=== PATIENT | female | born 1950 | race Caucasian/White ===

== ENCOUNTER → 2017-09-23 16:36 | Outpatient (CLI) | payer MEDICARE, SELFPAY ==
--- NOTE | 2017-09-23 16:39 | CT_ITS ---
STUDY: CT CHEST WITH CONTRAST REASON FOR EXAM: Female, 66 years old. RADIATION DOSAGE (If Supplied By Facility): CTDIvol = ( 15.06 ) mGy, DLP = ( 714.89 ) mGycm TECHNIQUE: Transaxial imaging was performed following intravenous administration of 100 ml of Isovue 300 contrast material. Individualized dose optimization techniques were used for this CT. COMPARISON: None. FINDINGS: : TRACHEA, THYROID, ESOPHAGUS: No tracheomalacia,stricture or wall thickening. Thyroid and esophagus are normal CARDIOVASCULAR SYSTEM:The thoracic aorta is normal with no aneurysm, dissection or developmental anomalies. The pulmonary trunk and the left and right pulmonary arteries and their lobar and segmental branches do not show any abnormal and persistent filling defects in them. There is therefore no evidence of pulmonary embolism. The heart is normal. There are no venous anomalies SONJA AND LYMPH NODES: No hilar masses and no mediastinal, hilar, axillary or supraclavicular adenopathy LUNGS, LOW-ATTENUATION: Centrilobular emphysematous changes in both upper. Paraseptal emphysematous changes in both apices. LUNGS, HIGH ATTENUATION: The 8 mm nodular density in the right middle lobe seen on the last examination of August 09, 2016 has increased in size to 1.5 cm. 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 The lesion has a slightly nodular contour. Two 4.7 and 5.2 mm nodules are in the right lower lobe. An 8.5 mm nodule is also seen in the right lower lobe. Two 4 mm nodules are in the right upper lobe a 6 mm subpleural nodule is in the left lower lobe. LUNGS, MOSAIC/CRAZY PAVING: Not evident PLEURA AND CHEST WALL: No plural effusions, pneumothoraces,rib fractures or any osteolytic/osteoblastic changes . The soft tissue chest wall including the breasts are normal UPPER ABDOMEN: Unremarkable . CT/Chest WITH Contrast IMPRESSION: An 8 mm nodule in the right middle lobe seen in the last examination of August 09, 2016 has doubled in size to 1.5 cm in today's study. 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 Other small subcentimeter nodules in both lungs also seen previously have not changed. N.B. : Tre Naidu, confirmed on 09/24/2017 22:27:32 (ET) that the referring physician received the results and did not require a verbal consultation. Electronically Signed: Vasu MooneyJayce, at 1:31 EDT Tel , Service support , N.B. : Tre Naidu, confirmed on 09/24/2017 22:27:32 (ET) that the referring physician received the results and did not require a verbal consultation.
[2017-09-23 16:55] LABS: CREATININE FINGERSTICK 0.9 mg/dL (0.55-1.02); EGFR FINGERSTICK > 60.0000 mL/min (>60)
== END ==
PROVIDERS: Family Provider Nurse Practitioner; PCP Nurse Practitioner; Visit Provider Nurse Practitioner
DX: R91.1 Solitary pulmonary nodule (principal)
CPT/HCPCS: 71260; Q9967

== ENCOUNTER → 2017-10-07 08:22 | Outpatient (CLI) | payer MEDICARE, SELFPAY ==
--- NOTE | 2017-10-07 07:00 | PET_ITS ---
EXAMINATION: FDG PET/CT INDICATIONS: A 66-year-old female with reported history of carcinoma of the breast presenting for restaging examination and evaluation of pulmonary nodularity. COMPARISON EXAMINATION: CT of the chest report dated 09/23/17 TECHNIQUE: Following the intravenous administration of 15.67 mCi of F-18 deoxyglucose via the right wrist, multiplanar image acquisitions of the neck, chest, abdomen and pelvis to level of mid thigh, obtained at one hour post radiopharmaceutical administration contemporaneously interpreted with the current CT of the neck, chest, abdomen and pelvis to level of mid thigh, dated 10/07/[address] of the chest report dated 09/23/17 reveal: SERUM GLUCOSE LEVEL: 93 mg/dl. HEIGHT: 63 inches. WEIGHT: 225 lbs. FINDINGS: 1. There is no quantitative scintigraphic evidence of abnormal increased glucose metabolism within the context of the right hemithorax pulmonary parenchyma to correlate with structural changes noted on review of CT of the thorax dated 09/23/2017. 2. Normal physiologic distribution of the radiopharmaceutical is apparent in the hepatic and splenic parenchyma, both renal units, bladder and visualized intestinal tract. The visualized portion of the cerebral cortex demonstrate symmetric and preserved glucose metabolism. Diffuse radiopharmaceutical concentration is noted in all four quadrants of the abdomen and pelvis. Prominent glucose concentration appears evident in the lower perineum which appears contiguous to apparent placement. Pertinent CT findings are as follows: CHEST: There is atherosclerotic calcification defined in the thoracic aorta without evidence of dilatation-aneurysm formation. Coronary arterial calcification is observed. Apparent postsurgical change is manifest within the left breast. Subcentimeter bilateral axillary soft tissue densities are non-glucose avid. Centrilobular emphysematous change is noted in the bilateral upper lung zones. ABDOMEN AND PELVIS: There is atherosclerotic calcification defined in the abdominal aorta without evidence of dilatation-aneurysm formation. Pelvic arterial calcification is observed. The uterus appears surgically absent. Right-left inguinal soft tissue densities with fatty hilus formation are ametabolic. SKELETAL: Degenerative changes are noted in the cervical, thoracic and lumbar spine. Diffuse demineralization is noted throughout the axial skeletal structures. PET/PET/CT Tumor Base -Thigh Init IMPRESSION: 1. NEGATIVE EXAMINATION. There is no definitive quantitative scintigraphic evidence of recurrent-metastatic/viable neoplasm. 2. There is no quantitative scintigraphic evidence of abnormal increased glucose metabolism within the context of the right lower anteromedial hemithorax pulmonary parenchyma, right middle lobe to correlate with a non-calcified approximately 14.5-mm density noted on review of CT of the thorax dated 10/07/17. 3. Anatomic stability may be ensured in the ametabolic right hemithorax pulmonary parenchymal density with repeat CT of the thorax in three months. (Alison, Seminars in Thoracic and Cardiovascular Surgery 14:292, 2002). Electronic Signature Hossein Oneill D.O. Electronically Signed: Hossein Oneill DO at 23:10 EDT Tel , Service support ,
== END ==
PROVIDERS: Family Provider Nurse Practitioner; PCP Nurse Practitioner; Visit Provider Nurse Practitioner
DX: R91.8 Other nonspecific abnormal finding of lung field (principal); Z85.3 Personal history of malignant neoplasm of breast
CPT/HCPCS: 78815; A9552

== ENCOUNTER → 2017-11-18 13:28 | Outpatient (CLI) | payer MEDICARE, SELFPAY | PROVIDERS: Family Provider Nurse Practitioner; PCP Nurse Practitioner; Referring Provider Internal Medicine Medical Oncology; Visit Provider Internal Medicine Medical Oncology | DX: Z12.31 Encounter for screening mammogram for malignant neoplasm of breast (principal) | CPT/HCPCS: 77063; 77067 ==

== ENCOUNTER → 2017-12-17 09:40 | Outpatient (CLI) | payer MEDICARE, SELFPAY ==
--- NOTE | 2017-12-17 09:42 | RAD_ITS ---
STUDY: X-RAY - RIGHT KNEE REASON FOR EXAM: Female, 67 years old. Pain TECHNIQUE: 4 view(s) of the knee. COMPARISON: 2014 FINDINGS: Normal visualized distal femur. Normal visualized proximal tibia and fibula. Normal proximal tibiofibular articulation. There is mild degenerative arthrosis of the medial femorotibial compartment. Normal lateral femorotibial compartment. There is mild degenerative arthrosis of the patellofemoral articulation. The soft tissue structures are unremarkable. RAD/Knee 4 or More Views IMPRESSION: Degenerative arthrosis. Electronically Signed: Abiodun Amos MD at 16:48 EDT , Service support ,
== END ==
PROVIDERS: Family Provider Nurse Practitioner; PCP Nurse Practitioner; Visit Provider Nurse Practitioner Gerontology
DX: M25.561 Pain in right knee (principal)
CPT/HCPCS: 73564

== ENCOUNTER → 2018-02-12 07:05 | Outpatient (CLI) | payer MEDICARE, SELFPAY ==
--- NOTE | 2018-02-12 07:09 | CT_ITS ---
STUDY: CT CHEST WITHOUT CONTRAST REASON FOR EXAM: Female, [address] of the chest. PET scan normal. Breast cancer 5 years ago with left lumpectomy. RADIATION DOSAGE (If Supplied By Facility): CTDIvol = ( 20.15 ) mGy, DLP = ( 770.34 ) mGycm TECHNIQUE: Transaxial imaging was performed without the administration of intravenous contrast material. Individualized dose optimization techniques were used for this CT. COMPARISON: CT chest August 09, 2016. CT chest September 23, 2017. CT chest December 16, 2012. PET CT scan October 07, 2017. FINDINGS: Noncalcified mildly lobulated right middle lobe lung nodule measuring 1.5 x 1.3 cm, using lung windows, on the present scan, 1.2 x 1.1 cm on the study of September 2017 and only 0.7 x 0.6 cm on the study of August 2016. A nodule was not present on the study of December 16, 2012. Diffuse emphysematous changes. The heart is not enlarged. Coronary artery calcifications. No pericardial effusion. Scattered subcentimeter mediastinal lymph nodes which are not pathologic by size criteria. Normal hilar regions. Normal unenhanced pulmonary arteries. There is atherosclerotic calcification of the thoracic aorta. Normal osseous structures. There is no demonstrated abnormality of the visualized upper abdomen. CT/Chest without Contrast IMPRESSION: Continued increase in the size of a noncalcified right middle lobe lung nodule. No evidence of malignancy on recent PET CT scan. Recommend pulmonary consult. Emphysematous changes. Coronary artery calcifications. Electronically Signed: Dayday Jurado MD at 2:50 EST , Service support ,
== END ==
PROVIDERS: Family Provider Nurse Practitioner; PCP Nurse Practitioner; Referring Provider Internal Medicine Medical Oncology; Visit Provider Internal Medicine Medical Oncology
DX: R91.8 Other nonspecific abnormal finding of lung field (principal)
CPT/HCPCS: 71250

== ENCOUNTER → 2018-04-30 08:32 | Outpatient (CLI) | payer MEDICARE, SELFPAY ==
[2018-04-24 13:56] VITALS: BMI 41.4
[2018-04-30] VITALS (10 sets, daily range): BP systolic 143–211; BP diastolic 65–94; PULSE 75–84; RESP 15–23; TEMP 36.5; O2SAT 98–100; BMI 41.3
--- NOTE | 2018-04-30 | LUNB_PTH ---
PATIENT: ZEINAB HULL LOC: [place] U#:[id number] AGE/SX: 74/F ROOM: RE04/30/[address]: Dr. Guido Hogue MD : 1950 BED: DIS: SPEC #: [id number] RECD: 04/30/18 11:00 STATUS: JIN MEET #: [id number] IAN: 04/30/18 00:[address]: Guido Hogue DEPT: SURGICAL PATHOLOGY RECD BY: Espinoza Hunt ENTERED: 04/30/18 11:01 SP TYPE: LUNG BX OTHR DR: Sandra Degroot, ELECTROCARDIOGRAPHIC TECHNICIAN-C Tissues: Lung, NOS Procedures: Pap Stain (control) Special Stain Group II Surgery Specimen Level IV Diff Quik Stain (control) HEADER OPERATION: CT-guided lung biopsy PRE-OP DIAGNOSIS: Right middle lobe lung nodule TISSUE SUBMITTED: Right middle lobe lung nodule MICROSCOPIC DIAGNOSIS CT-guided fine needle aspiration, right middle lobe lung nodule (smears): Abundant mucous material with atypical epithelioid cells. See comment. AM:negrito 05/05/18 COMMENT The specimen is evaluated at the time of lung biopsy by Dr. Chadwick. Immediate Evaluation: Pass #1 - Abundant mucinous material with atypical epithelioid cells. Pass #2 - Abundant mucinous material with atypical epithelioid cells. The cell block contains benign fibrous tissue, benign lung parenchyma and benign bronchial/respiratory epithelial cells. The smears contain abundant mucoid material with atypical epithelial cell suspicious for a malignant process. Reference is made to the patient's history of breast cancer, grade 1, from 2013. Clinical correlation is necessary. Case has been reviewed in consultation with Dr. Hernandez who concurs with the above diagnosis. IDC:CE MICROSCOPIC DESCRIPTION Slides are reviewed. GROSS DESCRIPTION Received in fixative is one container labeled with the patient's name and designated lung mass. The specimen consists of multiple minute fragments of reddish-martinez soft tissue that in aggregate measure 0.1 x 0.1 x <0.1 cm. The specimen is submitted for cell block preparation. / AM:negrito 04/30/18 TC:? CPT: 87524, 48854, 11461
--- NOTE | 2018-04-30 08:35 | CT_ITS ---
PROCEDURE: CT GUIDED CORE NEEDLE BIOPSY OF A right upper lobe LUNG LESION INDICATION: Female, 67 years old. Right upper lobe lung nodule. History of breast cancer. PHYSICIAN: Dr. Adams. CONSENT: Written informed consent was obtained having explained the risks, benefits and alternatives in detail with the patient who accepted the risks and agreed to proceed. Laboratory review and clinical assessment was performed. CONSCIOUS SEDATION PROTOCOL: The Drugs used were: 2 mg Versed, IV., and 50 mcg Fentanyl, IV. The sedation time was: 27 minutes. Conscious sedation was started at 9:39 AM and terminated at 10:06 AM The conscious sedation protocol was independently monitored. RADIATION DOSAGE (If Supplied By Facility): CTDIvol = ( 16.67 ) mGy, DLP = ( 550.68 ) mGycm Individualized dose optimization techniques were used for this CT. TECHNIQUE: The patient was placed in the supine position. A noncontrast CT was performed to localize the lesion in the right upper lobe . The skin surface was prepped and draped in a sterile fashion. 1% lidocaine was used for local anesthesia. Using CT guidance, a 19-gauge coaxial biopsy device was advanced to the periphery of the lesion. A total of 3 core specimens were obtained. The specimens were placed in a formalin solution. A post procedure CT demonstrated no adverse sequelae or pneumothorax. The patient tolerated the procedure well without adverse event. A negative biopsy does not exclude malignancy. Further imaging or clinical followup based on patient condition and degree of clinical suspicion for malignancy. Suggest rebiopsy, if biopsy results do not match with clinical scenario. CT/Biopsy/Inj or Needle Placement IMPRESSION: 1. CT directed core needle biopsy of the right upper lobe lung nodule using CT image guidance with image documentation as described. Pathology results are pending. 2. Conscious Sedation protocol utilized with independent monitoring. Electronically Signed: Xu Adams MD at 13:25 EST , Service support ,
[2018-04-30 09:00] LABS: Absolute Lymphocyte Count 1.94 X10^3/ul (0.83-4.51); Absolute Neutrophil Count 4.3 X10^3/uL (2.0-7.7); Basophil# 0.04 X10^3/uL; Basophil% 0.5 % (0-1); Eosinophil# 0.39 X10^3/uL; Eosinophils% 5.3 % (0-5); Hematocrit 44.3 % (37-47); Hemoglobin 14.9 g/dl (12.0-15.0); Lymphocyte # 1.94 X10^3/ul (4.0); Lymphocyte % 26.3 % (19-41); Mean Corp Hgb Conc 33.6 g/gl (32-36); Mean Corpuscular Hgb 32.8 pg (27.0-32.0); Mean Corpuscular Volume 97.6 fL (81-99); Mean Platelet Vol. 9.1 fl (6.2-12.0); Monocyte# 0.69 X10^3/uL; Monocyte% 9.4 % (0-10); Neutrophil # 4.31 X10^3/uL (2.7-7.7); Neutrophil % 58.5 % (47-70); Platelet Count 300 K/mm3 (150-450); RBC Distribution Width CV 12.9 % (11.6-14.6); RBC Distribution Width SD 45.8 fl (35.1-43.9); Red Blood Count 4.54 M/mm3 (4.2-5.4); White Blood Count 7.4 K/mm3 (4.4-11.0)
[2018-04-30 09:01] LABS: POSITIVE COUNT NO; POSITIVE DIFFERENTIAL NO; POSITIVE MORPHOLOGY NO
[2018-04-30 09:09] LABS: Partial Thromboplast Time 27.5 Seconds (24.1-36.2); Prothrombin Time (Protime)PT. 12.9 SECONDS (11.7-14.9)
[2018-04-30] MEDS: Midazolam 2 MG/2 ML Syringe IV (09:39)
[2018-04-30] MEDS: fentaNYL 100 MCG/2 ML Ampul IV (09:41)
--- NOTE | 2018-04-30 10:02 | RAD_ITS ---
STUDY: X-RAY CHEST REASON FOR EXAM: Female, 67 years old. 2 hour postright lung biopsy radiograph. TECHNIQUE: AP inspiration and expiration views. COMPARISON: Comparison is made with prior study done earlier in the day. FINDINGS: There is no evidence of pneumothorax on the 2 hour post right lung biopsy radiograph. RAD/Chest Insp/Exp 2 View IMPRESSION: No evidence of pneumothorax. The patient is asymptomatic. Electronically Signed: Xu Adams MD at 13:07 EST , Service support ,
--- NOTE | 2018-04-30 10:20 | RAD_ITS ---
STUDY: X-RAY CHEST REASON FOR EXAM: Female, 67 years old. Immediate postright lung biopsy radiograph. TECHNIQUE: AP inspiration and expiration views. COMPARISON: Comparison is made with prior study dated July 09, 2016. FINDINGS: There is no evidence of pneumothorax on the immediate post right lung biopsy radiographs. Nodular density is seen in the right midlung. Hyperinflation. RAD/Chest Insp/Exp 2 View IMPRESSION: No evidence of pneumothorax on the immediate post right lung biopsy radiographs. Electronically Signed: Xu Adams, at 11:26 EST , Service support ,
--- OUTSIDE RECORDS SUMMARY | 2018-07-02 03:35 | XMS RPT_ITS | Continuity of Care Document ---
:1950 Author Organization [facility] Address [address] [place] [address] Phone Care Team Providers Name Role Phone Zane SALLYSandra Unavailable Thomas Short Unavailable Derek Mcgee Unavailable Nancy Marcial Unavailable Unavailable Nai Trevizo LPN Unavailable Unavailable Christel Pantoja Unavailable Unavailable Unavailable Unavailable Problems Name Dates Details Abnormal CT of the chest (R93.8, 793.2) Status: Active Abnormal glucose tolerance test (GTT) (R73.02, 790.22) Status: Active Arthralgia (M25.50, 719.40) Comments: back and knees take tramadol Status: Active Back pain (Renamed from Back ache) (M54.9, 724.5) Comments: mild DDD,[facility] Status: Active BMI 40.0-44.9, adult (Z68.41, V85.41) Status: Active BMI 40.0-44.9, adult (Z68.41, V85.41) Status: Active BMI 40.0-44.9, adult (Z68.41, V85.41) Status: Active Breast cancer (C50.919, 174.9) Comments: lumpectomy and lymph node dissection seeing KENNEL KEEPER Farzaneh Medina on anastrazole, saw Scot in past, now seeing Mykel has lung nodule CT to be repeated Aug or Sept Status: Active Connective tissue disease (M35.9, 710.9) Status: Active COPD (chronic obstructive pulmonary disease) (J44.9, 496) Comments: with emphysemous changes not using spiriva, because insurance wont cover Status: Active Cough (R05, 786.2) Comments: chronic still smoking Status: Active E. 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) Comments: with blebs, not taking symbicort Bevespi helps giving samples for now, adding spirometry, Walk and overnight pulse ox Status: Active H/O lumpectomy (Z98.89, V45.89) Comments: left breast, radiation in 4 weeks, seeign Rickey Status: Active Hidradenitis suppurativa (L73.2, 705.83) Comments: groin, will treat with topicol clindamycin 1% bid Status: Active Hypercholesterolemia (E78.00, 272.0) Comments: stable on simvastatin Status: Active Hyperglycemia (R73.9, 790.29) Comments: prediabetes A1c 6.2, at one time, now 5.8, will have her modify diet less sugar and carbs and monitor Status: Active Hypertension (I10, 401.9) Comments: increase in BP 220/101, restarted propranolol on 12-17-17 Status: Active Hypertension, benign (I10, 401.1) Comments: she is monitoring at home, stable on hydrochlorathiazide, taking lasix with wt gainwas on lisinopril but K problem Status: Active Immunocompromised (D84.9, 279.3) Comments: on plaquenil Status: Active Knee pain, right (M25.561, 719.46) Comments: uses tramadol, refused PT now going for water aerobics on occation add knee brace for stablizaiton will send to [facility], going to [facility]. Status: Active Lower urinary tract infection (N39.0, 599.0) Comments: Klebsiella, 12-27 Status: Active Lung nodule < 6cm on CT (R91.1, 793.11) Comments: new rt lower 4.5mm lung nodule ordered by Dr. Lugo repeat in October of 2016 CT chest without contrast Status: Active Lung nodules (R91.8, 793.19) Comments: managed by Pra, to get biopsy which will be CT led per Pra Status: Active Lupus (L93.0, 695.4) Comments: was seeing rheum now not going Status: Active Need for prophylactic vaccination and inoculation against influenza (Z23, V04.81) Status: Active Need for prophylactic vaccination and inoculation against influenza (Renamed from Need for immunization against influenza) (Z23, V04.81) Status: Active Osteoarthritis (M19.90, 715.90) Comments: prolia q [address] 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) Comments: on plaquenil but not taking methotrexate regularly and folic acid and Vit C, and prednisone prn per Velenkiusing tramadol prn Status: Active Prediabetes (R73.03, 790.29) Status: Active Right leg swelling (M79.89, 729.81) Comments: short term lasix Status: Active Smoker (F17.200, 305.1) Comments: with emphysema Status: Active Smoking addiction (F17.200, 305.1) Status: Active SOB (shortness of breath) (R06.02, 786.05) Comments: has seen Loniilia in the past worsening of SOB Status: Active Swelling of right knee joint (M25.461, 719.06) Status: Active Tremor (R25.1, 781.0) Comments: essential vs other proproanolol 40mg bid continue decreased to once a day now will DC it since on [id number] ago started tremor,improvement with propraololwas using cane and gait disturbance now not, doing warm water exercises Status: Active UI (urinary incontinence) (R32, 788.30) Status: Active Unspecified Diagnosis Status: Active Urinary frequency (R35.0, 788.41) Status: Active Vaginal yeast infection (B37.3, 112.1) Status: Active Vitamin D deficiency (E55.9, 268.9) Comments: getting prolia per Dr. Linda recent Ca normal checking Vit D, on OTC calcium with D Status: Active Yeast infection of the vagina (B37.3, 112.1) Status: Active Medications Name Dates Details Anastrozole 1 MG Oral Tablet 1 (one) Tablet daily for 360 days Refills: 0 Ordered:01-Jan-2017 Mireyagilmerjamaal ZAVALA Sandra Tamayo SALLY Sandra Lockwood Start : 01-Jan-2017 Active Comments:Dr Dionna Osullivan Aerosphere 9-4.8 MCG/ACT Inhalation Aerosol 2 (two) Puff bid for 30 days Quantity: 2 {Inhaler} Refills: 3 Ordered:23-Sep-2017 Mireyagilmerjamaal ZAVALA Sandra Tamayo SALLY Sandra Lockwood Start : 23-Sep-2017 Active Comments:L Biotin 1000 MCG Oral Tablet 1 qd (1000 MCG) Active Calcium with Vitamin D 600 mg 1 tablet daily Active Carbidopa-Levodopa 25-100 MG Oral Tablet 3 (three) Tablet daily for 90 days Refills: 0 Ordered:14-May-2017 Zane SALLY Sandra Tamayo CNP Sandra Lockwood Start : 14-May-2017 Active Comments:Dr Ahumada but cant get to office, will give one month supply but need to see Zita Diflucan 150 MG Oral Tablet 1 (one) Tablet PO Daily Q 72 h x 2 doses for 0 days Quantity: 2 {Tablet} Refills: 1 Ordered:25-Dec-2017 Zane SALLY Sandra Tamayo CNP Sandra Lockwood Start : 25-Dec-2017 Active Furosemide 20 MG Oral Tablet 1 (one) Tablet daily x 2 days for 0 days Quantity: 15 {Tablet} Refills: 0 Ordered:10-Feb-2018 Zane SALLY Sandra Tamayo SALLY Sandra Lockwood Start : 10-Feb-2018 Active HydroCHLOROthiazide 12.5 MG Oral Tablet 2 (two) Tablet daily for 0 days Quantity: 60 {Tablet} Refills: 6 Ordered:25-Dec-2017 Zane ZAVALA, Sandra Munguia CNP Start : 25-Dec-2017 Active Lasix 20 MG Oral Tablet 1 (one) Tablet daily prn for 0 days Quantity: 30 {Tablet} Refills: 0 Ordered:01-Jan-2017 Zane ZAVALA, Sandra Munguia CNP Start : 01-Jan-2017 Active Plaquenil 200 MG Oral Tablet 2 (two) Tablet daily for 0 days Quantity: 60 {Tablet} Refills: 0 Ordered:01-Jan-2017 Zane ZAVALA, Sandra Munguia CNP Start : 01-Jan-2017 Active Probiotic Oral Capsule 1 (one) Capsule Capsule daily for 0 days Quantity: 30 {Capsule} Refills: 0 Ordered:10-Feb-2018 Nancy Marcial Start : 25-Dec-2017 Active VITAMIN C ER, 500MG (Oral Tablet Extended Release) 1 daily (500 MG) Active Vitamin D3 2000 UNIT Oral Capsule 1 (one) Capsule daily for 0 days Quantity: 30 {Capsule} Refills: 0 Ordered:01-Jan-2017 Zane ZAVALA, Sandra Munguia CNP Start : 01-Jan-2017 Active Amoxicillin-Pot Clavulanate 875-125 MG Oral Tablet 1 (one) Tablet bid for 7 days Quantity: 14 {Tablet} Refills: 0 Ordered:30-Dec-2017 Zane ZAVALA, Sandra Munguia CNP Start : 30-Dec-2017 End : 06-Jan-2018 Inactive AUGMENTIN, 875-125MG (Oral Tablet) 1 (one) Tablet bid for 7 days Quantity: 14 {Tablet} Refills: 0 Ordered:01-Mar-2014 Zane ZAVALA, Sandra Munguia CNP Start : 01-Mar-2014 End : 08-Mar-2014 Inactive BACTRIM DS, 800-160MG (Oral Tablet) 1 (one) Tablet Tablet bid for 10 days Quantity: 20 {Tablet} Refills: 0 Ordered:10-Sep-2015 CAPRI Manning Start : 06-Sep-2015 End : 10-Sep-2015 Inactive CEFADROXIL, 500MG (Oral Capsule) 1 (one) Capsule bid for 7 days Quantity: 14 {Capsule} Refills: 0 Ordered:24-Feb-2014 Zane ZAVALA, Sandra Munguia CNP Start : 24-Feb-2014 End : 03-Mar-2014 Inactive Cefdinir 300 MG Oral Capsule 1 (one) Capsule Capsule bid for 7 days Quantity: 14 {Capsule} Refills: 0 Ordered:13-Jul-2016 Sanrda Degroot CNP, CNP, Mary E Start : 13-Jul-2016 End : 20-Jul-2016 Inactive Cipro 500 MG Oral Tablet 1 (one) Tablet bid for 7 days Quantity: 14 {QS} Refills: 0 Ordered:14-May-2017 Sandra Degroot CNP, CNP, Mary E Start : 08-May-2017 End : 14-May-2017 Inactive Clindamycin Phosphate 1 % External Solution 1 (one) Application Application bid for 0 days Quantity: 1 {Bottle} Refills: 0 Ordered:17-Dec-2017 Irish Love LPN Start : 14-May-2017 End : 17-Dec-2017 Inactive PredniSONE 10 MG Oral Tablet 1 (one) Tablet one daiy prn for lupus flare for 30 days Quantity: 30 {Tablet} Refills: 0 Ordered:06-Sep-2017 Sandra Degroot CNP, CNP, Mary E Start : 06-Sep-2017 End : 06-Oct-2017 Inactive Symbicort 160-4.5 MCG/ACT Inhalation Aerosol 2 (two) Puff Puff bid for 0 days Quantity: 3 {Puff} Refills: 0 Ordered:04-Sep-2016 Sandra Degroot CNP, CNP, Mary E Start : 04-Sep-2016 End : 04-Sep-2016 Inactive Tamiflu 75 MG Oral Capsule 1 (one) Capsule Capsule bid for 5 days Quantity: 10 {Capsule} Refills: 0 Ordered:11-Jul-2016 Sandra Degroot CNP, CNP, Mary E Start : 09-Jul-2016 End : 14-Jul-2016 Inactive Tessalon Perles 100 MG Oral Capsule 1 (one) Capsule tid prn cough for 0 days Quantity: 30 {Capsule} Refills: 1 Ordered:17-Dec-2017 Irish Love LPN Start : 06-Sep-2017 End : 17-Dec-2017 Inactive TOPICORT, 0.25% (External Cream) 1 (one) Cream Cream bid for 0 days Quantity: 1 {Tube} Refills: 0 Ordered:10-Sep-2015 CAPRI Manning Start : 23-Aug-2015 End : 10-Sep-2015 Inactive Comments:Large tube twice daily x 2 weeks for body TraMADol HCl 50 MG Oral Tablet 1 Tablet three times daily, as needed for 30 days Quantity: 120 {Tablet} Refills: 0 Ordered:22-Jul-2017 Zane SALLY, Sandra NOÉmayra SALLY, Sandra Lockwood Start : 22-Jul-2017 End : 21-Aug-2017 Inactive Comments:Medication taken as needed. one hundred twenty Polyarthropathy M13.0Oarrs run ASPIR-81, 81MG (Oral Tablet Delayed Release) [address] daily for 0 days Quantity: 30 {Tablet_DR} Refills: 3 Ordered:23-Aug-2015 Nai Trevizo LPN Start : 21-Oct-2012 End : 23-Aug-2015 Discontinued CHLORHEXIDINE GLUCONATE, 4% (External Liquid) 1 (one) Liquid Liquid daily x 5 days then qwk x 4 weeks for 0 days Quantity: 1 {Bottle} Refills: 1 Ordered:20-Sep-2015 Nai Trevizo LPN Start : 06-Sep-2015 End : 20-Sep-2015 Discontinued Comments:Wash daily x 5 days leave on 2 min, then thoughly wash off, x 5 days then weekly x 4 weeks Dispense stock amount CYCLOBENZAPRINE HCL, 10MG (Oral Tablet) 1 Tablet daily for 0 days Quantity: 30 {Tablet} Refills: 3 Ordered:23-Aug-2015 Nai Trevizo LPN Start : 21-Oct-2012 End : 23-Aug-2015 Discontinued DETROL LA, 2MG (Oral Capsule Extended Release 24 Hour) 1 daily (2 MG) Start : 21-Oct-2012 End : 24-Feb-2014 Discontinued Ergocalciferol 86384 UNIT Oral Capsule 1 Capsule twice weekly for 0 days Quantity: 24 {Capsule} Refills: 0 Ordered:29-Nov-2015 Nai Trevizo LPN Start : 01-Mar-2015 End : 29-Nov-2015 Discontinued Fluconazole 150 MG Oral Tablet 1 (one) Tablet one today and repeat in 2 days if not better for 0 days Quantity: 2 {Tablet} Refills: 0 Ordered:14-May-2017 Christel Pantoja Start : 08-May-2017 End : 14-May-2017 Discontinued LISINOPRIL, 10MG (Oral Tablet) 1 two times daily (10 MG) Start : 21-Oct-2012 End : 24-Feb-2014 Discontinued MELOXICAM, 15MG (Oral Tablet) 1 Tablet daily for 0 days Quantity: 60 {Tablet} Refills: 3 Ordered:23-Aug-2015 Jose Guadaluperb ROSA Nai Start : 21-Oct-2012 End : 23-Aug-2015 Discontinued METHOTREXATE, 2.5MG (Oral Tablet) 1 (one) Tablet 8 tab once a week for 360 days Refills: 0 Ordered:24-May-2015 Jose Guadaluperb ROSA, Nai Start : 14-Jul-2014 End : 24-May-2015 Discontinued Comments:Dr epperson MUPIROCIN, 2% (External Ointment) 1 (one) Ointment Ointment daily for 0 days Quantity: 1 {Tube} Refills: 0 Ordered:03-Sep-2014 Yunier Trevizo LPNa Start : 25-Aug-2014 End : 03-Sep-2014 Discontinued Comments:Apply small amt to end of Qtip apply to each nares, umbilicus, and rectum daily x 5 days PredniSONE 10 MG Oral Tablet 1 Tablet 1bid x 3 days 1 daily x 3 days 1/2 x 3 days for 0 days Quantity: 12 {Tablet} Refills: 0 Ordered:01-Jan-2017 Santhosh LEE Nai Start : 29-Oct-2016 End : 01-Jan-2017 Discontinued Comments:with food PROLIA, 60MG/ML (Subcutaneous Solution) 1 injection q 6 months (60 MG/ML) End : 01-Jan-2017 Discontinued Propranolol HCl 40 MG Oral Tablet 1 Tablet two times daily for 0 days Quantity: 180 {Tablet} Refills: 3 Ordered:10-Feb-2018 Nancy Marcial Start : 25-Dec-2017 End : 10-Feb-2018 Discontinued ROPINIRole HCl 0.5 MG Oral Tablet 1 Tablet three times daily for 0 days Quantity: 120 {Tablet} Refills: 3 Ordered:01-Jun-2016 Slayadira LEE Nai Start : 30-Dec-2012 End : 01-Jun-2016 Discontinued Comments:Dr Ahumada Simvastatin 40 MG Oral Tablet 1 Tablet qod for 60 days Quantity: 30 {Tablet} Refills: 3 Ordered:14-May-2017 Christel Pantoja Start : 08-Feb-2017 End : 14-May-2017 Discontinued SPIRIVA HANDIHALER, 18MCG (Inhalation Capsule) 1 Capsule as needed for 0 days Quantity: 3 {Capsule} Refills: 3 Ordered:06-Sep-2015 Nai Trevizo LPN Start : 23-Aug-2015 End : 06-Sep-2015 Discontinued Comments:Medication taken as needed. VESIcare 5 MG Oral Tablet 1 Tablet daily for 0 days Quantity: 30 {Tablet} Refills: 3 Ordered:29-Feb-2016 Nai Trevizo LPN Start : 23-Nov-2014 End : 29-Feb-2016 Discontinued VITAMIN D3, 2000UNIT (Oral Tablet) 1 (one) Tablet Tablet daily for 0 days Quantity: 30 {Tablet} Refills: 0 Ordered:23-Aug-2015 Nai Trevizo LPN Start : 13-May-2015 End : 23-Aug-2015 Discontinued Allergies and Adverse Reactions Name Dates Details No Known Allergies (Allergy) Onset: 14-Jul-2014 Status: Active No Known Drug Allergies (Allergy) Onset: 21-Oct-2012 Status: Active Past Medical History Name Dates Details Abdominal swelling (R19.00, 789.30) Comments: has had complete hyst but increasing abdominal swellinghistory of 27 pound tumor in past abdomen Status: Inactive as of 10-Sep-2015 Abnormal urine (R82.90, 791.9) Status: Inactive as of 01-Jan-2017 BMI 39.0-39.9,adult (Z68.39, V85.39) Status: Inactive as of 01-Jan-2017 BMI 39.0-39.9,adult (Z68.39, V85.39) Status: Inactive as of 17-Dec-2017 BMI 40.0-44.9, adult (Z68.41, V85.41) Status: Inactive as of 01-Jan-2017 Breast cancer (174.9) Status: Inactive as of 10-Sep-2015 Cellulitis (L03.90, 682.9) Comments: history of MRSA of rt leg improved with vanc Status: Resolved as of 01-Jan-2017 Cellulitis of trunk, unspecified site of trunk (L03.319, 682.2) Comments: left flank area cellulitis, positive MRSA, recieved September 15, 7 days Status: Inactive as of 01-Jan-2017 Elevated sed rate (R70.0, 790.1) Comments: 50 with UTI, elevated complement C3 ? lupus flare? will reevaluate on Saturday via phone call and repeat if not better Status: Inactive as of 01-Jan-2017 Elevated WBC count (D72.829, 288.60) Comments: ? from UTI vs other Status: Inactive as of 01-Jan-2017 Encounter for Medicare annual wellness exam (Z00.00, V70.0) Status: Inactive as of 10-Sep-2015 Encounter for routine adult medical exam with abnormal findings (Z00.01, V70.0) Status: Inactive as of 10-Sep-2015 Flat foot (M21.40, 734) Status: Inactive as of 01-Jan-2017 H. influenzae infection (A49.2, 041.5) Status: Inactive as of 01-Jan-2017 Hyperkalemia (E87.5, 276.7) Comments: repeat in 3 months Status: Inactive as of 01-Jan-2017 MRSA (methicillin resistant Staphylococcus aureus) (A49.02, 041.12) Comments: Positive again wound left side and positive culture nares currently on bactrim, will send for vanco In [place] #3days of IV vanco for MRSA left inner thigh had bactrim and cefdinir then, around Feb 2015 Status: Inactive as of 10-Sep-2015 Osteoarthritis (M19.90, 715.90) Status: Inactive as of 10-Sep-2015 Positive MIMI (antinuclear antibody) (R76.8, 795.79) Comments: ezequiel Rivers plaquinelhas pos MIMI Status: Inactive as of 01-Jan-2017 Rash (R21, 782.1) Comments: try hydrocordone creamfrom shoulders down after being in pool that switched to bromine Status: Inactive as of 01-Jan-2017 Swelling (Renamed from Part of body swollen) (R60.9, 782.3) Comments: wt down 5 lbs with 5 days of lasix Status: Inactive as of 01-Jan-2017 Unspecified Diagnosis Status: Inactive as of 10-Sep-2015 Unspecified Diagnosis Status: Inactive as of 10-Sep-2015 Unspecified Diagnosis Status: Inactive as of 10-Sep-2015 Procedures Procedure Dates Details Breast Mass; Local Excision Completed Comments: 10/18- Dr Ellison Salpingectomy; Unilateral Completed Comments: 2010- medical biller/onc Date Value Details 23-Jan-2018 Oncology Visit Report Result: Comments: See Note; NOTES: [facility] [address] [place] [address] OFFICE VISIT Date of Service: 01/23/18 1611 MR#: [id number] Acct: [id number] Name: TISH MALAVE ep #: [id number] : 1950 From: Guido Hogue MD Age/Sex: 67/F Location: [facility] Status: Signed Subjective - Date of Service Date of Service:: 01/23/18 - Chief Complaint F/u for Left Breast cancer. - History of Present Illness Ms. Tish Malave is a 66-year-old woman with a past medical history positive for hypertension, COPD, inflammatory arthritis and Parkinson's disease who underwent a routine m ammogram on 09/23/2012. A grouping of calcifications in the upper left breast near the 12 o'clock position was identified. A stereotactic core biopsy of one of those areas returned positive for ductal ca rcinoma in situ with focal area of microinvasive carcinoma. Subsequently she underwent a left breast lumpectomy and sentinel lymph node biopsy under the care of Dr. Deandra Ellison on 11/12/2012. Pathology pro robby grade 1 invasive ductal carcinoma; DCIS was present. The tumor measured 0.4 cm and 3/3 lymph nodes were negative for metastatic disease and surgical margins were uninvolved. Biology proved ER positi ve (95%) WA positive (5%) and HER2-griffin nonamplified by FISH. She completed 28 fractions of radiation therapy to the left breast with an additional 8 fractions to scar from 12/23/2012 through 02/21/2013 u nder the care of Dr. Clarke. She began anastrozole 02/23/2013. Baseline DEXA scan is normal. However, scan in 10/2014 revealed osteopenia. She received Prolia from 10/28/2014 to 11/06/2016. CT chest on 2017 showed bilateral lung nodules. She remains on Anastrozole, comes in for follow up. She had CT on 2017 which showed increase in RML nodule, PET/CT on 10/07/2017 showed no hypermetabolic activi ty. - Past Medical/Social History Past Medical History Past Medical History: Arthritis,Asthma,COPD,Hypertension,Lupus, Osteopenia Other Past Medical History: MIXED CONNECTIVE TISSUE DISEASE INFLAMATO RY POLYARTHROPATHY PARKINSON'S Cancer: Breast cancer Past Surgical History Surgical: Cholecystectomy,Lumpectomy,Tubal ligation Other Surgical History: REMOVAL OF STOMACH TUMOR R ANKLE FRACTURE REPAIR X 2 Family History Paternal Past Medical History: Heart disease,Hyperlipidemia Maternal Past Medical History: Alzheimer's disease,Anemia,Hypertension,Thyroid disease Social History Smoking Status C urrent every day smoker Review of Systems Constitutional:: Denies: Fever, Sweats, Weight loss, Appetite change, Chills Cardiovascular:: Denies: Chest pain, Palpitations, Dyspnea on exertion, Orthopne a, PND, Shortness of breath Respiratory: Denies: Cough, Hemoptysis, Shortness of Breath, Wheezing Gastrointestinal:: Denies: Abdominal pain, Nausea, Vomiting, Diarrhea, Constipation, Hematochezia Genito urinary: Denies: Dysuria, Hematuria, 15, Flank pain Musculoskeletal:: Denies: Back pain, Myalgia, Arthralgia Skin: Denies: Rash, Skin Changes, Wounds Neurological:: Denies: Headache, Dizziness, Visual c hanges, Tinnitus, Hearing loss Psychiatric: Denies: Anxiety, Depression, Homicidal Ideations, Suicidal Ideations Vital Signs Height 5 ft 3 in Weight: 107.501 kg Weight in Pounds 237.0 lbs Pulse Ox 98 - Physical Exam General: Alert, Oriented x3, No apparent distress HEENT: Atraumatic, PERRLA, EOMI, Normocephalic Oropharynx:: Dry mucosa Neck:: Supple, Trachea midline. Negative for: JVD, bilateral C ardiac:: Regular rate, Regular rhythm, Normal S1, Normal S2. Negative for: Murmur Lungs: Clear to auscultation, Excusion symmetrical. Negative for: Rhonchi, Wheezes Abdomen:: Bowel sounds x 4, Soft, Non -tender, Non-distended. Negative for: Hepatosplenomegaly Extremities:: Negative for: Cyanosis, Edema Neurological: Neuro grossly intact Skin:: Negative for: Lesions, Rash, Petechiae, Ecchymosis Psychiat isela:: Appropriate affect, Euthymic Lymphatics:: Negative for: Cervical lymphadenopathy, Supraclavicular lymphadenopathy, Axillary lymphadenopathy Laboratory Data: Laboratory Tests WBC 10.3 (4.4-11.0) K /mm3 RBC 4.51 (4.2-5.4) M/mm3 Hgb 15.0 (12.0-15.0) g/dl Assessment and Plan Left breast cancer stage I on adjuvant Anastrozole. No evidence of disease. Lung nodules, no activity on PET/CT. Plan is to continue Anastrozole till end of February 2018. Obtain CT chest to assess lung nodules in 3 months. RTC [address] chest. Medications: Prescriptions This Visit Medication Instructions Recorded Primary Care Provider: Sandra Degroot Referring Provider: Deandra Ellison - Problem List (1) Pulmonary nodules/lesions, multiple Status: Chronic (2) History of left breast cancer Status: Chronic Code Visi t Office Visits / Consults: [id number] OV L4 Est 01/23/18 1620 <Electronically signed by Guido Hogue MD> Date Guido Hogue MD Cosigner Sig nature: Date (if applicable) CC: 17-Dec-2017 Knee 4 or More Views Result: Comments: See Note; NOTES: [facility] Services [address] [place] [address] Knee 4 or More Views MR#: [id number] Acct: [id number] Name: TISH MALAVE Rep #: [id number] : 1950 F 67 From: Fer Amos MD PCP: Sandra Degroot NP Status: REG CLI Study: Knee 4 or More Views Date of Exam: 12/17/17 Exam# [id number] Ordering Dr: Lynda Suazo STUDY: X-RAY - RIGHT KNEE REASON FOR EXAM: Female, 67 years old. Pain TECHNIQUE: 4 view(s) of the knee. COMPARISON: 2014 FINDINGS: Normal visualized distal femur. Normal visualized pr oximal tibia and fibula. Normal proximal tibiofibular articulation. There is mild degenerative arthrosis of the medial femorotibial compartment. Normal lateral femorotibial compartment. There is mild d egenerative arthrosis of the patellofemoral articulation. The soft tissue structures are unremarkable. RAD/Knee 4 or More Views IMPRESSION: Dege nerative arthrosis. Electronically Signed: Abiodun Amos MD at 16:48 EDT , Service support , CC: Sandra Degroot NP; VALENTE Suazo Tar Processing Technician: Signed 18-Nov-2017 SCREENING MAMM (CAD), BILAT Result: Comments: See Note; NOTES: [facility] Imaging Services [address] [facility] [place] [address] SCREENING MAMM (CAD), BILAT MR#: [id number] Acct: [id number] Name: TISH MALAVE Rep #: [id number] : 1950 F 67 From: Xu Adams MD PCP: Sandra Degroot NP Status: PRE CLI Study: SCREENING MAMM (CAD), BILAT Date of Exam: 11/18/17 Exam# [id number] Ordering Dr: Guido Hogue MD MAMM OGRAPHY - BILATERAL SCREENING REASON FOR EXAM: Female, 67 years old. Routine annual screening examination. PERTINENT HISTORY: Personal history of breast cancer. Sister with breast cancer. Prior left l umpectomy with post radiation therapy. TECHNIQUE: Digital bilateral breast debbie (3D mammographic acquisition) in the CC and MLO projections. 2-D mediolateral oblique (MLO) and craniocaudad (CC) views o f both breasts were obtained. CAD: Full Field Digital Mammography with Computer Added Detection was performed. COMPARISON: Comparison is made with prior study dated November 16, 2016 and June 07, 2016. _ FINDINGS: Breast Composition: There are scattered areas of fibroglandular density. The patient is status post lumpectomy of the superior deep portion of the left nelida ast with post operative scarring. This is unchanged. No other significant abnormalities are identified. There has been no significant change since the prior study. BI/SCREENING MAMM (CAD), BILAT IMPRESSION: Stable bilateral screening mammogram. Yearly follow-up mammogram recommended. (A) ASSESSMENT CATEGORY : BIRADS Category 2: Benign. A letter regarding these results will be sent to the patient by the facility within 30 days. Approximately 10% of breast cancers are not detected by mammography. A normal m ammogram should not delay biopsy of a clinically suspicious abnormality. [id number] Electronically Signed: Xu Adams MD at 15:22 EDT Tel [phone], Service support , Fa x [phone] CC: Sandra Degroot NP; Guido Hogue MD Tar Processing Technician: Signed 05-Oct-2017 PET/CT Tumor Base -Thigh Init Result: Comments: See Note; NOTES: [facility] Imaging Services [address] [place] [address] PET/CT Tumor Base -Thigh Init MR#: [id number] Acct: [id number] Name: TISH MALAVE Rep #: [id number] : 1950 F 66 From: Hossein Oneill DO PCP: Sandra Degroot NP Status: REG CLI Study: PET/CT Tumor Base -Thigh Init Date of Exam: 10/07/17 Exam# [id number] Ordering Dr: Sandra DegrootINA ON: FDG PET/CT INDICATIONS: A 66-year-old female with reported history of carcinoma of the breast presenting for restaging examination and evaluation of pulmonary nodularity. COMPARISON EXAMINATION: C T of the chest report dated 09/23/17 TECHNIQUE: Following the intravenous administration of 15.67 mCi of F-18 deoxyglucose via the right wrist, multiplanar image acquisitions of the neck, chest, abdome n and pelvis to level of mid thigh, obtained at one hour post radiopharmaceutical administration contemporaneously interpreted with the current CT of the neck, chest, abdomen and pelvis to level of mid thigh, dated 10/07/[address] of the chest report dated 09/23/17 reveal: SERUM GLUCOSE LEVEL: 93 mg/dl. HEIGHT: 63 inches. WEIGHT: 225 lbs. FINDINGS: 1. There is no quantitative scin tigraphic evidence of abnormal increased glucose metabolism within the context of the right hemithorax pulmonary parenchyma to correlate with structural changes noted on review of CT of the thorax dated 09/23/2017. 2. Normal physiologic distribution of the radiopharmaceutical is apparent in the hepatic and splenic parenchyma, both renal units, bladder and visualized intestinal tract. The visualized po rtion of the cerebral cortex demonstrate symmetric and preserved glucose metabolism. Diffuse radiopharmaceutical concentration is noted in all four quadrants of the abdomen and pelvis. Prominent glucose concentration appears evident in the lower perineum which appears contiguous to apparent placement. Pertinent CT findings are as follows: CHEST: There is atherosclerotic calcification defined in the t horacic aorta without evidence of dilatation-aneurysm formation. Coronary arterial calcification is observed. Apparent postsurgical change is manifest within the left breast. Subcentimeter bilateral axi llary soft tissue densities are non-glucose avid. Centrilobular emphysematous change is noted in the bilateral upper lung zones. ABDOMEN AND PELVIS: There is atherosclerotic calcification defined in the abdominal aorta without evidence of dilatation-aneurysm formation. Pelvic arterial calcification is observed. The uterus appears surgically absent. Right-left inguinal soft tissue densities with fatty hilus formation are ametabolic. SKELETAL: Degenerative changes are noted in the cervical, thoracic and lumbar spine. Diffuse demineralization is noted throughout the axial skeletal structures. ORDER # : [id number] PET/PET/CT Tumor Base -Thigh Init IMPRESSION: 1. NEGATIVE EXAMINATION. There is no definitive quantitative scintigraphic evidence of recurrent- metastatic/viable neoplasm. 2. There is no dc titative scintigraphic evidence of abnormal increased glucose metabolism within the context of the right lower anteromedial hemithorax pulmonary parenchyma, right middle lobe to correlate with a non-bella cified approximately 14.5-mm density noted on review of CT of the thorax dated 10/07/17. 3. Anatomic stability may be ensured in the ametabolic right hemithorax pulmonary parenchymal density with repeat CT of the thorax in three months. (Alison, Seminars in Thoracic and Cardiovascular Surgery 14:292, 2002). Electronic Signature Hossein Oneill D.O. Electronically Signed: Hossein Oneill DO at 23:10 EDT Tel , Service support , CC: Sandra Degroot NP Tar Processing Technician: Signed 23-Sep-2017 Chest WITH Contrast Result: Comments: See Note; NOTES: [facility] Imaging Services [address] [place] [address] Chest WITH Contrast MR#: [id number] Acct: [id number] Name: TISH MALAVE Rep #: [id number] OB: 1950 F 66 From: Vasu Wright MD PCP: Sandra Degroot NP Status: REG CLI Study: Chest WITH Contrast Date of Exam: 09/23/17 Exam# [id number] Ordering Dr: Sandra Degroot STUDY: CT CHEST WITH CONTRAST REASON FOR EXAM: Female, 66 years old. RADIATION DOSAGE (If Supplied By Facility): CTDIvol = ( 15.06 ) mGy, DLP = ( 714.89 ) mGycm TECHNIQUE: Transaxial imaging was performed following intr avenous administration of 100 ml of Isovue 300 contrast material. Individualized dose optimization techniques were used for this CT. COMPARISON: None. FINDINGS: : TRACHEA, THYROID, ESOPHAGUS: No tracheomalacia,stricture or wall thickening. Thyroid and esophagus are normal CARDIOVASCULAR SYSTEM:The thoracic aorta is normal with no aneurysm, dissection or develo pmental anomalies. The pulmonary trunk and the left and right pulmonary arteries and their lobar and segmental branches do not show any abnormal and persistent filling defects in them. There is therefor e no evidence of pulmonary embolism. The heart is normal. There are no venous anomalies RACHAEL AND LYMPH NODES: No hilar masses and no mediastinal, hilar, axillary or supraclavicular adenopathy LUNGS, L OW-ATTENUATION: Centrilobular emphysematous changes in both upper. Paraseptal emphysematous changes in both apices. LUNGS, HIGH ATTENUATION: The 8 mm nodular density in the right middle lobe seen on th e last examination of August 09, 2016 has increased in size to 1.5 cm. 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 The lesion has a slightly nodular contour. Two 4.7 and 5.2 mm nodules are in the right lower lobe. An 8.5 mm nodule is also seen in the right lower lobe. Two 4 mm nodules are in the right upper lobe a 6 mm subpleural nodule is in the left lower lobe. LUNGS, MOSAIC/CRAZY PAVING: Not evident PLEURA AND CHEST WALL: No plural effusions, pneumothoraces,rib fractures or any osteolytic/osteoblastic changes . The soft tissue chest wall including the breasts are normal UPPER ABDOMEN: Unremarkable . ___ CT/Chest WITH Contrast IMPRESSION: An 8 mm nodule in the right middle lobe seen in the last examination of August 09, 2016 has doubled in size to 1.5 cm in today's study. 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 Other small subcentimeter nodules in both lungs also seen previously have not changed. N.B. : Tre Naidu, confirmed on 09/24/2017 22:2 7:32 (ET) that the referring physician received the results and did not require a verbal consultation. Electronically Signed: Vasu Wright, at 1:31 EDT Tel , Service support , N.B. : Tre Naidu, confirmed on 09/24/2017 22:27:32 (ET) that the referring physician received the results and did not require a verbal consultatio n. CC: Sandra Degroot NP Tar Processing Technician: Signed 17-Jul-2017 Oncology Visit Report Result: Comments: See Note; NOTES: [facility] Oncology [facility] [place] [address] OFFICE VISIT Date of Service: 07/17/17 1446 MR#: [id number] Acct: [id number] Name: TISH MALAVE #: [id number] : 1950 From: Guido Hogue MD Age/Sex: 66/F Location: OMD Status: Signed Subjective - Chief Complaint F/u for Left Breast cancer. - History of Present Illness Ms. Tish Malave is a 66-year-old woman with a past medical history positive for hypertension, COPD, inflammatory arthritis and Parkinson's disease who underwent a routine mammogram on 09/23/2012. A grouping of calcifica tions in the upper left breast near the 12 o'clock position was identified. A stereotactic core biopsy of one of those areas returned positive for ductal carcinoma in situ with focal area of microinvasi ve carcinoma. Subsequently she underwent a left breast lumpectomy and sentinel lymph node biopsy under the care of Dr. Deandra Ellison on 11/12/2012. Pathology proved grade 1 invasive ductal carcinoma; DCIS wa s present. The tumor measured 0.4 cm and 3/3 lymph nodes were negative for metastatic disease and surgical margins were uninvolved. Biology proved ER positive (95%) WA positive (5%) and HER2-griffin nonampl ified by FISH. She completed 28 fractions of radiation therapy to the left breast with an additional 8 fractions to scar from 12/23/2012 through 02/21/2013 under the care of Dr. Clarke. She began anastro zole 02/23/2013. Baseline DEXA scan is normal. However, scan in 10/2014 revealed osteopenia. She received Prolia from 10/28/2014 to 11/06/2016. CT chest on 08/09/2017 showed bilateral lung nodules. She remain s on Anastrozole, comes in for follow up. - Past Medical/Social History Past Medical History Past Medical History: Arthritis,Asthma,COPD,Hypertension,Lupus, Osteopenia Other Past Medical History: MIX ED CONNECTIVE TISSUE DISEASE INFLAMATORY POLYARTHROPATHY PARKINSON'S Cancer: Breast cancer Past Surgical History Surgical: Cholecystectomy,Lumpectomy,Tubal ligation Other Surgical History: REMOVAL OF STOMACH TUMOR R ANKLE FRACTURE REPAIR X 2 Family History Paternal Past Medical History: Heart disease,Hyperlipidemia Maternal Past Medical History: Alzheimer's disease,Anemia,Hypertension,Thyroid dis ease Social History Smoking Status Current every day smoker Review of Systems Constitutional:: Reports: Weakness Cardiovascular:: Denies: Chest pain, Palpitations, Dyspnea on exertion, Orthopnea, P ND, Shortness of breath Respiratory: Denies: Cough, Hemoptysis, Shortness of Breath, Wheezing Gastrointestinal:: Denies: Abdominal pain, Nausea, Vomiting, Diarrhea, Constipation, Hematochezia Genitourin mel: Denies: Dysuria, Hematuria, 15, Flank pain Musculoskeletal:: Reports: Joint stiffness - L shoulder Skin: Denies: Rash, Skin Changes, Wounds Neurological:: Denies: Headache, Dizziness, Visual change s, Tinnitus, Hearing loss Psychiatric: Denies: Anxiety, Depression, Homicidal Ideations, Suicidal Ideations Vital Signs Height 5 ft 3 in Weight: 102.512 kg Weight in Pounds 226.0 lbs Pulse Ox 93 - Physical Exam General: Alert, Oriented x3, No apparent distress HEENT: Atraumatic, PERRLA, EOMI, Normocephalic Oropharynx:: Dry mucosa Neck:: Supple, Trachea midline. Negative for: JVD, bilateral Cardia c:: Regular rate, Regular rhythm, Normal S1, Normal S2. Negative for: Murmur Lungs: Clear to auscultation, Excusion symmetrical. Negative for: Rhonchi, Wheezes Extremities:: - - + diminished ROM L shoul suhail Neurological: Neuro grossly intact Skin:: - - Post Radiation changes L breast. Psychiatric:: Appropriate affect, Euthymic Lymphatics:: Negative for: Cervical lymphadenopathy, Supraclavicular lymphad enopathy, Axillary lymphadenopathy Laboratory Data: Laboratory Tests WBC 6.5 (4.4-11.0) K/mm3 RBC 4.54 (4.2-5.4) M/mm3 Hgb 14.8 (12.0-15.0) g/dl Assessment and Plan Left breast cancer stage I on ad juvant Anastrozole. No evidence of disease. Diminished ROM Left shoulder. Lung nodules. Plan is to continue Anastrozole till February 2018. Obtain CT chest to assess lung nodules. RTC 6 months with CBC , CMP. Medications: Prescriptions This Visit Medication Instructions Recorded Glycopyrrolate/Formoterol Fum 10.7 gm IH DAILY PRN 11/06/16 [Bevespi Aerosphere Inhaler] Anastrozole [Arimidex] 1 mg PO ANGELA LY #90 tab 07/17/17 Primary Care Provider: Sandra Degroot Referring Provider: Deandra Ellison - Problem List (1) Pulmonary nodules/lesions, multiple Status: Chronic (2) Malignant neoplasm of central portion of female breast Status: Resolved Qualifiers: Estrogen receptor status: positive Laterality: left Qualified Code(s): C50.112 - Malignant neoplasm of central portion of left female breast; Z17.0 - Estro gen receptor positive status [ER+] (3) History of left breast cancer Status: Chronic Code Visit Office Visits / Consults: [id number] OV L4 Est 07/17/17 1511 <Electronically signed by Guido Hurtado D> Date Guido Hogue MD Cosigner Signature: Date (if applicable) CC: 16-Nov-2016 Breast Limited Unilateral Result: Comments: See Note; NOTES: [facility] Imaging Services [address] [place] [address] Breast Limited Unilateral MR#: [id number] Acct: [id number] Name: TISH MALAVE Rep #: [id number] : 1950 F 66 From: Xu Adams MD PCP: Sandra Degroot Status: REG CLI Study: Breast Limited Unilateral Date of Exam: 11/16/16 Exam# [id number] Ordering Dr: Maeve Tarango STUDY: ULTR ASOUND BREAST - LEFT REASON FOR EXAM: Female, 66 years old. Pain in the left breast. TECHNIQUE: Axial and longitudinal images of the LEFT breast were performed with a high resolution ultrasound transd ucer. COMPARISON: Comparison is made with prior mammogram done earlier today as well as prior ultrasound of the left breast dated October 01, 2014. FINDINGS: LEFT Br east: The patient is status post lumpectomy. The scar is seen in the upper outer quadrant. No mass lesion or fluid collection is seen. US/Breast Limited Unilateral IMPRESSION: Status post left lumpectomy. No acute abnormality is seen. ASSESSMENT CATEGORY: BIRADS Category 2: Benign. A letter regarding these re sults will be sent to the patient by the facility within 30 days. Electronically Signed: Xu Adams MD at 15:16 EDT Tel [phone], Service support , CC: Sandra Degroot; Maeve Tarango Tar Processing Technician: Signed 16-Nov-2016 DIAG MAMM W/CAD, UNILAT Result: Comments: See Note; NOTES: [facility] Imaging Services [address] [place] [address] DIAG MAMM W/CAD, UNILAT MR#: [id number] Acct: [id number] Name: TISH MALAVE Rep #: [id number] : 1950 F 66 From: Xu Adams MD PCP: Sandra Degroot Status: REG CLI Study: DIAG MAMM W/CAD, UNILAT Date of Exam: 11/16/16 Exam# [id number] Ordering Dr: Maeve Tarango MAMMOGRAPHY - U NILATERAL DIAGNOSTIC: LEFT BREAST REASON FOR EXAM: Female, 66 years old. Pain and swelling of the left breast. PERTINENT HISTORY: Personal history of breast cancer. Prior left lumpectomy and radiation treatment. TECHNIQUE: Digital unilateral breast debbie (3D mammographic acquisition) in the CC and MLO projections. 2-D mediolateral oblique (MLO) and craniocaudad (CC) views of both breasts were obtain ed. CAD: Full Field Digital Mammography with Computer Added Detection was performed. COMPARISON: Comparison is made with prior study dated June 07, 2016 and May 26, 2015. FINDINGS: Breast Composition: There are scattered areas of fibroglandular density. There are no dominant masses or suspicious calcifications. Postoperative architectural distortion and scar ring is seen in the deep upper midportion of the left breast in keeping with prior lumpectomy. There is deformity of the left breast. No new mass lesion or cluster microcalcification is present. No oth er significant abnormalities are identified. There has been no significant change since the prior study. HPBI/DIAG MAMM W/CAD, UNILAT IMPRESSION: Stable unilateral diagnostic mammogram. With the patient's history of pain in the breast, correlation with ultrasound is recommended. ASSESSMENT CATEGORY: BIRADS C ategory 0: Incomplete. Need additional imaging evaluation. A letter regarding these results will be sent to the patient by the facility within 30 days. Approximately 10% of breast cancers are not detec gualberto by mammography. A normal mammogram should not delay biopsy of a clinically suspicious abnormality. Electronically Signed: Xu Adams MD at 15:24 EDT Tel [phone], Service supp ort , CC: Sandra Degroot; Maeve Tarango Tar Processing Technician: Signed 09-Aug-2016 Chest WITH Contrast Result: Comments: See Note; NOTES: [facility] Imaging Services [address] [place] [address] Verdana 4d Chest WITH Contrast MR#: [id number] Acct: [id number] Name: TISH MALAVE Rep #: [id number] : 1950 F 65 From: Mario Horton MD PCP: Sandra Degroot Status: REG CLI Study: Chest WITH Contrast Date of Exam: 08/09/16 Exam# [id number] Ordering Dr: Jean Carlos Clarke MD STUDY: CT CHEST WITH CONTRAST REASON FOR EXAM: Female, 65 years old. Breast cancer. Smoker. History emphysema. Previous pulmonary nodules are RADIATION DOSAGE (If Supplied By Facility): CTDIvol = ( 19.55 ) mGy , DLP = ( 680.3 ) mGycm TECHNIQUE: Transaxial imaging was performed following intravenous administration of 100 ml of Isovue 300 contrast material. Individualized dose optimization techniques were use d for this CT. COMPARISON: 04/30/2016. FINDINGS: Moderate hyperexpansion of the lungs. Again seen are changes of centrilobular emphysema. Extensive blebs in the upp er lobes. Stable 4.5 mm nodule in the right upper lobe, image 35. Stable 2 mm pleural-based nodule in the posterior upper right lung on image 38. Stable 5 mm nodule in the posterior right lower lobe on image 51. Stable 8 mm nodule near the center of the right middle lobe on image 65. Stable pleural-based 5 mm nodule in the lateral left lower lobe on image 73. No infiltrates. No effusions. Normal hear t and pericardium. Normal mediastinum. Normal hilar regions. Normal enhanced pulmonary arteries. Normal aorta arch and descending thoracic aorta. Normal osseous structures. There is no demonstrated a bnormality of the visualized upper abdomen. CT/Chest WITH Contrast IMPRESSION: Prominent centrilobular emphysema. Numerous nodules as specified a radha nieves. Recommend repeat CT in 6 months. Electronically Signed: Mario Horton MD at 14:22 EDT , Service support , CC: Sandra sims; Jean Carlos Clarke MD Tar Processing Technician: Signed 09-Jul-2016 Chest PA and Lateral Result: Comments: See Note; NOTES: [facility] Imaging Services [address] [place] [address] Verdana 4d Chest PA and Lateral MR#: [id number] Acct: [id number] Name: TISH MALAVE Rep #: [id number] : 1950 F 65 From: Xu Adams MD PCP: Sandra Degroot Status: REG CLI Study: Chest PA and Lateral Date of Exam: 07/09/16 Exam# [id number] Ordering Dr: Sandra Degroot STUDY: X-RAY C HEST REASON FOR EXAM: Female, 65 years old. COPD. Cough. TECHNIQUE: PA and lateral views of the chest. COMPARISON: Comparison is made with prior study dated August 31, 2012. FINDINGS: Hyperinflation. Scattered calcified granulomas. No acute abnormality is seen. There is no demonstrated pleural abnormality. Normal size heart. Normal mediastinum and rachael. Normal vi sualized pulmonary arteries. There is atherosclerotic calcification of the aortic arch with tortuosity. Normal visualized thoracic spine. Normal visualized ribs, clavicles, and shoulders. There is no demonstrated abnormality of the visualized soft tissue structures of the upper abdomen. RAD/Chest PA and Lateral IMPRESSION: No acute abnormality is seen. Electronically Signed: Xu Adams MD at 13:03 EDT Tel [phone], Service support [phone], CC: Sandra Degroot Tar Processing Technician: Signed 07-Jun-2016 SCREENING MAMM (CAD), BILAT Result: Comments: See Note; NOTES: [facility] Imaging Services [address] [place] [address] Verda 4d SCREENING MAMM (CAD), BILAT MR#: [id number] Acct: [id number] Name: TISH MALAVE Rep #: [id number] : 1950 F 65 From: Xu Adams MD PCP: Sandra Degroot Status: REG CLI Study: SCREENING MAMM (CAD), BILAT Date of Exam: 06/07/16 Exam# [id number] Ordering Dr: Rona Tarango MAMMOGRAPHY - BILATERAL SCREENING REASON FOR EXAM: Female, 65 years old. Routine annual screening examination. PERTINENT HISTORY: Personal history of breast cancer. Sister with breast cancer. JACINTA HNIQUE: Digital bilateral breast debbie (3D mammographic acquisition) in the CC and MLO projections. 2-D mediolateral oblique (MLO) and craniocaudad (CC) views of both breasts were obtained. CAD: Full Fie ld Digital Mammography with Computer Added Detection was performed. COMPARISON: Comparison is made with prior study dated May 26, 2015 and October 01, 2014. FINDI NGS: Breast Composition: There are scattered areas of fibroglandular density. The patient is status post left lumpectomy with resultant deformity of the left breast and postoperative scarring in the de ep mid superior portion of the breast. This is unchanged. No new mass lesion or cluster my calcification is present. No other significant abnormalities are identified. There has been no significant lisa nge since the prior study. 0031 HPBI/SCREENING MAMM (CAD), BILAT IMPRESSION: Stable bilateral screening mammogram. Yearly follow-up mammogram recommen ded. (A) ASSESSMENT CATEGORY: BIRADS Category 2: Benign. A letter regarding these results will be sent to the patient by the facility within 30 days. Approximately 10% of breast cancers are not detected by mammography. A normal mammogram should not delay biopsy of a clinically suspicious abnormality. [id number] Electronically Signed: Xu Adams MD at 8:17 EST Tel [phone], Service support [phone], CC: Sandra Degroot; Maeve Emelina Tar Processing Technician: Signed 30-Apr-2016 Chest without Contrast Result: Comments: See Note; NOTES: [facility] Imaging Services [address] [place] [address] Kattydana 4d Chest without Contrast MR#: [id number] Acct: [id number] Name: TISH MALAVE Rep #: [id number] : 1950 F 65 From: Lex Mosley MD PCP: Sandra Degroot Status: REG CLI Study: Chest without Contrast Date of Exam: 04/30/16 Exam# [id number] Ordering Dr: Jean Carlos Clarke MD [facility] DY: CT CHEST WITHOUT CONTRAST REASON FOR EXAM: Female, 65 years old. Cough. Smoker. History of breast cancer with lumpectomy and radiation therapy 2 years ago. RADIATION DOSAGE (If Supplied By Facilit y): CTDIvol = ( 19.53 ) mGy, DLP = ( 610.05 ) mGycm TECHNIQUE: Transaxial imaging was performed without the administration of intravenous contrast material. Individualized dose optimization techniques were used for this CT. COMPARISON: CT scan chest 12/16/2012. FINDINGS: There are emphysematous changes in the lungs, most prominent in the upper lung lópez. There are also areas of fibrosis and atelectasis. As no demonstrated acute pulmonary infiltrate. As seen on axial image 46, there is a 4.5 mm noncalcified right lower lobe lung nodule. This is not seen on p revious exam. As seen on axial image 30, there is a 5.5 mm noncalcified right upper lobe lung nodule. This is not seen on previous exam. As seen on axial image 67, there is a 5.6 x 4.3 mm left lower lob e lung nodule contiguous with the lateral pleural surface (average diameter 5 mm). This is not significantly different from previous exam. There is no demonstrated pleural abnormality. Normal heart an d pericardium. There are coronary artery calcifications. There are multiple small lymph nodes within the mediastinum, which are normal in size and morphology most compatible with reactive lymph hyperpl alf. The appearance is stable. Normal hilar regions. Normal unenhanced pulmonary arteries. There are atherosclerotic calcifications of the thoracic aorta and great vessels. There are multi-level degen erative changes of the thoracic spine. There is fatty infiltration of the liver. CT/Chest without Contrast IMPRESSION: New findings of a 4.5 mm right lower lobe lung nodule and a 5.5 mm right upper lobe lung nodule. Suggest an initial 6 month follow-up exam to assess stability. 5 mm pleural-based left lower lobe lung nodule is stable in size an d appearance. Emphysematous and fibrotic changes in the lungs. Atherosclerosis. Fatty liver. Electronically Signed: Lex Mosley MD at 7:24 EST , Service support [phone], CC: Sandra Degroot; Jean Carlos Clarke MD Tar Processing Technician: Signed 12-Oct-2015 Dexa Bone Density Study (HP) Result: Comments: See Note; NOTES: [facility] Imaging Services [address] [place] [address] Verdana 4d Dexa Bone Density Study () MR#: [id number] Acct: [id number] Name : TISH MALAVE Rep #: [id number] : 1950 F 64 From: Xu Adams MD PCP: Sandra Degroot Status: REG CL Study: Dexa Bone Density Study (HP) Date of Exam: 10/12/15 Exam# [id number] Ordering Dr: Trae Owen MD STUDY: DUAL ENERGY X-RAY ABSORPTIOMETRY / DXA REASON FOR EXAM: Female, 64 years old. The patient is postmenopausal. History of breast cancer. Loss of height. TECHNIQUE: Lalo ne Mineral Density (BMD) measurements of lumbar spine and bilateral hips were obtained. COMPARISON: Comparison is made with prior study dated September 19, 2010. FIN DINGS: Lumbar Spine (L1-L4): g/cm2 (0.953) / T-score (-1.9) / Z-score (-0.3) Findings are suggestive of osteopenia with a moderate fracture risk. Left Femur Total: g/cm2 (0.835) / T-score (-1.4) / Z-score (-0.2) Left Femoral Neck: g/cm2 (0.874) / T-score (-1.2) / Z-score (0.3) Right Femur Total: g/cm2 (0.840) / T-score (-1.3) / Z-score (-0.1) Right Femoral Neck: g/cm2 (0.819) / T-score (-1.6) / Z-score (-0.1) The T-Scores on the most recent prior examination were: Lumbar Spine (L1-L4): There has been worsening of bone density since the previous examination. Left Femur Total: which rep resents a worsening of 4.7%. Right Femur Total: which represents an improvement of 3.3%. IMPRESSION: The patient is considered osteopenic as outlined below accor ding to World Vincent Organization (WHO) criteria with a moderate fracture risk. There has been worsening of bone density since the previous examination. Referenc e Information: The T-score is the number of standard deviations above or below the standard which is normal for young adults at their peak bone mineral density. The World Health Organization (WHO) in terprets the T-scores as follows: Above -1 Normal bone density Between -1 and -2.5 Osteopenia Equal to / or below -2.5 Osteoporosis As a practical clinical guideline, osteopenia may be graded as follows: Mild -1 through -1.5 Moderate -1.6 through -2.0 Severe -2.1 through -2.4 The Z-score is the number of standard deviations above or below age- matched controls. A Z-score of less than -1.5 would be considered abnormal. References: 1. NIH Osteoporosis and Related Bone Diseases http://www.osteo.org 2. International Society for Clinical Densitometry http://www.iscd.org 3. National Osteo porosis Foundation http://www.nof.org Electronically Signed: Xu Adams MD at 13:05 EDT Tel [phone], Service support [phone], CC: Sandra Degroot; Trae Owen Tar Processing Technician: Signed 26-May-2015 Bilat Diag Digital AND CAD Result: Comments: See Note; NOTES: [facility] Imaging Services [address] [place] [address] Verdana 4d Bilat Diag Digital AND CAD MR#: [id number] Acct: [id number] Name: TISH MALAVE Rep #: [id number] : 1950 F 64 From: Xu Adams MD PCP: Sandra Degroot Status: REG CLI Study: Bilat Diag Digital AND CAD Date of Exam: 05/26/15 Exam# [id number] Ordering Dr: Deandra Ellison MD MAMMOGRAPHY - BILATERAL DIAGNOSTIC REASON FOR EXAM: Female, 64 years old. Increased firmness of the left breast. PERTINENT HISTORY: Personal history of breast cancer. TECHNIQU E: Digital examination. Mediolateral oblique (MLO) and craniocaudad (CC) views of both breasts were obtained. CAD: CAD was performed on this study. COMPARISON: Comparison is made with prior study da gualberto October 01, 2014 and May 24, 2014. FINDINGS: Breast Composition: There are scattered areas of fibroglandular density. There are no dominant masses or rudy picious calcifications. The patient is status post left lumpectomy with resultant architectural distortion and increased soft tissue density in the upper deep portion of the left breast. This is unch anged. No clustered microcalcification is seen. No other significant abnormalities are identified. There has been no significant change since the prior study. I MPRESSION: Stable bilateral diagnostic mammogram. One year follow-up recommended. (A) ASSESSMENT CATEGORY: BIRADS Category 2: Benign. A letter regarding these r esults will be sent to the patient by the facility within 30 days. Approximately 10% of breast cancers are not detected by mammography. A normal mammogram should not delay biopsy of a clinically rudy picious abnormality. Electronically Signed: Xu Adams MD at 9:06 EST Tel [phone], Service support [phone], CC: Sandra Degroot; Deandra Ellison MD Tar Processing Technician: Signed 17-May-2015 Abdomen Complete Result: Comments: See Note; NOTES: [facility] Imaging Services [address] [place] [id number] Verdana 4d Abdomen Complete MR#: [id number] Acct: [id number] Name: TISH MALAVE Rep #: [id number] : 1950 F 64 From: Jaclyn Rojas MD PCP: Sandra Degroot Status: REG CLI Study: Abdomen Complete Date of Exam: 05/17/15 Exam# [id number] Ordering Dr: Sandra Degroot STUDY: A BDOMINAL ULTRASOUND REASON FOR EXAM: Female, 64 years old. abd swelling TECHNIQUE: Transabdominal ultrasound was performed with real-time and static haas scale imaging. TECHNICAL QUALITY: Adequat e. COMPARISON: None. FINDINGS: Liver: The liver measures 16.8 cm. There is increased echogenicity consistent with fatty infiltration. The bile ducts are withi n normal limits. There is hepatic color flow. The direction of portal flow is hepatopetal. There is no demonstrated mass lesion. Gallbladder: Is not visualized. Common Bile Duct (C.B.D.): The comm on bile duct measures 2.6 mm. Pancreas: Normal size of the head, body and tail of the pancreas. There is normal echogenicity of the pancreas. There is no demonstrated pancreatic mass or cyst. Sple en: Normal size of the spleen. The spleen measures 9.5x3x3 cm. Right Kidney: Normal size of the right kidney. The right kidney measures 10.4x5x4 cm. Normal renal cortex. The right cortex measures 1.5 cm. There is no demonstrated renal mass or cyst. There is no right hydronephrosis. Left Kidney: Normal size of the left kidney. The left kidney measures 10x5x4 cm. Normal renal cortex. The left co rtex measures 1.5 cm. There is no demonstrated renal mass or cyst. There is no left hydronephrosis. Aorta: Measures 2.3x1.6 at its maximum transverse section. There is no evidence of aneurysmal dila tion. I.V.C.: The IVC is patent. There is no ascites. IMPRESSION: There is increased echogenicity consistent with fatty infiltration. Electronically Signed: Rosa Rojas MD at 14:26 EST Tel , Service support [phone], CC: Sandra Degroot Tar Processing Technician: Signed 14-Oct-2014 History and Physical Exam Result: Comments: See Note; NOTES: [facility] Medical Records Department [address] [place] [address] History and Physical 10/14/14 1021 MR#: [id number] Acct: [id number] Name: TISH MALAVE Rep #: [id number] : 1950 64 From: Deandra Ellison MD PCP: Sandra Degroot Status: REG CLI Y Location: [facility] History and Physical - Blank Date of Admission: 10/12/14 Primary Provid er: Dr. Myles History of Present Illness: 63 y/o WF with history of Stage I left breast cancer dx'd September 2012. S/P left breast lumpectomy and radiation therapy She notes distortion of left breast t issue with firmness/induration and asymmetry as compared to right since radiation. Denies pain. Denies nipple discharge. Left breast mammogram 6/26/15 - architectural distortion at the lumpectomy si te Left breast US - 10/01/14 - 2.1 cm x 1.8 cm solid cystic area at the 12:00 position 3 cm from the nipple, corresponds to operative site, margins are ill defined, HAO Leger Past Medical History: H /O stage I breast cancer - T1 (0.4 cm with DCIS comedo that is 1cm) N0 (3 SLN negative) ER 95% WA 5%, Her2-negative Hypertension Asthma/COPD Past Surgical History: Left breast lumpectomy and se ntinel lymph node biopsy November 12, 2012 Removal of stomach tumor? 2-3 years ago Right ankle fracture repair Cholecystetomy '80s Tubes tied Past injuries: denies history of head trauma, had ri ght ankle fracture, had left clavicular fracture Medications: METHOTREXATE 2.5 MG TABS (METHOTREXATE SODIUM) Take 8 tabs on Saturday PROCHLORPERAZINE MALEATE 5 MG TABS (PROCHLORPERAZINE MALEATE) as needed FOLIC ACID TABS (FOLIC ACID TABS) One tablet by mouth twice daily CARBIDOPA-LEVODOPA 25-100 MG TABS (CARBIDOPA-LEVODOPA) One tablet by mouth three times daily ANASTROZOLE 1 MG TABS (ANASTRO ZOLE) One tablet by mouth daily PROMETHAZINE HCL 25 MG TABS (PROMETHAZINE HCL) 1 tab every 4 hours as needed SPIRIVA HANDIHALER 18 MCG CAPS (TIOTROPIUM BROMIDE MONOHYDRATE) SIMVASTATIN 20 MG TABS (SI MVASTATIN) One tablet by mouth daily PROPRANOLOL HCL 40 MG TABS (PROPRANOLOL HCL) One tablet by mouth twice daily PLAQUENIL 200 MG TABS (HYDROXYCHLOROQUINE SULFATE) Two tablets daily PREDNISONE 10 MG TABS (PREDNISONE) as needed HYDROCHLOROTHIAZIDE 12.5 MG TABS (HYDROCHLOROTHIAZIDE) One tablet by mouth daily TRAMADOL HCL 50 MG TABS (TRAMADOL HCL) as needed VESICARE 5 MG TABS (SOLIFENACIN SUCCINAT E) One tablet by mouth daily Allergies: NO KNOWN ALLERGIES! Family History Summary: Sister (full) - Has FH Breast Cancer - Entered On: 04/21/2014 General Comments - FH: SIster had bilateral br east cancer in her 60s No uterine/ovarian cancer known in family Social History: Alcohol Use - no Drug Use - no aspirin use - yes ibuprofen use - no Regular Exercise - no Smoking Histor y: Patient is a former smoker quit Jan 2014 Review of Systems General Denies fever, anorexia and weight loss. GI Denies abdominal pain and hematochezia. Breast Denies bloody discharge from nippl e. CV Denies chest pains. Resp Denies hemoptysis. Heme Denies bleeding. Physical Exam Height: 63 inches Weight: 231 pounds BMI: 40.92 Temp: 97.6 degrees F tympanic Pulse rate: 55 / minute Re sp: 20 per minute BP sittin / 72 General: well developed, well nourished, in no acute distress Head: normocephalic and atraumatic Eyes: EOM intact sclera clear Neck: supple with no J VD or tracheal deviation no carotid bruits noted no thyroid enlargement or thyroid nodules palpated Breasts: left breast changes c/w raditaion with dense scarrin and less ptotic than righto nipple discharge and both nipples everted nodular breast tissue palpated bilaterally - dense breat tissue of left breast no suspicious lesions noted Lungs: good inspiration upon command with no difficult ies no labored breathing such as retractions noted clear breath sounds bilaterally no rales/rhonchi/wheezing noted Heart: nornal heart sounds regular rate no rubs/clicks/murmurs noted normal si ze and location by auscultation Abdomen: soft and benign no tenderness noted normal bowel sounds difficult to determine if any distention/masses/hepatosplenomegaly due to patient's body habitus Extremities: no calf tenderness or calf swelling noted no pitted edema noted no upper extremity lymphedema noted Cervical Nodes: no cervical or supraclavicular adenopathy palpated Axillary Nodes : no axillary adenopathy palpated Psych: calm and appropriate Impression AND Recommendations: Problem # 1: Hx of NEOPLASM, MALIGNANT, BREAST, CENTRAL (ICD-174.1) (KRI89-L80.119) See below. Problem # 2: Other (abnormal) findings on radiological examination of breast (ICD-793.89) ( RQW43-Y78.8) I have discussed above with the patient and her who is present with her. I have recomm ended ultrasound guided needle core breast biopsy with vacuum assistance. I have described the procedure to the patient. Patient has been counseled to the risks/benefits of the procedure. I have expla ined the risks of the surgery, including but not limited to: infection, bleeding, injury to any blood vessels /nerves, scar tissue, missing the lesion, further surgery, etc. - the patient understands an d agrees to proceed. I have answered all of the patient's questions to her satisfaction and she has no further questions. 10/14/14 1023 <Electronically signed by Deandra Ellison MD> Date Deandra Ellison MD CC: Sandra Degroot; Deandra Ellison MD Signed 12-Oct-2014 Operative Report Result: Comments: See Note; NOTES: [facility] Medical Records Department [address] [place] [address] Operative Report 10/12/14 1154 MR#: [id number] Acct: [id number] Name: TISH MALAVE Rep #: [id number] : 1950 63 From: Deandra Ellison MD PCP: Sandra Degroot Status: REG CLI Y Location: [facility] Report of Operation Date of Procedure: 10/12/14 Pre-Operative Diagnosis: ab normal lesion on left breast ultrasound Post-Operative Diagnosis: same Surgery/Procedure Performed:: ultrasound guided left needle core breast biopsy with vacuum assistance Type of Anesthesia:: Loca l - 1% xylocaine with epinephrine Specimen's removed: left breast tissue Estimated Blood Loss: < 5 cc Fluids Replaced: none Description of Procedure: After informed consent was given, the p atient was brought to the ultrasound suite, and placed in the supine position. Appropriate time out protocol was followed. Using the ultrasound transducer, the suspicious lesion was localized and then marked with a marking pen on the patient s left breast. The lesion appeared to be at the previous lumpectomy site. The skin at where the biopsy stylus would be entering into the patient s breast was t hen cleansed with alcohol and the skin and subcutaneous tissues at the biopsy site were infiltrated with 1% xylocaine. A small skin incision was made with an 11 blade scalpel. Holding the transducer i n my left hand, I guided the biopsy stylus to just beneath the lesion under direct ultrasound guidance. The biopsy trough was then opened and noted under ultrasound guidance, such that it was ensured that the lesion was able to be biopsied. Several core samples of breast tissue were then obtained and this was visualized under ultrasound guidance. A marker clip was then placed into the patient s br east at the biopsy site and this was visualized under ultrasound guidance. Hemostasis was achieved using pressure. The skin incision was then reapproximated using steristrips and a sterile dressing wa s applied. The patient tolerated the procedure well. She was discharged from the radiology suite in stable condition. - Complications none noted - Admit VTE Documentation VTE Present on Admission : No - low risk procedure VTE Mechan Device Prophylaxis: None VTE Pharm Prophylaxis ordered?: No Reason prophylaxis not ordered:: Surgical contraindication 10/12/14 1210 <Electronically si gned by Deandra Ellison MD> Date Deandra Ellison MD CC: Sandra Degroot; Deandra Ellison MD; Sandra Degroot Signed 12-Oct-2014 US Breast Biopsy 1st Lesion Result: Comments: See Note; NOTES: [facility] Imaging Services [address] [place] [address] Ultrasound Report MR#: [id number] Acct: [id number] Name: TISH MALAVE Rep #: [id number] : 1950 F 63 From: Xu Adams MD PCP: Sandra Degroot Status: [facility] Study: US Breast Biopsy 1st Lesion Date of Exam: 10/12/14 Exam# [id number] Ordering Dr: Deandra Ellison MD STUDY : ULTRASOUND-GUIDED BIOPSY OF THE IRREGULAR HYPOECHOIC MASS IN THE UPPER ASPECT OF THE LEFT BREAST. REASON FOR EXAM: Female, 63 years old. Left breast mass. Prior lumpectomy. TECHNIQUE: Under dire ct sonographic guidance, the surgeon performed multiple core biopsies of the abnormal breast nodule. COMPARISON: None. FINDINGS: The core biopsy needle is seen within the nodule. IMPRESSION: Successful ultrasound-guided breast biopsy. Electronically Signed: Xu Adams MD at 10:43 EDT Tel [phone], Service support [phone], CC: Sandra Degroot; Deandra Ellison MD Tar Processing Technician: Signed 01-Oct-2014 Breast Limited Unilateral Result: Comments: See Note; NOTES: [facility] Imaging Services [address] [place] [address] Ultrasound Report MR#: [id number] Acct: [id number] Name: TISH MALAVE Rep #: [id number] : 1950 F 63 From: Xu Adams MD PCP: Sandra Degroot Status: REG CLI Study: Breast Limited Unilateral Date of Exam: 10/01/14 Exam# [id number] Ordering Dr: Trae Owen MD STUDY : ULTRASOUND BREAST - LEFT REASON FOR EXAM: Female, 63 years old. Firmness of the left breast. TECHNIQUE: Axial and longitudinal images of the LEFT breast were performed with a high resolution ultr asound transducer. COMPARISON: Comparison is made with prior mammogram done earlier in the day. Comparison is made with prior ultrasound dated September 04, 2013. FIN DINGS: LEFT Breast: There is a 2.1 cm x 1.8 cm x 1.5 cm solid cystic area at the 12:00 position of the breast at 3 cm from the nipple. This corresponds to the operative site. The margins are ill-de fined. The previously seen cystic structure at the 1:00 position the breast at 2 cm from the nipple has resolved. IMPRESSION: 2.1 cm x 1.8 cm x 1.5 cm ill-define d solid and cystic density at the 12:00 position of the breast at 3 cm from the nipple. This most likely there is post lumpectomy changes elbow a biopsy may be indicated for further evaluation. ____ ASSESSMENT CATEGORY: BIRADS Category 4: Suspicious - Biopsy Should Be Considered. A letter regarding these results will be sent to the patient by the facility within 30 days. Electronically Signed: Xu Adams MD at 14:52 EDT Tel [phone], Service support [phone], CC: Sandra Degroot; Trae Owen Tar Processing Technician: Signed 01-Oct-2014 Unilat Lt Diag Digital AND CAD Result: Comments: See Note; NOTES: [facility] Imaging Services [address] [place] [address] Breast Imaging Report MR#: [id number] Acct: [id number] Name: TISH MALVAE Rep #: [id number] : 1950 F 63 From: Xu Adams MD PCP: Sandra Degroot Status: REG CLI Study: Unilat Lt Diag Digital AND CAD Date of Exam: 10/01/14 Exam# [id number] Ordering Dr: Trae Owen MD MAMMOGRAPHY - UNILATERAL DIAGNOSTIC: LEFT BREAST REASON FOR EXAM: Female, 63 years old. Fullness of the breast. PERTINENT HISTORY: Personal history of breast cancer. TECHNIQUE: Digital examina tion. Mediolateral oblique (MLO) and craniocaudad (CC) views of the breast were obtained. CAD: CAD was performed on this study. COMPARISON: Comparison is made with prior examination dated May 092014 and September 04, 2013. FINDINGS: Breast Composition: There are scattered areas of fibroglandular density. Again, the patient is status post left lumpectomy with radiation therapy. There is evidence of architectural distortion at the excisional biopsy site. This is unchanged. No other significant abnormalities are identified. IMPRESSION: Stable unilateral diagnostic mammogram. One year follow- up recommended. (A) ASSESSMENT CATEGORY: BIRADS Category 2: Benign. A letter re garding these results will be sent to the patient by the facility within 30 days. Approximately 10% of breast cancers are not detected by mammography. A normal mammogram should not delay biopsy of a clinically suspicious abnormality. Electronically Signed: Xu Adams MD at 14:29 EDT Tel [phone], Service support [phone], CC: Sandra Degroot; Trae Owen Tar Processing Technician: Signed 07-Sep-2014 PT Discharge Summary Result: Comments: See Note; NOTES: [facility] [address] [place] [address] Fax REHABILITATION SERVICES DISCHARGE SUMMARY MR#: [id number] Acct: [id number] Name: TISH MALAVE Rep #: [id number] : 1950 63 From: Ainsley Ingram Referring Dr.: Sandra Degroot Status: PRE RCR Eval Date: Discharge Da te: DATE OF SERVICE: Date of initial evaluation is July 20, 2014. The patient attended physical therapy for initial evaluation and has not returned since. PT feels it is appropriate she be dis charged from [facility]. Ainsley Ingram DPT T: CHAPIN JOB: [id number] <Electronically signed by Ainsley Ingram > 09/07/14 1459 CC: Signed 20-Jul-2014 Inital Evaluation - PT Result: Comments: See Note; NOTES: [facility] [address] [place] [address] Fax REHABILITATION SERVICES INITIAL EVALUATION MR#: [id number] Acct: [id number] Name: TISH MALAVE Rep #: [id number] : 1950 63 From: Ainsley Ingram Referring Dr.: Sandra Degroot Status: REG R Insurance: [employer] [place] [facility] Pham Date: DATE OF SERVICE: 07/20/2014 Tish Malave is a 63-year-old female referred to physical therapy by Sandra Degroot with medical diagnosis of right knee pain. SUBJECTIVE: The pat ient reports her knee has been swelling for approximately 4 weeks. She did not have any pain with it until she went and saw Sandra Degroot, who poked around on knee. She reports that she thinks it might be from an inflammatory arthritis. Pain at its worst is a 4/10, best is 0/10, currently is 2/10. The patient reports pain is dull and achy. No numbness and tingling. Aggravated by nothing, eases are elevation. X-rays were negative. She uses a cane for short distances. No cane or assistive device at home and a roller aider for long distances. She lives in a 2-story home with her , but prado s have a chair lift. She does drive. Her does all of the chores. PAST MEDICAL HISTORY AND MEDICATIONS: Listed in the chart. OBJECTIVE: POSTURE: Forward head, rounded shoulders, increased kyphosis. The patient is overweight. GAIT: Antalgic. She uses a roller aider walker with decreased stride length. PALPATION: Tender along medial and lateral joint line. RANGE OF MOTION: 0 degrees of extension to 95 degrees of flexion. SENSATION/REFLEXES: Intact. FLEXIBILITY: Hamstrings have a severe restriction. STRENGTH: Core strength/stabilization is poor. Hip strength is 4-/5 throughout. Kn ee flexion and extension 4/5, dorsiflexion and plantar flexion 5/5. Edema around the patella on the right is 48 cm, on the left is 42 cm. SPECIAL TESTS: Ascend and descend stairs nonreciprocally. BALANCE: The patient is able to weight shift; however, she is unable to single leg stance. INITIAL TREATMENT EVALUATION: Educated the patient on diagnosis and plan of care. The patient is agreeable to plan of care. Instructed the patient on home exercise program, which included aquatic orientation. ASSESSMENT: Tish is a 63-year-old female referred to physical therapy with a medical diagnos is of right knee pain. The patient presents with hypomobility. The patient has decreased lower extremity strength, flexibility, muscular endurance with an abnormal gait pattern. The patient's rehab ilitation potential is fair. The patient will benefit from skilled physical therapy to solve the following problems and meet the following goals. PROBLEM LIST: 1. Decreased knowledge of home exerci se program. 2. Decreased strength. 3. Abnormal gait pattern. 4. Increased pain with ADLs. GOALS: 1. The patient will be independent with home exercise program progression. 2. The patient will dem onstrate 5/5 strength in lower extremity where deficit to ease ADLs. 3. The patient will ambulate greater than 300 feet with a normalized gait pattern. 4. The patient will report 0/10 pain for 1 we ek. PLAN OF CARE: The patient will be seen 1-2 times a week for 4 weeks. The patient will be educated on diagnosis and plan of care. The patient will be educated in home exercise program progress ion. Interventions to include therapeutic exercise, therapeutic activity, neuromuscular education, gait, manual modalities in an aquatic setting. The patient's anticipated discharge plan is independ ent with home exercise program and return to normalized activities with decreased pain. Ainsley Ingram DPT T: CHAPIN JOB: [id number] <Electronically signed by Ainsley Ingram > 5 1632 CC: Signed For Medicare only, by signing this I certify the plan of care. Physicians Signature Date 14-Jul-2014 Knee 4 or More Views Result: Comments: See Note; NOTES: [facility] Imaging Services [address] [place] [address] Radiology Report MR#: [id number] Acct: [id number] Name: TISH MALAVE Rep #: [id number] : 1950 F 63 From: Nasir Rodriguez DO PCP: Sandra Degroot Status: REG CLI Study: Knee 4 or More Views Date of Exam: 07/14/14 Exam# [id number] Ordering Dr: Sandra Degroot STUDY: X-RAY - RIGHT KNE E REASON FOR EXAM: Female, 63 years old. Pain. TECHNIQUE: 4 view(s) of the knee. COMPARISON: None. FINDINGS: Normal visualized distal femur. Normal visualiz ed proximal tibia and fibula. Normal proximal tibiofibular articulation. There is no acute fracture, dislocation or destructive osseous pathology. Normal medial femorotibial compartment. Normal late ral femorotibial compartment. There is mild degenerative arthrosis of the patellofemoral articulation. There is no demonstrated joint effusion. The soft tissue structures are unremarkable. IMPRESSION: Degenerative arthrosis. Electronically Signed: Nasir Rodriguez DO at 15:14 EDT Tel [phone], Service support [phone], RAD/Knee 4 or More Views IMPRESSION: Degenerative arthrosis. Electronically Signed: Nasir Rodriguez DO at 15:14 EDT Tel [phone], Service support [phone], Fax CC: Sandra Degroot Tar Processing Technician: Signed 24-May-2014 Bilat Diag Digital AND CAD Result: Comments: See Note; NOTES: [facility] Imaging Services [address] [place] [id number] Breast Imaging Report MR#: [id number] Acct: [id number] Name: TISH MALAVE Rep #: [id number] : 1950 F 63 From: Xu Adams MD PCP: Sandra Degroot Status: REG CLI Study: Bilat Diag Digital AND CAD Date of Exam: 05/24/14 Exam# [id number] Ordering Dr: Trae Owen MD M AMMOGRAPHY - BILATERAL DIAGNOSTIC REASON FOR EXAM: Female, 63 years old. Status post left lumpectomy with radiation therapy. PERTINENT HISTORY: Personal history of breast cancer. Sister with breast cancer. TECHNIQUE: Digital examination. Mediolateral oblique (MLO) and craniocaudad (CC) views of both breasts were obtained. CAD: CAD was performed on this study. COMPARISON: Comparison is made with prior study dated September 04, 2013 and September 23, 2012. FINDINGS: Breast Composition: There are scattered areas of fibroglandular density. There are no dominan t masses or suspicious calcifications. The previously seen dominant mass lesion in the upper deep portion of the left breast has resolved. There is evidence of asymmetrical soft tissue density at the site of the left lumpectomy. This is indicative of postoperative change. There is evidence of overlying skin thickening. No other significant abnormalities are identified. IMPRESSION: The previously seen postoperative seroma as resolved. Residual post left lumpectomy changes are seen. One year follow-up recommended. (A) ASSESSMENT CATEGORY: BIRADS Category 2: Benign. A letter regarding these results will be sent to the patient by the facility within 30 days. Approximately 10% of breast cancers are not detected by mammography. A normal mammogram should not delay biopsy of a clinically suspicious abnormality. Electronically Signed: Xu Adams MD at 9:22 EST Tel [phone], Service suppo rt [phone], CC: Sandra Degroot; Trae Owen Tar Processing Technician: Signed 04-Sep-2013 Breast Unilateral Result: Comments: See Note; NOTES: [facility] Imaging Services [address] [place] [address] Ultrasound Report MR#: [id number] Acct: [id number] Name: TISH MALAVE Rep #: [id number] : 1950 F 62 From: Xu Adams MD PCP: Sandra Degroot Status: REG CLI Study: Breast Unilateral Date of Exam: 09/04/13 Exam# [id number] Ordering Dr: Trae Owen MD STUDY: ULTRASO UND BREAST(S) - LEFT REASON FOR EXAM: Female, 62 years old. Palpable lump left breast. TECHNIQUE: Axial and longitudinal images of the LEFT breast were performed [facility] COMPARISON: Comparison is made with prior mammogram done earlier in the day. FINDINGS: LEFT BREAST: There is a 4.7 cm x 4.5 cm right 2.9 cm anecho ic fluid collection at the 1:00 position of the breast at 2 cm from the nipple. This corresponds to the mammographic findings and the palpable area. This is at the lumpectomy site. This may represent a postoperative seroma. IMPRESSION: Large cystic collection in the upper outer quadrant of the left breast as described. This corresponds to the patient's palpa ble abnormality. This corresponds to the lumpectomy site. ASSESSMENT CATEGORY: BIRADS Category 2: Benign finding(s). Electronically Signed: Xu Adams MD at 14:14 EDT Tel [phone], Service support [phone], CC: Sandra Degroot; Trae Owen Tar Processing Technician: Signed 04-Sep-2013 Bilat Diag Digital & CAD Result: Comments: See Note; NOTES: [facility] Imaging Services [address] [place] [address] Breast Imaging Report MR#: [id number] Acct: [id number] Name: TISH MALAVE Rep #: [id number] : 1950 F 62 From: Xu Adams MD PCP: Sandra Degroot Status: REG CLI Exam# [id number] Ordering Dr: Trae Owen MD MAMMOGRAPHY - BILATERAL DIAGNOSTIC REASON FOR EXAM: Norah joy, 62 years old. Left breast lump. PERTINENT HISTORY: Personal history of breast cancer. TECHNIQUE: Digital examination. Mediolateral oblique (MLO) and craniocaudad (CC) views of both breasts were obtained. CAD: CAD was performed on this study. COMPARISON: Comparison is made with prior study dated September 23, 2012 and September 21, 2011. FINDINGS: The breast c omposition is composed of scattered areas of fibroglandular densities ranging from 25% to 50% of the total breast volume. Since prior study, the patient underwent a right sided lumpectomy. There now is evidence of a 4.5 cm x 4.9 cm nodular density at the surgical site. This may represent a postoperative seroma. Correlation with ultrasound is recommended. There is evidence of overlying skin thi ckening in the left breast. IMPRESSION: Nodular density in the left breast at the surgical site. Correlation with ultrasound is recommended. ASSESSMENT CATEGORY: BIRADS Category 0: Incomplete. Need additional imaging evaluation. A letter regarding these results will be sent to the patient by the facility within 30 days. Approximately 10% of breast cancers are not detected by mammography. A normal mammogram should not delay biopsy of a clinically suspicious abnormality. Electronically Signed: Xu Adams MD at 15:01 EDT Tel [phone], Service support [phone], CC: Sandra Zane; Trae Owen Tar Processing Technician: Signed 04-Sep-2013 Yesika Hernandez Digital & CAD Result: Comments: See Note; NOTES: [facility] Imaging Services [address] [place] [address] Breast Imaging Report MR#: [id number] Acct: [id number] Name: TISH MALAVE Rep #: [id number] : 1950 F 62 From: Xu Adams MD PCP: Sandra Degroot Status: REG CLI Exam# [id number] Ordering Dr: Trae Owen MD ADDENDUM by Xu Adams MD on 09/07/13 at 1603 === ADDENDUM This is an addendum report. The report is dictated for clarity of the laterality. The pa tient is status post left lumpectomy and not the right lumpectomy. Electronically Signed: Xu Adams MD at 16:03 EDT Tel [phone], Service support [phone], Fax 09/07/13 1612 Date cc: Sandra Degroot; Trae Owen * Signed MAMMOGRAPHY - BILATERAL DIAGNOSTIC REASON FOR EXAM: Female, 62 years old. Left breast lump. PERTINENT HISTORY : Personal history of breast cancer. TECHNIQUE: Digital examination. Mediolateral oblique (MLO) and craniocaudad (CC) views of both breasts were obtained. CAD: CAD was performed on this study. COM PARISON: Comparison is made with prior study dated September 23, 2012 and September 21, 2011. FINDINGS: The breast composition is composed of scattered areas of fibrogland ular densities ranging from 25% to 50% of the total breast volume. Since prior study, the patient underwent a right sided lumpectomy. There now is evidence of a 4.5 cm x 4.9 cm nodular density at th e surgical site. This may represent a postoperative seroma. Correlation with ultrasound is recommended. There is evidence of overlying skin thickening in the left breast. IMPRESSION: Nodular density in the left breast at the surgical site. Correlation with ultrasound is recommended. ASSESSMENT CATEGORY: BIRADS Categor y 0: Incomplete. Need additional imaging evaluation. A letter regarding these results will be sent to the patient by the facility within 30 days. Approximately 10% of breast cancers are not detected by mammography. A normal mammogram should not delay biopsy of a clinically suspicious abnormality. 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 Status: Active No Drug Use Status: Active Non Drinker/No Alcohol Use Status: Active Tobacco Use: Current every day smoker. Status: Active Smoking Status Name Dates Details Current every day smoker Vital Signs Date Test Result Details [id number] Temperature 96.7 f Comments: Method: Temporal Pulse 74 /min Comments: Pattern: Regular Respiration Rate 18 /min Comments: Pattern: Unlabored O2 SAT 95 % Comments: 3L O2 BP Systolic 148 mm[Hg] Comments: Patient Position: Sitting; Cuff Location: Left Arm; Cuff Size: Standard BP Diastolic 88 mm[Hg] Comments: Patient Position: Sitting; Cuff Location: Left Arm; Cuff Size: Standard Weight 238 lb Height 63 in Body Mass Index Calculated 42.16 kg/m2 Body Surface Area Calculated 2.08 m2 :21 Temperature 97.8 f Comments: Method: Temporal Pulse 57 /min Comments: Pattern: Regular Respiration Rate 18 /min Comments: Pattern: Unlabored O2 SAT 96 % Comments: Room air BP Systolic 132 mm[Hg] Comments: Patient Position: Sitting; Cuff Location: Left Arm; Cuff Size: Standard BP Diastolic 86 mm[Hg] Comments: Patient Position: Sitting; Cuff Location: Left Arm; Cuff Size: Standard Weight 238 lb Height 63 in Body Mass Index Calculated 42.16 kg/m2 Body Surface Area Calculated 2.08 m2 :41 Comments: Recheck BP 170/88 Temperature 97.5 f Comments: Method: Temporal Pulse 81 /min Comments: Pattern: Regular Respiration Rate 17 /min Comments: Pattern: Unlabored O2 SAT 98 % Comments: Room air BP Systolic 178 mm[Hg] Comments: Patient Position: Sitting; Cuff Location: Left Arm; Cuff Size: Standard BP Diastolic 92 mm[Hg] Comments: Patient Position: Sitting; Cuff Location: Left Arm; Cuff Size: Standard Weight 232 lb Height 63 in Body Mass Index Calculated 41.1 kg/m2 Body Surface Area Calculated 2.06 m2 :31 Temperature 96.5 f Comments: Method: Temporal Pulse 97 /min Comments: Pattern: Regular Respiration Rate 16 /min Comments: Pattern: Unlabored O2 SAT 97 % Comments: Room air BP Systolic 136 mm[Hg] Comments: Patient Position: Sitting; Cuff Location: Left Arm; Cuff Size: Standard BP Diastolic 82 mm[Hg] Comments: Patient Position: Sitting; Cuff Location: Left Arm; Cuff Size: Standard Weight 225 lb Height 63 in Body Mass Index Calculated 39.86 kg/m2 Body Surface Area Calculated 2.03 m2 :02 Temperature 97 f Pulse 74 /min Comments: Pattern: Regular Respiration Rate 17 /min Comments: Pattern: Unlabored O2 SAT 95 % Comments: Room air BP Systolic 140 mm[Hg] Comments: Patient Position: Sitting; Cuff Location: Left Arm; Cuff Size: Standard BP Diastolic 84 mm[Hg] Comments: Patient Position: Sitting; Cuff Location: Left Arm; Cuff Size: Standard Weight 220.375 lb Height 63 in Body Mass Index Calculated 39.04 kg/m2 Body Surface Area Calculated 2.02 m2 :15 Temperature 96.3 f Pulse 74 /min Comments: Pattern: Regular Respiration Rate 18 /min Comments: Pattern: Unlabored O2 SAT 95 % Comments: Room air BP Systolic 138 mm[Hg] Comments: Patient Position: Sitting; Cuff Location: Left Arm; Cuff Size: Standard BP Diastolic 88 mm[Hg] Comments: Patient Position: Sitting; Cuff Location: Left Arm; Cuff Size: Standard Weight 227 lb Height 63 in Body Mass Index Calculated 40.21 kg/m2 Body Surface Area Calculated 2.04 m2 :34 Temperature 97.8 f Pulse 74 /min Comments: Pattern: Regular Respiration Rate 17 /min Comments: Pattern: Unlabored O2 SAT 94 % Comments: Room air BP Systolic 134 mm[Hg] Comments: Patient Position: Sitting; Cuff Location: Left Arm; Cuff Size: Standard BP Diastolic 82 mm[Hg] Comments: Patient Position: Sitting; Cuff Location: Left Arm; Cuff Size: Standard Weight 224 lb Height 63 in Body Mass Index Calculated 39.68 kg/m2 Body Surface Area Calculated 2.03 m2 :19 Temperature 97.3 f Pulse 71 /min Comments: Pattern: Regular Respiration Rate 16 /min Comments: Pattern: Unlabored O2 SAT 91 % Comments: Room air BP Systolic 138 mm[Hg] Comments: Patient Position: Sitting; Cuff Location: Left Arm; Cuff Size: Standard BP Diastolic 84 mm[Hg] Comments: Patient Position: Sitting; Cuff Location: Left Arm; Cuff Size: Standard Weight 228.375 lb Height 63 in Body Mass Index Calculated 40.45 kg/m2 Body Surface Area Calculated 2.05 m2 :08 Temperature 97 f Pulse 66 /min Comments: Pattern: Regular Respiration Rate 18 /min Comments: Pattern: Unlabored O2 SAT 95 % Comments: Room air BP Systolic 124 mm[Hg] Comments: Patient Position: Sitting; Cuff Location: Left Arm; Cuff Size: Standard BP Diastolic 82 mm[Hg] Comments: Patient Position: Sitting; Cuff Location: Left Arm; Cuff Size: Standard Weight 231 lb Height 63 in Body Mass Index Calculated 40.92 kg/m2 Body Surface Area Calculated 2.06 m2 :26 Temperature 97.4 f Pulse 64 /min Comments: Pattern: Regular Respiration Rate 16 /min Comments: Pattern: Unlabored O2 SAT 95 % Comments: Room air BP Systolic 124 mm[Hg] Comments: Patient Position: Sitting; Cuff Location: Left Arm; Cuff Size: Standard BP Diastolic 82 mm[Hg] Comments: Patient Position: Sitting; Cuff Location: Left Arm; Cuff Size: Standard Weight 231 lb Height 63 in Body Mass Index Calculated 40.92 kg/m2 Body Surface Area Calculated 2.06 m2 :18 Temperature 97.8 f Pulse 77 /min Comments: Pattern: Regular Respiration Rate 18 /min Comments: Pattern: Unlabored O2 SAT 94 % Comments: Room air BP Systolic 124 mm[Hg] Comments: Patient Position: Sitting; Cuff Location: Left Arm; Cuff Size: Standard BP Diastolic 82 mm[Hg] Comments: Patient Position: Sitting; Cuff Location: Left Arm; Cuff Size: Standard Weight 231 lb Height 63 in Body Mass Index Calculated 40.92 kg/m2 Body Surface Area Calculated 2.06 m2 :09 Temperature 97.1 f Pulse 63 /min Comments: Pattern: Regular Respiration Rate 16 /min Comments: Pattern: Unlabored O2 SAT 97 % Comments: Room air BP Systolic 126 mm[Hg] Comments: Patient Position: Sitting; Cuff Location: Left Arm; Cuff Size: Standard BP Diastolic 84 mm[Hg] Comments: Patient Position: Sitting; Cuff Location: Left Arm; Cuff Size: Standard Weight 230 lb Height 63 in Body Mass Index Calculated 40.74 kg/m2 Body Surface Area Calculated 2.05 m2 :47 Temperature 97.3 f Pulse 58 /min Comments: Pattern: Regular Respiration Rate 17 /min Comments: Pattern: Unlabored O2 SAT 96 % Comments: Room air BP Systolic 118 mm[Hg] Comments: Patient Position: Sitting; Cuff Location: Left Arm; Cuff Size: Standard BP Diastolic 80 mm[Hg] Comments: Patient Position: Sitting; Cuff Location: Left Arm; Cuff Size: Standard Weight 231 lb Height 63 in Body Mass Index Calculated 40.92 kg/m2 Body Surface Area Calculated 2.06 m2 :04 Temperature 97.3 f Pulse 61 /min Comments: Pattern: Regular Respiration Rate 16 /min Comments: Pattern: Unlabored O2 SAT 95 % Comments: Room air BP Systolic 132 mm[Hg] Comments: Patient Position: Sitting; Cuff Location: Left Arm; Cuff Size: Standard BP Diastolic 84 mm[Hg] Comments: Patient Position: Sitting; Cuff Location: Left Arm; Cuff Size: Standard Weight 220.125 lb Height 63 in Body Mass Index Calculated 38.99 kg/m2 Body Surface Area Calculated 2.01 m2 :12 Temperature 97 f Pulse 58 /min Comments: Pattern: Regular Respiration Rate 17 /min Comments: Pattern: Unlabored O2 SAT 95 % Comments: Room air BP Systolic 128 mm[Hg] Comments: Patient Position: Sitting; Cuff Location: Left Arm; Cuff Size: Standard BP Diastolic 84 mm[Hg] Comments: Patient Position: Sitting; Cuff Location: Left Arm; Cuff Size: Standard Weight 220.125 lb Height 63 in Body Mass Index Calculated 38.99 kg/m2 Body Surface Area Calculated 2.01 m2 :12 Temperature 96.8 f Pulse 62 /min Comments: Pattern: Regular Respiration Rate 17 /min Comments: Pattern: Unlabored O2 SAT 96 % Comments: Room air BP Systolic 134 mm[Hg] Comments: Patient Position: Sitting; Cuff Location: Left Arm; Cuff Size: Standard BP Diastolic 82 mm[Hg] Comments: Patient Position: Sitting; Cuff Location: Left Arm; Cuff Size: Standard Weight 227.25 lb Height 63 in Body Mass Index Calculated 40.26 kg/m2 Body Surface Area Calculated 2.04 m2 :39 Comments: hearing and vision wnl. Glaucoma screening done 3 years ago Temperature 97.2 f Pulse 91 /min Comments: Pattern: Regular Respiration Rate 16 /min Comments: Pattern: Unlabored O2 SAT 96 % Comments: Room air BP Systolic 124 mm[Hg] Comments: Patient Position: Sitting; Cuff Location: Left Arm; Cuff Size: Standard BP Diastolic 78 mm[Hg] Comments: Patient Position: Sitting; Cuff Location: Left Arm; Cuff Size: Standard Weight 227.25 lb Height 63 in Body Mass Index Calculated 40.26 kg/m2 Body Surface Area Calculated 2.04 m2 :56 Temperature 97 f Respiration Rate 18 /min Comments: Pattern: Unlabored BP Systolic 132 mm[Hg] Comments: Patient Position: Sitting; Cuff Location: Left Arm; Cuff Size: Standard BP Diastolic 82 mm[Hg] Comments: Patient Position: Sitting; Cuff Location: Left Arm; Cuff Size: Standard Weight 232 lb Height 63 in Body Mass Index Calculated 41.1 kg/m2 Body Surface Area Calculated 2.06 m2 :37 Temperature 97.8 f Comments: Method: Oral Pulse 66 /min Comments: Pattern: Regular Respiration Rate 18 /min O2 SAT 97 % Comments: Room air BP Systolic 126 mm[Hg] Comments: Patient Position: Sitting; Cuff Location: Left Arm; Cuff Size: Standard BP Diastolic 78 mm[Hg] Comments: Patient Position: Sitting; Cuff Location: Left Arm; Cuff Size: Standard Weight 229.125 lb Height 63 in Body Mass Index Calculated 40.59 kg/m2 Body Surface Area Calculated 2.05 m2 :32 Temperature 97.6 f Pulse 76 /min Comments: Pattern: Regular Respiration Rate 18 /min Comments: Pattern: Unlabored O2 SAT 97 % Comments: Room air BP Systolic 142 mm[Hg] Comments: Patient Position: Sitting; Cuff Location: Left Arm; Cuff Size: Standard BP Diastolic 78 mm[Hg] Comments: Patient Position: Sitting; Cuff Location: Left Arm; Cuff Size: Standard Weight 228.125 lb Height 63 in Body Mass Index Calculated 40.41 kg/m2 Body Surface Area Calculated 2.05 m2 :13 Temperature 97.9 f Pulse 76 /min Comments: Pattern: Regular Respiration Rate 18 /min Comments: Pattern: Unlabored O2 SAT 96 % Comments: Room air BP Systolic 142 mm[Hg] Comments: Patient Position: Sitting; Cuff Location: Left Arm; Cuff Size: Standard BP Diastolic 86 mm[Hg] Comments: Patient Position: Sitting; Cuff Location: Left Arm; Cuff Size: Standard Weight 232.125 lb Height 63 in Body Mass Index Calculated 41.12 kg/m2 Body Surface Area Calculated 2.06 m2 :15 Temperature 97.3 f Pulse 71 /min Comments: Pattern: Regular Respiration Rate 18 /min Comments: Pattern: Unlabored O2 SAT 96 % Comments: Room air BP Systolic 122 mm[Hg] Comments: Patient Position: Sitting; Cuff Location: Left Arm; Cuff Size: Standard BP Diastolic 80 mm[Hg] Comments: Patient Position: Sitting; Cuff Location: Left Arm; Cuff Size: Standard Weight 226.5 lb Height 63 in Body Mass Index Calculated 40.12 kg/m2 Body Surface Area Calculated 2.04 m2 :00 Temperature 97.7 f Pulse 56 /min Comments: Pattern: Regular Respiration Rate 18 /min Comments: Pattern: Unlabored O2 SAT 96 % Comments: Room air BP Systolic 138 mm[Hg] Comments: Patient Position: Sitting; Cuff Location: Left Arm; Cuff Size: Standard BP Diastolic 84 mm[Hg] Comments: Patient Position: Sitting; Cuff Location: Left Arm; Cuff Size: Standard Weight 225.125 lb Height 63 in Body Mass Index Calculated 39.88 kg/m2 Body Surface Area Calculated 2.03 m2 :08 Temperature 97.5 f Pulse 58 /min Comments: Pattern: Regular Respiration Rate 16 /min Comments: Pattern: Unlabored O2 SAT 96 % Comments: Room air BP Systolic 126 mm[Hg] Comments: Patient Position: Sitting; Cuff Location: Left Arm; Cuff Size: Standard BP Diastolic 80 mm[Hg] Comments: Patient Position: Sitting; Cuff Location: Left Arm; Cuff Size: Standard Weight 225.125 lb Height 63 in Body Mass Index Calculated 39.88 kg/m2 Body Surface Area Calculated 2.03 m2 :49 Temperature 97.6 f Comments: Method: Oral Pulse 68 /min Comments: Pattern: Regular Respiration Rate 16 /min O2 SAT 95 % Comments: Room air BP Systolic 138 mm[Hg] Comments: Patient Position: Sitting; Cuff Location: Left Arm; Cuff Size: Standard BP Diastolic 82 mm[Hg] Comments: Patient Position: Sitting; Cuff Location: Left Arm; Cuff Size: Standard Weight 229.125 lb Height 63 in Body Mass Index Calculated 40.59 kg/m2 Body Surface Area Calculated 2.05 m2 :25 Pulse 72 /min Comments: Pattern: Regular Respiration Rate 16 /min Comments: Pattern: Unlabored O2 SAT 97 % Comments: Room air BP Systolic 172 mm[Hg] Comments: Patient Position: Sitting; Cuff Location: Left Arm; Cuff Size: Standard BP Diastolic 80 mm[Hg] Comments: Patient Position: Sitting; Cuff Location: Left Arm; Cuff Size: Standard Weight 200.375 lb :31 Temperature 98.6 f Comments: Method: Oral Pulse 60 /min Comments: Pattern: Regular Respiration Rate 18 /min O2 SAT 98 % Comments: Room air BP Systolic 144 mm[Hg] Comments: Patient Position: Sitting; Cuff Location: Left Arm; Cuff Size: Standard BP Diastolic 82 mm[Hg] Comments: Patient Position: Sitting; Cuff Location: Left Arm; Cuff Size: Standard Weight 200.375 lb :51 Temperature 96.5 f Comments: Method: Oral Pulse 72 /min Comments: Pattern: Regular Respiration Rate 18 /min O2 SAT 93 % Comments: Room air BP Systolic 142 mm[Hg] Comments: Patient Position: Sitting; Cuff Location: Left Arm; Cuff Size: Standard BP Diastolic 88 mm[Hg] Comments: Patient Position: Sitting; Cuff Location: Left Arm; Cuff Size: Standard Weight 177.5 lb Height 63 in Body Mass Index Calculated 31.44 kg/m2 Body Surface Area Calculated 1.84 m2 :18 Temperature 97.4 f Comments: Method: Oral Pulse 64 /min Comments: Pattern: Regular Respiration Rate 16 /min O2 SAT 98 % Comments: Room air BP Systolic 136 mm[Hg] Comments: Patient Position: Sitting; Cuff Location: Left Arm; Cuff Size: Standard BP Diastolic 80 mm[Hg] Comments: Patient Position: Sitting; Cuff Location: Left Arm; Cuff Size: Standard Weight 177.5 lb Height 63 in Body Mass Index Calculated 31.44 kg/m2 Body Surface Area Calculated 1.84 m2 :09 Temperature 98.6 f Comments: Method: Oral Pulse 62 /min Comments: Pattern: Regular Respiration Rate 17 /min O2 SAT 91 % Comments: Room air BP Systolic 158 mm[Hg] Comments: Patient Position: Sitting; Cuff Location: Left Arm; Cuff Size: Standard BP Diastolic 78 mm[Hg] Comments: Patient Position: Sitting; Cuff Location: Left Arm; Cuff Size: Standard Weight 177.5 lb Height 63 in Body Mass Index Calculated 31.44 kg/m2 Body Surface Area Calculated 1.84 m2 :52 Temperature 98.2 f Comments: Method: Oral Pulse 60 /min Comments: Pattern: Regular Respiration Rate 16 /min O2 SAT 96 % Comments: Room air BP Systolic 162 mm[Hg] Comments: Patient Position: Sitting; Cuff Location: Left Arm; Cuff Size: Standard BP Diastolic 82 mm[Hg] Comments: Patient Position: Sitting; Cuff Location: Left Arm; Cuff Size: Standard Weight 179.3125 lb Height 63 in Body Mass Index Calculated 31.76 kg/m2 Body Surface Area Calculated 1.85 m2 Results Date Description Value Details :36 CBC W/Diff, Automated Comments: Reason for Laboratory Test .[facility] [id number] [place], [place], [id number] Absolute Lymph 1.42 {X10_3/ul} (Normal) Range: 0.83-4.51 Absolute Neut 7.8 {X10_3/uL} (Abnormal) Range: 2.0-7.7 IM GRAN % 0.200 % (Normal) Range: 0.0-0.9 Comments: IG% - Immature Granulocytes (promyelocytes, myelocytes andmetamyelocytes) > 1% indicates that a LEFT SHIFT is Present. BASO% 0.3 % (Normal) Range: 0-1 EO% 4.4 % (Normal) Range: 0-5 MONO% 5.9 % (Normal) Range: 0-10 LY% 13.8 % (Abnormal) Range: 19-41 NEUT% 75.4 % (Abnormal) Range: 47-70 MPV 8.8 fL (Normal) Range: 6.2-12.0 PLT 348 K/mm3 (Normal) Range: 150-450 RDW SD 43.3 fL (Normal) Range: 35.1-43.9 RDW CV 12.7 % (Normal) Range: 11.6-14.6 MCHC 34.9 {g/gl} (Normal) Range: 32-36 MCH 33.3 pg (Abnormal) Range: 27.0-32.0 MCV 95.3 fL (Normal) Range: 81-99 HCT 43.0 % (Normal) Range: 37-47 HGB 15.0 g/dL (Normal) Range: 12.0-15.0 RBC 4.51 {M/mm3} (Normal) Range: 4.2-5.4 WBC 10.3 K/mm3 (Normal) Range: 4.4-11.0 45-Xmh-370063:36 Comprehensive Metabolic Profil Comments: Reason for Laboratory Test .[facility] [address] [place], [place], [id number] GAP 6 (Normal) Range: 5-15 CO2 27.0 mmol/L (Normal) Range: 21.0-32.0 CL 102 mmol/L (Normal) Range: 98-107 K 4.1 mmol/L (Normal) Range: 3.5-5.1 NA 135 mmol/L (Abnormal) Range: 136-145 T BILI 0.50 mg/dL (Normal) Range: 0.20-1.00 ALT 28 U/L (Normal) Range: 13-56 ALK P 124 U/L (Abnormal) Range: 45-117 AST 15 U/L (Normal) Range: 15-37 CA 8.9 mg/dL (Normal) Range: 8.5-10.1 A/G 0.8 {RATIO} (Abnormal) Range: 0.9-2.4 GLOB 4.2 g/dL (Normal) Range: 2.2-4.2 ALB 3.3 g/dL (Normal) Range: 3.2-5.0 T PROT 7.5 g/dL (Normal) Range: 6.4-8.2 BUN/CRE 10.3 {RATIO} (Normal) Range: 10-20 Estimated CRCL 51.32 ml/min (Normal) EST GFR - AA 83 mL/min (Normal) Comments: GFR Calc EST GFR 68 mL/min (Normal) Comments: Non- GFR Calc CREAT,SERUM 0.88 mg/dL (Normal) Range: 0.55-1.02 Comments: The validity of the calculated GFR AND GFRAA in patients over70 years has not been determined. Clinical correlation isessential. BUN 9 mg/dL (Normal) Range: 7-18 GLU 120 mg/dL (Abnormal) Range: 74-106 Comments: Fasting Glucose result from 100 to 125 mg/dLsuggests IMPAIRED HOMEOSTASIS per A.D.A. criteria.Please note revised GLUCOSE reference range qoirxywbu07/02/2018. 63-Cma-802374:45 URINE FABIAN CULTURE-IDENTIFICATN Comments: PATIENT NOT FASTINGPERFORMED BY: [facility] Ehoikt3342 [facility] [id number] Information: SRC:ALLA ([id number]) Antimicrobial MIHEAD (Normal) Comments: S = Susceptible; I = Intermediate; R = Resistant P = Positive; N = Negative MICS are expressed in micrograms per mL Antibiotic RSLT#1 RSLT#2 RS Susceptibility LT#3 RSLT#4Amoxicillin/Clavulanic Acid SAmpicillin RCefepime SCeftriaxone SCefuroxime SCiprofloxacin SErtapenem SGentamicin SImipenem SLevofloxacin SMeropenem SNitrofurantoin IPipera cillin/Tazobactam STetracycline STobramycin STrimethoprim/Sulfa S Result 1 Klebsiella Comments: Greater than 100,000 colony forming units per mLCefazolin <=4 ug/mLCefazolin with an LAWRENCE <=16 predicts susceptibility to the oral agentscefaclor, cefdinir, cefpodoxime, cefprozil, cefuroxime, ceph pneumoniae alexin,and loracarbef when used for therapy of uncomplicated urinary tractinfections due to E. coli, Klebsiella pneumoniae, and Proteusmirabilis. (Abnormal) Urine Final report Culture,Comprehensive (Abnormal) 44-Zvv-[id number]:24 Urinalysis, Office (98284) UA - LEUKOCYTE ESTERASE Trace (Normal) UA - NITRITE Negative (Normal) URINE UROBILINGN DC TIMED Normal mg/dL (Normal) UA - PROTEIN Negative mg/dL (Normal) UA - PH 7 (Normal) UA - BLOOD Hemolyzed Trace (Normal) UA - SPECIFIC GRAVITY 1.015 (Normal) UA - KETONES Negative mg/dL (Normal) UA - BILIRUBIN Negative (Normal) UA - GLUCOSE Negative (Normal) 07-Qus-839174:23 HgA1C , Office (83226) HgA1C , Office 5.8 % (Normal) Range: 4.6 - 7.1 53-Bpf-799048:23 Blood Glucose , Office (30556) Blood Glucose , Office 117 (Normal) 88-Btv-459208:47 CREATININE FINGERSTICK Comments: [facility]Point [facility] [address] [place] [address] EGFR WB > 60.0000 mL/min (Normal) CREATININE WB 0.9 mg/dL (Normal) Range: 0.55-1.02 :04 HgA1C , Office (27948) HgA1C , Office 5.7 % (Normal) Range: 4.6 - 7.1 :04 Blood Glucose , Office (21676) Blood Glucose , Office 108 (Normal) :50 CBC W/Diff, Automated Comments: Reason for Laboratory Test .[facility] [address] [place], [address] Absolute Lymph 1.83 {X10_3/ul} (Normal) Range: 0.83-4.51 Absolute Neut 3.7 {X10_3/uL} (Normal) Range: 2.0-7.7 IM GRAN % 0.200 % (Normal) Range: 0.0-0.9 Comments: IG% - Immature Granulocytes (promyelocytes, myelocytes andmetamyelocytes) > 1% indicates that a LEFT SHIFT is Present. BASO% 0.3 % (Normal) Range: 0-1 EO% 3.4 % (Normal) Range: 0-5 MONO% 11.2 % (Abnormal) Range: 0-10 LY% 28.4 % (Normal) Range: 19-41 NEUT% 56.5 % (Normal) Range: 47-70 MPV 9.0 fL (Normal) Range: 6.2-12.0 PLT 325 K/mm3 (Normal) Range: 150-450 RDW SD 45.1 fL (Abnormal) Range: 35.1-43.9 RDW CV 13.1 % (Normal) Range: 11.6-14.6 MCHC 34.7 {g/gl} (Normal) Range: 32-36 MCH 32.6 pg (Abnormal) Range: 27.0-32.0 MCV 94.1 fL (Normal) Range: 81-99 HCT 42.7 % (Normal) Range: 37-47 HGB 14.8 g/dL (Normal) Range: 12.0-15.0 RBC 4.54 {M/mm3} (Normal) Range: 4.2-5.4 WBC 6.5 K/mm3 (Normal) Range: 4.4-11.0 28-Eus-548765:50 Comprehensive Metabolic Profil Comments: Reason for Laboratory Test .[facility] [address] [place], [address] GAP 7 (Normal) Range: 5-15 CO2 31.0 mmol/L (Normal) Range: 21.0-32.0 CL 97 mmol/L (Abnormal) Range: 98-107 K 4.0 mmol/L (Normal) Range: 3.5-5.1 NA 135 mmol/L (Abnormal) Range: 136-145 T BILI 0.60 mg/dL (Normal) Range: 0.20-1.00 ALT 20 U/L (Normal) Range: 13-56 Comments: Please note revised ALT reference range jmfhiczyw29/28/2018. ALK P 135 U/L (Abnormal) Range: 45-117 AST 16 U/L (Normal) Range: 15-37 CA 9.0 mg/dL (Normal) Range: 8.5-10.1 A/G 0.8 {RATIO} (Abnormal) Range: 0.9-2.4 GLOB 4.3 g/dL (Abnormal) Range: 2.2-4.2 ALB 3.5 g/dL (Normal) Range: 3.2-5.0 T PROT 7.8 g/dL (Normal) Range: 6.4-8.2 BUN/CRE 14.3 {RATIO} (Normal) Range: 10-20 Estimated CRCL 46.71 ml/min (Normal) EST GFR - AA 73 mL/min (Normal) Comments: GFR Calc EST GFR 60 mL/min (Normal) Comments: Non- GFR Calc CREAT,SERUM 0.98 mg/dL (Normal) Range: 0.55-1.02 Comments: The validity of the calculated GFR AND GFRAA in patients over70 years has not been determined. Clinical correlation isessential. BUN 14 mg/dL (Normal) Range: 7-18 GLU 92 mg/dL (Normal) Range: 74-106 Comments: Please note revised GLUCOSE reference range kzpltsrly86/02/2018. :32 HgA1C , Office (33081) Comments: 5.7 HgA1C , Office 5.7 % (Normal) Range: 4.6 - 7.1 :32 Blood Glucose , Office (50085) Blood Glucose , Office 141 (Normal) Comments: fasting 36-Fwj-232293:04 Microscopic Examination Comments: PATIENT WAS FASTINGPERFORMED BY: Clear Standards [facility] [id number] Bacteria None seen (Normal) Mucus Threads Present (Normal) Epithelial Cells (non renal) 0-10 {/hpf} (Normal) Range: 0 - 10 RBC None seen {/hpf} (Normal) Range: 0 - 2 WBC 11-30 {/hpf} (Abnormal) Range: 0 - 5 77-Jkg-337279:04 URINALYSIS (06738) Comments: Mar or Apr 2017; PATIENT WAS FASTINGPERFORMED BY: Macrotek6370 [facility] [id number] Microscopic Examination See below: (Normal) Comments: Microscopic was indicated and was performed. Nitrite, Urine Negative (Normal) Urobilinogen,Semi-Qn 0.2 mg/dL (Normal) Range: 0.2-1.0 Bilirubin Negative (Normal) Occult Blood Trace (Abnormal) Ketones Negative (Normal) Glucose Negative (Normal) Protein Negative (Normal) WBC Esterase 2+ (Abnormal) Appearance Clear (Normal) Urine-Color Yellow (Normal) pH 7.5 (Normal) Range: 5.0-7.5 Specific Graham 1.012 (Normal) Range: 1.005-1.030 13-Llb-688774:04 MICROALBUMIN: CREATININE RATIO Comments: MarApr 2017; PATIENT WAS FASTINGPERFORMED BY: [facility] [employer] [facility] [id number] ([id number]) AND (31137) Alb/Creat Ratio 12.7 {mg/g_creat} (Normal) Range: 0.0-30.0 Albumin, Urine 6.3 ug/mL (Normal) Creatinine, Urine 49.6 mg/dL (Normal) 95-Ssh-367714:04 LIPID PANEL (74860) Comments: Fasting Mar or Apr 2017; PATIENT WAS FASTINGPERFORMED BY: TheraSim70 [facility] [id number] LDL/HDL Ratio 2.3 {ratio_units} (Normal) Range: 0.0-3.2 Comments: LDL/HDL Ratio Men Women 1/2 Avg.Risk 1.0 1.5 Av g.Risk 3.6 3.2 2X Avg.Risk 6.2 5.0 3X Avg.Risk 8.0 6.1 LDL Cholesterol Calc 91 mg/dL (Normal) Range: 0-99 VLDL Cholesterol Bella 14 mg/dL (Normal) Range: 5-40 HDL Cholesterol 39 mg/dL (Abnormal) Triglycerides 69 mg/dL (Normal) Range: 0-149 Cholesterol, Total 144 mg/dL (Normal) Range: 100-199 66-Wwl-835182:04 CALCIFEDIOL (26515) Comments: Mar or Apr 2017; PATIENT WAS FASTINGPERFORMED BY: LysandaThe Valley HospitalCiqolh1811 [facility] [id number]; OV 2/6 Vitamin D, 25-Hydroxy 48.9 ng/mL (Normal) Range: 30.0-100.0 Comments: Vitamin D deficiency has been defined by the [place] ofMedicine and an Endocrine Society practice guideline as alevel of serum 25-OH vitamin D less than 20 ng/mL (1,2).The Endocrine Society went on to further define vitamin Dinsufficiency as a level between 21 and 29 ng/mL (2).1. IOM ([place] of Medicine). 2010. Dietary reference intakes for calcium and D. [place]: The National Academies Press.2. Carlitos MF, Rene LAUREANO, Garth CARROLL, et al. Evaluation, treatment, and prevention of vitamin D deficiency: an Endocrine Society clinical practice guideline. JCEM. 2010; 96(7):1911-30. 07-Yoz-279816:04 TSH (05001) Comments: Mar or Apr 2017; PATIENT WAS FASTINGPERFORMED BY: LabContentlyThe Valley HospitalIlvkke7441 [facility] [id number] TSH 1.660 {uIU/mL} (Normal) Range: 0.450-4.500 61-Sdl-378045:04 Metabolic Panel, Comprehensive Comments: Mar or Apr 2017; PATIENT WAS FASTINGPERFORMED BY: LabCoThe Valley HospitalQtfgcj1362 [facility] [id number] (09206) ALT (SGPT) 16 [iU]/L (Normal) Range: 0-32 AST (SGOT) 17 [iU]/L (Normal) Range: 0-40 Alkaline Phosphatase, S 102 [iU]/L (Normal) Range: 39-117 Bilirubin, Total 0.3 mg/dL (Normal) Range: 0.0-1.2 A/G Ratio 1.3 (Normal) Range: 1.2-2.2 Globulin, Total 3.2 g/dL (Normal) Range: 1.5-4.5 Albumin, Serum 4.0 g/dL (Normal) Range: 3.6-4.8 Protein, Total, Serum 7.2 g/dL (Normal) Range: 6.0-8.5 Calcium, Serum 10.0 mg/dL (Normal) Range: 8.7-10.3 Carbon Dioxide, Total 27 mmol/L (Normal) Range: 18-29 Chloride, Serum 95 mmol/L (Abnormal) Range: 96-106 Potassium, Serum 4.6 mmol/L (Normal) Range: 3.5-5.2 Sodium, Serum 137 mmol/L (Normal) Range: 134-144 BUN/Creatinine Ratio 14 (Normal) Range: 12-28 eGFR If Africn Am 79 mL/min/1.73 (Normal) eGFR If NonAfricn Am 69 mL/min/1.73 (Normal) Creatinine, Serum 0.88 mg/dL (Normal) Range: 0.57-1.00 BUN 12 mg/dL (Normal) Range: 8-27 Glucose, Serum 100 mg/dL (Abnormal) Range: 65-99 89-Jkt-305007:04 CBC, Platelets & Auto Diff Comments: Mar or Apr 2017; PATIENT WAS FASTINGPERFORMED BY: [facility]6370 [facility] [id number] (12258) Immature Grans (Abs) 0.0 {x10E3/uL} (Normal) Range: 0.0-0.1 Immature Granulocytes 0 % (Normal) Baso (Absolute) 0.0 {x10E3/uL} (Normal) Range: 0.0-0.2 Eos (Absolute) 0.3 {x10E3/uL} (Normal) Range: 0.0-0.4 Monocytes(Absolute) 0.5 {x10E3/uL} (Normal) Range: 0.1-0.9 Lymphs (Absolute) 1.5 {x10E3/uL} (Normal) Range: 0.7-3.1 Neutrophils (Absolute) 3.8 {x10E3/uL} (Normal) Range: 1.4-7.0 Basos 1 % (Normal) Eos 5 % (Normal) Monocytes 9 % (Normal) Lymphs 25 % (Normal) Neutrophils 60 % (Normal) Platelets 358 {x10E3/uL} (Normal) Range: 150-379 RDW 13.0 % (Normal) Range: 12.3-15.4 MCHC 35.3 g/dL (Normal) Range: 31.5-35.7 MCH 32.5 pg (Normal) Range: 26.6-33.0 MCV 92 fL (Normal) Range: 79-97 Hematocrit 42.5 % (Normal) Range: 34.0-46.6 Hemoglobin 15.0 g/dL (Normal) Range: 11.1-15.9 RBC 4.61 {x10E6/uL} (Normal) Range: 3.77-5.28 WBC 6.2 {x10E3/uL} (Normal) Range: 3.4-10.8 :45 HgA1C , Office (53147) HgA1C , Office 5.8 % (Normal) Range: 4.6 - 7.1 :45 Blood Glucose , Office (41850) Blood Glucose , Office 110 (Normal) :33 CBC W/Diff, Auto - EPLAB Comments: Order Date: 05/10/16Order Info: [id number] - *CBC w/Diff - oncology ONLYAt [facility] Outpatient [facility] Medical Oncologypatients receive CBC w/auto Differential ONLY. Physicianwiozzie place an order fo Only r a manual differential or Pathologistreview at his discretion. [facility]. [address] [place] [address] [address] RADIO FREQUENCY ENGINEER: STEVIE COTA DO PH:[phone] Lady of [facility] [address]qta[address] [place], [place], [id number] Absolute Lymph 2.40 {X10_3/uL} (Normal) Range: 0.83-4.51 Absolute Neut 5.5 {X10_3/uL} (Normal) Range: 2.0-7.7 BASO% 0.6 % (Normal) Range: 0-1 EO% 3.5 % (Normal) Range: 0-5 MONO% 6.5 % (Normal) Range: 0-10 LY% 27.1 % (Normal) Range: 19-41 NEUT% 62.4 % (Normal) Range: 47-70 MPV 6.3 fL (Normal) Range: 6.2-12.0 PLT 353 K/mm3 (Normal) Range: 150-450 RDW 12.6 % (Normal) Range: 11.6-14.6 MCHC 36.5 g/dL (Abnormal) Range: 32-36 MCH 35.4 pg (Abnormal) Range: 27.0-32.0 MCV 96.8 fL (Normal) Range: 81-99 HCT 41.9 % (Normal) Range: 37-47 HGB 15.3 g/dL (Abnormal) Range: 12.0-15.0 RBC 4.33 {M/mm3} (Normal) Range: 4.2-5.4 WBC 8.9 K/mm3 (Normal) Range: 4.4-11.0 3-Tae-252797:33 Comprehensive Metabolic Profil Comments: Order Date: 05/10/16Order Info: [id number] - *CMP Complete Metabolic PanelWOur Lady of Mercy [facility] [address]zr[address] [place], [place], [id number] GAP 5 (Normal) Range: 5-15 CO2 33.0 mmol/L (Abnormal) Range: 21.0-32.0 CL 97 mmol/L (Abnormal) Range: 98-107 K 3.6 mmol/L (Normal) Range: 3.5-5.1 NA 135 mmol/L (Abnormal) Range: 136-145 T BILI 0.50 mg/dL (Normal) Range: 0.20-1.00 ALT 8 U/L (Abnormal) Range: 12-78 ALK P 92 U/L (Normal) Range: 45-117 AST 14 U/L (Abnormal) Range: 15-37 CA 9.8 mg/dL (Normal) Range: 8.5-10.1 A/G 0.9 {RATIO} (Normal) Range: 0.9-2.4 GLOB 4.1 g/dL (Abnormal) Range: 2.3-3.5 ALB 3.6 g/dL (Normal) Range: 3.4-5.0 T PROT 7.7 g/dL (Normal) Range: 6.4-8.2 BUN/CRE 10.5 {RATIO} (Normal) Range: 10-20 Estimated CRCL 48.19 ml/min (Normal) EST GFR - AA 75 mL/min (Normal) Comments: GFR Calc EST GFR 62 mL/min (Normal) Comments: Non- GFR Calc CREAT,SERUM 0.95 mg/dL (Normal) Range: 0.55-1.02 Comments: The validity of the calculated GFR AND GFRAA in patients over70 years has not been determined. Clinical correlation isessential. BUN 10 mg/dL (Normal) Range: 7-18 GLU 108 mg/dL (Normal) Range: 70-110 :33 Vitamin D,25 Hydroxy Comments: Order Date: 05/10/16Order Info: [id number] - *Vitamin D (Calciferol)[facility] [address] [place], [place], [id number] Vitamin D 25-OH 37.0 ng/mL (Normal) Comments: Vitamin D 25(OH) Status Range Deficiency <20 ng/mL (50nmol/L) Insuffciency 20 - 30 ng/mL (50 - 75 nmol/L) Sufficiency 30 - 100 ng/mL (75 - 250 nmol/L) Toxicity >100 ng/mL (>250 nmol/L) 11-Sep-20168:37 Metabolic Panel, Comprehensive Comments: September 11; PATIENT WAS FASTINGPERFORMED BY: LabCoThe Valley HospitalGzglpj5394 [facility] [id number] ([id number]) ALT (SGPT) 17 [iU]/L (Normal) Range: 0-32 AST (SGOT) 16 [iU]/L (Normal) Range: 0-40 Alkaline Phosphatase, S 74 [iU]/L (Normal) Range: 39-117 Bilirubin, Total 0.5 mg/dL (Normal) Range: 0.0-1.2 A/G Ratio 1.3 (Normal) Range: 1.2-2.2 Globulin, Total 2.9 g/dL (Normal) Range: 1.5-4.5 Albumin, Serum 3.9 g/dL (Normal) Range: 3.6-4.8 Protein, Total, Serum 6.8 g/dL (Normal) Range: 6.0-8.5 Calcium, Serum 9.1 mg/dL (Normal) Range: 8.7-10.3 Carbon Dioxide, Total 26 mmol/L (Normal) Range: 18-29 Chloride, Serum 93 mmol/L (Abnormal) Range: 96-106 Potassium, Serum 4.3 mmol/L (Normal) Range: 3.5-5.2 Sodium, Serum 138 mmol/L (Normal) Range: 134-144 BUN/Creatinine Ratio 15 (Normal) Range: 12-28 eGFR If Africn Am 82 mL/min/1.73 (Normal) eGFR If NonAfricn Am 71 mL/min/1.73 (Normal) Creatinine, Serum 0.86 mg/dL (Normal) Range: 0.57-1.00 BUN 13 mg/dL (Normal) Range: 8-27 Glucose, Serum 114 mg/dL (Abnormal) Range: 65-99 :57 HgA1C , Office (56177) HgA1C , Office 5.9 % (Normal) Range: 4.6 - 7.1 :57 Blood Glucose , Office (87735) Blood Glucose , Office 118 (Normal) :30 Serum Creatinine AND GFR Comments: [facility] [address] [place], [place], [address] EST GFR - AA 87 mL/min (Normal) Comments: GFR Calc EST GFR 72 mL/min (Normal) Comments: Non- GFR Calc CREAT,SERUM 0.84 mg/dL (Normal) Range: 0.55-1.02 Comments: The validity of the calculated GFR AND GFRAA in patients over70 years has not been determined. Clinical correlation isessential. :27 Culture, Blood (WB) Comments: [facility] [address] [place], [place], [address] CUB See Note (Normal) Comments: BCNo growth in 5 days. :27 Culture, Blood (WB) Comments: [facility] [address] [facility] [address] [place], [place], [address] CUB See Note (Normal) Comments: BCNo growth in 5 days. 2-Goa-541369:01 COMPLEMENT C4 (40371) Comments: PATIENT NOT FASTINGPERFORMED BY: Fanium Ojwenf3648 [facility] [id number] Complement C4, Serum 36 mg/dL (Normal) Range: 14-44 6-Hze-544180:01 COMPLEMENT C3 (68238) Comments: PATIENT NOT FASTINGPERFORMED BY: Fanium Ixafnu2036 [facility] [id number] Complement C3, Serum 185 mg/dL (Abnormal) Range: 82-167 3-Tqs-361892:01 COMPLEMENT, TOTAL (CH50) Comments: PATIENT NOT FASTINGPERFORMED BY: [facility]6370 [facility] [id number] (15543) Complement, Total (CH50) 56 U/mL (Normal) Range: 42-60 4-Owg-010626:01 Sed Rate Erythrocyte (99602) Comments: PATIENT NOT FASTINGPERFORMED BY: [facility]6370 [facility] [id number] Sedimentation Rate-Westergren 50 mm/h (Abnormal) Range: 0-40 4-Gan-767089:01 CBC, Platelets & Auto Diff Comments: PATIENT NOT FASTINGPERFORMED BY: LabCoThe Valley HospitalUlofdy2467 [facility] [id number] Information: [id number], [id number] SRC: ([id number]) Immature Grans (Abs) 0.0 {x10E3/uL} (Normal) Range: 0.0-0.1 Immature Granulocytes 0 % (Normal) Baso (Absolute) 0.0 {x10E3/uL} (Normal) Range: 0.0-0.2 Eos (Absolute) 0.1 {x10E3/uL} (Normal) Range: 0.0-0.4 Monocytes(Absolute) 1.2 {x10E3/uL} (Abnormal) Range: 0.1-0.9 Lymphs (Absolute) 1.9 {x10E3/uL} (Normal) Range: 0.7-3.1 Neutrophils (Absolute) 10.4 {x10E3/uL} (Abnormal) Range: 1.4-7.0 Basos 0 % (Normal) Eos 1 % (Normal) Monocytes 9 % (Normal) Lymphs 14 % (Normal) Neutrophils 76 % (Normal) Platelets 351 {x10E3/uL} (Normal) Range: 150-379 RDW 12.9 % (Normal) Range: 12.3-15.4 MCHC 34.1 g/dL (Normal) Range: 31.5-35.7 MCH 32.1 pg (Normal) Range: 26.6-33.0 MCV 94 fL (Normal) Range: 79-97 Hematocrit 41.4 % (Normal) Range: 34.0-46.6 Hemoglobin 14.1 g/dL (Normal) Range: 11.1-15.9 RBC 4.39 {x10E6/uL} (Normal) Range: 3.77-5.28 WBC 13.6 {x10E3/uL} (Abnormal) Range: 3.4-10.8 9-Loy-766734:49 Rapid Flu (07918 x 2) Comments: ? borderline Influenza A Ag neg a/b (Normal) : Influenza A&B Viral Culture Comments: PATIENT NOT FASTINGPERFORMED BY: Fanium TwoChop [facility] [id number] ([id number]) Viral Culture,Rapid,Influenza FLUABN (Normal) Comments: Negative:No Influenza A or B detected. :53 Urinalysis, Office (99655) UA - LEUKOCYTE ESTERASE Small (Normal) UA - NITRITE Negative (Normal) URINE UROBILINGN DC TIMED Normal mg/dL (Normal) UA - PROTEIN Negative mg/dL (Normal) UA - PH 8.0 (Normal) UA - BLOOD Non Hemolyzed Trace (Normal) UA - SPECIFIC GRAVITY 1.015 (Normal) UA - KETONES Negative mg/dL (Normal) UA - BILIRUBIN Small (Normal) UA - GLUCOSE Negative (Normal) : URINE FABIAN CULTURE-IDENTIFICATN Comments: PATIENT NOT FASTINGPERFORMED BY: Clear [employer] [facility] [id number] (70167) Antimicrobial MIHEAD (Normal) Comments: S = Susceptible; I = Intermediate; R = Resistant P = Positive; N = Negative MICS are expressed in micrograms per mL Antibiotic RSLT#1 RSLT#2 RS Susceptibility LT#3 RSLT#4Amoxicillin/Clavulanic Acid SAmpicillin RCefepime SCeftriaxone SCefuroxime SCephalothin SCiprofloxacin SErtapenem SGentamicin SImipenem SLevofloxacin SNitrofurantoin SPipera cillin STetracycline RTobramycin STrimethoprim/Sulfa R Result 1 Escherichia coli Comments: Greater than 100,000 colony forming units per mL (Abnormal) Urine Final report Culture,Comprehensive (Abnormal) :01 CULTURE, SPUTUM (09822) Comments: PATIENT NOT FASTINGPERFORMED BY: Fanium Zpqgnv4011 [facility] [id number] Result 1 HAEMIN (Abnormal) Comments: Haemophilus influenzaeModerate growthAmoxicillin- clavulanic acid, azithromycin, clarithromycin, cefaclor,cefprozil, loracarbef, cefdinir, cefixime, cefpodoxime, cefuroxime,and telithromycin are oral age nts that may be used as empiric therapyfor respiratory tract infections due to Haemophilus spp. The resultsof susceptibility tests with these antimicrobial agents are often notuseful for management of i ndividual patients. (CLSI) If susceptibilitytesting is desired please contact the laboratory within 3 days.Beta lactamase negative. Lower Respiratory Final report Culture (Abnormal) :28 Blood Glucose , Office (95257) Blood Glucose , Office 109 (Normal) :48 HgA1C , Office (80216) HgA1C , Office 6.0 % (Normal) Range: 4.6 - 7.1 :48 Blood Glucose , Office (25610) Blood Glucose , Office 152 (Normal) 18-Yld-670101:23 CBC W/Diff, Auto - EPLAB Comments: At [facility] Outpatient [facility] Medical Oncologypatients receive CBC w/auto Differential ONLY. Physicianwill place an order for a manual differential or Pathologistreview at his discretion. [facility] OUTPATIENT [facility]. [address] [place] [address] [address] RADIO FREQUENCY ENGINEER: STEVIE COTA DO PH:[phone] Health Oibgpshgya[address] [place], [place], [phone] ; another doc Absolute Lymph 2.39 {X10_3/uL} (Normal) Range: 0.83-4.51 Absolute Neut 4.4 {X10_3/uL} (Normal) Range: 2.0-7.7 BASO% 0.5 % (Normal) Range: 0-1 EO% 3.2 % (Normal) Range: 0-5 MONO% 6.8 % (Normal) Range: 0-10 LY% 31.3 % (Normal) Range: 19-41 NEUT% 58.2 % (Normal) Range: 47-70 MPV 6.0 fL (Abnormal) Range: 6.2-12.0 PLT 377 K/mm3 (Normal) Range: 150-450 RDW 11.7 % (Normal) Range: 11.6-14.6 MCHC 33.6 g/dL (Normal) Range: 32-36 MCH 32.9 pg (Abnormal) Range: 27.0-32.0 MCV 98.1 fL (Normal) Range: 81-99 HCT 44.1 % (Normal) Range: 37-47 HGB 14.8 g/dL (Normal) Range: 12.0-15.0 RBC 4.50 {M/mm3} (Normal) Range: 4.2-5.4 WBC 7.6 K/mm3 (Normal) Range: 4.4-11.0 14-Cbw-837661:23 Comprehensive Metabolic Profil Comments: Order Date: 11/03/15Interface Comments: STATOrder Date: 11/03/15WOur [facility] [address]ghqmne[address] [place], [place], [address] ; another doc GAP 8 (Normal) Range: 5-15 CO2 32.0 mmol/L (Normal) Range: 21.0-32.0 CL 92 mmol/L (Abnormal) Range: 98-107 K 4.0 mmol/L (Normal) Range: 3.5-5.1 NA 132 mmol/L (Abnormal) Range: 136-145 T BILI 0.60 mg/dL (Normal) Range: 0.20-1.00 ALT 8 U/L (Abnormal) Range: 12-78 ALK P 88 U/L (Normal) Range: 45-117 AST 12 U/L (Abnormal) Range: 15-37 CA 9.5 mg/dL (Normal) Range: 8.5-10.1 A/G 0.9 {RATIO} (Normal) Range: 0.9-2.4 GLOB 3.9 g/dL (Abnormal) Range: 2.3-3.5 ALB 3.7 g/dL (Normal) Range: 3.4-5.0 T PROT 7.6 g/dL (Normal) Range: 6.4-8.2 BUN/CRE 16.8 {RATIO} (Normal) Range: 10-20 EST GFR - AA 81 mL/min (Normal) Comments: GFR Calc EST GFR 67 mL/min (Normal) Comments: Non- GFR Calc CREAT,SERUM 0.89 mg/dL (Normal) Range: 0.55-1.02 Comments: The validity of the calculated GFR AND GFRAA in patients over70 years has not been determined. Clinical correlation isessential. BUN 15 mg/dL (Normal) Range: 7-18 GLU 101 mg/dL (Normal) Range: 70-110 [id number]-Mio-[id number]:23 Vitamin D 1,25-Dihydroxy Comments: Order Date: 11/03/15Order Date: 11/03/15Interface Comments: STATOrder Date: 11/03/15[facility] (refer to report for specific site)refer to report for address and phone number; another doc VITD [id number] 27.8 pg/mL (Normal) Range: 19.9-79.3 Comments: Performed at: [address] [id number] Director: Sascha Cedeno MD, Phone: [phone] [id number]-[id number] HgA1C , Office ([id number]) Comments: 5.8 HgA1C , Office 5.8 % (Normal) Range: 4.6 - 7.1 07-Feb-20169:43 Microscopic Examination Comments: PATIENT WAS FASTINGPERFORMED BY: [id number] [facility] [id number] Bacteria Few (Normal) Mucus Threads Present (Normal) Epithelial Cells (non renal) None seen {/hpf} (Normal) Range: 0 - 10 RBC None seen {/hpf} (Normal) Range: 0 - 2 WBC 0-5 {/hpf} (Normal) Range: 0 - 5 :43 Lipid Panel ([id number]) Comments: PATIENT WAS FASTINGPERFORMED BY: [email or web address] [facility] [id number] LDL/HDL Ratio 1.7 {ratio_units} (Normal) Range: 0.0-3.2 Comments: LDL/HDL Ratio Men Women 1/2 Avg.Risk 1.0 1.5 Av g.Risk 3.6 3.2 2X Avg.Risk 6.2 5.0 3X Avg.Risk 8.0 6.1 LDL Cholesterol Calc 63 mg/dL (Normal) Range: 0-99 VLDL Cholesterol Bella 16 mg/dL (Normal) Range: 5-40 HDL Cholesterol 37 mg/dL (Abnormal) Comments: According to ATP-III Guidelines, HDL-C >59 mg/dL is considered anegative risk factor for CHD. Triglycerides 82 mg/dL (Normal) Range: 0-149 Cholesterol, Total 116 mg/dL (Normal) Range: 100-199 :43 CALCIFEDIOL (66055) Comments: PATIENT WAS FASTINGPERFORMED BY: TheraSim70 [facility] [id number] Vitamin D, 25-Hydroxy 62.9 ng/mL (Normal) Range: 30.0-100.0 Comments: Vitamin D deficiency has been defined by the [place] ofMedicine and an Endocrine Society practice guideline as alevel of serum 25-OH vitamin D less than 20 ng/mL (1,2).The Endocrine Society went on to further define vitamin Dinsufficiency as a level between 21 and 29 ng/mL (2).1. IOM ([place] of Medicine). 2010. Dietary reference intakes for calcium and D. [place]: The National Academies Press.2. Carlitos MF, Rene LAUREANO, Garth CARROLL, et al. Evaluation, treatment, and prevention of vitamin D deficiency: an Endocrine Society clinical practice guideline. JCEM. 2010; 96(7):1911-30. :43 URINALYSIS, W/ MICRO (31024) Comments: PATIENT WAS FASTINGPERFORMED BY: Macrotek6370 [facility] [id number] Microscopic Examination See below: (Normal) Comments: Microscopic was indicated and was performed. Microscopic Examination MICRON (Normal) Comments: Microscopic follows if indicated. Nitrite, Urine Negative (Normal) Urobilinogen,Semi-Qn 1.0 mg/dL (Normal) Range: 0.2-1.0 Bilirubin Negative (Normal) Occult Blood Negative (Normal) Ketones Negative (Normal) Glucose Negative (Normal) Protein Negative (Normal) WBC Esterase Negative (Normal) Appearance Clear (Normal) Urine-Color Yellow (Normal) pH 6.5 (Normal) Range: 5.0-7.5 Specific Graham 1.007 (Normal) Range: 1.005-1.030 :43 MICROALBUMIN: CREATININE RATIO Comments: PATIENT WAS FASTINGPERFORMED BY: TheraSim70 [facility] [id number] (13026) AND (48041) Microalb/Creat Ratio <11.2 {mg/g_creat} (Normal) Range: 0.0-30.0 Microalbumin, Urine <3.0 ug/mL (Normal) Creatinine, Urine 26.8 mg/dL (Normal) :43 TSH (THYROID STIMULATING Comments: PATIENT WAS FASTINGPERFORMED BY: [facility]6370 [facility] [id number] HORMONE) (71003) TSH 0.992 {uIU/mL} (Normal) Range: 0.450-4.500 :43 Metabolic Panel, Comments: PATIENT WAS FASTINGPERFORMED BY: FaniumThe Valley HospitalPdvzyf5627 [facility] [id number] Information: HARD DRAW Comprehensive (07206) ALT (SGPT) 21 [iU]/L (Normal) Range: 0-32 AST (SGOT) 13 [iU]/L (Normal) Range: 0-40 Alkaline Phosphatase, S 79 [iU]/L (Normal) Range: 39-117 Bilirubin, Total 0.4 mg/dL (Normal) Range: 0.0-1.2 A/G Ratio 1.3 (Normal) Range: 1.1-2.5 Globulin, Total 2.9 g/dL (Normal) Range: 1.5-4.5 Albumin, Serum 3.9 g/dL (Normal) Range: 3.6-4.8 Protein, Total, Serum 6.8 g/dL (Normal) Range: 6.0-8.5 Calcium, Serum 9.1 mg/dL (Normal) Range: 8.7-10.3 Carbon Dioxide, Total 26 mmol/L (Normal) Range: 18-29 Chloride, Serum 91 mmol/L (Abnormal) Range: 97-106 Potassium, Serum 4.5 mmol/L (Normal) Range: 3.5-5.2 Sodium, Serum 136 mmol/L (Normal) Range: 136-144 BUN/Creatinine Ratio 11 (Normal) Range: 11-26 eGFR If Africn Am 102 mL/min/1.73 (Normal) eGFR If NonAfricn Am 88 mL/min/1.73 (Normal) Creatinine, Serum 0.72 mg/dL (Normal) Range: 0.57-1.00 BUN 8 mg/dL (Normal) Range: 8-27 Glucose, Serum 89 mg/dL (Normal) Range: 65-99 :09 HgA1C , Office (64714) Comments: 6.2 HgA1C , Office 6.2 % (Normal) Range: 4.6 - 7.1 :09 Blood Glucose , Office (54067) Blood Glucose , Office 123 (Normal) :36 CBC W/Diff, Auto - EPLAB Comments: At [facility] Outpatient [facility] Medical Oncologypatients receive CBC w/auto Differential ONLY. Physicianwill place an order for a manual differential or Pathologistreview at his discretion. [facility] OUTPATIENT [facility]. [address] [address] [address] RADIO FREQUENCY ENGINEER: STEVIE COTA DO PH:[phone] Health [address]urawrus[address] [place], [place], [id number] Absolute Lymph 2.15 {X10_3/uL} (Normal) Range: 0.83-4.51 Absolute Neut 5.0 {X10_3/uL} (Normal) Range: 2.0-7.7 BASO% 0.9 % (Normal) Range: 0-1 EO% 3.0 % (Normal) Range: 0-5 MONO% 6.4 % (Normal) Range: 0-10 LY% 27.1 % (Normal) Range: 19-41 NEUT% 62.5 % (Normal) Range: 47-70 MPV 5.7 fL (Abnormal) Range: 6.2-12.0 PLT 380 K/mm3 (Normal) Range: 150-450 RDW 11.9 % (Normal) Range: 11.6-14.6 MCHC 35.5 g/dL (Normal) Range: 32-36 MCH 34.1 pg (Abnormal) Range: 27.0-32.0 MCV 96.2 fL (Normal) Range: 81-99 HCT 39.2 % (Normal) Range: 37-47 HGB 13.9 g/dL (Normal) Range: 12.0-15.0 RBC 4.07 {M/mm3} (Abnormal) Range: 4.2-5.4 WBC 7.9 K/mm3 (Normal) Range: 4.4-11.0 :32 Comprehensive Metabolic Profil Comments: Order Date: 11/03/15OV Order #: [id number] Specimen #1, #2 or #3? 1 [id number] Lady of Mer[facility] [address]jum[address] [place], [place], [address] GAP 6 (Normal) Range: 5-15 CO2 31.0 mmol/L (Normal) Range: 21.0-32.0 CL 92 mmol/L (Abnormal) Range: 98-107 K 4.3 mmol/L (Normal) Range: 3.5-5.1 NA 129 mmol/L (Abnormal) Range: 136-145 T BILI 0.40 mg/dL (Normal) Range: 0.20-1.00 ALT 26 U/L (Normal) Range: 12-78 ALK P 75 U/L (Normal) Range: 50-136 AST 14 U/L (Abnormal) Range: 15-37 CA 9.1 mg/dL (Normal) Range: 8.5-10.1 A/G 1.0 {RATIO} (Normal) Range: 0.9-2.4 GLOB 3.7 g/dL (Abnormal) Range: 2.3-3.5 ALB 3.6 g/dL (Normal) Range: 3.4-5.0 T PROT 7.3 g/dL (Normal) Range: 6.4-8.2 BUN/CRE 10.5 {RATIO} (Normal) Range: 10-20 EST GFR - AA 76 mL/min (Normal) Comments: GFR Calc EST GFR 63 mL/min (Normal) Comments: Non- GFR Calc CREAT,SERUM 0.95 mg/dL (Normal) Range: 0.55-1.20 Comments: The validity of the calculated GFR AND GFRAA in patients over70 years has not been determined. Clinical correlation isessential. BUN 10 mg/dL (Normal) Range: 7-18 GLU 103 mg/dL (Normal) Range: 70-110 :32 LDH 164 U/L (Normal) Comments: Order Date: 11/03/15OV Order #: [id number] Specimen #1, #2 or #3? 1 [id number] Health [address] [place], [address] Range: 84-246 7-Jbe-403936:32 Uric Acid Comments: Order Date: 11/03/15OV Order #: [id number] Specimen #1, #2 or #3? 1 [id number] Health [address] [place], [address] URIC 5.4 mg/dL (Normal) Range: 2.6-6.0 Comments: The drugs N-Acetylcysteine and Metamizole may falsely deressthis assay. 8-Jqh-814731:00 Vancomycin, Trough Level Comments: Comments: FAX REPORT TO SANDRA PENDLETONJamaal BECK [phone] AND [facility] [address] [place], [address] VANCO, TROUGH 14.7 ug/mL (Normal) Range: 5.0-15.0 Comments: VANCOMYCIN STANDARED DRUG THERAPY TROUGH LEVEL: 5.0 - 15.0 mg/LVANCOMYCIN HIGH INTENSITY THERAPY TROUGH LEVEL: 15.0 - 20 .0 mg/LHigh Intensity therapy recommended for serious lifethreatening infections include:- Feicwtdenh-Nkxtbfexbeas-Iiwunkemj (Ventilator/Healtcare Associated)- SepsisPLEASE CONTACT PHARMACY SERVICES (#1244) FOR INTERPRETATIONOF RESULTS. 86-Rns-113473:21 M R Staph Aureus DNA by PCR Comments: Source: NASAL SWABParkview Health [address]qtjmh[address] [place], [place], [address] MRSA RESULT POSITIVE (Abnormal) 41-Dtc-738100:22 Aerobic Bacterial Culture Comments: send for MRSA left flank; PATIENT NOT FASTINGPERFORMED BY: [facility] Vkwekf36[address] [place] [id number] Information: SRC:MADDIE [id number] (37741) Result 1 MRSA (Abnormal) Comments: Methicillin - resistant Staphylococcus aureusHeavy growthBased on resistance to oxacillin this isolate would be resistant toall currently available beta-lactam antimicrobial agents, with theexception of the newer cephalosporins with anti-MRSA activity, such asCeftaroline S = Susceptible; I = Intermediate; R = Resistant P = Positive; N = Negative MICS are express ed in micrograms per mL Antibiotic RSLT#1 RSLT#2 RSLT#3 RSLT#4Ciprofloxacin SClindamycin SErythromycin RGentamicin SLevofloxacin SLinezolid SOxacillin RPenicillin RRifampin STetracycline STrimethoprim/Sulfa SVancomycin S Aerobic Bacterial Final report (Abnormal) Culture :03 HgA1C , Office (98964) Comments: 6.0 HgA1C , Office 6.0 % (Normal) Range: 4.6 - 7.1 :03 Blood Glucose , Office (26688) Blood Glucose , Office 120 (Normal) :01 POTASSIUM SERUM (47576) Comments: STAT; [facility] [address]drvqp3651 [place], [place], [address] K 4.8 mmol/L (Normal) Range: 3.5-5.1 :40 Metabolic Panel, Comments: PATIENT WAS FASTINGPERFORMED BY: LabCoThe Valley HospitalBehjco4278 [facility] [id number] Information: [id number] Comprehensive (22914) ALT (SGPT) 21 [iU]/L (Normal) Range: 0-32 AST (SGOT) 12 [iU]/L (Normal) Range: 0-40 Alkaline Phosphatase, S 83 [iU]/L (Normal) Range: 39-117 Bilirubin, Total 0.4 mg/dL (Normal) Range: 0.0-1.2 A/G Ratio 1.5 (Normal) Range: 1.1-2.5 Globulin, Total 2.9 g/dL (Normal) Range: 1.5-4.5 Albumin, Serum 4.3 g/dL (Normal) Range: 3.6-4.8 Protein, Total, Serum 7.2 g/dL (Normal) Range: 6.0-8.5 Calcium, Serum 10.0 mg/dL (Normal) Range: 8.7-10.3 Carbon Dioxide, Total 26 mmol/L (Normal) Range: 18-29 Chloride, Serum 93 mmol/L (Abnormal) Range: 97-108 Potassium, Serum 5.4 mmol/L (Abnormal) Range: 3.5-5.2 Sodium, Serum 140 mmol/L (Normal) Range: 134-144 BUN/Creatinine Ratio 13 (Normal) Range: 11-26 eGFR If Africn Am 63 mL/min/1.73 (Normal) eGFR If NonAfricn Am 55 mL/min/1.73 (Abnormal) Creatinine, Serum 1.07 mg/dL (Abnormal) Range: 0.57-1.00 BUN 14 mg/dL (Normal) Range: 8-27 Glucose, Serum 111 mg/dL (Abnormal) Range: 65-99 :40 HEPATIC FUNCTION PANEL (45173) Comments: PATIENT WAS FASTINGPERFORMED BY: TheraSim70 [facility] [id number] Bilirubin, Direct 0.17 mg/dL (Normal) Range: 0.00-0.40 :40 Lipid Panel (78565) Comments: PATIENT WAS FASTINGPERFORMED BY: Macrotek6370 [facility] [id number] LDL/HDL Ratio 1.6 {ratio_units} (Normal) Range: 0.0-3.2 Comments: LDL/HDL Ratio Men Women 1/2 Avg.Risk 1.0 1.5 Av g.Risk 3.6 3.2 2X Avg.Risk 6.2 5.0 3X Avg.Risk 8.0 6.1 LDL Cholesterol Calc 68 mg/dL (Normal) Range: 0-99 VLDL Cholesterol Bella 18 mg/dL (Normal) Range: 5-40 HDL Cholesterol 42 mg/dL (Normal) Comments: According to ATP-III Guidelines, HDL-C >59 mg/dL is considered anegative risk factor for CHD. Triglycerides 92 mg/dL (Normal) Range: 0-149 Cholesterol, Total 128 mg/dL (Normal) Range: 100-199 2-Avb-101775:36 TSH (83023) Comments: PATIENT WAS FASTINGPERFORMED BY: Lysanda Hsqniu4795 [facility] [id number] TSH 1.320 {uIU/mL} (Normal) Range: 0.450-4.500 5-Mvv-481591:36 MICROALBUMIN: CREATININE RATIO Comments: PATIENT WAS FASTINGPERFORMED BY: [employer] [facility] [id number] (45403) AND (92719) Microalb/Creat Ratio <4.6 {mg/g_creat} (Normal) Range: 0.0-30.0 Microalbumin, Urine <3.0 ug/mL (Normal) Range: 0.0-17.0 Creatinine, Urine 64.9 mg/dL (Normal) Range: 15.0-278.0 :36 LIPID PANEL (71248) Comments: PATIENT WAS FASTINGPERFORMED BY: [employer] [facility] [id number] Information: [id number] LDL/HDL Ratio 2.9 {ratio_units} (Normal) Range: 0.0-3.2 Comments: LDL/HDL Ratio Men Women 1/2 Avg.Risk 1.0 1.5 Av g.Risk 3.6 3.2 2X Avg.Risk 6.2 5.0 3X Avg.Risk 8.0 6.1 LDL Cholesterol Calc 130 mg/dL (Abnormal) Range: 0-99 VLDL Cholesterol Bella 25 mg/dL (Normal) Range: 5-40 HDL Cholesterol 45 mg/dL (Normal) Comments: According to ATP-III Guidelines, HDL-C >59 mg/dL is considered anegative risk factor for CHD. Triglycerides 123 mg/dL (Normal) Range: 0-149 Cholesterol, Total 200 mg/dL (Abnormal) Range: 100-199 :36 CALCIFEDIOL (10103) Comments: PATIENT WAS FASTINGPERFORMED BY: Fanium Xjcxtw0674 [facility] [id number] Vitamin D, 25-Hydroxy 35.2 ng/mL (Normal) Range: 30.0-100.0 Comments: Vitamin D deficiency has been defined by the [place] ofMedicine and an Endocrine Society practice guideline as alevel of serum 25-OH vitamin D less than 20 ng/mL (1,2).The Endocrine Society went on to further define vitamin Dinsufficiency as a level between 21 and 29 ng/mL (2).1. IOM ([place] of Medicine). 2010. Dietary reference intakes for calcium and D. [place]: The National Academies Press.2. Carlitos MF, Rene LAUREANO, Garth CARROLL, et al. Evaluation, treatment, and prevention of vitamin D deficiency: an Endocrine Society clinical practice guideline. JCEM. 2010; 96(7):1911-30. 17-Lyy-720371:16 CBC W/Diff, Auto - EPLAB Comments: At [facility] Outpatient [facility] Medical Oncologypatients receive CBC w/auto Differential ONLY. Physicianwill place an order for a manual differential or Pathologistreview at his discretion. [facility]. [address] [place] [address] [address] RADIO FREQUENCY ENGINEER: STEVIE COTA DO PH:[phone] Health [address]grzpmhqyi[address] [place], [place], [address] Absolute Lymph 2.05 {X10_3/uL} (Normal) Range: 0.83-4.51 Absolute Neut 3.8 {X10_3/uL} (Normal) Range: 2.0-7.7 BASO% 0.8 % (Normal) Range: 0-1 EO% 2.4 % (Normal) Range: 0-5 MONO% 4.5 % (Normal) Range: 0-10 LY% 32.3 % (Normal) Range: 19-41 NEUT% 60.0 % (Normal) Range: 47-70 MPV 5.7 fL (Abnormal) Range: 6.2-12.0 PLT 344 K/mm3 (Normal) Range: 150-450 RDW 11.4 % (Abnormal) Range: 11.6-14.6 MCHC 35.0 g/dL (Normal) Range: 32-36 MCH 31.1 pg (Normal) Range: 27.0-32.0 MCV 89.0 fL (Normal) Range: 81-99 HCT 41.0 % (Normal) Range: 37-47 HGB 14.3 g/dL (Normal) Range: 12.0-15.0 RBC 4.61 {M/mm3} (Normal) Range: 4.2-5.4 WBC 6.4 K/mm3 (Normal) Range: 4.4-11.0 16-Gdh-512652:14 Comprehensive Metabolic Profil Comments: Serial Specimen #1, #2 or #3? [address] [place] [address] [address] [place], [place], [address] GAP 8 (Normal) Range: 5-15 CO2 30.0 mmol/L (Normal) Range: 21.0-32.0 CL 100 mmol/L (Normal) Range: 98-107 K 4.7 mmol/L (Normal) Range: 3.5-5.1 NA 138 mmol/L (Normal) Range: 136-145 T BILI 0.40 mg/dL (Normal) Range: 0.20-1.00 ALT 37 U/L (Normal) Range: 12-78 ALK P 104 U/L (Normal) Range: 50-136 AST 18 U/L (Normal) Range: 15-37 CA 9.4 mg/dL (Normal) Range: 8.5-10.1 A/G 1.0 {RATIO} (Normal) Range: 0.9-2.4 GLOB 3.8 g/dL (Abnormal) Range: 2.3-3.5 ALB 3.8 g/dL (Normal) Range: 3.4-5.0 T PROT 7.6 g/dL (Normal) Range: 6.4-8.2 BUN/CRE 13.2 {RATIO} (Normal) Range: 10-20 EST GFR - AA 73 mL/min (Normal) Comments: GFR Calc EST GFR 60 mL/min (Normal) Comments: Non- GFR Calc CREAT,SERUM 0.99 mg/dL (Normal) Range: 0.55-1.20 Comments: The validity of the calculated GFR AND GFRAA in patients over70 years has not been determined. Clinical correlation isessential. BUN 13 mg/dL (Normal) Range: 7-18 GLU 94 mg/dL (Normal) Range: 70-110 28-Fyq-486549:14 LDH 176 U/L (Normal) Comments: Serial Specimen #1, #2 or #3? [address] [place] [address] [address]trzt[address] [place], [place], [address] Range: 84-246 91-Rgy-098683:14 Uric Acid Comments: Serial Specimen #1, #2 or #3? 1[facility] [address]qecv[address] [place], [address] URIC 6.1 mg/dL (Abnormal) Range: 2.6-6.0 78-Irq-467907:14 Vitamin D 1,25-Dihydroxy Comments: [facility] (refer to report for specific site)refer to report for address and phone number; ordered by another doctor VITD 1,25 10771 69.0 pg/mL (Normal) Range: 19.9-79.3 Comments: Performed at: [facility] Lab[address] [id number] Director: Sascha Cedeno MD, Phone: [phone] 52-Xoy-515323:20 HgA1C , Office (79513) HgA1C , Office 6.1 % (Normal) Range: 4.6 - 7.1 03-Mbj-996773:20 Blood Glucose , Office (92162) Blood Glucose , Office 89 (Normal) 36-Bfp-796498:53 CALCIFEDIOL (20072) Comments: PATIENT WAS FASTINGPERFORMED BY: Fanium Lgssuu6050 [facility] [id number] Vitamin D, 25-Hydroxy 23.0 ng/mL (Abnormal) Range: 30.0-100.0 Comments: Vitamin D deficiency has been defined by the [place] ofMedicine and an Endocrine Society practice guideline as alevel of serum 25-OH vitamin D less than 20 ng/mL (1,2).The Endocrine Society went on to further define vitamin Dinsufficiency as a level between 21 and 29 ng/mL (2).1. IOM ([place] of Medicine). 2010. Dietary reference intakes for calcium and D. [place]: The National Academies Press.2. Carlitos MF, Rene NC, Garth CARROLL, et al. Evaluation, treatment, and prevention of vitamin D deficiency: an Endocrine Society clinical practice guideline. JCEM. 2010; 96(7):1911-30. :53 Lipid Panel (64737) Comments: PATIENT WAS FASTINGPERFORMED BY: [facility] Ggcqnx4519 [facility] [id number] Information: [id number] LDL/HDL Ratio 2.8 {ratio_units} Range: 0.0-3.2 (Normal) Comments: LDL/HDL Ratio Men Women 1/2 Avg.Risk 1.0 1.5 Av g.Risk 3.6 3.2 2X Avg.Risk 6.2 5.0 3X Avg.Risk 8.0 6.1 LDL Cholesterol Calc 121 mg/dL (Abnormal) Range: 0-99 VLDL Cholesterol Bella 16 mg/dL (Normal) Range: 5-40 HDL Cholesterol 43 mg/dL (Normal) Comments: According to ATP-III Guidelines, HDL-C >59 mg/dL is considered anegative risk factor for CHD. Triglycerides 80 mg/dL (Normal) Range: 0-149 Cholesterol, Total 180 mg/dL (Normal) Range: 100-199 BREAST BIOPSY (CHOOSE See Note (Normal) Comments: Test performed at:[facility] [address] [place] [address] :00 SITE) Comments: Patient: TISH MALAVE : 1950 (64/F) Acct Num: [id number] Phys: Scot REAGAN,Deandra Unit Num: [id number] Loc: [facility] Specimen: [id number] Received: 10/12/14 1126 Spec Type: BREAST BX TISSUES TISSUES: COMMENT Please see previous specimen ([id number]) left breast tissue, stereotactic core biopsy with diagnosis of ductal carcinoma in situ. GROSS DESCRIPTION Received is one container labeled with the patient name and designated left breast. The specimen consists of multiple elongated fragments of martinez-yellow fibroadipose tissue measuring in aggregate 2.5 x 0.5 x 0.1 cm. The specimen is totally submitted in one cassette. / MARISSA:laura 10/12/14 TC:3 CPT: 59168 HEADER OPERATION: U/S guided left breast biopsy PRE-OP DIAGNOSIS: Abnormal left breast U/S lesion TISSUE SUBMITTED: Left breast tissue MICROSCOPIC DIAGNOSIS Left breast tissue, ultrasound-guided core biopsy: Fragments of fibroadipose and fibroconnective tissue with chronic inflam mation, calcifications and foreign body giant cell reaction. Negative for atypia or malignancy in the submitted specimen. Breast tissue is not identified in the submitted specimen. SJ:rox 10/13/14 Signed Shayan Ching 10/13/14 <signature on file> 8-Wys-858225:16 Comprehensive Metabolic Profil Comments: Serial Specimen #1, #2 or #3? 1Test performed at:[facility] [address]yazddkxz3440 [facility] [address] GAP 6 (Normal) Range: 5-15 CO2 28.0 mmol/L (Normal) Range: 21.0-32.0 CL 103 mmol/L (Normal) Range: 98-107 K 4.5 mmol/L (Normal) Range: 3.5-5.1 NA 137 mmol/L (Normal) Range: 136-145 T BILI 0.40 mg/dL (Normal) Range: 0.20-1.00 ALT 50 U/L (Normal) Range: 12-78 ALK P 125 U/L (Normal) Range: 50-136 AST 30 U/L (Normal) Range: 15-37 CA 9.4 mg/dL (Normal) Range: 8.5-10.1 A/G 0.9 {RATIO} (Normal) Range: 0.9-2.4 GLOB 3.8 g/dL (Normal) Range: 2.7-4.2 ALB 3.6 g/dL (Normal) Range: 3.4-5.0 T PROT 7.4 g/dL (Normal) Range: 6.4-8.2 BUN/CRE 12.0 {RATIO} (Normal) Range: 10-20 EST GFR - AA 73 mL/min (Normal) EST GFR 60 mL/min (Normal) CREAT,SERUM 1.0 mg/dL (Normal) Range: 0.6-1.0 BUN 12 mg/dL (Normal) Range: 7-18 GLU 97 mg/dL (Normal) Range: 70-110 5-Qga-748933:16 LDH 189 U/L (Normal) Comments: Serial Specimen #1, #2 or #3? 1Test performed at:[facility] [address]vhw[address] [facility] [address] Range: 87-241 7-Lyg-104451:16 Uric Acid Comments: Serial Specimen #1, #2 or #3? 1Test performed at:[facility] [address] [place] [address] URIC 5.5 mg/dL (Normal) Range: 2.6-6.0 0-Jyq-712267:05 CBC W/Diff, Auto - EPLAB Only Comments: At [facility] Outpatient [facility] Medical Oncologypatients receive CBC w/auto Differential ONLY. Physicianwill place an order for a manual differential or Pathologistreview at his discretion. [facility] OUTPATIENT [facility]. [address] [place] [address] [address] RADIO FREQUENCY ENGINEER: STEVIE COTA DO PH:[phone] performed at:[facility] Laborato [address] [place], [place] [id number] Absolute Neut 2.7 {X10_3/uL} (Normal) Range: 2.0-7.7 BASO% 1.2 % (Abnormal) Range: 0-1 EO% 3.6 % (Normal) Range: 0-5 MONO% 8.5 % (Normal) Range: 0-10 LY% 30.8 % (Normal) Range: 19-41 NEUT% 55.8 % (Normal) Range: 47-70 MPV 5.4 fL (Abnormal) Range: 6.2-12.0 PLT 332 K/mm3 (Normal) Range: 150-450 RDW 11.0 % (Abnormal) Range: 11.6-14.6 MCHC 34.8 g/dL (Normal) Range: 32-36 MCH 31.7 pg (Normal) Range: 27.0-32.0 MCV 91.0 fL (Normal) Range: 81-99 HCT 37.9 % (Normal) Range: 37-47 HGB 13.2 g/dL (Normal) Range: 12.0-15.0 RBC 4.17 {M/mm3} (Abnormal) Range: 4.2-5.4 WBC 4.8 K/mm3 (Normal) Range: 4.4-11.0 :00 Culture, Wound Comments: Test performed at:[facility] [address] [place] [address] CUW See Note (Normal) Comments: Comments: RIGHT THIGH, CELLILITISGram StainGram Stain No White Blood Cells 1+ Gram positive cocci Wound CultureORGANISM 1: Meth. resistant Staph. aureusAmount Growth 2+ Meth. resista nt Staph. aureus: REACTION Benzylpenicillin NF >=0.5 R Cefoxitin *NF + Clindamycin $$ <=0.25 S Inducable Clindamycin Resistan - Erythromycin $ >=8 R Gentamicin $ <=0.5 S Levofloxacin $ 0.25 S Linezolid $$$$ 1 S Oxacillin NF >=4 R Tigecycline $$$$ <=0.12 S Rifampin $$ <=0.5 S Tetracycline NF <=1 S Trimethoprim/Sulfametho $ <=10 S Vancomycin $ 1 S(NF) in dicates non-formulary drug at [facility]. Approval by Infectious Disease Specialist required before non-formulary drugs may be ordered and/or dispensed. * CLSI guidelines does not recommend testing of cephalosporins. This interpretation is deduced from Beta-lactam/penicillin results. 38-Swp-984208:16 Anaerobic & Aerobic Comments: R leg; PATIENT NOT FASTINGPERFORMED BY: [facility]Sur[facility]6370 [facility] [id number] Information: SRC:WND [id number] RIGHT LEG Culture (24941) Result 1 MRSA (Abnormal) Comments: Methicillin - resistant Staphylococcus aureusModerate growthBased on resistance to oxacillin this isolate would be resistant toall currently available beta-lactam antimicrobial agents, with theexception of the newer cephalosporins with anti-MRSA activity, such asCeftaroline S = Susceptible; I = Intermediate; R = Resistant P = Positive; N = Negative MICS are e xpressed in micrograms per mL Antibiotic RSLT#1 RSLT#2 RSLT#3 RSLT#4Ciprofloxacin SClindamycin SErythromycin RGentamicin SLevofloxacin SLinezolid SOxacillin RPenicillin RRifampin STetracycline STrimethoprim/Sulfa SVancomycin S Aerobic Culture Final report (Abnormal) Result 1 NANG72 (Normal) Comments: No anaerobic growth in 72 hours. Anaerobic Culture Final report (Normal) K 4.5 mmol/L (Normal) Range: 3.5-5.1 :12 :13 CALCIFEDIOL (22428) Comments: PATIENT NOT FASTINGPERFORMED BY: LabCoThe [facility] [id number] [facility] [id number] Information: [id number] Vitamin D, 25-Hydroxy 23.8 ng/mL (Abnormal) Range: 30.0-100.0 Comments: Vitamin D deficiency has been defined by the [place] [employer] and an Endocrine Society practice guideline as alevel of serum 25-OH vitamin D less than 20 ng/mL (1,2).The Endocrine Society went on to further define vitamin Dinsufficiency as a level between 21 and 29 ng/mL (2).1. IOM ([place] [employer]). 2010. Dietary reference intakes for calcium and D. [place]: The National Academies Press.2. Carlitos MF, Rene NC, Garth CARROLL, et al. Evaluation, treatment, and prevention of vitamin D deficiency: an Endocrine Society clinical practice guideline. JCEM. 2010; 96(7):1911-30. [id number] CBC, Platelets & Auto Comments: pls send copy to Dr epperson; Test(s) Potassium, Serum called to Dr Felix on 12/21/2013 at 23:26 ESTPATIENT NOT FASTINGPERFORMED BY: [facility]CoThe [facility] [id number] [facility] [id number] Information: [id number] Diff (29613) Immature Grans (Abs) 0.0 {x10E3/uL} (Normal) Range: 0.0-0.1 Immature Granulocytes 0 % (Normal) Baso (Absolute) 0.0 {x10E3/uL} (Normal) Range: 0.0-0.2 Eos (Absolute) 0.2 {x10E3/uL} (Normal) Range: 0.0-0.4 Monocytes(Absolute) 0.6 {x10E3/uL} (Normal) Range: 0.1-0.9 Lymphs (Absolute) 1.6 {x10E3/uL} (Normal) Range: 0.7-3.1 Neutrophils (Absolute) 2.8 {x10E3/uL} (Normal) Range: 1.4-7.0 Basos 1 % (Normal) Eos 3 % (Normal) Monocytes 12 % (Normal) Lymphs 30 % (Normal) Neutrophils 54 % (Normal) Platelets 291 {x10E3/uL} (Normal) Range: 150-379 RDW 13.6 % (Normal) Range: 12.3-15.4 MCHC 34.0 g/dL (Normal) Range: 31.5-35.7 MCH 32.6 pg (Normal) Range: 26.6-33.0 MCV 96 fL (Normal) Range: 79-97 Hematocrit 40.0 % (Normal) Range: 34.0-46.6 Hemoglobin 13.6 g/dL (Normal) Range: 11.1-15.9 RBC 4.17 {x10E6/uL} (Normal) Range: 3.77-5.28 WBC 5.2 {x10E3/uL} (Normal) Range: 3.4-10.8 59-Rzm-846938:04 Metabolic Panel, Comprehensive Comments: pls send copy to dr epperson; Test(s) Potassium, Serum called to Dr Felix on 12/21/2013 at 23:26 ESTPATIENT NOT FASTINGPERFORMED BY: LabCoThe Valley HospitalDrjgev3774 [facility] [id number] ([id number]) ALT (SGPT) 15 [iU]/L (Normal) Range: 0-32 AST (SGOT) 16 [iU]/L (Normal) Range: 0-40 Alkaline Phosphatase, S 103 [iU]/L (Normal) Range: 39-117 Bilirubin, Total 0.2 mg/dL (Normal) Range: 0.0-1.2 A/G Ratio 1.7 (Normal) Range: 1.1-2.5 Globulin, Total 2.6 g/dL (Normal) Range: 1.5-4.5 Albumin, Serum 4.4 g/dL (Normal) Range: 3.6-4.8 Protein, Total, Serum 7.0 g/dL (Normal) Range: 6.0-8.5 Calcium, Serum 9.7 mg/dL (Normal) Range: 8.6-10.2 Carbon Dioxide, Total 25 mmol/L (Normal) Range: 18-29 Chloride, Serum 100 mmol/L (Normal) Range: 97-108 Potassium, Serum 5.7 mmol/L (Abnormal) Range: 3.5-5.2 Comments: Client Requested Flag Sodium, Serum 141 mmol/L (Normal) Range: 134-144 BUN/Creatinine Ratio 15 (Normal) Range: 11-26 eGFR If Africn Am 81 mL/min/1.73 (Normal) eGFR If NonAfricn Am 70 mL/min/1.73 (Normal) Creatinine, Serum 0.88 mg/dL (Normal) Range: 0.57-1.00 BUN 13 mg/dL (Normal) Range: 8-27 Glucose, Serum 79 mg/dL (Normal) Range: 65-99 79-Zso-497242:04 HEPATIC FUNCTION PANEL Comments: pls send copy to Dr Epperson; Test(s) Potassium, Serum called to Dr Felix on 12/21/2013 at 23:26 ESTPATIENT NOT FASTINGPERFORMED BY: LabCoThe [facility] HospitalUolqcu3919 [facility] [id number] ([id number]) Bilirubin, Direct 0.09 mg/dL (Normal) Range: 0.00-0.40 08-Pah-66275:55 CMP Comments: Serial Specimen #1, #2 or #3? 1 GAP 3 (Abnormal) Range: 5-15 CO2 30.0 mmol/L (Normal) Range: 21.0-32.0 CL 103 mmol/L (Normal) Range: 98-107 K 4.4 mmol/L (Normal) Range: 3.5-5.1 NA 136 mmol/L (Normal) Range: 136-145 BIT 0.40 mg/dL (Normal) Range: 0.00-1.00 ALT 39 U/L (Normal) Range: 12-78 ALK 110 U/L (Normal) Range: 45-117 AST 20 U/L (Normal) Range: 15-37 CA 9.9 mg/dL (Normal) Range: 8.5-10.1 AG 1.2 {RATIO} (Normal) Range: 0.9-2.4 GLOB 3.3 g/dL (Normal) Range: 2.7-4.2 ALB 3.9 g/dL (Normal) Range: 3.4-5.0 BC 12.5 {RATIO} (Normal) Range: 10-20 TPROT 7.2 g/dL (Normal) Range: 6.4-8.2 GFRAA 93 mL/min (Normal) GFR 77 mL/min (Normal) CREAT 0.8 mg/dL (Normal) Range: 0.6-1.0 BUN 10 mg/dL (Normal) Range: 7-18 GLU 94 mg/dL (Normal) Range: 70-110 :55 ECBCD Comments: At [facility] Outpatient [facility], Dr Lang patients receiveCBC w/auto Differential ONLY. He will place an order for amanual differential or Pathologist review at his discretion.[facility].[address] [place], [place] [address]MFM DIRECTOR: STEVIE COTA DO PH:[phone] ANC 5.3 {X10_3/uL} (Normal) Range: 2.0-7.7 B% 0.8 % (Normal) Range: 0-1 E% 2.1 % (Normal) Range: 0-5 M% 4.0 % (Normal) Range: 0-10 L% 23.7 % (Normal) Range: 19-41 MPV 5.2 fL (Abnormal) Range: 6.2-12.0 N% 69.5 % (Normal) Range: 47-70 PLT 271 K/mm3 (Normal) Range: 150-450 RDW 11.7 % (Normal) Range: 11.6-14.6 MCH 33.2 pg (Abnormal) Range: 27.0-32.0 MCHC 34.4 g/dL (Normal) Range: 32-36 MCV 96.7 fL (Normal) Range: 81-99 HCT 41.5 % (Normal) Range: 37-47 HGB 14.3 g/dL (Normal) Range: 12.0-15.0 RBC 4.29 {M/mm3} (Normal) Range: 4.2-5.4 WBC 7.7 K/mm3 (Normal) Range: 4.4-11.0 :55 LDH 170 U/L (Normal) Comments: Serial Specimen #1, #2 or #3? 1 Range: 87-241 :55 URIC 4.7 mg/dL (Normal) Comments: Serial Specimen #1, #2 or #3? 1 Range: 2.6-6.0 :46 CBC with manual diff Comments: pls also fax to Dr epperson- [phone]; PATIENT NOT FASTINGPERFORMED BY: JJ [facility] Qfhyas9267 [facility] [id number] Information: [id number] CC:[id number] ([id number]) Immature Grans (Abs) 0.0 {x10E3/uL} (Normal) Range: 0.0-0.1 Immature Granulocytes 0 % (Normal) Range: 0-2 Baso (Absolute) 0.0 {x10E3/uL} (Normal) Range: 0.0-0.2 Eos (Absolute) 0.2 {x10E3/uL} (Normal) Range: 0.0-0.4 Monocytes(Absolute) 0.6 {x10E3/uL} (Normal) Range: 0.1-0.9 Lymphs (Absolute) 1.5 {x10E3/uL} (Normal) Range: 0.7-3.1 Neutrophils (Absolute) 4.6 {x10E3/uL} (Normal) Range: 1.4-7.0 Basos 0 % (Normal) Range: 0-3 Eos 3 % (Normal) Range: 0-5 Monocytes 8 % (Normal) Range: 4-12 Lymphs 21 % (Normal) Range: 14-46 Neutrophils 68 % (Normal) Range: 40-74 Platelets 335 {x10E3/uL} (Normal) Range: 155-379 RDW 13.6 % (Normal) Range: 12.3-15.4 MCHC 33.3 g/dL (Normal) Range: 31.5-35.7 MCH 32.2 pg (Normal) Range: 26.6-33.0 MCV 97 fL (Normal) Range: 79-97 Hematocrit 39.3 % (Normal) Range: 34.0-46.6 Hemoglobin 13.1 g/dL (Normal) Range: 11.1-15.9 RBC 4.07 {x10E6/uL} (Normal) Range: 3.77-5.28 WBC 6.8 {x10E3/uL} (Normal) Range: 3.4-10.8 :46 Metabolic Panel, Comprehensive Comments: pls also fax results to Dr epperson- [phone]; PATIENT NOT FASTINGPERFORMED BY: Fanium Bccysg7576 [facility] [id number] ([id number]) ALT (SGPT) 17 [iU]/L (Normal) Range: 0-32 AST (SGOT) 18 [iU]/L (Normal) Range: 0-40 Alkaline Phosphatase, S 92 [iU]/L (Normal) Range: 39-117 Bilirubin, Total 0.3 mg/dL (Normal) Range: 0.0-1.2 A/G Ratio 1.3 (Normal) Range: 1.1-2.5 Globulin, Total 2.9 g/dL (Normal) Range: 1.5-4.5 Albumin, Serum 3.9 g/dL (Normal) Range: 3.6-4.8 Protein, Total, Serum 6.8 g/dL (Normal) Range: 6.0-8.5 Calcium, Serum 9.8 mg/dL (Normal) Range: 8.6-10.2 Carbon Dioxide, Total 26 mmol/L (Normal) Range: 19-28 Chloride, Serum 101 mmol/L (Normal) Range: 97-108 Potassium, Serum 4.4 mmol/L (Normal) Range: 3.5-5.2 Sodium, Serum 140 mmol/L (Normal) Range: 134-144 BUN/Creatinine Ratio 13 (Normal) Range: 11-26 eGFR If Africn Am 83 mL/min/1.73 (Normal) Creatinine, Serum 0.87 mg/dL (Normal) Range: 0.57-1.00 eGFR If NonAfricn Am 72 mL/min/1.73 (Normal) BUN 11 mg/dL (Normal) Range: 8-27 Glucose, Serum 100 mg/dL (Abnormal) Range: 65-99 :46 TSH (THYROID STIMULATING Comments: PATIENT NOT FASTINGPERFORMED BY: FaniumThe Valley HospitalQkaraw1322 [facility] [id number] HORMONE) (66988) TSH 1.350 {uIU/mL} (Normal) Range: 0.450-4.500 :46 CALCIFEDIOL (64081) Comments: PATIENT NOT FASTINGPERFORMED BY: [facility] SystemCo Hlsqae3635 [facility] [id number] Vitamin D, 25-Hydroxy 30.9 ng/mL (Normal) Range: 30.0-100.0 Comments: Vitamin D deficiency has been defined by the [place] ofMedicine and an Endocrine Society practice guideline as alevel of serum 25-OH vitamin D less than 20 ng/mL (1,2).The Endocrine Society went on to further define vitamin Dinsufficiency as a level between 21 and 29 ng/mL (2).1. IOM ([place] of Medicine). 2010. Dietary reference intakes for calcium and D. [place]: The National Academies Press.2. Carlitos MF, Rene LAUREANO, Garth CARROLL, et al. Evaluation, treatment, and prevention of vitamin D deficiency: an Endocrine Society clinical practice guideline. JCEM. 2010; 96(7):1911-30. 55-Hfu-286921:28 HgA1C , Office (89818) HgA1C , Office 5.3 % (Normal) Range: 4.6 - 7.1 23-Vtz-892944:36 Renal function Panel Comments: PATIENT NOT FASTINGPERFORMED BY: Fanium Rvzfrx2048 [facility] [id number] Information: ADD [id number] AND DRAW FEE 99 0542 (38107) Albumin, Serum 4.2 g/dL (Normal) Range: 3.6-4.8 Phosphorus, Serum 3.8 mg/dL (Normal) Range: 2.5-4.5 Calcium, Serum 9.7 mg/dL (Normal) Range: 8.6-10.2 Carbon Dioxide, Total 23 mmol/L (Normal) Range: 19-28 Chloride, Serum 105 mmol/L (Normal) Range: 97-108 Potassium, Serum 4.6 mmol/L (Normal) Range: 3.5-5.2 Sodium, Serum 141 mmol/L (Normal) Range: 134-144 BUN/Creatinine Ratio 14 (Normal) Range: 11-26 eGFR If Africn Am 75 mL/min/1.73 (Normal) eGFR If NonAfricn Am 65 mL/min/1.73 (Normal) Creatinine, Serum 0.94 mg/dL (Normal) Range: 0.57-1.00 BUN 13 mg/dL (Normal) Range: 8-27 Glucose, Serum 114 mg/dL (Abnormal) Range: 65-99 19-Bns-506280:36 CALCIFEDIOL (87245) Comments: PATIENT NOT FASTINGPERFORMED BY: FaniumThe Valley HospitalMzrfyl7269 [facility] [id number] Vitamin D, 25-Hydroxy 29.9 ng/mL (Abnormal) Range: 30.0-100.0 Comments: Vitamin D deficiency has been defined by the [place] ofMedicine and an Endocrine Society practice guideline as alevel of serum 25-OH vitamin D less than 20 ng/mL (1,2).The Endocrine Society went on to further define vitamin Dinsufficiency as a level between 21 and 29 ng/mL (2).1. IOM ([place] of Medicine). 2010. Dietary reference intakes for calcium and D. [place]: The National Academies Press.2. Carlitos MF, Rene LAUREANO, Garth CARROLL, et al. Evaluation, treatment, and prevention of vitamin D deficiency: an Endocrine Society clinical practice guideline. JCEM. 2010; 96(7):1911-30. 66-Yqm-944985:36 HEPATIC FUNCTION PANEL Comments: PATIENT NOT FASTINGPERFORMED BY: [facility] SystemCoThe Valley HospitalUltnkk0945 [facility] [id number] (88919) ALT (SGPT) 25 [iU]/L (Normal) Range: 0-32 AST (SGOT) 17 [iU]/L (Normal) Range: 0-40 Alkaline Phosphatase, S 86 [iU]/L (Normal) Range: 47-112 Comments: Please note reference interval change Bilirubin, Direct 0.11 mg/dL (Normal) Range: 0.00-0.40 Bilirubin, Total 0.3 mg/dL (Normal) Range: 0.0-1.2 Protein, Total, Serum 6.6 g/dL (Normal) Range: 6.0-8.5 Plan of Care Name Dates Details Instructions BMI 40.0-44.9, adult : Follow up in 2 months Indication: BMI 40.0-44.9, adult COPD (chronic obstructive pulmonary disease) : Reviewed Diagnostic Tests Indication: COPD (chronic obstructive pulmonary disease) BMI 40.0-44.9, adult : Eprescribed prescriptions (G8553) Indication: BMI 40.0-44.9, adult Need for prophylactic vaccination and inoculation against influenza (Renamed from Need for immunization against influenza) : Follow up in 6 weeks Indication: Need for prophylactic vaccination and inoculation against influenza (Renamed from Need for immunization against influenza) Smoker : Eprescribed prescriptions (G8553) Indication: Smoker Smoker : Smoking: Ways to Quit: smoking cessation Indication: Smoker Elevated blood pressure reading : High Blood Pressure (Essential Hypertension) *: blood pressure Indication: Elevated blood pressure reading Elevated blood pressure reading : Diet, Exercise, and Wt loss Indication: Elevated blood pressure reading Elevated blood pressure reading : HTN/CAD Red Flags Indication: Elevated blood pressure reading BMI 40.0-44.9, adult : Eprescribed prescriptions (G8553) Indication: BMI 40.0-44.9, adult Smoker : Follow up in 3 months Indication: Smoker BMI 39.0-39.9,adult : Eprescribed prescriptions (G8553) Indication: BMI 39.0-39.9,adult Breast cancer : Follow up in 3 months for Gen med Indication: Breast cancer Abnormal glucose tolerance test (GTT) : Eprescribed prescriptions (G8553) Indication: Abnormal glucose tolerance test (GTT) Breast cancer : Follow up in 4 months Indication: Breast cancer Smoker : Eprescribed prescriptions (G8553) Indication: Smoker Hypercholesterolemia : Follow up in 3-4 months Indication: Hypercholesterolemia Hyperglycemia : Eprescribed prescriptions (G8553) Indication: Hyperglycemia BMI 39.0-39.9,adult : Follow up in 3 months Indication: BMI 39.0-39.9,adult Swelling (Renamed from Part of body swollen) : Eprescribed prescriptions (G8553) Indication: Swelling (Renamed from Part of body swollen) Swelling (Renamed from Part of body swollen) : Follow up in 2 weeks Indication: Swelling (Renamed from Part of body swollen) Hypertension, benign : Eprescribed prescriptions (G8553) Indication: Hypertension, benign Arthralgia : Follow up in 2 days Indication: Arthralgia BMI 40.0-44.9, adult : Follow up in 3 months Indication: BMI 40.0-44.9, adult Abnormal glucose tolerance test (GTT) : Eprescribed prescriptions (G8553) Indication: Abnormal glucose tolerance test (GTT) Hypercholesterolemia : Reviewed Lab Indication: Hypercholesterolemia Parkinson disease, symptomatic : Reviewed Lab Indication: Parkinson disease, symptomatic Immunocompromised : Reviewed Lab Indication: Immunocompromised Hypertension, benign : Reviewed Lab Indication: Hypertension, benign Hyperglycemia : Reviewed Diagnostic Tests Indication: Hyperglycemia Knee pain, right : Follow up in 3 months Indication: Knee pain, right Connective tissue disease : Follow up in 3 months Indication: Connective tissue disease Hypertension, benign : HTN/CAD Red Flags Indication: Hypertension, benign Hyperglycemia : Eprescribed prescriptions (G8553) Indication: Hyperglycemia Cellulitis of trunk, unspecified site of trunk : Follow up if no improvement or if symptoms worsen Indication: Cellulitis of trunk, unspecified site of trunk Cellulitis of trunk, unspecified site of trunk : Eprescribed prescriptions (G8553) Indication: Cellulitis of trunk, unspecified site of trunk Immunocompromised : Follow up in 1 week Indication: Immunocompromised Cellulitis of trunk, unspecified site of trunk : I/D Cyst/Abscess Indication: Cellulitis of trunk, unspecified site of trunk Smoking addiction : Follow up in 3 months 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 Indication: Smoking addiction Hypertension, benign : Reviewed Lab Indication: Hypertension, benign Hyperkalemia : Reviewed Lab Indication: Hyperkalemia Hypercholesterolemia : Reviewed Lab Indication: Hypercholesterolemia Hypercholesterolemia : Diet, Exercise, and Wt loss Indication: Hypercholesterolemia Hyperkalemia : Eprescribed prescriptions (G8553) Indication: Hyperkalemia Hypercholesterolemia : Follow up in 3 months Indication: Hypercholesterolemia Hypertension, benign : Reviewed Diagnostic Tests Indication: Hypertension, benign Polyarthropathy (Renamed from Inflammation of multiple joints) : Reviewed Diagnostic Tests Indication: Polyarthropathy (Renamed from Inflammation of multiple joints) Right leg swelling : Reviewed Diagnostic Tests Indication: Right leg swelling Prediabetes : Reviewed Diagnostic Tests Indication: Prediabetes Abdominal swelling : Follow up in 1 week Indication: Abdominal swelling Abdominal swelling : Follow up in 3 months Indication: Abdominal swelling Hyperglycemia : Follow up in 3 months Indication: Hyperglycemia Vitamin D deficiency : Follow up in 3 months Indication: Vitamin D deficiency MRSA (methicillin resistant Staphylococcus aureus) : Follow up if no improvement or if symptoms worsen Indication: MRSA (methicillin resistant Staphylococcus aureus) MRSA (methicillin resistant Staphylococcus aureus) : Reviewed Diagnostic Tests Indication: MRSA (methicillin resistant Staphylococcus aureus) MRSA (methicillin resistant Staphylococcus aureus) : Follow up in 1 week Indication: MRSA (methicillin resistant Staphylococcus aureus) MRSA (methicillin resistant Staphylococcus aureus) : Reviewed Lab Indication: MRSA (methicillin resistant Staphylococcus aureus) Hypercholesterolemia : Reviewed Diagnostic Tests Indication: Hypercholesterolemia Polyarthropathy (Renamed from Inflammation of multiple joints) : Reviewed Lab Indication: Polyarthropathy (Renamed from Inflammation of multiple joints) Positive MIMI (antinuclear antibody) : Reviewed Diagnostic Tests Indication: Positive MIMI (antinuclear antibody) Hypertension, benign : Reviewed Lab Indication: Hypertension, benign COPD (chronic obstructive pulmonary disease) : Follow up in 3 months for GEn med and make an appt for this saturday am with [facility] Indication: COPD (chronic obstructive pulmonary disease) Knee pain, right : Follow up in 1 month with [facility] for Gen Med Indication: Knee pain, right Knee pain, right : Follow up if no improvement or if symptoms worsen Indication: Knee pain, right Knee pain, right : Reviewed Shipping And Receiving Letter Indication: Knee pain, right Knee pain, right : Reviewed Diagnostic Tests Indication: Knee pain, right Knee pain, right : Follow up in 2 weeks Indication: Knee pain, right Knee pain, right : Arthritis Overview *: swelling Indication: Knee pain, right Knee pain, right : Eprescribed prescriptions (G8553) Indication: Knee pain, right Hyperkalemia : Follow up if no improvement or if symptoms worsen Indication: Hyperkalemia Polyarthropathy (Renamed from Inflammation of multiple joints) : Follow up in 6 weeks Indication: Polyarthropathy (Renamed from Inflammation of multiple joints) Positive MIMI (antinuclear antibody) : Follow up in 4 weeks Indication: Positive MIMI (antinuclear antibody) Planned Observations MICROALBUMIN: CREATININE RATIO (67400) AND (62764)Indication: SOB (shortness of breath) On: 06-Sep-20179:47 Request TSH (36103)Indication: SOB (shortness of breath) On: 06-Sep-20179:47 Request FABIAN CULTURE-BLOOD (94910)Indication: Elevated WBC count On: 6-Ftz-190129:29 Request FABIAN CULTURE-BLOOD (53713)Indication: Elevated WBC count On: 3-Cgr-622787:29 Request MRSA Culture (85604)Indication: Cellulitis of trunk, unspecified site of trunk On: 69-Duy-163474:04 Request Comments: nose HgA1C , Office (26758)Indication: Prediabetes On: 2-Cqz-920817:02 Request MRSA Culture ([id number])Indication: Cellulitis On: 38-Dvq-73897:40 Request FABIAN CULTURE-OTHER (76832)Indication: Cellulitis On: 27-Hff-65808:39 Request POTASSIUM SERUM (09315)Indication: Hyperkalemia On: 92-Wuy-98822:14 Request Comments: pls call results to [phone] Planned Encounters Medical; 2 Month FU - On: 14-Apr-2018 9:30 [facility] Sandra Degroot CNP, CNP Pili Planned Procedures Flu Vaccine (Quadrivalent) 67702Ri: On: 25-Dec-2017 Intent Sandra Degroot CNP, CNP Pili PHYSICAL THERAPY (56952)By: Gabriele, On: 17-Dec-2017 Intent [facility] - Knee - RightBy: Gabriele On: 17-Dec-[address] THORAX W CONTRAST (03534)By: On: 11-Oct-2017 Intent Sandra Degroot CNP, CNP Pili Comments: new rt lower 4.5mm lung nodule ordered by Dr. Brittney shrestha in October of 2016 CT chest without contrast PET-CT ENTIRE BODY (50944)By: Zane On: 24-Sep-2017 Intent Sandra ZAVALA CNP Pili CONTINUOUS OVERNIGHT PULSE OXIMETRY On: 06-Sep-2017 Intent (33084)By: Sandra Degroot CNP, CNP Pili CT - Chest (IV Contrast Needed)By: On: 06-Sep-2017 Intent Sandra Degroot CNP, CNP Pili CONTINUOUS OVERNIGHT PULSE OXIMETRY On: 06-Sep-2017 Intent (86983)By: Sandra Degroot CNP, CNP, Mary E Spirometry (05216)By: Zane ZAVALA, On: 06-Sep-2017 Intent Sandra Muhammad CNP Six Minute Walk Assessment On: 06-Sep-2017 Intent (45987)By: Sandra Degroot CNP, CNP Pili Flu Vaccine (Quadrivalent) 80178Ew: On: 01-Jan-2017 Intent Nai Trevizo LPN Comments: InfluenzaLot #[id number]-09/23/18Site-R dltd, IMDose prefilled syringeVIS and ABN signedgiven by:ROSA gallardo Spirometry (57594)By: Zane ZAVALA, On: 04-Sep-2016 Intent Sandra Degroot [employer], Sandra Lockwood Comments: severe airway obstruction with low vital capacity Aerosol Treatment (61363)By: Zane On: 04-Sep-2016 Intent Sandra ZAVALA Zane ZAVALA Sandra Lockwood Aerosol Treatment (95431)By: Zane On: 11-Jul-2016 Intent SALLY Sandra Lockwood Zane ZAVALA Pili Radiology - ChestBy: Zane ZAVALASandra On: 09-Jul-2016 Intent Mandie Zane ZAVALASandra Aerosol Treatment (18166)By: Zane On: 09-Jul-2016 Intent Sandra ZAVALA Zane ZAVALA Sandra Lockwood Flu Vaccine (Quadrivalent) 04638Sn: On: 07-Feb-2016 Intent Zane ZAVALA Sandra Lockwood Zane ZAVALA Pili Comments: Lot:[id number]:10/05/16Dose:0.5mLRoute:IMSite:r DltdGiven By:Emely signed Rocephin Injection, 2 Gram On: 06-Sep-2015 Intent (J0696)By: Zane ZAVALA PiliMandie Degroot CNP Pili Ultrasound - Abdomen CompleteBy: On: 13-May-2015 Intent Zane ZAVALA PiliMandie Degroot CNP Pili Venous Doppler - RightBy: Zane ZAVALA, On: 13-May-2015 Intent PiliMandie Degroot CNP Pili PHYSICAL THERAPY EVALUATION On: 14-Jul-2014 Intent (32830)By: Sandra Degroot CNP, CNP Pili Radiology - Knee - RightBy: Zane On: 14-Jul-2014 Intent SALLY Sandra Lockwood Zane ZAVALA Pili IV Needle placement (56413)By: On: 24-Feb-2014 Intent Zane ZAVALA PiliMandie Degroot CNP Pili Comments: 22G insyte initiated in R medial wrist, no s/s infiltration, redness, swelling, dsg dry intact, infusing on gravity pole at 48gtts/min- catheter removed intact, tolerated well- 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 Rocephin Injection, 2 Gram On: 24-Feb-2014 Intent (J0696)By: Sandra Degroot CNP Comments: lot # [id number]- 09/06/16site-R medial wrist route-IVdose- 2GCTyler Sandra LEE CNP ELECTROCARDIOGRAM, COMPLETE (ECG) On: 22-Dec-2013 Intent (56967)By: Sandra Degroot CNP, CNP, Mary E FLU VAC, SPLIT, >3 YEARS, INTRAMUSC On: 30-Dec-2012 Intent (49598)By: Leslie Roberts LPN Comments: Lot:[id number]:Dose:0.5mLRoute:IMSite:L DltdGiven By:DELILAH signed IMMUNIZ ADMNIN, 1 VAC, SNGL/COMBO On: 30-Dec-2012 Intent (33323)By: Leslie Roberts LPN Planned Medications INJECTION, CEFTRIAXONE SODIUM, PER 250 MG Ordered: 24-Feb-2014 Pending Sandra Degroot CNP, CNP, Mary E INJECTION, CEFTRIAXONE SODIUM, PER 250 MG Ordered: 06-Sep-2015 Pending Sandra Degroot CNP, CNP, Mary E Instructions Name Dates Details BMI 40.0-44.9, adult : How to access health information online Indication: BMI 40.0-44.9, adult BMI 40.0-44.9, adult : How to access health information online - Detail Indication: BMI 40.0-44.9, adult BMI 40.0-44.9, adult : Patient Instructions Indication: BMI 40.0-44.9, adult Smoker : How to access health information online Indication: Smoker Smoker : How to access health information online - Detail Indication: Smoker Smoker : Patient Instructions Indication: Smoker BMI 40.0-44.9, adult : How to access health information online Indication: BMI 40.0-44.9, adult BMI 40.0-44.9, adult : How to access health information online - Detail Indication: BMI 40.0-44.9, adult Knee pain, right : Patient Instructions Indication: Knee pain, right BMI 39.0-39.9,adult : How to access health information online Indication: BMI 39.0-39.9,adult BMI 39.0-39.9,adult : How to access health information online - Detail Indication: BMI 39.0-39.9,adult BMI 39.0-39.9,adult : Patient Instructions Indication: BMI 39.0-39.9,adult Breast cancer : Patient Instructions Indication: Breast cancer Abnormal glucose tolerance test (GTT) : How to access health information online Indication: Abnormal glucose tolerance test (GTT) Abnormal glucose tolerance test (GTT) : How to access health information online - Detail Indication: Abnormal glucose tolerance test (GTT) Abnormal glucose tolerance test (GTT) : Patient Instructions Indication: Abnormal glucose tolerance test (GTT) Smoker : How to access health information online Indication: Smoker Smoker : How to access health information online - Detail Indication: Smoker Smoker : Patient Instructions Indication: Smoker Hypercholesterolemia : Patient Instructions Indication: Hypercholesterolemia Hyperglycemia : How to access health information online Indication: Hyperglycemia Hyperglycemia : How to access health information online - Detail Indication: Hyperglycemia Hyperglycemia : Patient Instructions Indication: Hyperglycemia Swelling (Renamed from Part of body swollen) : How to access health information online Indication: Swelling (Renamed from Part of body swollen) Swelling (Renamed from Part of body swollen) : How to access health information online - Detail Indication: Swelling (Renamed from Part of body swollen) Swelling (Renamed from Part of body swollen) : Patient Instructions Indication: Swelling (Renamed from Part of body swollen) Hypertension, benign : How to access health information online Indication: Hypertension, benign Hypertension, benign : How to access health information online - Detail Indication: Hypertension, benign Hypertension, benign : Patient Instructions Indication: Hypertension, benign Smoker : Patient Instructions Indication: Smoker Abnormal glucose tolerance test (GTT) : How to access health information online Indication: Abnormal glucose tolerance test (GTT) Abnormal glucose tolerance test (GTT) : How to access health information online - Detail Indication: Abnormal glucose tolerance test (GTT) Abnormal glucose tolerance test (GTT) : Patient Instructions Indication: Abnormal glucose tolerance test (GTT) Hypertension, benign : DISCONTINUED - METABOLIC PANEL, COMPREHENSIVE (88832) Indication: Hypertension, benign Hypertension, benign : DISCONTINUED - CBC with auto diff ([id number]) Indication: Hypertension, benign Hyperglycemia : How to access health information online Indication: Hyperglycemia Hyperglycemia : How to access health information online - Detail Indication: Hyperglycemia Hyperglycemia : Patient Instructions Indication: Hyperglycemia Cellulitis of trunk, unspecified site of trunk : How to access health information online Indication: Cellulitis of trunk, unspecified site of trunk Cellulitis of trunk, unspecified site of trunk : How to access health information online - Detail Indication: Cellulitis of trunk, unspecified site of trunk Cellulitis of trunk, unspecified site of trunk : Patient Instructions Indication: Cellulitis of trunk, unspecified site of trunk Cellulitis of trunk, unspecified site of trunk : Patient Instructions Indication: Cellulitis of trunk, unspecified site of trunk Immunocompromised : Patient Instructions Indication: Immunocompromised Hyperkalemia : How to access health information online Indication: Hyperkalemia Hyperkalemia : How to access health information online - Detail Indication: Hyperkalemia Hyperkalemia : Patient Instructions Indication: Hyperkalemia Vitamin D deficiency : Patient Instructions Indication: Vitamin D deficiency Hyperglycemia : Patient Instructions Indication: Hyperglycemia Knee pain, right : Patient Instructions Indication: Knee pain, right Knee pain, right : How to access health information online Indication: Knee pain, right Knee pain, right : How to access health information online - Detail Indication: Knee pain, right Knee pain, right : Patient Instructions Indication: Knee pain, right Parkinson disease, symptomatic : Patient Instructions Indication: Parkinson disease, symptomatic Positive MIMI (antinuclear antibody) : Patient Instructions Indication: Positive MIMI (antinuclear antibody) Advance Directives Name Dates Details Immunization Registry [facility] - Effective on Effective: 01-Jan-201801/01/2018. Expiration date unspecified Encounters Office Visit On: 10-Feb-2018 10:26 Encounter Reason: Follow up acute care visit - The patient feeling better since last seen. Note for Follow up acute care visit: Has had follow up with oncology and will be needing CT and biopsyEncounter Diagnosis: Smoker, BMI 40.0- 44.9, adult, End: 10-Feb-2018 11:37 Oxygen dependent, Breast cancer (174.9), COPD (chronic obstructive pulmonary disease), Lung nodules, Right leg swelling [facility] Annotation/Addendum On: 30-Dec-2017 6:09 Encounter Diagnosis: Lower urinary tract infection End: 30-Dec-2017 6:15 [facility] Annotation/Addendum On: 25-Dec-2017 12:30 Encounter Diagnosis: Urinary frequency End: 25-Dec-2017 12:35 [facility] Office Visit On: 25-Dec-2017 10:19 Encounter Reason: Follow up for chronic medical issues - The patient feels well with minor complaints, has decreased energy level and is sleeping poorly (broken). Patient has been compliant with instructions. Current med End: 25-Dec-2017 11:48 ication use: experiencing side effects (propranolol-- not diarrhea, but i have a bm several times a day), compliant with dosing regimen and considered effective by patient. Patient sleeps 5 (broken) geena rs per night. Nutrition: balanced diet. The medical issues the patient is following up for include All identified problems below, blood sugar issues, COPD, high blood pressure, high cholesterol, osteoarthritis and other (Br CA, MCTD, LUPUS). Encounter Diagnosis: BMI 40.0-44.9, adult, Smoker, Abnormal glucose tolerance test (GTT), Urinary frequency, Knee pain, right, Yeast infection of the vagina, Oxygen dependent, Need for prophylactic vaccination and inoculation against influenza (Renamed from Need for immunization against influenza), Hypertension [facility] Phone Encounter On: 19-Dec-2017 7:10 Encounter Diagnosis: Yeast infection of the vagina End: 19-Dec-2017 7:13 [facility] Office Visit On: 17-Dec-2017 8:36 Encounter Reason: Knee Pain - The injury involved the right knee (injured YEARS ago and has bothered me since.). Note for Knee pain: Symptoms started about 6- 7 years with right knee pain ago when fell at work. Went to End: 17-Dec-2017 9:37 [facility] for injury. They said the patella was dislocated and put me in a brace Did not follow up with Ortho. Ever since knee has been more swollen the left knee and painful. Painful when getting up. No t much pain with walking. No redness to right knee. Was given an order for a knee brace a few years ago but did not get it.Encounter Diagnosis: Smoker, BMI 40.0- 44.9, adult, Knee pain, right, Swelling of right knee joint, Elevated blood pressure reading [facility] Annotation/Addendum On: 11-Oct-2017 8:57 Encounter Diagnosis: Lung nodule < 6cm on CT End: 11-Oct-2017 9:00 [facility] Phone Encounter On: 24-Sep-2017 16:32 Encounter Diagnosis: Abnormal CT of the chest End: 24-Sep-2017 16:46 [facility] Office Visit On: 23-Sep-2017 13:31 Encounter Reason: Follow up acute care visit - The patient improving (walking better with o2 and have cut back on smoking). Note for Follow up acute care visit: Feeling better with oxygen.Encounter Diagnosis: BMI 39.0-39.9,adult, Smoker, End: 23-Sep-2017 14:08 COPD (chronic obstructive pulmonary disease), Oxygen dependent [facility] Annotation/Addendum On: 06-Sep-2017 11:52 Encounter Diagnosis: SOB (shortness of breath) End: 06-Sep-2017 11:53 [facility] Annotation/Addendum On: 06-Sep-2017 8:16 [facility] End: 06-Sep-2017 9:20 Office Visit On: 06-Sep-2017 7:00 Encounter Reason: Follow up for chronic medical issues - The patient feels well with no complaints, has good energy level and is sleeping poorly. Patient has been compliant with instructions. Current medication use: no s End: 06-Sep-2017 10:33 nito effects (dry mouth), compliant with dosing regimen and considered effective by patient. Patient sleeps 6 (broken) hours per night. Nutrition: balanced diet (attempted). The medical issues the patien t is following up for include All identified problems below, blood sugar issues, COPD, high blood pressure, high cholesterol, osteoarthritis and other (Br CA, MCTD, LUPUS). Note for Follow up for chron ic medical issues: Diabetes and respiratory issues tp be reviewed, [ADDITIONAL REASON] Shortness of Breath - Symptoms include dyspnea and cough (not worse). The sympto ms occur constantly. The patient describes this as worsening. Associated symptoms include edema (leg). Note for Shortness of breath: Daughter reports SOB of mom and Sob, over last 1 yr. has worsening SOB Encounter Diagnosis: Abnormal glucose tolerance test (GTT), Smoker, Cough, Lupus, BMI 39.0-39.9,adult, SOB (shortness of breath), Emphysema/COPD, Breast cancer (174.9), Lung nodule < 6cm on CT [facility] Office Visit On: 14-May-2017 9:29 Encounter Reason: Follow up for chronic medical issues - The patient feels well with no complaints, has good energy level and is sleeping poorly. Patient has been compliant with instructions. Current medication use: no s End: 14-May-2017 10:51 nito effects (dry mouth), compliant with dosing regimen and considered effective by patient. Patient sleeps 6 (broken) hours per night. Nutrition: balanced diet (attempted). The medical issues the patitobi t is following up for include All identified problems below, blood sugar issues, COPD, high blood pressure, high cholesterol, osteoarthritis and other (Br CA, MCTD, LUPUS). Note for Follow up for chronic medical issues: feels excellent. has no pain , [ADDITIONAL REASON] Follow up tests - Diagnostic tests include other (labs). Date: (05/07/17). Encounter Diagnosis: Emphysema/COPD, Hypertension, benign, BMI 40.0-44.9, adult, Smoker, Abnormal glucose tolerance test (GTT), Polyarthropathy (Renamed from Inflammation of multiple joints), Osteoarthritis, Lupus, Hidradenitis suppurativa, Parkinsons, Breast cancer (174.9) [facility] Annotation/Addendum On: 08-May-2017 16:17 Encounter Diagnosis: Vaginal yeast infection End: 08-May-2017 16:18 [facility] Office Visit On: 01-Jan-2017 7:40 Encounter Reason: Follow up for chronic medical issues - The patient feels well with minor complaints and is sleeping poorly (wake up to pee). Patient has been compliant with instructions. Current medication use: no side End: 01-Jan-2017 10:06 effects (dry mouth), compliant with dosing regimen and considered effective by patient. Patient sleeps 6 (broken) hours per night. Nutrition: balanced diet (attempted). The medical issues the patient i s following up for include All identified problems below, blood sugar issues, COPD, high blood pressure, high cholesterol, osteoarthritis and other (Br CA, MCTD, LUPUS). Note for Follow up for chronic medical issues: Still cough, Encounter Diagnosis: Cough, BMI 40.0-44.9, adult, Smoker, Need for prophylactic vaccination and inoculation against influenza (Renamed from Need for immunization against influenza), Hyperglycemia, Emphysema/COPD, Hypertension, benign, Breast cancer (174.9), Vitamin D deficiency, Parkinson disease, symptomatic, Arthralgia, Polyarthropathy (Renamed from Inflammation of multiple joints), Osteoporosis, Hypercholesterolemia [facility] Office Visit On: 18-Sep-2016 14:26 Encounter Reason: Follow up tests - Diagnostic tests include other (labs). Note for Discuss procedure results: Has done lasix with improvement of swelling Encounter Diagnosis: Smoker, Emphysema/COPD, Swelling (Renamed from Part of body swollen), End: 18-Sep-2016 15:21 BMI 39.0-39.9,adult, Hypertension, benign, Cellulitis [facility] Office Visit On: 04-Sep-2016 7:56 Encounter Reason: Follow up for chronic medical issues - The patient feels well with minor complaints (still having cough and SOB, headaches, leg swelling) and is sleeping poorly. Patient has been compliant with instruct End: 04-Sep-2016 11:47 ions. Current medication use: no side effects, compliant with dosing regimen and considered effective by patient. Patient sleeps 6 hours per night. Nutrition: balanced diet (attempted). The medical issu es the patient is following up for include All identified problems below, blood sugar issues, COPD, high blood pressure, high cholesterol, osteoarthritis and other (Br CA, MCTD, LUPUS). Note for Follow up for chronic medical issues: Still cough, , [ADDITIONAL REASON] Edema - Symptoms include edema. Onset was 3 week(s) ago. The patient describes this as unchanged. Previous presentation included bilateral lower extremity edema. Encounter Diagnosis: Abnormal glucose tolerance test (GTT), Hypertension, benign, Smoker, BMI 40.0-44.9, adult, Emphysema/COPD, Lung nodule < 6cm on CT, Breast cancer (174.9), Tremor, Swelling (Renamed from Part of body swollen) [facility] Annotation/Addendum On: 13-Jul-2016 12:57 Encounter Diagnosis: H. influenzae infection End: 13-Jul-2016 12:59 [facility] Office Visit On: 11-Jul-2016 11:00 Encounter Reason: Follow up tests - Diagnostic tests include chest X-ray. Note for Discuss procedure results: Not hurting as much as before but still weak. Today able to eat but not much Encounter Diagnosis: BMI 40.0-44.9, adult, Smoker, End: 11-Jul-2016 11:59 E. coli UTI, Elevated WBC count, Elevated sed rate, Emphysema/COPD [facility] Office Visit On: 09-Jul-2016 11:23 Encounter Reason: Arthralgias - The symptoms are located in the neck, upper back, mid back, lower back, left shoulder, left elbow, left wrist, left hand, left finger(s), left hip, left knee, left ankle, right shoulder, r End: 09-Jul-2016 12:15 ight elbow, right wrist, right hand, right finger(s), right hip, right knee and right ankle. The pain is described as aching. Onset was 4 day(s) ago. The symptoms occur constantly. The patient describes this as worsening. Associated symptoms include fatigue and anorexia. Previous presentation included joint pain, fatigue and weakness. Note for Arthralgias: all joints and bones ache, , [ADDITIONAL REASON] Cough - Symptoms include cough, dyspnea and myalgias. The cough is described as wheezy. Encounter Diagnosis: BMI 40.0-44.9, adult, Abnormal glucose tolerance test (GTT), Smoker, Arthralgia, Cough, Abnormal urine, Lung nodule < 6cm on CT [facility] Office Visit On: 01-Jun-2016 13:43 Encounter Reason: Follow up for chronic medical issues - The patient feels well with minor complaints and is sleeping poorly. Patient has been compliant with instructions. Current medication use: no side effects, complia End: 01-Jun-2016 15:07 nt with dosing regimen and considered effective by patient. Patient sleeps 6 hours per night. Nutrition: balanced diet (attempted). The medical issues the patient is following up for include All identif ied problems below, blood sugar issues, COPD, high blood pressure, high cholesterol, osteoarthritis and other (Br CA, MCTD, LUPUS).Encounter Diagnosis: Abnormal glucose tolerance test (GTT), Hypercholesterolemia, Hypertension, benign, Vitamin D deficiency, Osteoarthritis, BMI 40.0-44.9, adult, Cough, COPD (chronic obstructive pulmonary disease) [facility] Office Visit On: 29-Feb-2016 12:54 Encounter Reason: Follow up for chronic medical issues - The patient feels well with minor complaints (right knee swelling) and is sleeping poorly. Patient has been compliant with instructions. Current medication use: no End: 29-Feb-2016 15:01 side effects, compliant with dosing regimen and considered effective by patient. Patient sleeps 6 hours per night. Nutrition: balanced diet (attempted). The medical issues the patient is following up f or include All identified problems below, blood sugar issues, COPD, high blood pressure, high cholesterol, osteoarthritis and other (Br CA, MCTD, LUPUS)., [ADDITIONAL REASON] Follow up tests - Diagnostic tests include other (labs). Encounter Diagnosis: BMI 40.0-44.9, adult, Hyperglycemia, Smoking addiction (305.1), Hypertension, benign, Immunocompromised, Parkinson disease, symptomatic, Breast cancer (174.9), Hypercholesterolemia, Knee pain, right [facility] Nurse Visit On: 07-Feb-2016 9:00 Encounter Reason: Injections - The medication the patient is here to receive is other (flu).Encounter Diagnosis: Need for prophylactic vaccination and inoculation against influenza End: 07-Feb-2016 10:51 [facility] Office Visit On: 29-Nov-2015 7:28 Encounter Reason: Follow up for chronic medical issues - The patient feels well with no complaints and is sleeping poorly. Patient has been compliant with instructions. Current medication use: no side effects, compliant End: 29-Nov-2015 9:36 with dosing regimen and considered effective by patient. Patient sleeps 6 hours per night. Nutrition: balanced diet (attempted). The medical issues the patient is following up for include All identified problems below, blood sugar issues, COPD, high blood pressure, high cholesterol, osteoarthritis and other (Br CA, MCTD, LUPUS).Encounter Diagnosis: Vitamin D deficiency, Osteoarthritis, Parkinson disease, symptomatic, COPD (chronic obstructive pulmonary disease), Hypercholesterolemia, Hyperglycemia, Connective tissue disease, Hypertension, benign [facility] Phone Encounter On: 03-Oct-2015 11:27 Encounter Diagnosis: Unspecified Diagnosis End: 03-Oct-2015 11:36 [facility] Office Visit On: 20-Sep-2015 9:59 Encounter Reason: Follow up acute care visit - The patient feeling better since last seen. Patient has been compliant with instructions. Current medication use: no side effects. The medical issues the patient is following up for include other (MRSA). End: 20-Sep-2015 10:33 Encounter Diagnosis: Cellulitis of trunk, unspecified site of trunk [facility] Annotation/Addendum On: 16-Sep-2015 10:03 Encounter Diagnosis: Cellulitis End: 16-Sep-2015 10:04 [facility] Office Visit On: 09-Sep-2015 7:05 Encounter Reason: Skin Lesions - The last clinic visit was 3 day(s) ago. Management changes made at the last visit include adding MRSA scrub/ointment. Symptoms include single skin lesion. Lesion(s) are located on the lef End: 09-Sep-2015 10:53 t trunk area. The patient describes the lesion(s) as painful and pink. Onset was sudden 1 week(s) ago. The symptoms occur constantly. The patient describes this as worsening. Symptoms are exacerbated by fatigue. Associated symptoms do not include chills, fever, joint pain, nausea, bleeding, numbness, shortness of breath, vomiting or wheezing. Presentation included erythema and pain., [ADDITIONAL REASON] Follow up tests - Diagnostic tests include other (labs, cultures). Encounter Diagnosis: MRSA (methicillin resistant Staphylococcus aureus), Cellulitis of trunk, unspecified site of trunk [facility] Office Visit On: 06-Sep-2015 10:09 Encounter Reason: Skin Lesions - Symptoms include single skin lesion. Lesion(s) are located on the left trunk area. The patient describes the lesion(s) as painful and pink. Onset was sudden 1 week(s) ago. The symptoms oc End: 06-Sep-2015 11:11 cur constantly. The patient describes this as worsening. Symptoms are exacerbated by fatigue. Associated symptoms do not include chills, fever, joint pain, nausea, bleeding, numbness, shortness of breat h, vomiting or wheezing. Presentation included erythema and pain.Encounter Diagnosis: Cellulitis of trunk, unspecified site of trunk, Immunocompromised [facility] Office Visit On: 23-Aug-2015 7:51 Encounter Reason: Annual Medicare Exam - The patient had reviewed and updated the family history, medication/s, past medical history and social history. Yes the patient did have a mini mental status exam done today. The End: 24-Aug-2015 9:13 activities of daily living the patient needs help with are none. The patient has had urinary incontinence, but the patient has not had fecal incontinence, missed or ran out of medications to soon, drive n in past 6 months, fallen in the past 6 months, gotten lost, has a medalert necklace or bracelet, put area rugs through house or put handrails in bathroom. The patient has completed the following preve ntative measures: PAP smear (Not since hysterectomy) and mammography (April 2015). The patient does not have durable power of assistant prosecuting attorney or 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 Dr. Ahumada neurology. )., [ADDITIONAL REASON] Follow up for chronic medical issues - The patient feels well with minor complai nts (rash from pool), has decreased energy level and is sleeping poorly. Patient has been compliant with instructions. Current medication use: no side effects, compliant with dosing regimen and consider ed effective by patient. Patient sleeps 6 hours per night. Nutrition: balanced diet (attempted). The medical issues the patient is following up for include All identified problems below, COPD, high bloo d pressure, high cholesterol, osteoarthritis and other (Br CA, MCTD, LUPUS). Encounter Diagnosis: Hyperkalemia, Hypercholesterolemia, Hypertension, benign, COPD (chronic obstructive pulmonary disease), Prediabetes, Vitamin D deficiency (268.9), Parkinson disease, symptomatic, Lupus, BMI 40.0-44.9, adult, Smoking addiction (305.1), Rash, Encounter for routine adult medical exam with abnormal findings [facility] Phone Encounter On: 11-Aug-2015 8:26 Encounter Diagnosis: Hyperkalemia End: 11-Aug-2015 8:31 [facility] Office Visit On: 24-May-2015 8:33 Encounter Reason: Edema - The onset of the edema has been sudden and has been occurring in a persistent pattern for 2 weeks. The course has been constant. The edema is described as being located in the right lower extrem End: 24-May-2015 9:15 ity and the abdomen. The symptoms have been associated with ascites and fatigue.Encounter Diagnosis: Swelling (Renamed from Part of body swollen), Hypercholesterolemia [facility] Office Visit On: 13-May-2015 7:13 Encounter Reason: Edema - The onset of the edema has been sudden and has been occurring in a persistent pattern for 2 days. The course has been constant. The edema is described as being located in the right lower extremi End: 13-May-2015 15:01 ty and the abdomen. The symptoms have been associated with ascites and fatigue.Encounter Diagnosis: Vitamin D deficiency (268.9), Right leg swelling, Prediabetes, Parkinson disease (332.0), Polyarthropathy (Renamed from Inflammation of multiple joints), Breast cancer (174.9), Tremor (781.0), Smoking addiction (305.1), Osteoarthritis, Hypertension, benign, Abdominal swelling [facility] Office Visit On: 01-Mar-2015 10:19 Encounter Reason: Follow up for chronic medical issues - The patient feels well with no complaints, has decreased energy level and is sleeping poorly. Patient has been compliant with instructions. Current medication use: End: 01-Mar-2015 11:03 no side effects, compliant with dosing regimen and considered effective by patient. Patient sleeps 6 hours per night. Nutrition: balanced diet (attempted). The medical issues the patient is following u p for include All identified problems below, COPD, high blood pressure, high cholesterol, osteoarthritis and other (Br CA, MCTD, LUPUS).Encounter Diagnosis: Hyperglycemia (790.29), Hypertension, benign, Breast cancer (174.9), Parkinson disease (332.0), Polyarthropathy (Renamed from Inflammation of multiple joints), Osteoarthritis, Tremor (781.0), Hypercholesterolemia, Vitamin D deficiency (268.9) [facility] Annotation/Addendum On: 24-Nov-2014 12:23 Encounter Diagnosis: Vitamin D deficiency (268.9) End: 24-Nov-2014 12:40 [facility] Office Visit On: 23-Nov-2014 9:59 Encounter Reason: Follow up for chronic medical issues - The patient feels well with minor complaints, has decreased energy level and is sleeping poorly. Patient has been compliant with instructions. Current medication u End: 23-Nov-2014 10:50 se: no side effects, compliant with dosing regimen and considered effective by patient. Patient sleeps 6 hours per night. Nutrition: balanced diet (attempted). The medical issues the patient is followin g up for include All identified problems below, COPD, high blood pressure, high cholesterol, osteoarthritis and other (Br CA, MCTD, LUPUS).Encounter Diagnosis: Knee pain, right, COPD (chronic obstructive pulmonary disease) (496), Polyarthropathy (Renamed from Inflammation of multiple joints), Urinary incontinence (788.30), Hypertension,benign(401.1), Hypercholesterolemia (272.0), Tremor (781.0), Breast cancer (174.9), Parkinson disease (332.0), Vitamin D deficiency (268.9) [facility] Office Visit On: 03-Sep-2014 7:41 Encounter Reason: Skin Lesions - The last clinic visit was 7 day(s) ago (7). Lesion(s) are located on the left leg. The patient describes the lesion(s) as draining, painful, pink and red. Onset was sudden 4 day(s) ago. T End: 03-Sep-2014 9:52 he symptoms occur constantly. The patient describes this as improving. Symptoms are exacerbated by friction. Past evaluation has included bacterial culture and viral culture. Past treatment has included topical antibiotics (IV atb vanc). Encounter Diagnosis: MRSA (methicillin resistant Staphylococcus aureus) [facility] Office Visit On: 27-Aug-2014 8:36 Encounter Reason: Skin Lesions - The last clinic visit was 7 day(s) ago (7). Symptoms include single skin lesion. Lesion(s) are located on the left leg. The patient describes the lesion(s) as draining, painful, pink and End: 27-Aug-2014 9:29 red. Onset was sudden 4 day(s) ago. The symptoms occur constantly. The patient describes this as improving. Symptoms are exacerbated by friction. Past evaluation has included bacterial culture and viral culture. Past treatment has included topical antibiotics (IV atb vanc).Encounter Diagnosis: MRSA (methicillin resistant Staphylococcus aureus) [facility] Annotation/Addendum On: 25-Aug-2014 9:20 Encounter Diagnosis: MRSA (methicillin resistant Staphylococcus aureus) End: 25-Aug-2014 11:03 [facility] Office Visit On: 24-Aug-2014 9:02 Encounter Reason: Follow up Meds - The patient feels well with minor complaints (spot on left leg wants looked at). Patient has been compliant with instructions. Current medication use: no side effects. Patient sleeps 6 End: 24-Aug-2014 9:49 (broken sleep) hours per night. Impact of disease: no overall impact. Nutrition: inappropriate diet., [ADDITIONAL REASON] Skin Lesions - The last clinic visit was 4 day(s) ago. Symptoms include single s kin lesion. Lesion(s) are located on the left leg. The patient describes the lesion(s) as draining, painful, pink and red. Onset was sudden 4 day(s) ago. The symptoms occur constantly. The patient descr ibes this as unchanged. Symptoms are exacerbated by friction. Presentation included erythema and pain. Encounter Diagnosis: Cellulitis, Hypertension,benign(401.1), Lupus (710.0), Polyarthropathy (Renamed from Inflammation of multiple joints), Hypercholesterolemia (272.0), COPD (chronic obstructive pulmonary disease) (496) [facility] Office Visit On: 27-Jul-2014 8:18 Encounter Reason: Follow up acute care visit - The patient feels the same. The medical issues the patient is following up for include All identified problems below and other (knee pain ).Encounter Diagnosis: Knee pain, right End: 27-Jul-2014 9:07 [facility] Office Visit On: 14-Jul-2014 9:22 Encounter Reason: Knee Pain - This condition occurred without any known injury. Symptoms include knee pain and swelling, while symptoms do not include stiffness, decreased range of motion, locking, instability or difficu End: 14-Jul-2014 10:32 lty bearing weight. Symptoms are located in the right knee. Onset was month(s) ago. The symptoms occur constantly. The patient is not currently being treated for this problem.Encounter Diagnosis: Knee pain, right [facility] Annotation/Addendum On: 01-Mar-2014 8:43 Encounter Diagnosis: MRSA (methicillin resistant Staphylococcus aureus) End: 01-Mar-2014 17:27 [facility] Office Visit On: 24-Feb-2014 8:23 Encounter Reason: Skin Problems - The onset of the skin problems has been sudden and they have been occurring in a persistent pattern for 5 days. The course has been increasing. The problem is characterized as infection End: 24-Feb-2014 14:26 and a change in skin color. Lesions are described as red. There has been associated pain.Encounter Diagnosis: Cellulitis, Lupus (710.0), Parkinson disease (332.0), Breast cancer (174.9) [facility] Office Visit On: 22-Dec-2013 9:11 Encounter Reason: hyperkalemiaEncounter Diagnosis: Hyperkalemia End: 22-Dec-2013 10:18 [facility] Lab Order On: 21-Dec-2013 9:58 Encounter Diagnosis: Connective tissue disease (710.9) End: 21-Dec-2013 10:01 [facility] Annotation/Addendum On: 20-Jul-2013 11:34 Encounter Diagnosis: Unspecified Diagnosis End: 20-Jul-2013 11:52 [facility] Lab Order On: 17-Jul-2013 8:59 Encounter Diagnosis: Hypertension,benign(401.1), Lupus (710.0), Vitamin D deficiency (268.9), Tremor (781.0) End: 17-Jul-2013 9:14 [facility] Phone Encounter On: 03-Feb-2013 11:03 Encounter Diagnosis: Unspecified Diagnosis End: 03-Feb-2013 11:43 [facility] Office Visit On: 30-Dec-2012 10:05 Encounter Reason: Follow up Hypertension - The symptoms have been associated with anxiety (D/T Br Ca, and Lupus ), family history of hypertension and use of steroids (prednisone- PRN). blood pressure range : (146/98, ).Encounter Diagnosis: End: 24-Sep-2013 10:45 Parkinson disease (332.0), Lupus (710.0), NEED FOR PROPHYLACTIC VACCINATION AND INOCULATION AGAINST INFLUENZA (V04.81) [facility] Office Visit On: 18-Nov-2012 10:51 Encounter Reason: Follow up Hypertension - The symptoms have been associated with anxiety, family history of hypertension, obesity and use of steroids. blood pressure range : (182/70, 174/83, 151/74, 150/77, 147/71, 128/72).Encounter Diagnosis: End: 18-Nov-2012 11:51 Polyarthropathy (716.50), Flat foot (734), Osteoarthritis (715.90), Vitamin D deficiency (268.9), H/O lumpectomy (V45.89), Hyperglycemia (790.29), Hypertension,benign(401.1), Swelling (782.3), Smoking addiction (305.1) [facility] Office Visit On: 21-Oct-2012 8:52 Encounter Reason: Follow up for chronic medical issues - The patient feels well with minor complaints, has decreased energy level and is sleeping poorly. Patient has been compliant with instructions. Current medication u End: 21-Oct-2012 10:33 se: no side effects, compliant with dosing regimen and considered effective by patient. Patient sleeps 6 hours per night. Nutrition: balanced diet (attempted). The medical issues the patient is followin g up for include All identified problems below, COPD, high blood pressure, high cholesterol, osteoarthritis and other (Br CA, MCTD, LUPUS).Encounter Diagnosis: UTI (lower urinary tract infection) (599.0), Breast cancer (174.9), Tremor (781.0), Vitamin D deficiency (268.9), Back pain (724.5), Hypercholesterolemia (272.0), Osteoarthritis (715.96), Hypertension,benign(401.1), Urinary incontinence (788.30), COPD (chronic obstructive pulmonary disease) (496), Lupus (710.0) [facility] Payers Kelton Malave; a guarantor
--- OUTSIDE RECORDS SUMMARY | 2018-07-02 03:36 | XMS RPT_ITS | Continuity of Care Document ---
:1950 Author Organization [facility] Address [facility] [place] [address] Phone Care Team Providers Name Role Phone Zane SALLYSandra E Unavailable Thomas Short Unavailable Derek Mcgee Unavailable Dr. Bing Cheung MD Unavailable Nancy Marcial Unavailable Unavailable Nai Trevizo LPN Unavailable Unavailable Christel Pantoja Unavailable Unavailable Unavailable Unavailable Problems Name Dates Details Abnormal CT of the chest (R93.89, 793.2) Status: Active Abnormal glucose tolerance test (GTT) (R73.09, 790.22) Status: Active Arthralgia (M25.50, 719.40) Comments: back and knees take tramadol Status: Active Back pain (Renamed from Back ache) (M54.9, 724.5) Comments: mild DDD,[facility] Status: Active BMI 40.0-44.9, adult (Z68.41, V85.41) Status: Active BMI 40.0-44.9, adult (Z68.41, V85.41) Status: Active BMI 40.0-44.9, adult (Z68.41, V85.41) Status: Active Breast cancer (C50.919, 174.9) Comments: lumpectomy and lymph node dissection seeing OPERATION AGENT Farzaneh Medina on anastrazole, saw Scot in past, now seeing Mykel has lung nodule CT to be repeated Aug or Sept Status: Active 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, 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) Comments: sees Mykel , will get his note Status: Active Connective tissue disease (M35.9, 710.9) Status: Active COPD (chronic obstructive pulmonary disease) (J44.9, 496) Comments: uncontrolledwith emphysemous changes not using spiriva, because insurance wont cover, on Besvepi Status: Active Cough (R05, 786.2) Comments: chronic [...] Comments: left breast, radiation in 4 weeks, seealbert Lang Status: Active Hidradenitis suppurativa (L73.2, 705.83) Comments: groin, will treat with topicol clindamycin 1% bid Status: Active Hypercholesterolemia (E78.00, 272.0) Comments: stable on simvastatin Status: Active Hyperglycemia (R73.9, 790.29) Comments: prediabetes A1c 6.2, at one time, now 5.8, will have her modify diet less sugar and carbs and monitor Status: Active Hypertension (I10, 401.9) Comments: increase in BP 220/101, restarted propranolol on 12-17-17 on hctz now adding amlodipine Status: Active Hypertension, benign (I10, 401.1) Comments: she is monitoring at home, stable on hydrochlorathiazide, taking lasix with wt gainwas on lisinopril but K problem Status: Active Immunocompromised (D84.9, 279.3) Comments: on plaquenil Status: Active Knee pain, right (M25.561, 719.46) Comments: uses tramadol, refused PT now going for water aerobics on occation add knee brace for stablizaiton will send to [facility], going to [facility]. 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 Bing Cheung Status: Active Prediabetes (R73.03, 790.29) Status: Active Right leg swelling (M79.89, 729.81) Comments: short term lasix Status: Active Smoker (F17.200, 305.1) Comments: with emphysema Status: Active Smoking addiction (F17.200, 305.1) Status: Active SOB (shortness of breath) (R06.02, 786.05) Comments: has seen Sibilia in the past worsening of SOB Status: Active Swelling of right knee joint (M25.461, 719.06) Status: Active Tremor (R25.1, 781.0) Comments: essential vs other proproanolol 40mg bid continue decreased to once a day now will DC it since on [id number] ago started tremor,improvement with propraololwas using cane [...] 112.1) Status: Active Medications Name Dates Details AmLODIPine Besylate 2.5 MG Oral Tablet 1 (one) Tablet daily as directed for 0 days Quantity: 90 {Tablet} Refills: 3 Ordered:14-Apr-2018 Mireyagilmerpadmaja ZAVALA, Sandra Tamayo CNP Sandra Lockwood Start : 14-Apr-2018 Active Bevespi Aerosphere 9-4.8 MCG/ACT Inhalation Aerosol 2 (two) Puff bid for 30 days Quantity: 2 {Inhaler} Refills: 3 Ordered:23-Sep-2017 Zane ZAVALA, Sandra Tamayo CNP Sandra Lockwood Start : 23-Sep-2017 Active Comments:L Biotin 1000 MCG Oral Tablet 1 qd (1000 MCG) Active Calcium with Vitamin D 600 mg 1 tablet daily Active Carbidopa-Levodopa 25-100 MG Oral Tablet 3 (three) Tablet daily for 90 days Refills: 0 Ordered:14-May-2017 Zane [employer], Sandra Tamayo CNP, Sandra Lockwood Start : 14-May-2017 Active Comments:Dr Ahumada but cant get to office, will give one month supply but need to see Zita HydroCHLOROthiazide 12.5 MG Oral Tablet 2 (two) Tablet daily for 0 days Quantity: 60 {Tablet} Refills: 6 Ordered:25-Dec-2017 Zane [employer], Sandra Tamayo CNP Sandra Lockwood Start : 25-Dec-2017 Active Lasix 20 MG [...] Quantity: 14 {Tablet} Refills: 0 Ordered:01-Mar-2014 Zane ZAVAAL, Sandra Munguia CNP Start : 01-Mar-2014 End [...] days Quantity: 14 {Capsule} Refills: 0 Ordered:13-Jul-2016 Sandra Mark CNP, CNP, Mary E Start : 13-Jul-2016 End : 20-Jul-2016 Inactive Cipro 500 MG Oral Tablet 1 (one) Tablet bid for 7 days Quantity: 14 {QS} Refills: 0 Ordered:14-May-2017 Sandra Mark CNP, CNP, Mary E Start : 08-May-2017 End : 14-May-2017 Inactive Clindamycin Phosphate 1 % External Solution 1 (one) Application Application bid for 0 days Quantity: 1 {Bottle} Refills: 0 Ordered:17-Dec-2017 Irish Love LPN Start : 14-May-2017 End : 17-Dec-2017 Inactive Diflucan 150 MG Oral Tablet 1 (one) Tablet PO Daily Q 72 h x 2 doses for 0 days Quantity: 2 {Tablet} Refills: 1 Ordered:14-Apr-2018 Sandra Mark CNP, CNP, Mary E Start : 25-Dec-2017 End : 14-Apr-2018 Inactive Furosemide 20 MG Oral Tablet 1 (one) Tablet daily x 2 days for 0 days Quantity: 15 {Tablet} Refills: 0 Ordered:14-Apr-2018 Sandra Mark CNP, CNP, Mary E Start : 10-Feb-2018 End : 14-Apr-2018 Inactive PredniSONE 10 MG Oral Tablet 1 (one) Tablet one daiy prn for lupus flare for 30 days Quantity: 30 {Tablet} Refills: 0 Ordered:06-Sep-2017 Sandra Mark CNP, CNP, Mary E Start : 06-Sep-2017 End : 06-Oct-2017 Inactive Symbicort 160-4.5 MCG/ACT Inhalation Aerosol 2 (two) Puff Puff bid for 0 days Quantity: 3 {Puff} Refills: 0 Ordered:04-Sep-2016 Sandra Mark CNP, CNP, Mary E Start : 04-Sep-2016 End : 04-Sep-2016 Inactive Tamiflu 75 MG Oral Capsule 1 (one) Capsule Capsule bid for 5 days Quantity: 10 {Capsule} Refills: 0 Ordered:11-Jul-2016 Sandra Mark CNP, CNP, Mary E Start : 09-Jul-2016 End : 14-Jul-2016 Inactive Tessalon Perles 100 MG Oral Capsule 1 (one) Capsule tid prn cough for 10 days Quantity: 30 {Capsule} Refills: 0 Ordered:10-Mar-2018 Zane ZAVALA, Sandra Tamayo CNP, Sandra Lockwood Start : 10-Mar-2018 End : 20-Mar-2018 Inactive TOPICORT, 0.25% (External Cream) 1 (one) Cream Cream bid for 0 days Quantity: 1 {Tube} Refills: 0 Ordered:10-Sep-2015 CAPRI Manning Start : 23-Aug-2015 End : 10-Sep-2015 Inactive Comments:Large tube twice daily x 2 weeks for body TraMADol HCl 50 MG Oral Tablet 1 Tablet three times daily, as needed for 30 days Quantity: 120 {Tablet} Refills: 0 Ordered:22-Jul-2017 Zane ZAVALA, Sandra Tamayo CNP, Sandra Lockwood Start : 22-Jul-2017 End : 21-Aug-2017 Inactive Comments:Medication taken as needed. one hundred twenty Polyarthropathy M13.0Oarrs run Anastrozole 1 MG Oral Tablet 1 (one) Tablet daily for 360 days Refills: 0 Ordered:14-Apr-2018 Nancy Marcial Start : 01-Jan-2017 End : 14-Apr-2018 Discontinued Comments:Dr Villareal ASPIR-81, 81MG (Oral Tablet Delayed Release) 1 [...] : 21-Oct-2012 End : 24-Feb-2014 Discontinued Ergocalciferol 27506 UNIT Oral Capsule 1 Capsule twice weekly [...] days Quantity: 60 {Tablet} Refills: 3 Ordered:23-Aug-2015 Nai Trevizo LPN Start : 21-Oct-2012 End : 23-Aug-2015 Discontinued METHOTREXATE, 2.5MG (Oral Tablet) 1 (one) Tablet 8 tab once a week for 360 days Refills: 0 Ordered:24-May-2015 Nai Trevizo LPN Start : 14-Jul-2014 End : 24-May-2015 Discontinued Comments:Dr epperson MUPIROCIN, 2% (External Ointment) 1 (one) Ointment Ointment daily for 0 days Quantity: 1 {Tube} Refills: 0 Ordered:03-Sep-2014 Nai Trevizo LPN Start : 25-Aug-2014 End : 03-Sep-2014 Discontinued Comments:Apply small amt to end of Qtip apply to each nares, umbilicus, and rectum daily x 5 days PredniSONE 10 MG Oral Tablet 1 Tablet 1bid x 3 days 1 daily x 3 days 1/2 x 3 days for 0 days Quantity: 12 {Tablet} Refills: 0 Ordered:01-Jan-2017 Nai Trevizo LPN Start : 29-Oct-2016 End : 01-Jan-2017 Discontinued [...] days Quantity: 120 {Tablet} Refills: 3 Ordered:01-Jun-2016 Nai Trevizo LPN Start : 30-Dec-2012 End : 01-Jun-2016 Discontinued [...] on bactrim[facility] left inner thigh had bactrim and cefdinir then, around Feb 2015 Status: Inactive as of 10-Sep-2015 Osteoarthritis (M19.90, 715.90) Status: Inactive as of 10-Sep-2015 Positive MIMI (antinuclear antibody) (R76.8, 795.79) Comments: dana Paul on plaquinelhas pos MIMI Status: Inactive as of [...] Dr Ellison Salpingectomy; Unilateral 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 of the chest. PET scan normal. Breast cancer 5 years ago with left lumpectomy. RADIATION DOSAGE (If Supplied By Facility): CTDIvol = ( 20.15 ) mGy, DLP = ( 770.34 ) mGycm TECHNIQUE: Transaxial imaging was performed without the administration of intravenous contrast material. Individualized dose optimization techniques were used for this C T. COMPARISON: CT chest August 09, 2016. CT chest September 23, 2017. CT chest December 16, 2012. PET CT scan October 07, 2017. FINDINGS: Noncalcified mildly lobulated right mi ddle lobe lung nodule measuring 1.5 x 1.3 cm, using lung windows, on the present scan, 1.2 x 1.1 cm on the study of September 2017 and only 0.7 x 0.6 cm on the study of August 2016. A nodule was not present on the study of December 16, 2012. Diffuse emphysematous changes. The heart is not enlarged. Coronary artery calcifications. No pericardial effusion. Scattered subcentimeter mediastinal lymph nodes whi ch are not pathologic by size criteria. Normal hilar regions. Normal unenhanced pulmonary arteries. There is atherosclerotic calcification of the thoracic aorta. Normal osseous structures. There is no demonstrated abnormality of the visualized upper abdomen. CT/Chest without Contrast IMPRESSION: Continued increase in the size of a noncalcified right middle lobe lung nodule. No evidence of malignancy on recent PET CT scan. Recommend pulmonary consult. Emphysematous changes. Coronary artery calcifications. Electronically Signed: Dayday baron MD at 2:50 EST , Service support , CC: Sandra Mark NP; Guido Hogue MD Ecclesiastical Worker: Signed 23-Jan-2018 Oncology Visit Report Result: Comments: See Note; NOTES: [facility] Oncology [address] [place] [address] OFFICE VISIT Date of Service: 01/23/18 1611 MR#: [id number] Acct: [id number] Name: TISH HULL #: [id number] : 1950 From: Guido Hogue MD Age/Sex: 67/F Location: OMD Status: Signed Subjective - Date of Service Date of Service:: 01/23/18 - Chief Complaint F/u for Left Breast cancer. - History of Present Illness Ms. Tish Hull is a 66-year-old woman with a past [...] uninvolved. Biology proved ER positi ve (95%) MS positive (5%) and HER2-griffin nonamplified by FISH. [...] Medication Instructions Recorded Primary Care Provider: Sandra Mark Referring Provider: Deandra Ellison - Problem List (1) Pulmonary nodules/lesions, multiple Status: Chronic (2) History of left breast cancer Status: Chronic Code Visi t Office Visits / Consults: 64431 OV L4 Est 01/23/18 1620 <Electronically signed by Guido Hogue MD> Date Guido Hogue MD Cosigner Sig nature: Date (if applicable) CC: 17-Dec-2017 Knee 4 or More Views Result: Comments: See Note; NOTES: [facility] Imaging Services [address] [place] [address] Knee 4 or More Views MR#: [id number] Acct: [id number] Name: TISH HULL Rep #: [id number] : 1950 F 67 From: Fer Amos MD PCP: Sandra Mark NP Status: REG CLI Study: Knee 4 or More Views Date of Exam: 12/17/17 Exam# [id number] Ordering Dr: Lynda Suazo STUDY: X-RAY - [...] EDT , Service support , CC: Sandra Mark NP; OPERATION AGENT-C Lynda Suazo Ecclesiastical Worker: Signed 18-Nov-2017 SCREENING MAMM (CAD), BILAT Result: Comments: See Note; NOTES: [facility] Imaging Services [address] [place] [address] SCREENING MAMM (CAD), BILAT MR#: [id number] Acct: [id number] Name: TISH HULL Rep #: [id number] : 1950 F 67 From: Xu Adams MD PCP: Sandra Mark NP Status: PRE CLI Study: SCREENING MAMM (CAD), BILAT Date of Exam: 11/18/17 Exam# [id number] Ordering Dr: Guido Hogue MD MAMM OGRAPHY [...] delay biopsy of a clinically suspicious abnormality. [id number] Electronically Signed: Xu Adams MD at 15:22 EDT Tel [phone], Service support , Fa x [phone] CC: Sandra Mark NP; Guido Hogue MD Ecclesiastical Worker: Signed 05-Oct-2017 PET/CT Tumor Base -Thigh Init Result: Comments: See Note; NOTES: [facility] Imaging Services [address] [place] [address] PET/CT Tumor Base -Thigh Init MR#: [id number] Acct: [id number] Name: TISH HULL Rep #: [id number] : 1950 F 66 From: Hossein Oneill DO PCP: Sandra Mark NP Status: REG CLI Study: PET/CT Tumor Base -Thigh Init Date of Exam: 10/07/17 Exam# [id number] Ordering Dr: Sandra Mark EXAMINATI ON: FDG PET/CT INDICATIONS: A 66-year-old female [...] the axial skeletal structures. ORDER # : [id number] PET/PET/CT Tumor Base -Thigh Init IMPRESSION: 1. [...] Tel , Service support , CC: Sandra Mark NP Ecclesiastical Worker: Signed 23-Sep-2017 Chest WITH Contrast Result: Comments: See Note; NOTES: [facility] Imaging Services [address] [place] [address] Chest WITH Contrast MR#: [id number] Acct: [id number] Name: TISH HULL Rep #: [id number] D OB: 1950 F 66 From: Vasu Wright MD PCP: Sandra Mark NP Status: REG CLI Study: Chest WITH Contrast Date of Exam: 09/23/17 Exam# [id number] Ordering Dr: Sandra Mark STUDY: CT CHEST WITH CONTRAST REASON FOR [...] not require a verbal consultation. Electronically Signed: Vasuzayra Wright, at 1:31 EDT Tel , Service support , N.B. : Tre Naidu, confirmed on 09/24/2017 22:27:32 (ET) that the referring physician received the results and did not require a verbal consultatio n. CC: Sandra Mark NP Ecclesiastical Worker: Signed 17-Jul-2017 Oncology Visit Report Result: Comments: See Note; NOTES: [facility] Oncology [address] [place] [address]. [place] [address] OFFICE VISIT Date of Service: 07/17/17 1446 MR#: [id number] Acct: [id number] Name: TISH HULL ep #: [id number] : 1950 From: Guido Hogue MD Age/Sex: 66/F Location: OMD Status: Signed Subjective - Chief Complaint F/u for Left Breast cancer. - History of Present Illness Ms. Tish Hull is a 66-year-old woman with a past [...] were uninvolved. Biology proved ER positive (95%) MS positive (5%) and HER2-griffin nonampl ified by [...] #90 tab 07/17/17 Primary Care Provider: Sandra Mark Referring Provider: Deandra Ellison - Problem List [...] Chronic Code Visit Office Visits / Consults: 65038 OV L4 Est 07/17/17 1511 <Electronically signed by Guido Hurtado D> Date Guido Hogue MD Cosigner Signature: Date (if applicable) CC: 16-Nov-2016 Breast Limited Unilateral Result: Comments: See Note; NOTES: [facility] Imaging Services [address] [place] [address] Breast Limited Unilateral MR#: [id number] Acct: [id number] Name: TISH HULL Rep #: [id number] : 1950 F 66 From: Xu Adams MD PCP: Sandra Mark Status: REG CLI Study: Breast Limited Unilateral Date of Exam: 11/16/16 Exam# [id number] Ordering Dr: Maeve Tarango STUDY: ULTR ASOUND [...] Xu Adams MD at 15:16 EDT Tel [phone], Service support , CC: Sandra Mark; Maeve Tarango Ecclesiastical Worker: Signed 16-Nov-2016 DIAG MAMM W/CAD, UNILAT Result: Comments: See Note; NOTES: [facility] Imaging Services [address] [place] [address] DIAG MAMM W/CAD, UNILAT MR#: [id number] Acct: [id number] Name: TISH HULL Rep #: [id number] : 1950 F 66 From: Xu Adams MD PCP: Sandra Mark Status: REG CLI Study: DIAG MAMM W/CAD, UNILAT Date of Exam: 11/16/16 Exam# [id number] Ordering Dr: Maeve Tarango MAMMOGRAPHY - U [...] no significant change since the prior study. BI/DIAG MAMM W/CAD, UNILAT IMPRESSION: Stable unilateral diagnostic [...] Xu Adams MD at 15:24 EDT Tel [phone], Service supp ort , CC: Sandra Mark; Maeve Tarango Ecclesiastical Worker: Signed 09-Aug-2016 Chest WITH Contrast Result: Comments: See Note; NOTES: [facility] Imaging Services [address] [place] [address] [facility] 4d Chest WITH Contrast MR#: [id number] Acct: [id number] Name: TISH HULL Rep #: [id number] : 1950 F 65 From: Mario Horton MD PCP: Sandra Mark Status: REG CLI Study: Chest WITH Contrast Date of Exam: 08/09/16 Exam# [id number] Ordering Dr: Jean Carlos Clarke MD STUDY: [...] centrilobular emphysema. Numerous nodules as specified a ezequiel, stable. Recommend repeat CT in 6 months. Electronically Signed: Mario Horton MD at 14:22 EDT , Service support , CC: Sandra sims; Jean Carlos Clarke MD Ecclesiastical Worker: Signed 09-Jul-2016 Chest PA and Lateral Result: Comments: See Note; NOTES: [facility] Imaging Services [address] [place] [address] [facility] 4d Chest PA and Lateral MR#: [id number] Acct: [id number] Name: TISH HULL Rep #: [id number] : 1950 F 65 From: Xu Adams MD PCP: Sandra Mark Status: REG CLI Study: Chest PA and Lateral Date of Exam: 07/09/16 Exam# [id number] Ordering Dr: Sandra Mark STUDY: X-RAY C HEST REASON FOR EXAM: [...] Xu Adams MD at 13:03 EDT Tel [phone], Service support [phone], CC: Sandra Mark Ecclesiastical Worker: Signed 07-Jun-2016 SCREENING MAMM (CAD), BILAT Result: Comments: See Note; NOTES: [facility] Imaging Services [address] [place] [address] [facility] 4d SCREENING MAMM (CAD), BILAT MR#: [id number] Acct: [id number] Name: TISH HULL Rep #: [id number] : 1950 F 65 From: Xu Adams MD PCP: Sandra Mark Status: REG CLI Study: SCREENING MAMM (CAD), BILAT Date of Exam: 06/07/16 Exam# [id number] Ordering Dr: Rona Tarango MAMMOGRAPHY - BILATERAL [...] delay biopsy of a clinically suspicious abnormality. [id number] Electronically Signed: Xu Adams MD at 8:17 EST Tel [phone], Service support [phone], CC: Sandra Mark; Maeve Tarango Ecclesiastical Worker: Signed 30-Apr-2016 Chest without Contrast Result: Comments: See Note; NOTES: [facility] Imaging Services [address] [place] [address] [facility] 4d Chest without Contrast MR#: [id number] Acct: [id number] Name: TISH HULL Rep #: [id number] : 1950 F 65 From: Lex Mosley MD PCP: Sandra Mark Status: REG CLI Study: Chest without Contrast Date of Exam: 04/30/16 Exam# [id number] Ordering Dr: Jean Carlos Clarke MD [facility] DY: CT CHEST WITHOUT CONTRAST REASON FOR [...] at 7:24 EST , Service support [phone], CC: Sandra Mark; Jean Carlos Clarke MD Ecclesiastical Worker: Signed 12-Oct-2015 Dexa Bone Density Study (HP) Result: Comments: See Note; NOTES: [facility] Imaging [address] [address] [facility] 4d Dexa Bone Density Study () MR#: [id number] Acct: [id number] Name : TISH HULL Rep #: [id number] : 1950 F 64 From: Xu Adams MD PCP: Sandra Mark Status: REG CLI Study: Dexa Bone Density Study () Date of Exam: 10/12/15 Exam# [id number] Ordering Dr: Trae Owen MD STUDY: DUAL [...] Xu Adams MD at 13:05 EDT Tel [phone], Service support [phone], CC: Sandra Mark; Trae Owen Ecclesiastical Worker: Signed 26-May-2015 Bilat Diag Digital AND CAD Result: Comments: See Note; NOTES: [facility] Imaging Services [address] [place] [address] [facility] 4d Bilat Diag Digital AND CAD MR#: [id number] Acct: [id number] Name: TISH HULL Rep #: [id number] : 1950 F 64 From: Xu Adams MD PCP: Sandra Mark Status: REG CLI Study: Bilat Diag Digital AND CAD Date of Exam: 05/26/15 Exam# [id number] Ordering Dr: Deandra Ellison MD MAMMOGRAPHY - [...] Xu Adams MD at 9:06 EST Tel [phone], Service support [phone], CC: Sandra Mark; Deandra Ellison MD Ecclesiastical Worker: Signed 17-May-2015 Abdomen Complete Result: Comments: See Note; NOTES: [facility] Imaging Services [address] [place] [address] [facility] 4d Abdomen Complete MR#: [id number] Acct: [id number] Name: HULLTISH L Rep #: [id number] : 1950 F 64 From: Jaclyn Rojas MD PCP: Sandra Mark Status: REG CLI Study: Abdomen Complete Date of Exam: 05/17/15 Exam# [id number] Ordering Dr: Sandra Mark STUDY: A BDOMINAL ULTRASOUND REASON FOR EXAM: [...] at 14:26 EST Tel , Service support [phone], CC: Sandra Mark Ecclesiastical Worker: Signed 14-Oct-2014 History and Physical Exam Result: Comments: See Note; NOTES: [facility] Medical Records Department [address] [place] [address] History and Physical 10/14/14 1021 MR#: [id number] Acct: [id number] Name: TISH HULL Rep #: [id number] : 1950 64 From: Deandra Ellison MD PCP: Sandra Mark Status: REG CLI Y Location: [facility] History and Physical - Blank Date of [...] pain. Denies nipple discharge. Left breast mammogram 10/01/14 - architectural distortion at the lumpectomy si te Left breast US - 10/01/14 - 2.1 cm x 1.8 cm solid cystic area at the 12:00 position 3 cm from the nipple, corresponds to operative site, margins are ill defined, BRADRonny 4 Past Medical History: H /O stage I breast cancer - T1 (0.4 cm with DCIS comedo that is 1cm) N0 (3 SLN negative) ER 95% MS 5%, Her2-negative Hypertension Asthma/COPD Past Surgical History: Left breast lumpectomy and se ntinel lymph node biopsy November 12, 2012 Removal of stomach tumor? 2-3 years ago Right ankle fracture repair Cholecystetomy 's Tubes tied Past injuries: denies history of [...] Hx of NEOPLASM, MALIGNANT, BREAST, CENTRAL (ICD-174.1) (KGH09-T53.119) See below. Problem # 2: Other (abnormal) findings on radiological examination of breast (ICD-793.89) ( DAL64-W64.8) I have discussed above with the patient [...] MD> Date Deandra Ellison MD CC: Sandra Mark; Deandra Ellison MD Signed 12-Oct-2014 Operative Report Result: Comments: See Note; NOTES: [facility] Medical Records Department [address] [place] [address] Operative Report 10/12/14 1154 MR#: [id number] Acct: [id number] Name: TISH HULL Rep #: [id number] : 1950 63 From: Deandra Ellison MD PCP: Sandra Mark Status: REG CLI Y Location: [facility] Report of Operation Date of Procedure: 10/12/14 [...] MD> Date Deandra Ellison MD CC: Sandra Mark; Deandra Ellison MD; Sandra Mark Signed 12-Oct-2014 US Breast Biopsy 1st Lesion Result: Comments: See Note; NOTES: [facility] Imaging Services [address] [place] [address] Ultrasound Report MR#: [id number] Acct: [id number] Name: TISH HULL Rep #: [id number] : 1950 F 63 From: Xu Adams MD PCP: Sandra Mark Status: REG CLI Study: US Breast Biopsy 1st Lesion Date of Exam: 10/12/14 Exam# [id number] Ordering Dr: Deandra Ellison MD STUDY : [...] Xu Adams MD at 10:43 EDT Tel [phone], Service support [phone], CC: Sandra Mark; Deandra Ellison MD Ecclesiastical Worker: Signed 01-Oct-2014 Breast Limited Unilateral Result: Comments: See Note; NOTES: [facility] Imaging Services [address] [place] [address] Ultrasound Report MR#: [id number] Acct: [id number] Name: TISH HULL Rep #: [id number] : 1950 F 63 From: Xu Adams MD PCP: Sandra Mark Status: REG CLI Study: Breast Limited Unilateral Date of Exam: 10/01/14 Exam# [id number] Ordering Dr: Trae Owen MD STUDY : [...] Xu Adams MD at 14:52 EDT Tel [phone], Service support [phone], CC: Sandra Owen Ecclesiastical Worker: Signed 01-Oct-2014 Unilat Lt Diag Digital AND CAD Result: Comments: See Note; NOTES: [facility] Imaging Services [address] [place] [address] Breast Imaging Report MR#: [id number] Acct: [id number] Name: TISH HULL Rep #: [id number] : 1950 F 63 From: Xu Adams MD PCP: Sandra Mark Status: REG CLI Study: Unilat Lt Diag Digital AND CAD Date of Exam: 10/01/14 Exam# [id number] Ordering Dr: Trae Owen MD MAMMOGRAPHY - [...] Xu Adams MD at 14:29 EDT Tel [phone], Service support [phone], CC: Sandra Mark; Trae Owen Ecclesiastical Worker: Signed 07-Sep-2014 PT Discharge Summary Result: Comments: See Note; NOTES: [facility] [address] [place] [address]. [address] [place], [place] [address] Fax REHABILITATION SERVICES DISCHARGE SUMMARY MR#: [id number] Acct: [id number] Name: TISH HULL Rep #: [id number] : 1950 63 From: Ainsley Ingram Referring DrJanet: Sandra Mark Status: PRE RCR Eval Date: Discharge Da te: DATE OF SERVICE: Date of initial evaluation is July 20, 2014. The patient attended physical therapy for initial evaluation and has not returned since. PT feels it is appropriate she be dis charged from [facility] Physical Therapy. Ainsley Ingram DPT T: CHAPIN JOB: [id number] <Electronically signed by Ainsley Ingram > 09/07/14 1459 CC: Signed 20-Jul-2014 Inital Evaluation - PT Result: Comments: See Note; NOTES: [facility] Physical Therapy [facility] [address] [facility] [place], [place] [address] Fax REHABILITATION SERVICES INITIAL EVALUATION MR#: [id number] Acct: [id number] Name: TISH HULL Rep #: [id number] : 1950 63 From: Ainsley Ingram Referring DrJanet: Sandra Mark Status: REG RCR Insurance: [employer] [place] Eval Date: DATE OF SERVICE: 07/20/2014 Tish Hull is a 63-year-old female referred to physical therapy by Sandra Mark with medical diagnosis of right knee pain. SUBJECTIVE: The pat ient reports her knee has been swelling for approximately 4 weeks. She did not have any pain with it until she went and saw Sandra Mark, who poked around on knee. She reports [...] pain. Ainsley Ingram DPT T: CHAPIN JOB: [id number] <Electronically signed by Ainsley Ingram > 5 1632 CC: Signed For Medicare only, by signing this I certify the plan of care. Physicians Signature Date 14-Jul-2014 Knee 4 or More Views Result: Comments: See Note; NOTES: [facility] Imaging Services [address] [facility] [place] [address] Radiology Report MR#: [id number] Acct: [id number] Name: TISH HULL Joshua Rep #: [id number] : 1950 F 63 From: Nasir Rodriguez DO PCP: Sandra Mark Status: REG CLI Study: Knee 4 or More Views Date of Exam: 07/14/14 Exam# [id number] Ordering Dr: Sandra Mark STUDY: X-RAY - RIGHT KNE E REASON [...] Nasir Rodriguez DO at 15:14 EDT Tel [phone], Service support [phone], RAD/Knee 4 or More Views IMPRESSION: Degenerative arthrosis. Electronically Signed: Nasir Rodriguez DO at 15:14 EDT Tel [phone], Service support [phone], Fax CC: Sandra Mark Ecclesiastical Worker: Signed 24-May-2014 Bilat Diag Digital AND CAD Result: Comments: See Note; NOTES: [facility] Imaging Services [address] [place] [address] Breast Imaging Report MR#: [id number] Acct: [id number] Name: TISH HULL Rep #: [id number] : 1950 F 63 From: Xu Adams MD PCP: Sandra Mark Status: REG CLI Study: Bilat Diag Digital AND CAD Date of Exam: 05/24/14 Exam# [id number] Ordering Dr: Trae Owen MD AMMOGRAPHY - BILATERAL DIAGNOSTIC REASON FOR EXAM: [...] Xu Adams MD at 9:22 EST Tel [phone], Service suppo rt [phone], CC: Sandra Mark; Trae Owen Ecclesiastical Worker: Signed 04-Sep-2013 Breast Unilateral Result: Comments: See Note; NOTES: [facility] Imaging Services [address] [place] [address] Ultrasound Report MR#: [id number] Acct: [id number] Name: TISH HULL Rep #: [id number] : 1950 F 62 From: Xu Adams MD PCP: Sandra Mark Status: REG CLI Study: Breast Unilateral Date of Exam: 09/04/13 Exam# [id number] Ordering Dr: Trae Owen MD STUDY: ULTRASO UND BREAST(S) - LEFT REASON FOR EXAM: Female, 62 years old. Palpable lump left breast. TECHNIQUE: Axial and longitudinal images of the LEFT breast were performed with a high resolution ultrasound t r [facility]. COMPARISON: Comparison is made with prior mammogram [...] Xu Adams MD at 14:14 EDT Tel [phone], Service support [phone], CC: Sandra Mark; Trae Owen Ecclesiastical Worker: Signed 04-Sep-2013 Bilat Diag Digital & CAD Result: Comments: See Note; NOTES: [facility] Imaging Services [address] [facility] [place] [address] Breast Imaging Report MR#: [id number] Acct: [id number] Name: TISH HULL Rep #: [id number] : 1950 F 62 From: Xu Adams MD PCP: Sandra Mark Status: REG CLI Exam# [id number] Ordering Dr: Trae Owen MD MAMMOGRAPHY - [...] Xu Adams MD at 15:01 EDT Tel [phone], Service support [phone], CC: Sandra Mark; Trae Owen Ecclesiastical Worker: Signed 04-Sep-2013 Bilat Diag Digital & CAD Result: Comments: See Note; NOTES: [facility] Imaging Services [address] [place] [address] Breast Imaging Report MR#: [id number] Acct: [id number] Name: TISH HULL Rep #: [id number] : 1950 F 62 From: Xu Adams MD PCP: Sandra Mark Status: REG CLI Exam# [id number] Ordering Dr: Trae Owen MD ADDENDUM by Xu Adams MD on 09/07/13 at 1603 === ADDENDUM This is an addendum report. The report is dictated for clarity of the laterality. The pa tient is status post left lumpectomy and not the right lumpectomy. Electronically Signed: Xu Adams MD at 16:03 EDT Tel [phone], Service support [phone], Fax 09/07/13 1612 Date cc: Sandra Owen * Signed MAMMOGRAPHY - BILATERAL DIAGNOSTIC [...] Xu Adams MD at 15:01 EDT Tel [phone], Service s upport [phone], CC: Sandra Ciesa; Trae Alam Ecclesiastical Worker: Signed Family History Unknown Family Member Name Dates Details Daughter 1 Comments: fibromyalgia, stiff man syndrome, lupus Status: Active Daughter 2 Comments: ET, MCTD ( lupus, RA) Status: Active Father Comments: CHF, tremor, HTN, ID Status: Active Sister 1 Comments: Br Ca Status: Active Sister 2 Comments: lupus Status: Active Son 1 Comments: DM Status: Active Social History Name Dates Details Caffeine Use Status: Active 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 Status: Active No Drug Use Status: Active Non Drinker/No Alcohol Use Status: Active Tobacco Use: Current every day smoker. Status: Active Smoking Status Name Dates Details Current every day smoker Vital Signs Date Test Result Details :36 Temperature 97.1 f Comments: Method: Temporal Pulse 75 /min Comments: Pattern: Regular Respiration Rate 20 /min Comments: Pattern: Unlabored O2 SAT 94 % Comments: Room air BP Systolic 180 mm[Hg] Comments: Patient Position: Sitting; Cuff Location: Left Arm; Cuff Size: Standard BP Diastolic 90 mm[Hg] Comments: Patient Position: Sitting; Cuff Location: Left Arm; Cuff Size: Standard Weight 233.125 lb Height 63 in Body Mass Index Calculated 41.3 kg/m2 Body Surface Area Calculated 2.06 m2 :29 Temperature 96.7 f Comments: Method: Temporal Pulse [...] kg/m2 Body Surface Area Calculated 2.08 m2 54-Uum-975694:21 Temperature 97.8 f Comments: Method: Temporal Pulse [...] W/Diff, Automated Comments: Reason for Laboratory Test .[facility] [address] [place], [address] Absolute Lymph 1.42 {X10_3/ul} (Normal) Range: 0.83-4.51 [...] 4.2-5.4 WBC 10.3 K/mm3 (Normal) Range: 4.4-11.0 22-Qkv-762416:36 Comprehensive Metabolic Profil Comments: Reason for Laboratory Test .[facility] [address] [place], [place], [address] GAP 6 (Normal) Range: 5-15 CO2 27.0 [...] A.D.A. criteria.Please note revised GLUCOSE reference range /02/2018. 17-Xwx-130044:45 URINE FABIAN CULTURE-IDENTIFICATN Comments: PATIENT NOT FASTINGPERFORMED BY: [facility] Oohpkm3433 [facility] [id number] Information: SRC: ([id number]) Antimicrobial MIHEAD (Normal) Comments: S = Susceptible; [...] Proteusmirabilis. (Abnormal) Urine Final report Culture,Comprehensive (Abnormal) 60-Sll-038776:24 Urinalysis, Office (89684) UA - LEUKOCYTE ESTERASE Trace (Normal) UA - NITRITE Negative (Normal) URINE UROBILINGN DC TIMED Normal mg/dL (Normal) UA - PROTEIN Negative mg/dL (Normal) UA - PH 7 (Normal) UA - BLOOD Hemolyzed Trace (Normal) UA - SPECIFIC GRAVITY 1.015 (Normal) UA - KETONES Negative mg/dL (Normal) UA - BILIRUBIN Negative (Normal) UA - GLUCOSE Negative (Normal) :23 HgA1C , Office (65177) HgA1C , Office 5.8 % (Normal) Range: 4.6 - 7.1 :23 Blood Glucose , Office (53029) Blood Glucose , Office 117 (Normal) :47 CREATININE FINGERSTICK Comments: [facility] [address] [place] [address] EGFR WB > 60.0000 mL/min (Normal) CREATININE WB 0.9 mg/dL (Normal) Range: 0.55-1.02 :04 HgA1C , Office (95653) HgA1C , Office 5.7 % (Normal) Range: 4.6 - 7.1 :04 Blood Glucose , Office (26810) Blood Glucose , Office 108 (Normal) :50 CBC W/Diff, Automated Comments: Reason for Laboratory Test .[facility] [address] [place], [address] Absolute Lymph 1.83 {X10_3/ul} (Normal) [...] 4.2-5.4 WBC 6.5 K/mm3 (Normal) Range: 4.4-11.0 19-Ewr-934931:50 Comprehensive Metabolic Profil Comments: Reason for Laboratory Test .[facility] [address] [place], [address] GAP 7 (Normal) Range: 5-15 CO2 31.0 mmol/L (Normal) Range: 21.0-32.0 CL 97 mmol/L (Abnormal) Range: 98-107 K 4.0 mmol/L (Normal) Range: 3.5-5.1 NA 135 mmol/L (Abnormal) Range: 136-145 T BILI 0.60 mg/dL (Normal) Range: 0.20-1.00 ALT 20 U/L (Normal) Range: 13-56 Comments: Please note revised ALT reference range uhrtqgvhk67/28/2018. ALK P 135 U/L (Abnormal) Range: 45-117 [...] Comments: Please note revised GLUCOSE reference range pajjijrcd13/02/2018. :32 HgA1C , Office (21482) Comments: 5.7 HgA1C , Office 5.7 % (Normal) Range: 4.6 - 7.1 :32 Blood Glucose , Office (07545) Blood Glucose , Office 141 (Normal) Comments: fasting 25-Uua-427911:04 Microscopic Examination Comments: PATIENT WAS FASTINGPERFORMED BY: [employer]70 [facility] [id number] Bacteria None seen (Normal) Mucus Threads Present (Normal) Epithelial Cells (non renal) 0-10 {/hpf} (Normal) Range: 0 - 10 RBC None seen {/hpf} (Normal) Range: 0 - 2 WBC 11-30 {/hpf} (Abnormal) Range: 0 - 5 44-Qfo-371618:04 URINALYSIS (54644) Comments: Mar or Apr 2017; PATIENT WAS FASTINGPERFORMED BY: PostedIn6370 [facility] [id number] Microscopic Examination See below: (Normal) Comments: Microscopic was indicated and was performed. Nitrite, Urine Negative (Normal) Urobilinogen,Semi-Qn 0.2 mg/dL (Normal) Range: 0.2-1.0 Bilirubin Negative (Normal) Occult Blood Trace (Abnormal) Ketones Negative (Normal) Glucose Negative (Normal) Protein Negative (Normal) WBC Esterase 2+ (Abnormal) Appearance Clear (Normal) Urine-Color Yellow (Normal) pH 7.5 (Normal) Range: 5.0-7.5 Specific [place] 1.012 (Normal) Range: 1.005-1.030 29-Rqh-011555:04 MICROALBUMIN: CREATININE RATIO Comments: MarApr 2017; PATIENT WAS FASTINGPERFORMED BY: [facility]6370 [facility] [id number] (25783) AND (59741) Alb/Creat Ratio 12.7 {mg/g_creat} (Normal) Range: 0.0-30.0 Albumin, Urine 6.3 ug/mL (Normal) Creatinine, Urine 49.6 mg/dL (Normal) 82-Ozl-808720:04 LIPID PANEL (36789) Comments: Fasting Mar or Apr 2017; PATIENT WAS FASTINGPERFORMED BY: [facility]6370 [facility] [id number] LDL/HDL Ratio 2.3 {ratio_units} (Normal) Range: 0.0-3.2 Comments: LDL/HDL Ratio Men Women 1/2 Avg.Risk 1.0 1.5 Av g.Risk 3.6 3.2 2X Avg.Risk 6.2 5.0 3X Avg.Risk 8.0 6.1 LDL Cholesterol Calc 91 mg/dL (Normal) Range: 0-99 VLDL Cholesterol Bella 14 mg/dL (Normal) Range: 5-40 HDL Cholesterol 39 mg/dL (Abnormal) Triglycerides 69 mg/dL (Normal) Range: 0-149 Cholesterol, Total 144 mg/dL (Normal) Range: 100-199 12-Fme-542319:04 CALCIFEDIOL (01023) Comments: Mar or Apr 2017; PATIENT WAS FASTINGPERFORMED BY: [facility]6370 [facility] [id number]; OV 2/6 Vitamin D, 25-Hydroxy 48.9 ng/mL (Normal) Range: 30.0-100.0 Comments: Vitamin D deficiency has been defined by the [place] of[place] and an Endocrine Society practice guideline as alevel of serum 25-OH vitamin D less than 20 ng/mL (1,2).The Endocrine Society went on to further define vitamin Dinsufficiency as a level between 21 and 29 ng/mL (2).1. IOM ([place] of [place]). 2010. Dietary reference intakes for calcium and D. [place]: The National Academies Press.2. Carlitos MF, Rene NC, Garth CARROLL, et al. Evaluation, treatment, and prevention of vitamin D deficiency: an Endocrine Society clinical practice guideline. JCEM. 2010; 96(7):1911-30. 52-Pbi-862528:04 TSH (58997) Comments: Mar or Apr 2017; PATIENT WAS FASTINGPERFORMED BY: [facility]6370 [facility] [id number] TSH 1.660 {uIU/mL} (Normal) Range: 0.450-4.500 01-Cmx-019286:04 Metabolic Panel, Comprehensive Comments: Mar or Apr 2017; PATIENT WAS FASTINGPERFORMED BY: [facility]6370 [facility] [id number] (31970) ALT (SGPT) 16 [iU]/L (Normal) Range: 0-32 [...] Glucose, Serum 100 mg/dL (Abnormal) Range: 65-99 04-Gbs-245790:04 CBC, Platelets & Auto Diff Comments: Mar or Apr 2017; PATIENT WAS FASTINGPERFORMED BY: LabCoSaint Barnabas Behavioral Health CenterKmvqdq7497 [facility] [id number] (66579) Immature Grans (Abs) 0.0 {x10E3/uL} (Normal) Range: [...] (Normal) Range: 3.4-10.8 :45 HgA1C , Office (06057) HgA1C , Office 5.8 % (Normal) Range: 4.6 - 7.1 :45 Blood Glucose , Office (35956) Blood Glucose , Office 110 (Normal) 3-Npa-058949:33 CBC W/Diff, Auto - EPLAB Comments: Order Date: 05/10/16Order Info: [id number] - *CBC w/Diff - oncology ONLYAt [facility] Medical Oncologypatients receive CBC w/auto Differential ONLY. Physiciankathia place an order fo Only r a manual differential or Pathologistreview at his discretion. [facility]. [address] [address] COMPUTER MECHANIC: STEVIE COTA DO PH:[phone] Grant Medical Center [address] [place], [address] Absolute Lymph 2.40 {X10_3/uL} (Normal) Range: 0.83-4.51 [...] 4.2-5.4 WBC 8.9 K/mm3 (Normal) Range: 4.4-11.0 9-Hbv-799728:33 Comprehensive Metabolic Profil Comments: Order Date: 05/10/16Order Info: [id number] - *CMP Complete Metabolic PanelWOhioHealth Grant Medical Center [address] [place], [place], [phone] GAP 5 (Normal) Range: 5-15 CO2 33.0 [...] 7-18 GLU 108 mg/dL (Normal) Range: 70-110 1-Fqg-424417:33 Vitamin D,25 Hydroxy Comments: Order Date: 05/10/16Order Info: [id number] - *Vitamin D (Calciferol)[facility] [address] [place], [address] Vitamin D 25-OH 37.0 ng/mL (Normal) Comments: Vitamin D 25(OH) Status Range Deficiency <20 ng/mL (50nmol/L) Insuffciency 20 - 30 ng/mL (50 - 75 nmol/L) Sufficiency 30 - 100 ng/mL (75 - 250 nmol/L) Toxicity >100 ng/mL (>250 nmol/L) :37 Metabolic Panel, Comprehensive Comments: September 11; PATIENT WAS FASTINGPERFORMED BY: [facility] Bjbgky9185 [facility] [id number] (20137) ALT (SGPT) 17 [iU]/L (Normal) Range: 0-32 [...] (Abnormal) Range: 65-99 :57 HgA1C , Office (61902) HgA1C , Office 5.9 % (Normal) Range: 4.6 - 7.1 :57 Blood Glucose , Office (92513) Blood Glucose , Office 118 (Normal) :30 Serum Creatinine AND GFR Comments: [facility] [address] [place], [place], [address] EST GFR - AA 87 mL/min (Normal) Comments: GFR Calc EST GFR 72 mL/min (Normal) Comments: Non- GFR Calc CREAT,SERUM 0.84 mg/dL (Normal) Range: 0.55-1.02 Comments: The validity of the calculated GFR AND GFRAA in patients over70 years has not been determined. Clinical correlation isessential. :27 Culture, Blood (WB) Comments: [facility] [address] [place], [address] CUB See Note (Normal) Comments: BCNo growth in 5 days. :27 Culture, Blood (WB) Comments: [facility] [address] [place], [address] CUB See Note (Normal) Comments: BCNo growth in 5 days. 1-Ult-684560:01 COMPLEMENT C4 (98737) Comments: PATIENT NOT FASTINGPERFORMED BY: Twitchrp Asfkgz2081 [facility]quareFormer[facility], [facility] [id number] Complement C4, Serum 36 mg/dL (Normal) Range: 14-44 6-Tpv-898041:01 COMPLEMENT C3 (64370) Comments: PATIENT NOT FASTINGPERFORMED BY: Twitchrp [employer] 4 Systems CorporationFormerly [facility], [facility] [id number] Complement C3, Serum 185 mg/dL (Abnormal) Range: 82-167 6-Pnd-062247:01 COMPLEMENT, TOTAL (CH50) Comments: PATIENT NOT FASTINGPERFORMED BY: [employer] Mlhadi4440 [facility]Former[facility], [facility] [id number] (95889) Complement, Total (CH50) 56 U/mL (Normal) Range: 42-60 0-Hwy-239992:01 Sed Rate Erythrocyte (25507) Comments: PATIENT NOT FASTINGPERFORMED BY: [employer] [facility] Mfulmc2329 [facility]Former[facility], [facility] [id number] Sedimentation Rate-Westergren 50 mm/h (Abnormal) Range: 0-40 3-Era-342088:01 CBC, Platelets & Auto Diff Comments: PATIENT NOT FASTINGPERFORMED BY: [employer] [facility] Umedju8814 [employer] [facility] InformaticsFormerly [facility], [facility] [id number] Information: [id number], 999015 SRC: (43054) Immature Grans (Abs) 0.0 {x10E3/uL} (Normal) Range: [...] 3.77-5.28 WBC 13.6 {x10E3/uL} (Abnormal) Range: 3.4-10.8 5-Zmn-740458:49 Rapid Flu (85510 x 2) Comments: ? borderline Influenza A Ag neg a/b (Normal) 2-Pot-510268:01 Influenza A&B Viral Culture Comments: PATIENT NOT FASTINGPERFORMED BY: LabCoSaint Barnabas Behavioral Health CenterJhnojp9443 [facility] [id number] (54892) Viral Culture,Rapid,Influenza FLUABN (Normal) Comments: Negative:No Influenza A or B detected. :53 Urinalysis, Office (66083) UA - LEUKOCYTE ESTERASE Small (Normal) UA - NITRITE Negative (Normal) URINE UROBILINGN DC TIMED Normal mg/dL (Normal) UA - PROTEIN Negative mg/dL (Normal) UA - PH 8.0 (Normal) UA - BLOOD Non Hemolyzed Trace (Normal) UA - SPECIFIC GRAVITY 1.015 (Normal) UA - KETONES Negative mg/dL (Normal) UA - BILIRUBIN Small (Normal) UA - GLUCOSE Negative (Normal) 0-Qox-251559:01 URINE FABIAN CULTURE-IDENTIFICATN Comments: PATIENT NOT FASTINGPERFORMED BY: GroupFlierSaint Barnabas Behavioral Health CenterGqinuy2151 [facility] [id number] (48591) Antimicrobial MIHEAD (Normal) Comments: S = Susceptible; [...] mL (Abnormal) Urine Final report Culture,Comprehensive (Abnormal) 7-Gkf-003351:01 CULTURE, SPUTUM (49171) Comments: PATIENT NOT FASTINGPERFORMED BY: [facility]2usFre[facility] Institute Cotkxy8462 [facility] [id number] Result 1 HAEMIN (Abnormal) Comments: Haemophilus influenzaeModerate [...] negative. Lower Respiratory Final report Culture (Abnormal) 9-Fxc-761285:28 Blood Glucose , Office (92578) Blood Glucose , Office 109 (Normal) :48 HgA1C , Office (22967) HgA1C , Office 6.0 % (Normal) Range: 4.6 - 7.1 :48 Blood Glucose , Office (64537) Blood Glucose , Office 152 (Normal) 00-Arg-902102:23 CBC W/Diff, Auto - EPLAB Comments: [facility] Medical Oncologypatients receive CBC w/auto Differential ONLY. Physicianwill place an order for a manual differential or Pathologistreview at his discretion. [facility]. [address] [place] [address] [place] [address] COMPUTER MECHANIC: STEVIE COTA DO PH:[phone] Grant Medical Center [address] [place], [place], [phone] ; another doc Absolute Lymph 2.39 {X10_3/uL} [...] 4.2-5.4 WBC 7.6 K/mm3 (Normal) Range: 4.4-11.0 70-Nmy-948248:23 Comprehensive Metabolic Profil Comments: Order Date: 11/03/15Interface Comments: STATOrder Date: 11/03/15[facility] [address] [place], [place], [address] ; another doc GAP 8 (Normal) Range: [...] 7-18 GLU 101 mg/dL (Normal) Range: 70-110 37-Trz-772162:23 Vitamin D 1,25-Dihydroxy Comments: Order Date: 11/03/15Order Date: 11/03/15Interface Comments: STATOrder Date: 11/03/15[facility] (refer to report for specific site)refer to report for address and phone number; another doc VITD 1,25 73112 27.8 pg/mL (Normal) Range: 19.9-79.3 Comments: Performed at: [address] [id number] Director: Sascha Cedeno MD, Phone: [phone] 88-Lep-139069:01 HgA1C , Office (95051) Comments: 5.8 HgA1C , Office 5.8 % (Normal) Range: 4.6 - 7.1 :43 Microscopic Examination Comments: PATIENT WAS FASTINGPERFORMED BY: GroupFlierAlta Vista Regional HospitalGhdxmw5201 [facility] [id number] Bacteria Few (Normal) Mucus Threads Present (Normal) Epithelial Cells (non renal) None seen {/hpf} (Normal) Range: 0 - 10 RBC None seen {/hpf} (Normal) Range: 0 - 2 WBC 0-5 {/hpf} (Normal) Range: 0 - 5 :43 Lipid Panel (30921) Comments: PATIENT WAS FASTINGPERFORMED BY: [employer] Apliiq [facility] [id number] LDL/HDL Ratio 1.7 {ratio_units} (Normal) Range: 0.0-3.2 [...] 116 mg/dL (Normal) Range: 100-199 :43 CALCIFEDIOL (14593) Comments: PATIENT WAS FASTINGPERFORMED BY: GroupFlierSaint Barnabas Behavioral Health CenterZoyhfi7244 [facility] [id number] Vitamin D, 25-Hydroxy 62.9 ng/mL (Normal) Range: 30.0-100.0 Comments: Vitamin D deficiency has been defined by the [place] of[place]icine and an Endocrine Society practice guideline as alevel of serum 25-OH vitamin D less than 20 ng/mL (1,2).The Endocrine Society went on to further define vitamin Dinsufficiency as a level between 21 and 29 ng/mL (2).1. IOM ([place]). 2010. Dietary reference intakes for calcium and D. [place]: The National Academies Press.2. Carlitos MF, Rene LAUREANO, Garth CARROLL, et al. Evaluation, treatment, and prevention of vitamin D deficiency: an Endocrine Society clinical practice guideline. JCEM. 2010; 96(7):1911-30. :43 URINALYSIS, W/ MICRO (71061) Comments: PATIENT WAS FASTINGPERFORMED BY: [facility]Common[facility] [id number] Microscopic Examination See below: (Normal) Comments: Microscopic was indicated and was performed. Microscopic Examination MICRON (Normal) Comments: Microscopic follows if indicated. Nitrite, Urine Negative (Normal) Urobilinogen,Semi-Qn 1.0 mg/dL (Normal) Range: 0.2-1.0 Bilirubin Negative (Normal) Occult Blood Negative (Normal) Ketones Negative (Normal) Glucose Negative (Normal) Protein Negative (Normal) WBC Esterase Negative (Normal) Appearance Clear (Normal) Urine-Color Yellow (Normal) pH 6.5 (Normal) Range: 5.0-7.5 Specific [place] 1.007 (Normal) Range: 1.005-1.030 :43 MICROALBUMIN: CREATININE RATIO Comments: PATIENT WAS FASTINGPERFORMED BY: [facility], [facility] [id number] (25826) AND (71247) Microalb/Creat Ratio <11.2 {mg/g_creat} (Normal) Range: 0.0-30.0 Microalbumin, Urine <3.0 ug/mL (Normal) Creatinine, Urine 26.8 mg/dL (Normal) :43 TSH (THYROID STIMULATING Comments: PATIENT WAS FASTINGPERFORMED BY: [facility] [id number] HORMONE) (55264) TSH 0.992 {uIU/mL} (Normal) Range: 0.450-4.500 :43 Metabolic Panel, Comments: PATIENT WAS FASTINGPERFORMED BY: LabCoSaint Barnabas Behavioral Health CenterByaafg2886 Girish Harden [place] [id number] Information: HARD DRAW Comprehensive (18385) ALT (SGPT) 21 [iU]/L (Normal) Range: 0-32 [...] (Normal) Range: 65-99 :09 HgA1C , Office (35754) Comments: 6.2 HgA1C , Office 6.2 % (Normal) Range: 4.6 - 7.1 :09 Blood Glucose , Office (20072) Blood Glucose , Office 123 (Normal) :36 CBC W/Diff, Auto - EPLAB Comments: At [facility] Medical Oncologypatients receive CBC w/auto Differential ONLY. Physicianwill place an order for a manual differential or Pathologistreview at his discretion. [facility]. [address] [place] [address] [address] COMPUTER MECHANIC: STEVIE COTA DO PH:[phone] Va Medical Center [address] [place], [address] Absolute Lymph 2.15 {X10_3/uL} (Normal) Range: 0.83-4.51 [...] Profil Comments: Order Date: 11/03/15OV Order #: [id number] Specimen #1, #2 or #3? 1 [id number] [facility] [address] [place], [address] GAP 6 (Normal) Range: 5-15 CO2 31.0 [...] 7-18 GLU 103 mg/dL (Normal) Range: 70-110 4-Etl-013026:32 LDH 164 U/L (Normal) Comments: Order Date: 11/03/15OV Order #: [id number] Specimen #1, #2 or #3? [id number] [place] [address] [place], [place], [address] Range: 84-246 0-Rag-868564:32 Uric Acid Comments: Order Date: 11/03/15OV Order #: [id number] Specimen #1, #2 or #3? [id number] [place] [address] [place], [place], [address] URIC 5.4 mg/dL (Normal) Range: 2.6-6.0 Comments: The drugs N-Acetylcysteine and Metamizole may falsely deressthis assay. 8-Ict-934698:00 Vancomycin, Trough Level Comments: Comments: FAX REPORT TO SANDRA MARK EBONY [phone] AND [facility] RXChillicothe Va Medical Center [address] [place], [address] VANCO, TROUGH 14.7 ug/mL (Normal) Range: 5.0-15.0 Comments: VANCOMYCIN STANDARED DRUG THERAPY TROUGH LEVEL: 5.0 - 15.0 mg/LVANCOMYCIN HIGH INTENSITY THERAPY TROUGH LEVEL: 15.0 - 20 .0 mg/LHigh Intensity therapy recommended for serious lifethreatening infections include:- Jmaovjizsg-Qqghziazosbj-Osytuooyc (Ventilator/Healtcare Associated)- SepsisPLEASE CONTACT PHARMACY SERVICES (#8043) FOR INTERPRETATIONOF RESULTS. 10-Tqw-390133:21 M R Staph Aureus DNA by PCR Comments: Source: NASAL SWABChillicothe Va Medical Center [address] [place], [address] MRSA RESULT POSITIVE (Abnormal) 32-Rcq-724852:22 Aerobic Bacterial Culture Comments: send for MRSA left flank; PATIENT NOT FASTINGPERFORMED BY: [facility]Co Vkuzkd9154 [facility] [id number] Information: SRC:WND [id number] (23717) Result 1 MRSA (Abnormal) Comments: Methicillin - [...] S Aerobic Bacterial Final report (Abnormal) Culture 90-Tvp-95618:03 HgA1C , Office (40444) Comments: 6.0 HgA1C , Office 6.0 % (Normal) Range: 4.6 - 7.1 :03 Blood Glucose , Office (23481) Blood Glucose , Office 120 (Normal) :01 POTASSIUM SERUM (33864) Comments: STAT; [facility] [address] [place], [place], [address] K 4.8 mmol/L (Normal) Range: 3.5-5.1 :40 Metabolic Panel, Comments: PATIENT WAS FASTINGPERFORMED BY: LabCoSaint Barnabas Behavioral Health CenterAufxfm0075 [facility] [id number] Information: [id number] Comprehensive (82054) ALT (SGPT) 21 [iU]/L (Normal) Range: 0-32 [...] (Abnormal) Range: 65-99 :40 HEPATIC FUNCTION PANEL (74171) Comments: PATIENT WAS FASTINGPERFORMED BY: [facility]6370 [facility] [id number] Bilirubin, Direct 0.17 mg/dL (Normal) Range: 0.00-0.40 :40 Lipid Panel (41511) Comments: PATIENT WAS FASTINGPERFORMED BY: [facility]6370 [facility] [id number] LDL/HDL Ratio 1.6 {ratio_units} (Normal) Range: 0.0-3.2 [...] Cholesterol, Total 128 mg/dL (Normal) Range: 100-199 :36 TSH (18147) Comments: PATIENT WAS FASTINGPERFORMED BY: [facility]6370 [facility] [id number] TSH 1.320 {uIU/mL} (Normal) Range: 0.450-4.500 1-Esl-147400:36 MICROALBUMIN: CREATININE RATIO Comments: PATIENT WAS FASTINGPERFORMED BY: [place] 6586570 [facility] [id number] (50042) AND (96665) Microalb/Creat Ratio <4.6 {mg/g_creat} (Normal) Range: 0.0-30.0 Microalbumin, Urine <3.0 ug/mL (Normal) Range: 0.0-17.0 Creatinine, Urine 64.9 mg/dL (Normal) Range: 15.0-278.0 2-Zbb-060913:36 LIPID PANEL (34713) Comments: PATIENT WAS FASTINGPERFORMED BY: GroupFlierSaint Barnabas Behavioral Health CenterKxtzxl9995 [facility] [id number] Information: [id number] LDL/HDL Ratio 2.9 {ratio_units} (Normal) Range: 0.0-3.2 [...] 200 mg/dL (Abnormal) Range: 100-199 :36 CALCIFEDIOL (74367) Comments: PATIENT WAS FASTINGPERFORMED BY: GroupFlierSaint Barnabas Behavioral Health CenterIwqnue2378 [facility] [id number] Vitamin D, 25-Hydroxy 35.2 ng/mL (Normal) Range: 30.0-100.0 Comments: Vitamin D deficiency has been defined by the [place] of[place]icine and an Endocrine Society practice guideline as alevel of serum 25-OH vitamin D less than 20 ng/mL (1,2).The Endocrine Society went on to further define vitamin Dinsufficiency as a level between 21 and 29 ng/mL (2).1. IOM ([place] of [place]). 2010. Dietary reference intakes for calcium and D. [place]: The National Academies Press.2. Carlitos MF, Rene NC, Garth CARROLL, et al. Evaluation, treatment, and prevention of vitamin D deficiency: an Endocrine Society clinical practice guideline. JCEM. 2010; 96(7):1911-30. 77-Nrs-122407:16 CBC W/Diff, Auto - EPLAB Comments: At [facility], [place] Medical Oncologypatients receive CBC w/auto Differential ONLY. Physicianwill place an order for a manual differential or Pathologistreview at his discretion. [facility]. [address] [place] [address] [address] COMPUTER MECHANIC: STEVIE COTA DO PH:[phone] Va Medical Center [address] [place], [address] Absolute Lymph 2.05 {X10_3/uL} (Normal) Range: 0.83-4.51 [...] 4.2-5.4 WBC 6.4 K/mm3 (Normal) Range: 4.4-11.0 64-Wao-714978:14 Comprehensive Metabolic Profil Comments: Serial Specimen #1, #2 or #3? 1[facility] [address] [place], [address] GAP 8 (Normal) Range: 5-15 CO2 30.0 [...] 7-18 GLU 94 mg/dL (Normal) Range: 70-110 46-Pfi-868851:14 LDH 176 U/L (Normal) Comments: Serial Specimen #1, #2 or #3? [address] [place] [address] [address] [place], [place], [address] Range: 84-246 08-Rtg-819709:14 Uric Acid Comments: Serial Specimen #1, #2 or #3? [address] [place] [address] [address] [place], [place], [address] URIC 6.1 mg/dL (Abnormal) Range: 2.6-6.0 48-Kov-571664:14 Vitamin D 1,25-Dihydroxy Comments: [facility] (refer to report for specific site)refer to report for address and phone number; ordered by another doctor VITD 1,25 58243 69.0 pg/mL (Normal) Range: 19.9-79.3 Comments: Performed at: - [address] [id number] Director: Sascha eCdeno MD, Phone: [phone] 46-Cfs-473984:20 HgA1C , Office (13942) HgA1C , Office 6.1 % (Normal) Range: 4.6 - 7.1 39-Gor-252243:20 Blood Glucose , Office (82560) Blood Glucose , Office 89 (Normal) 89-Lje-188954:53 CALCIFEDIOL (69392) Comments: PATIENT WAS FASTINGPERFORMED BY: GroupFlierSaint Barnabas Behavioral Health CenterNbocqd5724 [facility] [id number] Vitamin D, 25-Hydroxy 23.0 ng/mL (Abnormal) Range: 30.0-100.0 Comments: Vitamin D deficiency has been defined by the [place] of[place] and an Endocrine Society practice guideline as alevel of serum 25-OH vitamin D less than 20 ng/mL (1,2).The Endocrine Society went on to further define vitamin Dinsufficiency as a level between 21 and 29 ng/mL (2).1. IOM ([place]). 2010. Dietary reference intakes for calcium and D. [place]: The National Academies Press.2. Carlitos MF, Rene NC, Garth CARROLL, et al. Evaluation, treatment, and prevention of vitamin D deficiency: an Endocrine Society clinical practice guideline. JCEM. 2010; 96(7):1911-30. 52-Nhy-158748:53 Lipid Panel (98197) Comments: PATIENT WAS FASTINGPERFORMED BY: [facility]6370 [facility] [id number] Information: [id number] LDL/HDL Ratio 2.8 {ratio_units} Range: 0.0-3.2 (Normal) [...] (CHOOSE See Note (Normal) Comments: Test performed at:[facility] [address] [facility] [address] [place], [place] [address] :00 SITE) Comments: Patient: TISH HULL : 1950 (64/F) Acct Num: [id number] Phys: Scot REAAGN,Deandra Unit Num: [id number] Loc: [facility] Specimen: [id number] Received: 10/12/141125 Spec Type: BREAST BX TISSUES TISSUES: COMMENT Please see previous specimen ([id number]) left breast tissue, stereotactic core biopsy with diagnosis of ductal carcinoma in situ. GROSS DESCRIPTION Received is one container labeled with the patient name and designated left breast. The specimen consists of multiple elongated fragments of martinez-yellow fibroadipose tissue measuring in aggregate 2.5 x 0.5 x 0.1 cm. The specimen is totally submitted in one cassette. / Sheila 10/12/14 TC:3 CPT: 07764 HEADER OPERATION: U/S guided left breast biopsy PRE-OP DIAGNOSIS: Abnormal left breast U/S lesion TISSUE SUBMITTED: Left breast tissue MICROSCOPIC DIAGNOSIS Left breast tissue, ultrasound-guided core biopsy: Fragments of fibroadipose and fibroconnective tissue with chronic inflam mation, calcifications and foreign body giant cell reaction. Negative for atypia or malignancy in the submitted specimen. Breast tissue is not identified in the submitted specimen. MARISSA:rox 10/13/14 Signed Shayan Ching 10/13/14 <signature on file> 5-Nmo-375279:16 Comprehensive Metabolic Profil Comments: Serial Specimen #1, #2 or #3? 1Test performed at:[facility] [address] [facility] [place] [address] GAP 6 (Normal) Range: 5-15 CO2 28.0 [...] 7-18 GLU 97 mg/dL (Normal) Range: 70-110 8-Sxw-462447:16 LDH 189 U/L (Normal) Comments: Serial Specimen #1, #2 or #3? 1Test performed at:[facility] [address] [place] [address] Range: 87-241 3-Van-699096:16 Uric Acid Comments: Serial Specimen #1, #2 or #3? 1Test performed at:[facility] [address] [place] [address] URIC 5.5 mg/dL (Normal) Range: 2.6-6.0 4-Vra-871116:05 CBC W/Diff, Auto - EPLAB Only Comments: At [facility] Medical Oncologypatients receive CBC w/auto Differential ONLY. Physicianwill place an order for a manual differential or Pathologistreview at his discretion. [facility]. [address] [place] [address] [place] [address] COMPUTER MECHANIC: STEVIE COTA DO PH:[phone] performed at:[facility] Laborato [address] [place], [place] [address] Absolute Neut 2.7 {X10_3/uL} (Normal) Range: 2.0-7.7 [...] 4.2-5.4 WBC 4.8 K/mm3 (Normal) Range: 4.4-11.0 25-Wlq-35733:00 Culture, Wound Comments: Test performed at:[facility] [address] [place], [place] [address] CUW See Note (Normal) Comments: Comments: RIGHT [...] 1 S(NF) in dicates non-formulary drug at [facility]. Approval by Infectious Disease Specialist required before non-formulary drugs may be ordered and/or dispensed. * CLSI guidelines does not recommend testing of cephalosporins. This interpretation is deduced from Beta-lactam/penicillin results. 22-Xjm-354574:16 Anaerobic & Aerobic Comments: R leg; PATIENT NOT FASTINGPERFORMED BY: Twitch Qcwfvm8364 [facility] [id number] Information: SRC:MADDIE [id number] RIGHT LEG Culture (30603) Result 1 MRSA (Abnormal) Comments: Methicillin - [...] mmol/L (Normal) Range: 3.5-5.1 :12 :13 CALCIFEDIOL (67933) Comments: PATIENT NOT FASTINGPERFORMED BY: [facility] Center6370 [facility] [id number] Information: [id number] Vitamin D, 25-Hydroxy 23.8 ng/mL (Abnormal) Range: 30.0-100.0 Comments: Vitamin D deficiency has been defined by the [place] of[place]icine and an Endocrine Society practice guideline as alevel of serum 25-OH vitamin D less than 20 ng/mL (1,2).The Endocrine Society went on to further define vitamin Dinsufficiency as a level between 21 and 29 ng/mL (2).1. IOM ([place]). 2010. Dietary reference intakes for calcium and D. [place]: The National Academies Press.2. Carlitos MF, Rene NC, Garth CARROLL, et al. Evaluation, treatment, and prevention of vitamin D deficiency: an Endocrine Society clinical practice guideline. JCEM. 2010; 96(7):1911-30. 65-Kru-110349:04 CBC, Platelets & Auto Comments: pls send copy to Dr epperson; Test(s) Potassium, Serum called to Dr Felix on 12/21/2013 at 23:26 ESTPATIENT NOT FASTINGPERFORMED BY: LabCoSaint Barnabas Behavioral Health CenterCjaxji2240 [facility] [id number] Information: [id number] Diff (22837) Immature Grans (Abs) 0.0 {x10E3/uL} (Normal) Range: [...] 3.77-5.28 WBC 5.2 {x10E3/uL} (Normal) Range: 3.4-10.8 89-Kuo-604765:04 Metabolic Panel, Comprehensive Comments: pls send copy to dr epperson; Test(s) Potassium, Serum called to Dr Felix on 12/21/2013 at 23:26 ESTPATIENT NOT FASTINGPERFORMED BY: LabCoSaint Barnabas Behavioral Health CenterZbusqq6048 [facility] [id number] (41678) ALT (SGPT) 15 [iU]/L (Normal) Range: 0-32 [...] Glucose, Serum 79 mg/dL (Normal) Range: 65-99 01-Zet-149140:04 HEPATIC FUNCTION PANEL Comments: pls send copy to Dr Epperson; Test(s) Potassium, Serum called to Dr Felix on 12/21/2013 at 23:26 ESTPATIENT NOT FASTINGPERFORMED BY: LabCoSaint Barnabas Behavioral Health CenterRaxzyw7446 [facility] [id number] (30370) Bilirubin, Direct 0.09 mg/dL (Normal) Range: 0.00-0.40 99-Yoq-99359:55 CMP Comments: Serial Specimen #1, #2 or [...] (Normal) Range: 70-110 :55 ECBCD Comments: At [facility], Dr Lang patients receiveCBC w/auto Differential ONLY. He will place an order for amanual differential or Pathologist review at his discretion.[facility].[address] [place], [place] [address]KRF DIRECTOR: STEVIE COTA DO PH:[phone] ANC 5.3 {X10_3/uL} (Normal) Range: 2.0-7.7 B% [...] Comments: pls also fax to Dr epperson- [phone]; PATIENT NOT FASTINGPERFORMED BY: [facility] Lqqodh1453 [facility] [id number] Information: [id number] CC:[id number] (10651) Immature Grans (Abs) 0.0 {x10E3/uL} (Normal) Range: [...] pls also fax results to Dr epperson- [phone]; PATIENT NOT FASTINGPERFORMED BY: LabCoSaint Barnabas Behavioral Health CenterFdjbaq9524 [facility] [id number] (78321) ALT (SGPT) 17 [iU]/L (Normal) Range: 0-32 [...] (THYROID STIMULATING Comments: PATIENT NOT FASTINGPERFORMED BY: TwitchSaint Barnabas Behavioral Health CenterEvvsna5965 [facility] [id number] HORMONE) (51797) TSH 1.350 {uIU/mL} (Normal) Range: 0.450-4.500 :46 CALCIFEDIOL (86176) Comments: PATIENT NOT FASTINGPERFORMED BY: LabCoSaint Barnabas Behavioral Health CenterBleeut5616 [facility] [id number] Vitamin D, 25-Hydroxy 30.9 ng/mL (Normal) Range: 30.0-100.0 Comments: Vitamin D deficiency has been defined by the [place] of[place]icine and an Endocrine Society practice guideline as alevel of serum 25-OH vitamin D less than 20 ng/mL (1,2).The Endocrine Society went on to further define vitamin Dinsufficiency as a level between 21 and 29 ng/mL (2).1. IOM ([place]). 2010. Dietary reference intakes for calcium and D. [place]: The National Academies Press.2. Carlitos MF, Rene LAUREANO, Garth CARROLL, et al. Evaluation, treatment, and prevention of vitamin D deficiency: an Endocrine Society clinical practice guideline. JCEM. 2010; 96(7):1911-30. 54-Xnv-404995:28 HgA1C , Office (14738) HgA1C , Office 5.3 % (Normal) Range: 4.6 - 7.1 80-Jlm-650074:36 Renal function Panel Comments: PATIENT NOT FASTINGPERFORMED BY: [employer] [place] [id number] Information: ADD [id number] AND DRAW FEE 99 8164 (93393) Albumin, Serum 4.2 g/dL (Normal) Range: 3.6-4.8 [...] Glucose, Serum 114 mg/dL (Abnormal) Range: 65-99 03-Aax-031929:36 CALCIFEDIOL (85130) Comments: PATIENT NOT FASTINGPERFORMED BY: PostedIn6370 CodeSquareFormerly [facility], [facility] [id number] Vitamin D, 25-Hydroxy 29.9 ng/mL (Abnormal) Range: 30.0-100.0 Comments: Vitamin D deficiency has been defined by the [place] of[place] and an Endocrine Society practice guideline as alevel of serum 25-OH vitamin D less than 20 ng/mL (1,2).The Endocrine Society went on to further define vitamin Dinsufficiency as a level between 21 and 29 ng/mL (2).1. IOM ([place]). 2010. Dietary reference intakes for calcium and D. [place]: The National Academies Press.2. Carlitos MF, Rene NC, Garth CARROLL, et al. Evaluation, treatment, and prevention of vitamin D deficiency: an Endocrine Society clinical practice guideline. JCEM. 2010; 96(7):1911-30. 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 Smoker : Eprescribed prescriptions (G8553) Indication: Smoker BMI 40.0-44.9, adult : Follow up in [...] 3 months except 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 Indication: Smoking addiction Hypertension, benign : [...] antibody) : Reviewed Diagnostic Tests Indication: Positive MMII (antinuclear antibody) Hypertension, benign : Reviewed Lab Indication: Hypertension, benign COPD (chronic obstructive pulmonary disease) : Follow up in 3 months for GEn med and make an appt for this Darrius am with [facility] Indication: COPD (chronic obstructive pulmonary disease) Knee pain, right : Follow up in 1 month with [facility] for Gen Med Indication: Knee pain, right Knee pain, right : Follow up if no improvement or if symptoms worsen Indication: Knee pain, right Knee pain, right : Reviewed [employer] Letter Indication: Knee pain, right Knee pain, [...] Indication: Positive MIMI (antinuclear antibody) Planned Observations Blood Glucose , Office (87913)Indication: Abnormal glucose tolerance test (GTT) On: :37 Request HgA1C , Office (17852)Indication: Abnormal glucose tolerance test (GTT) On: 14-Apr-20189:37 Request MICROALBUMIN: CREATININE RATIO (00963) AND (30228)Indication: SOB (shortness of breath) On: :47 Request TSH (94755)Indication: SOB (shortness of breath) On: 06-Sep-20179:47 Request FABIAN CULTURE-BLOOD (72372)Indication: Elevated WBC count On: 6-Scf-811083:29 Request FABIAN CULTURE-BLOOD (76176)Indication: Elevated WBC count On: 7-Jce-281367:29 Request MRSA Culture (29039)Indication: Cellulitis of trunk, unspecified site of trunk On: 56-Pqw-664519:04 Request Comments: nose HgA1C , Office (49866)Indication: Prediabetes On: 1-Esi-043223:02 Request MRSA Culture (42575)Indication: Cellulitis On: 52-Kiy-12030:40 Request FABIAN CULTURE-OTHER (08508)Indication: Cellulitis On: :39 Request POTASSIUM SERUM (07907)Indication: Hyperkalemia On: 10-Irf-72801:14 Request Comments: pls call results to [phone] Planned Encounters Medical; 3 Month FU - On: 14-Jul-2018 9:30 [facility] Zane ZAVALA PiliMandie Mark CNP Pili Planned Procedures Flu Vaccine (Quadrivalent) 70679Mi: On: 25-Dec-2017 Intent Zane ZAVALA PiliMandie Mark CNP Pili PHYSICAL THERAPY (27618)By: Gabriele, On: 17-Dec-2017 Intent Lynda Radiology - Knee - RightBy: Gabriele, On: 17-Dec-[address] THORAX W CONTRAST (79318)By: On: 11-Oct-2017 Intent Zane ZAVALA PiliMandie Mark CNP Pili Comments: new rt lower 4.5mm lung nodule ordered by Dr. Brittney shrestha in October of 2016 CT chest without contrast PET-CT ENTIRE BODY (96989)By: Zane On: 24-Sep-2017 Intent Sandra ZAVALA CNP Pili CONTINUOUS OVERNIGHT PULSE OXIMETRY On: 06-Sep-2017 Intent (59312)By: Sandra Mark CNP, CNP Pili CT - Chest (IV Contrast Needed)By: On: 06-Sep-2017 Intent Zane ZAVALA PiliMandie Mark CNP Pili CONTINUOUS OVERNIGHT PULSE OXIMETRY On: 06-Sep-2017 Intent (51589)By: Sandra Mark CNP, CNP Pili Spirometry (00758)By: Zane ZAVALA, On: 06-Sep-2017 Intent Sandra Mark CNP Pili Six Minute Walk Assessment On: 06-Sep-2017 Intent (12647)By: Sandra Mark CNP, CNP Pili Flu Vaccine (Quadrivalent) 27030Pk: On: 01-Jan-2017 Intent Nai Trevizo LPN Comments: InfluenzaLot #[id number]-09/23/18Site-R dltd, IMDose prefilled syringeVIS and ABN signedgiven by:ROSA gallardo Spirometry (70922)By: Zane ZAVALA, On: 04-Sep-2016 Intent Sandra Muhammad CNP Comments: severe airway obstruction with low vital capacity Aerosol Treatment (36689)By: Zane On: 04-Sep-2016 Intent Sandra ZAVALA Mireyalevi SALLYSandra Aerosol Treatment (99700)By: Zane On: 11-Jul-2016 Intent SALLYSandra Zane ZAVALA Pili Radiology - ChestBy: Zane ZAVALA Sandra On: 09-Jul-2016 Intent Mandie Zane ZAVALASandra Aerosol Treatment (56734)By: Zane On: 09-Jul-2016 Intent SALLYSandra Zane ZAVALA Sandra Lockwood Flu Vaccine (Quadrivalent) 55899Aa: On: 07-Feb-2016 Intent Zane ZAVALA Sandra Lockwood Zane ZAVALA Pili Comments: Lot:[id number]:10/05/16Dose:0.5mLRoute:IMSite:r DltdGiven By:Emely signed Rocephin Injection, 2 Gram On: 06-Sep-2015 Intent (J0696)By: Sandra Mark CNP, CNP Pili Ultrasound - Abdomen CompleteBy: On: 13-May-2015 Intent Sandra Mark CNP, CNP Pili Venous Doppler - RightBy: Zane ZAVALA, On: 13-May-2015 Intent Sandra Mark CNP Pili PHYSICAL THERAPY EVALUATION On: 14-Jul-2014 Intent (74250)By: Sandra Mark CNP, CNP, Mary E Radiology - Knee - RightBy: Zane On: 14-Jul-2014 Intent SALLY Sandra Lockwood Zane ZAVALA Pili IV Needle placement (07016)By: On: 24-Feb-2014 Intent Sandra Mark CNP, CNP Pili Comments: 22G insyte initiated in R medial wrist, no s/s infiltration, redness, swelling, dsg dry intact, infusing on gravity pole at 48gtts/min- catheter removed intact, tolerated well- CTyler MANAGER OF PHOTOGRAPHY Rocephin Injection, 2 Gram On: 24-Feb-2014 Intent (J0696)By: Sandra Mark CNP Comments: lot # [id number]- 09/06/16site-R medial wrist route-IVdose- 2GCTyler MANAGER OF PHOTOGRAPHY Sandra ZAVALA ELECTROCARDIOGRAM, COMPLETE (ECG) On: 22-Dec-2013 Intent (03441)By: Sandra Mark CNP, CNP, Sandra Lockwood FLU VAC, SPLIT, >3 YEARS, INTRAMUSC On: 30-Dec-2012 Intent (85893)By: Leslie Roberts LPN Comments: Lot:[id number]:Dose:0.5mLRoute:IMSite:L DltdGiven By:DELILAH signed IMMUNIZ ADMNIN, 1 VAC, SNGL/COMBO On: 30-Dec-2012 Intent (62724)By: Leslie Roberts LPN Planned Medications INJECTION, CEFTRIAXONE SODIUM, PER 250 MG Ordered: 24-Feb-2014 Pending Sandra Mark CNPa SALLY, Sandra Lockwood INJECTION, CEFTRIAXONE SODIUM, PER 250 MG Ordered: 06-Sep-2015 Pending Sandra Mark CNP, CNP, Sandra Lockwood Instructions Name Dates Details Smoker : How to access health information [...] benign : DISCONTINUED - METABOLIC PANEL, COMPREHENSIVE (98835) Indication: Hypertension, benign Hypertension, benign : DISCONTINUED - CBC with auto diff (90632) Indication: Hypertension, benign Hyperglycemia : How to [...] Advance Directives Name Dates Details Immunization Registry Ambia - Effective on Effective: 01-Jan-201801/01/2018. Expiration date unspecified Encounters Annotation/Addendum On: 14-Apr-2018 16:23 Encounter Diagnosis: Polyarthropathy (Renamed from Inflammation of multiple joints) End: 14-Apr-2018 16:30 [facility] Office Visit On: 14-Apr-2018 9:33 Encounter Reason: Follow up for chronic medical issues - The patient feels well with minor complaints (bumps, pains in leg), has decreased energy level and is sleeping well. Patient has been compliant with instructions. End: 14-Apr-2018 10:27 Current medication use: no side effects, compliant with dosing regimen and considered effective by patient. Patient sleeps 7 (7-8 broken) hours per night. Nutrition: balanced diet. The medical issues e patient is following up for include All identified problems below, blood sugar issues, COPD, high blood pressure, high cholesterol, osteoarthritis and other (Br CA, MCTD, LUPUS). blood pressure range :. Note for Follow up for chronic medical issues: Feeling ok,, [ADDITIONAL REASON] Tingling - Note for Tingling: Feels like a bee sting feeling in legs, arms hands elbow. 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 Other providers contributing to the patient's car e are day haul youth supervisor (Merlyn) and other: (Lexie, Dr owen, Restaurant Manager. Dr. Ahumada neurology. )., [ADDITIONAL REASON] Follow [...] pressure range : (146/98, ).Encounter Diagnosis: End: 30-Dec-2012 10:45 Parkinson disease (332.0), Lupus (710.0), NEED [...] Lupus (710.0) [facility] Payers Kelton Hull; a guarantor
--- OUTSIDE RECORDS SUMMARY | 2018-07-02 03:37 | XMS RPT_ITS | Continuity of Care Document ---
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 Status: Active Lower urinary [...] V46.2) Comments: gets it from Julianne saw Sibilia in past Status: Active Parkinson [...] day now will DC it since on zncoxuj8raxcst ago started tremor,improvement with propraololwas using cane [...] days Quantity: 90 {Tablet} Refills: 3 Ordered:14-Apr-2018 Sandra Mark CNP, CNP Pili Start : 14-Apr-2018 Active Bevespi Aerosphere 9-4.8 MCG/ACT Inhalation Aerosol 2 (two) Puff bid for 30 days Quantity: 2 {Inhaler} Refills: 3 Ordered:23-Sep-2017 Zane ZAVALA Sandra Roni ZAVALA Sandra Lockwood Start : 23-Sep-2017 Active Comments:L Biotin 1000 MCG Oral Tablet 1 qd (1000 MCG) Active Calcium with Vitamin D 600 mg 1 tablet daily Active Carbidopa-Levodopa 25-100 MG Oral Tablet 3 (three) Tablet daily for 90 days Refills: 0 Ordered:14-May-2017 Sandra Mark CNP, CNP Sandra Lockwood Start : 14-May-2017 Active Comments:Dr Ahumada but cant get to office, will give one month supply but need to see Zita HydroCHLOROthiazide 12.5 MG Oral Tablet 2 (two) Tablet daily for 0 days Quantity: 60 {Tablet} Refills: 6 Ordered:25-Dec-2017 Sandra Mark CNP, CNP Pili Start : 25-Dec-2017 Active Lasix 20 MG Oral Tablet 1 (one) Tablet daily prn for 0 days Quantity: 30 {Tablet} Refills: 0 Ordered:01-Jan-2017 Sandra Mark CNP, CNP Sandra Lockwood Start : 01-Jan-2017 Active Plaquenil 200 MG Oral Tablet 2 (two) Tablet daily for 0 days Quantity: 60 {Tablet} Refills: 0 Ordered:01-Jan-2017 Zane ZAVALA Sandra Munguia CNP Start : 01-Jan-2017 Active Probiotic Oral Capsule 1 (one) Capsule Capsule daily for 0 days Quantity: 30 {Capsule} Refills: 0 Ordered:10-Feb-2018 AniketNancy Start : 25-Dec-2017 Active VITAMIN C ER, 500MG (Oral Tablet Extended Release) 1 daily (500 MG) Active Vitamin D3 2000 UNIT Oral Capsule 1 (one) Capsule daily for 0 days Quantity: 30 {Capsule} Refills: 0 Ordered:01-Jan-2017 Zane SALLY Sandra Tamayo SALLY Sandra Lockwood Start : 01-Jan-2017 Active Amoxicillin-Pot Clavulanate 875-125 MG Oral Tablet 1 (one) Tablet bid for 7 days Quantity: 14 {Tablet} Refills: 0 Ordered:30-Dec-2017 Zane SALLY Sandra Tamayo SALLYSandra Start : 30-Dec-2017 End : 06-Jan-2018 Inactive AUGMENTIN, 875-125MG (Oral Tablet) 1 (one) Tablet bid for 7 days Quantity: 14 {Tablet} Refills: 0 Ordered:01-Mar-2014 Zane SALLY Sandra Tamayo SALLY Sandra Lockwood Start : 01-Mar-2014 End : 08-Mar-2014 Inactive BACTRIM DS, 800-160MG (Oral Tablet) 1 (one) Tablet Tablet bid for 10 days Quantity: 20 {Tablet} Refills: 0 Ordered:10-Sep-2015 CAPRI Manning Start : 06-Sep-2015 End : 10-Sep-2015 Inactive CEFADROXIL, 500MG (Oral Capsule) 1 (one) Capsule bid for 7 days Quantity: 14 {Capsule} Refills: 0 Ordered:24-Feb-2014 Zane SALLY Sandra Tamayo SALLYSandra Start : 24-Feb-2014 End : 03-Mar-2014 Inactive Cefdinir 300 MG Oral Capsule 1 (one) Capsule Capsule bid for 7 days Quantity: 14 {Capsule} Refills: 0 Ordered:13-Jul-2016 Zane SALLY Sandra Tamaoy SALLYSandra Start : 13-Jul-2016 End : 20-Jul-2016 Inactive Cipro 500 MG Oral Tablet 1 (one) Tablet bid for 7 days Quantity: 14 {QS} Refills: 0 Ordered:14-May-2017 Mireyagilmerpadmaja ZAVALA Sandra Crowepadmaja ZAVALA Sandra Lockwood Start : 08-May-2017 End : 14-May-2017 Inactive Clindamycin Phosphate 1 % External Solution 1 (one) Application Application bid for 0 days Quantity: 1 {Bottle} Refills: 0 Ordered:17-Dec-2017 Long GROUND WATER CONTRACTORIrish Start : 14-May-2017 End : 17-Dec-2017 Inactive Diflucan 150 MG Oral Tablet 1 (one) Tablet PO Daily Q 72 h x 2 doses for 0 days Quantity: 2 {Tablet} Refills: 1 Ordered:14-Apr-2018 Mireyagilmerpadmaja ZAVALA Sandra Roni ZAVALA Sandra Lockwood Start : 25-Dec-2017 End : 14-Apr-2018 Inactive Furosemide 20 MG Oral Tablet 1 (one) Tablet daily x 2 days for 0 days Quantity: 15 {Tablet} Refills: 0 Ordered:14-Apr-2018 Zane ZAVALA Sandra Roni ZAVALA Sandra Lockwood Start : 10-Feb-2018 End : 14-Apr-2018 Inactive PredniSONE 10 MG Oral Tablet 1 (one) Tablet one daiy prn for lupus flare for 30 days Quantity: 30 {Tablet} Refills: 0 Ordered:06-Sep-2017 Zane ZAVALA Sandra Roni ZAVALA Sandra Lockwood Start : 06-Sep-2017 End : 06-Oct-2017 Inactive Symbicort 160-4.5 MCG/ACT Inhalation Aerosol 2 (two) Puff Puff bid for 0 days Quantity: 3 {Puff} Refills: 0 Ordered:04-Sep-2016 Zane ZAVALA Sandra Roni ZAVALA Sandra Lockwood Start : 04-Sep-2016 End : 04-Sep-2016 Inactive Tamiflu 75 MG Oral Capsule 1 (one) Capsule Capsule bid for 5 days Quantity: 10 {Capsule} Refills: 0 Ordered:11-Jul-2016 Zane ZAVALA Sandra Roni ZAVALA Sandra Lockwood Start : 09-Jul-2016 End : 14-Jul-2016 Inactive Tessalon Perles 100 MG Oral Capsule 1 (one) Capsule tid prn cough for 10 days Quantity: 30 {Capsule} Refills: 0 Ordered:10-Mar-2018 Zane ZAVALA Sandra Roni ZAVALA Sandra Lockwood Start : 10-Mar-2018 End : [...] Quantity: 120 {Tablet} Refills: 0 Ordered:22-Jul-2017 Zane RCIS, Sandra NOÉmayra RCIS, Pili Start : 22-Jul-2017 End : 21-Aug-2017 Inactive [...] : 21-Oct-2012 End : 24-Feb-2014 Discontinued Ergocalciferol 51812 UNIT Oral Capsule 1 Capsule twice weekly [...] days Quantity: 120 {Tablet} Refills: 3 Ordered:01-Jun-2016 Slarb GROUND WATER CONTRACTORYuniera Start : 30-Dec-2012 End : 01-Jun-2016 Discontinued Comments:Dr Ahumada Simvastatin 40 MG Oral Tablet 1 Tablet qod for 60 days Quantity: 30 {Tablet} Refills: 3 Ordered:14-May-2017 Christel Pantoja Start : 08-Feb-2017 End : 14-May-2017 Discontinued SPIRIVA HANDIHALER, 18MCG (Inhalation Capsule) 1 Capsule as needed for 0 days Quantity: 3 {Capsule} Refills: 3 Ordered:06-Sep-2015 Slarb ROSA, Nai Start : 23-Aug-2015 End : 06-Sep-2015 Discontinued Comments:Medication taken as needed. 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 Date Value Details 12-Feb-2018 Chest without Contrast Result: Comments: See Note; NOTES: [facility] Imaging Services [address] [place] [address] Chest without Contrast MR#: [id number] Acct: [id number] Name: TISH HULL Rep #: [id number] : 1950 F 67 From: Dayday Jurado PCP: Sandra Mark NP Status: REG CLI Study: Chest without Contrast Date of Exam: 02/12/18 Exam# [id number] Ordering Dr: Guido Hogue MD STUDY: CT [...] CC: Sandra Mark NP; Guido Hogue MD Pricing Manager: Signed 23-Jan-2018 Oncology Visit Report Result: Comments: See Note; NOTES: [facility] [address] [place], [place] [address]evelyn [place] [address] OFFICE VISIT Date of Service: 01/23/18 1611 MR#: [id number] Acct: [id number] Name: TISH HULL ep #: [id number] : 1950 From: Guido Hogue MD Age/Sex: [...] Code Visi t Office Visits / Consults: [id number] OV L4 Est 01/23/18 1620 <Electronically signed by Guido Hogue MD> Date Guido Hogue MD Cosigner Sig nature: Date (if applicable) CC: 17-Dec-2017 Knee 4 or More Views Result: Comments: See Note; NOTES: [facility] Imaging Services [address] [place] [address] Knee 4 or More Views MR#: [id number] Acct: [id number] Name: TISH HULL Rep #: [id number] : 1950 67 From: Fer Amos MD PCP: Sandra Mark NP Status: REG CLI Study: Knee 4 or More Views Date of Exam: 12/17/17 Exam# [id number] Ordering Dr: Lynda Suazo STUDY: X-RAY - [...] Service support , CC: Sandra Mark NP; HIDE EXAMINER-C Lynda Suazo Pricing Manager: Signed 18-Nov-2017 SCREENING MAMM (CAD), BILAT Result: Comments: See Note; NOTES: [facility] Imaging Services [address] [place] [address] SCREENING MAMM (CAD), BILAT MR#: [id number] Acct: [id number] Name: TISH HULL Rep #: [id number] : 1950 F 67 From: Xu Adams MD PCP: Sandra Mark NP Status: PRE CLI Study: SCREENING MAMM (CAD), BILAT Date of Exam: 11/18/17 Exam# [id number] Ordering Dr: Guido Hogue MD MAMM OGRAPHY [...] delay biopsy of a clinically suspicious abnormality. [id number] Electronically Signed: Xu Adams MD at 15:22 EDT Tel [phone], Service support , Fa x [phone] CC: Sandra Mark HIDE EXAMINER; Guido Hogue MD Pricing Manager: Signed 05-Oct-2017 PET/CT Tumor Base -Thigh Init Result: Comments: See Note; NOTES: [facility] Imaging [facility] [address] [place] [address] PET/CT Tumor Base -Thigh Init MR#: [id number] Acct: [id number] Name: TISH HULL Rep #: [id number] : 1950 F 66 From: Hossein Oneill DO PCP: Sandra Mark NP Status: REG CLI Study: PET/CT Tumor Base -Thigh Init Date of Exam: 10/07/17 Exam# [id number] Ordering Dr: Sandra Mark EXAMINATI ON: FDG [...] the axial skeletal structures. ORDER # : [id number] PET/PET/CT Tumor Base -Thigh Init IMPRESSION: 1. [...] Service support , CC: Sandra Mark NP Pricing Manager: Signed 23-Sep-2017 Chest WITH Contrast Result: Comments: See Note; NOTES: [facility] Imaging Services [address] [place] [address] Chest WITH Contrast MR#: [id number] Acct: [id number] Name: TISH HULL Rep #: [id number] OB: 1950 F 66 From: Vasu Wright MD PCP: Sandra Mark NP Status: REG CLI Study: Chest WITH Contrast Date of Exam: 09/23/17 Exam# [id number] Ordering Dr: Sandra Mark STUDY: CT CHEST [...] seen previously have not changed. N.B. : EBONY Guzman , Other, confirmed on 09/24/2017 22:2 7:32 (ET) that the referring physician received the results and did not require a verbal consultation. Electronically Signed: Vasu Wright, at 1:31 EDT Tel , Service support , N.B. : EBONY Guzman , Other, confirmed on 09/24/2017 22:27:32 (ET) that the referring physician received the results and did not require a verbal consultatio n. CC: Sandra Mark NP Pricing Manager: Signed 17-Jul-2017 Oncology Visit Report Result: Comments: See Note; NOTES: [facility] [address] [place] [address]. [place] [address] OFFICE VISIT Date of Service: 07/17/17 1446 MR#: [id number] Acct: [id number] Name: TISH HULL ep #: [id number] : 1950 From: Guido Hogue MD Age/Sex: [...] Chronic Code Visit Office Visits / Consults: 63451 OV L4 Est 07/17/17 1511 <Electronically signed by Guido Finn> Date Guido Hogue MD Cosigner Signature: Date (if applicable) CC: 16-Nov-2016 Breast Limited Unilateral Result: Comments: See Note; NOTES: [facility] Imaging Services [address] [place] [address] Breast Limited Unilateral MR#: [id number] Acct: [id number] Name: TISH HULL Rep #: [id number] : 1950 F 66 From: Xu Adams MD PCP: Sandra Mark Status: REG CLI Study: Breast Limited Unilateral Date of Exam: 11/16/16 Exam# [id number] Ordering Dr: Maeve Tarango STUDY: ULTR ASOUND [...] Xu Adams MD at 15:16 EDT Tel [phone], Service support , CC: Sandra Mark; Maeve Tarango Pricing Manager: Signed 16-Nov-2016 DIAG MAMM W/CAD, UNILAT Result: Comments: See Note; NOTES: [facility] Imaging Services [address] [place] [address] DIAG MAMM W/CAD, UNILAT MR#: [id number] Acct: [id number] Name: TISH HULL Rep #: [id number] : 1950 F 66 From: Xu Adams MD PCP: Sandra Mark Status: REG CLI Study: DIAG MAMM W/CAD, UNILAT Date of Exam: 11/16/16 Exam# [id number] Ordering Dr: Maeve Tarango MAMMOGRAPHY - U [...] Xu Adams MD at 15:24 EDT Tel [phone], Service supp ort , CC: Sandra Mark; Maeve Tarango Pricing Manager: Signed 09-Aug-2016 Chest WITH Contrast Result: Comments: See Note; NOTES: [facility] Imaging Services [address] [place] [address] Verdana 4d Chest WITH Contrast MR#: [id number] Acct: [id number] Name: TISH HULL Rep #: [id number] : 1950 F 65 From: Mario Horton MD PCP: Sandra Mark Status: REG CLI Study: Chest WITH Contrast Date of Exam: 08/09/16 Exam# [id number] Ordering Dr: Jean Carlos Clarke MD STUDY: [...] CC: Sandra sims; Jean Carlos Clarke MD Pricing Manager: Signed 09-Jul-2016 Chest PA and Lateral Result: Comments: See Note; NOTES: [facility] Imaging Services [address] [place] [address] Verdana 4d Chest PA and Lateral MR#: [id number] Acct: [id number] Name: TISH HULL Rep #: [id number] : 1950 F 65 From: Xu Adams MD PCP: Sandra Mark Status: REG CLI Study: Chest PA and Lateral Date of Exam: 07/09/16 Exam# [id number] Ordering Dr: Sandra Mark STUDY: X-RAY C [...] Xu Adams MD at 13:03 EDT Tel [phone], Service support [phone], CC: Sandra Mark Pricing Manager: Signed 07-Jun-2016 SCREENING MAMM (CAD), BILAT Result: Comments: See Note; NOTES: [facility] Imaging Services [address] [place] [address] Verdana 4d SCREENING MAMM (CAD), BILAT MR#: [id number] Acct: [id number] Name: TISH HULL Rep #: [id number] : 1950 F 65 From: Xu Adams MD PCP: Sandra Mark Status: REG CLI Study: SCREENING MAMM (CAD), BILAT Date of Exam: 06/07/16 Exam# [id number] Ordering Dr: Rona Tarango MAMMOGRAPHY - BILATERAL [...] delay biopsy of a clinically suspicious abnormality. [id number] Electronically Signed: Xu Adams MD at 8:17 EST Tel [phone], Service support [phone], CC: Sandra Mark; Maeve Tarango Pricing Manager: Signed 30-Apr-2016 Chest without Contrast Result: Comments: See Note; NOTES: [facility] Imaging Services [address] [place] [address] Verdana 4d Chest without Contrast MR#: [id number] Acct: [id number] Name: TISH HULL Rep #: [id number] : 1950 F 65 From: Lex Mosley MD PCP: Sandra Mark Status: REG CLI Study: Chest without Contrast Date of Exam: 04/30/16 Exam# [id number] Ordering Dr: Jean Carlos Clarke MD [facility] DY: CT CHEST WITHOUT CONTRAST REASON [...] at 7:24 EST , Service support [phone], CC: Sandra Mark; Jean Carlos Clarke MD Pricing Manager: Signed 12-Oct-2015 Dexa Bone Density Study (HP) Result: Comments: See Note; NOTES: [facility] Imaging Services [address] [place] [address] Verdana 4d Dexa Bone Density Study (HP) MR#: [id number] Acct: [id number] Name : TISH HULL Rep #: [id number] : 1950 F 64 From: Xu Adams MD PCP: Sandra Mark Status: REG CLI Study: Dexa Bone Density Study (HP) Date of Exam: 10/12/15 Exam# [id number] Ordering Dr: Trae Owen MD STUDY: DUAL [...] Xu Adams MD at 13:05 EDT Tel [phone], Service support [phone], CC: Sandra Owne Pricing Manager: Signed 26-May-2015 Bilat Diag Digital AND CAD Result: Comments: See Note; NOTES: [facility] Imaging Services [address] [place] [address] Verdana 4d Bilat Diag Digital AND CAD MR#: [id number] Acct: [id number] Name: TISH HULL Rep #: [id number] : 1950 F 64 From: Xu Adams MD PCP: Sandra Mark Status: REG CLI Study: Bilat Diag Digital AND CAD Date of Exam: 05/26/15 Exam# [id number] Ordering Dr: Deandra Ellison MD MAMMOGRAPHY - [...] Xu Adams MD at 9:06 EST Tel [phone], Service support [phone], CC: Sandra Mark; Deandra Ellison MD Pricing Manager: Signed 17-May-2015 Abdomen Complete Result: Comments: See Note; NOTES: [facility] Imaging Services [address] [place] [address] Verdana 4d Abdomen Complete MR#: [id number] Acct: [id number] Name: TISH HULL Rep #: [id number] : 1950 F 64 From: Jaclyn Rojas MD PCP: Sandra Mark Status: REG CLI Study: Abdomen Complete Date of Exam: 05/17/15 Exam# [id number] Ordering Dr: Sandra Mark STUDY: A BDOMINAL [...] at 14:26 EST Tel , Service support [phone], CC: Sandra Mark Pricing Manager: Signed 14-Oct-2014 History and Physical Exam Result: Comments: See Note; NOTES: [facility] Medical Records Department [address] [place] [address] History and Physical 10/14/14 1021 MR#: [id number] Acct: [id number] Name: TISH HULL Rep #: [id number] : 1950 64 From: Deandra Ellison MD PCP: Sandra Mark Status: REG CLI Y Location: [facility] History and Physical - Blank Date [...] to operative site, margins are ill defined, BRADMarlon 4 Past Medical History: H /O stage [...] Hx of NEOPLASM, MALIGNANT, BREAST, CENTRAL (ICD-174.1) (MKN22-R77.119) See below. Problem # 2: Other (abnormal) findings on radiological examination of breast (ICD-793.89) ( SML39-S69.8) I have discussed above with the patient [...] Operative Report Result: Comments: See Note; NOTES: [facility] Medical Records Department [address] [place] [address] Operative Report 10/12/14 1154 MR#: [id number] Acct: [id number] Name: TISH HULL Rep #: [id number] : 1950 63 From: Deandra Ellison MD PCP: Sandra Mark Status: REG CLI Y Location: [facility] Report of Operation Date of Procedure: [...] Procedure: After informed consent was given, the lorna estrada was brought to the ultrasound suite, and [...] 1st Lesion Result: Comments: See Note; NOTES: [facility] Imaging Services [address] [place] [address] Ultrasound Report MR#: [id number] Acct: [id number] Name: TISH HULL Rep #: [id number] : 1950 F 63 From: Xu Adams MD PCP: Sandra Mark Status: REG CLI Study: US Breast Biopsy 1st Lesion Date of Exam: 10/12/14 Exam# [id number] Ordering Dr: Deandra Ellison MD STUDY : [...] Xu Adams MD at 10:43 EDT Tel [phone], Service support [phone], CC: Sandra Mark; Deandra Ellison MD Pricing Manager: Signed 01-Oct-2014 Breast Limited Unilateral Result: Comments: See Note; NOTES: [facility] Imaging Services [address] [place] [address] Ultrasound Report MR#: [id number] Acct: [id number] Name: TISH HULL Rep #: [id number] : 1950 F 63 From: Xu Adams MD PCP: Sandra Mark Status: REG CLI Study: Breast Limited Unilateral Date of Exam: 10/01/14 Exam# [id number] Ordering Dr: Trae Owen MD STUDY : [...] Xu Adams MD at 14:52 EDT Tel [phone], Service support [phone], CC: Sandra Mark; Trae Owen Pricing Manager: Signed 01-Oct-2014 Unilat Lt Diag Digital AND CAD Result: Comments: See Note; NOTES: [facility] Imaging Services [address] [place] [address] Breast Imaging Report MR#: [id number] Acct: [id number] Name: TISH HULL Rep #: : 1950 F 63 From: Xu Adams MD PCP: Sandra Mark Status: REG CLI Study: Unilat Lt Diag Digital AND CAD Date of Exam: 10/01/14 Exam# [id number] Ordering Dr: Trae Owen MD MAMMOGRAPHY - [...] Xu Adams MD at 14:29 EDT Tel [phone], Service support [phone], CC: Sandra Owen Pricing Manager: Signed 07-Sep-2014 PT Discharge Summary Result: Comments: See Note; NOTES: [facility] [address] [place] [address]. [address] [place] [address] Fax REHABILITATION SERVICES DISCHARGE SUMMARY MR#: [id number] Acct: [id number] Name: TISH HULL Rep #: [id number] : 1950 63 From: Ainsley Ingram Referring Dr.: Sandra Mark Status: PRE RCR Eval Date: Discharge Da te: DATE OF SERVICE: Date of initial evaluation is July 20, 2014. The patient attended physical therapy for initial evaluation and has not returned since. PT feels it is appropriate she be dis charged from [facility]. Ainsley Ingram DPT T: CHAPIN JOB: [id number] <Electronically signed by Ainsley Ingram > 09/07/14 1459 CC: Signed 20-Jul-2014 Inital Evaluation - PT Result: Comments: See Note; NOTES: [facility] [address] [place] [address] Fax REHABILITATION SERVICES INITIAL EVALUATION MR#: [id number] Acct: [id number] Name: TISH HULL Rep #: [id number] : 1950 63 From: Ainsley Ingram Referring Dr.: Sandra Mark Status: REG RCR Insurance: [employer] [facility] Eval Date: DATE OF SERVICE: 07/20/2014 Tish [...] pain. Ainsley Ingram DPT T: CHAPIN JOB: [id number] <Electronically signed by Ainsley Ingram > 5 2828 CC: Signed For Medicare only, by signing this I certify the plan of care. Physicians Signature Date 14-Jul-2014 Knee 4 or More Views Result: Comments: See Note; NOTES: [facility] Imaging Services [address] [facility] [place] [address] Radiology Report MR#: [id number] Acct: [id number] Name: TISH HULL Rep #: [id number] : 1950 F 63 From: Nasir Rodriguez DO PCP: Sandra Mark Status: REG CLI Study: Knee 4 or More Views Date of Exam: 07/14/14 Exam# [id number] Ordering Dr: Sandra Mark STUDY: X-RAY - [...] Nasir Rodriguez DO at 15:14 EDT Tel [phone], Service support [phone], RAD/Knee 4 or More Views IMPRESSION: Degenerative arthrosis. Electronically Signed: Nasir Rodriguez DO at 15:14 EDT Tel [phone], Service support [phone], Fax CC: Sandra Mark Pricing Manager: Signed 24-May-2014 Bilat Diag Digital AND CAD Result: Comments: See Note; NOTES: [facility] Imaging Services [address] [address] Breast Imaging Report MR#: [id number] Acct: [id number] Name: TISH HULL Rep #: [id number] : 1950 F 63 From: Xu dAams MD PCP: Sandra Mark Status: REG CLI Study: Bilat Diag Digital AND CAD Date of Exam: 05/24/14 Exam# [id number] Ordering Dr: Trae Owen MD M AMMOGRAPHY [...] Xu Adams MD at 9:22 EST Tel [phone], Service suppo rt [phone], CC: Sandra Mark; Trae Owen Pricing Manager: Signed 04-Sep-2013 Breast Unilateral Result: Comments: See Note; NOTES: [facility] Imaging Services [address] [place] [address] Ultrasound Report MR#: [id number] Acct: [id number] Name: TISH HULL Rep #: [id number] : 1950 F 62 From: Xu Adams MD PCP: Sandra Mark Status: REG CLI Study: Breast Unilateral Date of Exam: 09/04/13 Exam# [id number] Ordering Dr: Trae Owen MD STUDY: ULTRASO UND BREAST(S) - LEFT REASON FOR EXAM: Female, 62 years old. Palpable lump left breast. TECHNIQUE: Axial and longitudinal images of the LEFT breast were performed with a high resolution ultrasound t [facility]. COMPARISON: Comparison is made with prior mammogram [...] Xu Adams MD at 14:14 EDT Tel [phone], Service support [phone], CC: Sandra Mark; Trae Owen Pricing Manager: Signed 04-Sep-2013 Bilat Dianeil Digital & CAD Result: Comments: See Note; NOTES: [facility] Imaging Services [address] [place] [address] Breast Imaging Report MR#: [id number] Acct: [id number] Name: TISH HULL Rep #: [id number] : 1950 F 62 From: Xu Adams MD PCP: Sandra Mark Status: REG CLI Exam# [id number] Ordering Dr: Trae Owen MD MAMMOGRAPHY - BILATERAL DIAGNOSTIC REASON FOR EXAM: Fempadmaja joy, 62 years old. Left breast lump. [...] Xu Adams MD at 15:01 EDT Tel [phone], Service support [phone], CC: Sandra Mark; Trae Owen Pricing Manager: Signed 04-Sep-2013 Bilat Diag Digital & CAD Result: Comments: See Note; NOTES: [facility] Imaging Services [address] [place] [address] Breast Imaging Report MR#: [id number] Acct: [id number] Name: TISH HULL Rep #: [id number] : 1950 F 62 From: Xu Adams MD PCP: Sandra Mark Status: REG CLI Exam# [id number] Ordering Dr: Trae Owen MD ADDENDUM by Xu Adams MD on 09/07/13 at 1603 === ADDENDUM This is an addendum report. The report is dictated for clarity of the laterality. The pa tient is status post left lumpectomy and not the right lumpectomy. Electronically Signed: Xu Adams MD at 16:03 EDT Tel [phone], Service support [phone], Fax 09/07/13 1612 Date cc: Sandra Owen [...] Xu Adams MD at 15:01 EDT Tel [phone], Service s upport [phone], CC: Sandra Owen Pricing Manager: Signed Family History Unknown Family Member Name Dates Details Daughter 1 Comments: fibromyalgia, stiff man syndrome, lupus Status: Active Daughter 2 Comments: ET, MCTD ( lupus, RA) Status: Active Father Comments: CHF, tremor, HTN, [place] Status: Active Sister 1 Comments: Br Ca Status: Active Sister 2 Comments: lupus Status: Active Son 1 Comments: DM Status: Active Social History Name Dates Details Caffeine Use Status: Active 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 [...] 1.85 m2 Results Date Description Value Details 38-Qim-351012:36 CBC W/Diff, Automated Comments: Reason for Laboratory Test .[facility] [address] [place], [place], [id number] Absolute Lymph 1.42 {X10_3/ul} (Normal) Range: 0.83-4.51 [...] 4.2-5.4 WBC 10.3 K/mm3 (Normal) Range: 4.4-11.0 15-Nyc-757418:36 Comprehensive Metabolic Profil Comments: Reason for Laboratory Test .[facility] [address]dg[address] [place], [address] GAP 6 (Normal) Range: 5-15 CO2 27.0 [...] A.D.A. criteria.Please note revised GLUCOSE reference range lliktdxaw54/02/2018. 00-Lsm-720755:45 URINE FABIAN CULTURE-IDENTIFICATN Comments: PATIENT NOT FASTINGPERFORMED BY: [facility] Tzrlpt2534 [facility] [id number] Information: SRC:ALLA (53299) Antimicrobial MIHEAD (Normal) Comments: S = Susceptible; [...] Proteusmirabilis. (Abnormal) Urine Final report Culture,Comprehensive (Abnormal) 26-Mgq-839789:24 Urinalysis, Office (05579) UA - LEUKOCYTE ESTERASE Trace (Normal) UA - NITRITE Negative (Normal) URINE UROBILINGN DC TIMED Normal mg/dL (Normal) UA - PROTEIN Negative mg/dL (Normal) UA - PH 7 (Normal) UA - BLOOD Hemolyzed Trace (Normal) UA - SPECIFIC GRAVITY 1.015 (Normal) UA - KETONES Negative mg/dL (Normal) UA - BILIRUBIN Negative (Normal) UA - GLUCOSE Negative (Normal) 22-Mij-761706:23 HgA1C , Office (15740) HgA1C , Office 5.8 % (Normal) Range: 4.6 - 7.1 07-Ssa-477067:23 Blood Glucose , Office (28010) Blood Glucose , Office 117 (Normal) 80-Aiq-432433:47 CREATININE FINGERSTICK Comments: [facility] LaboratoryPoint of [address] [place], [place] [address] EGFR WB > 60.0000 mL/min (Normal) CREATININE WB 0.9 mg/dL (Normal) Range: 0.55-1.02 :04 HgA1C , Office (48782) HgA1C , Office 5.7 % (Normal) Range: 4.6 - 7.1 :04 Blood Glucose , Office (83093) Blood Glucose , Office 108 (Normal) 71-Rvo-584937:50 CBC W/Diff, Automated Comments: Reason for Laboratory Test .[facility] [address] [place], [address] Absolute Lymph 1.83 {X10_3/ul} (Normal) [...] 4.2-5.4 WBC 6.5 K/mm3 (Normal) Range: 4.4-11.0 77-Cud-685746:50 Comprehensive Metabolic Profil Comments: Reason for Laboratory Test .[facility] [address] [place], [place], [address] GAP 7 (Normal) Range: 5-15 CO2 31.0 mmol/L (Normal) Range: 21.0-32.0 CL 97 mmol/L (Abnormal) Range: 98-107 K 4.0 mmol/L (Normal) Range: 3.5-5.1 NA 135 mmol/L (Abnormal) Range: 136-145 T BILI 0.60 mg/dL (Normal) Range: 0.20-1.00 ALT 20 U/L (Normal) Range: 13-56 Comments: Please note revised ALT reference range /28/2018. ALK P 135 U/L (Abnormal) Range: 45-117 [...] Comments: Please note revised GLUCOSE reference range jublmzfxi38/02/2018. :32 HgA1C , Office (83061) Comments: 5.7 HgA1C , Office 5.7 % (Normal) Range: 4.6 - 7.1 :32 Blood Glucose , Office (73262) Blood Glucose , Office 141 (Normal) Comments: fasting 68-One-384663:04 Microscopic Examination Comments: PATIENT WAS FASTINGPERFORMED BY: [facility] [id number] Bacteria None seen (Normal) Mucus Threads Present (Normal) Epithelial Cells (non renal) 0-10 {/hpf} (Normal) Range: 0 - 10 RBC None seen {/hpf} (Normal) Range: 0 - 2 WBC 11-30 {/hpf} (Abnormal) Range: 0 - 5 04-Bxe-898694:04 URINALYSIS (06130) Comments: Mar or Apr 2017; PATIENT WAS FASTINGPERFORMED BY: [facility] [id number] Microscopic Examination See below: (Normal) Comments: Microscopic was indicated and was performed. Nitrite, Urine Negative (Normal) Urobilinogen,Semi-Qn 0.2 mg/dL (Normal) Range: 0.2-1.0 Bilirubin Negative (Normal) Occult Blood Trace (Abnormal) Ketones Negative (Normal) Glucose Negative (Normal) Protein Negative (Normal) WBC Esterase 2+ (Abnormal) Appearance Clear (Normal) Urine-Color Yellow (Normal) pH 7.5 (Normal) Range: 5.0-7.5 Specific [place]hall 1.012 (Normal) Range: 1.005-1.030 79-Wue-287339:04 MICROALBUMIN: CREATININE RATIO Comments: MarApr 2017; PATIENT WAS FASTINGPERFORMED BY: [facility] [id number] (46362) AND (56287) Alb/Creat Ratio 12.7 {mg/g_creat} (Normal) Range: 0.0-30.0 Albumin, Urine 6.3 ug/mL (Normal) Creatinine, Urine 49.6 mg/dL (Normal) 06-Bwu-849650:04 LIPID PANEL (84936) Comments: Fasting Mar or Apr 2017; PATIENT WAS FASTINGPERFORMED BY: [facility]Etkufr4354 [facility] [id number] LDL/HDL Ratio 2.3 {ratio_units} (Normal) Range: 0.0-3.2 Comments: LDL/HDL Ratio Men Women 1/2 Avg.Risk 1.0 1.5 Av g.Risk 3.6 3.2 2X Avg.Risk 6.2 5.0 3X Avg.Risk 8.0 6.1 LDL Cholesterol Calc 91 mg/dL (Normal) Range: 0-99 VLDL Cholesterol Bella 14 mg/dL (Normal) Range: 5-40 HDL Cholesterol 39 mg/dL (Abnormal) Triglycerides 69 mg/dL (Normal) Range: 0-149 Cholesterol, Total 144 mg/dL (Normal) Range: 100-199 29-Htk-549080:04 CALCIFEDIOL (47141) Comments: Mar or Apr 2017; PATIENT WAS FASTINGPERFORMED BY: [facility] Mxnutp4389 [facility] [id number]; OV 2/6 Vitamin D, 25-Hydroxy 48.9 ng/mL (Normal) Range: 30.0-100.0 Comments: Vitamin D deficiency has been defined by the [place] ofMedicine and an Endocrine Society practice guideline as alevel of serum 25-OH vitamin D less than 20 ng/mL (1,2).The Endocrine Society went on to further define vitamin Dinsufficiency as a level between 21 and 29 ng/mL (2).1. IOM ([place] of Medicine). 2010. Dietary reference intakes for calcium and D. [place]: The National Academies Press.2. Carlitos MF, Rene LAUREANO, Garth CARROLL, et al. Evaluation, treatment, and prevention of vitamin D deficiency: an Endocrine Society clinical practice guideline. JCEM. 2010; 96(7):1911-30. 07-Zfj-120826:04 TSH (39932) Comments: Mar or Apr 2017; PATIENT WAS FASTINGPERFORMED BY: 51eduPlains Regional Medical CenterJqrlfa9103 [facility] [id number] TSH 1.660 {uIU/mL} (Normal) Range: 0.450-4.500 42-Zed-683437:04 Metabolic Panel, Comprehensive Comments: Mar or Apr 2017; PATIENT WAS FASTINGPERFORMED BY: 51edu Ltgvwp8004 [facility] [id number] (84898) ALT (SGPT) 16 [iU]/L (Normal) Range: 0-32 [...] Glucose, Serum 100 mg/dL (Abnormal) Range: 65-99 86-Mdp-019653:04 CBC, Platelets & Auto Diff Comments: Mar or Apr 2017; PATIENT WAS FASTINGPERFORMED BY: 51edu Xclhcj4320 [facility] [id number] (69674) Immature Grans (Abs) 0.0 {x10E3/uL} (Normal) Range: [...] (Normal) Range: 3.4-10.8 :45 HgA1C , Office (01906) HgA1C , Office 5.8 % (Normal) Range: 4.6 - 7.1 :45 Blood Glucose , Office (26997) Blood Glucose , Office 110 (Normal) 5-Fyi-492466:33 CBC W/Diff, Auto - EPLAB Comments: Order Date: 05/10/16Order Info: [id number] - *CBC w/Diff - oncology ONLYAt [facility] Outpatient [facility] Oncologypatients receive CBC w/auto Differential ONLY. Physicianwill place an order fo Only r a manual differential or Pathologistreview at his discretion. [facility]. [address] [place] [address] LABELLING MACHINE OPERATOR: STEVIE COTA DO PH:[phone] [facility] [address]uft[address] [place], [address] Absolute Lymph 2.40 {X10_3/uL} (Normal) [...] 4.2-5.4 WBC 8.9 K/mm3 (Normal) Range: 4.4-11.0 3-Rxf-064566:33 Comprehensive Metabolic Profil Comments: Order Date: 05/10/16Order Info: [id number] - *CMP Complete Metabolic PanelWCincinnati Shriners Hospital [address]qdhjkwenn7[address] [place], [place], [address] GAP 5 (Normal) Range: 5-15 CO2 33.0 [...] 7-18 GLU 108 mg/dL (Normal) Range: 70-110 5-Bbs-819902:33 Vitamin D,25 Hydroxy Comments: Order Date: 05/10/16Order Info: [id number] - *Vitamin D (Calciferol)[facility] [address]su[address] [place], [place], [address] Vitamin D 25-OH 37.0 ng/mL (Normal) Comments: Vitamin D 25(OH) Status Range Deficiency <20 ng/mL (50nmol/L) Insuffciency 20 - 30 ng/mL (50 - 75 nmol/L) Sufficiency 30 - 100 ng/mL (75 - 250 nmol/L) Toxicity >100 ng/mL (>250 nmol/L) 11-Sep-20168:37 Metabolic Panel, Comprehensive Comments: September 11; PATIENT WAS FASTINGPERFORMED BY: LabBonnie [place] 0251970 [facility] [id number] (57625) ALT (SGPT) 17 [iU]/L (Normal) Range: 0-32 [...] (Abnormal) Range: 65-99 :57 HgA1C , Office (85944) HgA1C , Office 5.9 % (Normal) Range: 4.6 - 7.1 :57 Blood Glucose , Office (09835) Blood Glucose , Office 118 (Normal) :30 Serum Creatinine AND GFR Comments: [facility] [address] [place], [place], [address] EST GFR - AA 87 mL/min (Normal) Comments: GFR Calc EST GFR 72 mL/min (Normal) Comments: Non- GFR Calc CREAT,SERUM 0.84 mg/dL (Normal) Range: 0.55-1.02 Comments: The validity of the calculated GFR AND GFRAA in patients over70 years has not been determined. Clinical correlation isessential. : Culture, Blood (WB) Comments: [facility] [address] [place], [place], [address] CUB See Note (Normal) Comments: BCNo growth in 5 days. :27 Culture, Blood (WB) Comments: [facility] [address] [place], [address] CUB See Note (Normal) Comments: BCNo growth in 5 days. 8-Bvr-145488: COMPLEMENT C4 (14626) Comments: PATIENT NOT FASTINGPERFORMED BY: [facility] [id number] Complement C4, Serum 36 mg/dL (Normal) Range: 14-44 3-Hbb-412164:01 COMPLEMENT C3 (99919) Comments: PATIENT NOT FASTINGPERFORMED BY: Mashalotrp Adcpxo2245 [facility] [id number] Complement C3, Serum 185 mg/dL (Abnormal) Range: 82-167 6-Zpn-829400:01 COMPLEMENT, TOTAL (CH50) Comments: PATIENT NOT FASTINGPERFORMED BY: Mashalotrp Qfdlgx2509 [facility] [id number] (93554) Complement, Total (CH50) 56 U/mL (Normal) Range: 42-60 1-Gzt-786042:01 Sed Rate Erythrocyte (44569) Comments: PATIENT NOT FASTINGPERFORMED BY: [facility] LabImpland[facility] Productsrp Ksdzmy4953 [facility] [id number] Sedimentation Rate-Westergren 50 mm/h (Abnormal) Range: 0-40 4-Hcs-170192:01 CBC, Platelets & Auto Diff Comments: PATIENT NOT FASTINGPERFORMED BY: Mashalotrp Sjdplg9926 [facility] [id number] Information: [id number], [id number] SRC:TH (92625) Immature Grans (Abs) 0.0 {x10E3/uL} (Normal) Range: [...] 3.77-5.28 WBC 13.6 {x10E3/uL} (Abnormal) Range: 3.4-10.8 3-Cat-069263:49 Rapid Flu (24182 x 2) Comments: ? borderline Influenza A Ag neg a/b (Normal) :01 Influenza A&B Viral Culture Comments: PATIENT NOT FASTINGPERFORMED BY: [facility])Csosld5323 [facility] [id number] (88533) Viral Culture,Rapid,Influenza FLUABN (Normal) Comments: Negative:No Influenza A or B detected. :53 Urinalysis, Office (45710) UA - LEUKOCYTE ESTERASE Small (Normal) UA - NITRITE Negative (Normal) URINE UROBILINGN DC TIMED Normal mg/dL (Normal) UA - PROTEIN Negative mg/dL (Normal) UA - PH 8.0 (Normal) UA - BLOOD Non Hemolyzed Trace (Normal) UA - SPECIFIC GRAVITY 1.015 (Normal) UA - KETONES Negative mg/dL (Normal) UA - BILIRUBIN Small (Normal) UA - GLUCOSE Negative (Normal) 1-Efs-635435:01 URINE FABIAN CULTURE-IDENTIFICATN Comments: PATIENT NOT FASTINGPERFORMED BY: [facility] [id number] (51866) Antimicrobial MIHEAD (Normal) Comments: S = Susceptible; [...] mL (Abnormal) Urine Final report Culture,Comprehensive (Abnormal) 2-Fmc-262334:01 CULTURE, SPUTUM (66447) Comments: PATIENT NOT FASTINGPERFORMED BY: [facility]6370 [facility] [id number] Result 1 HAEMIN (Abnormal) Comments: Haemophilus influenzaeModerate [...] negative. Lower Respiratory Final report Culture (Abnormal) 5-Buc-318743:28 Blood Glucose , Office (16667) Blood Glucose , Office 109 (Normal) 53-Xnk-984436:48 HgA1C , Office (88450) HgA1C , Office 6.0 % (Normal) Range: 4.6 - 7.1 80-Bxm-823806:48 Blood Glucose , Office (07475) Blood Glucose , Office 152 (Normal) 53-Vft-668077:23 CBC W/Diff, Auto - EPLAB Comments: At [facility] Oncologypatients receive CBC w/auto Differential ONLY. Physicianwill place an order for a manual differential or Pathologistreview at his discretion. [facility]. [address] [place] [place] [address] LABELLING MACHINE OPERATOR: STEVIE COTA DO PH:[phone] State East Hospital [address]rfnjc[address] [place], [place], [address] ; another doc Absolute Lymph 2.39 {X10_3/uL} [...] 4.2-5.4 WBC 7.6 K/mm3 (Normal) Range: 4.4-11.0 07-Fdo-264597:23 Comprehensive Metabolic Profil Comments: Order Date: 11/03/15Interface Comments: STATOrder Date: 11/03/15[facility] [address] [place], [address] ; another doc GAP 8 (Normal) Range: [...] 7-18 GLU 101 mg/dL (Normal) Range: 70-110 14-Pew-434943:23 Vitamin D 1,25-Dihydroxy Comments: Order Date: 11/03/15Order Date: 11/03/15Interface Comments: STATOrder Date: 11/03/15[facility] (refer to report for specific site)refer to report for address and phone number; another doc VITD 1,25 94510 27.8 pg/mL (Normal) Range: 19.9-79.3 Comments: Performed at: [address] [id number] Director: Sascha Cedeno MD, Phone: [phone] 13-Gwe-314854:01 HgA1C , Office (88874) Comments: 5.8 HgA1C , Office 5.8 % (Normal) Range: 4.6 - 7.1 :43 Microscopic Examination Comments: PATIENT WAS FASTINGPERFORMED BY: [facility] Wzkhag0316 [address] [place] [id number] Bacteria Few (Normal) Mucus Threads Present (Normal) Epithelial Cells (non renal) None seen {/hpf} (Normal) Range: 0 - 10 RBC None seen {/hpf} (Normal) Range: 0 - 2 WBC 0-5 {/hpf} (Normal) Range: 0 - 5 :43 Lipid Panel (28212) Comments: PATIENT WAS FASTINGPERFORMED BY: [facility]Impl[facility] Qcxspw6682 [facility] [id number] LDL/HDL Ratio 1.7 {ratio_units} (Normal) Range: 0.0-3.2 [...] 116 mg/dL (Normal) Range: 100-199 :43 CALCIFEDIOL (00474) Comments: PATIENT WAS FASTINGPERFORMED BY: [facility] Bzackq4078 [facility] [id number] Vitamin D, 25-Hydroxy 62.9 ng/mL (Normal) Range: 30.0-100.0 Comments: Vitamin D deficiency has been defined by the [place] ofMedicine and an Endocrine Society practice guideline as alevel of serum 25-OH vitamin D less than 20 ng/mL (1,2).The Endocrine Society went on to further define vitamin Dinsufficiency as a level between 21 and 29 ng/mL (2).1. IOM ([place] of Medicine). 2010. Dietary reference intakes for calcium and D. [place]: The National Academies Press.2. Carlitos MF, Rene LAUREANO, Garth CARROLL, et al. Evaluation, treatment, and prevention of vitamin D deficiency: an Endocrine Society clinical practice guideline. JCEM. 2010; 96(7):1911-30. :43 URINALYSIS, W/ MICRO (71806) Comments: PATIENT WAS FASTINGPERFORMED BY: [facility] [id number] Microscopic Examination See below: (Normal) Comments: Microscopic was indicated and was performed. Microscopic Examination MICRON (Normal) Comments: Microscopic follows if indicated. Nitrite, Urine Negative (Normal) Urobilinogen,Semi-Qn 1.0 mg/dL (Normal) Range: 0.2-1.0 Bilirubin Negative (Normal) Occult Blood Negative (Normal) Ketones Negative (Normal) Glucose Negative (Normal) Protein Negative (Normal) WBC Esterase Negative (Normal) Appearance Clear (Normal) Urine-Color Yellow (Normal) pH 6.5 (Normal) Range: 5.0-7.5 Specific [place]hall 1.007 (Normal) Range: 1.005-1.030 :43 MICROALBUMIN: CREATININE RATIO Comments: PATIENT WAS FASTINGPERFORMED BY: [facility] [id number] (04667) AND (98299) Microalb/Creat Ratio <11.2 {mg/g_creat} (Normal) Range: 0.0-30.0 Microalbumin, Urine <3.0 ug/mL (Normal) Creatinine, Urine 26.8 mg/dL (Normal) :43 TSH (THYROID STIMULATING Comments: PATIENT WAS FASTINGPERFORMED BY: [facility] [id number] HORMONE) (14122) TSH 0.992 {uIU/mL} (Normal) Range: 0.450-4.500 :43 Metabolic Panel, Comments: PATIENT WAS FASTINGPERFORMED BY: JJ [facility] Vucfhu7948 [facility] [id number] Information: HARD DRAW Comprehensive (95064) ALT (SGPT) 21 [iU]/L (Normal) Range: 0-32 [...] (Normal) Range: 65-99 :09 HgA1C , Office (49169) Comments: 6.2 HgA1C , Office 6.2 % (Normal) Range: 4.6 - 7.1 :09 Blood Glucose , Office (62699) Blood Glucose , Office 123 (Normal) :36 CBC W/Diff, Auto - EPLAB Comments: At [facility] Outpatient Center [facility] Oncologypatients receive CBC w/auto Differential ONLY. Physicianwill place an order for a manual differential or Pathologistreview at his discretion. [facility]. [address] [place] [address] [address] LABELLING MACHINE OPERATOR: STEVIE COTA DO PH:[phone] State East Hospital [address]dcykusata[address] [place], [address] Absolute Lymph 2.15 {X10_3/uL} (Normal) [...] 4.2-5.4 WBC 7.9 K/mm3 (Normal) Range: 4.4-11.0 9-Qtm-163753:32 Comprehensive Metabolic Profil Comments: Order Date: 11/03/15OV Order #: [id number] Specimen #1, #2 or #3? 1 [id number] State East Hospital Glypvttxsq14[address] [place], [id number] GAP 6 (Normal) Range: 5-15 CO2 31.0 [...] (Normal) Comments: Order Date: 11/03/15OV Order #: [id number] Specimen #1, #2 or #3? [id number] [place] [address] [place], [place], [address] Range: 84-246 :32 Uric Acid Comments: Order Date: 11/03/15OV Order #: [id number] Specimen #1, #2 or #3? [id number] [place] [address] [place], [place], [phone] URIC 5.4 mg/dL (Normal) Range: 2.6-6.0 Comments: The drugs N-Acetylcysteine and Metamizole may falsely deressthis assay. 4-Uim-373483:00 Vancomycin, Trough Level Comments: Comments: FAX REPORT TO SANDRA MARK HIDE EXAMINER [phone] AND [facility] RXOhio [facility] Hospital [address]vfyeqpy[address] [place], [place], [address] VANCO, TROUGH 14.7 ug/mL (Normal) Range: 5.0-15.0 Comments: VANCOMYCIN STANDARED DRUG THERAPY TROUGH LEVEL: 5.0 - 15.0 mg/LVANCOMYCIN HIGH INTENSITY THERAPY TROUGH LEVEL: 15.0 - 20 .0 mg/LHigh Intensity therapy recommended for serious lifethreatening infections include:- Dkbuogkeud-Hgdhgycwhkjq-Pqlgwysmw (Ventilator/Healtcare Associated)- SepsisPLEASE CONTACT PHARMACY SERVICES (#1273) FOR INTERPRETATIONOF RESULTS. 94-Cwb-446764:21 M R Staph Aureus DNA by PCR Comments: Source: NASAL SWABOhio State East Hospital Ehsoeikirf[address] [place], [address] MRSA RESULT POSITIVE (Abnormal) 86-Rea-669912:22 Aerobic Bacterial Culture Comments: send for MRSA left flank; PATIENT NOT FASTINGPERFORMED BY: [facility]Pyrucv5753 [facility] [id number] Information: SRC:MADDIE [id number] (55037) Result 1 MRSA (Abnormal) Comments: Methicillin - [...] S Aerobic Bacterial Final report (Abnormal) Culture 28-Tyn-23648:03 HgA1C , Office (00273) Comments: 6.0 HgA1C , Office 6.0 % (Normal) Range: 4.6 - 7.1 :03 Blood Glucose , Office (24440) Blood Glucose , Office 120 (Normal) :01 POTASSIUM SERUM (75536) Comments: STAT; [facility] [address] [place], [address] K 4.8 mmol/L (Normal) Range: 3.5-5.1 :40 Metabolic Panel, Comments: PATIENT WAS FASTINGPERFORMED BY: [facility] Esiubs5366 [facility] [id number] Information: [id number] Comprehensive (08905) ALT (SGPT) 21 [iU]/L (Normal) Range: 0-32 [...] (Abnormal) Range: 65-99 :40 HEPATIC FUNCTION PANEL (61497) Comments: PATIENT WAS FASTINGPERFORMED BY: [facility] [id number] Bilirubin, Direct 0.17 mg/dL (Normal) Range: 0.00-0.40 :40 Lipid Panel (08667) Comments: PATIENT WAS FASTINGPERFORMED BY: [place] 9491170 [facility] [id number] LDL/HDL Ratio 1.6 {ratio_units} (Normal) Range: 0.0-3.2 [...] 128 mg/dL (Normal) Range: 100-199 :36 TSH (71621) Comments: PATIENT WAS FASTINGPERFORMED BY: [facility]6370 [facility] [id number] TSH 1.320 {uIU/mL} (Normal) Range: 0.450-4.500 9-Pwm-237037:36 MICROALBUMIN: CREATININE RATIO Comments: PATIENT WAS FASTINGPERFORMED BY: [place] 9491170 [facility] [id number] (70212) AND (03799) Microalb/Creat Ratio <4.6 {mg/g_creat} (Normal) Range: 0.0-30.0 Microalbumin, Urine <3.0 ug/mL (Normal) Range: 0.0-17.0 Creatinine, Urine 64.9 mg/dL (Normal) Range: 15.0-278.0 :36 LIPID PANEL (45236) Comments: PATIENT WAS FASTINGPERFORMED BY: [facility] [id number] Information: [id number] LDL/HDL Ratio 2.9 {ratio_units} (Normal) Range: 0.0-3.2 [...] Cholesterol, Total 200 mg/dL (Abnormal) Range: 100-199 7-Wrn-646978:36 CALCIFEDIOL (45310) Comments: PATIENT WAS FASTINGPERFORMED BY: [facility]6370 [facility] [id number] Vitamin D, 25-Hydroxy 35.2 ng/mL (Normal) Range: 30.0-100.0 Comments: Vitamin D deficiency has been defined by the [place] ofMedicine and an Endocrine Society practice guideline as alevel of serum 25-OH vitamin D less than 20 ng/mL (1,2).The Endocrine Society went on to further define vitamin Dinsufficiency as a level between 21 and 29 ng/mL (2).1. IOM ([place] of Medicine). 2010. Dietary reference intakes for calcium and D. [place]: The National Academies Press.2. Carlitos MF, Rene NC, Peter-Jimmy CARROLL, et al. Evaluation, treatment, and prevention of vitamin D deficiency: an Endocrine Society clinical practice guideline. JCEM. 2010; 96(7):1911-30. 69-Khj-672645:16 CBC W/Diff, Auto - EPLAB Comments: At [facility] Outpatient [facility] Medical Oncologypatients receive CBC w/auto Differential ONLY. Physicianwill place an order for a manual differential or Pathologistreview at his discretion. [facility]. [address] [place] [address] LABELLING MACHINE OPERATOR: STEVIE COTA DO PH:[phone] State East Hospital [address]bjptahyd[address] [place], [address] Absolute Lymph 2.05 {X10_3/uL} (Normal) [...] 4.2-5.4 WBC 6.4 K/mm3 (Normal) Range: 4.4-11.0 98-Rii-505525:14 Comprehensive Metabolic Profil Comments: Serial Specimen #1, #2 or #3? 1[facility] [address]wyxfe[address] [place], [place], [address] GAP 8 (Normal) Range: 5-15 CO2 30.0 [...] 7-18 GLU 94 mg/dL (Normal) Range: 70-110 64-Dhj-236301:14 LDH 176 U/L (Normal) Comments: Serial Specimen #1, #2 or #3? [address] [place] [address] Dbijovyrdx5508 [facility] CampusmnadieUnion Hall, [place], [address] Range: 84-246 47-Sim-525950:14 Uric Acid Comments: Serial Specimen #1, #2 or #3? [address] [place] [address] Sfpvcgzlbr3349 [place], [place], [address] URIC 6.1 mg/dL (Abnormal) Range: 2.6-6.0 25-Yfm-949394:14 Vitamin D 1,25-Dihydroxy Comments: [facility] (refer to report for specific site)refer to report for address and phone number; ordered by another doctor VITD 1,25 40755 69.0 pg/mL (Normal) Range: 19.9-79.3 Comments: Performed at: [address] [id number] Director: Sascha Cedeno MD, Phone: [id number] 90-Zzj-290612:20 HgA1C , Office (10879) HgA1C , Office 6.1 % (Normal) Range: 4.6 - 7.1 40-Qvj-284913:20 Blood Glucose , Office (49559) Blood Glucose , Office 89 (Normal) 07-Orf-791002:53 CALCIFEDIOL (88311) Comments: PATIENT WAS FASTINGPERFORMED BY: [facility][id number] [facility] [id number] Vitamin D, 25-Hydroxy 23.0 ng/mL (Abnormal) Range: 30.0-100.0 Comments: Vitamin D deficiency has been defined by the [place] of[place]icine and an Endocrine Society practice guideline as alevel of serum 25-OH vitamin D less than 20 ng/mL (1,2).The Endocrine Society went on to further define vitamin Dinsufficiency as a level between 21 and 29 ng/mL (2).1. IOM ([place] of Medicine). 2010. Dietary reference intakes for calcium and D. [place]: The National Academies Press.2. Carlitos MF, Rene NC, Garth CARROLL, et al. Evaluation, treatment, and prevention of vitamin D deficiency: an Endocrine Society clinical practice guideline. JCEM. 2010; 96(7):1911-30. 57-Uxv-521028:53 Lipid Panel (85478) Comments: PATIENT WAS FASTINGPERFORMED BY: [facility][id number] [facility] [id number] Information: [id number] LDL/HDL Ratio 2.8 {ratio_units} Range: 0.0-3.2 (Normal) [...] (CHOOSE See Note (Normal) Comments: Test performed at:[facility] [address] [facility] [address] 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 GROSS DESCRIPTION Received is one container labeled with the patient name and designated left breast. The specimen consists of multiple elongated fragments of martinez-yellow fibroadipose tissue measuring in aggregate 2.5 x 0.5 x 0.1 cm. The specimen is totally submitted in one cassette. / MARISSA:laura 10/12/14 TC:3 CPT: 67132 HEADER OPERATION: U/S guided left breast biopsy [...] Signed Shayan Ching 10/13/14 <signature on file> 7-Yqa-613144:16 Comprehensive Metabolic Profil Comments: Serial Specimen #1, #2 or #3? 1Test performed at:[facility] [address] [place], [place] [address] GAP 6 (Normal) Range: 5-15 CO2 28.0 [...] 7-18 GLU 97 mg/dL (Normal) Range: 70-110 :16 LDH 189 U/L (Normal) Comments: Serial Specimen #1, #2 or #3? 1Test performed at:[facility] [address] [facility] [place] [address] Range: 87-241 3-Xdy-278830:16 Uric Acid Comments: Serial Specimen #1, #2 or #3? 1Test performed at:[facility] [address] [facility] [place] [address] URIC 5.5 mg/dL (Normal) Range: 2.6-6.0 :05 CBC W/Diff, Auto - EPLAB Only Comments: At [facility]patient [facility] Medical Oncologypatients receive CBC w/auto Differential ONLY. Physicianwill place an order for a manual differential or Pathologistreview at his discretion. [facility]. [address] [place] [place] [address] LABELLING MACHINE OPERATOR: STEVIE COTA DO PH:[phone] performed at:[facility] [address]ato [address] [place] [address] Absolute Neut 2.7 {X10_3/uL} (Normal) Range: 2.0-7.7 [...] 4.2-5.4 WBC 4.8 K/mm3 (Normal) Range: 4.4-11.0 75-Lgu-46048:00 Culture, Wound Comments: Test performed at:[facility] [address] [place] [address] CUW See Note (Normal) Comments: Comments: RIGHT [...] 1 S(NF) in dicates non-formulary drug at [facility]. Approval by Infectious Disease Specialist required before non-formulary drugs may be ordered and/or dispensed. * CLSI guidelines does not recommend testing of cephalosporins. This interpretation is deduced from Beta-lactam/penicillin results. 76-Qki-048398:16 Anaerobic & Aerobic Comments: R leg; PATIENT NOT FASTINGPERFORMED BY: [facility] Sfxzcg1732 [facility] [id number] Information: SRC:MADDIE [id number] RIGHT LEG Culture (67969) Result 1 MRSA (Abnormal) Comments: Methicillin - [...] mmol/L (Normal) Range: 3.5-5.1 :12 :13 CALCIFEDIOL (63419) Comments: PATIENT NOT FASTINGPERFORMED BY: [facility]6370 [facility] [id number] Information: [id number] Vitamin D, 25-Hydroxy 23.8 ng/mL (Abnormal) Range: 30.0-100.0 Comments: Vitamin D deficiency has been defined by the [place] of[place]icine and an Endocrine Society practice guideline as alevel of serum 25-OH vitamin D less than 20 ng/mL (1,2).The Endocrine Society went on to further define vitamin Dinsufficiency as a level between 21 and 29 ng/mL (2).1. IOM ([place] of [employer]). 2010. Dietary reference intakes for calcium and D. [place]: The National Academies Press.2. Carlitos MF, Rene LAUREANO, Garth CARROLL, et al. Evaluation, treatment, and prevention of vitamin D deficiency: an Endocrine Society clinical practice guideline. JCEM. 2010; 96(7):1911-30. 82-Cry-966476:04 CBC, Platelets & Auto Comments: pls send copy to Dr epperson; Test(s) Potassium, Serum called to Dr Felix on 12/21/2013 at 23:26 ESTPATIENT NOT FASTINGPERFORMED BY: [facility]Aesbaq0136 [facility] [id number] Information: [id number] Diff (95823) Immature Grans (Abs) 0.0 {x10E3/uL} (Normal) Range: [...] 3.77-5.28 WBC 5.2 {x10E3/uL} (Normal) Range: 3.4-10.8 93-Rit-433024:04 Metabolic Panel, Comprehensive Comments: pls send copy to dr epperson; Test(s) Potassium, Serum called to Dr Felix on 12/21/2013 at 23:26 ESTPATIENT NOT FASTINGPERFORMED BY: [facility]Ldcgjy8659 [facility] [id number] (12743) ALT (SGPT) 15 [iU]/L (Normal) Range: 0-32 [...] Glucose, Serum 79 mg/dL (Normal) Range: 65-99 98-Uvk-328732:04 HEPATIC FUNCTION PANEL Comments: pls send copy to Dr Epperson; Test(s) Potassium, Serum called to Dr Felix on 12/21/2013 at 23:26 ESTPATIENT NOT FASTINGPERFORMED BY: [facility] Lovexu4420 [facility] [id number] (96299) Bilirubin, Direct 0.09 mg/dL (Normal) Range: 0.00-0.40 54-Baa-30140:55 CMP Comments: Serial Specimen #1, #2 or [...] (Normal) Range: 70-110 :55 ECBCD Comments: At [facility] Outpatient [facility], Dr Lang patients receiveCBC w/auto Differential ONLY. He will place an order for amanual differential or Pathologist review at his discretion.[facility].[address] [place], [place] [address]RHK DIRECTOR: STEVIE COTA PH:[phone] ANC 5.3 {X10_3/uL} (Normal) Range: 2.0-7.7 B% [...] Comments: pls also fax to Dr epperson- [phone]; PATIENT NOT FASTINGPERFORMED BY: [facility]Xpqtyq4319 [facility] [id number] Information: [id number] CC:[id number] (64859) Immature Grans (Abs) 0.0 {x10E3/uL} (Normal) Range: [...] pls also fax results to Dr epperson- [phone]; PATIENT NOT FASTINGPERFORMED BY: [facility]Eudzbv0454 [facility] [id number] (91613) ALT (SGPT) 17 [iU]/L (Normal) Range: 0-32 [...] (THYROID STIMULATING Comments: PATIENT NOT FASTINGPERFORMED BY: [employer] Oynrff9083 [facility] [id number] HORMONE) (21779) TSH 1.350 {uIU/mL} (Normal) Range: 0.450-4.500 :46 CALCIFEDIOL (35840) Comments: PATIENT NOT FASTINGPERFORMED BY: [facility]edu[facility] CenterOobeow8976 [facility] [id number] Vitamin D, 25-Hydroxy 30.9 ng/mL (Normal) Range: 30.0-100.0 Comments: Vitamin D deficiency has been defined by the [place] of[place] and an Endocrine Society practice guideline as alevel of serum 25-OH vitamin D less than 20 ng/mL (1,2).The Endocrine Society went on to further define vitamin Dinsufficiency as a level between 21 and 29 ng/mL (2).1. IOM ([place] of [place]). 2010. Dietary reference intakes for calcium and D. [place]: The National Academies Press.2. Carlitos JULIAN, Rene LAUREANO, Garth CARROLL, et al. Evaluation, treatment, and prevention of vitamin D deficiency: an Endocrine Society clinical practice guideline. JCEM. 2010; 96(7):1911-30. 39-Mox-905425:28 HgA1C , Office (96216) HgA1C , Office 5.3 % (Normal) Range: 4.6 - 7.1 :36 Renal function Panel Comments: PATIENT NOT FASTINGPERFORMED BY: [employer] [id number] Information: ADD [id number] AND DRAW FEE 99 2285 (04658) Albumin, Serum 4.2 g/dL (Normal) Range: 3.6-4.8 [...] Glucose, Serum 114 mg/dL (Abnormal) Range: 65-99 99-Hnf-129798:36 CALCIFEDIOL (38900) Comments: PATIENT NOT FASTINGPERFORMED BY: [employer]6370 [facility] [id number] Vitamin D, 25-Hydroxy 29.9 ng/mL (Abnormal) Range: 30.0-100.0 Comments: Vitamin D deficiency has been defined by the [place] of[place] and an Endocrine Society practice guideline as alevel of serum 25-OH vitamin D less than 20 ng/mL (1,2).The Endocrine Society went on to further define vitamin Dinsufficiency as a level between 21 and 29 ng/mL (2).1. IOM ([place]). 2010. Dietary reference intakes for calcium and D. [place]: The National Academies Press.2. Carlitos JULIAN, Rene LAUREANO, Garth CARROLL, et al. Evaluation, treatment, and prevention of vitamin D deficiency: an Endocrine Society clinical practice guideline. JCEM. 2010; 96(7):1911-30. 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 Indication: Smoking addiction Hypertension, benign : [...] an appt for this saturday am with [facility] Indication: COPD (chronic obstructive pulmonary disease) Knee pain, right : Follow up in 1 month with [facility] for Gen Med Indication: Knee pain, right Knee pain, right : Follow up if no improvement or if symptoms worsen Indication: Knee pain, right Knee pain, right : Reviewed [employer] Letter Indication: Knee pain, right Knee pain, [...] antibody) Planned Observations Blood Glucose , Office (01831)Indication: Abnormal glucose tolerance test (GTT) On: 14-Apr-20189:37 Request HgA1C , Office (71406)Indication: Abnormal glucose tolerance test (GTT) On: 14-Apr-20189:37 Request MICROALBUMIN: CREATININE RATIO (93006) AND (51116)Indication: SOB (shortness of breath) On: 06-Sep-20179:47 Request TSH (91864)Indication: SOB (shortness of breath) On: 06-Sep-20179:47 Request FABIAN CULTURE-BLOOD (60827)Indication: Elevated WBC count On: 9-Fuj-489279:29 Request FABIAN CULTURE-BLOOD (09850)Indication: Elevated WBC count On: 5-Dql-370421:29 Request MRSA Culture (08969)Indication: Cellulitis of trunk, unspecified site of trunk On: 86-Bzv-287613:04 Request Comments: nose HgA1C , Office (17642)Indication: Prediabetes On: 1-Zcl-919324:02 Request MRSA Culture (04708)Indication: Cellulitis On: 22-Ued-90651:40 Request FABIAN CULTURE-OTHER (36966)Indication: Cellulitis On: 69-Veu-44859:39 Request POTASSIUM SERUM (78653)Indication: Hyperkalemia On: 49-Kkc-60298:14 Request Comments: pls call results to [phone] Planned Encounters Medical; 3 Month FU - On: 14-Jul-2018 9:30 Comprehensive Internal Medicine Ciesa RCIS, PiliMandie Mark CNP Pili Planned Procedures Flu Vaccine (Quadrivalent) 43346Ig: On: 25-Dec-2017 Intent Zane ZAVALA PiliSandra Baltazar CNP PHYSICAL THERAPY (02870)By: Gabriele, On: 17-Dec-2017 Intent Lynda Radiology - Knee - RightBy: Gabriele, On: 17-Dec-[address] THORAX W CONTRAST (63856)By: On: 11-Oct-2017 Intent Sandra Mark CNP, CNP, Mary E Comments: new rt lower 4.5mm lung nodule ordered by Dr. Brittney shrestha in October of 2016 CT chest without contrast PET-CT ENTIRE BODY (11897)By: Zane On: 24-Sep-2017 Intent SALLY PiliMandie Mark CNP Pili CONTINUOUS OVERNIGHT PULSE OXIMETRY On: 06-Sep-2017 Intent (91631)By: Sandra Mark CNP, CNP, Mary E CT - Chest (IV Contrast Needed)By: On: 06-Sep-2017 Intent Sandra Mark CNP, CNP Pili CONTINUOUS OVERNIGHT PULSE OXIMETRY On: 06-Sep-2017 Intent (01177)By: Sandra Mark CNP, CNP Pili Spirometry (10056)By: Zane ZAVALA On: 06-Sep-2017 Intent Sandra Mark CNP Pili Six Minute Walk Assessment On: 06-Sep-2017 Intent (74567)By: Sandra Mark CNP, CNP, Mary E Flu Vaccine (Quadrivalent) 21477Ff: On: 01-Jan-2017 Intent Nai Trevizo LPN Comments: InfluenzaLot #[id number]-09/23/18Site-R dltd, IMDose prefilled syringeVIS and ABN signedgiven by:ROSA gallardo Spirometry (07644)By: Zane ZAVALA, On: 04-Sep-2016 Intent Sandra Muhammad CNP Comments: severe airway obstruction with low vital capacity Aerosol Treatment (07724)By: Zane On: 04-Sep-2016 Intent Sandra ZAVALA CNP, Mary E Aerosol Treatment (46843)By: Zane On: 11-Jul-2016 Intent RCIS, PiliSandra Baltazar CNP Radiology - ChestBy: Zane ZAVALA Sandra On: 09-Jul-2016 Intent E Zane ZAVALA Pili Aerosol Treatment (18165)By: Zane On: 09-Jul-2016 Intent SALLY PiliMandie Mark CNP Pili Flu Vaccine (Quadrivalent) 91960Dy: On: 07-Feb-2016 Intent Sandra Mark CNP, CNP Pili Comments: Lot:[id number]:10/05/16Dose:0.5mLRoute:IMSite:r DltdGiven By:Emely signed Rocephin Injection, 2 Gram On: 06-Sep-2015 Intent (J0696)By: Sandra Mark CNP, CNP, Mary E Ultrasound - Abdomen CompleteBy: On: 13-May-2015 Intent Sandra Mark CNP, CNP, Mary E Venous Doppler - RightBy: Znae ZAVALA, On: 13-May-2015 Intent Sandra Muhammad CNP PHYSICAL THERAPY EVALUATION On: 14-Jul-2014 Intent (09896)By: Sandra Mark CNP, CNP, Mary E Radiology - Knee - RightBy: Zane On: 14-Jul-2014 Intent Sandra ZAVALA CNP, Mary E IV Needle placement (73698)By: On: 24-Feb-2014 Intent Sandra Mark CNP, CNP, Mary E Comments: 22G insyte initiated in R medial wrist, no s/s infiltration, redness, swelling, dsg dry intact, infusing on gravity pole at 48gtts/min- catheter removed intact, tolerated well- 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 Injection, 2 Gram On: 24-Feb-2014 Intent (J0696)By: Sandra Mark CNP Comments: lot # [id number]- 09/06/16site-R medial wrist route-IVdose- 2G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 Sandra ZAVALA ELECTROCARDIOGRAM, COMPLETE (ECG) On: 22-Dec-2013 Intent (57135)By: Sandra Mark CNP, CNP, Mary E FLU VAC, SPLIT, >3 YEARS, INTRAMUSC On: 30-Dec-2012 Intent (66091)By: Leslie Roberts LPN Comments: Lot:[id number]:Dose:0.5mLRoute:IMSite:L DltdGiven By:DELILAH signed IMMUNIZ ADMNIN, 1 VAC, SNGL/COMBO On: 30-Dec-2012 Intent (60579)By: Leslie Roberts LPN Planned Medications INJECTION, CEFTRIAXONE SODIUM, PER 250 MG Ordered: 24-Feb-2014 Pending Ciesa RCIS, Pili Ciesa RCIS, Pili INJECTION, CEFTRIAXONE SODIUM, PER 250 MG Ordered: 06-Sep-2015 Pending Ciesa RCIS, Pili Ciesa RCIS, Pili Instructions Name Dates Details Smoker : How [...] benign : DISCONTINUED - METABOLIC PANEL, COMPREHENSIVE (13102) Indication: Hypertension, benign Hypertension, benign : DISCONTINUED - CBC with auto diff (74297) Indication: Hypertension, benign Hyperglycemia : How to [...] Advance Directives Name Dates Details Immunization Registry [place] - Effective on Effective: 01-Jan-201801/01/2018. Expiration date unspecified Encounters Office Visit On: 14-Apr-2018 9:33 Encounter Reason: [...] night. Nutrition: balanced diet. The medical issues th e patient is following up for include [...] patient does not have durable power of city attorney or 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 Other providers contributing to the patient's car e are bushwalking guide (Merlyn) and other: (Lexie, Dr owen, Family Life Counselor. Dr. Ahumada neurology. )., [ADDITIONAL REASON] Follow [...]
--- OUTSIDE RECORDS SUMMARY | 2018-07-02 03:38 | XMS RPT_ITS | Continuity of Care Document ---
:1950 Author Organization [facility] Address [address] [place] [address] Phone Care Team Providers Name Role Phone [...] Comments: lumpectomy and lymph node dissection seeing NET DEVELOPER Farzaneh Median on anastrazole, saw Scot in past, now [...] left breast, radiation in 4 weeks, seeign [place] Status: Active Hidradenitis suppurativa (L73.2, 705.83) Comments: [...] knee brace for stablizaiton will send to [facility], going to [facility]. Status: Active Lower urinary [...] day now will DC it since on [id number] ago started tremor,improvement with propraololwas using cane [...] daily for 360 days Refills: 0 Ordered:01-Jan-2017 Mireyaozzyjamaal ZAVALA Sandra Tamayo SALLY Sandra Lockwood Start : 01-Jan-2017 Active Comments:Dr Dionna Osullivan Aerosphere 9-4.8 MCG/ACT Inhalation Aerosol 2 (two) Puff bid for 30 days Quantity: 2 {Inhaler} Refills: 3 Ordered:23-Sep-2017 Mireyaozzyjamaal ZAVALA Sandra Tamayo SALLY Sandra Lockwood Start [...] Quantity: 60 {Tablet} Refills: 6 Ordered:25-Dec-2017 Sandra Degroot CNP, CNP, Mary E Start : 25-Dec-2017 Active Lasix 20 MG [...] Ordered:10-Feb-2018 Nancy Marcial Start : 25-Dec-2017 Active Tessalon Perles 100 MG Oral Capsule 1 (one) Capsule tid prn cough for 10 days Quantity: 30 {Capsule} Refills: 0 Ordered:10-Mar-2018 Zane ZAVALA, Sandra Munguia CNP Start : 10-Mar-2018 Active VITAMIN C ER, 500MG (Oral Tablet Extended Release) 1 daily (500 MG) Active Vitamin D3 2000 UNIT Oral Capsule 1 (one) Capsule daily for 0 days Quantity: 30 {Capsule} Refills: 0 Ordered:01-Jan-2017 Sandra Degroot CNP, CNP, Mary E Start : 01-Jan-2017 Active Amoxicillin-Pot Clavulanate 875-125 MG Oral Tablet 1 (one) Tablet bid for 7 days Quantity: 14 {Tablet} Refills: 0 Ordered:30-Dec-2017 Sandra Degroot CNP, CNP, Mary E Start : 30-Dec-2017 End : 06-Jan-2018 Inactive AUGMENTIN, 875-125MG (Oral Tablet) 1 (one) Tablet bid for 7 days Quantity: 14 {Tablet} Refills: 0 Ordered:01-Mar-2014 Sandra Degroot CNP, CNP, Mary E Start : 01-Mar-2014 End : 08-Mar-2014 Inactive BACTRIM DS, 800-160MG (Oral Tablet) 1 (one) Tablet Tablet bid for 10 days Quantity: 20 {Tablet} Refills: 0 Ordered:10-Sep-2015 CAPRI Manning Start : 06-Sep-2015 End : 10-Sep-2015 Inactive CEFADROXIL, 500MG (Oral Capsule) 1 (one) Capsule bid for 7 days Quantity: 14 {Capsule} Refills: 0 Ordered:24-Feb-2014 Sandra Degroot CNP, CNP, Mary E Start : 24-Feb-2014 End : 03-Mar-2014 Inactive Cefdinir 300 MG Oral Capsule 1 (one) Capsule Capsule bid for 7 days Quantity: 14 {Capsule} Refills: 0 Ordered:13-Jul-2016 Sandra Degroot CNP, CNP, Mary E Start [...] Quantity: 1 {Bottle} Refills: 0 Ordered:17-Dec-2017 Long Irish LEE Start : 14-May-2017 End : 17-Dec-2017 Inactive [...] Start : 09-Jul-2016 End : 14-Jul-2016 Inactive TOPICORT, 0.25% (External Cream) 1 (one) Cream Cream bid for 0 days Quantity: 1 {Tube} Refills: 0 Ordered:10-Sep-2015 CAPRI Manning Start : 23-Aug-2015 End : 10-Sep-2015 Inactive Comments:Large tube twice daily x 2 weeks for body TraMADol HCl 50 MG Oral Tablet 1 Tablet three times daily, as needed for 30 days Quantity: 120 {Tablet} Refills: 0 Ordered:22-Jul-2017 Zane SALLY, Sandra Tamayo SALLY, Sandra Lockwood Start : 22-Jul-2017 End [...] : 21-Oct-2012 End : 24-Feb-2014 Discontinued Ergocalciferol 35886 UNIT Oral Capsule 1 Capsule twice weekly [...] 60 {Tablet} Refills: 3 Ordered:23-Aug-2015 Jose Guadaluperb ROSA, Nai Start : 21-Oct-2012 End : 23-Aug-2015 Discontinued METHOTREXATE, 2.5MG (Oral Tablet) 1 (one) Tablet 8 tab once a week for 360 days Refills: 0 Ordered:24-May-2015 Slarb LEAD GAME DESIGNER, Nai Start : 14-Jul-2014 End : 24-May-2015 Discontinued Comments:Dr epperson MUPIROCIN, 2% (External Ointment) 1 (one) Ointment Ointment daily for 0 days Quantity: 1 {Tube} Refills: 0 Ordered:03-Sep-2014 Santhosh LEE Nai Start : 25-Aug-2014 End : 03-Sep-2014 Discontinued Comments:Apply small amt to end of Qtip apply to each nares, umbilicus, and rectum daily x 5 days PredniSONE 10 MG Oral Tablet 1 Tablet 1bid x 3 days 1 daily x 3 days 1/2 x 3 days for 0 days Quantity: 12 {Tablet} Refills: 0 Ordered:01-Jan-2017 Santhosh LEE, Nai Start : 29-Oct-2016 End : 01-Jan-2017 [...] Quantity: 120 {Tablet} Refills: 3 Ordered:01-Jun-2016 Slarb LEAD GAME DESIGNER, Nai Start : 30-Dec-2012 End : 01-Jun-2016 [...] flank area cellulitis, positive MRSA, recieved September 10, 7 days Status: Inactive as of 01-Jan-2017 [...] on bactrim[facility] left inner thigh had bactrim and cefdinir then, around Feb 2015 Status: Inactive as of 10-Sep-2015 Osteoarthritis (M19.90, 715.90) Status: Inactive as of 10-Sep-2015 Positive MIMI (antinuclear antibody) (R76.8, 795.79) Comments: ezequiel Rivers pos MIMI Status: Inactive as of 01-Jan-2017 [...] Dr Ellison Salpingectomy; Unilateral 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 Date Value Details 12-Feb-2018 Chest without Contrast Result: Comments: See Note; NOTES: [facility] Imaging Services [address] [place] [address] Chest without Contrast MR#: [id number] Acct: [id number] Name: TISH MALAVE Rep #: [id number] : 1950 F 67 From: Dayday Jurado PCP: Sandra Degroot NP Status: REG CLI Study: Chest without Contrast Date of Exam: 02/12/18 Exam# [id number] Ordering Dr: Guido Hogue MD STUDY: CT [...] EST , Service support , CC: Sandra Degroot NET DEVELOPER; Guido Hogue MD Business Objects Analyst: Signed 23-Jan-2018 Oncology Visit Report Result: Comments: See Note; NOTES: [facility] [address] [place] [address] OFFICE VISIT Date of Service: 01/23/18 1611 MR#: [id number] Acct: [id number] Name: TISH MALAVE ep #: [id number] : 1950 From: Guido Hogue MD Age/Sex: [...] uninvolved. Biology proved ER positi ve (95%) ND positive (5%) and HER2-griffin nonamplified by FISH. [...] Code Visi t Office Visits / Consults: [id number] OV L4 Est 01/23/18 1620 <Electronically signed by Guido Hogue MD> Date Guido Hogue MD Cosigner Sig nature: Date (if applicable) CC: 17-Dec-2017 Knee 4 or More Views Result: Comments: See Note; NOTES: [facility] Imaging Services [address] [place] [address] Knee 4 or More Views MR#: [id number] Acct: [id number] Name: TISH MALAVE Rep #: [id number] : 1950 F 67 From: Fer Amos MD PCP: Sandra Degroot NP Status: REG CLI Study: Knee 4 or More Views Date of Exam: 12/17/17 Exam# [id number] Ordering Dr: Lynda Suazo NET DEVELOPER-C STUDY: X-RAY - RIGHT KNEE REASON FOR [...] , CC: Sandra Degroot NP; VALENTE Suazo Business Objects Analyst: Signed 18-Nov-2017 SCREENING MAMM (CAD), BILAT Result: Comments: See Note; NOTES: [facility] Imaging Services [address] [place] [address] SCREENING MAMM (CAD), BILAT MR#: [id number] Acct: [id number] Name: TISH MALAVE Rep #: [id number] : 1950 F 67 From: Xu Adams MD PCP: Sandra Degroot NP Status: PRE CLI Study: SCREENING MAMM (CAD), BILAT Date of Exam: 11/18/17 Exam# [id number] Ordering Dr: Guido Hogue MD MAMM OGRAPHY [...] delay biopsy of a clinically suspicious abnormality. [id number] Electronically Signed: Xu Adams MD at 15:22 EDT Tel [phone], Service support , Fa x [phone] CC: Sandra Degroot NP; Guido Hogue MD Business Objects Analyst: Signed 05-Oct-2017 PET/CT Tumor Base -Thigh Init Result: Comments: See Note; NOTES: [facility] Imaging Services [address] [place] [address] PET/CT Tumor Base -Thigh Init MR#: [id number] Acct: [id number] Name: TISH MALAVE Rep #: [id number] : 1950 F 66 From: Hossein Oneill DO PCP: Sandra Degroot NP Status: REG CLI Study: PET/CT Tumor Base -Thigh Init Date of Exam: 10/07/17 Exam# [id number] Ordering Dr: Sandra Degroot ON: FDG PET/CT INDICATIONS: A 66-year-old female [...] the axial skeletal structures. ORDER # : [id number] PET/PET/CT Tumor Base -Thigh Init IMPRESSION: 1. [...] Service support , CC: Sandra Degroot NP Business Objects Analyst: Signed 23-Sep-2017 Chest WITH Contrast Result: Comments: See Note; NOTES: [facility] Imaging Services [address] [place] [address] Chest WITH Contrast MR#: [id number] Acct: [id number] Name: TISH MALAVE Joshua Rep #: [id number] OB: 1950 F 66 From: Vasu Wright MD PCP: Sandra Degroot NP Status: REG CLI Study: Chest WITH Contrast Date of Exam: 09/23/17 Exam# [id number] Ordering Dr: Sandra Degroot STUDY: CT CHEST [...] not changed. N.B. : EBONY Guzman , Tre, confirmed on 09/24/2017 22:2 7:32 (ET) that the referring physician received the results and did not require a verbal consultation. Electronically Signed: Liztonzayra MooneyJayce, at 1:31 EDT Tel , Service support , N.B. : EBONY Guzman , Other, confirmed on 09/24/2017 22:27:32 (ET) that the referring physician received the results and did not require a verbal consultatio n. CC: Sandra Degroot NP Business Objects Analyst: Signed 17-Jul-2017 Oncology Visit Report Result: Comments: See Note; NOTES: [facility] [address] [place] [address] OFFICE VISIT Date of Service: 07/17/17 1446 MR#: [id number] Acct: [id number] Name: TISH MALAVE ep #: [id number] : 1950 From: Guido Hogue MD Age/Sex: [...] were uninvolved. Biology proved ER positive (95%) ND positive (5%) and HER2-griffin nonampl ified by [...] Chronic Code Visit Office Visits / Consults: [id number] OV L4 Est 07/17/17 1511 <Electronically signed by Guido Finn> Date Gu[facility]ogue [facility] Signature: Date (if applicable) CC: 16-Nov-2016 Breast Limited Unilateral Result: Comments: See Note; NOTES: [facility] Imaging Services [address] [place] [address] Breast Limited Unilateral MR#: [id number] Acct: [id number] Name: TISH MALAVE Rep #: [id number] : 1950 F 66 From: Xu Adams MD PCP: Sandra Degroot Status: REG CLI Study: Breast Limited Unilateral Date of Exam: 11/16/16 Exam# [id number] Ordering Dr: Maeve Tarango STUDY: ULTR ASOUND [...] Xu Adams MD at 15:16 EDT Tel [phone], Service support , CC: Sandra Degroot; Maeve Tarango Business Objects Analyst: Signed 16-Nov-2016 DIAG MAMM W/CAD, UNILAT Result: Comments: See Note; NOTES: [facility] Imaging Services [address] [place] [address] DIAG MAMM W/CAD, UNILAT MR#: [id number] Acct: [id number] Name: TISH MALAVE Rep #: [id number] : 1950 F 66 From: Xu Adams MD PCP: Sandra Degroot Status: REG CLI Study: DIAG MAMM W/CAD, UNILAT Date of Exam: 11/16/16 Exam# [id number] Ordering Dr: Maeve Tarango MAMMOGRAPHY - U [...] Xu Adams MD at 15:24 EDT Tel [phone], Service supp ort , CC: Sandra Degroot; Maeve Tarango Business Objects Analyst: Signed 09-Aug-2016 Chest WITH Contrast Result: Comments: See Note; NOTES: [facility] Imaging Services [address] [place] [address] Verdana 4d Chest WITH Contrast MR#: [id number] Acct: [id number] Name: TISH MALAVE Rep #: [id number] : 1950 F 65 From: Mario Horton MD PCP: Sandra Degroot Status: REG CLI Study: Chest WITH Contrast Date of Exam: 08/09/16 Exam# [id number] Ordering Dr: Jean Carlos Clarke MD STUDY: [...] EDT , Service support , CC: Sandra Clarke MD Business Objects Analyst: Signed 09-Jul-2016 Chest PA and Lateral Result: Comments: See Note; NOTES: [facility] Imaging Services [address] [place] [address] Verdana 4d Chest PA and Lateral MR#: [id number] Acct: [id number] Name: TISH MALAVE Rep #: [id number] : 1950 F 65 From: Xu Adams MD PCP: Sandra Degroot Status: REG CLI Study: Chest PA and Lateral Date of Exam: 07/09/16 Exam# [id number] Ordering Dr: Sandra Degroot STUDY: X-RAY C [...] Xu Adams MD at 13:03 EDT Tel [phone], Service support [phone], CC: Sandra Degroot Business Objects Analyst: Signed 07-Jun-2016 SCREENING MAMM (CAD), BILAT Result: Comments: See Note; NOTES: [facility] Imaging Services [address] [place] [address] Verdana 4d SCREENING MAMM (CAD), BILAT MR#: [id number] Acct: [id number] Name: TISH MALAVE Rep #: [id number] : 1950 F 65 From: Xu Adams MD PCP: Sandra Degroot Status: REG CLI Study: SCREENING MAMM (CAD), BILAT Date of Exam: 06/07/16 Exam# [id number] Ordering Dr: Rona Tarango MAMMOGRAPHY - BILATERAL [...] delay biopsy of a clinically suspicious abnormality. [id number] Electronically Signed: Xu Adams MD at 8:17 EST Tel [phone], Service support [phone], CC: Sandra Degroot; Maeve Tarango Business Objects Analyst: Signed 30-Apr-2016 Chest without Contrast Result: Comments: See Note; NOTES: [facility] Imaging Services [address] [place] [address] Verdana 4d Chest without Contrast MR#: [id number] Acct: [id number] Name: TISH MALAVE Rep #: [id number] : 1950 F 65 From: Lex oMsley MD PCP: Sandra Degroot Status: REG CLI Study: Chest without Contrast Date of Exam: 04/30/16 Exam# [id number] Ordering Dr: Jean Carlos Clarke MD SANTA [...] MD at 7:24 EST , Service support , CC: Sandra Degroot; Jean Carlos Clarke MD Business Objects Analyst: Signed 12-Oct-2015 Dexa Bone Density Study (HP) Result: Comments: See Note; NOTES: [facility] Imaging Services [address] [place] [address] Verdana 4d Dexa Bone Density Study (HP) MR#: [id number] Acct: [id number] Name : TISH MALAVE Rep #: [id number] : 1950 F 64 From: Xu Adams MD PCP: Sandra Degroot Status: REG CLI Study: Dexa Bone Density Study (HP) Date of Exam: 10/12/15 Exam# [id number] Ordering Dr: Trae Owen MD STUDY: DUAL [...] Xu Adams MD at 13:05 EDT Tel [phone], Service support [phone], CC: Sandra Degroot; Trae Owen Business Objects Analyst: Signed 26-May-2015 Bilat Diag Digital AND CAD Result: Comments: See Note; NOTES: [facility] Imaging Services [address] [place] [address] Verdana 4d Bilat Diag Digital AND CAD MR#: [id number] Acct: [id number] Name: TISH MALAVE Rep #: [id number] : 1950 F 64 From: Xu Adams MD PCP: Sandra Degroot Status: REG CLI Study: Bilat Diag Digital AND CAD Date of Exam: 05/26/15 Exam# [id number] Ordering Dr: Deandra Ellison MD MAMMOGRAPHY - [...] Xu Adams MD at 9:06 EST Tel [phone], Service support [phone], CC: Sandra Degroot; Deandra Ellison MD Business Objects Analyst: Signed 17-May-2015 Abdomen Complete Result: Comments: See Note; NOTES: [facility] Imaging Services [address] [place] [address] Verdana 4d Abdomen Complete MR#: [id number] Acct: [id number] Name: TISH MALAVE Rep #: [id number] : 1950 F 64 From: Jaclyn Rojas MD PCP: Sandra Dergoot Status: REG CLI Study: Abdomen Complete Date of Exam: 05/17/15 Exam# [id number] Ordering Dr: Sandra Degroot STUDY: A BDOMINAL [...] at 14:26 EST Tel , Service support [phone], CC: Sandra Degroot Business Objects Analyst: Signed 14-Oct-2014 History and Physical Exam Result: Comments: See Note; NOTES: [facility] Medical Records Department [address] [place] [address] History and Physical 10/14/14 1021 MR#: [id number] Acct: [id number] Name: TISH MALAVE Rep #: [id number] : 1950 64 From: Deandra Ellison MD PCP: Sandra Degroot Status: REG CLI Y Location: [facility] History and Physical - Blank Date of [...] 1cm) N0 (3 SLN negative) ER 95% ND 5%, Her2-negative Hypertension Asthma/COPD Past Surgical History: [...] Hx of NEOPLASM, MALIGNANT, BREAST, CENTRAL (ICD-174.1) (TKR73-J71.119) See below. Problem # 2: Other (abnormal) findings on radiological examination of breast (ICD-793.89) ( EZM59-N19.8) I have discussed above with the patient [...] Operative Report Result: Comments: See Note; NOTES: [facility] Medical Records Department [address] [place] [address] Operative Report 10/12/14 1154 MR#: [id number] Acct: [id number] Name: TISH MALAVE Rep #: [id number] : 1950 63 From: Deandra Ellison MD PCP: Sandra Degroot Status: REG CLI Y Location: [facility] Report of Operation Date of Procedure: 10/12/14 [...] 1st Lesion Result: Comments: See Note; NOTES: [facility] Imaging Services [address] [place] [address] Ultrasound Report MR#: [id number] Acct: [id number] Name: TISH MALAVE Rep #: [id number] : 1950 F 63 From: Xu Adams MD PCP: Sandra Degroot Status: REG CLI Study: US Breast Biopsy 1st Lesion Date of Exam: 10/12/14 Exam# [id number] Ordering Dr: Deandra Ellison MD STUDY : [...] Xu Adams MD at 10:43 EDT Tel [phone], Service support [phone], CC: Sandra Degroot; Deandra Ellison MD Business Objects Analyst: Signed 01-Oct-2014 Breast Limited Unilateral Result: Comments: See Note; NOTES: [facility] Imaging Services [address] [place] [address] Ultrasound Report MR#: [id number] Acct: [id number] Name: TISH MALAVE Rep #: [id number] : 1950 F 63 From: Xu Adams MD PCP: Sandra Degroot Status: REG CLI Study: Breast Limited Unilateral Date of Exam: 10/01/14 Exam# [id number] Ordering Dr: Trae Owen MD STUDY : [...] Xu Adams MD at 14:52 EDT Tel [phone], Service support [phone], CC: Sandra Degroot; Trae Owen Business Objects Analyst: Signed 01-Oct-2014 Unilat Lt Diag Digital AND CAD Result: Comments: See Note; NOTES: [facility] Imaging Services [address] [place] [address] Breast Imaging Report MR#: [id number] Acct: [id number] Name: TISH MALAVE Rep #: [id number] : 1950 F 63 From: Xu Adams MD PCP: Sandra Degroot Status: REG CLI Study: Unilat Lt Diag Digital AND CAD Date of Exam: 10/01/14 Exam# [id number] Ordering Dr: Trae Owen MD MAMMOGRAPHY - [...] Xu Adams MD at 14:29 EDT Tel [phone], Service support [phone], CC: Sandra Degroot; Trae Owen Business Objects Analyst: Signed 07-Sep-2014 PT Discharge Summary Result: Comments: See Note; NOTES: [facility] Physical Therapy [facility] [address] [place] [address]. [address] [place], [place] [address] Fax REHABILITATION SERVICES DISCHARGE SUMMARY MR#: [id number] Acct: [id number] Name: TISH MALAVE Joshua Rep #: [id number] : 1950 63 From: Ainsley Ingram Referring Dr.: Sandra Degroot Status: PRE RCR Eval Date: Discharge Da te: DATE OF SERVICE: Date of initial evaluation is July 20, 2014. The patient attended physical therapy for initial evaluation and has not returned since. PT feels it is appropriate she be dis charged from [facility]. Ainsley Ingram DPT T: CHAPIN JOB: [id number] <Electronically signed by Ainsley Ingram > 09/07/14 1459 CC: Signed 20-Jul-2014 Inital Evaluation - PT Result: Comments: See Note; NOTES: [facility] Physical [facility] [address] [place], [place] [address] Fax REHABILITATION SERVICES INITIAL EVALUATION MR#: [id number] Acct: [id number] Name: TISH MALAVE Rep #: [id number] : 1950 63 From: Ainsley Ingram Referring Dr.: Sandra Degroot Status: REG RCR Insurance: [employer] [place] Eval Date: DATE OF SERVICE: 07/20/2014 Tish Malave [...] pain. Ainsley Ingram DPT T: CHAPIN JOB: [id number] <Electronically signed by Ainsley Ingram > 5 1632 CC: Signed For Medicare only, by signing this I certify the plan of care. Physicians Signature Date 14-Jul-2014 Knee 4 or More Views Result: Comments: See Note; NOTES: [facility] Imaging Services [address] [place] [address] Radiology Report MR#: [id number] Acct: [id number] Name: TISH MALAVE Rep #: [id number] : 1950 F 63 From: Nasir Rodriguez DO PCP: Sandra Degroot Status: REG CLI Study: Knee 4 or More Views Date of Exam: 07/14/14 Exam# [id number] Ordering Dr: Sandra Degroot STUDY: X-RAY - [...] Nasir Rodriguez DO at 15:14 EDT Tel [phone], Service support [phone], RAD/Knee 4 or More Views IMPRESSION: Degenerative arthrosis. Electronically Signed: Nasir Rodriguez DO at 15:14 EDT Tel [phone], Service support [phone], Fax CC: Sandra Degroot Business Objects Analyst: Signed 24-May-2014 Yesika Hernandez Digital AND CAD Result: Comments: See Note; NOTES: [facility] Imaging Services [address] [place] [address] Breast Imaging Report MR#: [id number] Acct: [id number] Name: TISH MALAVE Rep #: [id number] : 1950 F 63 From: Xu Adams MD PCP: Sandra Degroot Status: REG CLI Study: Yesika Hernandez Digital AND CAD Date of Exam: 05/24/14 Exam# [id number] Ordering Dr: Trae Owen MD AMMOGRAPHY - [...] Xu Adams MD at 9:22 EST Tel [phone], Service suppo rt [phone], CC: Sandra Degroot; Trae Owen Business Objects Analyst: Signed 04-Sep-2013 Breast Unilateral Result: Comments: See Note; NOTES: [facility] Imaging Services [address] [place] [address] Ultrasound Report MR#: [id number] Acct: [id number] Name: TISH MALAVE Rep #: [id number] : 1950 F 62 From: Xu Adams MD PCP: Sandra Degroot Status: REG CLI Study: Breast Unilateral Date of Exam: 09/04/13 Exam# [id number] Ordering Dr: Trae Owen MD STUDY: ULTRASO UND BREAST(S) - LEFT REASON FOR EXAM: Female, 62 years old. Palpable lump left breast. TECHNIQUE: Axial and longitudinal images of the LEFT breast were performed with a high resolution ultrasound t ransducer. COMPARISON: Comparison is made with prior mammogram [...] Xu Adams MD at 14:14 EDT Tel [phone], Service support [phone], CC: Sandra Degroot; Trae Owen Business Objects Analyst: Signed 04-Sep-2013 Bilat Diag Digital & CAD Result: Comments: See Note; NOTES: [facility] Imaging Services [address] [place] [address] Breast Imaging Report MR#: [id number] Acct: [id number] Name: TISH MALAVE Rep #: [id number] : 1950 F 62 From: Xu Adams MD PCP: Sandra Degroot Status: REG CLI Exam# [id number] Ordering Dr: Trae Owen MD MAMMOGRAPHY - BILATERAL DIAGNOSTIC REASON FOR EXAM: Femjamaal le, 62 years old. Left breast lump. PERTINENT [...] Xu Adams MD at 15:01 EDT Tel [phone], Service support [phone], CC: Sandra Degroot; Trae Owen Business Objects Analyst: Signed 04-Sep-2013 Yesika Hernandez Digital & CAD Result: Comments: See Note; NOTES: [facility] Imaging Services [address] [place] [address] Breast Imaging Report MR#: [id number] Acct: [id number] Name: TISH MALAVE Rep #: [id number] : 1950 F 62 From: Xu Adams MD PCP: Sandra Degroot Status: REG CLI Exam# [id number] Ordering Dr: Trae Owen MD ADDENDUM by Xu Adams MD on 09/07/13 at 1603 === ADDENDUM This is an addendum report. The report is dictated for clarity of the laterality. The pa tient is status post left lumpectomy and not the right lumpectomy. Electronically Signed: Xu Adams MD at 16:03 EDT Tel [phone], Service support [phone], Fax 09/07/13 1612 Date cc: Sandra Degroot; [...] Xu Adams MD at 15:01 EDT Tel [phone], Service s upport [phone], CC: Sandra Degroot; Trae Owen Business Objects Analyst: Signed Family History Unknown Family Member Name Dates Details Daughter 1 Comments: fibromyalgia, stiff man syndrome, lupus Status: Active Daughter 2 Comments: ET, MCTD ( lupus, RA) Status: Active Father Comments: CHF, tremor, HTN, CT Status: Active Sister 1 Comments: Br Ca Status: Active Sister 2 Comments: lupus Status: Active Son 1 Comments: DM Status: Active Social History Name Dates Details Caffeine Use Status: Active 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 Status: Active No Drug Use Status: Active Non Drinker/No Alcohol Use Status: Active Tobacco Use: Current every day smoker. Status: Active Smoking Status Name Dates Details Current every day smoker Vital Signs Date Test Result Details :29 Temperature 96.7 f Comments: Method: Temporal [...] 1.85 m2 Results Date Description Value Details 10-Vic-433488:36 CBC W/Diff, Automated Comments: Reason for Laboratory Test .[facility] [id number] [place], [place], [id number] Absolute Lymph 1.42 {X10_3/ul} (Normal) Range: 0.83-4.51 [...] 4.2-5.4 WBC 10.3 K/mm3 (Normal) Range: 4.4-11.0 45-Fns-001816:36 Comprehensive Metabolic Profil Comments: Reason for Laboratory Test .[facility] [id number] [place], [id number] GAP 6 (Normal) Range: 5-15 CO2 27.0 [...] A.D.A. criteria.Please note revised GLUCOSE reference range prgfpozeo58/02/2018. 51-Ziv-296844:45 URINE FABIAN CULTURE-IDENTIFICATN Comments: PATIENT NOT FASTINGPERFORMED BY: LabCoEssex County HospitalFgagns2805 [facility] [id number] Information: SRC:ALLA ([id number]) Antimicrobial MIHEAD (Normal) Comments: S = Susceptible; [...] Proteusmirabilis. (Abnormal) Urine Final report Culture,Comprehensive (Abnormal) 63-Aog-720407:24 Urinalysis, Office (36582) UA - LEUKOCYTE ESTERASE Trace (Normal) UA - NITRITE Negative (Normal) URINE UROBILINGN DC TIMED Normal mg/dL (Normal) UA - PROTEIN Negative mg/dL (Normal) UA - PH 7 (Normal) UA - BLOOD Hemolyzed Trace (Normal) UA - SPECIFIC GRAVITY 1.015 (Normal) UA - KETONES Negative mg/dL (Normal) UA - BILIRUBIN Negative (Normal) UA - GLUCOSE Negative (Normal) 43-Mvj-920755:23 HgA1C , Office (32611) HgA1C , Office 5.8 % (Normal) Range: 4.6 - 7.1 23-Mpa-668519:23 Blood Glucose , Office (35095) Blood Glucose , Office 117 (Normal) 90-Bkd-663378:47 CREATININE FINGERSTICK Comments: [facility] LaboratoryPoint of [address] [place] [address] [id number] EGFR WB > 60.0000 mL/min (Normal) CREATININE WB 0.9 mg/dL (Normal) Range: 0.55-1.02 :04 HgA1C , Office (01556) HgA1C , Office 5.7 % (Normal) Range: 4.6 - 7.1 :04 Blood Glucose , Office (10480) Blood Glucose , Office 108 (Normal) 38-Ndh-073579:50 CBC W/Diff, Automated Comments: Reason for Laboratory Test .[facility] [address] [place], [place], [id number] Absolute Lymph 1.83 {X10_3/ul} (Normal) Range: 0.83-4.51 [...] 4.2-5.4 WBC 6.5 K/mm3 (Normal) Range: 4.4-11.0 43-Nrp-847415:50 Comprehensive Metabolic Profil Comments: Reason for Laboratory Test .[facility] [address] [place], [place], [address] GAP 7 (Normal) Range: 5-15 CO2 31.0 mmol/L (Normal) Range: 21.0-32.0 CL 97 mmol/L (Abnormal) Range: 98-107 K 4.0 mmol/L (Normal) Range: 3.5-5.1 NA 135 mmol/L (Abnormal) Range: 136-145 T BILI 0.60 mg/dL (Normal) Range: 0.20-1.00 ALT 20 U/L (Normal) Range: 13-56 Comments: Please note revised ALT reference range iziaifxtm01/28/2018. ALK P 135 U/L (Abnormal) Range: 45-117 [...] Comments: Please note revised GLUCOSE reference range cbyfpphhb45/02/2018. :32 HgA1C , Office (37616) Comments: 5.7 HgA1C , Office 5.7 % (Normal) Range: 4.6 - 7.1 :32 Blood Glucose , Office (34768) Blood Glucose , Office 141 (Normal) Comments: fasting 09-Tkf-723415:04 Microscopic Examination Comments: PATIENT WAS FASTINGPERFORMED BY: [facility] Drzkap8775 [facility] [id number] Bacteria None seen (Normal) Mucus Threads Present (Normal) Epithelial Cells (non renal) 0-10 {/hpf} (Normal) Range: 0 - 10 RBC None seen {/hpf} (Normal) Range: 0 - 2 WBC 11-30 {/hpf} (Abnormal) Range: 0 - 5 61-Ndo-622258:04 URINALYSIS (98191) Comments: Mar or Apr 2017; PATIENT WAS FASTINGPERFORMED BY: [employer]70 [facility] [id number] Microscopic Examination See below: (Normal) Comments: Microscopic was indicated and was performed. Nitrite, Urine Negative (Normal) Urobilinogen,Semi-Qn 0.2 mg/dL (Normal) Range: 0.2-1.0 Bilirubin Negative (Normal) Occult Blood Trace (Abnormal) Ketones Negative (Normal) Glucose Negative (Normal) Protein Negative (Normal) WBC Esterase 2+ (Abnormal) Appearance Clear (Normal) Urine-Color Yellow (Normal) pH 7.5 (Normal) Range: 5.0-7.5 Specific [place] 1.012 (Normal) Range: 1.005-1.030 29-Zhi-776167:04 MICROALBUMIN: CREATININE RATIO Comments: MarApr 2017; PATIENT WAS FASTINGPERFORMED BY: [employer]6370 [facility] [id number] (54215) AND (48685) Alb/Creat Ratio 12.7 {mg/g_creat} (Normal) Range: 0.0-30.0 Albumin, Urine 6.3 ug/mL (Normal) Creatinine, Urine 49.6 mg/dL (Normal) 57-Dvc-690383:04 LIPID PANEL (82143) Comments: Fasting Mar or Apr 2017; PATIENT WAS FASTINGPERFORMED BY: [employer]Tap6370 [facility] [id number] LDL/HDL Ratio 2.3 {ratio_units} (Normal) Range: 0.0-3.2 Comments: LDL/HDL Ratio Men Women 1/2 Avg.Risk 1.0 1.5 Av g.Risk 3.6 3.2 2X Avg.Risk 6.2 5.0 3X Avg.Risk 8.0 6.1 LDL Cholesterol Calc 91 mg/dL (Normal) Range: 0-99 VLDL Cholesterol Bella 14 mg/dL (Normal) Range: 5-40 HDL Cholesterol 39 mg/dL (Abnormal) Triglycerides 69 mg/dL (Normal) Range: 0-149 Cholesterol, Total 144 mg/dL (Normal) Range: 100-199 47-Riq-154313:04 CALCIFEDIOL (52760) Comments: Mar or Apr 2017; PATIENT WAS FASTINGPERFORMED BY: [employer] Hsnwag5332 [facility] [id number]; OV 05/14 Vitamin D, 25-Hydroxy 48.9 ng/mL (Normal) Range: 30.0-100.0 Comments: Vitamin D deficiency has been defined by the Anderson ofHolzer Health Systemcine and an Endocrine Society practice guideline as alevel of serum 25-OH vitamin D less than 20 ng/mL (1,2).The Endocrine Society went on to further define vitamin Dinsufficiency as a level between 21 and 29 ng/mL (2).1. IOM (Anderson of Medicine). 2010. Dietary reference intakes for calcium and D. [place]: The National Academies Press.2. Carlitos JULIAN, Rene LAUREANO, Garth CARROLL, et al. Evaluation, treatment, and prevention of vitamin D deficiency: an Endocrine Society clinical practice guideline. JCEM. 2010; 96(7):1911-30. 34-Izf-992164:04 TSH (38021) Comments: Mar or Apr 2017; PATIENT WAS FASTINGPERFORMED BY: [employer]6370 [facility] [id number] TSH 1.660 {uIU/mL} (Normal) Range: 0.450-4.500 00-Cyw-614323:04 Metabolic Panel, Comprehensive Comments: Mar or Apr 2017; PATIENT WAS FASTINGPERFORMED BY: [employer]6370 [facility] [id number] (52408) ALT (SGPT) 16 [iU]/L (Normal) Range: 0-32 [...] Glucose, Serum 100 mg/dL (Abnormal) Range: 65-99 07-Iik-067667:04 CBC, Platelets & Auto Diff Comments: Mar or Apr 2017; PATIENT WAS FASTINGPERFORMED BY: LabCoEssex County HospitalPgqttj4430 [facility] [id number] (47301) Immature Grans (Abs) 0.0 {x10E3/uL} (Normal) Range: [...] (Normal) Range: 3.4-10.8 :45 HgA1C , Office (14931) HgA1C , Office 5.8 % (Normal) Range: 4.6 - 7.1 :45 Blood Glucose , Office (75298) Blood Glucose , Office 110 (Normal) 0-Qpv-807238:33 CBC W/Diff, Auto - EPLAB Comments: Order Date: 05/10/16Order Info: [id number] - *CBC w/Diff - oncology ONLYAt [facility] Outpatient [facility], [place] [facility] Oncologypatients receive CBC w/auto Differential ONLY. Physicianwill place an order fo Only r a manual differential or Pathologistreview at his discretion. [facility] OUTPATIENT [facility]. [address] [place] [address] [address] WAGE AND HOUR INVESTIGATOR: STEVIE COTA DO PH:[phone] State Health System [address]qcwg[address] [place], [address] Absolute Lymph 2.40 {X10_3/uL} (Normal) [...] 4.2-5.4 WBC 8.9 K/mm3 (Normal) Range: 4.4-11.0 1-Jvu-925823:33 Comprehensive Metabolic Profil Comments: Order Date: 05/10/16Order Info: [id number] - *CMP Complete Metabolic PanelWOhio State Health System [address]nysf[address] [place], [address] GAP 5 (Normal) Range: 5-15 CO2 33.0 [...] 7-18 GLU 108 mg/dL (Normal) Range: 70-110 6-Eiq-706694:33 Vitamin D,25 Hydroxy Comments: Order Date: 05/10/16Order Info: [id number] - *Vitamin D (Calciferol)[facility] [address] [place], [address] Vitamin D 25-OH 37.0 ng/mL (Normal) Comments: Vitamin D 25(OH) Status Range Deficiency <20 ng/mL (50nmol/L) Insuffciency 20 - 30 ng/mL (50 - 75 nmol/L) Sufficiency 30 - 100 ng/mL (75 - 250 nmol/L) Toxicity >100 ng/mL (>250 nmol/L) 11-Sep-20168:37 Metabolic Panel, Comprehensive Comments: September 11; PATIENT WAS FASTINGPERFORMED BY: LabCoEssex County HospitalBnerho2086 [facility] [id number] (65385) ALT (SGPT) 17 [iU]/L (Normal) Range: 0-32 [...] (Abnormal) Range: 65-99 :57 HgA1C , Office (95222) HgA1C , Office 5.9 % (Normal) Range: 4.6 - 7.1 :57 Blood Glucose , Office (98409) Blood Glucose , Office 118 (Normal) :30 Serum Creatinine AND GFR Comments: [facility] [address] [place], [place], [address] EST GFR - AA 87 mL/min (Normal) Comments: GFR Calc EST GFR 72 mL/min (Normal) Comments: Non- GFR Calc CREAT,SERUM 0.84 mg/dL (Normal) Range: 0.55-1.02 Comments: The validity of the calculated GFR AND GFRAA in patients over70 years has not been determined. Clinical correlation isessential. :27 Culture, Blood (WB) Comments: [facility] [address] [place], [place], [address] CUB See Note (Normal) Comments: BCNo growth in 5 days. :27 Culture, Blood (WB) Comments: [facility] [address] [place], [place], [id number] CUB See Note (Normal) Comments: BCNo growth in 5 days. 5-Dtq-680793:01 COMPLEMENT C4 (10156) Comments: PATIENT NOT FASTINGPERFORMED BY: LabCoEssex County HospitalSdhpmb4012 [facility] [id number] Complement C4, Serum 36 mg/dL (Normal) Range: 14-44 4-Vuh-708011:01 COMPLEMENT C3 (10289) Comments: PATIENT NOT FASTINGPERFORMED BY: JJ LabCo Vyybbc3411 [facility] [id number] Complement C3, Serum 185 mg/dL (Abnormal) Range: 82-167 6-Xok-681676:01 COMPLEMENT, TOTAL (CH50) Comments: PATIENT NOT FASTINGPERFORMED BY: LabCoEssex County HospitalHlhncl3496 [facility] [id number] (43187) Complement, Total (CH50) 56 U/mL (Normal) Range: 42-60 5-Cqv-186119:01 Sed Rate Erythrocyte (13554) Comments: PATIENT NOT FASTINGPERFORMED BY: LabCoEssex County HospitalXbojuq9840 [facility] [id number] Sedimentation Rate-Westergren 50 mm/h (Abnormal) Range: 0-40 5-Ikq-830530:01 CBC, Platelets & Auto Diff Comments: PATIENT NOT FASTINGPERFORMED BY: LabAscension Providence Hospital6370 [facility] [id number] Information: [id number], [id number] SRC: (79254) Immature Grans (Abs) 0.0 {x10E3/uL} (Normal) Range: [...] 3.77-5.28 WBC 13.6 {x10E3/uL} (Abnormal) Range: 3.4-10.8 :49 Rapid Flu (58043 x 2) Comments: ? borderline Influenza A Ag neg a/b (Normal) 3-Tdv-720362:01 Influenza A&B Viral Culture Comments: PATIENT NOT FASTINGPERFORMED BY: [employer] Jxewhq5854 [facility] [id number] (17870) Viral Culture,Rapid,Influenza FLUABN (Normal) Comments: Negative:No Influenza A or B detected. :53 Urinalysis, Office (32315) UA - LEUKOCYTE ESTERASE Small (Normal) UA - NITRITE Negative (Normal) URINE UROBILINGN DC TIMED Normal mg/dL (Normal) UA - PROTEIN Negative mg/dL (Normal) UA - PH 8.0 (Normal) UA - BLOOD Non Hemolyzed Trace (Normal) UA - SPECIFIC GRAVITY 1.015 (Normal) UA - KETONES Negative mg/dL (Normal) UA - BILIRUBIN Small (Normal) UA - GLUCOSE Negative (Normal) :01 URINE FABIAN CULTURE-IDENTIFICATN Comments: PATIENT NOT FASTINGPERFORMED BY: LabCoEssex County HospitalUjfywb1255 [facility] [id number] (39536) Antimicrobial MIHEAD (Normal) Comments: S = Susceptible; [...] mL (Abnormal) Urine Final report Culture,Comprehensive (Abnormal) 9-Prr-323110:01 CULTURE, SPUTUM (19326) Comments: PATIENT NOT FASTINGPERFORMED BY: [facility] Hwasjg7828 [address] [place] [id number] Result 1 HAEMIN (Abnormal) Comments: Haemophilus influenzaeModerate [...] negative. Lower Respiratory Final report Culture (Abnormal) 9-Nhr-181811:28 Blood Glucose , Office (78230) Blood Glucose , Office 109 (Normal) 01-Zax-715267:48 HgA1C , Office (89934) HgA1C , Office 6.0 % (Normal) Range: 4.6 - 7.1 :48 Blood Glucose , Office (00508) Blood Glucose , Office 152 (Normal) 01-Egp-794256:23 CBC W/Diff, Auto - EPLAB Comments: At [facility] Outpatient [facility], [place] Medical Oncologypatients receive CBC w/auto Differential ONLY. Physicianwill place an order for a manual differential or Pathologistreview at his discretion. [facility] OUTPATIENT [facility]. [address] [place] [address] [address] WAGE AND HOUR INVESTIGATOR: STEVIE COTA DO PH:[phone] Hospitals Portage Medical Center [address] [place], [address] ; another doc Absolute Lymph 2.39 {X10_3/uL} [...] 4.2-5.4 WBC 7.6 K/mm3 (Normal) Range: 4.4-11.0 74-Dqz-205900:23 Comprehensive Metabolic Profil Comments: Order Date: 11/03/15Interface Comments: STATOrder Date: 11/03/15[facility] [address] [place], [address] ; another doc GAP 8 (Normal) Range: [...] 7-18 GLU 101 mg/dL (Normal) Range: 70-110 14-Dik-351837:23 Vitamin D 1,25-Dihydroxy Comments: Order Date: 11/03/15Order Date: 11/03/15Interface Comments: STATOrder Date: 11/03/15[facility] (refer to report for specific site)refer to report for address and phone number; another doc VITD 52106 27.8 pg/mL (Normal) Range: 19.9-79.3 Comments: Performed at: [facility] [address] [id number] Director: Sascha Cedeno MD, Phone: [phone] 61-Lai-289871:01 HgA1C , Office (74811) Comments: 5.8 HgA1C , Office 5.8 % (Normal) Range: 4.6 - 7.1 :43 Microscopic Examination Comments: PATIENT WAS FASTINGPERFORMED BY: [facility] [id number] Bacteria Few (Normal) Mucus Threads Present (Normal) Epithelial Cells (non renal) None seen {/hpf} (Normal) Range: 0 - 10 RBC None seen {/hpf} (Normal) Range: 0 - 2 WBC 0-5 {/hpf} (Normal) Range: 0 - 5 :43 Lipid Panel (84481) Comments: PATIENT WAS FASTINGPERFORMED BY: [facility] [id number] LDL/HDL Ratio 1.7 {ratio_units} (Normal) Range: 0.0-3.2 [...] 116 mg/dL (Normal) Range: 100-199 :43 CALCIFEDIOL (52036) Comments: PATIENT WAS FASTINGPERFORMED BY: [employer]6370 [facility] [id number] Vitamin D, 25-Hydroxy 62.9 ng/mL (Normal) Range: 30.0-100.0 Comments: Vitamin D deficiency has been defined by the Anderson ofMedicine and an Endocrine Society practice guideline as alevel of serum 25-OH vitamin D less than 20 ng/mL (1,2).The Endocrine Society went on to further define vitamin Dinsufficiency as a level between 21 and 29 ng/mL (2).1. IOM (Anderson of Medicine). 2010. Dietary reference intakes for calcium and D. [place]: The National Academies Press.2. Carlitos MF, Rene NC, Garth CARROLL, et al. Evaluation, treatment, and prevention of vitamin D deficiency: an Endocrine Society clinical practice guideline. JCEM. 2010; 96(7):1911-30. :43 URINALYSIS, W/ MICRO (86404) Comments: PATIENT WAS FASTINGPERFORMED BY: First InsightEssex County HospitalTcdnwq6246 [facility] [id number] Microscopic Examination See below: (Normal) Comments: Microscopic was indicated and was performed. Microscopic Examination MICRON (Normal) Comments: Microscopic follows if indicated. Nitrite, Urine Negative (Normal) Urobilinogen,Semi-Qn 1.0 mg/dL (Normal) Range: 0.2-1.0 Bilirubin Negative (Normal) Occult Blood Negative (Normal) Ketones Negative (Normal) Glucose Negative (Normal) Protein Negative (Normal) WBC Esterase Negative (Normal) Appearance Clear (Normal) Urine-Color Yellow (Normal) pH 6.5 (Normal) Range: 5.0-7.5 Specific [place]kin 1.007 (Normal) Range: 1.005-1.030 :43 MICROALBUMIN: CREATININE RATIO Comments: PATIENT WAS FASTINGPERFORMED BY: [employer] [facility] [facility] [id number] (77807) AND (23210) Microalb/Creat Ratio <11.2 {mg/g_creat} (Normal) Range: 0.0-30.0 Microalbumin, Urine <3.0 ug/mL (Normal) Creatinine, Urine 26.8 mg/dL (Normal) :43 TSH (THYROID STIMULATING Comments: PATIENT WAS FASTINGPERFORMED BY: [employer]70 [facility] [id number] HORMONE) (34399) TSH 0.992 {uIU/mL} (Normal) Range: 0.450-4.500 :43 Metabolic Panel, Comments: PATIENT WAS FASTINGPERFORMED BY: [employer] Laradl0308 [facility] [id number] Information: HARD DRAW Comprehensive (80556) ALT (SGPT) 21 [iU]/L (Normal) Range: 0-32 [...] (Normal) Range: 65-99 :09 HgA1C , Office (04620) Comments: 6.2 HgA1C , Office 6.2 % (Normal) Range: 4.6 - 7.1 :09 Blood Glucose , Office (83495) Blood Glucose , Office 123 (Normal) :36 CBC W/Diff, Auto - EPLAB Comments: At [facility] Outpatient [facility], [place] Medical Oncologypatients receive CBC w/auto Differential ONLY. Physicianwill place an order for a manual differential or Pathologistreview at his discretion. [facility] OUTPATIENT [facility]. [address] [place] [address] [address] WAGE AND HOUR INVESTIGATOR: STEVIE COTA DO PH:[phone] Hospitals Portage Medical Center [address] [place], [place], [address] Absolute Lymph 2.15 {X10_3/uL} (Normal) Range: 0.83-4.51 [...] 4.2-5.4 WBC 7.9 K/mm3 (Normal) Range: 4.4-11.0 5-Ugm-890357:32 Comprehensive Metabolic Profil Comments: Order Date: 11/03/15OV Order #: [id number] Specimen #1, #2 or #3? 1 [id number] State Health System [address] [place], [address] GAP 6 (Normal) Range: 5-15 CO2 31.0 [...] 7-18 GLU 103 mg/dL (Normal) Range: 70-110 1-Imd-714254:32 LDH 164 U/L (Normal) Comments: Order Date: 11/03/15OV Order #: [id number] Specimen #1, #2 or #3? [id number] [place] [address] [place], [address] Range: 84-246 6-Dge-360709:32 Uric Acid Comments: Order Date: 11/03/15OV Order #: [id number] Specimen #1, #2 or #3? [id number] [place] [address] [place], [address] URIC 5.4 mg/dL (Normal) Range: 2.6-6.0 Comments: The drugs N-Acetylcysteine and Metamizole may falsely deressthis assay. 6-Gol-902805:00 Vancomycin, Trough Level Comments: Comments: FAX REPORT TO SANDRA SANCHEZOZZYJamaal BECK [phone] AND [facility] [address] [place], [address] VANCO, TROUGH 14.7 ug/mL (Normal) Range: 5.0-15.0 Comments: VANCOMYCIN STANDARED DRUG THERAPY TROUGH LEVEL: 5.0 - 15.0 mg/LVANCOMYCIN HIGH INTENSITY THERAPY TROUGH LEVEL: 15.0 - 20 .0 mg/LHigh Intensity therapy recommended for serious lifethreatening infections include:- Vipshemban-Nszbdnhjfyuy-Lelrupcdi (Ventilator/Healtcare Associated)- SepsisPLEASE CONTACT PHARMACY SERVICES (#6404) FOR INTERPRETATIONOF RESULTS. 24-Gjq-848501:21 M R Staph Aureus DNA by PCR Comments: Source: NASAL SWABUniversity Hospitals Portage Medical Center [address] [place], [address] MRSA RESULT POSITIVE (Abnormal) 16-Zsv-643350:22 Aerobic Bacterial Culture Comments: send for MRSA left flank; PATIENT NOT FASTINGPERFORMED BY: LabCoEssex County HospitalQzrnav2200 [facility] [id number] Information: SRC:MADDIE [id number] (66937) Result 1 MRSA (Abnormal) Comments: Methicillin - [...] report (Abnormal) Culture :03 HgA1C , Office (07075) Comments: 6.0 HgA1C , Office 6.0 % (Normal) Range: 4.6 - 7.1 :03 Blood Glucose , Office (30022) Blood Glucose , Office 120 (Normal) :01 POTASSIUM SERUM (38186) Comments: STAT; [facility] [address] [place], [address] K 4.8 mmol/L (Normal) Range: 3.5-5.1 :40 Metabolic Panel, Comments: PATIENT WAS FASTINGPERFORMED BY: LabCoEssex County HospitalLeerde6041 [facility] [id number] Information: [id number] Comprehensive (45175) ALT (SGPT) 21 [iU]/L (Normal) Range: 0-32 [...] (Abnormal) Range: 65-99 :40 HEPATIC FUNCTION PANEL (30895) Comments: PATIENT WAS FASTINGPERFORMED BY: [employer]70 [facility] [id number] Bilirubin, Direct 0.17 mg/dL (Normal) Range: 0.00-0.40 :40 Lipid Panel (97991) Comments: PATIENT WAS FASTINGPERFORMED BY: [employer] Logiclin6370 [facility] [id number] LDL/HDL Ratio 1.6 {ratio_units} (Normal) Range: 0.0-3.2 [...] Cholesterol, Total 128 mg/dL (Normal) Range: 100-199 1-Txl-026468:36 TSH (93973) Comments: PATIENT WAS FASTINGPERFORMED BY: [facility] InsightZuni Comprehensive Health CenterUinjss9625 [facility] [id number] TSH 1.320 {uIU/mL} (Normal) Range: 0.450-4.500 4-Liq-354339:36 MICROALBUMIN: CREATININE RATIO Comments: PATIENT WAS FASTINGPERFORMED BY: [facility] InsightEssex County HospitalKryfgq3069 [facility] [id number] (79321) AND (82608) Microalb/Creat Ratio <4.6 {mg/g_creat} (Normal) Range: 0.0-30.0 Microalbumin, Urine <3.0 ug/mL (Normal) Range: 0.0-17.0 Creatinine, Urine 64.9 mg/dL (Normal) Range: 15.0-278.0 :36 LIPID PANEL (78921) Comments: PATIENT WAS FASTINGPERFORMED BY: [facility] InsightEssex County HospitalHiehqj5469 [facility] [id number] Information: [id number] LDL/HDL Ratio 2.9 {ratio_units} (Normal) Range: 0.0-3.2 [...] 200 mg/dL (Abnormal) Range: 100-199 :36 CALCIFEDIOL (14680) Comments: PATIENT WAS FASTINGPERFORMED BY: LabCoEssex County HospitalHgmqar7294 [facility] [id number] Vitamin D, 25-Hydroxy 35.2 ng/mL (Normal) Range: 30.0-100.0 Comments: Vitamin D deficiency has been defined by the Anderson ofMedicine and an Endocrine Society practice guideline as alevel of serum 25-OH vitamin D less than 20 ng/mL (1,2).The Endocrine Society went on to further define vitamin Dinsufficiency as a level between 21 and 29 ng/mL (2).1. IOM (Anderson of Medicine). 2010. Dietary reference intakes for calcium and D. [place]: The National Academies Press.2. Carlitos MF, Rene NC, Garth CARROLL, et al. Evaluation, treatment, and prevention of vitamin D deficiency: an Endocrine Society clinical practice guideline. JCEM. 2010; 96(7):1911-30. 62-Mok-749039:16 CBC W/Diff, Auto - EPLAB Comments: At [facility] Outpatient [facility], [place] Medical Oncologypatients receive CBC w/auto Differential ONLY. Physicianwill place an order for a manual differential or Pathologistreview at his discretion. [facility] OUTPATIENT [facility]. [address] [place] [address] [address] WAGE AND HOUR INVESTIGATOR: STEVIE COTA DO PH:[phone] Hospitals Portage Medical Center [address] [place], [address] Absolute Lymph 2.05 {X10_3/uL} (Normal) Range: 0.83-4.51 [...] 4.2-5.4 WBC 6.4 K/mm3 (Normal) Range: 4.4-11.0 59-Acr-131923:14 Comprehensive Metabolic Profil Comments: Serial Specimen #1, #2 or #3? 1[facility] [address] [place], [place], [address] GAP 8 (Normal) Range: 5-15 CO2 30.0 [...] 7-18 GLU 94 mg/dL (Normal) Range: 70-110 49-Zog-764520:14 LDH 176 U/L (Normal) Comments: Serial Specimen #1, #2 or #3? [address] [place] [address] [address] [place], [address] Range: 84-246 74-Fqc-830734:14 Uric Acid Comments: Serial Specimen #1, #2 or #3? [address] [place] [address] [address] [place], [address] URIC 6.1 mg/dL (Abnormal) Range: 2.6-6.0 99-Bey-992357:14 Vitamin D 1,25-Dihydroxy Comments: [facility] (refer to report for specific site)refer to report for address and phone number; ordered by another doctor VITD 1,25 06569 69.0 pg/mL (Normal) Range: 19.9-79.3 Comments: Performed at: [facility] [address] [id number] Director: Sascha Cedeno MD, Phone: [phone] 79-Fkk-770559:20 HgA1C , Office (26402) HgA1C , Office 6.1 % (Normal) Range: 4.6 - 7.1 17-Cvq-967033:20 Blood Glucose , Office (96073) Blood Glucose , Office 89 (Normal) 40-Wyb-395288:53 CALCIFEDIOL (64719) Comments: PATIENT WAS FASTINGPERFORMED BY: LabCoEssex County HospitalQxybmj3977 [facility] [id number] Vitamin D, 25-Hydroxy 23.0 ng/mL (Abnormal) Range: 30.0-100.0 Comments: Vitamin D deficiency has been defined by the Anderson ofMedicine and an Endocrine Society practice guideline as alevel of serum 25-OH vitamin D less than 20 ng/mL (1,2).The Endocrine Society went on to further define vitamin Dinsufficiency as a level between 21 and 29 ng/mL (2).1. IOM (Anderson of Medicine). 2010. Dietary reference intakes for calcium and D. [place]: The National Academies Press.2. Carlitos MF, Rene NC, Garth CARROLL, et al. Evaluation, treatment, and prevention of vitamin D deficiency: an Endocrine Society clinical practice guideline. JCEM. 2010; 96(7):1911-30. 67-Hju-516391:53 Lipid Panel (31363) Comments: PATIENT WAS FASTINGPERFORMED BY: [facility] Jknnxy3788 [facility] [id number] Information: [id number] LDL/HDL Ratio 2.8 {ratio_units} Range: 0.0-3.2 (Normal) [...] (CHOOSE See Note (Normal) Comments: Test performed at:[facility] [address] [place] [address] :00 SITE) Comments: Patient: TISH MALAVE : 1950 (64/F) Acct Num: [id number] Phys: Deandra Ellison MD Unit Num: [id number] Loc: [facility] Specimen: [id number] Received: 10/12/14 112 Spec Type: BREAST BX TISSUES TISSUES: COMMENT Please see previous specimen ([id number]) left breast tissue, stereotactic core biopsy with diagnosis of ductal carcinoma in situ. GROSS DESCRIPTION Received is one container labeled with the patient name and designated left breast. The specimen consists of multiple elongated fragments of martinez-yellow fibroadipose tissue measuring in aggregate 2.5 x 0.5 x 0.1 cm. The specimen is totally submitted in one cassette. / SJ:laura 10/12/14 TC:3 CPT: 13208 HEADER OPERATION: U/S guided left breast biopsy [...] Signed Shayan Ching 10/13/14 <signature on file> 5-Wbq-454090:16 Comprehensive Metabolic Profil Comments: Serial Specimen #1, #2 or #3? 1Test performed at:[facility] [address] [place] [address] [id number] GAP 6 (Normal) Range: 5-15 CO2 28.0 [...] 7-18 GLU 97 mg/dL (Normal) Range: 70-110 3-Rap-299336:16 LDH 189 U/L (Normal) Comments: Serial Specimen #1, #2 or #3? 1Test performed at:[facility] [address] [place], [place] [address] Range: 87-241 6-Qlu-078905:16 Uric Acid Comments: Serial Specimen #1, #2 or #3? 1Test performed at:[facility] [address] [place] [address] URIC 5.5 mg/dL (Normal) Range: 2.6-6.0 :05 CBC W/Diff, Auto - EPLAB Only Comments: At [facility] Outpatient [facility], [place] Medical Oncologypatients receive CBC w/auto Differential ONLY. Physicianwill place an order for a manual differential or Pathologistreview at his discretion. [facility] OUTPATIENT [facility]. [address] [place] [address] [address] WAGE AND HOUR INVESTIGATOR: STEVIE COTA DO PH:[phone] performed at:[facility] [address] [place], [place] [address] Absolute Neut 2.7 {X10_3/uL} (Normal) Range: 2.0-7.7 [...] 4.2-5.4 WBC 4.8 K/mm3 (Normal) Range: 4.4-11.0 89-Omf-64985:00 Culture, Wound Comments: Test performed at:[facility] [address] [place] [address] CUW See Note (Normal) Comments: Comments: RIGHT [...] 1 S(NF) in dicates non-formulary drug at [facility]. Approval by Infectious Disease Specialist required before non-formulary drugs may be ordered and/or dispensed. * CLSI guidelines does not recommend testing of cephalosporins. This interpretation is deduced from Beta-lactam/penicillin results. 34-Iej-024791:16 Anaerobic & Aerobic Comments: R leg; PATIENT NOT FASTINGPERFORMED BY: [facility] Bjvpxl1520 [facility] [id number] Information: SRC:WND [id number] RIGHT LEG Culture (39741) Result 1 MRSA (Abnormal) Comments: Methicillin - [...] K 4.5 mmol/L (Normal) Range: 3.5-5.1 :12 12-Tkc-267181:13 CALCIFEDIOL (88002) Comments: PATIENT NOT FASTINGPERFORMED BY: [employer] St[facility]eticsSelect [facility] [id number] Information: [id number] Vitamin D, 25-Hydroxy 23.8 ng/mL (Abnormal) Range: 30.0-100.0 Comments: Vitamin D deficiency has been defined by the Anderson ofMedicine and an Endocrine Society practice guideline as alevel of serum 25-OH vitamin D less than 20 ng/mL (1,2).The Endocrine Society went on to further define vitamin Dinsufficiency as a level between 21 and 29 ng/mL (2).1. IOM (Anderson of Medicine). 2010. Dietary reference intakes for calcium and D. [place]: The National Academies Press.2. Carlitos MF, Rene NC, Peter-Jimmy CARROLL, et al. Evaluation, treatment, and prevention of vitamin D deficiency: an Endocrine Society clinical practice guideline. JCEM. 2010; 96(7):1911-30. 87-Lba-344954:04 CBC, Platelets & Auto Comments: pls send copy to Dr epperson; Test(s) Potassium, Serum called to Dr Felix on 12/21/2013 at 23:26 ESTPATIENT NOT FASTINGPERFORMED BY: [facility] Zwjrfo5282 [facility] [id number] Information: [id number] Diff (29578) Immature Grans (Abs) 0.0 {x10E3/uL} (Normal) Range: [...] 3.77-5.28 WBC 5.2 {x10E3/uL} (Normal) Range: 3.4-10.8 94-Zyc-429331:04 Metabolic Panel, Comprehensive Comments: pls send copy to dr epperson; Test(s) Potassium, Serum called to Dr Felix on 12/21/2013 at 23:26 ESTPATIENT NOT FASTINGPERFORMED BY: [facility]Oalwoh4776 [facility] [id number] (87983) ALT (SGPT) 15 [iU]/L (Normal) Range: 0-32 [...] Glucose, Serum 79 mg/dL (Normal) Range: 65-99 31-Evu-811251:04 HEPATIC FUNCTION PANEL Comments: pls send copy to Dr Epperson; Test(s) Potassium, Serum called to Dr Felix on 12/21/2013 at 23:26 ESTPATIENT NOT FASTINGPERFORMED BY: [facility] HospitalYtbvpy7991 [facility] [id number] (25163) Bilirubin, Direct 0.09 mg/dL (Normal) Range: 0.00-0.40 15-Ctz-01992:55 CMP Comments: Serial Specimen #1, #2 or [...] 7-18 GLU 94 mg/dL (Normal) Range: 70-110 82-Aef-88288:55 ECBCD Comments: At [facility] Outpatient [facility], Dr Lang patients receiveCBC w/auto Differential ONLY. He will place an order for amanual differential or Pathologist review at his discretion.[facility] OUTPATIENT [facility].[address] [place], [place] [address]GZE DIRECTOR: STEVIE COTA DO PH:[phone] ANC 5.3 {X10_3/uL} (Normal) Range: 2.0-7.7 B% [...] Comments: pls also fax to Dr epperson- [phone]; PATIENT NOT FASTINGPERFORMED BY: [facility] HospitalMrzzkr9747 [facility] [id number] Information: [id number] CC:[id number] [phone] (08956) Immature Grans (Abs) 0.0 {x10E3/uL} (Normal) Range: [...] pls also fax results to Dr epperson- [phone]; PATIENT NOT FASTINGPERFORMED BY: [facility] Supxov0363 [facility] [id number] (74046) ALT (SGPT) 17 [iU]/L (Normal) Range: 0-32 [...] (THYROID STIMULATING Comments: PATIENT NOT FASTINGPERFORMED BY: [facility]6370 [facility] [id number] HORMONE) (38529) TSH 1.350 {uIU/mL} (Normal) Range: 0.450-4.500 :46 CALCIFEDIOL (86691) Comments: PATIENT NOT FASTINGPERFORMED BY: [facility]6370 [facility] [id number] Vitamin D, 25-Hydroxy 30.9 ng/mL (Normal) Range: 30.0-100.0 Comments: Vitamin D deficiency has been defined by the Anderson ofHolzer Health Systemcine and an Endocrine Society practice guideline as alevel of serum 25-OH vitamin D less than 20 ng/mL (1,2).The Endocrine Society went on to further define vitamin Dinsufficiency as a level between 21 and 29 ng/mL (2).1. IOM (Anderson of Medicine). 2010. Dietary reference intakes for calcium and D. [place]: The National Academies Press.2. Carlitos MF, Rene NC, Garth CARROLL, et al. Evaluation, treatment, and prevention of vitamin D deficiency: an Endocrine Society clinical practice guideline. JCEM. 2010; 96(7):1911-30. 92-Nxm-684428:28 HgA1C , Office (34264) HgA1C , Office 5.3 % (Normal) Range: 4.6 - 7.1 18-Oju-500257:36 Renal function Panel Comments: PATIENT NOT FASTINGPERFORMED BY: [facility]6370 [facility] [id number] Information: ADD [id number] AND DRAW FEE 99 0089 (21148) Albumin, Serum 4.2 g/dL (Normal) Range: 3.6-4.8 [...] Glucose, Serum 114 mg/dL (Abnormal) Range: 65-99 :36 CALCIFEDIOL (91019) Comments: PATIENT NOT FASTINGPERFORMED BY: [employer] [id number] Vitamin D, 25-Hydroxy 29.9 ng/mL (Abnormal) Range: 30.0-100.0 Comments: Vitamin D deficiency has been defined by the Anderson ofHolzer Health Systemcine and an Endocrine Society practice guideline as alevel of serum 25-OH vitamin D less than 20 ng/mL (1,2).The Endocrine Society went on to further define vitamin Dinsufficiency as a level between 21 and 29 ng/mL (2).1. IOM (Anderson of Medicine). 2010. Dietary reference intakes for calcium and D. [place]: The National Academies Press.2. Carlitos MF, Rene LAUREANO, Garth CARROLL, et al. Evaluation, treatment, and prevention of vitamin D deficiency: an Endocrine Society clinical practice guideline. JCEM. 2010; 96(7):1911-30. 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 Indication: COPD (chronic obstructive pulmonary disease) Knee pain, right : Follow up in 1 month with [facility] for Gen Med Indication: Knee pain, right Knee pain, right : Follow up if no improvement or if symptoms worsen Indication: Knee pain, right Knee pain, right : Reviewed [employer] Finishing Hand Letter Indication: Knee pain, right Knee pain, [...] (antinuclear antibody) Planned Observations MICROALBUMIN: CREATININE RATIO (90631) AND (59977)Indication: SOB (shortness of breath) On: :47 Request TSH (84984)Indication: SOB (shortness of breath) On: 06-Sep-20179:47 Request FABIAN CULTURE-BLOOD (46713)Indication: Elevated WBC count On: 9-Uds-310219:29 Request FABIAN CULTURE-BLOOD (41038)Indication: Elevated WBC count On: 2-Jsj-324274:29 Request MRSA Culture (98250)Indication: Cellulitis of trunk, unspecified site of trunk On: 58-Ija-853697:04 Request Comments: nose HgA1C , Office (39723)Indication: Prediabetes On: 7-Ipa-672240:02 Request MRSA Culture ([id number])Indication: Cellulitis On: 63-Mof-01491:40 Request FABIAN CULTURE-OTHER (48517)Indication: Cellulitis On: :39 Request POTASSIUM SERUM (63607)Indication: Hyperkalemia On: 70-Hzm-75039:14 Request Comments: pls call results to [phone] Planned Encounters Medical; 2 Month FU - On: 14-Apr-2018 9:30 [facility] Sandra Degroot CNP, CNP, Mary E Planned Procedures Flu Vaccine (Quadrivalent) 96787Qf: On: 25-Dec-2017 Intent Sandra Degroot CNP, CNP, Mary E PHYSICAL THERAPY (50672)By: Gabriele On: 17-Dec-2017 Intent Lynda Radiology - Knee - RightBy: Gabriele On: 17-Dec-[address] THORAX W CONTRAST (34831)By: On: 11-Oct-2017 Intent Sandra Degroot CNP, CNP, Mary E Comments: new rt lower 4.5mm lung nodule ordered by Dr. Brittney shrestha in October of 2016 CT chest without contrast PET-CT ENTIRE BODY (76643)By: Zane On: 24-Sep-2017 Intent Sandra ZAVALA CNP, Mary E CONTINUOUS OVERNIGHT PULSE OXIMETRY On: 06-Sep-2017 Intent (66319)By: Sandra Degroot CNP, CNP, Mary E CT - Chest (IV Contrast Needed)By: On: 06-Sep-2017 Intent Sandra Degroot CNP, CNP, Mary E CONTINUOUS OVERNIGHT PULSE OXIMETRY On: 06-Sep-2017 Intent (33165)By: Sandra Degroot CNP, CNP, Mary E Spirometry (15224)By: Zane ZAVALA, On: 06-Sep-2017 Intent Sandra Muhammad CNP Six Minute Walk Assessment On: 06-Sep-2017 Intent (12785)By: Sandra Degroot CNPesa ARCHAEOLOGIST, Pili Flu Vaccine (Quadrivalent) 05087Ld: On: 01-Jan-2017 Intent Nai Trevizo LPN Comments: InfluenzaLot #[id number]-09/23/18Site-R dltd, IMDose prefilled syringeVIS and ABN signedgiven by:ROSA gallardo Spirometry (79914)By: Zane ZAVALA, On: 04-Sep-2016 Intent PiliMandie Degroot CNP Pili Comments: severe airway obstruction with low vital capacity Aerosol Treatment (10346)By: Zane On: 04-Sep-2016 Intent SALLY PiliMandie Degroot CNP Pili Aerosol Treatment (94492)By: Zane On: 11-Jul-2016 Intent SALLY PiliSandra Baltazar CNP Radiology - ChestBy: Sandra Degroot CNP On: 09-Jul-2016 Anthony Degroot CNP Pili Aerosol Treatment (82250)By: Zane On: 09-Jul-2016 Intent SALLY PiliMandie Degroot CNP Pili Flu Vaccine (Quadrivalent) 09255Yz: On: 07-Feb-2016 Intent Zane ZAVALA PiliMandie Degroot CNP Pili Comments: Lot:[id number]:10/05/16Dose:0.5mLRoute:IMSite:r DltdGiven By:Emely signed Rocephin Injection, 2 Gram On: 06-Sep-2015 Intent (J0696)By: Sandra Degroot CNP, CNP, Mary E Ultrasound - Abdomen CompleteBy: On: 13-May-2015 Intent Sandra Degroot CNP, CNP, Mary E Venous Doppler - RightBy: Zane ZAVALA, On: 13-May-2015 Intent Sandra Muhammad CNP PHYSICAL THERAPY EVALUATION On: 14-Jul-2014 Intent (66396)By: Sandra Degroot CNP, CNP, Mary E Radiology - Knee - RightBy: Zane On: 14-Jul-2014 Intent Sandra ZAVALA CNP, Mary E IV Needle placement (15983)By: On: 24-Feb-2014 Intent Sandra Degroot CNP, CNP, Mary E Comments: 22G insyte initiated in R medial wrist, no s/s infiltration, redness, swelling, dsg dry intact, infusing on gravity pole at 48gtts/min- catheter removed intact, tolerated well- 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 Rocephin Injection, 2 Gram On: 24-Feb-2014 Intent (J0696)By: Sandra Degroot CNP Comments: lot # [id number]- 09/06/16site-R medial wrist route-IVdose- 2GCTyler Sandra LEE CNP ELECTROCARDIOGRAM, COMPLETE (ECG) On: 22-Dec-2013 Intent (37582)By: Sandra Degroot CNP, CNP, Mary E FLU VAC, SPLIT, >3 YEARS, INTRAMUSC On: 30-Dec-2012 Intent (02373)By: Leslie Roberts LPN Comments: Lot:[id number]:Dose:0.5mLRoute:IMSite:L DltdGiven By:DELILAH signed IMMUNIZ ADMNIN, 1 VAC, SNGL/COMBO On: 30-Dec-2012 Intent (48468)By: Leslie Roberts LPN Planned Medications INJECTION, CEFTRIAXONE [...] benign : DISCONTINUED - METABOLIC PANEL, COMPREHENSIVE (89911) Indication: Hypertension, benign Hypertension, benign : DISCONTINUED - CBC with auto diff (70002) Indication: Hypertension, benign Hyperglycemia : How to [...] Advance Directives Name Dates Details Immunization Registry [place] - Effective on Effective: 01-Jan-201801/01/2018. 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 Dr. Ahumada neurology. )., [ADDITIONAL REASON] Follow [...] (chronic obstructive pulmonary disease) (496), Lupus (710.0) [facility] Internal Medicine Payers Kelton Malave; jamaal guarantor
--- OUTSIDE RECORDS SUMMARY | 2018-07-02 03:39 | XMS RPT_ITS | Continuity of Care Document ---
:1950 Author Organization [facility] Address [address] [place] [address] Phone Care Team Providers Name Role Phone [...] Comments: lumpectomy and lymph node dissection seeing [employer] Farzaneh Medina on anastrazole, saw Scot in [...] knee brace for stablizaiton will send to [employer], going to [facility]. Status: Active Lower urinary [...] day now will DC it since on cpuddmq9ucghbl ago started tremor,improvement with propraololwas using cane [...] : 21-Oct-2012 End : 24-Feb-2014 Discontinued Ergocalciferol 81736 UNIT Oral Capsule 1 Capsule twice weekly [...] Dr Ellison Salpingectomy; Unilateral Completed Comments: 2010- director plans/onc Date Value Details 23-Jan-2018 Oncology Visit Report Result: Comments: See Note; NOTES: [facility] [address] [place] [address] OFFICE VISIT Date of Service: 01/23/18 1611 MR#: [id number] Acct: [id number] Name: TISH MALAVE ep #: [id number] : 1950 From: Guido Hogue MD Age/Sex: 67/F Location: OMD Status: Signed Subjective - Date of Service Date of Service:: 01/23/18 - Chief Complaint F/u for Left Breast cancer. - History of Present Illness Ms. Tsih Malave is a 66-year-old woman with a [...] uninvolved. Biology proved ER positi ve (95%) NE positive (5%) and HER2-griffin nonamplified by FISH. [...] Code Visi t Office Visits / Consults: 30680 OV L4 Est 01/23/18 1620 <Electronically signed by Guido Hogue MD> Date Guido Hogue MD Cosigner Sig nature: Date (if applicable) CC: 17-Dec-2017 Knee 4 or More Views Result: Comments: See Note; NOTES: [facility] Imaging Services [address] [place] [address] Knee 4 or More Views MR#: [id number] Acct: [id number] Name: TISH MALAVE Rep #: [id number] : 1950 F 67 From: Fer Amos MD PCP: Sandra Degroot NP Status: REG CLI Study: Knee 4 or More Views Date of Exam: 12/17/17 Exam# [id number] Ordering Dr: Lynda Suazo STUDY: X-RAY - [...] , CC: Sandra Degroot NP; VALENTE Suazo Reading Teacher: Signed 18-Nov-2017 SCREENING MAMM (CAD), BILAT Result: Comments: See Note; NOTES: [facility] Imaging Services [address] [facility] [address] SCREENING MAMM (CAD), BILAT MR#: [id number] Acct: [id number] Name: TISH MALAVE Rep #: [id number] : 1950 F 67 From: Xu Adams MD PCP: Sandra Degroot NP Status: PRE CLI Study: SCREENING MAMM (CAD), BILAT Date of Exam: 11/18/17 Exam# [id number] Ordering Dr: Guido Hogue MD MAMM OGRAPHY [...] delay biopsy of a clinically suspicious abnormality. [id number] Electronically Signed: Xu Adams MD at 15:22 EDT Tel [phone], Service support , Fa x [phone] CC: Sandra Degroot NP; Guido Hogue MD Reading Teacher: Signed 05-Oct-2017 PET/CT Tumor Base -Thigh Init Result: Comments: See Note; NOTES: [facility] Imaging Services [address] [place] [address] PET/CT Tumor Base -Thigh Init MR#: [id number] Acct: [id number] Name: TISH MALAVE Rep #: [id number] : 1950 F 66 From: Hossein Oneill DO PCP: Sandra Degroot NP Status: REG CLI Study: PET/CT Tumor Base -Thigh Init Date of Exam: 10/07/17 Exam# [id number] Ordering Dr: Sandra DegrootINA ON: FDG PET/CT [...] the axial skeletal structures. ORDER # : [id number] PET/PET/CT Tumor Base -Thigh Init IMPRESSION: 1. [...] Service support , CC: Sandra Degroot NP Reading Teacher: Signed 23-Sep-2017 Chest WITH Contrast Result: Comments: See Note; NOTES: [facility] Imaging Services [address] [place] [address] Chest WITH Contrast MR#: [id number] Acct: [id number] Name: TISH MALAVE Rep #: [id number] OB: 1950 F 66 From: Vasu Wright MD PCP: Sandra Degroot NP Status: REG CLI Study: Chest WITH Contrast Date of Exam: 09/23/17 Exam# [id number] Ordering Dr: Sandra Degroot STUDY: CT CHEST [...] verbal consultatio n. CC: Sandra Degroot NP Reading Teacher: Signed 17-Jul-2017 Oncology Visit Report Result: Comments: See Note; NOTES: [facility] [place] [address] OFFICE VISIT Date of Service: 07/17/17 1446 MR#: [id number] Acct: [id number] Name: TISH MALAVE #: [id number] : 1950 From: Guido Hogue MD Age/Sex: [...] were uninvolved. Biology proved ER positive (95%) NE positive (5%) and HER2-griffin nonampl ified by [...] Chronic Code Visit Office Visits / Consults: 38572 OV L4 Est 07/17/17 1511 <Electronically signed by Guido Hurtado D> Date Guido Hogue MD Cosigner Signature: Date (if applicable) CC: 16-Nov-2016 Breast Limited Unilateral Result: Comments: See Note; NOTES: [facility] Imaging Services [address] [place] [address] Breast Limited Unilateral MR#: [id number] Acct: [id number] Name: TISH MALAVE Rep #: [id number] : 1950 F 66 From: Xu Adams MD PCP: Sandra Degroot Status: REG CLI Study: Breast Limited Unilateral Date of Exam: 11/16/16 Exam# [id number] Ordering Dr: Maeve Tarango STUDY: ULTR ASOUND [...] Xu Adams MD at 15:16 EDT Tel [phone], Service support , CC: Sandra Degroot; Maeve Tarango Reading Teacher: Signed 16-Nov-2016 DIAG MAMM W/CAD, UNILAT Result: Comments: See Note; NOTES: [facility] Imaging Services [address] [place] [address] DIAG MAMM W/CAD, UNILAT MR#: [id number] Acct: [id number] Name: TISH MALAVE Rep #: [id number] : 1950 F 66 From: Xu Adams MD PCP: Sandra Degroot Status: REG CLI Study: DIAG MAMM W/CAD, UNILAT Date of Exam: 11/16/16 Exam# [id number] Ordering Dr: Maeve Tarango MAMMOGRAPHY - U [...] Xu Adams MD at 15:24 EDT Tel [phone], Service supp ort , CC: Sandra Degroot; Maeve Tarango Reading Teacher: Signed 09-Aug-2016 Chest WITH Contrast Result: Comments: See Note; NOTES: [facility] Imaging Services [address] [place] [address] Verdana 4d Chest WITH Contrast MR#: [id number] Acct: [id number] Name: TISH MALAVE Rep #: [id number] : 1950 F 65 From: Mario Horton MD PCP: Sandra Degroot Status: REG CLI Study: Chest WITH Contrast Date of Exam: 08/09/16 Exam# [id number] Ordering Dr: Jean Carlos Clarke MD STUDY: [...] CC: Sandra sims; Jean Carlos Clarke MD Reading Teacher: Signed 09-Jul-2016 Chest PA and Lateral Result: Comments: See Note; NOTES: [facility] Imaging Services [address] [place] [address] Verdana 4d Chest PA and Lateral MR#: [id number] Acct: [id number] Name: TISH MALAVE Rep #: [id number] : 1950 F 65 From: Xu Adams MD PCP: Sandra Degroot Status: REG CLI Study: Chest PA and Lateral Date of Exam: 07/09/16 Exam# [id number] Ordering Dr: Sandra Degroot STUDY: X-RAY C [...] Xu Adams MD at 13:03 EDT Tel [phone], Service support [phone], CC: Sandra Degroot Reading Teacher: Signed 07-Jun-2016 SCREENING MAMM (CAD), BILAT Result: Comments: See Note; NOTES: [facility] Imaging Services [address] [place] [address] Verda 4d SCREENING MAMM (CAD), BILAT MR#: [id number] Acct: [id number] Name: TISH MALAVE Rep #: [id number] : 1950 F 65 From: Xu Adams MD PCP: Sandra Degroot Status: REG CLI Study: SCREENING MAMM (CAD), BILAT Date of Exam: 06/07/16 Exam# [id number] Ordering Dr: Rona Tarango MAMMOGRAPHY - BILATERAL [...] delay biopsy of a clinically suspicious abnormality. [id number] Electronically Signed: Xu Adams MD at 8:17 EST Tel [phone], Service support [phone], CC: Sandra Degroot; Maeve Emelina Reading Teacher: Signed 30-Apr-2016 Chest without Contrast Result: Comments: See Note; NOTES: [facility] Imaging Services [address] [place] [address] Kattydana 4d Chest without Contrast MR#: [id number] Acct: [id number] Name: TISH MALAVE Rep #: [id number] : 1950 F 65 From: Lex Mosley MD PCP: Sanrda Degroot Status: REG CLI Study: Chest without Contrast Date of Exam: 04/30/16 Exam# [id number] Ordering Dr: Jean Carlos Clarke MD [facility] [...] at 7:24 EST , Service support [phone], CC: Sandra Degroot; Jean Carlos Clarke MD Reading Teacher: Signed 12-Oct-2015 Dexa Bone Density Study (HP) Result: Comments: See Note; NOTES: [facility] Imaging Services [address] [place] [address] Verdana 4d Dexa Bone Density Study () MR#: [id number] Acct: [id number] Name : TISH MALAVE Rep #: [id number] : 1950 F 64 From: Xu Adams MD PCP: Sandra Degroot Status: REG CL Study: Dexa Bone Density Study (HP) Date of Exam: 10/12/15 Exam# [id number] Ordering Dr: Trae Owen MD STUDY: DUAL [...] Xu Adams MD at 13:05 EDT Tel [phone], Service support [phone], CC: Sandra Degroot; Trae Owen Reading Teacher: Signed 26-May-2015 Bilat Diag Digital AND CAD Result: Comments: See Note; NOTES: [facility] Imaging Services [address] [place] [address] Verdana 4d Bilat Diag Digital AND CAD MR#: [id number] Acct: [id number] Name: TISH MALAVE Rep #: [id number] : 1950 F 64 From: Xu Adams MD PCP: Sandra Degroot Status: REG CLI Study: Bilat Diag Digital AND CAD Date of Exam: 05/26/15 Exam# [id number] Ordering Dr: Deandra Ellison MD MAMMOGRAPHY - [...] Xu Adams MD at 9:06 EST Tel [phone], Service support [phone], CC: Sandra Degroot; Deandra Ellison MD Reading Teacher: Signed 17-May-2015 Abdomen Complete Result: Comments: See Note; NOTES: [facility] Imaging Services [address] [place] [address] Verdana 4d Abdomen Complete MR#: [id number] Acct: [id number] Name: TISH MALAVE Rep #: [id number] : 1950 F 64 From: Jaclyn Rojas MD PCP: Sandra Degroot Status: REG CLI Study: Abdomen Complete Date of Exam: 05/17/15 Exam# [id number] Ordering Dr: Sandra Degroot STUDY: A BDOMINAL [...] at 14:26 EST Tel , Service support [phone], CC: Sandra Degroot Reading Teacher: Signed 14-Oct-2014 History and Physical Exam Result: Comments: See Note; NOTES: [facility] Medical Records Department [address] [place] [address] History and Physical 10/14/14 1021 MR#: [id number] Acct: [id number] Name: TISH MALAVE Rep #: [id number] : 1950 64 From: Deandra Ellison MD PCP: Sandra Degroot Status: REG CLI Y Location: [facility] History and Physical - Blank Date of [...] 1cm) N0 (3 SLN negative) ER 95% NE 5%, Her2-negative Hypertension Asthma/COPD Past Surgical History: [...] Hx of NEOPLASM, MALIGNANT, BREAST, CENTRAL (ICD-174.1) (NBU37-F87.119) See below. Problem # 2: Other (abnormal) findings on radiological examination of breast (ICD-793.89) ( CCM36-R35.8) I have discussed above with the patient [...] Operative Report Result: Comments: See Note; NOTES: [facility] Medical Records Department [address] [place] [address] Operative Report 10/12/14 1154 MR#: [id number] Acct: [id number] Name: TISH MALAVE Rep #: [id number] : 1950 63 From: Deandra Ellison MD PCP: Sandra Degroot Status: REG CLI Y Location: [facility] Report of Operation Date of Procedure: 10/12/14 [...] si gned by Deandra Ellison MD> Date Deadnra Ellison MD CC: Sandra Degroot; Deandra Ellison MD; Sandra Degroot Signed 12-Oct-2014 US Breast Biopsy 1st Lesion Result: Comments: See Note; NOTES: [facility] Imaging Services [address] [place] [address] Ultrasound Report MR#: [id number] Acct: [id number] Name: TISH MALAVE Rep #: [id number] : 1950 F 63 From: Xu Adams MD PCP: Sandra Degroot Status: [facility] CL Study: US Breast Biopsy 1st Lesion Date of Exam: 10/12/14 Exam# [id number] Ordering Dr: Deandra Ellison MD STUDY : [...] Xu Adams MD at 10:43 EDT Tel [phone], Service support [phone], CC: Sandra Degroot; Deandra Ellison MD Reading Teacher: Signed 01-Oct-2014 Breast Limited Unilateral Result: Comments: See Note; NOTES: [facility] Imaging Services [address] [place] [address] Ultrasound Report MR#: [id number] Acct: [id number] Name: TISH MALAVE Rep #: [id number] : 1950 F 63 From: Xu Adams MD PCP: Sandra Degroot Status: REG CLI Study: Breast Limited Unilateral Date of Exam: 10/01/14 Exam# [id number] Ordering Dr: Trae Owen MD STUDY : [...] Xu Adams MD at 14:52 EDT Tel [phone], Service support [phone], CC: Sandra Degroot; Trae Owen Reading Teacher: Signed 01-Oct-2014 Unilat Lt Diag Digital AND CAD Result: Comments: See Note; NOTES: [facility] Imaging Services [address] [place] [address] Breast Imaging Report MR#: [id number] Acct: [id number] Name: TISH MALAVE Rep #: [id number] : 1950 F 63 From: Xu Adams MD PCP: Sandra Degroot Status: REG CLI Study: Unilat Lt Diag Digital AND CAD Date of Exam: 10/01/14 Exam# [id number] Ordering Dr: Trae Owen MD MAMMOGRAPHY - [...] Xu Adams MD at 14:29 EDT Tel [phone], Service support [phone], CC: Sandra Degroot; Trae Owen Reading Teacher: Signed 07-Sep-2014 PT Discharge Summary Result: Comments: See Note; NOTES: [facility] Physical Therapy [address] [place] [address] Fax REHABILITATION SERVICES DISCHARGE SUMMARY MR#: [id number] Acct: [id number] Name: TISH MALAVE Rep #: [id number] : 1950 63 From: Ainsley Ingram Referring Dr.: Sandra Degroot Status: PRE RCR Eval Date: Discharge Da te: DATE OF SERVICE: Date of initial evaluation is July 20, 2014. The patient attended physical therapy for initial evaluation and has not returned since. PT feels it is appropriate she be dis charged from [facility]. Ainsley Ingram DPT T: CHAPIN JOB: [id number] <Electronically signed by Ainsley Ingram > 09/07/14 1459 CC: Signed 20-Jul-2014 Inital Evaluation - PT Result: Comments: See Note; NOTES: [facility] Physical Therapy [address] [place] [address] Fax REHABILITATION SERVICES INITIAL EVALUATION MR#: [id number] Acct: [id number] Name: TISH MALAVE Rep #: [id number] : 1950 63 From: Ainsley Ingram Referring Dr.: Sandra Degroot Status: REG R Insurance: [facility] Pham Date: DATE OF SERVICE: [...] pain. Ainsley Ingram DPT T: CHAPIN JOB: [id number] <Electronically signed by Ainsley Ingram > 5 1632 CC: Signed For Medicare only, by signing this I certify the plan of care. Physicians Signature Date 14-Jul-2014 Knee 4 or More Views Result: Comments: See Note; NOTES: [facility] Imaging Services [address] [place] [address] Radiology Report MR#: [id number] Acct: [id number] Name: TISH MALAVE Rep #: [id number] : 1950 F 63 From: Nasir Rodriguez DO PCP: Sandra Degroot Status: REG CLI Study: Knee 4 or More Views Date of Exam: 07/14/14 Exam# [id number] Ordering Dr: Sandra Degroot STUDY: X-RAY - [...] Nasir Rodriguez DO at 15:14 EDT Tel [phone], Service support [phone], RAD/Knee 4 or More Views IMPRESSION: Degenerative arthrosis. Electronically Signed: Nasir Rodriguez DO at 15:14 EDT Tel [phone], Service support [phone], Fax CC: Sandra Degroot Reading Teacher: Signed 24-May-2014 Bilat Diag Digital AND CAD Result: Comments: See Note; NOTES: [facility] Imaging Services [address] [place] [address] Breast Imaging Report MR#: [id number] Acct: [id number] Name: TISH MALAVE Rep #: [id number] : 1950 F 63 From: Xu Adams MD PCP: Sandra Degroot Status: REG CLI Study: Bilat Diag Digital AND CAD Date of Exam: 05/24/14 Exam# [id number] Ordering Dr: Trae Owen MD M AMMOGRAPHY [...] Xu Adams MD at 9:22 EST Tel [phone], Service suppo rt [phone], CC: Sandra Degroot; Trae Owen Reading Teacher: Signed 04-Sep-2013 Breast Unilateral Result: Comments: See Note; NOTES: [facility] Imaging Services [address] [place] [address] Ultrasound Report MR#: [id number] Acct: [id number] Name: TISH MALAVE Rep #: [id number] : 1950 F 62 From: Xu Adams MD PCP: Sandra Degroot Status: REG CLI Study: Breast Unilateral Date of Exam: 09/04/13 Exam# [id number] Ordering Dr: Trae Owen MD STUDY: ULTRASO UND BREAST(S) - LEFT REASON FOR EXAM: Female, 62 years old. Palpable lump left breast. TECHNIQUE: Axial and longitudinal images of the LEFT breast were performed [facility] COMPARISON: Comparison is made with prior [...] Xu Adams MD at 14:14 EDT Tel [phone], Service support [phone], CC: Sandra Degroot; Trae Owen Reading Teacher: Signed 04-Sep-2013 Bilat Diag Digital & CAD Result: Comments: See Note; NOTES: [facility] Imaging Services [address] [place] [address] Breast Imaging Report MR#: [id number] Acct: [id number] Name: TISH MALAVE Rep #: [id number] : 1950 F 62 From: Xu Adams MD PCP: Sandra Degroot Status: REG CLI Exam# [id number] Ordering Dr: Trae Owen MD MAMMOGRAPHY - [...] Xu Adams MD at 15:01 EDT Tel [phone], Service support [phone], CC: Sandra Zane; Trae Owen Reading Teacher: Signed 04-Sep-2013 Yesika Hernandez Digital & CAD Result: Comments: See Note; NOTES: [facility] Imaging Services [address] [place] [address] Breast Imaging Report MR#: [id number] Acct: [id number] Name: TISH MALAVE Rep #: [id number] : 1950 F 62 From: Xu Adams MD PCP: Sandra Degroot Status: REG CLI Exam# [id number] Ordering Dr: Trae Owen MD ADDENDUM by Xu Adams MD on 09/07/13 at 1603 === ADDENDUM This is an addendum report. The report is dictated for clarity of the laterality. The pa tient is status post left lumpectomy and not the right lumpectomy. Electronically Signed: Xu Adams MD at 16:03 EDT Tel [phone], Service support [phone], Fax 09/07/13 1612 Date cc: Sandra Degroot; [...] Xu Adams MD at 15:01 EDT Tel [phone], Service s upport [phone], CC: Sandra Degroot; Trae Owen Reading Teacher: Signed Family History Unknown Family Member Name Dates Details Daughter 1 Comments: fibromyalgia, stiff man syndrome, lupus Status: Active Daughter 2 Comments: ET, MCTD ( lupus, RA) Status: Active Father Comments: CHF, tremor, HTN, DC Status: Active Sister 1 Comments: Br Ca Status: Active Sister 2 Comments: lupus Status: Active Son 1 Comments: DM Status: Active Social History Name Dates Details Caffeine Use Status: Active 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 Status: Active No Drug Use Status: Active Non Drinker/No Alcohol Use Status: Active Tobacco Use: Current every day smoker. Status: Active Smoking Status Name Dates Details Current every day smoker Vital Signs Date Test Result Details 7-Ybd-657665:29 Temperature 96.7 f Comments: Method: Temporal Pulse [...] W/Diff, Automated Comments: Reason for Laboratory Test .[facility] [address] [place], [place], [address] Absolute Lymph 1.42 {X10_3/ul} (Normal) Range: 0.83-4.51 [...] 4.2-5.4 WBC 10.3 K/mm3 (Normal) Range: 4.4-11.0 04-Gcs-148113:36 Comprehensive Metabolic Profil Comments: Reason for Laboratory Test .[facility] [address] [place], [place], [address] GAP 6 (Normal) Range: 5-15 CO2 27.0 [...] criteria.Please note revised GLUCOSE reference range /02/2018. 84-Slz-142777:45 URINE FABIAN CULTURE-IDENTIFICATN Comments: PATIENT NOT FASTINGPERFORMED BY: [facility] Ujbrst4393 [facility] [id number] Information: SRC:ALLA (88210) Antimicrobial MIHEAD (Normal) Comments: S = Susceptible; [...] Proteusmirabilis. (Abnormal) Urine Final report Culture,Comprehensive (Abnormal) 73-Fjo-493778:24 Urinalysis, Office (56562) UA - LEUKOCYTE ESTERASE Trace (Normal) UA - NITRITE Negative (Normal) URINE UROBILINGN DC TIMED Normal mg/dL (Normal) UA - PROTEIN Negative mg/dL (Normal) UA - PH 7 (Normal) UA - BLOOD Hemolyzed Trace (Normal) UA - SPECIFIC GRAVITY 1.015 (Normal) UA - KETONES Negative mg/dL (Normal) UA - BILIRUBIN Negative (Normal) UA - GLUCOSE Negative (Normal) 87-Bsp-319113:23 HgA1C , Office (39483) HgA1C , Office 5.8 % (Normal) Range: 4.6 - 7.1 17-You-141074:23 Blood Glucose , Office (54270) Blood Glucose , Office 117 (Normal) 29-Ebh-814267:47 CREATININE FINGERSTICK Comments: [facility] [address] [place] [address] EGFR WB > 60.0000 mL/min (Normal) CREATININE WB 0.9 mg/dL (Normal) Range: 0.55-1.02 :04 HgA1C , Office (05614) HgA1C , Office 5.7 % (Normal) Range: 4.6 - 7.1 :04 Blood Glucose , Office (83367) Blood Glucose , Office 108 (Normal) :50 CBC W/Diff, Automated Comments: Reason for Laboratory Test .[facility] [address] [place], [address] Absolute Lymph 1.83 {X10_3/ul} (Normal) [...] 4.2-5.4 WBC 6.5 K/mm3 (Normal) Range: 4.4-11.0 18-Lad-850157:50 Comprehensive Metabolic Profil Comments: Reason for Laboratory Test .[facility] [address] [place], [address] GAP 7 (Normal) Range: 5-15 CO2 31.0 mmol/L (Normal) Range: 21.0-32.0 CL 97 mmol/L (Abnormal) Range: 98-107 K 4.0 mmol/L (Normal) Range: 3.5-5.1 NA 135 mmol/L (Abnormal) Range: 136-145 T BILI 0.60 mg/dL (Normal) Range: 0.20-1.00 ALT 20 U/L (Normal) Range: 13-56 Comments: Please note revised ALT reference range vrscgyvad92/28/2018. ALK P 135 U/L (Abnormal) Range: 45-117 [...] Comments: Please note revised GLUCOSE reference range heahifhbl87/02/2018. :32 HgA1C , Office (44637) Comments: 5.7 HgA1C , Office 5.7 % (Normal) Range: 4.6 - 7.1 :32 Blood Glucose , Office (98691) Blood Glucose , Office 141 (Normal) Comments: fasting 97-Xwg-175235:04 Microscopic Examination Comments: PATIENT WAS FASTINGPERFORMED BY: [employer] [facility] [id number] Bacteria None seen (Normal) Mucus Threads Present (Normal) Epithelial Cells (non renal) 0-10 {/hpf} (Normal) Range: 0 - 10 RBC None seen {/hpf} (Normal) Range: 0 - 2 WBC 11-30 {/hpf} (Abnormal) Range: 0 - 5 70-Lir-703712:04 URINALYSIS (07651) Comments: Mar or Apr 2017; PATIENT WAS FASTINGPERFORMED BY: RealtyAPX6370 [facility] [id number] Microscopic Examination See below: (Normal) Comments: Microscopic was indicated and was performed. Nitrite, Urine Negative (Normal) Urobilinogen,Semi-Qn 0.2 mg/dL (Normal) Range: 0.2-1.0 Bilirubin Negative (Normal) Occult Blood Trace (Abnormal) Ketones Negative (Normal) Glucose Negative (Normal) Protein Negative (Normal) WBC Esterase 2+ (Abnormal) Appearance Clear (Normal) Urine-Color Yellow (Normal) pH 7.5 (Normal) Range: 5.0-7.5 Specific [place] 1.012 (Normal) Range: 1.005-1.030 16-Oxo-763949:04 MICROALBUMIN: CREATININE RATIO Comments: MarApr 2017; PATIENT WAS FASTINGPERFORMED BY: [employer] [facility] [facility] [id number] (32106) AND (23481) Alb/Creat Ratio 12.7 {mg/g_creat} (Normal) Range: 0.0-30.0 Albumin, Urine 6.3 ug/mL (Normal) Creatinine, Urine 49.6 mg/dL (Normal) 78-Gdy-422626:04 LIPID PANEL (96016) Comments: Fasting Mar or Apr 2017; PATIENT WAS FASTINGPERFORMED BY: [employer] [facility] [id number] LDL/HDL Ratio 2.3 {ratio_units} (Normal) Range: 0.0-3.2 Comments: LDL/HDL Ratio Men Women 1/2 Avg.Risk 1.0 1.5 Av g.Risk 3.6 3.2 2X Avg.Risk 6.2 5.0 3X Avg.Risk 8.0 6.1 LDL Cholesterol Calc 91 mg/dL (Normal) Range: 0-99 VLDL Cholesterol Bella 14 mg/dL (Normal) Range: 5-40 HDL Cholesterol 39 mg/dL (Abnormal) Triglycerides 69 mg/dL (Normal) Range: 0-149 Cholesterol, Total 144 mg/dL (Normal) Range: 100-199 34-Eeu-072208:04 CALCIFEDIOL (69381) Comments: Mar or Apr 2017; PATIENT WAS FASTINGPERFORMED BY: [facility]assKind[facility] at RahwayAxmyfi7979 [facility] [id number]; OV 2/6 Vitamin D, 25-Hydroxy 48.9 ng/mL (Normal) Range: 30.0-100.0 Comments: Vitamin D deficiency has been defined by the [place] ofMedicine and an Endocrine Society practice guideline as alevel of serum 25-OH vitamin D less than 20 ng/mL (1,2).The Endocrine Society went on to further define vitamin Dinsufficiency as a level between 21 and 29 ng/mL (2).1. IOM ([place] of Medicine). 2010. Dietary reference intakes for calcium and D. [place]: The National Academies Press.2. Carl[place] MF, Rene LAUREANO, Garth CARROLL, et al. Evaluation, treatment, and prevention of vitamin D deficiency: an Endocrine Society clinical practice guideline. JCEM. 2010; 96(7):1911-30. 56-Hdc-178873:04 TSH (94062) Comments: Mar or Apr 2017; PATIENT WAS FASTINGPERFORMED BY: LabOur Security TeamKindred Hospital at RahwayEqkuwk2806 [facility] [id number] TSH 1.660 {uIU/mL} (Normal) Range: 0.450-4.500 08-Lnj-707078:04 Metabolic Panel, Comprehensive Comments: Mar or Apr 2017; PATIENT WAS FASTINGPERFORMED BY: LabCoKindred Hospital at RahwayZhwvog0266 [facility] [id number] (36423) ALT (SGPT) 16 [iU]/L (Normal) Range: 0-32 [...] Glucose, Serum 100 mg/dL (Abnormal) Range: 65-99 37-Pyc-001839:04 CBC, Platelets & Auto Diff Comments: Mar or Apr 2017; PATIENT WAS FASTINGPERFORMED BY: [facility]6370 [facility] [id number] (19163) Immature Grans (Abs) 0.0 {x10E3/uL} (Normal) Range: [...] (Normal) Range: 3.4-10.8 :45 HgA1C , Office (72262) HgA1C , Office 5.8 % (Normal) Range: 4.6 - 7.1 :45 Blood Glucose , Office (02209) Blood Glucose , Office 110 (Normal) :33 CBC W/Diff, Auto - EPLAB Comments: Order Date: 05/10/16Order Info: [id number] - *CBC w/Diff - oncology ONLYAt [facility], [place], [facility] Oncologypatients receive CBC w/auto Differential ONLY. Physicianwiozzie place an order fo Only r a manual differential or Pathologistreview at his discretion. [facility]. [address] [address] [address] ARMATURE CONNECTOR: STEVIE COTA DO PH:[phone]'s Daughters Medical Center [place] Hrgxamiuqs5[address] [place], [place], [id number] Absolute Lymph 2.40 {X10_3/uL} (Normal) Range: 0.83-4.51 [...] 4.2-5.4 WBC 8.9 K/mm3 (Normal) Range: 4.4-11.0 6-Jtf-534346:33 Comprehensive Metabolic Profil Comments: Order Date: 05/10/16Order Info: [id number] - *CMP Complete Metabolic PanelWKing's Daughters Medical Center [place] Ptjfdlsilp[address] [place], [place], [address] GAP 5 (Normal) Range: 5-15 CO2 33.0 [...] D,25 Hydroxy Comments: Order Date: 05/10/16Order Info: [id number] - *Vitamin D (Calciferol)[facility] Nagdnokaxz[address] [place], [place], [address] Vitamin D 25-OH 37.0 ng/mL (Normal) Comments: Vitamin D 25(OH) Status Range Deficiency <20 ng/mL (50nmol/L) Insuffciency 20 - 30 ng/mL (50 - 75 nmol/L) Sufficiency 30 - 100 ng/mL (75 - 250 nmol/L) Toxicity >100 ng/mL (>250 nmol/L) 11-Sep-20168:37 Metabolic Panel, Comprehensive Comments: September 11; PATIENT WAS FASTINGPERFORMED BY: LabCoKindred Hospital at RahwayHlltrz0687 [facility] [id number] (74689) ALT (SGPT) 17 [iU]/L (Normal) Range: 0-32 [...] (Abnormal) Range: 65-99 :57 HgA1C , Office (49029) HgA1C , Office 5.9 % (Normal) Range: 4.6 - 7.1 :57 Blood Glucose , Office (66776) Blood Glucose , Office 118 (Normal) :30 Serum Creatinine AND GFR Comments: [facility] [address] [place], [place], [address] EST GFR - AA 87 mL/min (Normal) Comments: GFR Calc EST GFR 72 mL/min (Normal) Comments: Non- GFR Calc CREAT,SERUM 0.84 mg/dL (Normal) Range: 0.55-1.02 Comments: The validity of the calculated GFR AND GFRAA in patients over70 years has not been determined. Clinical correlation isessential. :27 Culture, Blood (WB) Comments: [facility] Ihhglosygi[address] [place], [place], [address] CUB See Note (Normal) Comments: BCNo growth in 5 days. :27 Culture, Blood (WB) Comments: [facility] Oghplnsobw8457 [facility] [address]. [place], [place], [address] CUB See Note (Normal) Comments: BCNo growth in 5 days. 9-Nhc-266206:01 COMPLEMENT C4 (78159) Comments: PATIENT NOT FASTINGPERFORMED BY: WeSpire Ffdmcw2135 [facility] [id number] Complement C4, Serum 36 mg/dL (Normal) Range: 14-44 1-Huq-758869:01 COMPLEMENT C3 (60912) Comments: PATIENT NOT FASTINGPERFORMED BY: [employer] Xzblfe9494 [facility] [id number] Complement C3, Serum 185 mg/dL (Abnormal) Range: 82-167 0-Awv-294899:01 COMPLEMENT, TOTAL (CH50) Comments: PATIENT NOT FASTINGPERFORMED BY: [facility]6370 [facility] [id number] (38274) Complement, Total (CH50) 56 U/mL (Normal) Range: 42-60 4-Zyd-578185:01 Sed Rate Erythrocyte (34368) Comments: PATIENT NOT FASTINGPERFORMED BY: [facility]6370 [facility] [id number] Sedimentation Rate-Westergren 50 mm/h (Abnormal) Range: 0-40 6-Szz-801781:01 CBC, Platelets & Auto Diff Comments: PATIENT NOT FASTINGPERFORMED BY: LabCoKindred Hospital at RahwayAadbub6387 [facility] [id number] Information: [id number], [id number] SRC: (30119) Immature Grans (Abs) 0.0 {x10E3/uL} (Normal) Range: [...] 3.77-5.28 WBC 13.6 {x10E3/uL} (Abnormal) Range: 3.4-10.8 2-Sfb-740338:49 Rapid Flu (65709 x 2) Comments: ? borderline Influenza A Ag neg a/b (Normal) : Influenza A&B Viral Culture Comments: PATIENT NOT FASTINGPERFORMED BY: WeSpire AlaMarka [facility] [id number] (13901) Viral Culture,Rapid,Influenza FLUABN (Normal) Comments: Negative:No Influenza A or B detected. :53 Urinalysis, Office (78786) UA - LEUKOCYTE ESTERASE Small (Normal) UA [...] FABIAN CULTURE-IDENTIFICATN Comments: PATIENT NOT FASTINGPERFORMED BY: SemiNex [facility] [id number] (64523) Antimicrobial MIHEAD (Normal) Comments: S = Susceptible; [...] Final report Culture,Comprehensive (Abnormal) :01 CULTURE, SPUTUM (66651) Comments: PATIENT NOT FASTINGPERFORMED BY: [employer] Ltprck5578 [facility] [id number] Result 1 HAEMIN (Abnormal) Comments: Haemophilus influenzaeModerate [...] Culture (Abnormal) :28 Blood Glucose , Office (09952) Blood Glucose , Office 109 (Normal) :48 HgA1C , Office (57223) HgA1C , Office 6.0 % (Normal) Range: 4.6 - 7.1 :48 Blood Glucose , Office (67143) Blood Glucose , Office 152 (Normal) 31-Dhr-086815:23 CBC W/Diff, Auto - EPLAB Comments: At [facility] [place], [facility] By [facility] Medical Oncologypatients receive CBC w/auto Differential ONLY. Physicianwill place an order for a manual differential or Pathologistreview at his discretion. [facility] OUTPATIENT [facility]. [address] [address] [place] [address] ARMATURE CONNECTOR: STEVIE COTA DO PH:[phone] [facility] Ioanbrxvfs[address] [place], [place], [address] ; another doc Absolute Lymph 2.39 {X10_3/uL} [...] 4.2-5.4 WBC 7.6 K/mm3 (Normal) Range: 4.4-11.0 48-Qxs-087480:23 Comprehensive Metabolic Profil Comments: Order Date: 11/03/15Interface Comments: STATOrder Date: 11/03/15WKing's Daughters Medical Center [facility] Cxortdnrfc[address] [place], [place], [address] ; another doc GAP 8 (Normal) Range: [...] 7-18 GLU 101 mg/dL (Normal) Range: 70-110 87-Xkn-386063:23 Vitamin D 1,25-Dihydroxy Comments: Order Date: 11/03/15Order Date: 11/03/15Interface Comments: STATOrder Date: 11/03/15[facility] (refer to report for specific site)refer to report for address and phone number; another doc VITD 21446 27.8 pg/mL (Normal) Range: 19.9-79.3 Comments: Performed at: [address] [id number] Director: Sascha Cedeno MD, Phone: [phone] 58-Isz-641407:01 HgA1C , Office (51484) Comments: 5.8 HgA1C , Office 5.8 % (Normal) Range: 4.6 - 7.1 07-Feb-20169:43 Microscopic Examination Comments: PATIENT WAS FASTINGPERFORMED BY: RealtyAPX6370 [place] [facility] [id number] Bacteria Few (Normal) Mucus Threads Present (Normal) Epithelial Cells (non renal) None seen {/hpf} (Normal) Range: 0 - 10 RBC None seen {/hpf} (Normal) Range: 0 - 2 WBC 0-5 {/hpf} (Normal) Range: 0 - 5 :43 Lipid Panel (12201) Comments: PATIENT WAS FASTINGPERFORMED BY: [employer]70 [facility]abora [facility] CenterLytx, Inc.[facility] [id number] LDL/HDL Ratio 1.7 {ratio_units} (Normal) Range: 0.0-3.2 [...] 116 mg/dL (Normal) Range: 100-199 :43 CALCIFEDIOL (85524) Comments: PATIENT WAS FASTINGPERFORMED BY: [employer]70 [facility] [id number] Vitamin D, 25-Hydroxy 62.9 ng/mL (Normal) Range: 30.0-100.0 Comments: Vitamin D deficiency has been defined by the [place] ofMedicine and an Endocrine Society practice guideline as alevel of serum 25-OH vitamin D less than 20 ng/mL (1,2).The Endocrine Society went on to further define vitamin Dinsufficiency as a level between 21 and 29 ng/mL (2).1. IOM ([place] of Medicine). 2010. Dietary reference intakes for calcium and D. [place]: The National Academies Press.2. Carlitos MF, Rene LAUREANO, Garth CARROLL, et al. Evaluation, treatment, and prevention of vitamin D deficiency: an Endocrine Society clinical practice guideline. JCEM. 2010; 96(7):1911-30. :43 URINALYSIS, W/ MICRO (38342) Comments: PATIENT WAS FASTINGPERFORMED BY: RealtyAPX6370 [facility] [id number] Microscopic Examination See below: (Normal) Comments: Microscopic was indicated and was performed. Microscopic Examination MICRON (Normal) Comments: Microscopic follows if indicated. Nitrite, Urine Negative (Normal) Urobilinogen,Semi-Qn 1.0 mg/dL (Normal) Range: 0.2-1.0 Bilirubin Negative (Normal) Occult Blood Negative (Normal) Ketones Negative (Normal) Glucose Negative (Normal) Protein Negative (Normal) WBC Esterase Negative (Normal) Appearance Clear (Normal) Urine-Color Yellow (Normal) pH 6.5 (Normal) Range: 5.0-7.5 Specific [place] 1.007 (Normal) Range: 1.005-1.030 :43 MICROALBUMIN: CREATININE RATIO Comments: PATIENT WAS FASTINGPERFORMED BY: [employer]70 [facility] [id number] (66149) AND (50657) Microalb/Creat Ratio <11.2 {mg/g_creat} (Normal) Range: 0.0-30.0 Microalbumin, Urine <3.0 ug/mL (Normal) Creatinine, Urine 26.8 mg/dL (Normal) :43 TSH (THYROID STIMULATING Comments: PATIENT WAS FASTINGPERFORMED BY: [facility]6370 [facility] [id number] HORMONE) (97199) TSH 0.992 {uIU/mL} (Normal) Range: 0.450-4.500 :43 Metabolic Panel, Comments: PATIENT WAS FASTINGPERFORMED BY: WeSpireKindred Hospital at RahwayCchktv5133 [facility] [id number] Information: HARD DRAW Comprehensive (17529) ALT (SGPT) 21 [iU]/L (Normal) Range: 0-32 [...] (Normal) Range: 65-99 :09 HgA1C , Office (03474) Comments: 6.2 HgA1C , Office 6.2 % (Normal) Range: 4.6 - 7.1 :09 Blood Glucose , Office (12734) Blood Glucose , Office 123 (Normal) :36 CBC W/Diff, Auto - EPLAB Comments: At [facility] Out[facility] [place], [facility] Medical Oncologypatients receive CBC w/auto Differential ONLY. Physicianwill place an order for a manual differential or Pathologistreview at his discretion. [facility] OUTPATIENT [facility]. [address] [address] [place] [address] ARMATURE CONNECTOR: STEVIE COTA DO PH:[phone] Medical [facility]ty [facility] Pekemdhvbr[address] [place], [place], [address] Absolute Lymph 2.15 {X10_3/uL} (Normal) Range: 0.83-4.51 [...] Profil Comments: Order Date: 11/03/15OV Order #: [id number] Specimen #1, #2 or #3? 1 [id number]'s Daughters Medical Center [facility] Ubobjbhdog[address] [place], [place], [address] GAP 6 (Normal) Range: 5-15 CO2 31.0 [...] (Normal) Comments: Order Date: 11/03/15OV Order #: [id number] Specimen #1, #2 or #3? 1 [id number] [facility] Ipdhbudcdq[address] [place], [address] Range: 84-246 8-Sow-129381:32 Uric Acid Comments: Order Date: 11/03/15OV Order #: [id number] Specimen #1, #2 or #3? 1 [id number] Medical Specialty Hospital [facility] Zhmyiswsry7[address] [place], [address] URIC 5.4 mg/dL (Normal) Range: 2.6-6.0 Comments: The drugs N-Acetylcysteine and Metamizole may falsely deressthis assay. 2-Ljr-936491:00 Vancomycin, Trough Level Comments: Comments: FAX REPORT TO SANDRA PENDLETONJamaal BECK [phone] AND [facility] Vtxucumglj[address] [place], [address] VANCO, TROUGH 14.7 ug/mL (Normal) Range: 5.0-15.0 Comments: VANCOMYCIN STANDARED DRUG THERAPY TROUGH LEVEL: 5.0 - 15.0 mg/LVANCOMYCIN HIGH INTENSITY THERAPY TROUGH LEVEL: 15.0 - 20 .0 mg/LHigh Intensity therapy recommended for serious lifethreatening infections include:- Wtvqvmorry-Aqaqxljvravn-Mnwgvrnds (Ventilator/Healtcare Associated)- SepsisPLEASE CONTACT PHARMACY SERVICES (#3257) FOR INTERPRETATIONOF RESULTS. 78-Jia-057912:21 M R Staph Aureus DNA by PCR Comments: Source: NASAL SWABSelect Medical Specialty Hospital [facility] Mvafymmeyu[address] [place], [place], [address] MRSA RESULT POSITIVE (Abnormal) 93-Wka-696942:22 Aerobic Bacterial Culture Comments: send for MRSA left flank; PATIENT NOT FASTINGPERFORMED BY: LabCo Sefzfu2904 Girish Harden [place] [id number] Information: SRC:MADDIE [id number] (94692) Result 1 MRSA (Abnormal) Comments: Methicillin - [...] report (Abnormal) Culture :03 HgA1C , Office (03971) Comments: 6.0 HgA1C , Office 6.0 % (Normal) Range: 4.6 - 7.1 :03 Blood Glucose , Office (35869) Blood Glucose , Office 120 (Normal) :01 POTASSIUM SERUM (90514) Comments: STAT; [facility] Bnmjikvuvy7210 [place], [place], [address] K 4.8 mmol/L (Normal) Range: 3.5-5.1 :40 Metabolic Panel, Comments: PATIENT WAS FASTINGPERFORMED BY: LabCoKindred Hospital at RahwayAgjdff8361 [facility] [id number] Information: [id number] Comprehensive (47424) ALT (SGPT) 21 [iU]/L (Normal) Range: 0-32 [...] (Abnormal) Range: 65-99 :40 HEPATIC FUNCTION PANEL (04418) Comments: PATIENT WAS FASTINGPERFORMED BY: K[employer]oupe70 [facility] [id number] Bilirubin, Direct 0.17 mg/dL (Normal) Range: 0.00-0.40 :40 Lipid Panel (12614) Comments: PATIENT WAS FASTINGPERFORMED BY: RealtyAPX6370 [facility] [id number] LDL/HDL Ratio 1.6 {ratio_units} (Normal) Range: 0.0-3.2 [...] Cholesterol, Total 128 mg/dL (Normal) Range: 100-199 4-Nww-596987:36 TSH (97799) Comments: PATIENT WAS FASTINGPERFORMED BY: weipass Ryqkxf7101 [facility] [id number] TSH 1.320 {uIU/mL} (Normal) Range: 0.450-4.500 9-Yya-836549:36 MICROALBUMIN: CREATININE RATIO Comments: PATIENT WAS FASTINGPERFORMED BY: SemiNex [facility] [id number] (71821) AND (61562) Microalb/Creat Ratio <4.6 {mg/g_creat} (Normal) Range: 0.0-30.0 Microalbumin, Urine <3.0 ug/mL (Normal) Range: 0.0-17.0 Creatinine, Urine 64.9 mg/dL (Normal) Range: 15.0-278.0 :36 LIPID PANEL (61566) Comments: PATIENT WAS FASTINGPERFORMED BY: SemiNex [facility] [id number] Information: [id number] LDL/HDL Ratio 2.9 {ratio_units} (Normal) Range: 0.0-3.2 [...] 200 mg/dL (Abnormal) Range: 100-199 :36 CALCIFEDIOL (15924) Comments: PATIENT WAS FASTINGPERFORMED BY: WeSp[employer] Ptudpu0594 [facility] [id number] Vitamin D, 25-Hydroxy 35.2 ng/mL (Normal) Range: 30.0-100.0 Comments: Vitamin D deficiency has been defined by the [place] ofMedicine and an Endocrine Society practice guideline as alevel of serum 25-OH vitamin D less than 20 ng/mL (1,2).The Endocrine Society went on to further define vitamin Dinsufficiency as a level between 21 and 29 ng/mL (2).1. IOM ([place] of Medicine). 2010. Dietary reference intakes for calcium and D. [place]: The National Academies Press.2. Carlitos MF, Rene LAUREANO, Garth CARROLL, et al. Evaluation, treatment, and prevention of vitamin D deficiency: an Endocrine Society clinical practice guideline. JCEM. 2010; 96(7):1911-30. 22-Xqb-021010:16 CBC W/Diff, Auto - EPLAB Comments: At [facility] Out[facility] [place], [facility] Medical Oncologypatients receive CBC w/auto Differential ONLY. Physicianwill place an order for a manual differential or Pathologistreview at his discretion. [facility]. [address] [address] [place] [address] ARMATURE CONNECTOR: STEVIE COTA DO PH:[phone] Medical Specialty Hospital [facility] Zdrpgvxafb16[address] [place], [place], [address] Absolute Lymph 2.05 {X10_3/uL} (Normal) Range: 0.83-4.51 [...] 4.2-5.4 WBC 6.4 K/mm3 (Normal) Range: 4.4-11.0 87-Gfn-915785:14 Comprehensive Metabolic Profil Comments: Serial Specimen #1, #2 or #3? [address] [place] [address] [address]izkpc2417 [address] [place], [place], [address] GAP 8 (Normal) Range: 5-15 CO2 30.0 [...] 7-18 GLU 94 mg/dL (Normal) Range: 70-110 40-Upk-786834:14 LDH 176 U/L (Normal) Comments: Serial Specimen #1, #2 or #3? [address] [place] [address] Zjstuwmhqr1304 [address] [place], [place], [address] Range: 84-246 83-Kdx-250011:14 Uric Acid Comments: Serial Specimen #1, #2 or #3? 1[facility] Jsdgbcffzw9[address] [place], [address] URIC 6.1 mg/dL (Abnormal) Range: 2.6-6.0 24-Lyo-992062:14 Vitamin D 1,25-Dihydroxy Comments: [facility] (refer to report for specific site)refer to report for address and phone number; ordered by another doctor VITD 1,25 85844 69.0 pg/mL (Normal) Range: 19.9-79.3 Comments: Performed at: [facility] [address] [id number] Director: Sascha Cedeno MD, Phone: [phone] 64-Xne-022718:20 HgA1C , Office (16871) HgA1C , Office 6.1 % (Normal) Range: 4.6 - 7.1 46-Ori-255957:20 Blood Glucose , Office (24242) Blood Glucose , Office 89 (Normal) 33-Rlc-892857:53 CALCIFEDIOL (45243) Comments: PATIENT WAS FASTINGPERFORMED BY: WeSpire Txyupn9084 iFlexMeDuke Raleigh Hospital [id number] Vitamin D, 25-Hydroxy 23.0 ng/mL (Abnormal) Range: 30.0-100.0 Comments: Vitamin D deficiency has been defined by the [place] ofMedicine and an Endocrine Society practice guideline as alevel of serum 25-OH vitamin D less than 20 ng/mL (1,2).The Endocrine Society went on to further define vitamin Dinsufficiency as a level between 21 and 29 ng/mL (2).1. IOM ([place] of Medicine). 2010. Dietary reference intakes for calcium and D. [place]: The National Academies Press.2. Carlitos MF, Rene NC, Garth CARROLL, et al. Evaluation, treatment, and prevention of vitamin D deficiency: an Endocrine Society clinical practice guideline. JCEM. 2010; 96(7):1911-30. :53 Lipid Panel (87646) Comments: PATIENT WAS FASTINGPERFORMED BY: LabOur Security Team Wazlcd4152 iFlexMeDuke Raleigh Hospital [id number] Information: [id number] LDL/HDL Ratio 2.8 {ratio_units} Range: 0.0-3.2 (Normal) [...] (CHOOSE See Note (Normal) Comments: Test performed at:[facility] [address]yzfcr[address] [place] [address] :00 SITE) Comments: Patient: TISH MALAVE : 1950 (64/F) Acct Num: [id number] Phys: Scot REAGAN,Deandra Unit Num: [id number] Loc: [facility] Specimen: [id number] Received: 10/12/14 1126 Spec Type: BREAST BX TISSUES TISSUES: COMMENT Please see previous specimen ([id number]) left breast tissue, stereotactic core biopsy with diagnosis of ductal carcinoma in situ. GROSS DESCRIPTION Received is one container labeled with the patient name and designated left breast. The specimen consists of multiple elongated fragments of martinez-yellow fibroadipose tissue measuring in aggregate 2.5 x 0.5 x 0.1 cm. The specimen is totally submitted in one cassette. / MARISSA:laura 10/12/14 TC:3 CPT: 51659 HEADER OPERATION: U/S guided left breast biopsy [...] Signed Shayan Ching 10/13/14 <signature on file> 0-Hpm-839026:16 Comprehensive Metabolic Profil Comments: Serial Specimen #1, #2 or #3? 1Test performed at:[facility] Lkizutzkcj8122 [facility] [place] [address] GAP 6 (Normal) Range: 5-15 [...] 7-18 GLU 97 mg/dL (Normal) Range: 70-110 7-Dib-829823:16 LDH 189 U/L (Normal) Comments: Serial Specimen #1, #2 or #3? 1Test performed at:[facility] Gqqfwxuuuv0695 [facility] [place] [address] Range: 87-241 2-Zpg-283972:16 Uric Acid Comments: Serial Specimen #1, #2 or #3? 1Test performed at:[facility] Lzgicvfepw43[address] [place] [address] URIC 5.5 mg/dL (Normal) Range: 2.6-6.0 2-Iad-627403:05 CBC W/Diff, Auto - EPLAB Only Comments: At [facility] Out[facility] [place], [facility] Medical Oncologypatients receive CBC w/auto Differential ONLY. Physicianwill place an order for a manual differential or Pathologistreview at his discretion. [facility] OUTPATIENT [facility]. [address] [place] [address] [place] [address] ARMATURE CONNECTOR: STEVIE COTA DO PH:[phone] performed at:[facility] Laborato dr[address] [place], [place] [address] Absolute Neut 2.7 {X10_3/uL} (Normal) Range: 2.0-7.7 [...] 4.4-11.0 :00 Culture, Wound Comments: Test performed at:[facility] Bxibovavpn[address] [place] [address] CUW See Note (Normal) Comments: Comments: RIGHT [...] 1 S(NF) in dicates non-formulary drug at [facility]. Approval by Infectious Disease Specialist required before non-formulary drugs may be ordered and/or dispensed. * CLSI guidelines does not recommend testing of cephalosporins. This interpretation is deduced from Beta-lactam/penicillin results. 18-Lqm-794221:16 Anaerobic & Aerobic Comments: R leg; PATIENT NOT FASTINGPERFORMED BY: LabSelect Specialty Hospital-Saginaw6370 [facility] [id number] Information: SRC:WND [id number] RIGHT LEG Culture (87053) Result 1 MRSA (Abnormal) Comments: Methicillin - [...] mmol/L (Normal) Range: 3.5-5.1 :12 :13 CALCIFEDIOL (57868) Comments: PATIENT NOT FASTINGPERFORMED BY: LabCoKindred Hospital at RahwayXlkpmd1529 [facility] [id number] Information: [id number] Vitamin D, 25-Hydroxy 23.8 ng/mL (Abnormal) Range: 30.0-100.0 Comments: Vitamin D deficiency has been defined by the [place] ofMedicine and an Endocrine Society practice guideline as alevel of serum 25-OH vitamin D less than 20 ng/mL (1,2).The Endocrine Society went on to further define vitamin Dinsufficiency as a level between 21 and 29 ng/mL (2).1. IOM ([place] of Medicine). 2010. Dietary reference intakes for calcium and D. [place]: The National Academies Press.2. Carlitos MF, Rene NC, Garth CARROLL, et al. Evaluation, treatment, and prevention of vitamin D deficiency: an Endocrine Society clinical practice guideline. JCEM. 2010; 96(7):1911-30. 16-Mth-568955:04 CBC, Platelets & Auto Comments: pls send copy to Dr epperson; Test(s) Potassium, Serum called to Dr Felix on 12/21/2013 at 23:26 ESTPATIENT NOT FASTINGPERFORMED BY: LabCoKindred Hospital at RahwayEzswyy1628 [facility] [id number] Information: [id number] Diff (81796) Immature Grans (Abs) 0.0 {x10E3/uL} (Normal) Range: [...] 3.77-5.28 WBC 5.2 {x10E3/uL} (Normal) Range: 3.4-10.8 39-Pji-949007:04 Metabolic Panel, Comprehensive Comments: pls send copy to dr epperson; Test(s) Potassium, Serum called to Dr Felix on 12/21/2013 at 23:26 ESTPATIENT NOT FASTINGPERFORMED BY: LabCoKindred Hospital at RahwayShsbzv3023 [facility] [id number] (82224) ALT (SGPT) 15 [iU]/L (Normal) Range: 0-32 [...] Glucose, Serum 79 mg/dL (Normal) Range: 65-99 42-Ejh-272409:04 HEPATIC FUNCTION PANEL Comments: pls send copy to Dr Epperson; Test(s) Potassium, Serum called to Dr Felix on 12/21/2013 at 23:26 ESTPATIENT NOT FASTINGPERFORMED BY: LabCoKindred Hospital at RahwayWlsxwo7189 [facility] [id number] (57025) Bilirubin, Direct 0.09 mg/dL (Normal) Range: 0.00-0.40 59-Ibx-66417:55 CMP Comments: Serial Specimen #1, #2 or [...] (Normal) Range: 70-110 :55 ECBCD Comments: At [facility] [facility], Dr Lang patients receiveCBC w/auto Differential ONLY. He will place an order for amanual differential or Pathologist review at his discretion.[facility].[address] [place], [place] [address]SMZ DIRECTOR: STEVIE COTA DO PH:[phone] ANC 5.3 {X10_3/uL} (Normal) Range: 2.0-7.7 B% [...] Comments: pls also fax to Dr epperson- [phone]; PATIENT NOT FASTINGPERFORMED BY: JJ [facility] Ebmjop9241 Girish ChildsDuke Raleigh Hospital [id number] Information: [id number] CC:[id number] ([id number]) Immature Grans (Abs) 0.0 {x10E3/uL} (Normal) Range: [...] pls also fax results to Dr epperson- [phone]; PATIENT NOT FASTINGPERFORMED BY: [employer] Yurzjx6414 [facility] [id number] ([id number]) ALT (SGPT) 17 [iU]/L (Normal) Range: 0-32 [...] (THYROID STIMULATING Comments: PATIENT NOT FASTINGPERFORMED BY: WeSpireKindred Hospital at RahwayTrrdic8146 [facility] [id number] HORMONE) ([id number]) TSH 1.350 {uIU/mL} (Normal) Range: 0.450-4.500 :46 CALCIFEDIOL (06979) Comments: PATIENT NOT FASTINGPERFORMED BY: [employer] Syqohn3050 [facility] [id number] Vitamin D, 25-Hydroxy 30.9 ng/mL (Normal) Range: 30.0-100.0 Comments: Vitamin D deficiency has been defined by the [place] ofMedicine and an Endocrine Society practice guideline as alevel of serum 25-OH vitamin D less than 20 ng/mL (1,2).The Endocrine Society went on to further define vitamin Dinsufficiency as a level between 21 and 29 ng/mL (2).1. IOM ([place] of Medicine). 2010. Dietary reference intakes for calcium and D. [place]: The National Academies Press.2. Carlitos MF, Rene LAUREANO, Garth CARROLL, et al. Evaluation, treatment, and prevention of vitamin D deficiency: an Endocrine Society clinical practice guideline. JCEM. 2010; 96(7):1911-30. 88-Fip-974208:28 HgA1C , Office (06732) HgA1C , Office 5.3 % (Normal) Range: 4.6 - 7.1 18-Vwi-752089:36 Renal function Panel Comments: PATIENT NOT FASTINGPERFORMED BY: [employer] Rpftxx3110 [facility] [id number] Information: ADD [id number] AND DRAW FEE [phone] ([id number]) Albumin, Serum 4.2 g/dL (Normal) Range: 3.6-4.8 [...] Glucose, Serum 114 mg/dL (Abnormal) Range: 65-99 26-Jvy-914272:36 CALCIFEDIOL (31047) Comments: PATIENT NOT FASTINGPERFORMED BY: WeSpireKindred Hospital at RahwayDxfflo3489 [facility] [id number] Vitamin D, 25-Hydroxy 29.9 ng/mL (Abnormal) Range: 30.0-100.0 Comments: Vitamin D deficiency has been defined by the [place] of[employer]icine and an Endocrine Society practice guideline as alevel of serum 25-OH vitamin D less than 20 ng/mL (1,2).The Endocrine Society went on to further define vitamin Dinsufficiency as a level between 21 and 29 ng/mL (2).1. IOM ([place] of [employer]). 2010. Dietary reference intakes for calcium and D. [place]: The National Academies Press.2. Carlitos MF, Rene LAUREANO, Garth CARROLL, et al. Evaluation, treatment, and prevention of vitamin D deficiency: an Endocrine Society clinical practice guideline. JCEM. 2010; 96(7):1911-30. 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 Letter Indication: Knee pain, right Knee pain, [...] (antinuclear antibody) Planned Observations MICROALBUMIN: CREATININE RATIO (86983) AND (52381)Indication: SOB (shortness of breath) On: 06-Sep-20179:47 Request TSH ([id number])Indication: SOB (shortness of breath) On: 06-Sep-20179:47 Request FABIAN CULTURE-BLOOD (53293)Indication: Elevated WBC count On: 0-Het-208159:29 Request FABIAN CULTURE-BLOOD ([id number])Indication: Elevated WBC count On: 1-Lkp-816918:29 Request MRSA Culture ([id number])Indication: Cellulitis of trunk, unspecified site of trunk On: 16-Xer-918803:04 Request Comments: nose HgA1C , Office (16712)Indication: Prediabetes On: 0-Ekn-847006:02 Request MRSA Culture ([id number])Indication: Cellulitis On: 80-Dsj-95589:40 Request FABIAN CULTURE-OTHER (84620)Indication: Cellulitis On: 71-Fpr-65225:39 Request POTASSIUM SERUM ([id number])Indication: Hyperkalemia On: 33-Xoz-59173:14 Request Comments: pls call results to [phone] Planned Encounters Medical; 2 Month FU - On: 14-Apr-2018 9:30 [facility] Sandra Degroot CNP, CNP Pili Planned Procedures Flu Vaccine (Quadrivalent) 16212Px: On: 25-Dec-2017 Intent Sandra Degroot CNP, CNP Pili PHYSICAL THERAPY ([id number])By: Gabriele, On: 17-Dec-2017 Intent [facility] - Knee - RightBy: Gabriele On: 17-Dec-[address] THORAX W CONTRAST (86158)By: On: 11-Oct-2017 Intent Sandra Degroot CNP, CNP Pili Comments: new rt lower 4.5mm lung nodule ordered by Dr. Brittney shrestha in October of 2016 CT chest without contrast PET-CT ENTIRE BODY ([id number])By: Zane On: 24-Sep-2017 Intent Sandra ZAVALA CNP Pili CONTINUOUS OVERNIGHT PULSE OXIMETRY On: 06-Sep-2017 Intent (06497)By: Sandra Degroot CNP, CNP Pili CT - Chest (IV Contrast Needed)By: On: 06-Sep-2017 Intent Sandra Degroot CNP, CNP Pili CONTINUOUS OVERNIGHT PULSE OXIMETRY On: 06-Sep-2017 Intent (23775)By: Sandra Degroot CNP, CNP, Mary E Spirometry (37549)By: Zane ZAVALA, On: 06-Sep-2017 Intent Sandra Muhammad CNP Six Minute Walk Assessment On: 06-Sep-2017 Intent (69274)By: Sandra Degroot CNP, CNP Pili Flu Vaccine (Quadrivalent) 74945Wx: On: 01-Jan-2017 Intent Nai Trevizo LPN Comments: InfluenzaLot #[id number]-09/23/18Site-R dltd, IMDose prefilled syringeVIS and ABN signedgiven by:ROSA gallardo Spirometry ([id number])By: Zane ZAVALA, On: 04-Sep-2016 Intent Sandra Degroot SHIPPING AND RECEIVING SPECIALIST, Sandra Lockwood Comments: severe airway obstruction with low vital capacity Aerosol Treatment (03523)By: Zane On: 04-Sep-2016 Intent Sandra ZAVALA Zane ZAVALA Sandra Lockwood Aerosol Treatment (04098)By: Zane On: 11-Jul-2016 Intent SALLY Sandra Lockwood Zane ZAVALA Pili Radiology - ChestBy: Zane ZAVALASandra On: 09-Jul-2016 Intent Mandie Zane ZAVALASandra Aerosol Treatment (41349)By: Zane On: 09-Jul-2016 Intent Sandra ZAVALA Zane ZAVALA Sandra Lockwood Flu Vaccine (Quadrivalent) 37631Ws: On: 07-Feb-2016 Intent Zane ZAVALA Sandra Lockwood Zane ZAVALA Pili Comments: Lot:[id number]:10/05/16Dose:0.5mLRoute:IMSite:r DltdGiven By:Emely signed Rocephin Injection, 2 Gram On: 06-Sep-2015 Intent ([id number])By: Zane ZAVALA PiliMandie Degroot CNP Pili Ultrasound - Abdomen CompleteBy: On: 13-May-2015 Intent Zane ZAVALA PiliMandie Degroot CNP Pili Venous Doppler - RightBy: Zane ZAVALA, On: 13-May-2015 Intent PiliMandie Degroot CNP Pili PHYSICAL THERAPY EVALUATION On: 14-Jul-2014 Intent (05601)By: Sandra Degroot CNP, CNP Pili Radiology - Knee - RightBy: Zane On: 14-Jul-2014 Intent SALLY Sandra Lockwood Zane ZAVALA Pili IV Needle placement (40667)By: On: 24-Feb-2014 Intent Zane ZAVALA PiilMandie Degroot CNP Pili Comments: 22G insyte initiated in R medial wrist, no s/s infiltration, redness, swelling, dsg dry intact, infusing on gravity pole at 48gtts/min- catheter removed intact, tolerated well- 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 Rocephin Injection, 2 Gram On: 24-Feb-2014 Intent (J0696)By: Sandra Degroot CNP Comments: lot # [id number]- 09/06/16site-R medial wrist route-IVdose- 2GCTyler Sandra LEE CNP ELECTROCARDIOGRAM, COMPLETE (ECG) On: 22-Dec-2013 Intent ([id number])By: Sandra Degroot CNP, CNP, Mary E FLU VAC, SPLIT, >3 YEARS, INTRAMUSC On: 30-Dec-2012 Intent (13519)By: Leslie Roberts LPN Comments: Lot:[id number]:Dose:0.5mLRoute:IMSite:L DltdGiven By:DELILAH signed IMMUNIZ ADMNIN, 1 VAC, SNGL/COMBO On: 30-Dec-2012 Intent (06460)By: Leslie Roberts LPN Planned Medications INJECTION, CEFTRIAXONE [...] benign : DISCONTINUED - METABOLIC PANEL, COMPREHENSIVE (08255) Indication: Hypertension, benign Hypertension, benign : DISCONTINUED - CBC with auto diff (45913) Indication: Hypertension, benign Hyperglycemia : How to [...] Advance Directives Name Dates Details Immunization Registry [place] - Effective on Effective: 01-Jan-201801/01/2018. Expiration date [...] patient does not have durable power of prosecuting attorney or 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 Other providers contributing to the patient's car e are set off blocker ([place]) and other: (Dr keke Owen, [place] [place]. Dr. Ahumada neurology. )., [ADDITIONAL REASON] Follow [...]
--- OUTSIDE RECORDS SUMMARY | 2018-07-02 03:40 | XMS RPT_ITS | Continuity of Care Document ---
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 [address] OFFICE VISIT Date of Service: 01/23/18 1611 MR#: [id number] Acct: [id number] Name: TISH MALAVE ep #: [id number] : 1950 From: Guido Hogue MD Age/Sex: [...] uninvolved. Biology proved ER positi ve (95%) WV positive (5%) and HER2-griffin nonamplified by FISH. [...] Code Visi t Office Visits / Consults: 66567 OV L4 Est 01/23/18 1620 <Electronically signed by Guido Hogue MD> Date Guido Hogue MD Cosigner Sig nature: Date (if applicable) CC: 17-Dec-2017 Knee 4 or More Views Result: Comments: See Note; NOTES: [facility] Imaging Services [address] [place] [address] Knee 4 or More Views MR#: [id number] Acct: [id number] Name: TISH MALAVE Rep #: [id number] : 1950 F 67 From: Fer Amos MD PCP: Sandra Degroot NP Status: REG CLI Study: Knee 4 or More Views Date of Exam: 12/17/17 Exam# [id number] Ordering Dr: Lynda Suazo STUDY: X-RAY - [...] , CC: Sandra Degroot NP; VALENTE Suazo Doll Maker: Signed 18-Nov-2017 SCREENING MAMM (CAD), BILAT Result: Comments: See Note; NOTES: [facility] [address] [facility] [facility] [place] [address] SCREENING MAMM (CAD), BILAT MR#: [id number] Acct: [id number] Name: TISH MALAVE Rep #: [id number] : 1950 F 67 From: Xu Adams MD PCP: Sandra Degroot NP Status: PRE CLI Study: SCREENING MAMM (CAD), BILAT Date of Exam: 11/18/17 Exam# [id number] Ordering Dr: Guido Hogue MD MAMM OGRAPHY [...] delay biopsy of a clinically suspicious abnormality. [id number] Electronically Signed: Xu Adams MD at 15:22 EDT Tel [phone], Service support , Fa x [phone] CC: Sandra Degroot NP; Guido Hogue MD Doll Maker: Signed 05-Oct-2017 PET/CT Tumor Base -Thigh Init Result: Comments: See Note; NOTES: [facility] Services [address] [place] [address] PET/CT Tumor Base -Thigh Init MR#: [id number] Acct: [id number] Name: TISH MALAVE Rep #: [id number] : 1950 F 66 From: Hossein Oneill DO PCP: Sandra Degroot NP Status: REG CLI Study: PET/CT Tumor Base -Thigh Init Date of Exam: 10/07/17 Exam# [id number] Ordering Dr: Sandra DegrootINA ON: FDG PET/CT [...] the axial skeletal structures. ORDER # : [id number] PET/PET/CT Tumor Base -Thigh Init IMPRESSION: 1. [...] Service support , CC: Sandra Degroot NP Doll Maker: Signed 23-Sep-2017 Chest WITH Contrast Result: Comments: See Note; NOTES: [facility] Services [address] [place] [address] Chest WITH Contrast MR#: [id number] Acct: [id number] Name: TISH MALAVE Rep #: [id number] OB: 1950 F 66 From: Vasu Wright MD PCP: Sandra Degroot NP Status: REG CLI Study: Chest WITH Contrast Date of Exam: 09/23/17 Exam# [id number] Ordering Dr: Sandra Degroot STUDY: CT CHEST [...] is normal. There are no venous anomalies ARCHAEL AND LYMPH NODES: No hilar masses and [...] verbal consultatio n. CC: Sandra Degroot NP Doll Maker: Signed 17-Jul-2017 Oncology Visit Report Result: Comments: See Note; NOTES: [facility] [place] [address] OFFICE VISIT Date of Service: 07/17/17 1446 MR#: [id number] Acct: [id number] Name: TISH MALAVE #: [id number] : 1950 From: Guido Hogue MD Age/Sex: [...] were uninvolved. Biology proved ER positive (95%) WV positive (5%) and HER2-griffin nonampl ified by [...] Chronic Code Visit Office Visits / Consults: 39263 OV L4 Est 07/17/17 1511 <Electronically signed by Guido Hurtado D> Date Guido Hogue MD Cosigner Signature: Date (if applicable) CC: 16-Nov-2016 Breast Limited Unilateral Result: Comments: See Note; NOTES: [facility] Services [address] [place] [address] Breast Limited Unilateral MR#: [id number] Acct: [id number] Name: TISH MALAVE Rep #: [id number] : 1950 F 66 From: Xu Adams MD PCP: Snadra Degroot Status: REG CLI Study: Breast Limited Unilateral Date of Exam: 11/16/16 Exam# [id number] Ordering Dr: Maeve Tarango STUDY: ULTR ASOUND [...] Xu Adams MD at 15:16 EDT Tel [phone], Service support , CC: Sandra Degroot; Maeve Tarango Doll Maker: Signed 16-Nov-2016 DIAG MAMM W/CAD, UNILAT Result: Comments: See Note; NOTES: [facility] Imaging Services [address] [place] [address] DIAG MAMM W/CAD, UNILAT MR#: [id number] Acct: [id number] Name: TISH MALAVE Rep #: [id number] : 1950 F 66 From: Xu Adams MD PCP: Sandra Degroot Status: REG CLI Study: DIAG MAMM W/CAD, UNILAT Date of Exam: 11/16/16 Exam# [id number] Ordering Dr: Maeve Tarango MAMMOGRAPHY - U [...] Xu Adams MD at 15:24 EDT Tel [phone], Service supp ort , CC: Sandra Degroot; Maeve Tarango Doll Maker: Signed 09-Aug-2016 Chest WITH Contrast Result: Comments: See Note; NOTES: [facility] Services [address] [place] [address] Verdana 4d Chest WITH Contrast MR#: [id number] Acct: [id number] Name: TISH MALAVE Rep #: [id number] : 1950 F 65 From: Mario Horton MD PCP: Sandra Degroot Status: REG CLI Study: Chest WITH Contrast Date of Exam: 08/09/16 Exam# [id number] Ordering Dr: Jean Carlos Clarke MD STUDY: [...] CC: Sandra sims; Jean Carlos Clarke MD Doll Maker: Signed 09-Jul-2016 Chest PA and Lateral Result: Comments: See Note; NOTES: [facility] Imaging Services [address] [place] [address] Verdana 4d Chest PA and Lateral MR#: [id number] Acct: [id number] Name: TISH MALAVE Rep #: [id number] : 1950 F 65 From: Xu Adams MD PCP: Sandra Degroot Status: REG CLI Study: Chest PA and Lateral Date of Exam: 07/09/16 Exam# [id number] Ordering Dr: Sandra Degroot STUDY: X-RAY C [...] Xu Adams MD at 13:03 EDT Tel [phone], Service support [phone], CC: Sandra Degroot Doll Maker: Signed 07-Jun-2016 SCREENING MAMM (CAD), BILAT Result: Comments: See Note; NOTES: [facility] Services [address] [place] [address] Verda 4d SCREENING MAMM (CAD), BILAT MR#: [id number] Acct: [id number] Name: TISH MALAVE Rep #: [id number] : 1950 F 65 From: Xu Adams MD PCP: Sandra Degroot Status: REG CLI Study: SCREENING MAMM (CAD), BILAT Date of Exam: 06/07/16 Exam# [id number] Ordering Dr: Rona Taranog MAMMOGRAPHY - BILATERAL SCREENING REASON FOR EXAM: [...] delay biopsy of a clinically suspicious abnormality. [id number] Electronically Signed: Xu Adams MD at 8:17 EST Tel [phone], Service support [phone], CC: Sandra Degroot; Maeve Emelina Doll Maker: Signed 30-Apr-2016 Chest without Contrast Result: Comments: See Note; NOTES: [facility] Services [address] [place] [address] Kattydana 4d Chest without Contrast MR#: [id number] Acct: [id number] Name: TISH MALAVE Rep #: [id number] : 1950 F 65 From: Lex Mosley MD PCP: Sandra Degroot Status: REG CLI Study: Chest without Contrast Date of Exam: 04/30/16 Exam# [id number] Ordering Dr: Jean Carlos Clarke MD [facility] DY: CT CHEST WITHOUT CONTRAST [...] CC: Sandra Degroot; Jean Carlos Clarke MD Doll Maker: Signed 12-Oct-2015 Dexa Bone Density Study (HP) Result: Comments: See Note; NOTES: [facility] Imaging Services [address] [place] [address] Verdana 4d Dexa Bone Density Study () MR#: [id number] Acct: [id number] Name : TISH MALAVE Rep #: [id number] : 1950 F 64 From: Xu Adams MD PCP: Sandra Degroot Status: REG CL Study: Dexa Bone Density Study (HP) Date of Exam: 10/12/15 Exam# [id number] Ordering Dr: Trae Owen MD STUDY: DUAL [...] Xu Adams MD at 13:05 EDT Tel [phone], Service support [phone], CC: Sandra Degroot; Trae Oewn Doll Maker: Signed 26-May-2015 Bilat Diag Digital AND CAD Result: Comments: See Note; NOTES: [facility] Imaging Services [address] [place] [address] Verdana 4d Bilat Diag Digital AND CAD MR#: [id number] Acct: [id number] Name: TISH MALAVE Rep #: [id number] : 1950 F 64 From: Xu Adams MD PCP: Sandra Degroot Status: REG CLI Study: Bilat Diag Digital AND CAD Date of Exam: 05/26/15 Exam# [id number] Ordering Dr: Deandra Ellison MD MAMMOGRAPHY - [...] Xu Adams MD at 9:06 EST Tel [phone], Service support [phone], CC: Sandra Degroot; Deandra Ellison MD Doll Maker: Signed 17-May-2015 Abdomen Complete Result: Comments: See Note; NOTES: [facility] Services [address] [place] [address] Verdana 4d Abdomen Complete MR#: [id number] Acct: [id number] Name: TISH MALAVE Rep #: [id number] : 1950 F 64 From: Jaclyn Rojas MD PCP: Sandra Degroot Status: REG CLI Study: Abdomen Complete Date of Exam: 05/17/15 Exam# [id number] Ordering Dr: Sandra Degroot STUDY: A BDOMINAL [...] at 14:26 EST Tel , Service support [phone], CC: Sandra Degroot Doll Maker: Signed 14-Oct-2014 History and Physical Exam Result: Comments: See Note; NOTES: [facility] Medical Records Department [address] [place] [address] History and Physical 10/14/14 1021 MR#: [id number] Acct: [id number] Name: TISH MALAVE Rep #: [id number] : 1950 64 From: Deandra Ellison MD PCP: Sandra Degroot Status: REG CLI Y Location: [facility] History and Physical - Blank Date [...] 1cm) N0 (3 SLN negative) ER 95% WV 5%, Her2-negative Hypertension Asthma/COPD Past Surgical History: [...] Hx of NEOPLASM, MALIGNANT, BREAST, CENTRAL (ICD-174.1) (ZYY03-W77.119) See below. Problem # 2: Other (abnormal) findings on radiological examination of breast (ICD-793.89) ( EFL53-A96.8) I have discussed above with the patient [...] Operative Report Result: Comments: See Note; NOTES: [facility] Medical Records Department [address] [place] [address] Operative Report 10/12/14 1154 MR#: [id number] Acct: [id number] Name: TISH MALAVE Rep #: [id number] : 1950 63 From: Deandra Ellison MD PCP: Sandra Degroot Status: REG CLI Y Location: [facility] Report of Operation Date of Procedure: [...] 1st Lesion Result: Comments: See Note; NOTES: [facility] Imaging Services [address] [place] [address] Ultrasound Report MR#: [id number] Acct: [id number] Name: TISH MALAVE Rep #: [id number] : 1950 F 63 From: Xu Adams MD PCP: Sandra Degroot Status: [facility] CL Study: US Breast Biopsy 1st Lesion Date of Exam: 10/12/14 Exam# [id number] Ordering Dr: Deandra Ellison MD STUDY : [...] Xu Adams MD at 10:43 EDT Tel [phone], Service support [phone], CC: Sandra Degroot; Deandra Ellison MD Doll Maker: Signed 01-Oct-2014 Breast Limited Unilateral Result: Comments: See Note; NOTES: [facility] Imaging Services [address] [place] [address] Ultrasound Report MR#: [id number] Acct: [id number] Name: TISH MALAVE Rep #: [id number] : 1950 F 63 From: Xu Adams MD PCP: Sandra Degroot Status: REG CLI Study: Breast Limited Unilateral Date of Exam: 10/01/14 Exam# [id number] Ordering Dr: Trae Owen MD STUDY : [...] Xu Adams MD at 14:52 EDT Tel [phone], Service support [phone], CC: Sandra Degroot; Trae Owen Doll Maker: Signed 01-Oct-2014 Unilat Lt Diag Digital AND CAD Result: Comments: See Note; NOTES: [facility] Imaging Services [address] [place] [address] Breast Imaging Report MR#: [id number] Acct: [id number] Name: TISH MALAVE Rep #: [id number] : 1950 F 63 From: Xu Adams MD PCP: Sandra Degroot Status: REG CLI Study: Unilat Lt Diag Digital AND CAD Date of Exam: 10/01/14 Exam# [id number] Ordering Dr: Trae Owen MD MAMMOGRAPHY - [...] Xu Adams MD at 14:29 EDT Tel [phone], Service support [phone], CC: Sandra Degroot; Trae Owen Doll Maker: Signed 07-Sep-2014 PT Discharge Summary Result: Comments: See Note; NOTES: [facility] [address] [place] [address] Fax REHABILITATION SERVICES DISCHARGE SUMMARY MR#: [id number] Acct: [id number] Name: TISH MALAVE Rep #: [id number] : 1950 63 From: Ainsley Ingram Referring Dr.: Sandra Degroot Status: PRE RCR Eval Date: Discharge Da te: DATE OF SERVICE: Date of initial evaluation is July 20, 2014. The patient attended physical therapy for initial evaluation and has not returned since. PT feels it is appropriate she be dis charged from [facility]. Ainsley Ingram DPT T: CHAPIN JOB: [id number] <Electronically signed by Ainsley Ingram > 09/07/14 1459 CC: Signed 20-Jul-2014 Inital Evaluation - PT Result: Comments: See Note; NOTES: [facility] [address] [place] [address] Fax REHABILITATION SERVICES INITIAL EVALUATION MR#: [id number] Acct: [id number] Name: TISH MALAVE Rep #: [id number] : 1950 63 From: Ainsley Ingram Referring Dr.: Sandra Degroot Status: REG R Insurance: ARTHUR Francisco [facility] FOR [facility] Pham Date: DATE [...] pain. Ainsley Ingram DPT T: CHAPIN JOB: [id number] <Electronically signed by Ainsley Ingram > 5 1632 CC: Signed For Medicare only, by signing this I certify the plan of care. Physicians Signature Date 14-Jul-2014 Knee 4 or More Views Result: Comments: See Note; NOTES: [facility] Imaging Services [address] [place] [address] Radiology Report MR#: [id number] Acct: [id number] Name: TISH MALAVE Rep #: [id number] : 1950 F 63 From: Nasir Rodriguez DO PCP: Sandra Degroot Status: REG CLI Study: Knee 4 or More Views Date of Exam: 07/14/14 Exam# [id number] Ordering Dr: Sandra Degroot STUDY: X-RAY - [...] Nasir Rodriguez DO at 15:14 EDT Tel [phone], Service support [phone], RAD/Knee 4 or More Views IMPRESSION: Degenerative arthrosis. Electronically Signed: Nasir Rodriguez DO at 15:14 EDT Tel [phone], Service support [phone], Fax CC: Sandra Degroot Doll Maker: Signed 24-May-2014 Bilat Diag Digital AND CAD Result: Comments: See Note; NOTES: [facility] Imaging Services [address] [place] [address] Breast Imaging Report MR#: [id number] Acct: [id number] Name: TISH MALAVE Rep #: [id number] : 1950 F 63 From: Xu Adams MD PCP: Sandra Degroot Status: REG CLI Study: Bilat Diag Digital AND CAD Date of Exam: 05/24/14 Exam# [id number] Ordering Dr: Trae Owen MD M AMMOGRAPHY [...] Xu Adams MD at 9:22 EST Tel [phone], Service suppo rt [phone], CC: Sandra Degroot; Trae Owen Doll Maker: Signed 04-Sep-2013 Breast Unilateral Result: Comments: See Note; NOTES: [facility] Imaging Services [address] [place] [address] Ultrasound Report MR#: [id number] Acct: [id number] Name: TISH MALAVE Rep #: [id number] : 1950 F 62 From: Xu Adams MD PCP: Sandra Degroot Status: REG CLI Study: Breast Unilateral Date of Exam: 09/04/13 Exam# [id number] Ordering Dr: Trae Owen MD STUDY: ULTRASO [...] Xu Adams MD at 14:14 EDT Tel [phone], Service support [phone], CC: Sandra Degroot; Trae Owen Doll Maker: Signed 04-Sep-2013 Bilat Diag Digital & CAD Result: Comments: See Note; NOTES: [facility] Imaging Services [address] [place] [address] Breast Imaging Report MR#: [id number] Acct: [id number] Name: TISH MALAVE Rep #: [id number] : 1950 F 62 From: Xu Adams MD PCP: Sandra Degroot Status: REG CLI Exam# [id number] Ordering Dr: Trae Owen MD MAMMOGRAPHY - [...] Xu Adams MD at 15:01 EDT Tel [phone], Service support [phone], CC: Sandra Zane; Trae Owen Doll Maker: Signed 04-Sep-2013 Yesika Hernandez Digital & CAD Result: Comments: See Note; NOTES: [facility] Imaging Services [address] [place] [address] Breast Imaging Report MR#: [id number] Acct: [id number] Name: TISH MALAVE Rep #: [id number] : 1950 F 62 From: Xu Adams MD PCP: Sandra Degroot Status: REG CLI Exam# [id number] Ordering Dr: Trae Owen MD ADDENDUM by Xu Adams MD on 09/07/13 at 1603 === ADDENDUM This is an addendum report. The report is dictated for clarity of the laterality. The pa tient is status post left lumpectomy and not the right lumpectomy. Electronically Signed: Xu Adams MD at 16:03 EDT Tel [phone], Service support [phone], Fax 09/07/13 1612 Date cc: Sandra Degroot; [...] Xu Adams MD at 15:01 EDT Tel [phone], Service s upport [phone], CC: Sandra Degroot; Trae Owen Doll Maker: Signed Family History Unknown Family Member Name Dates Details Daughter 1 Comments: fibromyalgia, stiff man syndrome, lupus Status: Active Daughter 2 Comments: ET, MCTD ( lupus, RA) Status: Active Father Comments: CHF, tremor, HTN, MS Status: Active Sister 1 Comments: Br Ca Status: Active Sister 2 Comments: lupus Status: Active Son 1 Comments: DM Status: Active Social History Name Dates Details Caffeine Use Status: Active 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 Status: Active No Drug Use Status: Active Non Drinker/No Alcohol Use Status: Active Tobacco Use: Current every day smoker. Status: Active Smoking Status Name Dates Details Current every day smoker Vital Signs Date Test Result Details 5-Yfl-766883:29 Temperature 96.7 f Comments: Method: Temporal Pulse [...] W/Diff, Automated Comments: Reason for Laboratory Test .[facility] [address] [place], [place], [address] Absolute Lymph 1.42 {X10_3/ul} (Normal) Range: 0.83-4.51 [...] 4.2-5.4 WBC 10.3 K/mm3 (Normal) Range: 4.4-11.0 45-Emj-848307:36 Comprehensive Metabolic Profil Comments: Reason for Laboratory Test .[facility] [address] [place], [place], [address] GAP 6 (Normal) Range: 5-15 CO2 27.0 [...] A.D.A. criteria.Please note revised GLUCOSE reference range kraewfcsz30/02/2018. 46-Haj-341156:45 URINE FABIAN CULTURE-IDENTIFICATN Comments: PATIENT NOT FASTINGPERFORMED BY: [facility] Pmkvdb8189 [facility] [id number] Information: SRC:ALLA (44553) Antimicrobial MIHEAD (Normal) Comments: S = Susceptible; [...] Proteusmirabilis. (Abnormal) Urine Final report Culture,Comprehensive (Abnormal) 07-Llc-920113:24 Urinalysis, Office (29284) UA - LEUKOCYTE ESTERASE Trace (Normal) UA - NITRITE Negative (Normal) URINE UROBILINGN DC TIMED Normal mg/dL (Normal) UA - PROTEIN Negative mg/dL (Normal) UA - PH 7 (Normal) UA - BLOOD Hemolyzed Trace (Normal) UA - SPECIFIC GRAVITY 1.015 (Normal) UA - KETONES Negative mg/dL (Normal) UA - BILIRUBIN Negative (Normal) UA - GLUCOSE Negative (Normal) 63-Ghc-319648:23 HgA1C , Office (60729) HgA1C , Office 5.8 % (Normal) Range: 4.6 - 7.1 45-Rbs-490416:23 Blood Glucose , Office (77826) Blood Glucose , Office 117 (Normal) 18-Ppg-657891:47 CREATININE FINGERSTICK Comments: [facility] [address] [place] [address] EGFR WB > 60.0000 mL/min (Normal) CREATININE WB 0.9 mg/dL (Normal) Range: 0.55-1.02 :04 HgA1C , Office (36026) HgA1C , Office 5.7 % (Normal) Range: 4.6 - 7.1 :04 Blood Glucose , Office (30617) Blood Glucose , Office 108 (Normal) :50 CBC W/Diff, Automated Comments: Reason for Laboratory Test .[facility] [address] [place], [address] Absolute Lymph 1.83 {X10_3/ul} (Normal) [...] 4.2-5.4 WBC 6.5 K/mm3 (Normal) Range: 4.4-11.0 79-Bnd-144189:50 Comprehensive Metabolic Profil Comments: Reason for Laboratory Test .[facility] [address] [place], [address] GAP 7 (Normal) Range: 5-15 CO2 31.0 mmol/L (Normal) Range: 21.0-32.0 CL 97 mmol/L (Abnormal) Range: 98-107 K 4.0 mmol/L (Normal) Range: 3.5-5.1 NA 135 mmol/L (Abnormal) Range: 136-145 T BILI 0.60 mg/dL (Normal) Range: 0.20-1.00 ALT 20 U/L (Normal) Range: 13-56 Comments: Please note revised ALT reference range kihhngvrx29/28/2018. ALK P 135 U/L (Abnormal) Range: 45-117 [...] Comments: Please note revised GLUCOSE reference range fubtbtpxv13/02/2018. :32 HgA1C , Office (26672) Comments: 5.7 HgA1C , Office 5.7 % (Normal) Range: 4.6 - 7.1 :32 Blood Glucose , Office (70671) Blood Glucose , Office 141 (Normal) Comments: fasting 21-Kjd-652700:04 Microscopic Examination Comments: PATIENT WAS FASTINGPERFORMED BY: [facility] [facility] [id number] Bacteria None seen (Normal) Mucus Threads Present (Normal) Epithelial Cells (non renal) 0-10 {/hpf} (Normal) Range: 0 - 10 RBC None seen {/hpf} (Normal) Range: 0 - 2 WBC 11-30 {/hpf} (Abnormal) Range: 0 - 5 34-Toi-808312:04 URINALYSIS (90065) Comments: Mar or Apr 2017; PATIENT WAS FASTINGPERFORMED BY: [employer] [facility] [id number] Microscopic Examination See below: (Normal) Comments: Microscopic was indicated and was performed. Nitrite, Urine Negative (Normal) Urobilinogen,Semi-Qn 0.2 mg/dL (Normal) Range: 0.2-1.0 Bilirubin Negative (Normal) Occult Blood Trace (Abnormal) Ketones Negative (Normal) Glucose Negative (Normal) Protein Negative (Normal) WBC Esterase 2+ (Abnormal) Appearance Clear (Normal) Urine-Color Yellow (Normal) pH 7.5 (Normal) Range: 5.0-7.5 Specific [place] 1.012 (Normal) Range: 1.005-1.030 31-Jcj-728002:04 MICROALBUMIN: CREATININE RATIO Comments: MarApr 2017; PATIENT WAS FASTINGPERFORMED BY: [employer] [facility] [id number] (10720) AND (25874) Alb/Creat Ratio 12.7 {mg/g_creat} (Normal) Range: 0.0-30.0 Albumin, Urine 6.3 ug/mL (Normal) Creatinine, Urine 49.6 mg/dL (Normal) 19-Oto-353480:04 LIPID PANEL (09506) Comments: Fasting Mar or Apr 2017; PATIENT WAS FASTINGPERFORMED BY: [employer] [address] [facility] [id number] LDL/HDL Ratio 2.3 {ratio_units} (Normal) Range: 0.0-3.2 Comments: LDL/HDL Ratio Men Women 1/2 Avg.Risk 1.0 1.5 Av g.Risk 3.6 3.2 2X Avg.Risk 6.2 5.0 3X Avg.Risk 8.0 6.1 LDL Cholesterol Calc 91 mg/dL (Normal) Range: 0-99 VLDL Cholesterol Bella 14 mg/dL (Normal) Range: 5-40 HDL Cholesterol 39 mg/dL (Abnormal) Triglycerides 69 mg/dL (Normal) Range: 0-149 Cholesterol, Total 144 mg/dL (Normal) Range: 100-199 86-Ajc-122406:04 CALCIFEDIOL (30314) Comments: Mar or Apr 2017; PATIENT WAS FASTINGPERFORMED BY: [employer] [facility] HospitalKenavi99[address] [facility] [id number]; OV 2/6 Vitamin D, 25-Hydroxy 48.9 ng/mL (Normal) Range: 30.0-100.0 Comments: Vitamin D deficiency has been defined by the [place] ofMedicine and an Endocrine Society practice guideline as alevel of serum 25-OH vitamin D less than 20 ng/mL (1,2).The Endocrine Society went on to further define vitamin Dinsufficiency as a level between 21 and 29 ng/mL (2).1. IOM ([place] of Medicine). 2010. Dietary reference intakes for calcium and D. [place]: The National Academies Press.2. [place] MF, Rene LAUREANO, Garth CARROLL, et al. Evaluation, treatment, and prevention of vitamin D deficiency: an Endocrine Society clinical practice guideline. JCEM. 2010; 96(7):1911-30. 55-Dnm-795968:04 TSH (77175) Comments: Mar or Apr 2017; PATIENT WAS FASTINGPERFORMED BY: LabImagryMarlton Rehabilitation HospitalHrpstr3854 [facility] [id number] TSH 1.660 {uIU/mL} (Normal) Range: 0.450-4.500 47-Qen-216029:04 Metabolic Panel, Comprehensive Comments: Mar or Apr 2017; PATIENT WAS FASTINGPERFORMED BY: LabCoMarlton Rehabilitation HospitalRobqqo8450 [facility] [id number] (87294) ALT (SGPT) 16 [iU]/L (Normal) Range: 0-32 [...] Glucose, Serum 100 mg/dL (Abnormal) Range: 65-99 59-Aqu-882022:04 CBC, Platelets & Auto Diff Comments: Mar or Apr 2017; PATIENT WAS FASTINGPERFORMED BY: [facility]6[address] [facility] [id number] (81664) Immature Grans (Abs) 0.0 {x10E3/uL} (Normal) Range: [...] (Normal) Range: 3.4-10.8 :45 HgA1C , Office (03496) HgA1C , Office 5.8 % (Normal) Range: 4.6 - 7.1 :45 Blood Glucose , Office (53738) Blood Glucose , Office 110 (Normal) :33 CBC W/Diff, Auto - EPLAB Comments: Order Date: 05/10/16Order Info: [id number] - *CBC w/Diff - oncology ONLYAt [facility] Medical Oncologypatients receive CBC w/auto Differential ONLY. Physicianwiozzie place an order fo Only r a manual differential or Pathologistreview at his discretion. [facility]. [address] [place] [address] [place] [address] FUNERAL PROFESSIONAL: STEVIE COTA DO PH:[phone] Hospital [facility] Jgslvknrpw5[address]. [place], [place], [address] Absolute Lymph 2.40 {X10_3/uL} (Normal) Range: 0.83-4.51 [...] 4.2-5.4 WBC 8.9 K/mm3 (Normal) Range: 4.4-11.0 4-Vzp-149655:33 Comprehensive Metabolic Profil Comments: Order Date: 05/10/16Order Info: [id number] - *CMP Complete Metabolic PanelWSCCI Hospital [facility]ima Ohqodtaefm38[address] [place], [place], [address] GAP 5 (Normal) Range: 5-15 CO2 33.0 [...] D,25 Hydroxy Comments: Order Date: 05/10/16Order Info: [id number] - *Vitamin D (Calciferol)[facility] Rocgtrfooo45[address] [place], [place], [address] Vitamin D 25-OH 37.0 ng/mL (Normal) Comments: Vitamin D 25(OH) Status Range Deficiency <20 ng/mL (50nmol/L) Insuffciency 20 - 30 ng/mL (50 - 75 nmol/L) Sufficiency 30 - 100 ng/mL (75 - 250 nmol/L) Toxicity >100 ng/mL (>250 nmol/L) 11-Sep-20168:37 Metabolic Panel, Comprehensive Comments: September 11; PATIENT WAS FASTINGPERFORMED BY: LabCoMarlton Rehabilitation HospitalGprvgy8738 [facility] [id number] (57885) ALT (SGPT) 17 [iU]/L (Normal) Range: 0-32 [...] (Abnormal) Range: 65-99 :57 HgA1C , Office (67792) HgA1C , Office 5.9 % (Normal) Range: 4.6 - 7.1 :57 Blood Glucose , Office (07546) Blood Glucose , Office 118 (Normal) :30 Serum Creatinine AND GFR Comments: [facility] [address] [place], [place], [address] EST GFR - AA 87 mL/min (Normal) Comments: GFR Calc EST GFR 72 mL/min (Normal) Comments: Non- GFR Calc CREAT,SERUM 0.84 mg/dL (Normal) Range: 0.55-1.02 Comments: The validity of the calculated GFR AND GFRAA in patients over70 years has not been determined. Clinical correlation isessential. :27 Culture, Blood (WB) Comments: [facility] Wwgaakivvp[address] [place], [place], [address] CUB See Note (Normal) Comments: BCNo growth in 5 days. :27 Culture, Blood (WB) Comments: [facility] Lhhttxwxcn8293 [facility] [place], [place], [address] CUB See Note (Normal) Comments: BCNo growth in 5 days. 1-Mjh-086389:01 COMPLEMENT C4 (60183) Comments: PATIENT NOT FASTINGPERFORMED BY: [employer] Affvra5097 [facility] [id number] Complement C4, Serum 36 mg/dL (Normal) Range: 14-44 8-Sla-783294:01 COMPLEMENT C3 (90415) Comments: PATIENT NOT FASTINGPERFORMED BY: [employer] Smvogh0625 [facility] [id number] Complement C3, Serum 185 mg/dL (Abnormal) Range: 82-167 5-Enm-922082:01 COMPLEMENT, TOTAL (CH50) Comments: PATIENT NOT FASTINGPERFORMED BY: [facility]6370 [facility] [id number] (06481) Complement, Total (CH50) 56 U/mL (Normal) Range: 42-60 6-Pgz-946853:01 Sed Rate Erythrocyte (16880) Comments: PATIENT NOT FASTINGPERFORMED BY: [facility]6370 [facility] [id number] Sedimentation Rate-Westergren 50 mm/h (Abnormal) Range: 0-40 1-Spb-148003:01 CBC, Platelets & Auto Diff Comments: PATIENT NOT FASTINGPERFORMED BY: LabCoMarlton Rehabilitation HospitalRglyou3279 [facility] [id number] Information: [id number], [id number] SRC: (03371) Immature Grans (Abs) 0.0 {x10E3/uL} (Normal) Range: [...] 3.77-5.28 WBC 13.6 {x10E3/uL} (Abnormal) Range: 3.4-10.8 7-Ivw-942282:49 Rapid Flu (46522 x 2) Comments: ? borderline Influenza A Ag neg a/b (Normal) : Influenza A&B Viral Culture Comments: PATIENT NOT FASTINGPERFORMED BY: [employer] PLAYD8 [facility] [id number] (83704) Viral Culture,Rapid,Influenza FLUABN (Normal) Comments: Negative:No Influenza A or B detected. :53 Urinalysis, Office (20592) UA - LEUKOCYTE ESTERASE Small (Normal) UA [...] FABIAN CULTURE-IDENTIFICATN Comments: PATIENT NOT FASTINGPERFORMED BY: QualySense [facility] [id number] (19939) Antimicrobial MIHEAD (Normal) Comments: S = Susceptible; [...] Final report Culture,Comprehensive (Abnormal) :01 CULTURE, SPUTUM (18570) Comments: PATIENT NOT FASTINGPERFORMED BY: [employer] Frvhsc0233 [facility] [id number] Result 1 HAEMIN (Abnormal) Comments: Haemophilus influenzaeModerate [...] Culture (Abnormal) :28 Blood Glucose , Office (16793) Blood Glucose , Office 109 (Normal) :48 HgA1C , Office (12764) HgA1C , Office 6.0 % (Normal) Range: 4.6 - 7.1 :48 Blood Glucose , Office (09261) Blood Glucose , Office 152 (Normal) 06-Swn-392634:23 CBC W/Diff, Auto - EPLAB Comments: At [facility] Medical Oncologypatients receive CBC w/auto Differential ONLY. Physicianwill place an order for a manual differential or Pathologistreview at his discretion. [facility]. [address] [place] [address] [place] [address] FUNERAL PROFESSIONAL: STEVIE COTA DO PH:[phone] Deaconess Hospital F[address]brzleaa[address] [place], [place], [address] ; another doc Absolute Lymph 2.39 {X10_3/uL} [...] 4.2-5.4 WBC 7.6 K/mm3 (Normal) Range: 4.4-11.0 70-Mdq-701157:23 Comprehensive Metabolic Profil Comments: Order Date: 11/03/15Interface Comments: STATOrder Date: 11/03/15WSCCI [facility] Oewwfoligm[address] [place], [place], [address] ; another doc GAP 8 (Normal) Range: [...] 7-18 GLU 101 mg/dL (Normal) Range: 70-110 42-Ija-054912:23 Vitamin D 1,25-Dihydroxy Comments: Order Date: 11/03/15Order Date: 11/03/15Interface Comments: STATOrder Date: 11/03/15[facility] (refer to report for specific site)refer to report for address and phone number; another doc VITD 09864 27.8 pg/mL (Normal) Range: 19.9-79.3 Comments: Performed at: [address] [id number] Director: Sascha Cedeno MD, Phone: [phone] 36-Uul-195252:01 HgA1C , Office (48107) Comments: 5.8 HgA1C , Office 5.8 % (Normal) Range: 4.6 - 7.1 07-Feb-20169:43 Microscopic Examination Comments: PATIENT WAS FASTINGPERFORMED BY: [employer]6370 [facility] [id number] Bacteria Few (Normal) Mucus Threads Present (Normal) Epithelial Cells (non renal) None seen {/hpf} (Normal) Range: 0 - 10 RBC None seen {/hpf} (Normal) Range: 0 - 2 WBC 0-5 {/hpf} (Normal) Range: 0 - 5 :43 Lipid Panel (97488) Comments: PATIENT WAS FASTINGPERFORMED BY: ClinicalBox70 AcEmpire [facility] Hospital [facility] SurgeryTellApartFormerly [facility] [id number] LDL/HDL Ratio 1.7 {ratio_units} (Normal) Range: 0.0-3.2 [...] 116 mg/dL (Normal) Range: 100-199 :43 CALCIFEDIOL (82586) Comments: PATIENT WAS FASTINGPERFORMED BY: [facility]70 [facility] [id number] Vitamin D, 25-Hydroxy 62.9 ng/mL (Normal) Range: 30.0-100.0 Comments: Vitamin D deficiency has been defined by the [place] ofMedicine and an Endocrine Society practice guideline as alevel of serum 25-OH vitamin D less than 20 ng/mL (1,2).The Endocrine Society went on to further define vitamin Dinsufficiency as a level between 21 and 29 ng/mL (2).1. IOM ([place] of Medicine). 2010. Dietary reference intakes for calcium and D. [place]: The National Academies Press.2. Cariltos MF, Rene LAUREANO, Garth CARROLL, et al. Evaluation, treatment, and prevention of vitamin D deficiency: an Endocrine Society clinical practice guideline. JCEM. 2010; 96(7):1911-30. :43 URINALYSIS, W/ MICRO (41365) Comments: PATIENT WAS FASTINGPERFORMED BY: [employer]6370 [facility] [id number] Microscopic Examination See below: (Normal) Comments: Microscopic was indicated and was performed. Microscopic Examination MICRON (Normal) Comments: Microscopic follows if indicated. Nitrite, Urine Negative (Normal) Urobilinogen,Semi-Qn 1.0 mg/dL (Normal) Range: 0.2-1.0 Bilirubin Negative (Normal) Occult Blood Negative (Normal) Ketones Negative (Normal) Glucose Negative (Normal) Protein Negative (Normal) WBC Esterase Negative (Normal) Appearance Clear (Normal) Urine-Color Yellow (Normal) pH 6.5 (Normal) Range: 5.0-7.5 Specific [place] 1.007 (Normal) Range: 1.005-1.030 :43 MICROALBUMIN: CREATININE RATIO Comments: PATIENT WAS FASTINGPERFORMED BY: [facility]70 [facility] [id number] (44805) AND (02494) Microalb/Creat Ratio <11.2 {mg/g_creat} (Normal) Range: 0.0-30.0 Microalbumin, Urine <3.0 ug/mL (Normal) Creatinine, Urine 26.8 mg/dL (Normal) :43 TSH (THYROID STIMULATING Comments: PATIENT WAS FASTINGPERFORMED BY: [facility]6370 [facility] [id number] HORMONE) (97703) TSH 0.992 {uIU/mL} (Normal) Range: 0.450-4.500 :43 Metabolic Panel, Comments: PATIENT WAS FASTINGPERFORMED BY: IntelligenceBankMarlton Rehabilitation HospitalDpifbi2169 [facility] [id number] Information: HARD DRAW Comprehensive (72507) ALT (SGPT) 21 [iU]/L (Normal) Range: 0-32 [...] (Normal) Range: 65-99 :09 HgA1C , Office (90721) Comments: 6.2 HgA1C , Office 6.2 % (Normal) Range: 4.6 - 7.1 :09 Blood Glucose , Office (54562) Blood Glucose , Office 123 (Normal) :36 CBC W/Diff, Auto - EPLAB Comments: At [facility] Medical Oncologypatients receive CBC w/auto Differential ONLY. Physicianwill place an order for a manual differential or Pathologistreview at his discretion. [facility]. [address] [place] [address] [place] [address] FUNERAL PROFESSIONAL: STEVIE COTA DO PH:[phone] Deaconess Hospital Voqvaesucj[address] [place], [place], [address] Absolute Lymph 2.15 {X10_3/uL} (Normal) Range: 0.83-4.51 [...] Profil Comments: Order Date: 11/03/15OV Order #: [id number] Specimen #1, #2 or #3? 1 [id number] Hospital [facility] Oxfjvvxgqb[address] [place], [place], [address] GAP 6 (Normal) Range: 5-15 CO2 31.0 [...] (Normal) Comments: Order Date: 11/03/15OV Order #: [id number] Specimen #1, #2 or #3? 1 [id number] Deaconess Hospital Dentcgiqwk[address] [place], [address] Range: 84-246 1-Gua-273469:32 Uric Acid Comments: Order Date: 11/03/15OV Order #: [id number] Specimen #1, #2 or #3? 1 [id number] Deaconess Hospital Yeyaqodiph[address] [place], [address] URIC 5.4 mg/dL (Normal) Range: 2.6-6.0 Comments: The drugs N-Acetylcysteine and Metamizole may falsely deressthis assay. 5-Uyj-131253:00 Vancomycin, Trough Level Comments: Comments: FAX REPORT TO SANDRA PENDLETONJamaal BECK [phone] AND [facility] Icrjncujmh[address] [place] [place], [address] VANCO, TROUGH 14.7 ug/mL (Normal) Range: 5.0-15.0 Comments: VANCOMYCIN STANDARED DRUG THERAPY TROUGH LEVEL: 5.0 - 15.0 mg/LVANCOMYCIN HIGH INTENSITY THERAPY TROUGH LEVEL: 15.0 - 20 .0 mg/LHigh Intensity therapy recommended for serious lifethreatening infections include:- Tqnotxaybg-Fltefuyzgmct-Hzcpwycgw (Ventilator/Healtcare Associated)- SepsisPLEASE CONTACT PHARMACY SERVICES (#1739) FOR INTERPRETATIONOF RESULTS. 85-Voo-449069:21 M R Staph Aureus DNA by PCR Comments: Source: NASAL SWABProtestant Deaconess Hospital Qkabtsxdty39[address] [place], [place], [address] MRSA RESULT POSITIVE (Abnormal) 55-Lfg-989072:22 Aerobic Bacterial Culture Comments: send for MRSA left flank; PATIENT NOT FASTINGPERFORMED BY: [facility] Uokmoh1781 Girish Harden [place] [id number] Information: SRC:MADDIE [id number] (10497) Result 1 MRSA (Abnormal) Comments: Methicillin - [...] report (Abnormal) Culture :03 HgA1C , Office (54409) Comments: 6.0 HgA1C , Office 6.0 % (Normal) Range: 4.6 - 7.1 :03 Blood Glucose , Office (51729) Blood Glucose , Office 120 (Normal) :01 POTASSIUM SERUM (13753) Comments: STAT; [facility] Oquckfqpdx0300 [place], [place], [address] K 4.8 mmol/L (Normal) Range: 3.5-5.1 :40 Metabolic Panel, Comments: PATIENT WAS FASTINGPERFORMED BY: LabCoMarlton Rehabilitation HospitalYlerka3914 [facility] [id number] Information: [id number] Comprehensive (92235) ALT (SGPT) 21 [iU]/L (Normal) Range: 0-32 [...] (Abnormal) Range: 65-99 :40 HEPATIC FUNCTION PANEL (78863) Comments: PATIENT WAS FASTINGPERFORMED BY: [facility]Box70 [facility] [id number] Bilirubin, Direct 0.17 mg/dL (Normal) Range: 0.00-0.40 :40 Lipid Panel (73491) Comments: PATIENT WAS FASTINGPERFORMED BY: [employer]6370 [facility] [id number] LDL/HDL Ratio 1.6 {ratio_units} (Normal) Range: 0.0-3.2 [...] Cholesterol, Total 128 mg/dL (Normal) Range: 100-199 3-Cru-966990:36 TSH (57563) Comments: PATIENT WAS FASTINGPERFORMED BY: [employer] Cmhcpy0185 [facility] [id number] TSH 1.320 {uIU/mL} (Normal) Range: 0.450-4.500 6-Dgb-238964:36 MICROALBUMIN: CREATININE RATIO Comments: PATIENT WAS FASTINGPERFORMED BY: QualySense [facility] [id number] (38820) AND (68944) Microalb/Creat Ratio <4.6 {mg/g_creat} (Normal) Range: 0.0-30.0 Microalbumin, Urine <3.0 ug/mL (Normal) Range: 0.0-17.0 Creatinine, Urine 64.9 mg/dL (Normal) Range: 15.0-278.0 :36 LIPID PANEL (70563) Comments: PATIENT WAS FASTINGPERFORMED BY: QualySense [facility] [id number] Information: [id number] LDL/HDL Ratio 2.9 {ratio_units} (Normal) Range: 0.0-3.2 [...] 200 mg/dL (Abnormal) Range: 100-199 :36 CALCIFEDIOL (83139) Comments: PATIENT WAS FASTINGPERFORMED BY: [employer] Kyiafv3513 [facility] [id number] Vitamin D, 25-Hydroxy 35.2 ng/mL (Normal) Range: 30.0-100.0 Comments: Vitamin D deficiency has been defined by the [place] of[place]icine and an Endocrine Society practice guideline as alevel of serum 25-OH vitamin D less than 20 ng/mL (1,2).The Endocrine Society went on to further define vitamin Dinsufficiency as a level between 21 and 29 ng/mL (2).1. IOM ([place] of Medicine). 2010. Dietary reference intakes for calcium and D. [place]: The National Academies Press.2. Carlitos MF, Rene LAUREANO, Garth CARROLL, et al. Evaluation, treatment, and prevention of vitamin D deficiency: an Endocrine Society clinical practice guideline. JCEM. 2010; 96(7):1911-30. 10-Jug-341879:16 CBC W/Diff, Auto - EPLAB Comments: At [facility] Medical Oncologypatients receive CBC w/auto Differential ONLY. Physicianwill place an order for a manual differential or Pathologistreview at his discretion. [facility]. [address] [place] [address] [address] FUNERAL PROFESSIONAL: STEVIE COTA DO PH:[phone] Deaconess Hospital Ttsuodzocc[address] [place], [place], [address] Absolute Lymph 2.05 {X10_3/uL} (Normal) Range: 0.83-4.51 [...] 4.2-5.4 WBC 6.4 K/mm3 (Normal) Range: 4.4-11.0 80-Mqt-232444:14 Comprehensive Metabolic Profil Comments: Serial Specimen #1, #2 or #3? [address] [place] [address] Munfwsfkov07[address] Rachel [place], [place], [address] GAP 8 (Normal) Range: 5-15 CO2 30.0 [...] 7-18 GLU 94 mg/dL (Normal) Range: 70-110 82-Sqf-318146:14 LDH 176 U/L (Normal) Comments: Serial Specimen #1, #2 or #3? [address] [place] [address] Zypvmvakhq5537 Rachel [place], [place], [address] Range: 84-246 33-Sns-739257:14 Uric Acid Comments: Serial Specimen #1, #2 or #3? 1[facility] Vaqubowmjv27[address] [place], [address] URIC 6.1 mg/dL (Abnormal) Range: 2.6-6.0 04-Wig-263778:14 Vitamin D 1,25-Dihydroxy Comments: [facility] (refer to report for specific site)refer to report for address and phone number; ordered by another doctor VITD 1,25 79479 69.0 pg/mL (Normal) Range: 19.9-79.3 Comments: Performed at: [facility] Lab[address] [id number] Director: Sascha Cedeno MD, Phone: [phone] 94-Dcc-133393:20 HgA1C , Office (60144) HgA1C , Office 6.1 % (Normal) Range: 4.6 - 7.1 31-Sjd-980643:20 Blood Glucose , Office (68153) Blood Glucose , Office 89 (Normal) 27-Yvv-951361:53 CALCIFEDIOL (85468) Comments: PATIENT WAS FASTINGPERFORMED BY: [employer] Orczjr4981 [employer] [facility] LaosFormerly [facility] [id number] Vitamin D, 25-Hydroxy 23.0 ng/mL (Abnormal) Range: 30.0-100.0 Comments: Vitamin D deficiency has been defined by the [place] of[place]icine and an Endocrine Society practice guideline as alevel of serum 25-OH vitamin D less than 20 ng/mL (1,2).The Endocrine Society went on to further define vitamin Dinsufficiency as a level between 21 and 29 ng/mL (2).1. IOM ([place] of Medicine). 2010. Dietary reference intakes for calcium and D. [place]: The National Academies Press.2. Carlitos MF, Rene NC, Garth CARROLL, et al. Evaluation, treatment, and prevention of vitamin D deficiency: an Endocrine Society clinical practice guideline. JCEM. 2010; 96(7):1911-30. :53 Lipid Panel (89037) Comments: PATIENT WAS FASTINGPERFORMED BY: [employer]Imag[employer] Upegdc3425 [employer] [facility] LaosFormerly [facility] [id number] Information: [id number] LDL/HDL Ratio 2.8 {ratio_units} Range: 0.0-3.2 (Normal) [...] (CHOOSE See Note (Normal) Comments: Test performed at:[facility] Fmwrkbbxbg40[address] [place] [address] :00 SITE) Comments: Patient: TISH MALAVE : 1950 (64/F) Acct Num: [id number] Phys: Scot REAGAN,Deandra Unit Num: [id number] Loc: [facility] Specimen: [id number] Received: 10/12/14 1126 Spec Type: BREAST BX TISSUES TISSUES: COMMENT Please see previous specimen ([id number]) left breast tissue, stereotactic core biopsy with diagnosis of ductal carcinoma in situ. GROSS DESCRIPTION Received is one container labeled with the patient name and designated left breast. The specimen consists of multiple elongated fragments of martinez-yellow fibroadipose tissue measuring in aggregate 2.5 x 0.5 x 0.1 cm. The specimen is totally submitted in one cassette. / MARISSA:laura 10/12/14 TC:3 CPT: 91939 HEADER OPERATION: U/S guided left breast biopsy [...] Signed Shayan Ching 10/13/14 <signature on file> 7-Hlh-264729:16 Comprehensive Metabolic Profil Comments: Serial Specimen #1, #2 or #3? 1Test performed at:[facility] Wsiogoqvwh2793 [place] [address] GAP 6 (Normal) Range: 5-15 [...] 7-18 GLU 97 mg/dL (Normal) Range: 70-110 9-Sdj-410826:16 LDH 189 U/L (Normal) Comments: Serial Specimen #1, #2 or #3? 1Test performed at:[facility] Jzjzcvjrpu7721 [facility] [address] Range: 87-241 7-Pfh-022185:16 Uric Acid Comments: Serial Specimen #1, #2 or #3? 1Test performed at:[facility] Kirbgbezeq50[address] [place] [address] URIC 5.5 mg/dL (Normal) Range: 2.6-6.0 0-Any-296193:05 CBC W/Diff, Auto - EPLAB Only Comments: At [facility] Medical Oncologypatients receive CBC w/auto Differential ONLY. Physicianwill place an order for a manual differential or Pathologistreview at his discretion. [facility]. [address] [place] [address] [place] [address] FUNERAL PROFESSIONAL: STEVIE COTA DO PH:[phone] performed at:[facility] Laborato cw[address] [place], [place] [address] Absolute Neut 2.7 {X10_3/uL} (Normal) Range: 2.0-7.7 [...] 4.4-11.0 :00 Culture, Wound Comments: Test performed at:[facility] Pdseyfmlgq1525 [place] [address] CUW See Note (Normal) Comments: Comments: RIGHT [...] 1 S(NF) in dicates non-formulary drug at [facility]. Approval by Infectious Disease Specialist required before non-formulary drugs may be ordered and/or dispensed. * CLSI guidelines does not recommend testing of cephalosporins. This interpretation is deduced from Beta-lactam/penicillin results. 81-Hua-570599:16 Anaerobic & Aerobic Comments: R leg; PATIENT NOT FASTINGPERFORMED BY: [facility]6370 [facility] [id number] Information: SRC:WND [id number] RIGHT LEG Culture (59798) Result 1 MRSA (Abnormal) Comments: Methicillin - [...] mmol/L (Normal) Range: 3.5-5.1 :12 :13 CALCIFEDIOL (74451) Comments: PATIENT NOT FASTINGPERFORMED BY: LabCoMarlton Rehabilitation HospitalZnchij2478 [facility] [id number] Information: [id number] Vitamin D, 25-Hydroxy 23.8 ng/mL (Abnormal) Range: 30.0-100.0 Comments: Vitamin D deficiency has been defined by the [place] of[place]icine and an Endocrine Society practice guideline as alevel of serum 25-OH vitamin D less than 20 ng/mL (1,2).The Endocrine Society went on to further define vitamin Dinsufficiency as a level between 21 and 29 ng/mL (2).1. IOM ([place] of Medicine). 2010. Dietary reference intakes for calcium and D. [place]: The National Academies Press.2. Carlitos MF, Rene NC, Garth CARROLL, et al. Evaluation, treatment, and prevention of vitamin D deficiency: an Endocrine Society clinical practice guideline. JCEM. 2010; 96(7):1911-30. 95-Hsm-172364:04 CBC, Platelets & Auto Comments: pls send copy to Dr epperson; Test(s) Potassium, Serum called to Dr Felix on 12/21/2013 at 23:26 ESTPATIENT NOT FASTINGPERFORMED BY: LabCoMarlton Rehabilitation HospitalTzkkjw2229 [facility] [id number] Information: [id number] Diff (15892) Immature Grans (Abs) 0.0 {x10E3/uL} (Normal) Range: [...] 3.77-5.28 WBC 5.2 {x10E3/uL} (Normal) Range: 3.4-10.8 58-Lim-029437:04 Metabolic Panel, Comprehensive Comments: pls send copy to dr epperson; Test(s) Potassium, Serum called to Dr Felix on 12/21/2013 at 23:26 ESTPATIENT NOT FASTINGPERFORMED BY: LabCoMarlton Rehabilitation HospitalXtswds3579 [facility] [id number] (61283) ALT (SGPT) 15 [iU]/L (Normal) Range: 0-32 [...] Glucose, Serum 79 mg/dL (Normal) Range: 65-99 24-Jzn-902691:04 HEPATIC FUNCTION PANEL Comments: pls send copy to Dr Epperson; Test(s) Potassium, Serum called to Dr Felix on 12/21/2013 at 23:26 ESTPATIENT NOT FASTINGPERFORMED BY: LabCoMarlton Rehabilitation HospitalEexran0413 [facility] [id number] (93864) Bilirubin, Direct 0.09 mg/dL (Normal) Range: 0.00-0.40 79-Ksf-08475:55 CMP Comments: Serial Specimen #1, #2 or [...] (Normal) Range: 70-110 :55 ECBCD Comments: At [facility], Dr Lang patients receiveCBC w/auto Differential ONLY. He will place an order for amanual differential or Pathologist review at his discretion.[facility].[address] [place], [place] [address]MIL DIRECTOR: STEVIE COTA DO PH:[phone] ANC 5.3 {X10_3/uL} (Normal) Range: 2.0-7.7 B% [...] Comments: pls also fax to Dr epperson- [phone]; PATIENT NOT FASTINGPERFORMED BY: JJ [facility] Njqxsg5347 Girish ChildsFormerly [facility] [id number] Information: [id number] CC:[id number] (83961) Immature Grans (Abs) 0.0 {x10E3/uL} (Normal) Range: [...] pls also fax results to Dr epperson- [phone]; PATIENT NOT FASTINGPERFORMED BY: [employer] Uhswvj5862 [facility] [id number] (64442) ALT (SGPT) 17 [iU]/L (Normal) Range: 0-32 [...] (THYROID STIMULATING Comments: PATIENT NOT FASTINGPERFORMED BY: IntelligenceBankMarlton Rehabilitation HospitalFcvdgt6191 [facility] [id number] HORMONE) (21850) TSH 1.350 {uIU/mL} (Normal) Range: 0.450-4.500 :46 CALCIFEDIOL (78508) Comments: PATIENT NOT FASTINGPERFORMED BY: [employer] Otvqhf9341 [facility] [id number] Vitamin D, 25-Hydroxy 30.9 ng/mL (Normal) Range: 30.0-100.0 Comments: Vitamin D deficiency has been defined by the [place] ofMedicine and an Endocrine Society practice guideline as alevel of serum 25-OH vitamin D less than 20 ng/mL (1,2).The Endocrine Society went on to further define vitamin Dinsufficiency as a level between 21 and 29 ng/mL (2).1. IOM ([place] of Medicine). 2010. Dietary reference intakes for calcium and D. [place]: The National Academies Press.2. Carlitos MF, Rene LAUREANO, Garth CARROLL, et al. Evaluation, treatment, and prevention of vitamin D deficiency: an Endocrine Society clinical practice guideline. JCEM. 2010; 96(7):1911-30. 56-Dlr-145639:28 HgA1C , Office (58021) HgA1C , Office 5.3 % (Normal) Range: 4.6 - 7.1 06-Ybm-221989:36 Renal function Panel Comments: PATIENT NOT FASTINGPERFORMED BY: [employer] Fiwukq2022 [facility] [id number] Information: ADD [id number] AND DRAW FEE [id number] [phone] ([id number]) Albumin, Serum 4.2 g/dL (Normal) Range: 3.6-4.8 [...] Glucose, Serum 114 mg/dL (Abnormal) Range: 65-99 25-Ztg-573148:36 CALCIFEDIOL (07448) Comments: PATIENT NOT FASTINGPERFORMED BY: IntelligenceBankMarlton Rehabilitation HospitalZcaqom8300 [facility] [id number] Vitamin D, 25-Hydroxy 29.9 ng/mL (Abnormal) Range: 30.0-100.0 Comments: Vitamin D deficiency has been defined by the [place] of[employer]icine and an Endocrine Society practice guideline as alevel of serum 25-OH vitamin D less than 20 ng/mL (1,2).The Endocrine Society went on to further define vitamin Dinsufficiency as a level between 21 and 29 ng/mL (2).1. IOM ([place] of Medicine). 2010. Dietary reference intakes for calcium and D. [place]: The National Academies Press.2. Carlitos MF, Rene LAUREANO, Garth CARROLL, et al. Evaluation, treatment, and prevention of vitamin D deficiency: an Endocrine Society clinical practice guideline. JCEM. 2010; 96(7):1911-30. 44-Qwf-030512:36 HEPATIC FUNCTION PANEL Comments: PATIENT NOT FASTINGPERFORMED BY: EcopolCoMarlton Rehabilitation HospitalUwleey1518 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 Indication: Smoking addiction Hypertension, benign : Reviewed [...] an appt for this saturday am with [facility] Indication: COPD (chronic obstructive pulmonary disease) Knee pain, right : Follow up in 1 month with [facility] for Gen Med Indication: Knee pain, right Knee pain, right : Follow up if no improvement or if symptoms worsen Indication: Knee pain, right Knee pain, right : Reviewed [facility] Director Letter Indication: Knee pain, right Knee pain, [...] (antinuclear antibody) Planned Observations MICROALBUMIN: CREATININE RATIO (67547) AND (76029)Indication: SOB (shortness of breath) On: 06-Sep-20179:47 Request TSH ([id number])Indication: SOB (shortness of breath) On: 06-Sep-20179:47 Request FABIAN CULTURE-BLOOD ([id number])Indication: Elevated WBC count On: 9-Eab-304053:29 Request FABIAN CULTURE-BLOOD ([id number])Indication: Elevated WBC count On: 5-Hfq-762177:29 Request MRSA Culture ([id number])Indication: Cellulitis of trunk, unspecified site of trunk On: 07-Leo-590966:04 Request Comments: nose HgA1C , Office (92333)Indication: Prediabetes On: 7-Cga-099256:02 Request MRSA Culture ([id number])Indication: Cellulitis On: 96-Ttd-20639:40 Request FABIAN CULTURE-OTHER ([id number])Indication: Cellulitis On: 14-Maj-94345:39 Request POTASSIUM SERUM ([id number])Indication: Hyperkalemia On: 31-Szd-23506:14 Request Comments: pls call results to [phone] Planned Encounters Medical; 2 Month FU - On: 14-Apr-2018 9:30 [facility] Sandra Degroot CNP, CNP Pili Planned Procedures Flu Vaccine (Quadrivalent) 61855Yf: On: 25-Dec-2017 Intent Sandra Degroot CNP, CNP Pili PHYSICAL THERAPY ([id number])By: Gabriele, On: 17-Dec-2017 Intent [facility] - Knee - RightBy: Gabriele On: 17-Dec-[address] THORAX W CONTRAST ([id number])By: On: 11-Oct-2017 Intent Sandra Degroot CNP, CNP Pili Comments: new rt lower 4.5mm lung nodule ordered by Dr. Brittney shrestha in October of 2016 CT chest without contrast PET-CT ENTIRE BODY ([id number])By: Zane On: 24-Sep-2017 Intent Sandra ZAVALA CNP Pili CONTINUOUS OVERNIGHT PULSE OXIMETRY On: 06-Sep-2017 Intent ([id number])By: Sandra Degroot CNP, CNP Pili CT - Chest (IV Contrast Needed)By: On: 06-Sep-2017 Intent Sandra Degroot CNP, CNP Pili CONTINUOUS OVERNIGHT PULSE OXIMETRY On: 06-Sep-2017 Intent ([id number])By: Sandra Degroot CNP, CNP, Mary E Spirometry ([id number])By: Zane ZAVALA, On: 06-Sep-2017 Intent Sandra Muhammad CNP Six Minute Walk Assessment On: 06-Sep-2017 Intent ([id number])By: Sandra Degroot CNP, CNP Pili Flu Vaccine (Quadrivalent) 68905Dn: On: 01-Jan-2017 Intent Nai Trevizo LPN Comments: InfluenzaLot #[id number]/23/18Site-R dltd, IMDose prefilled syringeVIS and ABN signedgiven by:ROSA gallardo Spirometry ([id number])By: Zane ZAVALA, On: 04-Sep-2016 Intent Sandra Degroot [employer], Sandra Lockwood Comments: severe airway obstruction with low vital capacity Aerosol Treatment ([id number])By: Zane On: 04-Sep-2016 Intent Sandra ZAVALA Zane ZAVALA Sandra Lockwood Aerosol Treatment ([id number])By: Zane On: 11-Jul-2016 Intent SALLY Sandra Lockwood Zane ZAVALA Pili Radiology - ChestBy: Zane ZAVALASandra On: 09-Jul-2016 Intent Mandie Zane ZAVALASandra Aerosol Treatment (56788)By: Zane On: 09-Jul-2016 Intent Sandra ZAVALA Zane ZAVALA Sandra Lockwood Flu Vaccine (Quadrivalent) 12798Mt: On: 07-Feb-2016 Intent Zane ZAVALA Sandra Lockwood Zane ZAVALA Pili Comments: Lot:[id number]:10/05/16Dose:0.5mLRoute:IMSite:r DltdGiven By:Emely signed Rocephin Injection, 2 Gram On: 06-Sep-2015 Intent ([id number])By: Zane ZAVALA PiliMandie Degroot CNP Pili Ultrasound - Abdomen CompleteBy: On: 13-May-2015 Intent Zane ZAVALA PiliMandie Degroot CNP Pili Venous Doppler - RightBy: Zane ZAVALA, On: 13-May-2015 Intent PiliMandie Degroot CNP Pili PHYSICAL THERAPY EVALUATION On: 14-Jul-2014 Intent ([id number])By: Sandra Degroot CNP, CNP Pili Radiology - Knee - RightBy: Zane On: 14-Jul-2014 Intent SALLY Sandra Lockwood Zane ZAVALA Pili IV Needle placement ([id number])By: On: 24-Feb-2014 Intent Zane ZAVALA PiliMandie Degroot CNP Pili Comments: 22G insyte initiated in R medial wrist, no s/s infiltration, redness, swelling, dsg dry intact, infusing on gravity pole at 48gtts/min- catheter removed intact, tolerated well- CTyler MERCHANDISER SEASONAL Rocephin Injection, 2 Gram On: 24-Feb-2014 Intent ([id number])By: Sandra Degroot CNP Comments: lot # [id number]- 09/06/16site-R medial wrist route-IVdose- 2GCTyler Sandra LEE CNP ELECTROCARDIOGRAM, COMPLETE (ECG) On: 22-Dec-2013 Intent ([id number])By: Sandra Degroot CNP, CNP, Mary E FLU VAC, SPLIT, >3 YEARS, INTRAMUSC On: 30-Dec-2012 Intent ([id number])By: Leslie Roberts LPN Comments: Lot:[id number]:Dose:0.5mLRoute:IMSite:L DltdGiven By:DELILAH signed IMMUNIZ ADMNIN, 1 VAC, SNGL/COMBO On: 30-Dec-2012 Intent (31449)By: Leslie Roberts LPN Planned Medications INJECTION, CEFTRIAXONE [...] benign : DISCONTINUED - METABOLIC PANEL, COMPREHENSIVE (51543) Indication: Hypertension, benign Hypertension, benign : DISCONTINUED - CBC with auto diff (41576) Indication: Hypertension, benign Hyperglycemia : How to [...] Advance Directives Name Dates Details Immunization Registry [place] - Effective on Effective: 01-Jan-201801/01/2018. Expiration date [...] patient does not have durable power of barrel drainer or 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 Other providers contributing to the patient's car e are digital media manager ([place]) and other: (Dr keke Owen, Archeology Faculty Member. Dr. Ahumada neurology. )., [ADDITIONAL REASON] Follow [...]
--- OUTSIDE RECORDS SUMMARY | 2018-07-02 03:41 | XMS RPT_ITS | Continuity of Care Document ---
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 [address] OFFICE VISIT Date of Service: 01/23/18 1611 MR#: [id number] Acct: [id number] Name: TISH MALAVE ep #: [id number] : 1950 From: Guido Hogue MD Age/Sex: [...] Code Visi t Office Visits / Consults: [id number] OV L4 Est 01/23/18 1620 <Electronically signed by Guido Hogue MD> Date Guido Hogue MD Cosigner Sig nature: Date (if applicable) CC: 17-Dec-2017 Knee 4 or More Views Result: Comments: See Note; NOTES: [facility] Imaging Services [address] [place] [address] Knee 4 or More Views MR#: [id number] Acct: [id number] Name: TISH MALAVE Rep #: [id number] : 1950 F 67 From: Fer Amos MD PCP: Sandra Degroot NP Status: REG CLI Study: Knee 4 or More Views Date of Exam: 12/17/17 Exam# [id number] Ordering Dr: Lynda Suazo STUDY: X-RAY - [...] , CC: Sandra Degroot NP; VALENTE Suazo Veneer Gluer: Signed 18-Nov-2017 SCREENING MAMM (CAD), BILAT Result: Comments: See Note; NOTES: [facility] Imaging Services [address] [address] SCREENING MAMM (CAD), BILAT MR#: [id number] Acct: [id number] Name: TISH MALAVE Rep #: [id number] : 1950 F 67 From: Xu Adams MD PCP: Sandra Degroot NP Status: PRE CLI Study: SCREENING MAMM (CAD), BILAT Date of Exam: 11/18/17 Exam# [id number] Ordering Dr: Guido Hogue MD MAMM OGRAPHY [...] delay biopsy of a clinically suspicious abnormality. [id number] Electronically Signed: Xu Adams MD at 15:22 EDT Tel [phone], Service support , Fa x [phone] CC: Sandra Degroot NP; Guido Hogue MD Veneer Gluer: Signed 05-Oct-2017 PET/CT Tumor Base -Thigh Init Result: Comments: See Note; NOTES: [facility] Imaging Services [address] [place] [address] PET/CT Tumor Base -Thigh Init MR#: [id number] Acct: [id number] Name: TISH MALAVE Rep #: [id number] : 1950 F 66 From: Hossein Oneill DO PCP: Sandra Degroot NP Status: REG CLI Study: PET/CT Tumor Base -Thigh Init Date of Exam: 10/07/17 Exam# [id number] Ordering Dr: Sandra DegrootINA ON: FDG PET/CT [...] the axial skeletal structures. ORDER # : [id number] PET/PET/CT Tumor Base -Thigh Init IMPRESSION: 1. [...] Service support , CC: Sandra Degroot NP Veneer Gluer: Signed 23-Sep-2017 Chest WITH Contrast Result: Comments: See Note; NOTES: [facility] Imaging Services [address] [place] [address] Chest WITH Contrast MR#: [id number] Acct: [id number] Name: TISH MALAVE Rep #: [id number] OB: 1950 F 66 From: Vasu Wright MD PCP: Sandra Degroot NP Status: REG CLI Study: Chest WITH Contrast Date of Exam: 09/23/17 Exam# [id number] Ordering Dr: Sadnra Degroot STUDY: CT CHEST WITH CONTRAST REASON [...] verbal consultatio n. CC: Sandra Degroot NP Veneer Gluer: Signed 17-Jul-2017 Oncology Visit Report Result: Comments: See Note; NOTES: [facility] [place] [address] OFFICE VISIT Date of Service: 07/17/17 1446 MR#: [id number] Acct: [id number] Name: TISH MALAVE #: [id number] : 1950 From: Guido Hogue MD Age/Sex: [...] Chronic Code Visit Office Visits / Consults: 20093 OV L4 Est 07/17/17 1511 <Electronically signed by Guido Hurtado D> Date Guido Hogue MD Cosigner Signature: Date (if applicable) CC: 16-Nov-2016 Breast Limited Unilateral Result: Comments: See Note; NOTES: [facility] Imaging Services [address] [place] [address] Breast Limited Unilateral MR#: [id number] Acct: [id number] Name: TISH MALAVE Rep #: [id number] : 1950 F 66 From: Xu Adams MD PCP: Sandra Degroot Status: REG CLI Study: Breast Limited Unilateral Date of Exam: 11/16/16 Exam# [id number] Ordering Dr: Maeve Tarango STUDY: ULTR ASOUND [...] Xu Adams MD at 15:16 EDT Tel [phone], Service support , CC: Sandra Degroot; Maeve Tarango Veneer Gluer: Signed 16-Nov-2016 DIAG MAMM W/CAD, UNILAT Result: Comments: See Note; NOTES: [facility] Imaging Services [address] [place] [address] DIAG MAMM W/CAD, UNILAT MR#: [id number] Acct: [id number] Name: TISH MALAVE Rep #: [id number] : 1950 F 66 From: Xu Adams MD PCP: Sandra Degroot Status: REG CLI Study: DIAG MAMM W/CAD, UNILAT Date of Exam: 11/16/16 Exam# [id number] Ordering Dr: Maeve Tarango MAMMOGRAPHY - U [...] Xu Adams MD at 15:24 EDT Tel [phone], Service supp ort , CC: Sandra Degroot; Maeve Tarango Veneer Gluer: Signed 09-Aug-2016 Chest WITH Contrast Result: Comments: See Note; NOTES: [facility] Imaging Services [address] [place] [address] Verdana 4d Chest WITH Contrast MR#: [id number] Acct: [id number] Name: TISH MALAVE Rep #: [id number] : 1950 F 65 From: Mario Horton MD PCP: Sandra Degroot Status: REG CLI Study: Chest WITH Contrast Date of Exam: 08/09/16 Exam# [id number] Ordering Dr: Jean Carlos Clarke MD STUDY: [...] CC: Sandra sims; Jean Carlos Clarke MD Veneer Gluer: Signed 09-Jul-2016 Chest PA and Lateral Result: Comments: See Note; NOTES: [facility] Imaging Services [address] [place] [address] Verdana 4d Chest PA and Lateral MR#: [id number] Acct: [id number] Name: TISH MALAVE Rep #: [id number] : 1950 F 65 From: Xu Adams MD PCP: Sandra Degroot Status: REG CLI Study: Chest PA and Lateral Date of Exam: 07/09/16 Exam# [id number] Ordering Dr: Sandra Degroot STUDY: X-RAY C [...] Xu Adams MD at 13:03 EDT Tel [phone], Service support [phone], CC: Sandra Degroot Veneer Gluer: Signed 07-Jun-2016 SCREENING MAMM (CAD), BILAT Result: Comments: See Note; NOTES: [facility] Imaging Services [address] [place] [address] Verda 4d SCREENING MAMM (CAD), BILAT MR#: [id number] Acct: [id number] Name: TISH MALAVE Rep #: [id number] : 1950 F 65 From: Xu Adasm MD PCP: Sandra Degroot Status: REG CLI Study: SCREENING MAMM (CAD), BILAT Date of Exam: 06/07/16 Exam# [id number] Ordering Dr: Rona Tarango MAMMOGRAPHY - BILATERAL [...] delay biopsy of a clinically suspicious abnormality. [id number] Electronically Signed: Xu Adams MD at 8:17 EST Tel [phone], Service support [phone], CC: Sandra Degroot; Maeve Emelina Veneer Gluer: Signed 30-Apr-2016 Chest without Contrast Result: Comments: See Note; NOTES: [facility] Imaging Services [address] [place] [address] Kattydana 4d Chest without Contrast MR#: [id number] Acct: [id number] Name: TISH MALAVE Rep #: [id number] : 1950 F 65 From: Lex Mosley MD PCP: Sandra Degroot Status: REG CLI Study: Chest without Contrast Date of Exam: 04/30/16 Exam# [id number] Ordering Dr: Jean Carlos Clarke MD [facility] DY: CT CHEST WITHOUT CONTRAST REASON [...] CC: Sandra Degroot; Jean Carlos Clarke MD Veneer Gluer: Signed 12-Oct-2015 Dexa Bone Density Study (HP) Result: Comments: See Note; NOTES: [facility] Imaging Services [address] [place] [address] Verdana 4d Dexa Bone Density Study () MR#: [id number] Acct: [id number] Name : TISH MALAVE Rep #: [id number] : 1950 F 64 From: Xu Adams MD PCP: Sandra Degroot Status: REG CL Study: Dexa Bone Density Study (HP) Date of Exam: 10/12/15 Exam# [id number] Ordering Dr: Trae Owen MD STUDY: DUAL [...] Xu Adams MD at 13:05 EDT Tel [phone], Service support [phone], CC: Sandra Degroot; Trae Owen Veneer Gluer: Signed 26-May-2015 Bilat Diag Digital AND CAD Result: Comments: See Note; NOTES: [facility] Imaging Services [address] [place] [address] Verdana 4d Bilat Diag Digital AND CAD MR#: [id number] Acct: [id number] Name: TISH MALAVE Rep #: [id number] : 1950 F 64 From: Xu Adams MD PCP: Sandra Degroot Status: REG CLI Study: Bilat Diag Digital AND CAD Date of Exam: 05/26/15 Exam# [id number] Ordering Dr: Deandra Ellison MD MAMMOGRAPHY - [...] Xu Adams MD at 9:06 EST Tel [phone], Service support [phone], CC: Sandra Degroot; Deandra Ellison MD Veneer Gluer: Signed 17-May-2015 Abdomen Complete Result: Comments: See Note; NOTES: [facility] Imaging Services [address] [place] [address] Verdana 4d Abdomen Complete MR#: [id number] Acct: [id number] Name: TISH MALAVE Rep #: [id number] : 1950 F 64 From: Jaclyn Rojas MD PCP: Sandra Degroot Status: REG CLI Study: Abdomen Complete Date of Exam: 05/17/15 Exam# [id number] Ordering Dr: Sandra Degroot STUDY: A BDOMINAL [...] at 14:26 EST Tel , Service support [phone], CC: Sandra Degroot Veneer Gluer: Signed 14-Oct-2014 History and Physical Exam Result: Comments: See Note; NOTES: [facility] Medical Records Department [address] [place] [address] History and Physical 10/14/14 1021 MR#: [id number] Acct: [id number] Name: TISH MALAVE Rep #: [id number] : 1950 64 From: Denadra Ellison MD PCP: Sandra Degroot Status: REG CLI Y Location: [facility] History and Physical - Blank Date [...] Hx of NEOPLASM, MALIGNANT, BREAST, CENTRAL (ICD-174.1) (QMF44-N12.119) See below. Problem # 2: Other (abnormal) findings on radiological examination of breast (ICD-793.89) ( QKH53-M73.8) I have discussed above with the patient [...] Operative Report Result: Comments: See Note; NOTES: [facility] Medical Records Department [address] [place] [address] Operative Report 10/12/14 1154 MR#: [id number] Acct: [id number] Name: TISH MALAVE Rep #: [id number] : 1950 63 From: Deandra Ellison MD PCP: Sandra Degroot Status: REG CLI Y Location: [facility] Report of Operation Date of Procedure: [...] 1st Lesion Result: Comments: See Note; NOTES: [facility] Imaging Services [address] [place] [address] Ultrasound Report MR#: [id number] Acct: [id number] Name: TISH MALAVE Rep #: [id number] : 1950 F 63 From: Xu Adams MD PCP: Sandra Degroot Status: [facility] CL Study: US Breast Biopsy 1st Lesion Date of Exam: 10/12/14 Exam# [id number] Ordering Dr: Deandra Ellison MD STUDY : [...] Xu Adams MD at 10:43 EDT Tel [phone], Service support [phone], CC: Sandra Degroot; Deandra Ellison MD Veneer Gluer: Signed 01-Oct-2014 Breast Limited Unilateral Result: Comments: See Note; NOTES: [facility] Imaging Services [address] [place] [address] Ultrasound Report MR#: [id number] Acct: [id number] Name: TISH MALAVE Rep #: [id number] : 1950 F 63 From: Xu Aadms MD PCP: Sandra Degroot Status: REG CLI Study: Breast Limited Unilateral Date of Exam: 10/01/14 Exam# [id number] Ordering Dr: Trae Owen MD STUDY : [...] Xu Adams MD at 14:52 EDT Tel [phone], Service support [phone], CC: Sandra Degroot; Trae Owen Veneer Gluer: Signed 01-Oct-2014 Unilat Lt Diag Digital AND CAD Result: Comments: See Note; NOTES: [facility] Imaging Services [address] [place] [address] Breast Imaging Report MR#: [id number] Acct: [id number] Name: TISH MALAVE Rep #: [id number] : 1950 F 63 From: Xu Adams MD PCP: Sandra Degroot Status: REG CLI Study: Unilat Lt Diag Digital AND CAD Date of Exam: 10/01/14 Exam# [id number] Ordering Dr: Trae Owen MD MAMMOGRAPHY - [...] Xu Adams MD at 14:29 EDT Tel [phone], Service support [phone], CC: Sandra Degroot; Trae Owen Veneer Gluer: Signed 07-Sep-2014 PT Discharge Summary Result: Comments: See Note; NOTES: [facility] Physical Therapy [address] [place] [address] Fax REHABILITATION SERVICES DISCHARGE SUMMARY MR#: [id number] Acct: [id number] Name: TISH MALAVE Rep #: [id number] : 1950 63 From: Ainsley Ingram Referring Dr.: Sandra Degroot Status: PRE RCR Eval Date: Discharge Da te: DATE OF SERVICE: Date of initial evaluation is July 20, 2014. The patient attended physical therapy for initial evaluation and has not returned since. PT feels it is appropriate she be dis charged from [facility]. Ainsley Ingram DPT T: CHAPIN JOB: [id number] <Electronically signed by Ainsley Ingram > 09/07/14 1459 CC: Signed 20-Jul-2014 Inital Evaluation - PT Result: Comments: See Note; NOTES: [facility] Physical Therapy [address] [place] [address] Fax REHABILITATION SERVICES INITIAL EVALUATION MR#: [id number] Acct: [id number] Name: TISH MALAVE Rep #: [id number] : 1950 63 From: Ainsley Ingram Referring Dr.: Sandra Degroot Status: REG R Insurance: [facility] Pham Date: DATE OF [...] pain. Ainsley Ingram DPT T: CHAPIN JOB: [id number] <Electronically signed by Ainsley Ingram > 5 1632 CC: Signed For Medicare only, by signing this I certify the plan of care. Physicians Signature Date 14-Jul-2014 Knee 4 or More Views Result: Comments: See Note; NOTES: [facility] Imaging Services [address] [place] [address] Radiology Report MR#: [id number] Acct: [id number] Name: TISH MALAVE Rep #: [id number] : 1950 F 63 From: Nasir Rodriguez DO PCP: Sandra Degroot Status: REG CLI Study: Knee 4 or More Views Date of Exam: 07/14/14 Exam# [id number] Ordering Dr: Sandra Degroot STUDY: X-RAY - [...] Nasir Rodriguez DO at 15:14 EDT Tel [phone], Service support [phone], RAD/Knee 4 or More Views IMPRESSION: Degenerative arthrosis. Electronically Signed: Nasir Rodriguez DO at 15:14 EDT Tel [phone], Service support [phone], Fax CC: Sandra Degroot Veneer Gluer: Signed 24-May-2014 Bilat Diag Digital AND CAD Result: Comments: See Note; NOTES: [facility] Imaging Services [address] [place] [address] Breast Imaging Report MR#: [id number] Acct: [id number] Name: TISH MALAVE Rep #: [id number] : 1950 F 63 From: Xu Adams MD PCP: Sandra Degroot Status: REG CLI Study: Bilat Diag Digital AND CAD Date of Exam: 05/24/14 Exam# [id number] Ordering Dr: Trae Owen MD M AMMOGRAPHY [...] Xu Adams MD at 9:22 EST Tel [phone], Service suppo rt [phone], CC: Sandra Degroot; Trae Owen Veneer Gluer: Signed 04-Sep-2013 Breast Unilateral Result: Comments: See Note; NOTES: [facility] Imaging Services [address] [place] [address] Ultrasound Report MR#: [id number] Acct: [id number] Name: TISH MALAVE Rep #: [id number] : 1950 F 62 From: Xu Adams MD PCP: Sandra Degroot Status: REG CLI Study: Breast Unilateral Date of Exam: 09/04/13 Exam# [id number] Ordering Dr: Trae Owen MD STUDY: ULTRASO UND BREAST(S) - LEFT REASON FOR EXAM: Female, 62 years old. Palpable lump left breast. TECHNIQUE: Axial and longitudinal images of the LEFT breast were performed with a high resolution [facility] t [facility]. COMPARISON: Comparison is made with [...] Xu Adams MD at 14:14 EDT Tel [phone], Service support [phone], CC: Sandra Degroot; Trae Owen Veneer Gluer: Signed 04-Sep-2013 Bilat Diag Digital & CAD Result: Comments: See Note; NOTES: [facility] Imaging Services [address] [place] [address] Breast Imaging Report MR#: [id number] Acct: [id number] Name: TISH MALAVE Rep #: [id number] : 1950 F 62 From: Xu Adams MD PCP: Sandra Degroot Status: REG CLI Exam# [id number] Ordering Dr: Trae Owen MD MAMMOGRAPHY - [...] Xu Adams MD at 15:01 EDT Tel [phone], Service support [phone], CC: Sandra Zane; Trae Owen Veneer Gluer: Signed 04-Sep-2013 Yesika Hernandez Digital & CAD Result: Comments: See Note; NOTES: [facility] Imaging Services [address] [place] [address] Breast Imaging Report MR#: [id number] Acct: [id number] Name: TISH MALAVE Rep #: [id number] : 1950 F 62 From: Xu Adams MD PCP: Sandra Degroot Status: REG CLI Exam# [id number] Ordering Dr: Trae Owen MD ADDENDUM by Xu Adams MD on 09/07/13 at 1603 === ADDENDUM This is an addendum report. The report is dictated for clarity of the laterality. The pa tient is status post left lumpectomy and not the right lumpectomy. Electronically Signed: Xu Adams MD at 16:03 EDT Tel [phone], Service support [phone], Fax 09/07/13 1612 Date cc: Sandra Degroot; [...] Xu Adams MD at 15:01 EDT Tel [phone], Service s upport [phone], CC: Sandra Degroot; Trae Owen Veneer Gluer: Signed Family History Unknown Family Member Name Dates Details Daughter 1 Comments: fibromyalgia, stiff man syndrome, lupus Status: Active Daughter 2 Comments: ET, MCTD ( lupus, RA) Status: Active Father Comments: CHF, tremor, HTN, PA Status: Active Sister 1 Comments: Br Ca Status: Active Sister 2 Comments: lupus Status: Active Son 1 Comments: DM Status: Active Social History Name Dates Details Caffeine Use Status: Active 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 Status: Active No Drug Use Status: Active Non Drinker/No Alcohol Use Status: Active Tobacco Use: Current every day smoker. Status: Active Smoking Status Name Dates Details Current every day smoker Vital Signs Date Test Result Details 1-Mdx-231504:29 Temperature 96.7 f Comments: Method: Temporal Pulse [...] W/Diff, Automated Comments: Reason for Laboratory Test .[facility] [address] [place], [place], [id number] Absolute Lymph 1.42 {X10_3/ul} (Normal) Range: 0.83-4.51 [...] 4.2-5.4 WBC 10.3 K/mm3 (Normal) Range: 4.4-11.0 79-Ecp-794744:36 Comprehensive Metabolic Profil Comments: Reason for Laboratory Test .[facility] [address] [place], [place], [address] GAP 6 (Normal) Range: 5-15 CO2 27.0 [...] A.D.A. criteria.Please note revised GLUCOSE reference range fejkncygh40/02/2018. 02-Wyh-280244:45 URINE FABAIN CULTURE-IDENTIFICATN Comments: PATIENT NOT FASTINGPERFORMED BY: [facility] Lscqcr8583 [facility] [id number] Information: SRC:ALLA (44742) Antimicrobial MIHEAD (Normal) Comments: S = Susceptible; [...] Proteusmirabilis. (Abnormal) Urine Final report Culture,Comprehensive (Abnormal) 87-Eqc-366044:24 Urinalysis, Office (22048) UA - LEUKOCYTE ESTERASE Trace (Normal) UA - NITRITE Negative (Normal) URINE UROBILINGN DC TIMED Normal mg/dL (Normal) UA - PROTEIN Negative mg/dL (Normal) UA - PH 7 (Normal) UA - BLOOD Hemolyzed Trace (Normal) UA - SPECIFIC GRAVITY 1.015 (Normal) UA - KETONES Negative mg/dL (Normal) UA - BILIRUBIN Negative (Normal) UA - GLUCOSE Negative (Normal) 37-Avm-616339:23 HgA1C , Office (39774) HgA1C , Office 5.8 % (Normal) Range: 4.6 - 7.1 96-Cwy-305175:23 Blood Glucose , Office (77383) Blood Glucose , Office 117 (Normal) 11-Mbg-835098:47 CREATININE FINGERSTICK Comments: [facility] [address] [place] [address] EGFR WB > 60.0000 mL/min (Normal) CREATININE WB 0.9 mg/dL (Normal) Range: 0.55-1.02 :04 HgA1C , Office (40957) HgA1C , Office 5.7 % (Normal) Range: 4.6 - 7.1 :04 Blood Glucose , Office (61503) Blood Glucose , Office 108 (Normal) :50 CBC W/Diff, Automated Comments: Reason for Laboratory Test .[facility] [address] [place], [address] Absolute Lymph 1.83 {X10_3/ul} (Normal) [...] 4.2-5.4 WBC 6.5 K/mm3 (Normal) Range: 4.4-11.0 65-Jvi-040617:50 Comprehensive Metabolic Profil Comments: Reason for Laboratory Test .[facility] [address] [place], [address] GAP 7 (Normal) Range: 5-15 CO2 31.0 mmol/L (Normal) Range: 21.0-32.0 CL 97 mmol/L (Abnormal) Range: 98-107 K 4.0 mmol/L (Normal) Range: 3.5-5.1 NA 135 mmol/L (Abnormal) Range: 136-145 T BILI 0.60 mg/dL (Normal) Range: 0.20-1.00 ALT 20 U/L (Normal) Range: 13-56 Comments: Please note revised ALT reference range mqipfvbwu72/28/2018. ALK P 135 U/L (Abnormal) Range: 45-117 [...] Comments: Please note revised GLUCOSE reference range kikuqrvgg65/02/2018. :32 HgA1C , Office (28786) Comments: 5.7 HgA1C , Office 5.7 % (Normal) Range: 4.6 - 7.1 :32 Blood Glucose , Office (24898) Blood Glucose , Office 141 (Normal) Comments: fasting 19-Unw-918744:04 Microscopic Examination Comments: PATIENT WAS FASTINGPERFORMED BY: [employer] [facility] [id number] Bacteria None seen (Normal) Mucus Threads Present (Normal) Epithelial Cells (non renal) 0-10 {/hpf} (Normal) Range: 0 - 10 RBC None seen {/hpf} (Normal) Range: 0 - 2 WBC 11-30 {/hpf} (Abnormal) Range: 0 - 5 00-Bvp-159586:04 URINALYSIS (48914) Comments: Mar or Apr 2017; PATIENT WAS FASTINGPERFORMED BY: [employer] [facility] [id number] Microscopic Examination See below: (Normal) Comments: Microscopic was indicated and was performed. Nitrite, Urine Negative (Normal) Urobilinogen,Semi-Qn 0.2 mg/dL (Normal) Range: 0.2-1.0 Bilirubin Negative (Normal) Occult Blood Trace (Abnormal) Ketones Negative (Normal) Glucose Negative (Normal) Protein Negative (Normal) WBC Esterase 2+ (Abnormal) Appearance Clear (Normal) Urine-Color Yellow (Normal) pH 7.5 (Normal) Range: 5.0-7.5 Specific [place] 1.012 (Normal) Range: 1.005-1.030 98-Pfh-976513:04 MICROALBUMIN: CREATININE RATIO Comments: MarApr 2017; PATIENT WAS FASTINGPERFORMED BY: [employer] [facility] [id number] (76338) AND (08894) Alb/Creat Ratio 12.7 {mg/g_creat} (Normal) Range: 0.0-30.0 Albumin, Urine 6.3 ug/mL (Normal) Creatinine, Urine 49.6 mg/dL (Normal) 46-Ysh-787364:04 LIPID PANEL (48583) Comments: Fasting Mar or Apr 2017; PATIENT WAS FASTINGPERFORMED BY: [employer] [facility] [id number] LDL/HDL Ratio 2.3 {ratio_units} (Normal) Range: 0.0-3.2 Comments: LDL/HDL Ratio Men Women 1/2 Avg.Risk 1.0 1.5 Av g.Risk 3.6 3.2 2X Avg.Risk 6.2 5.0 3X Avg.Risk 8.0 6.1 LDL Cholesterol Calc 91 mg/dL (Normal) Range: 0-99 VLDL Cholesterol Bella 14 mg/dL (Normal) Range: 5-40 HDL Cholesterol 39 mg/dL (Abnormal) Triglycerides 69 mg/dL (Normal) Range: 0-149 Cholesterol, Total 144 mg/dL (Normal) Range: 100-199 40-Ier-474860:04 CALCIFEDIOL (84448) Comments: Mar or Apr 2017; PATIENT WAS FASTINGPERFORMED BY: [employer] VenturesSt. Joseph[facility] Medical CenterMuadrv7721 [place] [facility] [id number]; OV 2/6 Vitamin D, 25-Hydroxy 48.9 ng/mL (Normal) Range: 30.0-100.0 Comments: Vitamin D deficiency has been defined by the [employer] of[employer] and an Endocrine Society practice guideline as alevel of serum 25-OH vitamin D less than 20 ng/mL (1,2).The Endocrine Society went on to further define vitamin Dinsufficiency as a level between 21 and 29 ng/mL (2).1. IOM ([employer]). 2010. Dietary reference intakes for calcium and D. [place]: The National Academies Press.2. Carlitos MF, Rene LAUREANO, Garth CARROLL, et al. Evaluation, treatment, and prevention of vitamin D deficiency: an Endocrine Society clinical practice guideline. JCEM. 2010; 96(7):1911-30. 45-Jbz-672142:04 TSH (17881) Comments: Mar or Apr 2017; PATIENT WAS FASTINGPERFORMED BY: LabMesa Air GroupSt. Joseph's Regional Medical CenterSzflga5827 [facility] [id number] TSH 1.660 {uIU/mL} (Normal) Range: 0.450-4.500 49-Uuh-596044:04 Metabolic Panel, Comprehensive Comments: Mar or Apr 2017; PATIENT WAS FASTINGPERFORMED BY: LabCoSt. Joseph's Regional Medical CenterJjadsx0603 [facility] [id number] ([id number]) ALT (SGPT) 16 [iU]/L (Normal) Range: 0-32 [...] Glucose, Serum 100 mg/dL (Abnormal) Range: 65-99 87-Iaf-834906:04 CBC, Platelets & Auto Diff Comments: Mar or Apr 2017; PATIENT WAS FASTINGPERFORMED BY: [facility]6370 [facility] [id number] (87238) Immature Grans (Abs) 0.0 {x10E3/uL} (Normal) Range: [...] (Normal) Range: 3.4-10.8 :45 HgA1C , Office (13522) HgA1C , Office 5.8 % (Normal) Range: 4.6 - 7.1 :45 Blood Glucose , Office (24622) Blood Glucose , Office 110 (Normal) :33 CBC W/Diff, Auto - EPLAB Comments: Order Date: 05/10/16Order Info: [id number] - *CBC w/Diff - oncology ONLYAt [facility] Outpatient [facility] Medical Oncologypatients receive CBC w/auto Differential ONLY. Physicianwiozzie place an order fo Only r a manual differential or Pathologistreview at his discretion. [facility]. [address] [place] [address] [address] BOOM PUMP OPERATOR: STEVIE COTA DO PH:[phone] [facility] [address] [place], [place], [address] Absolute Lymph 2.40 {X10_3/uL} (Normal) Range: 0.83-4.51 [...] 4.2-5.4 WBC 8.9 K/mm3 (Normal) Range: 4.4-11.0 0-Bhc-391003:33 Comprehensive Metabolic Profil Comments: Order Date: 05/10/16Order Info: [id number] - *CMP Complete Metabolic PanelWOhioHealth [facility] Ttkymgumzt[address] [place], [place], [address] GAP 5 (Normal) Range: 5-15 CO2 33.0 [...] D,25 Hydroxy Comments: Order Date: 05/10/16Order Info: [id number] - *Vitamin D (Calciferol)[facility] Tmaqiwdujc[address] [place], [place], [address] Vitamin D 25-OH 37.0 ng/mL (Normal) Comments: Vitamin D 25(OH) Status Range Deficiency <20 ng/mL (50nmol/L) Insuffciency 20 - 30 ng/mL (50 - 75 nmol/L) Sufficiency 30 - 100 ng/mL (75 - 250 nmol/L) Toxicity >100 ng/mL (>250 nmol/L) 11-Sep-20168:37 Metabolic Panel, Comprehensive Comments: September 11; PATIENT WAS FASTINGPERFORMED BY: LabCoSt. Joseph's Regional Medical CenterSlslyi6554 [facility] [id number] (10278) ALT (SGPT) 17 [iU]/L (Normal) Range: 0-32 [...] (Abnormal) Range: 65-99 :57 HgA1C , Office (14534) HgA1C , Office 5.9 % (Normal) Range: 4.6 - 7.1 :57 Blood Glucose , Office (26654) Blood Glucose , Office 118 (Normal) :30 Serum Creatinine AND GFR Comments: [facility] [address] [place], [place], [address] EST GFR - AA 87 mL/min (Normal) Comments: GFR Calc EST GFR 72 mL/min (Normal) Comments: Non- GFR Calc CREAT,SERUM 0.84 mg/dL (Normal) Range: 0.55-1.02 Comments: The validity of the calculated GFR AND GFRAA in patients over70 years has not been determined. Clinical correlation isessential. :27 Culture, Blood (WB) Comments: [facility] [address] [place], [place], [address] CUB See Note (Normal) Comments: BCNo growth in 5 days. :27 Culture, Blood (WB) Comments: [facility] Hitzfzdcgo9719 [facility] [address]. [place], [place], [address] CUB See Note (Normal) Comments: BCNo growth in 5 days. 6-Qcj-490500:01 COMPLEMENT C4 (83478) Comments: PATIENT NOT FASTINGPERFORMED BY: Wayna Hbmofv3624 [facility] [id number] Complement C4, Serum 36 mg/dL (Normal) Range: 14-44 0-Feg-362702:01 COMPLEMENT C3 (07005) Comments: PATIENT NOT FASTINGPERFORMED BY: Wayna Mznkxs7440 [facility] [id number] Complement C3, Serum 185 mg/dL (Abnormal) Range: 82-167 4-Vzr-249254:01 COMPLEMENT, TOTAL (CH50) Comments: PATIENT NOT FASTINGPERFORMED BY: Connectivity Data SystemsUniversity Of Michigan Health6370 [facility] [id number] (55911) Complement, Total (CH50) 56 U/mL (Normal) Range: 42-60 9-Rou-712868:01 Sed Rate Erythrocyte (87815) Comments: PATIENT NOT FASTINGPERFORMED BY: [facility]6370 [facility] [id number] Sedimentation Rate-Westergren 50 mm/h (Abnormal) Range: 0-40 9-Fqe-715946:01 CBC, Platelets & Auto Diff Comments: PATIENT NOT FASTINGPERFORMED BY: LabCoSt. Joseph's Regional Medical CenterZcxmbq0572 [facility] [id number] Information: [id number], [id number] SRC: (83944) Immature Grans (Abs) 0.0 {x10E3/uL} (Normal) Range: [...] 3.77-5.28 WBC 13.6 {x10E3/uL} (Abnormal) Range: 3.4-10.8 1-Kgv-401463:49 Rapid Flu (26598 x 2) Comments: ? borderline Influenza A Ag neg a/b (Normal) : Influenza A&B Viral Culture Comments: PATIENT NOT FASTINGPERFORMED BY: Wayna [employer] [facility] [id number] (69830) Viral Culture,Rapid,Influenza FLUABN (Normal) Comments: Negative:No Influenza A or B detected. :53 Urinalysis, Office (64518) UA - LEUKOCYTE ESTERASE Small (Normal) UA [...] FABIAN CULTURE-IDENTIFICATN Comments: PATIENT NOT FASTINGPERFORMED BY: TribaLearning [facility] [id number] (96548) Antimicrobial MIHEAD (Normal) Comments: S = Susceptible; [...] Final report Culture,Comprehensive (Abnormal) :01 CULTURE, SPUTUM (14595) Comments: PATIENT NOT FASTINGPERFORMED BY: Wayna Inzovl0947 [facility] [id number] Result 1 HAEMIN (Abnormal) Comments: Haemophilus influenzaeModerate [...] Culture (Abnormal) :28 Blood Glucose , Office (48042) Blood Glucose , Office 109 (Normal) :48 HgA1C , Office (03973) HgA1C , Office 6.0 % (Normal) Range: 4.6 - 7.1 :48 Blood Glucose , Office (98668) Blood Glucose , Office 152 (Normal) 01-Ehl-852147:23 CBC W/Diff, Auto - EPLAB Comments: At [facility] Outpatient [facility] Medical Oncologypatients receive CBC w/auto Differential ONLY. Physicianwill place an order for a manual differential or Pathologistreview at his discretion. [facility]. [address] [place] [address] [place] [address] BOOM PUMP OPERATOR: STEVIE COTA DO PH:[phone] Health St. [facility] [address]wns[address] [place], [place], [phone] ; another doc Absolute Lymph 2.39 {X10_3/uL} [...] 4.2-5.4 WBC 7.6 K/mm3 (Normal) Range: 4.4-11.0 45-Vwu-231971:23 Comprehensive Metabolic Profil Comments: Order Date: 11/03/15Interface Comments: STATOrder Date: 11/03/15WOhioHealth [facility] [address]wfmynfo[address] [place], [place], [address] ; another doc GAP 8 (Normal) Range: [...] 7-18 GLU 101 mg/dL (Normal) Range: 70-110 47-Ojo-336147:23 Vitamin D 1,25-Dihydroxy Comments: Order Date: 11/03/15Order Date: 11/03/15Interface Comments: STATOrder Date: 11/03/15[facility] (refer to report for specific site)refer to report for address and phone number; another doc VITD 98995 27.8 pg/mL (Normal) Range: 19.9-79.3 Comments: Performed at: [address] [id number] Director: Sascha Cedeno MD, Phone: [phone] 19-Tih-245817:01 HgA1C , Office (27751) Comments: 5.8 HgA1C , Office 5.8 % (Normal) Range: 4.6 - 7.1 07-Feb-20169:43 Microscopic Examination Comments: PATIENT WAS FASTINGPERFORMED BY: Syscor6370 DrivenBI [facility] [id number] Bacteria Few (Normal) Mucus Threads Present (Normal) Epithelial Cells (non renal) None seen {/hpf} (Normal) Range: 0 - 10 RBC None seen {/hpf} (Normal) Range: 0 - 2 WBC 0-5 {/hpf} (Normal) Range: 0 - 5 :43 Lipid Panel (29177) Comments: PATIENT WAS FASTINGPERFORMED BY: Tytanium Ideas70 DrivenBI [facility] HospitalAudioMicroAtrium Health [facility] [id number] LDL/HDL Ratio 1.7 {ratio_units} (Normal) Range: 0.0-3.2 [...] 116 mg/dL (Normal) Range: 100-199 :43 CALCIFEDIOL (07401) Comments: PATIENT WAS FASTINGPERFORMED BY: [employer]70 [facility] [id number] Vitamin D, 25-Hydroxy 62.9 ng/mL (Normal) Range: 30.0-100.0 Comments: Vitamin D deficiency has been defined by the [place] ofMedicine and an Endocrine Society practice guideline as alevel of serum 25-OH vitamin D less than 20 ng/mL (1,2).The Endocrine Society went on to further define vitamin Dinsufficiency as a level between 21 and 29 ng/mL (2).1. IOM (Providence of Medicine). 2010. Dietary reference intakes for calcium and D. [place]: The National Academies Press.2. Carlitos MF, Rene LAUREANO, Garth CARROLL, et al. Evaluation, treatment, and prevention of vitamin D deficiency: an Endocrine Society clinical practice guideline. JCEM. 2010; 96(7):1911-30. :43 URINALYSIS, W/ MICRO (03672) Comments: PATIENT WAS FASTINGPERFORMED BY: [employer]6370 [facility] [id number] Microscopic Examination See below: (Normal) Comments: Microscopic was indicated and was performed. Microscopic Examination MICRON (Normal) Comments: Microscopic follows if indicated. Nitrite, Urine Negative (Normal) Urobilinogen,Semi-Qn 1.0 mg/dL (Normal) Range: 0.2-1.0 Bilirubin Negative (Normal) Occult Blood Negative (Normal) Ketones Negative (Normal) Glucose Negative (Normal) Protein Negative (Normal) WBC Esterase Negative (Normal) Appearance Clear (Normal) Urine-Color Yellow (Normal) pH 6.5 (Normal) Range: 5.0-7.5 Specific [place] 1.007 (Normal) Range: 1.005-1.030 :43 MICROALBUMIN: CREATININE RATIO Comments: PATIENT WAS FASTINGPERFORMED BY: [employer]70 [facility] [id number] (32933) AND (42190) Microalb/Creat Ratio <11.2 {mg/g_creat} (Normal) Range: 0.0-30.0 Microalbumin, Urine <3.0 ug/mL (Normal) Creatinine, Urine 26.8 mg/dL (Normal) :43 TSH (THYROID STIMULATING Comments: PATIENT WAS FASTINGPERFORMED BY: Connectivity Data SystemsUniversity Of Michigan Health6370 [facility] [id number] HORMONE) (31416) TSH 0.992 {uIU/mL} (Normal) Range: 0.450-4.500 :43 Metabolic Panel, Comments: PATIENT WAS FASTINGPERFORMED BY: WaynaSt. Joseph's Regional Medical CenterKksmww9254 [facility] [id number] Information: HARD DRAW Comprehensive (72432) ALT (SGPT) 21 [iU]/L (Normal) Range: 0-32 [...] (Normal) Range: 65-99 :09 HgA1C , Office (70473) Comments: 6.2 HgA1C , Office 6.2 % (Normal) Range: 4.6 - 7.1 :09 Blood Glucose , Office (84317) Blood Glucose , Office 123 (Normal) :36 CBC W/Diff, Auto - EPLAB Comments: At [facility] Outpatient [facility] Medical Oncologypatients receive CBC w/auto Differential ONLY. Physicianwill place an order for a manual differential or Pathologistreview at his discretion. [facility]. [address] [place] [address] [place] [address] BOOM PUMP OPERATOR: STEVIE COTA DO PH:[phone] Health St[facility] [address]azxwbz[address] [place], [place], [id number] Absolute Lymph 2.15 {X10_3/uL} (Normal) Range: 0.83-4.51 [...] Profil Comments: Order Date: 11/03/15OV Order #: [id number] Specimen #1, #2 or #3? 1 [id number] [facility] Sp[address]rcwcee[address] [place], [place], [address] GAP 6 (Normal) Range: 5-15 CO2 31.0 [...] (Normal) Comments: Order Date: 11/03/15OV Order #: [id number] Specimen #1, #2 or #3? [id number] [facility] [address] [place], [address] Range: 84-246 8-Dag-562877:32 Uric Acid Comments: Order Date: 11/03/15OV Order #: [id number] Specimen #1, #2 or #3? [id number] [facility] [address] F[address]ec[address] [place], [address] URIC 5.4 mg/dL (Normal) Range: 2.6-6.0 Comments: The drugs N-Acetylcysteine and Metamizole may falsely deressthis assay. 6-Gud-574088:00 Vancomycin, Trough Level Comments: Comments: FAX REPORT TO SANDRA PENDLETONJamaal BECK [phone] AND [facility] [address] [place], [address] VANCO, TROUGH 14.7 ug/mL (Normal) Range: 5.0-15.0 Comments: VANCOMYCIN STANDARED DRUG THERAPY TROUGH LEVEL: 5.0 - 15.0 mg/LVANCOMYCIN HIGH INTENSITY THERAPY TROUGH LEVEL: 15.0 - 20 .0 mg/LHigh Intensity therapy recommended for serious lifethreatening infections include:- Rsnptxotmn-Gzimwtczfknm-Tnldwdjcs (Ventilator/Healtcare Associated)- SepsisPLEASE CONTACT PHARMACY SERVICES (#5791) FOR INTERPRETATIONOF RESULTS. 61-Jkh-157220:21 M R Staph Aureus DNA by PCR Comments: Source: NASAL SWABMercy Health St. [facility] [address]kqno[address] [place], [place], [address] MRSA RESULT POSITIVE (Abnormal) 25-Jrz-420887:22 Aerobic Bacterial Culture Comments: send for MRSA left flank; PATIENT NOT FASTINGPERFORMED BY: LabCo Qrzcji7604 [place] [place] [id number] Information: SRC:MADDIE [id number] (77094) Result 1 MRSA (Abnormal) Comments: Methicillin - [...] report (Abnormal) Culture :03 HgA1C , Office (50661) Comments: 6.0 HgA1C , Office 6.0 % (Normal) Range: 4.6 - 7.1 :03 Blood Glucose , Office (92027) Blood Glucose , Office 120 (Normal) :01 POTASSIUM SERUM (65859) Comments: STAT; [facility] Srswfuxpbf4[address] [place], [place], [address] K 4.8 mmol/L (Normal) Range: 3.5-5.1 :40 Metabolic Panel, Comments: PATIENT WAS FASTINGPERFORMED BY: LabCoSt. Joseph's Regional Medical CenterZxazyy0498 [facility] [id number] Information: [id number] Comprehensive (08577) ALT (SGPT) 21 [iU]/L (Normal) Range: 0-32 [...] (Abnormal) Range: 65-99 :40 HEPATIC FUNCTION PANEL (93795) Comments: PATIENT WAS FASTINGPERFORMED BY: Tytanium Ideas70 [facility] [id number] Bilirubin, Direct 0.17 mg/dL (Normal) Range: 0.00-0.40 :40 Lipid Panel (78532) Comments: PATIENT WAS FASTINGPERFORMED BY: Syscor6370 [facility] [id number] LDL/HDL Ratio 1.6 {ratio_units} (Normal) Range: 0.0-3.2 [...] Cholesterol, Total 128 mg/dL (Normal) Range: 100-199 5-Hgn-961345:36 TSH (04480) Comments: PATIENT WAS FASTINGPERFORMED BY: [employer] Elzvff0231 [facility] [id number] TSH 1.320 {uIU/mL} (Normal) Range: 0.450-4.500 6-Bqe-472085:36 MICROALBUMIN: CREATININE RATIO Comments: PATIENT WAS FASTINGPERFORMED BY: TribaLearning [facility] [id number] (53994) AND (11402) Microalb/Creat Ratio <4.6 {mg/g_creat} (Normal) Range: 0.0-30.0 Microalbumin, Urine <3.0 ug/mL (Normal) Range: 0.0-17.0 Creatinine, Urine 64.9 mg/dL (Normal) Range: 15.0-278.0 :36 LIPID PANEL (64791) Comments: PATIENT WAS FASTINGPERFORMED BY: TribaLearning [facility] [id number] Information: [id number] LDL/HDL Ratio 2.9 {ratio_units} (Normal) Range: 0.0-3.2 [...] 200 mg/dL (Abnormal) Range: 100-199 :36 CALCIFEDIOL (96986) Comments: PATIENT WAS FASTINGPERFORMED BY: Wayna Kzrmmp3348 [facility] [id number] Vitamin D, 25-Hydroxy 35.2 ng/mL (Normal) Range: 30.0-100.0 Comments: Vitamin D deficiency has been defined by the [place] ofMedicine and an Endocrine Society practice guideline as alevel of serum 25-OH vitamin D less than 20 ng/mL (1,2).The Endocrine Society went on to further define vitamin Dinsufficiency as a level between 21 and 29 ng/mL (2).1. IOM (Providence of Medicine). 2010. Dietary reference intakes for calcium and D. [place]: The National Academies Press.2. Carlitos MF, Rene LAUREANO, Garth CARROLL, et al. Evaluation, treatment, and prevention of vitamin D deficiency: an Endocrine Society clinical practice guideline. JCEM. 2010; 96(7):1911-30. 53-Mxn-251267:16 CBC W/Diff, Auto - EPLAB Comments: At [facility] Outpatient [facility] Medical Oncologypatients receive CBC w/auto Differential ONLY. Physicianwill place an order for a manual differential or Pathologistreview at his discretion. [facility]. [address] [place] [address] [place] [address] BOOM PUMP OPERATOR: STEVIE COTA DO PH:[phone] Health St. [facility] [address]vqxctnnho[address] [place], [place], [address] Absolute Lymph 2.05 {X10_3/uL} (Normal) Range: 0.83-4.51 [...] 4.2-5.4 WBC 6.4 K/mm3 (Normal) Range: 4.4-11.0 53-Zlc-817498:14 Comprehensive Metabolic Profil Comments: Serial Specimen #1, #2 or #3? [address] [place] [address] Hgurts[address]aj[address] [place], [place], [address] GAP 8 (Normal) Range: 5-15 CO2 30.0 [...] 7-18 GLU 94 mg/dL (Normal) Range: 70-110 76-Bry-975299:14 LDH 176 U/L (Normal) Comments: Serial Specimen #1, #2 or #3? [address] [place] [address] Glogazufyl6448 [address] [place], [place], [address] Range: 84-246 80-Vyy-539207:14 Uric Acid Comments: Serial Specimen #1, #2 or #3? 1[facility] Iouymvozdz[address] [place], [address] URIC 6.1 mg/dL (Abnormal) Range: 2.6-6.0 70-Ksh-280365:14 Vitamin D 1,25-Dihydroxy Comments: [facility] (refer to report for specific site)refer to report for address and phone number; ordered by another doctor VITD 1,25 65200 69.0 pg/mL (Normal) Range: 19.9-79.3 Comments: Performed at: [facility] [address] [id number] Director: Sascha Cedeno MD, Phone: [phone] 69-Ktx-189506:20 HgA1C , Office (64915) HgA1C , Office 6.1 % (Normal) Range: 4.6 - 7.1 05-Rzv-674753:20 Blood Glucose , Office (27867) Blood Glucose , Office 89 (Normal) 16-Vps-157086:53 CALCIFEDIOL (11448) Comments: PATIENT WAS FASTINGPERFORMED BY: Wayna Pogmck1739 Axigen MessagingAtrium Health [facility] [id number] Vitamin D, 25-Hydroxy 23.0 ng/mL (Abnormal) Range: 30.0-100.0 Comments: Vitamin D deficiency has been defined by the Providence ofMedicine and an Endocrine Society practice guideline as alevel of serum 25-OH vitamin D less than 20 ng/mL (1,2).The Endocrine Society went on to further define vitamin Dinsufficiency as a level between 21 and 29 ng/mL (2).1. IOM (Providence of Medicine). 2010. Dietary reference intakes for calcium and D. [place]: The National Academies Press.2. Carlitos MF, Rene NC, Garth CARROLL, et al. Evaluation, treatment, and prevention of vitamin D deficiency: an Endocrine Society clinical practice guideline. JCEM. 2010; 96(7):1911-30. :53 Lipid Panel (23949) Comments: PATIENT WAS FASTINGPERFORMED BY: LabMesa [employer] Pogzua2713 Axigen MessagingAtrium Health [facility] [id number] Information: [id number] LDL/HDL Ratio 2.8 {ratio_units} Range: 0.0-3.2 (Normal) [...] (CHOOSE See Note (Normal) Comments: Test performed at:[facility] Awro[address]zsla[address] [place] [address] :00 SITE) Comments: Patient: TISH MALAVE : 1950 (64/F) Acct Num: [id number] Phys: Scot REAGAN,Deandra Unit Num: [id number] Loc: [facility] Specimen: [id number] Received: 10/12/14 1126 Spec Type: BREAST BX TISSUES TISSUES: COMMENT Please see previous specimen ([id number]) left breast tissue, stereotactic core biopsy with diagnosis of ductal carcinoma in situ. GROSS DESCRIPTION Received is one container labeled with the patient name and designated left breast. The specimen consists of multiple elongated fragments of martinez-yellow fibroadipose tissue measuring in aggregate 2.5 x 0.5 x 0.1 cm. The specimen is totally submitted in one cassette. / MARISSA:laura 10/12/14 TC:3 CPT: 41695 HEADER OPERATION: U/S guided left breast biopsy [...] Signed Shayan Ching 10/13/14 <signature on file> 9-Egq-113642:16 Comprehensive Metabolic Profil Comments: Serial Specimen #1, #2 or #3? 1Test performed at:[facility] Arlqritvri[address] [facility] [place] [address] GAP 6 (Normal) Range: 5-15 [...] 7-18 GLU 97 mg/dL (Normal) Range: 70-110 6-Ycl-481482:16 LDH 189 U/L (Normal) Comments: Serial Specimen #1, #2 or #3? 1Test performed at:[facility] Lzszglsegt47[address] [facility] [place] [address] Range: 87-241 6-Uul-491946:16 Uric Acid Comments: Serial Specimen #1, #2 or #3? 1Test performed at:[facility] Xdaoyuaoug5[address] [place] [address] URIC 5.5 mg/dL (Normal) Range: 2.6-6.0 2-Yne-743183:05 CBC W/Diff, Auto - EPLAB Only Comments: At [facility] Outpatient [facility] Medical Oncologypatients receive CBC w/auto Differential ONLY. Physicianwill place an order for a manual differential or Pathologistreview at his discretion. [facility]. [address] [place] [address] [place] [address] BOOM PUMP OPERATOR: STEVIE COTA DO PH:[phone] performed at:[facility] Laborato [address] [place], [place] [address] Absolute Neut 2.7 {X10_3/uL} (Normal) Range: 2.0-7.7 [...] 4.4-11.0 :00 Culture, Wound Comments: Test performed at:[facility] Pqaxcbysdx[address] [place] [address] CUW See Note (Normal) Comments: Comments: RIGHT [...] 1 S(NF) in dicates non-formulary drug at [facility]. Approval by Infectious Disease Specialist required before non-formulary drugs may be ordered and/or dispensed. * CLSI guidelines does not recommend testing of cephalosporins. This interpretation is deduced from Beta-lactam/penicillin results. 82-Nht-321018:16 Anaerobic & Aerobic Comments: R leg; PATIENT NOT FASTINGPERFORMED BY: LabUniversity Of Michigan Health6370 [facility] [id number] Information: SRC:WND [id number] RIGHT LEG Culture (82143) Result 1 MRSA (Abnormal) Comments: Methicillin - [...] mmol/L (Normal) Range: 3.5-5.1 :12 :13 CALCIFEDIOL (21898) Comments: PATIENT NOT FASTINGPERFORMED BY: LabCoSt. Joseph's Regional Medical CenterUzdnhd5222 [facility] [id number] Information: [id number] Vitamin D, 25-Hydroxy 23.8 ng/mL (Abnormal) Range: 30.0-100.0 Comments: Vitamin D deficiency has been defined by the Providence ofMedicine and an Endocrine Society practice guideline as alevel of serum 25-OH vitamin D less than 20 ng/mL (1,2).The Endocrine Society went on to further define vitamin Dinsufficiency as a level between 21 and 29 ng/mL (2).1. IOM (Providence of Medicine). 2010. Dietary reference intakes for calcium and D. [place]: The National Academies Press.2. Carlitos MF, Rene NC, Garth CARROLL, et al. Evaluation, treatment, and prevention of vitamin D deficiency: an Endocrine Society clinical practice guideline. JCEM. 2010; 96(7):1911-30. 32-Quf-381954:04 CBC, Platelets & Auto Comments: pls send copy to Dr epperson; Test(s) Potassium, Serum called to Dr Felix on 12/21/2013 at 23:26 ESTPATIENT NOT FASTINGPERFORMED BY: LabCoSt. Joseph's Regional Medical CenterOnfacf2872 [facility] [id number] Information: [id number] Diff (66432) Immature Grans (Abs) 0.0 {x10E3/uL} (Normal) Range: [...] 3.77-5.28 WBC 5.2 {x10E3/uL} (Normal) Range: 3.4-10.8 09-Mic-578764:04 Metabolic Panel, Comprehensive Comments: pls send copy to dr epperson; Test(s) Potassium, Serum called to Dr Felix on 12/21/2013 at 23:26 ESTPATIENT NOT FASTINGPERFORMED BY: LabCoSt. Joseph's Regional Medical CenterGwzjyh8006 [facility] [id number] (49752) ALT (SGPT) 15 [iU]/L (Normal) Range: 0-32 [...] Glucose, Serum 79 mg/dL (Normal) Range: 65-99 95-Gkv-578832:04 HEPATIC FUNCTION PANEL Comments: pls send copy to Dr Epperson; Test(s) Potassium, Serum called to Dr Felix on 12/21/2013 at 23:26 ESTPATIENT NOT FASTINGPERFORMED BY: LabCoSt. Joseph's Regional Medical CenterHzktdk0693 [facility] [id number] (85614) Bilirubin, Direct 0.09 mg/dL (Normal) Range: 0.00-0.40 80-Kel-13472:55 CMP Comments: Serial Specimen #1, #2 or [...] (Normal) Range: 70-110 :55 ECBCD Comments: At [facility] Outpatient [facility], Dr Lang patients receiveCBC w/auto Differential ONLY. He will place an order for amanual differential or Pathologist review at his discretion.[facility].[address] [place], [place] [address]QNJ DIRECTOR: STEVIE COTA DO PH:[phone] ANC 5.3 {X10_3/uL} (Normal) Range: 2.0-7.7 B% [...] Comments: pls also fax to Dr epperson- [phone]; PATIENT NOT FASTINGPERFORMED BY: JJ [facility] [id number] Girish ChildsAt[facility] Health [facility] [id number] Information: [id number] CC:[id number] ([id number]) Immature Grans (Abs) 0.0 {x10E3/uL} (Normal) Range: [...] pls also fax results to Dr epperson- [phone]; PATIENT NOT FASTINGPERFORMED BY: Wayna Elwhbr7803 [facility] [id number] ([id number]) ALT (SGPT) 17 [iU]/L (Normal) Range: 0-32 [...] (THYROID STIMULATING Comments: PATIENT NOT FASTINGPERFORMED BY: WaynaSt. Joseph's Regional Medical CenterTalcvl9381 [facility] [id number] HORMONE) ([id number]) TSH 1.350 {uIU/mL} (Normal) Range: 0.450-4.500 :46 CALCIFEDIOL (48780) Comments: PATIENT NOT FASTINGPERFORMED BY: [employer] Zexffy8878 [facility] [id number] Vitamin D, 25-Hydroxy 30.9 ng/mL (Normal) Range: 30.0-100.0 Comments: Vitamin D deficiency has been defined by the [place] of[employer] and an Endocrine Society practice guideline as alevel of serum 25-OH vitamin D less than 20 ng/mL (1,2).The Endocrine Society went on to further define vitamin Dinsufficiency as a level between 21 and 29 ng/mL (2).1. IOM ([employer]). 2010. Dietary reference intakes for calcium and D. [place]: The National Academies Press.2. Carlitos MF, Rene LAUREANO, Garth CARROLL, et al. Evaluation, treatment, and prevention of vitamin D deficiency: an Endocrine Society clinical practice guideline. JCEM. 2010; 96(7):1911-30. 59-Qxd-294126:28 HgA1C , Office (96440) HgA1C , Office 5.3 % (Normal) Range: 4.6 - 7.1 22-Cip-389254:36 Renal function Panel Comments: PATIENT NOT FASTINGPERFORMED BY: Wayna Jdxovd5115 [facility] [id number] Information: ADD [id number] AND DRAW FEE 99 [id number] (88693) Albumin, Serum 4.2 g/dL (Normal) Range: 3.6-4.8 [...] Glucose, Serum 114 mg/dL (Abnormal) Range: 65-99 05-Daf-663244:36 CALCIFEDIOL (59157) Comments: PATIENT NOT FASTINGPERFORMED BY: WaynaSt. Joseph's Regional Medical CenterMihppt4694 [facility] [id number] Vitamin D, 25-Hydroxy 29.9 ng/mL (Abnormal) Range: 30.0-100.0 Comments: Vitamin D deficiency has been defined by the [place] [employer] and an Endocrine Society practice guideline as alevel of serum 25-OH vitamin D less than 20 ng/mL (1,2).The Endocrine Society went on to further define vitamin Dinsufficiency as a level between 21 and 29 ng/mL (2).1. IOM ([employer]). 2010. Dietary reference intakes for calcium and D. [place]: The National Academies Press.2. Carlitos MF, Rene LAUREANO, Garth CARROLL, et al. Evaluation, treatment, and prevention of vitamin D deficiency: an Endocrine Society clinical practice guideline. JCEM. 2010; 96(7):1911-30. 10-Qpg-893815:36 HEPATIC FUNCTION PANEL Comments: PATIENT NOT FASTINGPERFORMED BY: Connectivity Data SystemsCoSt. 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 Indication: Smoking addiction Hypertension, benign : Reviewed [...] an appt for this saturday am with [facility] Indication: COPD (chronic obstructive pulmonary disease) Knee pain, right : Follow up in 1 month with [facility] for Gen Med Indication: Knee pain, right Knee pain, right : Follow up if no improvement or if symptoms worsen Indication: Knee pain, right Knee pain, right : Reviewed Stock Turner Letter Indication: Knee pain, right Knee pain, [...] (antinuclear antibody) Planned Observations MICROALBUMIN: CREATININE RATIO (18403) AND (63265)Indication: SOB (shortness of breath) On: 06-Sep-20179:47 Request TSH ([id number])Indication: SOB (shortness of breath) On: 06-Sep-20179:47 Request FABIAN CULTURE-BLOOD ([id number])Indication: Elevated WBC count On: 1-Axt-289879:29 Request FABIAN CULTURE-BLOOD (57400)Indication: Elevated WBC count On: 4-Cud-193337:29 Request MRSA Culture ([id number])Indication: Cellulitis of trunk, unspecified site of trunk On: 10-Kam-773297:04 Request Comments: nose HgA1C , Office (04238)Indication: Prediabetes On: 4-Pvr-904387:02 Request MRSA Culture ([id number])Indication: Cellulitis On: 26-Ztt-94705:40 Request FABIAN CULTURE-OTHER (03523)Indication: Cellulitis On: 98-Hwf-91203:39 Request POTASSIUM SERUM ([id number])Indication: Hyperkalemia On: 51-Vjc-22338:14 Request Comments: pls call results to [phone] Planned Encounters Medical; 2 Month FU - On: 14-Apr-2018 9:30 [facility] Sandra Degroot CNP, CNP Pili Planned Procedures Flu Vaccine (Quadrivalent) 64865Pn: On: 25-Dec-2017 Intent Sandra Degroot CNP, CNP Pili PHYSICAL THERAPY (81476)By: Gabriele, On: 17-Dec-2017 Intent Lynda [facility]iology - Knee - RightBy: Gabriele On: 17-Dec-[address] THORAX W CONTRAST (19640)By: On: 11-Oct-2017 Intent Sandra Degroot CNP, CNP Pili Comments: new rt lower 4.5mm lung nodule ordered by Dr. Brittney shrestah in October of 2016 CT chest without contrast PET-CT ENTIRE BODY (48571)By: Zane On: 24-Sep-2017 Intent Sandra ZAVALA CNP Pili CONTINUOUS OVERNIGHT PULSE OXIMETRY On: 06-Sep-2017 Intent ([id number])By: Sandra Degroot CNP, CNP Pili CT - Chest (IV Contrast Needed)By: On: 06-Sep-2017 Intent Sandra Degroot CNP, CNP Pili CONTINUOUS OVERNIGHT PULSE OXIMETRY On: 06-Sep-2017 Intent (59024)By: Sandra Degroot CNP, CNP, Mary E Spirometry (06857)By: Zane ZAVALA, On: 06-Sep-2017 Intent Sandra Muhammad CNP Six Minute Walk Assessment On: 06-Sep-2017 Intent (93082)By: Sandra Degroot CNP, CNP Pili Flu Vaccine (Quadrivalent) 64321Dw: On: 01-Jan-2017 Intent Nai Trevizo LPN Comments: InfluenzaLot #[id number]-09/23/18Site-R dltd, IMDose prefilled syringeVIS and ABN signedgiven by:ROSA gallardo Spirometry ([id number])By: Zane ZAVALA, On: 04-Sep-2016 Intent Sandra Degroot MOLD INSPECTOR, Sandra Lockwood Comments: severe airway obstruction with low vital capacity Aerosol Treatment (33229)By: Zane On: 04-Sep-2016 Intent Sandra ZAVALA Zane ZAVALA Sandra Lockwood Aerosol Treatment ([id number])By: Zane On: 11-Jul-2016 Intent SALLY Sandra Lockwood Zane ZAVALA Pili Radiology - ChestBy: Zane ZAVALASandra On: 09-Jul-2016 Intent Mandie Zane ZAVALASandra Aerosol Treatment (30274)By: Zane On: 09-Jul-2016 Intent Sandra ZAVALA Zane ZAVALA Sandra Lockwood Flu Vaccine (Quadrivalent) 22814Bi: On: 07-Feb-2016 Intent Zane ZAVALA Sandra Lockwood Zane ZAVALA Pili Comments: Lot:[id number]:10/05/16Dose:0.5mLRoute:IMSite:r DltdGiven By:Emely signed Rocephin Injection, 2 Gram On: 06-Sep-2015 Intent ([id number])By: Zane ZAVALA PiliMandie Degroot CNP Pili Ultrasound - Abdomen CompleteBy: On: 13-May-2015 Intent Zane ZAVALA PiliMandie Degroot CNP Pili Venous Doppler - RightBy: Zane ZAVALA, On: 13-May-2015 Intent PiliMandie Degroot CNP Pili PHYSICAL THERAPY EVALUATION On: 14-Jul-2014 Intent ([id number])By: Sandra Degroot CNP, CNP Pili Radiology - Knee - RightBy: Zane On: 14-Jul-2014 Intent SALLY Sandra Lockwood Zane ZAVALA Pili IV Needle placement (99400)By: On: 24-Feb-2014 Intent Zane ZAVALA PiliMandie Degroot CNP Pili Comments: 22G insyte initiated in R medial wrist, no s/s infiltration, redness, swelling, dsg dry intact, infusing on gravity pole at 48gtts/min- catheter removed intact, tolerated well- 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 METAL 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 Rocephin Injection, 2 Gram On: 24-Feb-2014 Intent ([id number])By: Sandra Degroot CNP Comments: lot # [id number]- 09/06/16site-R medial wrist route-IVdose- 2GCTyler Sandra LEE CNP ELECTROCARDIOGRAM, COMPLETE (ECG) On: 22-Dec-2013 Intent ([id number])By: Sandra Degroot CNP, CNP, Mary E FLU VAC, SPLIT, >3 YEARS, INTRAMUSC On: 30-Dec-2012 Intent (13677)By: Leslie Roberts LPN Comments: Lot:[id number]:Dose:0.5mLRoute:IMSite:L DltdGiven By:DELILAH signed IMMUNIZ ADMNIN, 1 VAC, SNGL/COMBO On: 30-Dec-2012 Intent (00373)By: Leslie Roberts LPN Planned Medications INJECTION, CEFTRIAXONE [...] benign : DISCONTINUED - METABOLIC PANEL, COMPREHENSIVE (31810) Indication: Hypertension, benign Hypertension, benign : DISCONTINUED - CBC with auto diff (02725) Indication: Hypertension, benign Hyperglycemia : How to [...] Advance Directives Name Dates Details Immunization Registry [place] - Effective on Effective: 01-Jan-201801/01/2018. Expiration date [...] medication use: no s End: 06-Sep-2017 10:33 niot effects (dry mouth), compliant with dosing regimen [...] patient does not have durable power of transactional attorney or 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 Dr. Ahumada neurology. )., [ADDITIONAL REASON] Follow [...]
--- OUTSIDE RECORDS SUMMARY | 2018-07-02 03:42 | XMS RPT_ITS | Continuity of Care Document ---
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 [address] OFFICE VISIT Date of Service: 01/23/18 1611 MR#: [id number] Acct: [id number] Name: TISH MALAVE ep #: [id number] : 1950 From: Guido Hogue MD Age/Sex: [...] uninvolved. Biology proved ER positi ve (95%) CO positive (5%) and HER2-griffin nonamplified by FISH. [...] Code Visi t Office Visits / Consults: 27626 OV L4 Est 01/23/18 1620 <Electronically signed by Guido Hogue MD> Date Guido Hogue MD Cosigner Sig nature: Date (if applicable) CC: 17-Dec-2017 Knee 4 or More Views Result: Comments: See Note; NOTES: [facility] Imaging Services [address] [place] [address] Knee 4 or More Views MR#: [id number] Acct: [id number] Name: TISH MALAVE Rep #: [id number] : 1950 F 67 From: Fer Amos MD PCP: Sandra Degroot NP Status: REG CLI Study: Knee 4 or More Views Date of Exam: 12/17/17 Exam# [id number] Ordering Dr: Lynda Suazo STUDY: X-RAY - [...] , CC: Sandra Degroot NP; VALENTE Suazo Net Developer Programmer: Signed 18-Nov-2017 SCREENING MAMM (CAD), BILAT Result: Comments: See Note; NOTES: [facility] Imaging Services [address] [place] [address] SCREENING MAMM (CAD), BILAT MR#: [id number] Acct: [id number] Name: TISH MALAVE Rep #: [id number] : 1950 F 67 From: Xu Adams MD PCP: Sandra Degroot NP Status: PRE CLI Study: SCREENING MAMM (CAD), BILAT Date of Exam: 11/18/17 Exam# [id number] Ordering Dr: Guido Hogue MD MAMM OGRAPHY [...] delay biopsy of a clinically suspicious abnormality. [id number] Electronically Signed: Xu Adams MD at 15:22 EDT Tel [phone], Service support , Fa x [phone] CC: Sandra Degroot NP; Guido Hogue MD Net Developer Programmer: Signed 05-Oct-2017 PET/CT Tumor Base -Thigh Init Result: Comments: See Note; NOTES: [facility] Imaging Services [address] [place] [address] PET/CT Tumor Base -Thigh Init MR#: [id number] Acct: [id number] Name: TISH MALAVE Rep #: [id number] : 1950 F 66 From: Hossein Oneill DO PCP: Sandra Degroot NP Status: REG CLI Study: PET/CT Tumor Base -Thigh Init Date of Exam: 10/07/17 Exam# [id number] Ordering Dr: Sandra DegrootINA ON: FDG PET/CT [...] the axial skeletal structures. ORDER # : [id number] PET/PET/CT Tumor Base -Thigh Init IMPRESSION: 1. [...] Service support , CC: Sandra Degroot NP Net Developer Programmer: Signed 23-Sep-2017 Chest WITH Contrast Result: Comments: See Note; NOTES: [facility] Imaging Services [address] [place] [address] Chest WITH Contrast MR#: [id number] Acct: [id number] Name: TISH MALAVE Rep #: [id number] OB: 1950 F 66 From: Vasu Wright MD PCP: Sandra Degroot NP Status: REG CLI Study: Chest WITH Contrast Date of Exam: 09/23/17 Exam# [id number] Ordering Dr: Sandra Degroot STUDY: CT CHEST [...] verbal consultatio n. CC: Sandra Degroot NP Net Developer Programmer: Signed 17-Jul-2017 Oncology Visit Report Result: Comments: See Note; NOTES: [facility] [place] [address] OFFICE VISIT Date of Service: 07/17/17 1446 MR#: [id number] Acct: [id number] Name: TISH MALAVE #: [id number] : 1950 From: Guido Hogue MD Age/Sex: [...] were uninvolved. Biology proved ER positive (95%) CO positive (5%) and HER2-griffin nonampl ified by [...] Chronic Code Visit Office Visits / Consults: 43569 OV L4 Est 07/17/17 1511 <Electronically signed by Guido Hurtado D> Date Guido Hogue MD Cosigner Signature: Date (if applicable) CC: 16-Nov-2016 Breast Limited Unilateral Result: Comments: See Note; NOTES: [facility] Imaging Services [address] [place] [address] Breast Limited Unilateral MR#: [id number] Acct: [id number] Name: TISH MALAVE Rep #: [id number] : 1950 F 66 From: Xu Adams MD PCP: Sandra Degroot Status: REG CLI Study: Breast Limited Unilateral Date of Exam: 11/16/16 Exam# [id number] Ordering Dr: Maeve Tarango STUDY: ULTR ASOUND [...] Xu Adams MD at 15:16 EDT Tel [phone], Service support , CC: Sandra Degroot; Maeve Tarango Net Developer Programmer: Signed 16-Nov-2016 DIAG MAMM W/CAD, UNILAT Result: Comments: See Note; NOTES: [facility] Imaging Services [address] [place] [address] DIAG MAMM W/CAD, UNILAT MR#: [id number] Acct: [id number] Name: TISH MALAVE Rep #: [id number] : 1950 F 66 From: Xu Adams MD PCP: Sandra Degroot Status: REG CLI Study: DIAG MAMM W/CAD, UNILAT Date of Exam: 11/16/16 Exam# [id number] Ordering Dr: Maeve Tarango MAMMOGRAPHY - U [...] Xu Adams MD at 15:24 EDT Tel [phone], Service supp ort , CC: Sandra Degroot; Maeve Tarango Net Developer Programmer: Signed 09-Aug-2016 Chest WITH Contrast Result: Comments: See Note; NOTES: [facility] Imaging Services [address] [place] [address] Verdana 4d Chest WITH Contrast MR#: [id number] Acct: [id number] Name: TISH MALAVE Rep #: [id number] : 1950 F 65 From: Mario Horton MD PCP: Sandra Degroot Status: REG CLI Study: Chest WITH Contrast Date of Exam: 08/09/16 Exam# [id number] Ordering Dr: Jean Carlos Clarke MD STUDY: [...] CC: Sandra sims; Jean Carlos Clarke MD Net Developer Programmer: Signed 09-Jul-2016 Chest PA and Lateral Result: Comments: See Note; NOTES: [facility] Imaging Services [address] [place] [address] Verdana 4d Chest PA and Lateral MR#: [id number] Acct: [id number] Name: TISH MALAVE Rep #: [id number] : 1950 F 65 From: Xu Adams MD PCP: Sandra Degroot Status: REG CLI Study: Chest PA and Lateral Date of Exam: 07/09/16 Exam# [id number] Ordering Dr: Sandra Degroot STUDY: X-RAY C [...] Xu Adams MD at 13:03 EDT Tel [phone], Service support [phone], CC: Sandra Degroot Net Developer Programmer: Signed 07-Jun-2016 SCREENING MAMM (CAD), BILAT Result: Comments: See Note; NOTES: [facility] Imaging Services [address] [place] [address] Verda 4d SCREENING MAMM (CAD), BILAT MR#: [id number] Acct: [id number] Name: TISH MALAVE Rep #: [id number] : 1950 F 65 From: Xu Adams MD PCP: Sandra Degroot Status: REG CLI Study: SCREENING MAMM (CAD), BILAT Date of Exam: 06/07/16 Exam# [id number] Ordering Dr: Rona Tarango MAMMOGRAPHY - BILATERAL [...] delay biopsy of a clinically suspicious abnormality. [id number] Electronically Signed: Xu Adams MD at 8:17 EST Tel [phone], Service support [phone], CC: Sandra Degroot; Maeve Emelina Net Developer Programmer: Signed 30-Apr-2016 Chest without Contrast Result: Comments: See Note; NOTES: [facility] Imaging Services [address] [place] [address] Kattydana 4d Chest without Contrast MR#: [id number] Acct: [id number] Name: TISH MALAVE Rep #: [id number] : 1950 F 65 From: Lex Mosley MD PCP: Sandra Degroot Status: REG CLI Study: Chest without Contrast Date of Exam: 04/30/16 Exam# [id number] Ordering Dr: Jean Carlos Clarke MD [facility] DY: CT CHEST WITHOUT CONTRAST REASON [...] CC: Sandra Degroot; Jean Carlos Clarke MD Net Developer Programmer: Signed 12-Oct-2015 Dexa Bone Density Study (HP) Result: Comments: See Note; NOTES: [facility] Imaging Services [address] [place] [address] Verdana 4d Dexa Bone Density Study () MR#: [id number] Acct: [id number] Name : TISH MALAVE Rep #: [id number] : 1950 F 64 From: Xu Adams MD PCP: Sandra Degroot Status: REG CL Study: Dexa Bone Density Study (HP) Date of Exam: 10/12/15 Exam# [id number] Ordering Dr: Trae Owen MD STUDY: DUAL [...] Xu Adams MD at 13:05 EDT Tel [phone], Service support [phone], CC: Sandra Degroot; Trae Owen Net Developer Programmer: Signed 26-May-2015 Bilat Diag Digital AND CAD Result: Comments: See Note; NOTES: [facility] Imaging Services [address] [place] [address] Verdana 4d Bilat Diag Digital AND CAD MR#: [id number] Acct: [id number] Name: TISH MALAVE Rep #: [id number] : 1950 F 64 From: Xu Adams MD PCP: Sandra Degroot Status: REG CLI Study: Bilat Diag Digital AND CAD Date of Exam: 05/26/15 Exam# [id number] Ordering Dr: Deandra Ellison MD MAMMOGRAPHY - [...] Xu Adams MD at 9:06 EST Tel [phone], Service support [phone], CC: Sandra Degroot; Deandra Ellison MD Net Developer Programmer: Signed 17-May-2015 Abdomen Complete Result: Comments: See Note; NOTES: [facility] Imaging Services [address] [place] [address] Verdana 4d Abdomen Complete MR#: [id number] Acct: [id number] Name: TISH MALAVE Rep #: [id number] : 1950 F 64 From: Jaclyn Rojas MD PCP: Sandra Degroot Status: REG CLI Study: Abdomen Complete Date of Exam: 05/17/15 Exam# [id number] Ordering Dr: Sandra Degroot STUDY: A BDOMINAL [...] at 14:26 EST Tel , Service support [phone], CC: Sandra Degorot Net Developer Programmer: Signed 14-Oct-2014 History and Physical Exam Result: Comments: See Note; NOTES: [facility] Medical Records Department [address] [place] [address] History and Physical 10/14/14 1021 MR#: [id number] Acct: [id number] Name: TISH MALAVE Rep #: [id number] : 1950 64 From: Deandra Ellison MD PCP: Sandra Degroot Status: REG CLI Y Location: [facility] History and Physical - Blank [...] 1cm) N0 (3 SLN negative) ER 95% CO 5%, Her2-negative Hypertension Asthma/COPD Past Surgical History: [...] Hx of NEOPLASM, MALIGNANT, BREAST, CENTRAL (ICD-174.1) (AOG88-S75.119) See below. Problem # 2: Other (abnormal) findings on radiological examination of breast (ICD-793.89) ( XNO10-I76.8) I have discussed above with the patient [...] Operative Report Result: Comments: See Note; NOTES: [facility] Medical Records Department [address] [place] [address] Operative Report 10/12/14 1154 MR#: [id number] Acct: [id number] Name: TISH MALAVE Rep #: [id number] : 1950 63 From: Deandra Ellison MD PCP: Sandra Degroot Status: REG CLI Y Location: [facility] Report of Operation Date of [...] 1st Lesion Result: Comments: See Note; NOTES: [facility] Imaging Services [address] [place] [address] Ultrasound Report MR#: [id number] Acct: [id number] Name: TISH MALAVE Rep #: [id number] : 1950 F 63 From: Xu Adams MD PCP: Sandra Degroot Status: [facility] CL Study: US Breast Biopsy 1st Lesion Date of Exam: 10/12/14 Exam# [id number] Ordering Dr: Deandra Ellison MD STUDY : [...] Xu Adams MD at 10:43 EDT Tel [phone], Service support [phone], CC: Sandra Degroot; Deandra Ellison MD Net Developer Programmer: Signed 01-Oct-2014 Breast Limited Unilateral Result: Comments: See Note; NOTES: [facility] Imaging Services [address] [place] [address] Ultrasound Report MR#: [id number] Acct: [id number] Name: TISH MALAVE Rep #: [id number] : 1950 F 63 From: Xu Adams MD PCP: Sandra Degroot Status: REG CLI Study: Breast Limited Unilateral Date of Exam: 10/01/14 Exam# [id number] Ordering Dr: Trae Owen MD STUDY : [...] Xu Adams MD at 14:52 EDT Tel [phone], Service support [phone], CC: Sandra Degroot; Trae Owen Net Developer Programmer: Signed 01-Oct-2014 Unilat Lt Diag Digital AND CAD Result: Comments: See Note; NOTES: [facility] Imaging Services [address] [place] [address] Breast Imaging Report MR#: [id number] Acct: [id number] Name: TISH MALAVE Rep #: [id number] : 1950 F 63 From: Xu Adams MD PCP: Sandra Degroot Status: REG CLI Study: Unilat Lt Diag Digital AND CAD Date of Exam: 10/01/14 Exam# [id number] Ordering Dr: Trae Owen MD MAMMOGRAPHY - [...] Xu Adams MD at 14:29 EDT Tel [phone], Service support [phone], CC: Sandra Degroot; Trae Owen Net Developer Programmer: Signed 07-Sep-2014 PT Discharge Summary Result: Comments: See Note; NOTES: [facility] [address] [place] [address] Fax REHABILITATION SERVICES DISCHARGE SUMMARY MR#: [id number] Acct: [id number] Name: TISH MALAVE Rep #: [id number] : 1950 63 From: Ainsley Ingram Referring Dr.: Sandra Degroot Status: PRE RCR Eval Date: Discharge Da te: DATE OF SERVICE: Date of initial evaluation is July 20, 2014. The patient attended physical therapy for initial evaluation and has not returned since. PT feels it is appropriate she be dis charged from [facility]. Ainsley Ingram DPT T: CHAPIN JOB: [id number] <Electronically signed by Ainsley Ingram > 09/07/14 1459 CC: Signed 20-Jul-2014 Inital Evaluation - PT Result: Comments: See Note; NOTES: [facility] [address] [place] [address] Fax REHABILITATION SERVICES INITIAL EVALUATION MR#: [id number] Acct: [id number] Name: TISH MALAVE Rep #: [id number] : 1950 63 From: Ainsley Ingram Referring Dr.: Sandra Degroot Status: REG R Insurance: [facility] Pham Date: DATE OF SERVICE: [...] pain. Ainsley Ingram DPT T: CHAPIN JOB: [id number] <Electronically signed by Ainsley Ingram > 5 1632 CC: Signed For Medicare only, by signing this I certify the plan of care. Physicians Signature Date 14-Jul-2014 Knee 4 or More Views Result: Comments: See Note; NOTES: [facility] Imaging Services [address] [place] [address] Radiology Report MR#: [id number] Acct: [id number] Name: TISH MALAVE Rep #: [id number] : 1950 F 63 From: Nasir Rodriguez DO PCP: Sandra Degroot Status: REG CLI Study: Knee 4 or More Views Date of Exam: 07/14/14 Exam# [id number] Ordering Dr: Sandra Degroot STUDY: X-RAY - [...] Nasir Rodriguez DO at 15:14 EDT Tel [phone], Service support [phone], RAD/Knee 4 or More Views IMPRESSION: Degenerative arthrosis. Electronically Signed: Nasir Rodriguez DO at 15:14 EDT Tel [phone], Service support [phone], Fax CC: Sandra Degroot Net Developer Programmer: Signed 24-May-2014 Bilat Diag Digital AND CAD Result: Comments: See Note; NOTES: [facility] Imaging Services [address] [place] [address] Breast Imaging Report MR#: [id number] Acct: [id number] Name: TISH MALAVE Rep #: [id number] : 1950 F 63 From: Xu Adams MD PCP: Sandra Degroot Status: REG CLI Study: Bilat Diag Digital AND CAD Date of Exam: 05/24/14 Exam# [id number] Ordering Dr: Trae Owen MD M AMMOGRAPHY [...] Xu Adams MD at 9:22 EST Tel [phone], Service suppo rt [phone], CC: Sandra Degroot; Trae Owen Net Developer Programmer: Signed 04-Sep-2013 Breast Unilateral Result: Comments: See Note; NOTES: [facility] Imaging Services [address] [place] [address] Ultrasound Report MR#: [id number] Acct: [id number] Name: TISH MALAVE Rep #: [id number] : 1950 F 62 From: Xu Adams MD PCP: Sandra Degroot Status: REG CLI Study: Breast Unilateral Date of Exam: 09/04/13 Exam# [id number] Ordering Dr: Trae Owen MD STUDY: ULTRASO UND BREAST(S) - LEFT REASON FOR EXAM: Female, 62 years old. Palpable lump left breast. TECHNIQUE: Axial and longitudinal images of the LEFT breast were performed with a high resolution [facility] t [facility]. COMPARISON: Comparison is made with prior mammogram [...] Xu Adams MD at 14:14 EDT Tel [phone], Service support [phone], CC: Sandra Degroot; Trae Owen Net Developer Programmer: Signed 04-Sep-2013 Bilat Diag Digital & CAD Result: Comments: See Note; NOTES: [facility] Imaging Services [address] [place] [address] Breast Imaging Report MR#: [id number] Acct: [id number] Name: TISH MALAVE Rep #: [id number] : 1950 F 62 From: Xu Adams MD PCP: Sandra Degroot Status: REG CLI Exam# [id number] Ordering Dr: Trae Owen MD MAMMOGRAPHY - [...] Xu Adams MD at 15:01 EDT Tel [phone], Service support [phone], CC: Sandra Zane; Trae Owen Net Developer Programmer: Signed 04-Sep-2013 Yesika Hernandez Digital & CAD Result: Comments: See Note; NOTES: [facility] Imaging Services [address] [place] [address] Breast Imaging Report MR#: [id number] Acct: [id number] Name: TISH MALAVE Rep #: [id number] : 1950 F 62 From: Xu Adams MD PCP: Sandra Degroot Status: REG CLI Exam# [id number] Ordering Dr: Trae Owen MD ADDENDUM by Xu Adams MD on 09/07/13 at 1603 === ADDENDUM This is an addendum report. The report is dictated for clarity of the laterality. The pa tient is status post left lumpectomy and not the right lumpectomy. Electronically Signed: Xu Adams MD at 16:03 EDT Tel [phone], Service support [phone], Fax 09/07/13 1612 Date cc: Sandra Degroot; [...] Xu Adams MD at 15:01 EDT Tel [phone], Service s upport [phone], CC: Sandra Degroot; Trae Owen Net Developer Programmer: Signed Family History Unknown Family Member Name Dates Details Daughter 1 Comments: fibromyalgia, stiff man syndrome, lupus Status: Active Daughter 2 Comments: ET, MCTD ( lupus, RA) Status: Active Father Comments: CHF, tremor, HTN, [place] Status: Active Sister 1 Comments: Br Ca Status: Active Sister 2 Comments: lupus Status: Active Son 1 Comments: DM Status: Active Social History Name Dates Details Caffeine Use Status: Active Current Work/Study Status Comments: [employer] Status: Active Exercise History: Does not exercise. Status: Active No Drug Use Status: Active Non Drinker/No Alcohol Use Status: Active Tobacco Use: Current every day smoker. Status: Active Smoking Status Name Dates Details Current every day smoker Vital Signs Date Test Result Details 7-Kwp-904661:29 Temperature 96.7 f Comments: Method: Temporal Pulse [...] W/Diff, Automated Comments: Reason for Laboratory Test .[facility] [address] [place], [place], [address] Absolute Lymph 1.42 {X10_3/ul} (Normal) Range: 0.83-4.51 [...] 4.2-5.4 WBC 10.3 K/mm3 (Normal) Range: 4.4-11.0 36-Qky-113825:36 Comprehensive Metabolic Profil Comments: Reason for Laboratory Test .[facility] [address] [place], [place], [address] GAP 6 (Normal) Range: 5-15 CO2 27.0 [...] A.D.A. criteria.Please note revised GLUCOSE reference range dyyzixchg48/02/2018. 87-Zsf-188747:45 URINE FABIAN CULTURE-IDENTIFICATN Comments: PATIENT NOT FASTINGPERFORMED BY: [facility] Nzwghc1648 [facility] [id number] Information: SRC:ALLA (35361) Antimicrobial MIHEAD (Normal) Comments: S = Susceptible; [...] Proteusmirabilis. (Abnormal) Urine Final report Culture,Comprehensive (Abnormal) 70-Haj-079968:24 Urinalysis, Office (80532) UA - LEUKOCYTE ESTERASE Trace (Normal) UA - NITRITE Negative (Normal) URINE UROBILINGN DC TIMED Normal mg/dL (Normal) UA - PROTEIN Negative mg/dL (Normal) UA - PH 7 (Normal) UA - BLOOD Hemolyzed Trace (Normal) UA - SPECIFIC GRAVITY 1.015 (Normal) UA - KETONES Negative mg/dL (Normal) UA - BILIRUBIN Negative (Normal) UA - GLUCOSE Negative (Normal) 66-Cyz-616934:23 HgA1C , Office (31332) HgA1C , Office 5.8 % (Normal) Range: 4.6 - 7.1 46-Vtp-055680:23 Blood Glucose , Office (71549) Blood Glucose , Office 117 (Normal) 42-Uzl-854205:47 CREATININE FINGERSTICK Comments: [facility] [address] [place] [address] EGFR WB > 60.0000 mL/min (Normal) CREATININE WB 0.9 mg/dL (Normal) Range: 0.55-1.02 :04 HgA1C , Office (16138) HgA1C , Office 5.7 % (Normal) Range: 4.6 - 7.1 :04 Blood Glucose , Office (82266) Blood Glucose , Office 108 (Normal) :50 CBC W/Diff, Automated Comments: Reason for Laboratory Test .[facility] [address] [place], [address] Absolute Lymph 1.83 {X10_3/ul} (Normal) [...] 4.2-5.4 WBC 6.5 K/mm3 (Normal) Range: 4.4-11.0 46-Cte-229931:50 Comprehensive Metabolic Profil Comments: Reason for Laboratory Test .[facility] [address] [place], [address] GAP 7 (Normal) Range: 5-15 CO2 31.0 mmol/L (Normal) Range: 21.0-32.0 CL 97 mmol/L (Abnormal) Range: 98-107 K 4.0 mmol/L (Normal) Range: 3.5-5.1 NA 135 mmol/L (Abnormal) Range: 136-145 T BILI 0.60 mg/dL (Normal) Range: 0.20-1.00 ALT 20 U/L (Normal) Range: 13-56 Comments: Please note revised ALT reference range yizvlbfpx88/28/2018. ALK P 135 U/L (Abnormal) Range: 45-117 [...] Comments: Please note revised GLUCOSE reference range njhayhzce83/02/2018. :32 HgA1C , Office (74618) Comments: 5.7 HgA1C , Office 5.7 % (Normal) Range: 4.6 - 7.1 :32 Blood Glucose , Office (13542) Blood Glucose , Office 141 (Normal) Comments: fasting 21-Rel-205213:04 Microscopic Examination Comments: PATIENT WAS FASTINGPERFORMED BY: [employer] [facility] [id number] Bacteria None seen (Normal) Mucus Threads Present (Normal) Epithelial Cells (non renal) 0-10 {/hpf} (Normal) Range: 0 - 10 RBC None seen {/hpf} (Normal) Range: 0 - 2 WBC 11-30 {/hpf} (Abnormal) Range: 0 - 5 33-Hjn-951457:04 URINALYSIS (83094) Comments: Mar or Apr 2017; PATIENT WAS FASTINGPERFORMED BY: [employer]6370 [employer] [facility] [id number] Microscopic Examination See below: (Normal) Comments: Microscopic was indicated and was performed. Nitrite, Urine Negative (Normal) Urobilinogen,Semi-Qn 0.2 mg/dL (Normal) Range: 0.2-1.0 Bilirubin Negative (Normal) Occult Blood Trace (Abnormal) Ketones Negative (Normal) Glucose Negative (Normal) Protein Negative (Normal) WBC Esterase 2+ (Abnormal) Appearance Clear (Normal) Urine-Color Yellow (Normal) pH 7.5 (Normal) Range: 5.0-7.5 Specific [place] 1.012 (Normal) Range: 1.005-1.030 23-Abl-510643:04 MICROALBUMIN: CREATININE RATIO Comments: MarApr 2017; PATIENT WAS FASTINGPERFORMED BY: [employer] [facility] [id number] (68958) AND (62019) Alb/Creat Ratio 12.7 {mg/g_creat} (Normal) Range: 0.0-30.0 Albumin, Urine 6.3 ug/mL (Normal) Creatinine, Urine 49.6 mg/dL (Normal) 56-Ksh-556231:04 LIPID PANEL (01958) Comments: Fasting Mar or Apr 2017; PATIENT WAS FASTINGPERFORMED BY: [employer] [facility] [id number] LDL/HDL Ratio 2.3 {ratio_units} (Normal) Range: 0.0-3.2 Comments: LDL/HDL Ratio Men Women 1/2 Avg.Risk 1.0 1.5 Av g.Risk 3.6 3.2 2X Avg.Risk 6.2 5.0 3X Avg.Risk 8.0 6.1 LDL Cholesterol Calc 91 mg/dL (Normal) Range: 0-99 VLDL Cholesterol Bella 14 mg/dL (Normal) Range: 5-40 HDL Cholesterol 39 mg/dL (Abnormal) Triglycerides 69 mg/dL (Normal) Range: 0-149 Cholesterol, Total 144 mg/dL (Normal) Range: 100-199 48-Gqo-329728:04 CALCIFEDIOL (22928) Comments: Mar or Apr 2017; PATIENT WAS FASTINGPERFORMED BY: [facility]outCo[facility] HospitalJoputu3241 [facility] [id number]; OV 2/6 Vitamin D, 25-Hydroxy 48.9 ng/mL (Normal) Range: 30.0-100.0 Comments: Vitamin D deficiency has been defined by the [place] of[employer] and an Endocrine Society practice guideline as alevel of serum 25-OH vitamin D less than 20 ng/mL (1,2).The Endocrine Society went on to further define vitamin Dinsufficiency as a level between 21 and 29 ng/mL (2).1. IOM ([place] [employer]). 2010. Dietary reference intakes for calcium and D. [place]: The National Academies Press.2. Carlitso MF, Rene LAUREANO, Garth CARROLL, et al. Evaluation, treatment, and prevention of vitamin D deficiency: an Endocrine Society clinical practice guideline. JCEM. 2010; 96(7):1911-30. 31-Whp-237088:04 TSH (29867) Comments: Mar or Apr 2017; PATIENT WAS FASTINGPERFORMED BY: [employer] ([employer])[facility] HospitalEabyrs9756 [facility] [facility] [id number] TSH 1.660 {uIU/mL} (Normal) Range: 0.450-4.500 07-Dfr-782018:04 Metabolic Panel, Comprehensive Comments: Mar or Apr 2017; PATIENT WAS FASTINGPERFORMED BY: LabCoCooper University HospitalWsmbgn2491 [facility] [id number] (02787) ALT (SGPT) 16 [iU]/L (Normal) Range: 0-32 [...] Glucose, Serum 100 mg/dL (Abnormal) Range: 65-99 10-Ghf-343033:04 CBC, Platelets & Auto Diff Comments: Mar or Apr 2017; PATIENT WAS FASTINGPERFORMED BY: [facility]6370 [facility] [id number] (05056) Immature Grans (Abs) 0.0 {x10E3/uL} (Normal) Range: [...] (Normal) Range: 3.4-10.8 :45 HgA1C , Office (75991) HgA1C , Office 5.8 % (Normal) Range: 4.6 - 7.1 :45 Blood Glucose , Office (37638) Blood Glucose , Office 110 (Normal) :33 CBC W/Diff, Auto - EPLAB Comments: Order Date: 05/10/16Order Info: [id number] - *CBC w/Diff - oncology ONLYAt [facility] [place] Medical Oncologypatients receive CBC w/auto Differential ONLY. Physicianwiozzie place an order fo Only r a manual differential or Pathologistreview at his discretion. [facility]. [address] [place] [address] [address] MIXED CROP FARMER: STEVIE COTA DO PH:[phone] Clinic Marymount Hospital Bqwqglgxyk[address] [place], [place], [id number] Absolute Lymph 2.40 {X10_3/uL} (Normal) Range: 0.83-4.51 [...] 4.2-5.4 WBC 8.9 K/mm3 (Normal) Range: 4.4-11.0 7-Vkb-111855:33 Comprehensive Metabolic Profil Comments: Order Date: 05/10/16Order Info: [id number] - *CMP Complete Metabolic PanelWCleveland Clinic Marymount Hospital Gknnghoxyx[address] [place], [place], [address] GAP 5 (Normal) Range: 5-15 CO2 33.0 [...] D,25 Hydroxy Comments: Order Date: 05/10/16Order Info: [id number] - *Vitamin D (Calciferol)[facility] Izywurbffj[address] [place], [place], [address] Vitamin D 25-OH 37.0 ng/mL (Normal) Comments: Vitamin D 25(OH) Status Range Deficiency <20 ng/mL (50nmol/L) Insuffciency 20 - 30 ng/mL (50 - 75 nmol/L) Sufficiency 30 - 100 ng/mL (75 - 250 nmol/L) Toxicity >100 ng/mL (>250 nmol/L) 11-Sep-20168:37 Metabolic Panel, Comprehensive Comments: September 11; PATIENT WAS FASTINGPERFORMED BY: LabCoCooper University HospitalHycaaf6675 [facility] [id number] (27400) ALT (SGPT) 17 [iU]/L (Normal) Range: 0-32 [...] (Abnormal) Range: 65-99 :57 HgA1C , Office (32459) HgA1C , Office 5.9 % (Normal) Range: 4.6 - 7.1 :57 Blood Glucose , Office (90393) Blood Glucose , Office 118 (Normal) :30 Serum Creatinine AND GFR Comments: [facility] [address] [place], [place], [address] EST GFR - AA 87 mL/min (Normal) Comments: GFR Calc EST GFR 72 mL/min (Normal) Comments: Non- GFR Calc CREAT,SERUM 0.84 mg/dL (Normal) Range: 0.55-1.02 Comments: The validity of the calculated GFR AND GFRAA in patients over70 years has not been determined. Clinical correlation isessential. :27 Culture, Blood (WB) Comments: [facility] Nkcmoltvdi[address] [place], [place], [address] CUB See Note (Normal) Comments: BCNo growth in 5 days. :27 Culture, Blood (WB) Comments: [facility] Sqtagxqdkt5775 [facility] [address]. [place], [place], [address] CUB See Note (Normal) Comments: BCNo growth in 5 days. 3-Dub-764355:01 COMPLEMENT C4 (90893) Comments: PATIENT NOT FASTINGPERFORMED BY: [employer] Kenshv2717 [facility] [id number] Complement C4, Serum 36 mg/dL (Normal) Range: 14-44 8-Zcw-418332:01 COMPLEMENT C3 (15628) Comments: PATIENT NOT FASTINGPERFORMED BY: [employer] Jtkauw3417 [facility] [id number] Complement C3, Serum 185 mg/dL (Abnormal) Range: 82-167 6-Cuo-537470:01 COMPLEMENT, TOTAL (CH50) Comments: PATIENT NOT FASTINGPERFORMED BY: [facility]6370 [facility] [id number] (88783) Complement, Total (CH50) 56 U/mL (Normal) Range: 42-60 9-Ffn-197937:01 Sed Rate Erythrocyte (11215) Comments: PATIENT NOT FASTINGPERFORMED BY: [facility]6370 [facility] [id number] Sedimentation Rate-Westergren 50 mm/h (Abnormal) Range: 0-40 8-Hnt-628889:01 CBC, Platelets & Auto Diff Comments: PATIENT NOT FASTINGPERFORMED BY: LabCoCooper University HospitalItirqn8683 [facility] [id number] Information: [id number], [id number] SRC: (88401) Immature Grans (Abs) 0.0 {x10E3/uL} (Normal) Range: [...] 3.77-5.28 WBC 13.6 {x10E3/uL} (Abnormal) Range: 3.4-10.8 1-Oxl-183807:49 Rapid Flu (66730 x 2) Comments: ? borderline Influenza A Ag neg a/b (Normal) : Influenza A&B Viral Culture Comments: PATIENT NOT FASTINGPERFORMED BY: [employer] SocialRadar [facility] [id number] (37926) Viral Culture,Rapid,Influenza FLUABN (Normal) Comments: Negative:No Influenza A or B detected. :53 Urinalysis, Office (09190) UA - LEUKOCYTE ESTERASE Small (Normal) UA [...] FABIAN CULTURE-IDENTIFICATN Comments: PATIENT NOT FASTINGPERFORMED BY: TapBookAuthor [facility] [id number] (80602) Antimicrobial MIHEAD (Normal) Comments: S = Susceptible; [...] Final report Culture,Comprehensive (Abnormal) :01 CULTURE, SPUTUM (22690) Comments: PATIENT NOT FASTINGPERFORMED BY: [employer] Nglchv7068 [facility] [id number] Result 1 HAEMIN (Abnormal) Comments: Haemophilus influenzaeModerate [...] Culture (Abnormal) :28 Blood Glucose , Office (19960) Blood Glucose , Office 109 (Normal) :48 HgA1C , Office (97863) HgA1C , Office 6.0 % (Normal) Range: 4.6 - 7.1 :48 Blood Glucose , Office (46968) Blood Glucose , Office 152 (Normal) 02-Bjm-319303:23 CBC W/Diff, Auto - EPLAB Comments: At [facility] [place] Medical Oncologypatients receive CBC w/auto Differential ONLY. Physicianwill place an order for a manual differential or Pathologistreview at his discretion. [facility] OUTPATIENT [facility]. [address] [place] [address] [address] MIXED CROP FARMER: STEVIE COTA DO PH:[phone] Medical Center Sdrgvxtldf[address] [place], [place], [address] ; another doc Absolute Lymph 2.39 {X10_3/uL} [...] 4.2-5.4 WBC 7.6 K/mm3 (Normal) Range: 4.4-11.0 13-Spe-534869:23 Comprehensive Metabolic Profil Comments: Order Date: 11/03/15Interface Comments: STATOrder Date: 11/03/15WCleveland Clinic [facility] Hospital [address]jtxrkw[address] [place], [place], [address] ; another doc GAP 8 (Normal) Range: [...] 7-18 GLU 101 mg/dL (Normal) Range: 70-110 84-Gax-963954:23 Vitamin D 1,25-Dihydroxy Comments: Order Date: 11/03/15Order Date: 11/03/15Interface Comments: STATOrder Date: 11/03/15[facility] (refer to report for specific site)refer to report for address and phone number; another doc VITD 81659 27.8 pg/mL (Normal) Range: 19.9-79.3 Comments: Performed at: [address] [id number] Director: Sascha Cedeno MD, Phone: [phone] 25-Thx-598835:01 HgA1C , Office (97695) Comments: 5.8 HgA1C , Office 5.8 % (Normal) Range: 4.6 - 7.1 07-Feb-20169:43 Microscopic Examination Comments: PATIENT WAS FASTINGPERFORMED BY: [employer]6370 [employer] [facility] [id number] Bacteria Few (Normal) Mucus Threads Present (Normal) Epithelial Cells (non renal) None seen {/hpf} (Normal) Range: 0 - 10 RBC None seen {/hpf} (Normal) Range: 0 - 2 WBC 0-5 {/hpf} (Normal) Range: 0 - 5 :43 Lipid Panel (46356) Comments: PATIENT WAS FASTINGPERFORMED BY: [employer]70 [employer] [facility] HospitalTriplAtrium Health [id number] LDL/HDL Ratio 1.7 {ratio_units} (Normal) Range: 0.0-3.2 [...] 116 mg/dL (Normal) Range: 100-199 :43 CALCIFEDIOL (47041) Comments: PATIENT WAS FASTINGPERFORMED BY: [employer]70 [facility] [id number] Vitamin D, 25-Hydroxy 62.9 ng/mL (Normal) Range: 30.0-100.0 Comments: Vitamin D deficiency has been defined by the [place] of[place]icine and an Endocrine Society practice guideline as alevel of serum 25-OH vitamin D less than 20 ng/mL (1,2).The Endocrine Society went on to further define vitamin Dinsufficiency as a level between 21 and 29 ng/mL (2).1. IOM ([place] of Medicine). 2010. Dietary reference intakes for calcium and D. [place]: The National Academies Press.2. Carlitos MF, Rene LAUREANO, Garth CARROLL, et al. Evaluation, treatment, and prevention of vitamin D deficiency: an Endocrine Society clinical practice guideline. JCEM. 2010; 96(7):1911-30. :43 URINALYSIS, W/ MICRO (95115) Comments: PATIENT WAS FASTINGPERFORMED BY: [employer]6370 [facility] [id number] Microscopic Examination See below: (Normal) Comments: Microscopic was indicated and was performed. Microscopic Examination MICRON (Normal) Comments: Microscopic follows if indicated. Nitrite, Urine Negative (Normal) Urobilinogen,Semi-Qn 1.0 mg/dL (Normal) Range: 0.2-1.0 Bilirubin Negative (Normal) Occult Blood Negative (Normal) Ketones Negative (Normal) Glucose Negative (Normal) Protein Negative (Normal) WBC Esterase Negative (Normal) Appearance Clear (Normal) Urine-Color Yellow (Normal) pH 6.5 (Normal) Range: 5.0-7.5 Specific [place] 1.007 (Normal) Range: 1.005-1.030 :43 MICROALBUMIN: CREATININE RATIO Comments: PATIENT WAS FASTINGPERFORMED BY: [employer]70 [facility] [id number] (51207) AND (83248) Microalb/Creat Ratio <11.2 {mg/g_creat} (Normal) Range: 0.0-30.0 Microalbumin, Urine <3.0 ug/mL (Normal) Creatinine, Urine 26.8 mg/dL (Normal) :43 TSH (THYROID STIMULATING Comments: PATIENT WAS FASTINGPERFORMED BY: [facility]6370 [facility] [id number] HORMONE) (60463) TSH 0.992 {uIU/mL} (Normal) Range: 0.450-4.500 :43 Metabolic Panel, Comments: PATIENT WAS FASTINGPERFORMED BY: Simple EnergyCooper University HospitalTigcbq4219 [facility] [id number] Information: HARD DRAW Comprehensive (11958) ALT (SGPT) 21 [iU]/L (Normal) Range: 0-32 [...] (Normal) Range: 65-99 :09 HgA1C , Office (98784) Comments: 6.2 HgA1C , Office 6.2 % (Normal) Range: 4.6 - 7.1 :09 Blood Glucose , Office (75063) Blood Glucose , Office 123 (Normal) :36 CBC W/Diff, Auto - EPLAB Comments: At [facility] [place] Oncologypatients receive CBC w/auto Differential ONLY. Physicianwill place an order for a manual differential or Pathologistreview at his discretion. [facility] OUTPATIENT [facility]. [address] [place] [address] [address] MIXED CROP FARMER: STEVIE COTA DO PH:[phone] Medical Center Rutuuiqvqc[address] [place], [place], [address] Absolute Lymph 2.15 {X10_3/uL} (Normal) Range: 0.83-4.51 [...] Profil Comments: Order Date: 11/03/15OV Order #: [id number] Specimen #1, #2 or #3? 1 [id number] Clinic Marymount Hospital Sfpgcnbcqs[address] [place], [place], [address] GAP 6 (Normal) Range: 5-15 CO2 31.0 [...] (Normal) Comments: Order Date: 11/03/15OV Order #: [id number] Specimen #1, #2 or #3? 1 [id number] Medical Center Ulnpnabzqd2[address] [place], [address] Range: 84-246 7-Rkd-823363:32 Uric Acid Comments: Order Date: 11/03/15OV Order #: [id number] Specimen #1, #2 or #3? 1 [id number] Medical Center Ummhhqmsnh[address] [place], [address] URIC 5.4 mg/dL (Normal) Range: 2.6-6.0 Comments: The drugs N-Acetylcysteine and Metamizole may falsely deressthis assay. 0-Zcf-045257:00 Vancomycin, Trough Level Comments: Comments: FAX REPORT TO SANDRA PENDLETONJamaal BECK [phone] [facility] Mphlialluc4[address] [place], [address] VANCO, TROUGH 14.7 ug/mL (Normal) Range: 5.0-15.0 Comments: VANCOMYCIN STANDARED DRUG THERAPY TROUGH LEVEL: 5.0 - 15.0 mg/LVANCOMYCIN HIGH INTENSITY THERAPY TROUGH LEVEL: 15.0 - 20 .0 mg/LHigh Intensity therapy recommended for serious lifethreatening infections include:- Imodtenhpg-Cyxpavrlenvd-Zuwouopis (Ventilator/Healtcare Associated)- SepsisPLEASE CONTACT PHARMACY SERVICES (#8491) FOR INTERPRETATIONOF RESULTS. 59-Ltd-508193:21 M R Staph Aureus DNA by PCR Comments: Source: NASAL SWABWexner Medical Center Xvwbvqdobb7[address] [place], [place], [address] MRSA RESULT POSITIVE (Abnormal) 69-Amf-043593:22 Aerobic Bacterial Culture Comments: send for MRSA left flank; PATIENT NOT FASTINGPERFORMED BY: [facility] Odhlhv8306 [address] [place] [id number] Information: SRC:MADDIE [id number] (54844) Result 1 MRSA (Abnormal) Comments: Methicillin - [...] report (Abnormal) Culture :03 HgA1C , Office (32473) Comments: 6.0 HgA1C , Office 6.0 % (Normal) Range: 4.6 - 7.1 :03 Blood Glucose , Office (96480) Blood Glucose , Office 120 (Normal) :01 POTASSIUM SERUM (72094) Comments: STAT; [facility] Abxysywgxg9996 [place], [place], [address] K 4.8 mmol/L (Normal) Range: 3.5-5.1 :40 Metabolic Panel, Comments: PATIENT WAS FASTINGPERFORMED BY: LabCoCooper University HospitalGciues8339 [facility] [id number] Information: [id number] Comprehensive (43549) ALT (SGPT) 21 [iU]/L (Normal) Range: 0-32 [...] (Abnormal) Range: 65-99 :40 HEPATIC FUNCTION PANEL (18046) Comments: PATIENT WAS FASTINGPERFORMED BY: [employer]70 [facility] [id number] Bilirubin, Direct 0.17 mg/dL (Normal) Range: 0.00-0.40 :40 Lipid Panel (23216) Comments: PATIENT WAS FASTINGPERFORMED BY: [employer]6370 [facility] [id number] LDL/HDL Ratio 1.6 {ratio_units} (Normal) Range: 0.0-3.2 [...] Cholesterol, Total 128 mg/dL (Normal) Range: 100-199 4-Ktm-943969:36 TSH (88011) Comments: PATIENT WAS FASTINGPERFORMED BY: [employer] Dnjpeh6543 [facility] [id number] TSH 1.320 {uIU/mL} (Normal) Range: 0.450-4.500 6-Oez-684294:36 MICROALBUMIN: CREATININE RATIO Comments: PATIENT WAS FASTINGPERFORMED BY: TapBookAuthor [facility] [id number] (40933) AND (42703) Microalb/Creat Ratio <4.6 {mg/g_creat} (Normal) Range: 0.0-30.0 Microalbumin, Urine <3.0 ug/mL (Normal) Range: 0.0-17.0 Creatinine, Urine 64.9 mg/dL (Normal) Range: 15.0-278.0 :36 LIPID PANEL (33711) Comments: PATIENT WAS FASTINGPERFORMED BY: [employer]BookAuthor [facility] [id number] Information: [id number] LDL/HDL Ratio 2.9 {ratio_units} (Normal) Range: 0.0-3.2 [...] 200 mg/dL (Abnormal) Range: 100-199 :36 CALCIFEDIOL (38391) Comments: PATIENT WAS FASTINGPERFORMED BY: [employer] Curfli2365 [facility] [id number] Vitamin D, 25-Hydroxy 35.2 ng/mL (Normal) Range: 30.0-100.0 Comments: Vitamin D deficiency has been defined by the [place] of[place]icine and an Endocrine Society practice guideline as alevel of serum 25-OH vitamin D less than 20 ng/mL (1,2).The Endocrine Society went on to further define vitamin Dinsufficiency as a level between 21 and 29 ng/mL (2).1. IOM ([place] of Medicine). 2010. Dietary reference intakes for calcium and D. [place]: The National Academies Press.2. Carlitos MF, Rene LAUREANO, Garth CARROLL, et al. Evaluation, treatment, and prevention of vitamin D deficiency: an Endocrine Society clinical practice guideline. JCEM. 2010; 96(7):1911-30. 34-Vjr-003828:16 CBC W/Diff, Auto - EPLAB Comments: At [facility] [place] Medical Oncologypatients receive CBC w/auto Differential ONLY. Physicianwill place an order for a manual differential or Pathologistreview at his discretion. [facility]. [address] [place] [address] [address] MIXED CROP FARMER: STEVIE COTA DO PH:[phone] Medical Center Poohubtcjx7[address] [place], [place], [address] Absolute Lymph 2.05 {X10_3/uL} (Normal) Range: 0.83-4.51 [...] 4.2-5.4 WBC 6.4 K/mm3 (Normal) Range: 4.4-11.0 86-Toq-653310:14 Comprehensive Metabolic Profil Comments: Serial Specimen #1, #2 or #3? [address] [place] [address] [address]ov[address]gnjf5685 [address] [place], [place], [address] GAP 8 (Normal) Range: 5-15 CO2 30.0 [...] 7-18 GLU 94 mg/dL (Normal) Range: 70-110 38-Ayl-016409:14 LDH 176 U/L (Normal) Comments: Serial Specimen #1, #2 or #3? [address] [place] [address] Mskijezrda4912 [place], [place], [address] Range: 84-246 29-Hkx-068733:14 Uric Acid Comments: Serial Specimen #1, #2 or #3? 1[facility] Hzdljmbmjo7000 [address] [place], [address] URIC 6.1 mg/dL (Abnormal) Range: 2.6-6.0 06-Ish-448221:14 Vitamin D 1,25-Dihydroxy Comments: [facility] (refer to report for specific site)refer to report for address and phone number; ordered by another doctor VITD 1,25 31707 69.0 pg/mL (Normal) Range: 19.9-79.3 Comments: Performed at: [facility] Lab[address] [id number] Director: Sascha Cedeno MD, Phone: [phone] 71-Ihc-245388:20 HgA1C , Office (37618) HgA1C , Office 6.1 % (Normal) Range: 4.6 - 7.1 89-Yzm-184220:20 Blood Glucose , Office (37610) Blood Glucose , Office 89 (Normal) 02-Ksz-408816:53 CALCIFEDIOL (63594) Comments: PATIENT WAS FASTINGPERFORMED BY: [employer] Ubfhbe9405 [facility] [id number] Vitamin D, 25-Hydroxy 23.0 ng/mL (Abnormal) Range: 30.0-100.0 Comments: Vitamin D deficiency has been defined by the [place] of[place]icine and an Endocrine Society practice guideline as alevel of serum 25-OH vitamin D less than 20 ng/mL (1,2).The Endocrine Society went on to further define vitamin Dinsufficiency as a level between 21 and 29 ng/mL (2).1. IOM ([place] of Medicine). 2010. Dietary reference intakes for calcium and D. [place]: The National Academies Press.2. Carlitos MF, Rene NC, Garth CARROLL, et al. Evaluation, treatment, and prevention of vitamin D deficiency: an Endocrine Society clinical practice guideline. JCEM. 2010; 96(7):1911-30. :53 Lipid Panel (99710) Comments: PATIENT WAS FASTINGPERFORMED BY: LabRPI ([employer]) Ukziby5629 [facility]andsAt[facility] Health [id number] Information: [id number] LDL/HDL Ratio 2.8 {ratio_units} Range: 0.0-3.2 (Normal) [...] (CHOOSE See Note (Normal) Comments: Test performed at:[facility] Qosudhifvv[address] [place] [address] :00 SITE) Comments: Patient: TISH MALAVE : 1950 (64/F) Acct Num: [id number] Phys: Scot REAGAN,Deandra Unit Num: [id number] Loc: [facility] Specimen: [id number] Received: 10/12/14 1126 Spec Type: BREAST BX TISSUES TISSUES: COMMENT Please see previous specimen ([id number]) left breast tissue, stereotactic core biopsy with diagnosis of ductal carcinoma in situ. GROSS DESCRIPTION Received is one container labeled with the patient name and designated left breast. The specimen consists of multiple elongated fragments of martinez-yellow fibroadipose tissue measuring in aggregate 2.5 x 0.5 x 0.1 cm. The specimen is totally submitted in one cassette. / MARISSA:laura 10/12/14 TC:3 CPT: 32535 HEADER OPERATION: U/S guided left breast biopsy [...] Signed Shayan Ching 10/13/14 <signature on file> 0-Hma-334733:16 Comprehensive Metabolic Profil Comments: Serial Specimen #1, #2 or #3? 1Test performed at:[facility] Nkiofzqjxj0555 [facility] [place] [address] GAP 6 (Normal) Range: 5-15 [...] 7-18 GLU 97 mg/dL (Normal) Range: 70-110 6-Lww-001311:16 LDH 189 U/L (Normal) Comments: Serial Specimen #1, #2 or #3? 1Test performed at:[facility] Cpjthqfbek6183 [facility] [place] [address] Range: 87-241 5-Iwu-154601:16 Uric Acid Comments: Serial Specimen #1, #2 or #3? 1Test performed at:[facility] Kxlbxkvcan[address] [place] [address] URIC 5.5 mg/dL (Normal) Range: 2.6-6.0 5-Ivm-398605:05 CBC W/Diff, Auto - EPLAB Only Comments: At [facility] [place] Medical Oncologypatients receive CBC w/auto Differential ONLY. Physicianwill place an order for a manual differential or Pathologistreview at his discretion. [facility] OUTPATIENT [facility]. [address] [place] [address] [address] MIXED CROP FARMER: STEVIE COTA DO PH:[phone] performed at:[facility] Laborato zz[address] [place], [place] [address] Absolute Neut 2.7 {X10_3/uL} (Normal) Range: 2.0-7.7 [...] 4.4-11.0 :00 Culture, Wound Comments: Test performed at:[facility] Qtywearnlg4082 [place] [address] CUW See Note (Normal) Comments: Comments: RIGHT [...] 1 S(NF) in dicates non-formulary drug at [facility]. Approval by Infectious Disease Specialist required before non-formulary drugs may be ordered and/or dispensed. * CLSI guidelines does not recommend testing of cephalosporins. This interpretation is deduced from Beta-lactam/penicillin results. 37-Bvf-955775:16 Anaerobic & Aerobic Comments: R leg; PATIENT NOT FASTINGPERFORMED BY: [facility]6370 [facility] [id number] Information: SRC:WND [id number] RIGHT LEG Culture (33737) Result 1 MRSA (Abnormal) Comments: Methicillin - [...] mmol/L (Normal) Range: 3.5-5.1 :12 :13 CALCIFEDIOL (99932) Comments: PATIENT NOT FASTINGPERFORMED BY: LabCoCooper University HospitalWhywdn3069 [facility] [id number] Information: [id number] Vitamin D, 25-Hydroxy 23.8 ng/mL (Abnormal) Range: 30.0-100.0 Comments: Vitamin D deficiency has been defined by the [place] of[place]icine and an Endocrine Society practice guideline as alevel of serum 25-OH vitamin D less than 20 ng/mL (1,2).The Endocrine Society went on to further define vitamin Dinsufficiency as a level between 21 and 29 ng/mL (2).1. IOM ([place] of Medicine). 2010. Dietary reference intakes for calcium and D. [place]: The National Academies Press.2. Carlitos MF, Rene NC, Garth CARROLL, et al. Evaluation, treatment, and prevention of vitamin D deficiency: an Endocrine Society clinical practice guideline. JCEM. 2010; 96(7):1911-30. 44-Pix-791443:04 CBC, Platelets & Auto Comments: pls send copy to Dr epperson; Test(s) Potassium, Serum called to Dr Felix on 12/21/2013 at 23:26 ESTPATIENT NOT FASTINGPERFORMED BY: LabCoCooper University HospitalDtpfdx1072 [facility] [id number] Information: [id number] Diff (72010) Immature Grans (Abs) 0.0 {x10E3/uL} (Normal) Range: [...] 3.77-5.28 WBC 5.2 {x10E3/uL} (Normal) Range: 3.4-10.8 70-Oeb-743316:04 Metabolic Panel, Comprehensive Comments: pls send copy to dr epperson; Test(s) Potassium, Serum called to Dr Felix on 12/21/2013 at 23:26 ESTPATIENT NOT FASTINGPERFORMED BY: LabCoCooper University HospitalChowtr5407 [facility] [id number] (18601) ALT (SGPT) 15 [iU]/L (Normal) Range: 0-32 [...] Glucose, Serum 79 mg/dL (Normal) Range: 65-99 98-Hwg-965320:04 HEPATIC FUNCTION PANEL Comments: pls send copy to Dr Epperson; Test(s) Potassium, Serum called to Dr Felix on 12/21/2013 at 23:26 ESTPATIENT NOT FASTINGPERFORMED BY: LabCoCooper University HospitalGxjjne2192 [facility] [id number] (50612) Bilirubin, Direct 0.09 mg/dL (Normal) Range: 0.00-0.40 43-Jig-22641:55 CMP Comments: Serial Specimen #1, #2 or [...] (Normal) Range: 70-110 :55 ECBCD Comments: At [facility], Dr Lang patients receiveCBC w/auto Differential ONLY. He will place an order for amanual differential or Pathologist review at his discretion.[facility].[address] [place], [place] [address]PUJ DIRECTOR: STEVIE COTA DO PH:[phone] ANC 5.3 {X10_3/uL} (Normal) Range: 2.0-7.7 B% [...] Comments: pls also fax to Dr epperson- [phone]; PATIENT NOT FASTINGPERFORMED BY: JJ [facility] Ffafaa1291 Girish ChildsAtrium Health [id number] Information: [id number] CC:[id number] (55948) Immature Grans (Abs) 0.0 {x10E3/uL} (Normal) Range: [...] pls also fax results to Dr epperson- [phone]; PATIENT NOT FASTINGPERFORMED BY: [employer] [id number] [facility] [id number] ([id number]) ALT (SGPT) 17 [iU]/L (Normal) Range: 0-32 [...] (THYROID STIMULATING Comments: PATIENT NOT FASTINGPERFORMED BY: Simple EnergyCooper University HospitalKtcpqq7691 [facility] [id number] HORMONE) ([id number]) TSH 1.350 {uIU/mL} (Normal) Range: 0.450-4.500 :46 CALCIFEDIOL (00265) Comments: PATIENT NOT FASTINGPERFORMED BY: [employer] Gshiyt1067 [facility] [id number] Vitamin D, 25-Hydroxy 30.9 ng/mL (Normal) Range: 30.0-100.0 Comments: Vitamin D deficiency has been defined by the [place] [employer] and an Endocrine Society practice guideline as alevel of serum 25-OH vitamin D less than 20 ng/mL (1,2).The Endocrine Society went on to further define vitamin Dinsufficiency as a level between 21 and 29 ng/mL (2).1. IOM ([place] [employer]). 2010. Dietary reference intakes for calcium and D. [place]: The National Academies Press.2. Carlitos MF, Rene LAUREANO, Garth CARROLL, et al. Evaluation, treatment, and prevention of vitamin D deficiency: an Endocrine Society clinical practice guideline. JCEM. 2010; 96(7):1911-30. 69-Xkc-904454:28 HgA1C , Office (99722) HgA1C , Office 5.3 % (Normal) Range: 4.6 - 7.1 78-Dpw-956788:36 Renal function Panel Comments: PATIENT NOT FASTINGPERFORMED BY: [employer] Sewrmr1968 [facility] [id number] Information: ADD [id number] AND DRAW FEE 99 1361 (73281) Albumin, Serum 4.2 g/dL (Normal) Range: 3.6-4.8 [...] Glucose, Serum 114 mg/dL (Abnormal) Range: 65-99 68-Uiv-572830:36 CALCIFEDIOL (18314) Comments: PATIENT NOT FASTINGPERFORMED BY: [facility] EnergyCooper University HospitalVgiqil1121 [facility] [id number] Vitamin D, 25-Hydroxy 29.9 ng/mL (Abnormal) Range: 30.0-100.0 Comments: Vitamin D deficiency has been defined by the [place] [employer] and an Endocrine Society practice guideline as alevel of serum 25-OH vitamin D less than 20 ng/mL (1,2).The Endocrine Society went on to further define vitamin Dinsufficiency as a level between 21 and 29 ng/mL (2).1. IOM ([place] [employer]). 2010. Dietary reference intakes for calcium and D. [place]: The National Academies Press.2. Carlitos MF, Rene LAUREANO, Garth CARROLL, et al. Evaluation, treatment, and prevention of vitamin D deficiency: an Endocrine Society clinical practice guideline. JCEM. 2010; 96(7):1911-30. 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 Indication: Smoking addiction Hypertension, benign : [...] appt for this saturday am with [facility] Indication: COPD (chronic obstructive pulmonary disease) Knee pain, right : Follow up in 1 month with [facility] for Gen Med Indication: Knee pain, right Knee pain, right : Follow up if no improvement or if symptoms worsen Indication: Knee pain, right Knee pain, right : Reviewed Drill Foreman Letter Indication: Knee pain, right Knee pain, [...] (antinuclear antibody) Planned Observations MICROALBUMIN: CREATININE RATIO ([id number]) AND (15665)Indication: SOB (shortness of breath) On: 06-Sep-20179:47 Request TSH ([id number])Indication: SOB (shortness of breath) On: 06-Sep-20179:47 Request FABIAN CULTURE-BLOOD ([id number])Indication: Elevated WBC count On: 1-Uks-375786:29 Request FABIAN CULTURE-BLOOD ([id number])Indication: Elevated WBC count On: 6-Hkh-278064:29 Request MRSA Culture ([id number])Indication: Cellulitis of trunk, unspecified site of trunk On: 37-Hhf-786806:04 Request Comments: nose HgA1C , Office ([id number])Indication: Prediabetes On: 6-Gna-124722:02 Request MRSA Culture ([id number])Indication: Cellulitis On: 74-Hrx-08227:40 Request FABIAN CULTURE-OTHER ([id number])Indication: Cellulitis On: 02-Eje-46775:39 Request POTASSIUM SERUM ([id number])Indication: Hyperkalemia On: 78-Uaf-87850:14 Request Comments: pls call results to [phone] Planned Encounters Medical; 2 Month FU - On: 14-Apr-2018 9:30 [facility] Sandra Degroot CNP, CNP Pili Planned Procedures Flu Vaccine (Quadrivalent) [id number]: On: 25-Dec-2017 Intent Sandra Degroot CNP, CNP Pili PHYSICAL THERAPY ([id number])By: Gabriele, On: 17-Dec-2017 Intent [facility] - Knee - RightBy: Gabriele On: 17-Dec-[address] THORAX W CONTRAST ([id number])By: On: 11-Oct-2017 Intent Sandra Degroot CNP, CNP Pili Comments: new rt lower 4.5mm lung nodule ordered by Dr. Brittney shrestha in October of 2016 CT chest without contrast PET-CT ENTIRE BODY ([id number])By: Zane On: 24-Sep-2017 Intent Sandra ZAVALA CNP Pili CONTINUOUS OVERNIGHT PULSE OXIMETRY On: 06-Sep-2017 Intent ([id number])By: Sandra Degroot CNP, CNP Pili CT - Chest (IV Contrast Needed)By: On: 06-Sep-2017 Intent Sandra Degroot CNP, CNP Pili CONTINUOUS OVERNIGHT PULSE OXIMETRY On: 06-Sep-2017 Intent ([id number])By: Sandra Degroot CNP, CNP, Mary E Spirometry ([id number])By: Zane ZAVALA, On: 06-Sep-2017 Intent Sandra Muhammad CNP Six Minute Walk Assessment On: 06-Sep-2017 Intent ([id number])By: Sandra Degroot CNP, CNP Pili Flu Vaccine (Quadrivalent) [id number]: On: 01-Jan-2017 Intent Nai Trevizo LPN Comments: InfluenzaLot #[id number]-09/23/18Site-R dltd, IMDose prefilled syringeVIS and ABN signedgiven by:ROSA gallardo Spirometry ([id number])By: Zane ZAVALA, On: 04-Sep-2016 Intent Sandra Degroot EMBEDDED PROCESSOR, Sandra Lockwood Comments: severe airway obstruction with low vital capacity Aerosol Treatment ([id number])By: Zane On: 04-Sep-2016 Intent Sandra ZAVALA Zane ZAVALA Sandra Lockwood Aerosol Treatment ([id number])By: Zane On: 11-Jul-2016 Intent SALLY Sandra Lockwood Zane ZAVALA Pili Radiology - ChestBy: Zane ZAVALASanrda On: 09-Jul-2016 Intent Mandie Zane ZAVALASandra Aerosol Treatment ([id number])By: Zane On: 09-Jul-2016 Intent Sandra ZAVALA Zane ZAVALA Sandra Lockwood Flu Vaccine (Quadrivalent) [id number]: On: 07-Feb-2016 Intent Zane ZAVALA Sandra Lockwood Zane ZAVALA Pili Comments: Lot:[id number]:10/05/16Dose:0.5mLRoute:IMSite:r DltdGiven By:Emely signed Rocephin Injection, 2 Gram On: 06-Sep-2015 Intent ([id number])By: Zane ZAVALA PiliMandie Degroot CNP Pili Ultrasound - Abdomen CompleteBy: On: 13-May-2015 Intent Zane ZAVALA PiliMandie Degroot CNP Pili Venous Doppler - RightBy: Zane ZAVALA, On: 13-May-2015 Intent PiliMandie Degroot CNP Pili PHYSICAL THERAPY EVALUATION On: 14-Jul-2014 Intent ([id number])By: Sandra Degroot CNP, CNP Pili Radiology - Knee - RightBy: Zane On: 14-Jul-2014 Intent SALLY Sandra Lockwood Zane ZAVALA Pili IV Needle placement ([id number])By: On: 24-Feb-2014 Intent Zane ZAVALA PiliMandie Degroot CNP Pili Comments: 22G insyte initiated in R medial wrist, no s/s infiltration, redness, swelling, dsg dry intact, infusing on gravity pole at 48gtts/min- catheter removed intact, tolerated well- 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 Rocephin Injection, 2 Gram On: 24-Feb-2014 Intent ([id number])By: Sandra Degroot CNP Comments: lot # [id number]- 09/06/16site-R medial wrist route-IVdose- 2GCTyler Sandra LEE CNP ELECTROCARDIOGRAM, COMPLETE (ECG) On: 22-Dec-2013 Intent (08514)By: Sandra Degroot CNP, CNP, Mary E FLU VAC, SPLIT, >3 YEARS, INTRAMUSC On: 30-Dec-2012 Intent (86011)By: Leslie Roberts LPN Comments: Lot:[id number]:Dose:0.5mLRoute:IMSite:L DltdGiven By:DELILAH signed IMMUNIZ ADMNIN, 1 VAC, SNGL/COMBO On: 30-Dec-2012 Intent (96466)By: Leslie Roberts LPN Planned Medications INJECTION, CEFTRIAXONE [...] benign : DISCONTINUED - METABOLIC PANEL, COMPREHENSIVE ([id number]) Indication: Hypertension, benign Hypertension, benign : DISCONTINUED - CBC with auto diff (58305) Indication: Hypertension, benign Hyperglycemia : How to [...] Advance Directives Name Dates Details Immunization Registry [place] - Effective on Effective: 01-Jan-201801/01/2018. Expiration date [...] patient does not have durable power of tax attorney or 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 Dr. Ahumada neurology. )., [ADDITIONAL REASON] Follow [...]
--- OUTSIDE RECORDS SUMMARY | 2018-07-02 03:42 | XMS RPT_ITS ---
:1950 Author Organization OHIP Support Name Relationship Address Phone R Unavailable Unavailable Unavailable JESSICA HULL Unavailable [address] + [place] [address] STEVO MOBLEY Unavailable Unavailable + [place] [address] R Unavailable Unavailable Unavailable JESSICA HULL Unavailable [address] + [place] [address] STEVO MOBLEY Unavailable Unavailable + [place] [address] R Unavailable Unavailable Unavailable JESSICA HULL Unavailable [address] + [place] [address] STEVO MOBLEY Unavailable Unavailable + R Unavailable Unavailable Unavailable JESSICA HULL Unavailable [address] + [place] [address] R Unavailable Unavailable Unavailable JESSICA HULL Unavailable [address] + [place] [address] R Unavailable Unavailable Unavailable JESSICA HULL Unavailable [address] + [place] [address] R Unavailable Unavailable Unavailable JESSICA HULL Unavailable [address] + [place] [address] R Unavailable Unavailable Unavailable JESSICA HULL Unavailable [address] + [place] [address] R Unavailable Unavailable Unavailable JESSICA HULL Unavailable [address] + [place] [address] R Unavailable Unavailable Unavailable JESSICA HULL Unavailable [address] + [place] [address] Care Team Providers Name Role Phone Sandra Degroot Attending Unavailable Sandra Degroot Referring Unavailable Sandra Degroot Consulting Unavailable Guido Hogue Attending Unavailable Guido Hogue Referring Unavailable Sandra Degroot Primary Care Unavailable Guido Hogue Attending Unavailable Deandra Ellison Referring Unavailable Sandra Degroot Primary Care Unavailable Emelina, Maeve Consulting Unavailable Emelina, Maeve Attending Unavailable Sandra Degroot Primary Care Unavailable Deandra Ellison Referring Unavailable Guido Hogue Attending Unavailable Ellison, Deandra Referring Unavailable MireyaesaSandra Primary Care Unavailable Emelina, Maeve Consulting Unavailable Cilevi Sandra Attending Unavailable CiSandra sims Referring Unavailable Sandra Degroot Primary Care Unavailable Ciespadmaja Sandra Attending Unavailable CiesSandra giang Primary Care Unavailable Guido Hogue Attending Unavailable CiesaSandra Primary Care Unavailable Praabel, Guido Referring Unavailable Lynda Suazo AGRICULTURAL CHEMICALS INSPECTOR-C Attending Unavailable Lynda Suazo AGRICULTURAL CHEMICALS INSPECTOR-C Referring Unavailable Sandra Degroot Primary Care Unavailable Mykel, Guido Attending Unavailable Ellison Deandra Referring Unavailable CiesSandra giang Primary Care Unavailable Emelina, Maeve Consulting Unavailable Guido Hogue Attending Unavailable Praabel, Guido Referring Unavailable Sandra Degroot Primary Care Unavailable PROBLEMS PROBLEMS DATE TYPE CONDITION / CODE ATTENDING STATUS SOURCE 04/30/2018 Unknown Z79.01 - group home Mykel Guido Active [place] (current) use of Community anticoagulants / Hospital Z79.01(ICD-10) Repository 05/01/2018 Unknown R91.1 - Solitary RuthGuido roman Active [place] pulmonary nodule / Community R91.1(ICD-10) Hospital Repository 05/01/2018 Unknown Z85.3 - Personal MykelGuido Active [place] history of malignant Community neoplasm of breast / Hospital Z85.3(ICD-10) Repository 05/01/2018 Unknown C50.911 - Malignant Mykel Guido Active [place] neoplasm of Community unspecified site of Hospital right female breast Repository / C50.911(ICD-10) 05/01/2018 Unknown Z01.818 - Encounter Ruthabel Guido Active [place] for other Community preprocedural Hospital examination / Repository Z01.818(ICD-10) 01/23/2018 Unknown C50.119 - Malignant Mykel, Guido Active [place] neoplasm of central Community portion of Hospital unspecified female Repository breast / C50.119(ICD-10) 01/02/2018 Unknown Z12.31 - Encounter Guido Hogue Active [place] for screening Community mammogram for Hospital malignant neoplasm Repository of breast / Z12.31(ICD-10) 07/17/2017 Unknown Z79.899 - Other long Ruthabel Guido Active [place] term (current) drug Community therapy / Hospital Z79.899(ICD-10) Repository PROCEDURES PROCEDURES No Procedure Records FoundRESULTS RESULTS ONCOLOGY VISIT REPORT Observed: 05/01/2018 Status: F Source: [place] 2:40 PM [facility] REPOSITORY [facility] [address] [address] OFFICE VISIT Date of Service: 04/24/18 1410 MR#: [id number] Acct: [id number] Name: TISH HULL Rep #: [id number] : 1950 From: Guido Hogue MD Age/Sex: 67/F Location: OMD Status: Signed Subjective - Date of Service Date of Service:: 04/24/18 - Chief Complaint F/u for Left Breast cancer. - History of Present Illness Ms. Tish Hull is a 67-year-old woman with a past medical history positive for hypertension, COPD, inflammatory arthritis and Parkinson's disease who underwent a routine mammogram on 09/23/2012. A grouping of calcifications in the upper left breast near the 12 o'clock position was identified. A stereotactic core biopsy of one of those areas returned positive for ductal carcinoma in situ with focal area of microinvasive carcinoma. Subsequently she underwent a left breast lumpectomy and sentinel lymph node biopsy under the care of Dr. Deandra Ellison on 11/12/2012. 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 The tumor measured 0.4 cm and 3/3 lymph nodes were negative for metastatic disease and surgical margins were uninvolved. Biology proved ER positive (95%) IA positive (5%) and HER2- griffin nonamplified by FISH. She completed 28 fractions of radiation therapy to the left breast with an additional 8 fractions to scar from 12/23/2012 through 02/21/2013 under the care of Dr. Clarke. She began anastrozole 02/23/2013. Baseline DEXA scan is normal. However, scan in 10/2014 revealed osteopenia. She received Prolia from 10/28/2014 to 11/06/2016. CT chest on 08/09/2017 showed bilateral lung nodules. She had CT on 2017 which showed increase in RML nodule, PET/CT on 10/07/2017 showed no hypermetabolic activity. Finished adjuvant Anastrozole in February 2018. Had CT chest in February 2018 and comes for follow up. - Past Medical/Social History Past Medical History Past Medical History: Arthritis,Asthma,COPD,Hypertension,Lupus, Osteopenia Other Past Medical History: MIXED CONNECTIVE TISSUE DISEASE INFLAMATORY POLYARTHROPATHY PARKINSON'S Cancer: Breast cancer Past Surgical History Surgical: Cholecystectomy,Lumpectomy,Tubal ligation Other Surgical History: REMOVAL OF STOMACH TUMOR R ANKLE FRACTURE REPAIR X 2 Family History Paternal Past Medical History: Heart disease,Hyperlipidemia Maternal Past Medical History: Alzheimer's disease,Anemia,Hypertension,Thyroid disease Social History Smoking Status Current every day smoker Review of Systems Constitutional:: Denies: Fever, Sweats, Weight loss, Appetite change, Chills Cardiovascular:: Denies: Chest pain, Palpitations, Dyspnea on exertion, Orthopnea, PND, Shortness of breath Respiratory: Denies: Cough, Hemoptysis, Shortness of Breath, Wheezing Gastrointestinal:: Denies: Abdominal pain, Nausea, Vomiting, Diarrhea, Constipation, Hematochezia Genitourinary: Denies: Dysuria, Hematuria, 15, Flank pain Musculoskeletal:: Denies: Back pain, Myalgia, Arthralgia Skin: Denies: Rash, Skin Changes, Wounds Neurological:: Denies: Headache, Dizziness, Visual changes, Tinnitus, Hearing loss Psychiatric: Denies: Anxiety, Depression, Homicidal Ideations, Suicidal Ideations Vital Signs Height 5 ft 3 in Weight: 106.141 kg Weight in Pounds 234.0 lbs Pulse Ox 94 - Physical Exam General: Alert, Oriented x3, No apparent distress HEENT: Atraumatic, PERRLA, EOMI, Normocephalic Oropharynx:: Dry mucosa Neck:: Supple, Trachea midline. Negative for: JVD, bilateral Cardiac:: Regular rate, Regular rhythm, Normal S1, Normal S2. Negative for: Murmur Lungs: Clear to auscultation, Excusion symmetrical. Negative for: Rhonchi, Wheezes Lymphatics:: Negative for: Cervical lymphadenopathy, Supraclavicular lymphadenopathy, Axillary lymphadenopathy Diagnostic Data: 02/12/[address]/Chest without Contrast IMPRESSION: Continued increase in the size of a noncalcified right middle lobe lung nodule. No evidence of malignancy on recent PET CT scan. Recommend pulmonary consult. Emphysematous changes. Coronary artery calcifications. Electronically Signed: Dayday Jurado MD at 2:50 EST Assessment and Plan Left breast cancer stage I, finished adjuvant Anastrozole in February 2018. Lung nodules, no activity on PET/CT. The one in RML increasing in size. Discussed differential diagnosis and need for biopsy, Pt agreed to proceed. Plan is to obtain CT guided biopsy. RTC 1 month. Medications: Prescriptions This Visit Medication Instructions Recorded Glycopyrrolate/Formoterol Fum 10.7 gm IH DAILY PRN 11/06/16 [Bevespi Aerosphere Inhaler] Propranolol HCl 40 mg PO BID 01/23/18 Primary Care Provider: Sandra Degroot Referring Provider: Deandra Ellison - Problem List (1) Pulmonary nodules/lesions, multiple Status: Chronic (2) History of left breast cancer Status: Chronic Code Visit Office Visits / Consults: 10420 OV L4 Est 05/01/18 1440 <Electronically signed by Guido Hogue MD> Date Guido Hogue MD Cosign Signature: Date (if applicable) CC: CHEST INSP/EXP 2 VIEW Observed: 04/30/2018 Status: F Source: [place] 10:02 AM [facility] REPOSITORY [facility] Imaging Services [address] [place] [address] Chest Insp/Exp 2 View MR#: [id number] Acct: [id number] Name: TISH HULL Rep #: [id number] : 1950 F 67 From: Xu Adams MD PCP: Sandra Degroot NP Status: REG CLI Study: Chest Insp/Exp 2 View Date of Exam: 04/30/18 Exam# [id number] Ordering Dr: Guido Hogue MD STUDY: X-RAY CHEST REASON FOR EXAM: Female, 67 years old. 2 hour postright lung biopsy radiograph. TECHNIQUE: AP inspiration and expiration views. COMPARISON: Comparison is made with prior study done earlier in the day. FINDINGS: There is no evidence of pneumothorax on the 2 hour post right lung biopsy radiograph. RAD/Chest Insp/Exp 2 View IMPRESSION: No evidence of pneumothorax. The patient is asymptomatic. Electronically Signed: Xu Adams MD at 13:07 EST , Service support , CC: Sandra Degroot NP; Guido Hogue MD Real Estate Photographer: Signed CHEST INSP/EXP 2 VIEW Observed: 04/30/2018 Status: F Source: [place] 10:01 AM [facility] REPOSITORY [facility] Services [address] [place] [address] Chest Insp/Exp 2 View MR#: [id number] Acct: [id number] Name: TISH HULL Rep #: [id number] : 1950 F 67 From: Xu Adams MD PCP: Sandra Degroot NP Status: REG CLI Study: Chest Insp/Exp 2 View Date of Exam: 04/30/18 Exam# [id number] Ordering Dr: Guido Hogue MD STUDY: X-RAY CHEST REASON FOR EXAM: Female, 67 years old. Immediate postright lung biopsy radiograph. TECHNIQUE: AP inspiration and expiration views. COMPARISON: Comparison is made with prior study dated July 09, 2016. FINDINGS: There is no evidence of pneumothorax on the immediate post right lung biopsy radiographs. Nodular density is seen in the right midlung. Hyperinflation. RAD/Chest Insp/Exp 2 View IMPRESSION: No evidence of pneumothorax on the immediate post right lung biopsy radiographs. Electronically Signed: Xu Adams, at 11:26 EST , Service support , CC: Sandra Degroot AGRICULTURAL CHEMICALS INSPECTOR; Guido Hogue MD Real Estate Photographer: Signed PROTHROMBIN TIME W/INR Collected: 04/30/2018 Status: F Source: [place] 8:40 AM [facility] REPOSITORY Order Comment: Comments: If not completed within the last 30 days TYPE CODE TESTS RESULT OUT OF RANGE REFERENCE UNITS LAB L300.4150 11.7-14.9 SECONDS Normal PROTIME 12.9 LAB L300.4200 Normal INR 1.0 Performed By: #### L300.3900, L300.4310 #### [facility] [address] [place], [place], [id number] PARTIAL THROMBOPLAST Collected: 04/30/2018 Status: F Source: [place] TIME 8:40 AM [facility] REPOSITORY Order Comment: Comments: If not completed within the last 30 days TYPE CODE TESTS RESULT OUT OF RANGE REFERENCE UNITS LAB L300.4310 24.1-36.2 Seconds Normal PTT 27.5 Performed By: #### L300.3900, L300.4310 #### [facility] [address] [place], [place], [address] CBC W/DIFF, AUTOMATED Collected: 04/30/2018 Status: F Source: [place] 8:39 AM [facility] REPOSITORY Order Comment: Comments: If not completed within the last 30 days Reason for Laboratory Test . TYPE CODE TESTS RESULT OUT OF RANGE REFERENCE UNITS LAB L100.1000 4.4-11.0 K/mm3 Normal WBC 7.4 LAB L100.1200 4.2-5.4 M/mm3 Normal RBC 4.54 LAB L100.1300 12.0-15.0 g/dl Normal HGB 14.9 LAB L100.1400 37-47 % Normal HCT 44.3 LAB L100.1500 81-99 fL Normal MCV 97.6 LAB L100.1600 27.0-32.0 pg High MCH 32.8 LAB L100.1700 32-36 g/gl Normal MCHC 33.6 LAB L100.1810 11.6-14.6 % Normal RDW CV 12.9 LAB L100.1820 35.1-43.9 fl High RDW SD 45.8 LAB L100.1900 150-450 K/mm3 Normal PLT 300 LAB L100.2000 6.2-12.0 fl Normal MPV 9.1 LAB L100.2100 47-70 % Normal NEUT% 58.5 LAB L100.2200 19-41 % Normal LY% 26.3 LAB L100.2300 0-10 % Normal MONO% 9.4 LAB L100.2400 0-5 % High EO% 5.3 LAB L100.2500 0-1 % Normal BASO% 0.5 LAB L100.2550 0.0-0.9 % Normal IM GRAN % 0.000 Result Comment: IG% - Immature Granulocytes (promyelocytes, myelocytes and metamyelocytes) > 1% indicates that a LEFT SHIFT is Present. LAB L100.2620 2.0-7.7 X10 3/uL Normal Absolute Neut 4.3 LAB L100.2720 0.83-4.51 X10 3/ul Normal Absolute Lymph 1.94 Performed By: #### L100.0100 #### [facility] [address] [place], [address] BIOPSY/INJ OR NEEDLE Observed: 04/30/2018 Status: F Source: [place] PLACEMENT 8:35 AM [facility] REPOSITORY [facility] Imaging Services [address] [place] [address] Biopsy/Inj or Needle Placement MR#: [id number] Acct: [id number] Name: TISH HULL Rep #: [id number] : 1950 F 67 From: Xu Adams MD PCP: aSndra Degroot NP Status: REG CLI Study: Biopsy/Inj or Needle Placement Date of Exam: 04/30/18 Exam# [id number] Ordering Dr: Guido Hogue MD PROCEDURE: CT GUIDED CORE NEEDLE BIOPSY OF A right upper lobe LUNG LESION INDICATION: Female, 67 years old. Right upper lobe lung nodule. History of breast cancer. PHYSICIAN: Dr. Adams. CONSENT: Written informed consent was obtained having explained the risks, benefits and alternatives in detail with the patient who accepted the risks and agreed to proceed. Laboratory review and clinical assessment was performed. CONSCIOUS SEDATION PROTOCOL: The Drugs used were: 2 mg Versed, IV., and 50 mcg Fentanyl, IV. The sedation time was: 27 minutes. Conscious sedation was started at 9:39 AM and terminated at 10:06 AM The conscious sedation protocol was independently monitored. RADIATION DOSAGE (If Supplied By Facility): CTDIvol = ( 16.67 ) mGy, DLP = ( 550.68 ) mGycm Individualized dose optimization techniques were used for this CT. TECHNIQUE: The patient was placed in the supine position. A noncontrast CT was performed to localize the lesion in the right upper lobe . The skin surface was prepped and draped in a sterile fashion. 1% lidocaine was used for local anesthesia. Using CT guidance, a 19-gauge coaxial biopsy device was advanced to the periphery of the lesion. A total of 3 core specimens were obtained. The specimens were placed in a formalin solution. A post procedure CT demonstrated no adverse sequelae or pneumothorax. The patient tolerated the procedure well without adverse event. A negative biopsy does not exclude malignancy. Further imaging or clinical followup based on patient condition and degree of clinical suspicion for malignancy. Suggest rebiopsy, if biopsy results do not match with clinical scenario. CT/Biopsy/Inj or Needle Placement IMPRESSION: 1. CT directed core needle biopsy of the right upper lobe lung nodule using CT image guidance with image documentation as described. Pathology results are pending. 2. Conscious Sedation protocol utilized with independent monitoring. Electronically Signed: Xu Adams MD at 13:25 EST , Service support , CC: Sandra Degroot AGRICULTURAL CHEMICALS INSPECTOR; Guido Hogue MD Real Estate Photographer: Signed CHEST WITHOUT Observed: 02/12/2018 Status: F Source: [place] CONTRAST 7:10 AM [facility] REPOSITORY [facility] Imaging Services [address] [address] Chest without Contrast MR#: [id number] Acct: [id number] Name: TISH HULL Rep #: [id number] : 1950 F 67 From: Dayday Jurado PCP: Sandra Degroot NP Status: REG CLI Study: Chest without Contrast Date of Exam: 02/12/18 Exam# [id number] Ordering Dr: Guido Hogue MD STUDY: CT CHEST WITHOUT CONTRAST REASON FOR EXAM: Female, 67 years [...] were used for this CT. COMPARISON: CT chest August 09, 2016. CT chest September 23, 2017. CT chest December 16, 2012. PET CT scan October 07, 2017. FINDINGS: Noncalcified mildly lobulated right middle lobe lung nodule measuring 1.5 x 1.3 [...] pericardial effusion. Scattered subcentimeter mediastinal lymph nodes which are not pathologic by size criteria. Normal [...] changes. Coronary artery calcifications. Electronically Signed: Dayday Jurado MD at 2:50 EST , Service support , CC: Sandra Degroot AGRICULTURAL CHEMICALS INSPECTOR; Guido Hogue MD Real Estate Photographer: Signed ONCOLOGY VISIT REPORT Observed: 01/23/2018 Status: F Source: [place] 4:20 PM [facility] REPOSITORY [place] [facility] [address] [place] [address] OFFICE VISIT Date of Service: 01/23/18 1611 MR#: [id number] Acct: [id number] Name: TISH HULL Rep #: [id number] : 1950 From: Guido Hogue MD Age/Sex: [...] routine mammogram on 09/23/2012. A grouping of calcifications in the upper left breast near the 12 o'clock position was identified. A stereotactic core biopsy of one of those areas returned positive for ductal carcinoma in situ with focal area of microinvasive carcinoma. Subsequently she underwent a left breast lumpectomy and sentinel lymph node biopsy under the care of Dr. Deandra Ellison on 11/12/2012. 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 The tumor measured 0.4 cm and 3/3 lymph nodes were negative for metastatic disease and surgical margins were uninvolved. Biology proved ER positive (95%) IA positive (5%) and HER2- griffin nonamplified by FISH. She completed 28 fractions of radiation therapy to the left breast with an additional 8 fractions to scar from 12/23/2012 through 02/21/2013 under the care of Dr. Clarke. She began anastrozole 02/23/2013. Baseline DEXA scan is normal. However, scan in 10/2014 revealed osteopenia. She received Prolia from 10/28/2014 to 11/06/2016. CT chest on 08/09/2017 showed bilateral lung nodules. She remains on Anastrozole, comes in for follow up. She had CT on 2017 which showed increase in RML nodule, PET/CT on 10/07/2017 showed no hypermetabolic activity. - Past Medical/Social History Past Medical History Past Medical History: Arthritis,Asthma,COPD,Hypertension,Lupus, Osteopenia Other Past Medical History: MIXED CONNECTIVE TISSUE DISEASE INFLAMATORY POLYARTHROPATHY PARKINSON'S Cancer: Breast cancer Past Surgical History Surgical: Cholecystectomy,Lumpectomy,Tubal ligation Other Surgical History: REMOVAL OF STOMACH TUMOR R ANKLE FRACTURE REPAIR X 2 Family History Paternal Past Medical History: Heart disease,Hyperlipidemia Maternal Past Medical History: Alzheimer's disease,Anemia,Hypertension,Thyroid disease Social History Smoking Status Current every day smoker Review of Systems Constitutional:: Denies: Fever, Sweats, Weight loss, Appetite change, Chills Cardiovascular:: Denies: Chest pain, Palpitations, Dyspnea on exertion, Orthopnea, PND, Shortness of breath Respiratory: Denies: Cough, Hemoptysis, Shortness of Breath, Wheezing Gastrointestinal:: Denies: Abdominal pain, Nausea, Vomiting, Diarrhea, Constipation, Hematochezia Genitourinary: Denies: Dysuria, Hematuria, 15, Flank pain Musculoskeletal:: Denies: Back pain, Myalgia, Arthralgia Skin: Denies: Rash, Skin Changes, Wounds Neurological:: Denies: Headache, Dizziness, Visual changes, Tinnitus, Hearing loss Psychiatric: Denies: Anxiety, Depression, Homicidal Ideations, Suicidal Ideations Vital Signs Height 5 ft 3 in Weight: 107.501 kg Weight in Pounds 237.0 lbs Pulse Ox 98 - Physical Exam General: Alert, Oriented x3, No apparent distress HEENT: Atraumatic, PERRLA, EOMI, Normocephalic Oropharynx:: Dry mucosa Neck:: Supple, Trachea midline. Negative for: JVD, bilateral Cardiac:: Regular rate, Regular rhythm, Normal S1, Normal S2. Negative for: Murmur Lungs: Clear to auscultation, Excusion symmetrical. Negative for: Rhonchi, Wheezes Abdomen:: Bowel sounds x 4, Soft, Non-tender, Non-distended. Negative for: Hepatosplenomegaly Extremities:: Negative for: Cyanosis, Edema Neurological: Neuro grossly intact Skin:: Negative for: Lesions, Rash, Petechiae, Ecchymosis Psychiatric:: Appropriate affect, Euthymic Lymphatics:: Negative for: Cervical lymphadenopathy, Supraclavicular lymphadenopathy, Axillary lymphadenopathy Laboratory Data: Laboratory Tests WBC 10.3 (4.4-11.0) K/mm3 RBC 4.51 (4.2-5.4) M/mm3 Hgb 15.0 (12.0-15.0) [...] Chronic Code Visit Office Visits / Consults: 62423 OV L4 Est 01/23/18 1620 <Electronically signed by Guido Hogue MD> Date Guido Hogue MD Cosigner Signature: Date (if applicable) CC: CBC W/DIFF, AUTOMATED Collected: 01/23/2018 Status: F Source: [place] 10:36 AM [facility] REPOSITORY Order Comment: Reason for Laboratory Test . TYPE CODE TESTS RESULT OUT OF RANGE REFERENCE UNITS LAB L100.1000 4.4-11.0 K/mm3 Normal WBC 10.3 LAB L100.1200 4.2-5.4 M/mm3 Normal RBC 4.51 LAB L100.1300 12.0-15.0 g/dl Normal HGB 15.0 LAB L100.1400 37-47 % Normal HCT 43.0 LAB L100.1500 81-99 fL Normal MCV 95.3 LAB L100.1600 27.0-32.0 pg High MCH 33.3 LAB L100.1700 32-36 g/gl Normal MCHC 34.9 LAB L100.1810 11.6-14.6 % Normal RDW CV 12.7 LAB L100.1820 35.1-43.9 fl Normal RDW SD 43.3 LAB L100.1900 150-450 K/mm3 Normal PLT 348 LAB L100.2000 6.2-12.0 fl Normal MPV 8.8 LAB L100.2100 47-70 % High NEUT% 75.4 LAB L100.2200 19-41 % Low LY% 13.8 LAB L100.2300 0-10 % Normal MONO% 5.9 LAB L100.2400 0-5 % Normal EO% 4.4 LAB L100.2500 0-1 % Normal BASO% 0.3 LAB L100.2550 0.0-0.9 % Normal IM GRAN % 0.200 Result Comment: IG% - Immature Granulocytes (promyelocytes, myelocytes and metamyelocytes) > 1% indicates that a LEFT SHIFT is Present. LAB L100.2620 2.0-7.7 X10 3/uL High Absolute Neut 7.8 LAB L100.2720 0.83-4.51 X10 3/ul Normal Absolute Lymph 1.42 Performed By: #### L100.0100 #### [facility] [address] [place], [address] COMPREHENSIVE METABOLIC Collected: 01/23/2018 Status: F Source: [facility] 10:36 AM [facility] REPOSITORY Order Comment: Reason for Laboratory Test . TYPE CODE TESTS RESULT OUT OF RANGE REFERENCE UNITS LAB L501.0100 74-106 mg/dL High GLU 120 Result Comment: Fasting Glucose result from 100 to 125 mg/dL suggests IMPAIRED HOMEOSTASIS per A.D.A. criteria. Please note revised GLUCOSE reference range effective 2017. LAB L501.1000 7-18 mg/dL Normal BUN 9 LAB L501.1100 0.55-1.02 mg/dL Normal CREAT,SERUM 0.88 Result Comment: The validity of the calculated GFR AND GFRAA in patients over 70 years has not been determined. Clinical correlation is essential. LAB L501.1110 >60 mL/min Normal EST GFR 68 Result Comment: Non- GFR Calc LAB L501.1115 >60 mL/min Normal EST GFR - AA 83 Result Comment: GFR Calc LAB L501.1255 ml/min Normal Estimated CRCL 51.32 LAB L501.1300 10-20 RATIO Normal BUN/CRE 10.3 LAB L501.1500 6.4-8. g/dL Normal 2 T PROT 7.5 LAB L501.1800 3.2-5. g/dL Normal 0 ALB 3.3 LAB L501.1950 2.2-4. g/dL Normal 2 GLOB 4.2 LAB L501.2000 0.9-2. RATIO Low 4 A/G 0.8 LAB L501.2200 8.5-10 mg/dL Normal .1 CA 8.9 LAB L501.4100 15-37 U/L Normal AST 15 LAB L501.4305 45-117 U/L High ALK P 124 LAB L501.4405 13-56 U/L Normal ALT 28 LAB L501.4600 0.20-1 mg/dL Normal .00 T BILI 0.50 LAB L501.5300 136-14 mmol/L Low 5 NA 135 LAB L501.5600 3.5-5. mmol/L Normal 1 K 4.1 LAB L501.5900 98-107 mmol/L Normal CL 102 LAB L501.6100 21.0-3 mmol/L Normal 2.0 CO2 27.0 LAB L501.6200 5-15 Normal GAP 6 Performed By: #### L500.4050 #### [facility] [address] [facility] [place], [address] KNEE 4 OR MORE Observed: 12/17/2017 Status: F Source: [facility] 9:42 AM [facility] REPOSITORY [facility] Imaging Services [address] [place] [address] Knee 4 or More Views MR#: [id number] Acct: [id number] Name: TISH HULL Rep #: [id number] : 1950 F 67 From: Fer Amos MD PCP: Sandra Degroot NP Status: REG CLI Study: Knee 4 or More Views Date of Exam: 12/17/17 Exam# [id number] Ordering Dr: Lynda Suazo STUDY: X-RAY - RIGHT KNEE REASON FOR EXAM: Female, 67 years old. Pain TECHNIQUE: 4 view(s) of the knee. COMPARISON: 2014 FINDINGS: Normal visualized distal femur. Normal visualized proximal tibia and fibula. Normal proximal tibiofibular articulation. There is mild degenerative arthrosis of the medial femorotibial compartment. Normal lateral femorotibial compartment. There is mild degenerative arthrosis of the patellofemoral articulation. The soft tissue structures are unremarkable. RAD/Knee 4 or More Views IMPRESSION: Degenerative arthrosis. Electronically Signed: Abiodun Amos MD at 16:48 EDT , Service support , CC: Sandra Degroot NP; AGRICULT[employer] CHEMICALS INSPECTOREsteban Suazo Real Estate Photographer: Signed SCREENING MAMM (CAD), Observed: 11/18/2017 Status: F Source: [place] 7:06 AM [facility] REPOSITORY [facility] Imaging Services [address] [place] [address] SCREENING MAMM (CAD), BILAT MR#: [id number] Acct: [id number] Name: TISH HULL Rep #: [id number] : 1950 F 67 From: Xu Adams MD PCP: Sandra Degroot NP Status: PRE CLI Study: SCREENING MAMM (CAD), BILAT Date of Exam: 11/18/17 Exam# [id number] Ordering Dr: Guido Hogue MD MAMMOGRAPHY - BILATERAL SCREENING REASON FOR EXAM: Female, 67 years old. Routine annual screening examination. PERTINENT HISTORY: Personal history of breast cancer. Sister with breast cancer. Prior left lumpectomy with post radiation therapy. TECHNIQUE: Digital bilateral breast debbie (3D mammographic acquisition) in the CC and MLO projections. 2-D mediolateral oblique (MLO) and craniocaudad (CC) views of both breasts were obtained. CAD: Full Field Digital Mammography with Computer Added Detection was performed. COMPARISON: Comparison is made with prior study dated November 16, 2016 and June 07, 2016. FINDINGS: Breast Composition: There are scattered areas of fibroglandular density. The patient is status post lumpectomy of the superior deep portion of the left breast with post operative scarring. This is unchanged. No other significant abnormalities are identified. There has been no significant change since the prior study. BI/SCREENING MAMM (CAD), BILAT IMPRESSION: Stable bilateral screening mammogram. Yearly follow-up mammogram recommended. (A) ASSESSMENT CATEGORY: BIRADS Category 2: Benign. A letter regarding these results will be sent to the patient by the facility within 30 days. Approximately 10% of breast cancers are not detected by mammography. A normal mammogram should not delay biopsy of a clinically suspicious abnormality. [id number] Electronically Signed: Xu Adams MD at 15:22 EDT Tel [phone], Service support , CC: Sandra Degroot NP; Guido Hogue MD Real Estate Photographer: Signed PET/CT TUMOR BASE Observed: 10/05/2017 Status: F Source: [place] 7:46 AM [facility] REPOSITORY [facility] Imaging Services [facility] [place] [address] PET/CT Tumor Base -Thigh Init MR#: [id number] Acct: [id number] Name: TISH HULL Rep #: [id number] : 1950 F 66 From: Hossein Oneill DO PCP: Sandra Degroot NP Status: REG CLI Study: PET/CT Tumor Base -Thigh Init Date of Exam: 10/07/17 Exam# [id number] Ordering Dr: Sandra Degroot EXAMINATION: FDG PET/CT INDICATIONS: A 66-year-old female with reported history of carcinoma of the breast presenting for restaging examination and evaluation of pulmonary nodularity. COMPARISON EXAMINATION: CT of the chest report dated 09/23/17 TECHNIQUE: Following the intravenous administration of 15.67 mCi of F-18 deoxyglucose via the right wrist, multiplanar image acquisitions of the neck, chest, abdomen and pelvis [...] lbs. FINDINGS: 1. There is no quantitative scintigraphic evidence of abnormal increased glucose metabolism within the context of the right hemithorax pulmonary parenchyma to correlate with structural changes noted on review of CT of the thorax dated 09/23/2017. 2. Normal physiologic distribution of the radiopharmaceutical is apparent in the hepatic and splenic parenchyma, both renal units, bladder and visualized intestinal tract. The visualized portion of the cerebral cortex demonstrate symmetric and preserved glucose metabolism. Diffuse radiopharmaceutical concentration is noted in all four quadrants of the abdomen and pelvis. Prominent glucose concentration appears evident in the lower perineum which appears contiguous to apparent placement. Pertinent CT findings are as follows: CHEST: There is atherosclerotic calcification defined in the thoracic aorta without evidence of dilatation-aneurysm formation. Coronary arterial calcification is observed. Apparent postsurgical change is manifest within the left breast. Subcentimeter bilateral axillary soft tissue densities are non-glucose avid. Centrilobular [...] is noted throughout the axial skeletal structures. PET/PET/CT Tumor Base -Thigh Init IMPRESSION: 1. NEGATIVE EXAMINATION. There is no definitive quantitative scintigraphic evidence of recurrent-metastatic/viable neoplasm. 2. There is no quantitative scintigraphic evidence of abnormal increased glucose metabolism within the context of the right lower anteromedial hemithorax pulmonary parenchyma, right middle lobe to correlate with a non-calcified approximately 14.5-mm density noted on review of [...] Service support , CC: Sandra Degroot NP Real Estate Photographer: Signed CREATININE FINGERSTICK Collected: 09/23/2017 Status: F Source: [place] 4:47 PM [facility] REPOSITORY TYPE CODE TESTS RESULT OUT OF RANGE REFERENCE UNITS LAB L9100.0210 0.55-1.02 mg/dL Normal CREATININE WB 0.9 LAB L9100.0220 >60 mL/min EGFR WB Normal > 60.0000 Performed By: #### L9100.0200 #### [facility] Point of Care [address] [facility] [place] [address] CHEST WITH CONTRAST Observed: 09/23/2017 Status: F Source: [place] 4:39 PM [facility] REPOSITORY [facility] Imaging Services [address] [place] [address] Chest WITH Contrast MR#: [id number] Acct: [id number] Name: TISH HULL Joshua Rep #: [id number] : 1950 F 66 From: Vasu Wright MD PCP: Sandra Degroot NP Status: REG CLI Study: Chest WITH Contrast Date of Exam: 09/23/17 Exam# [id number] Ordering Dr: Sandra Degroot STUDY: CT CHEST [...] is normal with no aneurysm, dissection or developmental anomalies. The pulmonary trunk and the left and right pulmonary arteries and their lobar and segmental branches do not show any abnormal and persistent filling defects in them. There is therefore no evidence of pulmonary embolism. The heart is normal. There are no venous anomalies SONJA AND LYMPH NODES: No hilar masses and no mediastinal, hilar, axillary or supraclavicular adenopathy LUNGS, LOW-ATTENUATION: Centrilobular emphysematous changes in both upper. Paraseptal emphysematous changes in both apices. LUNGS, HIGH ATTENUATION: The 8 mm nodular density in the right middle lobe seen on the last examination of August 09, 2016 [...] breasts are normal UPPER ABDOMEN: Unremarkable . CT/Chest WITH Contrast IMPRESSION: An 8 mm nodule in the right middle lobe seen in the last examination of August 09, 2016 has doubled in size to 1.5 cm in today's study. 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 Other small subcentimeter nodules in both lungs also seen previously have not changed. N.B. : EBONY Guzman , Tre, confirmed on 09/24/2017 22:27:32 (ET) that the referring physician received the results and did not require a verbal consultation. Electronically Signed: Vasu Wright, at 1:31 EDT Tel , Service support , N.B. : EBONY Guzman , Other, confirmed on 09/24/2017 22:27:32 (ET) that the referring physician received the results and did not require a verbal consultation. CC: Sandra Degroot NP Real Estate Photographer: Signed ONCOLOGY VISIT REPORT Observed: 07/17/2017 Status: F Source: [place] 3:11 PM [facility] REPOSITORY [facility] Oncology [address] [place] [address] OFFICE VISIT Date of Service: 07/17/17 1446 MR#: [id number] Acct: [id number] Name: TISH HULL Rep #: [id number] : 1950 From: Guido Hogue MD Age/Sex: 66/F Location: [facility] Status: Signed Subjective - Chief Complaint F/u for Left Breast cancer. - History of Present Illness Ms. Tish Hull is a 66-year-old woman with a past medical history positive for hypertension, COPD, inflammatory arthritis and Parkinson's disease who underwent a routine mammogram on 09/23/2012. A grouping of calcifications in the upper left breast near the 12 o'clock position was identified. A stereotactic core biopsy of one of those areas returned positive for ductal carcinoma in situ with focal area of microinvasive carcinoma. Subsequently she underwent a left breast lumpectomy and sentinel lymph node biopsy under the care of Dr. Deandra Ellison on 11/12/2012. 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 The tumor measured 0.4 cm and 3/3 lymph nodes were negative for metastatic disease and surgical margins were uninvolved. Biology proved ER positive (95%) IA positive (5%) and HER2- griffin nonamplified by FISH. She completed 28 fractions of radiation therapy to the left breast with an additional 8 fractions to scar from 12/23/2012 through 02/21/2013 under the care of Dr. Clarke. She began anastrozole 02/23/2013. Baseline DEXA scan is normal. However, scan in 10/2014 revealed osteopenia. She received Prolia from 10/28/2014 to 11/06/2016. CT chest on 08/09/2017 showed bilateral lung nodules. She remains on Anastrozole, comes in for follow up. - Past Medical/Social History Past Medical History Past Medical History: Arthritis,Asthma,COPD,Hypertension,Lupus, Osteopenia Other Past Medical History: MIXED CONNECTIVE TISSUE DISEASE INFLAMATORY POLYARTHROPATHY PARKINSON'S Cancer: Breast cancer Past Surgical History Surgical: Cholecystectomy,Lumpectomy,Tubal ligation Other Surgical History: REMOVAL OF STOMACH TUMOR R ANKLE FRACTURE REPAIR X 2 Family History Paternal Past Medical History: Heart disease,Hyperlipidemia Maternal Past Medical History: Alzheimer's disease,Anemia,Hypertension,Thyroid disease Social History Smoking Status Current every day smoker Review of Systems Constitutional:: Reports: Weakness Cardiovascular:: Denies: Chest pain, Palpitations, Dyspnea on exertion, Orthopnea, PND, Shortness of breath Respiratory: Denies: Cough, Hemoptysis, Shortness of Breath, Wheezing Gastrointestinal:: Denies: Abdominal pain, Nausea, Vomiting, Diarrhea, Constipation, Hematochezia Genitourinary: Denies: Dysuria, Hematuria, 15, Flank pain Musculoskeletal:: Reports: Joint stiffness - L shoulder Skin: Denies: Rash, Skin Changes, Wounds Neurological:: Denies: Headache, Dizziness, Visual changes, Tinnitus, Hearing loss Psychiatric: Denies: Anxiety, Depression, Homicidal Ideations, Suicidal Ideations Vital Signs Height 5 ft 3 in Weight: 102.512 kg Weight in Pounds 226.0 lbs Pulse Ox 93 - Physical Exam General: Alert, Oriented x3, No apparent distress HEENT: Atraumatic, PERRLA, EOMI, Normocephalic Oropharynx:: Dry mucosa Neck:: Supple, Trachea midline. Negative for: JVD, bilateral Cardiac:: Regular rate, Regular rhythm, Normal S1, Normal S2. Negative for: Murmur Lungs: Clear to auscultation, Excusion symmetrical. Negative for: Rhonchi, Wheezes Extremities:: - - + diminished ROM L shoulder Neurological: Neuro grossly intact Skin:: - - Post Radiation changes L breast. Psychiatric:: Appropriate affect, Euthymic Lymphatics:: Negative for: Cervical lymphadenopathy, Supraclavicular lymphadenopathy, Axillary lymphadenopathy Laboratory Data: Laboratory Tests WBC 6.5 (4.4-11.0) K/mm3 RBC 4.54 (4.2-5.4) M/mm3 Hgb 14.8 (12.0-15.0) g/dl Assessment and Plan Left breast cancer stage I on adjuvant Anastrozole. No evidence of disease. Diminished ROM Left shoulder. Lung nodules. Plan is to continue Anastrozole till February 2018. Obtain CT chest to assess lung nodules. RTC 6 months with CBC, CMP. Medications: Prescriptions This Visit Medication Instructions Recorded Glycopyrrolate/Formoterol Fum 10.7 gm IH DAILY PRN 11/06/16 [Bevespi Aerosphere Inhaler] Anastrozole [Arimidex] 1 mg PO DAILY #90 tab 07/17/17 Primary Care Provider: Sandra Degroot Referring Provider: Deandra Ellison - Problem List (1) Pulmonary nodules/lesions, multiple Status: Chronic (2) Malignant neoplasm of central portion of female breast Status: Resolved Qualifiers: Estrogen receptor status: positive Laterality: left Qualified Code(s): C50.112 - Malignant neoplasm of central portion of left female breast; Z17.0 - Estrogen receptor positive status [ER+] (3) History of left breast cancer Status: Chronic Code Visit Office Visits / Consults: 97708 OV L4 Est 07/17/17 1511 <Electronically signed by Guido Hogue MD> Date Guido Hogue MD Cosigner Signature: Date (if applicable) CC: CBC W/DIFF, AUTOMATED Collected: 07/17/2017 Status: F Source: [place] 1:50 PM [facility] REPOSITORY Order Comment: Reason for Laboratory Test . TYPE CODE TESTS RESULT OUT OF RANGE REFERENCE UNITS LAB L100.1000 4.4-11.0 K/mm3 Normal WBC 6.5 LAB L100.1200 4.2-5.4 M/mm3 Normal RBC 4.54 LAB L100.1300 12.0-15.0 g/dl Normal HGB 14.8 LAB L100.1400 37-47 % Normal HCT 42.7 LAB L100.1500 81-99 fL Normal MCV 94.1 LAB L100.1600 27.0-32.0 pg High MCH 32.6 LAB L100.1700 32-36 g/gl Normal MCHC 34.7 LAB L100.1810 11.6-14.6 % Normal RDW CV 13.1 LAB L100.1820 35.1-43.9 fl High RDW SD 45.1 LAB L100.1900 150-450 K/mm3 Normal PLT 325 LAB L100.2000 6.2-12.0 fl Normal MPV 9.0 LAB L100.2100 47-70 % Normal NEUT% 56.5 LAB L100.2200 19-41 % Normal LY% 28.4 LAB L100.2300 0-10 % High MONO% 11.2 LAB L100.2400 0-5 % Normal EO% 3.4 LAB L100.2500 0-1 % Normal BASO% 0.3 LAB L100.2550 0.0-0.9 % Normal IM GRAN % 0.200 Result Comment: IG% - Immature Granulocytes (promyelocytes, myelocytes and metamyelocytes) > 1% indicates that a LEFT SHIFT is Present. LAB L100.2620 2.0-7.7 X10 3/uL Normal Absolute Neut 3.7 LAB L100.2720 0.83-4.51 X10 3/ul Normal Absolute Lymph 1.83 Performed By: #### L100.0100 #### [facility] [address] [place], [address] COMPREHENSIVE METABOLIC Collected: 07/17/2017 Status: F Source: [facility] 1:50 PM [facility] REPOSITORY Order Comment: Reason for Laboratory Test . TYPE CODE TESTS RESULT OUT OF RANGE REFERENCE UNITS LAB L501.0100 74-106 mg/dL Normal GLU 92 Result Comment: Please note revised GLUCOSE reference range effective 2017. LAB L501.1000 7-18 mg/dL Normal BUN 14 LAB L501.1100 0.55-1.02 mg/dL Normal CREAT,SERUM 0.98 Result Comment: The validity of the calculated GFR AND GFRAA in patients over 70 years has not been determined. Clinical correlation is essential. LAB L501.1110 >60 mL/min Normal EST GFR 60 Result Comment: Non- GFR Calc LAB L501.1115 >60 mL/min Normal EST GFR - AA 73 Result Comment: GFR Calc LAB L501.1255 ml/min Normal Estimated CRCL 46.71 LAB L501.1300 10-20 RATIO Normal BUN/CRE 14.3 LAB L501.1500 6.4-8. g/dL Normal 2 T PROT 7.8 LAB L501.1800 3.2-5. g/dL Normal 0 ALB 3.5 LAB L501.1950 2.2-4. g/dL High 2 GLOB 4.3 LAB L501.2000 0.9-2. RATIO Low 4 A/G 0.8 LAB L501.2200 8.5-10 mg/dL Normal .1 CA 9.0 LAB L501.4100 15-37 U/L Normal AST 16 LAB L501.4305 45-117 U/L High ALK P 135 LAB L501.4405 13-56 U/L Normal ALT 20 Result Comment: Please note revised ALT reference range effective 2017. LAB L501.4600 0.20-1.00 mg/dL Normal T BILI 0.60 LAB L501.5300 136-145 mmol/L Low NA 135 LAB L501.5600 3.5-5.1 mmol/L Normal K 4.0 LAB L501.5900 98-107 mmol/L Low CL 97 LAB L501.6100 21.0-32.0 mmol/L Normal CO2 31.0 LAB L501.6200 5-15 Normal GAP 7 Performed By: #### L500.4050 #### [facility] [address] [place], [place], [id number] ALLERGIES ALLERGIES DATE TYPE / CODE NAME / CODE REACTION SEVERITY SOURCE 04/24/2018 Drug bromide Hives Unknown [facility] Allergy/4160 salts/[id number] [facility] 54323(SNOMED 26(RXNORM) Repository CT) 04/24/2018 Drug strawberry/F00 Hives Unknown [facility] Allergy/4160 2040483([facility] 57963(SNOMED ) Repository CT) ENCOUNTERS ENCOUNTERS ADMIT/DISCHARGE ACCOUNT ADMITTING ENCOUNTER LOCATION SOURCE NUMBER CLASS 04/30/2018 [id number] Ambulatory [place] [facility] Hospital ing:CT Repository 04/24/2018 [id number] Ambulatory BMSBuilding:B [place] 6 [facility] Repository 04/24/2018 [id number] Ambulatory [place] [facility] Hospital ing:OMD Repository 04/14/2018 [id number] Ambulatory Building:[facility] OHIP Practices Repository 02/12/2018 [id number] Ambulatory [place] [facility] Hospital ing:CT Repository 01/23/2018 [id number] Ambulatory BMSBuilding:B [place] 1 [facility] Hospital Repository 12/17/2017 [id number] Ambulatory [place] [facility] Hospital ing:HPRAD Repository 11/18/2017 [id number] Ambulatory [place] [facility] Hospital ing:OPBI Repository 10/07/2017 [id number] Ambulatory [place] [facility] Hospital ing:ONC Repository 09/23/2017 [id number] Ambulatory [place] [facility] Hospital ing:CT Repository 07/17/2017 [id number] Ambulatory BMSBuilding:B [place] 6 [facility] Repository PAYERS PAYERS ENCOUNTER GUARANTOR PAYER SUBSCRIBER SOURCE 04/30/2018 TISH HULL755 Primary TISH GAINESOB: [place] Insurance:MIKEY [id number] [address]Jmv: (720) HMOPolicy Number: Repository [phone] HP) [id number] e Date:2024-89-91Eq [address] [place] [address]JZ: 04/30/2018 Secondary NOT GIVENUNK [place] Insurance:SELF PAY [facility] Number: Effective Repository Date:2018-04-24 04/24/2018 TISH MATAMOROS5 Primary TISH GAINESOB: [place] Insurance:MIKEY [id number]. Charles Hospital [address]Itj: (330) OPolicy Number: Repository [phone] () [id number] e Date:7916-56-90Si [address] [place] [address]EV: 04/24/2018 Secondary NOT GIVENUNK [place] Insurance:SELF PAY [facility] Number: Effective Repository Date:2018-04-24 04/24/2018 TISH VALIENTEE755 Primary TISH VALIENTEEDOB: [place] Insurance:MARVIN [id number]. Charles Hospital [address]Yxu: (330) [facility] [phone] () [id number] e Date:9303-72-01Ne [address] [address]RM: 04/24/2018 Secondary NOT GIVENUNK [place] Insurance:SELF PAY [facility] Number: Effective Repository Date:2016-06-27 04/14/2018 Tish ValienteeDOB: Primary Tish ValienteeDOB: [place]IP Practices Insurance:PrimetimePo [id number] Repository [facility] Number: [place] [id number] [place] [address]Wgy: (330) e Date:4106-03-57Kqwq [address]Tid: () Name:[facility] [phone] () [address] [address]JV: 04/14/2018 Secondary Tish GainesOB: [place]IP Practices Insurance:Medical [id number] Repository [facility] Number: [place] [id number] [address]Lgt: Date: - ~(3 [id number] 30 () Name:[facility] [address], [place] [id number]: 04/14/2018 Tertiary Tish GainesOB: [place]IP Practices Insurance:[place] [id number] Repository [facility] Number: [place] [id number] [place], [place] Date: [address]Fot: [id number] ~(3 Name:[address] () [address], [place] [address]XF: 02/12/2018 TISH MATAMOROS5 Primary TISH GAINESOB: [place] Insurance:MIKEY [id number] [place] [id number]: (330) OPolicy Number: Repository [phone] () [id number] e Date:7989-53-76Ml [address] [address]SH: 02/12/2018 Secondary NOT GIVENUNK [place] Insurance:SELF PAY [facility] Number: Effective Repository Date:2017-10-25 01/23/2018 TISH MATAMOROS5 Primary TISH GAINESOB: [place] Insurance:MIKEY [id number] Ville [id number]: (330) OPolicy Number: Repository [phone] () [id number] e Date:4120-47-97Kj [address] [address]QY: 01/23/2018 Secondary NOT GIVENUNK [place] Insurance:SELF PAY [facility] Number: Effective Repository Date:2018-01-23 12/17/2017 Tish Matamoros5 Primary Tish GainesOB: [place] Insurance:MIKEY [id number] Ville [id number]: (954) OPolicy Number: Repository [phone] () [id number] e Date:1954-36-05Ok [address] [address]MM: 12/17/2017 Secondary NOT GIVENUNK [place] Insurance:SELF PAY [facility] Number: Effective Repository Date:2017-12-17 11/18/2017 TISH HULL755 Primary TISH GAINESOB: [place] Insurance:MIKEY [id number] Ville [address]Tel: (330) OPolicy Number: Repository [phone] () [id number] e Date:6975-15-72Ds [address] [address]VM: 11/18/2017 Secondary NOT GIVENUNK [place] Insurance:SELF PAY [facility] Number: Effective Repository Date:2017-10-25 10/07/2017 Tish Hull755 Primary Tish GainesOB: [place] Insurance:MIKEY [id number] [place]ille [address]Tel: (330) [facility] Repository [phone] () [id number] e Date:5778-45-19Tb [address] [place] [address]HK: 10/07/2017 Secondary NOT GIVENUNK [place] Insurance:SELF PAY [facility] Number: Effective Repository Date:2017-10-04 09/23/2017 Tish Hull755 Primary Tish GainesOB: [place] Insurance:MIKEY [id number] [place]ille [address]Tel: (009) [facility] Repository [phone] () [id number] e Date:7625-16-22Df [address] [address]CJ: 09/23/2017 Secondary NOT GIVENUNK [place] Insurance:SELF PAY [facility] Number: Effective Repository Date:2017-09-12 07/17/2017 Tish Hlul755 Primary Tish GainesOB: [place] Insurance:MIKEY [id number] [facility] [address]Ips: (351) HMOPolicy Number: Repository [phone] (HP) [id number] e Date:5639-96-06Ds [address] [address]PW: 07/17/2017 Secondary NOT GIVENUNK [place] Insurance:SELF PAY [facility] Number: Effective Repository Date:2017-07-17
== END ==
PROVIDERS: Radiology Diagnostic Radiology; Family Provider Nurse Practitioner; PCP Nurse Practitioner; Referring Provider Internal Medicine Medical Oncology; Visit Provider Internal Medicine Medical Oncology
DX: R91.1 Solitary pulmonary nodule (principal); Z79.01 Long term (current) use of anticoagulants; Z85.3 Personal history of malignant neoplasm of breast
CPT/HCPCS: 32405; 36415; 71046; 77012; 85025; 85610; 85730; 88305; 88313; 99153; 99156; 99157; J7030; J7040; A4216

== ENCOUNTER → 2018-05-27 07:46 | Outpatient (CLI) | payer MEDICARE, SELFPAY ==
[2018-04-30 08:58] VITALS: BMI 41.3
--- NOTE | 2018-05-26 | ASPIGT_PTH ---
PATIENT: ZEINAB HULL LOC: CT U#:[id number] AGE/SX: 74/F ROOM: RE05/27/[address]: Dr. Guido Hogue MD : 1950 BED: DIS: SPEC #: [id number] RECD: 05/27/18 12:22 STATUS: JIN MEET #: [id number] IAN: 05/26/18 00:[address]: Guido Hogue DEPT: SURGICAL PATHOLOGY RECD BY: Espinoza Hunt ENTERED: 05/27/18 12:23 SP TYPE: ASP RAD OTHR DR: Sandra Degroot, COMMUNICATIONS ENGINEERING TECHNICIAN-Hemanth Tissues: Right lung, NOS Procedures: FNA Specimen Adequacy Special Stain Group II Surgery Specimen Level IV Surgery Specimen Level V Imprint (control) HEADER OPERATION: CT-guided right lung biopsy PRE-OP DIAGNOSIS: Right mid lung nodule TISSUE SUBMITTED: Right lung 20 gauge core x5 MICROSCOPIC DIAGNOSIS Right lung, CT-guided needle core biopsy: Organizing blood clot with fragments of benign lung parenchyma. No evidence of malignancy. AM:negrito 05/28/18 COMMENT The specimen is evaluated at the time of biopsy by Dr. Ching. Immediate Evaluation = Mildly atypical cells noted. Immunohistochemistry ([id number]) supports the above diagnosis. Case has been reviewed in consultation with Dr. Ching who concurs with the above diagnosis. IDC:MARISSA MICROSCOPIC DESCRIPTION Sections show fragments of benign lung parenchyma. Focally, there is organizing blood clot of recent origin and associated benign histiocytes with reactive changes. GROSS DESCRIPTION Received in fixative is one container labeled with the patient's name and designated right lung, CTguided core biopsy. The specimen consists of multiple irregular fragments of martinez soft tissue that in aggregate measure 0.5 x 0.1 x <0.1 cm. The specimen is totally submitted in one cassette. Two touch imprints are prepared at the time of core biopsy. / MARISSA:negrito 05/27/18 TC:5 CPT: 93795, 40590, 99499
--- NOTE | 2018-05-26 | IMM_PTH ---
PATIENT: ZEINAB HULL LOC: CT U#:[id number] AGE/SX: 74/F ROOM: RE05/27/[address]: Dr. Guido Hogue MD : 1950 BED: DIS: SPEC #: [id number] RECD: 05/28/18 11:51 STATUS: JIN RELaura #: [id number] IAN: 05/26/18 00:[address]: Guido Hogue DEPT: IMMUNOHISTOCHEMISTRY RECD BY: Jannie Roberts ENTERED: 05/28/18 11:53 SP TYPE: IMMUNO OTHR DR: Sandra Degroot, EXPERIMENTAL AIRCRAFT MECHANIC-C Tissues: Lung, NOS Procedures: NAPSIN A (add) CK20 (add) CK7 (add) CK8 (add) P53 (add) TTF1 (add) Vimentin (add) 34BE12 (add) Pankeratin (initial) PHYSICIAN & INSTITUTION [place] [id number] SPECIMEN INFORMATION: Tissue Source: Right lung Clinical Info: Right mid lung nodule Specimen Number: [id number] CPT code: 75688, 08624 x8 METHODOLOGY: Deparaffinized sections of prefer/formalin-fixed tissue or PAP/DQ stained slides are incubated with monoclonal/polyclonal antibodies/oligonucleotide probes. Localization is made via biotin free immunoperoxidase method. Appropriate controls are performed and reacted as expected. Results on target cell population are indicated in the following table: RESULTS: ANTIBODY / CLONE RESULT AE1-3 (AE1/AE3/PCK26) negative CK7 (OV-TL12/30) negative CK8 (91nfcmB09) negative CK20 (KS20.8) negative 34BE12 (34BE12) negative Vimentin (V9) positive TTF-1 (8G7G3/1) negative Napsin A (Rabbit Polyclonal) negative P53 (DO-7) negative These tests were developed and their performance characteristics determined by [facility]. They may not have been cleared or approved by the U.S. Food and Drug Administration. The FDA has determined that such clearance or approval is not necessary. INTERPRETATION: Right lung, CT-guided core biopsy: No evidence of malignancy. AM:negrito 05/29/18
[2018-05-27] VITALS (12 sets, daily range): BP systolic 168–207; BP diastolic 61–98; PULSE 71–82; RESP 16–26; TEMP 36.6; O2SAT 93–100; BMI 41.3
--- NOTE | 2018-05-27 07:47 | CT_ITS ---
PROCEDURE: CT GUIDED CORE NEEDLE BIOPSY OF A right upper lobe LUNG LESION INDICATION: Female, 67 years old. Right upper lobe lung nodule. PHYSICIAN: Dr. Angie REAGAN CONSENT: Written informed consent was obtained having explained the risks, benefits and alternatives in detail with the patient who accepted the risks and agreed to proceed. Laboratory review and clinical assessment was performed. CONSCIOUS SEDATION PROTOCOL: The Drugs used were: 2 mg Versed, IV., and 50 mcg Fentanyl, IV. The sedation time was: 27 minutes. Conscious sedation was started at 9:04 AM and terminated at 9:31 AM. The conscious sedation protocol was independently monitored. RADIATION DOSAGE (If Supplied By Facility): CTDIvol = ( 16.67 ) mGy, DLP = ( 409.76 ) mGycm Individualized dose optimization techniques were used for this CT. TECHNIQUE: The patient was placed in the super position. A noncontrast CT was performed to localize the lesion in the right upper lobe . The skin surface was prepped and draped in a sterile fashion. 1% lidocaine was used for local anesthesia. Using CT guidance, a 20 coaxial biopsy device was advanced to the periphery of the lesion. A total of 5 core specimens were obtained. The specimens were placed in a formalin solution. A post procedure CT demonstrated no adverse sequelae or pneumothorax. The patient tolerated the procedure well without adverse event. A negative biopsy does not exclude malignancy. Further imaging or clinical followup based on patient condition and degree of clinical suspicion for malignancy. Suggest rebiopsy, if biopsy results do not match with clinical scenario. CT/Biopsy/Inj or Needle Placement IMPRESSION: 1. CT directed core needle biopsy of the right upper lobe nodule using CT image guidance with image documentation as described. Pathology results are pending. 2. Conscious Sedation protocol utilized with independent monitoring. Electronically Signed: Xu Adams MD at 11:07 EST , Service support ,
[2018-05-27 07:59] LABS: Absolute Lymphocyte Count 1.77 X10^3/ul (0.83-4.51); Absolute Neutrophil Count 4.5 X10^3/uL (2.0-7.7); Basophil# 0.04 X10^3/uL; Basophil% 0.5 % (0-1); Eosinophil# 0.26 X10^3/uL; Eosinophils% 3.6 % (0-5); Hematocrit 45.2 % (37-47); Hemoglobin 14.9 g/dl (12.0-15.0); Lymphocyte # 1.77 X10^3/ul (4.0); Lymphocyte % 24.3 % (19-41); Mean Corpuscular Hgb 32.1 pg (27.0-32.0); Mean Corpuscular Volume 97.4 fL (81-99); Mean Platelet Vol. 8.9 fl (6.2-12.0); Monocyte# 0.69 X10^3/uL; Monocyte% 9.5 % (0-10); Neutrophil # 4.52 X10^3/uL (2.7-7.7); Platelet Count 295 K/mm3 (150-450); RBC Distribution Width CV 13.1 % (11.6-14.6); RBC Distribution Width SD 46.6 fl (35.1-43.9); Red Blood Count 4.64 M/mm3 (4.2-5.4); White Blood Count 7.3 K/mm3 (4.4-11.0)
[2018-05-27 08:01] LABS: POSITIVE COUNT NO; POSITIVE DIFFERENTIAL NO; POSITIVE MORPHOLOGY NO
--- NOTE | 2018-05-27 08:08 | RAD_ITS ---
STUDY: X-RAY CHEST REASON FOR EXAM: Female, 67 years old. 2 hours post lung biopsy TECHNIQUE: 2 AP views, one in expiration, one in inspiration COMPARISON: 04/30/2018 FINDINGS: No demonstrated pneumothorax or mediastinal shift after recent lung biopsy. Chronic interstitial changes, no organized infiltrate or effusion. There is no demonstrated pleural abnormality. Normal size heart. Normal mediastinum and rachael. Normal visualized pulmonary arteries. There is atherosclerotic calcification of the aortic arch with tortuosity. There are diffuse degenerative changes of the visualized thoracic spine. Normal visualized ribs, clavicles, and shoulders. There is no demonstrated abnormality of the visualized soft tissue structures of the upper abdomen. RAD/Chest Insp/Exp 2 View IMPRESSION: No postbiopsy pneumothorax Chronic interstitial changes, no superimposed acute pulmonary process Electronically Signed: Abiodun Amos MD at 12:33 EST , Service support ,
--- NOTE | 2018-05-27 08:10 | RAD_ITS ---
STUDY: X-RAY CHEST REASON FOR EXAM: Female, 67 years old. Immediate postright lung biopsy radiograph. TECHNIQUE: Inspiration expiration views were obtained. COMPARISON: Comparison is made with prior study dated April 29, 2018. FINDINGS: The patient is status post right lung biopsy. There is no evidence of pneumothorax. Right middle lobe lung nodule is seen. RAD/Chest Insp/Exp 2 View IMPRESSION: Status post right lung biopsy. There is no evidence of pneumothorax. Electronically Signed: Xu Adams MD at 14:18 EST , Service support ,
[2018-05-27 08:39] LABS: Prothrombin Time (Protime)PT. 12.9 SECONDS (11.7-14.9)
[2018-05-27 08:40] LABS: Partial Thromboplast Time 28.3 Seconds (24.1-36.2)
[2018-05-27] MEDS: Midazolam 2 MG/2 ML Syringe IV (09:04)
[2018-05-27] MEDS: fentaNYL 100 MCG/2 ML Ampul IV (09:10)
== END ==
PROVIDERS: Family Provider Nurse Practitioner; PCP Nurse Practitioner; Referring Provider Internal Medicine Medical Oncology; Visit Provider Internal Medicine Medical Oncology
DX: R91.8 Other nonspecific abnormal finding of lung field (principal); Z01.818 Encounter for other preprocedural examination; J44.9 Chronic obstructive pulmonary disease, unspecified; I10 Essential (primary) hypertension; G20 Parkinson's disease; M19.90 Unspecified osteoarthritis, unspecified site; M85.80 Other specified disorders of bone density and structure, unspecified site; Z85.3 Personal history of malignant neoplasm of breast; Z79.52 Long term (current) use of systemic steroids; Z79.899 Other long term (current) drug therapy
CPT/HCPCS: 32405; 36415; 71046; 77012; 85025; 85610; 85730; 88172; 88305; 88307; 88313; 88341; 88342; 99156; 99157; J7040; A4216

== ENCOUNTER → 2018-12-15 08:08 | Outpatient (CLI) | payer MEDICARE, SELFPAY ==
[2018-05-27 08:21] VITALS: BMI 41.3
--- NOTE | 2018-12-15 08:12 | CT_ITS ---
STUDY: CT CHEST WITH CONTRAST REASON FOR EXAM: Female, 68 years old. Follow-up for pulmonary nodule. History of breast cancer with prior left lumpectomy and radiation treatment. RADIATION DOSAGE (If Supplied By Facility): CTDIvol = ( 20.01 ) mGy, DLP = ( 712.44 ) mGycm TECHNIQUE: Transaxial imaging was performed following intravenous administration of 100 IV Isovue 300. Multiplanar coronal and sagittal images were reformatted. Individualized dose optimization techniques were used for this CT. COMPARISON: Comparison is made with prior study dated February 12, 2018. FINDINGS: A clip is seen within the slightly spiculated nodule in the posterior aspect of the left breast. The nodule measures 1.4 cm x 0.8 cm. With again, there is a noncalcified lobulated nodule in the right middle lobe. It has increased in size. It presently measures 1.9 cm x 2.2 cm. Stable emphysematous changes in the lung apices as well as in the upper lobes. No new nodule is seen at this time. There is no demonstrated pleural abnormality. There are calcifications of the coronary arteries. Normal mediastinum. Normal hilar regions. Normal enhanced pulmonary arteries. There is atherosclerotic calcification of the aortic arch with tortuosity and elongation of the aortic arch and descending thoracic aorta. There are degenerative changes of the thoracic spine. Fatty infiltration of the liver. CT/Chest WITH Contrast IMPRESSION: Progressive increase in size of the right middle lobe nodule. It presently measures 1.9 cm x 2.2 cm. The remainder of the examination is unchanged. Electronically Signed: Xu Adams, at 14:14 EDT , Service support ,
[2018-12-15 08:31] LABS: CREATININE FINGERSTICK 0.8 mg/dL (0.55-1.02)
== END ==
PROVIDERS: Family Provider Nurse Practitioner; PCP Nurse Practitioner; Referring Provider Internal Medicine Medical Oncology; Visit Provider Internal Medicine Medical Oncology
DX: Z01.812 Encounter for preprocedural laboratory examination (principal); R91.1 Solitary pulmonary nodule; Z85.3 Personal history of malignant neoplasm of breast
CPT/HCPCS: 71260; Q9967; A4216

== ENCOUNTER → 2019-01-19 08:49 | Outpatient (CLI) | payer MEDICARE, SELFPAY ==
[2018-12-18 10:43] VITALS: BMI 43.4
[2019-01-19] VITALS (11 sets, daily range): BP systolic 134–176; BP diastolic 63–111; PULSE 58–70; RESP 18–28; TEMP 36.6; O2SAT 95–100; BMI 41.1
--- NOTE | 2019-01-19 | LUNB_PTH ---
PATIENT: ZEINAB HULL LOC: CT U#:[id number] AGE/SX: 74/F ROOM: RE01/19/[address]: Dr. Guido Hogue MD : 1950 BED: DIS: SPEC #: [id number] RECD: 01/19/19 10:50 STATUS: JIN MEET #: [id number] IAN: 01/19/19 00:[address]: Guido Hogue DEPT: SURGICAL PATHOLOGY RECD BY: Kimberlee Sahu ENTERED: 01/19/19 11:19 SP TYPE: LUNG BX OTHR DR: Sandra Degroot, BOARD MACHINE SET UP OPERATOR-Hemanth Tissues: Lung, NOS Procedures: Special Stain Group II Surgery Specimen Level IV Imprint (control) HEADER OPERATION: CT guided right lung biopsy PRE-OP DIAGNOSIS: Right lung mass TISSUE SUBMITTED: Right lung, core biopsy MICROSCOPIC DIAGNOSIS Right lung mass, CT-guided core biopsy: Fragments of benign lung parenchymal tissue. Negative for malignancy. SJ:negrito 01/20/19 COMMENT The specimen is evaluated at the time of CT by Dr. Ching. Immediate Evaluation = Negative for malignant cells. Correlation with clinical, radiologic findings and appropriate follow up are necessary. Please make reference to previous specimen ([id number]) CT-guided fine needle aspiration, right middle lobe lung nodule with diagnosis of abundant mucoid material with atypical epithelioid cells and ([id number]) right lung, CT-guided core biopsy with diagnosis of organizing blood clot with fragments of benign lung parenchyma and no evidence of malignancy. Case has been reviewed in consultation with Dr. Chadwick who concurs with the above diagnosis. IDC:AM MICROSCOPIC DESCRIPTION Slides are reviewed. GROSS DESCRIPTION Received in fixative is one container labeled with the patient's name and designated right lung biopsy. The specimen consists of multiple irregular fragments of martinez soft tissue that in aggregate measure 1 x 0.1 x <0.1 cm. The specimen is totally submitted in one cassette. / MARISSA:negrito 01/19/19 TC:5 CPT: 21476, 50994
--- NOTE | 2019-01-19 09:09 | CT_ITS ---
PROCEDURE: CT GUIDED CORE NEEDLE BIOPSY OF A right middle lobe LUNG LESION INDICATION: Female, 68 years old. Right middle lobe nodule. PHYSICIAN: Dr. Angie Boggs CONSENT: Written informed consent was obtained having explained the risks, benefits and alternatives in detail with the patient who accepted the risks and agreed to proceed. Laboratory review and clinical assessment was performed. CONSCIOUS SEDATION PROTOCOL: The Drugs used were: 2 mg Versed, IV., and 50 mcg Fentanyl, IV. The sedation time was: 16 minutes. Conscious sedation was started 10:24 AM and terminated at 10:40 AM. The conscious sedation protocol was independently monitored. RADIATION DOSAGE (If Supplied By Facility): CTDIvol = ( 16.67 ) mGy, DLP = ( 547.16 ) mGycm Individualized dose optimization techniques were used for this CT. TECHNIQUE: The patient was placed in the supine position. A noncontrast CT was performed to localize the lesion in the right middle lobe . The skin surface was prepped and draped in a sterile fashion. 1% lidocaine was used for local anesthesia. Using CT guidance, a 20-gauge coaxial biopsy device was advanced to the periphery of the lesion. A total of 3 core specimens were obtained. The specimens were placed in a formalin solution. A post procedure CT demonstrated no adverse sequelae or pneumothorax. The patient tolerated the procedure well without adverse event. A negative biopsy does not exclude malignancy. Further imaging or clinical followup based on patient condition and degree of clinical suspicion for malignancy. Suggest rebiopsy, if biopsy results do not match with clinical scenario. CT/Biopsy/Inj or Needle Placement IMPRESSION: 1. CT directed core needle biopsy of the right middle lobe lung nodule using CT image guidance with image documentation as described. Pathology results are pending. 2. Conscious Sedation protocol utilized with independent monitoring. Electronically Signed: Xu Adams, at 11:30 EDT , Service support ,
[2019-01-19 09:23] LABS: Absolute Lymphocyte Count 1.54 X10^3/uL (0.83-4.51); Absolute Neutrophil Count 4.4 X10^3/uL (2.0-7.7); Basophil# 0.06 X10^3/uL; Basophil% 0.9 % (0-1); Eosinophil# 0.29 X10^3/uL; Eosinophils% 4.2 % (0-5); Hematocrit 43.9 % (37-47); Lymphocyte # 1.54 X10^3/ul (4.0); Lymphocyte % 22.2 % (19-41); Mean Corp Hgb Conc 34.2 g/dL (32-36); Mean Corpuscular Hgb 32.8 pg (27.0-32.0); Mean Corpuscular Volume 96.1 fL (81-99); Mean Platelet Vol. 9.2 fl (6.2-12.0); Monocyte# 0.65 X10^3/uL; Monocyte% 9.4 % (0-10); NRBC Flagged by Analyzer 0 % (0-5); Neutrophil # 4.37 X10^3/uL (2.7-7.7); Neutrophil % 62.7 % (47-70); Platelet Count 336 K/mm3 (150-450); RBC Distribution Width CV 12.3 % (11.6-14.6); RBC Distribution Width SD 43.8 fl (35.1-43.9); Red Blood Count 4.57 M/mm3 (4.2-5.4)
[2019-01-19 09:27] LABS: Prothrombin Time (Protime)PT. 12.8 SECONDS (11.7-14.9)
[2019-01-19 09:28] LABS: Partial Thromboplast Time 29.7 Seconds (24.1-36.2)
[2019-01-19] MEDS: Midazolam 2 MG/2 ML Syringe IV (10:24)
[2019-01-19] MEDS: fentaNYL 100 MCG/2 ML Ampul IV (10:25)
--- NOTE | 2019-01-19 10:44 | RAD_ITS ---
STUDY: X-RAY CHEST REASON FOR EXAM: Female, 68 years old. Immediate postright lung biopsy radiograph. TECHNIQUE: AP inspiration and expiration views. COMPARISON: Comparison is made with prior study dated May 27, 2018. FINDINGS: EKG electrodes are seen. No evidence of pneumothorax on the post right lung biopsy radiograph. Persistent right lower lobe nodular density. RAD/Chest Insp/Exp 2 View IMPRESSION: No evidence of pneumothorax on the immediate post right lung biopsy radiograph. Electronically Signed: Xu Adams, at 11:22 EDT , Service support ,
[2019-01-19] MEDS: traMADol 50 MG Tablet PO (12:07)
--- NOTE | 2019-01-19 12:36 | RAD_ITS ---
STUDY: X-RAY CHEST REASON FOR EXAM: Female, 68 years old. 2 hour post right lung biopsy radiograph. TECHNIQUE: AP inspiration and expiration views. COMPARISON: Comparison is made with prior study done earlier in the day. FINDINGS: There is no evidence of pneumothorax on the 2 hour post right lung biopsy radiograph.. RAD/Chest Insp/Exp 2 View IMPRESSION: No evidence of pneumothorax on the 2 hour post right lung biopsy radiograph. Electronically Signed: Xu Adams, at 14:26 EDT , Service support ,
== END ==
PROVIDERS: Family Provider Nurse Practitioner; PCP Nurse Practitioner; Referring Provider Internal Medicine Medical Oncology; Visit Provider Internal Medicine Medical Oncology
DX: Z01.818 Encounter for other preprocedural examination (principal); R91.8 Other nonspecific abnormal finding of lung field; G20 Parkinson's disease; J44.9 Chronic obstructive pulmonary disease, unspecified; I10 Essential (primary) hypertension; M19.90 Unspecified osteoarthritis, unspecified site; M85.80 Other specified disorders of bone density and structure, unspecified site; Z79.52 Long term (current) use of systemic steroids; Z79.899 Other long term (current) drug therapy; Z85.3 Personal history of malignant neoplasm of breast
CPT/HCPCS: 32405; 36415; 71046; 77012; 85025; 85610; 85730; 88305; 88313; 99156; 99157; J7040

== ENCOUNTER → 2019-06-09 10:05 | Outpatient (CLI) | payer MEDICARE, SELFPAY ==
[2019-02-02 11:06] VITALS: BMI 41.8
--- NOTE | 2019-06-09 10:09 | BI_ITS ---
MAMMOGRAPHY - BILATERAL SCREENING REASON FOR EXAM: Female, 68 years old. Routine annual screening examination. PERTINENT HISTORY: Personal history of breast cancer. Prior left lumpectomy and radiation treatment. Sister with breast cancer. TECHNIQUE: Digital bilateral breast parker (3D mammographic acquisition) in the CC and MLO projections. 2-D mediolateral oblique (MLO) and craniocaudad (CC) views of both breasts were obtained. CAD: Full Field Digital Mammography with Computer Added Detection was performed. COMPARISON: Comparison is made with prior study dated November 18, 2017 and November 16, 2016. FINDINGS: Breast Composition: There are scattered areas of fibroglandular density. There are no dominant masses or suspicious calcifications. Stable deformity and the architectural distortion following lumpectomy in the superior deep portion of the left breast. No other significant abnormalities are identified. There has been no significant change since the prior study. BI/SCREEN MAMM (CAD) W/PARKER BILAT IMPRESSION: Stable bilateral screening mammogram. Yearly follow-up mammogram recommended. (A) ASSESSMENT CATEGORY: BIRADS Category 2: Benign. A letter regarding these results will be sent to the patient by the facility within 30 days. Approximately 10% of breast cancers are not detected by mammography. A normal mammogram should not delay biopsy of a clinically suspicious abnormality. [id number] Electronically Signed: Xu Adams, at 12:04 EST , Service support ,
== END ==
PROVIDERS: PCP Nurse Practitioner; Referring Provider Nurse Practitioner; Visit Provider Nurse Practitioner
DX: Z12.31 Encounter for screening mammogram for malignant neoplasm of breast (principal); C50.919 Malignant neoplasm of unspecified site of unspecified female breast; Z85.3 Personal history of malignant neoplasm of breast; Z92.3 Personal history of irradiation; Z80.3 Family history of malignant neoplasm of breast
CPT/HCPCS: 77063; 77067

== ENCOUNTER → 2020-01-21 12:17 | Outpatient (CLI) | payer MEDICARE, SELFPAY ==
[2019-02-02 11:06] VITALS: BMI 41.8
--- NOTE | 2020-01-21 12:17 | CT_ITS ---
STUDY: CT CHEST WITH CONTRAST REASON FOR EXAM: Female, 69 years old. MONITORING LUNG NODULES -- HX- BREAST CA W/ LUMPECTOMY and amp;amp; RAD TX -- +DIAB,HTN, EMPHYSEMA,COPD -- SURG-GB RADIATION DOSAGE (If Supplied By Facility): CTDIvol = ( 14.77 ) mGy, DLP = ( 685.21 ) mGycm TECHNIQUE: Transaxial imaging was performed following intravenous administration of IV 100mL Isovue-300. Individualized dose optimization techniques were used for this CT. COMPARISON: 12/15/2018 FINDINGS: Moderate emphysematous changes. Mild bilateral apical scarring. Interval increase in size of the nodule the right middle lobe from 1.9 x 2.2 cm to 3.0 x 3.0 cm consistent with worsening bronchial carcinoma or metastatic disease. No change in a 4 mm noncalcified nodule in the superior segment the right lower lobe the lungs on image 48 which may represent a noncalcified granuloma. There is no demonstrated pleural abnormality. Normal heart and pericardium. Normal mediastinum. Normal hilar regions. Normal enhanced pulmonary arteries. Normal aorta arch and descending thoracic aorta. Normal osseous structures. There is no demonstrated abnormality of the visualized upper abdomen. CT/Chest WITH Contrast IMPRESSION: Enlarging right middle lobe nodule worrisome for the worsening bronchogenic carcinoma or solitary metastasis. Electronically Signed: Hossein Woodard MD at 15:59 EDT Tel , Service support ,
[2020-01-21 12:46] LABS: CREATININE FINGERSTICK 1.1 mg/dL (0.55-1.02)
== END ==
PROVIDERS: PCP Nurse Practitioner; Referring Provider Internal Medicine Medical Oncology; Visit Provider Internal Medicine Medical Oncology
DX: R91.8 Other nonspecific abnormal finding of lung field (principal); Z85.3 Personal history of malignant neoplasm of breast
CPT/HCPCS: 71260; Q9967; A4216

== ENCOUNTER → 2020-05-18 12:41 | Outpatient (CLI) | payer MEDICARE, SELFPAY ==
[2019-02-02 11:06] VITALS: BMI 41.8
--- NOTE | 2020-05-18 12:43 | VDLE_ITS ---
Reason For Study: Edema RIGHT GSV is normal. CFV is compressible, spontaneous, phasic, competent and demonstrates normal augmentation. FV is compressible, spontaneous, phasic, competent and demonstrates normal augmentation. POP V is compressible, spontaneous, phasic, competent and demonstrates normal augmentation. T/P Trunk is compressible. PTV is compressible. RT PerV is compressible. Procedure This is a venous duplex using B-mode, color flow and spectral Doppler. Exam performed in department. A preliminary report was called and/or faxed to [facility]. Interpretation Summary Deep veins of the right lower extremity are patent and compressible segmentally. There is no evidence of right lower extremity deep vein thrombosis. Valvular competence appears intact within the proximal deep venous system on the right . The right great saphenous vein appears patent and compressible segmentally. Ordering Physician: Sandra Degroot Referring Physician: Sandra Degroot Performed By: Susy Hanna RVT
== END ==
PROVIDERS: PCP Nurse Practitioner; Referring Provider Nurse Practitioner; Visit Provider Nurse Practitioner
DX: R60.0 Localized edema (principal)
CPT/HCPCS: 93971

== ENCOUNTER → 2020-07-19 13:31 | Outpatient (CLI) | payer MEDICARE, SELFPAY ==
[2019-02-02 11:06] VITALS: BMI 41.8
--- NOTE | 2020-07-19 13:40 | CT_ITS ---
STUDY: CT CHEST WITH CONTRAST REASON FOR EXAM: Female, 69 years old. PULMONARY NODULES RADIATION DOSAGE (If Supplied By Facility): CTDIvol = ( 16.37 ) mGy, DLP = ( 758.23 ) mGycm TECHNIQUE: Transaxial imaging was performed following intravenous administration of IV 100mL Isovue-300. Individualized dose optimization techniques were used for this CT. COMPARISON: 12/15/2018. FINDINGS: The lungs demonstrate emphysematous changes. There is a lobulated right middle lobe mass measuring 3.4 x 3.2 x 3 cm. There is a questionable intraluminal 2 mm nodule in the right middle lobe bronchus, image 63 series 4. There is a 4 mm peripheral nodule in the left lower lobe, image 70 series 4. Normal heart and pericardium. Normal mediastinum. Normal hilar regions. Normal enhanced pulmonary arteries. Calcified aorta arch and descending thoracic aorta. Normal osseous structures. There is no demonstrated abnormality of the visualized upper abdomen. CT/Chest WITH Contrast IMPRESSION: Right lobulated right middle lobe mass, larger than on previous study. Questionable intraluminal nodule of the right middle lobe bronchus. Left lower lobe stable peripheral nodule. Emphysematous changes. Electronically Signed: Frank Vicente DO at 17:18 EDT Tel [phone], Service support ,
[2020-07-19 13:55] LABS: CREATININE FINGERSTICK 1.3 mg/dL (0.55-1.02)
== END ==
PROVIDERS: PCP Nurse Practitioner; Referring Provider Internal Medicine Medical Oncology; Visit Provider Internal Medicine Medical Oncology
DX: R91.8 Other nonspecific abnormal finding of lung field (principal); Z85.3 Personal history of malignant neoplasm of breast
CPT/HCPCS: 71260; Q9967

== ENCOUNTER → 2020-08-17 10:09 | Outpatient (CLI) | payer MEDICARE, SELFPAY ==
[2019-02-02 11:06] VITALS: BMI 41.8
[2020-07-27 14:21] VITALS: BMI 43.0
--- NOTE | 2020-08-17 10:12 | BI_ITS ---
MAMMOGRAPHY - BILATERAL SCREENING REASON FOR EXAM: Female, 69 years old. Routine annual screening examination. PERTINENT HISTORY: Personal history of breast cancer. Prior left lumpectomy. Sister with breast cancer. TECHNIQUE: Digital bilateral breast parker (3D mammographic acquisition) in the CC and MLO projections. 2-D mediolateral oblique (MLO) and craniocaudad (CC) views of both breasts were obtained. CAD: Full Field Digital Mammography with Computer Added Detection was performed. COMPARISON: Comparison is made with prior study dated 06/09/2019 and 11/18/2017. FINDINGS: Breast Composition: There are scattered areas of fibroglandular density. There are no dominant masses or suspicious calcifications. The left breast is smaller than the right. Stable deformity of the left breast secondary to postoperative changes and architectural distortion at the biopsy site in the deep upper lateral portion of the breast. Overlying skin thickening. No other significant abnormalities are identified. There has been no significant change since the prior study. BI/SCRN MAMM (CAD)W/PARKER BILAT IMPRESSION: Stable bilateral screening mammogram. Yearly follow-up mammogram recommended. (A) ASSESSMENT CATEGORY: BIRADS Category 2: Benign. A letter regarding these results will be sent to the patient by the facility within 30 days. Approximately 10% of breast cancers are not detected by mammography. A normal mammogram should not delay biopsy of a clinically suspicious abnormality. [id number] Electronically Signed: Xu Adams MD at 12:18 EDT , Service support ,
== END ==
PROVIDERS: PCP Nurse Practitioner; Referring Provider Nurse Practitioner; Visit Provider Nurse Practitioner
DX: Z12.31 Encounter for screening mammogram for malignant neoplasm of breast (principal)
CPT/HCPCS: 77063; 77067

== ENCOUNTER → 2021-01-23 12:19 | Outpatient (CLI) | payer MEDICARE, SELFPAY ==
[2020-07-27 14:21] VITALS: BMI 43.0
--- NOTE | 2021-01-23 12:23 | CT_ITS ---
EXAM: CT CHEST WITH INTRAVENOUS CONTRAST : 1950 CLINICAL INDICATION: MONITOR LUNG NODULES TECHNIQUE: Helically acquired images were obtained of the chest with intravenous contrast. This CT exam was performed using one or more of the following dose reduction techniques: automated exposure control, adjustment of the mA and/or kV according to patient size, and/or use of iterative reconstruction technique. This report was created using [employer] report generation technology. CONTRAST: IV 100mL Isovue-370 COMPARISON: 07/19/2020 FINDINGS: LUNGS AND PLEURAL SPACES: There are emphysematous changes in the upper lobes. There is a low-density mass in the right middle lobe that measures 3.8 x 2.8 x 2.8 cm on today's examination there is consolidation extending from the lesion to the lung periphery possibly represent atelectasis. There is a stable pleural-based 4 mm nodule in the left lower lobe. No pneumothorax. HEART: Unremarkable. Heart size is normal. No pericardial effusion. MEDIASTINUM: Unremarkable. No mediastinal or hilar adenopathy. Esophagus is unremarkable. No hiatal hernia. THYROID: Unremarkable. No thyroid lesions. BONES/JOINTS: Unremarkable. No suspicious lytic or blastic abnormality. VASCULATURE: Unremarkable. Thoracic aorta is non-dilated. No thoracic aortic dissection. No obvious central pulmonary embolism although this study was not performed with the pulmonary embolism protocol. CT/Chest WITH Contrast IMPRESSION: 1. Stable lobular mass in the right middle lobe however there is surrounding consolidation on today's examination extending to the lung periphery. This may represent atelectasis or pneumonia. 2. Stable emphysematous changes in the lung apices. Individualized dose optimization techniques were used for this CT. at 0305 Reported and signed by: Josh Leslie MD Electronically Signed: Josh Leslie MD at 3:04 EDT Tel , Service support ,
[2021-01-23 12:41] LABS: CREATININE FINGERSTICK 0.8 mg/dL (0.55-1.02); EGFR FINGERSTICK > 60.0000 mL/min (>60)
== END ==
PROVIDERS: PCP Nurse Practitioner; Referring Provider Internal Medicine Medical Oncology; Visit Provider Internal Medicine Medical Oncology
DX: R91.8 Other nonspecific abnormal finding of lung field (principal); Z85.3 Personal history of malignant neoplasm of breast
CPT/HCPCS: 71260; Q9967

== ENCOUNTER 2021-04-18 07:44 | Outpatient (CLI) | payer MEDICARE, SELFPAY ==
--- NOTE | 2021-04-18 07:47 | CT_ITS ---
STUDY: CT CHEST WITHOUT CONTRAST REASON FOR EXAM: Female, 70 years old. LUNG MASS-MONITOR. Prior left lumpectomy. History of breast cancer. RADIATION DOSAGE (If Supplied By Facility): CTDIvol = ( 18.84 ) mGy, DLP = ( 612.08 ) mGycm TECHNIQUE: Transaxial imaging was performed without the administration of intravenous contrast material. Multiplanar coronal and sagittal images were reformatted. Individualized dose optimization techniques were used for this CT. COMPARISON: Comparison is made with prior examination dated 01/23/2021. FINDINGS: Hyperinflation. Emphysematous changes with bullous formation in the upper lobes more prominent in the left lung apex. There is evidence of a scarring along the posterior lateral aspect of the left lung apex. The previously seen mass lesion in the right middle lobe has decreased in size. It presently measures 3.1 cm by 1.6 cm. It is heterogeneous in appearance with partial cavitation along its lateral wall. There is evidence of a linear density extending from the nodule to the overlying pleural surface. No new nodule is seen. Stable 4 mm noncalcified nodule in the peripheral lateral aspect of the left lower lobe as seen on axial image #75. There are calcifications of the coronary arteries. There are multiple small lymph nodes within the mediastinum, which are normal in size and morphology most compatible with reactive lymph hyperplasia. Normal hilar regions. Normal unenhanced pulmonary arteries. There is atherosclerotic calcification of the aortic arch with tortuosity and elongation of the aortic arch and descending thoracic aorta. There are multi-level degenerative changes of the thoracic spine. There is no demonstrated abnormality of the visualized upper abdomen. CT/Chest without Contrast IMPRESSION: Interval decrease in size of the previously seen solid nodule in the right middle lobe. It presently measures 3.1 cm x 1.6 cm. It is partially cavitated. The remainder of the examination is unchanged. Electronically Signed: Xu Adams MD at 10:08 EST , Service support ,
== END 2021-04-18 23:59 | disposition short-term general hospital (02) ==
LOC: CT 07:46
PROVIDERS: PCP Nurse Practitioner; Referring Provider Internal Medicine Medical Oncology; Visit Provider Internal Medicine Medical Oncology
DX: R91.8 Other nonspecific abnormal finding of lung field (principal); Z85.3 Personal history of malignant neoplasm of breast
CPT/HCPCS: 71250

== ENCOUNTER 2021-05-18 11:38 | Outpatient (CLI) | payer MEDICARE, SELFPAY ==
--- NOTE | 2021-05-18 | LES_PTH ---
PATIENT: ZEINAB HULL LOC: [facility]#:[id number] AGE/SX: 70/F ROOM: RE05/18/[address]: Dr. Thomas Charlton MD : 1950 BED: DIS: 05/18/2021 SPEC #: [id number] RECD: 05/18/21 10:32 STATUS: JIN RELaura #: [id number] IAN: 05/18/21 00:[address]: Thomas Charlton DEPT: SURGICAL PATHOLOGY RECD BY: Herve Gore ENTERED: 05/18/21 14:06 SP TYPE: Lesion OTHR DR: Sandra Degroot, TUCK POINTER-Hemanth Tissues: A - Skin of lip, NOS B - Skin of neck, NOS Procedures: Surgery Specimen Level IV HEADER OPERATION: Ablation left neck lesions, excision left lower lip lesion PRE-OP DIAGNOSIS: Neoplasm lip and neck TISSUE SUBMITTED: A ? Left lower lip, B ? Left neck MICROSCOPIC DIAGNOSIS A. Left lower lip lesion, biopsy: Squamous mucosa with subepithelial fibrosis consistent with irritation fibroma. Mild acanthosis. Negative for malignancy. B. Left neck lesion, biopsy: Seborrheic keratosis. MARISSA:negrito 05/19/2021 MICROSCOPIC DESCRIPTION Slides are reviewed. GROSS DESCRIPTION A - Received in fixative is one container labeled with the patient's name and designated left lower lip. The specimen consists of a piece of martinez-white skin measuring 1 x 0.6 x 0.5 cm. The specimen is inked, serially sectioned and submitted entirely in one cassette. B - Received in fixative is one container labeled with the patient's name and designated left neck. The specimen consists of three pieces of uuf-[id number]-hexuv skin measuring in aggregate 0.5 x 0.2 x 0.1 cm. The specimen is totally submitted in one cassette. / MARISSA:negrito 05/18/2021 TC:1 CPT: 08261 x2
== END 2021-05-18 23:59 | disposition home or self-care (01) ==
LOC: LABSPEC 11:39
PROVIDERS: PCP Nurse Practitioner; Visit Provider Surgery
DX: D37.01 Neoplasm of uncertain behavior of lip (principal); D48.7 Neoplasm of uncertain behavior of other specified sites; L83 Acanthosis nigricans; L82.1 Other seborrheic keratosis
CPT/HCPCS: 88305

== ENCOUNTER → 2021-08-22 | Outpatient (CLI) | payer MEDICARE, SELFPAY ==
--- NOTE | 2021-08-22 14:11 | BI_ITS ---
MAMMOGRAPHY - BILATERAL SCREENING REASON FOR EXAM: Female, 70 years old. Routine annual screening examination. PERTINENT HISTORY: Personal history of breast cancer. Prior left lumpectomy and radiation therapy. Sister with breast cancer. TECHNIQUE: Digital bilateral breast parker (3D mammographic acquisition) in the CC and MLO projections. 2-D mediolateral oblique (MLO) and craniocaudad (CC) views of both breasts were obtained. CAD: Full Field Digital Mammography with Computer Added Detection was performed. COMPARISON: Comparison is made with prior study dated 08/17/2020 and 06/09/2019. FINDINGS: Breast Composition: There are scattered areas of fibroglandular density. There are no dominant masses or suspicious calcifications. The patient is status post lumpectomy in the deep upper central portion of the left breast with resultant deformity of the left breast and overlying skin thickening. No other significant abnormalities are identified. There has been no significant change since the prior study. BI/SCRN MAMM (CAD)W/PARKER BILAT IMPRESSION: Stable bilateral screening mammogram. Yearly follow-up mammogram recommended. (A) ASSESSMENT CATEGORY: BIRADS Category 2: Benign. A letter regarding these results will be sent to the patient by the facility within 30 days. Approximately 10% of breast cancers are not detected by mammography. A normal mammogram should not delay biopsy of a clinically suspicious abnormality. [id number] Electronically Signed: Xu Adams MD at 15:09 EDT ,
== END | disposition home or self-care (01) ==
LOC: OPBI 14:08
PROVIDERS: PCP Nurse Practitioner; Visit Provider Internal Medicine
DX: Z12.31 Encounter for screening mammogram for malignant neoplasm of breast (principal); Z85.3 Personal history of malignant neoplasm of breast; Z80.3 Family history of malignant neoplasm of breast
CPT/HCPCS: 77063; 77067

== ENCOUNTER → 2021-10-16 | Outpatient (CLI) | payer MEDICARE, SELFPAY ==
--- NOTE | 2021-10-16 12:51 | CT_ITS ---
STUDY: CT CHEST WITHOUT CONTRAST REASON FOR EXAM: Female, 71 years old. LUNG NODULES- HX OF BREAST CA RADIATION DOSAGE (If Supplied By Facility): CTDIvol = ( 20.35 ) mGy, DLP = ( 728.12 ) mGycm TECHNIQUE: Transaxial imaging was performed without the administration of intravenous contrast material. Multiplanar coronal and sagittal images were reformatted. Individualized dose optimization techniques were used for this CT. COMPARISON: Comparison is made with prior study dated 04/18/2021. FINDINGS: CHEST Hyperinflation. Diffuse emphysematous changes with bullous formation worse in the upper lobes more prominent on the left side. Stable pleural parenchymal scarring along the posterior aspect of the left upper lobe. The previously seen rounded mass lesion in the right middle lobe has decreased in size. Residual linear increased markings with bronchiectasis persist. No significant nodule is seen at this time. There is no demonstrated pleural abnormality. There are calcifications of the coronary arteries. There are multiple small lymph nodes within the mediastinum, which are normal in size and morphology most compatible with reactive lymph hyperplasia. Normal hilar regions. Normal unenhanced pulmonary arteries. There is atherosclerotic calcification of the aortic arch with tortuosity and elongation of the aortic arch and descending thoracic aorta. There are multi-level degenerative changes of the thoracic spine. The patient is status post cholecystectomy. CT/Chest without Contrast IMPRESSION: Interval resolution of the nodular density seen in the right middle lobe. Persistent scarring and bronchiectasis seen at that site. The remainder of the examination is unchanged with evidence of emphysema and bullous formation with scarring in the posterior aspect of the left upper lobe. Electronically Signed: Xu Adams MD at 14:53 EDT ,
== END | disposition home or self-care (01) ==
PROVIDERS: PCP Internal Medicine; Referring Provider Internal Medicine Medical Oncology; Visit Provider Internal Medicine Medical Oncology
DX: R91.8 Other nonspecific abnormal finding of lung field (principal); Z85.3 Personal history of malignant neoplasm of breast
CPT/HCPCS: 71250

== ENCOUNTER 2022-03-16 16:49 | Emergency (ER) | payer OTHER, MEDICARE, SELFPAY ==
[2022-03-16 16:50] VITALS: BP 214/85; PULSE 89; RESP 20; TEMP 35.6; O2SAT 99; BMI 42.0
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
[2022-03-16] MEDS: oxyCODONE 5 MG Tablet PO (17:31)
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
[2022-03-16 18:58] VITALS: BP 157/101
== END 2022-03-16 18:58 | disposition home or self-care (01) ==
PROVIDERS: Emergency Provider Emergency Medicine; PCP Nurse Practitioner Family; Visit Provider Emergency Medicine
DX: S39.012A Strain of muscle, fascia and tendon of lower back, initial encounter (principal); M35.1 Other overlap syndromes; J44.9 Chronic obstructive pulmonary disease, unspecified; I10 Essential (primary) hypertension; M19.90 Unspecified osteoarthritis, unspecified site; L93.2 Other local lupus erythematosus; F17.210 Nicotine dependence, cigarettes, uncomplicated; V43.62XA Car passenger injured in collision with other type car in traffic accident, initial encounter; Z79.899 Other long term (current) drug therapy; Z79.82 Long term (current) use of aspirin; Z79.84 Long term (current) use of oral hypoglycemic drugs
CPT/HCPCS: 71046; 72100; 99283

== ENCOUNTER → 2022-08-23 | Outpatient (CLI) | payer MEDICARE, SELFPAY ==
--- NOTE | 2022-08-23 12:30 | BI_ITS ---
MAMMOGRAPHY - BILATERAL SCREENING REASON FOR EXAM: Female, 71 years old. Routine annual screening examination. PERTINENT HISTORY: Personal history of breast cancer. Prior left lumpectomy and radiation therapy. Sister with breast cancer. TECHNIQUE: Digital bilateral breast parker (3D mammographic acquisition) in the CC and MLO projections. 2-D mediolateral oblique (MLO) and craniocaudad (CC) views of both breasts were obtained. CAD: Full Field Digital Mammography with Computer Added Detection was performed. COMPARISON: Comparison is made with prior study August 22, 2021 and August 17, 2020. FINDINGS: Breast Composition: There are scattered areas of fibroglandular density. There are no dominant masses or suspicious calcifications. Once again, the patient is status post thickening in the deep upper central portion of the left breast with resultant postoperative scarring and breast deformity No other significant abnormalities are identified. There has been no significant change since the prior study. BI/SCRN MAMM (CAD)W/PARKER BILAT IMPRESSION: Stable bilateral screening mammogram. Yearly follow-up mammogram recommended. (A) ASSESSMENT CATEGORY: BIRADS Category 2: Benign. A letter regarding these results will be sent to the patient by the facility within 30 days. Approximately 10% of breast cancers are not detected by mammography. A normal mammogram should not delay biopsy of a clinically suspicious abnormality. [id number] Electronically Signed: Xu Adams MD at 14:27 EDT ,
--- NOTE | 2022-08-23 12:38 | BD_ITS ---
STUDY: DUAL ENERGY X-RAY ABSORPTIOMETRY / DXA REASON FOR EXAM: Female, 71 years old. [id number] TECHNIQUE: Bone Mineral Density (BMD) measurements of lumbar spine and bilateral hips were obtained. COMPARISON: Comparison is made with prior study dated October 12, 2015. FINDINGS: Lumbar Spine (L1-L4): g/cm2 (0.742) / T-score (-2.7) / Z-score (-0.5) Findings are suggestive of osteoporosis with a high fracture risk. Left Femur Total: g/cm2 (0.760) / T-score (-1.5) / Z-score (0.1) Left Femoral Neck: g/cm2 (0.631) / T-score (-2.0) / Z-score (-0.1) Right Femur Total: g/cm2 (0.697) / T-score (-2.0) / Z-score (-0.4) Right Femoral Neck: g/cm2 (0.440) / T-score (-3.7) / Z-score (-1.8) The T-Scores on the most recent prior examination were: Lumbar Spine (L1-L4): There has been worsening of bone density since the previous examination. Left Femur Total: which represents a worsening of 1.8%. Right Femur Total: which represents a worsening of 10.4%. BD/Dexa Bone Density Study IMPRESSION: The patient is considered osteoporotic as outlined below according to World Vincent Organization (WHO) criteria with a high fracture risk. There has been worsening of bone density since the previous examination. Reference Information: The T-score is the number of standard deviations above or below the standard which is normal for young adults at their peak bone mineral density. The World Health Organization (WHO) interprets the T-scores as follows: Above -1 Normal bone density Between -1 and -2.5 Osteopenia Equal to / or below -2.5 Osteoporosis As a practical clinical guideline, osteopenia may be graded as follows: Mild -1 through -1.5 Moderate -1.6 through -2.0 Severe -2.1 through -2.4 The Z-score is the number of standard deviations above or below age-matched controls. A Z-score of less than -1.5 would be considered abnormal. References: 1. NIH Osteoporosis and Related Bone Diseases www osteo.org 2. International Society for Clinical Densitometry www iscd.org 3. National Osteoporosis Foundation www nof.org Electronically Signed: Xu Adams MD at 12:13 EDT ,
== END | disposition home or self-care (01) ==
LOC: OPBD 12:27
PROVIDERS: PCP Nurse Practitioner Family; Referring Provider Nurse Practitioner Family; Visit Provider Nurse Practitioner Family
DX: Z12.31 Encounter for screening mammogram for malignant neoplasm of breast (principal); Z85.3 Personal history of malignant neoplasm of breast; Z78.0 Asymptomatic menopausal state
CPT/HCPCS: 77063; 77067; 77080

== ENCOUNTER → 2022-10-16 | Outpatient (CLI) | payer MEDICARE, SELFPAY ==
--- NOTE | 2022-10-16 13:02 | CT_ITS ---
INDICATION: LUNG NODULES EXAMINATION: - CT Chest W/ Contrast Injection A radiation dose optimization technique was used for this scan. Radiation CTDIvol 14.63 Radiation DLP 675.14 COMPARISON: 04/18/2021 and 01/23/[address] FINDINGS: Contrast enhanced serial CT axial images through the chest with coronal and sagittal reformatted series. IV Contrast dosage and agent: 100 cc Isovue-300 IV. MEDIASTINUM: No acute thoracic aortic abnormality. No pulmonary artery filling defects. Mediastinum is otherwise unremarkable. LUNG PARENCHYMA: Dominant pulmonary nodules: Again is noted lateral left upper lobe scarring with new 22 mm spiculated pulmonary nodule on axial image 22 of series 4. Diffuse emphysematous lung changes. Stable 6 mm subpleural left lower lobe pulmonary nodule. New 8mm lateral right upper lobe pulmonary nodule. PLEURA: No pleural effusion. No pneumothorax. CHEST WALL: Stable appearance of left breast. BONES: Osseous structures are unremarkable for age. UPPER ABDOMEN: Fatty liver. CT/Chest WITH Contrast IMPRESSION: Pulmonary nodules with new 22 mm spiculated pulmonary as above, likely recurrent disease. Electronically Signed: Alexx Gutierrez MD at 6:28 EDT ,
== END | disposition home or self-care (01) ==
LOC: CT 12:59
PROVIDERS: PCP Nurse Practitioner Family; Referring Provider Internal Medicine Medical Oncology; Visit Provider Internal Medicine Medical Oncology
DX: R91.1 Solitary pulmonary nodule (principal)
CPT/HCPCS: 71260; Q9967; A4216

== ENCOUNTER → 2023-01-14 | Outpatient (CLI) | payer MEDICARE, SELFPAY ==
--- NOTE | 2023-01-14 13:25 | CT_ITS ---
EXAM: CT CHEST WITH INTRAVENOUS CONTRAST CLINICAL INDICATION: LUNG NODULES/HX OF BREAST CA TECHNIQUE: Helically acquired images were obtained of the chest with intravenous contrast. This CT exam was performed using one or more of the following dose reduction techniques: automated exposure control, adjustment of the mA and/or kV according to patient size, and/or use of iterative reconstruction technique. CONTRAST: IV 100mL Isovue-300 COMPARISON: 10/16/2022, 10/16/2021, 04/18/2021. FINDINGS: LUNGS AND PLEURAL SPACES: Cystic focus in the right middle lobe in region of previously demonstrated nodule, likely secondary to remote infection or treated malignancy. Diffuse centrilobular emphysematous changes. Apical pleural-parenchymal thickening on the left with spiculated margins spanning a region up to 4.5 cm in maximal diameter. Right upper lobe solitary pulmonary nodule measuring up to approximately 7 mm. This has increased in size since 10/16/2021 (3 mm). Left lower lobe pleural nodule measuring approximately 5 mm is unchanged. Unchanged 5 mm right upper lobe pulmonary nodule. No pneumothorax. HEART: No significant abnormality. Heart size is normal. No pericardial effusion. MEDIASTINUM: No significant abnormality. No mediastinal or hilar adenopathy. Esophagus is unremarkable. No hiatal hernia. THYROID: No significant abnormality. No thyroid lesions. BONES/JOINTS: Degenerative changes of the visualized axial and appendicular skeleton. No lytic or blastic osseous lesions. SOFT TISSUES: Scarring in the left breast. VASCULATURE: Diffuse atherosclerosis of the aorta without evidence of a dissection or aneurysm. No obvious central pulmonary embolism although this study was not performed with the pulmonary embolism protocol. CT/Chest WITH Contrast IMPRESSION: 1. Diffuse centrilobular emphysematous changes. 2. Apical pleural-parenchymal thickening on the left with spiculated margins spanning a region up to 4.5 cm in maximal diameter. This appears similar to the most recent prior examination although has progressed since 04/18/2021. Consider PET/CT and/or tissue sampling. 3. Right upper lobe solitary pulmonary nodule measuring up to approximately 7 mm. This has increased in size since 10/16/2021 (3 mm). Other unchanged nodule. Electronically Signed: Edi Salcedo DO at 19:14 EDT ,
== END | disposition home or self-care (01) ==
LOC: CT 12:41
PROVIDERS: PCP Nurse Practitioner Family; Referring Provider Internal Medicine Medical Oncology; Visit Provider Internal Medicine Medical Oncology
DX: R91.8 Other nonspecific abnormal finding of lung field (principal); Z85.3 Personal history of malignant neoplasm of breast
CPT/HCPCS: 71260; Q9967

== ENCOUNTER → 2023-04-30 | Outpatient (CLI) | payer MEDICARE, SELFPAY ==
--- NOTE | 2023-04-30 14:07 | VDLE_ITS ---
Reason For Study: pain RIGHT LEFT GSV is normal. CFV is compressible, spontaneous, phasic, CFV is compressible, spontaneous, phasic, competent, and demonstrates normal competent and demonstrates normal augmentation. augmentation. FV is compressible, spontaneous, phasic, competent and demonstrates normal augmentation. POP V is compressible, spontaneous, phasic, competent and demonstrates normal augmentation. T/P Trunk is compressible. PTV is compressible. RT PerV is compressible. Procedure This is a venous duplex using B-mode, color flow and spectral Doppler. Exam performed in department. The exam was diagnostic. A preliminary report was called and/or faxed to Haritha Alonso. VL/Venous Duplex US, Unilateral Interpretation Summary Deep veins of the right lower extremity are patent and compressible segmentally . There is no evidence of right lower extremity deep vein thrombosis. Valvular competence henrique ears intact within the proximal deep venous system on the right . The right great saphenous vein a ppears patent and compressible segmentally. The left common femoral vein is patent and compressib le . Ordering Physician: Haritha Alonso Performed By: Tre Sanchez, RVT
== END | disposition home or self-care (01) ==
LOC: CVS 13:55
PROVIDERS: PCP Nurse Practitioner Family; Referring Provider Nurse Practitioner Family; Visit Provider Nurse Practitioner Family
DX: M79.604 Pain in right leg (principal)
CPT/HCPCS: 93971

== ENCOUNTER 2023-05-29 11:33 | Inpatient (IN) | payer MEDICARE, SELFPAY ==
[2023-05-29] VITALS (17 sets, daily range): BP systolic 87–151; BP diastolic 52–73; PULSE 76–114; RESP 17–32; TEMP 35.5–38.8; O2SAT 90–94; BMI 39.6; BMI 37.1
--- NOTE | 2023-05-29 12:16 | EKG12_ITS ---
Test Reason : Blood Pressure : / mmHG Vent. Rate : 099 BPM Atrial Rate : 099 BPM P-R Int : 134 ms QRS Dur : 070 ms QT Int : 316 ms P-R-T Axes : 035 052 059 degrees QTc Int : 405 ms Sinus rhythm with occasional Premature ventricular complexes and Premature atrial complexes Septal infarct , age undetermined Abnormal ECG Confirmed by MICHELLE REAGAN, TEMITOPE ([id number]), deputy editor in chief GERALD BENTLEY ([id number]) on 05/30/2023 8:23:56 AM Referred By: Adi Steele Confirmed By:TEMITOPE MARTINEZ MD
--- NOTE | 2023-05-29 12:18 | EDS_ITS ---
HPI HPI - URI History of Present Illness Chief Complaint: Weakness Informant: patient Onset/Context/Timing Onset: Days Timing: Continuous Current Severity: Mild Maximum Severity: Moderate Associated Symptoms Associated Symptoms: Positive for Shortness of Breath and Nonproductive cough; Negative for Nausea, Vomiting or Diarrhea Narrative Narrative: 72-year-old female history of COPD on 3 L oxygen at home, hypertension, lupus and Parkinson's disease. She has not felt well since this past weekend. She has had generalized weakness and intermittent wheezing. She has had increased sleep and decreased p.o. intake. Denies nausea, vomiting or diarrhea. Had a fever today in triage. Nonproductive cough. No dysuria. Prior similar symptoms: Yes Recent Illness/Hospitalization: No ROS ROS ED ROS Narrative Cough. Wheezing. Generalized weakness. Review of Systems ROS Unobtainable: Denies due to encephalopathy Constitutional Constitutional ED: Reports fever(s) Eyes Eyes: Denies blurry vision ENT ENT ED: Denies ear pain Cardiovascular Cardiovascular: Denies chest pain Respiratory/Chest Respiratory/Chest: Reports cough and dyspnea; Denies sputum Gastrointestinal Gastrointestinal: Denies abdominal pain, diarrhea, nausea or vomiting Genitourinary Genitourinary ED: Denies dysuria or hematuria Musculoskeletal Musculoskeletal: Denies arthralgias or back pain Integumentary Denies abscess or Abrasions Neurologic Neurologic: Denies headache(s) Psychiatric Psychiatric: Denies anxiety Endocrine Endocrinology: Denies cold intolerance Hematologic/Lymphatic Hematologic/Lymphatic: Denies easy bleeding Allergic/Immunologic Allergic/Immunologic ED: Denies mouth swelling, tongue swelling or urticaria PFSH [facility] Medical History Arthritis Asthma COPD (chronic obstructive pulmonary disease) EXCISION STOMACH TUMOR Hypertension Lupus Mixed connective tissue disease Parkinson disease Polyarthropathy RIGHT ANKLE FRACTURE REPAIR Home Medications carbidopa 25 mg-levodopa 100 mg tablet 1 tab PO TID 03/02/14 [History Last Taken 04/29/18 17:00] hydrochlorothiazide 12.5 mg capsule 25 mg PO DAILY 03/02/14 [History Last Taken 04/29/18] tramadol 50 mg tablet 50 mg PO DAILY PRN Pain Score 1-10 03/02/14 [History Last Taken Unknown] glycopyrrolate 9 mcg-formoterol 4.8 mcg HFA aerosol inhaler (Bevespi Aerosphere) 10.7 g IH BID 11/06/16 [History Last Taken Unknown] amlodipine 2.5 mg tablet 5 mg PO DAILY 04/30/18 [History Last Taken 04/29/18] oxybutynin chloride 5 mg tablet 5 - 10 mg PO DAILY 01/25/20 [History Last Taken Unknown] cholecalciferol (vitamin D3) 50 mcg (2,000 unit) capsule 2,000 unit PO DAILY 07/27/20 [History Last Taken Unknown] furosemide 20 mg tablet 20 mg PO DAILY PRN Swelling 07/27/20 [History Last Taken Unknown] hydroxychloroquine 200 mg tablet 200 mg PO BIDCM 07/27/20 [History Last Taken Unknown] potassium chloride 10 mEq tablet,extended release 10 meq PO DAILY PRN when taking Lasix 07/27/20 [History Last Taken Unknown] prednisone 5 mg tablet 5 - 10 mg PO DAILY PRN Lupus flare 07/27/20 [History Last Taken Unknown] tiotropium bromide 2.5 mcg/actuation mist for inhalation 2.5 mcg IH DAILY 07/27/20 [History Last Taken Unknown] Allergy/AdvReac Type Severity Reaction Status Date / Time bromide salts [bromide] AdvReac Hives Verified 05/29/23 11:35 strawberry AdvReac Hives Verified 05/29/23 11:35 Family History Mother Arthritis Diabetes Hypertension Osteoporosis Father Arthritis Heart disease Sister Arthritis Breast cancer Diabetes Hypertension Son Diabetes Other Alzheimer disease Anemia Hyperlipidemia Thyroid disorder Surgical History History of lumpectomy History of lung biopsy History of tubal ligation Hx of cholecystectomy Social History Smoking Status: Current every day smoker tobacco type: cigarettes EXAM Physical Exam Narrative Exam Narrative: 72-year-old female vital signs are stable she does have a fever one 1.8. Does not septic or toxic. Does look mildly dehydrated. H EENT exam dry mucous membranes. Neck nontender. Lungs clear to auscultation bilaterally. Currently no rales rhonchi or wheezing. Equal symmetrical. Dry cough. Heart rate about 100. No murmur. Abdomen soft nontender normal bowel sounds no peritoneal signs. Moving all 4 extremities. Nontender no edema. No rashes. Neurologically she is awake and alert answer questions following commands. Skin unremarkable. Back nontender. Const Vital Signs: 05/29/23 11:35 05/29/23 11:40 05/29/23 11:43 Temperature 101.8 F H 101.8 F H Temperature Source Oral Oral Pulse Rate 114 H 111 H Respiratory Rate 25 H 25 H Respiratory Pattern Tachypnea Blood Pressure 151/59 H 151/59 H Blood Pressure Mean 89 89 Pulse Ox 91 91 Oxygen Delivery Method Nasal Cannula Nasal Cannula Oxygen Flow Rate (L/min) 3 3 05/29/23 11:45 05/29/23 12:13 05/29/23 12:28 Temperature Temperature Source Pulse Rate 100 100 Respiratory Rate 30 H 24 H Respiratory Pattern Tachypnea Blood Pressure 151/59 H Blood Pressure Mean 89 Pulse Ox 91 Oxygen Delivery Method Nasal Cannula Nasal Cannula Oxygen Flow Rate (L/min) 3 3 05/29/23 12:46 05/29/23 13:34 Temperature 98.7 F Temperature Source Oral Pulse Rate 99 88 Respiratory Rate 32 H 26 H Respiratory Pattern Blood Pressure 130/73 H 87/61 L Blood Pressure Mean 92 69 Pulse Ox 92 92 Oxygen Delivery Method Nasal Cannula Nasal Cannula Oxygen Flow Rate (L/min) 3 3 Positive well nourished and well developed; Negative for cachectic or contractures General Appearance ED: well developed and NAD; Negative for cachectic, contractures, cyanotic, diaphoretic or pallor Nutritional Appearance: Negative for cachectic HEENT Reports dry mucous membranes; Denies moist mucous membranes normocephalic and atraumatic Face and Sinus: Negative for sinus tenderness or maxillary instability Mouth ED: Yes dry mucous membranes Mouth: dry mucous membranes Throat: posterior oropharynx normal; Negative for tonsils abnormal or posterior oropharynx abnormal Eyes PERRL and EOMs intact bilaterally General Eye ED: Negative for pale conjunctiva or scleral icterus Neck no lymphadenopathy, supple and no meningeal signs General: Negative for anterior neck swelling or lymphadenopathy Resp normal respiratory effort and clear to auscultation bilaterally Effort and Inspection: Negative for retractions Auscultation: Negative for rales, rhonchi or wheezes Cardio S1 normal heart sound, S2 normal heart sound and no murmurs Rate: regular rate Rhythm: regular rhythm GI non-tender, non-distended and no masses Inspection: Negative for abdominal distention Auscultation: normoactive bowel sounds Palpation: soft; Negative for tender or guarding Back/Spine no CVA tenderness and normal ROM General Back: Negative for CVA tenderness Cervical Spine: Negative for cervical spine tenderness Thoracic Spine / Upper Back: Negative for thoracic spinal tenderness Lumbar Spine / Lower Back: Negative for lumbar spinal tenderness Sacrum: Negative for tenderness Extremity normal to inspection and full ROM General Extremety ED: Negative for cyanosis or tenderness General Extremity: Negative for cyanosis Neuro oriented x3 and CN's II-XII intact bilaterally Sensorium / Orientation: alert, oriented to person, oriented to place and oriented to time; Negative for orientation impaired, lethargic or stuporous Motor Exam: strength 5/5 throughout Psych mental status grossly normal Appearance: Negative for other Attitude: No agitated Mood & Affect: Negative for depressed, anxious or tearful Skin General Skin Exam: Negative for jaundice or pallor Lesions: no lesions Rashes: no rashes Trauma: Negative for abrasion or laceration MDM MDM MDM Narrative Medical decision making narrative: 72-year-old female with COPD, lupus and Parkinson's with fever, cough and generalized weakness. Screening labs. IV fluids, Tylenol for fever. COVID and flu testing. Clinically looks dehydrated. DuoNeb aerosol for her COPD. Repeat exam patient is doing well at 2 PM. She will be started on Rocephin and Zithromax for her pneumonia and UTI. Urine culture will be sent. She will be admitted to the hospital. I have the hospitalist on page. She did have transient hypotension of 87/61. She will be given a second liter of normal saline. Blood cultures will be obtained. Current blood pressure is 115/52. She will be given a second liter of fluid. Hospitalist on page. History & Record Review Discussion w/independent historian: Patient Additional record(s) reviewed:: Prior inpatient record, Prior outpatient record, Prior ED visit and Prior labs Lab Data Attestation: I reviewed the patient's lab results. Lab results narrative: CBC elevated at 35,000. H&H of 12 and 36. Platelets 345. Electrolytes show sodium 125. Gap of 6. BUN of 30 creatinine 1.25 consistent with dehydration. Glucose 186. Lactic acid is elevated 2.9. Urinalysis is positive for nitrites 10-25 red cells. 5-10 white cells. 3+ bacteria so she might have a UTI also. A culture will be sent. Also blood cultures. Labs: Laboratory Results - last 24 hr 05/29/23 05/29/23 05/29/23 12:00 12:20 13:30 WBC 35.8 H* RBC 3.96 L Hgb 12.8 Hct 36.8 L MCV 92.9 MCH 32.3 H MCHC 34.8 RDW Std Deviation 43.8 RDW Coeff of Nasir 12.9 Plt Count 345 MPV 10.3 Immature Gran % (Auto) 2.100 H Neut % (Auto) 92.0 H Lymph % (Auto) 2.3 L [place] % (Auto) 2.9 Eos % (Auto) 0.2 Baso % (Auto) 0.5 Absolute Neuts (auto) 32.9 H Absolute Lymphs (auto) 0.82 L Nucleated RBC % 0 Diff Path Review May foll Sodium 125 L Potassium 3.9 Chloride 90 L Carbon Dioxide 29.0 Anion Gap 6 BUN 30 H Creatinine 1.25 H Estim Creat Clear Calc 47.97 Est GFR (MDRD) Af Amer 54 L Est GFR (MDRD) Non-Af 45 L BUN/Creatinine Ratio 24.0 H Glucose 186 H Lactic Acid 2.9 H* Calcium 9.7 Urine Color Yellow Urine Clarity Cloudy Urine pH 7.0 Ur Specific [place] 1.010 Urine Protein 100 H Urine Glucose (UA) Normal Urine Ketones 15 H Urine Occult Blood 250 H Urine Nitrite Positive H Urine Bilirubin Negative Urine Urobilinogen 4 H Ur Leukocyte Esterase 500 H Urine RBC 10-25 SEEN Urine WBC 5-10 SEEN Ur Squamous Epith Cells 0-5 SEEN Urine Bacteria 3+ Urine Mucus 1+ Radiography Chest X-Ray - ED: 1 View and Read by ED Physician Diagnostic Testing: Clinical Impression(s) from Imaging Studies Chest X-Ray 05/29/23 12:48 IMPRESSION: Heterogeneous consolidation in the right lower lobe with blunting of the right costophrenic angle. Radiographic follow-up recommended. Electronically Signed: Xu Adams MD at 13:01 EST , Rhythm Strip Rhythm Strip: Sinus Rhythm Rate: 99 Ectopy: PVC(s) EKG Initial EKG: Attestation: I personally reviewed and interpreted this EKG as follows: Interpretation: Sinus Rhythm and No Acute Injury Pattern Comments: Normal sinus rhythm rate of 99 no acute signs of MN or ischemia. Occasional PVCs. Critical Care Time Critical Care Time: Yes Critical care time (excluding procedures): 30-74 minutes, Including time spent:, Discussing w/Patient &/or Family/Social Worker, Discussing w/Consultants, Arranging Admission or Transfer, Performing Direct Patient Care at Bedside and - (Critical care time 35 minutes.) Discharge Plan Dx/Rx/DC Orders Clinical Impression: Acute dehydration, Leukocytosis, Sepsis, Acute UTI, Right lower lobe pneumonia, Acute hyponatremia, Transient hypotension Disposition Disposition: Acute Care [facility]
[2023-05-29] MEDS: Ipratropium/Albuterol Sulfate 3 ML AMPUL.NEB INHALATION ×3 (12:28→22:40)
[2023-05-29 12:43] LABS: Absolute Lymphocyte Count 0.82 X10^3/uL (0.83-4.51); Absolute Neutrophil Count 32.9 X10^3/uL (2.0-7.7); Basophil# 0.18 X10^3/uL; Basophil% 0.5 % (0-1); Eosinophil# 0.08 X10^3/uL; Eosinophils% 0.2 % (0-5); Hematocrit 36.8 % (37-47); Hemoglobin 12.8 g/dL (12.0-15.0); Lymphocyte # 0.82 X10^3/ul (0.83-4.51); Lymphocyte % 2.3 % (19-41); Mean Corp Hgb Conc 34.8 g/dL (32-36); Mean Corpuscular Hgb 32.3 pg (27.0-32.0); Mean Corpuscular Volume 92.9 fL (81-99); Mean Platelet Vol. 10.3 fl (6.2-12.0); Monocyte# 1.03 X10^3/uL; Monocyte% 2.9 % (0-10); NRBC Flagged by Analyzer 0 % (0-5); Neutrophil # 32.88 X10^3/uL (2.7-7.7); POSITIVE COUNT YES; POSITIVE DIFFERENTIAL YES; Platelet Count 345 K/mm3 (150-450); RBC Distribution Width CV 12.9 % (11.6-14.6); RBC Distribution Width SD 43.8 fl (35.1-43.9); Red Blood Count 3.96 M/mm3 (4.2-5.4)
[2023-05-29] MEDS: Acetaminophen 500 MG Tablet 1000 MG PO (12:43)
[2023-05-29] MEDS: 0.9% Normal Saline (1000mL) 1,000 ML 1000 ML IV (12:43)
--- NOTE | 2023-05-29 12:48 | RAD_ITS ---
STUDY: X-RAY CHEST REASON FOR EXAM: Female, 72 years old. Cough TECHNIQUE: Single AP portable view of the chest. COMPARISON: Comparison is made with prior study March 16, 2022. FINDINGS: EKG electrodes are seen. Heterogeneous consolidation is seen in the right lower lobe. Radiographic follow-up is recommended. There is blunting of the right costophrenic angle. Increased linear markings at the left lung apex suggestive of scarring. Normal size heart. Normal mediastinum and rachael. Normal visualized pulmonary arteries. Normal visualized aortic arch and descending thoracic aorta. Normal visualized thoracic spine. Normal visualized ribs, clavicles, and shoulders. There is no demonstrated abnormality of the visualized soft tissue structures of the upper abdomen. RAD/Chest 1 View (Portable) IMPRESSION: Heterogeneous consolidation in the right lower lobe with blunting of the right costophrenic angle. Radiographic follow-up recommended. Electronically Signed: Xu Adams MD at 13:01 EST ,
[2023-05-29 12:51] LABS: Differential Indicated SCAN CRITERIA MET; White Blood Count 35.8 K/mm3 (4.4-11.0)
[2023-05-29 12:57] LABS: Anion Gap 6 (5-15); BUN 30 mg/dL (7-18); Calcium,Total 9.7 mg/dL (8.5-10.1); Chloride 90 mmol/L (98-107); Creatinine, Serum 1.25 mg/dL (0.55-1.02); EST Glomerular Filtration Rate 45 mL/min (>60); Est Glom Filt Rate - Afr Amer 54 mL/min (>60); Estimated Creatinine Clearance 47.97 ml/min; Glucose 186 mg/dL (74-106); Potassium 3.9 mmol/L (3.5-5.1); Sodium Level 125 mmol/L (136-145)
[2023-05-29 13:11] LABS: Lactic Acid 2.9 mmol/L (0.4-1.9)
[2023-05-29 13:41] LABS: Color, Urine Yellow (Yellow); Glucose, Dipstick Normal (Normal); Ketone-Dipstick 15 mg/dl (Negative); Leukocyte Esterase-Dipstick 500 /ul (Negative); Nitrite-Dipstick Positive (Negative); Occult Blood-Urine 250 /ul (Negative); Protein-Dipstick 100 mg/dl (Negative); Urine Bilirubin Dipstick Negative (Negative); Urine Clarity Cloudy (Clear); Urine Urobilinogen 4 mg/dl (Normal)
[2023-05-29 13:46] LABS: Red Blood Cells-Urine 10-25 SEEN /hpf (0-5); Squamous Epithelial Cells - UA 0-5 SEEN /hpf (5-10); White Blood Cells 5-10 SEEN /hpf (0-5)
[2023-05-29 13:47] LABS: Bacteria 3+ /hpf (None Seen); Mucous, Urine 1+ /hpf (<or=2+)
[2023-05-29] MEDS: Ceftriaxone 1 GM/50 ML BAG IV (14:28)
[2023-05-29] MEDS: Azithromycin 500 MG in Dextrose 5%-Water (250mL Bag) 250 ML 250 MG IV (14:30)
--- NOTE | 2023-05-29 14:52 | HP.PCM.HOS_ITS ---
HPI - General General Date of Admission: 05/29/23 Date of Service: 05/29/23 Chief Complaint: Weakness and cough and SOB HPI Narrative ZEINAB HULL, is a 72-year-old female history of COPD on 3 L oxygen at home, hypertension, lupus, HTN and Parkinson's disease here 05/29/2023 with intermittent wheezing and generalized weakness worse since this past weekend. Some increased shortness of breath and nonproductive cough as well as feeling more tired and had decreased p.o. intake. Pt appeared clinically dehydrated and had Cr/BUN elevated from baseline at 1.35/30 respectively and Na of 125 which is down from baseline, patient also febrile with temperature of 101.8 with heart rate initially low 1 teens and patient tachypneic with respiratory rate 20s to 30s, pulse ox 91% on her home 3 L. Patient also with white count of 35.8 with left shift and right lower lobe consolidation. Lactic acid 2.9. UA also suggestive of UTI. Patient given a liter of IV fluids and Rocephin and azithromycin and hospitalist contacted for admission. Patient evaluated with family members at bedside, reportedly had been in her usual health but had a busy day on Saturday and then slept most of the day Saturday and has been increasingly weak with cough, increased wheezing and shortness of breath and decreased p.o. intake. Had not noted a fever at home, has had a headache and has some right sided lower chest wall pain over the past couple of days that is new. No swelling in her legs, had a slight itchy rash on the left side of her back it has been improving with supportive measures, no other complaints at this time. [facility] Medical History (Updated 05/29/23 @ 14:[address] Claudine Eason MD) Arthritis Asthma COPD (chronic obstructive pulmonary disease) EXCISION STOMACH TUMOR Hypertension Lupus Mixed connective tissue disease Parkinson disease Polyarthropathy RIGHT ANKLE FRACTURE REPAIR Home Medications carbidopa 25 mg-levodopa 100 mg tablet 1 tab PO TID 03/02/14 [History Last Taken 04/29/18 17:00] hydrochlorothiazide 12.5 mg capsule 25 mg PO DAILY 03/02/14 [History Last Taken 04/29/18] tramadol 50 mg tablet 50 mg PO DAILY PRN Pain Score 1-10 03/02/14 [History Last Taken Unknown] glycopyrrolate 9 mcg-formoterol 4.8 mcg HFA aerosol inhaler (Bevespi Aerosphere) 10.7 g IH BID 11/06/16 [History Last Taken Unknown] amlodipine 2.5 mg tablet 5 mg PO DAILY 04/30/18 [History Last Taken 04/29/18] oxybutynin chloride 5 mg tablet 5 - 10 mg PO DAILY 01/25/20 [History Last Taken Unknown] cholecalciferol (vitamin D3) 50 mcg (2,000 unit) capsule 2,000 unit PO DAILY 07/27/20 [History Last Taken Unknown] furosemide 20 mg tablet 20 mg PO DAILY PRN Swelling 07/27/20 [History Last Taken Unknown] hydroxychloroquine 200 mg tablet 200 mg PO BIDCM 07/27/20 [History Last Taken Unknown] potassium chloride 10 mEq tablet,extended release 10 meq PO DAILY PRN when taking Lasix 07/27/20 [History Last Taken Unknown] prednisone 5 mg tablet 5 - 10 mg PO DAILY PRN Lupus flare 07/27/20 [History Last Taken Unknown] tiotropium bromide 2.5 mcg/actuation mist for inhalation 2.5 mcg IH DAILY 07/27/20 [History Last Taken Unknown] Allergy/AdvReac Type Severity Reaction Status Date / Time bromide salts [bromide] AdvReac Hives Verified 05/29/23 11:35 strawberry AdvReac Hives Verified 05/29/23 11:35 Family History Mother Arthritis Diabetes Hypertension Osteoporosis Father Arthritis Heart disease Sister Arthritis Breast cancer Diabetes Hypertension Son Diabetes Other Alzheimer disease Anemia Hyperlipidemia Thyroid disorder Surgical History History of lumpectomy History of lung biopsy History of tubal ligation Hx of cholecystectomy Social History Smoking Status: Current every day smoker tobacco type: cigarettes ROS ROS Narrative General: Denies fever/chills at home but was febrile here HENT: Has had a headache, denies stuffy nose, denies sore throat EYES: Denies changes in vision Resp: Has had increased cough and shortness of breath Cardiac: Right-sided chest wall pain GI: Denies abdominal pain, denies changes in bowel, denies nausea/vomiting, poor p.o. intake : Denies changes in urination Extremity: Denies swelling MSK: Denies weakness Neuro: Denies any numbness/tingling Heme: Denies any bleeding or bruising Skin: Has had a slight itchy rash on left side of her back that is improving with supportive care Psychiatric: No complaints voiced Vital Signs Vital Signs Vital Signs: 05/29/23 11:35 05/29/23 11:40 05/29/23 11:43 Temperature 101.8 F H 101.8 F H Temperature Source Oral Oral Pulse Rate 114 H 111 H Respiratory Rate 25 H 25 H Respiratory Pattern Tachypnea Blood Pressure 151/59 H 151/59 H Blood Pressure Mean 89 89 Pulse Ox 91 91 Oxygen Delivery Method Nasal Cannula Nasal Cannula Oxygen Flow Rate (L/min) 3 3 05/29/23 11:45 05/29/23 12:13 05/29/23 12:28 Temperature Temperature Source Pulse Rate 100 100 Respiratory Rate 30 H 24 H Respiratory Pattern Tachypnea Blood Pressure 151/59 H Blood Pressure Mean 89 Pulse Ox 91 Oxygen Delivery Method Nasal Cannula Nasal Cannula Oxygen Flow Rate (L/min) 3 3 05/29/23 12:46 05/29/23 13:34 05/29/23 14:29 Temperature 98.7 F 98.7 F Temperature Source Oral Pulse Rate 99 88 87 Respiratory Rate 32 H 26 H 30 H Respiratory Pattern Blood Pressure 130/73 H 87/61 L 115/52 L Blood Pressure Mean 92 69 73 Pulse Ox 92 92 90 Oxygen Delivery Method Nasal Cannula Nasal Cannula Oxygen Flow Rate (L/min) 3 3 Weight Weight: 104.7 kg Body Mass Index (BMI) 39.6 Physical Exam Narrative General: Alert, oriented HEENT: Atraumatic, normocephalic Eyes: Anicteric, normal conjunctiva, extraocular movements grossly intact Neck: Supple Respiratory: Diminished bilaterally and somewhat coarse at right lung base with increased respiratory effort and tachypnea Cardiovascular: Regular rate GI: Soft, nontender, nondistended Extremities: No edema Musculoskeletal: Moving all extremities Neuro: No overt focal neurological deficits Skin: Has faded rash on left side of back and some chronic skin changes in bilateral lower extremities Psych: Cooperative Results Lab / Micro Data 05/29/23 12:20 05/29/23 12:20 Labs: Laboratory Results - last 24 hr 05/29/23 12:00: Lactic Acid 2.9 H* 05/29/23 12:20: WBC 35.8 H*, RBC 3.96 L, Hgb 12.8, Hct 36.8 L, MCV 92.9, MCH 32.3 H, MCHC 34.8, RDW Std Deviation 43.8, RDW Coeff of Nasir 12.9, Plt Count 345, MPV 10.3, Immature Gran % (Auto) 2.100 H, Neut % (Auto) 92.0 H, Lymph % (Auto) 2.3 L, [place] % (Auto) 2.9, Eos % (Auto) 0.2, Baso % (Auto) 0.5, Absolute Neuts (auto) 32.9 H, Absolute Lymphs (auto) 0.82 L, Nucleated RBC % 0, Diff Path Review August, Sodium 125 L, Potassium 3.9, Chloride 90 L, Carbon Dioxide 29.0, Anion Gap 6, BUN 30 H, Creatinine 1.25 H, Estim Creat Clear Calc 47.97, Est GFR (MDRD) Af Amer 54 L, Est GFR (MDRD) Non-Af 45 L, BUN/Creatinine Ratio 24.0 H, Glucose 186 H, Calcium 9.7 05/29/23 13:30: Urine Color Yellow, Urine Clarity Cloudy, Urine pH 7.0, Ur Specific [place] 1.010, Urine Protein 100 H, Urine Glucose (UA) Normal, Urine Ketones 15 H, Urine Occult Blood 250 H, Urine Nitrite Positive H, Urine Bilirubin Negative, Urine Urobilinogen 4 H, Ur Leukocyte Esterase 500 H, Urine RBC 10-25 SEEN, Urine WBC 5-10 SEEN, Ur Squamous Epith Cells 0-5 SEEN, Urine Bacteria 3+, Urine Mucus 1+ Micro: Microbiology 05/29/23 12:20 Mucosa - Nose SARS-CoV-2, Influenza & RSV (PCR) - Final Rhythm Strip Rhythm Strip: Sinus Rhythm Rate: 99 Ectopy: PVC(s) Imaging Radiology Impression Chest X-Ray 05/29/23 12:48 IMPRESSION: Heterogeneous consolidation in the right lower lobe with blunting of the right costophrenic angle. Radiographic follow-up recommended. Electronically Signed: Xu Adams MD at 13:01 EST , Assessment & Plan Assessment/Plan (1) Sepsis: (2) Right lower lobe pneumonia: (3) Tobacco use disorder: (4) Leukocytosis: (5) Acute UTI: (6) Acute hyponatremia: (7) COPD (chronic obstructive pulmonary disease): (8) Lupus: (9) Parkinson disease: PLAN: Plan #CAP w/ concerns for sepsis -Imaging: Chest x-ray with right lower lobe consolidation -Patient with white count of 35.8 with left shift, febrile with temp 101.8, in addition to [place] and respiratory distress with tachypnea and only saturating 91% at rest on home 3 L. Additionally lactic acid elevated 2.9 -DuoNebs and as needed albuterol -Sputum culture, COVID and flu negative, respiratory panel ordered -Urine antigens -Mucinex, I/S -Given severity of presentation will start on Vanco and Zosyn and doxy to cover for atypicals d/t qtc interaction w/ hydroxychloroquin and can de-escalate as applicable, will check MRSA screen -Will obtain blood cultures -Will give IV fluids at 30 cc/kg, received 1 L in ED so will give another 2.5L #Concern for UTI -Given UA -Urine culture sent -Fluids as above -Broad-spectrum antibiotics #Chronic hypoxic resp failure on 3L home O2 -With tachypnea and sats 91% at rest -Nebs -I/s -See #1 #Generalized weakness -Likely 2/2 #1 -Treat underlying condition -PT/OT #[place] -Pt w/ poor PO intake and underlying infxn -IVF -avoid nephrotoxic agents # Acute on chronic hyponatremia -May be due to dehydration, stays chronically low it appears but is 125 today and is usually between 132 and 135 -Patient being hydrated -Will trend BMPs, if not improving or worsening will obtain further workup -Will also hold hydrochlorothiazide #Elevated lactic acid -Likely 2/2 underlying infection -Treat ifxn, trend -IVF #Hypertension -Hold home medications at this time while treating underlying infection and giving IV fluids # Overactive bladder -Continue oxybutynin # Lupus -Continue hydroxychloroquine # Parkinson's disease -Continue home Sinemet #Tobacco use -Advise cessation -Nicotine replacement available if desired #DVT ppx: Heparin subcu Sepsis Attestation Sepsis Alert: Yes Sepsis Attestation: Agree w/Sepsis Possible Source of Sepsis: Pulmonary Sepsis Organ Dysfunction Criteria Present: Lactic Acid > 2 mmol/L Supportive Findings: Febrile, leukocytosis, lactic acid 2.9, [place], resp distress, source of PNA Fluid Resuscitation Fluid resuscitation indicated?: Yes Fluid Resuscitation ordered: 30 ml/kg fluid bolus ordered Sepsis Note Date exam was performed: 05/29/23 Time exam was performed: 15:07 Charges/Coding Visit Charges Inpatient E&M: 69336 Init Hosp L2
--- NOTE | 2023-05-29 14:52 | ED.RN ---
called lab to inquire they received both sets of BC and yes they have
[2023-05-29 16:35] LABS: Reflex Lactate? Y
[2023-05-29] MEDS: 0.9% Normal Saline (1000mL) 1,000 ML 999 ML IV (16:36)
[2023-05-29] MEDS: Piperacil/Tazobactam 3.375 GM in 0.9% Normal Saline (50mL MB+) 50 ML IV ×2 (16:36→21:11)
[2023-05-29] MEDS: 0.9% Normal Saline (1000mL) 1,000 ML 100 ML IV (17:00)
[2023-05-29 17:30] LABS: International Normalized Ratio 1.2; Prothrombin Time (Protime)PT. 15.3 SECONDS (11.7-14.9)
[2023-05-29 17:55] LABS: ALB/GLOB Ratio 0.5 RATIO (0.9-2.4); AST(SGOT) 16 U/L (15-37); Alanine Aminotransfer ALT/SGPT 14 U/L (13-56); Alkaline Phosphatase 114 U/L (45-117); Anion Gap 4 (5-15); BUN 28 mg/dL (7-18); BUN/Creat Ratio 26.2 RATIO (10-20); Calcium,Total 9.1 mg/dL (8.5-10.1); Chloride 94 mmol/L (98-107); Creatinine, Serum 1.07 mg/dL (0.55-1.02); EST Glomerular Filtration Rate 54 mL/min (>60); Est Glom Filt Rate - Afr Amer 65 mL/min (>60); Estimated Creatinine Clearance 54.84 ml/min; Globulin 4.3 g/dL (2.2-4.2); Glucose 211 mg/dL (74-106); Potassium 3.9 mmol/L (3.5-5.1); Protein, Total 6.3 g/dL (6.4-8.2); Sodium Level 128 mmol/L (136-145)
[2023-05-29] MEDS: Vancomycin HCl 2,000 MG in 0.9% Normal Saline (500mL Bag) 500 ML 250 MG IV (18:03)
[2023-05-29] MEDS: Hydroxychloroquine 200 MG Tablet PO (18:04)
--- NOTE | 2023-05-29 20:39 | PCM.RX.CS ---
Consult Antibiotic Management Pharmacy has been consulted to manage selected antibiotic: Vancomycin Type of Intervention Type of Consult: New start Suspected Infection Suspected Infection: Pneumonia Labs Labs: Sodium 128 mmol/L (136-145) L 05/29/23 17:10 Potassium 3.9 mmol/L (3.5-5.1) 05/29/23 17:10 Chloride 94 mmol/L (98-107) L 05/29/23 17:10 Carbon Dioxide 30.0 mmol/L (21.0-32.0) 05/29/23 17:10 Anion Gap 4 (5-15) L 05/29/23 17:10 BUN 28 mg/dL (7-18) H 05/29/23 17:10 Creatinine 1.07 mg/dL (0.55-1.02) H 05/29/23 17:10 Est GFR (MDRD) Af Amer 65 mL/min (>60) 05/29/23 17:10 Est GFR (MDRD) Non-Af 54 mL/min (>60) L 05/29/23 17:10 BUN/Creatinine Ratio 26.2 RATIO (10-20) H 05/29/23 17:10 Glucose 211 mg/dL (74-106) H 05/29/23 17:10 Microbiology Microbiology: Microbiology 05/29/23 12:20 Mucosa - Nose SARS-CoV-2, Influenza & RSV (PCR) - Final Goal Trough Goal Trough: 15-20 mcg/mL Pharmacy Plan for Drug Dosing Pharmacy Plan for Drug Dosing: NEW START IV VANCOMYCIN Consulting Physician: Dr. Eason Indication: RLL pneumonia, UTI Goal Trough: 15-20 SrCr: 1.07 CrCl: 54 mL/min Comments: patient ordered a 2000mg IV x1. administered 05/29 @1803 Vancomycin Dose: Vancomycin 1000mg IV Q12hr to start 05/30/23 @0600 Pending Level: 05/31/23 @0530, prior to 4th total dose of vancomycin Pharmacy Service will continue to monitor and adjust dosing as required.
[2023-05-29] MEDS: Doxycycline 100 MG CAPSULE PO (20:54)
[2023-05-29] MEDS: guaiFENesin 1,200 MG Tablet 1200 MG PO (20:54)
[2023-05-29] MEDS: Heparin Injection (Vial) 5,000 UNIT/ML VIAL 5000 UNIT SC (20:54)
[2023-05-29 23:11] LABS: ALB/GLOB Ratio 0.5 RATIO (0.9-2.4); AST(SGOT) 14 U/L (15-37); Alanine Aminotransfer ALT/SGPT 13 U/L (13-56); Alkaline Phosphatase 133 U/L (45-117); Anion Gap 3 (5-15); BUN 26 mg/dL (7-18); BUN/Creat Ratio 27.1 RATIO (10-20); Calcium,Total 9.1 mg/dL (8.5-10.1); Chloride 97 mmol/L (98-107); Creatinine, Serum 0.96 mg/dL (0.55-1.02); EST Glomerular Filtration Rate 61 mL/min (>60); Est Glom Filt Rate - Afr Amer 74 mL/min (>60); Estimated Creatinine Clearance 61.13 ml/min; Glucose 173 mg/dL (74-106); Potassium 3.6 mmol/L (3.5-5.1); Sodium Level 129 mmol/L (136-145)
[2023-05-30] VITALS (16 sets, daily range): BP systolic 115–151; BP diastolic 57–88; PULSE 77–94; RESP 16–26; TEMP 36.4–37.7; O2SAT 87–95
[2023-05-30] MEDS: Ipratropium/Albuterol Sulfate 3 ML AMPUL.NEB INHALATION ×6 (02:30→23:10)
[2023-05-30 03:11] LABS: Absolute Lymphocyte Count 1.42 X10^3/uL (0.83-4.51); Absolute Neutrophil Count 26.8 X10^3/uL (2.0-7.7); Basophil# 0.15 X10^3/uL; Basophil% 0.5 % (0-1); Eosinophil# 0.02 X10^3/uL; Eosinophils% 0.1 % (0-5); Hematocrit 33.5 % (37-47); Hemoglobin 11.2 g/dL (12.0-15.0); Lymphocyte # 1.42 X10^3/ul (0.83-4.51); Lymphocyte % 4.8 % (19-41); Mean Corp Hgb Conc 33.4 g/dL (32-36); Mean Corpuscular Hgb 31.6 pg (27.0-32.0); Mean Corpuscular Volume 94.6 fL (81-99); Mean Platelet Vol. 9.6 fl (6.2-12.0); Monocyte# 0.91 X10^3/uL; Monocyte% 3.1 % (0-10); NRBC Flagged by Analyzer 0 % (0-5); Neutrophil # 26.82 X10^3/uL (2.7-7.7); Neutrophil % 90.6 % (47-70); POSITIVE DIFFERENTIAL YES; Platelet Count 300 K/mm3 (150-450); RBC Distribution Width CV 12.8 % (11.6-14.6); RBC Distribution Width SD 44.7 fl (35.1-43.9); Red Blood Count 3.54 M/mm3 (4.2-5.4); White Blood Count 29.6 K/mm3 (4.4-11.0)
[2023-05-30 03:17] LABS: Differential Indicated SCAN CRITERIA MET
[2023-05-30 03:37] LABS: ALB/GLOB Ratio 0.4 RATIO (0.9-2.4); AST(SGOT) 14 U/L (15-37); Alanine Aminotransfer ALT/SGPT 14 U/L (13-56); Albumin, Serum 1.9 g/dL (3.2-5.0); Alkaline Phosphatase 123 U/L (45-117); Anion Gap 4 (5-15); BUN 26 mg/dL (7-18); BUN/Creat Ratio 25.5 RATIO (10-20); Calcium,Total 9.4 mg/dL (8.5-10.1); Chloride 96 mmol/L (98-107); Creatinine, Serum 1.02 mg/dL (0.55-1.02); EST Glomerular Filtration Rate 57 mL/min (>60); Est Glom Filt Rate - Afr Amer 68 mL/min (>60); Estimated Creatinine Clearance 57.53 ml/min; Globulin 4.4 g/dL (2.2-4.2); Glucose 137 mg/dL (74-106); Potassium 3.5 mmol/L (3.5-5.1); Protein, Total 6.3 g/dL (6.4-8.2); Sodium Level 130 mmol/L (136-145)
[2023-05-30 04:19] LABS: Magnesium 2.1 mg/dL (1.6-2.6); Thyroid Stim Hormone (TSH) 1.49 uIU/mL (0.358-3.74)
[2023-05-30 04:21] LABS: Differential Comment SCANNED
[2023-05-30] MEDS: Vancomycin IV 1,000 MG/200 ML BAG 200 MG IV ×2 (05:16→17:22)
[2023-05-30] MEDS: Piperacil/Tazobactam 3.375 GM in 0.9% Normal Saline (50mL MB+) 50 ML IV ×3 (05:16→21:19)
[2023-05-30] MEDS: 0.9% Saline Lock 10 ML Syringe IV ×2 (05:17→21:20)
[2023-05-30] MEDS: Heparin Injection (Vial) 5,000 UNIT/ML VIAL 5000 UNIT SC ×3 (05:25→21:12)
[2023-05-30] MEDS: Hydroxychloroquine 200 MG Tablet PO ×2 (09:03→17:22)
[2023-05-30] MEDS: guaiFENesin 1,200 MG Tablet 1200 MG PO ×2 (09:03→21:12)
[2023-05-30] MEDS: Tolterodine Tartrate 2 MG CAP.SA PO (09:03)
--- NOTE | 2023-05-30 10:08 | CASEMGMT ---
GUY MAURO Assessment Face to Face with patient for initial transition planning/care coordination assessment. GUY MAURO introduced self and role at [facility], pt voices understanding. Pt is A&Ox4 and is resting comfortably in bed and is calm. Care providers, pharmacy, and demographics verified. Admitting dx: Sepsis, RRL Pneumonia, UTI LACE Strata: 2 PCP: Hairtha Alonso Specialists: Mykel (Oncology), Zita (for Parkinson's), Zeenat (Senior Electrical Project Manager), Eulogio (Primer Expeditor And Drier), Arely (Ortho) Preferred Pharmacy: [facility] Insurance: MIKEY PRIMETIME Prescription Benefit: Yes LNOK: Eliezer Malave (H), Helen Turpin (APRIL). Pt states that she does not want her other daughter (Manisha Roberts) and her 2 kids (Misti Calles and Donna Rubalcava) notified of pt admission here and wants them blocked from receiving any information regarding the pt. The charge nurse and printer floor covering assistant notified on PCU at this time and they notified registration. Pt updated that nobody will be able to call in and find out information about the pt and that if she wants anyone (like her ) updated then she will need to contact him/them personally. Living Arrangements: Pt lives with her in a single story home with a BM with a chair lift. Pt states there are 3 steps to enter the home but she does not use these. Pt states that she uses the BM entryway that has a flat entrance. ADLs/IADLs: Ind with ADLs, helps with IADLs Transportation: Pt and pt drive DME: Pt states that she wears 3L of Oxygen at night via NC through [employer]. TC to Robert from [email or web address] at this time and she states the pt current order is 2-3L continuous NC. Pt states that she has a pulse ox at home, as well as portable tanks and a concentrator. Pt states that her will bring in the portable tank prior to DC. Pt states that she is a diabetic and has enough supplies to check her BS at home. Pt has a cane that she uses occasionally. Pt states she uses a walker more for in the home. Pt states that she uses a WC when out in the community. Pt states her shower has a GB and chair, and that they are working on making it a walk-in style shower. Pt states they are getting a new toilet soon with a raised seat and GB. HHC/SNF: Denies history or needs. Pt?s goal: Home by tomorrow at the latest. Plan: 6 click is 16. Therapy eval pending. Pt states that she wants to DC today or tomorrow at the latest. Pt refuses SNF, OP therapy, or HHC at this time. Pt states that her daughter, GD, and can help her at home. CM to follow for additional O2 needs. Darshan Aguilar RN CM
--- NOTE | 2023-05-30 11:20 | PN_ITS ---
Subjective Subjective Patient seen and examined. She had no active complaints. She said she felt much better. She denied any fever, chills, cough, chest pain, nausea, vomiting or any other symptoms. Review of systems is otherwise negative. Objective Data Objective Data Vital Signs: Vital Signs Temp Pulse Resp BP Pulse Ox O2 Del Method O2 Flow Rate 98.7 F 93 16 115/63 95 Nasal Cannula 5 05/30/23 10:45 05/30/23 10:45 05/30/23 10:45 05/30/23 10:45 05/30/23 10:45 05/30/23 10:45 05/30/23 10:45 Oxygen Flow Rate (L/min) 5 Oxygen Delivery Method Nasal Cannula Weight: 222 lb 0.017 oz Body Mass Index (BMI) 37.1 Intake & Output: Intake and Output for Last 24 Hours 05/28/23 05/29/23 05/30/23 23:59 23:59 23:59 Intake Total 2895 / 3295 2200 / 2200 Balance 2895 / 3295 2200 / 2200 Lab / Micro Data 05/30/23 03:02 05/30/23 03:02 Labs: Laboratory Results - last 24 hr 05/29/23 12:00: Lactic Acid 2.9 H* 05/29/23 12:20: WBC 35.8 H*, RBC 3.96 L, Hgb 12.8, Hct 36.8 L, MCV 92.9, MCH 32.3 H, MCHC 34.8, RDW Std Deviation 43.8, RDW Coeff of Nasir 12.9, Plt Count 345, MPV 10.3, Immature Gran % (Auto) 2.100 H, Neut % (Auto) 92.0 H, Lymph % (Auto) 2.3 L, [place] % (Auto) 2.9, Eos % (Auto) 0.2, Baso % (Auto) 0.5, Absolute Neuts (auto) 32.9 H, Absolute Lymphs (auto) 0.82 L, Nucleated RBC % 0, Diff Path Review May foll, Sodium 125 L, Potassium 3.9, Chloride 90 L, Carbon Dioxide 29.0, Anion Gap 6, BUN 30 H, Creatinine 1.25 H, Estim Creat Clear Calc 47.97, Est GFR (MDRD) Af Amer 54 L, Est GFR (MDRD) Non-Af 45 L, BUN/Creatinine Ratio 24.0 H, Glucose 186 H, Calcium 9.7 05/29/23 13:30: Urine Color Yellow, Urine Clarity Cloudy, Urine pH 7.0, Ur Specific [place] 1.010, Urine Protein 100 H, Urine Glucose (UA) Normal, Urine Ketones 15 H, Urine Occult Blood 250 H, Urine Nitrite Positive H, Urine Bilir ubin Negative, Urine Urobilinogen 4 H, Ur Leukocyte Esterase 500 H, Urine RBC 10-25 SEEN, Urine WBC 5-10 SEEN, Ur Squamous Epith Cells 0-5 SEEN, Urine Trice teria 3+, Urine Mucus 1+ 05/29/23 17:10: PT 15.3 H, INR 1.2, Sodium 128 L, Potassium 3.9, Chloride 94 L, Carbon Dioxide 30.0, Anion Gap 4 L, BUN 28 H, Creatinine 1.07 H, Estim Creat Clear Calc 54.84, Est GFR (MDRD) Af Amer 65, Est GFR (MDRD) Non-Af 54 L, BUN/Creatinine Ratio 26.2 H, Glucose 211 H, Lactic Acid 2.0, Calcium 9.1, Total Bilirubin 0.90, AST 16, ALT 14, Alkaline Phosphatase 114, Total Protein 6.3 L, Albumin 2.0 L, Globulin 4.3 H, Albumin/Globulin Ratio 0.5 L 05/29/23 22:30: Sodium 129 L, Potassium 3.6, Chloride 97 L, Carbon Dioxide 29.0, Anion Gap 3 L, BUN 26 H, Creatinine 0.96, Estim Creat Clear Calc 61.13, Est GFR (MDRD) Af Amer 74, Est GFR (MDRD) Non-Af 61, BUN/Creatinine Ratio 27.1 H, Glucose 173 H, Calcium 9.1, Total Bilirubin 0.80, AST 14 L, ALT 13, Alkaline Phosphatase 133 H, Total Protein 6.0 L, Albumin 2.0 L, Globulin 4.0, Albumin/Globulin Ratio 0.5 L 05/30/23 03:02: WBC 29.6 H, RBC 3.54 L, Hgb 11.2 L, Hct 33.5 L, MCV 94.6, MCH 31.6, MCHC 33.4, RDW Std Deviation 44.7 H, RDW Coeff of Nasir 12.8, Plt Count 300, MPV 9.6, Immature Gran % (Auto) 0.900, Neut % (Auto) 90.6 H, Lymph % (Auto) 4.8 L, [place] % (Auto) 3.1, Eos % (Auto) 0.1, Baso % (Auto) 0.5, Absolute Neuts (auto) 26.8 H, Absolute Lymphs (auto) 1.42, Nucleated RBC % 0, Differential Comment SCANNED, Sodium 130 L, Potassium 3.5, Chloride 96 L, Carbon Dioxide 30.0, Anion Gap 4 L, BUN 26 H, Creatinine 1.02, Estim Creat Clear Calc 57.53, Est GFR (MDRD) Af Amer 68, Est GFR (MDRD) Non-Af 57 L, BUN/Creatinine Ratio 25.5 H, Glucose 137 H, Calcium 9.4, Magnesium 2.1, Total Bilirubin 0.70, AST 14 L, ALT 14, Alkaline Phosphatase 123 H, Total Protein 6.3 L, Albumin 1.9 L, Globulin 4.4 H, Albumin/Globulin Ratio 0.4 L, TSH 1.49 Micro: Microbiology 05/29/23 13:30 Urine, Catheterized Urine Culture - Preliminary Gram negative stacey 05/29/23 12:00 Blood Culture (Wb) - Right Wrist Bacteria Detection (PCR) - Final Streptococcus pneumo 05/29/23 12:00 Blood Culture (Wb) - Right Wrist Blood Culture - Preliminary 05/29/23 20:35 Mucosa - Nose Respiratory Panel (PCR) - Final 05/29/23 12:20 Mucosa - Nose SARS-CoV-2, Influenza & RSV (PCR) - Final Radiography Diagnostic Testing: Radiology Impression Chest X-Ray 05/29/23 12:48 IMPRESSION: Heterogeneous consolidation in the right lower lobe with blunting of the right costophrenic angle. Radiographic follow-up recommended. Electronically Signed: Xu Adams MD at 13:01 EST , Rhythm Strip Rhythm Strip: Sinus Rhythm Rate: 99 Ectopy: PVC(s) Physical Exam Const alert, oriented x3 and no apparent distress Constitutional Narrative: frail General Appearance: cooperative and well developed HEENT normocephalic, head/scalp atraumatic, moist oral mucous membranes and oropharynx normal Eyes PERRL Neck no lymphadenopathy, supple and no JVD Lymph Lymphatic: no lymphadenopathy noted and no lymphedema noted Resp Resp Narrative: diminished breath sounds bibasally, no wheezes or crackles. On 5L of oxygen. Cardio regular rate, regular rhythm, S1 normal heart sound, S2 normal heart sound and no murmurs GI normal to inspection, nondistended, normoactive bowel sounds, soft to palpation, non-tender and non-distended Extremity normal capillary refill, no clubbing, cyanosis or edema and no calf tenderness General Extremity: no tenderness to palpation of joints or extremities Skin General Skin Exam: no breakdown Neuro CN's II-XII intact bilaterally, no focal motor deficits, no sensory deficits noted and deep tendon reflexes 2+ bilaterally Motor Exam: strength 5/5 throughout and general weakness Psych thought process normal, cooperative and affect normal Appearance: appropriate Assessment & Plan Assessment/Plan (1) Right lower lobe pneumonia: (2) Acute hyponatremia: (3) Acute UTI: PLAN: Plan #Sepsis due to community acquired pneumonia and UTI * CXR showed right lower lobe consolidation. wbc was also elevated at 35. * wbc down to 29 today * on IV vancomycin, zosyn and doxycycline. * blood cultures positive for Strep pneumoniae. Urine culture positive for gram negative rods * will dc vancomycin and doxycycline * #UTI: as above #Chronic hypoxic respiratory failure * on 3L of oxygen at home. * Breathing treatment with bronchodilators. * titrate oxygen to maintain sats >90% * #Debility and weakness * likely due to acute medical condition * PT/OT on board. * fall precautions * #[place]:resovle. Cr is down to 1. #Elevated lactic acid:resolved. Likely due to hypotension. #Hyponatremia:sodium is 130. Hydrate gently with IVF and trend. #Hypertension;BP meds held o/a of hypotension on admission. #History of overactive bladder: on oxybutinin #History of lupus: on hydroxychloroquine #Parkinson's disease: on sinemet #Nicotine dependence: counseled to quit. Nicotine patch 21mg daily DVT prophylaxis: heparin Charges/Coding Visit Charges Inpatient E&M: 22442 Subs Hosp L2
--- NOTE | 2023-05-30 15:15 | CHAPLAIN ---
Type of Pastoral Visit _x__ Initial Visit ___ Follow-up Visit ___ On-call Visit ___ General Patient Visit ___ Spiritual Assessment ___ Family Conference ___ Bereavement ___ Rapid Response ___ Code Blue ___ Other (describe below) Pastoral Care Referral From _x__ Patient ___ Family ___ Nurse ___ Physician ___ Crop Scout ___ Blueprint Clerk ___ Other (describe below) Sacrament/Intervention _x__ Active listening ___ Anointing ___ Christianity ___ Bereavement ___ Communion ___ Charity exploration ___ _x__ Life review _x__ Prayer ___ Reconciliation ___ Sacrament of Sick ___ Supportive presence ___ Wedding ___ Other (describe below) Pastoral Comments patient is welcoming and describes her situation; pt is quite focused on getting out at least by tomorrow morning because she has a hair appointment and a baby shower; pt is family focused and this is a family event; pt reports excellent support from family; pt is member of the [employer] charity and welcomes prayer and presence of nuclear physicist to talk with during this visit
[2023-05-30] MEDS: Carbidopa/Levodopa 25/100 Tablet PO (17:22)
[2023-05-30] MEDS: Budesonide Respules 0.5 MG/2 ML AMPUL.NEB. INHALATION (21:30)
[2023-05-31] VITALS (16 sets, daily range): BP systolic 125–186; BP diastolic 52–87; PULSE 76–98; RESP 16–26; TEMP 35.9–36.9; O2SAT 89–93
[2023-05-31] MEDS: Ipratropium/Albuterol Sulfate 3 ML AMPUL.NEB INHALATION ×6 (03:27→23:04)
[2023-05-31 05:52] LABS: Absolute Lymphocyte Count 1.32 X10^3/uL (0.83-4.51); Absolute Neutrophil Count 9.3 X10^3/uL (2.0-7.7); Basophil# 0.05 X10^3/uL; Basophil% 0.4 % (0-1); Eosinophil# 0.17 X10^3/uL; Eosinophils% 1.4 % (0-5); Hematocrit 32.2 % (37-47); Hemoglobin 10.9 g/dL (12.0-15.0); Lymphocyte # 1.32 X10^3/ul (0.83-4.51); Mean Corp Hgb Conc 33.9 g/dL (32-36); Mean Corpuscular Hgb 31.6 pg (27.0-32.0); Mean Corpuscular Volume 93.3 fL (81-99); Mean Platelet Vol. 9.3 fl (6.2-12.0); Monocyte# 1.06 X10^3/uL; Monocyte% 8.8 % (0-10); NRBC Flagged by Analyzer 0 % (0-5); Neutrophil # 9.29 X10^3/uL (2.7-7.7); Neutrophil % 77.5 % (47-70); Platelet Count 340 K/mm3 (150-450); RBC Distribution Width CV 12.9 % (11.6-14.6); RBC Distribution Width SD 44.3 fl (35.1-43.9); Red Blood Count 3.45 M/mm3 (4.2-5.4)
[2023-05-31] MEDS: Heparin Injection (Vial) 5,000 UNIT/ML VIAL 5000 UNIT SC ×3 (06:01→22:19)
[2023-05-31] MEDS: Piperacil/Tazobactam 3.375 GM in 0.9% Normal Saline (50mL MB+) 50 ML IV ×3 (06:01→22:20)
[2023-05-31] MEDS: Carbidopa/Levodopa 25/100 Tablet PO ×3 (06:02→15:32)
[2023-05-31 06:21] LABS: Anion Gap 5 (5-15); BUN 15 mg/dL (7-18); BUN/Creat Ratio 19.1 RATIO (10-20); Calcium,Total 8.8 mg/dL (8.5-10.1); Chloride 98 mmol/L (98-107); Creatinine, Serum 0.79 mg/dL (0.55-1.02); EST Glomerular Filtration Rate 76 mL/min (>60); Est Glom Filt Rate - Afr Amer 92 mL/min (>60); Estimated Creatinine Clearance 73.35 ml/min; Glucose 150 mg/dL (74-106); Potassium 3.5 mmol/L (3.5-5.1); Sodium Level 132 mmol/L (136-145)
[2023-05-31 06:38] LABS: Vancomycin, Trough Level 14.4 ug/mL (5.0-15.0)
[2023-05-31] MEDS: Vancomycin IV 1,000 MG/200 ML BAG 200 MG IV (06:55)
--- NOTE | 2023-05-31 06:55 | PCM.RX.CS ---
Consult Antibiotic Management Pharmacy has been consulted to manage selected antibiotic: Vancomycin Type of Intervention Type of Consult: Follow-up Prior Doses of Antibiotics Prior Doses of Antibiotics Received/Current Regimen: current dose is vanc 1000mg IV q12h Labs Labs: Sodium 132 mmol/L (136-145) L 05/31/23 05:30 Potassium 3.5 mmol/L (3.5-5.1) 05/31/23 05:30 Chloride 98 mmol/L (98-107) 05/31/23 05:30 Carbon Dioxide 29.0 mmol/L (21.0-32.0) 05/31/23 05:30 Anion Gap 5 (5-15) 05/31/23 05:30 BUN 15 mg/dL (7-18) 05/31/23 05:30 Creatinine 0.79 mg/dL (0.55-1.02) 05/31/23 05:30 Est GFR (MDRD) Af Amer 92 mL/min (>60) 05/31/23 05:30 Est GFR (MDRD) Non-Af 76 mL/min (>60) 05/31/23 05:30 BUN/Creatinine Ratio 19.1 RATIO (10-20) 05/31/23 05:30 Glucose 150 mg/dL (74-106) H 05/31/23 05:30 Vancomycin Trough 14.4 ug/mL (5.0-15.0) 05/31/23 05:30 Microbiology Microbiology: Microbiology 05/30/23 11:00 Urine, Random Legionella Antigen - Final 05/30/23 11:00 Urine, Random Streptococcus pneumoniae Antigen (M - Final 05/30/23 09:05 Sputum, Expectorated/Coughed Gram Stain - Final 05/29/23 13:30 Urine, Catheterized Urine Culture - Preliminary Gram negative stacey 05/29/23 12:00 Blood Culture (Wb) - Right Wrist Bacteria Detection (PCR) - Final Streptococcus pneumo 05/29/23 12:00 Blood Culture (Wb) - Right Wrist Blood Culture - Preliminary 05/29/23 20:35 Mucosa - Nose Respiratory Panel (PCR) - Final 05/29/23 12:20 Mucosa - Nose SARS-CoV-2, Influenza & RSV (PCR) - Final Dosing Weight Weight used for dosin.7 kg Estimated Creatinine Clearance Estimated Creatinine Clearance: 73 ml/min Goal Trough Goal Trough: 15-20 mcg/mL Pharmacy Plan for Drug Dosing Pharmacy Plan for Drug Dosing: The vanc trough drawn at 05:30 today (approximately 12 hours after the previous dose) was 14.4. This is only slightly below goal so recommend to leave patient on the same dose at this time, anticipating that the level will rise into goal range. Will repeat another trough in 2 days per protocol. Pharmacy Service will continue to monitor and adjust dosing as required. Follow-Up Labs Follow-Up Labs: Trough: Vancomycin Date/Time Labs Ordered Labs to be done on [date and time ordered]: 06/02/23 05:30
[2023-05-31] MEDS: 0.9% Saline Lock 10 ML Syringe IV ×2 (06:56→20:24)
[2023-05-31] MEDS: Budesonide Respules 0.5 MG/2 ML AMPUL.NEB. INHALATION ×2 (07:32→19:55)
[2023-05-31 09:14] LABS: Pathologist Review Reviewed
[2023-05-31] MEDS: Tolterodine Tartrate 2 MG CAP.SA PO (09:32)
[2023-05-31] MEDS: guaiFENesin 1,200 MG Tablet 1200 MG PO ×2 (09:32→22:19)
[2023-05-31] MEDS: Hydroxychloroquine 200 MG Tablet PO ×2 (09:32→17:41)
--- NOTE | 2023-05-31 11:28 | PN_ITS ---
Subjective Subjective Patient seen and examined. She said she felt much better today. She denied any fever, chills, cough, chest pain, palpitations, dizziness, nausea, vomiting or any other symptoms. She is now up to 6L of oxygen. Objective Data Objective Data Vital Signs: Vital Signs Temp Pulse Resp BP Pulse Ox O2 Del Method O2 Flow Rate 97.7 F L 79 22 H 135/72 H 92 Nasal Cannula 6 05/31/23 09:27 05/31/23 09:27 05/31/23 09:27 05/31/23 09:27 05/31/23 09:27 05/31/23 09:27 05/31/23 09:27 Oxygen Flow Rate (L/min) 6 Oxygen Delivery Method Nasal Cannula Weight: 222 lb 0.017 oz Body Mass Index (BMI) 37.1 Intake & Output: Intake and Output for Last 24 Hours 05/29/23 05/30/23 05/31/23 23:59 23:59 23:59 Intake Total 2895 / 3295 3040 / 3040 700 / 700 Output Total 200 / 200 Balance 2895 / 3295 2840 / 2840 700 / 700 Lab / Micro Data 05/31/23 05:30 05/31/23 05:30 Labs: Laboratory Results - last 24 hr 05/29/23 12:20: Diff Path Review Reviewed 05/31/23 05:30: WBC 12.0 H, RBC 3.45 L, Hgb 10.9 L, Hct 32.2 L, MCV 93.3, MCH 31.6, MCHC 33.9, RDW Std Deviation 44.3 H, RDW Coeff of Nasir 12.9, Plt Count 340, MPV 9.3, Immature Gran % (Auto) 0.900, Neut % (Auto) 77.5 H, Lymph % (Auto) 11.0 L, [place] % (Auto) 8.8, Eos % (Auto) 1.4, Baso % (Auto) 0.4, Absolute Neuts (auto) 9.3 H, Absolute Lymphs (auto) 1.32, Nucleated RBC % 0, Sodium 132 L, Potassium 3.5, Chloride 98, Carbon Dioxide 29.0, Anion Gap 5, BUN 15, Creatinine 0.79, Estim Creat Clear Calc 73.35, Est GFR (MDRD) Af Amer 92, Est GFR (MDRD) Non-Af 76, BUN/Creatinine Ratio 19.1, Glucose 150 H, Calcium 8.8, Vancomycin Trough 14.4 Micro: Microbiology 05/30/23 09:05 Sputum, Expectorated/Coughed Gram Stain - Final 05/30/23 09:05 Sputum, Expectorated/Coughed Respiratory Culture - Preliminary Presumptive C albicans 05/29/23 13:30 Urine, Catheterized Urine Culture - Final Proteus mirabilis 05/29/23 12:00 Blood Culture (Wb) - Right Wrist Bacteria Detection (PCR) - Final Streptococcus pneumo 05/29/23 12:00 Blood Culture (Wb) - Right Wrist Blood Culture - Preliminary Streptococcus pneumoniae 05/30/23 11:00 Urine, Random Legionella Antigen - Final 05/30/23 11:00 Urine, Random Streptococcus pneumoniae Antigen (M - Final 05/29/23 20:35 Mucosa - Nose Respiratory Panel (PCR) - Final 05/29/23 12:20 Mucosa - Nose SARS-CoV-2, Influenza & RSV (PCR) - Final Rhythm Strip Rhythm Strip: Sinus Rhythm Rate: 99 Ectopy: PVC(s) Physical Exam Const alert, oriented x3 and no apparent distress Constitutional Narrative: frail General Appearance: cooperative and well developed HEENT normocephalic, head/scalp atraumatic, moist oral mucous membranes and oropharynx normal Eyes PERRL Neck no lymphadenopathy, supple and no JVD Lymph Lymphatic: no lymphadenopathy noted and no lymphedema noted Resp Resp Narrative: diminished breath sounds bibasally, no wheezes or crackles. On 6 L of oxygen. Cardio regular rate, regular rhythm, S1 normal heart sound, S2 normal heart sound and no murmurs GI normal to inspection, nondistended, normoactive bowel sounds, soft to palpation, non-tender and non-distended Extremity normal capillary refill, no clubbing, cyanosis or edema and no calf tenderness General Extremity: no tenderness to palpation of joints or extremities Skin General Skin Exam: no breakdown Neuro CN's II-XII intact bilaterally, no focal motor deficits, no sensory deficits noted and deep tendon reflexes 2+ bilaterally Motor Exam: strength 5/5 throughout and general weakness Psych thought process normal, cooperative and affect normal Appearance: appropriate Assessment & Plan Assessment/Plan (1) Right lower lobe pneumonia: (2) Acute hyponatremia: (3) Acute UTI: PLAN: Plan #Sepsis due to community acquired pneumonia and UTI * CXR showed right lower lobe consolidation. wbc was also elevated at 35. * wbc down to 12 today, down from 29. * blood cultures positive for Strep pneumoniae. Urine cultures grew Proteus mirabilis * sputum cultures grew Irma albicans; start on PO fluconazole * #UTI: as above. Urine cultures Proteus mirabilis, sensitive to ceftriaxone. #Hypoxia in the setting of Chronic hypoxic respiratory failure * on 6L of oxygen at home; up from 3L of oxygen. * Breathing treatment with bronchodilators. * titrate oxygen to maintain sats >90% * #Debility and weakness * likely due to acute medical condition * PT/OT on board. * fall precautions * #[place]:resolved. #Elevated lactic acid: resolved. Likely due to hypotension. #Hyponatremia:sodium is up 132. #Hypertension;BP meds held o/a of hypotension on admission. #History of overactive bladder: on oxybutinin #History of lupus: on hydroxychloroquine #Parkinson's disease: on sinemet #Nicotine dependence: counseled to quit. Nicotine patch 21mg daily DVT prophylaxis: heparin Disposition: DC over the next 24-48 hours. Charges/Coding Visit Charges Inpatient E&M: 61910 Subs Hosp L2
[2023-05-31] MEDS: Acetaminophen 325 MG Tablet 650 MG PO (13:46)
[2023-06-01] VITALS (16 sets, daily range): BP systolic 143–174; BP diastolic 63–71; PULSE 82–99; RESP 18–24; TEMP 35.6–36.8; O2SAT 82–97
[2023-06-01] MEDS: Mag Hydrox/Al Hydrox/Simeth 30 ML UDC PO (02:13)
[2023-06-01] MEDS: Benzonatate 100 MG Capsule PO ×2 (02:14→17:05)
[2023-06-01] MEDS: Ipratropium/Albuterol Sulfate 3 ML AMPUL.NEB INHALATION ×6 (03:17→23:11)
[2023-06-01] MEDS: Piperacil/Tazobactam 3.375 GM in 0.9% Normal Saline (50mL MB+) 50 ML IV ×2 (05:55→14:24)
[2023-06-01] MEDS: Heparin Injection (Vial) 5,000 UNIT/ML VIAL 5000 UNIT SC ×3 (05:57→20:30)
[2023-06-01] MEDS: Carbidopa/Levodopa 25/100 Tablet PO ×3 (05:57→16:22)
[2023-06-01 06:03] LABS: Absolute Lymphocyte Count 1.08 X10^3/uL (0.83-4.51); Absolute Neutrophil Count 6.7 X10^3/uL (2.0-7.7); Basophil# 0.06 X10^3/uL; Basophil% 0.7 % (0-1); Eosinophil# 0.23 X10^3/uL; Eosinophils% 2.5 % (0-5); Hemoglobin 11.2 g/dL (12.0-15.0); Lymphocyte # 1.08 X10^3/ul (0.83-4.51); Mean Corp Hgb Conc 32.9 g/dL (32-36); Mean Corpuscular Hgb 31.3 pg (27.0-32.0); Mean Platelet Vol. 9.3 fl (6.2-12.0); Monocyte% 8.9 % (0-10); NRBC Flagged by Analyzer 0 % (0-5); Neutrophil # 6.73 X10^3/uL (2.7-7.7); Neutrophil % 74.5 % (47-70); Platelet Count 372 K/mm3 (150-450); RBC Distribution Width CV 13.1 % (11.6-14.6); RBC Distribution Width SD 46.3 fl (35.1-43.9); Red Blood Count 3.58 M/mm3 (4.2-5.4)
[2023-06-01 06:45] LABS: Anion Gap 3 (5-15); BUN 12 mg/dL (7-18); BUN/Creat Ratio 14.9 RATIO (10-20); Calcium,Total 9.1 mg/dL (8.5-10.1); Chloride 98 mmol/L (98-107); Creatinine, Serum 0.81 mg/dL (0.55-1.02); EST Glomerular Filtration Rate 74 mL/min (>60); Est Glom Filt Rate - Afr Amer 90 mL/min (>60); Estimated Creatinine Clearance 72.45 ml/min; Glucose 148 mg/dL (74-106); Potassium 3.4 mmol/L (3.5-5.1); Sodium Level 134 mmol/L (136-145)
[2023-06-01] MEDS: Budesonide Respules 0.5 MG/2 ML AMPUL.NEB. INHALATION ×2 (07:34→19:50)
[2023-06-01] MEDS: guaiFENesin 1,200 MG Tablet 1200 MG PO ×2 (08:39→20:30)
[2023-06-01] MEDS: Tolterodine Tartrate 2 MG CAP.SA PO (08:39)
[2023-06-01] MEDS: Hydroxychloroquine 200 MG Tablet PO ×2 (08:39→16:22)
[2023-06-01] MEDS: Potassium Chloride Oral Tablet 20 MEQ 40 MEQ PO (08:40)
--- NOTE | 2023-06-01 12:52 | DCINST_ITS ---
Discharge Instructions Diet Discharge Diet: Low fat / Low cholesterol Activity Discharge Activity: Return to Normal Activity Weight Bearing Status: Weight bearing as tolerated Dressing / Incision Call your doctor if you observe: Fever of 101 or Higher, Shortness of breath, Dizziness, Swelling in the ankles, Chest pain and Increased palpitations (irregular heartbeat) Follow Up Care Test Results: Test results from this visit will be discussed in further detail at your follow- up appointment, if applicable. Discharge Plan Admission Admit Date/Time: 05/29/23 14:52 Primary Reason for Your Visit: pneumonia Attending Provider: Val Rowe Primary Care Provider: Haritha Alonso Consulting Providers: Claudine Eason Instructions Patient Instructions: ED Pneumonia (Adult) Discharge Orders/Prescriptions Prescriptions: New amoxicillin-pot clavulanate 875-125 mg tablet 1 tab PO BID Qty: 14 0RF Continued tramadol 50 MG tablet 50 mg PO DAILY PRN (Reason: Pain Score 1-10) hydrochlorothiazide 12.5 MG capsule 25 mg PO DAILY carbidopa-levodopa 1 TABLET tablet 1 tab PO TID Bevespi Aerosphere 10.7 GM HFA aerosol inhaler 10.7 g IH BID oxybutynin chloride 5 MG tablet 5 - 10 mg PO DAILY tiotropium bromide 4 GM mist 2.5 mcg IH DAILY prednisone 5 MG tablet 5 - 10 mg PO DAILY PRN (Reason: Lupus flare) potassium chloride 10 MEQ tablet extended release 10 meq PO DAILY PRN (Reason: when taking Lasix) furosemide 20 MG tablet 20 mg PO DAILY PRN (Reason: Swelling) hydroxychloroquine 200 MG tablet 200 mg PO BIDCM cholecalciferol (vitamin D3) 2,000 UNIT capsule 2,000 unit PO DAILY amlodipine 2.5 MG tablet 5 mg PO DAILY benzonatate 100 mg capsule 100 mg PO TID PRN Patient Comments: TAKE 1 CAPSULE BY MOUTH 2 TO 3 TIMES DAILY NEEDED FOR COUGH plaqenil 200 mg PO BID Referrals / Follow Up: Haritha Alonso, EBONY-C [Primary Care Provider] - Within 2 Weeks Disposition Disposition (needs filled in before D/C Order can be placed): Home, Self Care
--- NOTE | 2023-06-01 12:53 | DS.PCM_ITS ---
Providers Date of Admission: 05/29/23 Date of Discharge: 06/12/23 Primary Care Physician: Haritha Alonso, SURGICAL INSTRUMENT TECHNICIAN-C Reason For Visit: SEPSIS,RRL PNEUMONIA,UTI Diagnosis Discharge Diagnosis (1) Right lower lobe pneumonia: Status: Acute Code(s): J18.9 - Pneumonia, unspecified organism (2) Acute hyponatremia: Status: Acute Code(s): E87.1 - Hypo-osmolality and hyponatremia (3) Acute UTI: Status: Acute Code(s): N39.0 - Urinary tract infection, site not specified Plan #Sepsis due to community acquired pneumonia and UTI * CXR showed right lower lobe consolidation. wbc was also elevated at 35. * wbc down to 12 today, down from 29. * blood cultures positive for Strep pneumoniae. Urine cultures grew Proteus mirabilis * sputum cultures grew Irma albicans; start on PO fluconazole * #UTI: as above. Urine cultures Proteus mirabilis, sensitive to ceftriaxone. #Hypoxia in the setting of Chronic hypoxic respiratory failure * on 6L of oxygen at home; up from 3L of oxygen. * Breathing treatment with bronchodilators. * titrate oxygen to maintain sats >90% * #Debility and weakness * likely due to acute medical condition * PT/OT on board. * fall precautions * #[place]:resolved. #Elevated lactic acid: resolved. Likely due to hypotension. #Hyponatremia:sodium is up 132. #Hypertension;BP meds held o/a of hypotension on admission. #History of overactive bladder: on oxybutinin #History of lupus: on hydroxychloroquine #Parkinson's disease: on sinemet #Nicotine dependence: counseled to quit. Nicotine patch 21mg daily DVT prophylaxis: heparin Disposition: DC over the next 24-48 hours. Medications at Discharge Home Medications carbidopa 25 mg-levodopa 100 mg tablet 1 tab PO TID parkinsons 03/02/14 hydrochlorothiazide 12.5 mg capsule 25 mg PO DAILY 03/02/14 tramadol 50 mg tablet 50 mg PO DAILY PRN Pain Score 1-10 03/02/14 glycopyrrolate 9 mcg-formoterol 4.8 mcg HFA aerosol inhaler (Bevespi Aerosphere) 10.7 g IH BID 11/06/16 amlodipine 2.5 mg tablet 5 mg PO DAILY hypertension 04/30/18 oxybutynin chloride 5 mg tablet 5 - 10 mg PO DAILY pain 01/25/20 cholecalciferol (vitamin D3) 50 mcg (2,000 unit) capsule 2,000 unit PO DAILY deficiency 07/27/20 furosemide 20 mg tablet 20 mg PO DAILY PRN Swelling 07/27/20 hydroxychloroquine 200 mg tablet 200 mg PO BIDCM arthritis 07/27/20 potassium chloride 10 mEq tablet,extended release 10 meq PO DAILY PRN when sofía ing Lasix 07/27/20 prednisone 5 mg tablet 5 - 10 mg PO DAILY PRN Lupus flare 07/27/20 tiotropium bromide 2.5 mcg/actuation mist for inhalation 2.5 mcg IH DAILY 07/27/20 benzonatate 100 mg capsule 100 mg PO TID PRN cough 05/29/23 plaqenil 200 mg PO BID arthritis 05/29/23 amoxicillin 875 mg-potassium clavulanate 125 mg tablet 1 tab PO BID #14 tabs 06/01/23 fluconazole 100 mg tablet 100 mg PO DAILY #5 tabs 06/02/23 Hospital Course Operations None Procedures None Summary of Care Provided Minutes Spent on Discharge: 55 Hospital Course: Patient is a 72 y/o male with a PMH as outlined who was admitted via ED on 05/29/2023 with a complaint of weakness, cough and shortness of breath which had been going on for ~ 3-4 days prior to admission. She had a cough which was nonproductive. Cr was also elevated. Sodium was 125. She was febrile with temperature 108. She was also tachypneic and was hypoxic. Lactic acid was elevated. Her wbc was elevated at 3 and CXR showed right lower lobe consolidation. She was admitted and managed for sepsis due to right lower lobe pneumonia. She was started on IV ceftriaxone and azithromycin. She was hydrated with IVF normal saline. Hyponatremia resolved and lactic acidosis also resolved. Her white cell count trended down. Blood cultures was positive for strep pneumonia. Urine cultures grew Proteus mirabilis. Patient's breathing improved and she was weaned down to 3 L of oxygen. However with ambulation she required up to 6 L of oxygen. She says she usually wore 3 to 4 L of oxygen at home. Urine cultures were also positive for Proteus mirabilis which was also sensitive to amoxicillin. Patient was discharged on 06/02/2023. She was discharged with a prescription for Augmentin for 1 week. Patient required 6 L of oxygen. She is follow-up with her primary care doctor within 1 to 2 weeks. Of note, sputum cultures were also positive for Irma. She was therefore discharged on PO fluconazole 100mg daily x 5 days. Patient seen and examined prior to discharge. She felt well and had no complaints. She had an uneventful night. Review of systems otherwise negative. Labs and vitals reviewed. Home medication reviewed and reconciled. Physical Exam Const alert, oriented x3 and no apparent distress Constitutional Narrative: frail General Appearance: cooperative, comfortable, well kempt and well developed HEENT normocephalic, head/scalp atraumatic, hearing grossly normal bilaterally, moist oral mucous membranes and oropharynx normal Mouth: oral and palatal mucosa normal Eyes PERRL and EOMs intact bilaterally Neck no lymphadenopathy, supple and no JVD Lymph Lymphatic: no lymphadenopathy noted and no lymphedema noted Resp Resp Narrative: diminished breath sounds bibasally, no wheezes or crackles. On 3 L of oxygen. Cardio regular rate, regular rhythm, S1 normal heart sound, S2 normal heart sound and no murmurs GI normal to inspection, nondistended, normoactive bowel sounds, soft to palpation, non-tender and non-distended Extremity normal capillary refill, no clubbing, cyanosis or edema and no calf tenderness General Extremity: no tenderness to palpation of joints or extremities Skin General Skin Exam: no breakdown Neuro CN's II-XII intact bilaterally, no focal motor deficits, no sensory deficits noted and deep tendon reflexes 2+ bilaterally Motor Exam: strength 5/5 throughout and general weakness Psych thought process normal, cooperative and affect normal Appearance: appropriate Weight / BMI Weight Weight: 222 lb 0.017 oz Body Mass Index (BMI) 37.1 ABG / Lab / Microbiology Data 06/02/23 05:34 06/02/23 05:34 Laboratory: Laboratory Results - last 24 hr 06/01/23 04:46: WBC 9.0, RBC 3.58 L, Hgb 11.2 L, Hct 34.0 L, MCV 95.0, MCH 31.3, MCHC 32.9, RDW Std Deviation 46.3 H, RDW Coeff of Nasir 13.1, Plt Count 372, MPV 9.3, Immature Gran % (Auto) 1.400 H, Neut % (Auto) 74.5 H, Lymph % (Auto) 12.0 L , [place] % (Auto) 8.9, Eos % (Auto) 2.5, Baso % (Auto) 0.7, Absolute Neuts (auto) 6.7, Absolute Lymphs (auto) 1.08, Nucleated RBC % 0, Sodium 134 L, Potassium 3.4 L, Chloride 98, Carbon Dioxide 33.0 H, Anion Gap 3 L, BUN 12, Creatinine 0.81, Estim Creat Clear Calc 72.45, Est GFR (MDRD) Af Amer 90, Est GFR (MDRD) Non-Af 74, BUN/Creatinine Ratio 14.9, Glucose 148 H, Calcium 9.1 Microbiology: Microbiology 05/30/23 09:05 Sputum, Expectorated/Coughed Gram Stain - Final 05/30/23 09:05 Sputum, Expectorated/Coughed Respiratory Culture - Final Presumptive C albicans 05/29/23 12:00 Blood Culture (Wb) - Right Wrist Bacteria Detection (PCR) - Final Streptococcus pneumo 05/29/23 12:00 Blood Culture (Wb) - Right Wrist Blood Culture - Final Streptococcus pneumoniae 05/29/23 13:30 Urine, Catheterized Urine Culture - Final Proteus mirabilis 05/30/23 11:00 Urine, Random Legionella Antigen - Final 05/30/23 11:00 Urine, Random Streptococcus pneumoniae Antigen (M - Final 05/29/23 20:35 Mucosa - Nose Respiratory Panel (PCR) - Final 05/29/23 12:20 Mucosa - Nose SARS-CoV-2, Influenza & RSV (PCR) - Final D/C Instructions Discharge Diet: Low fat / Low cholesterol Discharge Activity: Return to Normal Activity Weight Bearing Status: Weight bearing as tolerated Call your doctor if you observe: Fever of 101 or Higher, Shortness of breath, Dizziness, Swelling in the ankles, Chest pain and Increased palpitations (irregular heartbeat) Meaningful Use Info Meaningful Use Diagnoses (Choose all that apply): None applicable Discharge Plan Admission Admit Date/Time: 05/29/23 14:52 Primary Reason for Your Visit: pneumonia Attending Provider: Val Rowe Primary Care Provider: Haritha Alonso Consulting Providers: Claudine Eason Instructions Patient Instructions: ED Pneumonia (Adult) Additional Instructions / Restrictions: use oxygen 6L for shortness of breath as needed with ambulation Discharge Orders/Prescriptions Prescriptions: New amoxicillin-pot clavulanate 875-125 mg tablet 1 tab PO BID Qty: 14 0RF fluconazole 100 mg tablet 100 mg PO DAILY Qty: 5 0RF Continued tramadol 50 MG tablet 50 mg PO DAILY PRN (Reason: Pain Score 1-10) hydrochlorothiazide 12.5 MG capsule 25 mg PO DAILY carbidopa-levodopa 1 TABLET tablet 1 tab PO TID Bevespi Aerosphere 10.7 GM HFA aerosol inhaler 10.7 g IH BID oxybutynin chloride 5 MG tablet 5 - 10 mg PO DAILY tiotropium bromide 4 GM mist 2.5 mcg IH DAILY prednisone 5 MG tablet 5 - 10 mg PO DAILY PRN (Reason: Lupus flare) potassium chloride 10 MEQ tablet extended release 10 meq PO DAILY PRN (Reason: when taking Lasix) furosemide 20 MG tablet 20 mg PO DAILY PRN (Reason: Swelling) hydroxychloroquine 200 MG tablet 200 mg PO BIDCM cholecalciferol (vitamin D3) 2,000 UNIT capsule 2,000 unit PO DAILY amlodipine 2.5 MG tablet 5 mg PO DAILY benzonatate 100 mg capsule 100 mg PO TID PRN Patient Comments: TAKE 1 CAPSULE BY MOUTH 2 TO 3 TIMES DAILY NEEDED FOR COUGH plaqenil 200 mg PO BID Referrals / Follow Up: Haritha Alonso SURGICAL INSTRUMENT TECHNICIAN-C [Primary Care Provider] - Within 2 Weeks Disposition Disposition (needs filled in before D/C Order can be placed): Home, Self Care Charges/Coding Visit Charges Inpatient E&M: 66321 Disch Hosp >30min
[2023-06-01] MEDS: 0.9% Saline Lock 10 ML Syringe IV (14:24)
--- NOTE | 2023-06-01 14:28 | PN_ITS ---
Subjective Subjective Patieint seen and examined. She had no active complaints. She is on 3L oxygen. Review of systems otherwise negative. She had walking pulse ox which showed that she required 6 L of oxygen show discharge canceled. She has otherwise remained hemodynamically stable. Objective Data Objective Data Vital Signs: Vital Signs Temp Pulse Resp BP Pulse Ox O2 Del Method O2 Flow Rate 98.0 F 88 20 H 160/63 H 89 Nasal Cannula 3 06/01/23 08:00 06/01/23 10:44 06/01/23 10:44 06/01/23 08:00 06/01/23 10:27 06/01/23 10:00 06/01/23 10:27 Oxygen Flow Rate (L/min) [ 6 AMBULATING with Oxygen #3] Oxygen Flow Rate (L/min) [ 4 AMBULATING with Oxygen #2] Oxygen Flow Rate (L/min) [ 3 AMBULATING with Oxygen #1] Oxygen Flow Rate (L/min) [At 3 REST with Oxygen] Oxygen Flow Rate (L/min) 3 Oxygen Delivery Method Nasal Cannula Weight: 222 lb 0.017 oz Body Mass Index (BMI) 37.1 Intake & Output: Intake and Output for Last 24 Hours 05/30/23 05/31/23 06/01/23 23:59 23:59 23:59 Intake Total 3040 / 3040 1450 / 1650 660 / 660 Output Total 200 / 200 200 / 200 Balance 2840 / 2840 1450 / 1450 460 / 460 Lab / Micro Data 06/01/23 04:46 06/01/23 04:46 Labs: Laboratory Results - last 24 hr 06/01/23 04:46: WBC 9.0, RBC 3.58 L, Hgb 11.2 L, Hct 34.0 L, MCV 95.0, MCH 31.3, MCHC 32.9, RDW Std Deviation 46.3 H, RDW Coeff of Nasir 13.1, Plt Count 372, MPV 9.3, Immature Gran % (Auto) 1.400 H, Neut % (Auto) 74.5 H, Lymph % (Auto) 12.0 L , [place] % (Auto) 8.9, Eos % (Auto) 2.5, Baso % (Auto) 0.7, Absolute Neuts (auto) 6.7, Absolute Lymphs (auto) 1.08, Nucleated RBC % 0, Sodium 134 L, Potassium 3.4 L, Chloride 98, Carbon Dioxide 33.0 H, Anion Gap 3 L, BUN 12, Creatinine 0.81, Estim Creat Clear Calc 72.45, Est GFR (MDRD) Af Amer 90, Est GFR (MDRD) Non-Af 74, BUN/Creatinine Ratio 14.9, Glucose 148 H, Calcium 9.1 Micro: Microbiology 05/30/23 09:05 Sputum, Expectorated/Coughed Gram Stain - Final 05/30/23 09:05 Sputum, Expectorated/Coughed Respiratory Culture - Final Presumptive C albicans 05/29/23 12:00 Blood Culture (Wb) - Right Wrist Bacteria Detection (PCR) - Final Streptococcus pneumo 05/29/23 12:00 Blood Culture (Wb) - Right Wrist Blood Culture - Final Streptococcus pneumoniae 05/29/23 13:30 Urine, Catheterized Urine Culture - Final Proteus mirabilis 05/30/23 11:00 Urine, Random Legionella Antigen - Final 05/30/23 11:00 Urine, Random Streptococcus pneumoniae Antigen (M - Final 05/29/23 20:35 Mucosa - Nose Respiratory Panel (PCR) - Final 05/29/23 12:20 Mucosa - Nose SARS-CoV-2, Influenza & RSV (PCR) - Final Rhythm Strip Rhythm Strip: Sinus Rhythm Rate: 99 Ectopy: PVC(s) Physical Exam Const alert, oriented x3 and no apparent distress Constitutional Narrative: frail General Appearance: cooperative and well developed HEENT normocephalic, head/scalp atraumatic, moist oral mucous membranes and oropharynx normal Eyes PERRL and EOMs intact bilaterally Neck no lymphadenopathy, supple and no JVD Lymph Lymphatic: no lymphadenopathy noted and no lymphedema noted Resp Resp Narrative: diminished breath sounds bibasally, no wheezes or crackles. On 3 L of oxygen. Cardio regular rate, regular rhythm, S1 normal heart sound, S2 normal heart sound and no murmurs GI normal to inspection, nondistended, normoactive bowel sounds, soft to palpation, non-tender and non-distended Extremity normal capillary refill, no clubbing, cyanosis or edema and no calf tenderness General Extremity: no tenderness to palpation of joints or extremities Skin General Skin Exam: no breakdown Neuro CN's II-XII intact bilaterally, no focal motor deficits, no sensory deficits noted and deep tendon reflexes 2+ bilaterally Motor Exam: strength 5/5 throughout and general weakness Psych thought process normal, cooperative and affect normal Appearance: appropriate Assessment & Plan Assessment/Plan (1) Right lower lobe pneumonia: (2) Acute hyponatremia: (3) Acute UTI: PLAN: Plan #Sepsis due to community acquired pneumonia and UTI * CXR showed right lower lobe consolidation. wbc was also elevated at 35. * wbc is down to 9. * blood cultures positive for Strep pneumoniae. Urine cultures grew Proteus mirabilis * sputum cultures grew Irma albicans; start on PO fluconazole * #UTI: as above. Urine cultures Proteus mirabilis, sensitive to ceftriaxone. #Hypoxia in the setting of Chronic hypoxic respiratory failure * on 3L of oxygen by nasal canula at home; however she required 6L of oxygen with walking pulse today * Breathing treatment with bronchodilators. * titrate oxygen to maintain sats >90% * #Debility and weakness * likely due to acute medical condition * PT/OT on board. * fall precautions * #[place]:resolved. #Elevated lactic acid: resolved. Likely due to hypotension. #Hyponatremia:resolving. Sodium is up to 134. #Hypertension;BP meds held o/a of hypotension on admission. Will resume BP meds as BP is up. #History of overactive bladder: on oxybutinin #History of lupus: on hydroxychloroquine #Parkinson's disease: on sinemet #Nicotine dependence: counseled to quit. Nicotine patch 21mg daily DVT prophylaxis: heparin Disposition: DC over the next 24-48 hours once oxygen requirements improve Charges/Coding Visit Charges Inpatient E&M: 64635 Subs Hosp L2
[2023-06-01] MEDS: Amox/Clavulanate 875 MG Tablet PO (20:30)
[2023-06-02] VITALS (14 sets, daily range): BP systolic 155–174; BP diastolic 66–81; PULSE 87–93; RESP 20–24; TEMP 36.7–37.1; O2SAT 86–95
[2023-06-02] MEDS: traMADol 50 MG Tablet PO (01:43)
[2023-06-02] MEDS: Albuterol 2.5 MG/3 ML VIAL.NEB. INHALATION (01:49)
[2023-06-02] MEDS: Ipratropium/Albuterol Sulfate 3 ML AMPUL.NEB INHALATION ×3 (04:03→10:52)
[2023-06-02] MEDS: Heparin Injection (Vial) 5,000 UNIT/ML VIAL 5000 UNIT SC (06:11)
[2023-06-02] MEDS: Carbidopa/Levodopa 25/100 Tablet PO ×2 (06:11→11:48)
[2023-06-02 06:21] LABS: Absolute Lymphocyte Count 0.99 X10^3/uL (0.83-4.51); Absolute Neutrophil Count 8.7 X10^3/uL (2.0-7.7); Basophil# 0.07 X10^3/uL; Basophil% 0.6 % (0-1); Eosinophil# 0.22 X10^3/uL; Hematocrit 35.9 % (37-47); Hemoglobin 11.6 g/dL (12.0-15.0); Lymphocyte # 0.99 X10^3/ul (0.83-4.51); Mean Corp Hgb Conc 32.3 g/dL (32-36); Mean Corpuscular Hgb 31.1 pg (27.0-32.0); Mean Corpuscular Volume 96.2 fL (81-99); Mean Platelet Vol. 9.1 fl (6.2-12.0); Monocyte# 0.86 X10^3/uL; Monocyte% 7.8 % (0-10); NRBC Flagged by Analyzer 0 % (0-5); Neutrophil # 8.68 X10^3/uL (2.7-7.7); Neutrophil % 79.1 % (47-70); Platelet Count 432 K/mm3 (150-450); RBC Distribution Width CV 13.3 % (11.6-14.6); RBC Distribution Width SD 47.5 fl (35.1-43.9); Red Blood Count 3.73 M/mm3 (4.2-5.4)
[2023-06-02] MEDS: Budesonide Respules 0.5 MG/2 ML AMPUL.NEB. INHALATION (06:51)
[2023-06-02 07:00] LABS: Anion Gap 3 (5-15); BUN 13 mg/dL (7-18); BUN/Creat Ratio 16.2 RATIO (10-20); Chloride 100 mmol/L (98-107); EST Glomerular Filtration Rate 75 mL/min (>60); Est Glom Filt Rate - Afr Amer 91 mL/min (>60); Estimated Creatinine Clearance 73.35 ml/min; Glucose 127 mg/dL (74-106); Potassium 4.3 mmol/L (3.5-5.1); Sodium Level 131 mmol/L (136-145)
[2023-06-02] MEDS: Amox/Clavulanate 875 MG Tablet PO (08:38)
[2023-06-02] MEDS: Fluconazole 100 MG Tablet PO (08:38)
[2023-06-02] MEDS: guaiFENesin 1,200 MG Tablet 1200 MG PO (08:38)
[2023-06-02] MEDS: Hydroxychloroquine 200 MG Tablet PO (08:39)
[2023-06-02] MEDS: Tolterodine Tartrate 2 MG CAP.SA PO (08:39)
[2023-06-02] MEDS: Metoprolol Tartrate 25 MG Tablet PO (08:42)
[2023-06-02] MEDS: amLODIPine 5 MG Tablet PO (08:42)
[2023-06-02] MEDS: Potassium Chloride Oral Tablet 10 MEQ PO (08:42)
== END 2023-06-02 14:34 | disposition skilled nursing facility (03) | DRG 871 ==
LOC: ED 14:42 → PCU 15:18
PROVIDERS: Admitting Provider Internal Medicine; Emergency Provider Emergency Medicine; PCP Nurse Practitioner Family; Visit Provider Student in an Organized Health Care Education/Training Program
DX: A41.9 Sepsis, unspecified organism (principal); J18.9 Pneumonia, unspecified organism; J96.11 Chronic respiratory failure with hypoxia; J44.0 Chronic obstructive pulmonary disease with (acute) lower respiratory infection; E87.1 Hypo-osmolality and hyponatremia; N17.9 Acute kidney failure, unspecified; N39.0 Urinary tract infection, site not specified; G20.A1 Parkinson's disease without dyskinesia, without mention of fluctuations; Z99.81 Dependence on supplemental oxygen; I10 Essential (primary) hypertension; E86.0 Dehydration; F17.210 Nicotine dependence, cigarettes, uncomplicated; N32.81 Overactive bladder; R03.1 Nonspecific low blood-pressure reading; R53.81 Other malaise; B96.4 Proteus (mirabilis) (morganii) as the cause of diseases classified elsewhere
CPT/HCPCS: 36415; 71045; 80048; 80053; 80202; 81001; 83605; 83735; 84443; 85025; 85610; 87040; 87070; 87077; 87081; 87086; 87088; 87149; 87186; 87205; 87449; 87631; 87633; 87641; 93005; 94640; 94668; 94762; 97116; 97162; 97166; 97530; 97535; 99252; 99285; 99406; J7030; J7040; P9612; A4216; G0463

== ENCOUNTER 2023-06-03 22:54 | Inpatient (IN) | payer MEDICARE, SELFPAY ==
[2023-06-03 22:55] VITALS: BP 145/60; PULSE 89; RESP 32; TEMP 36.6; O2SAT 95
[2023-06-03 22:57] VITALS: BP 157/53; PULSE 90; RESP 35; TEMP 36.1; O2SAT 93; O2SAT 95; BMI 37.3
[2023-06-03 23:05] VITALS: BP 145/60; PULSE 87; RESP 16; TEMP 36.6; O2SAT 94
--- NOTE | 2023-06-03 23:14 | EKG12_ITS ---
Test Reason : SOB Blood Pressure : / mmHG Vent. Rate : 088 BPM Atrial Rate : 088 BPM P-R Int : 158 ms QRS Dur : 072 ms QT Int : 354 ms P-R-T Axes : 046 052 062 degrees QTc Int : 428 ms Sinus rhythm with Premature supraventricular complexes Low voltage QRS Borderline ECG Confirmed by RADHA REAGAN, ANOOP ([id number]), associate editor GERALD BENTLEY ([id number]) on 06/10/2023 9:58:53 AM Referred By: Confirmed By:VIANNEY GARCIA MD
--- NOTE | 2023-06-03 23:23 | EX.ED.DYSGE1 ---
HPI History of Present Illness Chief Complaint: Fatigue Informant: patient and spouse/S.O. Narrative Narrative: Patient is 72-year-old female with history of COPD (on 3 to 4 L at baseline), lupus, proximal disease and recent admission for bacteremia, hyponatremia, right lower lobe pneumonia and urinary tract infection was discharged yesterday. Patient was discharged on 6 L of oxygen, Augmentin and fluconazole based on culture reports. States has been weak since she has been home but couple hours prior to arrival she started to have a hard time breathing and became acutely short of breath. also notes she has not eating or drinking much today at all. When EMS arrived patient was placed on a nonrebreather. And also notes that she has been intermittently confused but patient denies this. When asked patient why she is here she states if that was given diet home . No report of any recent fevers. Patient have an episode of diarrhea today however spouse contributes that to one of her Parkinson's medicine she received in the hospital which causes this for her. Patient denies any chest pain, abdominal pain or increased leg swelling. No other complaints or concerns reported at this time. [facility] Medical History Arthritis Asthma COPD (chronic obstructive pulmonary disease) EXCISION STOMACH TUMOR Hypertension Lupus Mixed connective tissue disease Parkinson disease Polyarthropathy RIGHT ANKLE FRACTURE REPAIR Home Medications carbidopa 25 mg-levodopa 100 mg tablet 1 tab PO TID parkinsons 03/02/14 [History Last Taken 05/29/23] hydrochlorothiazide 12.5 mg capsule 25 mg PO DAILY 03/02/14 [History Last Taken 04/29/18] tramadol 50 mg tablet 50 mg PO DAILY PRN Pain Score 1-10 03/02/14 [History Last Taken 06/03/23] glycopyrrolate 9 mcg-formoterol 4.8 mcg HFA aerosol inhaler (Bevespi Aerosphere) 10.7 g IH BID 11/06/16 [History Last Taken 06/02/23] amlodipine 2.5 mg tablet 5 mg PO DAILY hypertension 04/30/18 [History Last Taken 05/29/23] oxybutynin chloride 5 mg tablet 5 - 10 mg PO DAILY pain 01/25/20 [History Last Taken 06/03/23] cholecalciferol (vitamin D3) 50 mcg (2,000 unit) capsule 2,000 unit PO DAILY deficiency 07/27/20 [History Last Taken 05/29/23] furosemide 20 mg tablet 20 mg PO DAILY PRN Swelling 07/27/20 [History Last Taken Unknown] hydroxychloroquine 200 mg tablet 200 mg PO BIDCM arthritis 07/27/20 [History Last Taken 06/03/23] potassium chloride 10 mEq tablet,extended release 10 meq PO DAILY PRN when taking Lasix 07/27/20 [History Last Taken Unknown] prednisone 5 mg tablet 5 - 10 mg PO DAILY PRN Lupus flare 07/27/20 [History Last Taken 06/03/23] tiotropium bromide 2.5 mcg/actuation mist for inhalation 2.5 mcg IH DAILY 07/27/20 [History Last Taken Unknown] benzonatate 100 mg capsule 100 mg PO TID PRN cough 05/29/23 [History Last Taken 06/02/23] plaqenil 200 mg PO BID arthritis 05/29/23 [History Last Taken Unknown] amoxicillin 875 mg-potassium clavulanate 125 mg tablet 1 tab PO BID #14 tabs 06/01/23 [Rx Last Taken 06/02/23] fluconazole 100 mg tablet 100 mg PO DAILY #5 tabs 06/02/23 [Rx Last Taken Unknown] Allergy/AdvReac Type Severity Reaction Status Date / Time bromide salts [bromide] AdvReac Hives Verified 05/29/23 11:35 strawberry AdvReac Hives Verified 05/29/23 11:35 Family History Mother Arthritis Diabetes Hypertension Osteoporosis Father Arthritis Heart disease Sister Arthritis Breast cancer Diabetes Hypertension Son Diabetes Other Alzheimer disease Anemia Hyperlipidemia Thyroid disorder Surgical History History of lumpectomy History of lung biopsy History of tubal ligation Hx of cholecystectomy Social History Smoking Status: Former smoker ROS ROS ED Constitutional Constitutional ED: Denies chills or fever(s) Eyes Eyes: Denies change in vision Cardiovascular Cardiovascular: Denies chest pain Respiratory/Chest Respiratory/Chest: Reports cough and dyspnea; Denies sputum Gastrointestinal Gastrointestinal: Reports diarrhea; Denies abdominal pain, nausea or vomiting Genitourinary Genitourinary ED: Denies dysuria or hematuria Musculoskeletal Musculoskeletal: Denies arthralgias or myalgias Integumentary Denies rash Neurologic Neurologic: Reports weakness; Denies headache(s) Psychiatric Psychiatric: Denies anxiety Hematologic/Lymphatic Hematologic/Lymphatic: Denies easy bleeding or easy bruising EXAM Physical Exam Const Vital Signs: 06/03/23 22:57 06/03/23 22:57 06/03/23 22:57 Temperature 96.9 F L Temperature Source Temporal Pulse Rate 90 Respiratory Rate 35 H Respiratory Effort Short of Breath Labored Short of Breath Labored Respiratory Depth Shallow Respiratory Pattern Tachypnea Tachypnea Blood Pressure 157/53 H Blood Pressure Mean 87 Pulse Ox 95 Oxygen Delivery Method Nasal Cannula Nasal Cannula Oxygen Flow Rate (L/min) 3 3 Fraction of Inspired Oxygen (FIO2) 06/03/23 22:55 06/03/23 23:25 06/03/23 23:05 Temperature 97.9 F 97.8 F Temperature Source Oral Oral Pulse Rate 89 88 87 Respiratory Rate 32 H 20 H 16 Respiratory Effort Respiratory Depth Respiratory Pattern Blood Pressure 145/60 H 145/60 H Blood Pressure Mean 88 88 Pulse Ox 95 94 Oxygen Delivery Method Nasal Cannula Nasal Cannula Oxygen Flow Rate (L/min) 3 3 Fraction of Inspired Oxygen (FIO2) 06/03/23 23:14 06/03/23 23:40 06/03/23 23:57 Temperature 98.1 F Temperature Source Temporal Pulse Rate 84 90 Respiratory Rate 21 H 25 H Respiratory Effort Respiratory Depth Respiratory Pattern Blood Pressure 149/74 H Blood Pressure Mean 99 Pulse Ox 95 96 Oxygen Delivery Method Nasal Cannula Bi-pap Oxygen Flow Rate (L/min) 3 Fraction of Inspired Oxygen (FIO2) 35 06/04/23 00:32 06/04/23 01:19 Temperature 99.4 F H Temperature Source Pulse Rate 83 Respiratory Rate 16 26 H Respiratory Effort Respiratory Depth Respiratory Pattern Blood Pressure 149/74 H Blood Pressure Mean 99 Pulse Ox 93 Oxygen Delivery Method Oxygen Flow Rate (L/min) Fraction of Inspired Oxygen (FIO2) 35 Positive well nourished and well developed Constitutional Narrative: Patient in moderate respiratory distress General Appearance ED: well developed HEENT Reports dry mucous membranes Mouth ED: Yes dry mucous membranes Mouth: dry mucous membranes Eyes PERRL and EOMs intact bilaterally Neck supple and no JVD Chest Wall inspection of chest normal and palpation of chest normal Resp Resp Narrative: Tachypnea with increased work of breathing. Very little air movement appreciated. Effort and Inspection: Negative for retractions Auscultation: diminished lung sounds; Negative for rhonchi or wheezes Cardio regular rate and regular rhythm GI normal to inspection, nondistended, normoactive bowel sounds and non-tender Extremity normal to inspection General Extremety ED: Negative for edema or tenderness General Extremity: Negative for edema Neuro oriented x3 Sensorium / Orientation: alert Motor Exam: general weakness Psych mental status grossly normal Skin no rashes or lesions noted and no wounds MDM MDM MDM Narrative Medical decision making narrative: Patient evaluated for increased weakness and difficulty breathing in the setting of recent pneumonia and hospitalization for bacteremia. Patient is ill-appearing upon arrival with significantly increased work of breathing. ABG, aerosols and septic workup started. Differential includes COPD exacerbation, pneumonia, septicemia, influenza/viral illness and pulmonary emboli. ABG is concerning for decompensated hypercapnic respiratory failure and patient is placed on BiPAP. She is given bleeding breathing treatment and I did order her Solu-Medrol as well. High since he troponin is mildly elevated 98 I suspect this is more strain related secondary to her respiratory distress. Chest x-ray 1 view reviewed by myself shows improvement of her right lower lobe pneumonia. Patient is found to be positive for influenza A which is likely the cause of her acute respiratory decompensation. Will defer further antibiotics at this time. Patient will be admitted to the ICU. Case discussed with Dr. Gomes. Family at the bedside agreeable with this plan of care. Patient ultimately does have an elevated D-dimer. This is discussed with physician as patient is already on the floor with this result. He will order CT of the chest. Lab Data Labs: Laboratory Results - last 24 hr 06/03/23 06/04/23 23:39 00:05 WBC 9.4 RBC 4.17 L Hgb 13.1 Hct 40.8 MCV 97.8 MCH 31.4 MCHC 32.1 RDW Std Deviation 48.2 H RDW Coeff of Nasir 13.3 Plt Count 501 H MPV 8.6 Immature Gran % (Auto) 1.800 H Neut % (Auto) 85.5 H Lymph % (Auto) 7.2 L [place] % (Auto) 4.8 Eos % (Auto) 0.0 Baso % (Auto) 0.7 Absolute Neuts (auto) 8.1 H Absolute Lymphs (auto) 0.68 L Nucleated RBC % 0 PT 12.7 INR 1.0 APTT 29.3 D-Dimer Quant (PE/DVT) 5.26 H* Sodium 132 L Potassium 5.1 Chloride 95 L Carbon Dioxide 36.0 H Anion Gap 1 L BUN 22 H Creatinine 0.94 Estim Creat Clear Calc 61.75 Est GFR (MDRD) Af Amer 75 Est GFR (MDRD) Non-Af 62 BUN/Creatinine Ratio 23.3 H Glucose 142 H Lactic Acid 1.0 Calcium 9.6 Total Bilirubin 0.40 AST 40 H ALT 48 Alkaline Phosphatase 146 H Troponin I High Sens 98 H Total Protein 7.9 Albumin 2.5 L Globulin 5.4 H Albumin/Globulin Ratio 0.5 L Urine Color Yellow Urine Clarity Clear Urine pH 5.0 Ur Specific [place] 1.025 Urine Protein 30 H Urine Glucose (UA) Normal Urine Ketones 5 H Urine Occult Blood 250 H Urine Nitrite Negative Urine Bilirubin Negative Urine Urobilinogen Normal Ur Leukocyte Esterase Negative Urine RBC 25-50 SEEN Urine WBC 0 SEEN Ur Squamous Epith Cells 5-10 SEEN Urine Bacteria 0 SEEN Hyaline Casts 0-5 SEEN Fine Granular Casts 0-5 SEEN Urine Mucus 0 SEEN ABG Data ABG results: ABG 06/03/23 23:37 Specimen Type ART Sample Site R Radial pH 7.23 L Bicarbonate Actual 33.3 H Total CO2 36 Base Excess 6 H O2 Saturation 93 L O2 % 3.5 ABG pCO2 79.9 H* ABG pO2 84 Ismael Test Positive O2 Delivery Device Cannula Vent Mode Not entered Crit Call To/Read Back Yes Radiography Chest X-Ray - ED: 1 View, Read by ED Physician and Right Infiltrate (improving ) Diagnostic Testing: Clinical Impression(s) from Imaging Studies Chest X-Ray 06/04/23 00:00 IMPRESSION: 1. Overall improved aeration involving the right middle to lower lung with associated persisting airspace disease concerning for persisting pneumonia/aspiration in the appropriate clinical setting. 2. No new or worsening cardiopulmonary disease. 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
[2023-06-03] MEDS: Albuterol 2.5 MG/3 ML VIAL.NEB. INHALATION ×2 (23:24)
[2023-06-03] MEDS: Ipratropium/Albuterol Sulfate 3 ML AMPUL.NEB INHALATION (23:24)
[2023-06-03 23:25] VITALS: PULSE 88; RESP 20
[2023-06-03] MEDS: 0.9% Normal Saline (1000mL) 1,000 ML 150 ML IV (23:35)
[2023-06-03 23:40] VITALS: BP 149/74; PULSE 84; RESP 21; TEMP 36.7; O2SAT 95
[2023-06-03 23:40] LABS: Allen Test Positive; Base Excess 6 mmol/L (-2 to +2); Bicarbonate 33.3 mmol/L (22-26); Blood Gas Specimen Type ART; FI02 3.5; Mode Not entered; O2 Delivery Device Cannula; PO2 84 mmHG (75-100); SITE R Radial; SO2 93 % (95-99); Total Carbon Dioxide 36 mmol/L; pCO2 79.9 mmHg (35-45); pH 7.23 (7.35-7.45)
--- NOTE | 2023-06-03 23:40 | CPS ---
critical abg results handed to dr darling
[2023-06-03 23:44] LABS: Absolute Lymphocyte Count 0.68 X10^3/uL (0.83-4.51); Absolute Neutrophil Count 8.1 X10^3/uL (2.0-7.7); Basophil# 0.07 X10^3/uL; Basophil% 0.7 % (0-1); Hematocrit 40.8 % (37-47); Hemoglobin 13.1 g/dL (12.0-15.0); Lymphocyte # 0.68 X10^3/ul (0.83-4.51); Lymphocyte % 7.2 % (19-41); Mean Corp Hgb Conc 32.1 g/dL (32-36); Mean Corpuscular Hgb 31.4 pg (27.0-32.0); Mean Corpuscular Volume 97.8 fL (81-99); Mean Platelet Vol. 8.6 fl (6.2-12.0); Monocyte# 0.45 X10^3/uL; Monocyte% 4.8 % (0-10); NRBC Flagged by Analyzer 0 % (0-5); Neutrophil # 8.06 X10^3/uL (2.7-7.7); Neutrophil % 85.5 % (47-70); Platelet Count 501 K/mm3 (150-450); RBC Distribution Width CV 13.3 % (11.6-14.6); RBC Distribution Width SD 48.2 fl (35.1-43.9); Red Blood Count 4.17 M/mm3 (4.2-5.4); White Blood Count 9.4 K/mm3 (4.4-11.0)
[2023-06-03 23:57] VITALS: PULSE 90; RESP 12; RESP 25; O2SAT 96
[2023-06-04] VITALS (35 sets, daily range): BP systolic 124–164; BP diastolic 64–87; PULSE 68–94; RESP 12–27; TEMP 36.6–37.7; O2SAT 87–100; BMI 36.6
--- NOTE | 2023-06-04 | RAD_ITS ---
EXAM: XR CHEST, 1 VIEW CLINICAL INDICATION: sob TECHNIQUE: Frontal view of the chest. COMPARISON: May 29, 2023 FINDINGS: LUNGS AND PLEURAL SPACES: Heterogeneous airspace disease involving the right middle lower lobe concerning for pneumonia/aspiration in the appropriate clinical setting. Biapical pleural parenchymal scarring, left worse than right. At least a small right pleural effusion is present. No pneumothorax. HEART: Unremarkable. Cardiac silhouette not enlarged. MEDIASTINUM: Fullness of the cardiac silhouette as before. No mediastinal or hilar enlargement. BONES/JOINTS: Degenerative changes of the spine. No acute fracture. SOFT TISSUES: Unremarkable. VASCULATURE: Nonenlarged thoracic aortic arch containing atherosclerotic calcifications. RAD/Chest 1 View (Portable) IMPRESSION: 1. Overall improved aeration involving the right middle to lower lung with associated persisting airspace disease concerning for persisting pneumonia/aspiration in the appropriate clinical setting. 2. No new or worsening cardiopulmonary disease. Electronically Signed: Gurmeet Wong MD at 1:17 EST ,
[2023-06-04 00:04] LABS: ALB/GLOB Ratio 0.5 RATIO (0.9-2.4); AST(SGOT) 40 U/L (15-37); Alanine Aminotransfer ALT/SGPT 48 U/L (13-56); Albumin, Serum 2.5 g/dL (3.2-5.0); Alkaline Phosphatase 146 U/L (45-117); Anion Gap 1 (5-15); BUN 22 mg/dL (7-18); BUN/Creat Ratio 23.3 RATIO (10-20); Calcium,Total 9.6 mg/dL (8.5-10.1); Chloride 95 mmol/L (98-107); Creatinine, Serum 0.94 mg/dL (0.55-1.02); EST Glomerular Filtration Rate 62 mL/min (>60); Est Glom Filt Rate - Afr Amer 75 mL/min (>60); Estimated Creatinine Clearance 61.75 ml/min; Globulin 5.4 g/dL (2.2-4.2); Glucose 142 mg/dL (74-106); Potassium 5.1 mmol/L (3.5-5.1); Protein, Total 7.9 g/dL (6.4-8.2); Sodium Level 132 mmol/L (136-145); Troponin-I HS 98 pg/mL (3.0-54.0)
[2023-06-04 00:16] LABS: Bacteria 0 SEEN /hpf (None Seen); Mucous, Urine 0 SEEN /hpf (<or=2+); White Blood Cells 0 SEEN /hpf (0-5)
[2023-06-04 00:17] LABS: Glucose, Dipstick Normal (Normal); Ketone-Dipstick 5 mg/dl (Negative); Leukocyte Esterase-Dipstick Negative /ul (Negative); Nitrite-Dipstick Negative (Negative); Occult Blood-Urine 250 /ul (Negative); Protein-Dipstick 30 mg/dl (Negative); Specific Gravity, Urine 1.025 (1.002-1.030); Urine Bilirubin Dipstick Negative (Negative); Urine Urobilinogen Normal (Normal)
[2023-06-04 00:19] LABS: Prothrombin Time (Protime)PT. 12.7 SECONDS (11.7-14.9)
[2023-06-04 00:20] LABS: Partial Thromboplast Time 29.3 Seconds (24.1-36.2)
--- NOTE | 2023-06-04 00:31 | PCM.HP.STD ---
[facility] - General General Date of Admission: 06/04/23 Date of Service: 06/04/23 Chief Complaint: SOB. [facility] Narrative ZEINAB HULL, is a 72 F with a past medical history of essential hypertension, obesity; with BMI of 37.3 this admission, Parkinson's disease, systemic lupus erythematosus, MCTD; with polyarthropathy, history of tobacco abuse; with subsequent asthma/COPD, chronic hypoxic respiratory failure on 3 to 4 L nasal cannula continuously at baseline, osteoarthritis and recent admission here from May 29, 2023 to June 01, 2023 for treatment of Right lower lobe pneumonia and urinary tract infection with bacteremia and hyponatremia with patient discharged on 6 L nasal cannula, Augmentin and fluconazole based on culture results who re-presents to [facility] ER complaining of shortness of breath. Mrs. Hull reports her symptoms began since she arrived back at home approximately 2 days ago with the patient claiming to be short of breath at rest. Her also noted that she was not eating or drinking very much with increasing confusion over the past 24 hours so he activated EMS. She also admits to an episode of diarrhea earlier today that was nonbloody and has previously been attributed to a side effect of her Parkinson's therapy. There is no report of associated fever, chills, nausea, vomiting, abdominal pain or lower extremity swelling. In the ER she was diagnosed with acute exacerbation of asthma/COPD causing acute hypoxic respiratory failure requiring BiPAP with viral assay positive for acute influenza A complicated by and she was then admitted to the ICU for ongoing care for stay that is expected to be greater than 48 hours. [facility], [facility] Medical History Arthritis Asthma COPD (chronic obstructive pulmonary disease) EXCISION STOMACH TUMOR Hypertension Lupus Mixed connective tissue disease Parkinson disease Polyarthropathy RIGHT ANKLE FRACTURE REPAIR Home Medications carbidopa 25 mg-levodopa 100 mg tablet 1 tab PO TID parkinsons 03/02/14 [History Last Taken 05/29/23] hydrochlorothiazide 12.5 mg capsule 25 mg PO DAILY 03/02/14 [History Last Taken 04/29/18] tramadol 50 mg tablet 50 mg PO DAILY PRN Pain Score 1-10 03/02/14 [History Last Taken 06/03/23] glycopyrrolate 9 mcg-formoterol 4.8 mcg HFA aerosol inhaler (Bevespi Aerosphere) 10.7 g IH BID 11/06/16 [History Last Taken 06/02/23] amlodipine 2.5 mg tablet 5 mg PO DAILY hypertension 04/30/18 [History Last Taken 05/29/23] oxybutynin chloride 5 mg tablet 5 - 10 mg PO DAILY pain 01/25/20 [History Last Taken 06/03/23] cholecalciferol (vitamin D3) 50 mcg (2,000 unit) capsule 2,000 unit PO DAILY deficiency 07/27/20 [History Last Taken 05/29/23] furosemide 20 mg tablet 20 mg PO DAILY PRN Swelling 07/27/20 [History Last Taken Unknown] hydroxychloroquine 200 mg tablet 200 mg PO BIDCM arthritis 07/27/20 [History Last Taken 06/03/23] potassium chloride 10 mEq tablet,extended release 10 meq PO DAILY PRN when taking Lasix 07/27/20 [History Last Taken Unknown] prednisone 5 mg tablet 5 - 10 mg PO DAILY PRN Lupus flare 07/27/20 [History Last Taken 06/03/23] tiotropium bromide 2.5 mcg/actuation mist for inhalation 2.5 mcg IH DAILY 07/27/20 [History Last Taken Unknown] benzonatate 100 mg capsule 100 mg PO TID PRN cough 05/29/23 [History Last Taken 06/02/23] plaqenil 200 mg PO BID arthritis 05/29/23 [History Last Taken Unknown] amoxicillin 875 mg-potassium clavulanate 125 mg tablet 1 tab PO BID #14 tabs 06/01/23 [Rx Last Taken 06/02/23] fluconazole 100 mg tablet 100 mg PO DAILY #5 tabs 06/02/23 [Rx Last Taken Unknown] Allergy/AdvReac Type Severity Reaction Status Date / Time bromide salts [bromide] AdvReac Hives Verified 05/29/23 11:35 strawberry AdvReac Hives Verified 05/29/23 11:35 Family History Mother Arthritis Diabetes Hypertension Osteoporosis Father Arthritis Heart disease Sister Arthritis Breast cancer Diabetes Hypertension Son Diabetes Other Alzheimer disease Anemia Hyperlipidemia Thyroid disorder Surgical History History of lumpectomy History of lung biopsy History of tubal ligation Hx of cholecystectomy Social History Smoking Status: Former smoker ROS ROS Narrative Review of systems: General: Patient denies fevers or chills. HENT: Denies headache, denies stuffy nose, denies sore throat EYES: Denies changes in vision or discharge from eyes. Resp: Patient admits to cough and shortness of breath but denies sputum. Cardiac: Denies chest pain or palpitations. GI: Denies abdominal pain, denies changes in bowel, denies nausea or vomit : Denies changes in urination Extremity: Denies swelling Musculoskeletal: Feels somewhat generally weak and unwell Neuro: Denies any numbness/tingling Heme: Denies any bleeding or bruising Skin: Denies rashes Psychiatric: No complaints voiced related to uncontrolled depression or anxiety Endocrine: No polyuria, polydipsia or polyphagia The rest of the 14 point ROS was negative except for positives in HPI. Vital Signs Vital Signs Vital Signs: 06/03/23 22:57 06/03/23 22:57 06/03/23 22:57 Temperature 96.9 F L Temperature Source Temporal Pulse Rate 90 Respiratory Rate 35 H Respiratory Effort Short of Breath Labored Short of Breath Labored Respiratory Depth Shallow Respiratory Pattern Tachypnea Tachypnea Blood Pressure 157/53 H Blood Pressure Mean 87 Pulse Ox 95 Oxygen Delivery Method Nasal Cannula Nasal Cannula Oxygen Flow Rate (L/min) 3 3 Fraction of Inspired Oxygen (FIO2) 06/03/23 22:55 06/03/23 23:25 06/03/23 23:05 Temperature 97.9 F 97.8 F Temperature Source Oral Oral Pulse Rate 89 88 87 Respiratory Rate 32 H 20 H 16 Respiratory Effort Respiratory Depth Respiratory Pattern Blood Pressure 145/60 H 145/60 H Blood Pressure Mean 88 88 Pulse Ox 95 94 Oxygen Delivery Method Nasal Cannula Nasal Cannula Oxygen Flow Rate (L/min) 3 3 Fraction of Inspired Oxygen (FIO2) 06/03/23 23:14 06/03/23 23:40 06/03/23 23:57 Temperature 98.1 F Temperature Source Temporal Pulse Rate 84 90 Respiratory Rate 21 H 25 H Respiratory Effort Respiratory Depth Respiratory Pattern Blood Pressure 149/74 H Blood Pressure Mean 99 Pulse Ox 95 96 Oxygen Delivery Method Nasal Cannula Bi-pap Oxygen Flow Rate (L/min) 3 Fraction of Inspired Oxygen (FIO2) 35 Weight Weight: 217 lb 9.54 oz Body Mass Index (BMI) 37.3 Physical Exam Const alert and oriented x3 Constitutional Narrative: Patient obese and noted to have labored respirations on BiPAP. General Appearance: cooperative HEENT normocephalic, head/scalp atraumatic, hearing grossly normal bilaterally and moist oral mucous membranes Eyes PERRL and EOMs intact bilaterally Neck no lymphadenopathy and supple Resp Resp Narrative: Decreased breath sounds throughout. Cardio regular rate and regular rhythm GI normal to inspection, nondistended, normoactive bowel sounds, soft to palpation, non-tender and non-distended Extremity normal to inspection and full ROM Skin Skin Narrative: Patient has no evidence of rash or abscess at this time. Neuro oriented x3, CN's II-XII intact bilaterally, moves all extremities and no focal motor deficits Sensorium / Orientation: awake, alert, oriented to person, oriented to place and oriented to time Speech: speech normal Motor Exam: strength 5/5 throughout Psych affect normal Results Medical Records Data Attestation: I reviewed the patient's medical records Lab / Micro Data Attestation: I reviewed the patient's lab results. Lab results narrative: [facility] Imaging Services [address] [place] [address] CTA Chest W/WO Contrast MR#: [id number] Acct: [id number] Name: ZEINAB HULL Rep #: [id number] : 1950 F 72 From: Gurmeet Wong MD PCP: Haritha Alonso, WEBBING SUPERVISOR-C Status: ADM IN Study: CTA Chest W/WO Contrast Date of Exam: 06/04/23 Exam# [id number] Ordering Dr: Darwin Tarango DO EXAM: CT ANGIOGRAPHY CHEST WITHOUT AND WITH INTRAVENOUS CONTRAST CLINICAL INDICATION: elevated d-dimer TECHNIQUE: Helically acquired angiography images were obtained of the chest without and with intravenous contrast. CTDIvol = ( 12.63 ) mGy, DLP = ( 538.86 ) mGycm This CT exam was performed using one or more of the following dose reduction techniques: automated exposure control, adjustment of the mA and/or kV according to patient size, and/or use of iterative reconstruction technique. MIP reconstructed images were created and reviewed. CONTRAST: IV 100mL Isovue-370 COMPARISON: January 14, 2023 CT chest FINDINGS: PULMONARY ARTERIES: Unremarkable. Normal in caliber. No evidence of pulmonary embolism. AORTA: Unremarkable. Normal in caliber. No evidence of dissection. GREAT VESSELS OF AORTIC ARCH: Unremarkable. Normal in caliber. No evidence of dissection. LUNGS AND PLEURAL SPACES: New ssgac-iw-wtagqbwt right pleural effusion posteriorly with adjacent passive atelectasis. New airspace disease involving the right middle lobe with mixed interstitial/alveolar disease involving the posterior aspect of the right upper lobe may be infectious/inflammatory. Severe diffuse centrilobular emphysematous changes. Increased fullness of apical pleural-parenchymal thickening on the left with spiculated margins concerning for enlarging pathology. Consider PET/CT and/or tissue sampling if not recently performed. Increasing fullness of upper lobe solitary pulmonary nodule measuring up to approximately 7 mm. No other changes. HEART: Unremarkable. No significant coronary artery calcifications. No cardiomegaly or pericardial effusion. No fever. MEDIASTINUM: Unremarkable. No mediastinal or hilar adenopathy. Esophagus is unremarkable. No hiatal hernia. THYROID: Unremarkable. No thyroid lesions. BONES/JOINTS: No unusual lytic or sclerotic lesions of bone. Degenerative changes spine. LYMPH NODES: Right hilar/infrahilar probably reactive adenopathy. LIVER: Hepatic steatosis suggests. CT/CTA Chest W/WO Contrast IMPRESSION: 1. Increased fullness of apical pleural-parenchymal thickening on the left with spiculated margins concerning for enlarging pathology. Consider PET/CT and/or tissue sampling if not recently performed. 2. New right ldjud-az-aqaiompp pleural effusion. 3. Airspace disease involving the right lower lobe posteriorly and right middle lobe may represent aspiration/pneumonia in the appropriate clinical setting with a component of partial atelectasis also likely present. 4. Increasing fullness of upper lobe solitary pulmonary nodule measuring up to approximately 7 mm. Given increasing fullness/size, recommend PET/CT or tissue diagnosis. 5. Suspect reactive right hilar/mediastinal adenopathy. Electronically Signed: Gurmeet Wong MD at 4:13 EST , 06/04/23 03:53 06/04/23 04:45 Labs: Laboratory Results - last 24 hr 06/03/23 23:39: WBC 9.4, RBC 4.17 L, Hgb 13.1, Hct 40.8, MCV 97.8, MCH 31.4, MCHC 32.1, RDW Std Deviation 48.2 H, RDW Coeff of Nasir 13.3, Plt Count 501 H, MPV 8.6, Immature Gran % (Auto) 1.800 H, Neut % (Auto) 85.5 H, Lymph % (Auto) 7.2 L, Phelps % (Auto) 4.8, Eos % (Auto) 0.0, Baso % (Auto) 0.7, Absolute Neuts (auto) 8.1 H, Absolute Lymphs (auto) 0.68 L, Nucleated RBC % 0, Sodium 132 L, Potassium 5.1, Chloride 95 L, Carbon Dioxide 36.0 H, Anion Gap 1 L, BUN 22 H, Creatinine 0.94, Estim Creat Clear Calc 61.75, Est GFR (MDRD) Af Amer 75, Est GFR (MDRD) Non-Af 62, BUN/Creatinine Ratio 23.3 H, Glucose 142 H, Lactic Acid 1.0, Calcium 9.6, Total Bilirubin 0.40, AST 40 H, ALT 48, Alkaline Phosphatase 146 H, Troponin I High Sens 98 H, Total Protein 7.9, Albumin 2.5 L, Globulin 5.4 H, Albumin/Globulin Ratio 0.5 L Micro: UN DATE: 06/04/23 [facility], DEPARTMENT OF LABORATORIES PAGE 1 RUN TIME: 415 Specimen In[facility] [address] [place], [place], [id number] PATIENT: ZEINAB HULL LOC: ICU U #: [id number] : 1950 AGE/SX: 72/F FACILITY: [facility] ROOM: ICU03 RE06/04/[address]: Huma Spann STATUS:ADM IN ED: 1 DIS: ~ SPEC #: [id number] __ IAN: 06/03/23-2339 STATUS: COMP REQ #: [id number] SOURCE: Mucosa RECD: 06/03/23-[address]: [facility] Jenny Piper, [facility] Nose ENTR: 06/03/23-[address]: Haritha Alonso, WEBBING SUPERVISOR-Hemanth ~ ORDERED: COV+FLU+RSV PCR Procedure Result Verified COV + FLU + RSV PCR Final 06/04/23-45 SARS-CoV-2 (COVID 19) Negative INFLUENZA A Positive INFLUENZA B Negative RSV PCR Negative Organism 1 INFLUENZAE A Normal Reference Range = Negative GeneXpert Instrument, PCR method RESULTS CALLED TO [employer] 06/04/23 0045 Jeny Giles. REPORT READ BACK BY [employer]. Copy of report sent to Infection Control Printer [id number] 06/04/23 0046 [employer]. ABG Data ABG results: ABG 06/03/23 23:37 Specimen Type ART Sample Site R Radial pH 7.23 L Bicarbonate Actual 33.3 H Total CO2 36 Base Excess 6 H O2 Saturation 93 L O2 % 3.5 ABG pCO2 79.9 H* ABG pO2 84 Ismael Test Positive O2 Delivery Device Cannula Vent Mode Not entered Crit Call To/Read Back Yes Assessment & Plan Assessment/Plan (1) Right lower lobe pneumonia: QUALIFIERS: Pneumonia type: due to unspecified organism Qualified Code(s): J18.9 - Pneumonia, unspecified organism (2) Influenza A: (3) COPD exacerbation: (4) Acute and chronic respiratory failure with hypercapnia: (5) Elevated troponin: PLAN: Plan 1. Right lower lobe pneumonia - Admit to ICU. Continue broad-spectrum antibiotics and await culture and sensitivity data. Abnormal spiculated Left apical margins noted on CT of chest this admission with pending pulmonology consult pending in the AM with help appreciated in advance. 2. Acute influenza A complicating #1 - Place on contact and droplet precautions plus give vitamin D3, vitamin C and zinc to help boost immunity and speed recovery. 3. Acute exacerbation of asthma/COPD due to #1 & #2 - Continue IV Solu-Medrol twice daily plus scheduled and prn nebulizers. Give Tylenol as needed pain or fever. 4. Thmva-go-Cmuomxj hypoxic/hypercapnic respiratory failure requiring BiPAP arising from #1 - #3 - Wean BiPAP and supplemental oxygen as tolerated. 5. Parkinson's disease; with presumed adverse drug reaction to treatment regimen causing loose stools complicating #1 - #4 - Continue home regimen as previous at this time. Check stool studies and consider starting alternative therapy if problem persists. 6. Recent admission here from May 29, 2023 to June 01, 2023 for treatment of Right lower lobe pneumonia and urinary tract infection with bacteremia and hyponatremia with patient discharged on 6 L nasal cannula, Augmentin and fluconazole based on culture results - Noted. 7. Essential hypertension - Resume home medications as previous plus give as needed IV hydralazine for systolic blood pressure greater than 160 mmHg. 8. Obesity; with BMI of 37.3 this admission - Weight loss will be recommended. Check TSH. 9. Systemic lupus erythematosus + MCTD; with polyarthropathy - Continue current regimen and monitor for improvement. 10. Osteoarthritis - Stable. Give Tylenol as needed. 11. DVT prophylaxis - Lovenox 40 mg sq daily. Total time: Approximately 55 minutes. Charges/Coding Visit Charges Inpatient E&M: 90314 Init Hosp L2
[2023-06-04] MEDS: MethylPREDNISolone 125 MG/2 ML Vial IV (00:40)
[2023-06-04 01:19] LABS: Color, Urine Yellow (Yellow); Urine Clarity Clear (Clear)
[2023-06-04 01:52] LABS: D-Dimer Quantitative (DVT/PE) 5.26 FEU/ug/m (0.27-0.49)
[2023-06-04 01:54] LABS: Fine Granular Cast- Urine 0-5 SEEN /lpf (0-5); Hyaline Cast 0-5 SEEN /lpf (0-5); Red Blood Cells-Urine 25-50 SEEN /hpf (0-5); Squamous Epithelial Cells - UA 5-10 SEEN /hpf (5-10)
--- NOTE | 2023-06-04 02:01 | CT_ITS ---
EXAM: CT ANGIOGRAPHY CHEST WITHOUT AND WITH INTRAVENOUS CONTRAST CLINICAL INDICATION: elevated d-dimer TECHNIQUE: Helically acquired angiography images were obtained of the chest without and with intravenous contrast. CTDIvol = ( 12.63 ) mGy, DLP = ( 538.86 ) mGycm This CT exam was performed using one or more of the following dose reduction techniques: automated exposure control, adjustment of the mA and/or kV according to patient size, and/or use of iterative reconstruction technique. MIP reconstructed images were created and reviewed. CONTRAST: IV 100mL Isovue-370 COMPARISON: January 14, 2023 CT chest FINDINGS: PULMONARY ARTERIES: Unremarkable. Normal in caliber. No evidence of pulmonary embolism. AORTA: Unremarkable. Normal in caliber. No evidence of dissection. GREAT VESSELS OF AORTIC ARCH: Unremarkable. Normal in caliber. No evidence of dissection. LUNGS AND PLEURAL SPACES: New bvcgn-cy-xqulrugv right pleural effusion posteriorly with adjacent passive atelectasis. New airspace disease involving the right middle lobe with mixed interstitial/alveolar disease involving the posterior aspect of the right upper lobe may be infectious/inflammatory. Severe diffuse centrilobular emphysematous changes. Increased fullness of apical pleural-parenchymal thickening on the left with spiculated margins concerning for enlarging pathology. Consider PET/CT and/or tissue sampling if not recently performed. Increasing fullness of upper lobe solitary pulmonary nodule measuring up to approximately 7 mm. No other changes. HEART: Unremarkable. No significant coronary artery calcifications. No cardiomegaly or pericardial effusion. No fever. MEDIASTINUM: Unremarkable. No mediastinal or hilar adenopathy. Esophagus is unremarkable. No hiatal hernia. THYROID: Unremarkable. No thyroid lesions. BONES/JOINTS: No unusual lytic or sclerotic lesions of bone. Degenerative changes spine. LYMPH NODES: Right hilar/infrahilar probably reactive adenopathy. LIVER: Hepatic steatosis suggests. CT/CTA Chest W/WO Contrast IMPRESSION: 1. Increased fullness of apical pleural-parenchymal thickening on the left with spiculated margins concerning for enlarging pathology. Consider PET/CT and/or tissue sampling if not recently performed. 2. New right htpra-md-jimtabto pleural effusion. 3. Airspace disease involving the right lower lobe posteriorly and right middle lobe may represent aspiration/pneumonia in the appropriate clinical setting with a component of partial atelectasis also likely present. 4. Increasing fullness of upper lobe solitary pulmonary nodule measuring up to approximately 7 mm. Given increasing fullness/size, recommend PET/CT or tissue diagnosis. 5. Suspect reactive right hilar/mediastinal adenopathy. Electronically Signed: Gurmeet Wong MD at 4:13 EST ,
[2023-06-04 04:05] LABS: Absolute Lymphocyte Count 0.56 X10^3/uL (0.83-4.51); Absolute Neutrophil Count 7.4 X10^3/uL (2.0-7.7); Basophil# 0.03 X10^3/uL; Basophil% 0.4 % (0-1); Hematocrit 36.7 % (37-47); Lymphocyte # 0.56 X10^3/ul (0.83-4.51); Lymphocyte % 6.8 % (19-41); Mean Corp Hgb Conc 32.7 g/dL (32-36); Mean Corpuscular Hgb 31.7 pg (27.0-32.0); Mean Corpuscular Volume 96.8 fL (81-99); Mean Platelet Vol. 9.4 fl (6.2-12.0); Monocyte# 0.18 X10^3/uL; Monocyte% 2.2 % (0-10); NRBC Flagged by Analyzer 0 % (0-5); Neutrophil # 7.36 X10^3/uL (2.7-7.7); Neutrophil % 89.1 % (47-70); POSITIVE DIFFERENTIAL YES; Platelet Count 514 K/mm3 (150-450); RBC Distribution Width CV 13.6 % (11.6-14.6); RBC Distribution Width SD 48.5 fl (35.1-43.9); Red Blood Count 3.79 M/mm3 (4.2-5.4); White Blood Count 8.3 K/mm3 (4.4-11.0)
--- NOTE | 2023-06-04 04:14 | VDLE_ITS ---
Reason For Study: Elevated D Dimer RIGHT LEFT GSV is normal. GSV is normal. CFV is compressible, spontaneous, phasic, CFV is compressible, spontaneous, phasic, competent and demonstrates normal competent, and demonstrates normal augmentation. augmentation. FV is compressible, spontaneous, phasic, FV is compressible, spontaneous, phasic, competent and demonstrates normal competent and demonstrates normal augmentation. augmentation. POP V is compressible, spontaneous, phasic, POP V is compressible, spontaneous, phasic, competent and demonstrates normal competent and demonstrates normal augmentation. augmentation. T/P Trunk is compressible. T/P Trunk is compressible. PTV is compressible. PTV is compressible. RT PerV is compressible. LT PerV is compressible. Procedure This is a venous duplex using B-mode, color flow and spectral Doppler. Exam performed portable in ICU/CCU. The exam was diagnostic. A preliminary report was called and/or faxed to FRONT OFFICE MANAGERGUY Osborne. VL/Venous Duplex US - Harish Extrem Interpretation Summary Deep veins of the bilateral lower extremities are patent and compressible segme ntally. There is no evidence of bilateral lower extremity deep vein thrombosis. The bilateral great saphenous veins appear patent and compressible segmentally. Ordering Physician: Darwin Tarango Referring Physician: Haritha Alonso Performed By: Billy Choi RVT
[2023-06-04] MEDS: Piperacil/Tazobactam 3.375 GM in 0.9% Normal Saline (50mL MB+) 50 ML IV ×3 (05:03→20:10)
[2023-06-04] MEDS: 0.9% Saline Lock 10 ML Syringe IV ×2 (05:03→08:05)
[2023-06-04] MEDS: Enoxaparin 100 MG/ML Syringe SC (05:03)
[2023-06-04 05:09] LABS: Troponin-I HS 87 pg/mL (3.0-54.0)
[2023-06-04 05:55] LABS: Anion Gap 7 (5-15); BUN 22 mg/dL (7-18); BUN/Creat Ratio 31.2 RATIO (10-20); Calcium,Total 9.3 mg/dL (8.5-10.1); Chloride 96 mmol/L (98-107); EST Glomerular Filtration Rate 87 mL/min (>60); Est Glom Filt Rate - Afr Amer 105 mL/min (>60); Estimated Creatinine Clearance 71.79 ml/min; Glucose 142 mg/dL (74-106); Sodium Level 131 mmol/L (136-145)
--- NOTE | 2023-06-04 06:36 | CON.PCM.CC_ITS ---
Assessment & Plan Assessment/Plan (1) Acute and chronic respiratory failure with hypercapnia: (2) Influenza A: (3) COPD exacerbation: PLAN: Plan RECOMMENDATIONS: 1. Continue BiPAP nightly and as needed. Breaks as tolerated during the day 2. Add Tamiflu 3. Continue antibiotics pending cultures 4. Transition to Solu-Medrol 40 IV every 8 5. Keep saturations between 90 and 94% 6. Repeat CT scan as an outpatient in 4 to 6 weeks to evaluate lung nodule IMPRESSIONS: 1. Acute on chronic combined respiratory failure secondary to COPD exacerbation secondary to influenza A Patient will be initiated on Tamiflu given recent diagnosis of influenza A. Cannot exclude MDRO, so okay with broad-spectrum antibiotics pending cultures. However, patient has recently had a protracted antibiotic course. Patient will continue with BiPAP with sleep and as needed. Likely okay to give breaks during the day. 2. Lung nodule Patient does have some spiculated features of a lung nodule at the left apical margins. Patient likely will need a repeat imaging study once the acute phase is completed. Cannot exclude the need for a PET scan as an outpatient. Patient also has some lower sodium levels, so paraneoplastic SIADH would also be a consideration. 3. Parkinson's disease Likely okay to continue patient's baseline medications at this time. Patient's movements appear to be okay at this time. Will attempt BiPAP breaks to allow administration of p.o. meds and nutrition 4. Obesity/advanced age/hypertension/SLE/osteoarthritis/recent hospita lization/tobacco abuse Complicates care, management, recovery and prognosis. Blood pressure is up a little bit this morning, but this may be secondary to the need for BiPAP therapy. Will continue to monitor. Patient does have as needed hydralazine if necessary. Patient has been confirmed a full code at this time. HPI Consult Data Date of Consult: 06/04/23 HPI Narrative HPI Narrative: ZEINAB HULL is a 72 F, with past medical history listed below, who presents to [facility] on 06/03/2023 secondary to progressive weakness. Patient was recently discharged secondary to admission for bacteremia, hyponatremia and a right lower lobe with UTI. Patient was discharged on 6 L/min, but after going home was noted to not have much p.o. intake. Patient also was intermittently confused, but had not reported any fevers. Patient did have an episode of diarrhea, but this is not uncommon for her secondary to her Parkinson medications. Patient denying chest pain, abdominal pain or lower extremity edema. In the ER, patient was afebrile, but tachypneic at 35 breaths/min. Patient initially was saturating well on 3 L/min, but ultimately was placed on BiPAP secondary to CO2 retention. Laboratory workup showed a white blood cell count of 9.4, hemoglobin of 13.1 and platelets of 501. Patient's INR was within normal limits, but D-dimer was elevated at 5.26. Chemistries were significant for a sodium of 132, bicarbonate of 36 and creatinine of 0.94. Glucose was elevated at 142. Will LFTs were relatively unremarkable except for a mildly elevated alkaline phosphatase at 146. UA was unremarkable. An ABG completed on nasal cannula showed a pH of 7.23, pCO2 of 80, pO2 of 84 with a saturation of 93%. These findings are consistent with an acute on chronic respiratory acidosis with partial compensation. Chest x-ray was relatively unremarkable, but his CTA of the chest did show a possible spiculated mass. Given patient's need for BiPAP, patient was given steroids, bronchodilators, empiric antibiotics admitted to the intensive care unit. Since being in the intensive care unit, patient has done relatively well. Patient has been BiPAP dependent, but is requiring very little FiO2. Patient has come back positive for influenza A. Patient is reporting a cough intermittently, but no production. Patient is not reporting any nausea or vomiting. Patient is having difficulty giving a full review of systems secondary to BiPAP requirements. No family is at the bedside. [facility] Medical History Arthritis Asthma COPD (chronic obstructive pulmonary disease) EXCISION STOMACH TUMOR Hypertension Lupus Mixed connective tissue disease Parkinson disease Polyarthropathy RIGHT ANKLE FRACTURE REPAIR Home Medications carbidopa 25 mg-levodopa 100 mg tablet 1 tab PO TID parkinsons 03/02/14 [History Last Taken 05/29/23] hydrochlorothiazide 12.5 mg capsule 25 mg PO DAILY 03/02/14 [History Last Taken 04/29/18] tramadol 50 mg tablet 50 mg PO DAILY PRN Pain Score 1-10 03/02/14 [History Last Taken 06/03/23] glycopyrrolate 9 mcg-formoterol 4.8 mcg HFA aerosol inhaler (Bevespi Aerosphere) 10.7 g IH BID 11/06/16 [History Last Taken 06/02/23] amlodipine 2.5 mg tablet 5 mg PO DAILY hypertension 04/30/18 [History Last Taken 05/29/23] oxybutynin chloride 5 mg tablet 5 - 10 mg PO DAILY pain 01/25/20 [History Last Taken 06/03/23] cholecalciferol (vitamin D3) 50 mcg (2,000 unit) capsule 2,000 unit PO DAILY deficiency 07/27/20 [History Last Taken 05/29/23] furosemide 20 mg tablet 20 mg PO DAILY PRN Swelling 07/27/20 [History Last Taken Unknown] hydroxychloroquine 200 mg tablet 200 mg PO BIDCM arthritis 07/27/20 [History Last Taken 06/03/23] potassium chloride 10 mEq tablet,extended release 10 meq PO DAILY PRN when taking Lasix 07/27/20 [History Last Taken Unknown] prednisone 5 mg tablet 5 - 10 mg PO DAILY PRN Lupus flare 07/27/20 [History Last Taken 06/03/23] tiotropium bromide 2.5 mcg/actuation mist for inhalation 2.5 mcg IH DAILY 07/27/20 [History Last Taken Unknown] benzonatate 100 mg capsule 100 mg PO TID PRN cough 05/29/23 [History Last Taken 06/02/23] plaqenil 200 mg PO BID arthritis 05/29/23 [History Last Taken Unknown] amoxicillin 875 mg-potassium clavulanate 125 mg tablet 1 tab PO BID #14 tabs 06/01/23 [Rx Last Taken 06/02/23] fluconazole 100 mg tablet 100 mg PO DAILY #5 tabs 06/02/23 [Rx Last Taken Unknown] Allergy/AdvReac Type Severity Reaction Status Date / Time bromide salts [bromide] AdvReac Hives Verified 05/29/23 11:35 strawberry AdvReac Hives Verified 05/29/23 11:35 Family History Mother Arthritis Diabetes Hypertension Osteoporosis Father Arthritis Heart disease Sister Arthritis Breast cancer Diabetes Hypertension Son Diabetes Other Alzheimer disease Anemia Hyperlipidemia Thyroid disorder Surgical History History of lumpectomy History of lung biopsy History of tubal ligation Hx of cholecystectomy Social History Smoking Status: Former smoker ROS ROS Narrative Unable to obtain a full review of systems. See HPI Physical Exam Const alert and oriented x3 Constitutional Narrative: Good BiPAP synchrony. RASS -1. General Appearance: cooperative and in distress Positive for mild HEENT normocephalic, head/scalp atraumatic, hearing grossly normal bilaterally and moist oral mucous membranes Eyes PERRL and EOMs intact bilaterally Neck no lymphadenopathy and supple Chest Chest Narrative: Increased AP diameter Resp Effort and Inspection: actively coughing Auscultation: diminished lung sounds; Negative for rales, rhonchi or wheezes Cardio regular rate, regular rhythm, S1 normal heart sound, S2 normal heart sound, no murmurs, no rub and no gallops GI normal to inspection, nondistended, normoactive bowel sounds, soft to palpation, non-tender and non-distended Extremity normal to inspection and full ROM General Extremity: Negative for clubbing or edema Skin no rashes or lesions noted Neuro oriented x3, CN's II-XII intact bilaterally, moves all extremities and no focal motor deficits Psych cooperative Mood & Affect: flat affect Medical Records Data Attestation: I reviewed the patient's medical records Medical records narrative: No pulmonary function tests are available for review. Per discharge summary, patient was discharged on 6 L/min recently following positive blood cultures for pneumococcus and Proteus. Patient does have a history of a PET scan several years ago, but none recently. 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 Willis in the past. Lab / Micro Data Attestation: I reviewed the patient's lab results. 06/04/23 03:53 06/04/23 04:45 Labs: Laboratory Results - last 24 hr 06/03/23 23:39: WBC 9.4, RBC 4.17 L, Hgb 13.1, Hct 40.8, MCV 97.8, MCH 31.4, MCHC 32.1, RDW Std Deviation 48.2 H, RDW Coeff of Nasir 13.3, Plt Count 501 H, MPV 8.6, Immature Gran % (Auto) 1.800 H, Neut % (Auto) 85.5 H, Lymph % (Auto) 7.2 L , Grady % (Auto) 4.8, Eos % (Auto) 0.0, Baso % (Auto) 0.7, Absolute Neuts (auto) 8.1 H, Absolute Lymphs (auto) 0.68 L, Nucleated RBC % 0, PT 12.7, INR 1.0, APTT 29.3, D-Dimer Quant (PE/DVT) 5.26 H*, Sodium 132 L, Potassium 5.1, Chloride 95 L , Carbon Dioxide 36.0 H, Anion Gap 1 L, BUN 22 H, Creatinine 0.94, Estim Creat Clear Calc 61.75, Est GFR (MDRD) Af Amer 75, Est GFR (MDRD) Non-Af 62, BUN/Creatinine Ratio 23.3 H, Glucose 142 H, Lactic Acid 1.0, Calcium 9.6, Total Bilirubin 0.40, AST 40 H, ALT 48, Alkaline Phosphatase 146 H, Troponin I High Sens 98 H, Total Protein 7.9, Albumin 2.5 L, Globulin 5.4 H, Albumin/Globulin Ratio 0.5 L 06/04/23 00:05: Urine Color Yellow, Urine Clarity Clear, Urine pH 5.0, Ur Specific [place] 1.025, Urine Protein 30 H, Urine Glucose (UA) Normal, Urine Ketones 5 H, Urine Occult Blood 250 H, Urine Nitrite Negative, Urine Bilirubin Negative, Urine Urobilinogen Normal, Ur Leukocyte Esterase Negative, Urine RBC 25-50 SEEN, Urine WBC 0 SEEN, Ur Squamous Epith Cells 5-10 SEEN, Urine Bacteria 0 SEEN, Hyaline Casts 0-5 SEEN, Fine Granular Casts 0-5 SEEN, Urine Mucus 0 SEEN 06/04/23 03:10: Troponin I High Sens Cancelled 06/04/23 03:53: WBC 8.3, RBC 3.79 L, Hgb 12.0, Hct 36.7 L, MCV 96.8, MCH 31.7, MCHC 32.7, RDW Std Deviation 48.5 H, RDW Coeff of Nasir 13.6, Plt Count 514 H, MPV 9.4, Immature Gran % (Auto) 1.500 H, Neut % (Auto) 89.1 H, Lymph % (Auto) 6.8 L , Grady % (Auto) 2.2, Eos % (Auto) 0.0, Baso % (Auto) 0.4, Absolute Neuts (auto) 7.4, Absolute Lymphs (auto) 0.56 L, Nucleated RBC % 0, Sodium Cancelled, Potassium Cancelled, Chloride Cancelled, Carbon Dioxide Cancelled, Anion Gap Cancelled, BUN Cancelled, Creatinine Cancelled, Estim Creat Clear Calc Cancelled, Est GFR (MDRD) Af Amer Cancelled, Est GFR (MDRD) Non-Af Cancelled, BUN/Creatinine Ratio Cancelled, Glucose Cancelled, Calcium Cancelled 06/04/23 04:45: Sodium 131 L, Potassium 5.0, Chloride 96 L, Carbon Dioxide 28.0, Anion Gap 7, BUN 22 H, Creatinine 0.70, Estim Creat Clear Calc 71.79, Est GFR (MDRD) Af Amer 105, Est GFR (MDRD) Non-Af 87, BUN/Creatinine Ratio 31.2 H, Glucose 142 H, Calcium 9.3, Troponin I High Sens 87 H Micro: Microbiology 06/03/23 23:40 Mucosa - Nose SARS-CoV-2, Influenza & RSV (PCR) - Final Influenzae A ABG Data ABG results: ABG 06/03/23 23:37 Specimen Type ART Sample Site R Radial pH 7.23 L Bicarbonate Actual 33.3 H Total CO2 36 Base Excess 6 H O2 Saturation 93 L O2 % 3.5 ABG pCO2 79.9 H* ABG pO2 84 Ismael Test Positive O2 Delivery Device Cannula Vent Mode Not entered Crit Call To/Read Back Yes Rhythm Strip Rhythm Strip: Sinus Rhythm Rate: 88 Ectopy: None Imaging Radiology Impression Chest X-Ray 06/04/23 00:00 IMPRESSION: 1. Overall improved aeration involving the right middle to lower lung with associated persisting airspace disease concerning for persisting pneumonia/aspiration in the appropriate clinical setting. 2. No new or worsening cardiopulmonary disease. Electronically Signed: Gurmeet Wong MD at 1:17 EST , Chest CTA 06/04/23 02:01 IMPRESSION: 1. Increased fullness of apical pleural-parenchymal thickening on the left with spiculated margins concerning for enlarging pathology. Consider PET/CT and/or tissue sampling if not recently performed. 2. New right [id number]-ly-[id number] pleural effusion. 3. Airspace disease involving the right lower lobe posteriorly and right middle lobe may represent aspiration/pneumonia in the appropriate clinical setting with a component of partial atelectasis also likely present. 4. Increasing fullness of upper lobe solitary pulmonary nodule measuring up to approximately 7 mm. Given increasing fullness/size, recommend PET/CT or tissue diagnosis. 5. Suspect reactive right hilar/mediastinal adenopathy. Electronically Signed: Gurmeet Wong MD at 4:13 EST , Charges/Coding Visit Charges Inpatient E&M: 95005 Init Hosp L3
--- NOTE | 2023-06-04 06:45 | PCM.PN.HOSP ---
Subjective Subjective Breathing better, weaned down to 3l/nc Objective Data Objective Data Vital Signs: Vital Signs Temp Pulse Resp BP Pulse Ox O2 Del Method O2 Flow Rate 37.2 C 84 22 H 164/75 H 91 Bi-pap 3 06/04/23 06:00 06/04/23 06:00 06/04/23 06:00 06/04/23 06:00 06/04/23 06:00 06/04/23 06:00 06/03/23 23:14 FiO2 35 06/04/23 06:00 Oxygen Flow Rate (L/min) 3 Oxygen Delivery Method Bi-pap Weight: 96.8 kg Body Mass Index (BMI) 36.6 Intake & Output: Intake and Output for Last 24 Hours 06/02/23 06/03/23 06/04/23 23:59 23:59 23:59 Intake Total 677.5 / 677.5 Output Total 450 / 450 Balance 227.5 / 227.5 Lab / Micro Data 06/04/23 03:53 06/04/23 04:45 Labs: Laboratory Results - last 24 hr 06/03/23 23:39: WBC 9.4, RBC 4.17 L, Hgb 13.1, Hct 40.8, MCV 97.8, MCH 31.4, MCHC 32.1, RDW Std Deviation 48.2 H, RDW Coeff of Nasir 13.3, Plt Count 501 H, MPV 8.6, Immature Gran % (Auto) 1.800 H, Neut % (Auto) 85.5 H, Lymph % (Auto) 7.2 L, [place] % (Auto) 4.8, Eos % (Auto) 0.0, Baso % (Auto) 0.7, Absolute Neuts (auto) 8.1 H, Absolute Lymphs (auto) 0.68 L, Nucleated RBC % 0, PT 12.7, INR 1.0, APTT 29.3, D-Dimer Quant (PE/DVT) 5.26 H*, Sodium 132 L, Potassium 5.1, Chloride 95 L, Carbon Dioxide 36.0 H, Anion Gap 1 L, BUN 22 H, Creatinine 0.94, Estim Creat Clear Calc 61.75, Est GFR (MDRD) Af Amer 75, Est GFR (MDRD) Non-Af 62, BUN/Creatinine Ratio 23.3 H, Glucose 142 H, Lactic Acid 1.0, Calcium 9.6, Total Bilirubin 0.40, AST 40 H, ALT 48, Alkaline Phosphatase 146 H, Troponin I High Sens 98 H, Total Protein 7.9, Albumin 2.5 L, Globulin 5.4 H, Albumin/Globulin Ratio 0.5 L 06/04/23 00:05: Urine Color Yellow, Urine Clarity Clear, Urine pH 5.0, Ur Specific [place] 1.025, Urine Protein 30 H, Urine Glucose (UA) Normal, Urine Ketones 5 H, Urine Occult Blood 250 H, Urine Nitrite Negative, Urine Bilirubin Negative, Urine Urobilinogen Normal, Ur Leukocyte Esterase Negative, Urine RBC 25-50 SEEN, Urine WBC 0 SEEN, Ur Squamous Epith Cells 5-10 SEEN, Urine Bacteria 0 SEEN, Hyaline Casts 0-5 SEEN, Fine Granular Casts 0-5 SEEN, Urine Mucus 0 SEEN 06/04/23 03:10: Troponin I High Sens Cancelled 06/04/23 03:53: WBC 8.3, RBC 3.79 L, Hgb 12.0, Hct 36.7 L, MCV 96.8, MCH 31.7, MCHC 32.7, RDW Std Deviation 48.5 H, RDW Coeff of Nasir 13.6, Plt Count 514 H, MPV 9.4, Immature Gran % (Auto) 1.500 H, Neut % (Auto) 89.1 H, Lymph % (Auto) 6.8 L, [place] % (Auto) 2.2, Eos % (Auto) 0.0, Baso % (Auto) 0.4, Absolute Neuts (auto) 7.4, Absolute Lymphs (auto) 0.56 L, Nucleated RBC % 0, Sodium Cancelled, Potassium Cancelled, Chloride Cancelled, Carbon Dioxide Cancelled, Anion Gap Cancelled, BUN Cancelled, Creatinine Cancelled, Estim Creat Clear Calc Cancelled, Est GFR (MDRD) Af Amer Cancelled, Est GFR (MDRD) Non-Af Cancelled, BUN/Creatinine Ratio Cancelled, Glucose Cancelled, Calcium Cancelled 06/04/23 04:45: Sodium 131 L, Potassium 5.0, Chloride 96 L, Carbon Dioxide 28.0, Anion Gap 7, BUN 22 H, Creatinine 0.70, Estim Creat Clear Calc 71.79, Est GFR (MDRD) Af Amer 105, Est GFR (MDRD) Non-Af 87, BUN/Creatinine Ratio 31.2 H, Glucose 142 H, Calcium 9.3, Troponin I High Sens 87 H Micro: Microbiology 06/03/23 23:40 Mucosa - Nose SARS-CoV-2, Influenza & RSV (PCR) - Final Influenzae A ABG Data ABG results: ABG 06/03/23 23:37 Specimen Type ART Sample Site R Radial pH 7.23 L Bicarbonate Actual 33.3 H Total CO2 36 Base Excess 6 H O2 Saturation 93 L O2 % 3.5 ABG pCO2 79.9 H* ABG pO2 84 Ismael Test Positive O2 Delivery Device Cannula Vent Mode Not entered Crit Call To/Read Back Yes Radiography Diagnostic Testing: Radiology Impression Chest X-Ray 06/04/23 00:00 IMPRESSION: 1. Overall improved aeration involving the right middle to lower lung with associated persisting airspace disease concerning for persisting pneumonia/aspiration in the appropriate clinical setting. 2. No new or worsening cardiopulmonary disease. Electronically Signed: Gurmeet Wong MD at 1:17 EST , Chest CTA 06/04/23 02:01 IMPRESSION: 1. Increased fullness of apical pleural-parenchymal thickening on the left with spiculated margins concerning for enlarging pathology. Consider PET/CT and/or tissue sampling if not recently performed. 2. New right kyota-pa-clmrmdrb pleural effusion. 3. Airspace disease involving the right lower lobe posteriorly and right middle lobe may represent aspiration/pneumonia in the appropriate clinical setting with a component of partial atelectasis also likely present. 4. Increasing fullness of upper lobe solitary pulmonary nodule measuring up to approximately 7 mm. Given increasing fullness/size, recommend PET/CT or tissue diagnosis. 5. Suspect reactive right hilar/mediastinal adenopathy. Electronically Signed: Gurmeet Wong MD at 4:13 EST , Rhythm Strip Rhythm Strip: Sinus Rhythm Rate: 88 Ectopy: None Physical Exam Const alert and no apparent distress HEENT head/scalp atraumatic and moist oral mucous membranes Resp normal respiratory effort and no retractions Auscultation: wheezes Cardio regular rate, regular rhythm, S1 normal heart sound and S2 normal heart sound GI normal to inspection, nondistended, normoactive bowel sounds Neuro Sensorium / Orientation: awake and alert Assessment & Plan Assessment/Plan (1) Right lower lobe pneumonia: QUALIFIERS: Pneumonia type: due to unspecified organism Qualified Code(s): J18.9 - Pneumonia, unspecified organism (2) Influenza A: (3) COPD exacerbation: (4) Acute and chronic respiratory failure with hypercapnia: (5) Elevated troponin: PLAN: Plan Acute hypoxic and hypercapnic respiratory failure improving 2/2 pneumonia, Influenza A, COPD exacerbation on BiPAP. Wean oxygen as able. pulm consult Suspected pneumococcal pneumonia RLL infiltrate on CTA on pip/tazo. check urine studies, sputum culture. Acute influenza A on oseltamivir Acute COPD exacerbation on BDs and methylprednisone Elevated troponin likely due to respiratory failure check echo on ASA Lung nodule Follow up CT as outpt. Chronic conditions: Parkinson's disease; with presumed adverse drug reaction to treatment regimen causing loose stools complicating Recent admission here from May 29, 2023 to June 01, 2023 for treatment of Right lower lobe pneumonia and urinary tract infection with bacteremia and hyponatremia with patient discharged on 6 L nasal cannula, Augmentin and fluconazole based on culture results Essential hypertension - Resume home medications as previous plus give as needed IV hydralazine for systolic blood pressure greater than 160 mmHg. Obesity; with BMI of 37.3 this admission - Weight loss will be recommended. Check TSH. Systemic lupus erythematosus + MCTD; with polyarthropathy - Continue current regimen and monitor for improvement. Osteoarthritis - Stable. Give Tylenol as needed. DVT prophylaxis - Lovenox 40 mg sq daily. Charges/Coding Visit Charges Inpatient E&M: 13357 Subs Hosp L2
--- NOTE | 2023-06-04 06:55 | ECHOD_ITS ---
Reason For Study: Elevated troponin Procedure This was a 2D Doppler, Color Flow transthoracic echocardiogram. Exam performed portable in ICU/CCU. Left Ventricle Normal LV size. The estimated ejection fraction is 65 %. No evidence for diastolic dysfunction. No regional wall motion abnormalities noted. Right Ventricle Normal RV size. Normal systolic function. Atria Normal left atrium. Normal right atrium. No doppler evidence for ASD. Mitral Valve There is no mitral valve stenosis. No mitral valve insufficiency. Tricuspid Valve There is no tricuspid stenosis. No tricuspid valve insufficiency. Unable to estimate RV systolic pressure due to inadequate jet, pulmonary artery pressure probably normal. Aortic Valve The aortic valve is not well visualized. There is no aortic stenosis. No aortic valve insufficiency. Pulmonic Valve There is no pulmonic valvular stenosis. No pulmonic valve insufficiency. Great Vessels Normal aortic root. Pericardium/Pleural No pericardial effusion. MMode/2D Measurements & Calculations LVIDd: 3.4 cm IVSd: 1.4 cm Ao root diam: 2.6 cm LVIDs: 1.9 cm LVPWd: 1.5 cm RVDd: 3.5 cm FS: 43.6 % LAV(MOD-bp): 54.5 ml LVAd ap4: 22.5 cm2 LVAd ap2: 25.4 cm2 LAV(MOD-bp) Indexed: 27.1 ml/m2 LVLd ap4: 7.2 cm LVLd ap2: 7.2 cm LAV(MOD-sp2): 40.8 ml EDV(MOD-sp4): 59.1 ml EDV(MOD-sp2): 74.7 ml LAV(MOD-sp4): 66.2 ml EDV(sp4-el): 59.6 ml EDV(sp2-el): 75.9 ml LVAs ap4: 9.9 cm2 LVAs ap2: 14.0 cm2 LVLs ap4: 5.9 cm LVLs ap2: 7.0 cm ESV(MOD-sp4): 15.5 ml ESV(MOD-sp2): 24.4 ml ESV(sp4-el): 14.1 ml ESV(sp2-el): 23.6 ml EF(MOD-sp4): 73.8 % EF(MOD-sp2): 67.3 % EF(sp4-el): 76.4 % SV(MOD-sp4): 43.7 ml SV(MOD-sp2): 50.3 ml SV(sp4-el): 45.5 ml LA dimension(2D): 4.5 cm LA A4 area: 22.0 cm2 RA A4 area: 15.9 cm2 TAPSE: 2.1 cm Doppler Measurements & Calculations MV E max forest: 81.1 cm/sec Lat Peak E' Forest: 4.8 cm/sec Med Peak E' Forest: 4.4 cm/sec MV A max forest: 115.3 cm/sec E/E' lat: 17.0 E/E' med: 18.5 MV E/A: 0.70 Ao V2 max: 219.2 cm/sec LV V1 max: 133.9 cm/sec PA V2 max: 98.5 cm/sec Ao max P.2 mmHg LV V1 max P.2 mmHg Ao V2 mean: 140.7 cm/sec LV V1 mean P.8 mmHg Ao mean P.0 mmHg LV V1 mean: 92.5 cm/sec Ao V2 VTI: 41.5 cm LV V1 VTI: 28.6 cm AV (velocity ratio): 0.69 TR max forest: 234.2 cm/sec TR max P.9 mmHg ECHO/Echo Complete Interpretation Summary The estimated ejection fraction is 65 %. No evidence for diastolic dysfunction. Ordering Physician: Saad Edwards Referring Physician: Haritha Alonso Performed By: Lisa Lopez RDCS
[2023-06-04] MEDS: Ipratropium 0.5 MG/2.5 ML SOLUTION INHALATION (07:14)
[2023-06-04] MEDS: Ipratropium/Albuterol Sulfate 3 ML AMPUL.NEB INHALATION ×3 (07:14→19:06)
[2023-06-04] MEDS: Oseltamivir Phosphate 75 MG Capsule PO ×2 (08:06→20:10)
[2023-06-04] MEDS: Aspirin 81 MG TAB.CHEW PO (08:07)
[2023-06-04] MEDS: Clopidogrel Bisulfate 75 MG Tablet PO (08:07)
[2023-06-04] MEDS: Cholecalciferol (VIT D3) 25 MCG TABLET (1,000 UNITS) 50 MCG PO (08:07)
[2023-06-04] MEDS: amLODIPine 5 MG Tablet PO (08:07)
[2023-06-04] MEDS: Hydroxychloroquine 200 MG Tablet PO ×2 (08:07→16:19)
[2023-06-04] MEDS: Fluconazole 100 MG Tablet PO (08:07)
[2023-06-04] MEDS: Oxybutynin 5 MG Tablet PO (08:08)
[2023-06-04] MEDS: Pantoprazole Sodium 40 MG in 0.9% Normal Saline (100mL MB+) 100 ML 330 MG IV (09:34)
--- NOTE | 2023-06-04 10:25 | CASEMGMT ---
GUY MAURO readmission note: Index admission: Admitted 05/29 w/Sepsis and RLL pna, UTI. Discharged home w/her on 06/02 w/rx for augmentin and fluconazole. Pt declined SNF, HHC, or OP therapy. Current admission: Admitted 06/04 w/weakness, SOB, lowered to floor. Found to have Influenza A. GUY MAURO spoke w/pt's daughter, Helen, and GD, Mandy, initially, and then spoke w/pt and discussed discharge plan. Pt did get her new rx's from [facility] @ discharge and started taking them as prescribed. Per Helen, pt was extremely weak when @ home and her was unable to care for her and they returned to the ED. Helen states she had to assist her w/her bath yesterday. Discussed options of SNF vs HHC and questions answered. PCP: Helen had scheduled an appt for pt w/GLOBAL ACCOUNT DIRECTOR Haritha Alonso for tomorrow and states she will call to cancel this today. Pulmonology: Pt was seeing Dr Short in the past, but per Helen, pt will not go back to him. Pt voices the same. They were made aware of several pulmonologists in the area. Pt and Helen both prefer for pt to go to see Dr Loi Parker and Cindy Boyle/GLOBAL ACCOUNT DIRECTOR. Family provided w/contact info. Helen states she will call to schedule an appt. Palliative: Pt meets criteria for Palliative referral per [facility] screening tool. Discussed palliative w/Helen and pt and they are interested in a referral. Dr Edwards made aware and order received. Referral sent to [facility] via e-mail. Oxygen: Pt was discharged home on 06/02 w/4 l/m O2 @ rest and 6 l/m w/exertion. Helen states someone can bring in portable o2 tank for pt to discharge home on, if she is able to return home. They confirm pt does have a pulse ox @ home. She denies having other DME needs. Plan: TBD by progress w/therapy. Pt prefers to discharge home, if able and is agreeable to HHC. Helen prefers [facility] HHC, but pt would like a list to review before deciding. Pt and Helen amenable to SNF, if therapy recommends. If so, they would like list of SNF's to review. Both pt and Helen state pt does not want to go to [facility]. PT/OT evals pending. Luzmaria GAON RN CM
[2023-06-04] MEDS: Ensure Clear 120 ML Liquid PO ×3 (13:08→20:09)
[2023-06-05] VITALS (21 sets, daily range): BP systolic 135–160; BP diastolic 61–76; PULSE 61–82; RESP 12–28; TEMP 36.1–36.8; O2SAT 87–100; BMI 36.5
[2023-06-05 03:57] LABS: Absolute Lymphocyte Count 0.69 X10^3/uL (0.83-4.51); Absolute Neutrophil Count 5.3 X10^3/uL (2.0-7.7); Basophil# 0.02 X10^3/uL; Basophil% 0.3 % (0-1); Hematocrit 37.9 % (37-47); Hemoglobin 12.2 g/dL (12.0-15.0); Lymphocyte # 0.69 X10^3/ul (0.83-4.51); Lymphocyte % 10.4 % (19-41); Mean Corp Hgb Conc 32.2 g/dL (32-36); Mean Corpuscular Volume 96.2 fL (81-99); Mean Platelet Vol. 8.8 fl (6.2-12.0); Monocyte# 0.48 X10^3/uL; Monocyte% 7.2 % (0-10); NRBC Flagged by Analyzer 0 % (0-5); Neutrophil # 5.34 X10^3/uL (2.7-7.7); Neutrophil % 80.6 % (47-70); Platelet Count 469 K/mm3 (150-450); RBC Distribution Width SD 46.1 fl (35.1-43.9); Red Blood Count 3.94 M/mm3 (4.2-5.4); White Blood Count 6.6 K/mm3 (4.4-11.0)
[2023-06-05 04:23] LABS: Anion Gap 2 (5-15); BUN 23 mg/dL (7-18); BUN/Creat Ratio 24.3 RATIO (10-20); Calcium,Total 9.6 mg/dL (8.5-10.1); Chloride 95 mmol/L (98-107); Creatinine, Serum 0.95 mg/dL (0.55-1.02); EST Glomerular Filtration Rate 62 mL/min (>60); Est Glom Filt Rate - Afr Amer 75 mL/min (>60); Estimated Creatinine Clearance 60.35 ml/min; Glucose 232 mg/dL (74-106); Potassium 4.3 mmol/L (3.5-5.1); Sodium Level 132 mmol/L (136-145)
[2023-06-05] MEDS: Piperacil/Tazobactam 3.375 GM in 0.9% Normal Saline (50mL MB+) 50 ML IV ×3 (04:30→20:27)
[2023-06-05] MEDS: traMADol 50 MG Tablet PO (04:30)
--- NOTE | 2023-06-05 06:54 | PN.HOSP_ITS ---
Subjective Subjective Feeling better. Objective Data Objective Data Vital Signs: Vital Signs Temp Pulse Resp BP Pulse Ox O2 Del Method O2 Flow Rate 36.3 C L 70 20 H 151/73 H 91 Room Air 4 06/05/23 06:00 06/05/23 06:00 06/05/23 06:00 06/05/23 06:00 06/05/23 06:00 06/05/23 06:00 06/05/23 06:00 FiO2 40 06/05/23 04:00 Oxygen Flow Rate (L/min) 4 Oxygen Delivery Method Room Air Weight: 96.5 kg Body Mass Index (BMI) 36.5 Intake & Output: Intake and Output for Last 24 Hours 06/03/23 06/04/23 06/05/23 23:59 23:59 23:59 Intake Total 1617.5 / 1617.5 300 / 300 Output Total 1050 / 1350 750 / 750 Balance 567.5 / 267.5 -450 / -450 Lab / Micro Data 06/05/23 03:38 06/05/23 03:38 Labs: Laboratory Results - last 24 hr 06/05/23 03:38: WBC 6.6, RBC 3.94 L, Hgb 12.2, Hct 37.9, MCV 96.2, MCH 31.0, MCHC 32.2, RDW Std Deviation 46.1 H, RDW Coeff of Nasir 13.0, Plt Count 469 H, MPV 8.8, Immature Gran % (Auto) 1.500 H, Neut % (Auto) 80.6 H, Lymph % (Auto) 10.4 L , [place] % (Auto) 7.2, Eos % (Auto) 0.0, Baso % (Auto) 0.3, Absolute Neuts (auto) 5.3, Absolute Lymphs (auto) 0.69 L, Nucleated RBC % 0, Sodium 132 L, Potassium 4.3, Chloride 95 L, Carbon Dioxide 35.0 H, Anion Gap 2 L, BUN 23 H, Creatinine 0.95, Estim Creat Clear Calc 60.35, Est GFR (MDRD) Af Amer 75, Est GFR (MDRD) Non-Af 62, BUN/Creatinine Ratio 24.3 H, Glucose 232 H, Calcium 9.6 Micro: Microbiology 06/04/23 10:10 Stool Stool Lactoferrin - Final 06/04/23 10:10 Stool Enteric Bacteriology - Final 06/04/23 00:05 Urine Catheter - Catheter Legionella Antigen - Final 06/04/23 00:05 Urine Catheter - Catheter Streptococcus pneumoniae Antigen (M - Final 06/03/23 23:40 Mucosa - Nose SARS-CoV-2, Influenza & RSV (PCR) - Final Influenzae A Radiography Diagnostic Testing: Radiology Impression Venous Doppler Study 06/04/23 04:14 Interpretation Summary Deep veins of the bilateral lower extremities are patent and compressible segmentally. There is no evidence of bilateral lower extremity deep vein thrombosis. The bilateral great saphenous veins appear patent and compressible segmentally. Ordering Physician: Darwin Tarango Referring Physician: Haritha Alonso Performed By: Billy Choi RVT Echocardiogram 06/04/23 06:55 Interpretation Summary The estimated ejection fraction is 65 %. No evidence for diastolic dysfunction. Ordering Physician: Saad Edwards Referring Physician: Haritha Alonso Performed By: Lisa Lopez RDCS Rhythm Strip Rhythm Strip: Sinus Rhythm Rate: 88 Ectopy: None Physical Exam Const alert and no apparent distress HEENT head/scalp atraumatic and moist oral mucous membranes Resp normal respiratory effort, no retractions, no use of accessory muscles and clear to auscultation bilaterally Cardio regular rate, regular rhythm, S1 normal heart sound and S2 normal heart sound GI normal to inspection, nondistended, normoactive bowel sounds, soft to palpation, non-tender and non-distended Neuro Sensorium / Orientation: awake and alert Assessment & Plan Assessment/Plan (1) Right lower lobe pneumonia: QUALIFIERS: Pneumonia type: due to unspecified organism Qualified Code(s): J18.9 - Pneumonia, unspecified organism (2) Influenza A: (3) COPD exacerbation: (4) Acute and chronic respiratory failure with hypercapnia: (5) Elevated troponin: PLAN: Plan Acute hypoxic and hypercapnic respiratory failure * improving * 2/2 pneumonia, Influenza A, COPD exacerbation * weaned down to [place]. * pulm consult Suspected pneumococcal pneumonia * RLL infiltrate on CTA, though this may be resolving from the pneumonia she had earlier this month as CXR appeared improved. * on pip/tazo. * sputum culture pending. Strep and legionella antigens pending * If infectious work up negative, then would dc antibiotics as she just completed a course. Acute influenza A * on oseltamivir Acute COPD exacerbation * on BDs and methylprednisone Elevated troponin * likely due to respiratory failure, as high as 98. * suspect due to demand ischemia from respiratory failure. * Echo shows an EF of 65% * on ASA * no additional work up at this time. Lung nodule * Follow up CT as outpt. Hyponatremia * chronic. * takes HCTZ chronically, which is currently being held. Follow up BMP as outpt, if has ongoing hyponatremia, consider SIADH work up. Chronic conditions: * Parkinson's disease; * Essential hypertension -fair control. on amlodipine. Hold HCTZ given hyponatremia. * Obesity; with BMI of 37.3 this admission - Weight loss will be recommended. Check TSH. * Systemic lupus erythematosus + MCTD; with polyarthropathy - Continue current regimen and monitor for improvement. * Osteoarthritis - Stable. Give Tylenol as needed. DVT prophylaxis - Lovenox 40 mg sq daily. Charges/Coding Visit Charges Inpatient E&M: 53865 Subs Hosp L2
[2023-06-05] MEDS: Ipratropium/Albuterol Sulfate 3 ML AMPUL.NEB INHALATION ×3 (07:07→19:02)
--- NOTE | 2023-06-05 07:09 | PCM.PN.INT ---
Assessment & Plan Assessment/Plan (1) Acute and chronic respiratory failure with hypercapnia: (2) Influenza A: (3) COPD exacerbation: PLAN: Plan RECOMMENDATIONS: 1. Continue BiPAP nightly and as needed. Could evaluate for BiPAP as an outpatient 2. Complete Tamiflu course 3. Possibly discontinue antibiotics if culture negative at 48 hours 4. Wean Solu-Medrol 5. Keep saturations between 90 and 94% 6. Repeat CT scan as an outpatient in 4 to 6 weeks to evaluate lung nodule 7. Okay to leave the intensive care unit from my perspective IMPRESSIONS: 1. Acute on chronic combined respiratory failure secondary to COPD exacerbation secondary to influenza A Patient will be initiated on Tamiflu given recent diagnosis of influenza A. Cannot exclude MDRO, so okay with broad-spectrum antibiotics pending cultures. However, patient has recently had a protracted antibiotic course. Patient does not typically use any CPAP/BiPAP with sleep. Patient will continue with BiPAP with sleep and as needed while hospitalized. Potentially evaluate as an outpatient with a sleep study for BiPAP 2. Lung nodule Patient does have some spiculated features of a lung nodule at the left apical margins. Patient likely will need a repeat imaging study once the acute phase is completed. Cannot exclude the need for a PET scan as an outpatient. Patient also has some lower sodium levels, so paraneoplastic SIADH would also be a consideration. 3. Parkinson's disease Patient reportedly has not been able to tolerate Sinemet as an outpatient 4. Obesity/advanced age/hypertension/SLE/osteoarthritis/recent hospitalization/tobacco abuse Complicates care, management, recovery and prognosis. Blood pressure is up a little bit this morning. Will increase Norvasc. Will continue to monitor. Patient does have as needed hydralazine if necessary. Patient has been confirmed a full code at this time. Subjective Subjective Patient did well overnight. Patient has been able to take extended breaks off of BiPAP. Patient did wear BiPAP with sleep and feels this has been helpful. Patient is still requiring supplemental oxygen to maintain saturations at approximately 4 L/min. Objective Data Objective Data Vital Signs: Vital Signs Temp Pulse Resp BP Pulse Ox O2 Del Method O2 Flow Rate 36.3 C L 70 20 H 151/73 H 91 Room Air 4 06/05/23 06:00 06/05/23 06:00 06/05/23 06:00 06/05/23 06:00 06/05/23 06:00 06/05/23 06:00 06/05/23 06:00 FiO2 40 06/05/23 04:00 Oxygen Flow Rate (L/min) 4 Oxygen Delivery Method Room Air Weight: 96.5 kg Body Mass Index (BMI) 36.5 Intake & Output: Intake and Output for Last 24 Hours 06/03/23 06/04/23 06/05/23 23:59 23:59 23:59 Intake Total 1617.5 / 1617.5 300 / 300 Output Total 1050 / 1350 750 / 750 Balance 567.5 / 267.5 -450 / -450 Lab / Micro Data Attestation: I reviewed the patient's lab results. 06/05/23 03:38 06/05/23 03:38 Labs: Laboratory Results - last 24 hr 06/05/23 03:38: WBC 6.6, RBC 3.94 L, Hgb 12.2, Hct 37.9, MCV 96.2, MCH 31.0, MCHC 32.2, RDW Std Deviation 46.1 H, RDW Coeff of Nasir 13.0, Plt Count 469 H, MPV 8.8, Immature Gran % (Auto) 1.500 H, Neut % (Auto) 80.6 H, Lymph % (Auto) 10.4 L, [place] % (Auto) 7.2, Eos % (Auto) 0.0, Baso % (Auto) 0.3, Absolute Neuts (auto) 5.3, Absolute Lymphs (auto) 0.69 L, Nucleated RBC % 0, Sodium 132 L, Potassium 4.3, Chloride 95 L, Carbon Dioxide 35.0 H, Anion Gap 2 L, BUN 23 H, Creatinine 0.95, Estim Creat Clear Calc 60.35, Est GFR (MDRD) Af Amer 75, Est GFR (MDRD) Non-Af 62, BUN/Creatinine Ratio 24.3 H, Glucose 232 H, Calcium 9.6 Micro: Microbiology 06/04/23 10:10 Stool Stool Lactoferrin - Final 06/04/23 10:10 Stool Enteric Bacteriology - Final 06/04/23 00:05 Urine Catheter - Catheter Legionella Antigen - Final 06/04/23 00:05 Urine Catheter - Catheter Streptococcus pneumoniae Antigen (M - Final 06/03/23 23:40 Mucosa - Nose SARS-CoV-2, Influenza & RSV (PCR) - Final Influenzae A Radiography Diagnostic Testing: Radiology Impression Venous Doppler Study 06/04/23 04:14 Interpretation Summary Deep veins of the bilateral lower extremities are patent and compressible segmentally. There is no evidence of bilateral lower extremity deep vein thrombosis. The bilateral great saphenous veins appear patent and compressible segmentally. Ordering Physician: Darwin Tarango Referring Physician: Haritha Alonso Performed By: Billy Choi Thierry Echocardiogram 06/04/23 06:55 Interpretation Summary The estimated ejection fraction is 65 %. No evidence for diastolic dysfunction. Ordering Physician: Saad Edwards Referring Physician: Haritha Alonso Performed By: Lisa Lopez [facility] Rhythm Strip Rhythm Strip: Sinus Rhythm Rate: 70 Ectopy: None Physical Exam Const alert, oriented x3 and no apparent distress Constitutional Narrative: Off BiPAP during my evaluation. RASS 0. General Appearance: cooperative HEENT normocephalic, head/scalp atraumatic, hearing grossly normal bilaterally and moist oral mucous membranes Eyes PERRL and EOMs intact bilaterally Eyes Narrative: Glasses in place Neck no lymphadenopathy and supple Chest Chest Narrative: Increased AP diameter Resp Effort and Inspection: Negative for actively coughing Auscultation: diminished lung sounds; Negative for rales, rhonchi or wheezes Cardio regular rate, regular rhythm, S1 normal heart sound, S2 normal heart sound, no murmurs, no rub and no gallops GI normal to inspection, nondistended, normoactive bowel sounds, soft to palpation, non-tender and non-distended Extremity normal to inspection and full ROM General Extremity: Negative for clubbing or edema Skin no rashes or lesions noted Neuro oriented x3, CN's II-XII intact bilaterally, moves all extremities and no focal motor deficits Psych cooperative Mood & Affect: flat affect Charges/Coding Visit Charges Inpatient E&M: 16682 Subs Hosp L2
[2023-06-05] MEDS: 0.9% Saline Lock 10 ML Syringe IV ×2 (07:56→14:14)
[2023-06-05] MEDS: Cholecalciferol (VIT D3) 25 MCG TABLET (1,000 UNITS) 50 MCG PO (08:07)
[2023-06-05] MEDS: Ensure Clear 120 ML Liquid PO ×4 (08:07→20:27)
[2023-06-05] MEDS: amLODIPine 10 MG Tablet PO (08:08)
[2023-06-05] MEDS: Aspirin 81 MG TAB.CHEW PO (08:08)
[2023-06-05] MEDS: Hydroxychloroquine 200 MG Tablet PO ×2 (08:08→16:06)
[2023-06-05] MEDS: Fluconazole 100 MG Tablet PO (08:08)
[2023-06-05] MEDS: Enoxaparin 40 MG/0.4 ML Syringe SC (08:08)
[2023-06-05] MEDS: Oseltamivir Phosphate 75 MG Capsule PO ×2 (08:08→20:27)
[2023-06-05] MEDS: Oxybutynin 5 MG Tablet PO (08:08)
--- NOTE | 2023-06-05 09:54 | CASEMGMT ---
Addendum entered by Truong Lee 06/05/23 10:17: GUY MAURO spoke w/dtr, Helen. She was made aware Dr Bryson would like pt to be seen by manufacturing engineer automotive w/in a couple weeks of discharge. She states she has not scheduled an appt yet w/Dr Parker or Cindy Boyle/[facility], but plans to do so today. GUY MAURO offered to call and schedule it for her, but dtr states she prefers to schedule it, as she plans to take her to the appt. Helen also made aware pt is wanting to go to SNF now and that a list will be provided for them to review. She was made aware for them to give top 3 SNF preferences. She voices appreciation. eHlen and pt both reiterated to this RN [place] that they do not want SW. Original Note: GUY MAURO NOTE: Reviewed therapy notes from yesterday. RN [place] to room. Pt resting in bed. Discussed discharge planning and asked pt how she felt after working w/therapy yesterday. She states, I think it would be best if I go somewhere to get stronger before I go back home. I have to be stronger in order for my to be able to take care of me at home . She was made aware a SNF list will be provided for her and her family to review. She voices appreciation. Luzmaria CRUZ RN, CM
--- NOTE | 2023-06-05 10:29 | CASEMGMT ---
Discharge Planning A list of?SNF providers including quality and resource use data and consistent with the patient's preferred geographic region, medical needs, and insurance network was created in [employer] Guide.? This list was provided to the SW. Jacque Arce Discharge Planning Asst.
--- NOTE | 2023-06-05 13:16 | CASEMGMT ---
SW was informed patient would like to go to a [facility] for rehab. SW met with patient. Introduced self and role at [facility]. SW mentioned to patient that SW was informed she would like to go to a detention facility for rehab. Patient said she is not sure what she is doing yet. Patient would like to talk with her family first. SW did leave a list of detention facility providers including quality and resource use data and consistent with patient?s preferred geographic region, medical needs, and insurance network were provided from the [employer] Guide. SARAH told patient SARAH can check back. Plan: possibly SNF, but patient wants to talk with her family first. Bekah Hines INSULATION BATTING MACHINE OPERATOR [employer]CH[employer]?
[2023-06-05] MEDS: hydroCHLOROthiazide 25 MG Tablet PO (16:06)
[2023-06-06 03:00] VITALS: BP 134/93; PULSE 62; RESP 15; TEMP 36.4; O2SAT 95
[2023-06-06] MEDS: Piperacil/Tazobactam 3.375 GM in 0.9% Normal Saline (50mL MB+) 50 ML IV (05:05)
[2023-06-06 06:00] VITALS: BMI 36.8
[2023-06-06] MEDS: traMADol 50 MG Tablet PO (06:30)
[2023-06-06 06:49] LABS: Absolute Lymphocyte Count 0.72 X10^3/uL (0.83-4.51); Absolute Neutrophil Count 7.3 X10^3/uL (2.0-7.7); Basophil# 0.02 X10^3/uL; Basophil% 0.2 % (0-1); Hematocrit 36.9 % (37-47); Hemoglobin 11.9 g/dL (12.0-15.0); Lymphocyte # 0.72 X10^3/ul (0.83-4.51); Lymphocyte % 8.5 % (19-41); Mean Corp Hgb Conc 32.2 g/dL (32-36); Mean Corpuscular Hgb 31.3 pg (27.0-32.0); Mean Corpuscular Volume 97.1 fL (81-99); Monocyte# 0.37 X10^3/uL; Monocyte% 4.3 % (0-10); NRBC Flagged by Analyzer 0 % (0-5); Neutrophil % 85.8 % (47-70); Platelet Count 467 K/mm3 (150-450); RBC Distribution Width CV 13.1 % (11.6-14.6); RBC Distribution Width SD 46.6 fl (35.1-43.9); White Blood Count 8.5 K/mm3 (4.4-11.0)
--- NOTE | 2023-06-06 06:49 | PN.HOSP_ITS ---
Subjective Subjective Breathing better. Objective Data Objective Data Vital Signs: Vital Signs Temp Pulse Resp BP Pulse Ox O2 Del Method O2 Flow Rate 36.4 C L 62 15 134/93 H 95 Nasal Cannula 4 06/06/23 03:00 06/06/23 03:00 06/06/23 03:00 06/06/23 03:00 06/06/23 03:00 06/06/23 03:30 06/06/23 03:30 FiO2 35 06/05/23 23:09 Oxygen Flow Rate (L/min) 4 Oxygen Delivery Method Nasal Cannula Weight: 97.5 kg Body Mass Index (BMI) 36.8 Intake & Output: Intake and Output for Last 24 Hours 06/04/23 06/05/23 06/06/23 23:59 23:59 23:59 Intake Total 1617.5 / 1617.5 1360 / 1360 150 / 150 Output Total 1050 / 1350 1325 / 1325 500 / 500 Balance 567.5 / 267.5 35 / 35 -350 / -350 Lab / Micro Data 06/06/23 03:10 06/06/23 03:10 Micro: Microbiology 06/03/23 23:40 Mucosa - Nose SARS-CoV-2, Influenza & RSV (PCR) - Final Influenzae A 06/04/23 17:25 Sputum, Expectorated/Coughed Gram Stain - Final 06/04/23 10:10 Stool Stool Lactoferrin - Final 06/04/23 10:10 Stool Enteric Bacteriology - Final 06/04/23 00:05 Urine Catheter - Catheter Legionella Antigen - Final 06/04/23 00:05 Urine Catheter - Catheter Streptococcus pneumoniae Antigen (M - Final Rhythm Strip Rhythm Strip: Sinus Rhythm Rate: 70 Ectopy: None Physical Exam Const alert and no apparent distress HEENT head/scalp atraumatic and moist oral mucous membranes Resp normal respiratory effort, no retractions, no use of accessory muscles and clear to auscultation bilaterally Cardio regular rate, regular rhythm, S1 normal heart sound and S2 normal heart sound GI normal to inspection, nondistended, normoactive bowel sounds, soft to palpation, non-tender and non-distended Extremity normal to inspection Assessment & Plan Assessment/Plan (1) Right lower lobe pneumonia: QUALIFIERS: Pneumonia type: due to unspecified organism Qualified Code(s): J18.9 - Pneumonia, unspecified organism (2) Influenza A: (3) COPD exacerbation: (4) Elevated troponin: PLAN: Plan Acute hypoxic and hypercapnic respiratory failure * improving * 2/2 pneumonia, Influenza A, COPD exacerbation * weaned down to [place]. * pulm consult Suspected pneumococcal pneumonia * RLL infiltrate on CTA, though this may be resolving from the pneumonia she had earlier this month as CXR appeared improved. * on pip/tazo. * sputum culture pending. Strep and legionella antigens pending * If infectious work up negative, then would dc antibiotics as she just completed a course. Acute influenza A * on oseltamivir Acute COPD exacerbation * on BDs and prednisone taper Elevated troponin * likely due to respiratory failure, as high as 98. * suspect due to demand ischemia from respiratory failure. * Echo shows an EF of 65% * on ASA * no additional work up at this time. Lung nodule * Follow up with pulm as outpt. Outpt CT in 4-6 weeks. Hyponatremia * chronic. * takes HCTZ chronically, which is currently being held. Follow up BMP as outpt, if has ongoing hyponatremia, consider SIADH work up. Chronic conditions: * Parkinson's disease; * Essential hypertension -fair control. on amlodipine. Hold HCTZ given hyponatremia. * Obesity; with BMI of 37.3 this admission - Weight loss will be recommended. Check TSH. * Systemic lupus erythematosus + MCTD; with polyarthropathy - Continue current regimen and monitor for improvement. * Osteoarthritis - Stable. Give Tylenol as needed. DVT prophylaxis - Lovenox 40 mg sq daily. Dispo: plan for SNF. Charges/Coding Visit Charges Inpatient E&M: 66385 Subs Hosp L2
[2023-06-06 06:59] LABS: Anion Gap 4 (5-15); BUN 26 mg/dL (7-18); BUN/Creat Ratio 27.3 RATIO (10-20); Calcium,Total 9.4 mg/dL (8.5-10.1); Chloride 93 mmol/L (98-107); Creatinine, Serum 0.95 mg/dL (0.55-1.02); EST Glomerular Filtration Rate 61 mL/min (>60); Est Glom Filt Rate - Afr Amer 74 mL/min (>60); Estimated Creatinine Clearance 60.69 ml/min; Glucose 251 mg/dL (74-106); Potassium 4.1 mmol/L (3.5-5.1); Sodium Level 132 mmol/L (136-145)
[2023-06-06 07:24] VITALS: PULSE 72; RESP 24; O2SAT 93
[2023-06-06] MEDS: Ipratropium/Albuterol Sulfate 3 ML AMPUL.NEB INHALATION ×2 (07:24→13:51)
--- NOTE | 2023-06-06 08:17 | PCM.PN.INT ---
Assessment & Plan Assessment/Plan (1) Acute and chronic respiratory failure with hypercapnia: (2) Influenza A: (3) COPD exacerbation: PLAN: Plan RECOMMENDATIONS: 1. Continue BiPAP with sleep. Could evaluate for BiPAP as an outpatient 2. Complete Tamiflu course 3. Would continue BiPAP at TCU 4. Okay to transition to prednisone and wean over 12 to 14 days 5. Keep saturations between 90 and 94% 6. Repeat CT scan as an outpatient in 4 to 6 weeks to evaluate lung nodule 7. Okay to go to TCU from a pulmonary perspective IMPRESSIONS: 1. Acute on chronic combined respiratory failure secondary to COPD exacerbation secondary to influenza A Patient was initiated on Tamiflu given recent diagnosis of influenza A. Patient can likely complete antibiotics per previous culture recommendations. Patient does not typically use any CPAP/BiPAP with sleep. Patient will continue with BiPAP with sleep and as needed while hospitalized. Would continue this in the TCU during rehab. Unfortunately, qualification for BiPAP therapy will require a sleep study as an outpatient 2. Lung nodule Patient does have some spiculated features of a lung nodule at the left apical margins. Patient likely will need a repeat imaging study once the acute phase is completed. Cannot exclude the need for a PET scan as an outpatient. Patient also has some lower sodium levels, so paraneoplastic SIADH would also be a consideration. 3. Parkinson's disease Patient reportedly has not been able to tolerate Sinemet as an outpatient. Patient does not appear to have significant cogwheeling or stiffness at this time. 4. Obesity/advanced age/hypertension/SLE/osteoarthritis/recent hospitalization/tobacco abuse Complicates care, management, recovery and prognosis. Blood pressure is up a little bit this morning. Will continue Norvasc. Hydrochlorothiazide was added yesterday. Will continue to monitor. Patient does have as needed hydralazine if necessary. Patient has been confirmed a full code at this time. Subjective Subjective Patient feels significantly improved compared to previous. Patient states her respiratory status is much improved, but she still feels significantly weak. Patient states cough is improving. Patient tolerating 3 L/min to maintain saturations. Patient does admit the BiPAP does make her feel more awake during the day. Objective Data Objective Data Vital Signs: Vital Signs Temp Pulse Resp BP Pulse Ox O2 Del Method O2 Flow Rate 36.4 C L 72 24 H 134/93 H 93 Nasal Cannula 3 06/06/23 03:00 06/06/23 07:24 06/06/23 07:24 06/06/23 03:00 06/06/23 07:24 06/06/23 07:24 06/06/23 07:24 FiO2 35 06/05/23 23:09 Oxygen Flow Rate (L/min) 3 Oxygen Delivery Method Nasal Cannula Weight: 97.5 kg Body Mass Index (BMI) 36.8 Intake & Output: Intake and Output for Last 24 Hours 06/04/23 06/05/23 06/06/23 23:59 23:59 23:59 Intake Total 1617.5 / 1617.5 1360 / 1360 150 / 150 Output Total 1050 / 1350 1325 / 1325 500 / 500 Balance 567.5 / 267.5 35 / 35 -350 / -350 Medical Nutrition Assessment Dietitian: Malnutrition Criteria Met Start: 06/04/23 09:48 Freq: Status: Active Protocol: Document 06/06/23 08:12 AG (Rec: 06/06/23 08:12 [id number]) Nutrition Malnutrition Evidence of Malnutrition Exists Yes Malnutrition (moderate): Acute Illness/Injury Evidenced By Suboptimal Energy Intake ( Moderate),Weight Loss ( Moderate) Clinical Problem Acute Disease or Injury Related Malnutrition Etiology moderate, acute malnutrition related to inadequate energy intake during acute illness Signs/Symptoms as evidenced by estimated energy intake meeting < 75% of estimated energy needs > 1 week, unintentional 3% wt loss x 1 week Status Active Problem Recommendation Dietitian Recommendations/Changes recommend advance diet as tolerated to regular; ensure w / medpass given evidence of acute malnutrition. Lab / Micro Data Attestation: I reviewed the patient's lab results. 06/06/23 03:10 06/06/23 03:10 Labs: Laboratory Results - last 24 hr 06/06/23 03:10: WBC 8.5, RBC 3.80 L, Hgb 11.9 L, Hct 36.9 L, MCV 97.1, MCH 31.3, MCHC 32.2, RDW Std Deviation 46.6 H, RDW Coeff of Nasir 13.1, Plt Count 467 H, MPV 9.0, Immature Gran % (Auto) 1.200 H, Neut % (Auto) 85.8 H, Lymph % (Auto) 8.5 L, [place] % (Auto) 4.3, Eos % (Auto) 0.0, Baso % (Auto) 0.2, Absolute Neuts (auto) 7.3, Absolute Lymphs (auto) 0.72 L, Nucleated RBC % 0, Sodium 132 L, Potassium 4.1, Chloride 93 L, Carbon Dioxide 35.0 H, Anion Gap 4 L, BUN 26 H, Creatinine 0.95, Estim Creat Clear Calc 60.69, Est GFR (MDRD) Af Amer 74, Est GFR (MDRD) Non-Af 61, BUN/Creatinine Ratio 27.3 H, Glucose 251 H, Calcium 9.4 Micro: Microbiology 06/03/23 23:40 Mucosa - Nose SARS-CoV-2, Influenza & RSV (PCR) - Final Influenzae A 06/04/23 17:25 Sputum, Expectorated/Coughed Gram Stain - Final 06/04/23 10:10 Stool Stool Lactoferrin - Final 06/04/23 10:10 Stool Enteric Bacteriology - Final 06/04/23 00:05 Urine Catheter - Catheter Legionella Antigen - Final 06/04/23 00:05 Urine Catheter - Catheter Streptococcus pneumoniae Antigen (M - Final Rhythm Strip Rhythm Strip: Sinus Rhythm Rate: 62 Ectopy: None Physical Exam Const alert, oriented x3 and no apparent distress Constitutional Narrative: Off BiPAP during my evaluation. RASS 0. HEENT normocephalic, head/scalp atraumatic, hearing grossly normal bilaterally and moist oral mucous membranes Eyes PERRL and EOMs intact bilaterally Eyes Narrative: Glasses in place Neck no lymphadenopathy and supple Chest Chest Narrative: Increased AP diameter Resp Effort and Inspection: Negative for actively coughing Auscultation: diminished lung sounds; Negative for rales, rhonchi or wheezes Cardio regular rate, regular rhythm, S1 normal heart sound, S2 normal heart sound, no murmurs, no rub and no gallops GI normal to inspection, nondistended, normoactive bowel sounds, soft to palpation, non-tender and non-distended Extremity normal to inspection and full ROM General Extremity: Negative for clubbing or edema Skin no rashes or lesions noted Neuro oriented x3, CN's II-XII intact bilaterally, moves all extremities and no focal motor deficits Psych cooperative and affect normal Charges/Coding Visit Charges Inpatient E&M: 82772 Subs Hosp L2
[2023-06-06 08:35] VITALS: BP 175/86; PULSE 80; RESP 20; TEMP 36.1; O2SAT 94
[2023-06-06] MEDS: Oseltamivir Phosphate 75 MG Capsule PO (08:46)
[2023-06-06] MEDS: Oxybutynin 5 MG Tablet PO (08:46)
[2023-06-06] MEDS: hydroCHLOROthiazide 25 MG Tablet PO (08:46)
[2023-06-06] MEDS: Hydroxychloroquine 200 MG Tablet PO (08:46)
[2023-06-06] MEDS: Ensure Clear 120 ML Liquid PO (08:46)
[2023-06-06] MEDS: Cholecalciferol (VIT D3) 25 MCG TABLET (1,000 UNITS) 50 MCG PO (08:46)
[2023-06-06] MEDS: Fluconazole 100 MG Tablet PO (08:47)
[2023-06-06] MEDS: Enoxaparin 40 MG/0.4 ML Syringe SC (08:47)
[2023-06-06] MEDS: Aspirin 81 MG TAB.CHEW PO (08:47)
[2023-06-06] MEDS: amLODIPine 10 MG Tablet PO (08:47)
[2023-06-06] MEDS: 0.9% Saline Lock 10 ML Syringe IV (08:47)
--- NOTE | 2023-06-06 09:41 | CASEMGMT ---
SW met with patient again to discuss her decision on d/c. Patient said she would like to go to [facility]. SW asked patient if she picked any other facilities in case TCU cannot take her. Patient did not have any other choices, but said definitely not [facility]. SW will make a referral and get back to patient. SW made a referral to [facility] in TCU. Bekah ALANIS
--- NOTE | 2023-06-06 11:04 | CASEMGMT ---
TCU can take patient and [facility] will start process to obtain insurance authorization. SARAH met with patient and her daughter Helen. SARAH let them know TCU can take patient. SARAH explained how the process works. SARAH will let them know when SARAH hears something. Helen was going to get clothes together for patient. Bekah Hines CRUISE GUIDE ANNABELLE
--- NOTE | 2023-06-06 11:57 | TREXTCAR_ITS ---
Diet Diet Order/Speech Therapy: 06/04/23 14:53 Diet: Cardiac - Heart Healthy Is pt able to select menu?: Yes Diet Comments: advance as tolerated Routine Orders/Code Status O2 Liters per Minute: 3 O2 Frequency: Continuous Routine Lab Work: CBC (weekly) and BMP (weekly) Code Status: Full Code Therapies Physical Therapy: Eval and Treat Occupational Therapy: Eval and Treat Problem/Diagnosis (1) Right lower lobe pneumonia: Status: Acute Code(s): J18.9 - Pneumonia, unspecified organism (2) Influenza A: Status: Acute Code(s): J10.1 - Influenza due to other identified influenza virus with other respiratory manifestations (3) COPD exacerbation: Status: Chronic Code(s): J44.1 - Chronic obstructive pulmonary disease with (acute) exacerbation (4) Elevated troponin: Status: Acute Code(s): R79.89 - Other specified abnormal findings of blood chemistry Plan Acute hypoxic and hypercapnic respiratory failure * improving * 2/2 pneumonia, Influenza A, COPD exacerbation * weaned down to NC. * pulm consult Suspected pneumococcal pneumonia * RLL infiltrate on CTA, though this may be resolving from the pneumonia she had earlier this month as CXR appeared improved. * on pip/tazo. * sputum culture pending. Strep and legionella antigens pending * If infectious work up negative, then would dc antibiotics as she just co mpleted a course. Acute influenza A * on oseltamivir Acute COPD exacerbation * on BDs and prednisone taper Elevated troponin * likely due to respiratory failure, as high as 98. * suspect due to demand ischemia from respiratory failure. * Echo shows an EF of 65% * on ASA * no additional work up at this time. Lung nodule * Follow up with pulm as outpt. Outpt CT in 4-6 weeks. Hyponatremia * chronic. * takes HCTZ chronically, which is currently being held. Follow up BMP as outpt, if has ongoing hyponatremia, consider SIADH work up. Chronic conditions: * Parkinson's disease; * Essential hypertension -fair control. on amlodipine. Hold HCTZ given hyponatremia. * Obesity; with BMI of 37.3 this admission - Weight loss will be recommended. Check TSH. * Systemic lupus erythematosus + MCTD; with polyarthropathy - Continue current regimen and monitor for improvement. * Osteoarthritis - Stable. Give Tylenol as needed. DVT prophylaxis - Lovenox 40 mg sq daily. Dispo: plan for SNF. Allergies/Procedures Done in Hospital Allergies bromide salts [bromide] Adverse Reaction (Verified 05/29/23 11:35) Hives strawberry Adverse Reaction (Verified 05/29/23 11:35) Hives frozen strawberries Procedures: None Type of Care/Length of Stay Estimated LOS: Convalescent Care Less Than 30 days Type of Care Needed: Skilled Rehab Potential: Fair Prognosis: Good Additional Orders/Day of Discharge Day of Discharge: 06/06/23 Dietary and Speech Recommendations Dietitian Recommendations/Changes: recommend advance diet as tolerated to regular; ensure w/ medpass given evidence of acute malnutrition. Discharge Plan Admission Admit Date/Time: 06/04/23 01:43 Primary Reason for Your Visit: COPD exacerbation. Attending Provider: Saad Edwards Primary Care Provider: Haritha Alonso Consulting Providers: Darwin Tarango; Robbin Carvajal; Ari Bryson; Loi Parker; Richie Caldera; Lara Soni; Alex Hurd; Coral Elise; Calderon Huffman; Dominic Joaquin; Juan Miguel Hickey; Mickey Fink; Sascha Day Discharge Orders/Prescriptions Prescriptions: New aspirin 81 mg Tablet,Chewable 81 mg PO DAILYCM Qty: 0 0RF Ensure Clear Liquid 120 ml PO 4X/DAY Qty: 0 0RF oseltamivir 75 mg Capsule 75 mg PO BID Qty: 0 0RF Rx Instructions: through 06/08/2023 prednisone 10 mg tablet 10 mg PO DAILY Qty: 30 0RF Rx Instructions: 4 tabs daily for 3 days, then 3 tabs daily for 3 days, then 2 tabs daily for 3 days, then 1 tab daily for 3 days Continued tramadol 50 MG tablet 50 mg PO DAILY PRN (Reason: Pain Score 1-10) hydrochlorothiazide 12.5 MG capsule 25 mg PO DAILY Bevespi Aerosphere 10.7 GM HFA aerosol inhaler 10.7 g IH BID oxybutynin chloride 5 MG tablet 5 - 10 mg PO DAILY tiotropium bromide 4 GM mist 2.5 mcg IH DAILY potassium chloride 10 MEQ tablet extended release 10 meq PO DAILY PRN (Reason: when taking Lasix) hydroxychloroquine 200 MG tablet 200 mg PO BIDCM cholecalciferol (vitamin D3) 2,000 UNIT capsule 2,000 unit PO DAILY amoxicillin-pot clavulanate 875-125 mg tablet 1 tab PO BID Qty: 14 0RF Rx Instructions: through 06/08/2023 benzonatate 100 mg capsule 100 mg PO TID PRN Patient Comments: TAKE 1 CAPSULE BY MOUTH 2 TO 3 TIMES DAILY NEEDED FOR COUGH plaqenil 200 mg PO BID fluconazole 100 mg tablet 100 mg PO DAILY Qty: 5 0RF Changed amlodipine 2.5 MG tablet 10 mg PO DAILY Qty: 30 0RF Held prednisone 5 MG tablet 5 - 10 mg PO DAILY PRN (Reason: Lupus flare) Hold Instructions: resume when you have completed the prednisone taper. 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
--- NOTE | 2023-06-06 12:10 | DS.PCM_ITS ---
Providers Date of Admission: 06/04/23 Primary Care Physician: VALENTE Boyle Consultations 06/04/23 03:43 Consult: Marketing Planner / Pulmonary Medicine Routine Consulting Provider: Intensivists/Pulmonary Med Reason for Consult: Respiratory Failure, COPD exacerbation EMERGENT Consult: No MD Notified: Yes Date Notified: 06/04/23 Time Notified: 03:43 Method of Notification: Text Reason For Visit: ACUTE EXACERBATION OF COPD WITH ACUTE HYPOXIC RESP Diagnosis Discharge Diagnosis (1) Right lower lobe pneumonia: Status: Acute Code(s): J18.9 - Pneumonia, unspecified organism Qualifiers: Pneumonia type: due to unspecified organism Qualified Code(s): J18.9 - Pneumonia, unspecified organism (2) Influenza A: Status: Acute Code(s): J10.1 - Influenza due to other identified influenza virus with other respiratory manifestations (3) COPD exacerbation: Status: Chronic Code(s): J44.1 - Chronic obstructive pulmonary disease with (acute) exacerbation (4) Elevated troponin: Status: Acute Code(s): R79.89 - Other specified abnormal findings of blood chemistry Plan Acute hypoxic and hypercapnic respiratory failure * improving * 2/2 pneumonia, Influenza A, COPD exacerbation * weaned down to [place]. * pulm consult Suspected pneumococcal pneumonia * RLL infiltrate on CTA, though this may be resolving from the pneumonia she had earlier this month as CXR appeared improved. * on pip/tazo. * sputum culture pending. Strep and legionella antigens pending * Infectious workup has been negative patient was already being treated for pneumonia with Augmentin. Imaging shows improvement of the infiltrates we will have the patient resume the Augmentin with completion date that she was originally supposed to complete. Acute influenza A * on oseltamivir Acute COPD exacerbation * on BDs and prednisone taper Elevated troponin * likely due to respiratory failure, as high as 98. * suspect due to demand ischemia from respiratory failure. * Echo shows an EF of 65% * on ASA * no additional work up at this time. Lung nodule * Follow up with pulm as outpt. Outpt CT in 4-6 weeks. Hyponatremia * chronic. * takes HCTZ chronically, which is currently being held. Follow up BMP as outpt, if has ongoing hyponatremia, consider SIADH work up. Chronic conditions: * Parkinson's disease; * Essential hypertension -fair control. on amlodipine. Hold HCTZ given hyponatremia. * Obesity; with BMI of 37.3 this admission - Weight loss will be recommended. Check TSH. * Systemic lupus erythematosus + MCTD; with polyarthropathy - Continue current regimen and monitor for improvement. * Osteoarthritis - Stable. Give Tylenol as needed. DVT prophylaxis - Lovenox 40 mg sq daily. Dispo: Discharged to transitional care unit. Medications at Discharge Home Medications hydrochlorothiazide 12.5 mg capsule 25 mg PO DAILY 03/02/14 tramadol 50 mg tablet 50 mg PO DAILY PRN Pain Score 1-10 03/02/14 glycopyrrolate 9 mcg-formoterol 4.8 mcg HFA aerosol inhaler (Bevespi Aerosphere) 10.7 g IH BID 11/06/16 oxybutynin chloride 5 mg tablet 5 - 10 mg PO DAILY pain 01/25/20 cholecalciferol (vitamin D3) 50 mcg (2,000 unit) capsule 2,000 unit PO DAILY deficiency 07/27/20 hydroxychloroquine 200 mg tablet 200 mg PO BIDCM arthritis 07/27/20 potassium chloride 10 mEq tablet,extended release 10 meq PO DAILY PRN when taking Lasix 07/27/20 prednisone 5 mg tablet 5 - 10 mg PO DAILY PRN Lupus flare 07/27/20 tiotropium bromide 2.5 mcg/actuation mist for inhalation 2.5 mcg IH DAILY benzonatate 100 mg capsule 100 mg PO TID PRN cough 05/29/23 plaqenil 200 mg PO BID arthritis 05/29/23 fluconazole 100 mg tablet 100 mg PO DAILY #5 tabs 06/02/23 amlodipine 2.5 mg tablet 10 mg (4 x 2.5 mg) PO DAILY hypertension #30 tabs 06/06/23 amoxicillin 875 mg-potassium clavulanate 125 mg tablet 1 tab PO BID #14 tabs 06/06/23 aspirin 81 mg chewable tablet 81 mg PO DAILYCM #0 tabs 06/06/23 food supplemt, lactose-reduced (Ensure Clear oral liquid) 120 ml PO 4X/DAY #0 mL 06/06/23 oseltamivir 75 mg capsule 75 mg PO BID #0 caps 06/06/23 prednisone 10 mg tablet 10 mg PO DAILY #30 tabs 06/06/23 Hospital Course Summary of Care Provided Minutes Spent on Discharge: 40 Hospital Course: Patient presents with shortness of breath. Patient was treated for COPD exacerbation, influenza A as well as pneumonia. Patient had pneumonia recently and was on area on Augmentin. CAT scan showed improvement of the infiltrates but symptoms seem more associated with COPD exacerbation. Also noted the patient had spiculated pulmonary mass. Unclear if this is related with a pneumonia or if it is possibly malignancy. This will need further follow-up with further imaging. Recommend the patient follow-up pulmonary in the next month. Medical Records Data Medical Nutrition Assessment Dietitian: Malnutrition Criteria Met Start: 06/04/23 09:48 Freq: Status: Active Protocol: Document 06/06/23 08:12 AG (Rec: 06/06/23 08:12 [id number]) Nutrition Malnutrition Evidence of Malnutrition Exists Yes Malnutrition (moderate): Acute Illness/Injury Evidenced By Suboptimal Energy Intake ( Moderate),Weight Loss ( Moderate) Clinical Problem Acute Disease or Injury Related Malnutrition Etiology moderate, acute malnutrition related to inadequate energy intake during acute illness Signs/Symptoms as evidenced by estimated energy intake meeting < 75% of estimated energy needs > 1 week, unintentional 3% wt loss x 1 week Status Active Problem Recommendation Dietitian Recommendations/Changes recommend advance diet as tolerated to regular; ensure w / medpass given evidence of acute malnutrition. Weight / BMI Weight Weight: 97.5 kg Body Mass Index (BMI) 36.8 ABG / Lab / Microbiology Data 06/06/23 03:10 06/06/23 03:10 Laboratory: Laboratory Results - last 24 hr 06/06/23 03:10: WBC 8.5, RBC 3.80 L, Hgb 11.9 L, Hct 36.9 L, MCV 97.1, MCH 31.3, MCHC 32.2, RDW Std Deviation 46.6 H, RDW Coeff of Nasir 13.1, Plt Count 467 H, MPV 9.0, Immature Gran % (Auto) 1.200 H, Neut % (Auto) 85.8 H, Lymph % (Auto) 8.5 L, Patrick % (Auto) 4.3, Eos % (Auto) 0.0, Baso % (Auto) 0.2, Absolute Neuts (auto) 7.3, Absolute Lymphs (auto) 0.72 L, Nucleated RBC % 0, Sodium 132 L, Potassium 4.1, Chloride 93 L, Carbon Dioxide 35.0 H, Anion Gap 4 L, BUN 26 H, Creatinine 0.95, Estim Creat Clear Calc 60.69, Est GFR (MDRD) Af Amer 74, Est GFR (MDRD) Non-Af 61, BUN/Creatinine Ratio 27.3 H, Glucose 251 H, Calcium 9.4 Microbiology: Microbiology 06/04/23 17:25 Sputum, Expectorated/Coughed Gram Stain - Final 06/04/23 17:25 Sputum, Expectorated/Coughed Respiratory Culture - Final Presumptive C albicans 06/04/23 00:05 Urine, Catheterized Urine Culture - Final Culture exhibits no growth. 06/03/23 23:40 Mucosa - Nose SARS-CoV-2, Influenza & RSV (PCR) - Final Influenzae A 06/04/23 10:10 Stool Stool Lactoferrin - Final 06/04/23 10:10 Stool Enteric Bacteriology - Final 06/04/23 00:05 Urine Catheter - Catheter Legionella Antigen - Final 06/04/23 00:05 Urine Catheter - Catheter Streptococcus pneumoniae Antigen (M - Final Meaningful Use Info Meaningful Use Diagnoses (Choose all that apply): None applicable Discharge Plan Admission Admit Date/Time: 06/04/23 01:43 Primary Reason for Your Visit: COPD exacerbation. Attending Provider: Saad Edwards Primary Care Provider: Haritha Alonso Consulting Providers: Darwin Tarango; Robbin Carvajal; Ari Bryson; Loi Navarro; Richie Caldera; Lara Soni; Alex Hurd; Coral Elise; Calderon Huffman; Dominic Joaquin; Juan Miguel Hickey; Mickey Fink; Sascha Day Discharge Orders/Prescriptions Prescriptions: New aspirin 81 mg Tablet,Chewable 81 mg PO DAILYCM Qty: 0 0RF Ensure Clear Liquid 120 ml PO 4X/DAY Qty: 0 0RF oseltamivir 75 mg Capsule 75 mg PO BID Qty: 0 0RF Rx Instructions: through 06/08/2023 prednisone 10 mg tablet 10 mg PO DAILY Qty: 30 0RF Rx Instructions: 4 tabs daily for 3 days, then 3 tabs daily for 3 days, then 2 tabs daily for 3 days, then 1 tab daily for 3 days Continued tramadol 50 MG tablet 50 mg PO DAILY PRN (Reason: Pain Score 1-10) hydrochlorothiazide 12.5 MG capsule 25 mg PO DAILY Bevespi Aerosphere 10.7 GM HFA aerosol inhaler 10.7 g IH BID oxybutynin chloride 5 MG tablet 5 - 10 mg PO DAILY tiotropium bromide 4 GM mist 2.5 mcg IH DAILY potassium chloride 10 MEQ tablet extended release 10 meq PO DAILY PRN (Reason: when taking Lasix) hydroxychloroquine 200 MG tablet 200 mg PO BIDCM cholecalciferol (vitamin D3) 2,000 UNIT capsule 2,000 unit PO DAILY amoxicillin-pot clavulanate 875-125 mg tablet 1 tab PO BID Qty: 14 0RF Rx Instructions: through 06/08/2023 benzonatate 100 mg capsule 100 mg PO TID PRN Patient Comments: TAKE 1 CAPSULE BY MOUTH 2 TO 3 TIMES DAILY NEEDED FOR COUGH plaqenil 200 mg PO BID fluconazole 100 mg tablet 100 mg PO DAILY Qty: 5 0RF Changed amlodipine 2.5 MG tablet 10 mg PO DAILY Qty: 30 0RF Held prednisone 5 MG tablet 5 - 10 mg PO DAILY PRN (Reason: Lupus flare) Hold Instructions: resume when you have completed the prednisone taper. Discontinued carbidopa-levodopa 1 TABLET tablet 1 tab PO TID Hold Instructions: Pt has been DC'd furosemide 20 MG tablet 20 mg PO DAILY PRN (Reason: Swelling) Referrals / Follow Up: [facility] [Provider Group] - Within 1 Month Haritha Alonso NP-C [Primary Care Provider] - Within 2 Weeks Disposition Disposition (needs filled in before D/C Order can be placed): [facility] Charges/Coding Visit Charges Inpatient E&M: 67618 Disch Hosp >30min
--- NOTE | 2023-06-06 12:16 | CASEMGMT ---
Patient was approved for TCU and physician will send her today. SW notified patient, RN, and receptionist secretary. Plan: d/c to [facility] TCU under skilled level of care. Bekah ALANIS
[2023-06-06 12:51] VITALS: BP 141/82; PULSE 77; RESP 22; TEMP 36.2; O2SAT 91
[2023-06-06 13:49] VITALS: PULSE 72; RESP 20; O2SAT 92
--- NOTE | 2023-06-06 13:58 | NURSING ---
Report called to [facility] on TCU. Requested patient be sent over at 3pm d/t just receiving 2 other admissions. Will update patient on time of transfer.
== END 2023-06-06 14:15 | disposition skilled nursing facility (03) | DRG 189 ==
LOC: ED 23:29 → ICU 06-04 02:00
PROVIDERS: Admitting Provider Internal Medicine; Emergency Provider Emergency Medicine; PCP Nurse Practitioner Family
DX: J96.21 Acute and chronic respiratory failure with hypoxia (principal); J10.08 Influenza due to other identified influenza virus with other specified pneumonia; J13 Pneumonia due to Streptococcus pneumoniae; G93.40 Encephalopathy, unspecified; E44.0 Moderate protein-calorie malnutrition; I24.89 Other forms of acute ischemic heart disease; J44.0 Chronic obstructive pulmonary disease with (acute) lower respiratory infection; E87.1 Hypo-osmolality and hyponatremia; J44.1 Chronic obstructive pulmonary disease with (acute) exacerbation; M32.9 Systemic lupus erythematosus, unspecified; J96.22 Acute and chronic respiratory failure with hypercapnia; I10 Essential (primary) hypertension; M19.90 Unspecified osteoarthritis, unspecified site; E66.9 Obesity, unspecified; R91.1 Solitary pulmonary nodule; G20.A1 Parkinson's disease without dyskinesia, without mention of fluctuations; R73.9 Hyperglycemia, unspecified; Z68.37 Body mass index [BMI] 37.0-37.9, adult; Z79.52 Long term (current) use of systemic steroids; Z79.891 Long term (current) use of opiate analgesic; Z99.81 Dependence on supplemental oxygen; Z87.891 Personal history of nicotine dependence
CPT/HCPCS: 36415; 36600; 51702; 71045; 71275; 80048; 80053; 81001; 82803; 83605; 83630; 84484; 85025; 85379; 85610; 85730; 87040; 87070; 87086; 87177; 87205; 87209; 87449; 87506; 87631; 93005; 93306; 93970; 94002; 94003; 94640; 94762; 97110; 97116; 97162; 97166; 97530; 99285; J7030; Q9967; A4216

== ENCOUNTER 2023-06-06 14:36 | Inpatient (IN) | payer MEDICARE, SELFPAY ==
[2023-06-06 14:52] VITALS: BP 141/82; PULSE 80; RESP 16; TEMP 35.6; O2SAT 94; BMI 33.5
[2023-06-06 16:08] VITALS: PULSE 71
[2023-06-06] MEDS: traMADol 50 MG Tablet PO (16:33)
[2023-06-06] MEDS: Ensure Clear 120 ML Liquid PO ×2 (16:36→21:37)
[2023-06-06] MEDS: Hydroxychloroquine 200 MG Tablet PO (16:38)
--- NOTE | 2023-06-06 20:47 | HP.PCM_ITS ---
HPI - General General Date of Admission: 06/06/23 Date of Service: 06/06/23 Chief Complaint: Here for rehabilitation. HPI Narrative 06/03/2023 ZEINAB HULL, is a 72 Female who presents to [facility] ED with fatigue. COPD baseline oxygen 3-4 liters. Recent hospitalization for bacteremia, hyponatremia, RLL pneumonia, UTI. Acute SOB, not eating or drinking. EMS placed NRB, confused. BiPAP started, aerosol, Solu-medrol given. Chest X-ray improved pneumonia. +influenza A. CTA chest negative PE, showed right pneumonia, left lung mass, concerning for cancer. 06/04/2023 Admit to [facility]. IV ATB's for pneumonia. Pulmonary for lung masses. Aerosols, Solu-medrol IV for COPD exacerbation. Tamiflu for influenza A. 06/04/2023 Breathing better, oxygen 3 liters. BiPAP, wean oxygen. Zosyn for RLL pneumonia. Tamiflu for influenza A. Elevated Troponin 2/2 acute respiratory failure. 06/05/2023 Feels better. Oxygen per NC. Sputum pending, Urinary Antigens pending, consider stopping ATB's. Tamiflu for influenza A. 06/06/2023 Breathing better. Stop ATB's. Sputum C. Albicans, urinary antigens negative for strep pneumo, legionella. 06/06/2023 Admit to TCU with debility, here for rehabilitation, strengthening, prior to discharge home with . [facility] Medical History (Updated 06/06/23 @ 20:[address] Sampson Myles MD) Arthritis Asthma COPD (chronic obstructive pulmonary disease) EXCISION STOMACH TUMOR Hypertension Lupus Mixed connective tissue disease Parkinson disease Polyarthropathy RIGHT ANKLE FRACTURE REPAIR Home Medications hydrochlorothiazide 12.5 mg capsule 25 mg PO DAILY Heart 03/02/14 [History Last Taken 06/06/23 08:45] tramadol 50 mg tablet 50 mg PO DAILY PRN Pain Score 1-10 03/02/14 [History Last Taken 06/06/23 06:30] glycopyrrolate 9 mcg-formoterol 4.8 mcg HFA aerosol inhaler (Bevespi [employer]) 10.7 g IH BID breathing 11/06/16 [History Last Taken 06/06/23 07:25] oxybutynin chloride 5 mg tablet 5 - 10 mg PO DAILY pain 01/25/20 [History Last Taken 06/06/23 08:45] cholecalciferol (vitamin D3) 50 mcg (2,000 unit) capsule 2,000 unit PO DAILY deficiency 07/27/20 [History Last Taken 06/06/23 08:45] hydroxychloroquine 200 mg tablet 200 mg PO BIDCM arthritis 07/27/20 [History Last Taken 06/06/23 08:45] potassium chloride 10 mEq tablet,extended release 10 meq PO DAILY PRN when taking Lasix 07/27/20 [History Last Taken Unknown] prednisone 5 mg tablet 5 - 10 mg PO DAILY PRN Lupus flare 07/27/20 [History Last Taken 06/03/23] tiotropium bromide 2.5 mcg/actuation mist for inhalation 2.5 mcg IH DAILY breathing 07/27/20 [History Last Taken 06/06/23 08:45] benzonatate 100 mg capsule 100 mg PO TID PRN cough 05/29/23 [History Last Taken 06/02/23] plaqenil 200 mg PO BID arthritis 05/29/23 [History Last Taken Unknown] fluconazole 100 mg tablet 100 mg PO DAILY yeast #5 tabs 06/02/23 [Rx Last Taken 06/06/23 08:45] amlodipine 2.5 mg tablet 10 mg (4 x 2.5 mg) PO DAILY hypertension #30 tabs 06/06/23 [Rx Last Taken 06/06/23 08:45] amoxicillin 875 mg-potassium clavulanate 125 mg tablet 1 tab PO BID UTI #14 tabs 06/06/23 [Rx Last Taken 06/02/23] aspirin 81 mg chewable tablet 81 mg PO DAILYCM Heart #0 tabs 06/06/23 [Rx Last Taken 06/06/23 08:45] food supplemt, lactose-reduced (Ensure Clear oral liquid) 120 ml PO 4X/DAY Health #0 mL 06/06/23 [Rx Last Taken 06/06/23 08:45] oseltamivir 75 mg capsule 75 mg PO BID Influenza #0 caps 06/06/23 [Rx Last Taken 06/06/23 08:45] prednisone 10 mg tablet 10 mg PO DAILY breathing #30 tabs 06/06/23 [Rx Last Taken Unknown] Allergy/AdvReac Type Severity Reaction Status Date / Time bromide salts [bromide] AdvReac Hives Verified 05/29/23 11:35 strawberry AdvReac Hives Verified 05/29/23 11:35 Family History Mother Arthritis Diabetes Hypertension Osteoporosis Father Arthritis Heart disease Sister Arthritis Breast cancer Diabetes Hypertension Son Diabetes Other Alzheimer disease Anemia Hyperlipidemia Thyroid disorder Surgical History History of lumpectomy History of lung biopsy History of tubal ligation Hx of cholecystectomy Social History (Updated 06/06/23 @ 20:[address] Sampson Myles MD) household members: spouse Smoking Status: Former smoker alcohol intake: never substance use type: does not use ROS Constitutional Constitutional: Denies chills, fever(s) or weight gain ENT HEENT: Denies headache(s), nasal congestion or nasal discharge Cardiovascular Cardiovascular: Denies chest pain or palpitations Respiratory/Chest Respiratory/Chest: Denies cough, excessive phlegm production or shortness of breath with exertion Gastrointestinal Gastrointestinal: Denies abdominal pain, nausea or vomiting Genitourinary Genitourinary: Denies dysuria Musculoskeletal Musculoskeletal: Denies joint pain or joint swelling Integumentary Integumentary: Denies rash or wounds Neurologic Neurologic: Denies focal weakness, numbness or tingling Psychiatric Psychiatric: Denies anxiety, auditory hallucinations, depression, homicidal ideation or suicidal ideation Vital Signs Vital Signs Vital Signs: 06/06/23 14:52 06/06/23 16:08 Temperature 96.1 F L Temperature Source Temporal Pulse Rate 80 71 Pulse Rhythm Irregular Pulse Strength Normal (2+) Respiratory Rate 16 Respiratory Effort Normal Non-Labored Respiratory Depth Normal Respiratory Pattern Normal Blood Pressure 141/82 H Blood Pressure Mean 101 Blood Pressure Source Monitor Blood Pressure Position Sitting Blood Pressure Location Right Arm Pulse Ox 94 Oxygen Delivery Method Nasal Cannula Nasal Cannula Oxygen Flow Rate (L/min) 3 3 Weight Weight: 88.768 kg Body Mass Index (BMI) 33.5 Physical Exam Const alert General Appearance: cooperative HEENT normocephalic Eyes PERRL and EOMs intact bilaterally Neck supple, no JVD and no carotid bruits Resp normal respiratory effort, normal air movement and clear to auscultation bilaterally Cardio regular rate and regular rhythm GI normal to inspection, nondistended, normoactive bowel sounds, non-tender and non-distended Extremity normal capillary refill General Extremity: Negative for edema Skin no rashes or lesions noted General Skin Exam: no breakdown Psych affect normal Appearance: appropriate Assessment & Plan Assessment/Plan (1) Debility: (2) Acute and chronic respiratory failure with hypercapnia: (3) COPD exacerbation: (4) Elevated troponin: (5) Influenza A: (6) Right lower lobe pneumonia: QUALIFIERS: Pneumonia type: due to unspecified organism Qualified Code(s): J18.9 - Pneumonia, unspecified organism (7) COPD (chronic obstructive pulmonary disease): (8) Lupus: (9) Parkinson disease: (10) Hypertension: (11) Overactive bladder: (12) Hypokalemia: (13) Pulmonary nodules/lesions, multiple: PLAN: Plan 72 year old female with below past medical history hospitalized for acute respiratory failure with hypoxia secondary to influenza A/COPD exacerbation/pneumonia, complicated by delirium, lung masses concerning for cancer, admitted to TCU with debility, here for rehabilitation, strengthening, prior to discharge home with . * Debility - PT/OT. * Pain - Tylenol 1000mg q6 prn pain (1-5), Tramadol 50mg daily prn pain (6-10). * Bowel - senna/colace 1 tablet bid, Magnesium citrate 300ml daily prn. * Adult immunization - Administer pneumonia vaccine, covid vaccine, flu vaccine as appropriate. * DVT prophylaxis - Lovenox 40mg sc daily. * Hypertension - HCTZ 25mg daily, Amlodipine 10mg daily. * Pneumonia - Augmentin 875mg bid thru 06/07/2023. * CV prophylaxis - Aspirin 81mg daily. * Cough - Tessalon perles 100mg tid prn. * Vitamin D deficiency - D3 50mcg daily. * Nutrition - Ensure Clear 120ml 4x/day. * C. Albicans sputum - Fluconazole 100mg daily thru 06/12/2023. * Lupus - Plaquenil 200mg bidcm. * Skin irritation - Calmoseptine topical bid. * Tinea Corporis - Nystatin powder topical bid. * Influenza A - Tamiflu 75mg bid thru 06/08/2023. * Overactive bladder - Oxybutynin 10mg daily. * Hypokalemia - KCL 10meq daily. * COPD - Anoro 1 puff daily, Prednisone 40mg daily taper. * Lung mass - Pulmonary recommended f/u CT chest in 4-6 weeks.
[2023-06-06] MEDS: Amox/Clavulanate 875 MG Tablet PO (21:37)
[2023-06-06] MEDS: Oseltamivir Phosphate 75 MG Capsule PO (21:37)
[2023-06-06] MEDS: Menthol/Lanolin/Calamine/Znox 113 GM Tube 1 APPLIC TOPICAL (21:41)
[2023-06-06] MEDS: Nystatin Powder 15gm Bottle 1 APPLIC TOPICAL (21:41)
[2023-06-07] MEDS: Enoxaparin 40 MG/0.4 ML Syringe SC (05:38)
[2023-06-07] MEDS: Ensure Clear 120 ML Liquid PO ×2 (05:39→12:03)
[2023-06-07 05:45] VITALS: PULSE 74; RESP 20
[2023-06-07 07:59] LABS: Absolute Lymphocyte Count 1.74 X10^3/uL (0.83-4.51); Absolute Neutrophil Count 7.4 X10^3/uL (2.0-7.7); Basophil# 0.02 X10^3/uL; Basophil% 0.2 % (0-1); Hematocrit 37.7 % (37-47); Hemoglobin 12.5 g/dL (12.0-15.0); Lymphocyte # 1.74 X10^3/ul (0.83-4.51); Lymphocyte % 17.5 % (19-41); Mean Corp Hgb Conc 33.2 g/dL (32-36); Mean Corpuscular Hgb 31.4 pg (27.0-32.0); Mean Corpuscular Volume 94.7 fL (81-99); Mean Platelet Vol. 8.7 fl (6.2-12.0); Monocyte# 0.73 X10^3/uL; Monocyte% 7.3 % (0-10); NRBC Flagged by Analyzer 0 % (0-5); Neutrophil # 7.35 X10^3/uL (2.7-7.7); Neutrophil % 73.7 % (47-70); POSITIVE MORPHOLOGY YES; Platelet Count 439 K/mm3 (150-450); RBC Distribution Width CV 12.9 % (11.6-14.6); RBC Distribution Width SD 45.2 fl (35.1-43.9); Red Blood Count 3.98 M/mm3 (4.2-5.4)
[2023-06-07 08:04] LABS: Differential Indicated SCAN CRITERIA MET
[2023-06-07 08:32] LABS: Differential Comment SCANNED
[2023-06-07 08:53] LABS: Anion Gap 3 (5-15); BUN 30 mg/dL (7-18); Calcium,Total 9.8 mg/dL (8.5-10.1); Chloride 94 mmol/L (98-107); Creatinine, Serum 0.81 mg/dL (0.55-1.02); EST Glomerular Filtration Rate 74 mL/min (>60); Est Glom Filt Rate - Afr Amer 89 mL/min (>60); Estimated Creatinine Clearance 67.72 ml/min; Glucose 188 mg/dL (74-106); Potassium 3.3 mmol/L (3.5-5.1); Sodium Level 132 mmol/L (136-145)
[2023-06-07] MEDS: Aspirin 81 MG TAB.CHEW PO (09:02)
[2023-06-07] MEDS: predniSONE 10 MG Tablet PO (09:02)
[2023-06-07] MEDS: Amox/Clavulanate 875 MG Tablet PO ×2 (09:03→21:58)
[2023-06-07] MEDS: Fluconazole 100 MG Tablet PO (09:03)
[2023-06-07] MEDS: hydroCHLOROthiazide 25 MG Tablet PO (09:03)
[2023-06-07] MEDS: amLODIPine 10 MG Tablet PO (09:03)
[2023-06-07] MEDS: Oxybutynin 5 MG Tablet 10 MG PO (09:03)
[2023-06-07] MEDS: Cholecalciferol (VIT D3) 25 MCG TABLET (1,000 UNITS) 50 MCG PO (09:04)
[2023-06-07] MEDS: Oseltamivir Phosphate 75 MG Capsule PO ×2 (09:04→21:58)
[2023-06-07] MEDS: traMADol 50 MG Tablet PO (09:04)
[2023-06-07] MEDS: Nystatin Powder 15gm Bottle 1 APPLIC TOPICAL ×2 (09:05→22:04)
[2023-06-07] MEDS: Hydroxychloroquine 200 MG Tablet PO ×2 (09:05→18:16)
[2023-06-07] MEDS: Umeclidinium Brm/Vilanterol 62.5-25 mcg Inh 10.6999999999999993 PUFF INHALATION (09:05)
[2023-06-07] MEDS: Menthol/Lanolin/Calamine/Znox 113 GM Tube 1 APPLIC TOPICAL ×2 (09:05→22:04)
[2023-06-07] MEDS: Tuberculin,Purif.prot.deriv. 50 TU/ML Vial 0.100000000000000006 ML ID (10:16)
[2023-06-07 13:31] VITALS: BP 166/79; PULSE 66; RESP 18; TEMP 36.3; O2SAT 90
--- NOTE | 2023-06-07 13:58 | NURSING ---
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 While on TCU she will watch tv, read, work on word puzzles visit w/family, friends and welcomes visits with the teletype mechanic and therapy dog. She has a smartphone she uses for texting, talking and games. Staff will remind her of weekly activities and respect her right to say no.
--- NOTE | 2023-06-07 16:10 | CHAPLAIN ---
Type of Pastoral Visit ___ Initial Visit ___ Follow-up Visit ___ On-call Visit ___ General Patient Visit ___ Spiritual Assessment ___ Family Conference ___ Bereavement ___ Rapid Response ___ Code Blue ___ Other (describe below) Pastoral Care Referral From ___ Patient ___ Family ___ Nurse ___ Physician ___ Jr. Java Developer ___ Label Coder ___ Other (describe below) Sacrament/Intervention ___ Active listening ___ Anointing ___ Gnosticist ___ Bereavement ___ Communion ___ Charity exploration ___ ___ Life review ___ Prayer ___ Reconciliation ___ Sacrament of Sick ___ Supportive presence ___ Wedding ___ Other (describe below) Pastoral Comments therapy was working with this patient at time of attempted visit
[2023-06-07 16:14] VITALS: O2SAT 92
--- NOTE | 2023-06-07 16:47 | CASEMGMT ---
Social Work Met with patient to complete initial assessment. Introduced self and role. Verified contacts. Pt confirmed code status as full code. SW requested pt have family provide copies of advanced directives. Educated to [facility] insurance with NRD 06/12 and continued stay is not guaranteed with each review. Pt's goal is to return home with at [facility]. SW will continue to follow for DC planning. ESTEBAN BaileyW
[2023-06-07] MEDS: Ensure Plus High Protein 120 ML LIQUID PO (18:16)
[2023-06-08] MEDS: Enoxaparin 40 MG/0.4 ML Syringe SC (05:57)
[2023-06-08] MEDS: Cholecalciferol (VIT D3) 25 MCG TABLET (1,000 UNITS) 50 MCG PO (07:44)
[2023-06-08] MEDS: Amox/Clavulanate 875 MG Tablet PO ×2 (07:45→21:05)
[2023-06-08] MEDS: Oxybutynin 5 MG Tablet 10 MG PO (07:45)
[2023-06-08] MEDS: predniSONE 10 MG Tablet PO (07:45)
[2023-06-08] MEDS: hydroCHLOROthiazide 25 MG Tablet PO (07:45)
[2023-06-08] MEDS: traMADol 50 MG Tablet PO (07:47)
[2023-06-08] MEDS: Hydroxychloroquine 200 MG Tablet PO ×2 (07:47→16:53)
[2023-06-08] MEDS: Aspirin 81 MG TAB.CHEW PO (07:47)
[2023-06-08] MEDS: amLODIPine 10 MG Tablet PO (07:49)
[2023-06-08] MEDS: Fluconazole 100 MG Tablet PO (07:49)
[2023-06-08] MEDS: Oseltamivir Phosphate 75 MG Capsule PO ×2 (07:49→21:05)
[2023-06-08] MEDS: Menthol/Lanolin/Calamine/Znox 113 GM Tube 1 APPLIC TOPICAL ×2 (07:50→21:09)
[2023-06-08] MEDS: Nystatin Powder 15gm Bottle 1 APPLIC TOPICAL ×2 (07:50→21:09)
[2023-06-08] MEDS: Umeclidinium Brm/Vilanterol 62.5-25 mcg Inh 10.6999999999999993 PUFF INHALATION (07:51)
[2023-06-08 07:56] VITALS: BP 147/67; PULSE 59
[2023-06-08] MEDS: Potassium Chloride Oral Tablet 20 MEQ 40 MEQ PO (11:53)
[2023-06-08 13:08] VITALS: O2SAT 91
[2023-06-08] MEDS: Ensure Clear 120 ML Liquid PO ×2 (13:09→16:54)
[2023-06-08 14:24] VITALS: BP 149/65; PULSE 64; RESP 16; TEMP 36.5; O2SAT 91
--- NOTE | 2023-06-08 15:18 | NS ---
MST score = 1
[2023-06-09] MEDS: Enoxaparin 40 MG/0.4 ML Syringe SC (05:18)
[2023-06-09 07:14] LABS: Anion Gap 4 (5-15); BUN 31 mg/dL (7-18); BUN/Creat Ratio 40.4 RATIO (10-20); Calcium,Total 9.3 mg/dL (8.5-10.1); Chloride 96 mmol/L (98-107); Creatinine, Serum 0.77 mg/dL (0.55-1.02); EST Glomerular Filtration Rate 78 mL/min (>60); Est Glom Filt Rate - Afr Amer 95 mL/min (>60); Estimated Creatinine Clearance 68.56 ml/min; Glucose 153 mg/dL (74-106); Sodium Level 134 mmol/L (136-145)
[2023-06-09] MEDS: Potassium Chloride Oral Tablet 20 MEQ PO (09:35)
[2023-06-09] MEDS: Ensure Clear 120 ML Liquid PO ×3 (09:35→17:45)
[2023-06-09] MEDS: Cholecalciferol (VIT D3) 25 MCG TABLET (1,000 UNITS) 50 MCG PO (09:36)
[2023-06-09] MEDS: predniSONE 10 MG Tablet PO (09:36)
[2023-06-09] MEDS: amLODIPine 10 MG Tablet PO (09:37)
[2023-06-09] MEDS: Fluconazole 100 MG Tablet PO (09:37)
[2023-06-09] MEDS: hydroCHLOROthiazide 25 MG Tablet PO (09:37)
[2023-06-09] MEDS: Aspirin 81 MG TAB.CHEW PO (09:37)
[2023-06-09] MEDS: Hydroxychloroquine 200 MG Tablet PO ×2 (09:38→17:45)
[2023-06-09] MEDS: Oxybutynin 5 MG Tablet 10 MG PO (09:38)
[2023-06-09] MEDS: Umeclidinium Brm/Vilanterol 62.5-25 mcg Inh 10.6999999999999993 PUFF INHALATION (09:39)
[2023-06-09] MEDS: Menthol/Lanolin/Calamine/Znox 113 GM Tube 1 APPLIC TOPICAL ×2 (09:39→21:14)
[2023-06-09] MEDS: Nystatin Powder 15gm Bottle 1 APPLIC TOPICAL ×2 (09:40→21:14)
[2023-06-09 09:46] VITALS: BP 157/67; PULSE 89
[2023-06-09 13:53] VITALS: BP 143/72; PULSE 70; RESP 16; TEMP 35.6; O2SAT 93
[2023-06-09] MEDS: traMADol 50 MG Tablet PO (17:45)
[2023-06-10] MEDS: Enoxaparin 40 MG/0.4 ML Syringe SC (05:20)
[2023-06-10 07:37] LABS: Anion Gap 3 (5-15); BUN 26 mg/dL (7-18); BUN/Creat Ratio 37.4 RATIO (10-20); Calcium,Total 9.5 mg/dL (8.5-10.1); Chloride 98 mmol/L (98-107); EST Glomerular Filtration Rate 88 mL/min (>60); Est Glom Filt Rate - Afr Amer 106 mL/min (>60); Estimated Creatinine Clearance 68.56 ml/min; Glucose 151 mg/dL (74-106); Potassium 4.1 mmol/L (3.5-5.1); Sodium Level 134 mmol/L (136-145)
[2023-06-10 07:47] VITALS: O2SAT 90
[2023-06-10] MEDS: Ensure Clear 120 ML Liquid PO ×3 (10:00→16:48)
[2023-06-10] MEDS: Cholecalciferol (VIT D3) 25 MCG TABLET (1,000 UNITS) 50 MCG PO (10:00)
[2023-06-10] MEDS: hydroCHLOROthiazide 25 MG Tablet PO (10:01)
[2023-06-10] MEDS: traMADol 50 MG Tablet PO (10:01)
[2023-06-10] MEDS: Hydroxychloroquine 200 MG Tablet PO ×2 (10:01→16:50)
[2023-06-10] MEDS: Senna/Docusate Sodium 1 Tablet PO (10:01)
[2023-06-10] MEDS: Aspirin 81 MG TAB.CHEW PO (10:02)
[2023-06-10] MEDS: amLODIPine 10 MG Tablet PO (10:02)
[2023-06-10] MEDS: Oxybutynin 5 MG Tablet 10 MG PO (10:02)
[2023-06-10] MEDS: Fluconazole 100 MG Tablet PO (10:02)
[2023-06-10] MEDS: Menthol/Lanolin/Calamine/Znox 113 GM Tube 1 APPLIC TOPICAL ×2 (10:03→20:46)
[2023-06-10] MEDS: predniSONE 10 MG Tablet PO (10:03)
[2023-06-10] MEDS: Nystatin Powder 15gm Bottle 1 APPLIC TOPICAL ×2 (10:04→20:46)
[2023-06-10] MEDS: Potassium Chloride Oral Tablet 20 MEQ PO (10:07)
[2023-06-10] MEDS: Umeclidinium Brm/Vilanterol 62.5-25 mcg Inh 10.6999999999999993 PUFF INHALATION (10:18)
[2023-06-10 10:35] VITALS: BP 146/67; PULSE 76; RESP 18; O2SAT 3
--- NOTE | 2023-06-10 10:45 | NURSING ---
Offered Covid vaccine, VIS provided. Patient refuses at this time.
[2023-06-10 11:52] VITALS: O2SAT 90
[2023-06-10 14:40] VITALS: BP 173/74; PULSE 69; RESP 18; TEMP 35.7; O2SAT 92
[2023-06-10 21:45] VITALS: PULSE 72; RESP 16; O2SAT 96
[2023-06-11 05:30] VITALS: PULSE 70; RESP 20; O2SAT 94
[2023-06-11] MEDS: Enoxaparin 40 MG/0.4 ML Syringe SC (05:31)
[2023-06-11] MEDS: Hydroxychloroquine 200 MG Tablet PO ×2 (09:00→18:11)
[2023-06-11] MEDS: Umeclidinium Brm/Vilanterol 62.5-25 mcg Inh 10.6999999999999993 PUFF INHALATION (09:00)
[2023-06-11] MEDS: Oxybutynin 5 MG Tablet 10 MG PO (09:06)
[2023-06-11] MEDS: predniSONE 10 MG Tablet PO (09:06)
[2023-06-11] MEDS: hydroCHLOROthiazide 25 MG Tablet PO (09:06)
[2023-06-11] MEDS: Fluconazole 100 MG Tablet PO (09:06)
[2023-06-11] MEDS: Potassium Chloride Oral Tablet 20 MEQ PO (09:06)
[2023-06-11] MEDS: Aspirin 81 MG TAB.CHEW PO (09:06)
[2023-06-11] MEDS: Cholecalciferol (VIT D3) 25 MCG TABLET (1,000 UNITS) 50 MCG PO (09:07)
[2023-06-11] MEDS: amLODIPine 10 MG Tablet PO (09:07)
[2023-06-11 12:13] VITALS: BMI 34.9
[2023-06-11] MEDS: Nystatin Powder 15gm Bottle 1 APPLIC TOPICAL ×2 (13:02→21:31)
[2023-06-11] MEDS: Menthol/Lanolin/Calamine/Znox 113 GM Tube 1 APPLIC TOPICAL ×2 (13:02→21:31)
[2023-06-11] MEDS: traMADol 50 MG Tablet PO (13:49)
--- NOTE | 2023-06-11 15:02 | PCM.PN.DRR ---
TCU RX Drug Regimen Review Subjective/Objective Subjective/Objective: Subjective: 72 YOF admitted to TCU s/p hospitalization at [facility] for (+) flu, pneumonia, COPD exacerbation. Hospitalization complicated by possible lung mass concerning for cancer, which will be followed on an outpatient basis. Admitted to TCU on for strengthening and rehabilitation prior to discharge home where she resides with her . Objective: Allergies bromide salts [bromide] Adverse Reaction (Verified 05/29/23 11:35) Hives strawberry Adverse Reaction (Verified 05/29/23 11:35) Hives frozen strawberries Current Medications Generic Name Dose Route Start Last Admin Trade Name Freq PRN Reason Stop Dose Admin Acetaminophen 1,000 mg 06/06/23 21:07 Acetaminophen 500 Mg Tablet PO Q6H PRN PRN Pain Score 1-5 Amlodipine Besylate 10 mg 06/07/23 10:00 06/11/23 09:07 Amlodipine 10 Mg Tablet PO 10 mg DAILY KERRI Administration Protocol Aspirin 81 mg 06/07/23 08:00 06/11/23 09:06 Aspirin 81 Mg Tab.Chew PO 81 mg DAILYCM KERRI Administration Benzonatate 100 mg 06/06/23 15:15 Benzonatate 100 Mg Capsule PO TID PRN COUGH Calamine/Phenol 1 applic 06/06/23 22:00 06/11/23 13:02 Menthol/Lanolin/Calamine/Znox 113 Gm Tube TOPICAL 1 applic BID KERRI Administration Protocol Cholecalciferol 50 mcg 06/07/23 10:00 06/11/23 09:07 Cholecalciferol (Vit D3) 25 Mcg Tablet (1,000 Units) PO 50 mcg DAILY KERRI Administration Enoxaparin Sodium 40 mg 06/07/23 06:00 06/11/23 05:31 Enoxaparin 40 Mg/0.4 Ml Syringe SC 40 mg DAILY@0600 KERRI Administration Fluconazole 100 mg 06/07/23 10:00 06/11/23 09:06 Fluconazole 100 Mg Tablet PO 06/12/23 10:01 100 mg DAILY KERRI Administration Hydrochlorothiazide 25 mg 06/07/23 10:00 06/11/23 09:06 Hydrochlorothiazide 25 Mg Tablet PO 25 mg DAILY KERRI Administration Protocol Hydroxychloroquine Sulfate 200 mg 06/06/23 17:00 06/11/23 09:00 Hydroxychloroquine 200 Mg Tablet PO 200 mg BIDCM KERRI Administration Sodium Chloride 250 mls @ 15 mls/hr 06/06/23 15:07 IV .[id number] PRN Saline Flush Magnesium Citrate 300 ml 06/06/23 21:07 Magnesium Citrate 300 Ml PO DAILY PRN CONSTIPATION Nutritional Formula (Lactose Free) 120 ml 06/08/23 12:45 06/11/23 14:58 Ensure Clear 120 Ml Liquid PO Not Given TIDCM KERRI Nystatin 1 applic 06/06/23 22:00 06/11/23 13:02 Nystatin Powder 15gm Bottle TOPICAL 1 applic BID KERRI Administration Protocol Oxybutynin Chloride 10 mg 06/07/23 10:00 06/11/23 09:06 Oxybutynin 5 Mg Tablet PO 10 mg DAILY KERRI Administration Potassium Chloride 20 meq 06/09/23 08:00 06/11/23 09:06 Potassium Chloride Oral Tablet 20 Meq PO 20 meq DAILYCM KERRI Administration Prednisone 30 mg 06/07/23 08:00 06/11/23 09:06 Prednisone 10 Mg Tablet PO 06/19/23 07:59 30 mg DAILYCM KERRI Administration Taper Senna/Docusate Sodium 1 tablet 06/06/23 22:00 06/11/23 09:07 Senna/Docusate Sodium 1 Tablet PO Not Given BID KERRI Sodium Chloride 10 - 40 ml 06/06/23 15:07 0.9% Saline Lock 10 Ml Syringe IV UD PRN SALINE FLUSH Tramadol HCl 50 mg 06/06/23 21:00 06/11/23 13:49 Tramadol 50 Mg Tablet PO 50 mg DAILY PRN PRN Administration Pain Score 6-10 Tuberculin PPD 0.1 ml 06/14/23 10:00 Tuberculin,Purif.Prot.Deriv. 50 Tu/Ml Vial ID 06/14/23 10:01 X1 ONE Umeclidinium/Vilanterol 10.7 puff 06/07/23 10:00 06/11/23 09:00 Umeclidinium Brm/Vilanterol 62.5-25 Mcg Inh INHALATION 10.7 puff DAILY KERRI Administration Problem List (Updated 06/10/23 @ 00:01 by Background Daemon) Hypokalemia (Acute) Overactive bladder (Acute) Hypertension (Chronic) Debility (Acute) Vital Signs Temp Pulse Resp BP Pulse Ox O2 Del Method O2 Flow Rate 96.2 F L 70 20 H 173/74 H 94 Nasal Cannula 3 06/10/23 14:40 06/11/23 05:30 06/11/23 05:30 06/10/23 14:40 06/11/23 05:30 06/11/23 09:12 06/11/23 10:14 Oxygen Flow Rate (L/min) 3 Oxygen Delivery Method Nasal Cannula Weight: 92.896 kg Body Mass Index (BMI) 34.9 Sodium 134 mmol/L (136-145) L 06/10/23 07:14 Potassium 4.1 mmol/L (3.5-5.1) 06/10/23 07:14 Chloride 98 mmol/L (98-107) 06/10/23 07:14 Carbon Dioxide 33.0 mmol/L (21.0-32.0) H 06/10/23 07:14 Anion Gap 3 (5-15) L 06/10/23 07:14 BUN 26 mg/dL (7-18) H 06/10/23 07:14 Creatinine 0.70 mg/dL (0.55-1.02) 06/10/23 07:14 Est GFR (MDRD) Af Amer 106 mL/min (>60) 06/10/23 07:14 Est GFR (MDRD) Non-Af 88 mL/min (>60) 06/10/23 07:14 BUN/Creatinine Ratio 37.4 RATIO (10-20) H 06/10/23 07:14 Glucose 151 mg/dL (74-106) H 06/10/23 07:14 Assessment/Plan: 1. Pain: Tylenol 1000mg PO Q6h PRN Pain 1-5, Tramadol 50mg PO Daily PRN Pain 6-10. Please continue to monitor for increased/decreased S/S pain, PRN medication usage, oversedation/constipation with tramadol use. - Since admission, the patient has used 5 doses of Tramadol (1 dose/day) with pain rated 5-8/10, post-med pain rated 0-2. The patient has not used any PRN medication doses of Tylenol since admission. Patient's pain appears managed at this time. IF the patient is continuously using 1 dose/day, can consider scheduling administration. 2. COPD w/ recent exacerbation/ cough: Prednisone Taper thru 06/19/23, Anoro Ellipta 1 puff INH daily, Tessalon Perles 100mg PO TID PRN. Please continue to monitor for fluid retention, insomnia, agitation, PRN medication usage, HR (range 59-80). Please encourage patient to rinse mouth out after inhaler use to prevent thrush. 3. C. albicans pneumonia/ (+) SCx: Fluconazole 100mg PO Daily thru 06/12/23, pt already completed a course of Augmentin on 06/06. Please continue to monitor for resolution of infection, culture data as applicable, diarrhea. 4. HTN/ CV prophylaxis: Norvasc 10mg PO Daily, Aspirin 81mg PO Daily, HCTZ 25mg PO Daily. Please continue to monitor for S/S bleeding/bruising, BP (last 144/67), swelling, renal function, electrolytes. 5. Lupus: Plaquenil 200mg PO BID. Please continue to monitor for myopathy, liver function (LFT completed on 06/03/23, unremarkable), skin reactions. 6. OAB: Ditropan 10mg PO Daily. Please continue to monitor for urinary retention, s/s urinary tract infection, BP. 7. Hypokalemia: KCl 20mEq PO Daily. Please continue to monitor potassium levels (last 4.1 on 06/09), stomach upset, nausea. 8. General Wellness: Vitamin D 50mcg PO Daily. 9. DVT Prophylaxis: Lovenox 40mg SC Daily. Please continue to monitor for S/S bleeding/bruising, H/H (Hgb 12.5, Hct 37.7% on 06/06), CrCl (last 68 mL/min on 06/09). 10. Skin Integrity: Calmoseptine topically BID, Nystatin powder topically BID. Please continue to monitor for s/s skin infection, irritation, redness, ulcer formation. 11. Bowel: Senna/Docusate 1 tab PO BID, magnesium Citrate 300mL PO Daily PRN. Please continue to monitor for increased/decreased constipation and/or diarrhea. - The patient's last BM was on 06/08/23. Assessment/Plan for indications treated with psychotropic medications: - The patient is not currently on any psychotropic medications at time of medication review. Medical chart and medication regimen reviewed. The following medication irregularities or issues were identified: - No irregularities were identified at time of medication review. Date Date of Note:: 06/11/23
[2023-06-11 15:41] VITALS: BP 144/67; PULSE 66; RESP 18; TEMP 36.2; O2SAT 93
--- NOTE | 2023-06-11 15:50 | CHAPLAIN ---
Type of Pastoral Visit _x__ Initial Visit ___ Follow-up Visit ___ On-call Visit ___ General Patient Visit ___ Spiritual Assessment ___ Family Conference ___ Bereavement ___ Rapid Response ___ Code Blue ___ Other (describe below) Pastoral Care Referral From _x__ Patient ___ Family ___ Nurse ___ Physician ___ Dental Equipment Repairer ___ Manager Customs ___ Other (describe below) Sacrament/Intervention _x__ Active listening ___ Anointing ___ Evangelical ___ Bereavement ___ Communion ___ Charity exploration ___ _x__ Life review _x__ Prayer ___ Reconciliation ___ Sacrament of Sick ___ Supportive presence ___ Wedding ___ Other (describe below) Pastoral Comments patient had been seen in a previous visit; update and current situation is reported by the patient; pt states that she is handling things much better and feels much better; pt missed out on a family gathering but saw it by facetime; pt is welcoming of visit and a prayer; pt does not have other worries or concerns at this time
[2023-06-11] MEDS: Ensure Clear 120 ML Liquid PO (18:11)
[2023-06-11] MEDS: Benzonatate 100 MG Capsule PO (21:32)
[2023-06-12] MEDS: Enoxaparin 40 MG/0.4 ML Syringe SC (05:08)
[2023-06-12 07:04] VITALS: O2SAT 94
[2023-06-12] MEDS: Aspirin 81 MG TAB.CHEW PO (09:34)
[2023-06-12] MEDS: Potassium Chloride Oral Tablet 20 MEQ PO (09:34)
[2023-06-12] MEDS: Umeclidinium Brm/Vilanterol 62.5-25 mcg Inh 10.6999999999999993 PUFF INHALATION (09:35)
[2023-06-12] MEDS: Ensure Clear 120 ML Liquid PO ×2 (09:36→11:41)
[2023-06-12] MEDS: Cholecalciferol (VIT D3) 25 MCG TABLET (1,000 UNITS) 50 MCG PO (09:37)
[2023-06-12] MEDS: Fluconazole 100 MG Tablet PO (09:38)
[2023-06-12] MEDS: hydroCHLOROthiazide 25 MG Tablet PO (09:38)
[2023-06-12] MEDS: Oxybutynin 5 MG Tablet 10 MG PO (09:38)
[2023-06-12] MEDS: Hydroxychloroquine 200 MG Tablet PO ×2 (09:39→17:14)
[2023-06-12] MEDS: predniSONE 10 MG Tablet PO (09:39)
[2023-06-12] MEDS: Menthol/Lanolin/Calamine/Znox 113 GM Tube 1 APPLIC TOPICAL ×2 (09:42→20:40)
[2023-06-12] MEDS: amLODIPine 10 MG Tablet PO (09:43)
[2023-06-12] MEDS: Nystatin Powder 15gm Bottle 1 APPLIC TOPICAL ×2 (09:44→20:40)
[2023-06-12 09:46] VITALS: BP 154/56; PULSE 67
[2023-06-12] MEDS: traMADol 50 MG Tablet PO (10:31)
--- NOTE | 2023-06-12 13:35 | CASEMGMT ---
Social Work IDT met with patient, and dtr for care plan meeting. Discussed patient's progress in PT/OT/SN. Educated to [facility] insurance with NRD 06/12 and continued stay is not guaranteed with each review. Pt needs to be Seven to DC home. SW to coordinate DC needs. Will continue to follow. Lyndsay Dorantes, DIRECTOR LIFE SCIENCES PRODUCT DEVELOPMENT CARPENTER
[2023-06-12 15:28] VITALS: BP 136/84; PULSE 84; RESP 16; TEMP 36.2; O2SAT 94
[2023-06-12 16:26] VITALS: O2SAT 94
[2023-06-12 20:42] VITALS: PULSE 72; RESP 18; O2SAT 94
[2023-06-13] MEDS: Enoxaparin 40 MG/0.4 ML Syringe SC (04:19)
[2023-06-13 04:24] VITALS: PULSE 76; RESP 20; O2SAT 95
[2023-06-13 08:35] VITALS: BP 157/47; PULSE 68; RESP 16; O2SAT 98
[2023-06-13] MEDS: Senna/Docusate Sodium 1 Tablet PO (08:36)
[2023-06-13] MEDS: predniSONE 10 MG Tablet PO (08:36)
[2023-06-13] MEDS: Potassium Chloride Oral Tablet 20 MEQ PO (08:36)
[2023-06-13] MEDS: Oxybutynin 5 MG Tablet 10 MG PO (08:36)
[2023-06-13] MEDS: amLODIPine 10 MG Tablet PO (08:37)
[2023-06-13] MEDS: Aspirin 81 MG TAB.CHEW PO (08:37)
[2023-06-13] MEDS: Hydroxychloroquine 200 MG Tablet PO ×2 (08:37→16:58)
[2023-06-13] MEDS: hydroCHLOROthiazide 25 MG Tablet PO (08:37)
[2023-06-13] MEDS: Cholecalciferol (VIT D3) 25 MCG TABLET (1,000 UNITS) 50 MCG PO (08:37)
[2023-06-13] MEDS: Umeclidinium Brm/Vilanterol 62.5-25 mcg Inh 10.6999999999999993 PUFF INHALATION (08:38)
[2023-06-13] MEDS: Nystatin Powder 15gm Bottle 1 APPLIC TOPICAL ×2 (08:38→21:32)
[2023-06-13] MEDS: Menthol/Lanolin/Calamine/Znox 113 GM Tube 1 APPLIC TOPICAL ×2 (08:40→21:31)
[2023-06-13 09:56] VITALS: TEMP 36.2
--- NOTE | 2023-06-13 12:22 | CASEMGMT ---
Social Work BIMS () and PHQ-2 () completed for MDS assessment. Lyndsay Dorantes MSW CODING FILE CLERK
[2023-06-13] MEDS: traMADol 50 MG Tablet PO (13:10)
[2023-06-13 18:08] VITALS: O2SAT 93
[2023-06-13 19:20] VITALS: O2SAT 94
[2023-06-14] MEDS: Enoxaparin 40 MG/0.4 ML Syringe SC (05:27)
[2023-06-14 06:08] LABS: Absolute Lymphocyte Count 3.43 X10^3/uL (0.83-4.51); Absolute Neutrophil Count 10.3 X10^3/uL (2.0-7.7); Basophil# 0.05 X10^3/uL; Basophil% 0.3 % (0-1); Eosinophil# 0.13 X10^3/uL; Eosinophils% 0.8 % (0-5); Hematocrit 38.7 % (37-47); Hemoglobin 12.7 g/dL (12.0-15.0); Lymphocyte # 3.43 X10^3/ul (0.83-4.51); Lymphocyte % 22.4 % (19-41); Mean Corp Hgb Conc 32.8 g/dL (32-36); Mean Corpuscular Hgb 31.1 pg (27.0-32.0); Mean Corpuscular Volume 94.9 fL (81-99); Mean Platelet Vol. 9.7 fl (6.2-12.0); Monocyte# 1.32 X10^3/uL; Monocyte% 8.6 % (0-10); NRBC Flagged by Analyzer 0 % (0-5); Neutrophil # 10.28 X10^3/uL (2.7-7.7); Neutrophil % 67.2 % (47-70); Platelet Count 420 K/mm3 (150-450); RBC Distribution Width CV 13.5 % (11.6-14.6); Red Blood Count 4.08 M/mm3 (4.2-5.4); White Blood Count 15.3 K/mm3 (4.4-11.0)
[2023-06-14 06:52] LABS: Anion Gap 5 (5-15); BUN 30 mg/dL (7-18); Calcium,Total 9.4 mg/dL (8.5-10.1); Chloride 97 mmol/L (98-107); Creatinine, Serum 0.86 mg/dL (0.55-1.02); EST Glomerular Filtration Rate 69 mL/min (>60); Est Glom Filt Rate - Afr Amer 84 mL/min (>60); Estimated Creatinine Clearance 65.32 ml/min; Glucose 136 mg/dL (74-106); Potassium 4.4 mmol/L (3.5-5.1); Sodium Level 132 mmol/L (136-145)
[2023-06-14 08:00] VITALS: O2SAT 90
[2023-06-14] MEDS: Umeclidinium Brm/Vilanterol 62.5-25 mcg Inh 10.6999999999999993 PUFF INHALATION (08:05)
[2023-06-14] MEDS: Potassium Chloride Oral Tablet 20 MEQ PO (08:07)
[2023-06-14] MEDS: Aspirin 81 MG TAB.CHEW PO (08:07)
[2023-06-14] MEDS: hydroCHLOROthiazide 25 MG Tablet PO (08:08)
[2023-06-14] MEDS: predniSONE 10 MG Tablet PO (08:08)
[2023-06-14] MEDS: Oxybutynin 5 MG Tablet 10 MG PO (08:08)
[2023-06-14] MEDS: Hydroxychloroquine 200 MG Tablet PO ×2 (08:08→17:18)
[2023-06-14] MEDS: amLODIPine 10 MG Tablet PO (08:09)
[2023-06-14] MEDS: Cholecalciferol (VIT D3) 25 MCG TABLET (1,000 UNITS) 50 MCG PO (08:09)
[2023-06-14] MEDS: Menthol/Lanolin/Calamine/Znox 113 GM Tube 1 APPLIC TOPICAL ×2 (08:10→21:37)
[2023-06-14] MEDS: Nystatin Powder 15gm Bottle 1 APPLIC TOPICAL ×2 (08:10→21:37)
[2023-06-14] MEDS: Benzonatate 100 MG Capsule PO (08:15)
[2023-06-14 08:17] VITALS: BP 111/60; PULSE 65
--- NOTE | 2023-06-14 08:33 | NURSING ---
[employer] Net Developer Note; MDS for 06/13/2023 Complete
[2023-06-14] MEDS: Tuberculin,Purif.prot.deriv. 50 TU/ML Vial 0.100000000000000006 ML ID (10:43)
--- NOTE | 2023-06-14 13:36 | CASEMGMT ---
Social Work Received notification from [facility] that pt was referred on 06/04 from acute and they are following up. SW spoke with pt and pt agreeable to services, but wants dtr notified. SW updated Palliative to contact dtr. Lyndsay Dorantes, SANITARY PLUMBER REFLESHER
[2023-06-14] MEDS: Arthritis Pain Compound 60 CLICK TUBE TOPICAL ×2 (14:03→21:35)
[2023-06-14 15:15] VITALS: BP 153/67; PULSE 78; RESP 19; TEMP 35.5; O2SAT 91
[2023-06-15] MEDS: Enoxaparin 40 MG/0.4 ML Syringe SC (05:47)
[2023-06-15 06:45] LABS: Absolute Lymphocyte Count 2.95 X10^3/uL (0.83-4.51); Absolute Neutrophil Count 13.8 X10^3/uL (2.0-7.7); Basophil# 0.04 X10^3/uL; Basophil% 0.2 % (0-1); Eosinophils% 0.5 % (0-5); Hematocrit 40.8 % (37-47); Hemoglobin 13.4 g/dL (12.0-15.0); Lymphocyte # 2.95 X10^3/ul (0.83-4.51); Lymphocyte % 16.1 % (19-41); Mean Corp Hgb Conc 32.8 g/dL (32-36); Mean Corpuscular Hgb 31.4 pg (27.0-32.0); Mean Corpuscular Volume 95.6 fL (81-99); Monocyte# 1.37 X10^3/uL; Monocyte% 7.5 % (0-10); NRBC Flagged by Analyzer 0 % (0-5); Neutrophil # 13.78 X10^3/uL (2.7-7.7); Neutrophil % 75.1 % (47-70); Platelet Count 327 K/mm3 (150-450); RBC Distribution Width CV 14.1 % (11.6-14.6); RBC Distribution Width SD 48.8 fl (35.1-43.9); Red Blood Count 4.27 M/mm3 (4.2-5.4); White Blood Count 18.4 K/mm3 (4.4-11.0)
[2023-06-15] MEDS: Aspirin 81 MG TAB.CHEW PO (08:22)
[2023-06-15] MEDS: Arthritis Pain Compound 60 CLICK TUBE TOPICAL ×2 (08:23→20:47)
[2023-06-15] MEDS: Potassium Chloride Oral Tablet 20 MEQ PO (08:23)
[2023-06-15] MEDS: predniSONE 10 MG Tablet PO (08:23)
[2023-06-15] MEDS: Umeclidinium Brm/Vilanterol 62.5-25 mcg Inh 10.6999999999999993 PUFF INHALATION (08:23)
[2023-06-15] MEDS: Hydroxychloroquine 200 MG Tablet PO ×2 (08:23→17:44)
[2023-06-15] MEDS: Oxybutynin 5 MG Tablet 10 MG PO (08:24)
[2023-06-15] MEDS: hydroCHLOROthiazide 25 MG Tablet PO (08:24)
[2023-06-15] MEDS: amLODIPine 10 MG Tablet PO (08:25)
[2023-06-15] MEDS: Cholecalciferol (VIT D3) 25 MCG TABLET (1,000 UNITS) 50 MCG PO (08:25)
[2023-06-15] MEDS: Menthol/Lanolin/Calamine/Znox 113 GM Tube 1 APPLIC TOPICAL ×2 (08:33→20:50)
[2023-06-15] MEDS: Nystatin Powder 15gm Bottle 1 APPLIC TOPICAL ×2 (08:33→20:51)
[2023-06-15 08:41] VITALS: O2SAT 94
[2023-06-15 14:28] VITALS: BP 145/61; PULSE 72; RESP 24; TEMP 36.6; O2SAT 92
[2023-06-16] MEDS: Enoxaparin 40 MG/0.4 ML Syringe SC (05:25)
[2023-06-16 07:18] LABS: Anion Gap 6 (5-15); BUN 31 mg/dL (7-18); BUN/Creat Ratio 31.6 RATIO (10-20); Calcium,Total 9.8 mg/dL (8.5-10.1); Chloride 98 mmol/L (98-107); Creatinine, Serum 0.98 mg/dL (0.55-1.02); EST Glomerular Filtration Rate 59 mL/min (>60); Est Glom Filt Rate - Afr Amer 72 mL/min (>60); Estimated Creatinine Clearance 57.32 ml/min; Glucose 159 mg/dL (74-106); Potassium 4.2 mmol/L (3.5-5.1); Sodium Level 134 mmol/L (136-145)
[2023-06-16 07:47] VITALS: O2SAT 92
[2023-06-16 08:16] VITALS: BP 147/69; PULSE 69; RESP 18; TEMP 36; O2SAT 97
[2023-06-16] MEDS: Aspirin 81 MG TAB.CHEW PO (08:20)
[2023-06-16] MEDS: Potassium Chloride Oral Tablet 20 MEQ PO (08:20)
[2023-06-16] MEDS: hydroCHLOROthiazide 25 MG Tablet PO (08:20)
[2023-06-16] MEDS: Hydroxychloroquine 200 MG Tablet PO ×2 (08:21→17:19)
[2023-06-16] MEDS: Umeclidinium Brm/Vilanterol 62.5-25 mcg Inh 10.6999999999999993 PUFF INHALATION (08:21)
[2023-06-16] MEDS: predniSONE 10 MG Tablet PO (08:21)
[2023-06-16] MEDS: Arthritis Pain Compound 60 CLICK TUBE TOPICAL ×2 (08:21→20:24)
[2023-06-16] MEDS: Oxybutynin 5 MG Tablet 10 MG PO (08:22)
[2023-06-16] MEDS: amLODIPine 10 MG Tablet PO (08:23)
[2023-06-16] MEDS: Nystatin Powder 15gm Bottle 1 APPLIC TOPICAL ×2 (08:23→20:27)
[2023-06-16] MEDS: Cholecalciferol (VIT D3) 25 MCG TABLET (1,000 UNITS) 50 MCG PO (08:24)
--- NOTE | 2023-06-16 13:57 | NURSING ---
Pt refusing Senna. Dr. Myles updated N.O. to change to PRN for constipation. Order read back.
[2023-06-17] MEDS: Enoxaparin 40 MG/0.4 ML Syringe SC (05:32)
[2023-06-17 08:06] VITALS: O2SAT 94
[2023-06-17] MEDS: Umeclidinium Brm/Vilanterol 62.5-25 mcg Inh 10.6999999999999993 PUFF INHALATION (08:26)
[2023-06-17] MEDS: Arthritis Pain Compound 60 CLICK TUBE TOPICAL ×2 (08:26→21:56)
[2023-06-17] MEDS: Hydroxychloroquine 200 MG Tablet PO ×2 (08:27→16:43)
[2023-06-17] MEDS: Oxybutynin 5 MG Tablet 10 MG PO (08:27)
[2023-06-17] MEDS: Aspirin 81 MG TAB.CHEW PO (08:27)
[2023-06-17] MEDS: Cholecalciferol (VIT D3) 25 MCG TABLET (1,000 UNITS) 50 MCG PO (08:28)
[2023-06-17] MEDS: Potassium Chloride Oral Tablet 20 MEQ PO (08:28)
[2023-06-17] MEDS: hydroCHLOROthiazide 25 MG Tablet PO (08:28)
[2023-06-17] MEDS: amLODIPine 10 MG Tablet PO (08:28)
[2023-06-17] MEDS: predniSONE 10 MG Tablet PO (08:28)
[2023-06-17] MEDS: Nystatin Powder 15gm Bottle 1 APPLIC TOPICAL (08:30)
[2023-06-17 08:35] VITALS: BP 100/67; PULSE 75
[2023-06-17 10:20] VITALS: PULSE 88; RESP 18; O2SAT 97
[2023-06-17 10:21] VITALS: O2SAT 98
[2023-06-17 13:27] VITALS: BP 148/71; PULSE 84; RESP 18; TEMP 36.3; O2SAT 95
--- NOTE | 2023-06-17 16:48 | DS.PCM_ITS ---
Providers Date of Admission: 06/06/23 Primary Care Physician: Haritha Alonso REMOTELY PILOTED VEHICLE CONTROLLER-C Reason For Visit: COPD/EXAC Diagnosis Discharge Diagnosis (1) Debility: Status: Acute Code(s): R53.81 - Other malaise (2) Acute and chronic respiratory failure with hypercapnia: Status: Resolved Code(s): J96.22 - Acute and chronic respiratory failure with hypercapnia (3) COPD exacerbation: Status: Resolved Code(s): J44.1 - Chronic obstructive pulmonary disease with (acute) exacerbation (4) Elevated troponin: Status: Resolved Code(s): R79.89 - Other specified abnormal findings of blood chemistry (5) Influenza A: Status: Resolved Code(s): J10.1 - Influenza due to other identified influenza virus with other respiratory manifestations (6) Right lower lobe pneumonia: Status: Resolved Code(s): J18.9 - Pneumonia, unspecified organism Qualifiers: Pneumonia type: due to unspecified organism Qualified Code(s): J18.9 - Pneumonia, unspecified organism (7) COPD (chronic obstructive pulmonary disease): Status: Inactive Code(s): J44.9 - Chronic obstructive pulmonary disease, unspecified (8) Lupus: Status: Inactive Code(s): L93.0 - Discoid lupus erythematosus (9) Parkinson disease: Status: Inactive Code(s): G20 - Parkinson's disease (10) Hypertension: Status: Chronic Code(s): I10 - Essential (primary) hypertension (11) Overactive bladder: Status: Acute Code(s): N32.81 - Overactive bladder (12) Hypokalemia: Status: Acute Code(s): E87.6 - Hypokalemia (13) Pulmonary nodules/lesions, multiple: Status: Inactive Plan 72 year old female with below past medical history hospitalized for acute respiratory failure with hypoxia secondary to influenza A/COPD exacerbation/pneumonia, complicated by delirium, lung masses concerning for cancer, admitted to TCU with debility, here for rehabilitation, strengthening, prior to discharge home with . * Debility - PT/OT. * Pain - Tylenol 1000mg q6 prn pain (1-5), Tramadol 50mg daily prn pain (6-10). * Bowel - senna/colace 1 tablet bid, Magnesium citrate 300ml daily prn. * Adult immunization - Administer pneumonia vaccine, covid vaccine, flu vaccine as appropriate. * DVT prophylaxis - Lovenox 40mg sc daily. * Hypertension - HCTZ 25mg daily, Amlodipine 10mg daily. * Pneumonia - Augmentin 875mg bid thru 06/07/2023. * CV prophylaxis - Aspirin 81mg daily. * Cough - Tessalon perles 100mg tid prn. * Vitamin D deficiency - D3 50mcg daily. * Nutrition - Ensure Clear 120ml 4x/day. * C. Albicans sputum - Fluconazole 100mg daily thru 06/12/2023. * Lupus - Plaquenil 200mg bidcm. * Skin irritation - Calmoseptine topical bid. * Tinea Corporis - Nystatin powder topical bid. * Influenza A - Tamiflu 75mg bid thru 06/08/2023. * Overactive bladder - Oxybutynin 10mg daily. * Hypokalemia - KCL 10meq daily. * COPD - Anoro 1 puff daily, Prednisone 40mg daily taper. * Lung mass - Pulmonary recommended f/u CT chest in 4-6 weeks. Medications at Discharge Home Medications hydrochlorothiazide 12.5 mg capsule 25 mg PO DAILY Heart 03/02/14 tramadol 50 mg tablet 50 mg PO DAILY PRN Pain Score 1-10 03/02/14 glycopyrrolate 9 mcg-formoterol 4.8 mcg HFA aerosol inhaler (Bevespi Aerosphere) 10.7 g IH BID breathing 11/06/16 oxybutynin chloride 5 mg tablet 5 - 10 mg PO DAILY pain 01/25/20 cholecalciferol (vitamin D3) 50 mcg (2,000 unit) capsule 2,000 unit PO DAILY deficiency 07/27/20 hydroxychloroquine 200 mg tablet 200 mg PO BIDCM arthritis 07/27/20 aspirin 81 mg chewable tablet 81 mg PO DAILYCM Heart #0 tabs 06/06/23 prednisone 10 mg tablet 10 mg PO DAILY breathing #30 tabs 06/06/23 amlodipine 10 mg tablet 10 mg PO DAILY 30 days #30 tabs 06/17/23 potassium chloride 20 mEq tablet,extended release(part/cryst) 20 meq PO DAILYCM 30 days #30 tabs 06/17/23 Hospital Course Operations None Procedures None Summary of Care Provided Minutes Spent on Discharge: 35 Hospital Course: 72 year old female with below past medical history hospitalized for acute respiratory failure with hypoxia secondary to influenza A/COPD exacerbation/pneumonia, complicated by delirium, lung masses concerning for cancer, admitted to TCU with debility, here for rehabilitation, strengthening, prior to discharge home with . Discharge home with 06/14/2023, [facility] PT/OT. Physical Exam Const alert General Appearance: cooperative HEENT normocephalic Eyes PERRL and EOMs intact bilaterally Neck supple, no JVD and no carotid bruits Resp normal respiratory effort, normal air movement and clear to auscultation bilater ally Cardio regular rate and regular rhythm GI normal to inspection, nondistended, normoactive bowel sounds, non-tender and non-distended Extremity normal capillary refill General Extremity: Negative for edema Skin no rashes or lesions noted General Skin Exam: no breakdown Psych affect normal Appearance: appropriate Weight / BMI Weight Weight: 92.896 kg Body Mass Index (BMI) 34.9 ABG / Lab / Microbiology Data 06/15/23 06:20 06/16/23 06:36 D/C Instructions Discharge Diet: No restrictions Discharge Activity: Return to Normal Activity, May Shower and Use Walker Call your doctor if you observe: Fever of 101 or Higher, Inability to urinate, Inability to have a bowel movement, Shortness of breath, Dizziness, Fainting spells, Swelling in the ankles, Chest pain and Uncontrolled pain Additional Instructions: Discharge home with 06/14/2023, [facility] PT/OT. Please Follow Up With: Pulmonary Medicine [facility] When: As scheduled. Meaningful Use Info Meaningful Use Diagnoses (Choose all that apply): None applicable Discharge Plan Admission Admit Date/Time: 06/06/23 14:36 Primary Reason for Your Visit: Debility. Attending Provider: Sampson Myles Chi Primary Care Provider: Haritha Alonso Instructions Additional Instructions / Restrictions: Discharge home with 06/14/2023, [facility] PT/OT. Discharge Orders/Prescriptions Prescriptions: New potassium chloride 20 mEq Tablet,Er Particles/Crystals 20 meq PO DAILYCM 30 Days Qty: 30 0RF amlodipine 10 mg Tablet 10 mg PO DAILY 30 Days Qty: 30 0RF Continued tramadol 50 MG tablet 50 mg PO DAILY PRN (Reason: Pain Score 1-10) hydrochlorothiazide 12.5 MG capsule 25 mg PO DAILY Bevespi Aerosphere 10.7 GM HFA aerosol inhaler 10.7 g IH BID oxybutynin chloride 5 MG tablet 5 - 10 mg PO DAILY hydroxychloroquine 200 MG tablet 200 mg PO BIDCM cholecalciferol (vitamin D3) 2,000 UNIT capsule 2,000 unit PO DAILY aspirin 81 mg Tablet,Chewable 81 mg PO DAILYCM Qty: 0 0RF prednisone 10 mg tablet 10 mg PO DAILY Qty: 30 0RF Rx Instructions: 4 tabs daily for 3 days, then 3 tabs daily for 3 days, then 2 tabs daily for 3 days, then 1 tab daily for 3 days Discontinued tiotropium bromide 4 GM mist 2.5 mcg IH DAILY prednisone 5 MG tablet 5 - 10 mg PO DAILY PRN (Reason: Lupus flare) Hold Instructions: resume when you have completed the prednisone taper. potassium chloride 10 MEQ tablet extended release 10 meq PO DAILY PRN (Reason: when taking Lasix) Ensure Clear Liquid 120 ml PO 4X/DAY Qty: 0 0RF oseltamivir 75 mg Capsule 75 mg PO BID Qty: 0 0RF Rx Instructions: through 06/08/2023 amlodipine 2.5 MG tablet 10 mg PO DAILY Qty: 30 0RF amoxicillin-pot clavulanate 875-125 mg tablet 1 tab PO BID Qty: 14 0RF Rx Instructions: through 06/08/2023 benzonatate 100 mg capsule 100 mg PO TID PRN Patient Comments: TAKE 1 CAPSULE BY MOUTH 2 TO 3 TIMES DAILY NEEDED FOR COUGH plaqenil 200 mg PO BID fluconazole 100 mg tablet 100 mg PO DAILY Qty: 5 0RF Referrals / Follow Up: Haritha Alonso NP-C [Primary Care Provider] - Disposition Disposition (needs filled in before D/C Order can be placed): Home Health Service
--- NOTE | 2023-06-17 19:25 | CASEMGMT ---
Addendum entered by Lyndsay Dorantes 06/17/23 21:32: SW updated [facility] of pt's DC date via email. Original Note: Social Work SW met with pt to discuss DC plans. Pt is requesting to DC home with on 06/18. IDT agreeable. Pt requesting skilled HHC and w/c. SW offered to provide list of skilled HHC agencies with quality and resource data via [employer], but denied and agreeable to [facility]. Dtr and to transport. SW phoned referral to [facility] for [place] [facility] [place] [facility] [place] 20 [place]/c. Plan: DC home with 06/18, [facility] PT/OT/SN, w/c ESTEBAN BaileyW
[2023-06-18] MEDS: Enoxaparin 40 MG/0.4 ML Syringe SC (06:05)
--- NOTE | 2023-06-18 06:41 | MDS.RN ---
Information for the mds was obtained from review of the clinical record, interview of resident, staff, and direct observation of resident's care.
[2023-06-18 07:40] VITALS: O2SAT 93
[2023-06-18] MEDS: Aspirin 81 MG TAB.CHEW PO (08:15)
[2023-06-18] MEDS: Oxybutynin 5 MG Tablet 10 MG PO (08:15)
[2023-06-18] MEDS: Potassium Chloride Oral Tablet 20 MEQ PO (08:15)
[2023-06-18] MEDS: Arthritis Pain Compound 60 CLICK TUBE TOPICAL ×2 (08:16→21:44)
[2023-06-18] MEDS: predniSONE 10 MG Tablet PO (08:16)
[2023-06-18] MEDS: Hydroxychloroquine 200 MG Tablet PO ×2 (08:16→17:11)
[2023-06-18] MEDS: amLODIPine 10 MG Tablet PO (08:17)
[2023-06-18] MEDS: Cholecalciferol (VIT D3) 25 MCG TABLET (1,000 UNITS) 50 MCG PO (08:17)
[2023-06-18] MEDS: hydroCHLOROthiazide 25 MG Tablet PO (08:17)
[2023-06-18] MEDS: Umeclidinium Brm/Vilanterol 62.5-25 mcg Inh 10.6999999999999993 PUFF INHALATION (08:18)
[2023-06-18 09:49] VITALS: BP 125/62; PULSE 74; RESP 24; TEMP 36.8; O2SAT 99
[2023-06-18 11:15] VITALS: BMI 34.9
[2023-06-18] MEDS: traMADol 50 MG Tablet PO (11:57)
[2023-06-18 14:30] VITALS: O2SAT 97
[2023-06-19] MEDS: Enoxaparin 40 MG/0.4 ML Syringe SC (05:18)
[2023-06-19 08:45] VITALS: BP 149/66; PULSE 76; RESP 22; TEMP 36.3; O2SAT 99
[2023-06-19] MEDS: traMADol 50 MG Tablet PO (09:08)
[2023-06-19] MEDS: Potassium Chloride Oral Tablet 20 MEQ PO (09:09)
[2023-06-19] MEDS: Aspirin 81 MG TAB.CHEW PO (09:09)
[2023-06-19] MEDS: Umeclidinium Brm/Vilanterol 62.5-25 mcg Inh 10.6999999999999993 PUFF INHALATION (09:09)
[2023-06-19] MEDS: Hydroxychloroquine 200 MG Tablet PO (09:09)
[2023-06-19] MEDS: Arthritis Pain Compound 60 CLICK TUBE TOPICAL (09:10)
[2023-06-19] MEDS: amLODIPine 10 MG Tablet PO (09:14)
[2023-06-19] MEDS: hydroCHLOROthiazide 25 MG Tablet PO (09:14)
[2023-06-19] MEDS: Oxybutynin 5 MG Tablet 10 MG PO (09:14)
[2023-06-19] MEDS: Cholecalciferol (VIT D3) 25 MCG TABLET (1,000 UNITS) 50 MCG PO (09:14)
[2023-06-19] MEDS: Nystatin Powder 15gm Bottle 1 APPLIC TOPICAL (09:16)
[2023-06-19 09:21] VITALS: RESP 20
[2023-06-19 15:31] VITALS: BP 159/68; PULSE 78; RESP 24; TEMP 36.4; O2SAT 96
[2023-06-19 16:00] VITALS: BP 159/68; PULSE 82; RESP 20; TEMP 36.4; O2SAT 96
== END 2023-06-19 16:15 | disposition home health service (06) | DRG 194 ==
PROVIDERS: Admitting Provider Family Medicine Geriatric Medicine; PCP Nurse Practitioner Family; Visit Provider Family Medicine Geriatric Medicine
DX: J10.00 Influenza due to other identified influenza virus with unspecified type of pneumonia (principal); J44.0 Chronic obstructive pulmonary disease with (acute) lower respiratory infection; J96.12 Chronic respiratory failure with hypercapnia; J44.1 Chronic obstructive pulmonary disease with (acute) exacerbation; J96.11 Chronic respiratory failure with hypoxia; G20.A1 Parkinson's disease without dyskinesia, without mention of fluctuations; E55.9 Vitamin D deficiency, unspecified; B35.4 Tinea corporis; M32.9 Systemic lupus erythematosus, unspecified; I10 Essential (primary) hypertension; E87.6 Hypokalemia; Z79.82 Long term (current) use of aspirin; Z87.891 Personal history of nicotine dependence; R77.8 Other specified abnormalities of plasma proteins; Z79.52 Long term (current) use of systemic steroids; N32.81 Overactive bladder; Z79.899 Other long term (current) drug therapy; R91.8 Other nonspecific abnormal finding of lung field
CPT/HCPCS: 36415; 80048; 85025; 94668; 97110; 97112; 97116; 97162; 97166; 97530; 97535

== ENCOUNTER → 2023-07-09 | Outpatient (CLI) | payer MEDICARE, SELFPAY ==
--- NOTE | 2023-07-09 12:32 | CT_ITS ---
INDICATION: pneumonia resolution, lung mass eval EXAMINATION: CT CHEST WITHOUT CONTRAST - CT Chest W/O Contrast Injection TECHNIQUE: Helically acquired images were obtained of the chest. A radiation dose optimization technique was used for this scan. IV Contrast dosage and agent: None. RADIATION DOSAGE (If Supplied By Facility): CTDIvol = ( 17.77 ) mGy, DLP = ( 635.76 ) mGycm COMPARISON: Prior study dated: 06/04/2023 FINDINGS: LUNGS, PLEURA AND LARGE AIRWAYS: Spiculated lobulated pleural-based left upper lobe mass unchanged the prior exam concerning for malignancy. Right middle lobe infiltrate markedly improved since the previous examination but not completely resolved. Centrilobular emphysema is again seen. No evidence of pleural effusions. No pneumothorax. THYROID: No thyroid lesions. HEART AND PERICARDIUM: Heart size is normal. No pericardial effusion. CORONARY ARTERIES: Coronary artery calcification is not seen. VESSELS: Thoracic aorta is not dilated. MEDIASTINUM AND SONJA: Few mediastinal nodes could be reactive. No new adenopathy. Esophagus is unremarkable. No hiatal hernia. 1.5 cm irregular nodule in the left breast with adjacent calcifications. Correlation with mammography is recommended. UPPER ABDOMEN: No acute pathology. BONES: No suspicious lytic or blastic abnormality. CT/Chest without Contrast IMPRESSION: 1. Right middle lobe infiltrate markedly improves the previous examination concerning for pneumonia. 2. Persistent spiculated irregular pleural-based left upper lobe mass concerning for malignancy unchanged. 3. Emphysematous changes unchanged. 4. Irregular 1.5 cm left breast nodule. Correlation with mammography is recommended.. Electronically Signed: Ferny Ahn MD at 14:41 EDT ,
== END | disposition home or self-care (01) ==
PROVIDERS: PCP Nurse Practitioner Family; Referring Provider Nurse Practitioner Acute Care; Visit Provider Nurse Practitioner Acute Care
DX: J18.9 Pneumonia, unspecified organism (principal)
CPT/HCPCS: 71250

== ENCOUNTER → 2023-09-10 | Outpatient (CLI) | payer MEDICARE, SELFPAY ==
--- NOTE | 2023-09-10 10:34 | BI_ITS ---
MAMMOGRAPHY - BILATERAL SCREENING REASON FOR EXAM: Female, 72 years old. Routine annual screening examination. PERTINENT HISTORY: Personal history of breast cancer. Prior left lumpectomy and radiation treatment. Sister with breast cancer. TECHNIQUE: Digital bilateral breast parker (3D mammographic acquisition) in the CC and MLO projections. 2-D mediolateral oblique (MLO) and craniocaudad (CC) views of both breasts were obtained. CAD: Full Field Digital Mammography with Computer Added Detection was performed. COMPARISON: Comparison is made with prior study August 23, 2022 and August 22, 2021. FINDINGS: Breast Composition: There are scattered areas of fibroglandular density. There are no dominant masses or suspicious calcifications. The patient is status post lumpectomy in the deep upper central portion of the left breast with resultant postoperative scarring and calcification. Stable deformity of the breast. No other significant abnormalities are identified. There has been no significant change since the prior study. BI/SCRN MAMM (CAD)W/PARKER BILAT IMPRESSION: Stable bilateral screening mammogram. Yearly follow-up mammogram recommended. (A) ASSESSMENT CATEGORY: BIRADS Category 2: Benign. A letter regarding these results will be sent to the patient by the facility within 30 days. Approximately 10% of breast cancers are not detected by mammography. A normal mammogram should not delay biopsy of a clinically suspicious abnormality. [id number] Electronically Signed: Xu Adams MD at 12:12 EDT ,
== END | disposition home or self-care (01) ==
LOC: OPBI 10:34
PROVIDERS: PCP Nurse Practitioner Family; Referring Provider Nurse Practitioner Family; Visit Provider Nurse Practitioner Family
DX: Z12.31 Encounter for screening mammogram for malignant neoplasm of breast (principal); Z85.3 Personal history of malignant neoplasm of breast
CPT/HCPCS: 77063; 77067

== ENCOUNTER 2024-01-01 19:44 | Emergency (ER) | payer MEDICARE, SELFPAY ==
[2024-01-01 19:45] VITALS: BP 157/105; PULSE 96; RESP 18; TEMP 36.3; O2SAT 98
[2024-01-01 19:58] VITALS: BMI 29.1
--- NOTE | 2024-01-01 20:31 | EKG12_ITS ---
Test Reason : DYSRHYTHMIA Blood Pressure : / mmHG Vent. Rate : 090 BPM Atrial Rate : 090 BPM P-R Int : 136 ms QRS Dur : 066 ms QT Int : 314 ms P-R-T Axes : 055 061 067 degrees QTc Int : 384 ms Sinus rhythm with Premature supraventricular complexes CAN NOT RULE OUT Septal infarct , age undetermined Abnormal ECG Reconfirmed by Jean Carlos Hernandez ([id number]), graphic editor GERALD BENTLEY ([id number]) on 01/03/2024 9:27:06 AM Referred By: Confirmed By:Jean Carlos Hernandez
--- NOTE | 2024-01-01 20:31 | CT_ITS ---
The STUDY: CT BRAIN WITHOUT CONTRAST REASON FOR EXAM: Female, 73 years old. headaches RADIATION DOSAGE (If Supplied By Facility): CTDIvol = ( 44.99 ) mGy, DLP = ( 779.24 ) mGycm TECHNIQUE: Transaxial CT imaging of the brain was performed without administration of intravenous contrast material. Individualized dose optimization techniques were used for this CT. COMPARISON: No relevant priors. FINDINGS: Normal soft tissue structures. Normal calvarium. Normal size ventricles and extra-axial spaces for the patient''s age. There are areas of decreased attenuation within the white matter tracts of the supratentorial brain, consistent with microvascular disease changes. Normal basal ganglia and thalami. Normal brainstem. Normal cerebellum. There is no intracranial hemorrhage. There are no findings of an acute ischemic infarction. Normal visualized paranasal sinuses. CT/Brain/Head without Contrast IMPRESSION: Chronic involutional changes of the brain. No acute abnormalities. Electronically Signed: Mario Horton MD at 21:42 EDT ,
--- NOTE | 2024-01-01 20:33 | EDS_ITS ---
HPI History of Present Illness Chief Complaint: Weakness Informant: patient and spouse/S.O. Narrative Narrative: 73-year-old female presenting to the emergency room chief complaint of generalized weakness. Patient states that 6 months ago she was admitted in the hospital for pneumonia and weakness and dehydration. States that she is never fully recovered and continues to be very weak. She was treated for a bladder infection with an unknown medicine. She states that she saw her doctor last week and was told she had a UTI that she should drink some Ensure. She states that this weakness has been cumulative over weeks to months. She denies any fever. She notes she is chronically on 4 L nasal cannula due to COPD. She notes no change in her breathing patterns or chronic cough. She denies any diarrhea or vomiting. She notes frequent headaches. She has had prior breast cancer surgery of the left breast. [facility] Medical History Acute dehydration Skin tag History of left breast cancer RIGHT ANKLE FRACTURE REPAIR EXCISION STOMACH TUMOR Parkinson disease Mixed connective tissue disease Polyarthropathy Lupus Hypertension COPD (chronic obstructive pulmonary disease) Asthma Arthritis Pulmonary nodules/lesions, multiple Tobacco use disorder Breast pain Osteopenia Malignant neoplasm of central portion of female breast Low bone density Home Medications ?Medication ?Instructions ?Recorded ?Last Taken ?Type hydrochlorothiazide 12.5 mg capsule 25 mg PO DAILY Heart 03/02/14 06/06/23 08:45 History tramadol 50 mg tablet 50 mg PO DAILY PRN Pain Score 1-10 03/02/14 06/06/23 06:30 History oxybutynin chloride 5 mg tablet 5 - 10 mg PO DAILY pain 01/25/20 06/06/23 08:45 History cholecalciferol (vitamin D3) 50 2,000 unit PO DAILY deficiency 07/27/20 06/06/23 08:45 History mcg (2,000 unit) capsule hydroxychloroquine 200 mg tablet 200 mg PO BIDCM arthritis 07/27/20 06/06/23 08:45 History aspirin 81 mg chewable tablet 81 mg PO DAILYCM Heart #0 tabs 06/06/23 06/06/23 08:45 Rx amlodipine 10 mg tablet 10 mg PO DAILY 30 days #30 tabs 06/17/23 Unknown Rx potassium chloride 20 mEq 20 meq PO DAILYCM 30 days #30 tabs 03/11/24 Unknown Rx tablet,extended release(part/cryst) budesonide 160 mcg-glycopyr 9 2 inh inhalation BID #10.7 grams 07/05/23 Unknown Rx mcg-formot 4.8 mcg/actuation HFA inhaler (Breztri Aerosphere) prednisone 10 mg tablet 10 mg PO DAILY PRN breathing 07/05/23 Unknown History Allergy/AdvReac Type Severity Reaction Status Date / Time bromide salts (bromide) AdvReac Hives Verified 01/01/24 19:45 strawberry AdvReac Hives Verified 01/01/24 19:45 Family History Mother Arthritis Diabetes Hypertension Osteoporosis Father Arthritis Heart disease Sister Arthritis Breast cancer Diabetes Hypertension Son Diabetes Other Alzheimer disease Anemia Hyperlipidemia Thyroid disorder Surgical History History of lung biopsy History of tubal ligation History of lumpectomy Hx of cholecystectomy Social History household members: spouse Smoking Status: Former smoker alcohol intake: never substance use type: does not use ROS ROS ED ROS Narrative Generalized weakness fatigue occasional confusion Constitutional Constitutional ED: Denies chills, fever(s) or weight loss Eyes Eyes: Denies change in vision or diplopia ENT ENT ED: Denies ear pain, rhinorrhea or sore throat Cardiovascular Cardiovascular: Denies chest pain, orthopnea, palpitations or racing heartbeat Respiratory/Chest Respiratory/Chest: Reports cough and other Details: no change in chronic dyspnea cough ; Denies orthopnea Gastrointestinal Gastrointestinal: Denies abdominal pain, diarrhea, nausea or vomiting Genitourinary Genitourinary ED: Denies dysuria, hematuria or urinary frequency Musculoskeletal Musculoskeletal: Denies arthralgias or myalgias Integumentary Denies abscess or rash Neurologic Neurologic: Reports headache(s); Denies weakness Psychiatric Psychiatric: Denies anxiety, depression, suicidal ideation or suicidal thoughts Endocrine Endocrinology: Denies polydipsia, polyphagia or polyuria Allergic/Immunologic Allergic/Immunologic ED: Denies mouth swelling, tongue swelling or urticaria EXAM Physical Exam Const Vital Signs: 01/01/24 19:45 01/01/24 20:02 01/01/24 20:47 Temperature 97.4 F L 97 F L Temperature Source Oral Temporal Pulse Rate 96 88 Respiratory Rate 18 38 H Respiratory Effort Short of Breath Respiratory Pattern Tachypnea Blood Pressure 157/105 H 150/71 H Blood Pressure Mean 122 97 Pulse Ox 98 99 Oxygen Delivery Method Nasal Cannula Nasal Cannula Oxygen Flow Rate (L/min) 4 4 01/01/24 21:00 01/01/24 22:00 01/01/24 22:25 Temperature 98.2 F 98.6 F 98.6 F Temperature Source Oral Oral Pulse Rate 92 89 87 Respiratory Rate 32 H 27 H 28 H Respiratory Effort Respiratory Pattern Blood Pressure 145/100 H 176/132 H 176/132 H Blood Pressure Mean 115 146 146 Pulse Ox 99 99 100 Oxygen Delivery Method Nasal Cannula Nasal Cannula Oxygen Flow Rate (L/min) 4 4 Positive well nourished, well developed and obese General Appearance ED: well developed Nutritional Appearance: obese HEENT Reports normocephalic, head/scalp atraumatic and moist mucous membranes Eyes PERRL and EOMs intact bilaterally Neck no lymphadenopathy, supple and no JVD Resp clear to auscultation bilaterally Resp Narrative: Patient appears tachypneic but maintains that that is not abnormal for her. Cough nonproductive Cardio regular rate, regular rhythm and no murmurs GI normal to inspection, nondistended, normoactive bowel sounds and non-tender Palpation: soft Back/Spine no CVA tenderness and normal ROM Extremity normal to inspection General Extremety ED: Negative for edema General Extremity: Negative for edema Neuro oriented x3 and CN's II-XII intact bilaterally Sensorium / Orientation: alert Motor Exam: strength 5/5 throughout Psych mental status grossly normal Mood & Affect: Negative for depressed or tearful Skin no rashes or lesions noted and no wounds MDM MDM MDM Narrative Medical decision making narrative: Differential diagnosis includes but not limited to pneumonia COPD exacerbation viral syndrome anemia electrolyte abnormalities dehydration renal or liver disease intracranial hemorrhage/hematoma stroke CT the brain shows no acute findings my independent interpretation of the chest x-ray is no acute process. Please see radiologist read for full details white count 16.7 but remains afebrile. Hemoglobin 12.5 platelet electrolytes are fairly unremarkable BUN of 21 creatinine 0.91 glucose of 150 alcohols negative AST of 85 COVID test is positive. Patient currently on antibiotics for urinary tract infection. Spoke with the patient regarding the above results. She would like to go home. She is happy that her labs do not show any significant dehydration. The exact etiology of the white count is questionable at this point this could be chronic versus reactive. She is on antibiotic currently for UTI. I discussed with her and her regarding admission and whether or not they felt safe for her to be at home. would like her to be at home and she feels that she would be better at home. will monitor her and return if any concerns or worsening History & Record Review Discussion w/independent historian: Patient and Family Lab Data Attestation: I reviewed the patient's lab results. Labs: Laboratory Results - last 24 hr 01/01/24 20:40 WBC 16.7 H RBC 4.17 L Hgb 12.5 Hct 37.9 MCV 90.9 MCH 30.0 MCHC 33.0 RDW Std Deviation 45.0 H RDW Coeff of Nasir 13.5 Plt Count TNP MPV 10.3 Immature Gran % (Auto) 0.600 Neut % (Auto) 80.2 H Lymph % (Auto) 9.5 L [place] % (Auto) 7.6 Eos % (Auto) 1.7 Baso % (Auto) 0.4 Absolute Neuts (auto) 13.4 H Absolute Lymphs (auto) 1.58 Nucleated RBC % 0 Differential Comment SCANNED Platelet Estimate ADEQUATE PT 15.0 H INR 1.2 APTT 27.4 Sodium 131 L Potassium 5.1 Chloride 96 L Carbon Dioxide 26.0 Anion Gap 9 BUN 21 H Creatinine 0.91 Estim Creat Clear Calc 55.30 Est GFR (MDRD) Af Amer 78 Est GFR (MDRD) Non-Af 65 BUN/Creatinine Ratio 23.2 H Glucose 150 H Calcium 9.7 Total Bilirubin 0.70 Direct Bilirubin 0.12 AST 85 H ALT 24 Alkaline Phosphatase 113 Total Protein 7.6 Albumin 3.4 Globulin 4.2 Ethyl Alcohol < 3.0 Radiography Diagnostic Testing: Clinical Impression(s) from Imaging Studies Brain CT 01/01/24 20:31 IMPRESSION: Chronic involutional changes of the brain. No acute abnormalities. Electronically Signed: Mario Horton MD at 21:42 EDT , Chest X-Ray 01/01/24 21:26 IMPRESSION: Stable irregular density of the left apex soft tissue density in the left apex which could be scarring or active process including neoplasm. Lungs otherwise clear. Electronically Signed: Mario Horton MD at 21:51 EDT , EKG Initial EKG: Attestation: I personally reviewed and interpreted this EKG as follows: Comments: Sinus rhythm ventricular rate 90 bpm Discharge Plan Triage Chief Complaint: Weakness ED Provider: Bill Urbina Dx/Rx/DC Orders Clinical Impression: COVID-19, COPD (chronic obstructive pulmonary disease), Weakness Instructions: Coronavirus Disease 2019 (COVID-19): Overview Prescriptions: No Action prednisone 10 mg tablet 10 mg PO DAILY PRN (Reason: breathing) Rx Instructions: 4 tabs daily for 3 days, then 3 tabs daily for 3 days, then 2 tabs daily for 3 days, then 1 tab daily for 3 days Breztri Aerosphere 160-9-4.8 mcg/actuation HFA aerosol inhaler 2 inh inhalation BID Qty: 10.7 6RF tramadol 50 MG tablet 50 mg PO DAILY PRN (Reason: Pain Score 1-10) hydrochlorothiazide 12.5 MG capsule 25 mg PO DAILY oxybutynin chloride 5 MG tablet 5 - 10 mg PO DAILY hydroxychloroquine 200 MG tablet 200 mg PO BIDCM cholecalciferol (vitamin D3) 2,000 UNIT capsule 2,000 unit PO DAILY aspirin 81 mg Tablet,Chewable 81 mg PO DAILYCM Qty: 0 0RF potassium chloride 20 mEq Tablet,Er Particles/Crystals 20 meq PO DAILYCM 30 Days Qty: 30 0RF amlodipine 10 mg Tablet 10 mg PO DAILY 30 Days Qty: 30 0RF Primary Care Provider: Haritha Alonso Referrals: Haritha Alonso, COMMERCIAL CONSTRUCTION ESTIMATOR-C [Primary Care Provider] - As Needed Print Language: Botswan[place] Disposition Disposition: Home, Self Care Discharge Date/Time: 01/01/24 22:37
[2024-01-01 20:47] VITALS: BP 150/71; PULSE 88; RESP 38; TEMP 36.1; O2SAT 99
[2024-01-01 21:00] VITALS: BP 145/100; PULSE 92; RESP 32; TEMP 36.8; O2SAT 99
[2024-01-01 21:01] LABS: Absolute Lymphocyte Count 1.58 X10^3/uL (0.83-4.51); Absolute Neutrophil Count 13.4 X10^3/uL (2.0-7.7); Basophil# 0.06 X10^3/uL; Basophil% 0.4 % (0-1); Eosinophil# 0.29 X10^3/uL; Eosinophils% 1.7 % (0-5); Hematocrit 37.9 % (37-47); Hemoglobin 12.5 g/dL (12.0-15.0); Lymphocyte # 1.58 X10^3/ul (0.83-4.51); Lymphocyte % 9.5 % (19-41); Mean Corpuscular Volume 90.9 fL (81-99); Mean Platelet Vol. 10.3 fl (6.2-12.0); Monocyte# 1.26 X10^3/uL; Monocyte% 7.6 % (0-10); NRBC Flagged by Analyzer 0 % (0-5); Neutrophil # 13.36 X10^3/uL (2.7-7.7); Neutrophil % 80.2 % (47-70); POSITIVE COUNT YES; RBC Distribution Width CV 13.5 % (11.6-14.6); Red Blood Count 4.17 M/mm3 (4.2-5.4); White Blood Count 16.7 K/mm3 (4.4-11.0)
[2024-01-01 21:09] LABS: International Normalized Ratio 1.2
[2024-01-01 21:10] LABS: Partial Thromboplast Time 27.4 Seconds (24.1-36.2)
[2024-01-01 21:12] LABS: Alcohol, Blood (Medical)-Serum < 3.0 mg/dL
[2024-01-01 21:21] LABS: AST(SGOT) 85 U/L (15-37); Alanine Aminotransfer ALT/SGPT 24 U/L (13-56); Albumin, Serum 3.4 g/dL (3.2-5.0); Alkaline Phosphatase 113 U/L (45-117); Anion Gap 9 (5-15); BUN 21 mg/dL (7-18); BUN/Creat Ratio 23.2 RATIO (10-20); Bilirubin, Direct 0.12 mg/dL (0.00-0.30); Calcium,Total 9.7 mg/dL (8.5-10.1); Chloride 96 mmol/L (98-107); Creatinine, Serum 0.91 mg/dL (0.55-1.02); EST Glomerular Filtration Rate 65 mL/min (>60); Est Glom Filt Rate - Afr Amer 78 mL/min (>60); Globulin 4.2 g/dL (2.2-4.2); Glucose 150 mg/dL (74-106); Potassium 5.1 mmol/L (3.5-5.1); Protein, Total 7.6 g/dL (6.4-8.2); Sodium Level 131 mmol/L (136-145)
--- NOTE | 2024-01-01 21:26 | RAD_ITS ---
STUDY: X-RAY CHEST REASON FOR EXAM: Female, 73 years old. copd cough TECHNIQUE: Single AP portable view of the chest. COMPARISON: CT scan 07/09/2023, chest x-ray 06/04/2023. FINDINGS: Normal lung volumes. Stable irregular density of the left apex soft tissue density in the left apex which could be scarring or active process including neoplasm. Lungs otherwise clear. No effusions. Normal size heart. Normal mediastinum and rachael. Normal visualized pulmonary arteries. There is atherosclerotic calcification of the aortic arch with tortuosity. Normal visualized thoracic spine. Normal visualized ribs, clavicles, and shoulders. There is no demonstrated abnormality of the visualized soft tissue structures of the upper abdomen. RAD/Chest 1 View (Portable) IMPRESSION: Stable irregular density of the left apex soft tissue density in the left apex which could be scarring or active process including neoplasm. Lungs otherwise clear. Electronically Signed: Mario Horton MD at 21:51 EDT ,
[2024-01-01 21:45] LABS: Differential Indicated SCAN CRITERIA MET
[2024-01-01] MEDS: 0.9% Normal Saline (1000mL) 1,000 ML 1000 ML IV (21:48)
[2024-01-01 22:00] VITALS: BP 176/132; PULSE 89; RESP 27; TEMP 37; O2SAT 99
[2024-01-01 22:05] LABS: Differential Comment SCANNED; Platelet Estimate ADEQUATE (ADEQ)
[2024-01-01 22:25] VITALS: BP 176/132; PULSE 87; RESP 28; TEMP 37; O2SAT 100
--- NOTE | 2024-01-01 22:25 | ED.RN ---
Pt refusing to have BP checked. States it hurts too much. RN offered education on importance of knowing BP for sepsis, pt still denied.
== END 2024-01-01 22:37 | disposition home or self-care (01) ==
PROVIDERS: Emergency Provider Emergency Medicine; PCP Nurse Practitioner Family; Visit Provider Emergency Medicine
DX: U07.1 COVID-19 (principal); G20.A1 Parkinson's disease without dyskinesia, without mention of fluctuations; J44.9 Chronic obstructive pulmonary disease, unspecified; N39.0 Urinary tract infection, site not specified; R53.1 Weakness; I10 Essential (primary) hypertension; Z99.81 Dependence on supplemental oxygen; Z79.82 Long term (current) use of aspirin; Z79.52 Long term (current) use of systemic steroids; Z79.899 Other long term (current) drug therapy; Z87.891 Personal history of nicotine dependence; Z85.3 Personal history of malignant neoplasm of breast
CPT/HCPCS: 70450; 71045; 80048; 80076; 82077; 85025; 85610; 85730; 87631; 93005; 96360; 99284; J7030; A4216

== ENCOUNTER 2024-01-06 12:31 | Inpatient (IN) | payer MEDICARE, SELFPAY ==
[2024-01-06] VITALS (14 sets, daily range): BP systolic 147–193; BP diastolic 71–163; PULSE 72–97; RESP 16–28; TEMP 35.9–36.7; O2SAT 98–100; BMI 32.1; BMI 30.7
--- NOTE | 2024-01-06 13:02 | EKG12_ITS ---
Test Reason : RYTHM CHANGE Blood Pressure : / mmHG Vent. Rate : 076 BPM Atrial Rate : 076 BPM P-R Int : 094 ms QRS Dur : 074 ms QT Int : 378 ms P-R-T Axes : 000 045 067 degrees QTc Int : 425 ms Sinus rhythm with short ND ST ELEVATION CONSIDER ANTERIOR INJURY Abnormal ECG Confirmed by MICHELLE REAGAN, TEMITOPE ([id number]), video editor GERALD BENTLEY ([id number]) on 01/07/2024 8:59:31 AM Referred By: Confirmed By:TEMITOPE MARTINEZ MD
--- NOTE | 2024-01-06 13:19 | ED.RN ---
this rn and medic note that pt has elevation in ST segment on athletic monitor. this rn calls for an EKG and finds Jeana RT to complete. This rn also finds Dr. Bradley and lets him know that there was ST elevation noted on athletic monitor and EKG was obtained. Dr. Bradley stated that he was waiting for troponin to come back.
[2024-01-06 13:56] LABS: Absolute Lymphocyte Count 2.22 X10^3/uL (0.83-4.51); Basophil# 0.03 X10^3/uL; Basophil% 0.2 % (0-1); Eosinophil# 0.48 X10^3/uL; Hematocrit 38.3 % (37-47); Hemoglobin 12.5 g/dL (12.0-15.0); Lymphocyte # 2.22 X10^3/ul (0.83-4.51); Lymphocyte % 18.4 % (19-41); Mean Corp Hgb Conc 32.6 g/dL (32-36); Mean Corpuscular Volume 92.1 fL (81-99); Mean Platelet Vol. 10.2 fl (6.2-12.0); Monocyte# 1.32 X10^3/uL; Monocyte% 10.9 % (0-10); NRBC Flagged by Analyzer 0 % (0-5); Neutrophil # 7.99 X10^3/uL (2.7-7.7); Neutrophil % 66.2 % (47-70); Platelet Count 180 K/mm3 (150-450); RBC Distribution Width CV 13.5 % (11.6-14.6); RBC Distribution Width SD 45.3 fl (35.1-43.9); Red Blood Count 4.16 M/mm3 (4.2-5.4); White Blood Count 12.1 K/mm3 (4.4-11.0)
[2024-01-06] MEDS: 0.9% Normal Saline (1000mL) 1,000 ML 999 ML IV (14:04)
[2024-01-06 14:05] LABS: International Normalized Ratio 1.4; Partial Thromboplast Time 28.4 Seconds (24.1-36.2); Prothrombin Time (Protime)PT. 16.6 SECONDS (11.7-14.9)
--- NOTE | 2024-01-06 14:06 | RAD_ITS ---
HISTORY: cough sob. TECHNIQUE: XR Chest 2 Views. COMPARISON: 01/01/2024. FINDINGS: CARDIOMEDIASTINAL BORDERS: Cardiac silhouette within normal limits in size. Mediastinal contour also unchanged with calcification of the aortic knob. LUNGS: Unchanged left apical opacity. PLEURA: No pleural effusion or pneumothorax seen. OSSEOUS STRUCTURES: Degenerative change. RAD/Chest PA and Lateral IMPRESSION: No significant interval change. Left apical opacity which may be secondary to tumor or infection. Electronically Signed: Rayne Herbert MD at 14:26 EDT ,
--- NOTE | 2024-01-06 14:13 | EDS_ITS ---
HPI History of Present Illness Chief Complaint: Shortness of Breath Narrative Narrative: Patient is a 73-year-old female past medical history of COPD chronically on 4 L nasal cannula, Parkinson's disease, lupus, hypertension who presented to the emergency department the chief complaint of cough, not feeling any better. States that she was recently here at the hospital was diagnosed with COVID-19 and she was sent home. Patient denies any recent steroid use. States that for the past several days she has been feeling worse and coughing more prompting her to come here further evaluation management. States that she remains on her chronic 4 L. PFSH [facility] Medical History Acute dehydration Skin tag History of left breast cancer RIGHT ANKLE FRACTURE REPAIR EXCISION STOMACH TUMOR Parkinson disease Mixed connective tissue disease Polyarthropathy Lupus Hypertension COPD (chronic obstructive pulmonary disease) Asthma Arthritis Pulmonary nodules/lesions, multiple Tobacco use disorder Breast pain Osteopenia Malignant neoplasm of central portion of female breast Low bone density Home Medications ?Medication ?Instructions ?Recorded ?Last Taken ?Type hydrochlorothiazide 12.5 mg capsule 25 mg PO DAILY Heart 03/02/14 06/06/23 08:45 History tramadol 50 mg tablet 50 mg PO DAILY PRN Pain Score 1-10 03/02/14 06/06/23 06:30 History oxybutynin chloride 5 mg tablet 5 - 10 mg PO DAILY pain 01/25/20 06/06/23 08:45 History cholecalciferol (vitamin D3) 50 2,000 unit PO DAILY deficiency 07/27/20 06/06/23 08:45 History mcg (2,000 unit) capsule hydroxychloroquine 200 mg tablet 200 mg PO BIDCM arthritis 07/27/20 06/06/23 08:45 History aspirin 81 mg chewable tablet 81 mg PO DAILYCM Heart #0 tabs 06/06/23 06/06/23 08:45 Rx amlodipine 10 mg tablet 10 mg PO DAILY 30 days #30 tabs 06/17/23 Unknown Rx potassium chloride 20 mEq 20 meq PO DAILYCM 30 days #30 tabs 06/17/23 Unknown Rx tablet,extended release(part/cryst) budesonide 160 mcg-glycopyr 9 2 inh inhalation BID #10.7 grams 07/05/23 Unknown Rx mcg-formot 4.8 mcg/actuation HFA inhaler (Breztri Aerosphere) prednisone 10 mg tablet 10 mg PO DAILY PRN breathing 07/05/23 Unknown History Allergy/AdvReac Type Severity Reaction Status Date / Time bromide salts (bromide) AdvReac Hives Verified 01/06/24 12:35 strawberry AdvReac Hives Verified 01/06/24 12:35 Family History Mother Arthritis Diabetes Hypertension Osteoporosis Father Arthritis Heart disease Sister Arthritis Breast cancer Diabetes Hypertension Son Diabetes Other Alzheimer disease Anemia Hyperlipidemia Thyroid disorder Surgical History History of lung biopsy History of tubal ligation History of lumpectomy Hx of cholecystectomy Social History household members: spouse Smoking Status: Former smoker alcohol intake: never substance use type: does not use ROS ROS ED ROS Narrative Constitutional: Complains of chills denies any fevers, lightheadedness, dizziness, headaches Eyes: Denies change in vision double vision blurry vision Cardiovascular: Denies chest pain or palpitations Respiratory: Complains of coughing and shortness of breath as noted above Abdomen: Complains of diarrhea denies abdominal pain nausea vomiting : Denies any urinary symptoms Neurological: Denies numbness, knees, tingling Skin: Denies rashes or lesions EXAM Physical Exam Narrative Exam Narrative: General: Patient lying in bed rest comfortably did not appear to be in acute distress Head: Atraumatic, normocephalic Eyes: PERRL bilateral, EOMI bilateral, no conjunctival injection noted Neck: Soft, supple, trach midline Cardiovascular: Regular rate and rhythm no murmurs gallops rubs noted Respiratory: Coarse breath sounds bilaterally no rales rhonchi or wheezes noted Abdomen: Soft, nondistended, nontender to palpation, bowel sounds present x 4 Extremities: +5/5 strength noted in the bilateral lower extremities, no pedal edema no exam Neurological: Patient following commands knew that she was at [facility] years 2023 Skin: Warm, dry, intact Const Vital Signs: 01/06/24 12:32 01/06/24 12:34 01/06/24 12:51 Temperature 97.4 F L 97.4 F L Temperature Source Temporal Oral Pulse Rate 78 78 Respiratory Rate 18 18 Respiratory Effort Short of Breath Labored Respiratory Pattern Tachypnea Blood Pressure 159/74 H 159/74 H Blood Pressure Mean 102 102 Pulse Ox 100 100 Oxygen Delivery Method Nasal Cannula Nasal Cannula Nasal Cannula Oxygen Flow Rate (L/min) 4 4 4 01/06/24 13:02 01/06/24 13:34 01/06/24 15:24 Temperature 97.7 F L Temperature Source Oral Pulse Rate 72 Respiratory Rate 28 H 28 H Respiratory Effort Respiratory Pattern Blood Pressure 166/79 H 191/86 H Blood Pressure Mean 108 Pulse Ox 99 Oxygen Delivery Method Nasal Cannula Nasal Cannula Oxygen Flow Rate (L/min) 4 01/06/24 15:27 Temperature 98.1 F Temperature Source Pulse Rate 97 Respiratory Rate 28 H Respiratory Effort Respiratory Pattern Blood Pressure 191/86 H Blood Pressure Mean 121 Pulse Ox 98 Oxygen Delivery Method Oxygen Flow Rate (L/min) MDM MDM MDM Narrative Medical decision making narrative: Patient is a 73-year-old female who presents to the emergency department with a chief complaint of cough and not feeling any better from her recent diagnosis of COVID-19. Patient will have workup performed here on the differential diagnose includes but limited to COVID-19, pneumonia, COPD exacerbation secondary to other viral etiology, ACS. Once workup is obtained reviewed she will be reevaluated. Patient given IV fluids, DuoNeb and Solu-Medrol. General: Patient CBC was reviewed and was significant for leukocytosis of 12,0 00, hemoglobin 12.5 was stable, platelet count normal at 180. Patient INR was notably 1.4, PT of 16.6, sodium was noted be 135, potassium 3.9, creatinine was noted be 1.11. Patient lactic acid normal at 1.1, AST and ALT were 20 and 18 respectively. Patient's EKG was reviewed originally which showed nonspecific ST changes in the inferior leads with no reciprocal changes noted with a rate of 76 bpm. Patient's troponin came back to 19,584 I repeated the patient's EKG and sent this to dry house operator Dr. Werner who reviewed the images and came to evaluate the patient at bedside. I did bedside echocardiogram that showed hyperdynamic right ventricle, no RV dilation no pericardial effusion. Patient's repeat EKG was reviewed as well which showed the similar ST changes noted from the previous EKG. Patient Chest x-ray was reviewed and showed no significant interval change left apical opacity which may be secondary to tumor infection. After discussion with the patient with interventional cardiology was decided to place the patient on heparin, aspirin, Brilinta and taken to the [facility] she will be diagnosed with NSTEMI. Once again the patient did not have any chest pain she was chronically on her 4 L nasal cannula came in for generalized not feeling well increased cough with her recent COVID-19 infection. Patient will require admission to the hospitalist service patient was taken to [facility] first and [facility] team was unable to place orders therefore I placed the admission order under Dr. Werner and will discuss case with hospitalist for ultimate admission. Did discuss case with Dr. José who will accept patient for admission. Patient and significant other at bedside agreeable to this plan all question concerns were answered bedside. Lab Data Labs: Laboratory Results - last 24 hr 01/06/24 01/06/24 13:36 13:50 WBC 12.1 H RBC 4.16 L Hgb 12.5 Hct 38.3 MCV 92.1 MCH 30.0 MCHC 32.6 RDW Std Deviation 45.3 H RDW Coeff of Nasir 13.5 Plt Count 180 MPV 10.2 Immature Gran % (Auto) 0.300 Neut % (Auto) 66.2 Lymph % (Auto) 18.4 L [place] % (Auto) 10.9 H Eos % (Auto) 4.0 Baso % (Auto) 0.2 Absolute Neuts (auto) 8.0 H Absolute Lymphs (auto) 2.22 Nucleated RBC % 0 PT 16.6 H INR 1.4 APTT 28.4 Sodium 135 L Potassium 3.9 Chloride 100 Carbon Dioxide 26.0 Anion Gap 9 BUN 25 H Creatinine 1.11 H Est GFR (MDRD) Af Amer 62 Est GFR (MDRD) Non-Af 51 L BUN/Creatinine Ratio 22.5 H Glucose 107 H Lactic Acid 1.1 Calcium 9.5 Total Bilirubin 0.60 AST 20 ALT 18 Alkaline Phosphatase 103 Troponin I High Sens 84038 H* Total Protein 7.5 Albumin 3.1 L Globulin 4.4 H Albumin/Globulin Ratio 0.7 L Radiography Diagnostic Testing: Clinical Impression(s) from Imaging Studies Chest X-Ray 01/06/24 14:06 IMPRESSION: No significant interval change. Left apical opacity which may be secondary to tumor or infection. Electronically Signed: Rayne Herbert MD at 14:26 EDT , Discharge Plan Dx/Rx/DC Orders Clinical Impression: COVID-19, Chronic hypoxic respiratory failure, COPD (chronic obstructive pulmonary disease), Non-ST elevation [place] (NSTEMI) Disposition Disposition: Acute Care Hospital [facility] Discharge Date/Time: 01/06/24 15:27
[2024-01-06 14:23] LABS: Lactic Acid 1.1 mmol/L (0.4-1.9)
[2024-01-06 14:25] LABS: ALB/GLOB Ratio 0.7 RATIO (0.9-2.4); AST(SGOT) 20 U/L (15-37); Alanine Aminotransfer ALT/SGPT 18 U/L (13-56); Albumin, Serum 3.1 g/dL (3.2-5.0); Alkaline Phosphatase 103 U/L (45-117); Anion Gap 9 (5-15); BUN 25 mg/dL (7-18); BUN/Creat Ratio 22.5 RATIO (10-20); Calcium,Total 9.5 mg/dL (8.5-10.1); Chloride 100 mmol/L (98-107); Creatinine, Serum 1.11 mg/dL (0.55-1.02); EST Glomerular Filtration Rate 51 mL/min (>60); Est Glom Filt Rate - Afr Amer 62 mL/min (>60); Globulin 4.4 g/dL (2.2-4.2); Glucose 107 mg/dL (74-106); Potassium 3.9 mmol/L (3.5-5.1); Protein, Total 7.5 g/dL (6.4-8.2); Sodium Level 135 mmol/L (136-145); Troponin-I HS 19584 pg/mL (3.0-54.0)
--- NOTE | 2024-01-06 14:25 | EKG12_ITS ---
Test Reason : Blood Pressure : / mmHG Vent. Rate : 082 BPM Atrial Rate : 082 BPM P-R Int : 136 ms QRS Dur : 070 ms QT Int : 380 ms P-R-T Axes : 049 046 074 degrees QTc Int : 443 ms Critical Test Result: STEMI Sinus rhythm with Premature atrial complexes ST elevation consider inferolateral injury or acute infarct Confirmed by MICHELLE REAGAN, TEMITOPE ([id number]), news copy editor GERALD BENTLEY ([id number]) on 01/07/2024 8:46:52 AM Referred By: NEAL Confirmed By:TEMITOPE MARTINEZ MD
--- NOTE | 2024-01-06 14:42 | ED.RN ---
this RN takes new EKG from [facility] and takes in to . EKG looks to be a STEMI from interpretation of machine. Dr. Bradley takes a picture for Dr. Werner, mat sewer. Dr. Bradley explains to this rn that there is more artifact in the lead that looks to be more elevated and there would be a form of depression in a different lead and Dr. Werner to make the call. This RN obtains STEMI box and crash cart to bedside.
--- NOTE | 2024-01-06 14:47 | ED.RN ---
Dr. Bradley comes back to tell this rn that Dr. Werner will be coming down to ED and will take patient to yard labor supervisor
[2024-01-06] MEDS: TICAGRELOR 90 MG TABLET 180 MG PO (14:56)
[2024-01-06] MEDS: Aspirin 81 MG TAB.CHEW 324 MG PO (14:56)
[2024-01-06] MEDS: Heparin Injection (Vial) 5,000 UNIT/ML VIAL 4000 UNIT IV (14:57)
--- NOTE | 2024-01-06 15:10 | PCM.CONS.C ---
Assessment & Plan Assessment/Plan (1) Acute SC: QUALIFIERS: Myocardial infarction type: non-ST elevation myocardial infarction Qualified Code(s): I21.4 - Non-ST elevation (NSTEMI) myocardial infarction PLAN: We will proceed with coronary angiography. Rest of the management will be based on coronary angiography findings. Patient will also be on aspirin, Brilinta, statin, beta-bianca. Will get a 2D echo as well. HPI Consult Data Date of Consult: 01/06/24 HPI Narrative Reason for Consultation: Shortness of breath, elevated troponin HPI Narrative: ZEINAB HULL, is a 73 F who presents with shortness of breath. Patient is chronically on 4 L/min of oxygen at home. She was recently in the ER and was diagnosed with COVID-19 pneumonia. She has been having worse shortness of breath than her baseline and was not getting better and decided to come to the emergency room. Currently her shortness of breath is improved and is at baseline according to patient. She denies any chest pain. However her troponin came back elevated at around 19,000. Her EKG shows changes that are concerning as well. These findings were discussed with the patient in detail. Patient was hesitant initially but later agreed to proceed with coronary angiography. Risks and benefits explained in detail to the patient. [facility] Medical History Acute dehydration Skin tag History of left breast cancer RIGHT ANKLE FRACTURE REPAIR EXCISION STOMACH TUMOR Parkinson disease Mixed connective tissue disease Polyarthropathy Lupus Hypertension COPD (chronic obstructive pulmonary disease) Asthma Arthritis Pulmonary nodules/lesions, multiple Tobacco use disorder Breast pain Osteopenia Malignant neoplasm of central portion of female breast Low bone density Home Medications ?Medication ?Instructions ?Recorded ?Last Taken ?Type hydrochlorothiazide 12.5 mg capsule 25 mg PO DAILY Heart 03/02/14 06/06/23 08:45 History tramadol 50 mg tablet 50 mg PO DAILY PRN Pain Score 1-10 03/02/14 06/06/23 06:30 History oxybutynin chloride 5 mg tablet 5 - 10 mg PO DAILY pain 01/25/20 06/06/23 08:45 History cholecalciferol (vitamin D3) 50 2,000 unit PO DAILY deficiency 07/27/20 06/06/23 08:45 History mcg (2,000 unit) capsule hydroxychloroquine 200 mg tablet 200 mg PO BIDCM arthritis 07/27/20 06/06/23 08:45 History aspirin 81 mg chewable tablet 81 mg PO DAILYCM Heart #0 tabs 06/06/23 06/06/23 08:45 Rx amlodipine 10 mg tablet 10 mg PO DAILY 30 days #30 tabs 06/17/23 Unknown Rx potassium chloride 20 mEq 20 meq PO DAILYCM 30 days #30 tabs 06/17/23 Unknown Rx tablet,extended release(part/cryst) budesonide 160 mcg-glycopyr 9 2 inh inhalation BID #10.7 grams 07/05/23 Unknown Rx mcg-formot 4.8 mcg/actuation HFA inhaler (Breztri Aerosphere) prednisone 10 mg tablet 10 mg PO DAILY PRN breathing 07/05/23 Unknown History Allergy/AdvReac Type Severity Reaction Status Date / Time bromide salts (bromide) AdvReac Hives Verified 01/06/24 12:35 strawberry AdvReac Hives Verified 01/06/24 12:35 Family History Mother Arthritis Diabetes Hypertension Osteoporosis Father Arthritis Heart disease Sister Arthritis Breast cancer Diabetes Hypertension Son Diabetes Other Alzheimer disease Anemia Hyperlipidemia Thyroid disorder Surgical History History of lung biopsy History of tubal ligation History of lumpectomy Hx of cholecystectomy Social History household members: spouse Smoking Status: Former smoker alcohol intake: never substance use type: does not use Physical Exam Const alert HEENT normocephalic Eyes no scleral icterus Resp normal respiratory effort Cardio regular rate Risk Stratification Risk Stratification Applicable: No Charges/Coding Visit Charges Inpatient E&M: 10431 Init Hosp L2 Objective Data Vital Signs: Vital Signs Temp Pulse Resp BP Pulse Ox O2 Del Method O2 Flow Rate 97.7 F L 72 28 H 166/79 H 99 Nasal Cannula 4 01/06/24 13:34 01/06/24 13:34 01/06/24 13:34 01/06/24 13:34 01/06/24 13:34 01/06/24 13:34 01/06/24 13:34 Oxygen Flow Rate (L/min) 4 Oxygen Delivery Method Nasal Cannula Weight: 187 lb 13.341 oz Body Mass Index (BMI) 32.1 Lab / Micro Data 01/06/24 13:36 01/06/24 13:36 Labs: Laboratory Results - last 24 hr 01/06/24 13:36: WBC 12.1 H, RBC 4.16 L, Hgb 12.5, Hct 38.3, MCV 92.1, MCH 30.0, MCHC 32.6, RDW Std Deviation 45.3 H, RDW Coeff of Nasir 13.5, Plt Count 180, MPV 10.2, Immature Gran % (Auto) 0.300, Neut % (Auto) 66.2, Lymph % (Auto) 18.4 L, [place] % (Auto) 10.9 H, Eos % (Auto) 4.0, Baso % (Auto) 0.2, Absolute Neuts (auto) 8.0 H, Absolute Lymphs (auto) 2.22, Nucleated RBC % 0, PT 16.6 H, INR 1.4, APTT 28.4, Sodium 135 L, Potassium 3.9, Chloride 100, Carbon Dioxide 26.0, Anion Gap 9, BUN 25 H, Creatinine 1.11 H, Est GFR (MDRD) Af Amer 62, Est GFR (MDRD) Non-Af 51 L, BUN/Creatinine Ratio 22.5 H, Glucose 107 H, Calcium 9.5, Total Bilirubin 0.60, AST 20, ALT 18, Alkaline Phosphatase 103, Troponin I High Sens 70268 H*, Total Protein 7.5, Albumin 3.1 L, Globulin 4.4 H, Albumin/Globulin Ratio 0.7 L 01/06/24 13:50: Lactic Acid 1.1 Cardiology Labs/Tests 01/06/24 13:36: WBC 12.1 H, RBC 4.16 L, Hgb 12.5, Hct 38.3, MCV 92.1, MCH 30.0, MCHC 32.6, Plt Count 180, MPV 10.2, Immature Gran % (Auto) 0.300, Neut % (Auto) 66.2, Lymph % (Auto) 18.4 L, [place]atte % (Auto) 10.9 H, Eos % (Auto) 4.0, Baso % (Auto) 0.2, Absolute Neuts (auto) 8.0 H, Nucleated RBC % 0, PT 16.6 H, INR 1.4, APTT 28.4, Sodium 135 L, Potassium 3.9, Chloride 100, Carbon Dioxide 26.0, Anion Gap 9, BUN 25 H, Creatinine 1.11 H, Est GFR (MDRD) Af Amer 62, Est GFR (MDRD) Non-Af 51 L, BUN/Creatinine Ratio 22.5 H, Glucose 107 H, Calcium 9.5, Total Bilirubin 0.60 01/06/24 13:50: Lactic Acid 1.1 Rhythm: EKG: ECHO: Stress Test: Cardiac Cath: PCI: CT Surgery: Holter monitor: EPS: PPM: CXR: Chest CT Scan: Radiography Diagnostic Testing: Radiology Impression Chest X-Ray 01/06/24 14:06 IMPRESSION: No significant interval change. Left apical opacity which may be secondary to tumor or infection. Electronically Signed: Rayne Herbert MD at 14:26 EDT ,
--- NOTE | 2024-01-06 15:17 | HP.PCM.HOS_ITS ---
HPI - General General Date of Admission: 01/06/24 Date of Service: 01/06/24 Chief Complaint: Recent COVID diagnosis with worsening cough and fatigue HPI Narrative ZEINAB HULL, is a 73 F who presented to [facility] ED on 01/06/2024 with worsening cough and fatigue. Patient came to the ED on 12/31 for similar symptoms and was diagnosed with COVID. She has COPD and is chronically on 4 L nasal cannula at baseline. She was on her home level of oxygen and chest x-ray was unremarkable. She did have a WBC count of 16 but her workup was otherwise benign. She notably was on an antibiotic for UTI at that time. Patient expressed to ED physician then that she wanted to be discharged home. Was given a short prednisone taper on discharge. She returned today stating she was not feeling any better. She is more fatigued than previous and had developed some shortness of breath with exertion. In the ED she was found to have a troponin of 19,000. She did have some ischemic changes noted on EKG as well. She was taken urgently to the [facility] with Dr. Werner. Was found to have an 80% lesion in her left circumflex that was stented. Was also found to have apical hypokinesis and Dr. Werner suspected she may have some degree of Takotsubo cardiomyopathy. She was hemodynamically stable post cath. She notably did have a bowel movement with some blood noted shortly after the heart cath. She denies history of GI bleed in this was the most blood she has ever noted with a stool. She remained hemodynamically stable and was moved over to the PCU. I saw her shortly after she arrived in the PCU. She was sitting up comfortably in bed, conversing normally, in no acute distress. She was breathing comfortably on her home 4 L nasal cannula. She had not had any further bowel movement since arriving to the PCU. She denied any chest pain or shortness of breath at rest. Denied any lower extremity swelling or discomfort. Stated she still felt weaker than her normal but similar to this morning. She lives at home with her and generally has a good functional status at baseline. No other acute concerns at this time. [facility], [facility] Medical History Acute dehydration Skin tag History of left breast cancer RIGHT ANKLE FRACTURE REPAIR EXCISION STOMACH TUMOR Parkinson disease Mixed connective tissue disease Polyarthropathy Lupus Hypertension COPD (chronic obstructive pulmonary disease) Asthma Arthritis Pulmonary nodules/lesions, multiple Tobacco use disorder Breast pain Osteopenia Malignant neoplasm of central portion of female breast Low bone density Home Medications ?Medication ?Instructions ?Recorded ?Last Taken ?Type hydrochlorothiazide 12.5 mg capsule 25 mg PO DAILY Heart 03/02/14 06/06/23 08:45 History tramadol 50 mg tablet 50 mg PO DAILY PRN Pain Score 1-10 03/02/14 06/06/23 06:30 History oxybutynin chloride 5 mg tablet 5 - 10 mg PO DAILY pain 01/25/20 06/06/23 08:45 History cholecalciferol (vitamin D3) 50 2,000 unit PO DAILY deficiency 07/27/20 06/06/23 08:45 History mcg (2,000 unit) capsule hydroxychloroquine 200 mg tablet 200 mg PO BIDCM arthritis 07/27/20 06/06/23 08:45 History aspirin 81 mg chewable tablet 81 mg PO DAILYCM Heart #0 tabs 06/06/23 06/06/23 08:45 Rx amlodipine 10 mg tablet 10 mg PO DAILY 30 days #30 tabs 06/17/23 Unknown Rx budesonide 160 mcg-glycopyr 9 2 inh inhalation BID #10.7 grams 07/05/23 Unknown Rx mcg-formot 4.8 mcg/actuation HFA inhaler (Breztri Aerosphere) prednisone 10 mg tablet 10 mg PO DAILY PRN breathing 07/05/23 Unknown History Allergy/AdvReac Type Severity Reaction Status Date / Time bromide salts (bromide) AdvReac Hives Verified 01/06/24 12:35 strawberry AdvReac Hives Verified 01/06/24 12:35 Family History Mother Arthritis Diabetes Hypertension Osteoporosis Father Arthritis Heart disease Sister Arthritis Breast cancer Diabetes Hypertension Son Diabetes Other Alzheimer disease Anemia Hyperlipidemia Thyroid disorder Surgical History History of lung biopsy History of tubal ligation History of lumpectomy Hx of cholecystectomy Social History household members: spouse Smoking Status: Current some day smoker tobacco type: cigarettes alcohol intake: never substance use type: does not use ROS Constitutional Constitutional: Reports fatigue; Denies chills, fever(s) or weakness Eyes Eyes: Denies change in vision Cardiovascular Cardiovascular: Reports dyspnea on exertion; Denies chest pain, edema, lightheadedness, palpitations or rapid heart rate Respiratory/Chest Respiratory/Chest: Reports cough and shortness of breath with exertion; Denies productive cough, shortness of breath at rest or wheezing Gastrointestinal Gastrointestinal: Reports hematochezia and loose stools; Denies abdominal pain, constipation, diarrhea, nausea or vomiting Genitourinary Genitourinary: Denies dysuria Musculoskeletal Musculoskeletal: Denies arthralgias or myalgias Neurologic Neurologic: Denies dizziness, focal weakness or headache(s) Vital Signs Vital Signs Vital Signs: 01/06/24 12:32 01/06/24 12:34 01/06/24 12:51 Temperature 97.4 F L 97.4 F L Temperature Source Temporal Oral Pulse Rate 78 78 Respiratory Rate 18 18 Respiratory Effort Short of Breath Labored Respiratory Pattern Tachypnea Blood Pressure 159/74 H 159/74 H Blood Pressure Mean 102 102 Pulse Ox 100 100 Oxygen Delivery Method Nasal Cannula Nasal Cannula Nasal Cannula Oxygen Flow Rate (L/min) 4 4 4 01/06/24 13:02 01/06/24 13:34 Temperature 97.7 F L Temperature Source Oral Pulse Rate 72 Respiratory Rate 28 H Respiratory Effort Respiratory Pattern Blood Pressure 166/79 H Blood Pressure Mean 108 Pulse Ox 99 Oxygen Delivery Method Nasal Cannula Nasal Cannula Oxygen Flow Rate (L/min) 4 Weight Weight: 85.2 kg Body Mass Index (BMI) 32.1 Physical Exam Const alert, oriented x3 and no apparent distress Constitutional Narrative: Elderly female, obese, mildly fatigued appearing, otherwise sitting up comfortably in bed, conversing normally, in no acute distress. General Appearance: cooperative and comfortable HEENT normocephalic, head/scalp atraumatic, hearing grossly normal bilaterally, nasal mucous membranes and turbinates normal and moist oral mucous membranes Eyes PERRL, EOMs intact bilaterally and conjunctivae normal Neck full ROM Chest inspection of chest normal Resp normal respiratory effort and no use of accessory muscles Resp Narrative: Breathing comfortably on home 4 L nasal cannula at rest. Mild to moderately decreased breath sounds throughout bilaterally but no wheezing or crackles noted. Cardio regular rate, regular rhythm, no murmurs and peripheral pulses 2+ throughout GI normal to inspection, nondistended, normoactive bowel sounds, soft to palpation, non-tender and non-distended Back/Spine normal ROM Extremity normal to inspection, full ROM and no pedal edema Skin no rashes or lesions noted Neuro moves all extremities and no focal motor deficits Speech: speech normal Psych mental status grossly normal Results Lab / Micro Data 01/06/24 18:56 01/06/24 13:36 Labs: Laboratory Results - last 24 hr 01/06/24 13:36: WBC 12.1 H, RBC 4.16 L, Hgb 12.5, Hct 38.3, MCV 92.1, MCH 30.0, MCHC 32.6, RDW Std Deviation 45.3 H, RDW Coeff of Nasir 13.5, Plt Count 180, MPV 10.2, Immature Gran % (Auto) 0.300, Neut % (Auto) 66.2, Lymph % (Auto) 18.4 L, M nir % (Auto) 10.9 H, Eos % (Auto) 4.0, Baso % (Auto) 0.2, Absolute Neuts (auto) 8.0 H, Absolute Lymphs (auto) 2.22, Nucleated RBC % 0, PT 16.6 H, INR 1.4, APTT 28.4, Sodium 135 L, Potassium 3.9, Chloride 100, Carbon Dioxide 26.0, Anion Gap 9, BUN 25 H, Creatinine 1.11 H, Est GFR (MDRD) Af Amer 62, Est GFR (MDRD) Non-Af 51 L, BUN/Creatinine Ratio 22.5 H, Glucose 107 H, Calcium 9.5, Total Bilirubin 0.60, AST 20, ALT 18, Alkaline Phosphatase 103, Troponin I High Sens 13040 H*, Total Protein 7.5, Albumin 3.1 L, Globulin 4.4 H, Albumin/Globulin Ratio 0.7 L 01/06/24 13:50: Lactic Acid 1.1 Imaging Radiology Impression Chest X-Ray 01/06/24 14:06 IMPRESSION: No significant interval change. Left apical opacity which may be secondary to tumor or infection. Electronically Signed: Rayne Herbert MD at 14:26 EDT , Assessment & Plan Assessment/Plan (1) Non-ST elevation PA (NSTEMI): (2) GI bleed: (3) COVID-19: (4) Chronic hypoxic respiratory failure: PLAN: Plan Patient is a 73-year-old female who presented to [facility] ED on 01/06/2024 with worsening fatigue and shortness of breath. 1. NSTEMI ? Admit under inpatient status to PCU. Cardiology following. Troponin 19,000 in ED with ischemic EKG changes. Urgent left heart cath on 01/05 showed an 80% lesion in the LCx s/p drug-eluting stent placement x 1; also showed apical hypokinesis concerning for Takotsubo cardiomyopathy. Echo ordered. Will treat with aspirin, Brilinta, statin, Coreg and lisinopril. Holding home amlodipine and hydrochlorothiazide. Lipid panel, A1c and TSH ordered. Continue cardiac monitoring. 2. GI bleed with mild acute on chronic anemia ? GI consulted. Patient had significant bloody bowel movement shortly post cath. No prior history of GI bleed. Denies recent GERD symptoms. Hemoglobin 12.5 in the ED, dropped to 11.5 on evening of 01/05 after bloody BM. Higher suspicion for lower GI bleed in setting of heavy anticoagulation therapy on admit for NSTEMI but cannot rule out upper GI bleed. Will start IV PPI twice daily for now and keep n.p.o. at midnight. Monitor hemodynamics overnight and follow-up a.m. CBC. Need to continue aspirin and Brilinta but will utilize SCDs for DVT prophylaxis. 3. COVID-19 infection in setting of COPD with chronic hypoxic respiratory failure ? COVID-positive on 12/31. Has been stable on home 4 L nasal cannula since admission and breathing comfortably with no wheezing, no concern for COPD exacerbation. Given concern for GI bleed, will hold on steroid therapy at this time. Contact precautions in place. Continue home inhalers. 4. Mild creatinine elevation ? Creatinine 1.11 on admit, baseline 0.8-0.9. Suspected prerenal due to recent poor p.o. intake in setting of COVID infection. Follow-up a.m. BMP and monitor urine output. 5. Hypertension ? Holding home amlodipine and hydrochlorothiazide and treating with Coreg and lisinopril as noted above. Chronic medical conditions: ? Obesity: BMI 30 on admit. Complicates hospital course, care and prognosis. ? Overactive bladder: Stable. Continue home oxybutynin. ? Chronic pain: Continue home tramadol twice daily as needed. ? Rheumatoid arthritis: Continue home with hydroxychloroquine. DVT prophylaxis: SCDs CODE STATUS: Full code, verified Expected disposition: Home, 2 to 3 days Total clinical time spent by myself addressing the patient's medical issues, reviewing all the data, and collaborating with patient's care team: 75 minutes. Charges/Coding Visit Charges Inpatient E&M: 50464 Init Hosp L3
--- NOTE | 2024-01-06 16:26 | ECHOD_ITS ---
Reason For Study: S/P ID Procedure This was a limited 2D transthoracic echocardiogram. The study was technically difficult. The exam was abbreviated due to the COVID 19 protocol. Exam performed portable in patient room. Left Ventricle Normal LV size. The estimated ejection fraction is 45-50 %. No evidence for diastolic dysfunction. Rocky : Hypokinetic. Right Ventricle Normal RV size. Normal systolic function. Atria The left and right atria are normal. No doppler evidence for ASD. Mitral Valve There is no mitral valve stenosis. No mitral valve insufficiency. Tricuspid Valve There is no tricuspid stenosis. Mild tricuspid valve insufficiency. Pulmonary artery systolic pressure is 40-45 mmHg. Aortic Valve The aortic valve is not well visualized. Great Vessels Normal aortic root. Pericardium/Pleural No pericardial effusion. MMode/2D Measurements & Calculations LVAd ap4: 26.3 cm2 SV(MOD-sp4): 40.4 ml SV(sp4-el): 41.0 ml LVLd ap4: 6.8 cm EDV(MOD-sp4): 82.8 ml EDV(sp4-el): 85.8 ml LVAs ap4: 18.5 cm2 LVLs ap4: 6.5 cm ESV(MOD-sp4): 42.4 ml ESV(sp4-el): 44.8 ml EF(MOD-sp4): 48.8 % EF(sp4-el): 47.8 % Doppler Measurements & Calculations TR max omer: 310.4 cm/sec TR max P.5 mmHg ECHO/Echo Complete Interpretation Summary The estimated ejection fraction is 45-50 %. No evidence for diastolic dysfunction. Rocky : Hypokinetic. Ordering Physician: Philippe José Referring Physician: RON RAJAN Performed By: Naya Gannon RDCS
--- NOTE | 2024-01-06 16:40 | NURSING ---
SPOKE WITH DR. RIVERA ON CONCERN FOR GI BLEED. PHYSICIAN AWARE AND WILL FOLLOW UP WITH THE PATIENT ON THE FLOOR
--- NOTE | 2024-01-06 17:07 | NURSING ---
POST PCI EKG COMPLETED. EKG IS READING ACUTE SD. RESULTS SEN TO DR. GARCIA WHO AGREES WITH READINGS BEING POST PCI NO CONCERN AT THIS TIME PHYSICIAN IS AWARE
--- NOTE | 2024-01-06 17:09 | CRPHASE1_ITS ---
Patient Communication Patient Information Former Patient:: Phase I PHII Cardiac Rehab Discussed with Patient:: Yes Guide to Cardiac Rehab Given to Patient:: Yes Communication to Cardiac Rehab Choice Program [facility] CR PHII:: Communication Given to CR Twine Winder:: Kristen Werner Refer Phase II Cardiac Rehab:: Yes Cardiac Rehabilitation Info Program Information Cardiac Rehabilitation Program Information: Cardiac Rehab The cardiac rehab team at [facility] consists of highly skilled exercise physiologists, nurses, respiratory therapists and physicians working together with you. Our purpose is to help you have a full recovery and achieve the goals you set for yourself. Over the years many of our patients have returned to activities they assumed they would never do again! We can help restore your confidence and motivation to make lifestyle changes that can have a significant impact on your health and quality of life! We can help answer questions and concerns you may have about exercise, lifestyle, medications, diet, stress and anxiety which are common following a hospitalization. WE monitor ECG and vital signs during exercise and discuss your progress with you and report to your physician(s). Cardiac Rehab is proven to help reduce readmissions, improve functional capacity and lower recurrence of problems with your heart. Our Cardiac Rehab program is Certified by the [place] [employer]monary [employer] (AACVPR) and Accredited by the [place] [employer] through our [facility]. You can contact us at . We invite you to call us with your quest ions or to get started in our program. If you have other questions or concerns be sure to ask your physician/provider during your follow-up visit. WE look forward to seeing you!
--- NOTE | 2024-01-06 17:09 | CRPH1.INSTRU ---
General Education Discussed with Patient CAD and cardiac anatomy and function:: Patient communicates acknowledgment Explanation of diagnoses and procedures:: Patient communicates acknowledgment Sign/Symptoms of IN:: Patient communicates acknowledgment Antiplatelet therapy: Patient communicates acknowledgment Proper use of NTG-SL: Patient communicates acknowledgment Emergency procedures and activation of EMS: Patient communicates acknowledgment Compliance of all prescribed medications: Patient communicates acknowledgment Smoking Risk Factors Patient Nicotine/Smoking Risk Factors Are:: Non-smoker Recommendations Recommendations Include:: Second-hand smoke recommendation Response Code Nicotine/Smoking Response Code:: Patient communicates acknowledgment Dyslipidemia Recommendations Recommendations Include:: Lipid profile not available Response Code Dyslipidemia Response Code:: Patient communicates acknowledgment Overweight/Obesity Risk Factors Patient Overweight/Obesity Risk Factors Are:: Obesity - > or = 30 Recommendations Recommendations Include:: Weight loss of 5-10%, Reduced calorie diet and Exercise 5-7 times/week Response Code Overweight/Obesity:: Patient communicates acknowledgment Hypertension Recommendations Recommendations Include:: Maintain BP <130/85 Response Code Hypertension:: Patient communicates acknowledgment Heart Disease Recommendations Recommendations Include:: Educated family members of their risk Response Code Heart Disease Response Code:: Patient communicates acknowledgment Diabetes Risk Factors Patient Diabetes Risk Factors Are:: No documented hx of diabetes Response Code Diabetes:: Patient communicates acknowledgment Metabolic Syndrome Recommendations Recommendations Include:: Does not meet criteria Sedentary Risk Factors Patient Sedentary Risk Factors Are:: Lack of regular exercise Recommendations Recommendations Include:: Aerobic exercise 5-7 times/week for 20-30 minutes continuously, Benefits of regular exercise, Discussed home walking program and Monitored Outpatient Cardiac Rehab Response Code Sedentary Response Code:: Patient communicates acknowledgment Stress Recommendations Recommendations Include:: Identification of stressors, and assessment of coping skills and Stress management techniques Response Code Stress Response Code:: Patient communicates acknowledgment
--- NOTE | 2024-01-06 17:46 | NURSING ---
PATIENT AMBULATED TO BATHROOM. PATIENT INCONTINENT OF URINE. RED IN COLOR. PATIENT HAS KNOWN UTI. PER FAMILY ATX TREATMENT FINISHING UP. WHEN GETTING PATIENT CLEANED UP LUMP WITH HEMATOMA NOTED TO RIGHT UPPER FLANK AND RIGHT UPPER BACK. PER PATIENT NO RECENT FALLS NOTED. PT WAS UNAWARE OF THEM. FAMILY ALSO UNSURE OF THESE INJURIES. PHYSICIAN MADE AWARE
[2024-01-06 19:18] LABS: Hemoglobin 11.5 g/dL (12.0-15.0); Mean Corp Hgb Conc 33.8 g/dL (32-36); Mean Corpuscular Hgb 30.3 pg (27.0-32.0); Mean Corpuscular Volume 89.7 fL (81-99); Mean Platelet Vol. 10.5 fl (6.2-12.0); Platelet Count 192 K/mm3 (150-450); RBC Distribution Width CV 13.5 % (11.6-14.6); RBC Distribution Width SD 43.8 fl (35.1-43.9); Red Blood Count 3.79 M/mm3 (4.2-5.4); White Blood Count 13.9 K/mm3 (4.4-11.0)
[2024-01-06] MEDS: 0.9% Normal Saline (1000mL) 1,000 ML 60 ML IV (20:25)
[2024-01-06] MEDS: 0.9% Saline Lock 10 ML Syringe IV (20:25)
[2024-01-06] MEDS: Budesonide Respules 0.5 MG/2 ML AMPUL.NEB. INHALATION (20:33)
[2024-01-06] MEDS: Ipratropium/Albuterol Sulfate 3 ML AMPUL.NEB INHALATION (20:33)
[2024-01-06 20:39] LABS: Hemoglobin A1c 5.4 % (3.8-5.6)
[2024-01-06 20:51] LABS: Bacteria 0 SEEN /hpf (None Seen); Mucous, Urine 0 SEEN /hpf (<or=2+); Squamous Epithelial Cells - UA 0 SEEN /hpf (5-10)
[2024-01-06 20:54] LABS: Color, Urine Red (Yellow); Glucose, Dipstick Normal (Normal); Ketone-Dipstick 15 mg/dl (Negative); Leukocyte Esterase-Dipstick 100 /ul (Negative); Nitrite-Dipstick Negative (Negative); Occult Blood-Urine 250 /ul (Negative); Protein-Dipstick 100 mg/dl (Negative); Urine Bilirubin Dipstick Negative (Negative); Urine Clarity Turbid (Clear); Urine Urobilinogen Normal (Normal); Urine pH 6.5 (5.0 - 8.0)
[2024-01-06 21:02] LABS: Red Blood Cells-Urine 50-100 SEEN /hpf (0-5); White Blood Cells 25-50 SEEN /hpf (0-5)
[2024-01-06] MEDS: Pantoprazole Sodium 40 MG in 0.9% Normal Saline (100mL MB+) 100 ML 330 MG IV (21:18)
[2024-01-06] MEDS: Carvedilol 6.25 MG Tablet PO (21:53)
[2024-01-06] MEDS: Acetaminophen 325 MG Tablet 650 MG PO (21:53)
[2024-01-06] MEDS: Atorvastatin Calcium 40 MG Tablet PO (21:53)
[2024-01-06] MEDS: TICAGRELOR 90 MG TABLET PO (21:53)
[2024-01-06] MEDS: MELATONIN 3 MG TABLET PO (21:54)
--- NOTE | 2024-01-06 23:10 | CON.PCM.GI_ITS ---
HPI Consult Data Date of Consult: 01/06/24 HPI Narrative HPI Narrative: ZEINAB HULL, is a 73 F who presented to [facility] ED on 01/06/2024 with worsening cough and fatigue. Patient came to the ED on 12/31 for similar symptoms and was diagnosed with COVID. She has COPD and is chronically on 4 L nasal cannula at baseline. She was on her home level of oxygen and chest x-ray was unremarkable. She did have a WBC count of 16 but her workup was otherwise benign. She notably was on an antibiotic for UTI at that time. Patient expressed to ED physician then that she wanted to be discharged home. She was given a short prednisone taper on discharge. She returned today stating she was not feeling any better. She is more fatigued than previous and had developed some shortness of breath with exertion. In the ED she was found to have a troponin of 19,000. She did have some ischemic changes noted on EKG as well. She was taken urgently to the Bed Laborer with Dr. Werner. She was found to have an 80% lesion in her left circumflex that was stented. Was also found to have apical hypokinesis and Dr. Werner suspected she may have some degree of Takotsubo cardiomyopathy. She was hemodynamically stable post cath. She notably did have a bowel movement with some blood noted shortly after the heart cath. She denies history of GI bleed in this was the most blood she has ever noted with a stool. She remained hemodynamically stable and was moved over to the PCU. She denied any chest pain or shortness of breath at rest. Denied any lower extremity swelling or discomfort. Stated she still felt weaker than her normal but similar to this morning. She lives at home with her and generally has a good functional status at baseline. No other acute concerns at this time. I was asked to see her because of GI bleed. [facility] Medical History Acute dehydration Skin tag History of left breast cancer RIGHT ANKLE FRACTURE REPAIR EXCISION STOMACH TUMOR Parkinson disease Mixed connective tissue disease Polyarthropathy Lupus Hypertension COPD (chronic obstructive pulmonary disease) Asthma Arthritis Pulmonary nodules/lesions, multiple Tobacco use disorder Breast pain Osteopenia Malignant neoplasm of central portion of female breast Low bone density Home Medications ?Medication ?Instructions ?Recorded ?Last Taken ?Type hydrochlorothiazide 12.5 mg capsule 25 mg PO DAILY Heart 03/02/14 06/06/23 08:45 History tramadol 50 mg tablet 50 mg PO DAILY PRN Pain Score 1-10 03/02/14 06/06/23 06:30 History oxybutynin chloride 5 mg tablet 5 - 10 mg PO DAILY pain 01/25/20 06/06/23 08:45 History cholecalciferol (vitamin D3) 50 2,000 unit PO DAILY deficiency 07/27/20 06/06/23 08:45 History mcg (2,000 unit) capsule hydroxychloroquine 200 mg tablet 200 mg PO BIDCM arthritis 07/27/20 06/06/23 08:45 History aspirin 81 mg chewable tablet 81 mg PO DAILYCM Heart #0 tabs 06/06/23 06/06/23 08:45 Rx amlodipine 10 mg tablet 10 mg PO DAILY 30 days #30 tabs 06/17/23 Unknown Rx budesonide 160 mcg-glycopyr 9 2 inh inhalation BID #10.7 grams 07/05/23 Unknown Rx mcg-formot 4.8 mcg/actuation HFA inhaler (Breztri Aerosphere) prednisone 10 mg tablet 10 mg PO DAILY PRN breathing 07/05/23 Unknown History Allergy/AdvReac Type Severity Reaction Status Date / Time bromide salts (bromide) AdvReac Hives Verified 01/06/24 12:35 strawberry AdvReac Hives Verified 01/06/24 12:35 Family History Mother Arthritis Diabetes Hypertension Osteoporosis Father Arthritis Heart disease Sister Arthritis Breast cancer Diabetes Hypertension Son Diabetes Other Alzheimer disease Anemia Hyperlipidemia Thyroid disorder Surgical History History of lung biopsy History of tubal ligation History of lumpectomy Hx of cholecystectomy Social History household members: spouse Smoking Status: Current some day smoker tobacco type: cigarettes alcohol intake: never substance use type: does not use ROS Constitutional Constitutional: Reports fatigue; Denies chills, fever(s) or weakness Eyes Eyes: Denies change in vision Cardiovascular Cardiovascular: Reports dyspnea on exertion; Denies chest pain, edema, lightheadedness, palpitations or rapid heart rate Respiratory/Chest Respiratory/Chest: Reports cough and shortness of breath with exertion; Denies productive cough, shortness of breath at rest or wheezing Gastrointestinal Gastrointestinal: Reports hematochezia and loose stools; Denies abdominal pain, constipation, diarrhea, nausea or vomiting Genitourinary Genitourinary: Denies dysuria Musculoskeletal Musculoskeletal: Denies arthralgias or myalgias Neurologic Neurologic: Denies dizziness, focal weakness or headache(s) Physical Exam Const alert, oriented x3 and no apparent distress Constitutional Narrative: Elderly female, obese, mildly fatigued appearing, otherwise sitting up comfortably in bed, conversing normally, in no acute distress. General Appearance: cooperative and comfortable HEENT normocephalic, head/scalp atraumatic, hearing grossly normal bilaterally, nasal mucous membranes and turbinates normal and moist oral mucous membranes Eyes PERRL, EOMs intact bilaterally and conjunctivae normal Neck full ROM Chest inspection of chest normal Resp normal respiratory effort and no use of accessory muscles Resp Narrative: Breathing comfortably on home 4 L nasal cannula at rest. Mild to moderately decreased breath sounds throughout bilaterally but no wheezing or crackles noted. Cardio regular rate, regular rhythm, no murmurs and peripheral pulses 2+ throughout GI normal to inspection, nondistended, normoactive bowel sounds, soft to palpation, non-tender and non-distended Back/Spine normal ROM Extremity normal to inspection, full ROM and no pedal edema Skin no rashes or lesions noted Neuro moves all extremities and no focal motor deficits Speech: speech normal Psych mental status grossly normal Lab / Micro Data 01/07/24 05:21 01/07/24 05:21 Labs: Laboratory Results - last 24 hr 01/06/24 13:33: Hemoglobin A1c 5.4, TSH 1.390 01/06/24 13:36: Sodium 135 L, Potassium 3.9, Chloride 100, Carbon Dioxide 26.0, Anion Gap 9, BUN 25 H, Creatinine 1.11 H, Est GFR (MDRD) Af Amer 62, Est GFR (MDRD) Non-Af 51 L, BUN/Creatinine Ratio 22.5 H, Glucose 107 H, Calcium 9.5, Total Bilirubin 0.60, AST 20, ALT 18, Alkaline Phosphatase 103, Troponin I High Sens 53621 H*, Total Protein 7.5, Albumin 3.1 L, Globulin 4.4 H, A lbumin/Globulin Ratio 0.7 L 01/06/24 13:50: Lactic Acid 1.1 01/06/24 18:56: WBC 13.9 H, RBC 3.79 L, Hgb 11.5 L, Hct 34.0 L, MCV 89.7, MCH 30.3, MCHC 33.8, RDW Std Deviation 43.8, RDW Coeff of Nasir 13.5, Plt Count 192, MPV 10.5 01/06/24 20:44: Urine Color Red, Urine Clarity Turbid, Urine pH 6.5, Ur Specific [place] 1.010, Urine Protein 100 H, Urine Glucose (UA) Normal, Urine Ketones 15 H, Urine Occult Blood 250 H, Urine Nitrite Negative, Urine Bilirubin Negative, Urine Urobilinogen Normal, Ur Leukocyte Esterase 100 H, Urine RBC 50-100 SEEN, Urine WBC 25-50 SEEN, Ur Squamous Epith Cells 0 SEEN, Urine Bacteria 0 SEEN, Urine Mucus 0 SEEN 01/07/24 05:21: WBC 9.6, RBC 3.35 L, Hgb 10.1 L, Hct 31.1 L, MCV 92.8, MCH 30.1, MCHC 32.5, RDW Std Deviation 45.7 H, RDW Coeff of Nasir 13.4, Plt Count 176, MPV 10.1, Immature Gran % (Auto) 0.500, Neut % (Auto) 70.7 H, Lymph % (Auto) 14.5 L, [place] % (Auto) 8.9, Eos % (Auto) 5.2 H, Baso % (Auto) 0.2, Absolute Neuts (auto) 6.8, Absolute Lymphs (auto) 1.39, Nucleated RBC % 0, Sodium 136, Potassium 3.8, Chloride 104, Carbon Dioxide 25.0, Anion Gap 6, BUN 20 H, Creatinine 0.78, Estim Creat Clear Calc 30.55, Est GFR (MDRD) Af Amer 94, Est GFR (MDRD) Non-Af 77, B UN/Creatinine Ratio 25.8 H, Glucose 103, Calcium 9.0, Total Bilirubin 0.70, AST 21, ALT 17, Alkaline Phosphatase 82, Total Protein 6.3 L, Albumin 2.6 L, Globulin 3.7, Albumin/Globulin Ratio 0.7 L, Triglycerides 102, Cholesterol 113, LDL Cholesterol 60, VLDL Cholesterol 20, HDL Cholesterol 33 L Micro: Microbiology 01/06/24 20:44 Urine, Clean Catch Urine Culture - Preliminary GNR lactose 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 Left apical opacity which may be secondary to tumor or infection. Electronically Signed: Rayne Herbert MD at 14:26 EDT , Assessment & Plan Assessment/Plan (1) Non-ST elevation NV (NSTEMI): (2) GI bleed: (3) COVID-19: (4) Chronic hypoxic respiratory failure: PLAN: Plan Patient is a 73-year-old female who presented to [facility] ED on 01/06/2024 with worsening fatigue and shortness of breath. GI bleed with mild acute on chronic anemia ? GI consulted. Patient had significant bloody bowel movement shortly post cath. No prior history of GI bleed. Denies recent GERD symptoms. Hemoglobin 12.5 in the ED, dropped to 10.5 on evening of 01/05 after bloody BM. Higher suspicion for lower GI bleed in setting of heavy anticoagulation therapy on admit for NSTEMI but cannot rule out upper GI bleed. She will need an upper endoscopy and possible colonoscopy to evaluate upper GI tract due to recent history of prednisone, Brilinta, heparin, aspirin. She was explained alternatives, risk, benefits including outstanding bleeding, infection, sepsis, perforation, need emergent and . She have an ASA of 3. Charges/Coding Visit Charges Inpatient E&M: 77673 Init Hosp L3
[2024-01-07] VITALS (15 sets, daily range): BP systolic 95–154; BP diastolic 52–84; PULSE 62–75; RESP 14–22; TEMP 35.8–36.6; O2SAT 98–100; BMI 30.9; BMI 11.7
[2024-01-07 06:28] LABS: Absolute Lymphocyte Count 1.39 X10^3/uL (0.83-4.51); Absolute Neutrophil Count 6.8 X10^3/uL (2.0-7.7); Basophil# 0.02 X10^3/uL; Basophil% 0.2 % (0-1); Eosinophils% 5.2 % (0-5); Hematocrit 31.1 % (37-47); Hemoglobin 10.1 g/dL (12.0-15.0); Lymphocyte # 1.39 X10^3/ul (0.83-4.51); Lymphocyte % 14.5 % (19-41); Mean Corp Hgb Conc 32.5 g/dL (32-36); Mean Corpuscular Hgb 30.1 pg (27.0-32.0); Mean Corpuscular Volume 92.8 fL (81-99); Mean Platelet Vol. 10.1 fl (6.2-12.0); Monocyte# 0.86 X10^3/uL; Monocyte% 8.9 % (0-10); NRBC Flagged by Analyzer 0 % (0-5); Neutrophil # 6.79 X10^3/uL (2.7-7.7); Neutrophil % 70.7 % (47-70); Platelet Count 176 K/mm3 (150-450); RBC Distribution Width CV 13.4 % (11.6-14.6); RBC Distribution Width SD 45.7 fl (35.1-43.9); Red Blood Count 3.35 M/mm3 (4.2-5.4); White Blood Count 9.6 K/mm3 (4.4-11.0)
[2024-01-07 06:41] LABS: ALB/GLOB Ratio 0.7 RATIO (0.9-2.4); AST(SGOT) 21 U/L (15-37); Alanine Aminotransfer ALT/SGPT 17 U/L (13-56); Albumin, Serum 2.6 g/dL (3.2-5.0); Alkaline Phosphatase 82 U/L (45-117); Anion Gap 6 (5-15); BUN 20 mg/dL (7-18); BUN/Creat Ratio 25.8 RATIO (10-20); Chloride 104 mmol/L (98-107); Cholesterol 113 mg/dL (200); Creatinine, Serum 0.78 mg/dL (0.55-1.02); EST Glomerular Filtration Rate 77 mL/min (>60); Est Glom Filt Rate - Afr Amer 94 mL/min (>60); Estimated Creatinine Clearance 30.55 ml/min; Globulin 3.7 g/dL (2.2-4.2); Glucose 103 mg/dL (74-106); High Density Lipoprotein 33 mg/dL; Potassium 3.8 mmol/L (3.5-5.1); Protein, Total 6.3 g/dL (6.4-8.2); Sodium Level 136 mmol/L (136-145); Triglycerides 102 mg/dL; Very Low Density Lipoprotein 20 mg/dL (5-40)
[2024-01-07] MEDS: Budesonide Respules 0.5 MG/2 ML AMPUL.NEB. INHALATION ×2 (07:09→20:30)
[2024-01-07] MEDS: Ipratropium/Albuterol Sulfate 3 ML AMPUL.NEB INHALATION ×3 (07:09→20:30)
[2024-01-07] MEDS: Cholecalciferol (VIT D3) 25 MCG TABLET (1,000 UNITS) 50 MCG PO (09:34)
[2024-01-07] MEDS: Hydroxychloroquine 200 MG Tablet PO ×2 (09:34→16:33)
[2024-01-07] MEDS: Pantoprazole Sodium 40 MG in 0.9% Normal Saline (100mL MB+) 100 ML 330 MG IV ×2 (09:34→23:15)
[2024-01-07] MEDS: Oxybutynin 5 MG Tablet PO (09:35)
[2024-01-07] MEDS: TICAGRELOR 90 MG TABLET PO (09:35)
[2024-01-07] MEDS: Aspirin 81 MG TAB.CHEW PO (09:35)
[2024-01-07] MEDS: Lisinopril 10 MG Tablet PO (09:35)
[2024-01-07] MEDS: Carvedilol 6.25 MG Tablet PO ×2 (09:35→23:14)
[2024-01-07] MEDS: traMADol 50 MG Tablet PO ×2 (09:36→23:28)
--- NOTE | 2024-01-07 10:00 | EKG12_ITS ---
Test Reason : PRE OP Blood Pressure : / mmHG Vent. Rate : 063 BPM Atrial Rate : 063 BPM P-R Int : 146 ms QRS Dur : 072 ms QT Int : 416 ms P-R-T Axes : 045 013 060 degrees QTc Int : 425 ms Normal sinus rhythm Low voltage QRS Septal infarct , age undetermined Abnormal ECG When compared with ECG of 06-JAN-2024 15:03, MANUAL COMPARISON REQUIRED, DATA IS UNCONFIRMED Confirmed by MICHELLE REAGAN, TEMITOPE ([id number]), digital editor RIK SCRUGGS ([id number]) on 01/07/2024 9:45:30 AM Referred By: Confirmed By:TEMITOPE MARTINEZ MD
--- NOTE | 2024-01-07 11:26 | CL.I_ITS ---
Patient Name: ZEINAB HULL Study Date: 01/06/2024 Performing: Leslie Werner MD Ht: 64 inches 162.56 cm : 1950 Wt: 188.1 lbs 85.2 kg Age: 73 Gender: female BSA: 1.9 PROCEDURE(S) PERFORMED DC01-(65490)LHC/COR/LV IC12-(17260/C9600)[place] W/WO PTCA, SINGLE CORONARY ARTERY CLINICAL PROFILE AND CO-MORBIDITIES Indications: ACS <= 24 hrs Heart Failure: None CONCLUSIONS CAD as described. LVEF is 40% with apical hypokinesis. No significant aortic stenosis or mitral regurgitation. Successful drug-eluting stent to proximal circumflex as described RECOMMENDATIONS DESCRIPTION OF PROCEDURE The patient arrived to the procedure lab. The risks and benefits of the procedure as well as a full description of our services here and lack of surgical backup were fully explained to the patient and/or their significant other prior to the catheterization. The Timeout was completed, verifying the correct patient and procedure. The patient's procedural site was prepped and draped in the usual fashion. Local anesthetic was given subcutaneously to right radial region with Lidocaine 2%. Using a modified Seldinger technique, arterial access was obtained via the right radial artery, a 6Fr sheath was inserted.. Left Coronary Artery selective angiography was performed in multiple views using a 5 Fr. JL3.5 catheter. Left Ventriculography was performed in [place]F projection using a 5 Fr. JR 4. LV to AO pullback pressures were then recorded. Right Coronary Artery selective angiography was then performed in multiple views using a 5 Fr. JR 4 catheterThe images were reviewed and options discussed. A decision was then made to proceed with an Intervention, IVUS or other adjunct procedure. EDU 3.5 Guide catheter was inserted and engaged into the LCA. {L1} BMW 0.014 Guide wire was advanced to the Circumflex. CRISTAL FRONTIER 3.0 X 15 Drug Eluting stent was inserted. Drug Eluting stent was advanced across the lesion in the circumflex, proximal. Angiogram performed post stent deployment. The arterial sheath was pulled and a TR Band was applied for hemostasis 17 ML OF AIR CORONARY ANGIOGRAPHY DOMINANCE: Right Dominant LEFT HEART ASSESSMENT Left Ventricular Ejection Fraction: by LV Gram 40 % Apical Hypokinesis - Severe LEFT MAIN: 20 % Stenosis LEFT ANTERIOR DESCENDING ARTERY: Mild luminal irregularities CIRCUMFLEX ARTERY: PROX CIRC: 80 % Stenosis RIGHT CORONARY ARTERY: Mild luminal irregularities VALVE FINDINGS: No Aortic Valve Stenosis No Mitral Insufficiency INTERVENTION INFORMATION LESION SITE: Circumflex (Proximal) Lesion Complexity: High/C, chronic total occlusion: No, lesion at bifurcation: No, thrombus present: No, lesion length: 12 mm, culprit lesion: Yes, Previously treated lesion: No Pre Stenosis: 80 % Pre intervention NATHAN flow: 3 PROCEDURE: Drug Eluting Stent Post Stenosis: 0 % Post intervention NATHAN flow: 3 Lesion Devices: Medtronic 6 Fr EBU3.5 100cm Guide Catheter Acevedo .014 190cm BMW [place] Straight Medtronic 3.0 x 15 CRISTAL FRONTIER [place] COMPLICATIONS No Complications PROCEDURE MEDICATIONS Fentanyl 50 mcg IV Versed 1 mg IV Oxygen: 2 L/min via nasal cannula Heparin given IA 01/06/2024 15:28:51 Verapamil 2.5mg, Ntg 100mcgs, 3000 units of Heparin given IA 01/06/2024 15:28:51 SUMMARY OF HEMODYNAMIC DATA Time AIR REST ECG 15:14:34 AO 130/59 (89) SA 15:33:29 AO 134/63 (92) 15:35:32 LV 160/1, 18 15:38:44 LV 155/0, 18 15:38:50 LV 143/11, 19 15:39:16 LV 143/13, 19 15:39:22 LVp 143/14, 18 15:39:36 AOp 144/14 (65) 15:39:41 AO 142/64 (97) 15:41:01 AO 175/71 (112) 15:50:35 Signed By Leslie Werner MD On 01/07/2024 11:25:05 Leslie Werner MD
--- NOTE | 2024-01-07 13:01 | CASEMGMT ---
GUY MAURO Assessment: Face to Face with pt for initial transition planning/care coordination assessment. GUY MAURO introduced self and role at [facility], pt voices understanding and consents to assessment. Pt is A&O x4 and answers all questions appropriately at this time. Pt sitting up in bed in no distress. Granddaughter sitting at bedside, pt agreeable to discussing plan of care with family present. Care providers, pharmacy, and demographics verified/updated. Strata: 3 Admitting Dx: NSTEMI PCP: Gavin Specialists: Denies Preferred Pharmacy: [facility] Insurance: [employer] Prescription Benefit: yes LNOK: , Eliezer; Daughter, Helen Living Arrangements: Pt lives with in a 1 story home with no stairs to enter. ADLs: Pt reports I with ADLs and IADLs. Transportation: Pt drives self and denies concerns with transportation. DME: Stair lift, scooter, shower bench, cane, walker, O2 concentrator and portable tanks through [employer]. HHC/SNF: Pt states previously went to TCU. Pt states no concerns with going home at time of dc. Pt refused HHC, states family comes to take care of her and denies any needs at time of DC. Pt states no further concerns/needs. CM to follow. Advised pt to ask CM if any further question/concerns/needs arise, voices understanding. Pt Goal: Home Plan: Home, follow for O2 changes. Izaiah TOVAR CM
[2024-01-07] MEDS: 0.9% Normal Saline (500mL Bag) 500 ML 15 ML IV (13:58)
--- NOTE | 2024-01-07 14:15 | IMM_PTH ---
PATIENT: ZEINAB HULL LOC: [facility] U#:[id number] AGE/SX: 73/F ROOM: [facility] RE01/06/[address]: Dr. Darwin Gunderson MD : 1950 BED: 1 DIS: 01/08/2024 SPEC #: [id number] RECD: 01/08/24 08:24 STATUS: JIN REQ #: [id number] IAN: 01/07/24 14:[address]: Alfredo Lozano DEPT: IMMUNOHISTOCHEMISTRY RECD BY: Aniket Doran ENTERED: 01/08/24 08:24 SP TYPE: IMMUNO OTHR DR: DO Dr. Darwin Silva MD Dr. Holly Wyneski, MD Dr. Mark Tereletsky, DO Carolyn Graham, NP-Hemanth Tissues: Gastric mucous membrane Procedures: H Pylori (initial) PHYSICIAN & INSTITUTION [place] [id number] SPECIMEN INFORMATION: Tissue Source: Gastric body biopsy Clinical Info: GI bleed Specimen Number: [id number] CPT code: 70162 METHODOLOGY: Deparaffinized sections of prefer/formalin-fixed tissue or PAP/DQ stained slides are incubated with monoclonal/polyclonal antibodies/oligonucleotide probes. Localization is made via biotin free immunoperoxidase method. Appropriate controls are performed and reacted as expected. Results on target cell population are indicated in the following table: RESULTS: ANTIBODY / CLONE RESULT H Pylori (polyclonal) negative These tests were developed and their performance characteristics determined by [facility]. They may not have been cleared or approved by the U.S. Food and Drug Administration. The FDA has determined that such clearance or approval is not necessary. The above immunohistochemical/dualISH markers are ordered and reviewed by the Pathologist. INTERPRETATION: Gastric body, biopsy: Negative for Helicobacter pylori organisms. 01/09/2024
--- NOTE | 2024-01-07 14:15 | EGD_PTH ---
PATIENT: ZEINAB HULL LOC: [facility] U#:[id number] AGE/SX: 73/F ROOM: [facility] RE01/06/[address]: Dr. Darwin Gunderson MD : 1950 BED: 1 DIS: 01/08/2024 SPEC #: [id number] RECD: 01/07/24 18:14 STATUS: JIN RELaura #: [id number] IAN: 01/07/24 14:[address]: Alfredo Lozano DEPT: SURGICAL PATHOLOGY RECD BY: Kimberlee Sahu ENTERED: 01/08/24 10:04 SP TYPE: EGD BIOPSY OT DR: DO Dr. Darwin Silva MD Dr. Holly Wyneski, MD Dr. Mark Tereletsky, DO Haritha Alonso, EBONY-C Tissues: Gastric mucous membrane Procedures: Surgery Specimen Level IV HEADER OPERATION: EGD with biopsies PRE-OP DIAGNOSIS: GI bleed TISSUE SUBMITTED: Gastric body ulcer biopsy MICROSCOPIC DIAGNOSIS Gastric body ulcer, biopsy: Fragments of gastric mucosa with focal ulceration, fibrinous exudation and mild acute and chronic inflammation. 01/09/2024 COMMENT The results of immunohistochemistry for Helicobacter pylori will be reported separately ([id number]). MICROSCOPIC DESCRIPTION Slides are reviewed. GROSS DESCRIPTION Received in fixative is one container labeled with the patient's name and designated Gastric body ulcer biopsy. The specimen consists of multiple irregular fragments of light martinez soft tissue that in aggregate measure 1.0 x 0.3 x 0.1 cm. The specimen is totally submitted in one cassette. 01/08/2024 TC:2 CPT:35582
--- NOTE | 2024-01-07 14:43 | PCM.PRE.AN2 ---
ASA Classification* ASA Classification ASA Classification: 4 and E Assessment & Plan Anesthesia* Anesthesia Assessment Anesthesia Assessment: Discussed sedation and/or anesthesia options, risks, benefits, and alternatives with patient/parents/legal guardian/POA. Questions invited. The patient/parents/legal guardian/POA seems to understand and agrees to proceed with anesthesia plan. Reviewed the physical assessment, medical history, allergy history and patient home medications list prior to surgery/procedure/anesthetic and documented any changes. Performed airway and anesthesia risk assessments. Anesthesia Type Anesthesia Type: MAC History Source History Obtained from:: Patient and Chart Anesthesia Focused Assessment* Temperature: 97.5 F Pulse Rate: 62 Blood Pressure: 147/71 Respiratory Rate: 18 Pulse Ox: 100 Oxygen Delivery Method: Nasal Cannula Airway Assessment Mouth opens: >3 cm Mallampati Score: III Teeth Condition: Missing (Patient is edentulous) Neck Range of motion (ROM): Limited ROM (Somewhat decreased extension) Focused Labs Anesthesia Preop lab: CBC WBC 9.6 K/mm3 (4.4-11.0) 01/07/24 05:21 RBC 3.35 M/mm3 (4.2-5.4) L 01/07/24 05:21 Hgb 10.1 g/dL (12.0-15.0) L 01/07/24 05:21 Hct 31.1 % (37-47) L 01/07/24 05:21 Plt Count 176 K/mm3 (150-450) 01/07/24 05:21 CHEMISTRY Potassium 3.8 mmol/L (3.5-5.1) 01/07/24 05:21 Sodium 136 mmol/L (136-145) 01/07/24 05:21 Magnesium 2.1 mg/dL (1.6-2.6) 05/30/23 03:02 BUN 20 mg/dL (7-18) H 01/07/24 05:21 Creatinine 0.78 mg/dL (0.55-1.02) 01/07/24 05:21 Glucose 103 mg/dL (74-106) 01/07/24 05:21 TSH 1.390 uIU/mL (0.358-3.740) 01/06/24 13:33 COAG PT 16.6 SECONDS (11.7-14.9) H 01/06/24 13:36 Pre-Assessment Diagnosis/Proposed Procedure Planned Operative Procedure(s): Esophagogastroduodenoscopy with possible biopsies and/or cautery Anesthesia History Anesthesia History - net application support specialist: Anesthesia History - net application support specialist Hx Hospitalization No 12/23/23 09:25 Any Problems With Anesthesia No 01/07/24 03:47 Cholinesterase deficiency No 01/07/24 03:47 You/Your Family Experience No 01/07/24 03:47 fever (hyperthermia) with Relationship Recent Exposure to Contagious Yes: Covid 01/07/24 03:47 Disease Does patient have nerve No 01/07/24 03:47 stimulator Patient instructed to have No 01/07/24 03:47 device shut off --Does patient have Pacemaker No 01/07/24 12:53 or ICD? When Was Last Pacemaker Check QUESTION #4 FULL TEXT: You/Your Family Experience fever (hyperthermia) with Anesthesia Any additional information?: No Last Oral Intake Last Oral intake: Last Oral Intake NPO since 00:00 01/07/24 12:53 Meds taken in AM with sips of Yes 01/07/24 12:53 water? Meds patient instructed to See MAR 01/07/24 12:53 take am of surgery Any additional information?: No PONV PONV - net application support specialist: PONV - net application support specialist Female HX of Motion Sickness HX of N/V After Surgery Non-Smoker Duration of Surgery greater than 60 minutes Number of Risk Factors PONV Score Height & Weight Height & Weight: Anesthesia: Height & Weight Height 5 ft 4 in 01/07/24 12:53 Weight: 30.9 kg 01/07/24 12:53 Body Mass Index (BMI) 11.7 01/07/24 12:53 Respiratory Assessment Respiratory Assessment - net application support specialist: Respiratory Tract Infection Hx - net application support specialist Hx Respiratory Tract Infection Yes: Covid 01/07/24 03:47 STOP Sleep Apnea STOP Sleep Apnea - net application support specialist: STOP Sleep Apnea - net application support specialist Hx Hypertension Yes 01/06/24 19:00 Hx Sleep Apnea No 01/06/24 19:00 CPAP No 12/23/23 09:25 BIPAP No 12/23/23 09:25 Do you snore loudly (louder No 01/06/24 19:00 than talking or can be heard Do you often feel tired/ No 01/06/24 19:00 fatigued/ sleepy during daytime? Has anyone observed you stop No 01/06/24 19:00 breathing during sleep? STOP Results Negative 01/06/24 19:00 QUESTION #5 FULL TEXT : Do you snore loudly (louder than talking or can be heard through closed doors)? 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 Specify any problems Hx of Preganancy in last 3 No 01/06/24 19:00 Months Nurse Filling Out Transfusion [email or web address] 01/06/24 19:00 & Questions: Date: 01/06/24 01/06/24 19:00 Time: 19:01 01/06/24 19:00 Patient unable to answer at this time (ie. confused, unrespo /Reproduction History /Reproductive History - net application support specialist: /Reproductive Hx- net application support specialist Hx Now No 01/07/24 03:47 Gestational Age (in weeks): EDC: Hx Hx Para Hx Section SAB Active Medications Active Medications: Current Medications Generic Name Dose Route Start Last Admin Trade Name Freq PRN Reason Stop Dose Admin Acetaminophen 650 mg 01/06/24 18:18 01/06/24 21:53 Acetaminophen 325 Mg Tablet PO 650 mg Q6H PRN PRN Administration Pain 1-10 Or Fever>100.7 Albuterol/Ipratropium 3 ml 01/06/24 18:50 01/07/24 13:18 Ipratropium/Albuterol Sulfate 3 Ml Ampul.Neb INHALATION 3 ml Q6HWA.RT KERRI Administration Aspirin 81 mg 10/01/24 08:00 01/07/24 09:35 Aspirin 81 Mg Tab.Chew PO 81 mg DAILYCM KERRI Administration Atorvastatin Calcium 40 mg 01/06/24 22:00 01/06/24 21:53 Atorvastatin Calcium 40 Mg Tablet PO 40 mg QHS KERRI Administration Atropine Sulfate 0.5 mg 01/06/24 16:12 Atropine Sulfate 1 Mg/10 Ml Syringe IV UD PRN HR <50 bpm Budesonide 0.5 mg 01/06/24 18:50 01/07/24 07:09 Budesonide Respules 0.5 Mg/2 Ml Ampul.Neb. INHALATION 0.5 mg Q12H.RT KERRI Administration Carvedilol 6.25 mg 01/07/24 10:00 01/07/24 09:35 Carvedilol 6.25 Mg Tablet PO 6.25 mg BID KERRI Administration Protocol Cholecalciferol 50 mcg 01/07/24 10:00 01/07/24 09:34 Cholecalciferol (Vit D3) 25 Mcg Tablet (1,000 Units) PO 50 mcg DAILY KERRI Administration Hydralazine HCl 10 mg 01/06/24 19:29 Hydralazine 20 Mg/Ml Vial IV Q4H PRN PRN SBP GREATER THAN 170 Protocol Hydroxychloroquine Sulfate 200 mg 01/07/24 08:00 01/07/24 09:34 Hydroxychloroquine 200 Mg Tablet PO 200 mg BIDCM KERRI Administration Pantoprazole Sodium 40 mg/ 110 mls @ 330 mls/hr 01/06/24 19:55 01/07/24 09:54 Sodium Chloride IV Infused Q12 KERRI Infusion Sodium Chloride 500 mls @ 0 mls/hr 01/07/24 14:00 01/07/24 13:58 IV 15 mls/hr .Q0M KERRI Administration KVO Lisinopril 10 mg 01/07/24 10:00 01/07/24 09:35 Lisinopril 10 Mg Tablet PO 10 mg DAILY KERRI Administration Protocol Melatonin 3 mg 01/06/24 18:18 01/06/24 21:54 Melatonin 3 Mg Tablet PO 3 mg QHS PRN PRN Administration INSOMNIA Ondansetron HCl 4 mg 01/06/24 18:18 Ondansetron 4 Mg/2 Ml Vial IV Q8H PRN PRN NAUSEA/VOMITING Oxybutynin Chloride 5 mg 01/07/24 10:00 01/07/24 09:35 Oxybutynin 5 Mg Tablet PO 5 mg DAILY KERRI Administration Sodium Chloride 500 ml 01/06/24 16:12 0.9% Normal Saline 500 Ml Iv.Soln. IV BOLUS PRN VASO-VAGAL PROTOCOL Sodium Chloride 10 - 40 ml 01/06/24 18:51 01/06/24 20:25 0.9% Saline Lock 10 Ml Syringe IV 10 ml UD PRN Administration SALINE FLUSH Ticagrelor 90 mg 01/06/24 22:00 01/07/24 09:35 Ticagrelor 90 Mg Tablet PO 90 mg BID KERRI Administration Tramadol HCl 50 mg 01/06/24 18:18 01/07/24 09:36 Tramadol 50 Mg Tablet PO 50 mg BID PRN PRN Administration Pain Score 6-10 [facility] Medical History Acute dehydration Skin tag History of left breast cancer RIGHT ANKLE FRACTURE REPAIR EXCISION STOMACH TUMOR Parkinson disease Mixed connective tissue disease Polyarthropathy Lupus Hypertension COPD (chronic obstructive pulmonary disease) Asthma Arthritis Pulmonary nodules/lesions, multiple Tobacco use disorder Breast pain Osteopenia Malignant neoplasm of central portion of female breast Low bone density Home Medications ?Medication ?Instructions ?Recorded ?Last Taken ?Type hydrochlorothiazide 12.5 mg capsule 25 mg PO DAILY Heart 03/02/14 06/06/23 08:45 History tramadol 50 mg tablet 50 mg PO DAILY PRN Pain Score 1-10 03/02/14 06/06/23 06:30 History oxybutynin chloride 5 mg tablet 5 - 10 mg PO DAILY pain 01/25/20 06/06/23 08:45 History cholecalciferol (vitamin D3) 50 2,000 unit PO DAILY deficiency 07/27/20 06/06/23 08:45 History mcg (2,000 unit) capsule hydroxychloroquine 200 mg tablet 200 mg PO BIDCM arthritis 07/27/20 06/06/23 08:45 History aspirin 81 mg chewable tablet 81 mg PO DAILYCM Heart #0 tabs 06/06/23 06/06/23 08:45 Rx amlodipine 10 mg tablet 10 mg PO DAILY 30 days #30 tabs 06/17/23 Unknown Rx budesonide 160 mcg-glycopyr 9 2 inh inhalation BID #10.7 grams 07/05/23 Unknown Rx mcg-formot 4.8 mcg/actuation HFA inhaler (Breztri Aerosphere) prednisone 10 mg tablet 10 mg PO DAILY PRN breathing 07/05/23 Unknown History Allergy/AdvReac Type Severity Reaction Status Date / Time bromide salts (bromide) AdvReac Hives Verified 01/06/24 12:35 strawberry AdvReac Hives Verified 01/06/24 12:35 Family History Mother Arthritis Diabetes Hypertension Osteoporosis Father Arthritis Heart disease Sister Arthritis Breast cancer Diabetes Hypertension Son Diabetes Other Alzheimer disease Anemia Hyperlipidemia Thyroid disorder Surgical History History of lung biopsy History of tubal ligation History of lumpectomy Hx of cholecystectomy Social History household members: spouse Smoking Status: Current some day smoker tobacco type: cigarettes alcohol intake: never substance use type: does not use Review of Systems (Anesthesia) ROS Narrative System reviewed and no additional complaints, except as documented.
--- NOTE | 2024-01-07 15:32 | OP.EGD_ITS ---
Patient Name: Tish Malave Procedure Date: 01/07/2024 2:53 PM Date of : 1950 Age: 73 Procedure: Upper GI endoscopy Indications: Iron deficiency anemia, Hematochezia Providers: Alfredo Lozano DO Medicines: Monitored Anesthesia Care Patient Profile: This is a 73 year old female. Refer to note in patient chart for documentation of history and physical. Patient has symptoms of acute epigastric abdominal pain. Complications: No immediate complications. Procedure: Pre-Anesthesia Assessment: - Prior to the procedure, a History and Physical was performed, and patient medications and allergies were reviewed. The patient is competent. The risks and benefits of the procedure and the sedation options and risks were discussed with the patient. All questions were answered and informed consent was obtained. Patient identification and proposed procedure were verified by the physician in the pre-procedure area. Mental Status Examination: alert and oriented. Airway Examination: normal oropharyngeal airway and neck mobility. Respiratory Examination: clear to auscultation. CV Examination: normal. Prophylactic Antibiotics: The patient does not require prophylactic antibiotics. Prior Anticoagulants: The patient has taken no anticoagulant or antiplatelet agents. ASA Grade Assessment: III - A patient with severe systemic disease. After reviewing the risks and benefits, the patient was deemed in satisfactory condition to undergo the procedure. The anesthesia plan was to use monitored anesthesia care (MAC). Immediately prior to administration of medications, the patient was re-assessed for adequacy to receive sedatives. The heart rate, respiratory rate, oxygen saturations, blood pressure, adequacy of pulmonary ventilation, and response to care were monitored throughout the procedure. The physical status of the patient was re-assessed after the procedure. After obtaining informed consent, the endoscope was passed under direct vision. Throughout the procedure, the patient's blood pressure, pulse, and oxygen saturations were monitored continuously. The Endoscope was introduced through the mouth, and advanced to the second part of duodenum. The upper GI endoscopy was accomplished without difficulty. The patient tolerated the procedure well. Scope In: 3:21:13 PM Scope Out: 3:25:27 PM Total Procedure Duration Time 0 hours 4 minutes 14 seconds Findings: The examined esophagus was normal. Many non-bleeding cratered gastric ulcers with no stigmata of bleeding were found in the cardia, in the gastric body and in the gastric antrum. The largest lesion was 7 mm in largest dimension. Biopsies were taken with a cold forceps for histology. Verification of patient identification for the specimen was done. Estimated blood loss was minimal. Biopsies were taken with a cold forceps for Helicobacter pylori testing. Verification of patient identification for the specimen was done. Estimated blood loss was minimal. Many non-bleeding superficial duodenal ulcers were found in the duodenal bulb, in the first portion of the duodenum and in the second portion of the duodenum. The largest lesion was 2 mm in largest dimension. Impression: - Normal esophagus. - Non-bleeding gastric ulcers with no stigmata of bleeding. Biopsied. - Non-bleeding duodenal ulcers. Recommendation: - Return patient to [facility] for [facility] care. - Resume previous diet. - Continue present medications. - Await pathology results. - Use Protonix (pantoprazole) 40 mg PO BID. - Use sucralfate tablets 1 gram PO QID for 4 weeks. Procedure Code(s): --- Professional --- 32329, Esophagogastroduodenoscopy, flexible, transoral; with biopsy, single or multiple CPT copyright 2021 [employer]. All rights reserved. The codes documented in this report are preliminary and upon video manager review may be revised to meet current compliance requirements. Alrfedo Lozano DO 01/07/2024 3:32:11 PM This report has been signed electronically. Number of Addenda: 0 Note Initiated On: 01/07/2024 2:53 PM
--- NOTE | 2024-01-07 15:33 | OP.CCLET_ITS ---
01/07/2024 Greta Boyle Re : Upper GI endoscopy procedure for Tish Griggslazara Alonso This procedure was performed on Sunday, January 07, 2024. My impressions and recommendations are as follows: Impressions : - Normal esophagus. - Non-bleeding gastric ulcers with no stigmata of bleeding. Biopsied. - Non-bleeding duodenal ulcers. Recommendations : - Return patient to [facility] for ongoing care. - Resume previous diet. - Continue present medications. - Await pathology results. - Use Protonix (pantoprazole) 40 mg PO BID. - Use sucralfate tablets 1 gram PO QID for 4 weeks. My findings are described in the full procedure note, which is enclosed. If I can be of further assistance, please feel free to contact me at . Sincerely, Alfredo Lozano, 01/07/2024 3:32:11 PM This report has been signed electronically.
--- NOTE | 2024-01-07 15:40 | PCM.POST.ANE ---
Anesthesia: Postop Eval I Current Vital Signs Temperature: 97 F Pulse Rate: 64 Blood Pressure: 96/56 Respiratory Rate: 14 Pulse Ox: 100 Oxygen Delivery Method: Nasal Cannula Oxygen Flow Rate (L/min): 4 Assessment Airway patent: Yes Spontaneous unlabored respirations: Yes Mental status: Asleep nausea: No Vomiting: No Anesthesia Complication: No Fluid Hydration Crystalloid volume administer (ml): 100 Total IV fluid infused: 100 Progress Note Anesthesia document: Postop Eval 1 completed: Yes
--- NOTE | 2024-01-07 16:40 | DCINST_ITS ---
Discharge Instructions Diet Discharge Diet: No restrictions Activity Discharge Activity: Return to Normal Activity Weight Bearing Status: Full weight bearing Follow Up Care Test Results: Test results from this visit will be discussed in further detail at your follow- up appointment, if applicable. Discharge Plan Admission Admit Date/Time: 01/06/24 16:22 Primary Reason for Your Visit: Non-STEMI, anemia secondary to gastric and duodenal ulcers Attending Provider: Jermaine Jaramillo Primary Care Provider: Haritha Alonso Consulting Providers: Philippe José Discharge Orders/Prescriptions Prescriptions: New atorvastatin 40 mg Tablet 40 mg PO QHS Qty: 30 0RF carvedilol 6.25 mg Tablet 6.25 mg PO BID Qty: 60 0RF lisinopril 10 mg Tablet 10 mg PO DAILY Qty: 30 0RF clopidogrel [Plavix] 75 mg tablet 75 mg PO DAILY Qty: 30 0RF Rx Instructions: start on 01/07/24 pantoprazole [Protonix] 40 mg tablet,delayed release (DR/EC) 40 mg PO BID Qty: 60 0RF Continued prednisone 10 mg tablet 10 mg PO DAILY PRN (Reason: breathing) Rx Instructions: 4 tabs daily for 3 days, then 3 tabs daily for 3 days, then 2 tabs daily for 3 days, then 1 tab daily for 3 days Breztri Aerosphere 160-9-4.8 mcg/actuation HFA aerosol inhaler 2 inh inhalation BID Qty: 10.7 6RF tramadol 50 MG tablet 50 mg PO DAILY PRN (Reason: Pain Score 1-10) oxybutynin chloride 5 MG tablet 5 - 10 mg PO DAILY hydroxychloroquine 200 MG tablet 200 mg PO BIDCM cholecalciferol (vitamin D3) 2,000 UNIT capsule 2,000 unit PO DAILY aspirin 81 mg Tablet,Chewable 81 mg PO DAILYCM Qty: 0 0RF Discontinued hydrochlorothiazide 12.5 MG capsule 25 mg PO DAILY amlodipine 10 mg Tablet 10 mg PO DAILY 30 Days Qty: 30 0RF Referrals / Follow Up: Haritha Alonso NP-C [Primary Care Provider] - Within 2 Weeks Disposition Disposition (needs filled in before D/C Order can be placed): Home, Self Care
--- NOTE | 2024-01-07 16:49 | PCM.POSTANE2 ---
Anesthesia Postop Eval I Sum Postop Eval Completion status Anesthesia document: Postop Eval 1 completed: Yes Anesthesia Postop Eval I Summary Anesthesia Postop Eval I Summary: Anesthesia Postop Eval I: Assessment Summary Airway patent Yes 01/07/24 15:42 [email or web address] Spontaneous unlabored Yes 01/07/24 15:42 [email or web address] respirations Mental status Asleep 01/07/24 15:42 [email or web address] nausea No 01/07/24 15:42 [email or web address] Vomiting No 01/07/24 15:42 [email or web address] Anesthesia Postop Eval I: Fluid Summary Crystalloid volume administer 100 01/07/24 15:42 [email or web address] (ml) Colloids volume administered ( ml) Blood Product volume administered (ml) Total IV fluid infused 100 01/07/24 15:42 [email or web address] Anesthesia Postop Eval I: Summary Notes Anesthesia Complication No 01/07/24 15:42 [email or web address] Anesthesia Complication Comment: Post-operative progress note Anesthesia: Postop Eval II Evaluation Mental status: Awake and Calm Pain Level: 0 nausea: No Vomiting: No Progress Note Post-operative progress note: No change in O2 requirement Complications Anesthesia Complication: No
--- NOTE | 2024-01-07 16:50 | PCM.DC.SUM ---
Providers Date of Admission: 01/06/24 Date of Discharge: 01/07/24 Primary Care Physician: VALENTE Boyle Consultations 01/06/24 19:53 Consult: Gastroenterology Routine Consulting Provider: David [facility] Reason for Consult: GI bleed EMERGENT Consult: No MD Notified: Yes Date Notified: 01/07/24 Time Notified: 06:05 Method of Notification: Text Reason For Visit: NSTEMI Diagnosis Discharge Diagnosis (1) Non-ST elevation AR (NSTEMI): Status: Acute Code(s): I21.4 - Non-ST elevation (NSTEMI) myocardial infarction (2) GI bleed: Status: Acute Code(s): K92.2 - Gastrointestinal hemorrhage, unspecified (3) COVID-19: Status: Acute Code(s): U07.1 - COVID-19 (4) Chronic hypoxic respiratory failure: Status: Chronic Code(s): J96.11 - Chronic respiratory failure with hypoxia Medications at Discharge Home Medications tramadol 50 mg tablet 50 mg PO DAILY PRN Pain Score 1-10 03/02/14 oxybutynin chloride 5 mg tablet 5 - 10 mg PO DAILY pain 01/25/20 cholecalciferol (vitamin D3) 50 mcg (2,000 unit) capsule 2,000 unit PO DAILY deficiency 07/27/20 hydroxychloroquine 200 mg tablet 200 mg PO BIDCM arthritis 07/27/20 aspirin 81 mg chewable tablet 81 mg PO DAILYCM Heart #0 tabs 06/06/23 budesonide 160 mcg-glycopyr 9 mcg-formot 4.8 mcg/actuation HFA inhaler (Breztri Aerosphere) 2 inh inhalation BID #10.7 grams 07/05/23 prednisone 10 mg tablet 10 mg PO DAILY PRN breathing 07/05/23 atorvastatin 40 mg tablet 40 mg PO QHS #30 tabs 01/07/24 carvedilol 6.25 mg tablet 6.25 mg PO BID #60 tabs 01/07/24 clopidogrel 75 mg tablet (Plavix) 75 mg PO DAILY #30 tabs 01/07/24 lisinopril 10 mg tablet 10 mg PO DAILY #30 tabs 01/07/24 pantoprazole 40 mg tablet,delayed release (Protonix) 40 mg PO BID #60 tabs 01/07/24 Weight / BMI Weight Weight: 30.9 kg Body Mass Index (BMI) 11.7 ABG / Lab / Microbiology Data 01/07/24 05:21 01/07/24 05:21 Laboratory: Laboratory Results - last 24 hr 01/06/24 13:33: Hemoglobin A1c 5.4, TSH 1.390 01/06/24 18:56: WBC 13.9 H, RBC 3.79 L, Hgb 11.5 L, Hct 34.0 L, MCV 89.7, MCH 30.3, MCHC 33.8, RDW Std Deviation 43.8, RDW Coeff of Nasir 13.5, Plt Count 192, MPV 10.5 01/06/24 20:44: Urine Color Red, Urine Clarity Turbid, Urine pH 6.5, Ur Specific [place] 1.010, Urine Protein 100 H, Urine Glucose (UA) Normal, Urine Ketones 15 H, Urine Occult Blood 250 H, Urine Nitrite Negative, Urine Bilirubin Negative, Urine Urobilinogen Normal, Ur Leukocyte Esterase 100 H, Urine RBC 50-100 SEEN, Urine WBC 25-50 SEEN, Ur Squamous Epith Cells 0 SEEN, Urine Bacteria 0 SEEN, Urine Mucus 0 SEEN 01/07/24 05:21: WBC 9.6, RBC 3.35 L, Hgb 10.1 L, Hct 31.1 L, MCV 92.8, MCH 30.1, MCHC 32.5, RDW Std Deviation 45.7 H, RDW Coeff of Nasir 13.4, Plt Count 176, MPV 10.1, Immature Gran % (Auto) 0.500, Neut % (Auto) 70.7 H, Lymph % (Auto) 14.5 L, [place] % (Auto) 8.9, Eos % (Auto) 5.2 H, Baso % (Auto) 0.2, Absolute Neuts (auto) 6.8, Absolute Lymphs (auto) 1.39, Nucleated RBC % 0, Sodium 136, Potassium 3.8, Chloride 104, Carbon Dioxide 25.0, Anion Gap 6, BUN 20 H, Creatinine 0.78, Estim Creat Clear Calc 30.55, Est GFR (MDRD) Af Amer 94, Est GFR (MDRD) Non-Af 77, BUN/Creatinine Ratio 25.8 H, Glucose 103, Calcium 9.0, Total Bilirubin 0.70, AST 21, ALT 17, Alkaline Phosphatase 82, Total Protein 6.3 L, Albumin 2.6 L, Globulin 3.7, Albumin/Globulin Ratio 0.7 L, Triglycerides 102, Cholesterol 113, LDL Cholesterol 60, VLDL Cholesterol 20, HDL Cholesterol 33 L Microbiology: Microbiology 01/06/24 20:44 Urine, Clean Catch Urine Culture - Preliminary GNR lactose senior research associate Gram negative stacey D/C Instructions Discharge Diet: No restrictions Weight Bearing Status: Full weight bearing Meaningful Use Info Ischemic Stroke Statin Dosing Therapy Reference: STATIN DOSE THERAPY REFERENCE: * Patients > 75 years receive moderate or high dose statin therapy. * Patients 75 years or YOUNGER should receive HIGH intensity statin dose unless contraindicated. You will be required to document reason for non-treatment if statin daily dose does not meet guidelines. HIGH DOSE STATIN THERAPY DAILY Atorvastatin > than or = to 40 mg Rosuvastatin > than or = to 20 mg Amlodipine + Atorvastatin > than or = to 2.5/40 mg Ezetimibe + Simvastatin 10/80 mg Simvastatin 80mg Discharge Plan Admission Admit Date/Time: 01/06/24 16:22 Primary Reason for Your Visit: Non-STEMI, anemia secondary to gastric and duodenal ulcers Attending Provider: Jermaine Jaramillo Primary Care Provider: Haritha Alonso Consulting Providers: Philippe José Discharge Orders/Prescriptions Prescriptions: New atorvastatin 40 mg Tablet 40 mg PO QHS Qty: 30 0RF carvedilol 6.25 mg Tablet 6.25 mg PO BID Qty: 60 0RF lisinopril 10 mg Tablet 10 mg PO DAILY Qty: 30 0RF clopidogrel [Plavix] 75 mg tablet 75 mg PO DAILY Qty: 30 0RF Rx Instructions: start on 01/07/24 pantoprazole [Protonix] 40 mg tablet,delayed release (DR/EC) 40 mg PO BID Qty: 60 0RF Continued prednisone 10 mg tablet 10 mg PO DAILY PRN (Reason: breathing) Rx Instructions: 4 tabs daily for 3 days, then 3 tabs daily for 3 days, then 2 tabs daily for 3 days, then 1 tab daily for 3 days Breztri Aerosphere 160-9-4.8 mcg/actuation HFA aerosol inhaler 2 inh inhalation BID Qty: 10.7 6RF tramadol 50 MG tablet 50 mg PO DAILY PRN (Reason: Pain Score 1-10) oxybutynin chloride 5 MG tablet 5 - 10 mg PO DAILY hydroxychloroquine 200 MG tablet 200 mg PO BIDCM cholecalciferol (vitamin D3) 2,000 UNIT capsule 2,000 unit PO DAILY aspirin 81 mg Tablet,Chewable 81 mg PO DAILYCM Qty: 0 0RF Discontinued hydrochlorothiazide 12.5 MG capsule 25 mg PO DAILY amlodipine 10 mg Tablet 10 mg PO DAILY 30 Days Qty: 30 0RF Referrals / Follow Up: Haritha Alonso, SALES LEDGER CLERK-C [Primary Care Provider] - Within 2 Weeks Disposition Disposition (needs filled in before D/C Order can be placed): Home, Self Care
--- NOTE | 2024-01-07 18:20 | PN.HOSP_ITS ---
Reason for Visit Reason for Visit: Diagnoses Non-ST elevation (NSTEMI) myocardial infarction (01/06/24) Acute myocardial infarction, unspecified (01/06/24) Chronic respiratory failure with hypoxia (01/06/24) Gastrointestinal hemorrhage, unspecified (01/06/24) COVID-19 (01/06/24) Subjective Subjective Patient was seen and examined today, due to an anemia and concerns that she may be having blood in her stool, patient underwent an EGD today which revealed nonbleeding gastric ulcers and nonbleeding duodenal ulcers. Late this afternoon I had plan on sending the patient home and in preparing her to be discharged, the granddaughter noticed that when she urinated it was gross blood. I went back and and looked in her urine hat and there was gross hematuria. Why the patient did not tell me she was having gross hematuria I do not know. I contacted Dr. Umaña who is out of town but agreed to see the patient in approximately 2 to 3 hours tonight. In the meantime patient will have a three- way Cortes inserted and bladder irrigation will be started. I will recheck the patient's CBC at 9 PM tonight and hold her Brilinta. I talked with Dr. Werner concerning this. Objective Data Objective Data Vital Signs: Vital Signs Temp Pulse Resp BP Pulse Ox O2 Del Method O2 Flow Rate 97.8 F 72 18 129/57 H 98 Nasal Cannula 4 01/07/24 16:25 01/07/24 16:25 01/07/24 16:25 01/07/24 16:25 01/07/24 16:41 01/07/24 16:41 01/07/24 16:41 Oxygen Flow Rate (L/min) 4 Oxygen Delivery Method Nasal Cannula Weight: 30.9 kg Body Mass Index (BMI) 11.7 Intake & Output: Intake and Output for Last 24 Hours 01/05/24 01/06/24 01/07/24 23:59 23:59 23:59 Intake Total 1110 / 1110 1116 / 1116 Balance 1110 / 1110 1116 / 1116 Lab / Micro Data 01/07/24 05:21 01/07/24 05:21 Labs: Laboratory Results - last 24 hr 01/06/24 13:33: Hemoglobin A1c 5.4, TSH 1.390 01/06/24 18:56: WBC 13.9 H, RBC 3.79 L, Hgb 11.5 L, Hct 34.0 L, MCV 89.7, MCH 30.3, MCHC 33.8, RDW Std Deviation 43.8, RDW Coeff of Nasir 13.5, Plt Count 192, MPV 10.5 01/06/24 20:44: Urine Color Red, Urine Clarity Turbid, Urine pH 6.5, Ur Specific [place] 1.010, Urine Protein 100 H, Urine Glucose (UA) Normal, Urine Ketones 15 H, Urine Occult Blood 250 H, Urine Nitrite Negative, Urine Bilirubin Negative, Urine Urobilinogen Normal, Ur Leukocyte Esterase 100 H, Urine RBC 50-100 SEEN, Urine WBC 25-50 SEEN, Ur Squamous Epith Cells 0 SEEN, Urine Bacteria 0 SEEN, Urine Mucus 0 SEEN 01/07/24 05:21: WBC 9.6, RBC 3.35 L, Hgb 10.1 L, Hct 31.1 L, MCV 92.8, MCH 30.1, MCHC 32.5, RDW Std Deviation 45.7 H, RDW Coeff of Nasir 13.4, Plt Count 176, MPV 10.1, Immature Gran % (Auto) 0.500, Neut % (Auto) 70.7 H, Lymph % (Auto) 14.5 L, [place] % (Auto) 8.9, Eos % (Auto) 5.2 H, Baso % (Auto) 0.2, Absolute Neuts (auto) 6.8, Absolute Lymphs (auto) 1.39, Nucleated RBC % 0, Sodium 136, Potassium 3.8, Chloride 104, Carbon Dioxide 25.0, Anion Gap 6, BUN 20 H, Creatinine 0.78, Estim Creat Clear Calc 30.55, Est GFR (MDRD) Af Amer 94, Est GFR (MDRD) Non-Af 77, B UN/Creatinine Ratio 25.8 H, Glucose 103, Calcium 9.0, Total Bilirubin 0.70, AST 21, ALT 17, Alkaline Phosphatase 82, Total Protein 6.3 L, Albumin 2.6 L, Globulin 3.7, Albumin/Globulin Ratio 0.7 L, Triglycerides 102, Cholesterol 113, LDL Cholesterol 60, VLDL Cholesterol 20, HDL Cholesterol 33 L Micro: Microbiology 01/06/24 20:44 Urine, Clean Catch Urine Culture - Preliminary GNR 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 foreman Gram negative stacey Physical Exam Const alert, oriented x3, no apparent distress and average body habitus General Appearance: cooperative, well kempt and well developed Orientation / Consciousness: awake, oriented to person, oriented to place and oriented to time HEENT normocephalic and moist oral mucous membranes Eyes PERRL, EOMs intact bilaterally and conjunctivae normal Neck supple, no JVD, thyroid normal and no carotid bruits General: trachea midline Resp normal respiratory effort, no retractions, no use of accessory muscles and clear to auscultation bilaterally Auscultation: Negative for rales, rhonchi or wheezes Cardio regular rate, regular rhythm, S1 normal heart sound, S2 normal heart sound, no murmurs, no rub and no gallops GI normal to inspection, nondistended, normoactive bowel sounds, soft to palpation, non-tender and non-distended Extremity no clubbing, cyanosis or edema Skin no rashes or lesions noted General Skin Exam: no breakdown Neuro oriented x3, CN's II-XII intact bilaterally, moves all extremities, no focal motor deficits and no sensory deficits noted Sensorium / Orientation: awake and alert Speech: speech normal Psych affect normal Assessment & Plan Assessment/Plan (1) Non-ST elevation CO (NSTEMI): PLAN: Plan 1. Non-ST elevation CO-patient underwent insertion of a LEIGHTON yesterday in the proximal circumflex artery, unfortunately due to the patient's gross hematuria tonight her Brilinta will have to be held, she will remain on a baby aspirin. Patient will remain on her other medications which include beta-bianca, and SUKUMAR inhibitor, statin, and an aspirin. #2 gross hematuria-etiology unclear, a three-way Cortes will be inserted and she will undergo bladder irrigation with normal saline, she will be seen by urology ashwini, urology stated that they would like to get imaging studies done via CAT scan. I asked urology if she would be kind enough to order what ever test that she felt appropriate and she said she would. #3 nonbleeding gastric and duodenal ulceration-patient will remain on Protonix #4 chronic obstructive pulmonary disease-complicates care, management, recovery, and prognosis #5 chronic hypoxic respiratory failure-patient is on chronic O2 at home, she remains stable at this time #6 acute blood loss anemia secondary to gross hematuria-I will repeat the patient's CBC at 9 PM ashwini #7 recent COVID-19 infection-patient is approximately 1 week out of her COVID 19 infection, she has no serious sequelae and she does not complain of any myalgias or increased respiratory problems. Total clinical time spent by myself addressing patient's medical issues, reviewing all of her data, and collaborating with patient's care team: 50 minutes Charges/Coding Visit Charges Inpatient E&M: 64673 Subs Hosp L3
[2024-01-07] MEDS: Ceftriaxone 2 GM in 0.9% Normal Saline (50mL MB+) 50 ML IV (18:42)
[2024-01-07] MEDS: 0.9% Saline Lock 10 ML Syringe IV (18:42)
--- NOTE | 2024-01-07 19:26 | PCM.CONS.GEN ---
Assessment & Plan Assessment/Plan (1) Gross hematuria: PLAN: Continuous bladder irrigation, manual bladder irrigation Follow hemoglobin, transfuse as needed per primary service Evaluation with CT urogram Will need to send urine for cytologic evaluation once the catheter is removed She will require cystoscopy, if the urine clears this can be done as an outpatient (2) Urinary tract infection: QUALIFIERS: Urinary tract infection type: acute cystitis Hematuria presence: with hematuria Qualified Code(s): N30.01 - Acute cystitis with hematuria PLAN: Await urine culture results Continue antibiotic coverage PLAN: Plan If the urine is clear in the morning and the CBI has been titrated to off, we will remove the catheter and give a trial of void HPI Consult Data Date of Consult: 01/07/24 HPI Narrative Reason for Consultation: Gross hematuria HPI Narrative: ZEINAB HULL, is a 73 F who is in the PACU after having a cardiac catheterization and a stent inserted. She had significant decrease in her hemoglobin with question of blood seen in her stool and underwent an gastrointestinal evaluation earlier today. This evening she began to have grossly bloody urine and I was consulted. She has no history of hematuria or kidney stones in the past. However she has a significant smoking history of decades, she reports more than 20 years and is much as 2 packs/day. She has a history of urinary tract infections intermittently throughout the course of her adult life. She also admits to stress urinary incontinence as well as occasional urge incontinence. [facility] Medical History (Updated 01/07/24 @ 19:[address] Rain Umaña MD) Urinary tract infection Gross hematuria Acute dehydration Skin tag History of left breast cancer RIGHT ANKLE FRACTURE REPAIR EXCISION STOMACH TUMOR Parkinson disease Mixed connective tissue disease Polyarthropathy Lupus Hypertension COPD (chronic obstructive pulmonary disease) Asthma Arthritis Pulmonary nodules/lesions, multiple Tobacco use disorder Breast pain Osteopenia Malignant neoplasm of central portion of female breast Low bone density Home Medications ?Medication ?Instructions ?Recorded ?Last Taken ?Type tramadol 50 mg tablet 50 mg PO DAILY PRN Pain Score 1-10 03/02/14 06/06/23 06:30 History oxybutynin chloride 5 mg tablet 5 - 10 mg PO DAILY pain 01/25/20 06/06/23 08:45 History cholecalciferol (vitamin D3) 50 2,000 unit PO DAILY deficiency 07/27/20 06/06/23 08:45 History mcg (2,000 unit) capsule hydroxychloroquine 200 mg tablet 200 mg PO BIDCM arthritis 07/27/20 06/06/23 08:45 History aspirin 81 mg chewable tablet 81 mg PO DAILYCM Heart #0 tabs 06/06/23 06/06/23 08:45 Rx budesonide 160 mcg-glycopyr 9 2 inh inhalation BID breathing 07/05/23 Unknown Rx mcg-formot 4.8 mcg/actuation HFA #10.7 grams inhaler (Breztri Aerosphere) prednisone 10 mg tablet 10 mg PO DAILY PRN breathing 07/05/23 Unknown History atorvastatin 40 mg tablet 40 mg PO QHS #30 tabs 01/07/24 Unknown Rx carvedilol 6.25 mg tablet 6.25 mg PO BID #60 tabs 01/07/24 Unknown Rx clopidogrel 75 mg tablet (Plavix) 75 mg PO DAILY #30 tabs 01/07/24 Unknown Rx lisinopril 10 mg tablet 10 mg PO DAILY #30 tabs 01/07/24 Unknown Rx pantoprazole 40 mg tablet,delayed 40 mg PO BID #60 tabs 01/07/24 Unknown Rx release (Protonix) Allergy/AdvReac Type Severity Reaction Status Date / Time bromide salts (bromide) AdvReac Hives Verified 01/06/24 12:35 strawberry AdvReac Hives Verified 01/06/24 12:35 Family History Mother Arthritis Diabetes Hypertension Osteoporosis Father Arthritis Heart disease Sister Arthritis Breast cancer Diabetes Hypertension Son Diabetes Other Alzheimer disease Anemia Hyperlipidemia Thyroid disorder Surgical History History of lung biopsy History of tubal ligation History of lumpectomy Hx of cholecystectomy Social History household members: spouse Smoking Status: Current some day smoker tobacco type: cigarettes alcohol intake: never substance use type: does not use ROS Constitutional Constitutional: Reports weight loss Eyes Eyes: Reports systems reviewed and no addt'l complaints, except as documented ENT HEENT: Reports systems reviewed and no addt'l complaints, except as documented Cardiovascular Cardiovascular: Reports chest pain and other Details: During this admission, now status post stent Respiratory/Chest Respiratory/Chest: Reports other Details: Chronic respiratory failure, on oxygen at home Gastrointestinal Gastrointestinal: Reports hematochezia and weight changes Genitourinary Genitourinary: Reports hematuria and urinary incontinence; Denies dysuria or urinary hesitancy Musculoskeletal Musculoskeletal: Reports systems reviewed and no addt'l complaints, except as documented Integumentary Integumentary: Reports systems reviewed and no addt'l complaints, except as documented Neurologic Neurologic: Reports systems reviewed and no addt'l complaints, except as documented Psychiatric Psychiatric: Reports systems reviewed and no addt'l complaints, except as documented Endocrine Endocrinology: Reports systems reviewed and no addt'l complaints, except as documented Hematologic/Lymphatic Hematologic/Lymphatic: Reports systems reviewed and no addt'l complaints, except as documented Allergic/Immunologic Allergic/Immunologic: Reports systems reviewed and no addt'l complaints, except as documented Physical Exam Const alert and oriented x3 General Appearance: cooperative, well kempt and well developed HEENT normocephalic, head/scalp atraumatic, hearing grossly normal bilaterally, external ears normal and external nose normal Eyes General Eye: normal appearance of both eyes Neck supple General: normal visual inspection and trachea midline Lymph Lymphatic: no lymphedema noted Chest inspection of chest normal Resp Effort and Inspection: able to speak in complete sentences and symmetric chest movement Cardio regular rate GI soft to palpation, non-tender and non-distended external exam normal Narrative: No significant prolapse, difficult examination secondary to hospital bed and patient positioning. Bladder / Kidney Exam: catheter in place urethral (A 22 [place] three-way catheter was draining dark bloody urine. This was removed. A 24 three-way Simplastic catheter was inserted without difficulty and the balloon was inflated with 30 cc of sterile water. The catheter was irrigated to clear and no clots were obtained. Continuous bladder irrigat) Extremity normal to inspection Skin no rashes or lesions noted, no wounds, no jaundice, no petechiae and no mottling Neuro oriented x3, CN's II-XII intact bilaterally and moves all extremities Psych mental status grossly normal and thought process normal Lab / Micro Data 01/07/24 05:21 01/07/24 05:21 Labs: Laboratory Results - last 24 hr 01/06/24 13:33: Hemoglobin A1c 5.4, TSH 1.390 01/06/24 20:44: Urine Color Red, Urine Clarity Turbid, Urine pH 6.5, Ur Specific [place] 1.010, Urine Protein 100 H, Urine Glucose (UA) Normal, Urine Ketones 15 H, Urine Occult Blood 250 H, Urine Nitrite Negative, Urine Bilirubin Negative, Urine Urobilinogen Normal, Ur Leukocyte Esterase 100 H, Urine RBC 50-100 SEEN, Urine WBC 25-50 SEEN, Ur Squamous Epith Cells 0 SEEN, Urine Bacteria 0 SEEN, Urine Mucus 0 SEEN 01/07/24 05:21: WBC 9.6, RBC 3.35 L, Hgb 10.1 L, Hct 31.1 L, MCV 92.8, MCH 30.1, MCHC 32.5, RDW Std Deviation 45.7 H, RDW Coeff of Nasir 13.4, Plt Count 176, MPV 10.1, Immature Gran % (Auto) 0.500, Neut % (Auto) 70.7 H, Lymph % (Auto) 14.5 L, [place] % (Auto) 8.9, Eos % (Auto) 5.2 H, Baso % (Auto) 0.2, Absolute Neuts (auto) 6.8, Absolute Lymphs (auto) 1.39, Nucleated RBC % 0, Sodium 136, Potassium 3.8, Chloride 104, Carbon Dioxide 25.0, Anion Gap 6, BUN 20 H, Creatinine 0.78, Estim Creat Clear Calc 30.55, Est GFR (MDRD) Af Amer 94, Est GFR (MDRD) Non-Af 77, BUN/Creatinine Ratio 25.8 H, Glucose 103, Calcium 9.0, Total Bilirubin 0.70, AST 21, ALT 17, Alkaline Phosphatase 82, Total Protein 6.3 L, Albumin 2.6 L, Globulin 3.7, Albumin/Globulin Ratio 0.7 L, Triglycerides 102, Cholesterol 113, LDL Cholesterol 60, VLDL Cholesterol 20, HDL Cholesterol 33 L Micro: Microbiology 01/06/24 20:44 Urine, Clean Catch Urine Culture - Preliminary GNR lactose nurse ortho Gram negative stacey
--- NOTE | 2024-01-07 19:38 | CT_ITS ---
STUDY: CT ABDOMEN AND PELVIS WITH AND WITHOUT CONTRAST REASON FOR EXAM: Female, 73 years old. gross hematuria, please perform CTU RADIATION DOSAGE (If Supplied By Facility): CTDIvol = ( 22.33 ) mGy, DLP = ( 3830.46 ) mGycm TECHNIQUE: Transaxial images were obtained from the dome of the diaphragm to the symphysis pubis without oral contrast. IV 100mL [id number]-[id number] was administered. Sagittal and coronal images were reconstructed. Individualized dose optimization techniques were used for this CT. COMPARISON: None. FINDINGS: There is a tiny left pleural effusion and compressive atelectasis in left lower lobe. Heart size is normal. There is multivessel coronary artery calcification. Normal liver. Gallbladder not visualized likely due to prior cholecystectomy Normal spleen. Normal pancreas. Normal bilateral adrenal glands. Nonobstructing large staghorn calculus in the right kidney Mild cortical scarring of the left kidney. Small left renal cyst which will not require additional imaging. Normal visualized stomach. Normal small intestine. Normal colon. No evidence for acute appendicitis Atherosclerotic changes of the aorta without evidence for aneurysm Normal inferior vena cava. Normal retroperitoneum. Incompletely distended thick walled bladder containing Cortes catheter and air. Normal abdominal wall. Lumbar spine demonstrates degenerative changes. CT/CT Abd/Pelvis W/WO Contrast IMPRESSION: Nonobstructing large staghorn calculus in the right kidney. Small left renal cyst which will not require additional imaging Electronically Signed: Julio Mendenhall MD at 21:35 EDT ,
[2024-01-07 21:36] LABS: Absolute Lymphocyte Count 1.86 X10^3/uL (0.83-4.51); Absolute Neutrophil Count 8.5 X10^3/uL (2.0-7.7); Basophil# 0.06 X10^3/uL; Basophil% 0.5 % (0-1); Eosinophil# 0.49 X10^3/uL; Eosinophils% 4.1 % (0-5); Hematocrit 32.7 % (37-47); Hemoglobin 10.9 g/dL (12.0-15.0); Lymphocyte # 1.86 X10^3/ul (0.83-4.51); Lymphocyte % 15.5 % (19-41); Mean Corp Hgb Conc 33.3 g/dL (32-36); Mean Corpuscular Hgb 30.3 pg (27.0-32.0); Mean Corpuscular Volume 90.8 fL (81-99); Mean Platelet Vol. 10.8 fl (6.2-12.0); Monocyte# 0.96 X10^3/uL; NRBC Flagged by Analyzer 0 % (0-5); Neutrophil # 8.46 X10^3/uL (2.7-7.7); Neutrophil % 70.6 % (47-70); Platelet Count 119 K/mm3 (150-450); RBC Distribution Width CV 13.7 % (11.6-14.6)
[2024-01-07] MEDS: Atorvastatin Calcium 40 MG Tablet PO (23:15)
[2024-01-07] MEDS: MELATONIN 3 MG TABLET PO (23:28)
[2024-01-08] VITALS (8 sets, daily range): BP systolic 134–162; BP diastolic 51–76; PULSE 63–72; RESP 16–18; TEMP 36.4–36.7; O2SAT 96–100; BMI 31.1
[2024-01-08] MEDS: 0.9% Saline Lock 10 ML Syringe IV ×2 (01:42→08:46)
[2024-01-08] MEDS: Ondansetron 4 MG/2 ML Vial IV (01:42)
[2024-01-08 06:49] LABS: Absolute Neutrophil Count 10.9 X10^3/uL (2.0-7.7); Basophil# 0.04 X10^3/uL; Basophil% 0.3 % (0-1); Eosinophil# 0.51 X10^3/uL; Eosinophils% 3.7 % (0-5); Hematocrit 32.1 % (37-47); Hemoglobin 10.4 g/dL (12.0-15.0); Lymphocyte % 7.3 % (19-41); Mean Corp Hgb Conc 32.4 g/dL (32-36); Mean Corpuscular Hgb 30.2 pg (27.0-32.0); Mean Corpuscular Volume 93.3 fL (81-99); Mean Platelet Vol. 10.2 fl (6.2-12.0); Monocyte# 1.12 X10^3/uL; Monocyte% 8.2 % (0-10); NRBC Flagged by Analyzer 0 % (0-5); Platelet Count 215 K/mm3 (150-450); RBC Distribution Width SD 47.2 fl (35.1-43.9); Red Blood Count 3.44 M/mm3 (4.2-5.4); White Blood Count 13.6 K/mm3 (4.4-11.0)
[2024-01-08] MEDS: Ipratropium/Albuterol Sulfate 3 ML AMPUL.NEB INHALATION ×2 (07:31→13:31)
[2024-01-08] MEDS: Budesonide Respules 0.5 MG/2 ML AMPUL.NEB. INHALATION (07:31)
--- NOTE | 2024-01-08 08:17 | PN.URO_ITS ---
Subjective Subjective The patient is awake and alert. No complaints overnight. Granddaughter is at bedside. We discussed the findings of the CT scan revealing a very large right staghorn calculus which combined with a urinary tract infection is the likely source of her hematuria. I discussed with them that she will need at minimum a cystoscopy in the office and we do not need to stop her anticoagulation for that. For surgical intervention on the stone, this will require much more than we can do or plan to do in the near future. I will likely refer her to a tertiary care center. She is aware of this. Objective Data Objective Data Vital Signs: Vital Signs Temp Pulse Resp BP Pulse Ox O2 Del Method O2 Flow Rate 97.8 F 63 16 151/51 H 99 Nasal Cannula 4 01/08/24 06:00 01/08/24 06:00 01/08/24 06:00 01/08/24 06:00 01/08/24 06:00 01/08/24 06:00 01/08/24 06:00 Oxygen Flow Rate (L/min) 4 Oxygen Delivery Method Nasal Cannula Weight: 82.3 kg Body Mass Index (BMI) 31.1 Intake & Output: Intake and Output for Last 24 Hours 01/06/24 01/07/24 01/08/24 23:59 23:59 23:59 Intake Total 1110 / 1110 1276 / 1276 Output Total 88054 / 97432 Balance 1110 / 1110 1276 / -45157 -66349 / -[id number] Lab / Micro Data 01/08/24 06:08 01/07/24 05:21 Labs: Laboratory Results - last 24 hr 01/06/24 20:44: Urine Color Red, Urine Clarity Turbid, Urine pH 6.5, Ur Specific [place] 1.010, Urine Protein 100 H, Urine Glucose (UA) Normal, Urine Ketones 15 H, Urine Occult Blood 250 H, Urine Nitrite Negative, Urine Bilirubin Negative, Urine Urobilinogen Normal, Ur Leukocyte Esterase 100 H, Urine RBC 50-100 SEEN, Urine WBC 25-50 SEEN, Ur Squamous Epith Cells 0 SEEN, Urine Bacteria 0 SEEN, Urine Mucus 0 SEEN 01/07/24 21:21: WBC 12.0 H, RBC 3.60 L, Hgb 10.9 L, Hct 32.7 L, MCV 90.8, MCH 30.3, MCHC 33.3, RDW Std Deviation 45.0 H, RDW Coeff of Nasir 13.7, Plt Count 119 L, MPV 10.8, Immature Gran % (Auto) 1.300 H, Neut % (Auto) 70.6 H, Lymph % (Auto) 15.5 L, [place] % (Auto) 8.0, Eos % (Auto) 4.1, Baso % (Auto) 0.5, Absolute Neuts (auto) 8.5 H, Absolute Lymphs (auto) 1.86, Nucleated RBC % 0 01/08/24 06:08: WBC 13.6 H, RBC 3.44 L, Hgb 10.4 L, Hct 32.1 L, MCV 93.3, MCH 30.2, MCHC 32.4, RDW Std Deviation 47.2 H, RDW Coeff of [place] 14.0, Plt Count 215, MPV 10.2, Immature Gran % (Auto) 0.500, Neut % (Auto) 80.0 H, Lymph % (Auto) 7.3 L, [place] % (Auto) 8.2, Eos % (Auto) 3.7, Baso % (Auto) 0.3, Absolute Neuts (auto) 10.9 H, Absolute Lymphs (auto) 1.00, Nucleated RBC % 0 Micro: Microbiology 01/06/24 20:44 Urine, Clean Catch Urine 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 Small left renal cyst which will not require additional imaging Electronically Signed: Julio Mendenhall MD at 21:35 EDT , Physical Exam Const alert, oriented x3 and no apparent distress HEENT normocephalic, head/scalp atraumatic, hearing grossly normal bilaterally, external ears normal and external nose normal Eyes General Eye: normal appearance of both eyes Neck supple General: normal visual inspection Lymph Lymphatic: no lymphedema noted Chest inspection of chest normal Resp normal respiratory effort and normal air movement Resp Narrative: With nasal cannula oxygen Cardio regular rate GI soft to palpation and non-tender Narrative: The urine and her Cortes is clear to light yellow with very minimal pink. No clots. Extremity normal to inspection Skin no rashes or lesions noted, no wounds, no jaundice, no petechiae and no mottling Neuro oriented x3, CN's II-XII intact bilaterally and moves all extremities Psych mental status grossly normal and thought process normal Assessment & Plan Assessment/Plan (1) Urinary tract infection: QUALIFIERS: Urinary tract infection type: acute cystitis H ematuria presence: with hematuria Qualified Code(s): N30.01 - Acute cystitis with hematuria PLAN: Continue antibiotics for a complete course Culture is still pending (2) Gross hematuria: PLAN: Hemoglobin has been stable since yesterday Remove Cortes catheter, discussed with nursing that there is 30 cc in the balloon Cystoscopy and cytology in the office (3) Staghorn renal calculus: PLAN: No intervention during this admission Plan for tertiary care center consultation and likely no surgical intervention in the near future secondary to her cardiac status PLAN: Plan Okay to resume full anticoagulation from urology standpoint knowing that there is no intervention to be performed during this admission for the large right staghorn renal calculus.
[2024-01-08] MEDS: traMADol 50 MG Tablet PO (08:44)
[2024-01-08] MEDS: Carvedilol 6.25 MG Tablet PO (08:45)
[2024-01-08] MEDS: Lisinopril 10 MG Tablet PO (08:45)
[2024-01-08] MEDS: Hydroxychloroquine 200 MG Tablet PO (08:45)
[2024-01-08] MEDS: Oxybutynin 5 MG Tablet PO (08:45)
[2024-01-08] MEDS: Cholecalciferol (VIT D3) 25 MCG TABLET (1,000 UNITS) 50 MCG PO (08:45)
[2024-01-08] MEDS: Aspirin 81 MG TAB.CHEW PO (08:45)
[2024-01-08] MEDS: Pantoprazole Sodium 40 MG in 0.9% Normal Saline (100mL MB+) 100 ML 330 MG IV (08:50)
--- NOTE | 2024-01-08 09:37 | PN.HOSP_ITS ---
Reason for Visit Reason for Visit: Diagnoses Non-ST elevation (NSTEMI) myocardial infarction (01/06/24) Acute myocardial infarction, unspecified (01/06/24) Chronic respiratory failure with hypoxia (01/06/24) Gastrointestinal hemorrhage, unspecified (01/06/24) Calculus of kidney (01/06/24) Acute cystitis with hematuria (01/06/24) Gross hematuria (01/06/24) COVID-19 (01/06/24) Subjective Subjective Patient is a 73-year-old female admitted with worsening dyspnea. Was found to have elevated troponin consistent with acute non-STEMI. Underwent left heart catheterization with intervention. Hospital stay complicated by hematuria Objective Data Objective Data Vital Signs: Vital Signs Temp Pulse Resp BP Pulse Ox O2 Del Method O2 Flow Rate 97.8 F 72 16 151/51 H 100 Nasal Cannula 4 01/08/24 06:00 01/08/24 07:43 01/08/24 07:43 01/08/24 06:00 01/08/24 07:43 01/08/24 08:30 01/08/24 08:30 Oxygen Flow Rate (L/min) 4 Oxygen Delivery Method Nasal Cannula Weight: 82.3 kg Body Mass Index (BMI) 31.1 Intake & Output: Intake and Output for Last 24 Hours 01/06/24 01/07/24 01/08/24 23:59 23:59 23:59 Intake Total 1110 / 1110 1276 / 1276 Output Total 98976 / 39346 Balance 1110 / 1110 1276 / -23211 -37078 / -20309 Lab / Micro Data 01/08/24 06:08 01/07/24 05:21 Labs: Laboratory Results - last 24 hr 01/06/24 20:44: Urine Color Red, Urine Clarity Turbid, Urine pH 6.5, Ur Specific [place] 1.010, Urine Protein 100 H, Urine Glucose (UA) Normal, Urine Ketones 15 H, Urine Occult Blood 250 H, Urine Nitrite Negative, Urine Bilirubin Negative, Urine Urobilinogen Normal, Ur Leukocyte Esterase 100 H, Urine RBC 50-100 SEEN, Urine WBC 25-50 SEEN, Ur Squamous Epith Cells 0 SEEN, Urine Bacteria 0 SEEN, Urine Mucus 0 SEEN 01/07/24 21:21: WBC 12.0 H, RBC 3.60 L, Hgb 10.9 L, Hct 32.7 L, MCV 90.8, MCH 30.3, MCHC 33.3, RDW Std Deviation 45.0 H, RDW Coeff of Nasir 13.7, Plt Count 119 L, MPV 10.8, Immature Gran % (Auto) 1.300 H, Neut % (Auto) 70.6 H, Lymph % (Auto) 15.5 L, [place] % (Auto) 8.0, Eos % (Auto) 4.1, Baso % (Auto) 0.5, Absolute Neuts (auto) 8.5 H, Absolute Lymphs (auto) 1.86, Nucleated RBC % 0 01/08/24 06:08: WBC 13.6 H, RBC 3.44 L, Hgb 10.4 L, Hct 32.1 L, MCV 93.3, MCH 30.2, MCHC 32.4, RDW Std Deviation 47.2 H, RDW Coeff of Nasir 14.0, Plt Count 215, MPV 10.2, Immature Gran % (Auto) 0.500, Neut % (Auto) 80.0 H, Lymph % (Auto) 7.3 L, [place] % (Auto) 8.2, Eos % (Auto) 3.7, Baso % (Auto) 0.3, Absolute Neuts (auto) 10.9 H, Absolute Lymphs (auto) 1.00, Nucleated RBC % 0 Micro: Microbiology 01/06/24 20:44 Urine, Clean Catch Urine Culture - 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 Small left renal cyst which will not require additional imaging Electronically Signed: Julio Mendenhall MD at 21:35 EDT , Physical Exam Narrative GENERAL: cooperative HEENT: Atraumatic; normocephalic EYES; Anicteric, Normal Conjunctiva NECK; supple, normal thyroid, RESPIRATORY: Diminished to auscultation CARDIOVASCULAR: Regular S1 S2, GI: soft, normoactive bowel sounds, : No Renal angle tenderness; EXTREMITIES: No edema, no clubbing, MUSCULOSKELETAL: no muscle wasting NEURO: Awake; no lateralizing signs. SKIN: No Rash PSYCH; Flat affect Assessment & Plan Assessment/Plan (1) Non-ST elevation ND (NSTEMI): PLAN: Plan Patient is a 73-year-old female admitted with worsening dyspnea. Was found to have elevated troponin consistent with acute non-STEMI. Underwent left heart catheterization with intervention. Hospital stay complicated by hematuria 1. Acute non-STEMI ? Patient underwent left heart catheterization on 01/06/2024 with LEIGHTON placed to the proximal circumflex artery. Subsequently started on guideline directed medical therapy 2. Gross hematuria secondary to presence of acute cystitis as well as nephrolithiasis. ? CT obtained demonstrated a large right staghorn calculus. Patient was seen in consultation by Dr. Umaña with urology plan is for patient to follow-up with her as outpatient for cystoscopy 3. Anemia ? Secondary to chronic disorder as well as acute blood loss anemia from hematuria. As part of her management Patient underwent EGD by Dr. Lozano on 01/07/2024 findings included a normal esophagus, nonbleeding gastric ulcers with no stigmata of bleeding and nonbleeding duodenal ulcers. Patient was started on Protonix 40 mg p.o. twice daily as well as sacral fate 1 g 4 times daily for 4 weeks 5. Chronic hypoxic respiratory failure ? Secondary to COPD patient is on baseline home O2 6. COPD ? Currently not in exacerbation 7. Recent COVID-19 infection ? Symptomatic treatment
[2024-01-08] MEDS: Ceftriaxone 2 GM in 0.9% Normal Saline (50mL MB+) 50 ML IV (09:43)
--- NOTE | 2024-01-08 10:00 | EKG12_ITS ---
Test Reason : AM EKG Blood Pressure : / mmHG Vent. Rate : 065 BPM Atrial Rate : 065 BPM P-R Int : 142 ms QRS Dur : 078 ms QT Int : 382 ms P-R-T Axes : 047 018 063 degrees QTc Int : 397 ms Normal sinus rhythm Low voltage QRS Nonspecific ST and T wave abnormality Abnormal ECG When compared with ECG of 07-JAN-2024 05:49, Criteria for Septal infarct are no longer Present Confirmed by MICHELLE REAGAN, TEMITOPE ([id number]), editor book RIK SCRUGGS ([id number]) on 01/09/2024 1:13:13 PM Referred By: Confirmed By:TEMITOPE MARTINEZ MD
--- NOTE | 2024-01-08 12:15 | PCM.DC.SUM ---
Providers Date of Admission: 01/06/24 Date of Discharge: 01/08/24 Primary Care Physician: Haritha Alonso, EBONY-Hemanth Consultations 01/06/24 19:53 Consult: Gastroenterology Routine Consulting Provider: David [facility] Reason for Consult: GI bleed EMERGENT Consult: No Notified: Yes Date Notified: 01/07/24 Time Notified: 06:05 Method of Notification: Text 01/07/24 17:57 Consult: Nephrology Routine Consulting Provider: Rain Umaña Reason for Consult: gross hematuria EMERGENT Consult: No Notified: Yes Date Notified: 01/07/24 Time Notified: 17:58 Method of Notification: Verbal Consult: Urology Routine Consulting Provider: Rain Umaña Reason for Consult: gross hematuria EMERGENT Consult: No Notified: Yes Date Notified: 01/07/24 Time Notified: 17:58 Method of Notification: Verbal Reason For Visit: NSTEMI Diagnosis Discharge Diagnosis (1) Non-ST elevation AK (NSTEMI): Status: Acute Code(s): I21.4 - Non-ST elevation (NSTEMI) myocardial infarction Plan Patient is a 73-year-old female admitted with worsening dyspnea. Was found to have elevated troponin consistent with acute non-STEMI. Underwent left heart catheterization with intervention. Hospital stay complicated by hematuria 1. Acute non-STEMI ? Patient underwent left heart catheterization on 01/06/2024 with LEIGHTON placed to the proximal circumflex artery. Subsequently started on guideline directed medical therapy 2. Gross hematuria secondary to presence of acute cystitis as well as nephrolithiasis. ? CT obtained demonstrated a large right staghorn calculus. Patient was seen in consultation by Dr. Umaña with urology plan is for patient to follow-up with her as outpatient for cystoscopy 3. Anemia ? Secondary to chronic disorder as well as acute blood loss anemia from hematuria. As part of her management Patient underwent EGD by Dr. Lozano on 01/07/2024 findings included a normal esophagus, nonbleeding gastric ulcers with no stigmata of bleeding and nonbleeding duodenal ulcers. Patient was started on Protonix 40 mg p.o. twice daily as well as sacral fate 1 g 4 times daily for 4 weeks 5. Chronic hypoxic respiratory failure ? Secondary to COPD patient is on baseline home O2 6. COPD ? Currently not in exacerbation 7. Recent COVID-19 infection ? Symptomatic treatment Medications at Discharge Home Medications tramadol 50 mg tablet 50 mg PO DAILY PRN Pain Score 1-10 03/02/14 oxybutynin chloride 5 mg tablet 5 - 10 mg PO DAILY pain 01/25/20 cholecalciferol (vitamin D3) 50 mcg (2,000 unit) capsule 2,000 unit PO DAILY deficiency 07/27/20 hydroxychloroquine 200 mg tablet 200 mg PO BIDCM arthritis 07/27/20 aspirin 81 mg chewable tablet 81 mg PO DAILYCM Heart #0 tabs 06/06/23 budesonide 160 mcg-glycopyr 9 mcg-formot 4.8 mcg/actuation HFA inhaler (Breztri Aerosphere) 2 inh inhalation BID breathing #10.7 grams 07/05/23 prednisone 10 mg tablet 10 mg PO DAILY PRN breathing 07/05/23 atorvastatin 40 mg tablet 40 mg PO QHS #30 tabs 01/07/24 carvedilol 6.25 mg tablet 6.25 mg PO BID #60 tabs 01/07/24 clopidogrel 75 mg tablet (Plavix) 75 mg PO DAILY #30 tabs 01/07/24 lisinopril 10 mg tablet 10 mg PO DAILY #30 tabs 01/07/24 pantoprazole 40 mg tablet,delayed release (Protonix) 40 mg PO BID #60 tabs 01/07/24 Hospital Course Procedures Cardiac catheterization and EGD Summary of Care Provided Minutes Spent on Discharge: 35 Physical Exam Narrative GENERAL: cooperative HEENT: Atraumatic; normocephalic EYES; Anicteric, Normal Conjunctiva NECK; supple, normal thyroid, RESPIRATORY: Diminished to auscultation CARDIOVASCULAR: Regular S1 S2, GI: soft, normoactive bowel sounds, : No Renal angle tenderness; EXTREMITIES: No edema, no clubbing, MUSCULOSKELETAL: no muscle wasting NEURO: Awake; no lateralizing signs. SKIN: No Rash PSYCH; Flat affect Weight / BMI Weight Weight: 82.3 kg Body Mass Index (BMI) 31.1 ABG / Lab / Microbiology Data 01/08/24 06:08 01/07/24 05:21 Laboratory: Laboratory Results - last 24 hr 01/07/24 21:21: WBC 12.0 H, RBC 3.60 L, Hgb 10.9 L, Hct 32.7 L, MCV 90.8, MCH 30.3, MCHC 33.3, RDW Std Deviation 45.0 H, RDW Coeff of Nasir 13.7, Plt Count 119 L, MPV 10.8, Immature Gran % (Auto) 1.300 H, Neut % (Auto) 70.6 H, Lymph % (Auto) 15.5 L, [place] % (Auto) 8.0, Eos % (Auto) 4.1, Baso % (Auto) 0.5, Absolute Neuts (auto) 8.5 H, Absolute Lymphs (auto) 1.86, Nucleated RBC % 0 01/08/24 06:08: WBC 13.6 H, RBC 3.44 L, Hgb 10.4 L, Hct 32.1 L, MCV 93.3, MCH 30.2, MCHC 32.4, RDW Std Deviation 47.2 H, RDW Coeff of Nasir 14.0, Plt Count 215, MPV 10.2, Immature Gran % (Auto) 0.500, Neut % (Auto) 80.0 H, Lymph % (Auto) 7.3 L, [place] % (Auto) 8.2, Eos % (Auto) 3.7, Baso % (Auto) 0.3, Absolute Neuts (auto) 10.9 H, Absolute Lymphs (auto) 1.00, Nucleated RBC % 0 Microbiology: Microbiology 01/06/24 20:44 Urine, Clean Catch Urine 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 Small left renal cyst which will not require additional imaging Electronically Signed: Julio Mendenhall MD at 21:35 EDT , D/C Instructions Discharge Diet: No restrictions Weight Bearing Status: Full weight bearing Meaningful Use Info Meaningful Use Meaningful Use Diagnoses (Choose all that apply): AMI AMI/Post PCI/Angioplasty Aspirin given w/in 24hrs of arrival?: Yes ASA at discharge?: Yes Antiplatelet Therapy at Discharge:: Yes Statins at discharge?: Yes Rylan/ARB at discharge?: Yes Beta Justus at discharge?: Yes Done w/ Acute AK measure.: Yes Documented LVEF (%): 40 Ischemic Stroke Statin Dosing Therapy Reference: STATIN DOSE THERAPY REFERENCE: * Patients > 75 years receive moderate or high dose statin therapy. * Patients 75 years or YOUNGER should receive HIGH intensity statin dose unless contraindicated. You will be required to document reason for non-treatment if statin daily dose does not meet guidelines. HIGH DOSE STATIN THERAPY DAILY Atorvastatin > than or = to 40 mg Rosuvastatin > than or = to 20 mg Amlodipine + Atorvastatin > than or = to 2.5/40 mg Ezetimibe + Simvastatin 10/80 mg Simvastatin 80mg Discharge Plan Admission Admit Date/Time: 01/06/24 16:22 Primary Reason for Your Visit: Non-STEMI, anemia secondary to gastric and duodenal ulcers Attending Provider: Darwin Gunderson Primary Care Provider: Haritha Alonso Consulting Providers: Philippe José; Rain Umaña; Jermaine Jaramillo Instructions Additional Instructions / Restrictions: It is recommended that you follow-up for evaluation of left apical lung abnormality. Remain on your current home oxygen setting. Discharge Orders/Prescriptions Prescriptions: New atorvastatin 40 mg Tablet 40 mg PO QHS Qty: 30 0RF carvedilol 6.25 mg Tablet 6.25 mg PO BID Qty: 60 0RF lisinopril 10 mg Tablet 10 mg PO DAILY Qty: 30 0RF clopidogrel [Plavix] 75 mg tablet 75 mg PO DAILY Qty: 30 0RF Rx Instructions: start on 01/07/24 pantoprazole [Protonix] 40 mg tablet,delayed release (DR/EC) 40 mg PO BID Qty: 60 0RF Continued prednisone 10 mg tablet 10 mg PO DAILY PRN (Reason: breathing) Rx Instructions: 4 tabs daily for 3 days, then 3 tabs daily for 3 days, then 2 tabs daily for 3 days, then 1 tab daily for 3 days Breztri Aerosphere 160-9-4.8 mcg/actuation HFA aerosol inhaler 2 inh inhalation BID Qty: 10.7 6RF tramadol 50 MG tablet 50 mg PO DAILY PRN (Reason: Pain Score 1-10) oxybutynin chloride 5 MG tablet 5 - 10 mg PO DAILY hydroxychloroquine 200 MG tablet 200 mg PO BIDCM cholecalciferol (vitamin D3) 2,000 UNIT capsule 2,000 unit PO DAILY aspirin 81 mg Tablet,Chewable 81 mg PO DAILYCM Qty: 0 0RF Discontinued hydrochlorothiazide 12.5 MG capsule 25 mg PO DAILY amlodipine 10 mg Tablet 10 mg PO DAILY 30 Days Qty: 30 0RF Referrals / Follow Up: Jean Carlos Hernandez MD [Med Staff - Active Staff] - See Referral Note (His office will contact you this week, if you have not heard from the office by 01/10/2024, call the office to confirm an appointment) Haritha Alonso NP-C [Primary Care Provider] - Within 2 Weeks Rain Umaña MD [Med Staff - Active Staff] - Within 1 Week Disposition Disposition (needs filled in before D/C Order can be placed): Home, Self Care Charges/Coding Visit Charges Inpatient E&M: 02829 Disch Hosp >30min
--- NOTE | 2024-01-08 15:29 | CASEMGMT ---
GUY MAURO notified prior auth was needed for Protonix. GUY MAURO called [employer], and expedited prior auth. Informed it could take up to 24 hours to get a response. Notified patient, RN and hospitalist. Patient wanting to leave. Hospitalist approved Omeprazole in place of Protonix. Notified nurse, RN will inform pt.
--- NOTE | 2024-01-08 15:49 | CASEMGMT ---
RN [place] received call back from Griffin with [email or web address] to inform Protonix was approved. Called and left message to notify pt.
== END 2024-01-08 15:40 | disposition home or self-care (01) | DRG 321 ==
LOC: ED 13:11 → PCU 21:37 → CLSP 01-07 08:39 → PCU 01-07 08:39
PROVIDERS: Anesthesiology; Internal Medicine; Internal Medicine Gastroenterology; Specialist; Admitting Provider Hospitalist; Emergency Provider Emergency Medicine; PCP Nurse Practitioner Family; Visit Provider Internal Medicine
PROC: 0DJ08ZZ Inspection of Upper Intestinal Tract, Via Natural or Artificial Opening Endoscopic (ICD-10-PCS; CPT 43235; principal; 2024-01-07 14:10)
DX: I21.4 Non-ST elevation (NSTEMI) myocardial infarction (principal); U07.1 COVID-19; J96.11 Chronic respiratory failure with hypoxia; I51.81 Takotsubo syndrome; D62 Acute posthemorrhagic anemia; N30.01 Acute cystitis with hematuria; K92.1 Melena; K26.9 Duodenal ulcer, unspecified as acute or chronic, without hemorrhage or perforation; G20.A1 Parkinson's disease without dyskinesia, without mention of fluctuations; J44.9 Chronic obstructive pulmonary disease, unspecified; M06.9 Rheumatoid arthritis, unspecified; I10 Essential (primary) hypertension; D50.9 Iron deficiency anemia, unspecified; E66.9 Obesity, unspecified; F17.210 Nicotine dependence, cigarettes, uncomplicated; I25.10 Atherosclerotic heart disease of native coronary artery without angina pectoris; N39.46 Mixed incontinence; R79.89 Other specified abnormal findings of blood chemistry; Z99.81 Dependence on supplemental oxygen; K25.9 Gastric ulcer, unspecified as acute or chronic, without hemorrhage or perforation; N20.0 Calculus of kidney; N32.81 Overactive bladder; G89.29 Other chronic pain; Z68.30 Body mass index [BMI] 30.0-30.9, adult; Z79.52 Long term (current) use of systemic steroids; Z79.82 Long term (current) use of aspirin; Z79.02 Long term (current) use of antithrombotics/antiplatelets; Z79.891 Long term (current) use of opiate analgesic
CPT/HCPCS: 36415; 71046; 74178; 80053; 80061; 81001; 83036; 83605; 84443; 84484; 85025; 85027; 85610; 85730; 87040; 87077; 87086; 87088; 87184; 87186; 88305; 88342; 92928; 93005; 93306; 93458; 94640; 94668; 99152; 99153; 99285; J7030; J7040; Q9957; Q9967; A4216; C1769; C1874; C1887; C1894; C9600; J0696; J2405

== ENCOUNTER 2024-01-13 09:18 | Inpatient (IN) | payer MEDICARE, SELFPAY ==
[2024-01-13] VITALS (37 sets, daily range): BP systolic 85–154; BP diastolic 64–98; PULSE 69–91; RESP 12–38; TEMP 35.9–37.1; O2SAT 93–100; BMI 31.1; BMI 32.4
--- NOTE | 2024-01-13 09:25 | CT_ITS ---
STUDY: CT BRAIN WITHOUT CONTRAST REASON FOR EXAM: Female, 73 years old. ams RADIATION DOSAGE (If Supplied By Facility): CTDIvol = ( 44.99 ) mGy, DLP = ( 745.49 ) mGycm TECHNIQUE: Transaxial CT imaging of the brain was performed without administration of intravenous contrast material. Individualized dose optimization techniques were used for this CT. COMPARISON: Comparison is made with prior study January 01, 2024. FINDINGS: Normal soft tissue structures. There is hyperostosis frontalis internus. There is mild cerebral atrophy with widening of the extra-axial spaces and ventricular dilatation. There are areas of decreased attenuation within the white matter tracts of the supratentorial brain, consistent with microvascular disease changes. Normal basal ganglia and thalami. Normal brainstem. Normal cerebellum. There is no intracranial hemorrhage. There are no findings of an acute ischemic infarction. Normal visualized paranasal sinuses. CT/Brain/Head without Contrast IMPRESSION: Chronic involutional changes of the brain. Electronically Signed: Xu Adams MD at 12:22 EDT ,
--- NOTE | 2024-01-13 09:25 | EKG12_ITS ---
Test Reason : UNRESP Blood Pressure : / mmHG Vent. Rate : 090 BPM Atrial Rate : 090 BPM P-R Int : 152 ms QRS Dur : 080 ms QT Int : 342 ms P-R-T Axes : 045 039 053 degrees QTc Int : 418 ms Critical Test Result: STEMI Normal sinus rhythm Septal infarct , age undetermined Nonspecific ST changes Abnormal ECG No significant change from 01/07/2024 Confirmed by Jean Carlos Hernandez ([id number]), newspaper managing editor RIK SCRUGGS ([id number]) on 01/15/2024 5:57:12 AM Referred By: Confirmed By:Jean Carlos Hernandez
[2024-01-13 09:40] LABS: Allen Test Positive; Base Excess 0 mmol/L (-2 to +2); Bicarbonate 29.4 mmol/L (22-26); Blood Gas Specimen Type ART; Mode Not entered; O2 Delivery Device NRB; PO2 245 mmHG (75-100); SITE R Radial; SO2 100 % (95-99); Total Carbon Dioxide 32 mmol/L; pCO2 86.7 mmHg (35-45); pH 7.14 (7.35-7.45)
--- NOTE | 2024-01-13 09:51 | EX.ED.DYSGE1 ---
HPI History of Present Illness Chief Complaint: Unresponsive Narrative Narrative: Patient is a 73-year-old female with past medical history of recent NSTEMI with PCI intervention, toxic cardiomyopathy, recent diagnosis of staghorn renal calculus, COPD with recent COVID-19 infection who presented to the emergency department chief complaint of altered mental status. History of present illness was unobtainable from the patient secondary to altered mental status. According to EMS when they arrived to the house they noted that she was hypoxic to 70% agonal he breathing pinpoint pupils were noted they gave Narcan. They state that they were bagging the patient and routes here to the emergency department. [facility] Medical History GI bleed Non-ST elevation [place] (NSTEMI) COVID-19 Acute [place] Atherosclerosis of coronary artery of [place] heart without angina pectoris Staghorn renal calculus Urinary tract infection Gross hematuria Acute dehydration Skin tag History of left breast cancer RIGHT ANKLE FRACTURE REPAIR EXCISION STOMACH TUMOR Parkinson disease Mixed connective tissue disease Polyarthropathy Lupus Hypertension COPD (chronic obstructive pulmonary disease) Asthma Arthritis Pulmonary nodules/lesions, multiple Tobacco use disorder Breast pain Osteopenia Malignant neoplasm of central portion of female breast Low bone density Home Medications ?Medication ?Instructions ?Recorded ?Last Taken ?Type tramadol 50 mg tablet 50 mg PO DAILY PRN Pain Score 1-10 03/02/14 06/06/23 06:30 History oxybutynin chloride 5 mg tablet 5 - 10 mg PO DAILY pain 01/25/20 06/06/23 08:45 History cholecalciferol (vitamin D3) 50 2,000 unit PO DAILY deficiency 07/27/20 06/06/23 08:45 History mcg (2,000 unit) capsule hydroxychloroquine 200 mg tablet 200 mg PO BIDCM arthritis 07/27/20 06/06/23 08:45 History aspirin 81 mg chewable tablet 81 mg PO DAILYCM Heart #0 tabs 06/06/23 06/06/23 08:45 Rx budesonide 160 mcg-glycopyr 9 2 inh inhalation BID breathing 07/05/23 Unknown Rx mcg-formot 4.8 mcg/actuation HFA #10.7 grams inhaler (Breztri Aerosphere) prednisone 10 mg tablet 10 mg PO DAILY PRN breathing 07/05/23 Unknown History atorvastatin 40 mg tablet 40 mg PO QHS #30 tabs 01/07/24 Unknown Rx carvedilol 6.25 mg tablet 6.25 mg PO BID #60 tabs 01/07/24 Unknown Rx clopidogrel 75 mg tablet (Plavix) 75 mg PO DAILY #30 tabs 01/07/24 Unknown Rx lisinopril 10 mg tablet 10 mg PO DAILY #30 tabs 01/07/24 Unknown Rx cefpodoxime 200 mg tablet 200 mg PO BID #20 tabs 01/08/24 Unknown Rx omeprazole 20 mg capsule,delayed 20 mg PO BID #120 caps 01/08/24 Unknown Rx release Allergy/AdvReac Type Severity Reaction Status Date / Time bromide salts (bromide) AdvReac Hives Verified 01/06/24 12:35 strawberry AdvReac Hives Verified 01/06/24 12:35 Family History Mother Arthritis Diabetes Hypertension Osteoporosis Father Arthritis Heart disease Sister Arthritis Breast cancer Diabetes Hypertension Son Diabetes Other Alzheimer disease Anemia Hyperlipidemia Thyroid disorder Surgical History History of coronary artery stent placement (01/07/24) History of lung biopsy History of tubal ligation History of lumpectomy Hx of cholecystectomy Social History household members: spouse Smoking Status: Current some day smoker tobacco type: cigarettes alcohol intake: never substance use type: does not use ROS ROS ED ROS Narrative Review of systems unobtainable from patient secondary to altered status therefore acute care caveat applies EXAM Physical Exam Narrative Exam Narrative: General: Patient lying in bed did appear to be acutely short of breath Head: Atraumatic, normocephalic Eyes: PERRL bilateral, EOMI bilateral, no conjunctival injection noted Neck: Soft, supple, trach midline Cardiovascular: Regular rate and rhythm no murmurs gallops rubs noted Respiratory: Coarse breath sounds bilaterally Abdomen: Soft, nondistended, bowel sounds present x 4 Extremities: Patient moving all her extremities was following commands, radial pulses +2/4 in the bilateral extremities Neurological: Patient did not follow commands close her eyes when asked close her eyes. She held her arms bilaterally in the air as well as was wiggling her toes bilaterally in the lower extremities following commands. Patient did cross midline trying to rip her [id number] off her face when EMS arrived Skin: Warm, dry, intact Const Vital Signs: 01/13/24 09:19 01/13/24 09:19 01/13/24 09:25 Temperature 97.7 F L Temperature Source Temporal Pulse Rate 87 Respiratory Rate 29 H Respiratory Effort Short of Breath Labored Accessory Muscle Use Respiratory Pattern Tachypnea Blood Pressure 154/90 H Blood Pressure Mean 111 Pulse Ox 98 Oxygen Delivery Method Non-Rebreather Non-Rebreather MDM MDM MDM Narrative Medical decision making narrative: Patient is a 73-year-old female who presented to the emergency department with a chief complaint of altered mental status. Patient will have workup formed here on the differential diagnose includes but not limited to ACS, pneumonia, PE, opiate overdose, UTI, pyelonephritis intracranial hemorrhage. Once workup is seen reviewed she will be reevaluated. Patient's recent echo was reviewed showed ejection fraction 45 to 50% and she has been having some difficulty breathing recently per family therefore we will hold off on 30 cc/kg bolus of IV fluids as there is potentially hypervolemic state. Family arrived and had further discussion with them and they state that she had been doing okay overall they state that yesterday she did have some difficulty breathing and complained of some shortness of breath. noted that he woke up this morning that she was belly breathing was concerned called EMS. They state that they did not believe that her tramadol was the cause of this as she barely uses they state. ABG Data ABG results: ABG 01/13/24 09:35 Specimen Type ART Sample Site R Radial pH 7.14 L* Bicarbonate Actual 29.4 H Total CO2 32 Base Excess 0 O2 Saturation 100 H O2 % 15.0 ABG pCO2 86.7 H* ABG pO2 245 H Ismael Test Positive O2 Delivery Device NRB Vent Mode Not entered Crit Call To/Read Back Yes Blood Gas Notified Whom manasa Blood Gas Notified Time 09:37:27 Discharge Plan Triage Chief Complaint: Unresponsive ED Provider: Armando Bradley Dx/Rx/DC Orders Prescriptions: No Action prednisone 10 mg tablet 10 mg PO DAILY PRN (Reason: breathing) Rx Instructions: 4 tabs daily for 3 days, then 3 tabs daily for 3 days, then 2 tabs daily for 3 days, then 1 tab daily for 3 days Invajo 160-9-4.8 mcg/actuation HFA aerosol inhaler 2 inh inhalation BID Qty: 10.7 6RF tramadol 50 MG tablet 50 mg PO DAILY PRN (Reason: Pain Score 1-10) oxybutynin chloride 5 MG tablet 5 - 10 mg PO DAILY hydroxychloroquine 200 MG tablet 200 mg PO BIDCM cholecalciferol (vitamin D3) 2,000 UNIT capsule 2,000 unit PO DAILY aspirin 81 mg Tablet,Chewable 81 mg PO DAILYCM Qty: 0 0RF atorvastatin 40 mg Tablet 40 mg PO QHS Qty: 30 0RF carvedilol 6.25 mg Tablet 6.25 mg PO BID Qty: 60 0RF lisinopril 10 mg Tablet 10 mg PO DAILY Qty: 30 0RF clopidogrel [Plavix] 75 mg tablet 75 mg PO DAILY Qty: 30 0RF Rx Instructions: start on 01/07/24 cefpodoxime 200 mg tablet 200 mg PO BID Qty: 20 0RF Rx Instructions: must administer with a meal/food omeprazole 20 mg capsule,delayed release(DR/EC) 20 mg PO BID Qty: 120 0RF Primary Care Provider: Haritha Alonso Referrals: Haritha Alonso, [facility] [Primary Care Provider] - Print Language: Kiswahili
--- NOTE | 2024-01-13 09:52 | CT_ITS ---
STUDY: CTA CHEST REASON FOR EXAM: Female, 73 years old. hypoxia RADIATION DOSAGE (If Supplied By Facility): CTDIvol = ( 17.04 ) mGy, DLP = ( 1600.85 ) mGycm TECHNIQUE: The examination was performed with the intravenous administration of IV 100mL Isovue-370. Post-processing of the angiographic images was performed, with multiplanar reformation and 3D reconstruction. Individualized dose optimization techniques were used for this CT. COMPARISON: Comparison is made with prior CT scan of the thorax dated June 04, 2023. FINDINGS: Normal enhancement of the main pulmonary artery and right and left pulmonary arteries. Normal enhancement of the bilateral peripheral pulmonary arteries. There is no demonstrated pulmonary embolism. There is atherosclerotic calcification of the aortic arch with tortuosity. Mural thrombus is seen. There is no demonstrated aortic dissection. Normal heart and pericardium. No significant coronary artery calcification is seen. Mild enlargement of the mediastinal lymph nodes. Normal hilar regions. Normal visualized trachea and bronchi. The lungs are well expanded. Small bilateral pleural effusions left greater than right. Persistent 3.3 cm x 2.7 cm irregular though based nodule in the peripheral aspect of the left upper lobe. Diffuse emphysematous changes with centrilobular emphysema more prominent in the upper lobes. Normal chest wall structures. There are degenerative changes of thoracic spine. Normal visualized upper abdomen. CT/CTA Chest W/WO Contrast IMPRESSION: No definite pulmonary embolism is seen. Bilateral pleural effusions left greater than right with bibasilar atelectasis. Persistent irregular pleural-based nodular density in the left upper lobe. Correlation with a PET scan recommended. Mild enlargement of the mediastinal lymph nodes. Electronically Signed: Xu Adams MD at 15:15 EDT ,
--- NOTE | 2024-01-13 09:52 | CT_ITS ---
STUDY: CT ABDOMEN AND PELVIS WITH CONTRAST REASON FOR EXAM: Female, 73 years old. Recent diagnosed staghorn calculus RADIATION DOSAGE (If Supplied By Facility): CTDIvol = ( 17.04 ) mGy, DLP = ( 1600.85 ) mGycm TECHNIQUE: Transaxial images were obtained from the dome of the diaphragm to the symphysis pubis without oral contrast. IV 100mL Isovue-370 was administered. Sagittal and coronal images were reconstructed. Individualized dose optimization techniques were used for this CT. COMPARISON: Comparison is made with prior CT scan of the abdomen and pelvis dated January 07, 2024. FINDINGS: Small bilateral pleural effusions with bibasilar atelectasis and/or infiltration worse on the left side. Coronary artery calcification. There is decreased attenuation of the liver consistent with steatosis. The patient is status post cholecystectomy. Stable 2.1 cm x 1.8 cm hypodensity in the superior lateral aspect of the spleen. This may represent old injury. Normal pancreas. Normal bilateral adrenal glands. Stable nonobstructive right staghorn renal calculus. Stable left renal cyst. Normal visualized stomach. Normal small intestine. There are scattered colonic diverticula consistent with diverticulosis. There is non-visualization of the appendix. There is diffuse atherosclerotic calcification of the abdominal aorta and its major visceral branches, without a demonstrated aneurysm. Normal inferior vena cava. Normal retroperitoneum. A Cortes catheter seen within a decompressed urinary bladder. There is absence of the uterus consistent with a prior hysterectomy. Normal abdominal wall. Normal osseous structures. CT/Abdomen/Pelvis W IV Cont ONLY IMPRESSION: Stable examination. Electronically Signed: Xu Adams MD at 15:11 EDT ,
[2024-01-13 10:01] LABS: Bacteria 0 SEEN /hpf (None Seen); Mucous, Urine 0 SEEN /hpf (<or=2+)
[2024-01-13 10:03] LABS: Absolute Lymphocyte Count 1.02 X10^3/uL (0.83-4.51); Absolute Neutrophil Count 18.1 X10^3/uL (2.0-7.7); Basophil# 0.09 X10^3/uL; Basophil% 0.4 % (0-1); Eosinophil# 0.06 X10^3/uL; Eosinophils% 0.3 % (0-5); Hematocrit 34.4 % (37-47); Hemoglobin 10.8 g/dL (12.0-15.0); Lymphocyte # 1.02 X10^3/ul (0.83-4.51); Lymphocyte % 4.7 % (19-41); Mean Corp Hgb Conc 31.4 g/dL (32-36); Mean Corpuscular Hgb 30.3 pg (27.0-32.0); Mean Corpuscular Volume 96.6 fL (81-99); Mean Platelet Vol. 9.8 fl (6.2-12.0); NRBC Flagged by Analyzer 0 % (0-5); Neutrophil # 18.12 X10^3/uL (2.7-7.7); Neutrophil % 82.6 % (47-70); POSITIVE DIFFERENTIAL YES; Platelet Count 294 K/mm3 (150-450); RBC Distribution Width SD 49.7 fl (35.1-43.9); Red Blood Count 3.56 M/mm3 (4.2-5.4); White Blood Count 21.9 K/mm3 (4.4-11.0)
[2024-01-13] MEDS: 0.9% Normal Saline (1000mL) 1,000 ML 999 ML IV (10:03)
[2024-01-13 10:04] LABS: Color, Urine Brown (Yellow); Glucose, Dipstick 50 mg/dl (Normal); Ketone-Dipstick 5 mg/dl (Negative); Leukocyte Esterase-Dipstick 500 /ul (Negative); Nitrite-Dipstick Negative (Negative); Occult Blood-Urine 250 /ul (Negative); Protein-Dipstick 500 mg/dl (Negative); Specific Gravity, Urine 1.025 (1.002-1.030); Urine Bilirubin Dipstick Negative (Negative); Urine Clarity Turbid (Clear); Urine Urobilinogen Normal (Normal); Urine pH 6.5 (5.0 - 8.0)
[2024-01-13 10:11] LABS: Red Blood Cells-Urine > 100 SEEN /hpf (0-5); Squamous Epithelial Cells - UA 0-5 SEEN /hpf (5-10); White Blood Cells 10-25 SEEN /hpf (0-5)
[2024-01-13 10:12] LABS: Differential Indicated SCAN CRITERIA MET
[2024-01-13 10:21] LABS: International Normalized Ratio 1.5; Prothrombin Time (Protime)PT. 18.2 SECONDS (11.7-14.9)
[2024-01-13 10:22] LABS: Partial Thromboplast Time 31.9 Seconds (24.1-36.2)
[2024-01-13 10:30] LABS: ALB/GLOB Ratio 0.7 RATIO (0.9-2.4); AST(SGOT) 19 U/L (15-37); Alanine Aminotransfer ALT/SGPT 21 U/L (13-56); Albumin, Serum 2.8 g/dL (3.2-5.0); Alkaline Phosphatase 127 U/L (45-117); Anion Gap 4 (5-15); BUN 19 mg/dL (7-18); BUN/Creat Ratio 13.3 RATIO (10-20); Calcium,Total 9.2 mg/dL (8.5-10.1); Chloride 104 mmol/L (98-107); Creatinine, Serum 1.43 mg/dL (0.55-1.02); EST Glomerular Filtration Rate 38 mL/min (>60); Est Glom Filt Rate - Afr Amer 46 mL/min (>60); Glucose 166 mg/dL (74-106); Lactic Acid 1.2 mmol/L (0.4-1.9); Potassium 4.2 mmol/L (3.5-5.1); Protein, Total 6.8 g/dL (6.4-8.2); Sodium Level 137 mmol/L (136-145); Troponin-I HS 1887 pg/mL (3.0-54.0)
[2024-01-13] MEDS: Piperacil/Tazobactam 3.375 GM in 0.9% Normal Saline (50mL MB+) 50 ML IV (11:24)
--- NOTE | 2024-01-13 11:40 | RAD_ITS ---
STUDY: X-RAY CHEST REASON FOR EXAM: Female, 73 years old. Ams, sob TECHNIQUE: Single AP portable view of the chest. COMPARISON: Comparison is made with prior study dated January 06, 2024. FINDINGS: EKG electrodes are seen. Stable soft tissue density in the left lung apex. Neoplastic process should be ruled out. Increase in interstitial markings suggesting mild degree of vascular congestion and CHF. Blunting of the left costophrenic angle. There is mild cardiac enlargement. Normal mediastinum and rachael. Normal visualized pulmonary arteries. There is atherosclerotic calcification of the aortic arch with tortuosity. There are diffuse degenerative changes of the visualized thoracic spine. Normal visualized ribs, clavicles, and shoulders. There is no demonstrated abnormality of the visualized soft tissue structures of the upper abdomen. RAD/Chest 1 View (Portable) IMPRESSION: Increased interstitial markings suggest mild CHF. Stable left apical opacity. Electronically Signed: Xu Adams MD at 12:20 EDT ,
[2024-01-13] MEDS: Vancomycin HCl 1,250 MG in 0.9% Normal Saline (250mL Bag) 250 ML 167 MG IV (12:27)
--- NOTE | 2024-01-13 13:55 | RAD_ITS ---
STUDY: X-RAY CHEST REASON FOR EXAM: Female, 73 years old. Post attempt at IJ TECHNIQUE: Single AP portable view of the chest. COMPARISON: Comparison is made with prior study done earlier today. FINDINGS: EKG electrodes are seen. Stable appearance of the lungs. No evidence of pneumothorax. There is no demonstrated pleural abnormality. RAD/CXR for Line Placement IMPRESSION: Stable examination. No evidence of pneumothorax. Electronically Signed: Xu Adams MD at 14:12 EDT ,
[2024-01-13 15:10] LABS: Allen Test Positive; Base Excess 2 mmol/L (-2 to +2); Bicarbonate 26.6 mmol/L (22-26); Blood Gas Specimen Type ART; Comment 14/8; Mode Not entered; O2 Delivery Device BiPAP; PO2 74 mmHG (75-100); RR 16; SITE R Radial; SO2 95 % (95-99); Total Carbon Dioxide 28 mmol/L; pCO2 41.3 mmHg (35-45); pH 7.42 (7.35-7.45)
--- NOTE | 2024-01-13 15:30 | EDS_ITS ---
HPI History of Present Illness Chief Complaint: Unresponsive [facility] Medical History GI bleed Non-ST elevation [place] (NSTEMI) COVID-19 Acute [place] Atherosclerosis of coronary artery of [place] heart without angina pectoris Staghorn renal calculus Urinary tract infection Gross hematuria Acute dehydration Skin tag History of left breast cancer RIGHT ANKLE FRACTURE REPAIR EXCISION STOMACH TUMOR Parkinson disease Mixed connective tissue disease Polyarthropathy Lupus Hypertension COPD (chronic obstructive pulmonary disease) Asthma Arthritis Pulmonary nodules/lesions, multiple Tobacco use disorder Breast pain Osteopenia Malignant neoplasm of central portion of female breast Low bone density Home Medications ?Medication ?Instructions ?Recorded ?Last Taken ?Type tramadol 50 mg tablet 50 mg PO DAILY PRN Pain Score 1-10 03/02/14 06/06/23 06:30 History oxybutynin chloride 5 mg tablet 5 - 10 mg PO DAILY pain 01/25/20 06/06/23 08:45 History cholecalciferol (vitamin D3) 50 2,000 unit PO DAILY deficiency 07/27/20 06/06/23 08:45 History mcg (2,000 unit) capsule hydroxychloroquine 200 mg tablet 200 mg PO BIDCM arthritis 07/27/20 06/06/23 08:45 History aspirin 81 mg chewable tablet 81 mg PO DAILYCM Heart #0 tabs 06/06/23 06/06/23 08:45 Rx budesonide 160 mcg-glycopyr 9 2 inh inhalation BID breathing 07/05/23 Unknown Rx mcg-formot 4.8 mcg/actuation HFA #10.7 grams inhaler (Breztri Aerosphere) prednisone 10 mg tablet 10 mg PO DAILY PRN breathing 07/05/23 Unknown History atorvastatin 40 mg tablet 40 mg PO QHS #30 tabs 01/07/24 Unknown Rx carvedilol 6.25 mg tablet 6.25 mg PO BID #60 tabs 01/07/24 Unknown Rx clopidogrel 75 mg tablet (Plavix) 75 mg PO DAILY #30 tabs 01/07/24 Unknown Rx lisinopril 10 mg tablet 10 mg PO DAILY #30 tabs 01/07/24 Unknown Rx cefpodoxime 200 mg tablet 200 mg PO BID #20 tabs 01/08/24 Unknown Rx omeprazole 20 mg capsule,delayed 20 mg PO BID #120 caps 01/08/24 Unknown Rx release Allergy/AdvReac Type Severity Reaction Status Date / Time bromide salts (bromide) AdvReac Hives Verified 01/06/24 12:35 strawberry AdvReac Hives Verified 01/06/24 12:35 Family History Mother Arthritis Diabetes Hypertension Osteoporosis Father Arthritis Heart disease Sister Arthritis Breast cancer Diabetes Hypertension Son Diabetes Other Alzheimer disease Anemia Hyperlipidemia Thyroid disorder Surgical History History of coronary artery stent placement (01/07/24) History of lung biopsy History of tubal ligation History of lumpectomy Hx of cholecystectomy Social History household members: spouse Smoking Status: Current some day smoker tobacco type: cigarettes alcohol intake: never substance use type: does not use EXAM Physical Exam Const Vital Signs: 01/13/24 09:19 01/13/24 09:19 01/13/24 09:25 Temperature 97.7 F L Temperature Source Temporal Pulse Rate 87 Respiratory Rate 29 H Respiratory Effort Short of Breath Labored Accessory Muscle Use Respiratory Pattern Tachypnea Blood Pressure 154/90 H Blood Pressure Mean 111 Pulse Ox 98 Oxygen Delivery Method Non-Rebreather Non-Rebreather Fraction of Inspired Oxygen (FIO2) 01/13/24 09:25 01/13/24 10:07 01/13/24 10:19 Temperature 97.7 F L Temperature Source Temporal Pulse Rate 82 91 70 Respiratory Rate 30 H 28 H 30 H Respiratory Effort Respiratory Pattern Tachypnea Blood Pressure 154/90 H 144/73 H Blood Pressure Mean 111 96 Pulse Ox 97 99 98 Oxygen Delivery Method Non-Rebreather Bi-pap Fraction of Inspired Oxygen (FIO2) 30 01/13/24 10:38 01/13/24 10:45 01/13/24 11:00 Temperature Temperature Source Pulse Rate 71 76 79 Respiratory Rate 21 H 27 H 23 H Respiratory Effort Respiratory Pattern Blood Pressure 150/74 H 134/72 H Blood Pressure Mean 94 92 Pulse Ox 95 97 96 Oxygen Delivery Method Bi-pap Fraction of Inspired Oxygen (FIO2) 01/13/24 11:00 01/13/24 11:15 01/13/24 11:48 Temperature Temperature Source Pulse Rate 80 77 74 Respiratory Rate 30 H 27 H 23 H Respiratory Effort Respiratory Pattern Blood Pressure Blood Pressure Mean Pulse Ox 94 96 100 Oxygen Delivery Method Fraction of Inspired Oxygen (FIO2) 01/13/24 11:50 01/13/24 12:00 01/13/24 12:00 Temperature Temperature Source Pulse Rate 74 77 77 Respiratory Rate 27 H 33 H 29 H Respiratory Effort Respiratory Pattern Blood Pressure 134/72 H 126/69 H 126/69 H Blood Pressure Mean 90 88 83 Pulse Ox 97 97 96 Oxygen Delivery Method Bi-pap Fraction of Inspired Oxygen (FIO2) 01/13/24 12:15 01/13/24 12:30 01/13/24 12:39 Temperature Temperature Source Pulse Rate 74 71 74 Respiratory Rate 33 H 22 H 22 H Respiratory Effort Respiratory Pattern Tachypnea Blood Pressure Blood Pressure Mean Pulse Ox 96 98 98 Oxygen Delivery Method Fraction of Inspired Oxygen (FIO2) 0 01/13/24 12:45 01/13/24 13:00 01/13/24 13:00 Temperature Temperature Source Pulse Rate 71 73 74 Respiratory Rate 23 H 17 22 H Respiratory Effort Respiratory Pattern Blood Pressure 130/98 H Blood Pressure Mean 108 Pulse Ox 98 99 97 Oxygen Delivery Method Bi-pap Fraction of Inspired Oxygen (FIO2) 25 01/13/24 13:15 01/13/24 13:22 01/13/24 13:25 Temperature Temperature Source Pulse Rate 69 74 75 Respiratory Rate 25 H 35 H 27 H Respiratory Effort Respiratory Pattern Blood Pressure 85/71 L 130/98 H Blood Pressure Mean 78 108 Pulse Ox 96 97 96 Oxygen Delivery Method Fraction of Inspired Oxygen (FIO2) 01/13/24 13:30 01/13/24 13:45 01/13/24 14:00 Temperature Temperature Source Pulse Rate 74 76 76 Respiratory Rate 38 H 19 H 21 H Respiratory Effort Respiratory Pattern Blood Pressure 147/91 H Blood Pressure Mean 109 Pulse Ox 95 97 Oxygen Delivery Method Bi-pap Fraction of Inspired Oxygen (FIO2) 01/13/24 14:00 01/13/24 14:15 01/13/24 14:30 Temperature Temperature Source Pulse Rate 72 70 Respiratory Rate 30 H 26 H Respiratory Effort Respiratory Pattern Blood Pressure 129/67 H 147/91 H Blood Pressure Mean 84 109 Pulse Ox Oxygen Delivery Method Fraction of Inspired Oxygen (FIO2) 01/13/24 14:41 01/13/24 14:45 01/13/24 15:00 Temperature Temperature Source Pulse Rate 82 79 77 Respiratory Rate 23 H 19 H 25 H Respiratory Effort Respiratory Pattern Blood Pressure 147/66 H Blood Pressure Mean 90 Pulse Ox Oxygen Delivery Method Fraction of Inspired Oxygen (FIO2) 01/13/24 15:15 Temperature Temperature Source Pulse Rate 73 Respiratory Rate 28 H Respiratory Effort Respiratory Pattern Blood Pressure Blood Pressure Mean Pulse Ox Oxygen Delivery Method Fraction of Inspired Oxygen (FIO2) MDM MDM Lab Data Labs: Laboratory Results - last 24 hr 01/13/24 01/13/24 09:50 09:55 WBC 21.9 H RBC 3.56 L Hgb 10.8 L Hct 34.4 L MCV 96.6 MCH 30.3 MCHC 31.4 L RDW Std Deviation 49.7 H RDW Coeff of Nasir 14.0 Plt Count 294 MPV 9.8 Immature Gran % (Auto) 1.000 H Neut % (Auto) 82.6 H Lymph % (Auto) 4.7 L Bureau % (Auto) 11.0 H Eos % (Auto) 0.3 Baso % (Auto) 0.4 Absolute Neuts (auto) 18.1 H Absolute Lymphs (auto) 1.02 Nucleated RBC % 0 Diff Path Review August foll PT 18.2 H INR 1.5 APTT 31.9 Sodium 137 Potassium 4.2 Chloride 104 Carbon Dioxide 30.0 Anion Gap 4 L BUN 19 H Creatinine 1.43 H Estim Creat Clear Calc 36.50 Est GFR (MDRD) Af Amer 46 L Est GFR (MDRD) Non-Af 38 L BUN/Creatinine Ratio 13.3 Glucose 166 H Lactic Acid 1.2 Calcium 9.2 Total Bilirubin 0.60 AST 19 ALT 21 Alkaline Phosphatase 127 H Troponin I High Sens 1887 H* Total Protein 6.8 Albumin 2.8 L Globulin 4.0 Albumin/Globulin Ratio 0.7 L Urine Color Brown Urine Clarity Turbid Urine pH 6.5 Ur Specific [place] 1.025 Urine Protein 500 H Urine Glucose (UA) 50 H Urine Ketones 5 H Urine Occult Blood 250 H Urine Nitrite Negative Urine Bilirubin Negative Urine Urobilinogen Normal Ur Leukocyte Esterase 500 H Urine RBC > 100 SEEN Urine WBC 10-25 SEEN Ur Squamous Epith Cells 0-5 SEEN Urine Bacteria 0 SEEN Urine Mucus 0 SEEN ABG Data ABG results: ABG 01/13/24 01/13/24 09:35 15:07 Specimen Type ART ART Sample Site R Radial R Radial pH 7.14 L* 7.42 Bicarbonate Actual 29.4 H 26.6 H Total CO2 32 28 Base Excess 0 2 O2 Saturation 100 H 95 O2 % 15.0 30.0 ABG pCO2 86.7 H* 41.3 ABG pO2 245 H 74 L Ismael Test Positive Positive Respiration Rate 16 O2 Delivery Device NRB BiPAP Vent Mode Not entered Not entered Crit Call To/Read Back Yes Blood Gas Notified Whom manasa Blood Gas Notified Time 09:37:27 Clinical Comments 19/11 Radiography Diagnostic Testing: Clinical Impression(s) from Imaging Studies Brain CT 01/13/24 09:25 IMPRESSION: Chronic involutional changes of the brain. Electronically Signed: Xu Adams MD at 12:22 EDT , Abdomen/Pelvis CT 01/13/24 09:52 IMPRESSION: Stable examination. Electronically Signed: Xu Adams MD at 15:11 EDT , Chest CTA 01/13/24 09:52 IMPRESSION: No definite pulmonary embolism is seen. Bilateral pleural effusions left greater than right with bibasilar atelectasis. Persistent irregular pleural-based nodular density in the left upper lobe. Correlation with a PET scan recommended. Mild enlargement of the mediastinal lymph nodes. Electronically Signed: Xu Adams MD at 15:15 EDT , Chest X-Ray 01/13/24 11:40 IMPRESSION: Increased interstitial markings suggest mild CHF. Stable left apical opacity. Electronically Signed: Xu Adams MD at 12:20 EDT Reading Location ID and State: [id number] / [employer] , Service support , Chest X-Ray 01/13/24 13:55 IMPRESSION: Stable examination. No evidence of pneumothorax. Electronically Signed: Xu Adams MD at 14:12 EDT , Discharge Plan Triage Chief Complaint: Unresponsive ED Provider: Armando Bradley Dx/Rx/DC Orders Prescriptions: No Action prednisone 10 mg tablet 10 mg PO DAILY PRN (Reason: breathing) Rx Instructions: 4 tabs daily for 3 days, then 3 tabs daily for 3 days, then 2 tabs daily for 3 days, then 1 tab daily for 3 days Breztri Aerosphere 160-9-4.8 mcg/actuation HFA aerosol inhaler 2 inh inhalation BID Qty: 10.7 6RF tramadol 50 MG tablet 50 mg PO DAILY PRN (Reason: Pain Score 1-10) oxybutynin chloride 5 MG tablet 5 - 10 mg PO DAILY hydroxychloroquine 200 MG tablet 200 mg PO BIDCM cholecalciferol (vitamin D3) 2,000 UNIT capsule 2,000 unit PO DAILY aspirin 81 mg Tablet,Chewable 81 mg PO DAILYCM Qty: 0 0RF atorvastatin 40 mg Tablet 40 mg PO QHS Qty: 30 0RF carvedilol 6.25 mg Tablet 6.25 mg PO BID Qty: 60 0RF lisinopril 10 mg Tablet 10 mg PO DAILY Qty: 30 0RF clopidogrel [Plavix] 75 mg tablet 75 mg PO DAILY Qty: 30 0RF Rx Instructions: start on 01/07/24 cefpodoxime 200 mg tablet 200 mg PO BID Qty: 20 0RF Rx Instructions: must administer with a meal/food omeprazole 20 mg capsule,delayed release(DR/EC) 20 mg PO BID Qty: 120 0RF Primary Care Provider: Haritha Alonso Referrals: Haritha Alonso NP-C [Primary Care Provider] - Print Language: [place]
--- NOTE | 2024-01-13 17:24 | PCM.HP.STD ---
HPI - General General Date of Admission: 01/13/24 Date of Service: 01/13/24 Chief Complaint: Shortness of breath HPI Narrative History was predominantly taken from patient's and daughter who was at the bedside. Patient contributed minimally to history. ZEINAB HULL, is a 73 F with a significant history of tobacco abuse; COPD; breast cancer s/p lumpectomy and chemoradiation; who was admitted to [facility] about a week ago for a non-STEMI and had a stent placed; and recent COVID-19 infection presenting to the emergency department with shortness of breath that started the same day of presentation. Associated with her symptoms is altered mental status. Per patient's who provided history patient was not appropriately answering questions; and the patient was breathing with her abdominal muscles in an irregular pattern. Further, patient has been having a thick productive cough. Further, patient has lethargy. Reportedly on presentation patient oxygen saturation was 70% and she was having agonal breathing and required bagging. Her eyes were pinpoint. Reportedly she has ordered tramadol that she rarely takes. At the emergency department patient required BiPAP but she was later transitioned to nasal cannula oxygen. Family reports that at home patient is on 4 L nasal cannula oxygen although she has been asked to stepdown her nasal cannula oxygen; and indeed the initial prescription of 4 L nasal might have been a mistake; and patient required less oxygen at baseline. [facility] Medical History GI bleed Non-ST elevation WI (NSTEMI) COVID-19 Acute WI Atherosclerosis of coronary artery of [place] heart without angina pectoris [place] renal calculus Urinary tract infection Gross hematuria Acute dehydration Skin tag History of left breast cancer RIGHT ANKLE FRACTURE REPAIR EXCISION STOMACH TUMOR Parkinson disease Mixed connective tissue disease Polyarthropathy Lupus Hypertension COPD (chronic obstructive pulmonary disease) Asthma Arthritis Pulmonary nodules/lesions, multiple Tobacco use disorder Breast pain Osteopenia Malignant neoplasm of central portion of female breast Low bone density Home Medications ?Medication ?Instructions ?Recorded ?Last Taken ?Type tramadol 50 mg tablet 50 mg PO DAILY PRN Pain Score 1-10 03/02/14 06/06/23 06:30 History oxybutynin chloride 5 mg tablet 5 - 10 mg PO DAILY pain 01/25/20 06/06/23 08:45 History cholecalciferol (vitamin D3) 50 2,000 unit PO DAILY deficiency 07/27/20 06/06/23 08:45 History mcg (2,000 unit) capsule hydroxychloroquine 200 mg tablet 200 mg PO BIDCM arthritis 07/27/20 06/06/23 08:45 History aspirin 81 mg chewable tablet 81 mg PO DAILYCM Heart #0 tabs 06/06/23 06/06/23 08:45 Rx budesonide 160 mcg-glycopyr 9 2 inh inhalation BID breathing 07/05/23 Unknown Rx mcg-formot 4.8 mcg/actuation HFA #10.7 grams inhaler (Breztri Aerosphere) prednisone 10 mg tablet 10 mg PO DAILY PRN breathing 07/05/23 Unknown History atorvastatin 40 mg tablet 40 mg PO QHS #30 tabs 01/07/24 Unknown Rx carvedilol 6.25 mg tablet 6.25 mg PO BID #60 tabs 01/07/24 Unknown Rx clopidogrel 75 mg tablet (Plavix) 75 mg PO DAILY #30 tabs 01/07/24 Unknown Rx lisinopril 10 mg tablet 10 mg PO DAILY #30 tabs 01/07/24 Unknown Rx cefpodoxime 200 mg tablet 200 mg PO BID #20 tabs 01/08/24 Unknown Rx omeprazole 20 mg capsule,delayed 20 mg PO BID #120 caps 01/08/24 Unknown Rx release Allergy/AdvReac Type Severity Reaction Status Date / Time bromide salts (bromide) AdvReac Hives Verified 01/06/24 12:35 strawberry AdvReac Hives Verified 01/06/24 12:35 Family History Mother Arthritis Diabetes Hypertension Osteoporosis Father Arthritis Heart disease Sister Arthritis Breast cancer Diabetes Hypertension Son Diabetes Other Alzheimer disease Anemia Hyperlipidemia Thyroid disorder Surgical History History of coronary artery stent placement (01/07/24) History of lung biopsy History of tubal ligation History of lumpectomy Hx of cholecystectomy Social History household members: spouse Smoking Status: Current some day smoker tobacco type: cigarettes alcohol intake: never substance use type: does not use ROS ROS Narrative Pertinent positives and pertinent negatives as noted in HPI. All other systems were reviewed and are negative Vital Signs Vital Signs Vital Signs: 01/13/24 09:19 01/13/24 09:19 01/13/24 09:25 Temperature 97.7 F L Temperature Source Temporal Pulse Rate 87 Respiratory Rate 29 H Respiratory Effort Short of Breath Labored Accessory Muscle Use Respiratory Pattern Tachypnea Blood Pressure 154/90 H Blood Pressure Mean 111 Blood Pressure Source Blood Pressure Position Blood Pressure Location Pulse Ox 98 Oxygen Delivery Method Non-Rebreather Non-Rebreather Oxygen Flow Rate (L/min) Fraction of Inspired Oxygen (FIO2) 01/13/24 09:25 01/13/24 10:07 01/13/24 10:19 Temperature 97.7 F L Temperature Source Temporal Pulse Rate 82 91 70 Respiratory Rate 30 H 28 H 30 H Respiratory Effort Respiratory Pattern Tachypnea Blood Pressure 154/90 H 144/73 H Blood Pressure Mean 111 96 Blood Pressure Source Blood Pressure Position Blood Pressure Location Pulse Ox 97 99 98 Oxygen Delivery Method Non-Rebreather Bi-pap Oxygen Flow Rate (L/min) Fraction of Inspired Oxygen (FIO2) 30 01/13/24 10:38 01/13/24 10:45 01/13/24 11:00 Temperature Temperature Source Pulse Rate 71 76 79 Respiratory Rate 21 H 27 H 23 H Respiratory Effort Respiratory Pattern Blood Pressure 150/74 H 134/72 H Blood Pressure Mean 94 92 Blood Pressure Source Blood Pressure Position Blood Pressure Location Pulse Ox 95 97 96 Oxygen Delivery Method Bi-pap Oxygen Flow Rate (L/min) Fraction of Inspired Oxygen (FIO2) 01/13/24 11:00 01/13/24 11:15 01/13/24 11:48 Temperature Temperature Source Pulse Rate 80 77 74 Respiratory Rate 30 H 27 H 23 H Respiratory Effort Respiratory Pattern Blood Pressure Blood Pressure Mean Blood Pressure Source Blood Pressure Position Blood Pressure Location Pulse Ox 94 96 100 Oxygen Delivery Method Oxygen Flow Rate (L/min) Fraction of Inspired Oxygen (FIO2) 01/13/24 11:50 01/13/24 12:00 01/13/24 12:00 Temperature Temperature Source Pulse Rate 74 77 77 Respiratory Rate 27 H 33 H 29 H Respiratory Effort Respiratory Pattern Blood Pressure 134/72 H 126/69 H 126/69 H Blood Pressure Mean 90 88 83 Blood Pressure Source Blood Pressure Position Blood Pressure Location Pulse Ox 97 97 96 Oxygen Delivery Method Bi-pap Oxygen Flow Rate (L/min) Fraction of Inspired Oxygen (FIO2) 10/07/24 12:15 01/13/24 12:30 01/13/24 12:39 Temperature Temperature Source Pulse Rate 74 71 74 Respiratory Rate 33 H 22 H 22 H Respiratory Effort Respiratory Pattern Tachypnea Blood Pressure Blood Pressure Mean Blood Pressure Source Blood Pressure Position Blood Pressure Location Pulse Ox 96 98 98 Oxygen Delivery Method Oxygen Flow Rate (L/min) Fraction of Inspired Oxygen (FIO2) 0 01/13/24 12:45 01/13/24 13:00 01/13/24 13:00 Temperature Temperature Source Pulse Rate 71 73 74 Respiratory Rate 23 H 17 22 H Respiratory Effort Respiratory Pattern Blood Pressure 130/98 H Blood Pressure Mean 108 Blood Pressure Source Blood Pressure Position Blood Pressure Location Pulse Ox 98 99 97 Oxygen Delivery Method Bi-pap Oxygen Flow Rate (L/min) Fraction of Inspired Oxygen (FIO2) 25 01/13/24 13:15 01/13/24 13:22 01/13/24 13:25 Temperature Temperature Source Pulse Rate 69 74 75 Respiratory Rate 25 H 35 H 27 H Respiratory Effort Respiratory Pattern Blood Pressure 85/71 L 130/98 H Blood Pressure Mean 78 108 Blood Pressure Source Blood Pressure Position Blood Pressure Location Pulse Ox 96 97 96 Oxygen Delivery Method Oxygen Flow Rate (L/min) Fraction of Inspired Oxygen (FIO2) 01/13/24 13:30 01/13/24 13:45 01/13/24 14:00 Temperature Temperature Source Pulse Rate 74 76 76 Respiratory Rate 38 H 19 H 21 H Respiratory Effort Respiratory Pattern Blood Pressure 147/91 H Blood Pressure Mean 109 Blood Pressure Source Blood Pressure Position Blood Pressure Location Pulse Ox 95 97 Oxygen Delivery Method Bi-pap Oxygen Flow Rate (L/min) Fraction of Inspired Oxygen (FIO2) 01/13/24 14:00 01/13/24 14:15 01/13/24 14:30 Temperature Temperature Source Pulse Rate 72 70 Respiratory Rate 30 H 26 H Respiratory Effort Respiratory Pattern Blood Pressure 129/67 H 147/91 H Blood Pressure Mean 84 109 Blood Pressure Source Blood Pressure Position Blood Pressure Location Pulse Ox Oxygen Delivery Method Oxygen Flow Rate (L/min) Fraction of Inspired Oxygen (FIO2) 01/13/24 14:41 01/13/24 14:45 01/13/24 15:00 Temperature Temperature Source Pulse Rate 82 79 77 Respiratory Rate 23 H 19 H 25 H Respiratory Effort Respiratory Pattern Blood Pressure 147/66 H Blood Pressure Mean 90 Blood Pressure Source Blood Pressure Position Blood Pressure Location Pulse Ox Oxygen Delivery Method Oxygen Flow Rate (L/min) Fraction of Inspired Oxygen (FIO2) 01/13/24 15:15 01/13/24 15:30 01/13/24 15:44 Temperature 98.7 F Temperature Source Pulse Rate 73 76 75 Respiratory Rate 28 H 19 H 27 H Respiratory Effort Respiratory Pattern Blood Pressure 141/77 H 141/77 H Blood Pressure Mean 95 98 Blood Pressure Source Blood Pressure Position Blood Pressure Location Pulse Ox 96 Oxygen Delivery Method Oxygen Flow Rate (L/min) Fraction of Inspired Oxygen (FIO2) 01/13/24 15:45 01/13/24 16:00 01/13/24 16:36 Temperature 96.7 F L Temperature Source Temporal Pulse Rate 78 76 71 Respiratory Rate 29 H 33 H 20 H Respiratory Effort Respiratory Pattern Blood Pressure 149/67 H Blood Pressure Mean 94 Blood Pressure Source Monitor Blood Pressure Position Semi-Fowlers Blood Pressure Location Right Arm Pulse Ox 93 97 98 Oxygen Delivery Method Nasal Cannula Oxygen Flow Rate (L/min) 2 Fraction of Inspired Oxygen (FIO2) 01/13/24 17:08 Temperature Temperature Source Pulse Rate Respiratory Rate Respiratory Effort Normal Non-Labored Respiratory Pattern Blood Pressure Blood Pressure Mean Blood Pressure Source Blood Pressure Position Blood Pressure Location Pulse Ox Oxygen Delivery Method Nasal Cannula Oxygen Flow Rate (L/min) 2.5 Fraction of Inspired Oxygen (FIO2) Weight Weight: 83.007 kg Body Mass Index (BMI) 32.4 Physical Exam Narrative Physical exam: General: Well-nourished, well-developed. Head: Normocephalic, atraumatic, no tenderness Eyes: Vision is grossly intact. Pinpoint pupils. EOMI ENT, no trauma, moist mucous membranes, no rhinorrhea Neck: Nontender, No thyromegaly. CVS: Regular rate and rhythm. S1-S2 present. No murmur, gallop or rub. Respiratory : Diminished breath sounds bilaterally, anterior and posterior. Abdomen: Soft, nontender, nondistended, normal bowel sounds, no masses : Deferred Back: Nontender, no CVA tenderness, no midline spinal tenderness, deformities, step-offs Extremities: Nontender full range of motion, no trauma Skin: Normal color, no trauma, abrasions Neuro: Alert, oriented, cranial nerves II through XII grossly intact. Psychiatry: Normal mood. Normal affect. Not depressed. Not anxious. Results Lab / Micro Data 01/13/24 09:50 01/13/24 09:50 Labs: Laboratory Results - last 24 hr 01/13/24 09:50: WBC 21.9 H, RBC 3.56 L, Hgb 10.8 L, Hct 34.4 L, MCV 96.6, MCH 30.3, MCHC 31.4 L, RDW Std Deviation 49.7 H, RDW Coeff of Nasir 14.0, Plt Count 294, MPV 9.8, Immature Gran % (Auto) 1.000 H, Neut % (Auto) 82.6 H, Lymph % (Auto) 4.7 L, [place] % (Auto) 11.0 H, Eos % (Auto) 0.3, Baso % (Auto) 0.4, Absolute Neuts (auto) 18.1 H, Absolute Lymphs (auto) 1.02, Nucleated RBC % 0, Diff Path Review August, PT 18.2 H, INR 1.5, APTT 31.9, Sodium 137, Potassium 4.2, Chloride 104, Carbon Dioxide 30.0, Anion Gap 4 L, BUN 19 H, Creatinine 1.43 H, Estim Creat Clear Calc 36.50, Est GFR (MDRD) Af Amer 46 L, Est GFR (MDRD) Non-Af 38 L, BUN/Creatinine Ratio 13.3, Glucose 166 H, Lactic Acid 1.2, Calcium 9.2, Total Bilirubin 0.60, AST 19, ALT 21, Alkaline Phosphatase 127 H, Troponin I High Sens 1887 H*, Total Protein 6.8, Albumin 2.8 L, Globulin 4.0, Albumin/Globulin Ratio 0.7 L 01/13/24 09:55: Urine Color Brown, Urine Clarity Turbid, Urine pH 6.5, Ur Specific [place] 1.025, Urine Protein 500 H, Urine Glucose (UA) 50 H, Urine Ketones 5 H, Urine Occult Blood 250 H, Urine Nitrite Negative, Urine Bilirubin Negative, Urine Urobilinogen Normal, Ur Leukocyte Esterase 500 H, Urine RBC > 100 SEEN, Urine WBC 10-25 SEEN, Ur Squamous Epith Cells 0-5 SEEN, Urine Bacteria 0 SEEN, Urine Mucus 0 SEEN ABG Data ABG results: ABG 01/13/24 01/13/24 09:35 15:07 Specimen Type ART ART Sample Site R Radial R Radial pH 7.14 L* 7.42 Bicarbonate Actual 29.4 H 26.6 H Total CO2 32 28 Base Excess 0 2 O2 Saturation 100 H 95 O2 % 15.0 30.0 ABG pCO2 86.7 H* 41.3 ABG pO2 245 H 74 L Ismael Test Positive Positive Respiration Rate 16 O2 Delivery Device NRB BiPAP Vent Mode Not entered Not entered Crit Call To/Read Back Yes Blood Gas Notified Whom manasa Blood Gas Notified Time 09:37:27 Clinical Comments 19/11 Imaging Radiology Impression Brain CT 01/13/24 09:25 IMPRESSION: Chronic involutional changes of the brain. Electronically Signed: uX Adams MD at 12:22 EDT , Abdomen/Pelvis CT 01/13/24 09:52 IMPRESSION: Stable examination. Electronically Signed: Xu Adams MD at 15:11 EDT , Chest CTA 01/13/24 09:52 IMPRESSION: No definite pulmonary embolism is seen. Bilateral pleural effusions left greater than right with bibasilar atelectasis. Persistent irregular pleural-based nodular density in the left upper lobe. Correlation with a PET scan recommended. Mild enlargement of the mediastinal lymph nodes. Electronically Signed: Xu Adams MD at 15:15 EDT , Chest X-Ray 01/13/24 11:40 IMPRESSION: Increased interstitial markings suggest mild CHF. Stable left apical opacity. Electronically Signed: Xu Adams MD at 12:20 EDT , Chest X-Ray 01/13/24 13:55 IMPRESSION: Stable examination. No evidence of pneumothorax. Electronically Signed: Xu Adams MD at 14:12 EDT , Assessment & Plan Assessment/Plan (1) Pneumonia: QUALIFIERS: Pneumonia type: due to unspecified organism Laterality: bilateral Lung location: unspecified part of lung Qualified Code(s): J18.9 - Pneumonia, unspecified organism (2) Acute hypercapnic respiratory failure: (3) COPD exacerbation: (4) Elevated troponin I level: (5) Acute metabolic encephalopathy: (6) Acute on chronic respiratory failure with hypoxia and hypercapnia: (7) AUGUSTINA (acute kidney injury): PLAN: Plan Acute on chronic respiratory failure pCO2 on presentation was 86.7. Improved to normal with BiPAP. pH on presentation was 7.14. Improved to 7.42 on BiPAP. On presentation patient required BiPAP, improved. Family requested a CPAP at night. Likely component of sleep apnea. CPAP ordered. COPD exacerbation Prednisone ordered. DuoNeb [id number] ordered. As needed albuterol ordered. Titrate oxygen as needed. Bilateral pneumonia CTA chest was independently interpreted with results Bilateral pleural effusions left greater than right with bibasilar atelectasis; Persistent irregular pleural-based nodular density in the left upper lobe; Mild enlargement of the mediastinal lymph nodes. Agrees with delayed interpretation above. Radiologist recommended a PET scan. Per patient she has been having lymph adenopathy on and off and she follows up with Dr. Hogue, oncologist. Received vancomycin and Zosyn in the emergency department. Levaquin and ceftriaxone ordered for now. Will get MRSA nasal screen. Labs reviewed. White count of 21.9 on presentation. White count 5 days before presentation was 13.6. Trend. On reconcile home medications including prednisone. Elevated troponin 1 level/CAD Troponin 1 level was in the thousands (1887). Her troponin a few days back was 19,584. Continue dual antiplatelet therapy. Trend troponin Denies chest pain. Continue dual antiplatelet therapy Acute metabolic encephalopathy Improved CT head with no acute pathology pelvic chronic involutional changes Clinical monitoring AUGUSTINA Baseline creatinine is below 1. On presentation creatinine was 1.43. Avoid nephrotoxic's. Trend BMP. Gentle IV hydration ordered. DVT prophylaxis: Subcutaneous Lovenox ordered Advance care planning: Discussed with patient and family advanced directives as well as CODE STATUS. Explained various CODE STATUS: FULL CODE, DNR CCA, DNR CCA with no intubation, and DNR CC- and what each meant. Patient elected to be a full code with CPR and intubation if warranted. Order was placed. Patient's ; and daughter Helen GOODE. Time spent on discussion 16 minutes. Time spent in the patient's overall evaluation,decision-making process, review of diagnostic data, adjustment of management, discussion with other providers, nursing and ancillary staff involved in patient's care documentation, 75 minutes. Charges/Coding Visit Charges Inpatient E&M: 36360 Init Hosp L3 Procedures Hospitalists Procedures: [id number] Advncd Care Plan 30 Min
[2024-01-13 18:11] LABS: Troponin-I HS 2109 pg/mL (3.0-54.0)
[2024-01-13] MEDS: 0.9% Normal Saline (1000mL) 1,000 ML 75 ML IV (18:20)
[2024-01-13] MEDS: predniSONE 20 MG Tablet 40 MG PO (18:22)
[2024-01-13] MEDS: levoFLOXacin IV 750 MG/150 ML BAG 100 MG IV (18:25)
[2024-01-13] MEDS: Ipratropium/Albuterol Sulfate 3 ML AMPUL.NEB INHALATION ×2 (18:40→22:37)
[2024-01-13 20:49] LABS: Troponin-I HS 1942 pg/mL (3.0-54.0)
[2024-01-14] VITALS (9 sets, daily range): BP systolic 144–169; BP diastolic 71–81; PULSE 63–84; RESP 12–21; TEMP 36.4–37; O2SAT 92–100
[2024-01-14 00:01] LABS: Troponin-I HS 2055 pg/mL (3.0-54.0)
[2024-01-14 04:56] LABS: Absolute Lymphocyte Count 0.82 X10^3/uL (0.83-4.51); Absolute Neutrophil Count 9.1 X10^3/uL (2.0-7.7); Basophil# 0.04 X10^3/uL; Basophil% 0.4 % (0-1); Hematocrit 27.2 % (37-47); Hemoglobin 8.8 g/dL (12.0-15.0); Lymphocyte # 0.82 X10^3/ul (0.83-4.51); Lymphocyte % 7.9 % (19-41); Mean Corp Hgb Conc 32.4 g/dL (32-36); Mean Corpuscular Hgb 30.2 pg (27.0-32.0); Mean Corpuscular Volume 93.5 fL (81-99); Mean Platelet Vol. 10.2 fl (6.2-12.0); Monocyte# 0.37 X10^3/uL; Monocyte% 3.6 % (0-10); NRBC Flagged by Analyzer 0 % (0-5); Neutrophil # 9.06 X10^3/uL (2.7-7.7); Neutrophil % 86.9 % (47-70); Platelet Count 244 K/mm3 (150-450); RBC Distribution Width CV 13.9 % (11.6-14.6); RBC Distribution Width SD 47.3 fl (35.1-43.9); Red Blood Count 2.91 M/mm3 (4.2-5.4); White Blood Count 10.4 K/mm3 (4.4-11.0)
[2024-01-14 05:13] LABS: Anion Gap 4 (5-15); BUN 18 mg/dL (7-18); BUN/Creat Ratio 20.1 RATIO (10-20); Calcium,Total 8.7 mg/dL (8.5-10.1); Chloride 102 mmol/L (98-107); EST Glomerular Filtration Rate 66 mL/min (>60); Est Glom Filt Rate - Afr Amer 79 mL/min (>60); Estimated Creatinine Clearance 56.81 ml/min; Glucose 141 mg/dL (74-106); Sodium Level 137 mmol/L (136-145)
[2024-01-14] MEDS: Ipratropium/Albuterol Sulfate 3 ML AMPUL.NEB INHALATION ×3 (07:36→20:05)
[2024-01-14] MEDS: Enoxaparin 40 MG/0.4 ML Syringe SC (10:19)
[2024-01-14] MEDS: Ceftriaxone 2 GM in 0.9% Normal Saline (50mL MB+) 50 ML IV (10:19)
[2024-01-14] MEDS: predniSONE 20 MG Tablet 40 MG PO (10:20)
--- NOTE | 2024-01-14 10:33 | PN.HOSP_ITS ---
Subjective Subjective Doing better today, off of BiPAP this morning on her baseline 3 to 4 L nasal cannula Objective Data Objective Data Vital Signs: Vital Signs Temp Pulse Resp BP Pulse Ox O2 Del Method O2 Flow Rate 98.5 F 81 18 156/81 H 97 Nasal Cannula 3 01/14/24 08:30 01/14/24 08:30 01/14/24 08:30 01/14/24 08:30 01/14/24 08:30 01/14/24 08:30 01/14/24 08:30 FiO2 30 01/14/24 02:00 Oxygen Flow Rate (L/min) 3 Oxygen Delivery Method Nasal Cannula Weight: 183 lb Body Mass Index (BMI) 32.4 Intake & Output: Intake and Output for Last 24 Hours 01/13/24 01/14/24 01/15/24 03:59 03:59 03:59 Intake Total 1481.25 / 1481.25 993.75 / 993.75 Output Total 650 / 650 450 / 450 Balance 831.25 / 831.25 543.75 / 543.75 Lab / Micro Data 01/14/24 04:15 01/14/24 04:15 Labs: Laboratory Results - last 24 hr 01/13/24 09:50: Diff Path Review August01/13/24 17:25: Troponin I High Sens 9 H* 01/13/24 20:10: Troponin I High Sens 2 H* 01/13/24 23:30: Troponin I High Sens 2054 H* 01/14/24 04:15: WBC 10.4, RBC 2.91 L, Hgb 8.8 L, Hct 27.2 L, MCV 93.5, MCH 30.2, MCHC 32.4, RDW Std Deviation 47.3 H, RDW Coeff of Nasir 13.9, Plt Count 244, MPV 10.2, Immature Gran % (Auto) 1.200 H, Neut % (Auto) 86.9 H, Lymph % (Auto) 7.9 L , [place] % (Auto) 3.6, Eos % (Auto) 0.0, Baso % (Auto) 0.4, Absolute Neuts (auto) 9.1 H, Absolute Lymphs (auto) 0.82 L, Nucleated RBC % 0, Sodium 137, Potassium 4.0, Chloride 102, Carbon Dioxide 31.0, Anion Gap 4 L, BUN 18, Creatinine 0.90, Estim Creat Clear Calc 56.81, Est GFR (MDRD) Af Amer 79, Est GFR (MDRD) Non-Af 66, BUN/Creatinine Ratio 20.1 H, Glucose 141 H, Calcium 8.7 Micro: Microbiology 01/13/24 17:30 Urine Catheter - Catheter Legionella Antigen - Final 01/13/24 17:30 Urine Catheter - Catheter Streptococcus pneumoniae Antigen (M - Final ABG Data ABG results: ABG 01/13/24 15:07 Specimen Type ART Sample Site R Radial pH 7.42 Bicarbonate Actual 26.6 H Total CO2 28 Base Excess 2 O2 Saturation 95 O2 % 30.0 ABG pCO2 41.3 ABG pO2 74 L Ismael Test Positive Respiration Rate 16 O2 Delivery Device BiPAP Vent Mode Not entered Clinical Comments 19/11 Radiography Diagnostic Testing: Radiology Impression Brain CT 01/13/24 09:25 IMPRESSION: Chronic involutional changes of the brain. Electronically Signed: Xu Adams MD at 12:22 EDT , Abdomen/Pelvis CT 01/13/24 09:52 IMPRESSION: Stable examination. Electronically Signed: Xu Adams MD at 15:11 EDT , Chest CTA 01/13/24 09:52 IMPRESSION: No definite pulmonary embolism is seen. Bilateral pleural effusions left greater than right with bibasilar atelectasis. Persistent irregular pleural-based nodular density in the left upper lobe. Correlation with a PET scan recommended. Mild enlargement of the mediastinal lymph nodes. Electronically Signed: Xu Adams MD at 15:15 EDT , Chest X-Ray 01/13/24 11:40 IMPRESSION: Increased interstitial markings suggest mild CHF. Stable left apical opacity. Electronically Signed: Xu Adams MD at 12:20 EDT , Chest X-Ray 01/13/24 13:55 IMPRESSION: Stable examination. No evidence of pneumothorax. Electronically Signed: Xu Adams MD at 14:12 EDT , Physical Exam Narrative General: Alert, Oriented x3, Cooperative, No apparent distress HEENT: Atraumatic, PERRLA, EOMI, Normocephalic Oral: Moist Mucosa Neck: Supple, No JVD Lungs: Diminished, poor air movement, No rhonchi, No wheeze, No rales Cardiovascular: Regular rate, Regular Rhythm, Normal S1, Normal S2, No murmurs Abdomen: Soft, Non Tender, Non-Distended, No Hepato-splenomegaly Genitourinary: Cortes is in place with significant hematuria Extremities: No edema, Capillary Refill Less than 3 Seconds Skin: No rashes, No breakdown Musculoskeletal: No Tenderness to Palpation of Joints or Extremities Neurological: No focal neurological deficits, Motor Exam 5/5 strength throughout, Sensory exam intact to light touch and pain Psych/Mental Status: Normal Affect, Appropriate Assessment & Plan Assessment/Plan (1) Pneumonia: QUALIFIERS: Pneumonia type: due to unspecified organism L aterality: bilateral Lung location: unspecified part of lung Qualified Code(s): J18.9 - Pneumonia, unspecified organism (2) Acute hypercapnic respiratory failure: (3) COPD exacerbation: (4) Acute metabolic encephalopathy: (5) AUGUSTINA (acute kidney injury): PLAN: Plan Acute on chronic respiratory failure pCO2 on presentation was 86.7. Improved to normal with BiPAP. pH on presentation was 7.14. Improved to 7.42 on BiPAP. On presentation patient required BiPAP, improved. Family requested a CPAP at night. Likely component of sleep apnea. CPAP ordered. COPD exacerbation Prednisone ordered. DuoNeb [id number] ordered. As needed albuterol ordered. Titrate oxygen as needed. Bilateral pneumonia CTA chest was independently interpreted with results Bilateral pleural effusions left greater than right with bibasilar atelectasis; Persistent irregular pleural-based nodular density in the left upper lobe; Mild enlargement of the mediastinal lymph nodes. Agrees with delayed interpretation above. Radiologist recommended a PET scan. Per patient she has been having lymph adenopathy on and off and she follows up with Dr. Hogue, oncologist. Received vancomycin and Zosyn in the emergency department. Levaquin and ceftriaxone ordered for now. Will get MRSA nasal screen. Labs reviewed. White count of 21.9 on presentation. White count 5 days before presentation was 13.6. Trend. On reconcile home medications including prednisone. Elevated troponin 1 level/CAD Troponin 1 level was in the thousands (1887). Her troponin a few days back was 19,584. Continue dual antiplatelet therapy. Trend troponin Denies chest pain. Continue dual antiplatelet therapy Acute metabolic encephalopathy Improved CT head with no acute pathology pelvic chronic involutional changes Clinical monitoring AUGUSTINA Baseline creatinine is below 1. On presentation creatinine was 1.43. Avoid nephrotoxic's. Trend BMP. Gentle IV hydration ordered. DVT prophylaxis: Subcutaneous Lovenox ordered Advance care planning: Discussed with patient and family advanced directives as well as CODE STATUS. Explained various CODE STATUS: FULL CODE, DNR CCA, DNR CCA with no intubation, and DNR CC- and what each meant. Patient elected to be a full code with CPR and intubation if warranted. Order was placed. Patient's ; and daughter Helen GOODE. Time spent on discussion 16 minutes. Time spent in the patient's overall evaluation,decision-making process, review of diagnostic data, adjustment of management, discussion with other providers, nursing and ancillary staff involved in patient's care documentation, 75 minutes.
--- NOTE | 2024-01-14 10:33 | PCM.PN.HOSP ---
Subjective Subjective Doing better today, off of BiPAP this morning on her baseline 3 to 4 L nasal cannula Objective Data Objective Data Vital Signs: Vital Signs Temp Pulse Resp BP Pulse Ox O2 Del Method O2 Flow Rate 98.5 F 81 18 156/81 H 97 Nasal Cannula 3 01/14/24 08:30 01/14/24 08:30 01/14/24 08:30 01/14/24 08:30 01/14/24 08:30 01/14/24 08:30 01/14/24 08:30 FiO2 30 01/14/24 02:00 Oxygen Flow Rate (L/min) 3 Oxygen Delivery Method Nasal Cannula Weight: 183 lb Body Mass Index (BMI) 32.4 Intake & Output: Intake and Output for Last 24 Hours 01/13/24 01/14/24 01/15/24 03:59 03:59 03:59 Intake Total 1481.25 / 1481.25 993.75 / 993.75 Output Total 650 / 650 450 / 450 Balance 831.25 / 831.25 543.75 / 543.75 Lab / Micro Data 01/14/24 04:15 01/14/24 04:15 Labs: Laboratory Results - last 24 hr 01/13/24 09:50: Diff Path Review August01/13/24 17:25: Troponin I High Sens 9 H* 01/13/24 20:10: Troponin I High Sens 2 H* 01/13/24 23:30: Troponin I High Sens 2054 H* 01/14/24 04:15: WBC 10.4, RBC 2.91 L, Hgb 8.8 L, Hct 27.2 L, MCV 93.5, MCH 30.2, MCHC 32.4, RDW Std Deviation 47.3 H, RDW Coeff of Nasir 13.9, Plt Count 244, MPV 10.2, Immature Gran % (Auto) 1.200 H, Neut % (Auto) 86.9 H, Lymph % (Auto) 7.9 L, [place]ent % (Auto) 3.6, Eos % (Auto) 0.0, Baso % (Auto) 0.4, Absolute Neuts (auto) 9.1 H, Absolute Lymphs (auto) 0.82 L, Nucleated RBC % 0, Sodium 137, Potassium 4.0, Chloride 102, Carbon Dioxide 31.0, Anion Gap 4 L, BUN 18, Creatinine 0.90, Estim Creat Clear Calc 56.81, Est GFR (MDRD) Af Amer 79, Est GFR (MDRD) Non-Af 66, BUN/Creatinine Ratio 20.1 H, Glucose 141 H, Calcium 8.7 Micro: Microbiology 01/13/24 17:30 Urine Catheter - Catheter Legionella Antigen - Final 01/13/24 17:30 Urine Catheter - Catheter Streptococcus pneumoniae Antigen (M - Final ABG Data ABG results: ABG 01/13/24 15:07 Specimen Type ART Sample Site R Radial pH 7.42 Bicarbonate Actual 26.6 H Total CO2 28 Base Excess 2 O2 Saturation 95 O2 % 30.0 ABG pCO2 41.3 ABG pO2 74 L Ismael Test Positive Respiration Rate 16 O2 Delivery Device BiPAP Vent Mode Not entered Clinical Comments 19/11 Radiography Diagnostic Testing: Radiology Impression Brain CT 01/13/24 09:25 IMPRESSION: Chronic involutional changes of the brain. Electronically Signed: Xu Adams MD at 12:22 EDT , Abdomen/Pelvis CT 01/13/24 09:52 IMPRESSION: Stable examination. Electronically Signed: Xu Adams MD at 15:11 EDT , Chest CTA 01/13/24 09:52 IMPRESSION: No definite pulmonary embolism is seen. Bilateral pleural effusions left greater than right with bibasilar atelectasis. Persistent irregular pleural-based nodular density in the left upper lobe. Correlation with a PET scan recommended. Mild enlargement of the mediastinal lymph nodes. Electronically Signed: Xu Adams MD at 15:15 EDT , Chest X-Ray 01/13/24 11:40 IMPRESSION: Increased interstitial markings suggest mild CHF. Stable left apical opacity. Electronically Signed: Xu Adams MD at 12:20 EDT , Chest X-Ray 01/13/24 13:55 IMPRESSION: Stable examination. No evidence of pneumothorax. Electronically Signed: Xu Adams MD at 14:12 EDT , Physical Exam Narrative General: Alert, Oriented x3, Cooperative, No apparent distress HEENT: Atraumatic, PERRLA, EOMI, Normocephalic Oral: Moist Mucosa Neck: Supple, No JVD Lungs: Diminished, poor air movement, No rhonchi, No wheeze, No rales Cardiovascular: Regular rate, Regular Rhythm, Normal S1, Normal S2, No murmurs Abdomen: Soft, Non Tender, Non-Distended, No Hepato-splenomegaly Genitourinary: Cortes is in place with significant hematuria Extremities: No edema, Capillary Refill Less than 3 Seconds Skin: No rashes, No breakdown Musculoskeletal: No Tenderness to Palpation of Joints or Extremities Neurological: No focal neurological deficits, Motor Exam 5/5 strength throughout, Sensory exam intact to light touch and pain Psych/Mental Status: Normal Affect, Appropriate Assessment & Plan Assessment/Plan (1) Pneumonia: QUALIFIERS: Pneumonia type: due to unspecified organism Laterality: bilateral Lung location: unspecified part of lung Qualified Code(s): J18.9 - Pneumonia, unspecified organism (2) Acute hypercapnic respiratory failure: (3) COPD exacerbation: (4) Acute metabolic encephalopathy: (5) AUGUSTINA (acute kidney injury): PLAN: Plan 1. Acute on chronic hypoxic and hypercapnic respiratory failure secondary to COPD exacerbation in the setting of bilateral pneumonia after COVID-19/metabolic encephalopathy now resolved/AUGUSTINA ? She has completed COVID-19 treatment as an outpatient, she was requiring BiPAP on admission here with a pCO2 greater than 80 ? She was diagnosed with this on 01/01/2024 ? Continue with Levaquin ? Continue with prednisone ? Continue with breathing treatments ? CT of the chest did demonstrate a pleural mass in the left upper lobe that she is seeing oncology for as an outpatient ? She did have an AUGUSTINA on admission is resolved very quickly, renal functions back to baseline 2. CAD status post stent/essential HTN/HLD ?Continue with aspirin and Plavix given the fact that she had a stent placed less than a week ago ? She does have an elevated troponin but this is in the setting of a recent non-STEMI currently denies chest pain ? Continue with her blood pressure medications ? Will monitor and make adjustments as necessary 3. GERD ? Stable ? Continue with PPI 4. Rheumatoid arthritis ? Can hold Plaquenil for now and restart on discharge 5. She does have a staghorn calculus and she is currently having significant hematuria, hemoglobin has dropped will recheck tomorrow unfortunately cannot stop antiplatelets at this time and may need to follow-up as an outpatient, if hematuria does not resolve may need transfer to a tertiary center as urology here have recommended that on her previous admission DVT: SCDs Charges/Coding Visit Charges Inpatient E&M: 01264 Subs Hosp L2
[2024-01-14] MEDS: Acetaminophen 325 MG Tablet 650 MG PO (11:22)
[2024-01-14] MEDS: Clopidogrel Bisulfate 75 MG Tablet PO (11:23)
[2024-01-14] MEDS: Aspirin 81 MG TAB.CHEW PO (11:23)
[2024-01-14 13:46] LABS: Pathologist Review Reviewed
--- NOTE | 2024-01-14 14:31 | CASEMGMT ---
Social Work A list of?SNFs providers including quality and resource use data and consistent with the patient's preferred geographic region, medical needs, and insurance network was created in CarePort Guide.? This list was provided to the RN-CM. Simona Baltazar SQUEEGEE FINISHER, BLOW MOLD OPERATOR
--- NOTE | 2024-01-14 14:41 | CASEMGMT ---
Insurance review for hospitals In-network with [facility] [place] [employer] insurance if transfer is recommended is as follows: [facility], Amy, [facility], [facility], [facility]), and . Jacque Arce, Discharge Planning Asst.
--- NOTE | 2024-01-14 14:45 | CASEMGMT ---
GUY CM in to discuss readmission and discharge planning with patient, daughter and at bedside. Please see CM: Readmission Intervention. Daughter and patient mention that they would like TCU at discharge. RN CM updated that referral can be made but could not guarantee availability at TCU and that a SNF list would be provided. Daughter states that they were unable to schedule follow-up appts prior to patient's readmission. Daughter voiced concerns regarding previous workups in the ED and if recent illnesses could have diagnosed sooner. GUY CM encourage patient and daughter to speak with hospitalist regarding questions on her recent illnesses. GUY MAURO updated Care Management Director of daughters concerns. Patient and family had no further questions or concerns. CM will continue to follow this patient and plan for a safe discharge.
--- NOTE | 2024-01-14 15:12 | CHAPLAIN ---
Type of Pastoral Visit _x__ Initial Visit ___ Follow-up Visit ___ On-call Visit ___ General Patient Visit ___ Spiritual Assessment ___ Family Conference ___ Bereavement ___ Rapid Response ___ Code Blue ___ Other (describe below) Pastoral Care Referral From _x__ Patient ___ Family ___ Nurse ___ Physician ___ Assistant Counsel ___ Industrial Hygiene Technician ___ Other (describe below) Sacrament/Intervention _x__ Active listening ___ Anointing ___ Anabaptist ___ Bereavement ___ Communion ___ Charity exploration ___ ___ Life review _x__ Prayer ___ Reconciliation ___ Sacrament of Sick _x__ Supportive presence ___ Wedding ___ Other (describe below) Pastoral Comments patient and family members are in the room; family members were hoping this was the doctor and were looking for answers; family express some frustration at needing answers about why patient has had reoccurring admissions to the hospital; pt remembers this mis manager and explains her return to hospital; pt states that she just needs hope and prayers; time given to listen and offer support; prayer given; pt and family members deny any other concerns or needs
[2024-01-14] MEDS: Carvedilol 6.25 MG Tablet PO (20:36)
[2024-01-14] MEDS: Pantoprazole Sodium 20 MG Tablet PO (20:36)
[2024-01-14] MEDS: Atorvastatin Calcium 40 MG Tablet PO (20:36)
[2024-01-15] VITALS (15 sets, daily range): BP systolic 144–173; BP diastolic 66–91; PULSE 64–81; RESP 12–30; TEMP 35.9–36.6; O2SAT 94–99
[2024-01-15] MEDS: Acetaminophen 325 MG Tablet 650 MG PO ×2 (02:52→14:58)
[2024-01-15] MEDS: Albuterol 2.5 MG/3 ML VIAL.NEB. INHALATION (04:39)
[2024-01-15 05:56] LABS: Absolute Lymphocyte Count 2.53 X10^3/uL (0.83-4.51); Absolute Neutrophil Count 11.3 X10^3/uL (2.0-7.7); Basophil# 0.04 X10^3/uL; Basophil% 0.3 % (0-1); Eosinophil# 0.02 X10^3/uL; Eosinophils% 0.1 % (0-5); Hematocrit 30.8 % (37-47); Hemoglobin 9.8 g/dL (12.0-15.0); Lymphocyte # 2.53 X10^3/ul (0.83-4.51); Lymphocyte % 16.4 % (19-41); Mean Corp Hgb Conc 31.8 g/dL (32-36); Mean Corpuscular Volume 94.2 fL (81-99); Mean Platelet Vol. 9.8 fl (6.2-12.0); Monocyte# 1.29 X10^3/uL; Monocyte% 8.4 % (0-10); NRBC Flagged by Analyzer 0 % (0-5); Neutrophil % 73.4 % (47-70); Platelet Count 290 K/mm3 (150-450); RBC Distribution Width CV 14.4 % (11.6-14.6); RBC Distribution Width SD 47.9 fl (35.1-43.9); Red Blood Count 3.27 M/mm3 (4.2-5.4); White Blood Count 15.4 K/mm3 (4.4-11.0)
[2024-01-15 06:29] LABS: Anion Gap 4 (5-15); BUN 23 mg/dL (7-18); BUN/Creat Ratio 21.3 RATIO (10-20); Chloride 100 mmol/L (98-107); Creatinine, Serum 1.08 mg/dL (0.55-1.02); EST Glomerular Filtration Rate 53 mL/min (>60); Est Glom Filt Rate - Afr Amer 64 mL/min (>60); Estimated Creatinine Clearance 47.34 ml/min; Glucose 132 mg/dL (74-106); Potassium 3.9 mmol/L (3.5-5.1); Sodium Level 135 mmol/L (136-145)
[2024-01-15] MEDS: Ipratropium/Albuterol Sulfate 3 ML AMPUL.NEB INHALATION ×3 (07:27→19:13)
--- NOTE | 2024-01-15 10:14 | PCM.PN.HOSP ---
Subjective Subjective Doing well today, hemoglobin is elevated to 9.8 Objective Data Objective Data Vital Signs: Vital Signs Temp Pulse Resp BP Pulse Ox O2 Del Method O2 Flow Rate 97.8 F 79 30 H 173/91 H 97 Bi-pap 5 01/15/24 08:00 01/15/24 10:05 01/15/24 10:05 01/15/24 08:00 01/15/24 10:05 01/15/24 08:03 01/15/24 07:28 FiO2 30 01/15/24 10:05 Oxygen Flow Rate (L/min) 5 Oxygen Delivery Method Bi-pap Weight: 183 lb Body Mass Index (BMI) 32.4 Intake & Output: Intake and Output for Last 24 Hours 01/14/24 01/15/24 01/16/24 03:59 03:59 03:59 Intake Total 1481.25 / 1481.25 1603.75 / 1603.75 230 / 230 Output Total 650 / 650 900 / 900 150 / 150 Balance 831.25 / 831.25 703.75 / 703.75 80 / 80 Lab / Micro Data 01/15/24 05:45 01/15/24 05:45 Labs: Laboratory Results - last 24 hr 01/13/24 09:50: Diff Path Review Reviewed 01/13/24 09:55: Urine Color Brown, Urine Clarity Turbid, Urine pH 6.5, Ur Specific [place] 1.025, Urine Protein 500 H, Urine Glucose (UA) 50 H, Urine Ketones 5 H, Urine Occult Blood 250 H, Urine Nitrite Negative, Urine Bilirubin Negative, Urine Urobilinogen Normal, Ur Leukocyte Esterase 500 H, Urine RBC > 100 SEEN, Urine WBC 10-25 SEEN, Ur Squamous Epith Cells 0-5 SEEN, Urine Bacteria 0 SEEN, Urine Mucus 0 SEEN 01/15/24 05:45: WBC 15.4 H, RBC 3.27 L, Hgb 9.8 L, Hct 30.8 L, MCV 94.2, MCH 30.0, MCHC 31.8 L, RDW Std Deviation 47.9 H, RDW Coeff of Nasir 14.4, Plt Count 290, MPV 9.8, Immature Gran % (Auto) 1.400 H, Neut % (Auto) 73.4 H, Lymph % (Auto) 16.4 L, [place] % (Auto) 8.4, Eos % (Auto) 0.1, Baso % (Auto) 0.3, Absolute Neuts (auto) 11.3 H, Absolute Lymphs (auto) 2.53, Nucleated RBC % 0, Sodium 135 L, Potassium 3.9, Chloride 100, Carbon Dioxide 31.0, Anion Gap 4 L, BUN 23 H, Creatinine 1.08 H, Estim Creat Clear Calc 47.34, Est GFR (MDRD) Af Amer 64, Est GFR (MDRD) Non-Af 53 L, BUN/Creatinine Ratio 21.3 H, Glucose 132 H, Calcium 9.0 Micro: Microbiology 01/13/24 09:55 Urine, Catheterized Urine Culture - Final Pseudomonas aeruginosa 01/14/24 18:20 Nasal Secretion MRSA (PCR) - Final 01/13/24 17:30 Urine Catheter - Catheter Legionella Antigen - Final 01/13/24 17:30 Urine Catheter - Catheter Streptococcus pneumoniae Antigen (M - Final Physical Exam Narrative General: Alert, Oriented x3, Cooperative, No apparent distress HEENT: Atraumatic, PERRLA, EOMI, Normocephalic Oral: Moist Mucosa Neck: Supple, No JVD Lungs: Diminished, poor air movement, No rhonchi, No wheeze, No rales Cardiovascular: Regular rate, Regular Rhythm, Normal S1, Normal S2, No murmurs Abdomen: Soft, Non Tender, Non-Distended, No Hepato-splenomegaly Genitourinary: Cortes is in place with significant hematuria Extremities: No edema, Capillary Refill Less than 3 Seconds Skin: No rashes, No breakdown Musculoskeletal: No Tenderness to Palpation of Joints or Extremities Neurological: No focal neurological deficits, Motor Exam 5/5 strength throughout, Sensory exam intact to light touch and pain Psych/Mental Status: Normal Affect, Appropriate Assessment & Plan Assessment/Plan (1) Pneumonia: QUALIFIERS: Pneumonia type: due to unspecified organism Laterality: bilateral Lung location: unspecified part of lung Qualified Code(s): J18.9 - Pneumonia, unspecified organism (2) Acute hypercapnic respiratory failure: (3) COPD exacerbation: (4) Acute metabolic encephalopathy: (5) AUGUSTINA (acute kidney injury): PLAN: Plan 1. Acute on chronic hypoxic and hypercapnic respiratory failure secondary to COPD exacerbation in the setting of bilateral pneumonia after COVID-19/metabolic encephalopathy now resolved/AUGUSTINA ? She has completed COVID-19 treatment as an outpatient, she was requiring BiPAP on admission here with a pCO2 greater than 80 ? She was diagnosed with this on 01/01/2024 ? Continue with Levaquin ? Continue with prednisone ? Continue with breathing treatments ? CT of the chest did demonstrate a pleural mass in the left upper lobe that she is seeing oncology for as an outpatient, she states that been biopsied in the past and is benign and periodically resolved periodically comes back. ? She did have an AUGUSTINA on admission is resolved very quickly, renal functions back to baseline 2. CAD status post stent/essential HTN/HLD ?Continue with aspirin and Plavix given the fact that she had a stent placed less than a week ago ? She does have an elevated troponin but this is in the setting of a recent non-STEMI currently denies chest pain ? Continue with her blood pressure medications ? Will monitor and make adjustments as necessary 3. GERD ? Stable ? Continue with PPI 4. Rheumatoid arthritis ? Can hold Plaquenil for now and restart on discharge 5. She does have a staghorn calculus and she is currently having significant hematuria, hemoglobin has dropped will recheck tomorrow unfortunately cannot stop antiplatelets at this time and may need to follow-up as an outpatient, if hematuria does not resolve may need transfer to a tertiary center as urology here have recommended that on her previous admission ? Hemoglobin today is elevated to 9.8 DVT: SCDs Charges/Coding Visit Charges Inpatient E&M: 94794 Subs Hosp L2
[2024-01-15] MEDS: Aspirin 81 MG TAB.CHEW PO (10:42)
[2024-01-15] MEDS: Carvedilol 6.25 MG Tablet PO ×2 (10:43→21:29)
[2024-01-15] MEDS: Clopidogrel Bisulfate 75 MG Tablet PO (10:43)
[2024-01-15] MEDS: predniSONE 20 MG Tablet 40 MG PO (10:43)
[2024-01-15] MEDS: Pantoprazole Sodium 20 MG Tablet PO ×2 (10:43→21:29)
[2024-01-15] MEDS: levoFLOXacin IV 750 MG/150 ML BAG 100 MG IV (10:46)
--- NOTE | 2024-01-15 15:01 | CASEMGMT ---
SW was informed family would like patient to go to TCU. At this time there are no TCU beds. SW met with patient and family. Introduced self and role at [facility]. SW let them know TCU is full. SW provided patient and family with a list of?half-way facility providers including quality and resource use data and consistent with patient?s preferred geographic region, medical needs, and insurance network were provided from the CarePort Guide.? Plan: SNF pending family's choices, accepting facility, and insurance approval. Bekah Hines DIRECTOR OF HEALTH CARE MARKETING [place]
[2024-01-15 15:47] LABS: Allen Test Positive; Blood Gas Specimen Type ART; O2 Delivery Device Bi Pap; SITE R RADIAL
[2024-01-15 15:48] LABS: EPAP 8; IPAP 14
[2024-01-15 15:49] LABS: Base Excess 1 mmol/L (-2 to +2); Bicarbonate 27.6 mmol/L (22-26); PO2 73 mmHG (75-100); pCO2 56.4 mmHg (35-45)
[2024-01-15 15:50] LABS: SO2 92 % (95-99); Total Carbon Dioxide 29 mmol/L
--- NOTE | 2024-01-15 15:52 | CASEMGMT ---
SARAH spoke with patient and family as physician asked SARAH to provide family with a list of facilities in [facility]. There is 1 [facility] in network with patient's insurance that [facility] [place] [facility] This [facility] already on the list. Family said their choices are 1. TCU [facility]. [facility] SARAH will ask Jacque to please send a referral to [facility]. Bekah Hines DIRECTOR OF PROPERTY MANAGEMENTAshley ALANIS
--- NOTE | 2024-01-15 16:35 | CASEMGMT ---
Addendum entered by Jacque Arce 01/16/24 08:50: [facility] asked to cancel referral. Jacque Arce DC Planning Asst. Original Note: Discharge Planning Referral faxed to [facility] referral office. Jacque Arce DC Planning Asst.
[2024-01-15] MEDS: FLU VACCINE **HIGH DOSE** TV 24-25 180 MCG/0.5 ML SYRINGE IM (16:44)
[2024-01-15] MEDS: 0.9% Saline Lock 10 ML Syringe IV (21:29)
[2024-01-15] MEDS: Atorvastatin Calcium 40 MG Tablet PO (21:29)
[2024-01-16] VITALS (8 sets, daily range): BP systolic 148–168; BP diastolic 74–79; PULSE 63–94; RESP 12–24; TEMP 36.6–36.7; O2SAT 95–97
[2024-01-16] MEDS: Acetaminophen 325 MG Tablet 650 MG PO ×2 (04:22→10:23)
[2024-01-16] MEDS: Ipratropium/Albuterol Sulfate 3 ML AMPUL.NEB INHALATION ×3 (05:32→15:11)
[2024-01-16 06:59] LABS: Absolute Lymphocyte Count 2.09 X10^3/uL (0.83-4.51); Absolute Neutrophil Count 11.1 X10^3/uL (2.0-7.7); Basophil# 0.07 X10^3/uL; Basophil% 0.5 % (0-1); Eosinophil# 0.03 X10^3/uL; Eosinophils% 0.2 % (0-5); Hematocrit 30.3 % (37-47); Hemoglobin 9.7 g/dL (12.0-15.0); Lymphocyte # 2.09 X10^3/ul (0.83-4.51); Mean Corpuscular Hgb 29.8 pg (27.0-32.0); Mean Corpuscular Volume 93.2 fL (81-99); Mean Platelet Vol. 10.2 fl (6.2-12.0); Monocyte% 8.7 % (0-10); NRBC Flagged by Analyzer 0 % (0-5); Neutrophil # 11.05 X10^3/uL (2.7-7.7); Neutrophil % 74.2 % (47-70); Platelet Count 253 K/mm3 (150-450); RBC Distribution Width CV 14.7 % (11.6-14.6); Red Blood Count 3.25 M/mm3 (4.2-5.4); White Blood Count 14.9 K/mm3 (4.4-11.0)
[2024-01-16 07:39] LABS: Anion Gap 6 (5-15); BUN 30 mg/dL (7-18); BUN/Creat Ratio 23.4 RATIO (10-20); Calcium,Total 8.8 mg/dL (8.5-10.1); Chloride 102 mmol/L (98-107); Creatinine, Serum 1.28 mg/dL (0.55-1.02); EST Glomerular Filtration Rate 43 mL/min (>60); Est Glom Filt Rate - Afr Amer 53 mL/min (>60); Estimated Creatinine Clearance 39.95 ml/min; Glucose 146 mg/dL (74-106); Potassium 4.1 mmol/L (3.5-5.1); Sodium Level 137 mmol/L (136-145)
--- NOTE | 2024-01-16 08:53 | CASEMGMT ---
Addendum entered by Cee Burden 01/16/24 12:16: Social Work SW spoke with [facility] in TCU and precert has been obtained and pt can admit today. Physician updated and pt is medically ready for dc today. DC orders faxed to TCU. SW met with pt and notified that pt can go to TCU today and pt is agreeable. Pt to notify family. Nursing updated. Disposition: TCU, Skilled level of care AUGUSTINE Garcia Original Note: Social Work SW received a call from [facility] in TCU and a bed is now available and pt can be accepted on Saturday. SW met with pt and informed and pt is appreciative and agreeable to dc plan to TCU. Pt states she will notify her family. DC diet assistant updated and to cancel referral to [facility]. Plan: TCU, bed available on Saturday. Precert pending. AUGUSTINE Garcia
[2024-01-16] MEDS: Aspirin 81 MG TAB.CHEW PO (10:19)
[2024-01-16] MEDS: predniSONE 20 MG Tablet 40 MG PO (10:19)
[2024-01-16] MEDS: Clopidogrel Bisulfate 75 MG Tablet PO (10:20)
[2024-01-16] MEDS: Pantoprazole Sodium 20 MG Tablet PO (10:20)
[2024-01-16] MEDS: Carvedilol 6.25 MG Tablet PO (10:20)
--- NOTE | 2024-01-16 11:36 | TREXTCAR_ITS ---
Diet Diet Order/Speech Therapy: 01/13/24 16:31 Diet: Cardiac - Heart Healthy Food consistency:: Regular Liquid Consistency:: Regular/Thin Routine Orders/Code Status Routine Lab Work: CBC and BMP Code Status: Full Code Therapies Physical Therapy: Eval and Treat Occupational Therapy: Eval and Treat Problem/Diagnosis (1) Pneumonia: Status: Acute Code(s): J18.9 - Pneumonia, unspecified organism (2) Acute hypercapnic respiratory failure: Status: Acute Code(s): J96.02 - Acute respiratory failure with hypercapnia (3) COPD exacerbation: Status: Resolved Code(s): J44.1 - Chronic obstructive pulmonary disease with (acute) exacerbation (4) Acute metabolic encephalopathy: Status: Acute Code(s): G93.41 - Metabolic encephalopathy (5) AUGUSTINA (acute kidney injury): Status: Acute Code(s): N17.9 - Acute kidney failure, unspecified Plan 1. Acute on chronic hypoxic and hypercapnic respiratory failure secondary to COPD exacerbation in the setting of bilateral pneumonia after COVID-19/metabolic encephalopathy now resolved/AUGUSTINA ? She has completed COVID-19 treatment as an outpatient, she was requiring BiPAP on admission here with a pCO2 greater than 80 ? She was diagnosed with this on 01/01/2024 ? Continue with Levaquin ? Continue with prednisone ? Continue with breathing treatments ? CT of the chest did demonstrate a pleural mass in the left upper lobe that she is seeing oncology for as an outpatient, she states that been biopsied in the past and is benign and periodically resolved periodically comes back. ? She did have an AUGUSTINA on admission is resolved very quickly, renal functions back to baseline 2. CAD status post stent/essential HTN/HLD ?Continue with aspirin and Plavix given the fact that she had a stent placed less than a week ago ? She does have an elevated troponin but this is in the setting of a recent non- STEMI currently denies chest pain ? Continue with her blood pressure medications ? Will monitor and make adjustments as necessary 3. GERD ? Stable ? Continue with PPI 4. Rheumatoid arthritis ? Can hold Plaquenil for now and restart on discharge 5. She does have a staghorn calculus and she is currently having significant hematuria, hemoglobin has dropped will recheck tomorrow unfortunately cannot stop antiplatelets at this time and may need to follow-up as an outpatient, if hematuria does not resolve may need transfer to a tertiary center as urology here have recommended that on her previous admission ? Hemoglobin today is elevated to 9.8 DVT: SCDs Allergies/Procedures Done in Hospital Allergies bromide salts (bromide) Adverse Reaction (Verified 01/06/24 12:35) Hives strawberry Adverse Reaction (Verified 01/06/24 12:35) Hives frozen strawberries Procedures: None Type of Care/Length of Stay Estimated LOS: Convalescent Care Less Than 30 days Type of Care Needed: Skilled Rehab Potential: Good Prognosis: Good Additional Orders/Day of Discharge Day of Discharge: 01/16/24 Discharge Plan Admission Admit Date/Time: 01/13/24 15:32 Attending Provider: Ernesto Maravilla Primary Care Provider: Haritha Alonso Consulting Providers: Guido Zabala Instructions Additional Instructions / Restrictions: If she develops anemia from her hematuria, she will need to be transferred to a tertiary center as Urology does not feel comfortable managing her staghorn calculus here. Also she cannot discontinue aspirin or plavix under any circumstance Discharge Orders/Prescriptions Prescriptions: New prednisone 20 mg Tablet 40 mg PO DAILYCM 7 Days Qty: 14 0RF levofloxacin 750 mg tablet 750 mg PO .q48 Qty: 3 0RF Continued Breztri Aerosphere 160-9-4.8 mcg/actuation HFA aerosol inhaler 2 inh inhalation BID Qty: 10.7 6RF tramadol 50 MG tablet 50 mg PO DAILY PRN (Reason: Pain Score 1-10) oxybutynin chloride 5 MG tablet 5 - 10 mg PO BID hydroxychloroquine 200 MG tablet 200 mg PO BIDCM cholecalciferol (vitamin D3) 2,000 UNIT capsule 2,000 unit PO DAILY aspirin 81 mg Tablet,Chewable 81 mg PO DAILYCM Qty: 0 0RF atorvastatin 40 mg Tablet 40 mg PO QHS Qty: 30 0RF carvedilol 6.25 mg Tablet 6.25 mg PO BID Qty: 60 0RF lisinopril 10 mg Tablet 10 mg PO DAILY Qty: 30 0RF clopidogrel [Plavix] 75 mg tablet 75 mg PO DAILY Qty: 30 0RF Rx Instructions: start on 01/07/24 omeprazole 20 mg capsule,delayed release(DR/EC) 20 mg PO BID Qty: 120 0RF Discontinued prednisone 10 mg tablet 10 mg PO DAILY PRN (Reason: breathing) Rx Instructions: 4 tabs daily for 3 days, then 3 tabs daily for 3 days, then 2 tabs daily for 3 days, then 1 tab daily for 3 days Referrals / Follow Up: Haritha Alonso NP-C [Primary Care Provider] - Disposition Disposition (needs filled in before D/C Order can be placed): [facility] (1) Pneumonia Qualifiers: Pneumonia type: due to unspecified organism Laterality: bilateral Lung location: unspecified part of lung Qualified Code(s): J18.9 - Pneumonia, unspecified organism
--- NOTE | 2024-01-16 13:42 | PCM.DC.SUM ---
Providers Date of Admission: 01/13/24 Primary Care Physician: JUANI BoyleC Reason For Visit: BILATERAL PNEUMONIA Diagnosis Discharge Diagnosis (1) Pneumonia: Status: Acute Code(s): J18.9 - Pneumonia, unspecified organism Qualifiers: Pneumonia type: due to unspecified organism Laterality: bilateral Lung location: unspecified part of lung Qualified Code(s): J18.9 - Pneumonia, unspecified organism (2) Acute hypercapnic respiratory failure: Status: Acute Code(s): J96.02 - Acute respiratory failure with hypercapnia (3) COPD exacerbation: Status: Resolved Code(s): J44.1 - Chronic obstructive pulmonary disease with (acute) exacerbation (4) Acute metabolic encephalopathy: Status: Acute Code(s): G93.41 - Metabolic encephalopathy (5) AUGUSTINA (acute kidney injury): Status: Acute Code(s): N17.9 - Acute kidney failure, unspecified Medications at Discharge Home Medications tramadol 50 mg tablet 50 mg PO DAILY PRN Pain Score 1-10 03/02/14 oxybutynin chloride 5 mg tablet 5 - 10 mg PO BID pain 01/25/20 cholecalciferol (vitamin D3) 50 mcg (2,000 unit) capsule 2,000 unit PO DAILY deficiency 07/27/20 hydroxychloroquine 200 mg tablet 200 mg PO BIDCM arthritis 07/27/20 aspirin 81 mg chewable tablet 81 mg PO DAILYCM Heart #0 tabs 06/06/23 budesonide 160 mcg-glycopyr 9 mcg-formot 4.8 mcg/actuation HFA inhaler (Breztri Aerosphere) 2 inh inhalation BID breathing #10.7 grams 07/05/23 atorvastatin 40 mg tablet 40 mg PO QHS cholesterol #30 tabs 01/07/24 carvedilol 6.25 mg tablet 6.25 mg PO BID blood pressure #60 tabs 01/07/24 clopidogrel 75 mg tablet (Plavix) 75 mg PO DAILY blood thinner #30 tabs 01/07/24 lisinopril 10 mg tablet 10 mg PO DAILY blood presure #30 tabs 01/07/24 omeprazole 20 mg capsule,delayed release 20 mg PO BID acid reflux #120 caps 01/08/24 levofloxacin 750 mg tablet 750 mg PO .q48 #3 tabs 01/16/24 prednisone 20 mg tablet 40 mg (2 x 20 mg) PO DAILYCM 7 days #14 tabs 01/16/24 Hospital Course Operations None Procedures None Summary of Care Provided Minutes Spent on Discharge: 36 Hospital Course: Per HPI: ZEINAB HULL, is a 73 F with a significant history of tobacco abuse; COPD; breast cancer s/p lumpectomy and chemoradiation; who was admitted to [facility] about a week ago for a non-STEMI and had a stent placed; and recent COVID-19 infection presenting to the emergency department with shortness of breath that started the same day of presentation. Associated with her symptoms is altered mental status. Per patient's who provided history patient was not appropriately answering questions; and the patient was breathing with her abdominal muscles in an irregular pattern. Further, patient has been having a thick productive cough. Further, patient has lethargy. Reportedly on presentation patient oxygen saturation was 70% and she was having agonal breathing and required bagging. Her eyes were pinpoint. Reportedly she has ordered tramadol that she rarely takes. At the emergency department patient required BiPAP but she was later transitioned to nasal cannula oxygen. Family reports that at home patient is on 4 L nasal cannula oxygen although she has been asked to stepdown her nasal cannula oxygen; and indeed the initial prescription of 4 L nasal might have been a mistake; and patient required less oxygen at baseline. Hospital Course: 1. Acute on chronic hypoxic and hypercapnic respiratory failure secondary to COPD exacerbation in setting of bilateral pneumonia after COVID-19/metabolic encephalopathy/AUGUSTINA?73-year-old female presented to the hospital 1 week after having a non-STEMI with a drug-eluting stent placed to the left circumflex presented to the hospital with altered mental status. She was found to be in hypoxic and hypercapnic respiratory failure started on BiPAP. She had significant improvement was also found to have a pneumonia which she was started on Levaquin for which was dosed every 48 hours secondary to her creatinine clearance. She was also started on p.o. prednisone and she has had significant improvement in her respiratory status and her altered mental status has resolved. I discussed with her the plan for discharge today and she expressed understanding Vanessa is going to the longterm and would like to go today. Of note CT scan demonstrated a pleural mass in her left upper chest this has been evaluated and she is monitored as an outpatient for it, she says that she has had multiple biopsies none of which were malignant. Also her creatinine is at baseline though it is fluctuating therefore I would recommend holding lisinopril less absolutely necessary and monitoring renal function as an outpatient. 2. She has a staghorn calculus with hematuria however she just had a stent placed about a week ago and has to remain on aspirin and Plavix. If she does continue to have hematuria with resultant anemia she will need to be transferred to a tertiary care center for urologic evaluation as this was the recommendation by urology on her previous admission for this issue. 2. Coronary artery disease status post stent, essential hypertension, hyperlipidemia, GERD, rheumatoid arthritis are all chronic medical conditions which complicate her care. Her home medications were continued where appropriate Physical Exam Narrative General: Alert, Oriented x3, Cooperative, No apparent distress HEENT: Atraumatic, PERRLA, EOMI, Normocephalic Oral: Moist Mucosa Neck: Supple, No JVD Lungs: Diminished, poor air movement, No rhonchi, No wheeze, No rales Cardiovascular: Regular rate, Regular Rhythm, Normal S1, Normal S2, No murmurs Abdomen: Soft, Non Tender, Non-Distended, No Hepato-splenomegaly Genitourinary: Cortes is in place with significant hematuria Extremities: No edema, Capillary Refill Less than 3 Seconds Skin: No rashes, No breakdown Musculoskeletal: No Tenderness to Palpation of Joints or Extremities Neurological: No focal neurological deficits, Motor Exam 5/5 strength throughout, Sensory exam intact to light touch and pain Psych/Mental Status: Normal Affect, Appropriate Weight / BMI Weight Weight: 183 lb Body Mass Index (BMI) 32.4 ABG / Lab / Microbiology Data 01/16/24 06:39 01/16/24 06:39 Laboratory: Laboratory Results - last 24 hr 01/16/24 06:39: WBC 14.9 H, RBC 3.25 L, Hgb 9.7 L, Hct 30.3 L, MCV 93.2, MCH 29.8, MCHC 32.0, RDW Std Deviation 49.0 H, RDW Coeff of Nasir 14.7 H, Plt Count 253, MPV 10.2, Immature Gran % (Auto) 2.400 H, Neut % (Auto) 74.2 H, Lymph % (Auto) 14.0 L, Caroline % (Auto) 8.7, Eos % (Auto) 0.2, Baso % (Auto) 0.5, Absolute Neuts (auto) 11.1 H, Absolute Lymphs (auto) 2.09, Nucleated RBC % 0, Sodium 137, Potassium 4.1, Chloride 102, Carbon Dioxide 29.0, Anion Gap 6, BUN 30 H, Creatinine 1.28 H, Estim Creat Clear Calc 39.95, Est GFR (MDRD) Af Amer 53 L, Est GFR (MDRD) Non-Af 43 L, BUN/Creatinine Ratio 23.4 H, Glucose 146 H, Calcium 8.8 Microbiology: Microbiology 01/13/24 11:25 Blood Culture (Wb) - Right Wrist Blood Culture - Preliminary No growth in 48 hours. 01/13/24 09:55 Urine, Catheterized Urine Culture - Final Pseudomonas aeruginosa 01/14/24 18:20 Nasal Secretion MRSA (PCR) - Final 01/13/24 17:30 Urine Catheter - Catheter Legionella Antigen - Final 01/13/24 17:30 Urine Catheter - Catheter Streptococcus pneumoniae Antigen (M - Final ABG: ABG 01/13/24 10:49 Specimen Type ART Sample Site R RADIAL pH 7.30 L Bicarbonate Actual 27.6 H Total CO2 29 Base Excess 1 O2 Saturation 92 L O2 % 30.0 ABG pCO2 56.4 H ABG pO2 73 L Ismael Test Positive O2 Delivery Device Bi Pap EPAP 8 IPAP 14 Meaningful Use Info Meaningful Use Meaningful Use Diagnoses (Choose all that apply): None applicable Ischemic Stroke Statin Dosing Therapy Reference: STATIN DOSE THERAPY REFERENCE: * Patients > 75 years receive moderate or high dose statin therapy. * Patients 75 years or YOUNGER should receive HIGH intensity statin dose unless contraindicated. You will be required to document reason for non-treatment if statin daily dose does not meet guidelines. HIGH DOSE STATIN THERAPY DAILY Atorvastatin > than or = to 40 mg Rosuvastatin > than or = to 20 mg Amlodipine + Atorvastatin > than or = to 2.5/40 mg Ezetimibe + Simvastatin 10/80 mg Simvastatin 80mg Discharge Plan Admission Admit Date/Time: 01/13/24 15:32 Attending Provider: Ernesto Maravilla Primary Care Provider: Haritha Alonso Consulting Providers: Guido Zabala Instructions Additional Instructions / Restrictions: If she develops anemia from her hematuria, she will need to be transferred to a tertiary center as Urology does not feel comfortable managing her staghorn calculus here. Also she cannot discontinue aspirin or plavix under any circumstance Discharge Orders/Prescriptions Prescriptions: New prednisone 20 mg Tablet 40 mg PO DAILYCM 7 Days Qty: 14 0RF levofloxacin 750 mg tablet 750 mg PO .q48 Qty: 3 0RF Continued Breztri Aerosphere 160-9-4.8 mcg/actuation HFA aerosol inhaler 2 inh inhalation BID Qty: 10.7 6RF tramadol 50 MG tablet 50 mg PO DAILY PRN (Reason: Pain Score 1-10) oxybutynin chloride 5 MG tablet 5 - 10 mg PO BID hydroxychloroquine 200 MG tablet 200 mg PO BIDCM cholecalciferol (vitamin D3) 2,000 UNIT capsule 2,000 unit PO DAILY aspirin 81 mg Tablet,Chewable 81 mg PO DAILYCM Qty: 0 0RF atorvastatin 40 mg Tablet 40 mg PO QHS Qty: 30 0RF carvedilol 6.25 mg Tablet 6.25 mg PO BID Qty: 60 0RF lisinopril 10 mg Tablet 10 mg PO DAILY Qty: 30 0RF clopidogrel [Plavix] 75 mg tablet 75 mg PO DAILY Qty: 30 0RF Rx Instructions: start on 01/07/24 omeprazole 20 mg capsule,delayed release(DR/EC) 20 mg PO BID Qty: 120 0RF Discontinued prednisone 10 mg tablet 10 mg PO DAILY PRN (Reason: breathing) Rx Instructions: 4 tabs daily for 3 days, then 3 tabs daily for 3 days, then 2 tabs daily for 3 days, then 1 tab daily for 3 days Referrals / Follow Up: Haritha Alonso DIVE MASTER-C [Primary Care Provider] - Disposition Disposition (needs filled in before D/C Order can be placed): Long Term Facility Charges/Coding Visit Charges Inpatient E&M: 12438 Disch Hosp >30min
== END 2024-01-16 16:02 | disposition skilled nursing facility (03) | DRG 193 ==
LOC: ED 15:35 → PCU 16:05
PROVIDERS: Admitting Provider Hospitalist; Emergency Provider Emergency Medicine; PCP Nurse Practitioner Family; Visit Provider Family Medicine
DX: J18.9 Pneumonia, unspecified organism (principal); J96.21 Acute and chronic respiratory failure with hypoxia; I21.4 Non-ST elevation (NSTEMI) myocardial infarction; G93.41 Metabolic encephalopathy; J96.22 Acute and chronic respiratory failure with hypercapnia; J44.0 Chronic obstructive pulmonary disease with (acute) lower respiratory infection; N17.9 Acute kidney failure, unspecified; J44.1 Chronic obstructive pulmonary disease with (acute) exacerbation; M06.9 Rheumatoid arthritis, unspecified; G20.A1 Parkinson's disease without dyskinesia, without mention of fluctuations; I10 Essential (primary) hypertension; I25.10 Atherosclerotic heart disease of native coronary artery without angina pectoris; E78.5 Hyperlipidemia, unspecified; G47.30 Sleep apnea, unspecified; K21.9 Gastro-esophageal reflux disease without esophagitis; F17.210 Nicotine dependence, cigarettes, uncomplicated; R91.1 Solitary pulmonary nodule; N20.0 Calculus of kidney; R31.9 Hematuria, unspecified; Z23 Encounter for immunization; Z79.891 Long term (current) use of opiate analgesic; Z79.52 Long term (current) use of systemic steroids; Z79.02 Long term (current) use of antithrombotics/antiplatelets; Z79.82 Long term (current) use of aspirin; Z85.3 Personal history of malignant neoplasm of breast; Z86.16 Personal history of COVID-19; Z95.5 Presence of coronary angioplasty implant and graft; Z99.81 Dependence on supplemental oxygen
CPT/HCPCS: 36415; 36600; 70450; 71045; 71275; 74177; 80048; 80053; 81001; 82803; 83605; 84484; 85025; 85610; 85730; 87040; 87077; 87086; 87088; 87184; 87186; 87449; 87641; 90662; 93005; 94002; 94003; 94640; 94762; 97162; 97166; 99284; 99406; J7030; J7050; Q9967; A4216; J0696

== ENCOUNTER 2024-01-16 16:10 | Inpatient (IN) | payer MEDICARE, SELFPAY ==
[2024-01-16 16:34] VITALS: BMI 32.1
[2024-01-16 16:38] VITALS: BP 171/76; PULSE 68; RESP 18; TEMP 36; O2SAT 94
[2024-01-16] MEDS: Ensure Plus High Protein 120 ML LIQUID PO (17:55)
[2024-01-16] MEDS: Hydroxychloroquine 200 MG Tablet PO (17:55)
--- NOTE | 2024-01-16 18:43 | NURSING ---
pt had hematuria after voiding, pt stated that she has been doing that since she developed kidney stones and persaud was removed on acute side of hospital.
[2024-01-16 18:57] VITALS: PULSE 73; RESP 18; O2SAT 95
--- NOTE | 2024-01-16 20:09 | HP.PCM_ITS ---
HPI - General General Date of Admission: 01/16/24 Date of Service: 01/16/24 Chief Complaint: Here for rehabilitation. HPI Narrative 01/13/2024 ZEINAB HULL, is a 73 Female who presents to [facility] ED unresponsive. 01/13/2024 Admit [facility]. BiPAP/CPAP for acute respiratory failure with hypoxia, DANIELA. Steroids, aerosols, oxygen for copd exacerbation. Vancomycin, Zosyn, then Levaquin, Rocephin for pneumonia. Trend Troponin for Type 2 demand ischemia NSTEMI. 01/14/2024 Doing better, off BiPAP, oxygen 3 to 4 liters per nasal cannula. Covid-19 treated 2 weeks ago. Levaquin, prednisone for copd exacerbation. Left upper lobe mass, sees Dr. Hogue, biopsy benign. Acute kidney injury resolved. 01/15/2024 Doing well, Hemoglobin 9.8. SKIP mass, negative biopsy in the past, mass comes and goes. NSTEMI with stent 1 week ago. 01/16/2024 Admit to TCU with debility, here for rehabilitation, strengthening, prior to discharge home with . [facility] Medical History (Updated 01/16/24 @ 20:[address] Sampson Myles MD) Non-ST elevation AR (NSTEMI) GI bleed COVID-19 Acute AR Atherosclerosis of coronary artery of [place] heart without angina pectoris Staghorn renal calculus Urinary tract infection Gross hematuria Acute dehydration Skin tag History of left breast cancer RIGHT ANKLE FRACTURE REPAIR EXCISION STOMACH TUMOR Parkinson disease Mixed connective tissue disease Polyarthropathy Lupus Hypertension COPD (chronic obstructive pulmonary disease) Asthma Arthritis Pulmonary nodules/lesions, multiple Tobacco use disorder Breast pain Osteopenia Malignant neoplasm of central portion of female breast Low bone density Home Medications ?Medication ?Instructions ?Recorded ?Last Taken ?Type tramadol 50 mg tablet 50 mg PO DAILY PRN Pain Score 1-10 03/02/14 01/12/24 History oxybutynin chloride 5 mg tablet 5 - 10 mg PO BID pain 01/25/20 01/12/24 History cholecalciferol (vitamin D3) 50 2,000 unit PO DAILY deficiency 07/27/20 01/12/24 History mcg (2,000 unit) capsule hydroxychloroquine 200 mg tablet 200 mg PO BIDCM arthritis 07/27/20 01/12/24 History aspirin 81 mg chewable tablet 81 mg PO DAILYCM Heart #0 tabs 06/06/23 01/16/24 Rx budesonide 160 mcg-glycopyr 9 2 inh inhalation BID breathing 07/05/23 01/12/24 Rx mcg-formot 4.8 mcg/actuation HFA #10.7 grams inhaler (Breztri Aerosphere) atorvastatin 40 mg tablet 40 mg PO QHS cholesterol #30 tabs 01/07/24 01/15/24 Rx carvedilol 6.25 mg tablet 6.25 mg PO BID blood pressure #60 01/07/24 01/16/24 Rx tabs clopidogrel 75 mg tablet (Plavix) 75 mg PO DAILY blood thinner #30 01/07/24 01/16/24 Rx tabs lisinopril 10 mg tablet 10 mg PO DAILY blood presure #30 01/07/24 01/12/24 Rx tabs omeprazole 20 mg capsule,delayed 20 mg PO BID acid reflux #120 caps 01/08/24 01/16/24 Rx release levofloxacin 750 mg tablet 750 mg PO .q48 Antibiotic #3 tabs 01/16/24 01/16/24 Rx prednisone 20 mg tablet 40 mg (2 x 20 mg) PO DAILYCM 01/16/24 01/16/24 Rx Steriod 7 days #14 tabs Allergy/AdvReac Type Severity Reaction Status Date / Time bromide salts (bromide) AdvReac Hives Verified 01/06/24 12:35 strawberry AdvReac Hives Verified 01/06/24 12:35 Family History Mother Arthritis Diabetes Hypertension Osteoporosis Father Arthritis Heart disease Sister Arthritis Breast cancer Diabetes Hypertension Son Diabetes Other Alzheimer disease Anemia Hyperlipidemia Thyroid disorder Surgical History History of coronary artery stent placement (01/07/24) History of lung biopsy History of tubal ligation History of lumpectomy Hx of cholecystectomy Social History household members: spouse Smoking Status: Current some day smoker tobacco type: cigarettes alcohol intake: never substance use type: does not use ROS Constitutional Constitutional: Reports weakness; Denies chills, fever(s) or weight gain ENT HEENT: Denies headache(s), nasal congestion or nasal discharge Cardiovascular Cardiovascular: Denies chest pain or palpitations Respiratory/Chest Respiratory/Chest: Reports shortness of breath at rest and shortness of breath with exertion; Denies cough or excessive phlegm production Gastrointestinal Gastrointestinal: Denies abdominal pain, nausea or vomiting Genitourinary Genitourinary: Denies dysuria Musculoskeletal Musculoskeletal: Denies joint pain or joint swelling Integumentary Integumentary: Denies rash or wounds Neurologic Neurologic: Denies focal weakness, numbness or tingling Psychiatric Psychiatric: Denies anxiety, auditory hallucinations, depression, homicidal ideation or suicidal ideation Vital Signs Vital Signs Vital Signs: 01/16/24 16:38 01/16/24 18:57 Temperature 96.8 F L Temperature Source Temporal Pulse Rate 68 73 Pulse Rhythm Regular Pulse Strength Normal (2+) Respiratory Rate 18 18 Respiratory Effort Short of Breath Labored Respiratory Depth Normal Respiratory Pattern Tachypnea Blood Pressure 171/76 H Blood Pressure Mean 107 Blood Pressure Source Monitor Blood Pressure Position Semi-Fowlers Blood Pressure Location Left Arm Pulse Ox 94 95 Oxygen Delivery Method Nasal Cannula Nasal Cannula Oxygen Flow Rate (L/min) 4 4 Weight Weight: 82.1 kg Body Mass Index (BMI) 32.1 Physical Exam Const alert General Appearance: cooperative HEENT normocephalic Eyes PERRL and EOMs intact bilaterally Neck supple, no JVD and no carotid bruits Resp normal respiratory effort, normal air movement and clear to auscultation bilaterally Auscultation: rhonchi and wheezes Cardio regular rate and regular rhythm GI normal to inspection, nondistended, normoactive bowel sounds, non-tender and non-distended Extremity normal capillary refill General Extremity: Negative for edema Skin no rashes or lesions noted General Skin Exam: no breakdown Psych affect normal Appearance: appropriate Assessment & Plan Assessment/Plan (1) Debility: (2) Acute respiratory failure with hypoxia: (3) COPD exacerbation: (4) Pneumonia: QUALIFIERS: Laterality: bilateral Lung location: unspecified part of lung Pneumonia type: due to unspecified organism Qualified Code(s): J18.9 - Pneumonia, unspecified organism (5) AUGUSTINA (acute kidney injury): (6) COVID-19: (7) Non-ST elevation AR (NSTEMI): (8) Overactive bladder: (9) Vitamin D deficiency: (10) Essential (primary) hypertension: (11) Hyperlipidemia, unspecified: (12) GERD (gastroesophageal reflux disease): (13) Mixed connective tissue disease: (14) Tobacco abuse: PLAN: Plan 73 year old female with below past medical history significant for recent covid- 19, nstemi requiring stent, hospitalized for acute respiratory failure with hypoxia 2/2 copd exacerbation, pneumonia, complicated by acute kidney injury, left upper lobe lung mass, admitted to TCU with debility, here for rehabilitation, strengthening, prior to discharge home with . * Debility - PT/OT. * Pain - Tylenol 1000mg po q6 prn pain (1-3), Tramadol 50mg q6 prn pain (4-5), Oxycodone 5mg q4 prn pain (6-10). * Bowel - senna/colace 2 tablets bid, Magnesium citrate 300ml po daily prn. * Adult immunization - Administer pneumonia vaccine, covid vaccine, flu vaccine as appropriate. * DVT prophylaxis - Hold, on dual antiplatelet therapy. * COPD - Fluticasone/Salmeterol 232-14 1 puff q12, Incruse 1 puff daily, Albuterol 2.5mg neb q4 prn, Prednisone taper. * Coronary artery disease/nstemi/stent - Coreg 6.25mg bid, Lisinopril 10mg daily, Plavix 75mg daily, Aspirin 81mg daily. * Hyperlipidemia - Atorvastatin 40mg qhs. * Vitamin D deficiency - D3 50mcg daily. * Nutrition - Ensure Clear 120l tidcm. * MCTD - Plaquenil 200mg bidcm. * Pneumonia - Levaquin 750mg po q48 thru 01/21/2024. * GERD - Pantoprazole 20mg bid.
[2024-01-17] VITALS (8 sets, daily range): BP systolic 152–178; BP diastolic 57–84; PULSE 69–77; RESP 19–26; TEMP 36; O2SAT 95–99
[2024-01-17] MEDS: Carvedilol 6.25 MG Tablet PO ×3 (00:10→20:46)
[2024-01-17] MEDS: Atorvastatin Calcium 40 MG Tablet PO ×2 (00:11→20:46)
[2024-01-17] MEDS: Fluticasone/Salmeterol 232-14 Inhaler 1 PUFF INHALATION ×3 (00:11→20:47)
[2024-01-17] MEDS: Pantoprazole Sodium 20 MG Tablet PO ×3 (00:12→20:47)
[2024-01-17] MEDS: Senna/Docusate Sodium 1 Tablet 2 TABLET PO ×3 (00:12→20:47)
--- NOTE | 2024-01-17 05:28 | NURSING ---
Addendum entered by Azul Dunn 01/17/24 05:33: Lungs w/ faint crackles to b/l bases. Remainder of lung lópez clear, diminished. Original Note: Moderate amount of blood noted in toilet after voiding. No clots noted. Encouraged and refilled water. Resident notes she does not drink water. Has several cans and bottles of various varieties of pop on overbed table. Strongly encouraged water to promote passing kidney stone(s). Fan placed on night stand per resident request and respiratory therapy contacted to administer a breathing tx. O2 at 4 lpm via nc. SpO2 99% after ambulation. Respiration even and rapid, using accessory muscles. In mild to moderate distress. Will continue to monitor.
[2024-01-17] MEDS: Albuterol 2.5 MG/3 ML VIAL.NEB. INHALATION ×3 (05:36→20:00)
[2024-01-17 06:18] LABS: Absolute Lymphocyte Count 2.87 X10^3/uL (0.83-4.51); Basophil# 0.06 X10^3/uL; Basophil% 0.4 % (0-1); Eosinophil# 0.04 X10^3/uL; Eosinophils% 0.2 % (0-5); Hemoglobin 10.1 g/dL (12.0-15.0); Lymphocyte # 2.87 X10^3/ul (0.83-4.51); Lymphocyte % 17.2 % (19-41); Mean Corp Hgb Conc 32.6 g/dL (32-36); Mean Corpuscular Hgb 30.7 pg (27.0-32.0); Mean Corpuscular Volume 94.2 fL (81-99); Mean Platelet Vol. 10.1 fl (6.2-12.0); Monocyte% 8.4 % (0-10); NRBC Flagged by Analyzer 0 % (0-5); Neutrophil # 12.03 X10^3/uL (2.7-7.7); Neutrophil % 71.8 % (47-70); Platelet Count 300 K/mm3 (150-450); RBC Distribution Width SD 49.4 fl (35.1-43.9); Red Blood Count 3.29 M/mm3 (4.2-5.4); White Blood Count 16.7 K/mm3 (4.4-11.0)
[2024-01-17 07:10] LABS: Anion Gap 7 (5-15); BUN 32 mg/dL (7-18); BUN/Creat Ratio 26.9 RATIO (10-20); Calcium,Total 9.4 mg/dL (8.5-10.1); Chloride 103 mmol/L (98-107); Creatinine, Serum 1.19 mg/dL (0.55-1.02); EST Glomerular Filtration Rate 47 mL/min (>60); Est Glom Filt Rate - Afr Amer 57 mL/min (>60); Estimated Creatinine Clearance 42.73 ml/min; Glucose 123 mg/dL (74-106); Potassium 4.3 mmol/L (3.5-5.1); Sodium Level 139 mmol/L (136-145)
[2024-01-17] MEDS: Aspirin 81 MG TAB.CHEW PO (09:11)
[2024-01-17] MEDS: predniSONE 20 MG Tablet PO (09:12)
[2024-01-17] MEDS: Hydroxychloroquine 200 MG Tablet PO ×2 (09:12→17:27)
[2024-01-17] MEDS: Umeclidinium Bromide Inhaler 1 PUFF INHALATION (09:13)
[2024-01-17] MEDS: Clopidogrel Bisulfate 75 MG Tablet PO (09:13)
[2024-01-17] MEDS: levoFLOXacin 750 MG Tablet PO (09:13)
[2024-01-17] MEDS: Lisinopril 10 MG Tablet PO (09:14)
[2024-01-17] MEDS: Cholecalciferol (VIT D3) 25 MCG TABLET (1,000 UNITS) 50 MCG PO (09:14)
[2024-01-17] MEDS: LORazepam 0.5 MG Tablet PO ×2 (09:17→23:41)
[2024-01-17] MEDS: Ensure Clear 120 ML Liquid PO ×4 (09:17→20:48)
--- NOTE | 2024-01-17 09:34 | NURSING ---
Art Display Maker Note; Activity Asst: Shy Winston has returned to TCU and remains independent in her choice of daily activities. While on TCU she will watch tv, read, work on word puzzles, have visit w/family, friends and welcomes visits with the medical lab specialist and therapy dog. She has a smartphone she uses for texting, talking and games. Staff will encourage group activities, remind her of weekly activities and respect her right to say no.
[2024-01-17] MEDS: Tuberculin,Purif.prot.deriv. 50 TU/ML Vial 0.1 ML ID (09:55)
--- NOTE | 2024-01-17 12:56 | CASEMGMT ---
Social Work SW met with patient to complete initial assessment. Pt known to this worker from previous stay. Verified/updated contacts. patient confirmed code status at full code. SW requested provide copies of advanced directives. Educated to [facility] insurance with [employer] 01/22 and continued stay is not guaranteed with each review. Pt's goal is to return home at [facility]. SW will continue to follow for DC planning. Lyndsay Dorantes [employer]
--- NOTE | 2024-01-17 13:06 | CHAPLAIN ---
Type of Pastoral Visit ___ Initial Visit _x__ Follow-up Visit ___ On-call Visit ___ General Patient Visit ___ Spiritual Assessment ___ Family Conference ___ Bereavement ___ Rapid Response ___ Code Blue ___ Other (describe below) Pastoral Care Referral From _x__ Patient ___ Family ___ Nurse ___ Physician ___ Preschool Aide ___ Provider Relations Specialist ___ Other (describe below) Sacrament/Intervention _x__ Active listening ___ Anointing ___ Adventist ___ Bereavement ___ Communion ___ Charity exploration ___ ___ Life review _x__ Prayer ___ Reconciliation ___ Sacrament of Sick _x__ Supportive presence ___ Wedding ___ Other (describe below) Pastoral Comments this patient had been seen earlier this week in the PCU; pt is alone now and is asked about her health, her feelings, and how she is coping with everything while in the TCU; pt answers questions appropriately; pt acknowledges some improvements and some hope for getting back to her former self; pt engages in brief casual conversation and welcomes a prayer when her lunch tray arrived
[2024-01-17] MEDS: Acetaminophen 500 MG Tablet 1000 MG PO (23:40)
[2024-01-18] VITALS (9 sets, daily range): BP systolic 150–155; BP diastolic 66; PULSE 71–72; RESP 18–20; TEMP 36; O2SAT 95–99
[2024-01-18] MEDS: Albuterol 2.5 MG/3 ML VIAL.NEB. INHALATION ×5 (00:03→21:46)
--- NOTE | 2024-01-18 01:40 | NURSING ---
0100; pt called out. stating she was anxious and felt sob and was having generalized pain. respiratory called for treatment, pt given ativan and tylenol. pt had good relief sleeping comfortably.
[2024-01-18] MEDS: Ensure Clear 120 ML Liquid PO ×4 (05:49→20:47)
[2024-01-18] MEDS: predniSONE 20 MG Tablet PO (08:12)
[2024-01-18] MEDS: Hydroxychloroquine 200 MG Tablet PO ×2 (08:12→17:14)
[2024-01-18] MEDS: Aspirin 81 MG TAB.CHEW PO (08:12)
[2024-01-18] MEDS: Fluticasone/Salmeterol 232-14 Inhaler 1 PUFF INHALATION ×2 (11:14→20:48)
[2024-01-18] MEDS: Umeclidinium Bromide Inhaler 1 PUFF INHALATION (11:14)
[2024-01-18] MEDS: Carvedilol 6.25 MG Tablet PO ×2 (11:17→20:48)
[2024-01-18] MEDS: Clopidogrel Bisulfate 75 MG Tablet PO (11:17)
[2024-01-18] MEDS: Pantoprazole Sodium 20 MG Tablet PO ×2 (11:18→20:47)
[2024-01-18] MEDS: Cholecalciferol (VIT D3) 25 MCG TABLET (1,000 UNITS) 50 MCG PO (11:18)
[2024-01-18] MEDS: Senna/Docusate Sodium 1 Tablet 2 TABLET PO (11:18)
[2024-01-18] MEDS: Lisinopril 10 MG Tablet PO (11:19)
[2024-01-18] MEDS: LORazepam 0.5 MG Tablet PO ×2 (12:24→21:34)
--- NOTE | 2024-01-18 17:03 | PCM.PN.DRR ---
Documented by User: Vonda Carvajal 01/18/24 17:27 TCU RX Drug Regimen Review Subjective/Objective Subjective/Objective: Subjective: TCU Admission. 73 YOF presented unresponsive to the ER. Hospitalized for acute respiratory failure with hypoxia 2/2 copd exacerbation, pneumonia, complicated by acute kidney injury, left upper lobe lung mass. Admitted to TCU with debility for strengthening and rehabilitation. Objective: Allergies bromide salts (bromide) Adverse Reaction (Verified 01/06/24 12:35) Hives strawberry Adverse Reaction (Verified 01/06/24 12:35) Hives frozen strawberries Current Medications Generic Name Dose Route Start Last Admin Trade Name Freq PRN Reason Stop Dose Admin Acetaminophen 1,000 mg 01/16/24 20:22 01/17/24 23:40 Acetaminophen 500 Mg Tablet PO 1,000 mg Q6H PRN PRN Administration Pain Score 1-3 Albuterol Sulfate 2.5 mg 01/16/24 18:25 01/18/24 13:18 Albuterol 2.5 Mg/3 Ml Vial.Neb. INHALATION 2.5 mg Q4H.RT PRN Administration SOB &/OR WHEEZING Aspirin 81 mg 01/17/24 08:00 01/18/24 08:12 Aspirin 81 Mg Tab.Chew PO 81 mg DAILYCM KERRI Administration Atorvastatin Calcium 40 mg 01/16/24 22:00 01/17/24 20:46 Atorvastatin Calcium 40 Mg Tablet PO 40 mg QHS KERRI Administration Carvedilol 6.25 mg 01/16/24 22:00 01/18/24 11:17 Carvedilol 6.25 Mg Tablet PO 6.25 mg BID KERRI Administration Protocol Cholecalciferol 50 mcg 01/17/24 10:00 01/18/24 11:18 Cholecalciferol (Vit D3) 25 Mcg Tablet (1,000 Units) PO 50 mcg DAILY KERRI Administration Clopidogrel Bisulfate 75 mg 01/17/24 10:00 01/18/24 11:17 Clopidogrel Bisulfate 75 Mg Tablet PO 75 mg DAILY KERRI Administration Hydroxychloroquine Sulfate 200 mg 01/16/24 17:00 01/18/24 08:12 Hydroxychloroquine 200 Mg Tablet PO 200 mg BIDCM KERRI Administration Levofloxacin 750 mg 01/17/24 10:00 01/17/24 09:13 Levofloxacin 750 Mg Tablet PO 01/21/24 10:01 750 mg Q48 KERRI Administration Lisinopril 10 mg 01/17/24 10:00 01/18/24 11:19 Lisinopril 10 Mg Tablet PO 10 mg DAILY KERRI Administration Protocol Lorazepam 0.5 mg 01/17/24 07:50 01/18/24 12:24 Lorazepam 0.5 Mg Tablet PO 0.5 mg Q4H PRN PRN Administration ANXIETY/RESTLESSNESS/SLEEP Magnesium Citrate 300 ml 01/16/24 20:28 Magnesium Citrate 300 Ml PO DAILY PRN Constipation Nutritional Formula (Lactose Free) 120 ml 01/17/24 17:00 01/18/24 12:24 Ensure Clear 120 Ml Liquid PO 120 ml 4X/DAY KERRI Administration Oxycodone HCl 5 mg 01/16/24 20:21 Oxycodone 5 Mg Tablet PO Q4H PRN PRN Pain Score 6-10 or Pre PT/OT Pantoprazole Sodium 20 mg 01/16/24 22:00 01/18/24 11:18 Pantoprazole Sodium 20 Mg Tablet PO 20 mg BID KERRI Administration Prednisone 40 mg 01/17/24 08:00 01/18/24 08:12 Prednisone 20 Mg Tablet PO 01/29/24 07:59 40 mg BREAKFAST KERRI Administration Taper Fluticasone/Salmeterol 1 puff 01/16/24 22:00 01/18/24 11:14 Fluticasone/Salmeterol 232-14 Inhaler INHALATION 1 puff Q12 KERRI Administration Senna/Docusate Sodium 2 tablet 01/16/24 22:00 01/18/24 11:18 Senna/Docusate Sodium 1 Tablet PO 2 tablet BID KERRI Administration Sodium Chloride 10 - 40 ml 01/16/24 16:46 0.9% Saline Lock 10 Ml Syringe IV UD PRN SALINE FLUSH Tramadol HCl 50 mg 01/16/24 20:22 Tramadol 50 Mg Tablet PO Q6H PRN PRN Pain Score 4-5 or Pre PT/OT Tuberculin PPD 0.1 ml 01/24/24 10:00 Tuberculin,Purif.Prot.Deriv. 50 Tu/Ml Vial ID 01/24/24 10:01 X1 ONE Umeclidinium Townsend 1 puff 01/17/24 10:00 01/18/24 11:14 Umeclidinium [place] Inhaler INHALATION 1 puff DAILY KERRI Administration Problem List Tobacco abuse (Acute) Mixed connective tissue disease (Acute) GERD (gastroesophageal reflux disease) (Acute) Hyperlipidemia, unspecified (Acute) Essential (primary) hypertension (Acute) Vitamin D deficiency (Acute) Non-ST elevation [place] (NSTEMI) (Acute) Acute respiratory failure with hypoxia (Acute) AUGUSTINA (acute kidney injury) (Acute) Pneumonia (Acute) COVID-19 (Acute) Overactive bladder (Acute) Debility (Acute) Vital Signs Temp Pulse Resp BP Pulse Ox O2 Del Method O2 Flow Rate 96.8 F L 71 18 150/66 H 99 Nasal Cannula 4 01/18/24 14:35 01/18/24 14:35 01/18/24 14:35 01/18/24 14:35 01/18/24 14:35 01/18/24 14:35 01/18/24 14:35 Oxygen Flow Rate (L/min) 4 Oxygen Delivery Method Nasal Cannula Weight: 82.1 kg Body Mass Index (BMI) 32.1 Sodium 139 mmol/L (136-145) 01/17/24 05:35 Potassium 4.3 mmol/L (3.5-5.1) 01/17/24 05:35 Chloride 103 mmol/L (98-107) 01/17/24 05:35 Carbon Dioxide 29.0 mmol/L (21.0-32.0) 01/17/24 05:35 Anion Gap 7 (5-15) 01/17/24 05:35 BUN 32 mg/dL (7-18) H 01/17/24 05:35 Creatinine 1.19 mg/dL (0.55-1.02) H 01/17/24 05:35 Est GFR (MDRD) Af Amer 57 mL/min (>60) L 01/17/24 05:35 Est GFR (MDRD) Non-Af 47 mL/min (>60) L 01/17/24 05:35 BUN/Creatinine Ratio 26.9 RATIO (10-20) H 01/17/24 05:35 Glucose 123 mg/dL (74-106) H 01/17/24 05:35 Assessment/Plan: 1. Pain: acetaminophen 1000mg PO Q6H PRN pain 1-3, tramadol 50mg PO Q6H PRN pain 4-5 and oxycodone 5mg PO Q4H PRN pain 6-10. Resident has not had any PRN doses of oxycodone or tramadol. Resident has had 1 dose of acetaminophen for generalized pain score of 3. Please continue to monitor for increased pain and PRN usage. 2. Bowel: senna/docusate 2T PO BID and magnesium citrate 300mL PO daily PRN constipation. Resident has not had any PRN doses. Please continue to monitor for constipation and PRN usage. Last documented bowel movement 01/14/24. 3. Pneumonia: levofloxacin 750mg PO Q48 thru 01/21/24. Please continue to monitor for S/S of infection, WBC (last 16.7K/mm3), renal function (CrCl 42 mL/min, dose appropriately adjusted), tendon pain and diarrhea. 4. CAD/NSTEMI/stent: carvedilol 6.25mg PO BID, lisinopril 10mg PO daily, clopidogrel 75mg PO daily and aspirin 81mg PO daily. Please continue to monitor BP (last 150/66), HR (last 71), renal function, cough, potassium (last 4.3mmol/L), S/S of bleeding and hemoglobin (last 10.1g/dL). 5. COPD: fluticasone/salmeterol 232/14mcg 1puff Q12, Incruse 1 puff daily, Prednisone taper thru 01/29/24 and albuterol 2.5mg nebulized solution Q4H PRN SOB/wheezing. Resident has had 6 doses of albuterol. Please continue to monitor for S/S of thrush, HR, PRN usage, glucose (last 123mg/dL), S/S of infection, increased hunger, insomnia (lorazepam started) and agitation. Please rinse mouth with water and spit following advair administration to prevent thrush. 6. Hyperlipidemia: atorvastatin 40mg PO QHS. Please continue to monitor lipid panel (last 01/07/24), LFTs (last 01/13/24 WNL) and muscle pain. 7. MCTD: hydroxychloroquine 200mg PO BIDCM. Please continue to monitor CBC, rash, weakness and changes in vision. 8. GERD: pantoprazole 20mg PO BID. Please continue to monitor for S/S of GERD, diarrhea (BEERs medication) and magnesium. 9. Vitamin D deficiency: cholecalciferol 50mcg PO daily. Please consider ordering a vitamin D level as the last is from 01/2020. Thanks. Assessment/Plan for indications treated with psychotropic medications: 1. Anxiety/restlessness/sleep: lorazepam 0.5mg PO Q4H PRN anxiety/restlessness/sleep. Resident has had 4 doses so far. GDR not appropriate as this medication was just started. Please continue to monitor for PRN usage, excessive drowsiness, confusion, fall/fractures (BEERs medication) and dementia/delirium (BEERs medication). Medical chart and medication regimen reviewed. The following medication irregularities or issues were identified: 1. Cholecalciferol 50mcg PO daily. Please consider ordering a vitamin D level as the last is from 01/2020. Thanks. Date Date of Note:: 01/18/24 Documented by User: Dr. Sampson Myles MD 01/19/24 15:36 TCU RX Drug Regimen Review Provider Comments Provider responsibility Provider Comments to Recommendations by Pharmacy: Agree
[2024-01-18] MEDS: Atorvastatin Calcium 40 MG Tablet PO (20:48)
[2024-01-19] VITALS (8 sets, daily range): BP systolic 116; BP diastolic 56; PULSE 64–78; RESP 17–28; TEMP 35.9; O2SAT 96–100
[2024-01-19] MEDS: Albuterol 2.5 MG/3 ML VIAL.NEB. INHALATION ×5 (05:08→21:30)
[2024-01-19] MEDS: Ensure Clear 120 ML Liquid PO ×4 (05:17→22:53)
[2024-01-19] MEDS: LORazepam 0.5 MG Tablet PO ×3 (05:20→22:23)
[2024-01-19] MEDS: Hydroxychloroquine 200 MG Tablet PO ×2 (08:07→16:51)
[2024-01-19] MEDS: predniSONE 20 MG Tablet PO (08:07)
[2024-01-19] MEDS: Aspirin 81 MG TAB.CHEW PO (08:07)
[2024-01-19] MEDS: Carvedilol 6.25 MG Tablet PO ×2 (09:04→22:25)
[2024-01-19] MEDS: Fluticasone/Salmeterol 232-14 Inhaler 1 PUFF INHALATION ×2 (09:04→22:24)
[2024-01-19] MEDS: Clopidogrel Bisulfate 75 MG Tablet PO (09:05)
[2024-01-19] MEDS: levoFLOXacin 750 MG Tablet PO (09:05)
[2024-01-19] MEDS: Pantoprazole Sodium 20 MG Tablet PO ×2 (09:05→22:25)
[2024-01-19] MEDS: Lisinopril 10 MG Tablet PO (09:06)
[2024-01-19] MEDS: Cholecalciferol (VIT D3) 25 MCG TABLET (1,000 UNITS) 50 MCG PO (09:06)
[2024-01-19] MEDS: Umeclidinium Bromide Inhaler 1 PUFF INHALATION (09:10)
--- NOTE | 2024-01-19 20:37 | NURSING ---
Contacted Dr. Myles via telephone, notified of RT request to change PRN aerosols to to RTN due to patient frequent request. Notified of continued hematuria, dx staghorn calculus with recent stent placement and discharge summary for acute side of hospital stating patient to remain on aspirin and plavix ,new order received to recheck CBC on 01/20/24 and ok to change PRN albuterol to RTN while awake. Orders repeated back to Dr. Myles.
[2024-01-19] MEDS: Atorvastatin Calcium 40 MG Tablet PO (22:25)
[2024-01-19] MEDS: Acetaminophen 500 MG Tablet 1000 MG PO (22:53)
[2024-01-20] VITALS (7 sets, daily range): BP systolic 165; BP diastolic 67; PULSE 66–77; RESP 14–20; TEMP 36.4; O2SAT 93–99
[2024-01-20] MEDS: Albuterol 2.5 MG/3 ML VIAL.NEB. INHALATION ×4 (02:20→21:58)
[2024-01-20] MEDS: LORazepam 0.5 MG Tablet PO (05:23)
[2024-01-20] MEDS: Ensure Clear 120 ML Liquid PO ×3 (05:24→17:43)
[2024-01-20 05:46] LABS: Absolute Lymphocyte Count 1.77 X10^3/uL (0.83-4.51); Basophil# 0.02 X10^3/uL; Basophil% 0.1 % (0-1); Eosinophil# 0.02 X10^3/uL; Eosinophils% 0.1 % (0-5); Hematocrit 26.6 % (37-47); Hemoglobin 8.6 g/dL (12.0-15.0); Lymphocyte # 1.77 X10^3/ul (0.83-4.51); Lymphocyte % 11.7 % (19-41); Mean Corp Hgb Conc 32.3 g/dL (32-36); Mean Corpuscular Hgb 31.5 pg (27.0-32.0); Mean Corpuscular Volume 97.4 fL (81-99); Mean Platelet Vol. 9.5 fl (6.2-12.0); Monocyte# 1.12 X10^3/uL; Monocyte% 7.4 % (0-10); NRBC Flagged by Analyzer 0 % (0-5); Neutrophil # 12.03 X10^3/uL (2.7-7.7); Neutrophil % 79.4 % (47-70); Platelet Count 213 K/mm3 (150-450); RBC Distribution Width CV 16.6 % (11.6-14.6); RBC Distribution Width SD 54.1 fl (35.1-43.9); Red Blood Count 2.73 M/mm3 (4.2-5.4); White Blood Count 15.2 K/mm3 (4.4-11.0)
[2024-01-20] MEDS: Aspirin 81 MG TAB.CHEW PO (08:40)
[2024-01-20] MEDS: Umeclidinium Bromide Inhaler 1 PUFF INHALATION (08:40)
[2024-01-20] MEDS: Fluticasone/Salmeterol 232-14 Inhaler 1 PUFF INHALATION ×2 (08:40→21:40)
[2024-01-20] MEDS: predniSONE 20 MG Tablet PO (08:41)
[2024-01-20] MEDS: Hydroxychloroquine 200 MG Tablet PO ×2 (08:41→17:44)
[2024-01-20] MEDS: Clopidogrel Bisulfate 75 MG Tablet PO (08:41)
[2024-01-20] MEDS: Carvedilol 6.25 MG Tablet PO ×2 (08:41→21:40)
[2024-01-20] MEDS: Pantoprazole Sodium 20 MG Tablet PO ×2 (08:42→21:40)
[2024-01-20] MEDS: Lisinopril 10 MG Tablet PO (08:42)
[2024-01-20] MEDS: Cholecalciferol (VIT D3) 25 MCG TABLET (1,000 UNITS) 50 MCG PO (08:42)
--- NOTE | 2024-01-20 11:52 | NURSING ---
Offered covid vaccine, VIS provided. Resident refused at this time.
--- NOTE | 2024-01-20 11:54 | NURSING ---
Offered covid vaccine, VIS provided. Resident refuses at this time.
[2024-01-20] MEDS: traMADol 50 MG Tablet PO ×2 (12:28→21:39)
[2024-01-20] MEDS: Atorvastatin Calcium 40 MG Tablet PO (21:40)
[2024-01-21] VITALS (7 sets, daily range): BP systolic 104–124; BP diastolic 48–50; PULSE 58–88; RESP 18–20; TEMP 36.7; O2SAT 95–97; BMI 33.1
[2024-01-21 05:41] LABS: Hemoglobin 7.9 g/dL (12.0-15.0)
[2024-01-21] MEDS: Albuterol 2.5 MG/3 ML VIAL.NEB. INHALATION ×4 (07:15→19:53)
[2024-01-21] MEDS: Carvedilol 6.25 MG Tablet PO ×2 (09:25→22:03)
[2024-01-21] MEDS: Lisinopril 10 MG Tablet PO (09:26)
[2024-01-21] MEDS: levoFLOXacin 750 MG Tablet PO (09:27)
[2024-01-21] MEDS: Cholecalciferol (VIT D3) 25 MCG TABLET (1,000 UNITS) 50 MCG PO (09:27)
[2024-01-21] MEDS: Senna/Docusate Sodium 1 Tablet 2 TABLET PO ×2 (09:28→22:03)
[2024-01-21] MEDS: Hydroxychloroquine 200 MG Tablet PO ×2 (09:28→17:17)
[2024-01-21] MEDS: Aspirin 81 MG TAB.CHEW PO (09:28)
[2024-01-21] MEDS: Clopidogrel Bisulfate 75 MG Tablet PO (09:28)
[2024-01-21] MEDS: predniSONE 20 MG Tablet PO (09:29)
[2024-01-21] MEDS: Pantoprazole Sodium 20 MG Tablet PO ×2 (09:29→22:03)
[2024-01-21] MEDS: Umeclidinium Bromide Inhaler 1 PUFF INHALATION (09:33)
[2024-01-21] MEDS: Fluticasone/Salmeterol 232-14 Inhaler 1 PUFF INHALATION ×2 (09:33→22:03)
--- NOTE | 2024-01-21 10:34 | NURSING ---
Addendum entered by Sandra Love 01/21/24 18:09: dr michaels updated on pt SOB & lightheadedness with ambulation/therapy. new order for ferrex and vit C. pt updated. Original Note: pt does get SOB with exertion, usually when ambulating to BR & back to chair/bed or during therapy and oxygen gets turned up to 4liters and then back to 3 liters at rest. pt hgb 7.9 today, MD monitoring. Rechecking H/H on 01/21.
[2024-01-21] MEDS: traMADol 50 MG Tablet PO (11:11)
[2024-01-21] MEDS: Ensure Clear 120 ML Liquid PO ×3 (13:27→22:03)
[2024-01-21] MEDS: Atorvastatin Calcium 40 MG Tablet PO (22:03)
[2024-01-22] VITALS (9 sets, daily range): BP systolic 127–147; BP diastolic 52–62; PULSE 64–77; RESP 16–22; TEMP 36.1; O2SAT 94–99
[2024-01-22] MEDS: Albuterol 2.5 MG/3 ML VIAL.NEB. INHALATION ×5 (03:49→18:27)
[2024-01-22] MEDS: Ensure Clear 120 ML Liquid PO ×2 (05:35→22:32)
[2024-01-22] MEDS: Magnesium Citrate 300 ML PO (05:38)
[2024-01-22 05:41] LABS: Hemoglobin 8.1 g/dL (12.0-15.0)
--- NOTE | 2024-01-22 05:44 | NURSING ---
Patient given mag citrate for bowel protocol, no bm recorded since 01/17, patient drank 100ml, patient states that is all I can drink right now.
[2024-01-22] MEDS: Senna/Docusate Sodium 1 Tablet 2 TABLET PO ×2 (08:56→22:32)
[2024-01-22] MEDS: Aspirin 81 MG TAB.CHEW PO (08:56)
[2024-01-22] MEDS: Clopidogrel Bisulfate 75 MG Tablet PO (08:56)
[2024-01-22] MEDS: Pantoprazole Sodium 20 MG Tablet PO ×2 (08:56→22:32)
[2024-01-22] MEDS: Carvedilol 6.25 MG Tablet PO ×2 (08:56→22:33)
[2024-01-22] MEDS: Cholecalciferol (VIT D3) 25 MCG TABLET (1,000 UNITS) 50 MCG PO (08:57)
[2024-01-22] MEDS: Lisinopril 10 MG Tablet PO (08:57)
[2024-01-22] MEDS: Iron Polysaccharide Complex 150 MG CAPSULE PO (08:57)
[2024-01-22] MEDS: Ascorbic Acid 500 MG Tablet PO (08:57)
[2024-01-22] MEDS: Fluticasone/Salmeterol 232-14 Inhaler 1 PUFF INHALATION ×2 (08:57→22:32)
[2024-01-22] MEDS: predniSONE 20 MG Tablet PO (08:57)
[2024-01-22] MEDS: Hydroxychloroquine 200 MG Tablet PO ×2 (08:57→17:56)
[2024-01-22] MEDS: Umeclidinium Bromide Inhaler 1 PUFF INHALATION (08:58)
--- NOTE | 2024-01-22 09:50 | CASEMGMT ---
Social Work- SW met with pt to complete MDS assessment. Pt scored 14/15 on BIMS; 0/2 on PHQ9. Pt does report moderate anxiety multiple times per day associated with movement/feeling short of breath. Pt reports that her anxiety is centered around being fearful that she won't be able to take her next breath. Pt reports that she has breathing treatments and increases her oxygen in those moments, but does not have coping tools that she utilizes. SW guided conversation to allow pt to identify coping tools that she feels would be helpful. SW provided education on anxiety/physiological responses, coping tools, and importance of identifying and practicing tools prior to needing them. Pt identified that she could play games on her phone, listen to music, use thought reframing and though replacement, think of happy/milestone memories that bring pt ondina. Pt also reported feeling very tired although she states that she didn't sleep poorly last night. Pt was going to nap prior to family visit later in the morning. Pt stated no needs at this time and that she has found staff and experiences to be very pleasant while on the unit. SW remains available to follow. AUGUSTINE Trujillo
--- NOTE | 2024-01-22 10:07 | CASEMGMT ---
Social Work IDT met with patient, and dtr for care plan meeting. Discussed patient's progress in PT/OT/ST/SN. Educated to [facility] insurance with NRD 01/22 and continued stay is not guaranteed with each review. Pt's goal is to return home with . However, pt had a decline functionally and medically. Coworker social work therapist prior to the meeting completed the MDS and pt voiced anxiety. SW provided resources for grounding techniques. Also educated pt has Ativan ordered PRN. Family acknowledged since the loss of pt's sister, they noticed an overall decline in mood, medical and cognition. SW educated depression can affect all areas of daily living. Offered to speak with Dr on starting medication. Pt and family agreeable. SW left written communication for Dr. Dtr also noted pt likely has sleep apnea and requested a sleep study. Nursing notified to follow up. Pt does need O2 continuously but increase with exertion. SW inquired about assistance available at home. Pt currently needs modA for LE and CGA for tx and ambulation. unsure how much he can assist. SW offered to therapy training closer to DC to ensure can assist, If not, SW to assist with interventions and resources. SW will continue to follow for DC planning. Lyndsay Dorantes, AIRCRAFT DESIGNER [employer] ANALYST
--- NOTE | 2024-01-22 10:56 | CON.PCM.UR_ITS ---
Assessment & Plan Assessment/Plan (1) Kidney stone on right side: PLAN: Plan for cystoscopy stent placement at this point to temporize the situation and then we will set her up for outpatient laser lithotripsy of the stone and shockwave lithotripsy. HPI Consult Data Date of Consult: 01/22/24 HPI Narrative Reason for Consultation: Right staghorn calculus HPI Narrative: ZEINAB HULL, is a 73 female who was in the transitional care unit recovering from a recent hospitalization apparently had COPD and is in rehab to improve she does have a large stone in the right renal pelvis it is 2.5 cm in size she has been having gross hematuria possible obstruction so plan today is taken to surgery and for now I think it is going to temporize the situation for cystoscopy and stent placement on the right side this to make sure that there is no blockage she still have hematuria even after I placed a stent but hopefully will alleviate the blockage and then up to get her set up for outpatient surgery or surgery later on when she is stable to go back and either laser the stone or consider percutaneous procedure but given the shortage of IV fluids probably would consider lasering or maybe doing shockwave lithotripsy followed by laser after that to conserve fluids instead of doing a percutaneous which would require heavy amount of normal saline with our current shortage constraints. So for now have asked the patient to be n.p.o. and will take her to surgery for today for cystoscopy and right stent placement. [facility] Medical History Non-ST elevation [place] (NSTEMI) GI bleed COVID-19 Acute [place] Atherosclerosis of coronary artery of [place] heart without angina pectoris Staghorn renal calculus Urinary tract infection Gross hematuria Acute dehydration Skin tag History of left breast cancer RIGHT ANKLE FRACTURE REPAIR EXCISION STOMACH TUMOR Parkinson disease Mixed connective tissue disease Polyarthropathy Lupus Hypertension COPD (chronic obstructive pulmonary disease) Asthma Arthritis Pulmonary nodules/lesions, multiple Tobacco use disorder Breast pain Osteopenia Malignant neoplasm of central portion of female breast Low bone density Home Medications ?Medication ?Instructions ?Recorded ?Last Taken ?Type tramadol 50 mg tablet 50 mg PO DAILY PRN Pain Score 1-10 03/02/14 01/12/24 History oxybutynin chloride 5 mg tablet 5 - 10 mg PO BID pain 01/25/20 01/12/24 History cholecalciferol (vitamin D3) 50 2,000 unit PO DAILY deficiency 07/27/20 01/12/24 History mcg (2,000 unit) capsule hydroxychloroquine 200 mg tablet 200 mg PO BIDCM arthritis 07/27/20 01/12/24 History aspirin 81 mg chewable tablet 81 mg PO DAILYCM Heart #0 tabs 06/06/23 01/16/24 Rx budesonide 160 mcg-glycopyr 9 2 inh inhalation BID breathing 07/05/23 01/12/24 Rx mcg-formot 4.8 mcg/actuation HFA #10.7 grams inhaler (Breztri Aerosphere) atorvastatin 40 mg tablet 40 mg PO QHS cholesterol #30 tabs 01/07/24 01/15/24 Rx carvedilol 6.25 mg tablet 6.25 mg PO BID blood pressure #60 01/07/24 01/16/24 Rx tabs clopidogrel 75 mg tablet (Plavix) 75 mg PO DAILY blood thinner #30 01/07/24 01/16/24 Rx tabs lisinopril 10 mg tablet 10 mg PO DAILY blood presure #30 01/07/24 01/12/24 Rx tabs omeprazole 20 mg capsule,delayed 20 mg PO BID acid reflux #120 caps 01/08/24 01/16/24 Rx release levofloxacin 750 mg tablet 750 mg PO .q48 Antibiotic #3 tabs 01/16/24 01/16/24 Rx prednisone 20 mg tablet 40 mg (2 x 20 mg) PO DAILYCM 01/16/24 01/16/24 Rx Steriod 7 days #14 tabs Allergy/AdvReac Type Severity Reaction Status Date / Time bromide salts (bromide) AdvReac Hives Verified 01/06/24 12:35 strawberry AdvReac Hives Verified 01/06/24 12:35 Family History Mother Arthritis Diabetes Hypertension Osteoporosis Father Arthritis Heart disease Sister Arthritis Breast cancer Diabetes Hypertension Son Diabetes Other Alzheimer disease Anemia Hyperlipidemia Thyroid disorder Surgical History History of coronary artery stent placement (01/07/24) History of lung biopsy History of tubal ligation History of lumpectomy Hx of cholecystectomy Social History household members: spouse Smoking Status: Current some day smoker tobacco type: cigarettes alcohol intake: never substance use type: does not use Physical Exam Const alert and oriented x3 General Appearance: cooperative HEENT normocephalic and head/scalp atraumatic Eyes PERRL and EOMs intact bilaterally Neck supple, no JVD and no carotid bruits Resp normal respiratory effort, normal air movement and clear to auscultation bilaterally Cardio regular rate and no murmurs GI normal to inspection, nondistended, normoactive bowel sounds and soft to palpation Extremity normal capillary refill General Extremity: no tenderness to palpation of joints or extremities; Negative for edema Skin no rashes or lesions noted and no wounds General Skin Exam: no breakdown Neuro CN's II-XII intact bilaterally Psych affect normal Appearance: appropriate Medical Records Data Medical Nutrition Assessment Dietitian: Malnutrition Criteria Met Start: 01/17/24 12:04 Freq: Status: Active Protocol: Document 01/17/24 15:18 SB (Rec: 01/17/24 15:18 SB [id number]) Nutrition Malnutrition Evidence of Malnutrition Exists Yes Malnutrition (severe): Chronic Evidenced By Suboptimal Energy Intake ( Severe),Weight Loss (Severe) Clinical Problem Chronic Disease or Condition Related Malnutrition Etiology severe related to inadequate oral intake Signs/Symptoms as evidenced by 14.6% unintentional weight loss x 6 months and PO meeting <75% of estimated nutrition needs x 1. 5 months. Status Active Problem Recommendation Dietitian Recommendations/Changes Adjust to liberal regular diet d/t signs and symptoms of malnutrition. Adjust ensure clear to 4x daily with medpass. Will monitor weight, as available. Reviewed and approved by Michelle Govea RDN, JAMEL. Lab / Micro Data 01/22/24 05:32 01/17/24 05:35 Labs: Laboratory Results - last 24 hr 01/22/24 05:32: Hgb 8.1 L, Hct 25.0 L Micro: Microbiology 01/21/24 05:00 Nasal Secretion SARS-CoV-2 Antigen (Rapid) - Final
--- NOTE | 2024-01-22 11:12 | MDS.RN ---
This Nurse received phone call from Dr. Anisa Vergara. received to make pt NPO starting Now and he will put a Stent in for the right kidney stone and possibly laser stone at a later date. Order read back and pt and Family updated.
--- NOTE | 2024-01-22 11:23 | DCINST_ITS ---
Discharge Instructions Diet Discharge Diet: No restrictions Activity Discharge Activity: Return to Normal Activity and May Not Drive (while taking narcotic pain medications.) Dressing / Incision Call your doctor if you observe: Fever of 101 or Higher Follow Up Care Please Follow Up With: Justyn Lange MD When: Call [phone] for an appointment Test Results: Test results from this visit will be discussed in further detail at your follow- up appointment, if applicable. Discharge Plan Admission Admit Date/Time: 01/16/24 16:10 Attending Provider: Sampson Myles Chi Primary Care Provider: Haritha Alonso Consulting Providers: Justyn Lange Discharge Orders/Prescriptions Prescriptions: No Action Breztri Aerosphere 160-9-4.8 mcg/actuation HFA aerosol inhaler 2 inh inhalation BID Qty: 10.7 6RF tramadol 50 MG tablet 50 mg PO DAILY PRN (Reason: Pain Score 1-10) oxybutynin chloride 5 MG tablet 5 - 10 mg PO BID hydroxychloroquine 200 MG tablet 200 mg PO BIDCM cholecalciferol (vitamin D3) 2,000 UNIT capsule 2,000 unit PO DAILY aspirin 81 mg Tablet,Chewable 81 mg PO DAILYCM Qty: 0 0RF atorvastatin 40 mg Tablet 40 mg PO QHS Qty: 30 0RF carvedilol 6.25 mg Tablet 6.25 mg PO BID Qty: 60 0RF lisinopril 10 mg Tablet 10 mg PO DAILY Qty: 30 0RF clopidogrel [Plavix] 75 mg tablet 75 mg PO DAILY Qty: 30 0RF Rx Instructions: start on 01/07/24 omeprazole 20 mg capsule,delayed release(DR/EC) 20 mg PO BID Qty: 120 0RF prednisone 20 mg Tablet 40 mg PO DAILYCM 7 Days Qty: 14 0RF levofloxacin 750 mg tablet 750 mg PO .q48 Qty: 3 0RF Referrals / Follow Up: Haritha Alonso, APPLICATION SUPPORT CONSULTANT-C [Primary Care Provider] -
--- NOTE | 2024-01-22 13:15 | NURSING ---
Pt off unit for Stent placement with Dr. Lange
--- NOTE | 2024-01-22 14:48 | CPS ---
breathing treatment done in [facility]
--- NOTE | 2024-01-22 17:11 | NURSING ---
Received report from Drea TOVAR that pt did not have stent place d/t Dr. Lange unable to do surgery tonight and would like to wait until morning. Pt to be NPO after midnight and GROUND HOST/HOSTESS to take down at 0630.
[2024-01-22] MEDS: LORazepam 0.5 MG Tablet PO ×2 (22:31)
[2024-01-22] MEDS: Atorvastatin Calcium 40 MG Tablet PO (22:32)
--- NOTE | 2024-01-23 00:01 | NURSING ---
NPO initiated per order
[2024-01-23] MEDS: Albuterol 2.5 MG/3 ML VIAL.NEB. INHALATION (05:45)
[2024-01-23 05:50] VITALS: PULSE 70; RESP 22; O2SAT 97
--- NOTE | 2024-01-23 05:59 | NURSING ---
Maame calls from , patient to arrive at at 0630. Confirmed with Maame, [facility] to transport patient at [address] Lange
--- NOTE | 2024-01-23 06:14 | NURSING ---
x2 phlebotomists attempt am lab draws per order, unable to obtain. Written communication left for Dr. Myles
--- NOTE | 2024-01-23 06:23 | NURSING ---
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 Lange, patient A&Ox3, O2 in place per order. No distress observed or reported.
--- NOTE | 2024-01-23 08:35 | DS.PCM_ITS ---
Providers Date of Admission: 01/16/24 Primary Care Physician: JUANI BoyleC Consultations 01/21/24 17:33 Consult: Urology Routine Consulting Provider: Justyn Lange Reason for Consult: Hematuria, right staghorn calculus, recent nstemi stent, dual antiplatelet. EMERGENT Consult: No MD Notified: Yes Date Notified: 01/22/24 Time Notified: 08:45 Method of Notification: Answering Service Comments:: Spoke with Jil Reason For Visit: BILATEREAL PNEUMONIA Diagnosis Discharge Diagnosis (1) Kidney stone on right side: Status: Acute Code(s): N20.0 - Calculus of kidney Plan 73 year old female with below past medical history significant for recent covid- 19, nstemi requiring stent, hospitalized for acute respiratory failure with hypoxia 2/2 copd exacerbation, pneumonia, complicated by acute kidney injury, left upper lobe lung mass, admitted to TCU with debility, here for rehabilitation, strengthening, prior to discharge home with . * Debility - PT/OT. * Pain - Tylenol 1000mg po q6 prn pain (1-3), Tramadol 50mg q6 prn pain (4-5), Oxycodone 5mg q4 prn pain (6-10). * Bowel - senna/colace 2 tablets bid, Magnesium citrate 300ml po daily prn. * Adult immunization - Administer pneumonia vaccine, covid vaccine, flu vaccine as appropriate. * DVT prophylaxis - Hold, on dual antiplatelet therapy. * COPD - Fluticasone/Salmeterol 232-14 1 puff q12, Incruse 1 puff daily, Albuterol 2.5mg neb q4 prn, Prednisone taper. * Coronary artery disease/nstemi/stent - Coreg 6.25mg bid, Lisinopril 10mg daily, Plavix 75mg daily, Aspirin 81mg daily. * Hyperlipidemia - Atorvastatin 40mg qhs. * Vitamin D deficiency - D3 50mcg daily. * Nutrition - Ensure Clear 120l tidcm. * MCTD - Plaquenil 200mg bidcm. * Pneumonia - Levaquin 750mg po q48 thru 01/21/2024. * GERD - Pantoprazole 20mg bid. Medications at Discharge Home Medications tramadol 50 mg tablet 50 mg PO DAILY PRN Pain Score 1-10 03/02/14 oxybutynin chloride 5 mg tablet 5 - 10 mg PO BID pain 01/25/20 cholecalciferol (vitamin D3) 50 mcg (2,000 unit) capsule 2,000 unit PO DAILY deficiency 07/27/20 hydroxychloroquine 200 mg tablet 200 mg PO BIDCM arthritis 07/27/20 aspirin 81 mg chewable tablet 81 mg PO DAILYCM Heart #0 tabs 06/06/23 budesonide 160 mcg-glycopyr 9 mcg-formot 4.8 mcg/actuation HFA inhaler (Breztri Aerosphere) 2 inh inhalation BID breathing #10.7 grams 07/05/23 atorvastatin 40 mg tablet 40 mg PO QHS cholesterol #30 tabs 01/07/24 carvedilol 6.25 mg tablet 6.25 mg PO BID blood pressure #60 tabs 01/07/24 clopidogrel 75 mg tablet (Plavix) 75 mg PO DAILY blood thinner #30 tabs 01/07/24 lisinopril 10 mg tablet 10 mg PO DAILY blood presure #30 tabs 01/07/24 omeprazole 20 mg capsule,delayed release 20 mg PO BID acid reflux #120 caps 01/08/24 levofloxacin 750 mg tablet 750 mg PO .q48 Antibiotic #3 tabs 01/16/24 prednisone 20 mg tablet 40 mg (2 x 20 mg) PO DAILYCM Steriod 7 days #14 tabs 01/16/24 Hospital Course Summary of Care Provided Minutes Spent on Discharge: 15 Hospital Course: 73 year old female with below past medical history significant for recent covid- 19, nstemi requiring stent, hospitalized for acute respiratory failure with hypoxia 2/2 copd exacerbation, pneumonia, complicated by acute kidney injury, left upper lobe lung mass, admitted to TCU with debility, here for rehabilitation, strengthening, prior to discharge home with . 01/21/2024 Gross hematuia 2/2 right staghorn calculus persists. 01/23/2024 Dr. Lange performed cystoscopy, right ureteral stent placement. Discharge to [facility] 01/23/2024 for postoperative stabilization, monitoring. Medical Records Data Medical Nutrition Assessment Dietitian: Malnutrition Criteria Met Start: 01/17/24 12:04 Freq: Status: Active Protocol: Document 01/22/24 14:32 SLA (Rec: 01/22/24 14:32 SLA ..25.7) Nutrition Malnutrition Evidence of Malnutrition Exists Yes Malnutrition (severe): Chronic Evidenced By Suboptimal Energy Intake ( Severe),Weight Loss (Severe) Clinical Problem Chronic Disease or Condition Related Malnutrition Etiology severe related to inadequate oral intake Signs/Symptoms as evidenced by 14.6% unintentional weight loss x 6 months sloop captain and PO meeting <75% of estimated nutrition needs x 1.5 months sloop captain. Status Active Problem Recommendation Dietitian Recommendations/Changes Continue liberal regular diet d/t signs and symptoms of malnutrition. Continue ensure clear to 4x daily with medpass. Will monitor weight, as available. Weight / BMI Weight Weight: 84.8 kg Body Mass Index (BMI) 33.1 ABG / Lab / Microbiology Data 01/22/24 05:32 01/17/24 05:35 Microbiology: Microbiology 01/21/24 05:00 Nasal Secretion SARS-CoV-2 Antigen (Rapid) - Final D/C Instructions Discharge Diet: No restrictions Discharge Activity: Return to Normal Activity, May Shower and Use Walker Weight Bearing Status: Weight bearing as tolerated Call your doctor if you observe: Fever of 101 or Higher, Inability to urinate, Inability to have a bowel movement, Shortness of breath, Dizziness, Fainting spells, Swelling in the ankles, Chest pain and Uncontrolled pain Additional Instructions: Discharge to [facility] 01/23/2024 for postoperative stabilization, monitoring. Please Follow Up With: Justyn Lange MD When: Call [phone] for an appointment Meaningful Use Info Meaningful Use Meaningful Use Diagnoses (Choose all that apply): None applicable Ischemic Stroke Statin Dosing Therapy Reference: STATIN DOSE THERAPY REFERENCE: * Patients > 75 years receive moderate or high dose statin therapy. * Patients 75 years or YOUNGER should receive HIGH intensity statin dose unless contraindicated. You will be required to document reason for non-treatment if statin daily dose does not meet guidelines. HIGH DOSE STATIN THERAPY DAILY Atorvastatin > than or = to 40 mg Rosuvastatin > than or = to 20 mg Amlodipine + Atorvastatin > than or = to 2.5/40 mg Ezetimibe + Simvastatin 10/80 mg Simvastatin 80mg Discharge Plan Admission Admit Date/Time: 01/16/24 16:10 Primary Reason for Your Visit: Debility. Attending Provider: Sampson Myles Chi Primary Care Provider: Haritha Alonso Consulting Providers: Justyn Lange Instructions Additional Instructions / Restrictions: Discharge to [facility] 01/23/2024 for postoperative stabilization, monitoring. Discharge Orders/Prescriptions Prescriptions: No Action Reji Aerosphere 160-9-4.8 mcg/actuation HFA aerosol inhaler 2 inh inhalation BID Qty: 10.7 6RF tramadol 50 MG tablet 50 mg PO DAILY PRN (Reason: Pain Score 1-10) oxybutynin chloride 5 MG tablet 5 - 10 mg PO BID hydroxychloroquine 200 MG tablet 200 mg PO BIDCM cholecalciferol (vitamin D3) 2,000 UNIT capsule 2,000 unit PO DAILY aspirin 81 mg Tablet,Chewable 81 mg PO DAILYCM Qty: 0 0RF atorvastatin 40 mg Tablet 40 mg PO QHS Qty: 30 0RF carvedilol 6.25 mg Tablet 6.25 mg PO BID Qty: 60 0RF lisinopril 10 mg Tablet 10 mg PO DAILY Qty: 30 0RF clopidogrel [Plavix] 75 mg tablet 75 mg PO DAILY Qty: 30 0RF Rx Instructions: start on 01/07/24 omeprazole 20 mg capsule,delayed release(DR/EC) 20 mg PO BID Qty: 120 0RF prednisone 20 mg Tablet 40 mg PO DAILYCM 7 Days Qty: 14 0RF levofloxacin 750 mg tablet 750 mg PO .q48 Qty: 3 0RF Referrals / Follow Up: Haritha Alonso NP-C [Primary Care Provider] - Disposition Disposition (needs filled in before D/C Order can be placed): Acute Care Hospital [facility]
--- NOTE | 2024-01-28 09:48 | MDS.RN ---
Information for the MDS was obtained from review of the clinical record, interview of resident, staff, and direct observation of resident?s care.
== END 2024-01-23 06:30 | disposition short-term general hospital (02) | DRG 193 ==
PROVIDERS: Admitting Provider Family Medicine Geriatric Medicine; PCP Nurse Practitioner Family; Referring Provider Family Medicine Geriatric Medicine; Visit Provider Family Medicine Geriatric Medicine
DX: J18.9 Pneumonia, unspecified organism (principal); I21.A1 Myocardial infarction type 2; E44.1 Mild protein-calorie malnutrition; J44.0 Chronic obstructive pulmonary disease with (acute) lower respiratory infection; J44.1 Chronic obstructive pulmonary disease with (acute) exacerbation; G20.A1 Parkinson's disease without dyskinesia, without mention of fluctuations; I10 Essential (primary) hypertension; F32.A Depression, unspecified; Z68.33 Body mass index [BMI] 33.0-33.9, adult; F41.9 Anxiety disorder, unspecified; E55.9 Vitamin D deficiency, unspecified; K21.9 Gastro-esophageal reflux disease without esophagitis; E78.5 Hyperlipidemia, unspecified; I25.10 Atherosclerotic heart disease of native coronary artery without angina pectoris; G47.33 Obstructive sleep apnea (adult) (pediatric); Z95.5 Presence of coronary angioplasty implant and graft; N32.81 Overactive bladder; Z79.02 Long term (current) use of antithrombotics/antiplatelets; R91.8 Other nonspecific abnormal finding of lung field; Z79.82 Long term (current) use of aspirin; Z79.899 Other long term (current) drug therapy; Z86.16 Personal history of COVID-19; N20.0 Calculus of kidney
CPT/HCPCS: 36415; 80048; 82306; 85014; 85018; 85025; 87811; 92523; 94640; 97110; 97116; 97129; 97130; 97162; 97166; 97530; 97535; 97802; 99406

== ENCOUNTER 2024-01-23 08:17 | Inpatient (IN) | payer MEDICARE, SELFPAY ==
[2024-01-22 13:25] VITALS: BP 91/51; PULSE 64; RESP 16; TEMP 36.2; O2SAT 93; BMI 32.4
--- NOTE | 2024-01-22 14:31 | PRE.ANES_ITS ---
ASA Classification* ASA Classification ASA Classification: 3 Assessment & Plan Anesthesia* Anesthesia Assessment Anesthesia Assessment: Discussed sedation and/or anesthesia options, risks, benefits, and alternatives with patient/parents/legal guardian/POA. Questions invited. The patient/parents/legal guardian/POA seems to understand and agrees to proceed with anesthesia plan. Reviewed the physical assessment, medical history, allergy history and patient home medications list prior to surgery/procedure/anesthetic and documented any changes. Performed airway and anesthesia risk assessments. Anesthesia Type Anesthesia Type: MAC History Source History Obtained from:: Patient and Chart Anesthesia Focused Assessment* Temperature: 97.1 F Pulse Rate: 64 Blood Pressure: 91/51 Respiratory Rate: 16 Pulse Ox: 93 Oxygen Delivery Method: Nasal Cannula Airway Assessment Mouth opens: >3 cm Mallampati Score: IV Teeth Condition: Missing (Patient is is edentulous.) Neck Range of motion (ROM): Limited ROM Focused Labs Anesthesia Preop lab: CBC WBC 15.2 K/mm3 (4.4-11.0) H 01/20/24 05:35 RBC 2.73 M/mm3 (4.2-5.4) L 01/20/24 05:35 Hgb 8.1 g/dL (12.0-15.0) L 01/22/24 05:32 Hct 25.0 % (37-47) L 01/22/24 05:32 Plt Count 213 K/mm3 (150-450) 01/20/24 05:35 CHEMISTRY Potassium 4.3 mmol/L (3.5-5.1) 01/17/24 05:35 Sodium 139 mmol/L (136-145) 01/17/24 05:35 Magnesium 2.1 mg/dL (1.6-2.6) 05/30/23 03:02 BUN 32 mg/dL (7-18) H 01/17/24 05:35 Creatinine 1.19 mg/dL (0.55-1.02) H 01/17/24 05:35 Glucose 123 mg/dL (74-106) H 01/17/24 05:35 TSH 1.390 uIU/mL (0.358-3.740) 01/06/24 13:33 COAG PT 18.2 SECONDS (11.7-14.9) H 01/13/24 09:50 Pre-Assessment Diagnosis/Proposed Procedure Planned Operative Procedure(s): cysto with right stent placement Anesthesia History Anesthesia History - mixing machine feeder: Anesthesia History - mixing machine feeder Hx Hospitalization Yes 01/22/24 13:25 Any Problems With Anesthesia No 01/22/24 13:25 Cholinesterase deficiency No 01/22/24 13:25 You/Your Family Experience No 01/22/24 13:25 fever (hyperthermia) with Relationship Recent Exposure to Contagious No 01/22/24 13:25 Disease Does patient have nerve No 01/22/24 13:25 stimulator Patient instructed to have device shut off --Does patient have Pacemaker No 01/22/24 13:25 or ICD? When Was Last Pacemaker Check QUESTION #4 FULL TEXT: You/Your Family Experience fever (hyperthermia) with Anesthesia Last Oral Intake Last Oral intake: Last Oral Intake NPO since Meds taken in AM with sips of water? Meds patient instructed to take am of surgery Any additional information?: Yes NPO since: 07:30 (Patient had breakfast at 7:30 AM.) Meds taken in AM with sips of water?: Yes PONV PONV - mixing machine feeder: PONV - mixing machine feeder Female Yes 01/22/24 13:25 HX of Motion Sickness No 01/22/24 13:25 HX of N/V After Surgery No 01/22/24 13:25 Non-Smoker Yes 01/22/24 13:25 Duration of Surgery greater No 01/22/24 13:25 than 60 minutes Number of Risk Factors 2 01/22/24 13:25 PONV Score Moderate Risk 01/22/24 13:25 Height & Weight Height & Weight: Anesthesia: Height & Weight Height 5 ft 3 in 01/22/24 13:25 Weight: 83.007 kg 01/22/24 13:25 Body Mass Index (BMI) 32.4 01/22/24 13:25 Respiratory Assessment Respiratory Assessment - mixing machine feeder: Respiratory Tract Infection Hx - mixing machine feeder Hx Respiratory Tract Infection Yes 01/22/24 13:25 Any additional information?: Yes Hx Respiratory Tract Infection: Yes (Patient recently had pneumonia on January 07, 2024.) STOP Sleep Apnea STOP Sleep Apnea - mixing machine feeder: STOP Sleep Apnea - mixing machine feeder Hx Hypertension Yes 01/22/24 13:25 Hx Sleep Apnea No 01/22/24 13:25 CPAP No 01/13/24 16:35 BIPAP No 01/13/24 16:35 Do you snore loudly (louder No 01/22/24 13:25 than talking or can be heard Do you often feel tired/ Yes 01/22/24 13:25 fatigued/ sleepy during daytime? Has anyone observed you stop No 01/22/24 13:25 breathing during sleep? STOP Results Positive 01/22/24 13:25 QUESTION #5 FULL TEXT : Do you snore loudly (louder than talking or can be heard through closed doors)? Tobacco Use History Tobacco Use History - mixing machine feeder: Tobacco Use History - mixing machine feeder Tobacco Use Cigarettes 12/23/23 09:25 Smoking Status Former smoker 01/22/24 13:25 Hx Tobacco Use Yes 01/22/24 13:25 Years Smoking Packs Smoked per Day Smoking Cessation Date was Yes - quit smoking within 15 01/22/24 13:25 within the last 15 years years Hx Smoking Cessation Date Hx Smoking Cessation No 01/22/24 13:25 Counseling Hematologic Medial History Hematologic Hx - mixing machine feeder: Hematologic Medical Hx - tooling engineer Hx of Blood Transfusion No 01/22/24 13:25 Hx of Transfusion in last 3 No 01/22/24 13:25 Months Date of Last Transfusion (if within last 3 months) Ever experience any problems No 01/22/24 13:25 with transfusion(s)? Specify any problems Hx of Preganancy in last 3 No 01/22/24 13:25 Months Nurse Filling Out Transfusion DPRIEST 01/22/24 13:25 & Questions: Date: 01/22/24 01/22/24 13:25 Time: 13:31 01/22/24 13:25 Patient unable to answer at this time (ie. confused, unrespo /Reproduction History /Reproductive History - mixing machine feeder: /Reproductive Hx- mixing machine feeder Hx Now No 01/22/24 13:25 Gestational Age (in weeks): EDC: Hx Hx Para Hx Section SAB No 01/22/24 13:25 PFSH Medical History Non-ST elevation [place] (NSTEMI) GI bleed COVID-19 Acute MD Atherosclerosis of coronary artery of [place] heart without angina pectoris Staghorn renal calculus Urinary tract infection Gross hematuria Acute dehydration Skin tag History of left breast cancer RIGHT ANKLE FRACTURE REPAIR EXCISION STOMACH TUMOR Parkinson disease Mixed connective tissue disease Polyarthropathy Lupus Hypertension COPD (chronic obstructive pulmonary disease) Asthma Arthritis Pulmonary nodules/lesions, multiple Tobacco use disorder Breast pain Osteopenia Malignant neoplasm of central portion of female breast Low bone density Home Medications ?Medication ?Instructions ?Recorded ?Last Taken ?Type tramadol 50 mg tablet 50 mg PO DAILY PRN Pain Score 1-10 03/02/14 01/12/24 History oxybutynin chloride 5 mg tablet 5 - 10 mg PO BID pain 01/25/20 01/12/24 History cholecalciferol (vitamin D3) 50 2,000 unit PO DAILY deficiency 07/27/20 01/22/24 History mcg (2,000 unit) capsule hydroxychloroquine 200 mg tablet 200 mg PO BIDCM arthritis 07/27/20 01/12/24 History aspirin 81 mg chewable tablet 81 mg PO DAILYCM Heart #0 tabs 06/06/23 01/22/24 Rx budesonide 160 mcg-glycopyr 9 2 inh inhalation BID breathing 07/05/23 01/12/24 Rx mcg-formot 4.8 mcg/actuation HFA #10.7 grams inhaler (Breztri Aerosphere) atorvastatin 40 mg tablet 40 mg PO QHS cholesterol #30 tabs 01/07/24 01/15/24 Rx carvedilol 6.25 mg tablet 6.25 mg PO BID blood pressure #60 01/07/24 01/22/24 Rx tabs clopidogrel 75 mg tablet (Plavix) 75 mg PO DAILY blood thinner #30 01/07/24 01/22/24 Rx tabs lisinopril 10 mg tablet 10 mg PO DAILY blood presure #30 01/07/24 01/22/24 Rx tabs omeprazole 20 mg capsule,delayed 20 mg PO BID acid reflux #120 caps 01/08/24 01/16/24 Rx release levofloxacin 750 mg tablet 750 mg PO .q48 Antibiotic #3 tabs 01/16/24 01/16/24 R x prednisone 20 mg tablet 40 mg (2 x 20 mg) PO DAILYCM 01/16/24 01/22/24 Rx Steriod 7 days #14 tabs Allergy/AdvReac Type Severity Reaction Status Date / Time bromide salts (bromide) AdvReac Hives Verified 01/22/24 13:12 strawberry AdvReac Hives Verified 01/22/24 13:12 Family History Mother Arthritis Diabetes Hypertension Osteoporosis Father Arthritis Heart disease Sister Arthritis Breast cancer Diabetes Hypertension Son Diabetes Other Alzheimer disease Anemia Hyperlipidemia Thyroid disorder Surgical History History of coronary artery stent placement (01/07/24) History of lung biopsy History of tubal ligation History of lumpectomy Hx of cholecystectomy Social History household members: spouse Smoking Status: Former smoker alcohol intake: never substance use type: does not use Review of Systems (Anesthesia) ROS Narrative System reviewed and no additional complaints, except as documented.
[2024-01-22 14:35] VITALS: BP 91/51; PULSE 64; RESP 16; TEMP 36.2; O2SAT 93
[2024-01-23] VITALS (16 sets, daily range): BP systolic 88–170; BP diastolic 42–73; PULSE 62–666; RESP 16–20; TEMP 36.1–36.7; O2SAT 93–100; BMI 32.4; BMI 34.2
--- NOTE | 2024-01-23 08:19 | HP.PCM_ITS ---
HPI - General General Date of Admission: 01/23/24 Chief Complaint: Bleeding from right kidney stone HPI Narrative ZEINAB HULL, is a 73 F who presents from transferred from TCU she started having heavy bleeding from a stone in the right kidney today she underwent cystoscopy and stent placement again admit the patient because of the bleeding will consult hospitalist to help with medical issues. COUNTS INCLUDE 234 BEDS AT THE [facility] Medical History Non-ST elevation [place] (NSTEMI) GI bleed COVID-19 Acute [place] Atherosclerosis of coronary artery of [place] heart without angina pectoris Staghorn renal calculus Urinary tract infection Gross hematuria Acute dehydration Skin tag History of left breast cancer RIGHT ANKLE FRACTURE REPAIR EXCISION STOMACH TUMOR Parkinson disease Mixed connective tissue disease Polyarthropathy Lupus Hypertension COPD (chronic obstructive pulmonary disease) Asthma Arthritis Pulmonary nodules/lesions, multiple Tobacco use disorder Breast pain Osteopenia Malignant neoplasm of central portion of female breast Low bone density Home Medications ?Medication ?Instructions ?Recorded ?Last Taken ?Type tramadol 50 mg tablet 50 mg PO DAILY PRN Pain Score 1-10 03/02/14 01/12/24 History oxybutynin chloride 5 mg tablet 5 - 10 mg PO BID pain 01/25/20 01/12/24 History cholecalciferol (vitamin D3) 50 2,000 unit PO DAILY deficiency 07/27/20 01/22/24 History mcg (2,000 unit) capsule hydroxychloroquine 200 mg tablet 200 mg PO BIDCM arthritis 07/27/20 01/12/24 History aspirin 81 mg chewable tablet 81 mg PO DAILYCM Heart #0 tabs 06/06/23 01/22/24 Rx budesonide 160 mcg-glycopyr 9 2 inh inhalation BID breathing 07/05/23 01/12/24 Rx mcg-formot 4.8 mcg/actuation HFA #10.7 grams inhaler (Breztri Aerosphere) atorvastatin 40 mg tablet 40 mg PO QHS cholesterol #30 tabs 01/07/24 01/15/24 Rx carvedilol 6.25 mg tablet 6.25 mg PO BID blood pressure #60 01/07/24 01/22/24 Rx tabs clopidogrel 75 mg tablet (Plavix) 75 mg PO DAILY blood thinner #30 01/07/24 01/22/24 Rx tabs lisinopril 10 mg tablet 10 mg PO DAILY blood presure #30 01/07/24 01/22/24 Rx tabs omeprazole 20 mg capsule,delayed 20 mg PO BID acid reflux #120 caps 01/08/24 01/16/24 Rx release levofloxacin 750 mg tablet 750 mg PO .q48 Antibiotic #3 tabs 01/16/24 01/16/24 Rx prednisone 20 mg tablet 40 mg (2 x 20 mg) PO DAILYCM 01/16/24 01/22/24 Rx Steriod 7 days #14 tabs Allergy/AdvReac Type Severity Reaction Status Date / Time bromide salts (bromide) AdvReac Hives Verified 01/22/24 13:12 strawberry AdvReac Hives Verified 01/22/24 13:12 Family History Mother Arthritis Diabetes Hypertension Osteoporosis Father Arthritis Heart disease Sister Arthritis Breast cancer Diabetes Hypertension Son Diabetes Other Alzheimer disease Anemia Hyperlipidemia Thyroid disorder Surgical History History of coronary artery stent placement (01/07/24) History of lung biopsy History of tubal ligation History of lumpectomy Hx of cholecystectomy Social History household members: spouse Smoking Status: Former smoker alcohol intake: never substance use type: does not use ROS Constitutional Constitutional: Denies chills, fever(s) or malaise Eyes Eyes: Denies blurry vision or change in vision ENT HEENT: Reports none Cardiovascular Cardiovascular: Denies chest pain or palpitations Respiratory/Chest Respiratory/Chest: Denies cough or shortness of breath with exertion Gastrointestinal Gastrointestinal: Denies abdominal pain, constipation or diarrhea Musculoskeletal Musculoskeletal: Denies back pain, joint stiffness or joint swelling Integumentary Integumentary: Denies dry skin, jaundice, lesions or rash Neurologic Neurologic: Denies confusion, syncope or weakness Psychiatric Psychiatric: Reports none; Denies anxiety or depression Endocrine Endocrinology: Denies excessive sweating, fatigue or flushing Hematologic/Lymphatic Hematologic/Lymphatic: Denies anemia, easy bleeding or easy bruising Vital Signs Vital Signs Vital Signs: 01/22/24 13:25 01/22/24 14:42 01/23/24 06:48 Temperature 97.1 F L 97.1 F L 97 F L Temperature Source Temporal Temporal Pulse Rate 64 64 64 Respiratory Rate 16 16 16 Blood Pressure 91/51 L 91/51 L 141/46 H Blood Pressure Mean 64 77 Blood Pressure Source Monitor Monitor Blood Pressure Position Semi-Fowlers Semi-Fowlers Blood Pressure Location Right Forearm Right Arm Pulse Ox 93 93 97 Oxygen Delivery Method Nasal Cannula Nasal Cannula Nasal Cannula Oxygen Flow Rate (L/min) 4 4 3.5 Weight Weight: 83 kg Body Mass Index (BMI) 32.4 Assessment & Plan Assessment/Plan (1) Kidney stone on right side: PLAN: Stent placement on the right side for large stone that is bleeding will admit the patient for this bleeding and monitor will have the plan to treat the stone with laser lithotripsy once we get off the Plavix.
--- NOTE | 2024-01-23 08:23 | OP.PCM_ITS ---
Report of Operation Date of Procedure: 01/23/24 Pre-Operative Diagnosis: Right large stone with bleeding Post-Operative Diagnosis: The same Surgery/Procedure Performed:: Cystoscopy and right stent placement Description of Surgical Findings:: This is a 73-year-old female with multiple medical problems TCU called because she has been having some bleeding when taken to surgery today to seek the source of the bleeding but on CAT scan she has a large staghorn calculus on the right side which I think is the source of the bleeding. She is also on blood thinners Plavix and aspirin. Patient was taken back to the operating room after smooth induction of a MAC local by ANNIKA White, she was placed in dorsolithotomy position. The urethrovaginal area prepped and draped in usual sterile fashion. I went in the bladder with a 21 [place] rigid cystourethroscope once inside the bladder there was a significant amount of clots inside the bladder these were all Ellik doubt to remove the clots and then I put a wire up on the right side immediately got a lot of clots coming out from the right ureter and a lot of hemorrhage coming from the right kidney then at that point I did a retrograde pyelogram he can see a large stone in the right kidney probably the source of the bleeding I then put a stent up on that right side but a wire up coiled around the stone and the put a stent up on that right side and then when the stent was in good position then we put a Cortes catheter in the patient and plan to admit the patient for this bleeding we can have to hold her aspirin and Plavix and then we will get her set up for surgery to laser the stone in a few days once the bleeding settles down. I will consult medicine for medical management will consult hospitalist or consult pulmonology to optimize her lung status prior to the surgery. Surgeon: Justyn Lange Type of Anesthesia: MAC Drains: stent Estimated Blood Loss (mL): 0 Admit VTE Documentation VTE Present on Admission: No VTE Mechan Device Prophylaxis: SCD's VTE Pharm Prophylaxis ordered?: No
--- NOTE | 2024-01-23 08:29 | PCM.POST.ANE ---
Anesthesia: Postop Eval I Current Vital Signs Temperature: 98 F Pulse Rate: 64 Blood Pressure: 111/67 Respiratory Rate: 18 Pulse Ox: 93 Assessment Airway patent: Yes Spontaneous unlabored respirations: Yes nausea: No Vomiting: No Anesthesia Complication: No Fluid Hydration Crystalloid volume administer (ml): 40 Total IV fluid infused: 40 Progress Note Anesthesia document: Postop Eval 1 completed: Yes
--- NOTE | 2024-01-23 08:48 | POSTOPAN2_ITS ---
Anesthesia Postop Eval I Sum Postop Eval Completion status Anesthesia document: Postop Eval 1 completed: Yes Anesthesia Postop Eval I Summary Anesthesia Postop Eval I Summary: Anesthesia Postop Eval I: Assessment Summary Airway patent Yes 01/23/24 08:29 BANQUET PREP [email or web address].[email or web address] Spontaneous unlabored Yes 01/23/24 08:29 BANQUET PREP COOK.CSIR respirations Mental status nausea No 01/23/24 08:29 BANQUET PREP COOK.CSIR Vomiting No 01/23/24 08:29 BANQUET PREP COOK.CSIR Anesthesia Postop Eval I: Fluid Summary Crystalloid volume administer 40 01/23/24 08:29 BANQUET PREP COOK.CSIR (ml) Colloids volume administered ( ml) Blood Product volume administered (ml) Total IV fluid infused 40 01/23/24 08:29 BANQUET PREP COOK.CSIR Anesthesia Postop Eval I: Summary Notes Anesthesia Complication No 01/23/24 08:29 BANQUET PREP COOK.CSIR Anesthesia Complication Comment: Post-operative progress note Anesthesia: Postop Eval II Evaluation Mental status: Awake Pain Level: 0 nausea: No Vomiting: No
--- NOTE | 2024-01-23 08:48 | PCM.POSTANE2 ---
Anesthesia Postop Eval I Sum Postop Eval Completion status Anesthesia document: Postop Eval 1 completed: Yes Anesthesia Postop Eval I Summary Anesthesia Postop Eval I Summary: Anesthesia Postop Eval I: Assessment Summary Airway patent Yes 01/23/24 08:29 DOG HANDLER.CSIR Spontaneous unlabored Yes 01/23/24 08:29 DOG HANDLER.CSIR respirations Mental status nausea No 01/23/24 08:29 DOG HANDLER.CSIR Vomiting No 01/23/24 08:29 DOG HANDLER.CSIR Anesthesia Postop Eval I: Fluid Summary Crystalloid volume administer 40 01/23/24 08:29 DOG HANDLER.CSIR (ml) Colloids volume administered ( ml) Blood Product volume administered (ml) Total IV fluid infused 40 01/23/24 08:29 DOG HANDLER.CSIR Anesthesia Postop Eval I: Summary Notes Anesthesia Complication No 01/23/24 08:29 DOG HANDLER.CSIR Anesthesia Complication Comment: Post-operative progress note Anesthesia: Postop Eval II Evaluation Mental status: Awake Pain Level: 0 nausea: No Vomiting: No
[2024-01-23] MEDS: traMADol 50 MG Tablet PO (11:24)
[2024-01-23] MEDS: Carvedilol 6.25 MG Tablet PO ×2 (12:21→22:51)
[2024-01-23] MEDS: Lisinopril 10 MG Tablet PO (12:21)
[2024-01-23] MEDS: Acetaminophen 325 MG Tablet 650 MG PO ×2 (12:21→22:51)
[2024-01-23] MEDS: Ipratropium/Albuterol Sulfate 3 ML AMPUL.NEB INHALATION ×2 (12:52→19:14)
--- NOTE | 2024-01-23 15:35 | PCM.PN.HOSP ---
Reason for Visit Reason for Visit: Diagnoses Calculus of kidney (01/23/24) Subjective Subjective Patient was seen and examined today, she underwent stent placement in the right ureter due to gross hematuria from a large calculus in the right kidney. Patient's medical problems include coronary artery disease, chronic obstructive pulmonary disease, acute anemia, and chronic hypoxic respiratory failure. Objective Data Objective Data Vital Signs: Vital Signs Temp Pulse Resp BP Pulse Ox O2 Del Method O2 Flow Rate 97.8 F 65 20 H 139/47 H 99 Nasal Cannula 4 01/23/24 14:00 01/23/24 14:00 01/23/24 14:00 01/23/24 14:00 01/23/24 14:00 01/23/24 14:00 01/23/24 14:00 Oxygen Flow Rate (L/min) 4 Oxygen Delivery Method Nasal Cannula Weight: 87.543 kg Body Mass Index (BMI) 34.2 Intake & Output: Intake and Output for Last 24 Hours 01/21/24 01/22/24 01/23/24 23:59 23:59 23:59 Output Total 100 / 100 Balance -100 / -100 Physical Exam Const alert, oriented x3 and no apparent distress General Appearance: cooperative, well kempt and well developed Orientation / Consciousness: awake, oriented to person, oriented to place and oriented to time HEENT normocephalic, head/scalp atraumatic and moist oral mucous membranes Eyes PERRL, EOMs intact bilaterally and conjunctivae normal Neck supple, no JVD, thyroid normal and no carotid bruits General: trachea midline Resp normal respiratory effort, no retractions, no use of accessory muscles and clear to auscultation bilaterally Auscultation: Negative for rales, rhonchi or wheezes Cardio regular rate, regular rhythm, S1 normal heart sound, S2 normal heart sound, no murmurs, no rub and no gallops GI normal to inspection, nondistended, normoactive bowel sounds, soft to palpation, non-tender and non-distended Extremity no clubbing, cyanosis or edema Skin no rashes or lesions noted General Skin Exam: no breakdown Neuro oriented x3, CN's II-XII intact bilaterally, moves all extremities, no focal motor deficits and no sensory deficits noted Sensorium / Orientation: awake and alert Speech: speech normal Psych affect normal Assessment & Plan Assessment/Plan (1) Atherosclerosis of coronary artery of [place] heart without angina pectoris: PLAN: Plan 1. Chronic obstructive pulmonary disease-patient is on inhaled bronchodilators and inhaled corticosteroid, pulse ox will be monitored #2 coronary artery disease-patient will need at least aspirin daily, her Plavix will be held due to her gross hematuria-I discussed this issue with cardiology today (Dr. Werner), he felt that the patient could get by for the time being on 81 mg aspirin daily without Plavix. I also talked with urology about this. #3 gross hematuria secondary to large staghorn calculus right kidney-the plan is to undergo lithotripsy tomorrow #4 chronic hypoxic respiratory failure-patient is currently on 4 L of oxygen #5 hyperlipidemia-patient is on a statin #6 acute blood loss anemia-patient will have repeat CBC in the morning Total clinical time spent by myself addressing the patient's medical issues, reviewing all of her data, and collaborating with patient's care team: 35 minutes Charges/Coding Visit Charges Inpatient E&M: 76707 Subs Hosp L2
[2024-01-23 17:41] LABS: Hematocrit 24.5 % (37-47); Hemoglobin 7.9 g/dL (12.0-15.0)
[2024-01-23] MEDS: Hydroxychloroquine 200 MG Tablet PO (17:47)
[2024-01-23] MEDS: Aspirin E.C. 81 MG Tablet PO (17:48)
[2024-01-23] MEDS: Budesonide Respules 0.5 MG/2 ML AMPUL.NEB. INHALATION (19:14)
[2024-01-23] MEDS: Pantoprazole Sodium 20 MG Tablet PO (22:50)
[2024-01-23] MEDS: Atorvastatin Calcium 40 MG Tablet PO (22:51)
[2024-01-24] VITALS (15 sets, daily range): BP systolic 111–172; BP diastolic 46–98; PULSE 64–84; RESP 16–30; TEMP 36.3–36.9; O2SAT 93–99
--- NOTE | 2024-01-24 05:55 | EKG12_ITS ---
Test Reason : PRE-OP Blood Pressure : / mmHG Vent. Rate : 067 BPM Atrial Rate : 067 BPM P-R Int : 140 ms QRS Dur : 084 ms QT Int : 350 ms P-R-T Axes : 036 020 041 degrees QTc Int : 369 ms Normal sinus rhythm Nonspecific T wave abnormality Abnormal ECG When compared with ECG of 13-JAN-2024 09:22, Criteria for Septal infarct are no longer Present ST no longer elevated in Lateral leads Confirmed by Jean Carlos Hernandez ([id number]), editor department RIK SCRUGGS ([id number]) on 01/24/2024 1:44:03 PM Referred By: Justyn Lange Confirmed By:Jean Carlos Hernandez
[2024-01-24 06:33] LABS: Hematocrit 24.9 % (37-47); Hemoglobin 7.9 g/dL (12.0-15.0); Mean Corp Hgb Conc 31.7 g/dL (32-36); Mean Corpuscular Hgb 31.2 pg (27.0-32.0); Mean Corpuscular Volume 98.4 fL (81-99); Mean Platelet Vol. 9.9 fl (6.2-12.0); Platelet Count 201 K/mm3 (150-450); RBC Distribution Width CV 18.4 % (11.6-14.6); RBC Distribution Width SD 64.8 fl (35.1-43.9); Red Blood Count 2.53 M/mm3 (4.2-5.4); White Blood Count 13.6 K/mm3 (4.4-11.0)
[2024-01-24 06:53] LABS: International Normalized Ratio 1.4; Prothrombin Time (Protime)PT. 16.9 SECONDS (11.7-14.9)
[2024-01-24 06:54] LABS: Partial Thromboplast Time 31.6 Seconds (24.1-36.2)
[2024-01-24] MEDS: Budesonide Respules 0.5 MG/2 ML AMPUL.NEB. INHALATION ×2 (07:14→20:02)
[2024-01-24] MEDS: Ipratropium/Albuterol Sulfate 3 ML AMPUL.NEB INHALATION ×3 (07:14→20:02)
[2024-01-24 07:16] LABS: Anion Gap 3 (5-15); BUN 30 mg/dL (7-18); Calcium,Total 8.4 mg/dL (8.5-10.1); Chloride 108 mmol/L (98-107); Creatinine, Serum 0.86 mg/dL (0.55-1.02); EST Glomerular Filtration Rate 69 mL/min (>60); Est Glom Filt Rate - Afr Amer 84 mL/min (>60); Estimated Creatinine Clearance 61.12 ml/min; Glucose 110 mg/dL (74-106); Sodium Level 141 mmol/L (136-145)
[2024-01-24] MEDS: LORazepam 1 MG Tablet PO (09:58)
--- NOTE | 2024-01-24 10:19 | CASEMGMT ---
Social Work Pt is admitted from TCU. SARAH met with pt who confirms plan to return to TCU when medically ready. Pt frustrated with medical issues and support provided. SARAH spoke with [facility] in TCU. A new precert will be needed and insurance states they will not have this until Saturday. Physician and pt updated. Plan: TCU, pending precert. Here through the weekend. AUGUSTINE Garcia
--- NOTE | 2024-01-24 12:17 | PCM.PN.HOSP ---
Reason for Visit Reason for Visit: Diagnoses Atherosclerotic heart disease of [place] coronary artery without angina pectoris (01/23/24) Calculus of kidney (01/23/24) Subjective Subjective Patient was seen and examined today, she still has gross hematuria however her hemoglobin is not dropping appreciably. She is due to go back to surgery today for lithotripsy of her staghorn calculus. Nursing states that the patient has been anxious so I have elected to place her on Ativan as needed. Objective Data Objective Data Vital Signs: Vital Signs Temp Pulse Resp BP Pulse Ox O2 Del Method O2 Flow Rate 97.4 F L 68 18 128/48 H 98 Nasal Cannula 3 01/24/24 08:52 01/24/24 08:52 01/24/24 08:52 01/24/24 08:52 01/24/24 08:52 01/24/24 08:52 01/24/24 08:52 Oxygen Flow Rate (L/min) 3 Oxygen Delivery Method Nasal Cannula Weight: 87.543 kg Body Mass Index (BMI) 34.2 Intake & Output: Intake and Output for Last 24 Hours 01/22/24 01/23/24 01/24/24 23:59 23:59 23:59 Intake Total 300 / 300 Output Total 250 / 250 350 / 350 Balance 50 / 50 -350 / -350 Lab / Micro Data 01/24/24 06:21 01/24/24 06:21 Labs: Laboratory Results - last 24 hr 01/23/24 17:28: Hgb 7.9 L, Hct 24.5 L 01/24/24 06:21: WBC 13.6 H, RBC 2.53 L, Hgb 7.9 L, Hct 24.9 L, MCV 98.4, MCH 31.2, MCHC 31.7 L, RDW Std Deviation 64.8 H, RDW Coeff of Nasir 18.4 H, Plt Count 201, MPV 9.9, PT 16.9 H, INR 1.4, APTT 31.6, Sodium 141, Potassium 4.0, Chloride 108 H, Carbon Dioxide 30.0, Anion Gap 3 L, BUN 30 H, Creatinine 0.86, Estim Creat Clear Calc 61.12, Est GFR (MDRD) Af Amer 84, Est GFR (MDRD) Non-Af 69, BUN/Creatinine Ratio 35.0 H, Glucose 110 H, Calcium 8.4 L Physical Exam Const alert, oriented x3 and no apparent distress General Appearance: cooperative, well kempt and well developed Orientation / Consciousness: awake, oriented to person, oriented to place and oriented to time HEENT normocephalic, head/scalp atraumatic and moist oral mucous membranes Eyes PERRL, EOMs intact bilaterally and conjunctivae normal Neck supple, no JVD, thyroid normal and no carotid bruits General: trachea midline Resp normal respiratory effort, no retractions, no use of accessory muscles and clear to auscultation bilaterally Auscultation: Negative for rales, rhonchi or wheezes Cardio regular rate, regular rhythm, S1 normal heart sound, S2 normal heart sound, no murmurs, no rub and no gallops GI normal to inspection, nondistended, normoactive bowel sounds, soft to palpation, non-tender and non-distended Extremity no clubbing, cyanosis or edema Skin no rashes or lesions noted General Skin Exam: no breakdown Neuro oriented x3, CN's II-XII intact bilaterally, no focal motor deficits and no sensory deficits noted Sensorium / Orientation: awake and alert Speech: speech normal Psych affect normal Assessment & Plan Assessment/Plan (1) Kidney stone on right side: (2) Atherosclerosis of coronary artery of [place] heart without angina pectoris: PLAN: Plan 1. Chronic obstructive pulmonary disease-patient is on inhaled bronchodilators and inhaled corticosteroid, pulse ox will be monitored #2 coronary artery disease-due to recent stent placement this month, patient will need to remain on aspirin daily 81 mg #3 gross hematuria secondary to large staghorn calculus right kidney-the plan is to undergo lithotripsy today #4 chronic hypoxic respiratory failure-patient is currently on 4 L of oxygen #5 hyperlipidemia-patient is on a statin #6 acute blood loss anemia due to hematuria-patient will have repeat CBC in the morning, she does not require blood transfusion at this time #7 anxiety-again I feel the patient could tolerate a low-dose of Ativan as needed without impairing her respirations. Total clinical time spent by myself addressing the patient's medical issues, reviewing all of her data, and collaborating with patient's care team: 35 minutes Charges/Coding Visit Charges Inpatient E&M: 78153 Subs Hosp L2
--- NOTE | 2024-01-24 15:00 | PRE.ANES_ITS ---
ASA Classification* ASA Classification ASA Classification: 3 Assessment & Plan Anesthesia* Anesthesia Assessment Anesthesia Assessment: Discussed sedation and/or anesthesia options, risks, benefits, and alternatives with patient/parents/legal guardian/POA. Questions invited. The patient/parents/legal guardian/POA seems to understand and agrees to proceed with anesthesia plan. Reviewed the physical assessment, medical history, allergy history and patient home medications list prior to surgery/procedure/anesthetic and documented any changes. Performed airway and anesthesia risk assessments. Anesthesia Type Anesthesia Type: General History Source History Obtained from:: Patient and Chart Anesthesia Focused Assessment* Temperature: 97.4 F Pulse Rate: 68 Blood Pressure: 128/48 Respiratory Rate: 30 Pulse Ox: 98 Oxygen Delivery Method: Nasal Cannula Airway Assessment Mouth opens: >3 cm Mallampati Score: IV Teeth Condition: Dentures (Patient has full dentures top and bottom which are currently out.) Neck Range of motion (ROM): Limited ROM (somewhat decreased extension) Focused Labs Anesthesia Preop lab: CBC WBC 13.6 K/mm3 (4.4-11.0) H 01/24/24 06:21 RBC 2.53 M/mm3 (4.2-5.4) L 01/24/24 06:21 Hgb 7.9 g/dL (12.0-15.0) L 01/24/24 06:21 Hct 24.9 % (37-47) L 01/24/24 06:21 Plt Count 201 K/mm3 (150-450) 01/24/24 06:21 CHEMISTRY Potassium 4.0 mmol/L (3.5-5.1) 01/24/24 06:21 Sodium 141 mmol/L (136-145) 01/24/24 06:21 Magnesium 2.1 mg/dL (1.6-2.6) 05/30/23 03:02 BUN 30 mg/dL (7-18) H 01/24/24 06:21 Creatinine 0.86 mg/dL (0.55-1.02) 01/24/24 06:21 Glucose 110 mg/dL (74-106) H 01/24/24 06:21 TSH 1.390 uIU/mL (0.358-3.740) 01/06/24 13:33 COAG PT 16.9 SECONDS (11.7-14.9) H 01/24/24 06:21 Pre-Assessment Diagnosis/Proposed Procedure Planned Operative Procedure(s): Right urethroscopy with laser of stone and stent placement Anesthesia History Anesthesia History - neurology physician assistant: Anesthesia History - neurology physician assistant Hx Hospitalization Yes 01/22/24 13:25 Any Problems With Anesthesia No 01/22/24 13:25 Cholinesterase deficiency No 01/22/24 13:25 You/Your Family Experience No 01/22/24 13:25 fever (hyperthermia) with Relationship Recent Exposure to Contagious No 01/22/24 13:25 Disease Does patient have nerve No 01/22/24 13:25 stimulator Patient instructed to have device shut off --Does patient have Pacemaker No 01/23/24 06:48 or ICD? When Was Last Pacemaker Check QUESTION #4 FULL TEXT: You/Your Family Experience fever (hyperthermia) with Anesthesia Last Oral Intake Last Oral intake: Last Oral Intake NPO since 00:00 01/23/24 06:48 Meds taken in AM with sips of Yes 01/22/24 14:35 water? Meds patient instructed to take am of surgery Any additional information?: Yes Meds taken in AM with sips of water?: Yes PONV PONV - neurology physician assistant: PONV - neurology physician assistant Female Yes 01/22/24 13:25 HX of Motion Sickness No 01/22/24 13:25 HX of N/V After Surgery No 01/22/24 13:25 Non-Smoker Yes 01/22/24 13:25 Duration of Surgery greater No 01/22/24 13:25 than 60 minutes Number of Risk Factors 2 01/22/24 13:25 PONV Score Moderate Risk 01/22/24 13:25 Height & Weight Height & Weight: Anesthesia: Height & Weight Height 5 ft 3 in 01/24/24 13:00 Weight: 87.543 kg 01/24/24 13:00 Body Mass Index (BMI) 34.2 01/23/24 12:00 Respiratory Assessment Respiratory Assessment - neurology physician assistant: Respiratory Tract Infection Hx - neurology physician assistant Hx Respiratory Tract Infection Yes: Patient recently had 01/22/24 14:42 pneumonia on January 07, 2024 . STOP Sleep Apnea STOP Sleep Apnea - neurology physician assistant: STOP Sleep Apnea - neurology physician assistant Hx Hypertension Yes 01/22/24 13:25 Hx Sleep Apnea No 01/23/24 08:50 CPAP No 01/23/24 08:30 BIPAP No 01/13/24 16:35 Do you snore loudly (louder No 01/22/24 13:25 than talking or can be heard Do you often feel tired/ Yes 01/22/24 13:25 fatigued/ sleepy during daytime? Has anyone observed you stop No 01/22/24 13:25 breathing during sleep? STOP Results Positive 01/23/24 08:30 QUESTION #5 FULL TEXT : Do you snore loudly (louder than talking or can be heard through closed doors)? Tobacco Use History Tobacco Use History - neurology physician assistant: Tobacco Use History - neurology physician assistant Tobacco Use Cigarettes 12/23/23 09:25 Smoking Status Former smoker 01/23/24 14:14 Hx Tobacco Use Yes 01/23/24 12:00 Years Smoking Packs Smoked per Day Smoking Cessation Date was Yes - quit smoking within 15 01/22/24 13:25 within the last 15 years years Hx Smoking Cessation Date Hx Smoking Cessation No 01/22/24 13:25 Counseling Hematologic Medial History Hematologic Hx - neurology physician assistant: Hematologic Medical Hx - banana room cutter Hx of Blood Transfusion No 01/22/24 13:25 Hx of Transfusion in last 3 No 01/22/24 13:25 Months Date of Last Transfusion (if within last 3 months) Ever experience any problems No 01/22/24 13:25 with transfusion(s)? Specify any problems Hx of Preganancy in last 3 No 01/22/24 13:25 Months Nurse Filling Out Transfusion DPRIEST 01/22/24 13:25 & Questions: Date: 01/22/24 01/22/24 13:25 Time: 13:31 01/22/24 13:25 Patient unable to answer at this time (ie. confused, unrespo /Reproduction History /Reproductive History - neurology physician assistant: /Reproductive Hx- neurology physician assistant Hx Now No 01/22/24 13:25 Gestational Age (in weeks): EDC: Hx Hx Para Hx Section SAB No 01/22/24 13:25 Active Medications Active Medications: Current Medications Generic Name Dose Route Start Last Admin Trade Name Freq PRN Reason Stop Dose Admin Acetaminophen 650 mg 01/23/24 08:17 01/23/24 22:51 Acetaminophen 325 Mg Tablet PO 650 mg Q6H PRN PRN Administration Pain Score 1-10 Albuterol/Ipratropium 3 ml 01/23/24 12:00 01/24/24 13:01 Ipratropium/Albuterol Sulfate 3 Ml Ampul.Neb INHALATION 3 ml Q6HWA.RT KERRI Administration Aspirin 81 mg 01/24/24 08:00 01/24/24 08:55 Aspirin E.C. 81 Mg Tablet PO Not Given BREAKFAST KERRI Atorvastatin Calcium 40 mg 01/23/24 22:00 01/23/24 22:51 Atorvastatin Calcium 40 Mg Tablet PO 40 mg QHS KERRI Administration Budesonide 0.5 mg 01/23/24 12:00 01/24/24 07:14 Budesonide Respules 0.5 Mg/2 Ml Ampul.Neb. INHALATION 0.5 mg Q12H.RT KERRI Administration Carvedilol 6.25 mg 01/23/24 10:00 01/24/24 10:37 Carvedilol 6.25 Mg Tablet PO Not Given BID [facility] Protocol Cholecalciferol 50 mcg 01/23/24 10:00 01/24/24 08:56 Cholecalciferol (Vit D3) 25 Mcg Tablet (1,000 Units) PO Not Given DAILY [facility] Docusate Sodium 200 mg 01/23/24 10:00 01/24/24 08:55 Docusate Sodium 100 Mg Capsule PO Not Given BID [facility] Hydroxychloroquine Sulfate 200 mg 01/23/24 17:00 01/24/24 08:55 [facility] 200 [facility] Sodium Chloride 100 mls @ 15 mls/hr 01/23/24 12:16 IV .Q6H40M PRN Saline Flush Sodium Chloride 100 mls @ 15 mls/hr 01/23/24 12:16 IV .Q6H40M PRN Additional IVPB Infusion Sodium Chloride 100 mls @ 15 mls/hr 01/24/24 11:07 IV .Q6H40M PRN Saline Flush Sodium Chloride 100 mls @ 15 mls/hr 01/24/24 11:07 IV .Q6H40M PRN Additional IVPB Infusion Lactated Ringer's 1,000 mls @ 15 mls/hr 01/24/24 14:45 IV 01/30/24 04:04 .Q48H KERRI Protocol Levofloxacin 750 mg 01/24/24 10:00 01/24/24 10:38 Levofloxacin 750 Mg Tablet PO Not Given DAILY [facility] Lisinopril 10 mg 01/23/24 10:00 01/24/24 10:38 Lisinopril 10 Mg Tablet PO Not Given DAILY [facility] Protocol Lorazepam 0.5 mg 01/24/24 09:09 Lorazepam 2 Mg/Ml Syringe IV Q6H PRN PRN ANXIETY/AGITATION Oxybutynin Chloride 5 - 10 mg 01/23/24 22:00 01/24/24 10:38 Oxybutynin 5 Mg Tablet PO Not Given BID KERRI Pantoprazole Sodium 20 mg 01/23/24 10:00 01/24/24 08:56 Pantoprazole Sodium 20 Mg Tablet PO Not Given BID KERRI Sodium Chloride 10 - 40 ml 01/23/24 12:16 0.9% Saline Lock 10 Ml Syringe IV UD PRN SALINE FLUSH Sodium Chloride 10 - 40 ml 01/24/24 11:07 0.9% Saline Lock 10 Ml Syringe IV UD PRN SALINE FLUSH Tolterodine Tartrate 2 mg 01/23/24 08:17 Tolterodine Tartrate 2 Mg Cap.Sa PO DAILY PRN BLADDER SPASMS Tramadol HCl 50 mg 01/23/24 08:21 01/23/24 11:24 Tramadol 50 Mg Tablet PO 50 mg DAILY PRN Administration Pain Score 1-10 PFSH Medical History Non-ST elevation ND (NSTEMI) GI bleed COVID-19 Acute ND Atherosclerosis of coronary artery of [place] heart without angina pectoris Staghorn renal calculus Urinary tract infection Gross hematuria Acute dehydration Skin tag History of left breast cancer RIGHT ANKLE FRACTURE REPAIR EXCISION STOMACH TUMOR Parkinson disease Mixed connective tissue disease Polyarthropathy Lupus Hypertension COPD (chronic obstructive pulmonary disease) Asthma Arthritis Pulmonary nodules/lesions, multiple Tobacco use disorder Breast pain Osteopenia Malignant neoplasm of central portion of female breast Low bone density Home Medications ?Medication ?Instructions ?Recorded ?Last Taken ?Type tramadol 50 mg tablet 50 mg PO DAILY PRN Pain Score 1-10 03/02/14 01/12/24 History oxybutynin chloride 5 mg tablet 5 - 10 mg PO BID pain 01/25/20 01/12/24 History cholecalciferol (vitamin D3) 50 2,000 unit PO DAILY deficiency 07/27/20 01/22/24 History mcg (2,000 unit) capsule hydroxychloroquine 200 mg tablet 200 mg PO BIDCM arthritis 07/27/20 01/12/24 History aspirin 81 mg chewable tablet 81 mg PO DAILYCM Heart #0 tabs 06/06/23 01/22/24 Rx budesonide 160 mcg-glycopyr 9 2 inh inhalation BID breathing 07/05/23 01/12/24 Rx mcg-formot 4.8 mcg/actuation HFA #10.7 grams inhaler (Breztri Aerosphere) atorvastatin 40 mg tablet 40 mg PO QHS cholesterol #30 tabs 01/07/24 01/15/24 Rx carvedilol 6.25 mg tablet 6.25 mg PO BID blood pressure #60 01/07/24 01/22/24 Rx tabs clopidogrel 75 mg tablet (Plavix) 75 mg PO DAILY blood thinner #30 01/07/24 01/22/24 Rx tabs lisinopril 10 mg tablet 10 mg PO DAILY blood presure #30 01/07/24 01/22/24 Rx tabs omeprazole 20 mg capsule,delayed 20 mg PO BID acid reflux #120 caps 01/08/24 01/16/24 Rx release levofloxacin 750 mg tablet 750 mg PO .q48 Antibiotic #3 tabs 01/16/24 01/16/24 Rx prednisone 20 mg tablet 40 mg (2 x 20 mg) PO DAILYCM 01/16/24 01/22/24 Rx Steriod 7 days #14 tabs Allergy/AdvReac Type Severity Reaction Status Date / Time bromide salts (bromide) AdvReac Hives Verified 01/22/24 13:12 strawberry AdvReac Hives Verified 01/22/24 13:12 Family History Mother Arthritis Diabetes Hypertension Osteoporosis Father Arthritis Heart disease Sister Arthritis Breast cancer Diabetes Hypertension Son Diabetes Other Alzheimer disease Anemia Hyperlipidemia Thyroid disorder Surgical History History of coronary artery stent placement (01/07/24) History of lung biopsy History of tubal ligation History of lumpectomy Hx of cholecystectomy Social History household members: spouse Smoking Status: Former smoker alcohol intake: never substance use type: does not use Review of Systems (Anesthesia) ROS Narrative System reviewed and no additional complaints, except as documented.
[2024-01-24] MEDS: Cefazolin 2 GM in 0.9% Normal Saline (100mL Bag) 100 ML IV (16:48)
--- NOTE | 2024-01-24 18:12 | PCM.OPRPT ---
Report of Operation Date of Procedure: 01/24/24 Pre-Operative Diagnosis: Right large obstructing stone causing bleeding Post-Operative Diagnosis: The same Surgery/Procedure Performed:: Cystoscopy right retrograde pyelogram right ureteroscopy laser lithotripsy of stone, and right stent placement Description of Surgical Findings:: Indication this is a 73-year-old female with a come in with significant bleeding from a stone in the right kidney placed a stent yesterday which the bleeding is slowed down. I discussed with the patient about possibly trying to laser the stone today she wishes to proceed to get it over with and after discussing with the family decided to go ahead with with laser lithotripsy of the stone today, there was some thoughts about maybe delaying the surgery low bit longer to see if she can get some of her strength back etc. but she wishes to proceed today. Patient is taken back to the operating room at this with induction of anesthesia she was placed in dorsolithotomy position. I grabbed the existing stent put a wire up to the stent but a dual-lumen catheter and put as a safety wire and then also placed a access sheath up to the ureter access sheath went almost up almost all the way up to the kidney but not quite into the pelvis and then I went in with the flexible ureteroscope was immediately bloody already very difficult to see but I could see the stone and started lasering the stone little tiny pieces using a 365 ?m laser fiber using the thulium laser settings were 0.4 J and 100 Hz as well as lasering this I got probably about half the stone done then it got more more bloody so I tried to see if I could put the access sheath into the renal pelvis to increase irrigation but was not successful the access sheath would not go past the UPJ area so then I went back in we tried manual pumping to see if this will increase visibility but the but it was still too bloody and was not safe to proceed any longer so ended up putting retrograde pyelogram there was no extravasation contrast was contrast up in the kidney but a wire up into the kidney and then over the wire placed a new stent once the stent was in good position coiled in the kidney and bladder good position. For now we will leave the stent in and will let the patient fully recover I will see her in the office after she is discharged from transitional care unit and we will get her set up for second stage lasering of the stone down the road once her strength is much better and also she had a recent cardiac event with a heart stent up I went get left things cool off for little bit before we prior to surgery again. So she was taken back to the PACU in good condition should be kept in the hospital for observation we will discharge her back to transitional care unit once she is stable. Surgeon: Justyn Lange Type of Anesthesia: General Drains: stent Admit VTE Documentation VTE Present on Admission: No VTE Mechan Device Prophylaxis: SCD's VTE Pharm Prophylaxis ordered?: No
--- NOTE | 2024-01-24 18:18 | PCM.POST.ANE ---
Anesthesia: Postop Eval I Current Vital Signs Temperature: 97.5 F Pulse Rate: 74 Blood Pressure: 152/83 Respiratory Rate: 16 Pulse Ox: 93 (poor wave form) Assessment Airway patent: Yes Spontaneous unlabored respirations: Yes nausea: No Vomiting: No Anesthesia Complication: No Fluid Hydration Crystalloid volume administer (ml): 500 Total IV fluid infused: 500 Progress Note Anesthesia document: Postop Eval 1 completed: Yes
--- NOTE | 2024-01-24 18:21 | PCM.POSTANE2 ---
Anesthesia Postop Eval I Sum Postop Eval Completion status Anesthesia document: Postop Eval 1 completed: Yes Anesthesia Postop Eval I Summary Anesthesia Postop Eval I Summary: Anesthesia Postop Eval I: Assessment Summary Airway patent Yes 01/24/24 18:18 Spontaneous unlabored Yes 01/24/24 18:18 respirations Mental status Awake 01/23/24 08:48 nausea No 01/24/24 18:18 Vomiting No 01/24/24 18:18 Anesthesia Postop Eval I: Fluid Summary Crystalloid volume administer 500 01/24/24 18:18 (ml) Colloids volume administered ( ml) Blood Product volume administered (ml) Total IV fluid infused 500 01/24/24 18:18 Anesthesia Postop Eval I: Summary Notes Anesthesia Complication No 01/24/24 18:18 Anesthesia Complication Comment: Post-operative progress note Anesthesia: Postop Eval II Evaluation Mental status: Asleep Pain Level: 0 nausea: No Vomiting: No
[2024-01-24] MEDS: Acetaminophen 325 MG Tablet 650 MG PO (20:02)
[2024-01-24] MEDS: traMADol 50 MG Tablet PO (20:02)
[2024-01-24] MEDS: Docusate Sodium 100 MG Capsule 200 MG PO (20:03)
[2024-01-24] MEDS: Carvedilol 6.25 MG Tablet PO (20:03)
[2024-01-24] MEDS: Pantoprazole Sodium 20 MG Tablet PO (20:05)
[2024-01-24] MEDS: Atorvastatin Calcium 40 MG Tablet PO (20:05)
[2024-01-24] MEDS: Oxybutynin 5 MG Tablet PO (20:09)
[2024-01-24] MEDS: 0.9% Saline Lock 10 ML Syringe IV (20:34)
[2024-01-24] MEDS: LORazepam 2 MG/ML Syringe 0.5 MG IV (20:34)
[2024-01-25] VITALS (12 sets, daily range): BP systolic 102–140; BP diastolic 42–62; PULSE 64–86; RESP 16–24; TEMP 36.6–37.6; O2SAT 93–99
[2024-01-25] MEDS: Acetaminophen 325 MG Tablet 650 MG PO ×2 (04:02→21:47)
[2024-01-25] MEDS: Ipratropium/Albuterol Sulfate 3 ML AMPUL.NEB INHALATION ×4 (04:44→17:34)
[2024-01-25 05:43] LABS: Hematocrit 23.8 % (37-47); Hemoglobin 7.8 g/dL (12.0-15.0); Mean Corp Hgb Conc 32.8 g/dL (32-36); Mean Corpuscular Hgb 31.2 pg (27.0-32.0); Mean Corpuscular Volume 95.2 fL (81-99); Mean Platelet Vol. 10.2 fl (6.2-12.0); Platelet Count 162 K/mm3 (150-450); RBC Distribution Width CV 18.3 % (11.6-14.6); RBC Distribution Width SD 62.1 fl (35.1-43.9); White Blood Count 21.6 K/mm3 (4.4-11.0)
[2024-01-25] MEDS: Budesonide Respules 0.5 MG/2 ML AMPUL.NEB. INHALATION ×2 (07:06→19:37)
--- NOTE | 2024-01-25 09:14 | PCM.PN.GU ---
Subjective Subjective Status post laser of a large stone in the right kidney unfortunately was not able to completely laser the stone to the fact that she was on blood thinners from a recent heart stent and it just became too bloody to proceed safely so I did bandage her to the procedure left a stent in things cool off for a few weeks of bring her back as an outpatient to finish lasering the stone later on once it is safe her to stop her blood thinners a little longer. Objective Data Objective Data Vital Signs: Vital Signs Temp Pulse Resp BP Pulse Ox O2 Del Method O2 Flow Rate 98.3 F 69 16 137/50 H 94 Nasal Cannula 3 01/25/24 06:20 01/25/24 07:07 01/25/24 07:07 01/25/24 06:20 01/25/24 07:07 01/25/24 07:07 01/25/24 07:07 Oxygen Flow Rate (L/min) 3 Oxygen Delivery Method Nasal Cannula Weight: 87.543 kg Body Mass Index (BMI) 34.2 Intake & Output: Intake and Output for Last 24 Hours 01/23/24 01/24/24 01/25/24 23:59 23:59 23:59 Intake Total 300 / 300 140 / 140 400 / 400 Output Total 250 / 250 350 / 650 450 / 450 Balance 50 / 50 -210 / -510 -50 / -50 Lab / Micro Data 01/25/24 05:30 01/24/24 06:21 Labs: Laboratory Results - last 24 hr 01/25/24 05:30: WBC 21.6 H, RBC 2.50 L, Hgb 7.8 L, Hct 23.8 L, MCV 95.2, MCH 31.2, MCHC 32.8, RDW Std Deviation 62.1 H, RDW Coeff of Nasir 18.3 H, Plt Count 162, MPV 10.2
--- NOTE | 2024-01-25 09:15 | PCM.TXEXTCAR ---
Diet Diet Order/Speech Therapy: 01/24/24 18:12 Diet: Regular - General Type of Dietary Supplement:: Ensure Clear Routine Orders/Code Status Code Status: Full Code Therapies Weight Bearing: Full weight bearing Problem/Diagnosis (1) Kidney stone on right side: Status: Acute Code(s): N20.0 - Calculus of kidney Plan: Stent placement on the right side for large stone that is bleeding will admit the patient for this bleeding and monitor will have the plan to treat the stone with laser lithotripsy once we get off the Plavix. (2) Atherosclerosis of coronary artery of [place] heart without angina pectoris: Status: Acute Code(s): I25.10 - Atherosclerotic heart disease of [place] coronary artery without angina pectoris Allergies/Procedures Done in Hospital Allergies bromide salts (bromide) Adverse Reaction (Verified 01/22/24 13:12) Hives strawberry Adverse Reaction (Verified 01/22/24 13:12) Hives frozen strawberries Type of Care/Length of Stay Estimated LOS: Convalescent Care Less Than 30 days Type of Care Needed: Skilled Rehab Potential: Fair Prognosis: Fair Additional Orders/Day of Discharge Day of Discharge: 01/27/24 Dietary and Speech Recommendations Dietitian Recommendations/Changes: As medically able, rec W[place]ATT to liberal Regular Rec order 8 oz apple ensure clear tid w/ meals when diet resumes Follow Up Care Please Follow Up With: Justyn Lange MD When: will call to set up surgery Discharge Plan Admission Admit Date/Time: 01/23/24 08:17 Primary Reason for Your Visit: right kidney stone Attending Provider: Justyn Lange Primary Care Provider: Haritha Alonso Consulting Providers: Jermaine Jaramillo Discharge Orders/Prescriptions Prescriptions: New ciprofloxacin HCl [Cipro] 500 mg tablet 500 mg PO BID Qty: 14 0RF Continued Breztri Aerosphere 160-9-4.8 mcg/actuation HFA aerosol inhaler 2 inh inhalation BID Qty: 10.7 6RF tramadol 50 MG tablet 50 mg PO DAILY PRN (Reason: Pain Score 1-10) oxybutynin chloride 5 MG tablet 5 - 10 mg PO BID hydroxychloroquine 200 MG tablet 200 mg PO BIDCM cholecalciferol (vitamin D3) 2,000 UNIT capsule 2,000 unit PO DAILY aspirin 81 mg Tablet,Chewable 81 mg PO DAILYCM Qty: 0 0RF atorvastatin 40 mg Tablet 40 mg PO QHS Qty: 30 0RF carvedilol 6.25 mg Tablet 6.25 mg PO BID Qty: 60 0RF lisinopril 10 mg Tablet 10 mg PO DAILY Qty: 30 0RF omeprazole 20 mg capsule,delayed release(DR/EC) 20 mg PO BID Qty: 120 0RF prednisone 20 mg Tablet 40 mg PO DAILYCM 7 Days Qty: 14 0RF levofloxacin 750 mg tablet 750 mg PO .q48 Qty: 3 0RF Discontinued clopidogrel [Plavix] 75 mg tablet 75 mg PO DAILY Qty: 30 0RF Rx Instructions: start on 01/07/24 Referrals / Follow Up: Justyn Lange MD [Med Staff - Active Staff] - Haritha Alonso NP-C [Primary Care Provider] - Disposition Disposition (needs filled in before D/C Order can be placed): Intermediate Facility
[2024-01-25] MEDS: Hydroxychloroquine 200 MG Tablet PO ×2 (10:09→17:11)
[2024-01-25] MEDS: levoFLOXacin 750 MG Tablet PO (10:09)
[2024-01-25] MEDS: Pantoprazole Sodium 20 MG Tablet PO ×2 (10:09→21:48)
[2024-01-25] MEDS: Aspirin E.C. 81 MG Tablet PO (10:09)
[2024-01-25] MEDS: Cholecalciferol (VIT D3) 25 MCG TABLET (1,000 UNITS) 50 MCG PO (10:10)
[2024-01-25] MEDS: Lisinopril 10 MG Tablet PO (10:10)
[2024-01-25] MEDS: Oxybutynin 5 MG Tablet PO ×2 (10:11→21:48)
[2024-01-25] MEDS: Carvedilol 6.25 MG Tablet PO ×2 (10:11→21:47)
--- NOTE | 2024-01-25 13:35 | PCM.PN.HOSP ---
Reason for Visit Reason for Visit: Diagnoses Atherosclerotic heart disease of [place] coronary artery without angina pectoris (01/23/24) Calculus of kidney (01/23/24) Subjective Subjective Patient was seen and examined today, I talked briefly with urology about her care. Patient will be approved to go back to TCU on Saturday, urology feels that they need to wait to do a second lithotripsy on the patient and would not do it during this admission. Objective Data Objective Data Vital Signs: Vital Signs Temp Pulse Resp BP Pulse Ox O2 Del Method O2 Flow Rate 97.9 F 70 16 106/42 L 99 Room Air 3 01/25/24 09:58 01/25/24 12:32 01/25/24 12:32 01/25/24 09:58 01/25/24 12:13 01/25/24 09:58 01/25/24 12:14 Oxygen Flow Rate (L/min) 3 Oxygen Delivery Method Room Air Weight: 87.543 kg Body Mass Index (BMI) 34.2 Intake & Output: Intake and Output for Last 24 Hours 01/23/24 01/24/24 01/25/24 23:59 23:59 23:59 Intake Total 300 / 300 140 / 140 800 / 800 Output Total 250 / 250 350 / 650 450 / 450 Balance 50 / 50 -210 / -510 350 / 350 Lab / Micro Data 01/25/24 05:30 01/24/24 06:21 Labs: Laboratory Results - last 24 hr 01/25/24 05:30: WBC 21.6 H, RBC 2.50 L, Hgb 7.8 L, Hct 23.8 L, MCV 95.2, MCH 31.2, MCHC 32.8, RDW Std Deviation 62.1 H, RDW Coeff of Nasir 18.3 H, Plt Count 162, MPV 10.2 Physical Exam Narrative alert, oriented x3 and no apparent distress General Appearance: cooperative, well kempt and well developed Orientation / Consciousness: awake, oriented to person, oriented to place and oriented to time HEENT normocephalic, head/scalp atraumatic and moist oral mucous membranes Eyes PERRL, EOMs intact bilaterally and conjunctivae normal Neck supple, no JVD, thyroid normal and no carotid bruits General: trachea midline Resp normal respiratory effort, no retractions, no use of accessory muscles and clear to auscultation bilaterally Auscultation: Negative for rales, rhonchi or wheezes Cardio regular rate, regular rhythm, S1 normal heart sound, S2 normal heart sound, no murmurs, no rub and no gallops GI normal to inspection, nondistended, normoactive bowel sounds, soft to palpation, non-tender and non-distended Extremity no clubbing, cyanosis or edema Skin no rashes or lesions noted General Skin Exam: no breakdown Neuro oriented x3, CN's II-XII intact bilaterally, no focal motor deficits and no sensory deficits noted Sensorium / Orientation: awake and alert Speech: speech normal Psych affect normal Assessment & Plan Assessment/Plan (1) Kidney stone on right side: (2) Atherosclerosis of coronary artery of [place] heart without angina pectoris: PLAN: Plan 1. Chronic obstructive pulmonary disease-patient is on inhaled bronchodilators and inhaled corticosteroid, pulse ox will be monitored #2 coronary artery disease-due to recent stent placement this month, patient will need to remain on aspirin daily 81 mg #3 gross hematuria secondary to large staghorn calculus right kidney-status post partial lithotripsy #4 chronic hypoxic respiratory failure-patient is currently on 4 L of oxygen #5 hyperlipidemia-patient is on a statin #6 acute blood loss anemia due to hematuria-patient will have repeat CBC in the morning, she does not require blood transfusion at this time #7 anxiety-patient is on low-dose Ativan currently Total clinical time spent by myself addressing the patient's medical issues, reviewing all of her data, and collaborating with patient's care team: 35 minutes Charges/Coding Visit Charges Inpatient E&M: 28056 Subs Hosp L2
[2024-01-25] MEDS: LORazepam 2 MG/ML Syringe 0.5 MG IV (21:47)
[2024-01-25] MEDS: Atorvastatin Calcium 40 MG Tablet PO (21:48)
[2024-01-25] MEDS: 0.9% Saline Lock 10 ML Syringe IV (21:51)
[2024-01-26] VITALS (20 sets, daily range): BP systolic 90–164; BP diastolic 38–85; PULSE 66–91; RESP 16–24; TEMP 36.1–37.3; O2SAT 18–100
[2024-01-26] MEDS: Ipratropium/Albuterol Sulfate 3 ML AMPUL.NEB INHALATION ×4 (01:36→16:51)
[2024-01-26] MEDS: traMADol 50 MG Tablet PO (02:43)
[2024-01-26] MEDS: LORazepam 2 MG/ML Syringe 0.5 MG IV ×2 (03:49→12:59)
[2024-01-26] MEDS: Budesonide Respules 0.5 MG/2 ML AMPUL.NEB. INHALATION ×2 (07:13→19:07)
[2024-01-26 07:22] LABS: Absolute Lymphocyte Count 1.56 X10^3/uL (0.83-4.51); Absolute Neutrophil Count 12.8 X10^3/uL (2.0-7.7); Basophil# 0.03 X10^3/uL; Basophil% 0.2 % (0-1); Eosinophil# 0.24 X10^3/uL; Eosinophils% 1.5 % (0-5); Hematocrit 21.7 % (37-47); Hemoglobin 6.7 g/dL (12.0-15.0); Lymphocyte # 1.56 X10^3/ul (0.83-4.51); Mean Corp Hgb Conc 30.9 g/dL (32-36); Mean Corpuscular Volume 100.5 fL (81-99); Mean Platelet Vol. 10.1 fl (6.2-12.0); Monocyte# 0.92 X10^3/uL; Monocyte% 5.9 % (0-10); NRBC Flagged by Analyzer 0 % (0-5); Neutrophil # 12.83 X10^3/uL (2.7-7.7); POSITIVE MORPHOLOGY YES; Platelet Count 178 K/mm3 (150-450); RBC Distribution Width CV 18.2 % (11.6-14.6); RBC Distribution Width SD 67.1 fl (35.1-43.9); Red Blood Count 2.16 M/mm3 (4.2-5.4); White Blood Count 15.7 K/mm3 (4.4-11.0)
[2024-01-26 07:44] LABS: Anion Gap 6 (5-15); BUN 29 mg/dL (7-18); BUN/Creat Ratio 33.1 RATIO (10-20); Calcium,Total 8.3 mg/dL (8.5-10.1); Chloride 105 mmol/L (98-107); Creatinine, Serum 0.88 mg/dL (0.55-1.02); EST Glomerular Filtration Rate 67 mL/min (>60); Est Glom Filt Rate - Afr Amer 81 mL/min (>60); Estimated Creatinine Clearance 59.73 ml/min; Glucose 131 mg/dL (74-106); Potassium 3.3 mmol/L (3.5-5.1); Sodium Level 140 mmol/L (136-145)
[2024-01-26 08:16] LABS: Differential Indicated SCAN CRITERIA MET
[2024-01-26 09:22] LABS: Anisocytosis 2+; Differential Comment SCANNED; Macrocytosis 1+; Microcytosis 1+
[2024-01-26] MEDS: Lisinopril 10 MG Tablet PO (09:51)
[2024-01-26] MEDS: Cholecalciferol (VIT D3) 25 MCG TABLET (1,000 UNITS) 50 MCG PO (09:51)
[2024-01-26] MEDS: Oxybutynin 5 MG Tablet PO ×2 (09:51→21:19)
[2024-01-26] MEDS: Pantoprazole Sodium 20 MG Tablet PO ×2 (09:51→21:20)
[2024-01-26] MEDS: Carvedilol 6.25 MG Tablet PO ×2 (09:51→21:19)
[2024-01-26] MEDS: levoFLOXacin 750 MG Tablet PO (09:52)
[2024-01-26] MEDS: Hydroxychloroquine 200 MG Tablet PO (09:52)
[2024-01-26] MEDS: Aspirin E.C. 81 MG Tablet PO (09:52)
[2024-01-26] MEDS: Potassium Chloride Oral Tablet 20 MEQ 40 MEQ PO (09:54)
--- NOTE | 2024-01-26 12:45 | PCM.PN.HOSP ---
Reason for Visit Reason for Visit: Diagnoses Atherosclerotic heart disease of [place] coronary artery without angina pectoris (01/23/24) Calculus of kidney (01/23/24) Subjective Subjective Patient was seen and examined today, her hemoglobin was 6.7 today and I elected to transfuse 2 units of packed red blood cells. I talked briefly with urology today, they feel it is safe for the patient to go back to TCU tomorrow, they feel that due to the partial lithotripsy that was performed the patient will have minimal blood in her urine. Objective Data Objective Data Vital Signs: Vital Signs Temp Pulse Resp BP Pulse Ox O2 Del Method O2 Flow Rate 97.8 F 73 18 112/60 92 Nasal Cannula 3 01/26/24 08:45 01/26/24 08:45 01/26/24 08:45 01/26/24 08:45 01/26/24 11:20 01/26/24 09:46 01/26/24 11:20 Oxygen Flow Rate (L/min) 3 Oxygen Delivery Method Nasal Cannula Weight: 87.543 kg Body Mass Index (BMI) 34.2 Intake & Output: Intake and Output for Last 24 Hours 01/24/24 01/25/24 01/26/24 23:59 23:59 23:59 Intake Total 140 / 140 1200 / 1200 Output Total 350 / 650 450 / 450 Balance -210 / -510 750 / 750 Lab / Micro Data 01/26/24 06:25 01/26/24 06:25 Labs: Laboratory Results - last 24 hr 01/26/24 06:25: WBC 15.7 H, RBC 2.16 L, Hgb 6.7 L, Hct 21.7 L, MCV 100.5 H D, MCH 31.0, MCHC 30.9 L D, RDW Std Deviation 67.1 H, RDW Coeff of Nasir 18.2 H, Plt Count 178, MPV 10.1, Immature Gran % (Auto) 0.400, Neut % (Auto) 82.0 H, Lymph % (Auto) 10.0 L, [place] % (Auto) 5.9, Eos % (Auto) 1.5, Baso % (Auto) 0.2, Absolute Neuts (auto) 12.8 H, Absolute Lymphs (auto) 1.56, Nucleated RBC % 0, Differential Comment SCANNED, Anisocytosis 2+, Microcytosis 1+, Macrocytosis 1+, Sodium 140, Potassium 3.3 L, Chloride 105, Carbon Dioxide 29.0, Anion Gap 6, BUN 29 H, Creatinine 0.88, Estim Creat Clear Calc 59.73, Est GFR (MDRD) Af Amer 81, Est GFR (MDRD) Non-Af 67, BUN/Creatinine Ratio 33.1 H, Glucose 131 H, Calcium 8.3 L 01/26/24 09:20: Blood Type B POSITIVE, Antibody Screen NEGATIVE, Crossmatch See Detail Physical Exam Narrative alert, oriented x3 and no apparent distress General Appearance: cooperative, well kempt and well developed Orientation / Consciousness: awake, oriented to person, oriented to place and oriented to time HEENT normocephalic, head/scalp atraumatic and moist oral mucous membranes Eyes PERRL, EOMs intact bilaterally and conjunctivae normal Neck supple, no JVD, thyroid normal and no carotid bruits General: trachea midline Resp normal respiratory effort, no retractions, no use of accessory muscles and clear to auscultation bilaterally Auscultation: Negative for rales, rhonchi or wheezes Cardio regular rate, regular rhythm, S1 normal heart sound, S2 normal heart sound, no murmurs, no rub and no gallops GI normal to inspection, nondistended, normoactive bowel sounds, soft to palpation, non-tender and non-distended Extremity no clubbing, cyanosis or edema Skin no rashes or lesions noted General Skin Exam: no breakdown Neuro oriented x3, CN's II-XII intact bilaterally, no focal motor deficits and no sensory deficits noted Sensorium / Orientation: awake and alert Speech: speech normal Psych affect normal Assessment & Plan Assessment/Plan (1) Kidney stone on right side: (2) Atherosclerosis of coronary artery of [place] heart without angina pectoris: PLAN: Plan 1. Chronic obstructive pulmonary disease-patient is on inhaled bronchodilators and inhaled corticosteroid, pulse ox will be monitored #2 coronary artery disease-due to recent stent placement this month, patient will need to remain on aspirin daily 81 mg #3 gross hematuria secondary to large staghorn calculus right kidney-status post partial lithotripsy #4 chronic hypoxic respiratory failure-patient is currently on 3 L of oxygen #5 hyperlipidemia-patient is on a statin #6 acute blood loss anemia due to hematuria-patient will be transfused 2 units of packed red blood cells, CBC will be repeated tomorrow #7 anxiety-patient is on low-dose Ativan currently Total clinical time spent by myself addressing the patient's medical issues, reviewing all of her data, and collaborating with patient's care team: 35 minutes Charges/Coding Visit Charges Inpatient E&M: 32832 Subs Hosp L2
[2024-01-26] MEDS: 0.9% Saline Lock 10 ML Syringe IV (12:59)
--- NOTE | 2024-01-26 16:54 | CPS ---
nurse called for PRN and i asked for order please pt is tachypnea and struggling to catch breathe also anxiety isnt helping and she cant have ativan for 2 more hours.
[2024-01-26] MEDS: Albuterol 2.5 MG/3 ML VIAL.NEB. INHALATION ×2 (19:06→22:14)
[2024-01-26] MEDS: Acetaminophen 325 MG Tablet 650 MG PO (21:18)
[2024-01-26] MEDS: Atorvastatin Calcium 40 MG Tablet PO (21:20)
[2024-01-27] VITALS (35 sets, daily range): BP systolic 75–159; BP diastolic 34–74; PULSE 61–88; RESP 12–30; TEMP 36.2–36.6; O2SAT 66–100
[2024-01-27] MEDS: LORazepam 2 MG/ML Syringe 0.5 MG IV (00:59)
[2024-01-27] MEDS: 0.9% Saline Lock 10 ML Syringe IV ×2 (01:00→07:03)
[2024-01-27] MEDS: traMADol 50 MG Tablet PO (01:00)
[2024-01-27] MEDS: Acetaminophen 325 MG Tablet 650 MG PO (06:42)
--- NOTE | 2024-01-27 06:57 | CPS ---
Called to room by RN for aerosol, stating patient was crackly and SOB. [id number]-entered room and found patient unresponsive, sats on 3lpm nasal cannula at 43% on monitor. O2 flow increased, RN made aware. Patient placed on BiPAP with AVAPS settings, unsure of hospitalist seeing patient as it was shift change. FiO2 at 100%, initially, and weaned down to 65%. ABG drawn and critical values handed to Dr. Connell.
[2024-01-27] MEDS: Furosemide 40 MG/4 ML Vial IV ×2 (07:03→15:38)
--- NOTE | 2024-01-27 07:10 | RAD_ITS ---
INDICATION: Shortness of breath, crackles EXAMINATION/TECHNIQUE: X-RAY - XR Chest 1 View COMPARISON: January 13, 2024 FINDINGS: LINES/DEVICES: None. LUNGS: There is a new left basilar hazy opacity. There are ill-defined opacities within the lower lungs. There is stable left apical scarring. No pneumothorax. MEDIASTINUM AND CARDIOVASCULAR STRUCTURES: There is stable cardiomegaly. Central airways and mediastinal contour are unremarkable. BONES AND SOFT TISSUES: Unremarkable. RAD/Chest 1 View (Portable) IMPRESSION: New left pleural effusion associated with bibasilar ill-defined opacities may reflect atelectasis and/or pneumonia. Stable cardiomegaly. Electronically Signed: Karen Weems MD at 8:32 EDT ,
--- NOTE | 2024-01-27 07:16 | NURSING ---
CPS here pt on bipap, breathing treatment done, xray here for stat chest view, lab here for stat labs, ekg being done. pt less responsive, other rn contacting dr to come see pt.
[2024-01-27] MEDS: Ipratropium/Albuterol Sulfate 3 ML AMPUL.NEB INHALATION ×3 (07:22→19:26)
[2024-01-27] MEDS: Budesonide Respules 0.5 MG/2 ML AMPUL.NEB. INHALATION ×2 (07:22→19:26)
[2024-01-27 07:29] LABS: Absolute Lymphocyte Count 1.81 X10^3/uL (0.83-4.51); Absolute Neutrophil Count 15.8 X10^3/uL (2.0-7.7); Basophil# 0.07 X10^3/uL; Basophil% 0.4 % (0-1); Eosinophil# 0.23 X10^3/uL; Eosinophils% 1.2 % (0-5); Hematocrit 30.7 % (37-47); Hemoglobin 9.9 g/dL (12.0-15.0); Lymphocyte # 1.81 X10^3/ul (0.83-4.51); Lymphocyte % 9.4 % (19-41); Mean Corp Hgb Conc 32.2 g/dL (32-36); Mean Corpuscular Hgb 31.5 pg (27.0-32.0); Mean Corpuscular Volume 97.8 fL (81-99); Mean Platelet Vol. 9.9 fl (6.2-12.0); Monocyte# 1.23 X10^3/uL; Monocyte% 6.4 % (0-10); NRBC Flagged by Analyzer 0 % (0-5); Neutrophil # 15.81 X10^3/uL (2.7-7.7); Neutrophil % 81.9 % (47-70); Platelet Count 171 K/mm3 (150-450); RBC Distribution Width CV 17.4 % (11.6-14.6); RBC Distribution Width SD 59.7 fl (35.1-43.9); Red Blood Count 3.14 M/mm3 (4.2-5.4); White Blood Count 19.3 K/mm3 (4.4-11.0)
--- NOTE | 2024-01-27 07:37 | PN.URO_ITS ---
Subjective Subjective 73-year-old female who on Saturday we decided to take her to surgery to laser a large staghorn calculus is causing bleeding from her right kidney she was on Plavix and aspirin for recent heart stent at that point the bleeding was lightening up I did asked the patient if I recommended we wait on the surgery but she was insistent on proceeding so we proceeded with surgery on Saturday with laser lithotripsy I was a very difficult case with and got bloody quickly so therefore I could not laser the entire stone put a stent in. Over the last 2 days she has been fairly doing fairly well in the floor and recovering yesterday the hospitalist said her hemoglobin was slightly low at 6.7 so she was given 2 units of blood but with stable yesterday. This morning I came to see the patient and she was on a CPAP machine response was poor barely opening her eyes nurses report that she called for of's treatment at 7 AM and then was found to have unresponsive and low oxygenation levels. She is right now on CPAP machine should be transferred to the ICU the hospitalist rapid response was called and she has been assessed working order chest x-ray troponin BMP blood work again at the nurses placed a [place] catheter for assess urine output. I called the family left a message with the person to notify which is her daughter to ask her to call me. Objective Data Objective Data Vital Signs: Vital Signs Temp Pulse Resp BP Pulse Ox O2 Del Method O2 Flow Rate 97.1 F L 70 18 130/59 H 100 Bi-pap 3 01/27/24 01:19 01/27/24 01:19 01/27/24 01:19 01/27/24 01:19 01/27/24 07:11 01/27/24 07:11 01/27/24 07:10 Oxygen Flow Rate (L/min) 3 Oxygen Delivery Method Bi-pap Weight: 87.543 kg Body Mass Index (BMI) 34.2 Intake & Output: Intake and Output for Last 24 Hours 01/25/24 01/26/24 01/27/24 23:59 23:59 23:59 Intake Total 1200 / 1200 1300 / 1300 Output Total 450 / 450 200 / 200 200 / 200 Balance 750 / 750 1100 / 1100 -200 / -200 Lab / Micro Data 01/27/24 07:15 01/26/24 06:25 Labs: Laboratory Results - last 24 hr 01/26/24 06:25: WBC 15.7 H, RBC 2.16 L, Hgb 6.7 L, Hct 21.7 L, MCV 100.5 H D, MCH 31.0, MCHC 30.9 L D, RDW Std Deviation 67.1 H, RDW Coeff of Nasir 18.2 H, Plt Count 178, MPV 10.1, Immature Gran % (Auto) 0.400, Neut % (Auto) 82.0 H, Lymph % (Auto) 10.0 L, [place] % (Auto) 5.9, Eos % (Auto) 1.5, Baso % (Auto) 0.2, Absolute Neuts (auto) 12.8 H, Absolute Lymphs (auto) 1.56, Nucleated RBC % 0, Differential Comment SCANNED, Anisocytosis 2+, Microcytosis 1+, Macrocytosis 1+, Sodium 140, Potassium 3.3 L, Chloride 105, Carbon Dioxide 29.0, Anion Gap 6, BUN 29 H, Creatinine 0.88, Estim Creat Clear Calc 59.73, Est GFR (MDRD) Af Amer 81, Est GFR (MDRD) Non-Af 67, BUN/Creatinine Ratio 33.1 H, Glucose 131 H, Calcium 8.3 L 01/26/24 09:20: Blood Type B POSITIVE, Antibody Screen NEGATIVE, Crossmatch See Detail 01/27/24 07:15: WBC 19.3 H, RBC 3.14 L, Hgb 9.9 L, Hct 30.7 L, MCV 97.8, MCH 31.5, MCHC 32.2, RDW Std Deviation 59.7 H, RDW Coeff of Nasir 17.4 H, Plt Count 171, MPV 9.9, Immature Gran % (Auto) 0.700, Neut % (Auto) 81.9 H, Lymph % (Auto) 9.4 L, [place] % (Auto) 6.4, Eos % (Auto) 1.2, Baso % (Auto) 0.4, Absolute Neuts (auto) 15.8 H, Absolute Lymphs (auto) 1.81, Nucleated RBC % 0
--- NOTE | 2024-01-27 07:37 | ECHOL_ITS ---
Reason For Study: ARRHYTHMIA Procedure This was a 2D Doppler, Color Flow transthoracic echocardiogram. Patient was scanned in supine position during reflux assessment. Patient was on BiPap. Exam performed portable in ICU/CCU. Left Ventricle Normal LV size. Mild concentric left ventricular hypertrophy. The left ventricular ejection fraction is 50 %. Stage 2 diastolic dysfunction. Right Ventricle Normal right ventricle. Atria The left atrium is moderately enlarged. Normal right atrium. Mitral Valve Moderate mitral annular calcification. Mild (1+) mitral valve insufficiency. Tricuspid Valve Moderate (2+) tricuspid valve insufficiency. Right ventricular systolic pressure estimated to be 59 mmHg. Aortic Valve The aortic valve is not well visualized in the short axis view. Pulmonic Valve The pulmonic valve is not well visualized. Great Vessels The aortic root is not well visualized. Pericardium/Pleural Epicardial fat. MMode/2D Measurements & Calculations LVIDd: 4.5 cm IVSd: 1.3 cm LAV(MOD-bp): 50.1 ml LVIDs: 2.5 cm LVPWd: 1.00 cm LAV(MOD-bp) Indexed: 26.3 ml/m2 RVDd: 3.5 cm FS: 44.4 % LAV(MOD-sp2): 66.8 ml LAV(MOD-sp4): 37.6 ml SV(MOD-sp4): 31.3 ml LVAd ap4: 20.3 cm2 LVAd ap2: 23.7 cm2 LVLd ap4: 6.2 cm LVLd ap2: 7.1 cm EDV(MOD-sp4): 55.2 ml EDV(MOD-sp2): 64.5 ml EDV(sp4-el): 56.3 ml EDV(sp2-el): 67.3 ml LVAs ap4: 12.4 cm2 LVAs ap2: 16.5 cm2 LVLs ap4: 5.7 cm LVLs ap2: 7.1 cm ESV(MOD-sp4): 23.9 ml ESV(MOD-sp2): 30.9 ml ESV(sp4-el): 22.9 ml ESV(sp2-el): 32.7 ml EF(MOD-sp4): 56.7 % EF(MOD-sp2): 52.1 % EF(sp4-el): 59.4 % SV(MOD-sp2): 33.6 ml SV(sp4-el): 33.4 ml Ao sinus diam: 2.7 cm LA A4 area: 15.4 cm2 LA dimension(2D): 3.8 cm RA A4 area: 11.9 cm2 TAPSE: 1.6 cm Time Measurements MV dec time: 0.19 sec Doppler Measurements & Calculations MV E max forest: 112.6 cm/sec Lat Peak E' Forest: 4.8 cm/sec Med Peak E' Forest: 4.3 cm/sec MV A max forest: 75.2 cm/sec E/E' lat: 23.6 E/E' med: 26.1 MV E/A: 1.5 TR max forest: 330.0 cm/sec MV dec slope: 595.6 cm/sec2 TR max P.6 mmHg ECHO/Echo, Limited Study Interpretation Summary Mild concentric left ventricular hypertrophy. The left ventricular ejection fraction is 50 %. Posterior and apical hypokinesi s. Stage 2 diastolic dysfunction. The left atrium is moderately enlarged. Moderate mitral annular calcification. Mild (1+) mitral valve insufficiency. Moderate (2+) tricuspid valve insufficiency. Right ventricular systolic pressure estimated to be 59 mmHg. Ordering Physician: Doris Connell Referring Physician: Justyn Lange Performed By: Jalyn Schafer, RDJOAN
[2024-01-27 07:44] LABS: Allen Test Positive; Base Excess 2 mmol/L (-2 to +2); Bicarbonate 29.5 mmol/L (22-26); Blood Gas Specimen Type ART; Mode Not entered; O2 Delivery Device BiPAP; PEEP 10; PO2 121 mmHG (75-100); SITE R Radial; SO2 98 % (95-99); Total Carbon Dioxide 32 mmol/L; pCO2 72.1 mmHg (35-45); pH 7.22 (7.35-7.45)
[2024-01-27 07:50] LABS: BNP,B-Type NATRIURETIC PEPTIDE 1464.5 pg/mL (0-100)
[2024-01-27 07:58] LABS: ALB/GLOB Ratio 0.7 RATIO (0.9-2.4); AST(SGOT) 14 U/L (15-37); Alanine Aminotransfer ALT/SGPT 13 U/L (13-56); Albumin, Serum 2.6 g/dL (3.2-5.0); Alkaline Phosphatase 96 U/L (45-117); Anion Gap 6 (5-15); BUN 25 mg/dL (7-18); BUN/Creat Ratio 28.2 RATIO (10-20); Calcium,Total 9.1 mg/dL (8.5-10.1); Chloride 104 mmol/L (98-107); Creatinine, Serum 0.89 mg/dL (0.55-1.02); EST Glomerular Filtration Rate 66 mL/min (>60); Est Glom Filt Rate - Afr Amer 80 mL/min (>60); Estimated Creatinine Clearance 59.06 ml/min; Globulin 3.6 g/dL (2.2-4.2); Glucose 243 mg/dL (74-106); Potassium 4.3 mmol/L (3.5-5.1); Protein, Total 6.2 g/dL (6.4-8.2); Sodium Level 137 mmol/L (136-145); Troponin-I HS 615 pg/mL (3.0-54.0)
--- NOTE | 2024-01-27 08:13 | PCM.PN.HOSP ---
Reason for Visit Reason for Visit: Hematuria Subjective Subjective Patient is a 73-year-old female who was transferred from the transitional care unit after she started having significant hematuria with a stone in the right kidney. She had previously undergone cystoscopy with stent placement and was readmitted because of bleeding. Hospital medicine was consulted for assistance with medical issues. She was taken to the OR on 01/23/2024 and 01/24/[address] Lange. I was notified urgently this morning and she had altered mental status with some respiratory distress. Patient does have chronic respiratory issues with COPD and is on baseline 3 to 4 L of oxygen. She has required intermittent BiPAP during her hospital stay per nursing. She received 2 units of blood last night and had already received Lasix. She did have recent admission for an NSTEMI at which time an echocardiogram was performed and showed an EF of 45 to 50% with a fixed being hypokinetic and no evidence of diastolic dysfunction. Cardiac catheterization has been done recently on 01/07/2024 at which time she was found to have proximal circumflex disease and a drug-eluting stent was placed. We have transferred her to the ICU for ongoing care. Objective Data Objective Data Vital Signs: Vital Signs Temp Pulse Resp BP Pulse Ox O2 Del Method O2 Flow Rate 97.1 F L 67 25 H 130/59 H 100 Bi-pap 3 01/27/24 01:19 01/27/24 07:00 01/27/24 07:00 01/27/24 01:19 01/27/24 07:11 01/27/24 07:11 01/27/24 07:10 FiO2 100 01/27/24 07:00 Oxygen Flow Rate (L/min) 3 Oxygen Delivery Method Bi-pap Weight: 87.543 kg Body Mass Index (BMI) 34.2 Intake & Output: Intake and Output for Last 24 Hours 01/25/24 01/26/24 01/27/24 23:59 23:59 23:59 Intake Total 1200 / 1200 1300 / 1300 Output Total 450 / 450 200 / 200 200 / 200 Balance 750 / 750 1100 / 1100 -200 / -200 Lab / Micro Data 01/27/24 07:15 01/27/24 07:15 Labs: Laboratory Results - last 24 hr 01/26/24 06:25: WBC 15.7 H, RBC 2.16 L, Hgb 6.7 L, Hct 21.7 L, MCV 100.5 H D, MCH 31.0, MCHC 30.9 L D, RDW Std Deviation 67.1 H, RDW Coeff of Nasir 18.2 H, Plt Count 178, MPV 10.1, Immature Gran % (Auto) 0.400, Neut % (Auto) 82.0 H, Lymph % (Auto) 10.0 L, Sunflower % (Auto) 5.9, Eos % (Auto) 1.5, Baso % (Auto) 0.2, Absolute Neuts (auto) 12.8 H, Absolute Lymphs (auto) 1.56, Nucleated RBC % 0, Differential Comment SCANNED, Anisocytosis 2+, Microcytosis 1+, Macrocytosis 1+ 01/26/24 09:20: Blood Type B POSITIVE, Antibody Screen NEGATIVE, Crossmatch See Detail 01/27/24 07:15: WBC 19.3 H, RBC 3.14 L, Hgb 9.9 L, Hct 30.7 L, MCV 97.8, MCH 31.5, MCHC 32.2, RDW Std Deviation 59.7 H, RDW Coeff of Nasir 17.4 H, Plt Count 171, MPV 9.9, Immature Gran % (Auto) 0.700, Neut % (Auto) 81.9 H, Lymph % (Auto) 9.4 L, Sunflower % (Auto) 6.4, Eos % (Auto) 1.2, Baso % (Auto) 0.4, Absolute Neuts (auto) 15.8 H, Absolute Lymphs (auto) 1.81, Nucleated RBC % 0, Sodium 137, Potassium 4.3, Chloride 104, Carbon Dioxide 28.0, Anion Gap 6, BUN 25 H, Creatinine 0.89, Estim Creat Clear Calc 59.06, Est GFR (MDRD) Af Amer 80, Est GFR (MDRD) Non-Af 66, BUN/Creatinine Ratio 28.2 H, Glucose 243 H, Calcium 9.1, Total Bilirubin 0.90, AST 14 L, ALT 13, Alkaline Phosphatase 96, Troponin I High Sens 615 H*, B-Natriuretic Peptide 1464.5 H, Total Protein 6.2 L, Albumin 2.6 L, Globulin 3.6, Albumin/Globulin Ratio 0.7 L ABG Data ABG results: ABG 01/27/24 07:41 Specimen Type ART Sample Site R Radial pH 7.22 L Bicarbonate Actual 29.5 H Total CO2 32 Base Excess 2 O2 Saturation 98 O2 % 65.0 ABG pCO2 72.1 H* ABG pO2 121 H Ismael Test Positive O2 Delivery Device BiPAP Vent Mode Not entered Tidal Volume 450.0 POC PEEP 10 Crit Call To/Read Back Yes Physical Exam Const well nourished Constitutional Narrative: Obese, older, white female, lying in bed, fairly somnolent but intermittently follows commands, will respond to name with delayed response HEENT head/scalp atraumatic and moist oral mucous membranes Head and Scalp: normocephalic Eyes PERRL Eyes Narrative: No scleral icterus, conjunctiva pallor bilaterally Neck no lymphadenopathy and supple Neck Narrative: Neck is short and thick, trachea midline Resp Resp Narrative: Tachypnea, on BiPAP, currently appears comfortable with no signs of accessory muscle use or retractions, markedly diminished diffusely with few crackles in bilateral bases left greater than right Cardio regular rate, regular rhythm, S1 normal heart sound, S2 normal heart sound, no murmurs, no rub, no gallops and no clicks GI normal to inspection, nondistended, normoactive bowel sounds, soft to palpation and non-tender Extremity no clubbing, cyanosis or edema Extremity Narrative: 2+ radial and pedal pulses Skin no jaundice, no petechiae and no mottling Skin Narrative: Skin is pale, scattered ecchymosis Neuro Neuro Narrative: Will move all extremities to command however responses delayed due to somnolence Psych Psych Narrative: Unable to fully assess due to mental status Assessment & Plan Assessment/Plan (1) Acute on chronic respiratory failure with hypoxia and hypercapnia: (2) Kidney stone on right side: (3) Elevated troponin I level: (4) Leukocytosis: (5) Hyperglycemia: (6) Toxic metabolic encephalopathy: (7) Acute on chronic systolic heart failure: PLAN: Plan Acute on chronic hypoxic and hypercapnic respiratory failure--> multifactorial with concerns for sepsis, heart failure, and possible pneumonia -At baseline patient is on 3 to 4 L nasal cannula -ABG is consistent with acute hypercapnia with a pH of 7.22 and a pCO2 of 72 -Continue BiPAP and wean as able -Repeat ABG at 10 -Okay for pulse ox to run between 90 and 92% with chronic hypercapnia -Patient was given Lasix 40 mg IV push x 1 as she does appear to be in heart failure -Check blood cultures, UA and urine cultures, and sputum culture available to produce -Check stat limited echocardiogram -Will have to hold on further Lasix at this time due to hypotension -Continue aggressive pulmonary toilet -Add steroids 40 IV every 8 -Add incentive spirometer -Add Acapella -Patient may need to be assessed for BiPAP at the time of discharge as I suspect there may be a component of undiagnosed sleep apnea -Transition antibiotics from Levaquin to vancomycin and Zosyn -Consult critical care medicine Sepsis with shock -Patient with acute respiratory failure with need for BiPAP, altered mental status, hypotension, leukocytosis -Unable to give fluids due to respiratory status and acute systolic heart failure -Start Levophed to maintain MAP greater than 65 and systolic pressure greater than 90 -Check blood, urine, and sputum culture if able to produce -Transition from Levaquin to Zosyn and vancomycin -Stat lactic pending -Hold home antihypertensives due to hypotension Acute on chronic systolic heart failure -Most recent echocardiogram from 01/08/2024 showed an EF of 45 to 50% and a hypokinetic apex with no evidence of diastolic dysfunction -BNP is markedly elevated with normal renal function at 1464.5 -Lasix 40 mg given this morning early however patient is now hypotensive so unable to give further diuretics -Will avoid any excessive fluids -Chest x-ray is consistent with heart failure showing a new left pleural effusion -Will diurese as able -Weight does appear to be up -Once able to restart diet will add fluid and sodium restriction Troponin elevation -615 on a.m. lab however unclear if this is trending down from recent NSTEMI or new elevation -Will trend -Check limited echo -Restart Plavix and continue aspirin per discussion with Dr. Lange -Cardiology consultation-discussed with Dr. Cisneros Leukocytosis -Etiology is unclear -Cultures pending -Continue broad-spectrum antibiotics with changes noted above -Repeat lab in a.m. Acute on chronic anemia -Transfused 2 units packed red blood cells yesterday for hemoglobin of 6.7 -Hemoglobin at 9.9 this morning -No signs of active bleeding and urine into the [place] shows signs of old blood -Cycle hemoglobin every 6 hours x 3 CAD/essential hypertension/hyperlipidemia -Patient with recent stent into the circumflex artery on 01/08/2024 -EKG with no changes consistent with acute thrombosis -Hold antihypertensives due to hypotension -Continue atorvastatin as mental status allows -Continue aspirin and restart Plavix per discussion with urology History of peptic ulcer disease -EGD done on 01/07/2024 and showed nonbleeding gastric ulcers with no stigmata of recent bleeding and nonbleeding duodenal ulcers -Will need to continue aspirin and Plavix -Start Carafate -Continue Protonix but IV with 40 mg twice daily COPD -3 to 4 L at baseline -Continue Pulmicort -Continue scheduled nebulizers -Add I-S and PEP therapy Lupus/mixed connective disorder -Continue hydroxychloroquine Gross hematuria secondary to staghorn calculus -Recent cystoscopy and lithotripsy -No acute bleeding noted in [place] blood all looks old currently -Patient is admitted to urology service Anxiety -Hold Ativan patient is not on this at home and could precipitate worsening respiratory status -Monitor clinically Obesity -BMI 34.2 -Recommend weight loss -complicates treatment, prognosis, outcomes -Highly suspect patient may have DANIELA at baseline and needs outpatient polysomnography -Will check with case management to see if we can qualify her for BiPAP at discharge as I think this would be beneficial at night DVT prophylaxis -Continue SCDs and avoid chemoprophylaxis due to bleeding CODE STATUS -Full code ## Critical care time greater than 36 minutes without procedures.## Sepsis Attestation Sepsis Alert: Yes Sepsis Attestation: Agree w/Sepsis Date exam was performed: 01/27/24 Time exam was performed: 08:34 Possible Source of Sepsis: Other (Unknown but suspect with recent instumentation) Sepsis Organ Dysfunction Criteria Present: SBP < 90 mmHg or MAP < 65 mmHg, Acute Respiratory Failure (New need for BiPAP/CPAP or MV) and New/Unexplained change in mental status Fluid Resuscitation Fluid resuscitation indicated?: Yes Fluid Resuscitation ordered: Lesser volume fluid bolus ordered Amount of fluid ordered: 0 Reason for lesser fluid bolus:: Heart failure (Pt in CHF so fluids witheld) Charges/Coding Procedures Hospitalists Procedures: 54845 Critical Care 1st Hr
--- NOTE | 2024-01-27 08:32 | NURSING ---
report given to Pretty RN in ICU and pt transferred to 201. Dr. Lange saw pt earlier on [facility] and stated he wanted to talk to family and that he called and left them a msg.
--- NOTE | 2024-01-27 08:33 | CPS ---
critical ABG results handed to Dr. Connell
--- NOTE | 2024-01-27 08:58 | CON.PCM.CA_ITS ---
Assessment & Plan Assessment/Plan (1) Elevated troponin: PLAN: I believe her troponins are trending down from her recent NSTEMI. (2) Coronary artery disease: PLAN: History of NSTEMI and subsequent drug-eluting stent placement to the proximal left circumflex on 01/06/2024. Continue aspirin. Clopidogrel is being withheld because of transfusion requiring gross hematuria. (3) Cardiomyopathy: PLAN: Ejection fraction noted to be 45 to 50% on echocardiogram during last admission. Repeat limited echocardiogram. (4) Respiratory failure: PLAN: Most probably secondary to advanced COPD. Manage as per internal medicine. Recommend critical care consult. (5) Advanced COPD: PLAN: See #4 above. (6) Gross hematuria: PLAN: As per urology. HPI Consult Data Date of Consult: 01/27/24 HPI Narrative Reason for Consultation: Elevated troponin HPI Narrative: This lady has past medical history significant for COPD and coronary artery disease status post NSTEMI and subsequently drug-eluting stent placement to her proximal left circumflex on 01/06/2024. She also has history of nephrolithiasis. She has had recent cystoscopy and lithotripsy done. She was on the TCU from where she was transferred because of devon hematuria. This morning she has had mental status changes. ABGs showed marked hypercapnia with pCO2 of 72. Troponin was noted to be 615. These are down from more than 2000 on 01/13/2024. Her troponin level on 01/06/2024 was more than 19,000. Patient has been having devon hematuria. As per the hospitalist note, she received 2 units of packed red cells last night. Presently patient is on BiPAP. Very drowsy. Not able to give any history. [facility] Medical History Non-ST elevation ME (NSTEMI) GI bleed COVID-19 Acute ME Atherosclerosis of coronary artery of [place] heart without angina pectoris Staghorn renal calculus Urinary tract infection Gross hematuria Acute dehydration Skin tag History of left breast cancer RIGHT ANKLE FRACTURE REPAIR EXCISION STOMACH TUMOR Parkinson disease Mixed connective tissue disease Polyarthropathy Lupus Hypertension COPD (chronic obstructive pulmonary disease) Asthma Arthritis Pulmonary nodules/lesions, multiple Tobacco use disorder Breast pain Osteopenia Malignant neoplasm of central portion of female breast Low bone density Home Medications ?Medication ?Instructions ?Recorded ?Last Taken ?Type tramadol 50 mg tablet 50 mg PO DAILY PRN Pain Score 1-10 03/02/14 01/12/24 History oxybutynin chloride 5 mg tablet 5 - 10 mg PO BID pain 01/25/20 01/12/24 History cholecalciferol (vitamin D3) 50 2,000 unit PO DAILY deficiency 07/27/20 01/22/24 History mcg (2,000 unit) capsule hydroxychloroquine 200 mg tablet 200 mg PO BIDCM arthritis 07/27/20 01/12/24 History aspirin 81 mg chewable tablet 81 mg PO DAILYCM Heart #0 tabs 06/06/23 01/22/24 Rx budesonide 160 mcg-glycopyr 9 2 inh inhalation BID breathing 07/05/23 01/12/24 Rx mcg-formot 4.8 mcg/actuation HFA #10.7 grams inhaler (Breztri Aerosphere) atorvastatin 40 mg tablet 40 mg PO QHS cholesterol #30 tabs 01/07/24 01/15/24 Rx carvedilol 6.25 mg tablet 6.25 mg PO BID blood pressure #60 01/07/24 01/22/24 Rx tabs lisinopril 10 mg tablet 10 mg PO DAILY blood presure #30 01/07/24 01/22/24 Rx tabs omeprazole 20 mg capsule,delayed 20 mg PO BID acid reflux #120 caps 01/08/24 01/16/24 Rx release levofloxacin 750 mg tablet 750 mg PO .q48 Antibiotic #3 tabs 01/16/24 01/16/24 Rx prednisone 20 mg tablet 40 mg (2 x 20 mg) PO DAILYCM 01/16/24 01/22/24 Rx Steriod 7 days #14 tabs ciprofloxacin HCl 500 mg tablet 500 mg PO BID #14 tabs 01/24/24 Unknown Rx (Cipro) Allergy/AdvReac Type Severity Reaction Status Date / Time bromide salts (bromide) AdvReac Hives Verified 01/22/24 13:12 strawberry AdvReac Hives Verified 01/22/24 13:12 Family History Mother Arthritis Diabetes Hypertension Osteoporosis Father Arthritis Heart disease Sister Arthritis Breast cancer Diabetes Hypertension Son Diabetes Other Alzheimer disease Anemia Hyperlipidemia Thyroid disorder Surgical History History of coronary artery stent placement (01/07/24) History of lung biopsy History of tubal ligation History of lumpectomy Hx of cholecystectomy Social History household members: spouse Smoking Status: Former smoker alcohol intake: never substance use type: does not use Physical Exam Narrative Patient drowsy. On BiPAP. Heart sounds 1 and 2 are noted. Markedly decreased air entry bilaterally on chest examination. No ankle edema. Urine bag shows devon hematuria. Risk Stratification Risk Stratification Applicable: No Objective Data Vital Signs: Vital Signs Temp Pulse Resp BP Pulse Ox O2 Del Method O2 Flow Rate 97.8 F 80 21 H 121/53 H 98 Bi-pap 3 01/27/24 08:08 01/27/24 08:08 01/27/24 08:08 01/27/24 08:08 01/27/24 08:08 01/27/24 08:08 01/27/24 07:10 FiO2 100 01/27/24 07:00 Oxygen Flow Rate (L/min) 3 Oxygen Delivery Method Bi-pap Weight: 193 lb Body Mass Index (BMI) 34.2 Intake & Output: Intake and Output for Last 24 Hours 01/25/24 01/26/24 01/27/24 23:59 23:59 23:59 Intake Total 1200 / 1200 1300 / 1300 Output Total 450 / 450 200 / 200 200 / 200 Balance 750 / 750 1100 / 1100 -200 / -200 Lab / Micro Data 01/27/24 07:15 01/27/24 07:15 Labs: Laboratory Results - last 24 hr 01/26/24 06:25: Differential Comment SCANNED, Anisocytosis 2+, Microcytosis 1+, Macrocytosis 1+ 01/26/24 09:20: Blood Type B POSITIVE, Antibody Screen NEGATIVE, Crossmatch See Detail 01/27/24 07:15: WBC 19.3 H, RBC 3.14 L, Hgb 9.9 L, Hct 30.7 L, MCV 97.8, MCH 31.5, MCHC 32.2, RDW Std Deviation 59.7 H, RDW Coeff of Nasir 17.4 H, Plt Count 171, MPV 9.9, Immature Gran % (Auto) 0.700, Neut % (Auto) 81.9 H, Lymph % (Auto) 9.4 L, [place] % (Auto) 6.4, Eos % (Auto) 1.2, Baso % (Auto) 0.4, Absolute Neuts (auto) 15.8 H, Absolute Lymphs (auto) 1.81, Nucleated RBC % 0, Sodium 137, Potassium 4.3, Chloride 104, Carbon Dioxide 28.0, Anion Gap 6, BUN 25 H, Creatinine 0.89, Estim Creat Clear Calc 59.06, Est GFR (MDRD) Af Amer 80, Est GFR (MDRD) Non-Af 66, BUN/Creatinine Ratio 28.2 H, Glucose 243 H, Calcium 9.1, Total Bilirubin 0.90, AST 14 L, ALT 13, Alkaline Phosphatase 96, Troponin I High Sens 615 H*, B-Natriuretic Peptide 1464.5 H, Total Protein 6.2 L, Albumin 2.6 L, Globulin 3.6, Albumin/Globulin Ratio 0.7 L ABG Data ABG results: ABG 01/27/24 07:41 Specimen Type ART Sample Site R Radial pH 7.22 L Bicarbonate Actual 29.5 H Total CO2 32 Base Excess 2 O2 Saturation 98 O2 % 65.0 ABG pCO2 72.1 H* ABG pO2 121 H Ismael Test Positive O2 Delivery Device BiPAP Vent Mode Not entered Tidal Volume 450.0 POC PEEP 10 Crit Call To/Read Back Yes Cardiology Labs/Tests 01/27/24 07:15: WBC 19.3 H, RBC 3.14 L, Hgb 9.9 L, Hct 30.7 L, MCV 97.8, MCH 31.5, MCHC 32.2, Plt Count 171, MPV 9.9, Immature Gran % (Auto) 0.700, Neut % (Auto) 81.9 H, Lymph % (Auto) 9.4 L, [place] % (Auto) 6.4, Eos % (Auto) 1.2, Baso % (Auto) 0.4, Absolute Neuts (auto) 15.8 H, Nucleated RBC % 0, Sodium 137, Potassium 4.3, Chloride 104, Carbon Dioxide 28.0, Anion Gap 6, BUN 25 H, Creatinine 0.89, Est GFR (MDRD) Af Amer 80, Est GFR (MDRD) Non-Af 66, B UN/Creatinine Ratio 28.2 H, Glucose 243 H, Calcium 9.1, Total Bilirubin 0.90, B- Natriuretic Peptide 1464.5 H 01/27/24 07:41: pH 7.22 L, Bicarbonate Actual 29.5 H, Base Excess 2, O2 Saturation 98, ABG pCO2 72.1 H*, ABG pO2 121 H, Ismael Test Positive Rhythm: EKG: ECHO: Stress Test: Cardiac Cath: PCI: CT Surgery: Holter monitor: EPS: PPM: CXR: Chest CT Scan: Radiography Diagnostic Testing: Radiology Impression Chest X-Ray 01/27/24 07:10 IMPRESSION: New left pleural effusion associated with bibasilar ill-defined opacities may reflect atelectasis and/or pneumonia. Stable cardiomegaly. Electronically Signed: Karen Weems MD at 8:32 EDT ,
--- NOTE | 2024-01-27 09:15 | RAD_ITS ---
INDICATION: RIJ Central line placement EXAMINATION/TECHNIQUE: X-RAY - XR Chest 1 View COMPARISON: January 27, 2024 at 7:15 AM FINDINGS: LINES/DEVICES: There is a new right-sided internal jugular venous catheter in place terminating within the expected region of the superior vena cava. LUNGS: There is a stable left pleural effusion. There are stable prominent interstitial markings. No pneumothorax. MEDIASTINUM AND CARDIOVASCULAR STRUCTURES: There is stable cardiomegaly. Central airways and mediastinal contour are unremarkable. BONES AND SOFT TISSUES: Unremarkable. RAD/CXR for Line Placement IMPRESSION: New right-sided internal jugular venous catheter in place terminating within the expected region of the superior vena cava, otherwise stable examination. Electronically Signed: Karen Weems MD at 9:30 EDT ,
--- NOTE | 2024-01-27 09:30 | CASEMGMT ---
Social Work SW updated Unique in TCU that pt has been transferred to ICU and is not ready for dc at this time. Plan: Return to TCU, precert will be needed AUGUSTINE Garcia
[2024-01-27] MEDS: Vancomycin HCl 1,250 MG in 0.9% Normal Saline (250mL Bag) 250 ML 167 MG IV (09:50)
[2024-01-27 09:51] LABS: Hemoglobin 8.7 g/dL (12.0-15.0)
[2024-01-27 09:53] LABS: Lactic Acid 0.8 mmol/L (0.4-1.9)
[2024-01-27 10:01] LABS: Bacteria 0 SEEN /hpf (None Seen); Mucous, Urine 0 SEEN /hpf (<or=2+); Squamous Epithelial Cells - UA 0 SEEN /hpf (5-10)
[2024-01-27 10:03] LABS: Color, Urine Yellow (Yellow); Glucose, Dipstick Normal (Normal); Ketone-Dipstick Negative (Negative); Leukocyte Esterase-Dipstick 500 /ul (Negative); Nitrite-Dipstick Negative (Negative); Occult Blood-Urine 250 /ul (Negative); Protein-Dipstick 30 mg/dl (Negative); Specific Gravity, Urine 1.015 (1.002-1.030); Urine Bilirubin Dipstick Negative (Negative); Urine Clarity Cloudy (Clear); Urine Urobilinogen Normal (Normal)
--- NOTE | 2024-01-27 10:04 | PCM.OP.PRO ---
Procedure Report Date of Procedure: 01/27/24 Central Venous Catheter Indication: Acute hypotension Consent was obtained from: This was an emergent procedure A time-out was completed verifying correct patient, procedure, site, positioning, and special equipment if applicable. The patient was placed in a dependent position appropriate for central line placement based on the vein to be cannulated. The patient's right neck was prepped and draped in a sterile fashion. 1% lidocaine was used to anesthetize the surrounding skin area. A triple-lumen catheter was introduced into the right internal jugular vein using the Seldinger technique and under ultrasound guidance. The catheter was threaded smoothly over the guidewire and appropriate blood return was obtained. Each lumen of the catheter was evacuated of air and flushed with sterile saline. The catheter was then sutured in place to the skin and a sterile dressing applied. Chest x-ray to confirm appropriate positioning is pending. ULTRASOUND GUIDANCE STATEMENT (Vascular Access): I performed ultrasound image acquisition and interpretation for needle placement during the procedure. The vessel was identified and found to be free of thrombosis by compression technique. A safe point of entry was marked at the skin in an angle for axis was determined. The needle was guided by obtaining free-flowing fluid and by real-time visualization. Procedures Hospitalists Procedures: [id number] Insertion Catheter Artery (With ultrasound guidance)
[2024-01-27 10:08] LABS: Allen Test Positive; Base Excess 3 mmol/L (-2 to +2); Bicarbonate 27.8 mmol/L (22-26); Blood Gas Specimen Type ART; Comment avaps; Mode Not entered; O2 Delivery Device BiPAP; PEEP 10; PO2 67 mmHG (75-100); RR 12; SITE R Radial; SO2 92 % (95-99); Total Carbon Dioxide 29 mmol/L; pCO2 48.4 mmHg (35-45); pH 7.37 (7.35-7.45)
[2024-01-27 10:40] LABS: Red Blood Cells-Urine > 100 SEEN /hpf (0-5); White Blood Cells 25-50 SEEN /hpf (0-5)
--- NOTE | 2024-01-27 10:47 | PCM.RX.CS ---
Consult Antibiotic Management Pharmacy has been consulted to manage selected antibiotic: Vancomycin Type of Intervention Type of Consult: Follow-up Suspected Infection Suspected Infection: Sepsis Prior Doses of Antibiotics Prior Doses of Antibiotics Received/Current Regimen: Vancomycin 1250 mg IV x 1 given 01/27/24 @ 0950 Labs Labs: Sodium 137 mmol/L (136-145) 01/27/24 07:15 Potassium 4.3 mmol/L (3.5-5.1) 01/27/24 07:15 Chloride 104 mmol/L (98-107) 01/27/24 07:15 Carbon Dioxide 28.0 mmol/L (21.0-32.0) 01/27/24 07:15 Anion Gap 6 (5-15) 01/27/24 07:15 BUN 25 mg/dL (7-18) H 01/27/24 07:15 Creatinine 0.89 mg/dL (0.55-1.02) 01/27/24 07:15 Est GFR (MDRD) Af Amer 80 mL/min (>60) 01/27/24 07:15 Est GFR (MDRD) Non-Af 66 mL/min (>60) 01/27/24 07:15 BUN/Creatinine Ratio 28.2 RATIO (10-20) H 01/27/24 07:15 Glucose 243 mg/dL (74-106) H 01/27/24 07:15 Dosing Weight Weight used for dosin kg Estimated Creatinine Clearance Estimated Creatinine Clearance: ~59 Goal Trough Goal Trough: 15-20 mcg/mL Pharmacy Plan for Drug Dosing Pharmacy Plan for Drug Dosing: Vancomycin initial dose 1250 mg IV x 1 followed by 750 mg Q12H. Pharmacy Service will continue to monitor and adjust dosing as required. Follow-Up Labs Follow-Up Labs: Trough: Vancomycin Date/Time Labs Ordered Labs to be done on [date and time ordered]: 01/28/24 @ 4181
[2024-01-27 10:52] LABS: Troponin-I HS 592 pg/mL (3.0-54.0)
[2024-01-27] MEDS: Pantoprazole Sodium 40 MG in 0.9% Normal Saline (100mL MB+) 100 ML 330 MG IV ×2 (11:29→21:11)
--- NOTE | 2024-01-27 11:43 | CHAPLAIN ---
Type of Pastoral Visit ___ Initial Visit _x__ Follow-up Visit ___ On-call Visit ___ General Patient Visit ___ Spiritual Assessment ___ Family Conference ___ Bereavement ___ Rapid Response ___ Code Blue ___ Other (describe below) Pastoral Care Referral From ___ Patient _x__ Family ___ Nurse ___ Physician ___ Hose Finisher ___ Car Hiker ___ Other (describe below) Sacrament/Intervention _x__ Active listening ___ Anointing ___ Mormon ___ Bereavement ___ Communion ___ Charity exploration ___ ___ Life review _x__ Prayer ___ Reconciliation ___ Sacrament of Sick _x__ Supportive presence ___ Wedding ___ Other (describe below) Pastoral Comments family requested a visit to this patient who has been seen before in PCU and TCU; pt is resting quietly at this time and RN recommends that she not be disturbed; family members are in the waiting room and this professional model sits with them to explore how they are doing and what they need; pt's daughter is most vocal and speaks for the family; they would appreciate prayer and availability to check in on the patient; daughter has several questions and seeks comfort for the situation; family appears to be supporting one another well;
--- NOTE | 2024-01-27 12:54 | CON.PCM.CC_ITS ---
HPI Consult Data Date of Consult: 01/28/24 HPI Narrative HPI Narrative: ZEINAB HULL, is a 73 F who presents [facility] Medical History Non-ST elevation NM (NSTEMI) GI bleed COVID-19 Acute NM Atherosclerosis of coronary artery of [place] heart without angina pectoris [place] renal calculus Urinary tract infection Gross hematuria Acute dehydration Skin tag History of left breast cancer RIGHT ANKLE FRACTURE REPAIR EXCISION STOMACH TUMOR Parkinson disease Mixed connective tissue disease Polyarthropathy Lupus Hypertension COPD (chronic obstructive pulmonary disease) Asthma Arthritis Pulmonary nodules/lesions, multiple Tobacco use disorder Breast pain Osteopenia Malignant neoplasm of central portion of female breast Low bone density Home Medications ?Medication ?Instructions ?Recorded ?Last Taken ?Type tramadol 50 mg tablet 50 mg PO DAILY PRN Pain Score 1-10 03/02/14 01/12/24 History oxybutynin chloride 5 mg tablet 5 - 10 mg PO BID pain 01/25/20 01/12/24 History cholecalciferol (vitamin D3) 50 2,000 unit PO DAILY deficiency 07/27/20 01/22/24 History mcg (2,000 unit) capsule hydroxychloroquine 200 mg tablet 200 mg PO BIDCM arthritis 07/27/20 01/12/24 History aspirin 81 mg chewable tablet 81 mg PO DAILYCM Heart #0 tabs 06/06/23 01/22/24 Rx budesonide 160 mcg-glycopyr 9 2 inh inhalation BID breathing 07/05/23 01/12/24 Rx mcg-formot 4.8 mcg/actuation HFA #10.7 grams inhaler (Breztri Aerosphere) atorvastatin 40 mg tablet 40 mg PO QHS cholesterol #30 tabs 01/07/24 01/15/24 Rx carvedilol 6.25 mg tablet 6.25 mg PO BID blood pressure #60 01/07/24 01/22/24 Rx tabs lisinopril 10 mg tablet 10 mg PO DAILY blood presure #30 01/07/24 01/22/24 Rx tabs omeprazole 20 mg capsule,delayed 20 mg PO BID acid reflux #120 caps 01/08/24 01/16/24 Rx release levofloxacin 750 mg tablet 750 mg PO .q48 Antibiotic #3 tabs 01/16/24 01/16/24 Rx prednisone 20 mg tablet 40 mg (2 x 20 mg) PO DAILYCM 01/16/24 01/22/24 Rx Steriod 7 days #14 tabs ciprofloxacin HCl 500 mg tablet 500 mg PO BID #14 tabs 01/24/24 Unknown Rx (Cipro) Allergy/AdvReac Type Severity Reaction Status Date / Time bromide salts (bromide) AdvReac Hives Verified 01/22/24 13:12 strawberry AdvReac Hives Verified 01/22/24 13:12 Family History Mother Arthritis Diabetes Hypertension Osteoporosis Father Arthritis Heart disease Sister Arthritis Breast cancer Diabetes Hypertension Son Diabetes Other Alzheimer disease Anemia Hyperlipidemia Thyroid disorder Surgical History History of coronary artery stent placement (01/07/24) History of lung biopsy History of tubal ligation History of lumpectomy Hx of cholecystectomy Social History household members: spouse Smoking Status: Former smoker alcohol intake: never substance use type: does not use Objective Data Objective Data Vital Signs: Vital Signs Last response 3 Temperature 36.3 C L 01/27/24 08:25 Temperature Source Temporal 01/27/24 08:25 Pulse Rate 73 01/27/24 12:44 Pulse Strength Weak (1+) 01/26/24 10:29 Respiratory Rate 23 H 01/27/24 12:44 Respiratory Effort Normal, Non-Labored 01/24/24 19:45 Respiratory Depth Normal 01/25/24 09:58 Respiratory Pattern Tachypnea 01/27/24 12:44 Blood Pressure 139/56 H 01/27/24 12:00 Blood Pressure Mean 83 01/27/24 12:00 Blood Pressure Source Monitor 01/27/24 12:00 Blood Pressure Position Semi-Fowlers 01/27/24 12:00 Blood Pressure Location Right Arm 01/27/24 12:00 Baseline BP 141/46 01/24/24 18:30 Pulse Ox 97 01/27/24 12:17 Oxygen Delivery Method Bi-pap 01/27/24 12:00 Oxygen Flow Rate (L/min) 3 01/27/24 07:10 Fraction of Inspired Oxygen (FIO2) 30 01/27/24 12:17 I&O: I&O Last 24 Hours 3 01/26/24 01/27/24 01/27/24 23:59 11:59 23:59 Intake Total 1300 / 1300 275 / 385 110 / 385 Output Total 200 / 200 550 / 550 Balance 1100 / 1100 -275 / -165 110 / -165 I&O: Total Stay 3 01/22/24 11:23 thru 01/27/24 12:19 Intake Total 3325 Output Total 1800 Balance 1525 Current Meds Ordered / Administered: Current meds ordered / Administered 3 Generic Name Dose Route Start Last Admin Trade Name Freq PRN Reason Stop Dose Admin Acetaminophen 650 mg 01/23/24 08:17 01/27/24 06:42 Acetaminophen 325 Mg Tablet PO 650 mg Q6H PRN PRN Administration Pain Score 1-10 Albuterol Sulfate 2.5 mg 01/26/24 17:17 01/26/24 22:14 Albuterol 2.5 Mg/3 Ml Vial.Neb. INHALATION 2.5 mg Q2H PRN PRN Administration DYSPNEA/WHEEZING/SOB Albuterol/Ipratropium 3 ml 01/23/24 12:00 01/27/24 12:43 Ipratropium/Albuterol Sulfate 3 Ml Ampul.Neb INHALATION 3 ml Q6HWA.RT KERRI Administration Aspirin 81 mg 01/24/24 08:00 01/27/24 09:49 Aspirin E.C. 81 Mg Tablet PO Not Given BREAKFAST KERRI Atorvastatin Calcium 40 mg 01/23/24 22:00 01/26/24 21:20 Atorvastatin Calcium 40 Mg Tablet PO 40 mg QHS KERRI Administration Budesonide 0.5 mg 01/23/24 12:00 01/27/24 07:22 Budesonide Respules 0.5 Mg/2 Ml Ampul.Neb. INHALATION 0.5 mg Q12H.RT KERRI Administration Carvedilol 6.25 mg 01/27/24 17:00 Carvedilol 6.25 Mg Tablet PO BIDCM [facility] Protocol Cholecalciferol 50 mcg 01/23/24 10:00 01/27/24 09:54 Cholecalciferol (Vit D3) 25 Mcg Tablet (1,000 Units) PO Not Given DAILY [facility] Clopidogrel Bisulfate 75 mg 01/27/24 10:00 01/27/24 09:53 Clopidogrel Bisulfate 75 Mg Tablet PO Not Given DAILY [facility] Docusate Sodium 200 mg 01/23/24 10:00 01/27/24 09:53 Docusate Sodium 100 Mg Capsule PO Not Given BID [facility] Hydroxychloroquine Sulfate 200 mg 01/23/24 17:00 01/27/24 09:49 Hydroxychloroquine 200 Mg Tablet PO Not Given BIDCM KERRI Sodium Chloride 100 mls @ 15 mls/hr 01/24/24 11:07 IV .Q6H40M PRN Saline Flush Sodium Chloride 100 mls @ 15 mls/hr 01/24/24 11:07 IV .Q6H40M PRN Additional IVPB Infusion Sodium Chloride 500 mls @ 15 mls/hr 01/25/24 12:01 IV .[id number] PRN Additional IVPB Infusion Norepinephrine Bitartrate 8 mg 250 mls @ 9.375 mls/hr 01/27/24 08:35 01/27/24 11:26 / Sodium Chloride CONT INF Not Given .[id number] KERRI Protocol 5 MCG/MIN Piperacillin Sod/Tazobactam 50 mls @ 12.5 mls/hr 01/27/24 14:00 Sod 3.375 gm/ Sodium Chloride IV Q8 KERRI Vancomycin IV-PHARMACY TO DOSE 500 mls @ 250 mls/hr 01/27/24 08:31 1 each/ Sodium Chloride IV PRN PRN Rx to Dose Protocol Pantoprazole Sodium 40 mg/ 110 mls @ 330 mls/hr 01/27/24 10:00 01/27/24 12:19 Sodium Chloride IV Infused BID [facility]ERRI Infusion Vancomycin HCl 750 mg/ Sodium 265 mls @ 250 mls/hr 01/27/24 22:00 Chloride IV Q12H KERRI Lisinopril 10 mg 01/23/24 10:00 01/26/24 09:51 Lisinopril 10 Mg Tablet PO 10 mg DAILY KERRI Administration Protocol Lorazepam 0.5 mg 01/24/24 09:09 01/27/24 00:59 Lorazepam 2 Mg/Ml Syringe IV 0.5 mg Q6H PRN PRN Administration ANXIETY/AGITATION Methylprednisolone 40 mg 01/27/24 08:33 01/27/24 09:50 Methylprednisolone 40 Mg/Ml Vial IV 40 mg Q8 KERRI Administration Oxybutynin Chloride 5 - 10 mg 01/27/24 17:00 Oxybutynin 5 Mg Tablet PO BIDCM KERRI Pantoprazole Sodium 20 mg 01/23/24 10:00 01/26/24 21:20 Pantoprazole Sodium 20 Mg Tablet PO 20 mg BID KERRI Administration Sodium Chloride 10 - 40 ml 01/23/24 12:16 01/27/24 07:03 0.9% Saline Lock 10 Ml Syringe IV 10 ml UD PRN Administration SALINE FLUSH Sucralfate 1 gm 01/27/24 11:00 01/27/24 11:26 Sucralfate 1 Gm Tablet PO Not Given 1HR_ACHS KERRI Tolterodine Tartrate 2 mg 01/23/24 08:17 Tolterodine Tartrate 2 Mg Cap.Sa PO DAILY PRN BLADDER SPASMS Tramadol HCl 50 mg 01/23/24 08:21 01/27/24 01:00 Tramadol 50 Mg Tablet PO 50 mg DAILY PRN Administration Pain Score 1-10 Vancomycin Protocol 1 lab 01/28/24 19:30 Vancomycin Trough/Random Due MC 01/28/24 23:30 DAILY [facility] Lab / Micro Data 01/27/24 21:09 01/27/24 07:15 Labs: Laboratory Results - last 24 hr 01/26/24 09:20: Blood Type B POSITIVE, Antibody Screen NEGATIVE, Crossmatch See Detail 01/27/24 07:15: WBC 19.3 H, RBC 3.14 L, Hgb 9.9 L, Hct 30.7 L, MCV 97.8, MCH 31.5, MCHC 32.2, RDW Std Deviation 59.7 H, RDW Coeff of Nasir 17.4 H, Plt Count 171, MPV 9.9, Immature Gran % (Auto) 0.700, Neut % (Auto) 81.9 H, Lymph % (Auto) 9.4 L, [place] % (Auto) 6.4, Eos % (Auto) 1.2, Baso % (Auto) 0.4, Absolute Neuts (auto) 15.8 H, Absolute Lymphs (auto) 1.81, Nucleated RBC % 0, Sodium 137, Potassium 4.3, Chloride 104, Carbon Dioxide 28.0, Anion Gap 6, BUN 25 H, Creatinine 0.89, Estim Creat Clear Calc 59.06, Est GFR (MDRD) Af Amer 80, Est GFR (MDRD) Non-Af 66, BUN/Creatinine Ratio 28.2 H, Glucose 243 H, Calcium 9.1, Total Bilirubin 0.90, AST 14 L, ALT 13, Alkaline Phosphatase 96, Troponin I High Sens 615 H*, B-Natriuretic Peptide 1464.5 H, Total Protein 6.2 L, Albumin 2.6 L, Globulin 3.6, Albumin/Globulin Ratio 0.7 L 01/27/24 09:15: Lactic Acid 0.8 01/27/24 09:40: Hgb 8.7 L, Ammonia 27.0 01/27/24 09:50: Urine Color Yellow, Urine Clarity Cloudy, Urine pH 6.0, Ur Specific [place] 1.015, Urine Protein 30 H, Urine Glucose (UA) Normal, Urine Ketones Negative, Urine Occult Blood 250 H, Urine Nitrite Negative, Urine Bilirubin Negative, Urine Urobilinogen Normal, Ur Leukocyte Esterase 500 H, Urine RBC > 100 SEEN, Urine WBC 25-50 SEEN, Ur Squamous Epith Cells 0 SEEN, Urine Bacteria 0 SEEN, Urine Mucus 0 SEEN 01/27/24 10:25: Troponin I High Sens 592 H* ABG Data ABG results: ABG 01/27/24 01/27/24 07:41 10:03 Specimen Type ART ART Sample Site R Radial R Radial pH 7.22 L 7.37 Bicarbonate Actual 29.5 H 27.8 H Total CO2 32 29 Base Excess 2 3 H O2 Saturation 98 92 L O2 % 65.0 35.0 ABG pCO2 72.1 H* 48.4 H ABG pO2 121 H 67 L Ismael Test Positive Positive Respiration Rate 12 O2 Delivery Device BiPAP BiPAP Vent Mode Not entered Not entered Tidal Volume 450.0 450.0 POC PEEP 10 10 Crit Call To/Read Back Yes Clinical Comments avaps Imaging Radiology Impression Chest X-Ray 01/27/24 07:10 IMPRESSION: New left pleural effusion associated with bibasilar ill-defined opacities may reflect atelectasis and/or pneumonia. Stable cardiomegaly. Electronically Signed: Karen Weems MD at 8:32 EDT , Echocardiogram 01/27/24 07:37 Interpretation Summary Mild concentric left ventricular hypertrophy. The left ventricular ejection fraction is 50 %. Posterior and apical hypokinesis. Stage 2 diastolic dysfunction. The left atrium is moderately enlarged. Moderate mitral annular calcification. Mild (1+) mitral valve insufficiency. Moderate (2+) tricuspid valve insufficiency. Right ventricular systolic pressure estimated to be 59 mmHg. Ordering Physician: Doris Connell Referring Physician: Justyn Lange Performed By: Jalyn Schafer, [facility] Chest X-Ray 01/27/24 09:15 IMPRESSION: New right-sided internal jugular venous catheter in place terminating within the expected region of the superior vena cava, otherwise stable examination. Electronically Signed: Karen Weems MD at 9:30 EDT , Assessment and Plan . Assessment and plan: HPI 72 yo chronically ill woman admitted 01/23/24 for additional treatment of a right ureteral stone. She has previously undergone stent placement. She now has undergone attempted laser lithotripsy. She has a h/o ASCVD, tobacco use and COPD, chronic CHF w/ ICM, and SKIP pulmonary mass. She takes DAPT chronically. Her recent procedure resulted in significant bleeding and anemia. She required RBC transfusion. She recently developed decreased LOC and hypercapnia, requiring NIV support. Acute respiratory acidosis has improved significantly. pCXR reveals lower lung zone opacities. Currently HD stable. She is resting comfortably. NIV w/ RR around 20 BPM - AVAPS mode, SpO2 95% Gross hematuria is clearing. BNP 1465. PHYSICAL EXAM GEN NAD VS as above HEENT NIV NECK supple COR RRR CHEST diminished ABD soft EXT modest edema SKIN w/d THALIA NF ASSESSMENT 1. Acute respiratory failure requiring NIV support 2. Metabolic encephalopathy 3. Tobacco use and emphysema 4. ICM, chronic CHF, elevated BNP 5. Nephrolithiasis 6. Anemia / hematuria 7. Pyuria 8. SKIP lung mass TREATMENT PLAN -supplemental O2 -NIV support for now -loop diuretics as tolerated -hold A/C -f/u UCX - receiving ABX -receiving inhaled BD and IV steroids -follow ASSOCIATE ACCOUNTANT clinically Critical Care Time: 60 min The entirety of this encounter was done via Telemedicine
[2024-01-27] MEDS: Piperacil/Tazobactam 3.375 GM in 0.9% Normal Saline (50mL MB+) 50 ML IV ×2 (13:59→22:06)
[2024-01-27 14:54] LABS: Hemoglobin 8.8 g/dL (12.0-15.0)
[2024-01-27 15:14] LABS: Troponin-I HS 626 pg/mL (3.0-54.0)
[2024-01-27] MEDS: Furosemide 100 MG/10 ML Vial 60 MG IV ×2 (18:30→23:46)
[2024-01-27] MEDS: Vancomycin HCl 750 MG in 0.9% Normal Saline (250mL Bag) 250 ML 250 MG IV (19:48)
[2024-01-27] MEDS: Sucralfate 1 GM Tablet PO (22:11)
[2024-01-27] MEDS: Atorvastatin Calcium 40 MG Tablet PO (22:12)
[2024-01-28] VITALS (18 sets, daily range): BP systolic 120–170; BP diastolic 52–100; PULSE 65–96; RESP 12–23; TEMP 36.1–36.7; O2SAT 92–99
[2024-01-28] MEDS: Piperacil/Tazobactam 3.375 GM in 0.9% Normal Saline (50mL MB+) 50 ML IV ×3 (05:19→20:30)
[2024-01-28 05:24] LABS: Absolute Lymphocyte Count 0.36 X10^3/uL (0.83-4.51); Absolute Neutrophil Count 9.1 X10^3/uL (2.0-7.7); Basophil# 0.01 X10^3/uL; Basophil% 0.1 % (0-1); Hematocrit 26.8 % (37-47); Lymphocyte # 0.36 X10^3/ul (0.83-4.51); Lymphocyte % 3.7 % (19-41); Mean Corp Hgb Conc 33.6 g/dL (32-36); Mean Corpuscular Hgb 31.3 pg (27.0-32.0); Mean Corpuscular Volume 93.1 fL (81-99); Mean Platelet Vol. 9.6 fl (6.2-12.0); Monocyte# 0.18 X10^3/uL; Monocyte% 1.9 % (0-10); NRBC Flagged by Analyzer 0 % (0-5); Neutrophil # 9.09 X10^3/uL (2.7-7.7); Neutrophil % 93.8 % (47-70); POSITIVE DIFFERENTIAL YES; Platelet Count 137 K/mm3 (150-450); RBC Distribution Width CV 16.3 % (11.6-14.6); RBC Distribution Width SD 54.5 fl (35.1-43.9); Red Blood Count 2.88 M/mm3 (4.2-5.4); White Blood Count 9.7 K/mm3 (4.4-11.0)
[2024-01-28 05:41] LABS: Anion Gap 5 (5-15); BUN 26 mg/dL (7-18); BUN/Creat Ratio 24.1 RATIO (10-20); Calcium,Total 8.8 mg/dL (8.5-10.1); Chloride 99 mmol/L (98-107); Creatinine, Serum 1.08 mg/dL (0.55-1.02); EST Glomerular Filtration Rate 53 mL/min (>60); Est Glom Filt Rate - Afr Amer 64 mL/min (>60); Estimated Creatinine Clearance 48.67 ml/min; Glucose 195 mg/dL (74-106); Magnesium 1.6 mg/dL (1.6-2.6); Phosphorus 3.4 mg/dL (2.5-4.9); Potassium 3.2 mmol/L (3.5-5.1); Sodium Level 138 mmol/L (136-145)
[2024-01-28] MEDS: Budesonide Respules 0.5 MG/2 ML AMPUL.NEB. INHALATION ×2 (06:56→19:02)
[2024-01-28] MEDS: Ipratropium/Albuterol Sulfate 3 ML AMPUL.NEB INHALATION ×3 (06:56→19:02)
[2024-01-28 07:30] LABS: Troponin-I HS 771 pg/mL (3.0-54.0)
[2024-01-28] MEDS: Docusate Sodium 100 MG Capsule 200 MG PO ×2 (08:55→20:31)
[2024-01-28] MEDS: Sucralfate 1 GM Tablet PO ×4 (08:55→20:30)
[2024-01-28] MEDS: Carvedilol 6.25 MG Tablet PO ×2 (08:56→16:19)
[2024-01-28] MEDS: Hydroxychloroquine 200 MG Tablet PO ×2 (08:56→08:57)
[2024-01-28] MEDS: Clopidogrel Bisulfate 75 MG Tablet PO ×2 (08:56→08:58)
[2024-01-28] MEDS: Lisinopril 10 MG Tablet PO (08:58)
[2024-01-28] MEDS: Cholecalciferol (VIT D3) 25 MCG TABLET (1,000 UNITS) 50 MCG PO (08:58)
[2024-01-28] MEDS: Aspirin E.C. 81 MG Tablet PO ×2 (08:59)
[2024-01-28] MEDS: Potassium Chloride Oral Tablet 20 MEQ 40 MEQ PO (10:45)
[2024-01-28] MEDS: Vancomycin HCl 750 MG in 0.9% Normal Saline (250mL Bag) 250 ML 250 MG IV (10:46)
--- NOTE | 2024-01-28 11:06 | PN.CC_ITS ---
Objective Data Objective Data Vital Signs: Vital Signs Last response 3 Temperature 36.6 C 01/28/24 00:00 Temperature Source Temporal 01/28/24 00:00 Pulse Rate 78 01/28/24 10:00 Pulse Strength Normal (2+) 01/28/24 09:30 Respiratory Rate 16 01/28/24 10:00 Respiratory Effort Short of Breath, Accessory Muscle Use 01/28/24 08:00 Respiratory Depth Normal 01/28/24 08:00 Respiratory Pattern Normal 01/28/24 08:00 Blood Pressure 135/54 H 01/28/24 10:00 Blood Pressure Mean 81 01/28/24 10:00 Blood Pressure Source Monitor 01/28/24 10:00 Blood Pressure Position Semi-Fowlers 01/28/24 10:00 Blood Pressure Location Left Arm 01/28/24 10:00 Baseline BP 141/46 01/24/24 18:30 Pulse Ox 98 01/28/24 10:00 Oxygen Delivery Method Nasal Cannula 01/28/24 10:00 Oxygen Flow Rate (L/min) 4 01/28/24 10:00 Fraction of Inspired Oxygen (FIO2) 30 01/27/24 21:00 I&O: I&O Last 24 Hours 3 01/27/24 01/27/24 01/28/24 11:59 23:59 11:59 Intake Total 275 / 870 595 / 870 100 / 100 Output Total 550 / 2850 2300 / 2850 1700 / 1700 Balance -275 / -1980 -1705 / -1980 -1600 / -1600 I&O: Total Stay 3 01/22/24 11:23 thru 01/28/24 09:31 Intake Total 3910 Output Total 5800 Balance -1890 Current Meds Ordered / Administered: Current meds ordered / Administered 3 Generic Name Dose Route Start Last Admin Trade Name Freq PRN Reason Stop Dose Admin Acetaminophen 650 mg 01/23/24 08:17 01/27/24 06:42 Acetaminophen 325 Mg Tablet PO 650 mg Q6H PRN PRN Administration Pain Score 1-10 Albuterol Sulfate 2.5 mg 01/26/24 17:17 01/26/24 22:14 Albuterol 2.5 Mg/3 Ml Vial.Neb. INHALATION 2.5 mg Q2H PRN PRN Administration DYSPNEA/WHEEZING/SOB Albuterol/Ipratropium 3 ml 01/23/24 12:00 01/28/24 06:56 Ipratropium/Albuterol Sulfate 3 Ml Ampul.Neb INHALATION 3 ml Q6HWA.RT KERRI Administration Aspirin 81 mg 01/24/24 08:00 01/28/24 08:59 Aspirin E.C. 81 Mg Tablet PO 81 mg BREAKFAST KERRI Administration Atorvastatin Calcium 40 mg 01/23/24 22:00 01/27/24 22:12 Atorvastatin Calcium 40 Mg Tablet PO 40 mg QHS KERRI Administration Budesonide 0.5 mg 01/23/24 12:00 01/28/24 06:56 Budesonide Respules 0.5 Mg/2 Ml Ampul.Neb. INHALATION 0.5 mg Q12H.RT KERRI Administration Carvedilol 6.25 mg 01/27/24 17:00 01/28/24 08:56 Carvedilol 6.25 Mg Tablet PO 6.25 mg BIDCM KERRI Administration Protocol Cholecalciferol 50 mcg 01/23/24 10:00 01/28/24 08:58 Cholecalciferol (Vit D3) 25 Mcg Tablet (1,000 Units) PO 50 mcg DAILY KERRI Administration Clopidogrel Bisulfate 75 mg 01/27/24 10:00 01/28/24 08:58 Clopidogrel Bisulfate 75 Mg Tablet PO 75 mg DAILY KERRI Administration Docusate Sodium 200 mg 01/23/24 10:00 01/28/24 08:55 Docusate Sodium 100 Mg Capsule PO 200 mg BID KERRI Administration Hydroxychloroquine Sulfate 200 mg 01/23/24 17:00 01/28/24 08:57 Hydroxychloroquine 200 Mg Tablet PO 200 mg BIDCM KERRI Administration Sodium Chloride 100 mls @ 15 mls/hr 01/24/24 11:07 IV .Q6H40M PRN Saline Flush Sodium Chloride 100 mls @ 15 mls/hr 01/24/24 11:07 IV .Q6H40M PRN Additional IVPB Infusion Sodium Chloride 500 mls @ 15 mls/hr 01/25/24 12:01 IV .[id number] PRN Additional IVPB Infusion Piperacillin Sod/Tazobactam 50 mls @ 12.5 mls/hr 01/27/24 14:00 01/28/24 09:31 Sod 3.375 gm/ Sodium Chloride IV Infused Q8 KERRI Infusion Vancomycin IV-PHARMACY TO DOSE 500 mls @ 250 mls/hr 01/27/24 08:31 1 each/ Sodium Chloride IV PRN PRN Rx to Dose Protocol Vancomycin HCl 750 mg/ Sodium 265 mls @ 250 mls/hr 01/27/24 22:00 01/28/24 10:46 Chloride IV 250 mls/hr Q12H KERRI Administration Lisinopril 10 mg 01/23/24 10:00 01/28/24 08:58 Lisinopril 10 Mg Tablet PO 10 mg DAILY KERRI Administration Protocol Lorazepam 0.5 mg 01/24/24 09:09 01/27/24 00:59 Lorazepam 2 Mg/Ml Syringe IV 0.5 mg Q6H PRN PRN Administration ANXIETY/AGITATION Methylprednisolone 40 mg 01/27/24 08:33 01/28/24 05:13 Methylprednisolone 40 Mg/Ml Vial IV 40 mg Q8 KERRI Administration Oxybutynin Chloride 5 - 10 mg 01/27/24 17:00 01/27/24 17:07 Oxybutynin 5 Mg Tablet PO Not Given BIDCM KERRI Pantoprazole Sodium 20 mg 01/23/24 10:00 01/26/24 21:20 Pantoprazole Sodium 20 Mg Tablet PO 20 mg BID KERRI Administration Sodium Chloride 10 - 40 ml 01/23/24 12:16 01/27/24 07:03 0.9% Saline Lock 10 Ml Syringe IV 10 ml UD PRN Administration SALINE FLUSH Sucralfate 1 gm 01/27/24 11:00 01/28/24 08:55 Sucralfate 1 Gm Tablet PO 1 gm 1HR_ACHS KERRI Administration Tolterodine Tartrate 2 mg 01/23/24 08:17 Tolterodine Tartrate 2 Mg Cap.Sa PO DAILY PRN BLADDER SPASMS Tramadol HCl 50 mg 01/23/24 08:21 01/27/24 01:00 Tramadol 50 Mg Tablet PO 50 mg DAILY PRN Administration Pain Score 1-10 Vancomycin Protocol 1 lab 01/28/24 19:30 Vancomycin Trough/Random Due MC 01/28/24 23:30 DAILY [facility] Lab / Micro Data 01/28/24 05:12 01/28/24 05:12 Labs: Laboratory Results - last 24 hr 01/26/24 09:20: Crossmatch See Detail 01/27/24 14:45: Hgb 8.8 L, Troponin I High Sens 626 H* 01/27/24 21:09: Hgb 9.0 L 01/28/24 05:12: WBC 9.7, RBC 2.88 L, Hgb 9.0 L, Hct 26.8 L, MCV 93.1, MCH 31.3, MCHC 33.6, RDW Std Deviation 54.5 H, RDW Coeff of Nasir 16.3 H, Plt Count 137 L, MPV 9.6, Immature Gran % (Auto) 0.500, Neut % (Auto) 93.8 H, Lymph % (Auto) 3.7 L, [place] % (Auto) 1.9, Eos % (Auto) 0.0, Baso % (Auto) 0.1, Absolute Neuts (auto) 9.1 H, Absolute Lymphs (auto) 0.36 L, Nucleated RBC % 0, Sodium 138, Potassium 3.2 L, Chloride 99, Carbon Dioxide 34.0 H, Anion Gap 5, BUN 26 H, Creatinine 1.08 H, Estim Creat Clear Calc 48.67, Est GFR (MDRD) Af Amer 64, Est GFR (MDRD) Non-Af 53 L, BUN/Creatinine Ratio 24.1 H, Glucose 195 H, Calcium 8.8, Phosphorus 3.4, Magnesium 1.6 01/28/24 06:58: Troponin I High Sens 771 H* Micro: Microbiology 01/27/24 09:50 Urine Catheter - Cortes Urine Culture - Preliminary GNR Poss Pseudomonas sp Imaging Radiology Impression Echocardiogram 01/27/24 07:37 Interpretation Summary Mild concentric left ventricular hypertrophy. The left ventricular ejection fraction is 50 %. Posterior and apical hypokinesis. Stage 2 diastolic dysfunction. The left atrium is moderately enlarged. Moderate mitral annular calcification. Mild (1+) mitral valve insufficiency. Moderate (2+) tricuspid valve insufficiency. Right ventricular systolic pressure estimated to be 59 mmHg. Ordering Physician: Doris Connell Referring Physician: Justyn Lange Performed By: Jalyn Schafer [facility] Assessment and Plan . Assessment and plan: HPI 72 yo chronically ill woman admitted 01/23/24 for additional treatment of a right ureteral stone. She has previously undergone stent placement. She now has undergone attempted laser lithotripsy. She has a h/o ASCVD, tobacco use and COPD, chronic CHF w/ ICM, and SKIP pulmonary mass. She takes DAPT chronically. Her recent procedure resulted in significant bleeding and anemia. She required RBC transfusion. She recently developed decreased LOC and hypercapnia, requiring NIV support. Acute respiratory acidosis has improved significantly. pCXR reveals lower lung zone opacities. Currently HD stable. She is resting comfortably. NIV w/ RR around 20 BPM - AVAPS mode, SpO2 95% Gross hematuria is clearing. BNP 1465. 01/28/24 She is improved Awake and alert, NAD Breathing 4 LPM O2 comfortably UCX reveals Pseudomonas Brisk UOP w/ furosemide PHYSICAL EXAM GEN NAD VS as above HEENT O2 N/C NECK supple COR RRR CHEST diminished ABD soft EXT modest edema SKIN w/d THALIA NF ASSESSMENT 1. Acute respiratory failure requiring NIV support - IMPROVED 2. Metabolic encephalopathy - IMPROVED 3. Tobacco use and emphysema 4. ICM, chronic CHF, elevated BNP 5. Nephrolithiasis 6. Anemia / hematuria 7. Pyuria / UTI 8. SKIP lung mass TREATMENT PLAN -supplemental O2 -loop diuretics as tolerated - try to keep (-) -hold A/C -IV ABX -receiving inhaled BD and IV steroids -follow [employer]ICIAN clinically Critical Care Time: 50 min The entirety of this encounter was done via Telemedicine
--- NOTE | 2024-01-28 11:43 | CASEMGMT ---
Addendum entered by Magdalena Ozuna 01/28/24 13:18: Social Work SW let Dr. Connell know we have precert, she states pt not ready today, will be ready tomorrow. SARAH let RN know, let pt and pt's daughter know we have precert but now we are planning for discharge tomorrow. RN will let Dr. Lange know as he had put a call out to him already, and he was the admitting physician. SW let [facility] know. Plan will be for TCU tomorrow. ERNESTO Saavedra Addendum entered by Magdalena Ozuna 01/28/24 13:10: Social Work Fabiana from [facility] called, pt approved for TCU , reference # is [id number]. SARAH let RN know, he will reach out to physician. SARAH let [facility] know the above information. Pt should be able to return to TCU today. ERNESTO Saavedra Original Note: Social Work As per physician, pt is ready to return to TCU today. SARAH let [facility] know. SARAH faxed all clinical information to [facility] for precert, will follow up if SW does not receive a call back. ERNESTO Saavedra
--- NOTE | 2024-01-28 16:52 | PCM.PN.HOSP ---
Reason for Visit Reason for Visit: Gross hematuria Subjective Subjective Patient states she is feeling much better today. Back to her baseline nasal cannula. I did discuss with both she and her family when I saw them later in the day that we are trying to get noninvasive ventilation for her at home at night as she does seem to qualify and I feel she would strongly benefit from this based on previous admissions for hypercapnia as well. We did discuss that if she remained stable throughout today the plan will be for transfer to TCU tomorrow. Objective Data Objective Data Vital Signs: Vital Signs Temp Pulse Resp BP Pulse Ox O2 Del Method O2 Flow Rate 98.1 F 71 16 136/65 H 92 Nasal Cannula 4 01/28/24 12:00 01/28/24 14:11 01/28/24 14:11 01/28/24 12:00 01/28/24 14:11 01/28/24 12:00 01/28/24 12:00 FiO2 30 01/28/24 14:11 Oxygen Flow Rate (L/min) 4 Oxygen Delivery Method Nasal Cannula Weight: 87.543 kg Body Mass Index (BMI) 34.2 Intake & Output: Intake and Output for Last 24 Hours 01/26/24 01/27/24 01/28/24 23:59 23:59 23:59 Intake Total 1300 / 1300 870 / 870 365 / 365 Output Total 200 / 200 2850 / 2850 2550 / 2550 Balance 1100 / 1100 -1979 / -1979 -2185 / -2185 Lab / Micro Data 01/28/24 05:12 01/28/24 05:12 Labs: Laboratory Results - last 24 hr 01/26/24 09:20: Crossmatch See Detail 01/27/24 21:09: Hgb 9.0 L 01/28/24 05:12: WBC 9.7, RBC 2.88 L, Hgb 9.0 L, Hct 26.8 L, MCV 93.1, MCH 31.3, MCHC 33.6, RDW Std Deviation 54.5 H, RDW Coeff of Nasir 16.3 H, Plt Count 137 L, MPV 9.6, Immature Gran % (Auto) 0.500, Neut % (Auto) 93.8 H, Lymph % (Auto) 3.7 L, [place] % (Auto) 1.9, Eos % (Auto) 0.0, Baso % (Auto) 0.1, Absolute Neuts (auto) 9.1 H, Absolute Lymphs (auto) 0.36 L, Nucleated RBC % 0, Sodium 138, Potassium 3.2 L, Chloride 99, Carbon Dioxide 34.0 H, Anion Gap 5, BUN 26 H, Creatinine 1.08 H, Estim Creat Clear Calc 48.67, Est GFR (MDRD) Af Amer 64, Est GFR (MDRD) Non-Af 53 L, BUN/Creatinine Ratio 24.1 H, Glucose 195 H, Calcium 8.8, Phosphorus 3.4, Magnesium 1.6 01/28/24 06:58: Troponin I High Sens 771 H* Micro: Microbiology 01/27/24 09:50 Urine Catheter - [place] Urine Culture - Preliminary GNR Poss Pseudomonas sp Physical Exam Const alert, oriented x3, no apparent distress and well nourished; Negative for average body habitus or healthy appearing Constitutional Narrative: Obese, older, white female, sitting up on the edge of the bed with therapy services at bedside, weaned back to her baseline of 4 L, appears comfortable, no signs of respiratory distress HEENT normocephalic, head/scalp atraumatic and moist oral mucous membranes HEENT Narrative: Mallampati is 3-4, no thrush Resp normal respiratory effort, no retractions, no use of accessory muscles and clear to auscultation bilaterally Resp Narrative: Diffusely diminished but no adventitious sounds, no signs of respiratory distress Auscultation: Negative for rales, rhonchi or wheezes Cardio regular rate, regular rhythm, S1 normal heart sound, S2 normal heart sound, no murmurs, no rub, no gallops and no clicks GI normal to inspection, nondistended, normoactive bowel sounds, soft to palpation and non-tender GI Narrative: Large protuberant abdomen Extremity no clubbing, cyanosis or edema Extremity Narrative: 2+ radial and pedal pulses Neuro oriented x3, moves all extremities and no focal motor deficits Psych affect normal Psych Narrative: Eye contact is good and patient interacts appropriately Assessment & Plan Assessment/Plan (1) Acute on chronic respiratory failure with hypoxia and hypercapnia: (2) Kidney stone on right side: (3) Elevated troponin I level: (4) Leukocytosis: (5) Hyperglycemia: (6) Toxic metabolic encephalopathy: (7) Acute on chronic systolic heart failure: PLAN: Plan Acute on chronic hypoxic and hypercapnic respiratory failure--> multifactorial with concerns for sepsis and acute exacerbation of CHF -At baseline patient is on 3 to 4 L nasal cannula -ABG is consistent with acute hypercapnia with a pH of 7.22 and a pCO2 of 72 -Hypercapnia has been resolved -Continue BiPAP at night and with naps with facemask -Patient with qualifying diagnoses for NIV at discharge to include chronic respiratory failure due to COPD -Patient had pCO2 of greater than or equal to 55 mmHg within the last 6 months -If her hypercapnia and obstructive sleep apnea goes untreated she is at risk for life-threatening events and all other alternative therapies have been considered and ruled out due to the severity of her disease and the life-threatening condition including CO2 retention. Patient has had multiple admissions here due to CO2 retention previously -Okay for pulse ox to run between 90 and 92% with chronic hypercapnia -Patient was given Lasix 40 mg IV push x 1 as she does appear to be in heart failure -Limited echo showed stable EF -Patient had Lasix overnight will likely dose at discharge -Continue aggressive pulmonary toilet -Add steroids 40 IV every 8--> would recommend slow prednisone wean at discharge -Continue incentive spirometer -Continue Acapella Sepsis with shock -Patient did have a few transient hypotensive episodes however responded with no excessive IV fluids and never required pressors so septic shock ruled out -Does appear to have pseudomonal UTI which may have contributed -Will continue antibiotics as ordered with Zosyn but discontinue vancomycin -Would recommend treatment at discharge Acute on chronic systolic heart failure -Most recent echocardiogram from 01/08/2024 showed an EF of 45 to 50% and a hypokinetic apex with no evidence of diastolic dysfunction -BNP is markedly elevated with normal renal function at 1464.5 -Patient had been given diuretics -Hold for now and plan to reinitiate oral diuretics tomorrow -Diet resumed with fluid restriction at 1750 and sodium restriction Troponin elevation -615 on a.m. lab however unclear if this is trending down from recent NSTEMI or new elevation -Cardiology following and patient is asymptomatic -No further interventions requested at this time Leukocytosis -Resolved Acute on chronic anemia -Transfused 2 units packed red blood cells yesterday for hemoglobin of 6.7 -Hemoglobin relatively stable -No signs of active bleeding and urine into the Persaud shows signs of old blood -d/c persaud CAD/essential hypertension/hyperlipidemia -Patient with recent stent into the circumflex artery on 01/08/2024 -EKG with no changes consistent with acute thrombosis -restart antihypertensives -Continue atorvastatin -Continue aspirin and Plavix History of peptic ulcer disease -EGD done on 01/07/2024 and showed nonbleeding gastric ulcers with no stigmata of recent bleeding and nonbleeding duodenal ulcers -Will need to continue aspirin and Plavix -continue Carafate -Continue Protonix and transitioned to PO COPD with chronic hypoxia and hypercapnia -3 to 4 L at baseline -Continue Pulmicort -Continue scheduled nebulizers -continue I-S and PEP therapy Lupus/mixed connective disorder -Continue hydroxychloroquine Gross hematuria secondary to staghorn calculus -Recent cystoscopy and lithotripsy -No acute bleeding noted in [place] blood all looks old currently -Patient is admitted to urology service Anxiety -Hold Ativan patient is not on this at home and could precipitate worsening respiratory status -Would recommend not continuing this at discharge as it will increase her risk for hypercapnia -Monitor clinically Obesity -BMI 34.2 -Recommend weight loss -complicates treatment, prognosis, outcomes -Highly suspect patient may have DANIELA at baseline and needs outpatient polysomnography -Will check with case management to see if we can qualify her for BiPAP at discharge as I think this would be beneficial at night DVT prophylaxis -Continue SCDs and avoid chemoprophylaxis due to bleeding CODE STATUS -Full code Charges/Coding Visit Charges Inpatient E&M: 10446 Subs Hosp L2
[2024-01-28] MEDS: 0.9% Saline Lock 10 ML Syringe IV (20:28)
[2024-01-28] MEDS: Atorvastatin Calcium 40 MG Tablet PO (20:32)
[2024-01-29 01:45] VITALS: PULSE 68; RESP 12; RESP 16; O2SAT 96
[2024-01-29 02:15] VITALS: BP 150/70; PULSE 72; RESP 18; TEMP 36.4; O2SAT 97
[2024-01-29] MEDS: 0.9% Saline Lock 10 ML Syringe IV (05:07)
[2024-01-29] MEDS: Piperacil/Tazobactam 3.375 GM in 0.9% Normal Saline (50mL MB+) 50 ML IV (05:07)
[2024-01-29 05:45] LABS: Absolute Lymphocyte Count 0.57 X10^3/uL (0.83-4.51); Absolute Neutrophil Count 9.6 X10^3/uL (2.0-7.7); Basophil# 0.01 X10^3/uL; Basophil% 0.1 % (0-1); Hematocrit 26.2 % (37-47); Hemoglobin 8.7 g/dL (12.0-15.0); Lymphocyte # 0.57 X10^3/ul (0.83-4.51); Lymphocyte % 5.4 % (19-41); Mean Corp Hgb Conc 33.2 g/dL (32-36); Mean Corpuscular Hgb 31.6 pg (27.0-32.0); Mean Corpuscular Volume 95.3 fL (81-99); Mean Platelet Vol. 9.7 fl (6.2-12.0); Monocyte% 3.8 % (0-10); NRBC Flagged by Analyzer 0 % (0-5); Neutrophil # 9.55 X10^3/uL (2.7-7.7); Neutrophil % 89.9 % (47-70); POSITIVE DIFFERENTIAL YES; Platelet Count 139 K/mm3 (150-450); RBC Distribution Width CV 16.4 % (11.6-14.6); RBC Distribution Width SD 57.1 fl (35.1-43.9); Red Blood Count 2.75 M/mm3 (4.2-5.4); White Blood Count 10.6 K/mm3 (4.4-11.0)
[2024-01-29 06:08] LABS: Anion Gap 4 (5-15); BUN 46 mg/dL (7-18); BUN/Creat Ratio 38.7 RATIO (10-20); Calcium,Total 8.8 mg/dL (8.5-10.1); Chloride 103 mmol/L (98-107); Creatinine, Serum 1.19 mg/dL (0.55-1.02); EST Glomerular Filtration Rate 47 mL/min (>60); Est Glom Filt Rate - Afr Amer 57 mL/min (>60); Estimated Creatinine Clearance 44.17 ml/min; Glucose 211 mg/dL (74-106); Potassium 3.1 mmol/L (3.5-5.1); Sodium Level 141 mmol/L (136-145)
[2024-01-29] MEDS: Sucralfate 1 GM Tablet PO (06:34)
--- NOTE | 2024-01-29 06:59 | TREXTCAR_ITS ---
Diet Diet Order/Speech Therapy: 01/28/24 11:47 Diet: Regular - General Dietary Modifications:: Sodium Restricted Type of Dietary Supplement:: Ensure Clear Fluid restriction:: 1750 mL Routine Orders/Code Status Suppository Frequency: Daily PRN O2 Frequency: Continuous (3-4 L) Keep PO Greater than or Equal to (%): 89 (89 to 92% is the goal) Routine Lab Work: CBC (1 week) and BMP (1 week) Code Status: Full Code Suggestions for Active Care Change Position every (hours): 2 Hours to sit in a chair: 2 Times a day to sit in chair: 3 Therapies Weight Bearing: Full weight bearing Physical Therapy: Eval and Treat Occupational Therapy: Eval and Treat Problem/Diagnosis (1) Acute on chronic respiratory failure with hypoxia and hypercapnia: Status: Chronic Code(s): J96.21 - Acute and chronic respiratory failure with hypoxia; J96.22 - Acute and chronic respiratory failure with hypercapnia (2) Kidney stone on right side: Status: Acute Code(s): N20.0 - Calculus of kidney (3) Elevated troponin I level: Status: Acute Code(s): R79.89 - Other specified abnormal findings of blood chemistry (4) Leukocytosis: Status: Acute Code(s): D72.829 - Elevated white blood cell count, unspecified (5) Hyperglycemia: Status: Acute Code(s): R73.9 - Hyperglycemia, unspecified (6) Toxic metabolic encephalopathy: Status: Acute Code(s): G92.8 - Other toxic encephalopathy (7) Acute on chronic systolic heart failure: Status: Chronic Code(s): I50.23 - Acute on chronic systolic (congestive) heart failure Allergies/Procedures Done in Hospital Allergies bromide salts (bromide) Adverse Reaction (Verified 01/22/24 13:12) Hives strawberry Adverse Reaction (Verified 01/22/24 13:12) Hives frozen strawberries Type of Care/Length of Stay Estimated LOS: Convalescent Care Less Than 30 days Type of Care Needed: Skilled Rehab Potential: Fair Prognosis: Fair Additional Orders/Day of Discharge Day of Discharge: 01/27/24 Dietary and Speech Recommendations Dietitian Recommendations/Changes: As medically able, rec W[place]ATT to liberal Regular Rec order 8 oz apple ensure clear tid w/ meals when diet resumes Follow Up Care Please Follow Up With: Justyn Lange MD When: will call to set up surgery Discharge Plan Admission Admit Date/Time: 01/23/24 08:17 Primary Reason for Your Visit: right kidney stone Attending Provider: Justyn Lange Primary Care Provider: Haritha Alonso Consulting Providers: Doris Connell; Jermaine Jaramillo; Esperanza Cisneros; Robbin Carvajal; Prince Ledesma; Loi Parker; Darwin Medeiros; Pankaj Fishman; Richie Caldera; Lara Soni; Alex Hurd; Jorge L Akins; Coral Elise; Calderon Huffman; Ashok Gunderson; Dominic Joaquin; Juan Miguel Hickey; Anastasia Hernandez; Mickey Fink; Sascha Day Instructions Additional Instructions / Restrictions: 1. Patient must wear BiPAP with naps and nightly Discharge Orders/Prescriptions Prescriptions: New ciprofloxacin HCl [Cipro] 500 mg tablet 500 mg PO BID Qty: 14 0RF clopidogrel 75 mg Tablet 75 mg PO DAILY Qty: 0 0RF docusate sodium 100 mg Capsule 200 mg PO BID Qty: 0 0RF acetaminophen 325 mg Tablet 650 mg PO Q6H PRN PRN (Reason: Pain Score 1-10) Qty: 0 0RF ipratropium-albuterol 0.5 mg-3 mg(2.5 mg base)/3 mL Solution For Nebulization 3 ml inhalation Q6HWA.RT Qty: 0 0RF sucralfate 1 gram Tablet 1 g PO 1HR_ACHS Qty: 1 0RF Rx Instructions: Continue for 6 weeks then stop prednisone 20 mg Tablet 40 mg PO BREAKFAST Qty: 1 0RF Rx Instructions: Slow prednisone taper with 40 mg x 3 days, 30 mg x 4 days, 20 mg x 4 days, 10 mg x 4 days then stop pantoprazole 40 mg Tablet,Delayed Release (Dr/Ec) 40 mg PO BID Qty: 1 0RF Rx Instructions: Will need to take twice daily for 8 weeks then revert to 40 mg daily Continued Breztri Aerosphere 160-9-4.8 mcg/actuation HFA aerosol inhaler 2 inh inhalation BID Qty: 10.7 6RF tramadol 50 MG tablet 50 mg PO DAILY PRN (Reason: Pain Score 1-10) oxybutynin chloride 5 MG tablet 5 - 10 mg PO BID hydroxychloroquine 200 MG tablet 200 mg PO BIDCM cholecalciferol (vitamin D3) 2,000 UNIT capsule 2,000 unit PO DAILY aspirin 81 mg Tablet,Chewable 81 mg PO DAILYCM Qty: 0 0RF atorvastatin 40 mg Tablet 40 mg PO QHS Qty: 30 0RF carvedilol 6.25 mg Tablet 6.25 mg PO BID Qty: 60 0RF lisinopril 10 mg Tablet 10 mg PO DAILY Qty: 30 0RF levofloxacin 750 mg tablet 750 mg PO .q48 Qty: 3 0RF Discontinued clopidogrel [Plavix] 75 mg tablet 75 mg PO DAILY Qty: 30 0RF Rx Instructions: start on 01/07/24 omeprazole 20 mg capsule,delayed release(DR/EC) 20 mg PO BID Qty: 120 0RF prednisone 20 mg Tablet 40 mg PO DAILYCM 7 Days Qty: 14 0RF Referrals / Follow Up: Zeb Rascon MD [Med Staff - Active Staff] - Within 1 Month Justyn Lange MD [Med Staff - Active Staff] - See Referral Note (Per instructions from physician) Alfredo Lozano DO [Med Staff - Active Staff] - See Referral Note (1 to 2 months) Haritha Alonso NP-C [Primary Care Provider] - Within 1 Week (After discharge from TCU) Disposition Disposition (needs filled in before D/C Order can be placed): Assisted [facility]
--- NOTE | 2024-01-29 07:01 | PCM.PN.HOSP ---
Reason for Visit Reason for Visit: Gross hematuria Objective Data Objective Data Vital Signs: Vital Signs Temp Pulse Resp BP Pulse Ox O2 Del Method O2 Flow Rate 97.5 F L 72 18 150/70 H 97 Bi-pap 4 01/29/24 02:15 01/29/24 02:15 01/29/24 02:15 01/29/24 02:15 01/29/24 02:15 01/29/24 02:15 01/28/24 20:14 FiO2 30 01/29/24 01:45 Oxygen Flow Rate (L/min) 4 Oxygen Delivery Method Bi-pap Weight: 87.543 kg Body Mass Index (BMI) 34.2 Intake & Output: Intake and Output for Last 24 Hours 01/27/24 01/28/24 01/29/24 23:59 23:59 23:59 Intake Total 870 / 870 415 / 415 50 / 50 Output Total 2850 / 2850 2550 / 2950 650 / 650 Balance -1979 / -1979 -2135 / -2535 -600 / -600 Lab / Micro Data 01/29/24 05:38 01/29/24 05:38 Labs: Laboratory Results - last 24 hr 01/28/24 06:58: Troponin I High Sens 771 H* 01/29/24 05:38: WBC 10.6, RBC 2.75 L, Hgb 8.7 L, Hct 26.2 L, MCV 95.3, MCH 31.6, MCHC 33.2, RDW Std Deviation 57.1 H, RDW Coeff of Nasir 16.4 H, Plt Count 139 L, MPV 9.7, Immature Gran % (Auto) 0.800, Neut % (Auto) 89.9 H, Lymph % (Auto) 5.4 L, [place] % (Auto) 3.8, Eos % (Auto) 0.0, Baso % (Auto) 0.1, Absolute Neuts (auto) 9.6 H, Absolute Lymphs (auto) 0.57 L, Nucleated RBC % 0, Sodium 141, Potassium 3.1 L, Chloride 103, Carbon Dioxide 34.0 H, Anion Gap 4 L, BUN 46 H, Creatinine 1.19 H, Estim Creat Clear Calc 44.17, Est GFR (MDRD) Af Amer 57 L, Est GFR (MDRD) Non-Af 47 L, BUN/Creatinine Ratio 38.7 H, Glucose 211 H, Calcium 8.8 Micro: Microbiology 01/27/24 09:50 Urine Catheter - [place] Urine Culture - Preliminary GNR Poss Pseudomonas sp Charges/Coding Visit Charges Inpatient E&M: 15680 Subs Hosp L2
[2024-01-29] MEDS: Budesonide Respules 0.5 MG/2 ML AMPUL.NEB. INHALATION (07:08)
[2024-01-29] MEDS: Ipratropium/Albuterol Sulfate 3 ML AMPUL.NEB INHALATION (07:08)
[2024-01-29 07:09] VITALS: PULSE 70; RESP 24; O2SAT 100
--- NOTE | 2024-01-29 07:37 | PCM.PN.BLA ---
Progress Note 73-year-old female status post laser obstructing bleeding stone, she was given some blood after the surgery for local hematocrit and she ended up getting pulmonary edema she was diuresed and she is doing much better looks like she is clinically stable I think whenever the hospitalist are comfortable she can go to TCU to continue her rehab no plans a laser or any remaining fragments at this point I told her I wanted her to recover completely before bring her back to laser the remaining fragments in her kidney since it was incomplete lasering and she has had a stent in. She is back on her blood thinner medications and not having any bleeding.
[2024-01-29 08:08] VITALS: BP 150/68; PULSE 71; RESP 24; TEMP 36.3; O2SAT 98
[2024-01-29] MEDS: Cholecalciferol (VIT D3) 25 MCG TABLET (1,000 UNITS) 50 MCG PO (08:17)
[2024-01-29] MEDS: Oxybutynin 5 MG Tablet PO (08:17)
[2024-01-29] MEDS: Docusate Sodium 100 MG Capsule 200 MG PO (08:18)
[2024-01-29] MEDS: Lisinopril 10 MG Tablet PO (08:18)
[2024-01-29] MEDS: Carvedilol 6.25 MG Tablet PO (08:18)
[2024-01-29] MEDS: Hydroxychloroquine 200 MG Tablet PO (08:18)
[2024-01-29] MEDS: Pantoprazole Sodium 40 MG Tablet PO (08:18)
[2024-01-29] MEDS: predniSONE 20 MG Tablet 40 MG PO (08:19)
[2024-01-29] MEDS: Potassium Chloride Oral Tablet 20 MEQ 60 MEQ PO (08:21)
--- NOTE | 2024-01-29 10:52 | CASEMGMT ---
Social Work Per physician, pt is ready for discharge today. Pt to return to TCU. Discharge orders faxed to TCU and [facility] in TCU notified of dc today. SW met with pt and and updated on dc plan and they are agreeable. Disposition: TCU, skilled level of care AUGUSTINE Garcia
--- NOTE | 2024-01-29 11:30 | PN.HOSP_ITS ---
Reason for Visit Reason for Visit: Gross hematuria Subjective Subjective Patient states she had a good night. Wore the BiPAP without any difficulty. We did discuss that she would be wearing the BiPAP ongoing at TCU at night and with naps and that we are trying to get a unit for her at home. She was pleased with this. We will make a referral to pulmonary medicine and she voiced understanding. She denies any shortness of breath above her baseline at this time and is anxious to go to rehab so she can work towards getting home. Objective Data Objective Data Vital Signs: Vital Signs Temp Pulse Resp BP Pulse Ox O2 Del Method O2 Flow Rate 97.4 F L 71 24 H 150/68 H 98 Nasal Cannula 3 01/29/24 08:08 01/29/24 08:08 01/29/24 08:08 01/29/24 08:08 01/29/24 08:08 01/29/24 08:08 01/29/24 08:08 FiO2 30 01/29/24 01:45 Oxygen Flow Rate (L/min) 3 Oxygen Delivery Method Nasal Cannula Weight: 87.543 kg Body Mass Index (BMI) 34.2 Intake & Output: Intake and Output for Last 24 Hours 01/27/24 01/28/24 01/29/24 23:59 23:59 23:59 Intake Total 870 / 870 415 / 415 100 / 100 Output Total 2850 / 2850 2550 / 2950 650 / 650 Balance -1979 / -1979 -2135 / -2535 -550 / -550 Lab / Micro Data 01/29/24 05:38 01/29/24 05:38 Labs: Laboratory Results - last 24 hr 01/29/24 05:38: WBC 10.6, RBC 2.75 L, Hgb 8.7 L, Hct 26.2 L, MCV 95.3, MCH 31.6, MCHC 33.2, RDW Std Deviation 57.1 H, RDW Coeff of Nasir 16.4 H, Plt Count 139 L, MPV 9.7, Immature Gran % (Auto) 0.800, Neut % (Auto) 89.9 H, Lymph % (Auto) 5.4 L, [place] % (Auto) 3.8, Eos % (Auto) 0.0, Baso % (Auto) 0.1, Absolute Neuts (auto) 9.6 H, Absolute Lymphs (auto) 0.57 L, Nucleated RBC % 0, Sodium 141, Potassium 3.1 L, Chloride 103, Carbon Dioxide 34.0 H, Anion Gap 4 L, BUN 46 H, Creatinine 1.19 H, Estim Creat Clear Calc 44.17, Est GFR (MDRD) Af Amer 57 L, Est GFR (MDRD) Non-Af 47 L, BUN/Creatinine Ratio 38.7 H, Glucose 211 H, Calcium 8.8 Micro: Microbiology 01/27/24 09:50 Urine Catheter - [place] Urine Culture - Final Pseudomonas aeruginosa Physical Exam Const alert, oriented x3, no apparent distress and well nourished; Negative for average body habitus or healthy appearing Constitutional Narrative: Obese, older, white female, sitting up in bed, appears comfortable, nontoxic, watching television and has just finished breakfast, stable on her baseline 3 L nasal cannula General Appearance: cooperative, well kempt and well developed HEENT normocephalic, head/scalp atraumatic and moist oral mucous membranes HEENT Narrative: Mallampati 3-4, no thrush Resp normal respiratory effort, no retractions, no use of accessory muscles and clear to auscultation bilaterally Resp Narrative: Diffusely diminished but no adventitious sounds, no signs of respiratory distress Auscultation: Negative for rales, rhonchi or wheezes Cardio regular rate, regular rhythm, S1 normal heart sound, S2 normal heart sound, no murmurs, no rub, no gallops and no clicks GI normal to inspection, nondistended, normoactive bowel sounds, soft to palpation and non-tender GI Narrative: Large protuberant abdomen Extremity no clubbing, cyanosis or edema Extremity Narrative: 2+ radial and pedal pulses Neuro oriented x3, moves all extremities and no focal motor deficits Neuro Narrative: Marked generalized weakness noted Speech: speech normal Psych affect normal Psych Narrative: Eye contact is good and patient interacts appropriately Assessment & Plan Assessment/Plan (1) Acute on chronic respiratory failure with hypoxia and hypercapnia: (2) Kidney stone on right side: (3) Elevated troponin I level: (4) Leukocytosis: (5) Hyperglycemia: (6) Toxic metabolic encephalopathy: (7) Acute on chronic systolic heart failure: PLAN: Plan Acute on chronic hypoxic and hypercapnic respiratory failure--> multifactorial with concerns for sepsis and acute exacerbation of CHF -Acute component now resolved and back to her baseline -At baseline patient is on 3 to 4 L nasal cannula -ABG was consistent with acute hypercapnia with a pH of 7.22 and a pCO2 of 72 at the time of ICU transfer -Patient has had this previously -Continue BiPAP at night and with naps with facemask -Patient with qualifying diagnoses for NIV at discharge to include chronic respiratory failure due to COPD -Patient had pCO2 of greater than or equal to 55 mmHg within the last 6 months -If her hypercapnia and obstructive sleep apnea goes untreated she is at risk for life-threatening events and all other alternative therapies have been considered and ruled out due to the severity of her disease and the life- threatening condition including CO2 retention. Patient has had multiple admissions here due to CO2 retention previously -Okay for pulse ox to run between 90 and 92% with chronic hypercapnia -Patient was given Lasix 40 mg IV push x 1 as she does appear to be in heart failure -Will discharge on a tapering dose of prednisone -Monitor for diuretic need as an outpatient but will not schedule at discharge -Would continue Acapella and incentive spirometry after discharge as well as aggressive pulmonary toilet -Will need outpatient follow-up with pulmonary medicine and cardiology Pseudomonas UTI -Antibiotics at discharge per urology Acute on chronic systolic heart failure -Most recent echocardiogram from 01/08/2024 showed an EF of 45 to 50% and a hypokinetic apex with no evidence of diastolic dysfunction -Appears now to be euvolemic -Will hold off on diuretics at discharge and monitor as an outpatient for need -Continue fluid and sodium restricted diet after discharge Hypokalemia -P.o. replacement given -Would check in 3 to 5 days after discharge Troponin elevation -615 on a.m. lab however unclear if this is trending down from recent NSTEMI or new elevation -Cardiology following and patient is asymptomatic -No further interventions requested at this time -Outpatient cardiology follow-up Acute on chronic anemia -Transfused 2 units PRBCs given on 01/25/2024 -Hemoglobin remains relatively stable despite reinitiation of Plavix in combination with continued aspirin CAD/essential hypertension/hyperlipidemia -Patient with recent stent into the circumflex artery on 01/08/2024 -EKG with no changes consistent with acute thrombosis -Continue home antihypertensives -Continue atorvastatin -Continue aspirin and Plavix History of peptic ulcer disease -EGD done on 01/07/2024 and showed nonbleeding gastric ulcers with no stigmata of recent bleeding and nonbleeding duodenal ulcers -Will need to continue aspirin and Plavix -continue Carafate will need to continue for 6 weeks after discharge -Continue Protonix 40 mg p.o. twice daily for 8 weeks then decrease dose to 40 mg daily COPD with chronic hypoxia and hypercapnia -3 to 4 L at baseline -Continue Pulmicort -Continue scheduled nebulizers -continue I-S and PEP therapy -Recommend outpatient pulmonary medicine follow-up after discharge from U Lupus/mixed connective disorder -Continue hydroxychloroquine Gross hematuria secondary to staghorn calculus -Recent cystoscopy and lithotripsy -No acute bleeding noted in [place] blood all looks old currently -Patient is admitted to urology service Anxiety -Avoid sedating medications -If patient has signs of air hunger could consider adding low-dose Roxanol at 2.5 to 5 mg for air hunger every 4-6 hours Obesity -BMI 34.2 -Recommend weight loss -complicates treatment, prognosis, outcomes DVT prophylaxis -Continue SCDs and avoid chemoprophylaxis due to bleeding CODE STATUS -Full code Charges/Coding Visit Charges Inpatient E&M: 07014 Subs Hosp L2
--- NOTE | 2024-02-20 07:39 | PCM.DC.SUM ---
Providers Date of Admission: 01/23/24 Date of Discharge: 02/29/24 Primary Care Physician: VALENTE Boyle Consultations 01/23/24 08:20 Consult: Hospitalist Routine Consulting Provider: Jermaine Jaramillo Reason for Consult: medical mangt EMERGENT Consult: No MD Notified: Yes Date Notified: 01/23/24 Time Notified: 10:52 Method of Notification: Verbal 01/23/24 08:22 Consult: Climatology Professor / Pulmonary Medicine Routine Consulting Provider: Intensivists/Pulmonary Med Reason for Consult: optimize lungs for surgery, need to laser stone causing bleeding. EMERGENT Consult: No MD Notified: Yes Date Notified: 01/23/24 Time Notified: 10:51 Method of Notification: Text 01/27/24 08:38 Consult: Cardiology Routine Consulting Provider: Esperanza Cisneros Reason for Consult: CHF with recent stent-Plavix was held with new stent EMERGENT Consult: No MD Notified: Yes Date Notified: 01/27/24 Time Notified: 08:59 Method of Notification: Verbal 01/27/24 09:29 Consult: Climatology Professor / Pulmonary Medicine Routine Consulting Provider: Intensivists/Pulmonary Med Reason for Consult: hypotension EMERGENT Consult: No MD Notified: Yes Date Notified: 01/27/24 Time Notified: 09:29 Method of Notification: Answering Service Method of Consult:: Telemedicine Reason For Visit: BLEEDING AND RIGHT KIDNEY STONE Diagnosis Discharge Diagnosis (1) Acute on chronic respiratory failure with hypoxia and hypercapnia: Status: Chronic Code(s): J96.21 - Acute and chronic respiratory failure with hypoxia; J96.22 - Acute and chronic respiratory failure with hypercapnia (2) Kidney stone on right side: Status: Resolved Code(s): N20.0 - Calculus of kidney Plan: Stent placement on the right side for large stone that is bleeding will admit the patient for this bleeding and monitor will have the plan to treat the stone with laser lithotripsy once we get off the Plavix. (3) Elevated troponin I level: Status: Acute Code(s): R79.89 - Other specified abnormal findings of blood chemistry (4) Leukocytosis: Status: Acute Code(s): D72.829 - Elevated white blood cell count, unspecified (5) Hyperglycemia: Status: Acute Code(s): R73.9 - Hyperglycemia, unspecified (6) Toxic metabolic encephalopathy: Status: Acute Code(s): G92.8 - Other toxic encephalopathy (7) Acute on chronic systolic heart failure: Status: Chronic Code(s): I50.23 - Acute on chronic systolic (congestive) heart failure Medications at Discharge Home Medications atropine 1 % eye drops 2 drp buccal DAILY secretion #15 mL 02/05/24 lorazepam 2 mg/mL oral concentrate 1 mg (0.5 mL) sublingual Q4H PRN PRN Anxiety/Restlessness/Sleep 7 days #30 mL 02/05/24 morphine 10 mg/5 mL oral solution 10 mg (5 mL) PO Q1H PRN dyspnea 7 days #100 mL 02/05/24 morphine concentrate 100 mg/5 mL (20 mg/mL) oral solution 10 mg (0.5 mL) sublingual Q1H PRN pain 7 days #30 mL 02/05/24 Hospital Course Operations - (laser stone in right kidney) Procedures None Summary of Care Provided Minutes Spent on Discharge: 35 Hospital Course: 73-year-old female with multiple medical problems who presented from transitional care unit with bleeding from the right kidney CAT scan was done demonstrated several stones bleeding and she has been on blood thinners show she was taken to surgery and had the stones lasered but I could not completely laser the stones because he got too bloody since the patient was on blood thinners for her heart disease. Postoperatively she had a trey course she ended up in the intensive care unit with fluid overload and congestive heart failure respiratory failure. Eventually she was diuresed and stabilized multiple consultations were obtained during her hospital stay to manage her complex medical care. Eventually she was stabilized and discharged back to transitional care unit with a stent in place with instructions to follow-up with urology to take her back to surgery and finish lasering out the stone since only partially lasered stones in the right kidney. So she was discharged back to the transitional care unit in stable condition she has extensive list of medical conditions and a fairly poor health will let her medical conditions improve stabilize and optimize prior to taking her back to surgery to finish lasering the stones but she did have a long hospital stay due to all her comorbidities. Physical Exam Const alert and oriented x3 General Appearance: cooperative HEENT normocephalic and head/scalp atraumatic Eyes PERRL and EOMs intact bilaterally Neck supple, no JVD and no carotid bruits Resp normal respiratory effort, normal air movement and clear to auscultation bilaterally Cardio regular rate and no murmurs GI normal to inspection, nondistended, normoactive bowel sounds and soft to palpation Extremity normal capillary refill General Extremity: no tenderness to palpation of joints or extremities; Negative for edema Skin no rashes or lesions noted and no wounds General Skin Exam: no breakdown Neuro CN's II-XII intact bilaterally Psych affect normal Appearance: appropriate Weight / BMI Weight Weight: 87.543 kg Body Mass Index (BMI) 34.2 ABG / Lab / Microbiology Data 01/29/24 05:38 01/29/24 05:38 Microbiology: Microbiology 01/27/24 09:28 Blood Culture (Wb) - Right Forearm Blood Culture - Final No growth in 5 days. 01/27/24 09:50 Urine Catheter - Cortes Urine Culture - Final Pseudomonas aeruginosa D/C Instructions Discharge Diet: No restrictions Discharge Activity: Return to Normal Activity and May Not Drive (while taking narcotic pain medications.) Call your doctor if you observe: Fever of 101 or Higher Please Follow Up With: Justyn Lange MD When: Call [phone] for an appointment Meaningful Use Info Meaningful Use Meaningful Use Diagnoses (Choose all that apply): None applicable Ischemic Stroke Statin Dosing Therapy Reference: STATIN DOSE THERAPY REFERENCE: * Patients > 75 years receive moderate or high dose statin therapy. * Patients 75 years or YOUNGER should receive HIGH intensity statin dose unless contraindicated. You will be required to document reason for non-treatment if statin daily dose does not meet guidelines. HIGH DOSE STATIN THERAPY DAILY Atorvastatin > than or = to 40 mg Rosuvastatin > than or = to 20 mg Amlodipine + Atorvastatin > than or = to 2.5/40 mg Ezetimibe + Simvastatin 10/80 mg Simvastatin 80mg Discharge Plan Admission Admit Date/Time: 01/23/24 08:17 Primary Reason for Your Visit: right kidney stone Attending Provider: Justyn Lange Primary Care Provider: Haritha Alonso Consulting Providers: Doris Connell; Jermaine Jaramillo; Esperanza Cisneros; Robbin Carvajal; Prince Ledesma; Loi Parker; Darwin Medeiros; Pankaj Fishman; Richie Caldera; Lara Soni; Alex Hurd; Jorge L Akins; Coral Elise; Calderon Huffman; Ashok Gunderson; Dominic Joaquin; Juan Miguel Hickey; Anastasia Hernandez; Mickey Fink; Sascha Day Instructions Additional Instructions / Restrictions: 1. Patient must wear BiPAP with naps and nightly Discharge Orders/Prescriptions Prescriptions: Discontinued clopidogrel [Plavix] 75 mg tablet 75 mg PO DAILY Qty: 30 0RF Rx Instructions: start on 01/07/24 omeprazole 20 mg capsule,delayed release(DR/EC) 20 mg PO BID Qty: 120 0RF prednisone 20 mg Tablet 40 mg PO DAILYCM 7 Days Qty: 14 0RF levofloxacin 750 mg tablet 750 mg PO .q48 Qty: 3 0RF No Action lorazepam 2 mg/mL Concentrate 1 mg sublingual Q4H PRN PRN (Reason: Anxiety/Restlessness/Sleep) 7 Days Qty: 30 0RF morphine 10 mg/5 mL solution 10 mg PO Q1H PRN (Reason: dyspnea) 7 Days Qty: 100 0RF atropine 1 % drops 2 drp buccal DAILY Qty: 15 0RF morphine concentrate 100 mg/5 mL (20 mg/mL) solution 10 mg sublingual Q1H PRN (Reason: pain) 7 Days Qty: 30 0RF Rx Instructions: HOSPICE PATIENT. Referrals / Follow Up: Zeb Rascon MD [Med Staff - Active Staff] - Within 1 Month Loi Parker DO [Med Staff - Active Staff] - Within 1 Month Justyn Lange MD [Med Staff - Active Staff] - See Referral Note (Per instructions from physician) Alfredo Lozano DO [Med Staff - Active Staff] - See Referral Note (1 to 2 months) Haritha Alonso NP-C [Primary Care Provider] - Within 1 Week (After discharge from TCU) Disposition Disposition (needs filled in before D/C Order can be placed): Group Home Facility
== END 2024-01-29 12:20 | disposition skilled nursing facility (03) | DRG 659 ==
LOC: SDC 11:32 → MS3 11:32 → ICU 01-27 08:25
PROVIDERS: Anesthesiology; Internal Medicine; Admitting Provider Urology; PCP Nurse Practitioner Family; Referring Provider Urology; Visit Provider Urology
PROC: 0T768DZ Dilation of Right Ureter with Intraluminal Device, Via Natural or Artificial Opening Endoscopic (ICD-10-PCS; CPT 52332; principal; 2024-01-23 07:20)
PROC: 0TJ98ZZ Inspection of Ureter, Via Natural or Artificial Opening Endoscopic (ICD-10-PCS; CPT 52352; principal; 2024-01-24 15:20)
DX: N20.0 Calculus of kidney (principal); G92.8 Other toxic encephalopathy; J96.22 Acute and chronic respiratory failure with hypercapnia; I21.4 Non-ST elevation (NSTEMI) myocardial infarction; J96.21 Acute and chronic respiratory failure with hypoxia; I50.23 Acute on chronic systolic (congestive) heart failure; M35.1 Other overlap syndromes; D62 Acute posthemorrhagic anemia; N39.0 Urinary tract infection, site not specified; J43.9 Emphysema, unspecified; I11.0 Hypertensive heart disease with heart failure; E66.9 Obesity, unspecified; I25.10 Atherosclerotic heart disease of native coronary artery without angina pectoris; E78.5 Hyperlipidemia, unspecified; G47.33 Obstructive sleep apnea (adult) (pediatric); E87.6 Hypokalemia; F41.9 Anxiety disorder, unspecified; I25.5 Ischemic cardiomyopathy; R31.0 Gross hematuria; R73.9 Hyperglycemia, unspecified; B96.5 Pseudomonas (aeruginosa) (mallei) (pseudomallei) as the cause of diseases classified elsewhere; Z68.34 Body mass index [BMI] 34.0-34.9, adult; Z79.2 Long term (current) use of antibiotics; Z79.02 Long term (current) use of antithrombotics/antiplatelets; Z79.51 Long term (current) use of inhaled steroids; Z79.82 Long term (current) use of aspirin; Z79.891 Long term (current) use of opiate analgesic; Z87.891 Personal history of nicotine dependence; Z95.5 Presence of coronary angioplasty implant and graft; Z99.81 Dependence on supplemental oxygen
CPT/HCPCS: 36415; 36600; 71045; 76000; 80048; 80053; 81001; 82140; 82803; 83605; 83735; 83880; 84100; 84484; 85014; 85018; 85025; 85027; 85610; 85730; 86850; 86900; 86901; 86920; 86922; 87040; 87077; 87086; 87088; 87184; 87186; 93005; 93308; 94002; 94003; 94640; 94762; 97162; 97166; 97530; 97535; 97802; 99406; J7050; J7120; P9016; A4216; C1769; C2617; J1940; J2405

== ENCOUNTER 2024-01-29 12:25 | Inpatient (IN) | payer MEDICARE, SELFPAY ==
[2024-01-29] VITALS (7 sets, daily range): BP systolic 170; BP diastolic 69; PULSE 69–96; RESP 12–27; TEMP 35.9; O2SAT 94–99; BMI 31.5
[2024-01-29] MEDS: Ipratropium/Albuterol Sulfate 3 ML AMPUL.NEB INHALATION ×2 (14:02→18:33)
--- NOTE | 2024-01-29 14:13 | HP.PCM_ITS ---
HPI - General General Date of Admission: 01/29/24 Date of Service: 01/29/24 Chief Complaint: Here for rehabilitation prior to right kidney stone lithotripsy. HPI Narrative ZEINAB HULL, is a 73 female who presents with followin01/23/2024 Admit [facility]. 01/23/2024 TCU resident with covid-19, nstemi, acute respiratory failure with hypoxia. Hematuria 2/2 right staghorn calculus with progressive anemia. 01/23/2024 Dr. Lange performed cystoscopy with right stent placement, needs laser of stone once bleeding improves. 01/23/2024 nstemi with stent was 01/07/2024. Ok to hold Plavix for now, but continue aspirin 81mg daily, discussed with c ardiology. 01/24/2024 Dr. Lange performed cystoscopy with right retrograde pyelogram with right uteroscopy laser lithotripsy of stone and right stent placement. 01/25/2024 Plan TCU 01/27/2024. Needs further lithotripsy later. 01/26/2024 Hemoglobin 6.7, transfuse 2 units PRBC. s/p partial lithotripsy. 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 Transfer to ICU. 01/27/2024 Echo mild concentric LVH. EF 50% posterior and apical hypokinesis. Stage 2 diastolic dysfunction. rvsp 59mm HG. 01/27/2024 Hematuria clearing, s/p 2 unit PRBC for hemoglobin 6.7. 01/28/2024 Feeling much better, oxygen per nasal cannula. Steroids, Lasix, oxygen for acute respiratory failure with hypoxia. Zosyn for pseudomonas urinary tract infection. Lasix for acute on chronic HFrEF. 01/29/2024 BiPAP overnight, BiPAP at night and naps Cipro po pseudomonas UTI. Pantoprazole 40mg bid x 8 weeks, Carafate x 6 weeks for gastric ulcer noted on Dr. Friend EGD. 01/29/2024 Admit to TCU with debility, here for rehabilitation, strengthening, prior to right renal calculus lithotripsy. [facility] Medical History (Updated 01/29/24 @ 14:[address] Sampson Myles MD) Non-ST elevation NH (NSTEMI) GI bleed COVID-19 Acute NH Atherosclerosis of coronary artery of [place] heart without angina pectoris Staghorn renal calculus Urinary tract infection Gross hematuria Acute dehydration Skin tag History of left breast cancer RIGHT ANKLE FRACTURE REPAIR EXCISION STOMACH TUMOR Parkinson disease Mixed connective tissue disease Polyarthropathy Lupus Hypertension COPD (chronic obstructive pulmonary disease) Asthma Arthritis Pulmonary nodules/lesions, multiple Tobacco use disorder Breast pain Osteopenia Malignant neoplasm of central portion of female breast Low bone density Home Medications ?Medication ?Instructions ?Recorded ?Last Taken ?Type tramadol 50 mg tablet 50 mg PO DAILY PRN Pain Score 1-10 03/02/14 01/28/24 History oxybutynin chloride 5 mg tablet 5 - 10 mg PO BID pain 01/25/20 01/12/24 History cholecalciferol (vitamin D3) 50 2,000 unit PO DAILY deficiency 07/27/20 01/22/24 History mcg (2,000 unit) capsule hydroxychloroquine 200 mg tablet 200 mg PO BIDCM arthritis 07/27/20 01/12/24 History aspirin 81 mg chewable tablet 81 mg PO DAILYCM Heart #0 tabs 06/06/23 01/22/24 Rx budesonide 160 mcg-glycopyr 9 2 inh inhalation BID breathing 07/05/23 01/12/24 Rx mcg-formot 4.8 mcg/actuation HFA #10.7 grams inhaler (Breztri Aerosphere) atorvastatin 40 mg tablet 40 mg PO QHS cholesterol #30 tabs 01/07/24 01/15/24 Rx carvedilol 6.25 mg tablet 6.25 mg PO BID blood pressure #60 01/07/24 01/22/24 Rx tabs lisinopril 10 mg tablet 10 mg PO DAILY blood presure #30 01/07/24 01/22/24 Rx tabs ciprofloxacin HCl 500 mg tablet 500 mg PO BID Infection #14 tabs 01/24/24 Unknown Rx (Cipro) acetaminophen 325 mg tablet 650 mg (2 x 325 mg) PO Q6H PRN PRN 01/29/24 Unknown Rx Pain Score 1-10 #0 tabs clopidogrel 75 mg tablet 75 mg PO DAILY Anticoagulant #0 01/29/24 Unknown Rx tabs docusate sodium 100 mg capsule 200 mg (2 x 100 mg) PO BID 01/29/24 Unknown Rx Constipation #0 caps ipratropium 0.5 mg-albuterol 3 mg 3 ml inhalation Q6HWA.RT Shortness 01/29/24 Unknown Rx (2.5 mg base)/3 mL nebulization of breath #0 mL soln pantoprazole 40 mg tablet,delayed 40 mg PO BID Gastric Reflux #1 TAB 01/29/24 Unknown Rx release prednisone 20 mg tablet 40 mg (2 x 20 mg) PO BREAKFAST 01/29/24 Unknown Rx Inflammation #1 TAB sucralfate 1 gram tablet 1 g PO 1HR_ACHS Gastric reflux #1 01/29/24 Unknown Rx TAB Allergy/AdvReac Type Severity Reaction Status Date / Time bromide salts (bromide) AdvReac Hives Verified 01/22/24 13:12 strawberry AdvReac Hives Verified 01/22/24 13:12 Family History Mother Arthritis Diabetes Hypertension Osteoporosis Father Arthritis Heart disease Sister Arthritis Breast cancer Diabetes Hypertension Son Diabetes Other Alzheimer disease Anemia Hyperlipidemia Thyroid disorder Surgical History (Updated 01/29/24 @ 14:[address] Sampson Myles MD) History of ureter stent History of lithotripsy History of coronary artery stent placement (01/07/24) History of lung biopsy History of tubal ligation History of lumpectomy Hx of cholecystectomy Social History household members: spouse Smoking Status: Former smoker alcohol intake: never substance use type: does not use ROS Constitutional Constitutional: Reports weakness; Denies chills, fever(s) or weight gain ENT HEENT: Denies headache(s), nasal congestion or nasal discharge Cardiovascular Cardiovascular: Denies chest pain or palpitations Respiratory/Chest Respiratory/Chest: Denies cough, excessive phlegm production or shortness of breath with exertion Gastrointestinal Gastrointestinal: Denies abdominal pain, nausea or vomiting Genitourinary Genitourinary: Reports hematuria; Denies dysuria Musculoskeletal Musculoskeletal: Denies joint pain or joint swelling Integumentary Integumentary: Denies rash or wounds Neurologic Neurologic: Denies focal weakness, numbness or tingling Psychiatric Psychiatric: Denies anxiety, auditory hallucinations, depression, homicidal ideation or suicidal ideation Vital Signs Vital Signs Vital Signs: 01/29/24 12:54 01/29/24 14:03 Temperature 96.6 F L Temperature Source Temporal Pulse Rate 72 96 Respiratory Rate 20 H 27 H Respiratory Pattern Tachypnea Blood Pressure 170/69 H Blood Pressure Mean 102 Blood Pressure Source Monitor Blood Pressure Position Supine Blood Pressure Location Right Arm Pulse Ox 99 98 Oxygen Delivery Method Nasal Cannula Nasal Cannula Oxygen Flow Rate (L/min) 3 3 Fraction of Inspired Oxygen (FIO2) 30 Weight Weight: 80.739 kg Body Mass Index (BMI) 31.5 Physical Exam Const alert General Appearance: cooperative HEENT normocephalic Eyes PERRL and EOMs intact bilaterally Neck supple, no JVD and no carotid bruits Resp normal respiratory effort, normal air movement and clear to auscultation bilaterally Cardio regular rate and regular rhythm GI normal to inspection, nondistended, normoactive bowel sounds, non-tender and non-distended Extremity normal capillary refill General Extremity: Negative for edema Skin no rashes or lesions noted General Skin Exam: no breakdown Psych affect normal Appearance: appropriate Assessment & Plan Assessment/Plan (1) Debility: (2) Hematuria: (3) Kidney stone on right side: (4) Urinary tract infection: QUALIFIERS: Hematuria presence: with hematuria Urinary tract infection type: acute cystitis Qualified Code(s): N30.01 - Acute cystitis with hematuria (5) Acute respiratory failure with hypoxia: (6) COPD exacerbation: (7) Acute HFrEF (heart failure with reduced ejection fraction): (8) Status post non-ST elevation myocardial infarction (NSTEMI): (9) Coronary artery disease: (10) Hyperlipidemia, unspecified: (11) Mixed connective tissue disease: (12) Gastric ulcer: PLAN: Plan 73 year old female with below past medical history hospitalized for hematuria 2/2 right staghorn calculus, underwent partial lithotripsy, right ureteral stent placement, complicated by acute respiratory failure with hypoxia 2/2 copd exacerbation, acute hfref, pseudomonas urinary tract infection, admitted to TCU with debility, here for rehabilitation, strengthening, prior to repeat right lithotripsy. * Debility - PT/OT. * Pain - Tylenol 1000mg q6 prn pain (1-5), Oxycodone 10mg q4 prn pain (6-10). * Bowel - senna/colace 2 tablets bid, Magnesium citrate 300mL po daily prn. * Adult immunization - Administer pneumonia vaccine, covid vaccine, flu vaccine as appropriate. * DVT prophylaxis - Hold, on dual antiplatelet therapy. * Coronary artery disease - Coreg 6.25mg bid, Lisinopril 10mg daily, Plavix 75mg daily, Aspirin 81mg daily. * Hyperlipidemia - Atorvastatin 40mg qhs. * Vitamin D deficiency - D3 50mcg daily. * MCTD - Plaquenil 200mg bidcm. * COPD - Duoneb 3ML q6 wart, Prednisone 40mg taper, BiPAP when asleep. * Gastric ulcer - Pantoprazole 40mg bid thru 03/18/2024, then 40mg daily, Sucralfate 1gm qachs thru 03/11/2024. * Pseudomonas UTI - Zosyn 3.375gm iv q8 thru 02/04/2024. * Right kidney stone - Consult Dr. Lange to finish lithotripsy, stent removal, when resident feeling stronger.
[2024-01-29] MEDS: oxyCODONE 5 MG Tablet 10 MG PO (15:54)
[2024-01-29] MEDS: Sucralfate 1 GM Tablet PO ×2 (15:54→21:19)
[2024-01-29] MEDS: Hydroxychloroquine 200 MG Tablet PO (15:54)
--- NOTE | 2024-01-29 19:13 | CPS ---
[1853] Pt. is on AVAPS settings with V60. Tidal Uadmvv=336, RR=12, PEEP=8, maxPressure=30, minPressure=8 with 30% FiO2. Pt. is on continuous pulse oximeter while wearing V60 in TCU.
[2024-01-29] MEDS: Carvedilol 6.25 MG Tablet PO (21:20)
[2024-01-29] MEDS: Atorvastatin Calcium 40 MG Tablet PO (21:21)
[2024-01-29] MEDS: Pantoprazole Sodium 40 MG Tablet PO (21:21)
[2024-01-29] MEDS: Menthol/Lanolin/Calamine/Znox 113 GM Tube 1 APPLIC TOPICAL (21:22)
[2024-01-29] MEDS: Nystatin Powder 15gm Bottle 1 APPLIC TOPICAL (21:22)
[2024-01-29] MEDS: Senna/Docusate Sodium 1 Tablet 2 TABLET PO (21:23)
--- NOTE | 2024-01-29 21:55 | CPS ---
[2123] Pt.'s pulse oximeter sensor changed at this time due to poor reading on pt.'s finger for oxygenation saturations.
[2024-01-29] MEDS: 0.9% Normal Saline (500mL Bag) 500 ML 15 ML IV (22:26)
[2024-01-29] MEDS: 0.9% Saline Lock 10 ML Syringe IV (22:27)
[2024-01-29] MEDS: Piperacil/Tazobactam 3.375 GM in 0.9% Normal Saline (50mL MB+) 50 ML IV (22:33)
--- NOTE | 2024-01-29 22:52 | CPS ---
[2247] AVAPS NIV settings: Tidal Hxjhnz=655, RR=12, PEEP=8, maxPressure=30, minPressure=12 with 30% FiO2.
[2024-01-30] VITALS (10 sets, daily range): BP systolic 117–153; BP diastolic 51–76; PULSE 61–82; RESP 12–25; TEMP 36.2; O2SAT 97–99; BMI 31.6
[2024-01-30] MEDS: Sucralfate 1 GM Tablet PO ×4 (05:26→22:18)
[2024-01-30] MEDS: Menthol/Lanolin/Calamine/Znox 113 GM Tube 1 APPLIC TOPICAL ×3 (05:31→19:31)
[2024-01-30] MEDS: Nystatin Powder 15gm Bottle 1 APPLIC TOPICAL ×2 (05:31→19:31)
[2024-01-30] MEDS: 0.9% Saline Lock 10 ML Syringe IV (06:32)
[2024-01-30] MEDS: Piperacil/Tazobactam 3.375 GM in 0.9% Normal Saline (50mL MB+) 50 ML IV ×3 (06:33→22:56)
[2024-01-30 06:51] LABS: Absolute Lymphocyte Count 1.86 X10^3/uL (0.83-4.51); Absolute Neutrophil Count 8.5 X10^3/uL (2.0-7.7); Eosinophil# 0.03 X10^3/uL; Eosinophils% 0.3 % (0-5); Hematocrit 26.8 % (37-47); Hemoglobin 8.5 g/dL (12.0-15.0); Lymphocyte # 1.86 X10^3/ul (0.83-4.51); Lymphocyte % 16.5 % (19-41); Mean Corp Hgb Conc 31.7 g/dL (32-36); Mean Corpuscular Hgb 30.9 pg (27.0-32.0); Mean Corpuscular Volume 97.5 fL (81-99); Mean Platelet Vol. 9.9 fl (6.2-12.0); Monocyte# 0.81 X10^3/uL; Monocyte% 7.2 % (0-10); NRBC Flagged by Analyzer 0 % (0-5); Neutrophil # 8.53 X10^3/uL (2.7-7.7); Neutrophil % 75.6 % (47-70); Platelet Count 137 K/mm3 (150-450); RBC Distribution Width CV 16.4 % (11.6-14.6); RBC Distribution Width SD 58.2 fl (35.1-43.9); Red Blood Count 2.75 M/mm3 (4.2-5.4); White Blood Count 11.3 K/mm3 (4.4-11.0)
[2024-01-30] MEDS: Ipratropium/Albuterol Sulfate 3 ML AMPUL.NEB INHALATION ×3 (07:55→20:06)
[2024-01-30] MEDS: Clopidogrel Bisulfate 75 MG Tablet PO (09:20)
[2024-01-30] MEDS: Cholecalciferol (VIT D3) 25 MCG TABLET (1,000 UNITS) 50 MCG PO (09:20)
[2024-01-30] MEDS: Pantoprazole Sodium 40 MG Tablet PO ×2 (09:20→22:18)
[2024-01-30] MEDS: Hydroxychloroquine 200 MG Tablet PO ×2 (09:20→17:02)
[2024-01-30] MEDS: Carvedilol 6.25 MG Tablet PO ×2 (09:20→22:18)
[2024-01-30] MEDS: Aspirin 81 MG TAB.CHEW PO (09:20)
[2024-01-30] MEDS: predniSONE 20 MG Tablet 40 MG PO (09:20)
--- NOTE | 2024-01-30 10:06 | CASEMGMT ---
Social Work SW revisited pt after readmission. Per acute MD, pt will need to DC home on a bipap or NIV. Pt is aware. SW to coordinate at time of DC. Educated [facility] insurance with [employer] 02/04. Pt's goal is to return home with . SW will continue to follow. ESTEBAN BaileyW
[2024-01-30] MEDS: Iron Polysaccharide Complex 150 MG CAPSULE PO (10:32)
[2024-01-30] MEDS: Ascorbic Acid 500 MG Tablet PO (10:32)
[2024-01-30] MEDS: Tuberculin,Purif.prot.deriv. 50 TU/ML Vial 0.1 ML ID (10:33)
--- NOTE | 2024-01-30 10:39 | NURSING ---
Left VM with Dr. Lange's office about consult, await return call.
[2024-01-30] MEDS: Lisinopril 10 MG Tablet PO (11:08)
--- NOTE | 2024-01-30 11:13 | NURSING ---
Patient stating inner arm hurting near IV site. Had midline placed last night for Zosyn administration. Does not look infiltrated at this time. will continue to monitor.
[2024-01-30] MEDS: Acetaminophen 500 MG Tablet 1000 MG PO (11:54)
--- NOTE | 2024-01-30 12:18 | NURSING ---
Patient continues to have blood in urine when voiding. Denies any pain.
[2024-01-30 14:36] LABS: Anion Gap 2 (5-15); BUN 53 mg/dL (7-18); BUN/Creat Ratio 42.7 RATIO (10-20); Calcium,Total 8.8 mg/dL (8.5-10.1); Chloride 104 mmol/L (98-107); Creatinine, Serum 1.24 mg/dL (0.55-1.02); EST Glomerular Filtration Rate 45 mL/min (>60); Est Glom Filt Rate - Afr Amer 55 mL/min (>60); Estimated Creatinine Clearance 40.47 ml/min; Glucose 149 mg/dL (74-106); Potassium 3.6 mmol/L (3.5-5.1); Sodium Level 140 mmol/L (136-145)
--- NOTE | 2024-01-30 14:53 | NURSING ---
Patient very tired today, using BiPap frequently today, stating she can't breathe. SpO2 readings 95-99%. Continue to encourage purse lip breathing. Continues on Zosyn IV for UTI. Midline to right arm continues to bleed. Communication left for Dr. Myles.
[2024-01-30] MEDS: Ensure Clear 120 ML Liquid PO ×2 (17:02→22:28)
--- NOTE | 2024-01-30 17:52 | NURSING ---
Talked with patient's daughter regarding patient's status. Patient very tired today, used BiPap frequently today. Discussed code status with daughter, who will discuss with her father. Patient is currently Full code. Family appreciative of update.
--- NOTE | 2024-01-30 17:54 | NURSING ---
New orders received to d/c Prednisone, start Solumedrol IV 125mg, 1st dose now. Also received orders for Ativan PRN, discontinue fluid restriction. Family updated.
[2024-01-30] MEDS: MethylPREDNISolone 125 MG/2 ML Vial IV (19:30)
[2024-01-30] MEDS: Atorvastatin Calcium 40 MG Tablet PO (22:18)
[2024-01-30] MEDS: 0.9 % NaCl (Sterile) Posiflush 10 mL IV (23:03)
[2024-01-31] VITALS (7 sets, daily range): BP systolic 151–165; BP diastolic 76–82; PULSE 68–78; RESP 12–28; TEMP 36.2; O2SAT 94–98; BMI 31.8
[2024-01-31] MEDS: Ipratropium/Albuterol Sulfate 3 ML AMPUL.NEB INHALATION ×4 (03:30→19:29)
[2024-01-31] MEDS: Ensure Clear 120 ML Liquid PO ×3 (05:52→22:41)
[2024-01-31] MEDS: MethylPREDNISolone 125 MG/2 ML Vial IV ×3 (05:52→22:40)
[2024-01-31] MEDS: 0.9% Saline Lock 10 ML Syringe IV ×3 (05:53→22:40)
[2024-01-31] MEDS: Menthol/Lanolin/Calamine/Znox 113 GM Tube 1 APPLIC TOPICAL ×3 (05:53→22:41)
[2024-01-31] MEDS: Nystatin Powder 15gm Bottle 1 APPLIC TOPICAL ×2 (05:54→22:41)
[2024-01-31] MEDS: Sucralfate 1 GM Tablet PO ×4 (06:02→22:41)
[2024-01-31] MEDS: Piperacil/Tazobactam 3.375 GM in 0.9% Normal Saline (50mL MB+) 50 ML IV ×3 (06:07→23:47)
[2024-01-31 06:08] LABS: Hemoglobin 7.8 g/dL (12.0-15.0)
--- NOTE | 2024-01-31 08:01 | NURSING ---
dr michaels aware of hgb 7.5, pt not sure if she wants any more blood transfusions, wants to speak with family. dr michaels updated, will speak to her later this evening.
[2024-01-31] MEDS: Aspirin 81 MG TAB.CHEW PO (08:24)
[2024-01-31] MEDS: Carvedilol 6.25 MG Tablet PO ×2 (08:25→22:41)
[2024-01-31] MEDS: Cholecalciferol (VIT D3) 25 MCG TABLET (1,000 UNITS) 50 MCG PO (08:25)
[2024-01-31] MEDS: Hydroxychloroquine 200 MG Tablet PO ×2 (08:25→17:06)
[2024-01-31] MEDS: Iron Polysaccharide Complex 150 MG CAPSULE PO (08:26)
[2024-01-31] MEDS: Pantoprazole Sodium 40 MG Tablet PO ×2 (08:26→22:40)
[2024-01-31] MEDS: Clopidogrel Bisulfate 75 MG Tablet PO (08:26)
[2024-01-31] MEDS: Lisinopril 10 MG Tablet PO (08:27)
[2024-01-31] MEDS: Ascorbic Acid 500 MG Tablet PO (08:27)
--- NOTE | 2024-01-31 08:48 | NS ---
MST score = 6
--- NOTE | 2024-01-31 09:44 | NURSING ---
[employer] Shift Lead Note; Activity Asset: Shy Winston has returned to TCU and remains independent in her choice of daily activities. While on TCU she will watch tv, read, work on word puzzles, have visit w/family, friends and welcomes visits with the receptionist scheduler and therapy dog. She has a smartphone she uses for texting, talking and games. Staff will encourage group activities, remind her of weekly activities and respect her right to say no.
[2024-01-31] MEDS: 0.9 % NaCl (Sterile) Posiflush 10 mL IV (14:01)
[2024-01-31] MEDS: TRANEXAMIC ACID 1,000 MG in 0.9% Normal Saline (100mL Bag) 100 ML 440 MG IV ×2 (14:46→22:59)
--- NOTE | 2024-01-31 15:00 | NURSING ---
Addendum entered by Sandra Love 01/31/24 18:18: coban placed around picc CHG dressing with an ABD. Original Note: family and pt ok with pt getting blood d/t anemia, secondary to hematuria, dr michaels ordered 1 unit blood. infusion center aware, faxed order. daughter concerned, does not want pt to get blood on MS3, RN sports equipment supervisor notified. daughter updated by battery charger tester. Tranxemic acid infusing at this time for hematuria. pt resting in chair, daughter at bedside.
--- NOTE | 2024-01-31 15:40 | CHAPLAIN ---
Type of Pastoral Visit ___ Initial Visit ___ Follow-up Visit ___ On-call Visit ___ General Patient Visit ___ Spiritual Assessment ___ Family Conference ___ Bereavement ___ Rapid Response ___ Code Blue ___ Other (describe below) Pastoral Care Referral From ___ Patient ___ Family ___ Nurse ___ Physician ___ [employer] Ebs Developer ___ Film Processor ___ Other (describe below) Sacrament/Intervention ___ Active listening ___ Anointing ___ Latter-Day ___ Bereavement ___ Communion ___ Charity exploration ___ ___ Life review ___ Prayer ___ Reconciliation ___ Sacrament of Sick ___ Supportive presence ___ Wedding ___ Other (describe below) Pastoral Comments patient was receiving patient care at time of attempted visit
[2024-01-31] MEDS: LORazepam 2 MG/ML Bottle 1 MG SL (16:10)
[2024-01-31 17:27] LABS: Bedside Glucose 354 mg/dL (74-106)
--- NOTE | 2024-01-31 18:15 | NURSING ---
pt picc line insertion site bleeding at times, reinforced for now, will change dressing when IV zosyn done. pt will get another dose of IV tranexamic acid which should help. good blood return on line. was able to flush and obtain blood draw for blood transfusion without issues
--- NOTE | 2024-01-31 18:58 | NURSING ---
Dr. Myles notified of BS of 354 new order for lispro
[2024-01-31] MEDS: Insulin Lispro 100 UNIT/ML INSULN.PEN SC (19:27)
[2024-01-31] MEDS: Atorvastatin Calcium 40 MG Tablet PO (22:41)
[2024-02-01] VITALS (17 sets, daily range): BP systolic 136–175; BP diastolic 61–98; PULSE 55–75; RESP 12–32; TEMP 36.1–36.6; O2SAT 91–100; BMI 32.3
[2024-02-01] MEDS: Ipratropium/Albuterol Sulfate 3 ML AMPUL.NEB INHALATION ×4 (04:15→19:17)
[2024-02-01] MEDS: 0.9% Saline Lock 10 ML Syringe IV ×6 (05:25→21:46)
[2024-02-01] MEDS: TRANEXAMIC ACID 1,000 MG in 0.9% Normal Saline (100mL Bag) 100 ML 440 MG IV ×3 (05:26→23:55)
[2024-02-01] MEDS: MethylPREDNISolone 125 MG/2 ML Vial IV ×3 (05:50→23:55)
[2024-02-01] MEDS: Piperacil/Tazobactam 3.375 GM in 0.9% Normal Saline (50mL MB+) 50 ML IV ×3 (05:56→21:46)
[2024-02-01] MEDS: Menthol/Lanolin/Calamine/Znox 113 GM Tube 1 APPLIC TOPICAL ×3 (06:01→22:14)
[2024-02-01] MEDS: Nystatin Powder 15gm Bottle 1 APPLIC TOPICAL ×2 (06:02→22:14)
[2024-02-01] MEDS: Acetaminophen 500 MG Tablet 1000 MG PO (06:28)
[2024-02-01] MEDS: Sucralfate 1 GM Tablet PO ×4 (06:28→22:14)
--- NOTE | 2024-02-01 06:31 | NURSING ---
Addendum entered by Isa Woodruff 02/01/24 07:01: Helen contacts this nurse via telephone, states patient is agreeable for PICC line placement. Helen requests to be contacted when time provided for blood transfusion so she can accompany patient during transfusion Addendum entered by Isa Woodruff 02/01/24 06:53: AccessRN contacted for PICC placement, spoke with Marielena. Per Marielena AccessRN will call after 0900 for ETA for PICC placement. Pt. was notified of need for PICC placement and refusing at this time, states daughter to decide. This nure contcted daughter Helen via telephone, notified dtr of need for IV access and need for midline to be replaced due to contined bleeding from site. Dtr Helen agrees that PICC needs to be placed and states will contact patient via her cellphone to discuss with pt. further. personal cell phone provided to patient and updated patient that daughter would like for patient to accept PICC placement as ordered by Dr. Myles. Patient states will agree to speak with daughter via telephone to discuss further. Patient is Alert and oriented x3. supervisor home energy consultant contacted and requested assist with IV placement until accessRN is able to place PICC, per clubhouse attendant RN to be sent with ultrasound to assist with IV assess so midline can be removed. Original Note: Midline dressing continues to soil dressing with moderate amount of red drainage, dressing changed and continues to be soiled. Dr. Myles contacted via telephone and notified of need for IV access due to several IV medication, needed blood transfusion and moderate red drainage despite tranexamic acid. Per Dr. Myles replace the midline with a PICC line, order repeated back.
[2024-02-01 06:44] LABS: Bedside Glucose 312 mg/dL (74-106)
[2024-02-01] MEDS: Insulin Lispro 100 UNIT/ML INSULN.PEN SC ×2 (08:10→13:03)
[2024-02-01] MEDS: Pantoprazole Sodium 40 MG Tablet PO ×2 (08:11→22:15)
[2024-02-01] MEDS: Lisinopril 10 MG Tablet PO (08:11)
[2024-02-01] MEDS: Clopidogrel Bisulfate 75 MG Tablet PO (08:11)
[2024-02-01] MEDS: Carvedilol 6.25 MG Tablet PO ×2 (08:11→18:37)
[2024-02-01] MEDS: Ascorbic Acid 500 MG Tablet PO (08:11)
[2024-02-01] MEDS: Hydroxychloroquine 200 MG Tablet PO ×2 (08:11→18:37)
[2024-02-01] MEDS: Cholecalciferol (VIT D3) 25 MCG TABLET (1,000 UNITS) 50 MCG PO (08:11)
[2024-02-01] MEDS: Aspirin 81 MG TAB.CHEW PO (08:11)
[2024-02-01] MEDS: Iron Polysaccharide Complex 150 MG CAPSULE PO (08:11)
--- NOTE | 2024-02-01 08:32 | NURSING ---
Pt off unit for Blood Transfusion [id number]. Called report to nurse.
[2024-02-01] MEDS: LORazepam 2 MG/ML Bottle 1 MG SL (12:51)
--- NOTE | 2024-02-01 13:16 | NURSING ---
Spoke with Pharmacist Becca regarding 1400 medications. Pt is On PCU for blood transfusion and is expected to return to TCU around 1600. Per Pharmacy okay to give Tranexamic Acid, and Solu Medrol @ 1600and change Zosyn to x1 dose to be infused in 30min and give at 1600. Dr. Myles updated.
[2024-02-01] MEDS: Furosemide 20 MG/2 ML VIAL IV (14:56)
[2024-02-01 15:38] LABS: Bedside Glucose 393 mg/dL (74-106)
--- NOTE | 2024-02-01 16:30 | NURSING ---
Dr. Myles notified of BS 405. N.O. for Humalog 10 units TID and Glargine 30 units QHS.
[2024-02-01 16:54] LABS: Bedside Glucose 403 mg/dL (74-106)
[2024-02-01] MEDS: Insulin Lispro 100 UNIT/ML INSULN.PEN 10 UNIT SC (18:19)
--- NOTE | 2024-02-01 18:35 | NURSING ---
Pt BP 176/[address] Myles notified N.O. to give 2200 dose of Coreg now.
--- NOTE | 2024-02-01 21:14 | PHA.CONS_ITS ---
Documented by User: Vonda Carvajal 02/01/24 22:23 TCU RX Drug Regimen Review Subjective/Objective Subjective/Objective: Subjective: TCU Admission. 73 YOF TCU resident presented to ER. Hospitalized for hematuria 2/2 right staghorn calculus, underwent partial lithotripsy, right ureteral stent placement, complicated by acute respiratory failure with hypoxia 2/2 copd exacerbation, acute hfref, pseudomonas urinary tract infection. Admitted to TCU with debility for strengthening and rehabilitation. Objective: Allergies bromide salts (bromide) Adverse Reaction (Verified 01/22/24 13:12) Hives strawberry Adverse Reaction (Verified 01/22/24 13:12) Hives frozen strawberries Current Medications Generic Name Dose Route Start Last Admin Trade Name Freq PRN Reason Stop Dose Admin Acetaminophen 1,000 mg 01/29/24 15:20 02/01/24 06:28 Acetaminophen 500 Mg Tablet PO 1,000 mg Q6H PRN PRN Administration Pain Score 1-5 Albuterol/Ipratropium 3 ml 01/29/24 13:15 02/01/24 13:39 Ipratropium/Albuterol Sulfate 3 Ml Ampul.Neb INHALATION 3 ml Q6HWA.RT [facility] Administration Ascorbic Acid 500 mg 01/30/24 10:00 02/01/24 08:11 Ascorbic Acid 500 Mg Tablet PO 500 mg 1000 [facility] Administration Aspirin 81 mg 01/30/24 08:00 02/01/24 08:11 Aspirin 81 Mg Tab.Chew PO 81 mg DAILYCM [facility] Administration Atorvastatin Calcium 40 mg 01/29/24 22:00 01/31/24 22:41 Atorvastatin Calcium 40 Mg Tablet PO 40 mg QHS [facility] Administration Calamine/Phenol 1 applic 01/29/24 22:00 02/01/24 16:52 Menthol/Lanolin/Calamine/Znox 113 Gm Tube TOPICAL 1 applic TID KERRI Administration Protocol Carvedilol 6.25 mg 01/29/24 22:00 02/01/24 18:37 Carvedilol 6.25 Mg Tablet PO 6.25 mg BID KERRI Administration Protocol Cholecalciferol 50 mcg 01/30/24 08:00 02/01/24 08:11 Cholecalciferol (Vit D3) 25 Mcg Tablet (1,000 Units) PO 50 mcg DAILYCM [facility] Administration Clopidogrel Bisulfate 75 mg 01/30/24 10:00 02/01/24 08:11 Clopidogrel Bisulfate 75 Mg Tablet PO 75 mg DAILY [facility] Administration Hydroxychloroquine Sulfate 200 mg 01/29/24 17:00 02/01/24 18:37 Hydroxychloroquine 200 Mg Tablet PO 200 mg BIDCM [facility] Administration Piperacillin Sod/Tazobactam 50 mls @ 12.5 mls/hr 01/29/24 14:15 02/01/24 13:15 Sod 3.375 gm/ Sodium Chloride IV 02/04/24 14:16 Not Given Q8 [facility] Sodium Chloride 500 mls @ 15 mls/hr 01/29/24 21:48 01/31/24 06:45 IV 0 mls/hr .[id number] PRN Infusion Saline Flush Tranexamic Acid 1,000 mg/ 110 mls @ 440 mls/hr 01/31/24 14:00 02/01/24 18:45 Sodium Chloride IV Infused Q8 [facility] Infusion Insulin Glargine 30 unit 02/01/24 22:00 Insulin Glargine-Yfgn 100 Unit/Ml Pen SC QHS [facility] Insulin Human Lispro 10 unit 02/01/24 17:15 02/01/24 18:19 Insulin Lispro 100 Unit/Ml Insuln.Pen SC 10 units TIDAC [facility] Administration Lisinopril 10 mg 01/30/24 10:00 02/01/24 08:11 Lisinopril 10 Mg Tablet PO 10 mg DAILY [facility] Administration Protocol Lorazepam 1 mg 01/30/24 17:22 02/01/24 12:51 Lorazepam 2 Mg/Ml Bottle SL 1 mg Q4H PRN PRN Administration ANXIETY/RESTLESSNESS/SLEEP Magnesium Citrate 300 ml 01/29/24 15:18 Magnesium Citrate 300 Ml PO DAILY PRN Constipation Methylprednisolone 125 mg 01/30/24 17:35 02/01/24 15:47 Methylprednisolone 125 Mg/2 Ml Vial IV 125 mg Q8 [facility] Administration Nutritional Formula (Lactose Free) 120 ml 01/30/24 17:00 02/01/24 18:24 Ensure Clear 120 Ml Liquid PO Not Given 4X/DAY [facility] Nystatin 1 applic 01/29/24 22:00 02/01/24 06:02 Nystatin Powder 15gm Bottle TOPICAL 1 applic 0600,2200 [facility] Administration Protocol Oxycodone HCl 10 mg 01/29/24 15:20 01/29/24 15:54 Oxycodone 5 Mg Tablet PO 10 mg Q4H PRN PRN Administration Pain Score 6-10 or Pre PT/OT Pantoprazole Sodium 40 mg 01/29/24 22:00 02/01/24 08:11 Pantoprazole Sodium 40 Mg Tablet PO 03/18/24 13:17 40 mg BID [facility] Administration Pantoprazole Sodium 40 mg 03/19/24 10:00 Pantoprazole Sodium 40 Mg Tablet PO DAILY [facility] Polysaccharide Iron Complex 150 mg 01/30/24 10:00 02/01/24 08:11 Iron Polysaccharide Complex 150 Mg Capsule PO 150 mg DAILY [facility] Administration Senna/Docusate Sodium 2 tablet 01/29/24 22:00 02/01/24 08:11 Senna/Docusate Sodium 1 Tablet PO Not Given BID [facility] Sodium Chloride 10 - 40 ml 01/29/24 15:31 01/30/24 23:03 0.9 % Nacl (Sterile) Posiflush 10 Ml IV 20 ml UD PRN Administration Port access or dressing change Sodium Chloride 10 - 40 ml 01/29/24 15:31 02/01/24 16:27 0.9% Saline Lock 10 Ml Syringe IV 10 ml UD PRN Administration Midline Flush Sodium Chloride 10 - 40 ml 01/30/24 12:16 01/31/24 14:01 0.9 % Nacl (Sterile) Posiflush 10 Ml IV 30 ml UD PRN Administration Port access or dressing change Sodium Chloride 10 - 40 ml 01/30/24 12:16 0.9% Saline Lock 10 Ml Syringe IV UD PRN Midline Flush Sodium Chloride 10 - 40 ml 02/01/24 11:52 0.9% Saline Lock 10 Ml Syringe IV UD PRN SALINE FLUSH Sucralfate 1 gm 01/29/24 16:00 02/01/24 16:17 Sucralfate 1 Gm Tablet PO 03/11/24 17:00 1 gm 1HR_ACHS [facility]ER[facility] Administration Tuberculin PPD 0.1 ml 02/06/24 10:00 Tuberculin,Purif.Prot.Deriv. 50 Tu/Ml Vial ID 02/06/24 10:01 X1 ONE Problem List Gastric ulcer (Acute) Status post non-ST elevation myocardial infarction (NSTEMI) (Acute) Acute HFrEF (heart failure with reduced ejection fraction) (Acute) Hematuria (Acute) Coronary artery disease (Acute) Kidney stone on right side (Acute) Mixed connective tissue disease (Acute) Hyperlipidemia, unspecified (Acute) Acute respiratory failure with hypoxia (Acute) Urinary tract infection (Acute) Debility (Acute) Vital Signs Temp Pulse Resp BP Pulse Ox O2 Del Method O2 Flow Rate 97 F L 57 L 16 173/73 H 100 Bi-pap 3 02/01/24 21:11 02/01/24 21:11 02/01/24 21:11 02/01/24 21:11 02/01/24 21:11 02/01/24 21:11 02/01/24 18:00 FiO2 30 02/01/24 17:55 Oxygen Flow Rate (L/min) 3 Oxygen Delivery Method Bi-pap Weight: 82.69 kg Body Mass Index (BMI) 32.3 Sodium 140 mmol/L (136-145) 01/30/24 06:30 Potassium 3.6 mmol/L (3.5-5.1) 01/30/24 06:30 Chloride 104 mmol/L (98-107) 01/30/24 06:30 Carbon Dioxide 34.0 mmol/L (21.0-32.0) H 01/30/24 06:30 Anion Gap 2 (5-15) L 01/30/24 06:30 BUN 53 mg/dL (7-18) H 01/30/24 06:30 Creatinine 1.24 mg/dL (0.55-1.02) H 01/30/24 06:30 Est GFR (MDRD) Af Amer 55 mL/min (>60) L 01/30/24 06:30 Est GFR (MDRD) Non-Af 45 mL/min (>60) L 01/30/24 06:30 BUN/Creatinine Ratio 42.7 RATIO (10-20) H 01/30/24 06:30 Glucose 149 mg/dL (74-106) H 01/30/24 06:30 Assessment/Plan: 1. Pain: acetaminophen 1000mg PO Q6H PRN pain 1-5 and oxycodone 10mg PO Q4H PRN pain 6-10. Resident has had 1 dose of oxycodone (pain score 6) and 2 doses of acetaminophen (pain score of 4-5) in the head. Please continue to monitor for increased pain, constipation, respiratory depression and PRN usage. 2. Bowel: senna/docusate 2T PO BID and magnesium citrate 300mL PO daily PRN constipation. Resident has not had any PRN doses. Please consider changing senna/docusate from scheduled to PRN as resident has refused 5/6 doses. Thanks. Last documented bowel movement 02/01/24. 3. Pseudomonas UTI: Zosyn 3.375gm IV Q8 thru 02/04/24. Please continue to monitor for S/S of infection, WBC (last 11.3K/mm3), renal function (CrCl 41 mL/min) and diarrhea. 4. CAD/NSTEMI/stent: carvedilol 6.25mg PO BID, lisinopril 10mg PO daily, neil pidogrel 75mg PO daily and aspirin 81mg PO daily. Please continue to monitor BP (last 173/73), HR (last 57), renal function, cough, potassium (last 3.6mmol/L), S/S of bleeding and hemoglobin (last 7.8g/dL). 5. COPD: Duoneb 3ml inhalation Q6HWA.RT and methylprednisolone 125mg IV Q8. Please continue to monitor HR, glucose (last 403mg/dL), S/S of infection, increased hunger, insomnia (lorazepam started), WBC (last 11.3K/mm3) and agitation. 6. Hyperlipidemia: atorvastatin 40mg PO QHS. Please continue to monitor lipid panel (last 01/07/24), LFTs (last 01/27/24 WNL) and muscle pain. 7. MCTD: hydroxychloroquine 200mg PO BIDCM. Please continue to monitor CBC, rash, weakness and changes in vision. 8. Gastric ulcer: pantoprazole 40mg PO BID thru 03/18/24 then daily thereafter and sucralfate 1gm PO 1HR_ACHS. Please continue to monitor for S/S of GERD, diarrhea (BEERs medication), upset stomach, gas, and magnesium. 9. Vitamin D deficiency: cholecalciferol 50mcg PO daily. Please continue to mo nitor vitamin D (last 01/20/24). Thanks. 10. Anemia secondary to hematuria: Ferrex 150mg PO DAILYCM, ascorbic acid 500mg PO daily and tranexamic acid 1gm IV Q8. Please continue to monitor for S/S of bleeding/VTE, constipation, hemoglobin, dark stools. 11. Blood glucose (resident on IV steroid): insulin glargine 30units SC QHS and insulin lispro 10units SC TIDAC. Started today. Please continue to monitor BG (last several 403, 312, 343), hemoglobin A1c (last 01/06/24) and S/S of hypoglycemia. Assessment/Plan for indications treated with psychotropic medications: 1. Anxiety/restlessness/sleep: lorazepam solution 1mg SL Q4H PRN anxiety/restlessness/sleep. Resident has had 2 doses so far. GDR not appropriate as this medication was just started. Please continue to monitor for PRN usage, excessive drowsiness, confusion, fall/fractures (BEERs medication) and dementia/delirium (BEERs medication). Medical chart and medication regimen reviewed. The following medication irregularities or issues were identified: 1. Senna/docusate 2T PO BID. Resident has not had any PRN doses. Please consider changing senna/docusate from scheduled to PRN as resident has refused 5/6 doses. Thanks. Date Date of Note:: 02/01/24 Documented by User: Dr. Sampson Myles MD 02/02/24 10:27 TCU RX Drug Regimen Review Provider Comments Provider responsibility Provider Comments to Recommendations by Pharmacy: Agree
[2024-02-01] MEDS: Insulin Glargine-YFGN 100 UNIT/ML Pen 30 UNIT SC (22:15)
[2024-02-01] MEDS: Atorvastatin Calcium 40 MG Tablet PO (22:15)
[2024-02-01] MEDS: Ensure Clear 120 ML Liquid PO (22:22)
[2024-02-01 22:47] LABS: Bedside Glucose 363 mg/dL (74-106)
[2024-02-02] VITALS (9 sets, daily range): BP systolic 143–218; BP diastolic 60–102; PULSE 60–82; RESP 12–30; TEMP 36.4–36.7; O2SAT 97–100
[2024-02-02] MEDS: 0.9% Saline Lock 10 ML Syringe IV ×6 (00:03→15:04)
[2024-02-02] MEDS: Piperacil/Tazobactam 3.375 GM in 0.9% Normal Saline (50mL MB+) 50 ML IV ×3 (05:35→21:47)
[2024-02-02] MEDS: Menthol/Lanolin/Calamine/Znox 113 GM Tube 1 APPLIC TOPICAL ×3 (05:42→21:40)
[2024-02-02] MEDS: Nystatin Powder 15gm Bottle 1 APPLIC TOPICAL ×2 (05:42→21:40)
[2024-02-02 05:43] LABS: Absolute Lymphocyte Count 0.23 X10^3/uL (0.83-4.51); Absolute Neutrophil Count 8.7 X10^3/uL (2.0-7.7); Basophil# 0.01 X10^3/uL; Basophil% 0.1 % (0-1); Hematocrit 25.8 % (37-47); Hemoglobin 8.5 g/dL (12.0-15.0); Lymphocyte # 0.23 X10^3/ul (0.83-4.51); Lymphocyte % 2.5 % (19-41); Mean Corp Hgb Conc 32.9 g/dL (32-36); Mean Corpuscular Hgb 30.9 pg (27.0-32.0); Mean Corpuscular Volume 93.8 fL (81-99); Mean Platelet Vol. 10.9 fl (6.2-12.0); Monocyte# 0.21 X10^3/uL; Monocyte% 2.3 % (0-10); NRBC Flagged by Analyzer 0 % (0-5); Neutrophil # 8.71 X10^3/uL (2.7-7.7); Neutrophil % 94.3 % (47-70); POSITIVE DIFFERENTIAL YES; Platelet Count 116 K/mm3 (150-450); RBC Distribution Width CV 15.9 % (11.6-14.6); RBC Distribution Width SD 54.3 fl (35.1-43.9); Red Blood Count 2.75 M/mm3 (4.2-5.4); White Blood Count 9.2 K/mm3 (4.4-11.0)
[2024-02-02] MEDS: Ensure Clear 120 ML Liquid PO ×3 (05:44→21:39)
[2024-02-02] MEDS: Sucralfate 1 GM Tablet PO ×3 (05:48→21:40)
[2024-02-02 06:41] LABS: Bedside Glucose 292 mg/dL (74-106)
[2024-02-02 06:46] LABS: Anion Gap 5 (5-15); BUN 44 mg/dL (7-18); BUN/Creat Ratio 36.1 RATIO (10-20); Calcium,Total 8.5 mg/dL (8.5-10.1); Chloride 105 mmol/L (98-107); Creatinine, Serum 1.22 mg/dL (0.55-1.02); EST Glomerular Filtration Rate 46 mL/min (>60); Est Glom Filt Rate - Afr Amer 56 mL/min (>60); Estimated Creatinine Clearance 41.83 ml/min; Glucose 306 mg/dL (74-106); Potassium 2.6 mmol/L (3.5-5.1); Sodium Level 141 mmol/L (136-145)
[2024-02-02] MEDS: MethylPREDNISolone 125 MG/2 ML Vial IV ×2 (06:53→21:46)
[2024-02-02] MEDS: TRANEXAMIC ACID 1,000 MG in 0.9% Normal Saline (100mL Bag) 100 ML 440 MG IV ×2 (06:53→15:04)
[2024-02-02] MEDS: Potassium Chloride Oral Tablet 20 MEQ 60 MEQ PO (07:14)
--- NOTE | 2024-02-02 07:20 | NURSING ---
0650; K+ 2.6. Notified Dr. Myles. Orders received.
[2024-02-02] MEDS: Aspirin 81 MG TAB.CHEW PO (07:51)
[2024-02-02] MEDS: Cholecalciferol (VIT D3) 25 MCG TABLET (1,000 UNITS) 50 MCG PO (07:51)
[2024-02-02] MEDS: Hydroxychloroquine 200 MG Tablet PO ×2 (07:51→17:37)
[2024-02-02] MEDS: Insulin Lispro 100 UNIT/ML INSULN.PEN 10 UNIT SC ×3 (07:53→21:43)
[2024-02-02] MEDS: Ipratropium/Albuterol Sulfate 3 ML AMPUL.NEB INHALATION ×2 (08:00→19:05)
--- NOTE | 2024-02-02 08:30 | NURSING ---
Pt requiring BiPAP use at all times and lethargic. Dr. Mylse updated on pt N.O. To send pt to [facility] updated.
[2024-02-02] MEDS: 0.9 % NaCl (Sterile) Posiflush 10 mL IV ×2 (14:48→21:44)
[2024-02-02] MEDS: cloNIDine HCl 0.1 MG Tablet PO ×2 (15:22→17:29)
--- NOTE | 2024-02-02 15:26 | NURSING ---
Pt returned from ED Bp 218/92 Pulse 82 SpO2 100% [address] Myles updated N.O. for Clonidine 0.1mg x1, hold Solu medrol and recheck BP in 1 hour. Order read back. Family in room and updated.
[2024-02-02 16:33] LABS: Bedside Glucose 325 mg/dL (74-106)
--- NOTE | 2024-02-02 16:41 | NURSING ---
pt BP rechecked RLE 198/90 LLE 210/[address] Myles updated N.O. for Losartan 100mg x1 and Clonidine 0.1mg x1. Order read back.
[2024-02-02] MEDS: Losartan Potassium 100 MG Tablet PO (17:29)
[2024-02-02] MEDS: Potassium Chloride Oral Tablet 20 MEQ PO (17:37)
--- NOTE | 2024-02-02 18:03 | NURSING ---
Pt had moderate amount of blood on bed and gown bleeding noted to be coming from midline. Dr. Myles updated N.O. to remove midline. Midline removed pressure and surgie foam applied. After bleeding stopped applied a pressure dressing. Will continue to monitor.
[2024-02-02 21:18] LABS: Bedside Glucose 404 mg/dL (74-106)
--- NOTE | 2024-02-02 21:31 | NURSING ---
Spoke w/ Dr. Myles via phone to update on blood sugar of 404 and decreased pedal and posterior tibial pulse at +1 to RLE. Affected extremity is slightly larger than LLE. Toes and foot to RLE area slightly cool to touch. Toes to LLE are warm and pulses are +2. New order received and read back to dc TXA and administer Lispro 10 units x 1 dose. Will continue to monitor.
[2024-02-02] MEDS: Pantoprazole Sodium 40 MG Tablet PO (21:40)
[2024-02-02] MEDS: Atorvastatin Calcium 40 MG Tablet PO (21:41)
[2024-02-02] MEDS: Carvedilol 6.25 MG Tablet PO (21:41)
[2024-02-02] MEDS: Insulin Glargine-YFGN 100 UNIT/ML Pen 45 UNIT SC (21:42)
[2024-02-03] VITALS (10 sets, daily range): BP systolic 144–206; BP diastolic 58–85; PULSE 61–78; RESP 12–22; TEMP 36.6; O2SAT 97–100; BMI 32.9
[2024-02-03] MEDS: LORazepam 2 MG/ML Bottle 1 MG SL (01:07)
--- NOTE | 2024-02-03 05:02 | NURSING ---
No urine noted in canister. Incontinent of a large amount of dark, loose stool. Bladder scan for 235 ml. Denies any abdominal pain when asked. Placed back on bedpan after incontinence care completed per three staff. Will continue to monitor.
--- NOTE | 2024-02-03 05:04 | NURSING ---
BiPAP w/ O3 bleed-in at 3 lpm intermittently during the night. 2204: BiPAP w/ O2 bleed-in at 3 lpm applied on 02/01. 2340: Removed BiPAP and nasal cannula applied at 3 lpm. 0110: BiPAP w/ 3 lpm bleed-in reapplied. Ativan Intensol administered at this time for anxiety and to promote sleep. 0440: BiPAP removed and nasal cannula reapplied at 3 lpm. In no acute distress during each transition noted above. Will continue to monitor.
[2024-02-03 06:09] LABS: Bedside Glucose 225 mg/dL (74-106)
[2024-02-03] MEDS: Nystatin Powder 15gm Bottle 1 APPLIC TOPICAL ×2 (06:44→22:29)
[2024-02-03] MEDS: Menthol/Lanolin/Calamine/Znox 113 GM Tube 1 APPLIC TOPICAL ×3 (06:44→22:30)
[2024-02-03] MEDS: MethylPREDNISolone 125 MG/2 ML Vial IV ×3 (06:45→22:28)
[2024-02-03] MEDS: Piperacil/Tazobactam 3.375 GM in 0.9% Normal Saline (50mL MB+) 50 ML IV ×3 (06:45→22:28)
[2024-02-03] MEDS: Ensure Clear 120 ML Liquid PO ×2 (06:47→11:23)
[2024-02-03] MEDS: Sucralfate 1 GM Tablet PO ×4 (06:47→22:29)
--- NOTE | 2024-02-03 07:04 | NURSING ---
Resident requested to be reconnected to BiPAP w/ O2 bleed-in at 3 lpm. Nasal cannula removed. IV Zosyn stopped so blood can be drawn per next shift.
[2024-02-03] MEDS: Ipratropium/Albuterol Sulfate 3 ML AMPUL.NEB INHALATION ×3 (07:23→18:45)
--- NOTE | 2024-02-03 07:27 | NURSING ---
lab unable to draw blood today, dr michaels aware. BMP ordered cancelled.
[2024-02-03] MEDS: Lisinopril 10 MG Tablet PO (08:15)
[2024-02-03] MEDS: Insulin Lispro 100 UNIT/ML INSULN.PEN 15 UNIT SC ×3 (08:15→17:07)
[2024-02-03] MEDS: Pantoprazole Sodium 40 MG Tablet PO ×2 (08:16→22:29)
[2024-02-03] MEDS: Ascorbic Acid 500 MG Tablet PO (08:16)
[2024-02-03] MEDS: Potassium Chloride Oral Tablet 20 MEQ PO ×2 (08:16→17:07)
[2024-02-03] MEDS: Clopidogrel Bisulfate 75 MG Tablet PO (08:16)
[2024-02-03] MEDS: Carvedilol 6.25 MG Tablet PO ×2 (08:16→22:29)
[2024-02-03] MEDS: Aspirin 81 MG TAB.CHEW PO (08:16)
[2024-02-03] MEDS: Iron Polysaccharide Complex 150 MG CAPSULE PO (08:16)
[2024-02-03] MEDS: Hydroxychloroquine 200 MG Tablet PO ×2 (08:16→17:07)
[2024-02-03] MEDS: Cholecalciferol (VIT D3) 25 MCG TABLET (1,000 UNITS) 50 MCG PO (08:16)
--- NOTE | 2024-02-03 10:14 | NURSING ---
Spoke with Daughter Helen and gave update regarding R's condition and Pt. statements of I just dont wanna do this anymore, vital signs, inability to draw labs. Helen stated that she will talk to her Dad regarding Hospice. SS offered for family but declined per Helen at this time. Dr. Myles aware of above and is Ok with Hospice consult if family chooses.
--- NOTE | 2024-02-03 10:22 | NURSING ---
PT assisted into WC, pt very fatigued but still wanted to get hair done this AM. portable oxygen applied at 3 Liters, Zosyn continues to infuse as ordered. Beautician aware to call if pt needs us for anything or c/o SOB
[2024-02-03 11:38] LABS: Bedside Glucose 274 mg/dL (74-106)
--- NOTE | 2024-02-03 12:10 | NURSING ---
Offered covid vaccine, VIS provided. Resident refuses at this time.
--- NOTE | 2024-02-03 13:51 | CHAPLAIN ---
Type of Pastoral Visit ___ Initial Visit _x__ Follow-up Visit ___ On-call Visit ___ General Patient Visit ___ Spiritual Assessment ___ Family Conference ___ Bereavement ___ Rapid Response ___ Code Blue ___ Other (describe below) Pastoral Care Referral From _x__ Patient _x__ Family ___ Nurse ___ Physician ___ Greenhouse Grower ___ Composite Worker ___ Other (describe below) Sacrament/Intervention _x__ Active listening ___ Anointing ___ Orthodox ___ Bereavement ___ Communion ___ Charity exploration ___ ___ Life review _x__ Prayer ___ Reconciliation ___ Sacrament of Sick _x__ Supportive presence ___ Wedding ___ Other (describe below) Pastoral Comments patient is eating her lunch but is slow with it and has to take breaks to talk; kept visit short for pt to catch her breath; family member in the room with pt; pt reports that today is a better day and that she had some therapy already; pt states that she has some hope but also aware that this is taking a long time for recovery; pt welcomes a prayer
[2024-02-03] MEDS: 0.9% Saline Lock 10 ML Syringe IV (15:09)
[2024-02-03 16:34] LABS: Bedside Glucose 318 mg/dL (74-106)
[2024-02-03 22:09] LABS: Bedside Glucose 319 mg/dL (74-106)
[2024-02-03] MEDS: Atorvastatin Calcium 40 MG Tablet PO (22:29)
[2024-02-03] MEDS: Insulin Glargine-YFGN 100 UNIT/ML Pen 45 UNIT SC (22:36)
[2024-02-04] VITALS (8 sets, daily range): BP systolic 156–159; BP diastolic 65–67; PULSE 62–80; RESP 12–23; TEMP 36.3; O2SAT 96–100; BMI 33.6
[2024-02-04] MEDS: LORazepam 2 MG/ML Bottle 1 MG SL (02:56)
--- NOTE | 2024-02-04 03:03 | NURSING ---
Requested medication for anxiety- refer to MAR. O2 in use at 3 lpm via nc. Encouraged resident to have BiPAP reapplied and is agreeable. BiPAP w/ O2 bleed-in at 3lpm reapplied at 0300. Mask without any leaks. Connected to continuous pulse oximeter w/ saturation at 98%. Respirations shallow, even, and unlabored. Denies any c/o pain or discomfort. Will continue to monitor.
[2024-02-04] MEDS: Nystatin Powder 15gm Bottle 1 APPLIC TOPICAL ×2 (05:06→22:15)
[2024-02-04] MEDS: Piperacil/Tazobactam 3.375 GM in 0.9% Normal Saline (50mL MB+) 50 ML IV ×2 (05:07→14:19)
[2024-02-04] MEDS: MethylPREDNISolone 125 MG/2 ML Vial IV (05:07)
[2024-02-04] MEDS: 0.9 % NaCl (Sterile) Posiflush 10 mL IV (05:08)
[2024-02-04] MEDS: Menthol/Lanolin/Calamine/Znox 113 GM Tube 1 APPLIC TOPICAL ×3 (05:09→22:15)
[2024-02-04] MEDS: Sucralfate 1 GM Tablet PO ×4 (05:14→22:14)
--- NOTE | 2024-02-04 05:29 | NURSING ---
Resident is irritable after am care completed. Briefly requested BiPAP be removed and nasal cannula reapplied. Resident verbalizes she is not happy about her current health status and that her body is not cooperating. Emotional support and active listening provided. Encouraged resident to discuss goals of care w/ her daughter and spouse. Resident states, I already did. She thinks her insulin regimen should be the same as her sons and tries to explain how he administers his insulin. Informed resident d/t administration of steroids blood sugar levels are elevated and treatment consists of both long- and short-acting insulin to reduce levels to prevent potential complications and resident states, whatever. Encouraged to increase consumption of sparkling water at bedside and she declines. Purewick canister was empty but brief was soiled when changed per warp tier just prior to medication administration this am. Will report to oncoming nurse and continue to monitor.
[2024-02-04 06:25] LABS: Bedside Glucose 224 mg/dL (74-106)
[2024-02-04] MEDS: Ipratropium/Albuterol Sulfate 3 ML AMPUL.NEB INHALATION ×2 (06:59→13:08)
--- NOTE | 2024-02-04 08:02 | NURSING ---
Patient very upset and tearful this morning. Stated the nurse on the previous shift was very pushy and wanting her to change code status, making her feel like she should just give up. She stated she wants to keep fighting and did not appreciate the nurse's attitude. She does not that nurse to take care of her anymore. Message left with payroll supervisor.
[2024-02-04] MEDS: predniSONE 20 MG Tablet 60 MG PO (09:26)
[2024-02-04] MEDS: Potassium Chloride Oral Tablet 20 MEQ PO ×2 (09:27→17:39)
[2024-02-04] MEDS: Aspirin 81 MG TAB.CHEW PO (09:27)
[2024-02-04] MEDS: Cholecalciferol (VIT D3) 25 MCG TABLET (1,000 UNITS) 50 MCG PO (09:28)
[2024-02-04] MEDS: Carvedilol 6.25 MG Tablet PO ×2 (09:28→22:14)
[2024-02-04] MEDS: Hydroxychloroquine 200 MG Tablet PO ×2 (09:28→17:39)
[2024-02-04] MEDS: Clopidogrel Bisulfate 75 MG Tablet PO (09:29)
[2024-02-04] MEDS: Pantoprazole Sodium 40 MG Tablet PO ×2 (09:29→22:14)
[2024-02-04] MEDS: Iron Polysaccharide Complex 150 MG CAPSULE PO (09:29)
[2024-02-04] MEDS: Ascorbic Acid 500 MG Tablet PO (09:30)
[2024-02-04] MEDS: Lisinopril 10 MG Tablet PO (09:30)
[2024-02-04] MEDS: Insulin Lispro 100 UNIT/ML INSULN.PEN 17 UNIT SC ×3 (09:31→17:39)
[2024-02-04 11:18] LABS: Bedside Glucose 380 mg/dL (74-106)
--- NOTE | 2024-02-04 14:56 | CASEMGMT ---
Social Work SW spoke with pt at bedside. Gently approached how pt was feeling, doing overall, and her goals for care. Pt explained she is motivated for recovery, ongoing improvement and wants to continue with therapy. SW agreed with ongoing therapy, explaining this worker's goal is to ensure IDT and pt remain concurrent on treatment plans. SW requested if pt would like to change her wish, to notify this worker or Dr. Pt confirmed and agreed to notification. SW offered ongoing support as needed. SW will continue to follow. ESTEBAN BaileyW
[2024-02-04 18:00] LABS: Bedside Glucose 160 mg/dL (74-106)
[2024-02-04] MEDS: Atorvastatin Calcium 40 MG Tablet PO (22:14)
[2024-02-04] MEDS: Arthritis Pain Compound 60 CLICK TUBE TOPICAL (22:16)
[2024-02-04] MEDS: Insulin Glargine-YFGN 100 UNIT/ML Pen 50 UNIT SC (22:21)
[2024-02-04 22:39] LABS: Bedside Glucose 150 mg/dL (74-106)
[2024-02-05] VITALS (7 sets, daily range): BP systolic 105–146; BP diastolic 57–89; PULSE 53–80; RESP 12–32; TEMP 36.2; O2SAT 96–100
[2024-02-05] MEDS: Menthol/Lanolin/Calamine/Znox 113 GM Tube 1 APPLIC TOPICAL (06:17)
[2024-02-05] MEDS: Nystatin Powder 15gm Bottle 1 APPLIC TOPICAL (06:17)
[2024-02-05] MEDS: Sucralfate 1 GM Tablet PO ×2 (06:17→10:44)
[2024-02-05 06:27] LABS: Bedside Glucose 41 mg/dL (74-106)
[2024-02-05] MEDS: Ipratropium/Albuterol Sulfate 3 ML AMPUL.NEB INHALATION ×2 (06:47→12:55)
[2024-02-05 07:20] LABS: Bedside Glucose 70 mg/dL (74-106)
--- NOTE | 2024-02-05 07:48 | CPS ---
pt was on 5L when RT entered room. This RT turned pt down to 3L NC which is pts baseline
[2024-02-05] MEDS: Pantoprazole Sodium 40 MG Tablet PO (08:54)
[2024-02-05] MEDS: Cholecalciferol (VIT D3) 25 MCG TABLET (1,000 UNITS) 50 MCG PO (08:54)
[2024-02-05] MEDS: predniSONE 20 MG Tablet 60 MG PO (08:54)
[2024-02-05] MEDS: Lisinopril 10 MG Tablet PO (08:54)
[2024-02-05] MEDS: Carvedilol 6.25 MG Tablet PO (08:54)
[2024-02-05] MEDS: Ascorbic Acid 500 MG Tablet PO (08:54)
[2024-02-05] MEDS: Aspirin 81 MG TAB.CHEW PO (08:55)
[2024-02-05] MEDS: Hydroxychloroquine 200 MG Tablet PO (08:55)
[2024-02-05] MEDS: Arthritis Pain Compound 60 CLICK TUBE TOPICAL (08:56)
[2024-02-05] MEDS: Potassium Chloride Oral Tablet 20 MEQ PO (08:56)
[2024-02-05] MEDS: Iron Polysaccharide Complex 150 MG CAPSULE PO (08:57)
[2024-02-05] MEDS: Clopidogrel Bisulfate 75 MG Tablet PO (08:57)
--- NOTE | 2024-02-05 09:06 | NURSING ---
It Network Administrator Note; MDS for 02/05/2024 Complete
[2024-02-05] MEDS: 0.9 % NaCl (Sterile) Posiflush 10 mL IV (09:07)
[2024-02-05] MEDS: Acetaminophen 500 MG Tablet 1000 MG PO (10:44)
--- NOTE | 2024-02-05 11:10 | CASEMGMT ---
Social Work IDT met with patient, and dtr for care plan meeting. Discussed patient's progress in PT/OT/ST/SN. Educated to [facility] insurance with NRD 02/11 and continued stay is not guaranteed with each review. Provided family with written communication on insurance process and copay coverage during stay. Per hospitalist, pt will need NIV at DC. SW to coordinate through [facility]. SW discussed therapy may not always benefit a patient; it may be too much and cause the pt to decline or be too fatiguing. Dtr and both expressed understanding. Pt stated she has thought about being home, surrounded by her family and back in her environment, but does want to continue with therapy. SW acknowledged, and informed of skilled HHC, which would be less intense than TCU therapy sessions and frequency. SW inquired to /dtr what assistance would be available to the pt at home. Both confirmed pt is too weak currently; would need to get stronger and be able to help with some ADL tasks. SW confirmed and wanted to understand the LOF pt would need to be at to return home, if pt does change her wish to being home. SW explained it may be a compromise of pt transferring to another facility to get the physical and medical assistance needed, but does not need to complete the intensive therapy and invasive medical care. pt nodded head in understanding. Pt very drowsy throughout meeting. Though, at the end of the meeting, the pt voiced much dissatisfaction with the shift superintendent nursing having that discussion with her; stating pt felt like she was being pushed into changing her code status and not going to . SW aware of situation in reference [see nursing notes] and assured pt the Director is aware. Apologized for pt feeling that way and no further conversations about code status or treatment plans will be discussed with pt. Staff will rely on pt voicing her wishes and if any wishes change with her treatment plan. Pt and family agreeable and appreciative, as family expressed frustration with siltation as well. SW empathized. SW did inform family/pt that per protocol, when pt a is DCd then readmitted, code status will be questioned to ensure no changes or discrepancies in orders. All parties understanding. SW will continue to follow for DC planning assistance. SARAH sent referral to [facility] via [facility] to begin process for NIV. Lyndsay Dorantes MSW DENTAL LABORATORY TECHNOLOGY TEACHER
[2024-02-05 11:16] LABS: Bedside Glucose 183 mg/dL (74-106)
--- NOTE | 2024-02-05 12:32 | NURSING ---
Pt. c/o stomach discomfort, denies nausea. Abd soft, non-distended, BS active x 4.
[2024-02-05 13:08] LABS: Allen Test Positive; Base Excess -1 mmol/L (-2 to +2); Bicarbonate 23.2 mmol/L (22-26); Blood Gas Specimen Type ART; Mode Not entered; O2 Delivery Device BiPAP; PEEP 6; PO2 177 mmHG (75-100); RR 12; SITE R Radial; SO2 100 % (95-99); Total Carbon Dioxide 24 mmol/L; pCO2 35.9 mmHg (35-45); pH 7.42 (7.35-7.45)
--- NOTE | 2024-02-05 13:14 | NURSING ---
1245 pt called out SOB, granddaughter at side. sat 99% but appears to be struggling resp 32. RT notified, breathing tx given. pt color jaundice which is change from this AM. DR michaels notified, ABG ordered. dr michaels came down to speak with family and assess pt, order to transfer to ER for evaluation. , daughter and granddaughter at side. report called to ER 1300. took to ER @ 1310 via WC w/Bipap machine intact. AUGUSTINE Umana with family to ER.
--- NOTE | 2024-02-05 14:29 | CASEMGMT ---
Addendum entered by Lyndsay Dorantes 02/05/24 16:16: Hospice meeting with patient and family this date at 1700 at bedside. Updated IDT. Addendum entered by Lyndsay Dorantes 02/05/24 15:14: SARAH remained involved with pt and family with the medical care in the ED. After ongoing conversations with family and Dr, pt agreed to home with hospice and DNR code status. SW spoke with pt and family members at bedside. Provided emotional support. Recapped discussions from Dr and goals of care for pt. Pt/family in agreement with [facility]. Pt does not want IPU. She wants to be home. Family in agreement and understandable that hospice will remove bipap mask and provide comfort meds, pt will likely pass quickly. Hospice to provide all DME needs and can have pt home as soon as possible. ED Dr will DC pt TCU. TCU can accept return until home with hospice. Family agreeable and appreciative. SW sent email referral to [facility] with high priority. Will make follow up call to referral office if no quick response. Plan: DC home with [facility] 02/04 ESTEBAN Bailey Original Note: Social Work SW notified of pt's decline and transfer to ED. SW remained with family during transfer. Provided ongoing emotional support. Continued check-ins with family and pt in ED. Ongoing conversations with medical staff and family on code status and pt's extensive goals. ESTEBAN Bailey
--- NOTE | 2024-02-05 16:16 | NURSING ---
pt back from ER, bipap maintained. meds being held, pt refusing now. pt lethargic. awaiting hospice evaluation tonight.
--- NOTE | 2024-02-05 16:50 | NURSING ---
hospice nurse here
--- NOTE | 2024-02-05 17:01 | DS.PCM_ITS ---
Providers Date of Admission: 01/29/24 Primary Care Physician: VALENTE Boyle Consultations 01/29/24 15:18 Consult: Urology Routine Consulting Provider: Justyn Lange Reason for Consult: Right staghorn calculus. EMERGENT Consult: No MD Notified: Yes Date Notified: 01/30/24 Time Notified: 11:00 Method of Notification: Answering Service 02/05/24 15:01 Consult: Hospice / Palliative Care Routine Consulting Provider: [facility] Reason for Consult: HOSPICE - dx e/s COPD, respiratory failure, CHF EMERGENT Consult: Yes MD Notified: Yes Date Notified: 02/05/24 Time Notified: 15:01 Method of Notification: Text Reason For Visit: BLEEDING, KIDNEY STONE Diagnosis Discharge Diagnosis (1) Debility: Status: Acute Code(s): R53.81 - Other malaise (2) Hematuria: Status: Acute Code(s): R31.9 - Hematuria, unspecified (3) Kidney stone on right side: Status: Acute Code(s): N20.0 - Calculus of kidney (4) Urinary tract infection: Status: Acute Code(s): N39.0 - Urinary tract infection, site not specified Qualifiers: Urinary tract infection type: acute cystitis Hematuria presence: with hematuria Qualified Code(s): N30.01 - Acute cystitis with hematuria (5) Acute respiratory failure with hypoxia: Status: Acute Code(s): J96.01 - Acute respiratory failure with hypoxia (6) COPD exacerbation: Status: Resolved Code(s): J44.1 - Chronic obstructive pulmonary disease with (acute) exacerbation (7) Acute HFrEF (heart failure with reduced ejection fraction): Status: Acute Code(s): I50.21 - Acute systolic (congestive) heart failure (8) Status post non-ST elevation myocardial infarction (NSTEMI): Status: Acute Code(s): I25.2 - Old myocardial infarction (9) Coronary artery disease: Status: Acute Code(s): I25.10 - Atherosclerotic heart disease of [place] coronary artery without angina pectoris (10) Hyperlipidemia, unspecified: Status: Acute Code(s): E78.5 - Hyperlipidemia, unspecified (11) Mixed connective tissue disease: Status: Acute Code(s): M35.1 - Other overlap syndromes (12) Gastric ulcer: Status: Acute Code(s): K25.9 - Gastric ulcer, unspecified as acute or chronic, without hemorrhage or perforation Plan 73 year old female with below past medical history hospitalized for hematuria 2/2 right staghorn calculus, underwent partial lithotripsy, right ureteral stent placement, complicated by acute respiratory failure with hypoxia 2/2 copd exacerbation, acute hfref, pseudomonas urinary tract infection, admitted to TCU with debility, here for rehabilitation, strengthening, prior to repeat right lithotripsy. * Debility - PT/OT. * Pain - Tylenol 1000mg q6 prn pain (1-5), Oxycodone 10mg q4 prn pain (6-10). * Bowel - senna/colace 2 tablets bid, Magnesium citrate 300mL po daily prn. * Adult immunization - Administer pneumonia vaccine, covid vaccine, flu vaccine as appropriate. * DVT prophylaxis - Hold, on dual antiplatelet therapy. * Coronary artery disease - Coreg 6.25mg bid, Lisinopril 10mg daily, Plavix 75mg daily, Aspirin 81mg daily. * Hyperlipidemia - Atorvastatin 40mg qhs. * Vitamin D deficiency - D3 50mcg daily. * MCTD - Plaquenil 200mg bidcm. * COPD - Duoneb 3ML q6 wart, Prednisone 40mg taper, BiPAP when asleep. * Gastric ulcer - Pantoprazole 40mg bid thru 03/18/2024, then 40mg daily, Sucralfate 1gm qachs thru 03/11/2024. * Pseudomonas UTI - Zosyn 3.375gm iv q8 thru 02/04/2024. * Right kidney stone - Consult Dr. Lange to finish lithotripsy, stent removal, when resident feeling stronger. Medications at Discharge Home Medications tramadol 50 mg tablet 50 mg PO DAILY PRN Pain Score 1-10 03/02/14 oxybutynin chloride 5 mg tablet 5 - 10 mg PO BID pain 01/25/20 cholecalciferol (vitamin D3) 50 mcg (2,000 unit) capsule 2,000 unit PO DAILY deficiency 07/27/20 hydroxychloroquine 200 mg tablet 200 mg PO BIDCM arthritis 07/27/20 aspirin 81 mg chewable tablet 81 mg PO DAILYCM Heart #0 tabs 06/06/23 budesonide 160 mcg-glycopyr 9 mcg-formot 4.8 mcg/actuation HFA inhaler (Breztri Aerosphere) 2 inh inhalation BID breathing #10.7 grams 07/05/23 atorvastatin 40 mg tablet 40 mg PO QHS cholesterol #30 tabs 01/07/24 carvedilol 6.25 mg tablet 6.25 mg PO BID blood pressure #60 tabs 01/07/24 lisinopril 10 mg tablet 10 mg PO DAILY blood presure #30 tabs 01/07/24 ciprofloxacin HCl 500 mg tablet (Cipro) 500 mg PO BID Infection #14 tabs 01/24/24 acetaminophen 325 mg tablet 650 mg (2 x 325 mg) PO Q6H PRN PRN Pain Score 1-10 #0 tabs 01/29/24 clopidogrel 75 mg tablet 75 mg PO DAILY Anticoagulant #0 tabs 01/29/24 docusate sodium 100 mg capsule 200 mg (2 x 100 mg) PO BID Constipation #0 caps 01/29/24 ipratropium 0.5 mg-albuterol 3 mg (2.5 mg base)/3 mL nebulization soln 3 ml inhalation Q6HWA.RT Shortness of breath #0 mL 01/29/24 pantoprazole 40 mg tablet,delayed release 40 mg PO BID Gastric Reflux #1 TAB 01/29/24 prednisone 20 mg tablet 40 mg (2 x 20 mg) PO BREAKFAST Inflammation #1 TAB 01/29/24 sucralfate 1 gram tablet 1 g PO 1HR_ACHS Gastric reflux #1 TAB 01/29/24 oxybutynin chloride 5 mg tablet,extended release 24 hr 5 - 10 mg PO DAILY 02/05/24 Hospital Course Operations None Procedures None Summary of Care Provided Minutes Spent on Discharge: 35 Hospital Course: 73 year old female with below past medical history hospitalized for hematuria 2/2 right staghorn calculus, underwent partial lithotripsy, right ureteral stent placement, complicated by acute respiratory failure with hypoxia 2/2 copd exacerbation, acute hfref, pseudomonas urinary tract infection, admitted to TCU with debility, here for rehabilitation, strengthening, prior to repeat right lithotripsy. Resident dying. She would like to at home. Discharge 02/05/2024 to home with [facility], Hospital Bed. Hospital Bed: Patient requires a hospital bed due to needing frequent changes in position to alleviate pain, prevent ongoing pressure areas, assist in healing of current pressure areas, prevent aspiration or due to respiratory condition. Dx: End stage COPD, acute respiratory failure with hypoxia, BiPAP dependent. Physical Exam Const alert General Appearance: cooperative HEENT normocephalic HEENT Narrative: BiPAP present. Eyes PERRL and EOMs intact bilaterally Neck supple, no JVD and no carotid bruits Resp normal respiratory effort, normal air movement and clear to auscultation bilaterally Cardio regular rate and regular rhythm GI normal to inspection, nondistended, normoactive bowel sounds, non-tender and non-distended Extremity normal capillary refill General Extremity: Negative for edema Skin no rashes or lesions noted General Skin Exam: no breakdown Psych affect normal Appearance: appropriate Medical Records Data Medical Nutrition Assessment Dietitian: Malnutrition Criteria Met Start: 01/30/24 13:47 Freq: Status: Active Protocol: Document 02/05/24 11:55 SLA (Rec: 02/05/24 11:55 SLA [id number]) Nutrition Malnutrition Evidence of Malnutrition Exists Yes Malnutrition (severe): Chronic Malnutrition (unspecified) Severe pro/bella Evidenced By Suboptimal Energy Intake ( Moderate),Weight Loss (Severe) Clinical Problem Chronic Disease or Condition Related Malnutrition Etiology related to chronic health conditions Signs/Symptoms Weight loss of 17% 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 Status Active Problem Recommendation Dietitian Recommendations/Changes Continue Regular, sodium restriction. Change ONS to 240 mL apple Ensure Clear 3x/day with meals to provide additional 24 g protein and 720 kcals/day Weight / BMI Weight Weight: 86.228 kg Body Mass Index (BMI) 33.6 ABG / Lab / Microbiology Data 02/02/24 05:15 02/02/24 05:15 Laboratory: Laboratory Results - last 24 hr 02/04/24 16:59: POC Glucose 160 H 02/04/24 22:21: POC Glucose 150 H 02/05/24 06:05: POC Glucose 41 L* 02/05/24 07:00: POC Glucose 70 L 02/05/24 10:57: POC Glucose 183 H ABG: ABG 02/05/24 13:06 Specimen Type ART Sample Site R Radial pH 7.42 Bicarbonate Actual 23.2 Total CO2 24 Base Excess -1 O2 Saturation 100 H O2 % 40.0 ABG pCO2 35.9 ABG pO2 177 H Ismael Test Positive Respiration Rate 12 O2 Delivery Device BiPAP Vent Mode Not entered POC PEEP 6 D/C Instructions Discharge Diet: No restrictions Discharge Activity: Return to Normal Activity Additional Instructions: Discharge 02/05/2024 to home with [facility], Hospital Bed. Hospital Bed: Patient requires a hospital bed due to needing frequent changes in position to alleviate pain, prevent ongoing pressure areas, assist in healing of current pressure areas, prevent aspiration or due to respiratory condition. Dx: End stage COPD, acute respiratory failure with hypoxia, BiPAP dependent. Meaningful Use Info Meaningful Use Meaningful Use Diagnoses (Choose all that apply): None applicable Ischemic Stroke Statin Dosing Therapy Reference: STATIN DOSE THERAPY REFERENCE: * Patients > 75 years receive moderate or high dose statin therapy. * Patients 75 years or YOUNGER should receive HIGH intensity statin dose unless contraindicated. You will be required to document reason for non-treatment if statin daily dose does not meet guidelines. HIGH DOSE STATIN THERAPY DAILY Atorvastatin > than or = to 40 mg Rosuvastatin > than or = to 20 mg Amlodipine + Atorvastatin > than or = to 2.5/40 mg Ezetimibe + Simvastatin 10/80 mg Simvastatin 80mg Discharge Plan Admission Admit Date/Time: 01/29/24 12:25 Primary Reason for Your Visit: Debility. Attending Provider: Sampson Myles Chi Primary Care Provider: Haritha Alonso Consulting Providers: Justyn Lange; Darwin Leach; Cynthia Oseguera; Kiara Spencer; Taylor Anderson; Kathy Harris NP; Brigida Naqvi Instructions Additional Instructions / Restrictions: Discharge 02/05/2024 to home with [facility], Hospital Bed. Hospital Bed: Patient requires a hospital bed due to needing frequent changes in position to alleviate pain, prevent ongoing pressure areas, assist in healing of current pressure areas, prevent aspiration or due to respiratory condition. Dx: End stage COPD, acute respiratory failure with hypoxia, BiPAP dependent. Discharge Orders/Prescriptions Prescriptions: No Action Breztri Aerosphere 160-9-4.8 mcg/actuation HFA aerosol inhaler 2 inh inhalation BID Qty: 10.7 6RF tramadol 50 MG tablet 50 mg PO DAILY PRN (Reason: Pain Score 1-10) oxybutynin chloride 5 MG tablet 5 - 10 mg PO BID hydroxychloroquine 200 MG tablet 200 mg PO BIDCM cholecalciferol (vitamin D3) 2,000 UNIT capsule 2,000 unit PO DAILY aspirin 81 mg Tablet,Chewable 81 mg PO DAILYCM Qty: 0 0RF atorvastatin 40 mg Tablet 40 mg PO QHS Qty: 30 0RF carvedilol 6.25 mg Tablet 6.25 mg PO BID Qty: 60 0RF lisinopril 10 mg Tablet 10 mg PO DAILY Qty: 30 0RF ciprofloxacin HCl [Cipro] 500 mg tablet 500 mg PO BID Qty: 14 0RF clopidogrel 75 mg Tablet 75 mg PO DAILY Qty: 0 0RF docusate sodium 100 mg Capsule 200 mg PO BID Qty: 0 0RF acetaminophen 325 mg Tablet 650 mg PO Q6H PRN PRN (Reason: Pain Score 1-10) Qty: 0 0RF ipratropium-albuterol 0.5 mg-3 mg(2.5 mg base)/3 mL Solution For Nebulization 3 ml inhalation Q6HWA.RT Qty: 0 0RF sucralfate 1 gram Tablet 1 g PO 1HR_ACHS Qty: 1 0RF Rx Instructions: Continue for 6 weeks then stop prednisone 20 mg Tablet 40 mg PO BREAKFAST Qty: 1 0RF Rx Instructions: Slow prednisone taper with 40 mg x 3 days, 30 mg x 4 days, 20 mg x 4 days, 10 mg x 4 days then stop pantoprazole 40 mg Tablet,Delayed Release (Dr/Ec) 40 mg PO BID Qty: 1 0RF Rx Instructions: Will need to take twice daily for 8 weeks then revert to 40 mg daily oxybutynin chloride 5 mg tablet extended release 24hr 5 - 10 mg PO DAILY Referrals / Follow Up: Haritha Alonso NP-C [Primary Care Provider] - Disposition Disposition (needs filled in before D/C Order can be placed): Hospice in Home
--- NOTE | 2024-02-05 17:59 | CASEMGMT ---
Social Work SW spoke with family in room, provided ongoing support. Requested comfort cart from dietary for family members. Family appreciative. Hospice nurse, Karolina, present and expressed concern with pt being able to safely DC home tonight given the late hour and having the needed DME in place. SW, TCU RN and Dr. Myles collaborated on problem solving DC. Multiple conversations on options and discussions with family on possibilities. Dr expressed concern with pt being taken off of bipap for transport and dying in transport to home. SW spoke with pt's , dtr and gdtr about Dr's concern and clearly stated the likelihood of pt not surviving transport, if that is pt's and family's wishes. Offered for family to gather at pt's bedside and TCU staff remove the bipap and allow pt to pass peacefully and comfortably on the unit. Family expressed full understanding. Family asked pt and pt expressed understanding to the question, per dtr, and stated she wants to try transport in hopes to at home. SW relayed decision to and application tester. bottle cleaner stated a hospital bed can be delivered about 2100 and pt can use existing O2 at home. Family and IDT in agreement for transfer. SW phoned [facility] to schedule cot transport. Disptacher stated they can provided bipap during transport. SW provided bipap settings from RT. Scheduled p/u for 2129 with request to phone nurse's station if there are any delays. SW followed up with family and provided ongoing support. SW provided support to pt and pt thanked this worker for the efforts. Family appreciative. Plan: DC home 02/04 with [facility] ESTEBAN Bailey
--- NOTE | 2024-02-05 20:21 | NURSING ---
Tish from [facility] calls unit asking if patient will be using bipap at home, Tish from [facility] says she will be able to provide bipap during transportation but not after. This nurse spoke with patient representatives spouse (Eliezer) and daughter (Helen) who are visiting patient at bedside, Eliezer and Helen both confirm that they are aware no BIPAP will be used at home and that patient is going home to and might only have 2 more days to live. Per daughter Helen, hospice explained that BIPAP would not be used at home for end of life care. Helen and Eliezer continue to request transport home via [facility] and state a hospice nurse plans to visit them at home tonight with time undetermined.
[2024-02-05] MEDS: LORazepam 2 MG/ML Bottle 1 MG SL (21:12)
--- NOTE | 2024-02-05 21:12 | NURSING ---
PRN ativan administered at this time as ordered per pt. request before the ride home
--- NOTE | 2024-02-05 21:14 | NURSING ---
Addendum entered by Isa Woodruff 02/05/24 21:35: reps x2 with [facility] states nonrebreather @15L to be used in place of bipap per hospice nurse and Tish at [facility]. Rep calls Tish at [facility] and confirms bipap not to be used during transport. Hospice nurse Aydee calls unit and speaks with this nurse stating that non rebreather to be used for transport @15L, confirms no bipap during transport . Original Note: [facility] on unit at this time to transport patient home, patient has several family members at bedside, resp Eliezer and Helen remain at bedside
--- NOTE | 2024-02-05 21:36 | NURSING ---
Patient discharges home with [facility] transport via cot at this time
--- NOTE | 2024-02-06 14:10 | MDS.RN ---
Information for the MDS was obtained from review of the clinical record, interview of resident, staff, and direct observation of resident?s care.
== END 2024-02-05 21:36 | disposition hospice, home (50) | DRG 949 ==
PROVIDERS: Admitting Provider Family Medicine Geriatric Medicine; PCP Nurse Practitioner Family; Visit Provider Family Medicine Geriatric Medicine
DX: Z48.816 Encounter for surgical aftercare following surgery on the genitourinary system (principal); I21.4 Non-ST elevation (NSTEMI) myocardial infarction; J96.01 Acute respiratory failure with hypoxia; I50.21 Acute systolic (congestive) heart failure; E44.0 Moderate protein-calorie malnutrition; J44.1 Chronic obstructive pulmonary disease with (acute) exacerbation; M35.1 Other overlap syndromes; D62 Acute posthemorrhagic anemia; N30.01 Acute cystitis with hematuria; G20.A1 Parkinson's disease without dyskinesia, without mention of fluctuations; I11.0 Hypertensive heart disease with heart failure; K25.9 Gastric ulcer, unspecified as acute or chronic, without hemorrhage or perforation; Z68.33 Body mass index [BMI] 33.0-33.9, adult; E78.5 Hyperlipidemia, unspecified; I25.10 Atherosclerotic heart disease of native coronary artery without angina pectoris; E55.9 Vitamin D deficiency, unspecified; F41.9 Anxiety disorder, unspecified; N20.0 Calculus of kidney; B96.5 Pseudomonas (aeruginosa) (mallei) (pseudomallei) as the cause of diseases classified elsewhere; Z79.899 Other long term (current) drug therapy; Z79.82 Long term (current) use of aspirin; Z79.02 Long term (current) use of antithrombotics/antiplatelets; Z87.891 Personal history of nicotine dependence; Z86.16 Personal history of COVID-19; Z79.52 Long term (current) use of systemic steroids; Z95.5 Presence of coronary angioplasty implant and graft
CPT/HCPCS: 36415; 36600; 80048; 82803; 82962; 85014; 85018; 85025; 86850; 86900; 86901; 86920; 86922; 92523; 94002; 94003; 94640; 94762; 97110; 97129; 97162; 97166; 97530; 97802; J7040; P9016; A4216; J1940

== ENCOUNTER 2024-02-02 08:59 | Emergency (ER) | payer MEDICARE, SELFPAY ==
[2024-02-02] VITALS (8 sets, daily range): BP systolic 114–193; BP diastolic 62–96; PULSE 68–81; RESP 12–33; TEMP 36.4–36.9; O2SAT 95–100; BMI 34.8
--- NOTE | 2024-02-02 09:19 | EKG12_ITS ---
Test Reason : WEAKNESS Blood Pressure : / mmHG Vent. Rate : 069 BPM Atrial Rate : 000 BPM P-R Int : 000 ms QRS Dur : 104 ms QT Int : 430 ms P-R-T Axes : 000 039 -35 degrees QTc Int : 460 ms ATRIAL FIBRILLATION Premature ventricular complexes Nonspecific T wave abnormality Abnormal ECG Confirmed by MICHELLE REAGAN, TEMITOPE ([id number]), editor magazine GERALD BENTLEY ([id number]) on 02/04/2024 7:50:46 AM Referred By: Confirmed By:TEMITOPE MARTINEZ MD
--- NOTE | 2024-02-02 09:20 | ED.VIS.DYS ---
HPI History of Present Illness Chief Complaint: Shortness of Breath Informant: patient, spouse/S.O. and family (Daughter and at bedside.) Onset/Context/Timing Onset: Days Context: gradual Timing: Continuous Current Severity: Moderate Maximum Severity: Moderate Worsened by: Nothing Relieved by: Nothing Associated Symptoms Chest Pain: Positive for None Narrative Narrative: 73-year-old female recent hospitalizations and TCU and hospitalization for the last 3 weeks. She has a history of COPD is on constant oxygen. She also has a history of MA, Parkinson's disease and CHF. Her recent admission was for CO2 retention and respiratory acidosis. In the last several days she has had increasing weakness. No vomiting or fever. No chest pain. PE Risk Factors: Positive for Recent immobilization; Negative for Cancer or Recent travel [facility] Medical History Non-ST elevation MA (NSTEMI) GI bleed COVID-19 Acute MA Atherosclerosis of coronary artery of [place] heart without angina pectoris [place] renal calculus Urinary tract infection Gross hematuria Acute dehydration Skin tag History of left breast cancer RIGHT ANKLE FRACTURE REPAIR EXCISION STOMACH TUMOR Parkinson disease Mixed connective tissue disease Polyarthropathy Lupus Hypertension COPD (chronic obstructive pulmonary disease) Asthma Arthritis Pulmonary nodules/lesions, multiple Tobacco use disorder Breast pain Osteopenia Malignant neoplasm of central portion of female breast Low bone density Home Medications ?Medication ?Instructions ?Recorded ?Last Taken ?Type tramadol 50 mg tablet 50 mg PO DAILY PRN Pain Score 1-10 03/02/14 01/28/24 History oxybutynin chloride 5 mg tablet 5 - 10 mg PO BID pain 01/25/20 01/12/24 History cholecalciferol (vitamin D3) 50 2,000 unit PO DAILY deficiency 07/27/20 01/22/24 History mcg (2,000 unit) capsule hydroxychloroquine 200 mg tablet 200 mg PO BIDCM arthritis 07/27/20 01/12/24 History aspirin 81 mg chewable tablet 81 mg PO DAILYCM Heart #0 tabs 06/06/23 01/22/24 Rx budesonide 160 mcg-glycopyr 9 2 inh inhalation BID breathing 07/05/23 01/12/24 Rx mcg-formot 4.8 mcg/actuation HFA #10.7 grams inhaler (Breztri Aerosphere) atorvastatin 40 mg tablet 40 mg PO QHS cholesterol #30 tabs 10/01/24 10/09/24 Rx carvedilol 6.25 mg tablet 6.25 mg PO BID blood pressure #60 01/07/24 01/22/24 Rx tabs lisinopril 10 mg tablet 10 mg PO DAILY blood presure #30 01/07/24 01/22/24 Rx tabs ciprofloxacin HCl 500 mg tablet 500 mg PO BID Infection #14 tabs 01/24/24 Unknown Rx (Cipro) acetaminophen 325 mg tablet 650 mg (2 x 325 mg) PO Q6H PRN PRN 01/29/24 Unknown Rx Pain Score 1-10 #0 tabs clopidogrel 75 mg tablet 75 mg PO DAILY Anticoagulant #0 01/29/24 Unknown Rx tabs docusate sodium 100 mg capsule 200 mg (2 x 100 mg) PO BID 01/29/24 Unknown Rx Constipation #0 caps ipratropium 0.5 mg-albuterol 3 mg 3 ml inhalation Q6HWA.RT Shortness 01/29/24 Unknown Rx (2.5 mg base)/3 mL nebulization of breath #0 mL soln pantoprazole 40 mg tablet,delayed 40 mg PO BID Gastric Reflux #1 TAB 01/29/24 Unknown Rx release prednisone 20 mg tablet 40 mg (2 x 20 mg) PO BREAKFAST 01/29/24 Unknown Rx Inflammation #1 TAB sucralfate 1 gram tablet 1 g PO 1HR_ACHS Gastric reflux #1 01/29/24 Unknown Rx TAB Allergy/AdvReac Type Severity Reaction Status Date / Time bromide salts (bromide) AdvReac Hives Verified 01/22/24 13:12 strawberry AdvReac Hives Verified 01/22/24 13:12 Family History Mother Arthritis Diabetes Hypertension Osteoporosis Father Arthritis Heart disease Sister Arthritis Breast cancer Diabetes Hypertension Son Diabetes Other Alzheimer disease Anemia Hyperlipidemia Thyroid disorder Surgical History History of ureter stent History of lithotripsy History of coronary artery stent placement (01/07/24) History of lung biopsy History of tubal ligation History of lumpectomy Hx of cholecystectomy Social History household members: spouse Smoking Status: Former smoker alcohol intake: never substance use type: does not use ROS ROS ED ROS Narrative Generalized weakness. Increased BiPAP requirement. Constitutional Constitutional ED: Denies chills or fever(s) Eyes Eyes: Denies blurry vision ENT ENT ED: Denies ear pain Cardiovascular Cardiovascular: Denies chest pain Respiratory/Chest Respiratory/Chest: Reports dyspnea; Denies cough Gastrointestinal Gastrointestinal: Denies abdominal pain Genitourinary Genitourinary ED: Denies dysuria or hematuria Musculoskeletal Musculoskeletal: Denies arthralgias Integumentary Denies abscess Neurologic Neurologic: Denies headache(s) Psychiatric Psychiatric: Denies anxiety Endocrine Endocrinology: Denies cold intolerance Hematologic/Lymphatic Hematologic/Lymphatic: Reports easy bleeding; Denies easy bruising or lymphadenopathy Allergic/Immunologic Allergic/Immunologic ED: Denies mouth swelling, tongue swelling or urticaria EXAM Physical Exam Narrative Exam Narrative: 73-year-old female sitting upright in bed on BiPAP. Vital signs are stable. She is afebrile. H EENT exam unremarkable. Mytrex membranes. Neck nontender no JVD. Lungs are to auscultation bilaterally. On BiPAP. Heart regular rhythm rate about 70 no murmur. Chest wall ribs nontender. Abdomen soft nontender. Moving all 4 extremities. Calves are nontender without edema. She is awake and alert. Answer questions following commands. Family is present in the room her daughter and I believe her walked and was talking the patient. Const Vital Signs: 02/02/24 09:02 02/02/24 09:09 02/02/24 09:19 Temperature 97.6 F L Temperature Source Oral Pulse Rate 69 Respiratory Rate 17 Blood Pressure 189/81 H Blood Pressure Mean 117 Pulse Ox Oxygen Delivery Method Bi-pap Bi-pap Bi-pap Oxygen Flow Rate (L/min) 02/02/24 10:01 02/02/24 10:56 02/02/24 12:00 Temperature 98.4 F 98.1 F Temperature Source Oral Oral Pulse Rate 68 81 72 Respiratory Rate 19 H 22 H 18 Blood Pressure 169/70 H 175/65 H 114/96 H Blood Pressure Mean 103 101 102 Pulse Ox 100 99 99 Oxygen Delivery Method Bi-pap Bi-pap Bi-pap Oxygen Flow Rate (L/min) 02/02/24 12:00 02/02/24 13:00 02/02/24 13:58 Temperature 98.4 F 98.3 F Temperature Source Oral Oral Pulse Rate 72 70 Respiratory Rate 18 18 Blood Pressure 193/74 H 186/78 H Blood Pressure Mean 113 114 Pulse Ox 95 98 98 Oxygen Delivery Method Nasal Cannula Room Air Bi-pap Oxygen Flow Rate (L/min) 3 02/02/24 14:08 Temperature 98.2 F Temperature Source Pulse Rate 68 Respiratory Rate 24 H Blood Pressure 185/62 H Blood Pressure Mean 103 Pulse Ox 100 Oxygen Delivery Method Oxygen Flow Rate (L/min) Positive well nourished and well developed; Negative for cachectic, contractures or unkempt General Appearance ED: well developed and other Currently on BiPAP. ; Negative for unkempt, cachectic, contractures, NAD or pallor Nutritional Appearance: Negative for cachectic HEENT Reports moist mucous membranes atraumatic; Negative for trauma or tenderness Eyes PERRL and EOMs intact bilaterally General Eye ED: Negative for pale conjunctiva Neck no lymphadenopathy, supple, no meningeal signs and no JVD Resp normal respiratory effort and clear to auscultation bilaterally Resp Narrative: On BiPAP. Auscultation: Negative for rales, rhonchi, wheezes or diminished lung sounds Cardio regular rate, regular rhythm, S1 normal heart sound, S2 normal heart sound and no murmurs Rate: Negative for bradycardia or tachycardic Rhythm: Negative for abnormal rhythm GI non-tender, non-distended and no masses Palpation: soft; Negative for tender, guarding or rebound tenderness present Back/Spine no CVA tenderness and normal to inspection General Back: Negative for CVA tenderness Extremity normal to inspection General Extremety ED: Negative for edema or tenderness General Extremity: Negative for edema Neuro oriented x3 and CN's II-XII intact bilaterally Sensorium / Orientation: alert, oriented to person, oriented to place and oriented to time; Negative for orientation impaired, confused, lethargic or stuporous Speech: speech normal Motor Exam: strength 5/5 throughout Psych mental status grossly normal Appearance: Negative for unkempt Attitude: No agitated Mood & Affect: Negative for depressed, anxious or tearful Thought Process: normal thought process Skin no wounds General Skin Exam: Negative for jaundice or pallor Lesions: no lesions Rashes: no rashes Trauma: Negative for abrasion or laceration MDM MDM MDM Narrative Medical decision making narrative: 73-year-old female requiring increasing BiPAP. History of COPD. Concern for respiratory failure and CO2 retention. She undergo a cardiac and respiratory workup. Repeat exam patient doing well at 2 PM. I had a discussion with several family members. We went over her lab test. They are pretty much consistent with her baseline labs. Patient is currently doing well on her BiPAP. They are comfortable with her being transferred back to the transitional care unit. I also spoke previously to one of the hospitalist, Dr. Bernadette Connell. Who knows this patient well from recent admissions. I did not feel there is any benefit by readmitting her to the hospital at this time. History & Record Review Discussion w/independent historian: Patient and Family Additional record(s) reviewed:: Prior inpatient record, Prior outpatient record, Prior ED visit and Prior labs Lab Data Attestation: I reviewed the patient's lab results. Lab results narrative: CBC shows a white count of 10.7. H&H 9.1 and 27.3. Better than her recent hemoglobin 8.5 and she had a recent transfusion. Platelets 123. Electrolytes show potassium of 2.8 slightly improved from her recent 2.6. Gap 7. BUN of 43 creatinine 1.28 consistent with her chronic renal insufficiency. Troponins 226 it has previously been much higher before and is typically abnormal. BNP 557 previously much higher. Chest x-ray chronic changes. Small left pleural effusion. Seen on prior. Venous blood gas shows a pH 7.38. pCO2 of 51. pO2 of 31. Sat 57% again this is a venous blood gas. Labs: Laboratory Results - last 24 hr 02/02/24 09:30 WBC 10.7 RBC 2.91 L Hgb 9.1 L Hct 27.3 L MCV 93.8 MCH 31.3 MCHC 33.3 RDW Std Deviation 54.9 H RDW Coeff of Nasir 16.1 H Plt Count 123 L MPV 11.4 Immature Gran % (Auto) 1.600 H Neut % (Auto) 94.1 H Lymph % (Auto) 2.4 L [place] % (Auto) 1.7 Eos % (Auto) 0.0 Baso % (Auto) 0.2 Absolute Neuts (auto) 10.1 H Absolute Lymphs (auto) 0.26 L Nucleated RBC % 0 Sodium 141 Potassium 2.8 L Chloride 105 Carbon Dioxide 29.0 Anion Gap 7 BUN 43 H Creatinine 1.28 H Estim Creat Clear Calc 41.48 Est GFR (MDRD) Af Amer 53 L Est GFR (MDRD) Non-Af 43 L BUN/Creatinine Ratio 33.6 H Glucose 330 H Calcium 8.6 Troponin I High Sens 226 H* B-Natriuretic Peptide 557.6 H ABG Data ABG results: ABG 02/02/24 09:37 Specimen Type ÁLVARO Sample Site Not entered VBG pH 7.39 VBG pO2 31 VBG HCO3 31 H VBG Total CO2 32 VBG O2 Sat (Calc) 58 VBG Base Excess 6 H POC Mix VBG pCO2 Pt Tmp 51.3 H O2 Delivery Device Not entered Clinical Comments [facility] Radiography Chest X-Ray - ED: 1 View, Read by ED Physician, Heart, Lungs, Mediastinum, Bony Structures, Chronic Changes and Left Effusion Diagnostic Testing: Clinical Impression(s) from Imaging Studies Chest X-Ray 02/02/24 09:47 IMPRESSION: 1. Improved left lower lung infiltrate. 2. Persistent small left pleural effusion. Electronically Signed: Ferny Ahn MD at 10:21 EDT , Chest x-ray, portable, single view interpreted by myself and the radiologist. Shows chronic changes. Small left pleural effusion. Seen on prior. Rhythm Strip Rhythm Strip: Junctional rhythm Rate: 69 Ectopy: PVC(s) EKG Initial EKG: Attestation: I personally reviewed and interpreted this EKG as follows: Interpretation: Junctional Comments: Junctional rhythm rate of 69 no acute signs of MA or ischemia. PVCs. Discharge Plan Triage Chief Complaint: Shortness of Breath ED Provider: Adi Steele Dx/Rx/DC Orders Clinical Impression: Acute dyspnea, COPD (chronic obstructive pulmonary disease) with emphysema, History of MA (myocardial infarction), History of heart failure Instructions: ED COPD Flare Prescriptions: No Action Breztri Aerosphere 160-9-4.8 mcg/actuation HFA aerosol inhaler 2 inh inhalation BID Qty: 10.7 6RF tramadol 50 MG tablet 50 mg PO DAILY PRN (Reason: Pain Score 1-10) oxybutynin chloride 5 MG tablet 5 - 10 mg PO BID hydroxychloroquine 200 MG tablet 200 mg PO BIDCM cholecalciferol (vitamin D3) 2,000 UNIT capsule 2,000 unit PO DAILY aspirin 81 mg Tablet,Chewable 81 mg PO DAILYCM Qty: 0 0RF atorvastatin 40 mg Tablet 40 mg PO QHS Qty: 30 0RF carvedilol 6.25 mg Tablet 6.25 mg PO BID Qty: 60 0RF lisinopril 10 mg Tablet 10 mg PO DAILY Qty: 30 0RF ciprofloxacin HCl [Cipro] 500 mg tablet 500 mg PO BID Qty: 14 0RF clopidogrel 75 mg Tablet 75 mg PO DAILY Qty: 0 0RF docusate sodium 100 mg Capsule 200 mg PO BID Qty: 0 0RF acetaminophen 325 mg Tablet 650 mg PO Q6H PRN PRN (Reason: Pain Score 1-10) Qty: 0 0RF ipratropium-albuterol 0.5 mg-3 mg(2.5 mg base)/3 mL Solution For Nebulization 3 ml inhalation Q6HWA.RT Qty: 0 0RF sucralfate 1 gram Tablet 1 g PO 1HR_ACHS Qty: 1 0RF Rx Instructions: Continue for 6 weeks then stop prednisone 20 mg Tablet 40 mg PO BREAKFAST Qty: 1 0RF Rx Instructions: Slow prednisone taper with 40 mg x 3 days, 30 mg x 4 days, 20 mg x 4 days, 10 mg x 4 days then stop pantoprazole 40 mg Tablet,Delayed Release (Dr/Ec) 40 mg PO BID Qty: 1 0RF Rx Instructions: Will need to take twice daily for 8 weeks then revert to 40 mg daily Primary Care Provider: Haritha Alonso Referrals: Haritha Alonso NP-C [Primary Care Provider] - Activity Restrictions/Additional Instructions: Patient to return back to the transitional care unit. BiPAP and aerosols as needed. Follow-up with Dr. Myles of the TCU. Print Language: Kazakh Disposition Disposition: [facility] Facility
[2024-02-02 09:41] LABS: Blood Gas Specimen Type VEN; Comment AVAPS; O2 Delivery Device Not entered; SITE Not entered; VBG BASE EXCESS 6 mmol/L (-1.0-3.5); VBG Bicarbonate 31 mmol/L (22-26); VBG PO2 31 mmHg (25-40); VBG SO2 58 % (50-70); VBG TCO2 32 mmol/L (23-33); VBG pCO2 51.3 mmHg (41-51); VBG pH 7.39 (7.32-7.42)
--- NOTE | 2024-02-02 09:47 | RAD_ITS ---
INDICATION: chest pain EXAMINATION/TECHNIQUE: X-RAY - XR Chest 1 View COMPARISON: Prior study dated: 01/27/2024 FINDINGS: LINES/DEVICES: Right internal jugular central venous catheter has been removed. LUNGS: Right apical stranding likely due to scarring. Improved left basilar infiltrate. Persistent small left pleural effusion. MEDIASTINUM AND CARDIOVASCULAR STRUCTURES: Stable cardiomediastinal silhouette. BONES AND SOFT TISSUES: Unremarkable. RAD/Chest 1 View (Portable) IMPRESSION: 1. Improved left lower lung infiltrate. 2. Persistent small left pleural effusion. Electronically Signed: Ferny Ahn MD at 10:21 EDT ,
[2024-02-02 09:48] LABS: Absolute Lymphocyte Count 0.26 X10^3/uL (0.83-4.51); Absolute Neutrophil Count 10.1 X10^3/uL (2.0-7.7); Basophil# 0.02 X10^3/uL; Basophil% 0.2 % (0-1); Hematocrit 27.3 % (37-47); Hemoglobin 9.1 g/dL (12.0-15.0); Lymphocyte # 0.26 X10^3/ul (0.83-4.51); Lymphocyte % 2.4 % (19-41); Mean Corp Hgb Conc 33.3 g/dL (32-36); Mean Corpuscular Hgb 31.3 pg (27.0-32.0); Mean Corpuscular Volume 93.8 fL (81-99); Mean Platelet Vol. 11.4 fl (6.2-12.0); Monocyte# 0.18 X10^3/uL; Monocyte% 1.7 % (0-10); NRBC Flagged by Analyzer 0 % (0-5); Neutrophil # 10.07 X10^3/uL (2.7-7.7); Neutrophil % 94.1 % (47-70); POSITIVE DIFFERENTIAL YES; Platelet Count 123 K/mm3 (150-450); RBC Distribution Width CV 16.1 % (11.6-14.6); RBC Distribution Width SD 54.9 fl (35.1-43.9); Red Blood Count 2.91 M/mm3 (4.2-5.4); White Blood Count 10.7 K/mm3 (4.4-11.0)
[2024-02-02 09:55] LABS: BNP,B-Type NATRIURETIC PEPTIDE 557.6 pg/mL (0-100)
[2024-02-02 10:06] LABS: Anion Gap 7 (5-15); BUN 43 mg/dL (7-18); BUN/Creat Ratio 33.6 RATIO (10-20); Calcium,Total 8.6 mg/dL (8.5-10.1); Chloride 105 mmol/L (98-107); Creatinine, Serum 1.28 mg/dL (0.55-1.02); EST Glomerular Filtration Rate 43 mL/min (>60); Est Glom Filt Rate - Afr Amer 53 mL/min (>60); Estimated Creatinine Clearance 41.48 ml/min; Glucose 330 mg/dL (74-106); Potassium 2.8 mmol/L (3.5-5.1); Sodium Level 141 mmol/L (136-145); Troponin-I HS 226 pg/mL (3.0-54.0)
--- NOTE | 2024-02-02 10:08 | NURSING ---
Call from lab, Troponin 226, dr. oden made aware
--- NOTE | 2024-02-02 16:08 | CPS ---
RT called by ER to come see patient. Family asked RT to place pt back on [facility] at this time
== END 2024-02-02 14:32 ==
PROVIDERS: Emergency Provider Emergency Medicine; PCP Nurse Practitioner Family; Visit Provider Emergency Medicine
DX: R06.00 Dyspnea, unspecified (principal); G20.A1 Parkinson's disease without dyskinesia, without mention of fluctuations; I11.0 Hypertensive heart disease with heart failure; I50.9 Heart failure, unspecified; J43.9 Emphysema, unspecified; I25.10 Atherosclerotic heart disease of native coronary artery without angina pectoris; Z99.81 Dependence on supplemental oxygen; Z79.01 Long term (current) use of anticoagulants; Z79.899 Other long term (current) drug therapy; I25.2 Old myocardial infarction; Z87.891 Personal history of nicotine dependence
CPT/HCPCS: 71045; 80048; 82803; 83880; 84484; 85025; 93005; 99283; A4216

== ENCOUNTER 2024-02-05 13:12 | Emergency (ER) | payer MEDICARE, SELFPAY ==
[2024-02-05 13:12] VITALS: PULSE 53; RESP 28; TEMP 36.4; O2SAT 96; BMI 34.1
[2024-02-05 13:21] VITALS: BP 94/61; PULSE 52; RESP 30; TEMP 36.4; O2SAT 100
--- NOTE | 2024-02-05 14:27 | EKG12_ITS ---
Test Reason : SOB Blood Pressure : */* mmHG Vent. Rate : 54 BPM Atrial Rate : 54 BPM P-R Int : 114 ms QRS Dur : 82 ms QT Int : 424 ms P-R-T Axes : 68 45 62 degrees QTcB Int : 402 ms Sinus bradycardia T wave abnormality, consider anterolateral ischemia Abnormal ECG Confirmed by MICHELLE REAGAN, TEMITOPE ([id number]), graphic editor RIK SCRUGGS ([id number]) on 02/07/2024 8:14:18 AM Referred By: TEN/LIZETH Confirmed By: TEMITOPE MARTINEZ MD
--- NOTE | 2024-02-05 14:29 | ED.VIS.DYS ---
HPI History of Present Illness Chief Complaint: Shortness of Breath Informant: patient, spouse/S.O. and family Narrative Narrative: Comes in today basically sent down from TCU for more somnolence and unresponsiveness. Few weeks ago was admitted for hypercapnic respiratory failure on a BiPAP. She has COPD chronic 3 L oxygen. Reports was hospitalized, she had over TCU. She was being treated for UTI, she had findings of a large kidney stone. She was transferred back to the hospital had lithotripsy and a stent, reported she had a cardiac arrest while on the floor. She is currently back in TCU for the last couple days. She wears BiPAP at night and anytime she takes a nap and as needed. Per family they were in the room, they walked out for little bit nursing was in the room. Reported she was more somnolent and unresponsive. She was placed back on the BiPAP. She was sent down here. Patient does report more dyspnea. Per family she seems harder to awaken. ABG was obtained up in TCU pH of 7.41 pCO2 35.9 PaO2 177. Prior similar symptoms: Yes PFSH PFSH Medical History Non-ST elevation MD (NSTEMI) GI bleed COVID-19 Acute MD Atherosclerosis of coronary artery of [place] heart without angina pectoris Staghorn renal calculus Urinary tract infection Gross hematuria Acute dehydration Skin tag History of left breast cancer RIGHT ANKLE FRACTURE REPAIR EXCISION STOMACH TUMOR Parkinson disease Mixed connective tissue disease Polyarthropathy Lupus Hypertension COPD (chronic obstructive pulmonary disease) Asthma Arthritis Pulmonary nodules/lesions, multiple Tobacco use disorder Breast pain Osteopenia Malignant neoplasm of central portion of female breast Low bone density Home Medications ?Medication ?Instructions ?Recorded ?Last Taken ?Type atropine 1 % eye drops 2 drp buccal DAILY secretion #15 mL 02/05/24 Unknown Rx lorazepam 2 mg/mL oral concentrate 1 mg (0.5 mL) sublingual Q4H PRN 02/05/24 Unknown Rx PRN Anxiety/Restlessness/Sleep 7 days #30 mL morphine 10 mg/5 mL oral solution 10 mg (5 mL) PO Q1H PRN dyspnea 7 02/05/24 Unknown Rx days #100 mL morphine concentrate 100 mg/5 mL 10 mg (0.5 mL) sublingual Q1H PRN 10/30/24 Unknown Rx (20 mg/mL) oral solution pain 7 days #30 mL Allergy/AdvReac Type Severity Reaction Status Date / Time bromide salts (bromide) AdvReac Hives Verified 01/22/24 13:12 strawberry AdvReac Hives Verified 01/22/24 13:12 Family History Mother Arthritis Diabetes Hypertension Osteoporosis Father Arthritis Heart disease Sister Arthritis Breast cancer Diabetes Hypertension Son Diabetes Other Alzheimer disease Anemia Hyperlipidemia Thyroid disorder Surgical History History of ureter stent History of lithotripsy History of coronary artery stent placement (01/07/24) History of lung biopsy History of tubal ligation History of lumpectomy Hx of cholecystectomy Social History household members: spouse Smoking Status: Former smoker alcohol intake: never substance use type: does not use ROS ROS ED ROS Narrative Limited conversation as patient is on a BiPAP Constitutional Constitutional ED: Denies chills, fever(s) or sweats ENT ENT ED: Denies dysphagia Cardiovascular Cardiovascular: Denies chest pain or palpitations Respiratory/Chest Respiratory/Chest: Reports dyspnea; Denies cough or dyspnea on exertion Gastrointestinal Gastrointestinal: Denies abdominal pain, diarrhea, nausea or vomiting EXAM Physical Exam Const Vital Signs: 02/05/24 13:12 02/05/24 13:12 02/05/24 13:21 Temperature 97.6 F L 97.6 F L Temperature Source Axillary Axillary Pulse Rate 53 L 52 L Respiratory Rate 28 H 30 H Respiratory Effort Short of Breath Labored Respiratory Pattern Tachypnea Blood Pressure 94/61 Blood Pressure Mean 72 Pulse Ox 96 100 Oxygen Delivery Method Bi-pap Bi-pap Bi-pap 02/05/24 14:44 02/05/24 15:53 Temperature 97.2 F L Temperature Source Pulse Rate 59 L 100 Respiratory Rate 32 H Respiratory Effort Respiratory Pattern Blood Pressure 107/93 H 136/78 H Blood Pressure Mean 97 97 Pulse Ox 98 Oxygen Delivery Method Positive well nourished Constitutional Narrative: BiPAP, no respiratory distress, moving all 4 extremities. HEENT Reports moist mucous membranes normocephalic and atraumatic Eyes EOMs intact bilaterally and conjunctivae normal General Eye ED: Yes normal appearance of both eyes Neck no lymphadenopathy and supple General: Negative for tenderness Chest Wall Chest: Negative for tenderness Resp normal respiratory effort and normal air movement Effort and Inspection: symmetric chest movement; Negative for respiratory distress Cardio regular rhythm and no murmurs Rate: bradycardia Peripheral Pulses: pulses 2+ throughout GI normal to inspection, nondistended, normoactive bowel sounds and non-tender Palpation: Negative for guarding or rebound tenderness present Back/Spine Negative for no CVA tenderness Extremity normal to inspection General Extremety ED: Negative for edema or tenderness General Extremity: Negative for edema Neuro Neuro Narrative: Following commands Sensorium / Orientation: awake and alert Skin no rashes or lesions noted and no wounds MDM MDM MDM Narrative Medical decision making narrative: Interventions / MDM: Differential diagnosis: Acute respiratory failure, DNR CC, plan for hospice care Diagnosis considered but do not suspect: N/A My EKG interpretation: Sinus bradycardia rate of 54, no acute changes Imaging independently reviewed and interpreted by myself: N/A External documents reviewed: N/A Test considered but not ordered:N/A ED course: Patient stable on a BiPAP. She is following some commands. She occasion close her eyes. Her ABG had a normal CO2. They concern for more somnolence than normal. EKG sinus bradycardia. Will check labs, urine, chest x-ray and CT brain. After discussion family came out in the room, they stated that patient wanted to see other family members. They asked if possibility of patient near . I discussed seems like she is more BiPAP dependent. Family understands. I told family discussed with the patient if patient does not want to continue with BiPAP and potential comfort means only. They were discussed with patient in the room. 1505: Shortly after workup initiated. Nursing had me come back to the room as family and patient had made a decision. Patient wanted no heroic measures. She did not want aggressive treatment. Hospice was contacted who will plan to meet her back in TCU. Laboratory studies were drawn and sent. No image studies. She is awake I spoke with her and she understands what she wants. Spouse and daughter is on board. Goal is for hospice evaluation in TCU and plan to have hospice back at home. TCU team was present who will accept her back awaiting hospice. DNRCC forms were filled and signed by myself. 1545: Lab work returned a troponin of 165. She has no chest pains 3 days ago troponin was 260. This is trending down. White count 17. Hemoglobin 6.5. Creatinine 1.29. Patient going to hospice when she goes back to TCU for comfort treatment. Re-evaluation: stable Disposition discussed with patient/family/significant other: Patient and family Case discussed with consulting clinician: TCU nurse This note was generated with too.me dictation software. It may contain incorrect words, spelling, and punctuation that were not noted in checking the note before signing. Lab Data Labs: Laboratory Results - last 24 hr 02/05/24 14:49 WBC 17.4 H RBC 2.07 L Hgb 6.5 L Hct 20.5 L MCV 99.0 D MCH 31.4 MCHC 31.7 L RDW Std Deviation 61.6 H RDW Coeff of Nasir 17.5 H Plt Count 161 MPV 10.7 Sodium 140 Potassium 3.4 L Chloride 110 H Carbon Dioxide 25.0 Anion Gap 5 BUN 54 H Creatinine 1.29 H Estim Creat Clear Calc 39.87 Est GFR (MDRD) Af Amer 52 L Est GFR (MDRD) Non-Af 43 L BUN/Creatinine Ratio 41.9 H Glucose 228 H Calcium 8.2 L Total Bilirubin 0.50 AST 11 L ALT 29 Alkaline Phosphatase 62 Troponin I High Sens 165 H* B-Natriuretic Peptide 300.1 H Total Protein 4.7 L Albumin 2.4 L Globulin 2.3 Albumin/Globulin Ratio 1.0 Discharge Plan Triage Chief Complaint: Shortness of Breath ED Provider: George Fan Dx/Rx/DC Orders Clinical Impression: Respiratory failure, DNR (do not resuscitate) Prescriptions: No Action lorazepam 2 mg/mL Concentrate 1 mg sublingual Q4H PRN PRN (Reason: Anxiety/Restlessness/Sleep) 7 Days Qty: 30 0RF morphine 10 mg/5 mL solution 10 mg PO Q1H PRN (Reason: dyspnea) 7 Days Qty: 100 0RF atropine 1 % drops 2 drp buccal DAILY Qty: 15 0RF morphine concentrate 100 mg/5 mL (20 mg/mL) solution 10 mg sublingual Q1H PRN (Reason: pain) 7 Days Qty: 30 0RF Rx Instructions: HOSPICE PATIENT. Primary Care Provider: Haritha Alonso Referrals: Haritha Alonso, EBONY-C [Primary Care Provider] - Activity Restrictions/Additional Instructions: You and family decide to go with hospice care. They will meet you back in TCU. Print Language: Maori Disposition Disposition: Inpatient Rehab Unit/Facility Discharge Location: [facility] Transitional Care Unit Discharge Date/Time: 02/05/24 15:54
[2024-02-05 14:44] VITALS: BP 107/93; PULSE 59
[2024-02-05 15:03] LABS: Hematocrit 20.5 % (37-47); Hemoglobin 6.5 g/dL (12.0-15.0); Mean Corp Hgb Conc 31.7 g/dL (32-36); Mean Corpuscular Hgb 31.4 pg (27.0-32.0); Mean Platelet Vol. 10.7 fl (6.2-12.0); Platelet Count 161 K/mm3 (150-450); RBC Distribution Width CV 17.5 % (11.6-14.6); RBC Distribution Width SD 61.6 fl (35.1-43.9); Red Blood Count 2.07 M/mm3 (4.2-5.4); White Blood Count 17.4 K/mm3 (4.4-11.0)
[2024-02-05 15:39] LABS: AST(SGOT) 11 U/L (15-37); Alanine Aminotransfer ALT/SGPT 29 U/L (13-56); Albumin, Serum 2.4 g/dL (3.2-5.0); Alkaline Phosphatase 62 U/L (45-117); Anion Gap 5 (5-15); BUN 54 mg/dL (7-18); BUN/Creat Ratio 41.9 RATIO (10-20); Calcium,Total 8.2 mg/dL (8.5-10.1); Chloride 110 mmol/L (98-107); Creatinine, Serum 1.29 mg/dL (0.55-1.02); EST Glomerular Filtration Rate 43 mL/min (>60); Est Glom Filt Rate - Afr Amer 52 mL/min (>60); Estimated Creatinine Clearance 39.87 ml/min; Globulin 2.3 g/dL (2.2-4.2); Glucose 228 mg/dL (74-106); Potassium 3.4 mmol/L (3.5-5.1); Protein, Total 4.7 g/dL (6.4-8.2); Sodium Level 140 mmol/L (136-145); Troponin-I HS 165 pg/mL (3.0-54.0)
[2024-02-05 15:53] VITALS: BP 136/78; PULSE 100; RESP 32; TEMP 36.2; O2SAT 98
[2024-02-05 16:06] LABS: BNP,B-Type NATRIURETIC PEPTIDE 300.1 pg/mL (0-100)
== END 2024-02-05 15:54 ==
PROVIDERS: Emergency Provider Emergency Medicine; PCP Nurse Practitioner Family; Visit Provider Emergency Medicine
DX: J96.90 Respiratory failure, unspecified, unspecified whether with hypoxia or hypercapnia (principal); G20.A1 Parkinson's disease without dyskinesia, without mention of fluctuations; J44.9 Chronic obstructive pulmonary disease, unspecified; Z66 Do not resuscitate; R00.1 Bradycardia, unspecified; I10 Essential (primary) hypertension; N20.0 Calculus of kidney; I25.10 Atherosclerotic heart disease of native coronary artery without angina pectoris; I25.2 Old myocardial infarction; Z79.899 Other long term (current) drug therapy; Z99.81 Dependence on supplemental oxygen; Z87.891 Personal history of nicotine dependence; Z95.5 Presence of coronary angioplasty implant and graft
CPT/HCPCS: 80053; 83880; 84484; 85027; 93005; 99283; A4216